=== PATIENT | female | born 1955 | race Caucasian/White ===

== ENCOUNTER 2023-04-04 15:34 | Emergency (ER) | payer MEDICARE, OTHER, SELFPAY ==
[2023-04-04 15:51] VITALS: BP 126/66; PULSE 80; RESP 18; TEMP 36.6; O2SAT 100; BMI 24.9
[2023-04-04 15:53] VITALS: BP 126/66; PULSE 68; RESP 17; O2SAT 100
--- NOTE | 2023-04-04 16:04 | XR_ITS ---
[address] [address] Patient Name: PRACHI WARD MRN: [id number] date: 1955 Sex: F Assigned Patient Location: ER Current Patient Location: ER Accession/Order Number: [id number] Exam Date: 04/04/2023 16:15 Report Date: 04/04/2023 16:43 At the request of: YASMINE FENTON Procedure: XR chest 1V EXAMINATION: XR chest 1V, , 04/04/2023 4:15 PM EDT INDICATION: Weakness HISTORY: Ordering Provider Reason for Exam: Weakness Technologist Note: Additional: COMPARISON: Chest x-ray 01/25/2023. TECHNIQUE: Chest x-ray: One view. FINDINGS: No pneumothorax, pleural effusion or focal airspace consolidation. Heart is normal in size. Bony thorax is unremarkable. IMPRESSION: No acute cardiopulmonary process. Electronically authenticated by: JIM REAVES Date: 04/04/2023 16:43
--- NOTE | 2023-04-04 16:04 | ECG_ITS ---
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
--- NOTE | 2023-04-04 16:05 | ED_ITS ---
HPI - Weakness General Chief complaint: Weakness Stated complaint: GENERAL WEAKNESS Time Seen by Provider: 04/04/23 15:54 Source: patient Mode of arrival: walk-in History of Present Illness HPI Narrative: patient is a 67-year-old female who presents to the emergency department for the evaluation of generalized weakness and feeling shaky for the last three days. She denies headache, visual changes, peripheral paresthesias. She states her muscles feel shaky. She has had no chest pain, shortness of breath, cough, congestion, fevers. She denies abdominal pain, vomiting. She was at a cookout and stated that she started to feel unwell. She had a non-STEMI three months ago and was transferred to [place], she did not have any stents or CABG performed. She was also started on oxygen by nasal cannula at that time. She wears 2 L of oxygen by nasal cannula chronically. per previous documentation from December of this year, patient was admitted to this facility for chronic obstructive pulmonary disease exacerbation, hyponatremia and sepsis and while admitted was found to have respiratory failure and non- STEMI, she was emergently intubated and sent to [facility] at that time. Related Data Home Medications Medication Instructions Recorded Confirmed aspirin 81 mg tablet,delayed 81 mg PO QDAY 04/04/23 04/04/23 release atorvastatin 20 mg tablet 20 mg PO .qhs 04/04/23 04/04/23 carvedilol 3.125 mg tablet 3.125 mg PO Q12H 04/04/23 04/04/23 dapagliflozin 5 mg tablet (Farxiga) 10 mg PO QDAY 04/04/23 04/04/23 sacubitril 24 mg-valsartan 26 mg 1 tab PO BID 04/04/23 04/04/23 tablet (Entresto) spironolactone 25 mg tablet 25 mg PO .qhs 04/04/23 04/04/23 Previous Rx's Medication Instructions Recorded ciprofloxacin HCl 500 mg tablet 500 mg PO BID 5 days #10 tabs 04/04/23 (Cipro) ondansetron 4 mg disintegrating 4 mg PO Q6H PRN nausea and 04/04/23 tablet vomiting #12 tabs Allergies Allergy/AdvReac Type Severity Reaction Status Date / Time No Known Drug Allergies Allergy Verified 04/04/23 15:50 Review of Systems ROS Constitutional Denies: fever or chills Ears, nose, mouth, and throat Denies: throat pain or neck pain Cardiovascular Denies: chest pain Respiratory Denies: shortness of breath or cough Gastrointestinal Denies: nausea or vomiting Musculoskeletal Reports: back pain Integumentary/Breast Denies: rash Neurological Denies: headache Psychiatric Reports: anxiety Allergic/Immunologic Denies: hives Exam Narrative Exam Narrative: Gen.: Awake, alert, in no distress Head: Normocephalic, atraumatic ENT: Moist mucous membranes Respiratory: No respiratory distress, lungs clear bilaterally Cardio: Regular rate and rhythm Gastrointestinal: Abdomen is soft, nondistended and nontender to palpation Extremities: Moves extremities equally Psych: Normal mood and affect Neuro: No focal neuro deficit Skin: Warm, dry, intact Constitutional Vital Signs - 24 hr 04/04/23 15:51 Temperature 97.9 F Pulse Rate [Monitor] 80 Respiratory Rate 18 Blood Pressure [Left Arm] 126/66 H Pulse Oximetry 100 Oxygen Delivery Method Nasal Cannula Course Vital Signs Vital signs: Vital Signs Temperature 97.9 F 04/04/23 15:51 Pulse Rate 80 04/04/23 15:51 Respiratory Rate 18 04/04/23 15:51 Blood Pressure 126/66 H 04/04/23 15:51 Pulse Oximetry 100 04/04/23 15:51 Oxygen Delivery Method Nasal Cannula 04/04/23 15:51 Temperature 97.9 F 04/04/23 15:51 Pulse Rate 80 04/04/23 15:51 Respiratory Rate 18 04/04/23 15:51 Blood Pressure 126/66 H 04/04/23 15:51 Pulse Oximetry 100 04/04/23 15:51 Oxygen Delivery Method Nasal Cannula 04/04/23 15:51 MDM - Weakness MDM Narrative Medical decision making narrative: patient was treated with IV fluids, Ativan with improvement. Lab studies show the patient has hyponatremia but not critical lab values, improved from previous. Her troponin, EKG are unremarkable and CT of the brain, chest x-ray show no evidence of acute process. Patient has a mild urinary tract infection which may account for her symptoms. She was visibly anxious as well and was given Ativan with improvement in the Emergency Room. She was instructed to follow-up with her PCP for further anxiety medication as needed. She will be startedd on Cipro, Zofran for urinary tract infection. Follow-up with PCP and return to the Emergency Room if symptoms change or worsen. Medical Records Attestation: I reviewed the patient's medical records. Lab Data Attestation: I reviewed the patient's lab results. Labs: Lab Results 04/04/23 04/04/23 04/04/23 Range/Units 16:00 16:19 17:40 WBC 8.8 (4.0-11.0) 10^3/uL RBC 3.75 L (4.20-5.40) 10^6/uL Hgb 9.0 L (12.0-16.0) g/dL Hct 29.0 L (36.0-48.0) % MCV 77.3 L (81.0-99.0) fL MCH 24.0 L (26.7-34.0) pg MCHC 31.0 (29.9-35.2) g/dL RDW 14.8 (11.0-15.0) % Plt Count 397 (150-450) 10^3/uL MPV 10.0 (9.5-13.5) fL Neut % (Auto) 60.2 (43.0-75.0) % Lymph % (Auto) 24.7 (20.5-60.0) % [place] % (Auto) 8.4 (1.7-12.0) % Eos % (Auto) 4.9 (0.9-7.0) % Baso % (Auto) 1.5 (0.2-2.0) % Neut # (Auto) 5.3 (1.4-6.5) 10^3/uL Lymph # (Auto) 2.2 (1.2-3.8) 10^3/uL [place] # (Auto) 0.7 (0.3-0.8) 10^3/uL Eos # (Auto) 0.4 (0.0-0.7) 10^3/uL Baso # (Auto) 0.1 (0.0-0.1) 10^3/uL Abs Immat Gran (auto) 0.03 (0.00-0.03) 10^3/uL Imm/Tot Granulo (auto) 0.3 (0.0-0.5) % Sodium 128 L (136-145) mmol/L Potassium 4.9 (3.5-5.1) mmol/L Chloride 96 L (98-107) mmol/L Carbon Dioxide 25.7 (21.0-32.0) mmol/L Anion Gap 11.2 BUN 13.0 (7.0-18.0) mg/dL Creatinine 0.99 (0.55-1.02) mg/dL Est GFR ( Amer) >60 (>=60) Est GFR (Non-Af Amer) 56 L (>=60) BUN/Creatinine Ratio 13.1 Glucose 100 (74-106) mg/dL Lactate 0.9 (0.4-2.0) mmol/L Calcium 9.3 (8.5-10.1) mg/dL Total Bilirubin 0.3 (0.2-1.0) mg/dL AST 25 (15-37) U/L ALT 63 H (14-59) U/L Alkaline Phosphatase 91 (46-116) U/L Troponin I High Sens 5.8 (4.0-51.3) pg/mL Total Protein 9.2 H (6.4-8.2) g/dL Albumin 3.1 L (3.4-5.0) g/dL Globulin 6.1 g/dL Albumin/Globulin Ratio 0.5 TSH 0.482 (0.358-3.740) uIU/mL Urine Color Lt. yellow (YELLOW) Urine Clarity Clear (CLEAR) Urine pH 6.0 (5.0-9.0) Ur Specific [place] <=1.005 A (1.005-1.025) Urine Protein Trace (NEG/TRACE) mg/dL Urine Glucose (UA) >=1000 A (NEGATIVE) mg/dL Urine Ketones Negative (NEGATIVE) mg/dL Urine Occult Blood Small A (NEGATIVE) Urine Nitrite Negative (NEGATIVE) Urine Bilirubin Negative (NEGATIVE) Urine Urobilinogen 0.2 (0.2-1.0) EU/dL Ur Leukocyte Esterase Negative (NEGATIVE) Urine RBC 2-5 A (0-2) #/HPF Urine WBC 2-5 A (NONE SEEN) #/HPF Ur Squamous Epith Cells Few A (NONE/RARE) #/LPF Urine Crystals None seen (None Seen) #/HPF Urine Bacteria Trace A (NONE SEEN) #/HPF Urine Casts None seen (NONE SEEN) #/LPF Urine Mucus None seen (NONE SEEN) Ur Culture Indicated? No Imaging Data CT scan - head: Attestation: I have reviewed the pertinent imaging results. Chest x-ray: Attestation: I have reviewed the pertinent imaging results. ECG Data Attestation: I personally reviewed and interpreted this ECG as follows: ECG interpretation date: 04/04/23 ECG interpretation time: 16:14 Discharge Plan Discharge Chief Complaint: Weakness Clinical Impression: Weakness, Acute UTI, Acute hyponatremia Patient Disposition: Home, Self-Care Time of Disposition Decision: 18:16 Condition: Good Prescriptions / Home Meds: New ciprofloxacin HCl [Cipro] 500 mg tablet 500 mg PO BID 5 Days Qty: 10 0RF ondansetron 4 mg tablet,disintegrating 4 mg PO Q6H PRN (Reason: nausea and vomiting) Qty: 12 0RF No Action aspirin 81 mg tablet,delayed release (DR/EC) 81 mg PO QDAY atorvastatin 20 mg tablet 20 mg PO .qhs carvedilol 3.125 mg tablet 3.125 mg PO Q12H Farxiga 5 mg tablet 10 mg PO QDAY spironolactone 25 mg tablet 25 mg PO .qhs Entresto 24-26 mg tablet 1 tab PO BID Instructions: Urinary Tract Infection in Women (ED), Hyponatremia (ED) Stand Alone Forms: Portal Instructions Referrals: BRIAN KIM [Primary Care Provider] - 1 week
--- NOTE | 2023-04-04 16:05 | CT_ITS ---
The [address] [address] Patient Name: PRACHI WARD MRN: [id number] date: 1955 Sex: F Assigned Patient Location: ER Current Patient Location: ER Accession/Order Number: [id number] Exam Date: 04/04/2023 16:15 Report Date: 04/04/2023 17:01 At the request of: YASMINE FENTON Procedure: CT head/brain wo con EXAMINATION: CT head/brain wo con, 04/04/2023 4:15 PM EDT HISTORY: Weakness COMPARISON: None. TECHNIQUE: CT scan of the head was performed without IV contrast. CT dose reduction technique was used, including Automated Exposure Control. FINDINGS: BRAIN PARENCHYMA/CSF SPACES: Ventricles are normal in size and configuration. Mild low density within the periventricular white matter suggestive of chronic small vessel ischemia. There is no hemorrhage, mass effect or midline shift. There are no other significant findings. PARANASAL SINUSES: There are air-fluid levels in the sphenoid sinuses bilaterally consistent with acute sinusitis. SKULL BASE AND CALVARIUM: Normal. EXTRACRANIAL SOFT TISSUES: Normal. IMPRESSION: 1. No acute intracranial abnormality. 2. Mild acute sphenoid sinusitis. Electronically authenticated by: FREDDY MORENO Date: 04/04/2023 17:01
[2023-04-04 16:18] LABS: Basophils Absolute Auto 0.1 10^3/uL (0.0-0.1); Basophils Percent Auto 1.5 % (0.2-2.0); Eosinophils Absolute Auto 0.4 10^3/uL (0.0-0.7); Eosinophils Percent Auto 4.9 % (0.9-7.0); Immature Granulocytes Abs Auto 0.03 10^3/uL (0.00-0.03); Immature Granulocytes Pct Auto 0.3 % (0.0-0.5); Lymphocytes Absolute Auto 2.2 10^3/uL (1.2-3.8); Lymphocytes Percent Auto 24.7 % (20.5-60.0); Mean Corpuscular Volume 77.3 fL (81.0-99.0); Monocytes Absolute Auto 0.7 10^3/uL (0.3-0.8); Monocytes Percent Auto 8.4 % (1.7-12.0); Neutrophils Absolute Auto 5.3 10^3/uL (1.4-6.5); Neutrophils Percent Auto 60.2 % (43.0-75.0); Platelet Count 397 10^3/uL (150-450); Red Blood Count 3.75 10^6/uL (4.20-5.40); Red Cell Distribution Width 14.8 % (11.0-15.0); White Blood Count 8.8 10^3/uL (4.0-11.0)
[2023-04-04 16:38] LABS: Alanine Aminotransferase 63 U/L (14-59); Albumin Globulin Ratio 0.5; Albumin Level 3.1 g/dL (3.4-5.0); Alkaline Phosphatase 91 U/L (46-116); Anion Gap 11.2; Aspartate Amino Transferase 25 U/L (15-37); BUN Creatinine Ratio 13.1; Bilirubin Total 0.3 mg/dL (0.2-1.0); Calcium 9.3 mg/dL (8.5-10.1); Carbon Dioxide 25.7 mmol/L (21.0-32.0); Chloride 96 mmol/L (98-107); Estimated GFR (African America >60 (>=60); Estimated GFR (Non-African Ame 56 (>=60); Globulin 6.1 g/dL; Glucose 100 mg/dL (74-106); Potassium 4.9 mmol/L (3.5-5.1); Sodium 128 mmol/L (136-145); Thyroid Stimulating Hormone 0.482 uIU/mL (0.358-3.740); Total Protein 9.2 g/dL (6.4-8.2); Troponin I High Sensitivity 5.8 pg/mL (4.0-51.3)
[2023-04-04 16:41] LABS: Lactate/Lactic Acid 0.9 mmol/L (0.4-2.0)
[2023-04-04] MEDS: LORAZEPAM 2 MG/ML 1 ML VIAL 0.5 MG IV (16:58)
[2023-04-04] MEDS: 0.9 % SODIUM CHLORIDE 1,000 ML 500 ML IV (16:58)
--- NOTE | 2023-04-04 17:42 | PC.NURSE ---
ua sent to lab
[2023-04-04 17:50] LABS: Bilirubin Urine NEGATIVE (NEGATIVE); Blood Urine SMALL (NEGATIVE); Clarity Urine CLEAR (CLEAR); Color Urine LT. YELLOW (YELLOW); Glucose Urine UA >=1000 mg/dL (NEGATIVE); Ketones Urine NEGATIVE (NEGATIVE); Leukocyte Esterase Urine NEGATIVE (NEGATIVE); Nitrite Urine NEGATIVE (NEGATIVE); Protein Urine TRACE mg/dL (NEG/TRACE); Specific Gravity Urine <=1.005 (1.005-1.025); Urobilinogen Urine 0.2 EU/dL (0.2-1.0)
[2023-04-04 17:51] LABS: Urine Microscopic Indicated YES
[2023-04-04 17:58] LABS: Bacteria Urine TRACE #/HPF (NONE SEEN); Mucus Urine NONE SEEN (NONE SEEN)
[2023-04-04 17:59] LABS: Cast Seen? NONE SEEN #/LPF (NONE SEEN); Crystals Seen? None Seen #/HPF (None Seen); Squamous Epithelial Cell Urine FEW #/LPF (NONE/RARE); Urine Culture Indicated NO
[2023-04-04] MEDS: CIPROFLOXACIN HCL 500 MG TABLET PO (18:42)
== END 2023-04-04 18:44 | disposition home or self-care (01) ==
PROVIDERS: Physician Assistant; Emergency Provider Emergency Medicine Emergency Medical Services; PCP Nurse Practitioner Family
DX: N39.0 Urinary tract infection, site not specified (principal); R53.1 Weakness; E87.1 Hypo-osmolality and hyponatremia; I25.2 Old myocardial infarction; Z99.81 Dependence on supplemental oxygen; J44.9 Chronic obstructive pulmonary disease, unspecified; Z79.82 Long term (current) use of aspirin; Z79.899 Other long term (current) drug therapy
CPT/HCPCS: 36415; 70450; 71045; 80053; 81003; 81015; 83605; 84443; 84484; 85025; 93005; 96374; 99285

== ENCOUNTER 2023-04-27 15:47 | Outpatient (OUT) | payer MEDICARE, OTHER, SELFPAY ==
[2023-04-27 16:13] LABS: Anion Gap 11.2; Calcium 9.6 mg/dL (8.5-10.1); Carbon Dioxide 27.8 mmol/L (21.0-32.0); Chloride 93 mmol/L (98-107); Estimated GFR (African America >60 (>=60); Estimated GFR (Non-African Ame >60 (>=60); Glucose 105 mg/dL (74-106); Sodium 127 mmol/L (136-145)
== END 2023-04-27 15:48 | disposition home or self-care (01) ==
LOC: LAB 15:49
PROVIDERS: PCP Nurse Practitioner Family; Visit Provider Internal Medicine Cardiovascular Disease
DX: I11.0 Hypertensive heart disease with heart failure (principal); I50.9 Heart failure, unspecified
CPT/HCPCS: 36415; 80048

== ENCOUNTER 2023-05-09 12:43 | Outpatient (OUT) | payer MEDICARE, OTHER, SELFPAY ==
--- NOTE | 2023-05-09 13:49 | CA_ITS ---
Patient: PRACHI WARD Exam Date: 05/09/2023 : 1955 Gender:F Ordering : MRS. ANTONIO DELGADO NP Admission #: [id number] Family : Order #: [id number] CLICK HERE TO VIEW EXAM ECHOCARDIOGRAM REPORT PROCEDURE: CA ECHO LIMITED INDICATIONS: Chronic systolic heart failure COMPARISON: None. DESCRIPTION: Limited ECHOCARDIOGRAM Real-time transthoracic echocardiography with 2D and M-mode performed. QUALITY: Technical quality was good. LEFT VENTRICLE: Normal chamber size. No left ventricular hypertrophy. Global left ventricular systolic function is normal. LV EF: Calculated left ventricular ejection fraction is 56% DIASTOLIC: ATRIAL SEPTUM: LEFT ATRIUM: Normal chamber size. RIGHT ATRIUM: Normal chamber size. RIGHT VENTRICLE: Normal chamber size. Normal right ventricular systolic function. TRICUSPID VALVE: Normal mobility and thickness. MITRAL VALVE: Normal mobility and thickness. AORTIC VALVE: Normal trileaflet appearance. Normal leaflet mobility. AORTIC ROOT: Normal diameter and appearance. PULMONIC VALVE: Normal thickness and mobility. PERICARDIUM: No evidence of pericardial effusion. IVC: Collapses with inspirations. Normal size. PLEURA: CONCLUSION: 1. Normal ventricular systolic function. LVEF is estimated at 55 to 60%. 2. No evidence of pericardial effusion. 3. Limited study performed with no Doppler interrogation of the valves as requested. Adult Echocardiography Procedure Report Left Ventricle LVEDD (3.7 - 5.6 cm): 4.73 cm LVESD (2.2 - 4.0 cm): 3.15 cm LVIVS thickness (0.6 - 1.2 cm): 0.96 cm LVPW thickness (0.5 - 1.0 cm): 0.77 cm LVOT Diameter 1.96 cm Left Ventricular Ejection Fraction: 56.39 % Left Atrium LA Volume Index (2D A2C): 29.03 ml/m2 Left Atrium Systolic Dimension: 4.24 cm Mitral Valve Right Ventricle RV Internal Diastolic Dimension: 3.38 cm Aorta AO Root Diam: 3.09 cm Ascending Ao Diam: 2.80 cm Aortic Valve Tricuspid Valve Pulmonic Valve Right Atrium Right Atrium Systolic Pressure: 30.92 ml, 30.92 ml Dictated by: Francisco Regalado M.D. on 05/09/2023 at 17:45 Approved by: Francisco Regalado M.D. on 05/09/2023 at 17:47
== END 2023-05-09 12:44 | disposition home or self-care (01) ==
LOC: CARD 12:43
PROVIDERS: PCP Nurse Practitioner Family; Visit Provider Nurse Practitioner Acute Care
DX: I50.22 Chronic systolic (congestive) heart failure (principal)
CPT/HCPCS: 93308; 93356

== ENCOUNTER 2023-06-27 14:32 | Outpatient (OUT) | payer MEDICARE, OTHER, SELFPAY ==
[2023-06-27 15:08] LABS: Hematocrit 24.4 % (36.0-48.0); Hemoglobin 7.3 g/dL (12.0-16.0); Mean Corpuscular HGB Conc 29.9 g/dL (29.9-35.2); Mean Corpuscular Hemoglobin 22.8 pg (26.7-34.0); Mean Corpuscular Volume 76.3 fL (81.0-99.0); Mean Platelet Volume 9.7 fL (9.5-13.5); Platelet Count 412 10^3/uL (150-450); Red Cell Distribution Width 14.6 % (11.0-15.0); White Blood Count 6.7 10^3/uL (4.0-11.0)
[2023-06-27 15:16] LABS: Anisocytosis 1+; Atypical Lymphocytes Abs Man 0.5; Basophils Abs Manual 0.06 10^3/uL (0.00-0.10); Eosinophils Absolute Manual 0.13 10^3/uL (0.00-0.70); Lymphocytes Absolute Manual 1.34 10^3/uL (1.20-3.80); Monocytes Absolute Manual 0.67 10^3/uL (0.30-0.80); Segmented Neut Absolute Manual 4.02 10^3/uL (1.4-6.5)
[2023-06-27 16:36] LABS: Alanine Aminotransferase 53 U/L (14-59); Albumin Globulin Ratio 0.5; Albumin Level 2.8 g/dL (3.4-5.0); Alkaline Phosphatase 95 U/L (46-116); Anion Gap 11.3; Aspartate Amino Transferase 9 U/L (15-37); BUN Creatinine Ratio 14.6; Bilirubin Total 0.3 mg/dL (0.2-1.0); Calcium 8.9 mg/dL (8.5-10.1); Carbon Dioxide 26.9 mmol/L (21.0-32.0); Chloride 93 mmol/L (98-107); Estimated GFR (African America >60 (>=60); Estimated GFR (Non-African Ame 58 (>=60); Glucose 110 mg/dL (74-106); Lactate Dehydrogenase 133 U/L (81-234); Potassium 4.2 mmol/L (3.5-5.1); Sodium 127 mmol/L (136-145); Total Protein 8.8 g/dL (6.4-8.2)
[2023-06-27 16:37] LABS: Percent Iron Saturation 6.4 %
[2023-11-20 13:42] LABS: Reticulocyte Count 0.94 % (0.60-3.10)
== END 2023-06-27 14:33 | disposition home or self-care (01) ==
LOC: LAB 14:34
PROVIDERS: PCP Nurse Practitioner Family; Visit Provider Internal Medicine
DX: N28.89 Other specified disorders of kidney and ureter (principal)
CPT/HCPCS: 36415; 80053; 82607; 82668; 82728; 82746; 83540; 83550; 83615; 85027; 85045

== ENCOUNTER 2023-07-18 11:41 | Outpatient (OUT) | payer MEDICARE, OTHER, SELFPAY ==
--- NOTE | 2023-07-18 11:47 | CT_ITS ---
The [address] [address] Patient Name: PRACHI WARD MRN: [id number] date: 1955 Sex: F Assigned Patient Location: CT Current Patient Location: CT Accession/Order Number: [id number] Exam Date: 07/18/2023 13:00 Report Date: 07/18/2023 13:52 At the request of: BARBARA MONTES DE OCA Procedure: CT abdomen pelvis w con CT abdomen pelvis w con, 07/18/2023 1:00 PM EDT INDICATION: Renal Mass N28.89 COMPARISON: There is no appropriate prior study for comparison. TECHNIQUE: Axial images of the abdomen were obtained after the administration of IV contrast. Multiplanar reformatted images were generated and reviewed as needed. Dose reduction techniques were achieved by using automated exposure control and/or adjustment of mA and/or kV according to patient size and/or use of iterative reconstruction technique. FINDINGS: Lungs: The base of lungs is clear. No pleural effusion is noted. Liver and gallbladder: The liver is unremarkable. No enlargement of intra or extrahepatic biliary ducts. There is distention of the gallbladder measuring approximately 13 cm craniocaudally with no evidence of adjacent fatty stranding, wall thickening or cholelithiasis. Genitourinary system: No hydronephrosis. No nephrolithiasis. There is a heterogeneous enhancing lesion within the mid to inferior portion of the right kidney measuring approximately 10.5 x 9.1 x 15 centimeter (AP, transverse, cc) highly suspicious for renal cell carcinoma. This mass extends to the right renal vein and into the IVC superiorly. No definite enhancing lesion within the inferior portion of the IVC in the delayed images is noted. No involvement of the left renal vein is noted. No definite adjacent lymphadenopathy. The uterus is unremarkable. Other solid abdominal organs: adrenal glands, pancreas, and spleen are unremarkable. The left adrenal gland is mildly thickened. Aorta: The infrarenal abdominal aorta is nonaneurysmal. Free fluid: There is no free fluid in the abdomen pelvis. Lymph node: No lymph node enlargement by size criteria is noted. Stomach and Bowel: Moderate hiatal hernia is noted. No abnormality of small or large bowel is noted. Bone: There is no suspicious osteolytic or osteoblastic lesion. Lumbar spine, and SI and femoral acetabular joints moderate degenerative changes are noted. There are subchondral cysts within the acetabulum bilaterally. CT/CT abdomen pelvis w con IMPRESSION: Large renal lesion with extension to the right renal vein and IVC highly suspicious for renal cell carcinoma. No adjacent lymphadenopathy is noted. The left renal vein is patent. Gallbladder distention without gallbladder wall thickening or adjacent inflammatory process. No cholelithiasis is noted. However, given the extensive extension of gallbladder, clinical correlation is advised for acalculus cholecystitis. Electronically authenticated by: KERI TOUSSAINT Date: 07/18/2023 13:52
== END 2023-07-18 11:42 | disposition home or self-care (01) ==
LOC: CT 11:41
PROVIDERS: PCP Nurse Practitioner Family; Visit Provider Internal Medicine
DX: N28.89 Other specified disorders of kidney and ureter (principal)
CPT/HCPCS: 74177; Q9967

== ENCOUNTER 2023-08-31 13:21 | Outpatient (OUT) | payer MEDICARE, OTHER, SELFPAY ==
--- NOTE | 2023-08-31 | ECG_ITS ---
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
[2023-08-31 14:13] LABS: Basophils Absolute Auto 0.1 10^3/uL (0.0-0.1); Basophils Percent Auto 1.4 % (0.2-2.0); Eosinophils Absolute Auto 0.2 10^3/uL (0.0-0.7); Eosinophils Percent Auto 2.3 % (0.9-7.0); Hematocrit 25.5 % (36.0-48.0); Hemoglobin 7.6 g/dL (12.0-16.0); Immature Granulocytes Abs Auto 0.03 10^3/uL (0.00-0.03); Immature Granulocytes Pct Auto 0.4 % (0.0-0.5); Lymphocytes Absolute Auto 1.4 10^3/uL (1.2-3.8); Lymphocytes Percent Auto 20.4 % (20.5-60.0); Mean Corpuscular HGB Conc 29.8 g/dL (29.9-35.2); Mean Corpuscular Hemoglobin 24.9 pg (26.7-34.0); Mean Corpuscular Volume 83.6 fL (81.0-99.0); Mean Platelet Volume 8.7 fL (9.5-13.5); Monocytes Absolute Auto 0.7 10^3/uL (0.3-0.8); Monocytes Percent Auto 10.1 % (1.7-12.0); Neutrophils Absolute Auto 4.6 10^3/uL (1.4-6.5); Neutrophils Percent Auto 65.4 % (43.0-75.0); Platelet Count 354 10^3/uL (150-450); Red Blood Count 3.05 10^6/uL (4.20-5.40); Red Cell Distribution Width 19.8 % (11.0-15.0)
[2023-08-31 14:14] LABS: Bilirubin Urine NEGATIVE (NEGATIVE); Blood Urine LARGE (NEGATIVE); Clarity Urine CLEAR (CLEAR); Color Urine LT. YELLOW (YELLOW); Glucose Urine UA NEGATIVE (NEGATIVE); Ketones Urine NEGATIVE (NEGATIVE); Leukocyte Esterase Urine SMALL (NEGATIVE); Nitrite Urine NEGATIVE (NEGATIVE); Protein Urine 100 mg/dL (NEG/TRACE); Specific Gravity Urine 1.015 (1.005-1.025); Urobilinogen Urine 0.2 EU/dL (0.2-1.0)
[2023-08-31 14:47] LABS: Alanine Aminotransferase 51 U/L (14-59); Albumin Globulin Ratio 0.5; Albumin Level 2.7 g/dL (3.4-5.0); Alkaline Phosphatase 102 U/L (46-116); Anion Gap 10.1; Aspartate Amino Transferase 28 U/L (15-37); BUN Creatinine Ratio 10.5; Bilirubin Total 0.3 mg/dL (0.2-1.0); Calcium 8.8 mg/dL (8.5-10.1); Chloride 94 mmol/L (98-107); Estimated GFR (African America >60 (>=60); Estimated GFR (Non-African Ame >60 (>=60); Globulin 5.8 g/dL; Glucose 106 mg/dL (74-106); Potassium 4.1 mmol/L (3.5-5.1); Sodium 128 mmol/L (136-145); Total Protein 8.5 g/dL (6.4-8.2)
== END 2023-08-31 13:22 | disposition home or self-care (01) ==
LOC: CARD 13:23
PROVIDERS: PCP Nurse Practitioner Family; Visit Provider Internal Medicine
DX: C64.9 Malignant neoplasm of unspecified kidney, except renal pelvis (principal)
CPT/HCPCS: 36415; 80053; 81003; 85025; 93005

== ENCOUNTER 2023-10-19 13:39 | Emergency (ER) | payer MEDICARE, OTHER, SELFPAY ==
[2023-10-19] VITALS (31 sets, daily range): BP systolic 126–175; BP diastolic 84–123; PULSE 100–140; RESP 12–27; TEMP 36.5; O2SAT 95–100; BMI 23.3
--- OUTSIDE RECORDS SUMMARY | 2023-10-19 13:53 | XMS_ITS | CCD ---
Author Name Unknown Address [address] [facility] [address] [place] [id number] Organization [facility] Care Team Providers Care Cable Tool Operator Name Role Phone Chantal Park Attending Unavailable JULIO, NEDRA Referring Unavailable Chantal Park Attending Unavailable CHRISTI, DR FREDDY Mcclendon Consulting Unavailable MISC, DR VERDIN Primary Care Unavailable CITLALI ., DOMINGA Attending Unavailable CITLALI ., DOMINGA Admitting Unavailable SAMSA ., ISMAEL Consulting Unavailable CITLALI ., DOMINGA Procedure Practitioner Unavailab le SAMSA ., ISMAEL Procedure Practitioner Unavailab le JEREMY ., JASON Consulting Unavailable RAKESH, STEPHANIE Consulting Unavailable FALVO, BASHIR Consulting Unavailable SISTER, BUCKY Consulting Unavailable JAVED, CHERRYER Consulting Unavailable CITLALI ., DOMINGA Consulting Unavailable FEIDER, ANTONY Consulting Unavailable MANASA HERNDON Consulting Unavailable MISC, DR VERDIN Admitting Unavailable MISC, DR VERDIN Attending Unavailable MISC, DR VERDIN Consulting Unavailable MISC, DR VERDIN Primary Care Unavailable MISC, DR VERDIN Admitting Unavailable MISC, DR VERDIN Attending Unavailable MISC, DR VERDIN Consulting Unavailable MISC, DR VERDIN Primary Care Unavailable DO Aries Chavez II Attending Provider Daniel, [facility] Primary Care Provider Self, Referral Referring Provider Unavailable DO Aries Chavez II Attending Provider Julio, [facility] Primary Care Provider Self, Referral Referring Provider Unavailable DO Aries Chavez II Attending Provider Julio, [facility] Primary Care Provider [phone] Self, Referral Referring Provider Unavailable Daniel, [facility] Primary Care Provider [phone] DO Aries Chavez II J Attending Provider Self, Referral Referring Provider Unavailable Self, Referral Referring Provider Unavailable Self, Referral Referring Provider Unavailable Nedra Perez Primary Care Unavailable Lennyfernando II, Aries Guzman Admitting Unavaila ble Adamowicz II, Aries Guzman Attending Unavaila ble Nedra Perez Primary Care Unavailable Lennyicz II, Aries Guzman Admitting Unavaila ble Adamowicz II, Aries Guzman Attending Unavaila ble Self, Referral Referring Unavailable MADDIE ANN Attending Unavailable ALI, GREENWOOD Referring Unavailable ALI, GREENWOOD Referring Unavailable ROBBI HENDERSON Referring Unavailable ALI, GREENWOOD Referring Unavailable ALI, GREENWOOD Referring Unavailable SAFI, ALEX Referring Unavailable ALI, GREENWOOD Referring Unavailable SELF, REFERRED Referring Unavailable SAFI, ALEX Admitting Unavailable DIANA MEYERS Attending Unavailable ALI, GREENWOOD Referring Unavailable ANTONIO DELGADO Attending Unavailable ALI, GREENWOOD Referring Unavailable PEDRO LUIS FRENCH Attending Unavailable ANTONIO DELGADO Attending Unavailable AMMY BRIDGES Attending Unavailable ANTONIO DELGADO Attending Unavailable Allergies Allergy Classification Reported Allergen(s) Allergy Type Date of Onset Reaction(s) Facility (8 sources) Erythromycin Drug Allergy 01-24-2023 Diarrhea [facility] Repository (1 source) Erythromycin Drug Allergy 09-12-2023 [facility] Repository (1 source) Erythromycin; Translations: [ERYTHROMYCIN] Drug Allergy 01-25-2023 [facility] Repository Medications Current Medications Medication Drug Class(es) Dates Sig (Normalized) Sig (Original) atorvastatin 20 mg oral tablet (7 sources) HMG-CoA Reductase Inhibitor Start: 06-21-2023 take 20 mg by mouth once daily at bedtime Atorvastatin Active 20 MG PO Daily at bedtime June 20, 2023 11:00pm axitinib 5 mg oral tablet (3 sources) Kinase Inhibitor Start: 09-07-2023 take 1 tablet by mouth twice daily Axitinib (Inlyta) 5 mg Tablet Active 5 MG PO Twice daily 60 September 07, 2023 12:00am escitalopram 5 mg oral tablet (7 sources) Serotonin Reuptake Inhibitor Start: 06-21-2023 take 5 mg by mouth once daily in the morning Escitalopram Oxalate Active 5 MG PO Every morning June 20, 2023 11:00pm famotidine 20 mg oral tablet (6 sources) Histamine-2 Receptor Antagonist Start: 07-31-2023 take 20 mg by mouth once daily Famotidine Active 20 MG PO Daily July 30, 2023 11:00pm 120 actuat formoterol fumarate 0.0048 mg/actuat / glycopyrrolate 0.009 mg/actuat metered dose inhaler (4 sources) beta2-Adrenergic Agonist Start: 08-28-2023 Glycopyrrolate-For moterol (Bevespi Aerosphere) 9-4.8 mcg Hfa Aerosol Inhaler Active 2 PUFF INHALATION Twice daily August 28, 2023 12:00am 24 hr metoprolol succinate 25 mg extended release oral tablet (7 sources) beta-Adrenergic [place] Start: 06-21-2023 Metoprolol Succinate Active 25 MG PO As Directed June 20, 2023 11:00pm Tiotropium-Olodaterol (6 sources) Anticholinergic, beta2-Adrenergic Agonist Start: 07-31-2023 Tiotropium-Olodate rol (Stiolto Respimat) 2.5-2.5 mcg/actuation Mist Active 2 PUFF INHALATION Daily July 30, 2023 11:00pm Start: 07-31-2023 Tiotropium-Olo daterol (Stiolto Respimat) 2.5-2.5 mcg/actuation Mist Active 2 PUFF INHALATION Daily July 31, 2023 12:00am pantoprazole 40 mg delayed release oral tablet (7 sources) Proton Pump Inhibitor Start: 06-21-2023 take 40 mg by mouth once daily Pantoprazole Active 40 MG PO Daily June 20, 2023 11:00pm sacubitril 24 mg / valsartan 26 mg oral tablet (7 sources) Angiotensin 2 Receptor [place] Start: 06-21-2023 take 1 tablet by mouth twice daily Sacubitril-Valsarta n (Entresto) 24-26 mg tablet Active 1 TAB PO Twice daily June 20, 2023 11:00pm spironolactone 25 mg oral tablet (7 sources) Aldosterone Antagonist Start: 06-21-2023 Spironolactone Active 12.5 MG PO As Directed June 20, 2023 11:00pm sulfamethoxazole 800 mg / trimethoprim 160 mg oral tablet (8 sources) Dihydrofolate Reductase Inhibitor Antibacterial, Sulfonamide Antimicrobial Start: 09-19-2023 take 1 tablet by mouth twice daily Sulfamethoxazole-Tr imethoprim (Bactrim Ds) 800-160 mg Tablet Active 1 TAB PO Twice daily September 19, 2023 12:00am Start: 07-31-2023 End: 09-12-2023 take 1 tablet by mouth twice daily Sulfamethoxazole-Trimethoprim (Bactrim D s) 800-160 mg Tablet Discontinued 1 TAB PO Twice daily July 30, 2023 11:00pm September 12, 2023 12:50pm Completed/Discontinued Medications Medication Drug Class(es) Dates Sig (Normalized) Sig (Original) loratadine 10 mg oral tablet (7 sources) Start: 06-21-2023 End: 06-23-2023 take 10 mg by mouth once daily Loratadine Discontinued 10 MG PO Daily June 20, 2023 11:00pm June 23, 2023 12:28pm Problems Active Problems Problem Classification Problem Date Documented Date Episodic/Chronic Acute myocardial infarction (1 source) Non-ST elevation (NSTEMI) myocardial infarction; Translations: [NON-ST ELEVATION MYOCARDIAL INFARCT] Onset: 02-02-2023 Chronic Allergic reactions (1 source) Allergy status to other antibiotic agents status; Translations: [ALLERGY STATUS OTH ANTIBIOTIC AGENT] Onset: 02-02-2023 Episodic Anxiety disorders (1 source) Anxiety disorder, unspecified; Translations: [ANXIETY DISORDER UNSPECIFIED] Onset: 02-02-2023 Chronic Cancer of kidney and renal pelvis (4 sources) Clear cell carcinoma of kidney; Translations: [Malignant neoplasm of unspecified kidney, except renal pelvis] 09-05-2023 Chronic Cardiac dysrhythmias (1 source) Tachycardia, unspecified; Translations: [TACHYCARDIA UNSPECIFIED] Onset: 02-02-2023 Episodic Chronic obstructive pulmonary disease and bronchiectasis (2 sources) Chronic obstructive pulmonary disease with (acute) exacerbation; Translations: [Chronic obstructive pulmonary disease with (acute) lower respiratory infection] Onset: 02-02-2023 Chronic Congestive heart failure; nonhypertensive (13 sources) Acute on chronic systolic (congestive) heart failure; Translations: [Acute systolic (congestive) heart failure] Onset: 01-25-2023 Chronic Coronary atherosclerosis and other heart disease (4 sources) Atherosclerotic heart disease of [place] coronary artery without angina pectoris; Translations: [Acute ischemic heart disease, unspecified] Onset: 01-25-2023 Chronic Deficiency and other anemia (1 source) Iron deficiency anemia secondary to blood loss (chronic); Translations: [Iron deficiency anemia secondary to blood loss (chronic)] Onset: 10-05-2023 Chronic Deficiency and other anemia (10 sources) Iron deficiency anemia; Translations: [Iron deficiency anemia, unspecified] 2023 Episodic Deficiency and other anemia (2 sources) Iron deficiency anemia, unspecified; Translations: [Iron deficiency anemia, unspecified] Onset: 10-05-2023 10-05-2023 Episodic Essential hypertension (2 sources) Essential (primary) hypertension; Translations: [Essential (primary) hypertension] Onset: 01-25-2023 Chronic Fluid and electrolyte disorders (3 sources) Hypo-osmolality and hyponatremia; Translations: [Hyponatremia] Onset: 02-02-2023 10-05-2023 Episodic Hypertension with complications and secondary hypertension (2 sources) Hypertensive heart disease with heart failure; Translations: [Hypertensive heart disease with heart failure] Onset: 10-12-2023 Chronic Maintenance chemotherapy; radiotherapy (2 sources) Patient encounter status; Translations: [Encounter for antineoplastic chemotherapy] 10-05-2023 Chronic Nausea and vomiting (1 source) Nausea; Translations: [NAUSEA] Onset: 02-02-2023 Episodic Other diseases of kidney and ureters (7 sources) Renal mass; Translations: [Other specified disorders of kidney and ureter] Onset: 07-26-2023 07-11-2023 Chronic Other diseases of kidney and ureters (8 sources) Other specified disorders of kidney and ureter; Translations: [Unspecified disorder of kidney and ureter] Onset: 05-18-2023 07-31-2023 Chronic Other diseases of kidney and ureters (1 source) Other specified disorders of kidney and ureter; Translations: [Other specified disorders of kidney and ureter] Onset: 08-22-2023 Episodic Other upper respiratory infections (1 source) Acute upper respiratory infection, unspecified; Translations: [ACUTE UP RESPIRATORY INFECTION UNS] Onset: 02-02-2023 Episodic Pneumonia (except that caused by tuberculosis or sexually transmitted disease) (1 source) Parainfluenza virus pneumonia; Translations: [PARAINFLUENZA VIRUS PNEUMONIA] Onset: 02-02-2023 Episodic Residual codes; unclassified (1 source) Family history of ischemic heart disease and other diseases of the circulatory system; Translations: [FAM HX ISCHEMIC HRT DZ OTH DZ CIRC] Onset: 02-02-2023 Episodic Residual codes; unclassified (1 source) Family history of diabetes mellitus; Translations: [FAMILY HISTORY OF DIABETES MELLITUS] Onset: 02-02-2023 Episodic Residual codes; unclassified (1 source) Family history of epilepsy and other diseases of the nervous system; Translations: [FAM HX EPILEPSY OTH DZ NERV SYS] Onset: 02-02-2023 Episodic Residual codes; unclassified (1 source) Family history of other infectious and parasitic diseases; Translations: [FAM HX OTH INFECTIOUS PARASITIC DZ] Onset: 02-02-2023 Episodic Septicemia (except in labor) (3 sources) Other specified sepsis; Translations: [OTHER SPECIFIED SEPSIS] Onset: 01-24-2023 Episodic Shock (1 source) Cardiogenic shock; Translations: [CARDIOGENIC SHOCK] Onset: 02-02-2023 Episodic Substance-related disorders (1 source) Nicotine dependence, cigarettes, uncomplicated; Translations: [NICOTINE DEPEND CIGARETTES UNCOMP] Onset: 02-02-2023 Chronic Tuberculosis (1 source) Personal history of tuberculosis; Translations: [PERSONAL HISTORY OF TUBERCULOSIS] Onset: 02-02-2023 Episodic Unclassified (1 source) OTHER ACIDOSIS; Translations: [OTHER ACIDOSIS] Onset: 02-02-2023 Unclassified (1 source) CONTACT W/AND (SUSP) EXPOS COVID-19; Translations: [CONTACT W/AND (SUSP) EXPOS COVID-19] Onset: 02-02-2023 Past or Other Problems Problem Classification Problem Date Documented Da te Episodic/Chronic Other lower respiratory disease (2 sources) Other forms of dyspnea; Translations: [Other forms of dyspnea] Onset: 01-25-2023 Episodic Respiratory failure; insufficiency; arrest (adult) (6 sources) Acute respiratory failure with hypoxia; Translations: [Acute respiratory failure with hypercapnia] Onset: 01-25-2023 Episodic Viral infection (3 sources) Other viral agents as the cause of diseases classified elsewhere; Translations: [Other viral infections of unspecified site] Onset: 01-25-2023 Episodic Results Test Name Value Interpretation Reference Range Facility Office Visiton 10-12-2023 Follow-up visit [id number] FredPerla A 1955 F Date Provider Department Center 10/12/2023 PEDRO LUIS RIVERA [facility] Family History Problem Relation Age of Onset Tuberculosis Mother Heart attack Brother Heart failure Maternal Grandmother Heart attack Maternal Grandfather Family Status - Relation Status Age at Mother Brother Maternal Grandmother Maternal Grandfather Level of Service:38931 MS OFFICE/OUTPATIENT ESTABLISHED LOW MDM 20 MIN Reason for Visit and Comments: Congestive Heart Failure [127] Coronary Artery Disease [187] Hypertension [728789] Normal [facility] Ferritinon 10-05-2023 Ferritin [Mass/Vol] 994.8 ng/mL High 11.0-306.8 [facility] Comment on above: Result Comment: PERF ORMED BY: [place] [address] PATHOLOGIST [employer] ARCHITECT STEFANO HOLT M.D. Performed By: #### F ER, CBC, CMP, FE and TIBC #### [facility] [address] [place] [id number] [facility] Ferritin [Mass/volume] in Se rum or PlasmaOrdered By: Vannessa Perales on 10-05-2023 Ferritin [Mass/Vol] 994.8 ng/mL 11.0-306.8 [facility] Iron [Mass/volume] in Serum or PlasmaOrdered By: Vannessa Perales on 10-05-2023 Iron [Mass/Vol] 26 ug/dL 50-212 [facility] Iron and TIBC Profileon % Iron Saturation 10.9 % Low 20-50 [facility] Comment on above: Performed By: #### F ER, CBC, CMP, FE and TIBC #### [facility] [address] [id number] [facility] Iron [Mass/Vol] 26 ug/dL Low 50-212 [facility] Comment on above: Performed By: #### F ER, CBC, CMP, FE and TIBC #### [facility] [address] [place] [address] [facility] Total Iron Binding Capacity 239 ug/dL Low 255-450 [facility] Comment on above: Performed By: #### F ER, CBC, CMP, FE and TIBC #### [address] Transferrin [Mass/Vol] 171 mg/dL Low 203-362 [facility] Comment on above: Performed By: #### F ER, CBC, CMP, FE and TIBC #### [place] [id number] [facility] Iron binding capacity [Mass/ volume] in Serum or PlasmaOrdered By: Vannessa Perales on 10-05-2023 Iron binding capacity [Mass/Vol] 239 ug/dL 255-450 [facility] Iron saturation [Mass Fracti on] in Serum or PlasmaOrdered By: Vannessa Perales on 10-05-2023 Iron saturation [Mass fraction] 10.9 % 20-50 [facility] Transferrin [Mass/volume] in Serum or PlasmaOrdered By: Vannessa Perales on 10-05-2023 Transferrin [Mass/Vol] 171 mg/dL 203-362 [facility] Adrenocorticotropic Hormone PLon 10-04-[address] 25.4 pg/mL Normal 7.2-63.3 [facility] Comment on above: Result Comment: ACTH reference interval for samples collected between 7 and 10 AM. Performed at: - [address] [id number] Credit Risk Manager: Juan Hendricks PhD, Phone: [phone] PERFORMED BY: [place] [address] PATHOLOGIST [employer] ARCHITECT STEFANO HOLT M.D. Performed By: #### F ER, CBC, CMP, FE and TIBC #### [address] Alanine aminotransferase [En zymatic activity/volume] in Serum or PlasmaOrdered By: Aries Chavez on 10-04-2023 ALT [Catalytic activity/Vol] 67 U/L 7-52 [facility] Albumin [Mass/volume] in Ser um or Plasma by Bromocresol green (BCG) dye binding methoOrdered By: Aries Chavez on 10-04-2023 Albumin BCG dye [Mass/Vol] 3.4 g/dL 3.5-5.7 [facility] Alkaline phosphatase [Enzyma tic activity/volume] in Serum or PlasmaOrdered By: Aries Chavez on 10-04-2023 ALP [Catalytic activity/Vol] 113 U/L 34-104 [facility] Aspartate aminotransferase [ Enzymatic activity/volume] in Serum or PlasmaOrdered By: Aries Chavez on 10-04-2023 AST [Catalytic activity/Vol] 22 U/L 13-39 [facility] Basophils Auto (Bld) [#/Vol] Ordered By: Aries Chavez on 10-04-2023 Basophils (Bld) [#/Vol] 0.1 10*3/uL 0.0-0.2 [facility] Basophils/100 WBC Auto (Bld) Ordered By: Aries Chavez on 10-04-2023 Basophils/100 WBC (Bld) 2.3 % . [facility] Bilirubin.total [Mass/volume ] in Serum or PlasmaOrdered By: Aries Chavez on 10-04-2023 Bilirubin [Mass/Vol] 0.3 mg/dL 0.3-1.0 [facility] Calcium [Mass/volume] in Ser um or PlasmaOrdered By: Aries Chavez on 10-04-2023 Calcium [Mass/Vol] 8.9 mg/dL 8.6-10.3 [facility] Carbon dioxide, total [Moles /volume] in Serum or PlasmaOrdered By: Aries Chavez on 10-04-2023 CO2 [Moles/Vol] 26.2 mmol/L 21.0-31.0 [facility] Chloride [Moles/volume] in S leena or PlasmaOrdered By: Aries Chavez on 10-04-2023 Chloride [Moles/Vol] 94 mmol/L 98-107 [facility] Complete Blood Count Auto Di ffon 10-04-2023 Basophils (Bld) [#/Vol] 0.1 10*3/uL Normal 0.0-0.2 [facility] Comment on above: Result Comment: PERF ORMED BY: [place] [address] PATHOLOGIST [employer] ARCHITECT STEFANO HOLT M.D. Performed By: #### F ER, CBC, CMP, FE and TIBC #### [address] Basophils/100 WBC (Bld) 2.3 % Normal . [facility] Comment on above: Performed By: #### F ER, CBC, CMP, FE and TIBC #### [address] Eosinophils (Bld) [#/Vol] 0.2 10*3/uL Normal 0.0-0.45 [facility] Comment on above: Performed By: #### F ER, CBC, CMP, FE and TIBC #### [address] Eosinophils/100 WBC (Bld) 2.8 % Normal . [facility] Comment on above: Performed By: #### F ER, CBC, CMP, FE and TIBC #### [address] Erythrocyte distribution width (RBC) [Ratio] 18.4 % High 11.9-15.3 [facility] Comment on above: Performed By: #### F ER, CBC, CMP, FE and TIBC #### [address] Hematocrit (Bld) [Volume fraction] 26.2 % Low 34.0-46.4 [facility] Comment on above: Performed By: #### F ER, CBC, CMP, FE and TIBC #### [address] Hemoglobin (Bld) [Mass/Vol] 8.4 g/dL Low 11.8-15.4 [facility] Comment on above: Performed By: #### F ER, CBC, CMP, FE and TIBC #### [place] [address] [place] Lymphocytes (Bld) [#/Vol] 1.2 10*3/uL Normal 1.00-4.8 [facility] Comment on above: Performed By: #### F ER, CBC, CMP, FE and TIBC #### [address] Lymphocytes/100 WBC (Bld) 21.7 % Normal . [facility] Comment on above: Performed By: #### F ER, CBC, CMP, FE and TIBC #### [address] MCH (RBC) [Entitic mass] 25.3 pg Normal 24.7-34.3 [facility] Comment on above: Performed By: #### F ER, CBC, CMP, FE and TIBC #### [address] MCV (RBC) [Entitic vol] 79.1 fL Low 80-100 [facility] Comment on above: Performed By: #### F ER, CBC, CMP, FE and TIBC #### [address] Mean Corpuscular HGB Conc 32.0 g/dL Normal 32.0-35.0 [facility] Comment on above: Performed By: #### F ER, CBC, CMP, FE and TIBC #### [address] Monocytes (Bld) [#/Vol] 0.7 10*3/uL Normal 0.0-0.8 [facility] Comment on above: Performed By: #### F ER, CBC, CMP, FE and TIBC #### [address] Monocytes/100 WBC (Bld) 11.5 % Normal . [facility] Comment on above: Performed By: #### F ER, CBC, CMP, FE and TIBC #### [address] Neutrophils (Bld) [#/Vol] 3.6 10*3/uL Normal 1.8-7.7 [facility] Comment on above: Performed By: #### F ER, CBC, CMP, FE and TIBC #### [address] Neutrophils/100 WBC (Bld) 61.7 % Normal . [facility] Comment on above: Performed By: #### F ER, CBC, CMP, FE and TIBC #### [address] NRBC% 0.1 /100{WBC} Normal 0-0.5 [facility] Comment on above: Performed By: #### F ER, CBC, CMP, FE and TIBC #### [address] Platelet mean volume (Bld) [Entitic vol] 6.8 fL Normal 6.3-10.7 [facility] Comment on above: Performed By: #### F ER, CBC, CMP, FE and TIBC #### [address] Platelets (Bld) [#/Vol] 404 10*3/uL Normal 150-450 [facility] Comment on above: Performed By: #### F ER, CBC, CMP, FE and TIBC #### [address] RBC (Bld) [#/Vol] 3.32 10*6/uL Low 3.60-5.00 [facility] Comment on above: Performed By: #### F ER, CBC, CMP, FE and TIBC #### [address] WBC (Bld) [#/Vol] 5.8 10*3/uL Normal 3.8-11.6 [facility] Comment on above: Performed By: #### F ER, CBC, CMP, FE and TIBC #### [address] Comprehensive Metabolic Pane onesimo 10-04-2023 Albumin [Mass/Vol] 3.4 g/dL Low 3.5-5.7 [facility] Comment on above: Performed By: #### F ER, CBC, CMP, FE and TIBC #### [facility] [address] Albumin/Globulin [Mass ratio] 0.8 {ratio} Normal [facility] Comment on above: Performed By: #### F ER, CBC, CMP, FE and TIBC #### [facility] [address] ALP [Catalytic activity/Vol] 113 U/L High 34-104 [facility] Comment on above: Performed By: #### F ER, CBC, CMP, FE and TIBC #### [facility] [address] ALT [Catalytic activity/Vol] 67 U/L High 7-52 [facility] Comment on above: Performed By: #### F ER, CBC, CMP, FE and TIBC #### [facility] [address] [place] [address] Anion gap [Moles/Vol] 9.5 mmol/L Normal 6.0-15.0 [facility] Comment on above: Performed By: #### F ER, CBC, CMP, FE and TIBC #### [facility] [address] [place] [address] AST [Catalytic activity/Vol] 22 U/L Normal 13-39 [facility] Comment on above: Performed By: #### F ER, CBC, CMP, FE and TIBC #### [facility] [address] Bilirubin [Mass/Vol] 0.3 mg/dL Normal 0.3-1.0 [facility] Comment on above: Performed By: #### F ER, CBC, CMP, FE and TIBC #### [facility] [address] Calcium [Mass/Vol] 8.9 mg/dL Normal 8.6-10.3 [facility] Comment on above: Performed By: #### F ER, CBC, CMP, FE and TIBC #### [address] Chloride [Moles/Vol] 94 mmol/L Low 98-107 [facility] Comment on above: Performed By: #### F ER, CBC, CMP, FE and TIBC #### [facility] [address] CO2 [Moles/Vol] 26.2 mmol/L Normal 21.0-31.0 [facility] Comment on above: Performed By: #### F ER, CBC, CMP, FE and TIBC #### [facility] [address] Creatinine [Mass/Vol] 0.75 mg/dL Normal 0.60-1.20 [facility] Comment on above: Performed By: #### F ER, CBC, CMP, FE and TIBC #### [facility] [address] Creatinine Clr Calc Pharmacy 59.72 [facility] Comment on above: Result Comment: PERF ORMED BY: [place] [address] PATHOLOGIST [employer] ARCHITECT STEFANO HOLT M.D. Performed By: #### F ER, CBC, CMP, FE and TIBC #### [address] GFR/1.73 sq M.predicted MDRD (S/P/Bld) [Vol rate/Area] mL/min/{1.73_m2} [facility] Comment on above: Performed By: #### F ER, CBC, CMP, FE and TIBC #### [address] Globulin (S) [Mass/Vol] 4.5 g/dL [facility] Comment on above: Performed By: #### F ER, CBC, CMP, FE and TIBC #### [facility] [address] Glucose [Mass/Vol] 101 mg/dL High 70-100 [facility] Comment on above: Result Comment: [place] Glucose Reference Range is dependent on time and content of last meal. Glucose of more than 200 mg/dL in a nonstressed, ambulatory subject supports the diagnosis of Diabetes Mellitus. ADA recommended reference range Performed By: #### F ER, CBC, CMP, FE and TIBC #### [address] Potassium [Moles/Vol] 4.7 mmol/L Normal 3.5-5.1 [facility] Comment on above: Performed By: #### F ER, CBC, CMP, FE and TIBC #### [address] Protein [Mass/Vol] 7.9 g/dL Normal 6.4-8.9 [facility] Comment on above: Performed By: #### F ER, CBC, CMP, FE and TIBC #### [address] Sodium [Moles/Vol] 125 mmol/L Low 136-145 [facility] Comment on above: Performed By: #### F ER, CBC, CMP, FE and TIBC #### [address] Urea nitrogen [Mass/Vol] 17 mg/dL Normal 7-25 [facility] Comment on above: Performed By: #### F ER, CBC, CMP, FE and TIBC #### [address] Cortisolon 10-04-2023 Cortisol 12.2 ug/dL Normal [facility] Comment on above: Result Comment: Refe rence range: AM 6 - 24 ug/dl PM <10 ug/dl [facility] Laboratory supply assistant and method: AMRITA UNICEL DXI, POLYCLONAL ANTIBODY CORTISOL ASSAY. PERFORMED BY: [place] [address] PATHOLOGIST [employer] ARCHITECT STEFANO HOLT M.D. Performed By: #### F ER, CBC, CMP, FE and TIBC #### [address] Creatinine [Mass/volume] in Serum or PlasmaOrdered By: Aries Chavez on 10-04-2023 Creatinine [Mass/Vol] 0.75 mg/dL 0.60-1.20 [facility] Eosinophils Auto (Bld) [#/Vo l]Ordered By: Aries Chavez on 10-04-2023 Eosinophils (Bld) [#/Vol] 0.2 10*3/uL 0.0-0.45 [facility] Eosinophils/100 WBC Auto (Bl d)Ordered By: Aries Chavez on 10-04-2023 Eosinophils/100 WBC (Bld) 2.8 % . [facility] Erythrocyte distribution wid th Auto (RBC) [Ratio]Ordered By: Aries Chavez on 10-04-2023 Erythrocyte distribution width (RBC) [Ratio] 18.4 % 11.9-15.3 [facility] Free T4 (Free Thyroxine)on 0 10-04-2023 Free T4 [Mass/Vol] 1.00 ng/dL Normal 0.61-1.12 [facility] Comment on above: Performed By: #### C ORT, T4F, TSH3 #### [facility] [address] #### ACTH #### [facility] , Globulin Calc (S) [Mass/Vol] Ordered By: Aries Chavez on 10-04-2023 Globulin (S) [Mass/Vol] 4.5 g/dL [facility] Glucose [Mass/volume] in Ser um or PlasmaOrdered By: Aries Chavez on 10-04-2023 Glucose [Mass/Vol] 101 mg/dL 70-100 [facility] Comment on above: ADA recommended refe rence rangeRandom Glucose Reference Range is dependent on time and content of last meal. Glucose of more than 200 mg/dL in a nonstressed, ambulatory subject supports the diagnosis of Diabetes Mellitus. Hematocrit Auto (Bld) [Volum e fraction]Ordered By: Aries Chavez on 10-04-2023 Hematocrit (Bld) [Volume fraction] 26.2 % 34.0-46.4 [facility] Hemoglobin [Mass/volume] in BloodOrdered By: Aries Chavez on 10-04-2023 Hemoglobin (Bld) [Mass/Vol] 8.4 g/dL 11.8-15.4 [facility] Leukocytes [#/volume] correc gabriel for nucleated erythrocytes in Blood by Automated counOrdered By: Aries Chavez on 10-04-2023 WBC corrected for nucl RBC Auto (Bld) [#/Vol] 5.8 10*3/uL 3.8-11.6 [facility] Lymphocytes Auto (Bld) [#/Vo l]Ordered By: Aries Chavez on 10-04-2023 Lymphocytes (Bld) [#/Vol] 1.2 10*3/uL 1.00-4.8 [facility] Lymphocytes/100 WBC Auto (Bl d)Ordered By: Aries Chavez on 10-04-2023 Lymphocytes/100 WBC (Bld) 21.7 % . [facility] MCH Auto (RBC) [Entitic mass ]Ordered By: Aries Chavez on 10-04-2023 MCH (RBC) [Entitic mass] 25.3 pg 24.7-34.3 [facility] MCHC Auto (RBC) [Mass/Vol]Or dered By: Aries Chavez on 10-04-2023 MCHC (RBC) [Mass/Vol] 32.0 g/dL 32.0-35.0 [facility] MCV Auto (RBC) [Entitic vol] Ordered By: Aries Chavez on 10-04-2023 MCV (RBC) [Entitic vol] 79.1 fL 80-100 [facility] Monocytes Auto (Bld) [#/Vol] Ordered By: Aries Chavez on 10-04-2023 Monocytes (Bld) [#/Vol] 0.7 10*3/uL 0.0-0.8 [facility] Monocytes/100 WBC Auto (Bld) Ordered By: Aries Chavez on 10-04-2023 Monocytes/100 WBC (Bld) 11.5 % . [facility] Neutrophils Auto (Bld) [#/Vo l]Ordered By: Aries Chavez on 10-04-2023 Neutrophils (Bld) [#/Vol] 3.6 10*3/uL 1.8-7.7 [facility] Neutrophils/100 WBC Auto (Bl d)Ordered By: Aries Chavez on 10-04-2023 Neutrophils/100 WBC (Bld) 61.7 % . [facility] No Panel InformationOrdered By: Aries Chavez on 10-04-2023 Adrenocorticotropic Hormone 25.4 pg/mL 7.2-63.3 [facility] Comment on above: ACTH reference inter wendy for samples collected between 7 and10 AM.Performed at: [facility] [address] [id number] Director: Juan Hendricks PhD, Phone: [phone] Estimated GFR (CKD-EPI) > 60.0 mL/Min [facility] Creatinine Clearance (Chem 59.72 [facility] Nucleated erythrocytes [Pres ence] in Blood by Automated countOrdered By: Aries Chavez on 10-04-2023 Nucleated RBC Auto Ql (Bld) 0.1 /100{WBC} 0-0.5 [facility] Platelet mean volume Auto (B ld) [Entitic vol]Ordered By: Aries Chavez on 10-04-2023 Platelet mean volume (Bld) [Entitic vol] 6.8 fL 6.3-10.7 [facility] Platelets Auto (Bld) [#/Vol] Ordered By: Aries Chavez on 10-04-2023 Platelets (Bld) [#/Vol] 404 10*3/uL 150-450 [facility] Potassium [Moles/volume] in Serum or PlasmaOrdered By: Aries Chavez on 10-04-2023 Potassium [Moles/Vol] 4.7 mmol/L 3.5-5.1 [facility] Protein [Mass/volume] in Ser um or PlasmaOrdered By: Aries Chavez on 10-04-2023 Protein [Mass/Vol] 7.9 g/dL 6.4-8.9 [facility] RBC Auto (Bld) [#/Vol]Ordere d By: Aries Chavez on 10-04-2023 RBC (Bld) [#/Vol] 3.32 10*6/uL 3.60-5.00 [facility] Random cortisol measurementO rdered By: Aries Chavez on 10-04-2023 Cortisol [Mass/Vol] 12.2 ug/dL [facility] Comment on above: [facility] Laboratory supply assistant and method:Vanu CoverageEL DXI, POLYCLONAL ANTIBODY CORTISOL ASSAY.Reference range: AM 6 - 24 ug/dl PM <10 ug/dl Serum or plasma albumin/glob ulin mass ratioOrdered By: Aries Chavez on 10-04-2023 Albumin/Globulin [Mass ratio] 0.8 {ratio} [facility] Serum or plasma anion gap de terminationOrdered By: Aries Chavez on 10-04-2023 Anion gap [Moles/Vol] 9.5 mmol/L 6.0-15.0 [facility] Sodium [Moles/volume] in Ser um or PlasmaOrdered By: Aries Chavez on 10-04-2023 Sodium [Moles/Vol] 125 mmol/L 136-145 [facility] Thyroid Stimulating Hormoneo n 10-04-2023 TSH Qn 1.03 m[IU]/L Normal 0.45-5.33 [facility] Comment on above: Performed By: #### C ORT, T4F, TSH3 #### [address] #### ACTH #### [facility] , Thyrotropin [Units/volume] i n Serum or PlasmaOrdered By: Aries Chavez on 10-04-2023 TSH Qn 1.03 m[IU]/L 0.45-5.33 [facility] Thyroxine (T4) free [Mass/vo lume] in Serum or PlasmaOrdered By: Aries Chavez on 10-04-2023 Free T4 [Mass/Vol] 1.00 ng/dL 0.61-1.12 [facility] Urea nitrogen [Mass/volume] in Serum or PlasmaOrdered By: Aries Chavez on 10-04-2023 Urea nitrogen [Mass/Vol] 17 mg/dL 7-25 [facility] WBC Auto (Bld) [#/Vol]Ordere d By: Aries Chavez on 10-04-2023 WBC (Bld) [#/Vol] 5.8 10*3/uL 3.8-11.6 [facility] Adrenocorticotropic Hormone PLon 09-12-[address] 33.9 pg/mL Normal 7.2-63.3 [facility] Comment on above: Result Comment: ACTH reference interval for samples collected between 7 and 10 AM. Performed at: - [facility] [id number] Credit Risk Manager: Juan Hendricks PhD, Phone: [phone] PERFORMED BY: [place] [address] PATHOLOGIST [employer] ARCHITECT STEFANO HOLT M.D. Performed By: #### F ER, CBC, CMP, FE and TIBC #### [facility] [address] [address] Anisocytosis LM Ql (Bld)Orde red By: Aries Chavez on 09-12-2023 Anisocytosis Ql (Bld) Moderate [facility] Automated erythrocytes count in urine sediment (number/area)Ordered By: Aries Chavez on 09-12-2023 RBC Auto (Urine sed) [#/Area] 5-9 [HPF] 0-4 [facility] Automated leukocytes count i n urine sediment (number/area)Ordered By: Aries Chavez on 09-12-2023 WBC Auto (Urine sed) [#/Area] 5-9 [HPF] 0-4 [facility] Bilirubin Test strip Ql (U)O rdered By: Aries Chavez on 09-12-2023 Bilirubin Ql (U) Negative Negative [facility] Color Auto (U)Ordered By: Gregorio Chavez on 09-12-2023 Color (U) Yellow Yellow [facility] Comprehensive Metabolic Pane onesimo 09-12-2023 Albumin [Mass/Vol] 3.4 g/dL Low 3.5-5.7 [facility] Comment on above: Performed By: #### F ER, CBC, CMP, FE and TIBC #### [facility] [address] [place] [address] Albumin/Globulin [Mass ratio] 0.8 {ratio} Normal [facility] Comment on above: Performed By: #### F ER, CBC, CMP, FE and TIBC #### [address] ALP [Catalytic activity/Vol] 89 U/L Normal 34-104 [facility] Comment on above: Performed By: #### F ER, CBC, CMP, FE and TIBC #### [address] ALT [Catalytic activity/Vol] 43 U/L Normal 7-52 [facility] Comment on above: Performed By: #### F ER, CBC, CMP, FE and TIBC #### [address] Anion gap [Moles/Vol] 8.3 mmol/L Normal 6.0-15.0 [facility] Comment on above: Performed By: #### F ER, CBC, CMP, FE and TIBC #### [address] AST [Catalytic activity/Vol] 14 U/L Normal 13-39 [facility] Comment on above: Performed By: #### F ER, CBC, CMP, FE and TIBC #### [address] Bilirubin [Mass/Vol] 0.3 mg/dL Normal 0.3-1.0 [facility] Comment on above: Performed By: #### F ER, CBC, CMP, FE and TIBC #### [address] Calcium [Mass/Vol] 9.1 mg/dL Normal 8.6-10.3 [facility] Comment on above: Performed By: #### F ER, CBC, CMP, FE and TIBC #### [address] Chloride [Moles/Vol] 95 mmol/L Low 98-107 [facility] Comment on above: Performed By: #### F ER, CBC, CMP, FE and TIBC #### [facility] [address] CO2 [Moles/Vol] 28.4 mmol/L Normal 21.0-31.0 [facility] Comment on above: Performed By: #### F ER, CBC, CMP, FE and TIBC #### [facility] [address] Creatinine [Mass/Vol] 0.68 mg/dL Normal 0.60-1.20 [facility] Comment on above: Performed By: #### F ER, CBC, CMP, FE and TIBC #### [facility] [address] Creatinine Clr Calc Pharmacy 59.72 [facility] Comment on above: Result Comment: PERF ORMED BY: [place] [address] PATHOLOGIST [employer] ARCHITECT STEFANO HOLT M.D. Performed By: #### F ER, CBC, CMP, FE and TIBC #### [facility] [address] GFR/1.73 sq M.predicted MDRD (S/P/Bld) [Vol rate/Area] mL/min/{1.73_m2} [facility] Comment on above: Performed By: #### F ER, CBC, CMP, FE and TIBC #### [address] Globulin (S) [Mass/Vol] 4.5 g/dL [facility] Comment on above: Performed By: #### F ER, CBC, CMP, FE and TIBC #### [facility] [address] Glucose [Mass/Vol] 97 mg/dL Normal 70-100 [facility] Comment on above: Result Comment: [place] Glucose Reference Range is dependent on time and content of last meal. Glucose of more than 200 mg/dL in a nonstressed, ambulatory subject supports the diagnosis of Diabetes Mellitus. ADA recommended reference range Performed By: #### F ER, CBC, CMP, FE and TIBC #### [facility] [address] Potassium [Moles/Vol] 4.7 mmol/L Normal 3.5-5.1 [facility] Comment on above: Performed By: #### F ER, CBC, CMP, FE and TIBC #### [facility] [address] Protein [Mass/Vol] 7.9 g/dL Normal 6.4-8.9 [facility] Comment on above: Performed By: #### F ER, CBC, CMP, FE and TIBC #### [facility] [address] Sodium [Moles/Vol] 127 mmol/L Low 136-145 [facility] Comment on above: Performed By: #### F ER, CBC, CMP, FE and TIBC #### [address] Urea nitrogen [Mass/Vol] 13 mg/dL Normal 7-25 [facility] Comment on above: Performed By: #### F ER, CBC, CMP, FE and TIBC #### [address] Cortisolon 09-12-2023 Cortisol 14.6 ug/dL Normal [facility] Comment on above: Result Comment: Refe rence range: AM 6 - 24 ug/dl PM <10 ug/dl PERFORMED BY: [place] [address] PATHOLOGIST [employer] ARCHITECT STEFANO HOLT M.D. Performed By: #### F ER, CBC, CMP, FE and TIBC #### [facility] [address] Dipstick and Microscopicon 1 11-13-2022 Appearance (U) Clear Normal Clear [facility] Comment on above: Order Comment: Name Collection Type:: Voided Performed By: #### F ER, CBC, CMP, FE and TIBC #### [facility] [address] Bacteria,Urine None Seen Normal None Seen [facility] Comment on above: Order Comment: Name Collection Type:: Voided Performed By: #### F ER, CBC, CMP, FE and TIBC #### [facility] [address] [place] [address] [place] Bilirubin,Urine Negative Normal Negative [facility] Comment on above: Order Comment: Name Collection Type:: Voided Performed By: #### F ER, CBC, CMP, FE and TIBC #### [facility] [address] [address] Color (U) Yellow Normal Yellow [facility] Comment on above: Order Comment: Name Collection Type:: Voided Performed By: #### F ER, CBC, CMP, FE and TIBC #### [address] Glucose Ql (U) Normal Normal Normal [facility] Comment on above: Order Comment: Name Collection Type:: Voided Performed By: #### F ER, CBC, CMP, FE and TIBC #### [address] Hyaline Casts,Urine 0-8 Normal 0-8 [facility] Comment on above: Order Comment: Name Collection Type:: Voided Performed By: #### F ER, CBC, CMP, FE and TIBC #### [address] Ketones Ql (U) Negative Normal Negative [facility] Comment on above: Order Comment: Name Collection Type:: Voided Performed By: #### F ER, CBC, CMP, FE and TIBC #### [facility] [address] [address] Leukocyte esterase Test strip Ql (U) 2+ High Negative [facility] Comment on above: Order Comment: Name Collection Type:: Voided Performed By: #### F ER, CBC, CMP, FE and TIBC #### [facility] [address] [place] [address] Nitrite,Urine Negative Normal Negative [facility] Comment on above: Order Comment: Name Collection Type:: Voided Performed By: #### F ER, CBC, CMP, FE and TIBC #### [address] Occult Blood,Urine 2+ High Negative [facility] Comment on above: Order Comment: Name Collection Type:: Voided Result Comment: PERF ORMED BY: [place] [address] PATHOLOGIST [employer] ARCHITECT STEFANO HOLT M.D. Performed By: #### F ER, CBC, CMP, FE and TIBC #### [address] pH (U) 6.0 [pH] Normal 5.0-9.0 [facility] Comment on above: Order Comment: Name Collection Type:: Voided Performed By: #### F ER, CBC, CMP, FE and TIBC #### [address] Protein (U) [Mass/Vol] 100 mg/dL High Negative [facility] Comment on above: Order Comment: Name Collection Type:: Voided Performed By: #### F ER, CBC, CMP, FE and TIBC #### [address] RBC,Urine 5-9 High 0-4 [facility] Comment on above: Order Comment: Name Collection Type:: Voided Performed By: #### F ER, CBC, CMP, FE and TIBC #### [address] Specificy [place],Urine 1.012 Normal 1.001-1.030 [facility] Comment on above: Order Comment: Name Collection Type:: Voided Performed By: #### F ER, CBC, CMP, FE and TIBC #### [address] Squamous Epithelial Cell,Urine None Seen Normal 0-2 [facility] Comment on above: Order Comment: Name Collection Type:: Voided Performed By: #### F ER, CBC, CMP, FE and TIBC #### [address] Urobilinogen,Urine Normal Normal Normal [facility] Comment on above: Order Comment: Name Collection Type:: Voided Performed By: #### F ER, CBC, CMP, FE and TIBC #### [facility] [address] WBC,Urine 5-9 High 0-4 [facility] Comment on above: Order Comment: Name Collection Type:: Voided Performed By: #### F ER, CBC, CMP, FE and TIBC #### [facility] [address] Yeast,Urine None Seen Normal None Seen [facility] Comment on above: Order Comment: Name Collection Type:: Voided Result Comment: PERF ORMED BY: [place] [address] PATHOLOGIST [employer] ARCHITECT STEFANO HOLT M.D. Performed By: #### F ER, CBC, CMP, FE and TIBC #### [facility] [address] [address] Free T4 (Free Thyroxine)on 1 11-13-2022 Free T4 [Mass/Vol] 1.12 ng/dL Normal 0.61-1.12 [facility] Comment on above: Performed By: #### F ER, CBC, CMP, FE and TIBC #### [facility] [address] [place] [address] Hypochromia LM Ql (Bld)Order ed By: Aries Chavez on 09-12-2023 Hypochromia Ql (Bld) Moderate [facility] Ketones Auto test strip (U) [Mass/Vol]Ordered By: Aries Chavez on 09-12-2023 Ketones (U) [Mass/Vol] Negative Negative [facility] Laboratory - UrinalysisOrder ed By: Aries Chavez on 09-12-2023 Hyaline casts LM Ql (Urine sed) 0-8 [LPF] 0-8 [facility] Microcytes LM Ql (Bld)Ordere d By: Aries Chavez on 09-12-2023 Microcytes Ql (Bld) Slight [facility] Nitrite Test strip Ql (U)Ord ered By: Aries Chavez on 09-12-2023 Nitrite Ql (U) Negative Negative [facility] No Panel InformationOrdered By: Aries Chavez on 09-12-2023 Adrenocorticotropic Hormone 33.9 pg/mL 7.2-63.3 [facility] Comment on above: ACTH reference inter wendy for samples collected between 7 and10 AM.Performed at: - [facility] [id number] Director: Juan Hendricks PhD, Phone: [phone] Ovalocyte detectionOrdered B y: Aries Chavez on 09-12-2023 Ovalocytes LM Ql (Bld) Slight [facility] Platelet adequacy [Presence] in Blood by Light microscopyOrdered By: Aries Chavez on 09-12-2023 Platelets LM Ql (Bld) Normal Normal [facility] Platelet morphology finding [Identifier] in BloodOrdered By: Aries Chavez on 09-12-2023 Platelet morphology finding Nom (Bld) Normal Normal [facility] Poikilocytosis [Presence] in Blood by Light microscopyOrdered By: Aries Chavez on 09-12-2023 Poikilocytosis LM Ql (Bld) Slight [facility] Polychromasia [Presence] in Blood by Light microscopyOrdered By: Aries Chavez on 09-12-2023 Polychromasia LM Ql (Bld) Slight [facility] Protein Auto test strip (U) [Mass/Vol]Ordered By: Aries Chavez on 09-12-2023 Protein (U) [Mass/Vol] 100 mg/dL Negative [facility] RBC morphologyOrdered By: Gregorio Chavez on 09-12-2023 RBC morphology finding Nom (Bld) N/A [facility] Scan and CBCon 09-12-2023 Anisocytosis Ql (Bld) Moderate Normal [facility] Comment on above: Performed By: #### F ER, CBC, CMP, FE and TIBC #### [facility] [address] Basophils (Bld) [#/Vol] 0.1 10*3/uL Normal 0.0-0.2 [facility] Comment on above: Performed By: #### F ER, CBC, CMP, FE and TIBC #### [address] Basophils/100 WBC (Bld) 2.3 % Normal . [facility] Comment on above: Performed By: #### F ER, CBC, CMP, FE and TIBC #### [address] Eosinophils (Bld) [#/Vol] 0.1 10*3/uL Normal 0.0-0.45 [facility] Comment on above: Performed By: #### F ER, CBC, CMP, FE and TIBC #### [address] Eosinophils/100 WBC (Bld) 1.8 % Normal . [facility] Comment on above: Performed By: #### F ER, CBC, CMP, FE and TIBC #### [address] Erythrocyte distribution width (RBC) [Ratio] 20.8 % High 11.9-15.3 [facility] Comment on above: Performed By: #### F ER, CBC, CMP, FE and TIBC #### [address] Hematocrit (Bld) [Volume fraction] 25.0 % Low 34.0-46.4 [facility] Comment on above: Performed By: #### F ER, CBC, CMP, FE and TIBC #### [address] Hemoglobin (Bld) [Mass/Vol] 8.1 g/dL Low 11.8-15.4 [facility] Comment on above: Performed By: #### F ER, CBC, CMP, FE and TIBC #### [address] Hypersegmented Neutrophils Slight Normal [facility] Comment on above: Performed By: #### F ER, CBC, CMP, FE and TIBC #### [address] Hypochromasia Moderate Normal [facility] Comment on above: Performed By: #### F ER, CBC, CMP, FE and TIBC #### [address] Lymphocytes (Bld) [#/Vol] 1.3 10*3/uL Normal 1.00-4.8 [facility] Comment on above: Performed By: #### F ER, CBC, CMP, FE and TIBC #### [address] Lymphocytes/100 WBC (Bld) 21.2 % Normal . [facility] Comment on above: Performed By: #### F ER, CBC, CMP, FE and TIBC #### [address] MCH (RBC) [Entitic mass] 25.6 pg Normal 24.7-34.3 [facility] Comment on above: Performed By: #### F ER, CBC, CMP, FE and TIBC #### [address] MCV (RBC) [Entitic vol] 79.0 fL Low 80-100 [facility] Comment on above: Performed By: #### F ER, CBC, CMP, FE and TIBC #### [address] Mean Corpuscular HGB Conc 32.4 g/dL Normal 32.0-35.0 [facility] Comment on above: Performed By: #### F ER, CBC, CMP, FE and TIBC #### [address] Microcytosis Slight Normal [facility] Comment on above: Performed By: #### F ER, CBC, CMP, FE and TIBC #### [address] Monocytes (Bld) [#/Vol] 0.7 10*3/uL Normal 0.0-0.8 [facility] Comment on above: Performed By: #### F ER, CBC, CMP, FE and TIBC #### [address] Monocytes/100 WBC (Bld) 11.7 % Normal . [facility] Comment on above: Performed By: #### F ER, CBC, CMP, FE and TIBC #### [address] Neutrophils (Bld) [#/Vol] 3.9 10*3/uL Normal 1.8-7.7 [facility] Comment on above: Performed By: #### F ER, CBC, CMP, FE and TIBC #### [address] Neutrophils/100 WBC (Bld) 63.0 % Normal . [facility] Comment on above: Performed By: #### F ER, CBC, CMP, FE and TIBC #### [address] NRBC% 0.1 /100{WBC} Normal 0-0.5 [facility] Comment on above: Performed By: #### F ER, CBC, CMP, FE and TIBC #### [address] Ovalocytes Slight Normal [facility] Comment on above: Performed By: #### F ER, CBC, CMP, FE and TIBC #### [address] Platelet Estimate Normal Normal Normal [facility] Comment on above: Performed By: #### F ER, CBC, CMP, FE and TIBC #### [address] Platelet mean volume (Bld) [Entitic vol] 7.5 fL Normal 6.3-10.7 [facility] Comment on above: Performed By: #### F ER, CBC, CMP, FE and TIBC #### [address] Platelet Morphology Normal Normal Normal [facility] Comment on above: Result Comment: PERF ORMED BY: [place] [address] PATHOLOGIST [employer] ARCHITECT STEFANO HOLT M.D. Performed By: #### F ER, CBC, CMP, FE and TIBC #### [address] Platelets (Bld) [#/Vol] 395 10*3/uL Normal 150-450 [facility] Comment on above: Performed By: #### F ER, CBC, CMP, FE and TIBC #### [address] Poikilocytosis Slight Normal [facility] Comment on above: Performed By: #### F ER, CBC, CMP, FE and TIBC #### [address] Polychromasia Slight Normal [facility] [facility] Comment on above: Performed By: #### F ER, CBC, CMP, FE and TIBC #### [address] RBC (Bld) [#/Vol] 3.17 10*6/uL Low 3.60-5.00 [facility] Comment on above: Performed By: #### F ER, CBC, CMP, FE and TIBC #### [address] WBC (Bld) [#/Vol] 6.2 10*3/uL Normal 3.8-11.6 [facility] Comment on above: Performed By: #### F ER, CBC, CMP, FE and TIBC #### [address] Specific gravity Auto test s trip (U) [Rel density]Ordered By: Aries Chavez on 09-12-2023 Specific gravity (U) [Rel density] 1.012 1.001-1.030 [facility] Squamous epithelial cells de tection in urine sediment by light microscopyOrdered By: Aries Chavez on 09-12-2023 Epithelial cells.squamous LM Ql (Urine sed) None seen [HPF] 0-2 [facility] Thyroid Stimulating Hormoneo n 09-12-2023 TSH Qn 0.90 m[IU]/L Normal 0.45-5.33 [facility] Comment on above: Performed By: #### F ER, CBC, CMP, FE and TIBC #### [facility] [address] [place] [address] [place] Urine Cultureon 09-12-2023 Bacteria identified Cx Nom (U) 30,000 colonies/ml mixed bacterial skin contaminants 2 Days PERFORMED BY: [place] [address] PATHOLOGIST [employer] ARCHITECT STEFANO HOLT M.D. [facility] Comment on above: Performed By: #### F ER, CBC, CMP, FE and TIBC #### [facility] [address] Urine bacteria detection by automated methodOrdered By: Aries Chavez on 09-12-2023 Bacteria Auto Ql (U) None seen None Seen [facility] Urine clarity by refractomet ry automatedOrdered By: Aries Chavez on 09-12-2023 Clarity Refractometry automated (U) Clear Clear [facility] Urine culture routineOrdered By: Aries Chavez on 09-12-2023 Bacteria identified Cx Nom (U) 2 Days [facility] Urine glucose measurement by automated test strip (mass/volume)Ordered By: Aries Chavez on 09-12-2023 Glucose Auto test strip (U) [Mass/Vol] Normal mg/dL Normal [facility] Urine hemoglobin detection b y automated test stripOrdered By: Aries Chavez on 09-12-2023 Hemoglobin Auto test strip Ql (U) 2+ Negative [facility] Urine leukocyte esterase det ection by automated test stripOrdered By: Aries Chavez on 09-12-2023 Leukocyte esterase Auto test strip Ql (U) 2+ Negative [facility] Urobilinogen Auto test strip (U) [Mass/Vol]Ordered By: Aries Chavez on 09-12-2023 Urobilinogen (U) [Mass/Vol] Normal mg/dL Normal [facility] Whole blood hypersegmented n eutrophils detection by light microscopyOrdered By: Aries Chavez on 09-12-2023 Neutrophils.hypersegme nted LM Ql (Bld) Slight [facility] Yeast detection in urine sed iment by light microscopyOrdered By: Aries Chavez on 09-12-2023 Yeast LM Ql (Urine sed) None seen [HPF] None Seen [facility] pH Auto test strip (U)Ordere d By: Aries Chavez on 09-12-2023 pH (U) 6.0 [pH] 5.0-9.0 [facility] Activated partial thrombopla stin time (aPTT) in platelet poor plasma by coagulation aOrdered By: Aries Chavez on 08-22-2023 aPTT Coag (PPP) [Time] 28.9 s 25.1-36.5 [facility] Comment on above: A hematocrit value g reater than 55% may lead to inaccurate results in coagulation testing. Patients having hematocrit values >55% require a special collection tube for coagulation studies. Please contact the laboratory at [phone] for redraw instructions. Coagulation Profileon 2022 aPTT Coag (Bld) [Time] 28.9 s Normal 25.1-36.5 [facility] Comment on above: Result Comment: A he matocrit value greater than 55% may lead to inaccurate results in coagulation testing. Patients having hematocrit values >55% require a special collection tube for coagulation studies. Please contact the laboratory at [phone] for redraw instructions. PERFORMED BY: [address] [address] PATHOLOGIST [employer] ARCHITECT STEFANO HOLT M.D. Performed By: #### F ER, CBC, CMP, FE and TIBC #### [place] [id number] [facility] INR Coag (PPP) [Relative time] 1.1 {INR} Normal [facility] Comment on above: Result Comment: INR Therapeutic Range A) Pre- and Peroperative OAT started two weeks before surgery. NOT HIP SURGERY: 1.5 - 2.5 HIP SURGERY: 2 - 3 B) Primary and secondary prevention of venous THROMBOSIS: 2 - 3 C) Active venous thrombosis, pulmonary embolism and prevention of recurrent venous thrombosis: 2 - 3 D) Prevention of arterial thromboembolism including patients with mechanical heart valves: 3 - 4.5 Performed By: #### F ER, CBC, CMP, FE and TIBC #### [facility] [address] [place] [address] [place] PT Coag (PPP) [Time] 13.1 s High 9.0-12.9 [facility] Comment on above: Result Comment: A he matocrit value greater than 55% may lead to inaccurate results in coagulation testing. Patients having hematocrit values >55% require a special collection tube for coagulation studies. Please contact the laboratory at [phone] for redraw instructions. Performed By: #### F ER, CBC, CMP, FE and TIBC #### [facility] [address] [place] [address] [facility] INR in Platelet poor plasma by Coagulation assayOrdered By: Aries Chavez on 08-22-2023 INR Coag (PPP) [Relative time] 1.1 {INR} [facility] Comment on above: INR Therapeutic Rang e A) Pre- and Peroperative OAT started two weeks before surgery. NOT HIP SURGERY: 1.5 - 2.5 HIP SURGERY: 2 - 3B) Primary and secondary prevention of venous THROMBOSIS: 2 - 3C) Active venous thrombosis, pulmonary embolismand prevention of recurrent venous thrombosis: 2 - 3D) Prevention of arterial thromboembolismincluding patients with mechanical heart valves: 3 - 4.5 Onesimo 08-22-2023 L ----- Specimen: [id number] Received: 08/22/23 Status: DIONICIO Calero Num: [id number] Spec Type: Surgical Subm Dr: Azael Alexandra DO Tissues: A Kidney - Biopsy (RT KIDNEY BX) Procedures: HE/2, Gross/Micro L4 Age/ Patient Sex Location Account Attending Physician Perla Ibarra 68/F [id number] Aries Chavez II, DO SPEC NUM: [id number] RECD: 08/22/23 STATUS: DIONICIO DEVAN NUM: [id number] PEBBLES: 08/22/23- SUBM DR: Azael Alexandra DO ENTERED: 08/22/[address] 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 - The case will also be submitted for consultation work up evaluation in reference laboratory with final interpretation in an addendum report to follow, partly due to short of immunomarker in this laboratory Specimen: [id number] Received: 08/22/23 Status: DIONICIO Calero Num: [id number] Spec Type: Surgical Subm Dr: Azael Alexandra DO Tissues: A Kidney - Biopsy (RT KIDNEY BX) Procedures: HE/Karie, Gross/Micro L4 Patient: Perla Ibarra [id number] (Continued) Specimen: [id number] Received: 08/22/23 (Continued) Pathological Diagnosis (Continued) Signed (signature on file) Kerry Smith MD 08/23/23 1120 Specimen: [id number] Received: 08/22/23 Status: DIONICIO Christinadorinda Num: [id number] Spec Type: Surgical Subm Dr: Azael Alexandra DO Tissues: A Kidney - Biopsy (RT KIDNEY BX) Procedures: HE/2, Gross/Micro L4 Patient: Perla Ibarra [id number] (Continued) Specimen: [id number] Received: 08/22/23 (Continued) Pathological Diagnosis (Continued) - Adequacy assessment was also performed during the procedure with report of lesion targeted given to the 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 CPT Codes 74393, 67051 Specimen: [id number] Received: 08/22/23 Status: DIONICIO Calero Num: [id number] Spec Type: Surgical Subm Dr: Azael Alexandra DO Tissues: A Kidney - Biopsy (RT KIDNEY BX) Procedures: HE/Karie, Gross/Micro L4 Patient: Perla Ibarra [id number] (Continued) Signed (signature on file) Kerry Smith MD 08/23/23 1120 Normal [facility] Platelet Counton 08-22-2023 Platelets (Bld) [#/Vol] 368 10*3/uL Normal 150-450 [facility] Comment on above: Result Comment: PERF ORMED BY: [place] [address] PATHOLOGIST [employer] ARCHITECT STEFANO HOLT M.D. Performed By: #### F ER, CBC, CMP, FE and TIBC #### [facility] [address] [place] [address] [place] Platelets Auto (Bld) [#/Vol] Ordered By: Aries Chavez on 08-22-2023 Platelets (Bld) [#/Vol] 368 10*3/uL 150-450 [facility] Prothrombin time (PT)Ordered By: Aries Chavez on 08-22-2023 PT Coag (PPP) [Time] 13.1 s 9.0-12.9 [facility] Comment on above: A hematocrit value g reater than 55% may lead to inaccurate results in coagulation testing. Patients having hematocrit values >55% require a special collection tube for coagulation studies. Please contact the laboratory at [phone] for redraw instructions. US needle biopsyon 3 US needle biopsy [facility] [place] [address] [place] [address] Ultrasound Report Signed Patient: Perla Ibarra MR#: [id number] : 1955 Acct:[id number] Age/Sex: 68 / F ADM Date: 08/22/23 Loc: Room: Type: [facility] Attending Dr: Aries Chavez II, DO Ordering Provider: Aries Chavez II, DO Date of Service: 08/22/23 US/US needle biopsy: kidney biopsy Copies to: Aries Chavez II, DO Ultrasound guided core biopsy of RIGHT renal mass. HISTORY: Large RIGHT renal mass identified with outside imaging 07/18/23. TECHNIQUE: Informed consent obtained. The lesion was localized with ultrasound guidance. The skin entry site was prepped and draped in sterile fashion with local lidocaine administered. Initial 20- gauge core biopsy was guided into the lesion with ultrasound. 2 core biopsy samples with 20-gauge obtained. This was changed to an 18-gauge gun biopsy apparatus. Ultrasound guidance utilized. 2 core samples obtained with ultrasound visualization. Preliminary results positive for malignant cells. Introducer needle was removed with adequate hemostasis obtained. Follow-up post biopsy imaging demonstrates no worrisome bleed. Patient discharged in satisfactory condition. Patient had no immediate complications. US/US needle biopsy IMPRESSION: Successful ultrasound-guided core biopsy of RIGHT renal lesion. Impression dictated by: Azael Alexandra M.D.08/22/2023 4:10 PM Dictation Location: [place] [address] Tech: Maricruz Khan Transcribed By: [facility] 08/22/23 1610 Dictated By: Azael Alexandra DO 08/22/23 1605 Signed By: 08/22/23 1610 Normal [facility] Alanine aminotransferase [En zymatic activity/volume] in Serum or PlasmaOrdered By: Aries Chavez on 07-31-2023 ALT [Catalytic activity/Vol] 40 U/L 7-52 [facility] Albumin [Mass/volume] in Ser um or Plasma by Bromocresol green (BCG) dye binding methoOrdered By: Aries Chavez on 07-31-2023 Albumin BCG dye [Mass/Vol] 3.7 g/dL 3.5-5.7 [facility] Alkaline phosphatase [Enzyma tic activity/volume] in Serum or PlasmaOrdered By: Aries Chavez on 07-31-2023 ALP [Catalytic activity/Vol] 91 U/L 34-104 [facility] Aspartate aminotransferase [ Enzymatic activity/volume] in Serum or PlasmaOrdered By: Aries Chavez on 07-31-2023 AST [Catalytic activity/Vol] 12 U/L 13-39 [facility] Automated erythrocytes count in urine sediment (number/area)Ordered By: Aries Chavez on 07-31-2023 RBC Auto (Urine sed) [#/Area] 5-9 [HPF] 0-4 [facility] Automated leukocytes count i n urine sediment (number/area)Ordered By: Aries Chavez on 07-31-2023 WBC Auto (Urine sed) [#/Area] None seen [HPF] 0-4 [facility] Basophils Auto (Bld) [#/Vol] Ordered By: Aries Chavez on 07-31-2023 Basophils (Bld) [#/Vol] 0.2 10*3/uL 0.0-0.2 [facility] Basophils/100 WBC Auto (Bld) Ordered By: Aries Chavez on 07-31-2023 Basophils/100 WBC (Bld) 2.0 % . [facility] Bilirubin Test strip Ql (U)O rdered By: Aries Chavez on 07-31-2023 Bilirubin Ql (U) See comment Negative [facility] Comment on above: Unable to obtain acc urate result due to color interference. Bilirubin.total [Mass/volume ] in Serum or PlasmaOrdered By: Aries Chavez on 07-31-2023 Bilirubin [Mass/Vol] 0.4 mg/dL 0.3-1.0 [facility] Calcium [Mass/volume] in Ser um or PlasmaOrdered By: Aries Chavez on 07-31-2023 Calcium [Mass/Vol] 9.6 mg/dL 8.6-10.3 [facility] Carbon dioxide, total [Moles /volume] in Serum or PlasmaOrdered By: Aries Chavez on 07-31-2023 CO2 [Moles/Vol] 24.3 mmol/L 21.0-31.0 [facility] Chloride [Moles/volume] in S leena or PlasmaOrdered By: Aries Chavez on 07-31-2023 Chloride [Moles/Vol] 94 mmol/L 98-107 [facility] Color Auto (U)Ordered By: Gregorio Chavez on 07-31-2023 Color (U) Elayne Yellow [facility] Complete Blood Count Auto Di ffon 07-31-2023 Basophils (Bld) [#/Vol] 0.2 10*3/uL Normal 0.0-0.2 [facility] Comment on above: Result Comment: PERF ORMED BY: [place] [address] PATHOLOGIST [employer] ARCHITECT STEFANO HOLT M.D. Performed By: #### F ER, CBC, CMP, FE and TIBC #### [address] Basophils/100 WBC (Bld) 2.0 % Normal . [facility] Comment on above: Performed By: #### F ER, CBC, CMP, FE and TIBC #### [address] Eosinophils (Bld) [#/Vol] 0.1 10*3/uL Normal 0.0-0.45 [facility] Comment on above: Performed By: #### F ER, CBC, CMP, FE and TIBC #### [address] Eosinophils/100 WBC (Bld) 1.8 % Normal . [facility] Comment on above: Performed By: #### F ER, CBC, CMP, FE and TIBC #### [address] Erythrocyte distribution width (RBC) [Ratio] 15.4 % High 11.9-15.3 [facility] Comment on above: Performed By: #### F ER, CBC, CMP, FE and TIBC #### [address] Hematocrit (Bld) [Volume fraction] 22.5 % Low 34.0-46.4 [facility] Comment on above: Performed By: #### F ER, CBC, CMP, FE and TIBC #### [address] Hemoglobin (Bld) [Mass/Vol] 7.3 g/dL Low 11.8-15.4 [facility] Comment on above: Performed By: #### F ER, CBC, CMP, FE and TIBC #### [address] Lymphocytes (Bld) [#/Vol] 1.8 10*3/uL Normal 1.00-4.8 [facility] Comment on above: Performed By: #### F ER, CBC, CMP, FE and TIBC #### [address] Lymphocytes/100 WBC (Bld) 22.3 % Normal . [facility] Comment on above: Performed By: #### F ER, CBC, CMP, FE and TIBC #### [address] MCH (RBC) [Entitic mass] 22.8 pg Low 24.7-34.3 [facility] Comment on above: Performed By: #### F ER, CBC, CMP, FE and TIBC #### [address] MCV (RBC) [Entitic vol] 70.8 fL Low 80-100 [facility] Comment on above: Performed By: #### F ER, CBC, CMP, FE and TIBC #### [address] Mean Corpuscular HGB Conc 32.3 g/dL Normal 32.0-35.0 [facility] Comment on above: Performed By: #### F ER, CBC, CMP, FE and TIBC #### [address] Monocytes (Bld) [#/Vol] 0.7 10*3/uL Normal 0.0-0.8 [facility] Comment on above: Performed By: #### F ER, CBC, CMP, FE and TIBC #### [address] Monocytes/100 WBC (Bld) 8.2 % Normal . [facility] Comment on above: Performed By: #### F ER, CBC, CMP, FE and TIBC #### [address] Neutrophils (Bld) [#/Vol] 5.4 10*3/uL Normal 1.8-7.7 [facility] Comment on above: Performed By: #### F ER, CBC, CMP, FE and TIBC #### [address] Neutrophils/100 WBC (Bld) 65.7 % Normal . [facility] Comment on above: Performed By: #### F ER, CBC, CMP, FE and TIBC #### [address] NRBC% 0.1 /100{WBC} Normal 0-0.5 [facility] Comment on above: Performed By: #### F ER, CBC, CMP, FE and TIBC #### [address] Platelet mean volume (Bld) [Entitic vol] 7.7 fL Normal 6.3-10.7 [facility] Comment on above: Performed By: #### F ER, CBC, CMP, FE and TIBC #### [address] Platelets (Bld) [#/Vol] 487 10*3/uL High 150-450 [facility] Comment on above: Performed By: #### F ER, CBC, CMP, FE and TIBC #### [address] RBC (Bld) [#/Vol] 3.18 10*6/uL Low 3.60-5.00 [facility] Comment on above: Performed By: #### F ER, CBC, CMP, FE and TIBC #### [address] WBC (Bld) [#/Vol] 8.2 10*3/uL Normal 3.8-11.6 [facility] Comment on above: Performed By: #### F ER, CBC, CMP, FE and TIBC #### [address] Comprehensive Metabolic Pane onesimo 07-31-2023 Albumin [Mass/Vol] 3.7 g/dL Normal 3.5-5.7 [facility] Comment on above: Performed By: #### F ER, CBC, CMP, FE and TIBC #### [facility] [address] [place] [address] Albumin/Globulin [Mass ratio] 0.8 {ratio} Normal [facility] Comment on above: Performed By: #### F ER, CBC, CMP, FE and TIBC #### [address] ALP [Catalytic activity/Vol] 91 U/L Normal 34-104 [facility] Comment on above: Performed By: #### F ER, CBC, CMP, FE and TIBC #### [address] ALT [Catalytic activity/Vol] 40 U/L Normal 7-52 [facility] Comment on above: Performed By: #### F ER, CBC, CMP, FE and TIBC #### [address] Anion gap [Moles/Vol] 14.0 mmol/L Normal 6.0-15.0 [facility] Comment on above: Performed By: #### F ER, CBC, CMP, FE and TIBC #### [facility] [address] [place] [address] AST [Catalytic activity/Vol] 12 U/L Low 13-39 [facility] Comment on above: Performed By: #### F ER, CBC, CMP, FE and TIBC #### [facility] [address] [place] [address] Bilirubin [Mass/Vol] 0.4 mg/dL Normal 0.3-1.0 [facility] Comment on above: Performed By: #### F ER, CBC, CMP, FE and TIBC #### [facility] [address] [place] [address] Calcium [Mass/Vol] 9.6 mg/dL Normal 8.6-10.3 [facility] Comment on above: Performed By: #### F ER, CBC, CMP, FE and TIBC #### [address] Chloride [Moles/Vol] 94 mmol/L Low 98-107 [facility] Comment on above: Performed By: #### F ER, CBC, CMP, FE and TIBC #### [facility] [address] CO2 [Moles/Vol] 24.3 mmol/L Normal 21.0-31.0 [facility] Comment on above: Performed By: #### F ER, CBC, CMP, FE and TIBC #### [facility] [address] Creatinine [Mass/Vol] 0.91 mg/dL Normal 0.60-1.20 [facility] Comment on above: Performed By: #### F ER, CBC, CMP, FE and TIBC #### [facility] [address] Creatinine Clr Calc Pharmacy 53.24 [facility] Comment on above: Performed By: #### F ER, CBC, CMP, FE and TIBC #### [facility] [address] [place] [address] [place] GFR/1.73 sq M.predicted MDRD (S/P/Bld) [Vol rate/Area] mL/min/{1.73_m2} [facility] Comment on above: Performed By: #### F ER, CBC, CMP, FE and TIBC #### [facility] [address] Globulin (S) [Mass/Vol] 4.6 g/dL [facility] Comment on above: Performed By: #### F ER, CBC, CMP, FE and TIBC #### [facility] [address] Glucose [Mass/Vol] 105 mg/dL High 70-100 [facility] Comment on above: Result Comment: [place] Glucose Reference Range is dependent on time and content of last meal. Glucose of more than 200 mg/dL in a nonstressed, ambulatory subject supports the diagnosis of Diabetes Mellitus. ADA recommended reference range Performed By: #### F ER, CBC, CMP, FE and TIBC #### [facility] [address] [place] [address] [place] Potassium [Moles/Vol] 5.3 mmol/L High 3.5-5.1 [facility] Comment on above: Performed By: #### F ER, CBC, CMP, FE and TIBC #### [facility] [address] Protein [Mass/Vol] 8.3 g/dL Normal 6.4-8.9 [facility] Comment on above: Performed By: #### F ER, CBC, CMP, FE and TIBC #### [facility] [address] Sodium [Moles/Vol] 127 mmol/L Low 136-145 [facility] Comment on above: Performed By: #### F ER, CBC, CMP, FE and TIBC #### [facility] [address] [place] [address] [place] Urea nitrogen [Mass/Vol] 15 mg/dL Normal 7-25 [facility] Comment on above: Performed By: #### F ER, CBC, CMP, FE and TIBC #### [address] Creatinine [Mass/volume] in Serum or PlasmaOrdered By: Aries Chavez on 07-31-2023 Creatinine [Mass/Vol] 0.91 mg/dL 0.60-1.20 [facility] Dipstick and Microscopicon 1 Appearance (U) Turbid Critically abnormal Clear [facility] Comment on above: Order Comment: Name Collection Type:: Voided Performed By: #### A DDONUAPLUS, CUU #### [place] [address] [place] Bacteria,Urine None Seen Normal None Seen [facility] Comment on above: Order Comment: Name Collection Type:: Voided Performed By: #### A DDONUAPLUS, CUU #### [facility] [address] [place] [address] [place] Bilirubin,Urine Normal Negative [facility] Comment on above: Order Comment: Name Collection Type:: Voided Result Comment: Unab le to obtain accurate result due to color interference. Performed By: #### A DDONUAPLUS, CUU #### [address] Color (U) Elayne Critically abnormal Yellow [facility] Comment on above: Order Comment: Name Collection Type:: Voided Performed By: #### A DDONUAPLUS, CUU #### [place] [address] [place] Glucose Ql (U) Normal Normal [facility] Comment on above: Order Comment: Name Collection Type:: Voided Result Comment: Unab le to obtain accurate result due to color interference. Performed By: #### A DDONUAPLUS, CUU #### [address] Hyaline Casts,Urine None Seen Normal 0-8 [facility] Comment on above: Order Comment: Name Collection Type:: Voided Result Comment: PERF ORMED BY: [place] [address] PATHOLOGIST [employer] ARCHITECT STEFANO HOLT M.D. Performed By: #### A DDONUAPLUS, CUU #### [address] Ketones Ql (U) Normal Negative [facility] Comment on above: Order Comment: Name Collection Type:: Voided Result Comment: Unab le to obtain accurate result due to color interference. Performed By: #### A DDONUAPLUS, CUU #### [address] Leukocyte esterase Test strip Ql (U) Normal Negative [facility] Comment on above: Order Comment: Name Collection Type:: Voided Result Comment: Unab le to obtain accurate result due to color interference. Performed By: #### A DDONUAPLUS, CUU #### [place] [address] [place] Nitrite,Urine Normal Negative [facility] Comment on above: Order Comment: Name Collection Type:: Voided Result Comment: Unab le to obtain accurate result due to color interference. Performed By: #### A DDONUAPLUS, CUU #### [place] [address] [place] Occult Blood,Urine Normal Negative [facility] Comment on above: Order Comment: Name Collection Type:: Voided Result Comment: Unab le to obtain accurate result due to color interference. Performed By: #### A DDONUAPLUS, CUU #### [place] [address] [place] pH,Urine Normal 5.0-9.0 [facility] Comment on above: Order Comment: Name Collection Type:: Voided Result Comment: Unab le to obtain accurate result due to color interference. Performed By: #### A DDONUAPLUS, CUU #### [address] Protein,Urine Normal Negative [facility] Comment on above: Order Comment: Name Collection Type:: Voided Result Comment: Unab le to obtain accurate result due to color interference. Performed By: #### A DDONUAPLUS, CUU #### [address] RBC,Urine 5-9 High 0-4 [facility] Comment on above: Order Comment: Name Collection Type:: Voided Performed By: #### A DDONUAPLUS, CUU #### [address] Specificy [place],Urine 1.015 Normal 1.001-1.030 [facility] Comment on above: Order Comment: Name Collection Type:: Voided Performed By: #### A DDONUAPLUS, CUU #### [place] [address] [place] Squamous Epithelial Cell,Urine 0-1 Normal 0-2 [facility] Comment on above: Order Comment: Name Collection Type:: Voided Performed By: #### A DDONUAPLUS, CUU #### [address] Urobilinogen,Urine Normal Normal [facility] Comment on above: Order Comment: Name Collection Type:: Voided Result Comment: Unab le to obtain accurate result due to color interference. Performed By: #### A TISHA CANTUU #### [facility] [address] [place] [address] WBC,Urine None Seen Normal 0-4 [facility] Comment on above: Order Comment: Name Collection Type:: Voided Performed By: #### A TISHA CANTUU #### [facility] [address] [place] [address] Eosinophils Auto (Bld) [#/Vo l]Ordered By: Aries Chavez on 07-31-2023 Eosinophils (Bld) [#/Vol] 0.1 10*3/uL 0.0-0.45 [facility] Eosinophils/100 WBC Auto (Bl d)Ordered By: Aries Chavez on 07-31-2023 Eosinophils/100 WBC (Bld) 1.8 % . [facility] Erythrocyte distribution wid th Auto (RBC) [Ratio]Ordered By: Aries Chavez on 07-31-2023 Erythrocyte distribution width (RBC) [Ratio] 15.4 % 11.9-15.3 [facility] Ferritinon 07-31-2023 Ferritin [Mass/Vol] 342.0 ng/mL High 11.0-306.8 [facility] Comment on above: Result Comment: PERF ORMED BY: [place] [address] PATHOLOGIST [employer] ARCHITECT STEFANO HOLT M.D. Performed By: #### F ER, CBC, CMP, FE and TIBC #### [facility] [address] [place] [address] Ferritin [Mass/volume] in Se rum or PlasmaOrdered By: Aries Chavez on 07-31-2023 Ferritin [Mass/Vol] 342.0 ng/mL 11.0-306.8 [facility] Globulin Calc (S) [Mass/Vol] Ordered By: Aries Chavez on 07-31-2023 Globulin (S) [Mass/Vol] 4.6 g/dL [facility] Glucose [Mass/volume] in Ser um or PlasmaOrdered By: Aries Chavez on 07-31-2023 Glucose [Mass/Vol] 105 mg/dL 70-100 [facility] Comment on above: ADA recommended refe rence rangeRandom Glucose Reference Range is dependent on time and content of last meal. Glucose of more than 200 mg/dL in a nonstressed, ambulatory subject supports the diagnosis of Diabetes Mellitus. Hematocrit Auto (Bld) [Volum e fraction]Ordered By: Aries Chavez on 07-31-2023 Hematocrit (Bld) [Volume fraction] 22.5 % 34.0-46.4 [facility] Hemoglobin [Mass/volume] in BloodOrdered By: Aries Chavez on 07-31-2023 Hemoglobin (Bld) [Mass/Vol] 7.3 g/dL 11.8-15.4 [facility] Iron [Mass/volume] in Serum or PlasmaOrdered By: Aries Chavez on 07-31-2023 Iron [Mass/Vol] 24 ug/dL 50-212 [facility] Iron and TIBC Profileon 07-04 0-202 % Iron Saturation 7.9 % Low 20-50 [facility] Comment on above: Performed By: #### F ER, CBC, CMP, FE and TIBC #### [facility] [address] Iron [Mass/Vol] 24 ug/dL Low 50-212 [facility] Comment on above: Performed By: #### F ER, CBC, CMP, FE and TIBC #### [facility] [address] [id number] [facility] Total Iron Binding Capacity 304 ug/dL Normal 255-450 [facility] Comment on above: Performed By: #### F ER, CBC, CMP, FE and TIBC #### [facility] [address] [id number] [place] Transferrin [Mass/Vol] 217 mg/dL Normal 203-362 [facility] Comment on above: Performed By: #### F ER, CBC, CMP, FE and TIBC #### [facility] [address] [id number] [place] Iron binding capacity [Mass/ volume] in Serum or PlasmaOrdered By: Aries Chavez on 07-31-2023 Iron binding capacity [Mass/Vol] 304 ug/dL 255-450 [facility] Iron saturation [Mass Fracti on] in Serum or PlasmaOrdered By: Aries Chavez on 07-31-2023 Iron saturation [Mass fraction] 7.9 % 20-50 [facility] Ketones Auto test strip (U) [Mass/Vol]Ordered By: Aries Chavez on 07-31-2023 Ketones (U) [Mass/Vol] See comment Negative [facility] Comment on above: Unable to obtain acc urate result due to color interference. Laboratory - UrinalysisOrder ed By: Aries Chavez on 07-31-2023 Hyaline casts LM Ql (Urine sed) None seen [LPF] 0-8 [facility] Leukocytes [#/volume] correc gabriel for nucleated erythrocytes in Blood by Automated counOrdered By: Aries Chavez on 07-31-2023 WBC corrected for nucl RBC Auto (Bld) [#/Vol] 8.2 10*3/uL 3.8-11.6 [facility] Lymphocytes Auto (Bld) [#/Vo l]Ordered By: Aries Chavez on 07-31-2023 Lymphocytes (Bld) [#/Vol] 1.8 10*3/uL 1.00-4.8 [facility] Lymphocytes/100 WBC Auto (Bl d)Ordered By: Aries Chavez on 07-31-2023 Lymphocytes/100 WBC (Bld) 22.3 % . [facility] MCH Auto (RBC) [Entitic mass ]Ordered By: Aries Chavez on 07-31-2023 MCH (RBC) [Entitic mass] 22.8 pg 24.7-34.3 [facility] MCHC Auto (RBC) [Mass/Vol]Or dered By: Aries Chavez on 07-31-2023 MCHC (RBC) [Mass/Vol] 32.3 g/dL 32.0-35.0 [facility] MCV Auto (RBC) [Entitic vol] Ordered By: Aries Chavez on 07-31-2023 MCV (RBC) [Entitic vol] 70.8 fL 80-100 [facility] Monocytes Auto (Bld) [#/Vol] Ordered By: Aries Chavez on 07-31-2023 Monocytes (Bld) [#/Vol] 0.7 10*3/uL 0.0-0.8 [facility] Monocytes/100 WBC Auto (Bld) Ordered By: Aries Chavez on 07-31-2023 Monocytes/100 WBC (Bld) 8.2 % . [facility] Neutrophils Auto (Bld) [#/Vo l]Ordered By: Aries Chavez on 07-31-2023 Neutrophils (Bld) [#/Vol] 5.4 10*3/uL 1.8-7.7 [facility] Neutrophils/100 WBC Auto (Bl d)Ordered By: Aries Chavez on 07-31-2023 Neutrophils/100 WBC (Bld) 65.7 % . [facility] Nitrite Test strip Ql (U)Ord ered By: Aries Chavez on 07-31-2023 Nitrite Ql (U) See comment Negative [facility] Comment on above: Unable to obtain acc urate result due to color interference. No Panel InformationOrdered By: Aries Chavez on 07-31-2023 Estimated GFR (CKD-EPI) > 60.0 mL/Min [facility] Creatinine Clearance (Chem 53.24 [facility] Nucleated erythrocytes [Pres ence] in Blood by Automated countOrdered By: Aries Chavez on 07-31-2023 Nucleated RBC Auto Ql (Bld) 0.1 /100{WBC} 0-0.5 [facility] Platelet mean volume Auto (B ld) [Entitic vol]Ordered By: Aries Chavez on 07-31-2023 Platelet mean volume (Bld) [Entitic vol] 7.7 fL 6.3-10.7 [facility] Platelets Auto (Bld) [#/Vol] Ordered By: Aries Chavez on 07-31-2023 Platelets (Bld) [#/Vol] 487 10*3/uL 150-450 [facility] Potassium [Moles/volume] in Serum or PlasmaOrdered By: Aries Chavez on 07-31-2023 Potassium [Moles/Vol] 5.3 mmol/L 3.5-5.1 [facility] Protein Auto test strip (U) [Mass/Vol]Ordered By: Aries Chavez on 07-31-2023 Protein (U) [Mass/Vol] See comment Negative F [facility] Comment on above: Unable to obtain acc urate result due to color interference. Protein [Mass/volume] in Ser um or PlasmaOrdered By: Aries Chavez on 07-31-2023 Protein [Mass/Vol] 8.3 g/dL 6.4-8.9 [facility] RBC Auto (Bld) [#/Vol]Ordere d By: Aries Chavez on 07-31-2023 RBC (Bld) [#/Vol] 3.18 10*6/uL 3.60-5.00 [facility] Serum or plasma albumin/glob ulin mass ratioOrdered By: Aries Chavez on 07-31-2023 Albumin/Globulin [Mass ratio] 0.8 {ratio} [facility] Serum or plasma anion gap de terminationOrdered By: Aries Chavez on 07-31-2023 Anion gap [Moles/Vol] 14.0 mmol/L 6.0-15.0 [facility] Sodium [Moles/volume] in Ser um or PlasmaOrdered By: Aries Chavez on 07-31-2023 Sodium [Moles/Vol] 127 mmol/L 136-145 [facility] Specific gravity Auto test s trip (U) [Rel density]Ordered By: Aries Chavez on 07-31-2023 Specific gravity (U) [Rel density] 1.015 1.001-1.030 [facility] Squamous epithelial cells de tection in urine sediment by light microscopyOrdered By: Aries Chavez on 07-31-2023 Epithelial cells.squamous LM Ql (Urine sed) 0-1 [HPF] 0-2 [facility] Transferrin [Mass/volume] in Serum or PlasmaOrdered By: Aries Chavez on 07-31-2023 Transferrin [Mass/Vol] 217 mg/dL 203-362 [facility] Urea nitrogen [Mass/volume] in Serum or PlasmaOrdered By: Aries Chavez on 07-31-2023 Urea nitrogen [Mass/Vol] 15 mg/dL 04-25 [facility] Urine Cultureon 07-31-2023 Bacteria identified Cx Nom (U) 50,000 colonies/ml mixed bacterial skin contaminants 2 Days PERFORMED BY: [place] [address] PATHOLOGIST [employer] ARCHITECT STEFANO HOLT M.D. Normal [facility] Comment on above: Performed By: #### A DDONUAPLUS, CUU #### [address] Urine bacteria detection by automated methodOrdered By: Aries Chavez on 07-31-2023 Bacteria Auto Ql (U) None seen None Seen [facility] Urine clarity by refractomet ry automatedOrdered By: Aries Chavez on 07-31-2023 Clarity Refractometry automated (U) Turbid Clear [facility] Urine culture routineOrdered By: Aries Chavez on 07-31-2023 Bacteria identified Cx Nom (U) 2 Days [facility] Urine glucose measurement by automated test strip (mass/volume)Ordered By: Aries Chavez on 07-31-2023 Glucose Auto test strip (U) [Mass/Vol] See comment Normal [facility] Comment on above: Unable to obtain acc urate result due to color interference. Urine hemoglobin detection b y automated test stripOrdered By: Aries Chavez on 07-31-2023 Hemoglobin Auto test strip Ql (U) See comment Negative [facility] Comment on above: Unable to obtain acc urate result due to color interference. Urine leukocyte esterase det ection by automated test stripOrdered By: Aries Chavez on 07-31-2023 Leukocyte esterase Auto test strip Ql (U) See comment Negative [facility] Comment on above: Unable to obtain acc urate result due to color interference. Urobilinogen Auto test strip (U) [Mass/Vol]Ordered By: Aries Chavez on 07-31-2023 Urobilinogen (U) [Mass/Vol] See comment Normal [facility] Comment on above: Unable to obtain acc urate result due to color interference. WBC Auto (Bld) [#/Vol]Ordere d By: Aries Scott on 07-31-2023 WBC (Bld) [#/Vol] 8.2 10*3/uL 3.8-11.6 [facility] pH Auto test strip (U)Ordere d By: Aries Scott on 07-31-2023 pH (U) See comment 5.0-9.0 [facility] Comment on above: Unable to obtain acc urate result due to color interference. Office Visiton 07-26-2023 Follow-up visit [id number] Perla Ibarra 1955 Provider Department Center 07/26/2023 MADDIE FLORES [facility] [place] Family History Problem Relation Age of Onset Tuberculosis Mother Heart attack Brother Heart failure Maternal Grandmother Heart attack Maternal Grandfather Family Status - Relation Status Age at Mother Brother Maternal Grandmother Maternal Grandfather Level of Service:04678 MS OFFICE/OUTPATIENT ESTABLISHED MOD MDM 30-39 MIN Reason for Visit and Comments: renal mass [Other] - Pt c/o pelvic pain and gross hematuria Normal [facility] Office Visiton 05-18-2023 Follow-up visit [id number] Perla Ibarra 1955 Provider Department Center 05/18/2023 [id number] DELGADO MIGUEL [facility] Family History Problem Relation Age of Onset Tuberculosis Mother Heart attack Brother Heart failure Maternal Grandmother Heart attack Maternal Grandfather Family Status - Relation Status Age at Mother Brother Maternal Grandmother Maternal Grandfather Level of Service:23582 MS OFFICE/OUTPATIENT ESTABLISHED MOD MDM 30-39 MIN Reason for Visit and Comments: Follow-up [980879] - 1 month follow up - go over labs, echo and BP Normal [facility] Office Visiton 04-21-2023 Follow-up visit [id number] Perla Ibarra 1955 Provider Department Center 04/21/2023 [id number] [facility] Family History Problem Relation Age of Onset Tuberculosis Mother Heart attack Brother Heart failure Maternal Grandmother Heart attack Maternal Grandfather Family Status - Relation Status Age at Mother Brother Maternal Grandmother Maternal Grandfather Level of Service:54577 MS OFFICE/OUTPATIENT ESTABLISHED LOW MDM 20-29 MIN Normal [facility] Office Visiton 03-21-2023 Follow-up visit [id number] Perla Ibarra 1955 F Date Provider Department Center 03/21/2023 [id number] MCKEON [facility] Family History Problem Relation Age of Onset Tuberculosis Mother Heart attack Brother Heart failure Maternal Grandmother Heart attack Maternal Grandfather Family Status - Relation Status Age at Mother Brother Maternal Grandmother Maternal Grandfather Level of Service:64468 MS OFFICE/OUTPATIENT ESTABLISHED MOD MDM 30-39 MIN Reason for Visit and Comments: Follow-up [318213] - 1 month follow up Normal [facility] PROF CHEM 8 (BAS METB)on Anion gap [Moles/Vol] 13.5 mmol/L Normal [facility] Comment on above: Performed By: #### N A #### [facility] [address] [place] [address] Dr. Allen Smith Calcium [Mass/Vol] 9.6 mg/dL Normal 8.5-10.1 [facility] Comment on above: Performed By: #### N A #### [facility] [address] [address] [address] Allen Smith Chloride [Moles/Vol] 95 mmol/L Critically low 98-107 [facility] Comment on above: Performed By: #### N A #### [facility] [address] [address] [address] Allen Smith CO2 [Moles/Vol] 27.1 mmol/L Normal 21.0-32.0 [facility] Comment on above: Performed By: #### N A #### [facility] [address] [address] [address] Allen Smith Creatinine [Mass/Vol] 0.93 mg/dL Normal 0.55-1.02 [facility] Comment on above: Performed By: #### N A #### [facility] [address] [place] [address] Dr. Allen Smith EGFR-AF SOMALI >60 Normal >=60 [facility] Comment on above: Performed By: #### N A #### [facility] [address] [address] [address] Allen Smith EGFR-NON AF SOMALI 60 mL/min/1.73m2 Normal >=60 [facility] Comment on above: Performed By: #### N A #### [facility] [address] [address] [address] Allen Smith Glucose [Mass/Vol] 123 mg/dL Critically high 74-106 [facility] Comment on above: Performed By: #### N A #### [facility] [address] [place] [address] Dr. Allen Smith Potassium [Moles/Vol] 4.6 mmol/L Normal 3.5-5.1 [facility] Comment on above: Performed By: #### N A #### [facility] [address] [place] [address] Dr. Allen Smith Sodium [Moles/Vol] 131 mmol/L Critically low 136-145 [facility] Comment on above: Performed By: #### N A #### [facility] [address] [place] [address] Dr. Allen Smith Urea nitrogen [Mass/Vol] 8.0 mg/dL Normal 7.0-18.0 [facility] Comment on above: Performed By: #### N A #### [facility] [address] [place] [address] Dr. Allen Smith Urea nitrogen/Creatinine [Mass ratio] 8.6 mg/mg Normal [facility] Comment on above: Performed By: #### N A #### [facility] [address] [place] [address] Dr. Allen Smith BNPon 02-07-2023 Natriuretic peptide B (Bld) [Mass/Vol] 1572.0 pg/mL Critically high <=900.0 [facility] Comment on above: Performed By: #### N A #### [facility] [address] [address] [address] Allen Smith CBC AUTO DIFFon 02-07-2023 BASO # 0.1 103/ul Normal 0.0-0.1 [facility] Comment on above: Performed By: #### C BC #### [facility] [address] [address] [address] Allen Smith Basophils/100 WBC (Bld) 0.7 % Normal 0.2-2.0 [facility] Comment on above: Performed By: #### C BC #### [facility] [address] [place] [address] Dr. Allen Smith EO # 0.2 103/ul Normal 0.0-0.7 [facility] Comment on above: Performed By: #### C BC #### [facility] [address] [place] [address] Dr. Allen Smith Eosinophils/100 WBC (Bld) 2.8 % Normal 0.9-7.0 [facility] Comment on above: Performed By: #### C BC #### [facility] [address] [place] [address] Dr. Allen Smith Erythrocyte distribution width (RBC) [Ratio] 15.2 % Critically high 11.0-15.0 [facility] Comment on above: Performed By: #### C BC #### [facility] [address] [place] [address] Dr. Allen Smith Hematocrit (Bld) [Volume fraction] 29.9 % Critically low 36.0-48.0 [facility] Comment on above: Performed By: #### C BC #### [facility] [address] [place] [address] Dr. Allen Smith Hemoglobin (Bld) [Mass/Vol] 9.4 g/dL Critically low 12.0-16.0 [facility] Comment on above: Performed By: #### C BC #### [facility] [address] [place] [address] Dr. Allen Smith IG # 0.03 10e3/ul Normal 0.00-0.03 [facility] Comment on above: Performed By: #### C BC #### [facility] [address] [place] [address] Dr. Allen Smith IG % 0.4 % Normal 0.0-0.5 [facility] Comment on above: Performed By: #### C BC #### [facility] [address] [place] [address] Dr. Allen Smith LYMPH # 1.5 103/ul Normal 1.2-3.8 [facility] Comment on above: Performed By: #### C BC #### [facility] [address] [place] [address] Dr. Allen Smith Lymphocytes/100 WBC (Bld) 18.0 % Critically low 20.5-60.0 [facility] Comment on above: Performed By: #### C BC #### [facility] [address] [place] [address] Dr. Allen Smith MANUAL DIFF REQ NO Normal [facility] Comment on above: Performed By: #### C BC #### [facility] [address] [place] [address] Dr. Allen Smith MCH (RBC) [Entitic mass] 24.7 pg Critically low 26.7-34.0 [facility] Comment on above: Performed By: #### C BC #### [facility] [address] [place] [address] Dr. Allen Smith MCHC (RBC) [Mass/Vol] 31.4 g/dL Normal 29.9-35.2 [facility] Comment on above: Performed By: #### C BC #### [facility] [address] [place] [address] Dr. Allen Smith MCV (RBC) [Entitic vol] 78.7 fL Critically low 81.0-99.0 [facility] Comment on above: Performed By: #### C BC #### [facility] [address] [place] [address] Dr. Allen Smith MONO # 0.8 103/ul Normal 0.3-0.8 [facility] Comment on above: Performed By: #### C BC #### [facility] [address] [place] [address] Dr. Allen Smith Monocytes/100 WBC (Bld) 9.5 % Normal 1.7-12.0 [facility] Comment on above: Performed By: #### C BC #### [facility] [address] [place] [address] Dr. Allen Smith NEUT # 5.7 103/ul Normal 1.4-6.5 [facility] Comment on above: Performed By: #### C BC #### [facility] [address] [place] [address] Dr. Allen Smith Neutrophils/100 WBC (Bld) 68.6 % Normal 43.0-75.0 [facility] Comment on above: Performed By: #### C BC #### [facility] [address] [place] [address] Dr. Allen Smith Platelet mean volume (Bld) [Entitic vol] 10.2 fL Normal 9.5-13.5 [facility] Comment on above: Performed By: #### C BC #### [facility] [address] [place] [address] Dr. Allen Smith PLT 324 103/ul Normal 150-450 [facility] Comment on above: Performed By: #### C BC #### [facility] [address] [place] [address] Dr. Allen Smith RBC 3.80 106/ul Critically low 4.20-5.40 [facility] Comment on above: Performed By: #### C BC #### [facility] [address] [place] [address] Dr. Allen Smith WBC 8.3 103/ul Normal 4.0-11.0 [facility] Comment on above: Performed By: #### C BC #### [facility] [address] [place] [address] Dr. Allen [place] Office Visiton 02-07-2023 Follow-up visit [id number] Perla Ibarra 1955 F Date Provider Department Center 02/07/2023 [id number] MCKEON [facility] Family History Problem Relation Age of Onset Tuberculosis Mother Heart attack Brother Heart failure Maternal Grandmother Heart attack Maternal Grandfather Family Status - Relation Status Age at Mother Brother Maternal Grandmother Maternal Grandfather Level of Service:66224 MS OFFICE/OUTPATIENT ESTABLISHED MOD MDM 30-39 MIN Reason for Visit and Comments: Congestive Heart Failure [127] Normal [facility] PROF CHEM 8 (BAS METB)on Anion gap [Moles/Vol] 7.5 mmol/L Normal [facility] Comment on above: Performed By: #### N A #### [facility] [address] [address] [address] Allen Smith Calcium [Mass/Vol] 9.1 mg/dL Normal 8.5-10.1 [facility] Comment on above: Performed By: #### N A #### [facility] [address] [address] [address] Allen Smith Chloride [Moles/Vol] 97 mmol/L Critically low 98-107 [facility] Comment on above: Performed By: #### N A #### [facility] [address] [address] [address] Allen Smith CO2 [Moles/Vol] 30.9 mmol/L Normal 21.0-32.0 [facility] Comment on above: Performed By: #### N A #### [facility] [address] [address] [address] Allen Smith Creatinine [Mass/Vol] 0.84 mg/dL Normal 0.55-1.02 [facility] Comment on above: Performed By: #### N A #### [facility] [address] [address] [address] Allen Smith EGFR-AF SOMALI >60 Normal >=60 [facility] Comment on above: Performed By: #### N A #### [facility] [address] [address] [address] Allen Smith EGFR-NON AF SOMALI >60 Normal >=60 [facility] Comment on above: Performed By: #### N A #### [facility] [address] [place] [address] Dr. Allen Smith Glucose [Mass/Vol] 111 mg/dL Critically high 74-106 T [facility] Comment on above: Performed By: #### N A #### [facility] [address] [address] [address] Allen Smith Potassium [Moles/Vol] 4.4 mmol/L Normal 3.5-5.1 [facility] Comment on above: Performed By: #### N A #### [facility] [address] [address] [address] Allen Smith Sodium [Moles/Vol] 131 mmol/L Critically low 136-145 Th [facility] Comment on above: Performed By: #### N A #### [facility] [address] [address] [address] Allen Smith Urea nitrogen [Mass/Vol] 8.0 mg/dL Normal 7.0-18.0 [facility] Comment on above: Performed By: #### N A #### [facility] [address] [address] [address] Allen Smith Urea nitrogen/Creatinine [Mass ratio] 9.5 mg/mg Normal [facility] Comment on above: Performed By: #### N A #### [facility] [address] [address] [address] Allen Smith 36on 02-06-2023 36 Paz needs to ca ncel please call her to reschedule # [phone]. [facility] Telephoneon 02-06-2023 Telephone [phone] Perla Ibarra 1955 F Date Provider Department Center 02/06/2023 [id number], [facility] Family History Problem Relation Age of Onset Tuberculosis Mother Heart attack Brother Heart failure Maternal Grandmother Heart attack Maternal Grandfather Family Status - Relation Status Age at Mother Brother Maternal Grandmother Maternal Grandfather [facility] 36on 02-01-2023 36 Er Tech reached out t o hospitalist team who called in scripts for patient's nausea. [facility] Documentationon 02-01-2023 Documentation [id number] Perla Ibarra 1955 F Date Provider Department Center 02/01/2023 [facility] No family history on file Reason for Visit and Comments: HF inpatient survey [Other] - HF inpatient satisfaction survey sent. [facility] Telephoneon 02-01-2023 Telephone [phone] Perla Ibarra 1955 F Date Provider Department Center 02/01/2023 DISHA [facility] No family history on file Reason for Visit and Comments: HF post discharge call [Other] - Discharge date: 01/31/23 Spoke with: pt Follow-up: changed from 02/06/23 to 02/07/23 at 1500. Pt requested appt closer to her home. Home meds were reviewed with pt. Per pt, she is still having some issues with nausea. Er Tech will reach out to discharge provider. [facility] 30on 01-31-2023 30 Phoned [facility] in regard to home oxygen as assembly instructions writer had not received a call back from [employer]. Rep for [facility] did not have information about oxygen set up etc. Rep stated that she would investigate and call assembly instructions writer back. Er Tech phoned bedside RN who stated that home oxygen was delivered to patients bedside, and patient is discharge ready. No further OTM needs. [facility] 30 This report has been cancelled. [facility] 30 Home oxygen script a nd required documentation faxed to [employer] for fulfillment. Patient will discharge to home today with family. Er Tech phone and spoke with patients an Harmon regarding patients care. All questions answered. [facility] BASIC METABOLIC PANELon 05-0 Anion gap [Moles/Vol] 12 mmol/L Normal 7-20 [facility] Comment on above: Performed By: #### L [id number] #### [facility] ([facility]) [address] [place] [address] Calcium [Mass/Vol] 8.6 mg/dL Normal 8.6-10.3 [facility] Comment on above: Performed By: #### L [id number] #### [facility] [address] [place] [address] Chloride [Moles/Vol] 91 mmol/L Low 98-107 [facility] Comment on above: Performed By: #### L [id number] #### [facility] ([facility]) [address] [place] [address] CO2 [Moles/Vol] 30 mmol/L Normal 21-31 [facility] Comment on above: Performed By: #### L [id number] #### [facility] ([facility]) [address] [place] [address] Creatinine [Mass/Vol] 0.68 mg/dL Normal 0.60-1.20 [facility] Comment on above: Performed By: #### L [id number] #### [facility] ([facility]) [address] [place] [address] GLOMERULAR FILTRATION RATE ML/MIN/1.73 SQ M.PREDICTED 94.8 mL/min/1.73m*2 Normal >60.0 [facility] Comment on above: Result Comment: The [facility]???s estimated glomerular filtration rate (eGFR) will no longer include consideration of race in its calculation. The National Kidney Foundation???s eGFR Task Force developed new recommendations for the estimation of the glomerular filtration rate in the [place] They recommend immediate implementation of the new equation refit without the race variable in all laboratories because the calculation does not include race. In addition to not including race in the calculation and reporting, it included diversity in its development, and has acceptable performance characteristics and potential consequences that do not disproportionately affect any one group of individuals. Performed By: #### L [id number] #### [facility] ([facility]) [address] [place] [address] Glucose [Mass/Vol] 96 mg/dL Normal 70-100 [facility] Comment on above: Performed By: #### L [id number] #### [facility] [address] [place] [address] Potassium [Moles/Vol] 4.2 mmol/L Normal 3.5-5.1 [facility] Comment on above: Performed By: #### L [id number] #### [facility] ([facility]) [address] [place] [address] Sodium [Moles/Vol] 129 mmol/L Low 136-145 [facility] Comment on above: Performed By: #### L [id number] #### [facility] ([facility]) [address] [place] [address] Urea nitrogen [Mass/Vol] 22 mg/dL Normal 7-25 [facility] Comment on above: Performed By: #### L [id number] #### [facility] ([facility]) [address] [place] [address] UREA NITROGEN/CREATININE (MASS RATIO) IN SER/PLAS 32.4 Normal [facility] Comment on above: Performed By: #### L [id number] #### [facility] ([facility]) [address] [place] [address] CBC WITH AUTO DIFFERENTIALon 01-31-2023 Basophils (Bld) [#/Vol] 0.02 10*3/uL Normal 0.00-0.20 [facility] Comment on above: Performed By: #### L [id number] #### [facility] ([facility]) [address] [place] [address] Basophils/100 WBC (Bld) 0.2 % Normal 0.0-1.0 [facility] Comment on above: Performed By: #### L [id number] #### [facility] ([facility]) [address] [place] [address] Eosinophils (Bld) [#/Vol] 0.04 10*3/uL Normal 0.00-0.50 [facility] Comment on above: Performed By: #### L [id number] #### [facility] [address] [place] [address] Eosinophils/100 WBC (Bld) 0.3 % Normal 0.0-6.0 [facility] Comment on above: Performed By: #### L [id number] #### [facility] ([facility]) [address] [place] [address] Erythrocyte distribution width (RBC) [Ratio] 14.1 % Normal 11.5-15.0 [facility] Comment on above: Performed By: #### L [id number] #### [facility] ([facility]) [address] [place] [address] ERYTHROCYTE MEAN CORPUSCULAR HEMOGLOBIN CONCENTRATION (G/DL) BY AUTOMATED 32.1 g/dL Normal 32.0-35.0 [facility] Comment on above: Performed By: #### L [id number] #### [facility] ([facility]) [address] [place] [address] Hematocrit (Bld) [Volume fraction] 32.7 % Low 36.0-48.0 [facility] Comment on above: Performed By: #### L [id number] #### [facility] ([facility]) [address] [place] [address] Hemoglobin (Bld) [Mass/Vol] 10.5 g/dL Low 12.0-15.0 [facility] Comment on above: Performed By: #### L [id number] #### [facility] ([facility]) [address] [place] [address] Immature granulocytes (Bld) [#/Vol] 0.12 10*3/uL Normal 0.00-0.20 [facility] Comment on above: Performed By: #### L [id number] #### [facility] ([facility]) [address] [place] [address] Immature granulocytes/100 WBC (Bld) 1.0 % Normal 0.0-1.0 [facility] Comment on above: Performed By: #### L [id number] #### [facility] ([facility]) [address] [place] [address] Lymphocytes (Bld) [#/Vol] 3.05 10*3/uL Normal 1.20-4.00 [facility] Comment on above: Performed By: #### L [id number] #### [facility] ([facility]) [address] [place] [address] Lymphocytes/100 WBC (Bld) 26.4 % Normal 20.0-45.0 [facility] Comment on above: Performed By: #### L [id number] #### [facility] ([facility]) [address] [place] [address] MCH (RBC) [Entitic mass] 24.2 pg Low 27.0-33.0 [facility] Comment on above: Performed By: #### L [id number] #### [facility] ([facility]) [address] [place] [address] MCV (RBC) [Entitic vol] 75.3 fL Low 82.0-98.0 [facility] Comment on above: Performed By: #### L [id number] #### [facility] ([facility]) [address] [place] [address] Monocytes (Bld) [#/Vol] 1.04 10*3/uL High 0.10-1.00 [facility] Comment on above: Performed By: #### L [id number] #### [facility] ([facility]) [address] [place] [address] Monocytes/100 WBC (Bld) 9.0 % Normal 5.0-12.0 [facility] Comment on above: Performed By: #### L [id number] #### [facility] ([facility]) [address] [place] [address] Neutrophils (Bld) [#/Vol] 7.27 10*3/uL Normal 1.60-7.60 [facility] Comment on above: Performed By: #### L [id number] #### [facility] ([facility]) [address] [place] [address] Neutrophils/100 WBC (Bld) 63.1 % Normal 40.0-72.0 [facility] Comment on above: Performed By: #### L [id number] #### [facility] ([facility]) [address] [place] [address] NRBC (PER 100 WBCS) BY AUTOMATED COUNT 0.0 % Normal 0 [facility] Comment on above: Performed By: #### L [id number] #### [facility] ([facility]) [address] [place] [address] PLATELETS (10*3/UL) IN BLOOD AUTOMATED COUNT 334 10*3/uL Normal 150-400 [facility] Comment on above: Performed By: #### L [id number] #### [facility] ([facility]) [address] [place] [address] RBC (Bld) [#/Vol] 4.34 10*6/uL Normal 3.80-5.00 [facility] Comment on above: Performed By: #### L [id number] #### [facility] ([facility]) [address] [place] [address] WBC (Bld) [#/Vol] 11.54 10*3/uL High 4.00-10.60 [facility] Comment on above: Performed By: #### L [id number] #### [facility] ([facility]) [address] [place] [address] MAGNESIUMon 01-31-2023 Magnesium [Mass/Vol] 1.9 mg/dL Normal 1.9-2.7 [facility] Comment on above: Performed By: #### L [id number] #### [facility] ([facility]) [address] [place] [address] NURSNOTEon 01-31-2023 NURSNOTE Patient ready for discharge paperwork, follow up appointments, and medications reviewed with patient and family verbalized understanding. Medications provided by imeds, O2 supplies delivered by oxygen company for patient to discharge with Normal [facility] POCT GLUCOSE METER UNSOLICIT ED RESULTSon 01-31-2023 Glucose [Mass/Vol] 136 mg/dL High 70-105 [facility] Comment on above: Result Comment: [email or web address] Performed By: #### L [id number] #### [facility] ([facility]) [address] [place] [address] Glucose [Mass/Vol] 164 mg/dL High 70-105 [facility] Comment on above: Result Comment: [email or web address] Performed By: #### L [id number] #### [facility] ([facility]) [address] [place] [address] Glucose [Mass/Vol] 129 mg/dL High 70-105 [facility] Comment on above: Result Comment: [email or web address] Performed By: #### L [id number] #### [facility] ([facility]) [address] [facility] [place] [address] 30on 01-30-2023 30 Patient initially presented to OSH w/ SOB. Ultimately required intubation, and transfer to [facility] r/t NSTEMI. Admitted to MICU. Started on IV abx. Extubated 01/27. CT A/P on 01/28 revealed large right renal mass which is likely a primary malignancy. consult: MRI today to further delineate renal mass. No current intervention. Will see pt OP to discuss surgical options for renal mass. PT/OT rec SNF vs home. From home. No current OTM needs identified. [facility] will continue to follow and assist with any discharge planning needs. Normal [facility] B-TYPE NATRIURETIC PEPTIDEon 01-30-2023 Natriuretic peptide B (Bld) [Mass/Vol] 479 pg/mL High 0-100 [facility] Comment on above: Performed By: #### L [id number] #### [facility] ([facility]) [address] [facility] [place] [address] BASIC METABOLIC PANELon 05- Anion gap [Moles/Vol] 11 mmol/L Normal 7-20 [facility] Comment on above: Performed By: #### L [id number] #### [facility] ([facility]) [address] [facility] [place] [address] Calcium [Mass/Vol] 8.6 mg/dL Normal 8.6-10.3 [facility] Comment on above: Performed By: #### L [id number] #### [facility] ([facility]) [address] [place] [address] Chloride [Moles/Vol] 93 mmol/L Low 98-107 [facility] Comment on above: Performed By: #### L [id number] #### [facility] ([facility]) [address] [place] [address] CO2 [Moles/Vol] 30 mmol/L Normal 21-31 [facility] Comment on above: Performed By: #### L [id number] #### [facility] ([facility]) [address] [place] [address] Creatinine [Mass/Vol] 0.64 mg/dL Normal 0.60-1.20 [facility] Comment on above: Performed By: #### L [id number] #### [facility] ([facility]) [address] [place] [address] GLOMERULAR FILTRATION RATE ML/MIN/1.73 SQ M.PREDICTED 96.2 mL/min/1.73m*2 Normal >60.0 [facility] Comment on above: Result Comment: The [facility]???s estimated glomerular filtration rate (eGFR) will no longer include consideration of race in its calculation. The National Kidney Foundation???s eGFR Task Force developed new recommendations for the estimation of the glomerular filtration rate in the [place] They recommend immediate implementation of the new equation refit without the race variable in all laboratories because the calculation does not include race. In addition to not including race in the calculation and reporting, it included diversity in its development, and has acceptable performance characteristics and potential consequences that do not disproportionately affect any one group of individuals. Performed By: #### L [id number] #### [facility] ([facility]) [address] [place] [address] Glucose [Mass/Vol] 93 mg/dL Normal 70-100 [facility] Comment on above: Performed By: #### L [id number] #### [facility] ([facility]) [address] [place] [address] Potassium [Moles/Vol] 3.7 mmol/L Normal 3.5-5.1 [facility] Comment on above: Performed By: #### L [id number] #### [facility] ([facility]) [address] [place] [address] Sodium [Moles/Vol] 130 mmol/L Low 136-145 [facility] Comment on above: Performed By: #### L [id number] #### [facility] [address] [place] [address] Urea nitrogen [Mass/Vol] 25 mg/dL Normal 7-25 [facility] Comment on above: Performed By: #### L [id number] #### [facility] [address] [place] [address] UREA NITROGEN/CREATININE (MASS RATIO) IN SER/PLAS 39.1 Normal [facility] Comment on above: Performed By: #### L [id number] #### [facility] [address] [place] [address] CBCon 01-30-2023 Erythrocyte distribution width (RBC) [Ratio] 14.5 % Normal 11.5-15.0 [facility] Comment on above: Performed By: #### L [id number] #### [facility] ([facility]) [address] [place] [address] ERYTHROCYTE MEAN CORPUSCULAR HEMOGLOBIN CONCENTRATION (G/DL) BY AUTOMATED 32.5 g/dL Normal 32.0-35.0 [facility] Comment on above: Performed By: #### L [id number] #### [facility] [address] [place] [address] Hematocrit (Bld) [Volume fraction] 32.6 % Low 36.0-48.0 [facility] Comment on above: Performed By: #### L [id number] #### [facility] ([facility]) [address] [place] [address] Hemoglobin (Bld) [Mass/Vol] 10.6 g/dL Low 12.0-15.0 [facility] Comment on above: Performed By: #### L [id number] #### [facility] ([facility]) [address] [place] [address] MCH (RBC) [Entitic mass] 24.7 pg Low 27.0-33.0 [facility] Comment on above: Performed By: #### L [id number] #### [facility] ([facility]) [address] [place] [address] MCV (RBC) [Entitic vol] 75.8 fL Low 82.0-98.0 [facility] Comment on above: Performed By: #### L [id number] #### [facility] ([facility]) [address] [place] [address] PLATELETS (10*3/UL) IN BLOOD AUTOMATED COUNT 330 10*3/uL Normal 150-400 [facility] Comment on above: Performed By: #### L [id number] #### [facility] ([facility]) [address] [place] [address] RBC (Bld) [#/Vol] 4.30 10*6/uL Normal 3.80-5.00 [facility] Comment on above: Performed By: #### L [id number] #### [facility] ([facility]) [address] [place] [address] WBC (Bld) [#/Vol] 15.38 10*3/uL High 4.00-10.60 [facility] Comment on above: Performed By: #### L [id number] #### [facility] ([facility]) [address] [place] [address] MAGNESIUMon 01-30-2023 Magnesium [Mass/Vol] 2.1 mg/dL Normal 1.9-2.7 [facility] Comment on above: Performed By: #### L [id number] ####[facility] ([facility])[address] [facility] [place] [address] MR ABDOMEN RENAL WO CONTRAST on 01-30-2023 MR ABDOMEN RENAL WO CONTRAST MRI abdomen without contrast COMPARISON: CT abdomen and pelvis 01/28/2023 HISTORY: Right renal mass, rule out IVC thrombus. TECHNIQUE: Multisequence, multiplanar MRI of the abdomen performed without contrast FINDINGS: Known heterogeneous right renal mass measuring 10.7 craniocaudal dimension, 8.3 cm AP diameter, and 8.2 cm transverse diameter surrounding neovascularity. There is extension of tumor thrombus into the right renal vein and inferior vena cava. There is extension to the level of the inferior aspect of the intrahepatic IVC. The mass abuts the right psoas muscle anteriorly with invasion of the muscle not excluded. There is also mild mass effect on the right hepatic lobe. No discrete liver lesion. Multiple gallstones. The gallbladder is distended. No biliary duct dilatation. No gross evidence for choledocholithiasis, not optimally evaluated on this exam. No pancreatic ductal dilatation. Right adrenal gland is grossly unremarkable. There is a 1.5 cm left adrenal nodule, difficult to assess for signal dropout on opposed phase imaging due to patient motion artifact. A benign adenoma is favored. Spleen is unremarkable. Small benign-appearing left renal cysts with no imaging follow-up required. Reticulonodular opacities at the lung bases possibly sequela of an infectious or inflammatory process not well assessed on this exam. IMPRESSION: 1. Large right renal mass consistent with primary malignancy, with tumor thrombus extension into the right renal vein and IVC. Process extends to the level of the inferior aspect of the intrahepatic IVC. The mass abuts the right psoas muscle without invasion of the muscle not excluded. 2. Extensive reticular nodular opacities at the lung bases not well assessed on this exam, possibly sequela of an infectious or inflammatory process. Superimposed small pulmonary metastasis is not excluded given findings a large right renal mass. Follow-up CT chest recommended after patient's acute condition resolves for further characterization. Electronically signed: Severino Velazquez. Normal [facility] PHOSPHORUSon 01-30-2023 Magnesium [Mass/Vol] 3.1 mg/dL Normal 2.5-5.0 [facility] Comment on above: Performed By: #### L [id number] #### [facility] ([facility]) [address] [place] [address] POCT GLUCOSE METER UNSOLICIT ED RESULTSon 01-30-2023 Glucose [Mass/Vol] 177 mg/dL High 70-105 [facility] Comment on above: Result Comment: [email or web address] Performed By: #### L [id number] #### [facility] ([facility]) [address] [place] [address] Glucose [Mass/Vol] 135 mg/dL High 70-105 [facility] Comment on above: Result Comment: [email or web address] Performed By: #### L [id number] #### [facility] ([facility]) [address] [place] [address] Glucose [Mass/Vol] 105 mg/dL Normal 70-105 [facility] Comment on above: Result Comment: [email or web address] Performed By: #### L [id number] #### [facility] ([facility]) [address] [place] [address] Glucose [Mass/Vol] 109 mg/dL High 70-105 [facility] Comment on above: Result Comment: [email or web address] Performed By: #### L [id number] #### [facility] ([facility]) [address] [place] [address] 30on 01-29-2023 30 The patient is Moder ately Stable - Low risk of patient condition declining or worsening The patient's goals for the shift include comfort, getting stronger The clinical goals for the shift include stable vitals, increased movement Problem: Fall Risk Goal: LTG-Increase mobility and strength Outcome: Progressing Goal: LTG-No falls Outcome: Progressing Goal: STG-Uses assitive devices properly Outcome: Progressing Goal: STG-Ask for assistance before standing Outcome: Progressing Goal: STG-Allows staff to assist prior to standing and ambulating Outcome: Progressing Goal: STG-Use call light prior to getting out of bed Outcome: Progressing Problem: Neurosensory - Adult Goal: Achieves stable or improved neurological status Outcome: Progressing Goal: Absence of seizures Outcome: Progressing Goal: Remains free of injury related to seizures activity Outcome: Progressing Goal: Achieves maximal functionality and self care Outcome: Progressing Problem: Respiratory - Adult Goal: Achieves optimal ventilation and oxygenation Outcome: Progressing Problem: Cardiovascular - Adult Goal: Maintains optimal cardiac output and hemodynamic stability Outcome: Progressing Goal: Absence of cardiac dysrhythmias or at baseline Outcome: Progressing Problem: Skin/Tissue Integrity - Adult Goal: Skin integrity remains intact Outcome: Progressing Goal: Incisions, wounds, or drain sites healing without S/S of infection Outcome: Progressing Goal: Oral mucous membranes remain intact Outcome: Progressing Problem: Musculoskeletal - Adult Goal: Return mobility to safest level of function Outcome: Progressing Goal: Maintain proper alignment of affected body part Outcome: Progressing Goal: Return ADL status to a safe level of function Outcome: Progressing Problem: Gastrointestinal - Adult Goal: Minimal or absence of nausea and vomiting Outcome: Progressing Goal: Maintains or returns to baseline bowel function Outcome: Progressing Goal: Maintains adequate nutritional intake Outcome: Progressing Goal: Establish and maintain optimal ostomy function Outcome: Progressing Problem: Genitourinary - Adult Goal: Absence of urinary retention Outcome: Progressing Goal: Urinary catheter remains patent Outcome: Progressing Problem: Infection - Adult Goal: Absence of infection at discharge Outcome: Progressing Goal: Absence of infection during hospitalization Outcome: Progressing Goal: Absence of fever/infection during anticipated neutropenic period Outcome: Progressing Problem: Metabolic/Fluid and Electrolytes - Adult Goal: Electrolytes maintained within normal limits Outcome: Progressing Goal: Hemodynamic stability and optimal renal function maintained Outcome: Progressing Goal: Glucose maintained within prescribed range Outcome: Progressing Problem: Hematologic - Adult Goal: Maintains hematologic stability Outcome: Progressing Normal [facility] 30 Problem: Neurosensor y - Adult Goal: Achieves stable or improved neurological status Recent Flowsheet Documentation Taken 01/28/20232099 by Chastity Velasquez RN Achieves stable or improved neurological status: Assess for and report changes in neurological status Initiate measures to prevent increased intracranial pressure Maintain blood pressure and fluid volume within ordered parameters to optimize cerebral perfusion and minimize risk of hemorrhage Monitor temperature, glucose, and sodium. Initiate appropriate interventions as ordered Goal: Absence of seizures Recent Flowsheet Documentation Taken 01/28/20232099 by Chastity Velasquez RN Absence of seizures: Monitor for seizure activity. If seizure occurs, document type and location of movements and any associated apnea If seizure occurs, turn head to side and suction secretions as needed Administer anticonvulsants as ordered Support airway/breathing, administer oxygen as needed Goal: Remains free of injury related to seizures activity Recent Flowsheet Documentation Taken 01/28/20232099 by Chastity Velasquez RN Remains free of injury related to seizure activity: Maintain airway, patient safety and administer oxygen as ordered Monitor patient for seizure activity, document and report duration and description of seizure to Licensed Independent Practitioner If seizure occurs, turn patient to side and suction secretions as needed Reorient patient post seizure Seizure pads on all 4 side rails Instruct patient/family to notify RN of any seizure activity Instruct patient/family to call for assistance with activity based on assessment Goal: Achieves maximal functionality and self care Recent Flowsheet Documentation Taken 01/28/20232099 by Chastity Velasquez RN Achieves maximal functionality and self care: Monitor swallowing and airway patency with patient fatigue and changes in neurological status Encourage and assist patient to increase activity and self care with guidance from physical therapy/occupational therapy Encourage visually impaired, hearing impaired and aphasic patients to use assistive/communication devices Problem: Respiratory - Adult Goal: Achieves optimal ventilation and oxygenation Recent Flowsheet Documentation Taken 01/28/20232099 by Chastity Velasquez RN Achieves optimal ventilation and oxygenation: Assess for changes in respiratory status Oxygen supplementation based on oxygen saturation or arterial blood gases Position to facilitate oxygenation and minimize respiratory effort Assess for changes in mentation and behavior Initiate smoking cessation protocol as indicated Encourage broncho-pulmonary hygiene including cough, deep breathe, incentive spirometry Assess the need for suctioning and aspirate as needed Assess and instruct to report shortness of breath or any respiratory difficulty Respiratory therapy support as indicated Problem: Cardiovascular - Adult Goal: Maintains optimal cardiac output and hemodynamic stability Recent Flowsheet Documentation Taken 01/28/20232099 by Chastity Velasquez RN Maintains optimal cardiac output and hemodynamic stability: Monitor blood pressure and heart rate Monitor urine output and notify Licensed Independent Practitioner for values outside of normal range Assess for signs of decreased cardiac output Administer fluid and/or volume expanders as ordered Administer vasoactive medications as ordered Goal: Absence of cardiac dysrhythmias or at baseline Recent Flowsheet Documentation Taken 01/28/20232099 by Chastity Velasquez RN Absence of cardiac dysrhythmias or at baseline: Monitor cardiac rate and rhythm Assess for signs of decreased cardiac output Administer antiarrhythmia medication and electrolyte replacement as ordered Problem: Skin/Tissue Integrity - Adult Goal: Skin integrity remains intact Recent Flowsheet Documentation Taken 01/28/20232099 by Chastity Velasquez RN Skin integrity remains intact: Monitor for areas of redness and/or skin breakdown Assess vascular access sites hourly Change oxygen saturation probe site as needed If on nasal continuous positive airway pressure, respiratory therapy assesses nares and determine need for appliance change or resting period as needed Goal: Incisions, wounds, or drain sites healing without S/S of infection Recent Flowsheet Documentation Taken 01/28/20232099 by Chastity Velasquez RN Incisions, wounds, or drain sites healing without sign and symptoms of infection: ADMISSION and DAILY: Assess and document risk factors for pressure ulcer development Implement wound care per orders Initiate isolation precautions as appropriate Initiate pressure ulcer prevention bundle as indicated Goal: Oral mucous membranes remain intact Recent Flowsheet Documentation Taken 01/28/20232099 by Chastity Velasquez RN Oral mucous membranes remain intact: Assess ora (more content not included)... Normal [facility] BASIC METABOLIC PANELon 04-3 Anion gap [Moles/Vol] 13 mmol/L Normal 7-20 [facility] Comment on above: Performed By: #### L [id number] #### [facility] ([facility]) [address] [place] [address] Calcium [Mass/Vol] 9.1 mg/dL Normal 8.6-10.3 [facility] Comment on above: Performed By: #### L [id number] #### [facility] ([facility]) [address] [place] [address] Chloride [Moles/Vol] 93 mmol/L Low 98-107 [facility] Comment on above: Performed By: #### L [id number] #### [facility] ([facility]) [address] [place] [address] CO2 [Moles/Vol] 31 mmol/L Normal 21-31 [facility] Comment on above: Performed By: #### L [id number] #### [facility] ([facility]) [address] [place] [address] Creatinine [Mass/Vol] 0.77 mg/dL Normal 0.60-1.20 [facility] Comment on above: Performed By: #### L [id number] #### [facility] ([facility]) [address] [place] [address] GLOMERULAR FILTRATION RATE ML/MIN/1.73 SQ M.PREDICTED 84.0 mL/min/1.73m*2 Normal >60.0 [facility] Comment on above: Result Comment: The [facility]???s estimated glomerular filtration rate (eGFR) will no longer include consideration of race in its calculation. The National Kidney Foundation???s eGFR Task Force developed new recommendations for the estimation of the glomerular filtration rate in the [place] They recommend immediate implementation of the new equation refit without the race variable in all laboratories because the calculation does not include race. In addition to not including race in the calculation and reporting, it included diversity in its development, and has acceptable performance characteristics and potential consequences that do not disproportionately affect any one group of individuals. Performed By: #### L [id number] #### [facility] ([facility]) [address] [place] [address] Glucose [Mass/Vol] 113 mg/dL High 70-100 [facility] Comment on above: Performed By: #### L [id number] #### [facility] ([facility]) [address] [place] [address] Potassium [Moles/Vol] 3.4 mmol/L Low 3.5-5.1 [facility] Comment on above: Performed By: #### L [id number] #### [facility] ([facility]) [address] [place] [address] Sodium [Moles/Vol] 134 mmol/L Low 136-145 [facility] Comment on above: Performed By: #### L [id number] #### [facility] ([facility]) [address] [place] [address] Urea nitrogen [Mass/Vol] 27 mg/dL High 7-25 [facility] Comment on above: Performed By: #### L [id number] #### [facility] ([facility]) [address] [place] [address] UREA NITROGEN/CREATININE (MASS RATIO) IN SER/PLAS 35.1 Normal [facility] Comment on above: Performed By: #### L [id number] #### [facility] ([facility]) [address] [place] [address] HEPARIN LEVELon 01-29-2023 HEPARIN UNFRACTIONATED (U/ML) IN PPP BY CHROMOGENIC METHOD <0.10 Invalid Interpretation Code 0.3-0.7 [facility] Comment on above: Order Comment: Check anti-Xa level every 6 hours while on heparin infusion, or per protocol. Result Comment: Vita roxaban and Apixaban will interfere with the anti Xa assay used to monitor UFH and LMWH. Performed By: #### L [id number] #### [facility] ([facility]) [address] [place] [address] MAGNESIUMon 01-29-2023 Magnesium [Mass/Vol] 2.3 mg/dL Normal 1.9-2.7 [facility] Comment on above: Performed By: #### L [id number] #### [facility] ([facility]) [address] [place] [address] Magnesium [Mass/Vol] 1.8 mg/dL Low 1.9-2.7 [facility] Comment on above: Performed By: #### L [id number] #### [facility] ([facility]) [address] [place] [address] PHOSPHORUSon 01-29-2023 Magnesium [Mass/Vol] 2.5 mg/dL Normal 2.5-5.0 [facility] Comment on above: Performed By: #### L [id number] #### [facility] ([facility]) [address] [place] [address] POCT GLUCOSE METER UNSOLICIT ED RESULTSon 01-29-2023 Glucose [Mass/Vol] 134 mg/dL High 70-105 [facility] Comment on above: Result Comment: [place]burn Performed By: #### L [id number] #### [facility] ([facility]) [address] [place] [address] Glucose [Mass/Vol] 134 mg/dL High 70-105 [facility] Comment on above: Result Comment: [place] Performed By: #### L [id number] #### [facility] ([facility]) [address] [place] [address] Glucose [Mass/Vol] 117 mg/dL High 70-105 [facility] Comment on above: Result Comment: boubacar giu Performed By: #### L [id number] #### [facility] ([facility]) [address] [place] [address] POTASSIUMon 01-29-2023 Potassium [Moles/Vol] 4.0 mmol/L Normal 3.5-5.1 [facility] Comment on above: Performed By: #### L [id number] #### [facility] ([facility]) [address] [place] [address] BASIC METABOLIC PANELon 01-01 Anion gap [Moles/Vol] 12 mmol/L Normal 7-20 [facility] Comment on above: Performed By: #### L [id number] ####[facility] ([facility])[address] [place] [address] Calcium [Mass/Vol] 8.9 mg/dL Normal 8.6-10.3 [facility] Comment on above: Performed By: #### L [id number] ####[facility] ([facility])[address] [place] [address] Chloride [Moles/Vol] 97 mmol/L Low 98-107 [facility] Comment on above: Performed By: #### L [id number] ####[facility] ([facility])[address] [place] [address] CO2 [Moles/Vol] 30 mmol/L Normal 21-31 [facility] Comment on above: Performed By: #### L [id number] ####[facility] ([facility])[address] [place] [address] Creatinine [Mass/Vol] 0.85 mg/dL Normal 0.60-1.20 [facility] Comment on above: Performed By: #### L [id number] ####[facility] ([facility])[address] [place] [address] GLOMERULAR FILTRATION RATE ML/MIN/1.73 SQ M.PREDICTED 74.6 mL/min/1.73m*2 Normal >60.0 [facility] Comment on above: Result Comment: The [facility]???s estimated glomerular filtration rate (eGFR) will no longer include consideration of race in its calculation. The National Kidney Foundation???s eGFR Task Force developed new recommendations for the estimation of the glomerular filtration rate in the [place] They recommend immediate implementation of the new equation refit without the race variable in all laboratories because the calculation does not include race. In addition to not including race in the calculation and reporting, it included diversity in its development, and has acceptable performance characteristics and potential consequences that do not disproportionately affect any one group of individuals. Performed By: #### L [id number] ####[facility] ([facility])[address] [facility] [address] Glucose [Mass/Vol] 93 mg/dL Normal 70-100 [facility] Comment on above: Performed By: #### L [id number] ####[facility] ([facility])[address] [facility] [place] [address] Potassium [Moles/Vol] 3.1 mmol/L Low 3.5-5.1 [facility] Comment on above: Performed By: #### L [id number] ####[facility] ([facility])[address] [place] [address] Sodium [Moles/Vol] 136 mmol/L Normal 136-145 [facility] Comment on above: Performed By: #### L [id number] ####[facility] ([facility])[address] [facility] [place] [address] Urea nitrogen [Mass/Vol] 27 mg/dL High 7-25 [facility] Comment on above: Performed By: #### L [id number] ####[facility] ([facility])[address] [place] [address] UREA NITROGEN/CREATININE (MASS RATIO) IN SER/PLAS 31.8 Normal [facility] Comment on above: Performed By: #### L [id number] ####[facility] ([facility])[address] [place] [address] CBCon 04-29-2023 Erythrocyte distribution width (RBC) [Ratio] 14.2 % Normal 11.5-15.0 [facility] Comment on above: Performed By: #### L [id number] #### [facility] [address] [place] [address] ERYTHROCYTE MEAN CORPUSCULAR HEMOGLOBIN CONCENTRATION (G/DL) BY AUTOMATED 32.4 g/dL Normal 32.0-35.0 [facility] Comment on above: Performed By: #### L [id number] #### [facility] ([facility]) [address] [address] Hematocrit (Bld) [Volume fraction] 27.5 % Low 36.0-48.0 [facility] Comment on above: Performed By: #### L [id number] #### [facility] [address] [address] Hemoglobin (Bld) [Mass/Vol] 8.9 g/dL Low 12.0-15.0 [facility] Comment on above: Performed By: #### L [id number] #### [facility] [address] [place] [address] MCH (RBC) [Entitic mass] 24.5 pg Low 27.0-33.0 [facility] Comment on above: Performed By: #### L [id number] #### [facility] [address] [place] [address] MCV (RBC) [Entitic vol] 75.8 fL Low 82.0-98.0 [facility] Comment on above: Performed By: #### L [id number] #### [facility] ([facility] [address] [place] [address] PLATELETS (10*3/UL) IN BLOOD AUTOMATED COUNT 308 10*3/uL Normal 150-400 [facility] Comment on above: Performed By: #### L [id number] #### [facility] ([facility]) [address] [place] [address] RBC (Bld) [#/Vol] 3.63 10*6/uL Low 3.80-5.00 [facility] Comment on above: Performed By: #### L [id number] #### [facility] ([facility]) [address] [place] [address] WBC (Bld) [#/Vol] 12.75 10*3/uL High 4.00-10.60 [facility] Comment on above: Performed By: #### L [id number] #### [facility] ([facility]) [address] [place] [address] CONSULTon 01-28-2023 CONSULT Adult Nutrition Assessment: Name: Perla Ibarra Date: 1955 Date of Visit: 01/28/23 Admission Dx: Acute coronary syndrome ([facility]) [I24.9] Reason for assessment: MD referral for HF diet education Information obtained from: patient, family, and medical record Past Medical History: Diagnosis Date CHF (congestive heart failure) (CMS/HCC) COPD (chronic obstructive pulmonary disease) (CMS/HCC) NSTEMI (non-ST elevated myocardial infarction) (CMS/HCC) PNA (pneumonia) Current Medications: cefTRIAXone, 1 g, intravenous, q24h doxycycline mnohydrate, 100 mg, oral, BID famotidine, 20 mg, intravenous, BID Or famotidine, 20 mg, oral, BID furosemide, 40 mg, intravenous, q12h heparin (porcine), 5,000 Units, subcutaneous, BID insulin aspart, 0-20 Units, subcutaneous, q6h metoprolol tartrate, 25 mg, oral, BID nicotine, 1 patch, transdermal, Daily Oxygen Therapy, , inhalation, Continuous prednisoLONE, 40 mg, oral, Daily sulfur hexafluoride microsphr, 2 mL, intravenous, Once in imaging lactated Ringer's, 75 mL/hr, Last Rate: Stopped (01/26/23 1000) Labs: 0 Lab Value Date/Time POCGLU 193 (H) 01/28/2023 1119 BUN 27 (H) 01/28/2023 0418 CREATININE 0.85 01/28/2023 0418 NA 136 01/28/2023 0418 K 3.1 (L) 01/28/20238 PHOS 3.0 01/28/20238 MG 2.1 01/28/20238 HGB 8.9 (L) 01/28/20238 WBC 12.75 (H) 01/28/20238 CHOL 113 (L) 01/25/20232244 HDL 46 01/25/2023 2245 Other Pertinent Labs: POC glucose 107-141 I/O: Intake/Output Summary (Last 24 hours) at 01/28/2023 1327 Last data filed at 01/28/2023 1300 Gross per 24 hour Intake 500 ml Output 4460 ml Net -3960 ml Allergies: NKFA Nutrition Problems: Abdominal Assessment: Last BM 01/28, loose/dark Appetite: fair Nutrition Data/Clinical Indicators of Nutrition Status: Height: 167.6 cm (5' 5.98 ) Weight: 71.4 kg (157 lb 6.5 oz) BMI (Calculated): 25.42 Wt Readings from Last 10 Encounters: 01/28/23 71.4 kg (157 lb 6.5 oz) IBW: 59kg Nutrition Assessment: Nutrition history: The patient was sitting up in bed and eating at time of visit. She reports her appetite is fair. RD obtained a diet hx for her. She follows a regular diet and does the grocery shopping. She states she gets fast food and take out when she is alone. She eats two meals daily. Typically a [employer] kids meal and for dinner she will eat meat, potato and canned vegetable. Sometimes a sandwich and salad. She sometimes will eat boxed meals like hamburger helper or snacks like chips. She does add salt to food. Dietary Orders (From admission, onward) Start Ordered 01/28/231322 Special Kitchen Request Once Comments: Roast beef sandwich w/ whipped potatoes, steam broccoli, cold tea x2 01/28/23 1323 01/28/23 0740 Special Kitchen Request Once Comments: Banana, scrambled egg with british virgin islander cheese, cinnamon raisin bagel w/ cream cheese OR butter if allowed, V8 please :) 01/28/23 0742 01/28/23 0450 Regular Diet Heart Healthy/HTN, CABG,Stroke, (2gNA, low fat, low cholesterol) Diet effective now Question Answer Comment Room Service? Yes Fat restriction: Heart Healthy/HTN, CABG,Stroke, (2gNA, low fat, low cholesterol) 01/28/23 0450 Percent Meals Eaten (%): 100 (01/28/23 1100 : Enedina Erick) Nutrition Risk: Low Nutrition Education: Diet literature: Heart Healthy Grocery List handout. RD reviewed foods in her diet that are high in sodium and suggested that she aim for 2000mg sodium daily and read food labels for sodium content. Discussed eating less fast food and preparing more meals at home with low sodium ingredients. Discussed not adding salt to food. Expected compliance/patient understanding: Good Teach back method: The patient verbalized that she will eat less take-out and fast food and try to cook more meals at home. Time spent: 20 minutes. Treatment Plan: Diet: low sodium Daily weight Goals: Nutrition Goals: intake > 75% meals and compliance w/ MNT Normal [facility] CT ABDOMEN PELVIS W AND WO I V CONTRASTon 01-28-2023 CT ABDOMEN PELVIS W AND WO IV CONTRAST CT ABDOMEN PELVIS W AND WO IV CONTRAST 01/28/2023 12:40 PM CLINICAL INDICATIONS: Renal mass PROTOCOL: CONTRAST: 100 mL Omnipaque 350 TECHNIQUE: Multidetector CT angiography axial slices of the abdomen and pelvis were obtained with IV contrast. Multiplanar reformats, MIP, and volume rendered 3-D images were generated on a separate workstation and reviewed to further define anatomy and possible pathology. All CT scans at this facility use dose modulation, iterative reconstruction, and/or weight based dosing when appropriate to reduce radiation dose to as low as reasonably achievable. COMPARISON: CTA chest 01/26/2023 FINDINGS: Lung bases demonstrate dependent atelectatic changes and multifocal nodular infiltrates with no significant airspace consolidation. No pleural fluid collection. Visible heart is grossly within normal limits. Small hiatal hernia. Liver demonstrates no discrete mass or biliary ductal dilatation. Normal appearance of the gallbladder. The spleen, pancreas and adrenal glands are grossly within normal limits. Left kidney enhances normally with no hydronephrosis. There is a heterogeneously enhancing right renal mass measures approximately 12.8 x 8.2 x 8.3 cm with extension into the right renal vein. No hydronephrosis on the right. Diverticular disease most notably involving descending and sigmoid colon. No bowel obstruction or acute inflammatory change. No significant free air or fluid. No mesenteric lymphadenopathy. Mesenteric vessels are patent. Bladder is decompressed with a Ochoa catheter. Uterus and adnexal structures are grossly within normal limits. Normal caliber aorta with moderate atherosclerotic calcification. Right-sided IVC. Significant dilation of the right ovarian vein. No definite retroperitoneal lymphadenopathy. Infiltration of the soft tissues in the right inguinal region consistent with recent cardiac catheterization. Multilevel degenerative changes involving the thoracolumbar spine with no aggressive osseous lesions. Bilateral hip osteoarthritis. IMPRESSION: *Enhancing right renal mass consistent with renal cell carcinoma. There is tumor thrombus extending into the right renal vein and IVC. *No definitive evidence of metastatic disease. Electronically signed: Gagan Berumen. Normal [facility] HEPARIN LEVELon 01-28-2023 HEPARIN UNFRACTIONATED (U/ML) IN PPP BY CHROMOGENIC METHOD <0.10 Invalid Interpretation Code 0.3-0.7 [facility] Comment on above: Order Comment: Check anti-Xa level every 6 hours while on heparin infusion, or per protocol. Result Comment: Vita roxaban and Apixaban will interfere with the anti Xa assay used to monitor UFH and LMWH. Performed By: #### L [id number] #### [facility] ([facility]) [address] [place] [address] MAGNESIUMon 01-28-2023 Magnesium [Mass/Vol] 2.1 mg/dL Normal 1.9-2.7 [facility] Comment on above: Performed By: #### L [id number] ####[facility] ([facility])[address] [place] [address] PHOSPHORUSon 01-28-2023 Magnesium [Mass/Vol] 3.0 mg/dL Normal 2.5-5.0 [facility] Comment on above: Performed By: #### L [id number] #### [facility] ([facility]) [address] [place] [address] POCT GLUCOSE METER UNSOLICIT ED RESULTSon 01-28-2023 Glucose [Mass/Vol] 142 mg/dL High 70-105 [facility] Comment on above: Result Comment: carrillo washburn Performed By: #### L [id number] ####[facility] ([facility])[address] [place] [address] Glucose [Mass/Vol] 193 mg/dL High 70-105 [facility] Comment on above: Result Comment: [email or web address] Performed By: #### L [id number] #### [facility] ([facility]) [address] [place] [address] Glucose [Mass/Vol] 107 mg/dL High 70-105 [facility] Comment on above: Result Comment: [email or web address] [email or web address] Performed By: #### L [id number] #### [facility] ([facility]) [address] [place] [address] Glucose [Mass/Vol] 131 mg/dL High 70-105 [facility] Comment on above: Result Comment: [email or web address] Performed By: #### L [id number] #### [facility] ([facility]) [address] [place] [address] 30on 01-27-2023 30 The patient is Moder ately Stable - Low risk of patient condition declining or worsening The patient's goals for the shift include comfort The clinical goals for the shift include stable vs Problem: Fall Risk Goal: LTG-Increase mobility and strength Outcome: Progressing Goal: LTG-No falls Outcome: Progressing Goal: STG-Uses assitive devices properly Outcome: Progressing Goal: STG-Ask for assistance before standing Outcome: Progressing Goal: STG-Allows staff to assist prior to standing and ambulating Outcome: Progressing Goal: STG-Use call light prior to getting out of bed Outcome: Progressing Problem: Neurosensory - Adult Goal: Achieves stable or improved neurological status Outcome: Progressing Goal: Absence of seizures Outcome: Progressing Goal: Remains free of injury related to seizures activity Outcome: Progressing Goal: Achieves maximal functionality and self care Outcome: Progressing Problem: Respiratory - Adult Goal: Achieves optimal ventilation and oxygenation Outcome: Progressing Problem: Cardiovascular - Adult Goal: Maintains optimal cardiac output and hemodynamic stability Outcome: Progressing Goal: Absence of cardiac dysrhythmias or at baseline Outcome: Progressing Problem: Skin/Tissue Integrity - Adult Goal: Skin integrity remains intact Outcome: Progressing Goal: Incisions, wounds, or drain sites healing without S/S of infection Outcome: Progressing Goal: Oral mucous membranes remain intact Outcome: Progressing Problem: Musculoskeletal - Adult Goal: Return mobility to safest level of function Outcome: Progressing Goal: Maintain proper alignment of affected body part Outcome: Progressing Goal: Return ADL status to a safe level of function Outcome: Progressing Problem: Gastrointestinal - Adult Goal: Minimal or absence of nausea and vomiting Outcome: Progressing Goal: Maintains or returns to baseline bowel function Outcome: Progressing Goal: Maintains adequate nutritional intake Outcome: Progressing Goal: Establish and maintain optimal ostomy function Outcome: Progressing Problem: Genitourinary - Adult Goal: Absence of urinary retention Outcome: Progressing Goal: Urinary catheter remains patent Outcome: Progressing Problem: Infection - Adult Goal: Absence of infection at discharge Outcome: Progressing Goal: Absence of infection during hospitalization Outcome: Progressing Goal: Absence of fever/infection during anticipated neutropenic period Outcome: Progressing Problem: Metabolic/Fluid and Electrolytes - Adult Goal: Electrolytes maintained within normal limits Outcome: Progressing Goal: Hemodynamic stability and optimal renal function maintained Outcome: Progressing Goal: Glucose maintained within prescribed range Outcome: Progressing Problem: Hematologic - Adult Goal: Maintains hematologic stability Outcome: Progressing Normal [facility] 30 The patient is Moder ately Stable - Low risk of patient condition declining or worsening The patient's goals for the shift include comfort The clinical goals for the shift include stable vs Problem: Fall Risk Goal: LTG-Increase mobility and strength Outcome: Progressing Goal: LTG-No falls Outcome: Progressing Goal: STG-Uses assitive devices properly Outcome: Progressing Goal: STG-Ask for assistance before standing Outcome: Progressing Goal: STG-Allows staff to assist prior to standing and ambulating Outcome: Progressing Goal: STG-Use call light prior to getting out of bed Outcome: Progressing Problem: Neurosensory - Adult Goal: Achieves stable or improved neurological status Outcome: Progressing Goal: Absence of seizures Outcome: Progressing Goal: Remains free of injury related to seizures activity Outcome: Progressing Goal: Achieves maximal functionality and self care Outcome: Progressing Problem: Respiratory - Adult Goal: Achieves optimal ventilation and oxygenation Outcome: Progressing Problem: Cardiovascular - Adult Goal: Maintains optimal cardiac output and hemodynamic stability Outcome: Progressing Goal: Absence of cardiac dysrhythmias or at baseline Outcome: Progressing Problem: Skin/Tissue Integrity - Adult Goal: Skin integrity remains intact Outcome: Progressing Goal: Incisions, wounds, or drain sites healing without S/S of infection Outcome: Progressing Goal: Oral mucous membranes remain intact Outcome: Progressing Problem: Musculoskeletal - Adult Goal: Return mobility to safest level of function Outcome: Progressing Goal: Maintain proper alignment of affected body part Outcome: Progressing Goal: Return ADL status to a safe level of function Outcome: Progressing Problem: Gastrointestinal - Adult Goal: Minimal or absence of nausea and vomiting Outcome: Progressing Goal: Maintains or returns to baseline bowel function Outcome: Progressing Goal: Maintains adequate nutritional intake Outcome: Progressing Goal: Establish and maintain optimal ostomy function Outcome: Progressing Problem: Genitourinary - Adult Goal: Absence of urinary retention Outcome: Progressing Goal: Urinary catheter remains patent Outcome: Progressing Problem: Infection - Adult Goal: Absence of infection at discharge Outcome: Progressing Goal: Absence of infection during hospitalization Outcome: Progressing Goal: Absence of fever/infection during anticipated neutropenic period Outcome: Progressing Problem: Metabolic/Fluid and Electrolytes - Adult Goal: Electrolytes maintained within normal limits Outcome: Progressing Goal: Hemodynamic stability and optimal renal function maintained Outcome: Progressing Goal: Glucose maintained within prescribed range Outcome: Progressing Problem: Hematologic - Adult Goal: Maintains hematologic stability Outcome: Progressing Normal [facility] BASIC METABOLIC PANELon - Anion gap [Moles/Vol] 12 mmol/L Normal 7-20 [facility] Comment on above: Performed By: #### L [id number] #### [facility]) [address] [place] [address] Calcium [Mass/Vol] 8.6 mg/dL Normal 8.6-10.3 [facility] Comment on above: Performed By: #### L [id number] #### [facility] ([facility]) [address] [place] [address] Chloride [Moles/Vol] 96 mmol/L Low 98-107 [facility] Comment on above: Performed By: #### L [id number] #### [facility] ([facility]) [address] [place] [address] CO2 [Moles/Vol] 26 mmol/L Normal 21-31 [facility] Comment on above: Performed By: #### L [id number] #### [facility] ([facility]) [address] [place] [address] Creatinine [Mass/Vol] 1.03 mg/dL Normal 0.60-1.20 [facility] Comment on above: Performed By: #### L [id number] #### [facility] ([facility]) [address] [place] [address] GLOMERULAR FILTRATION RATE ML/MIN/1.73 SQ M.PREDICTED 59.2 mL/min/1.73m*2 Low >60.0 [facility] Comment on above: Result Comment: The [facility]???s estimated glomerular filtration rate (eGFR) will no longer include consideration of race in its calculation. The National [employer]???s eGFR Task Force developed new recommendations for the estimation of the glomerular filtration rate in the [place] They recommend immediate implementation of the new equation refit without the race variable in all laboratories because the calculation does not include race. In addition to not including race in the calculation and reporting, it included diversity in its development, and has acceptable performance characteristics and potential consequences that do not disproportionately affect any one group of individuals. Performed By: #### L [id number] #### [facility] ([facility]) [address] [place] [address] Glucose [Mass/Vol] 128 mg/dL High 70-100 [facility] Comment on above: Performed By: #### L [id number] #### [facility] ([facility]) [address] [place] [address] Potassium [Moles/Vol] 4.1 mmol/L Normal 3.5-5.1 [facility] Comment on above: Performed By: #### L [id number] #### [facility] ([facility]) [address] [place] [address] Sodium [Moles/Vol] 130 mmol/L Low 136-145 [facility] Comment on above: Performed By: #### L [id number] #### [facility] ([facility]) [address] [address] Urea nitrogen [Mass/Vol] 29 mg/dL High 7-25 [facility] Comment on above: Performed By: #### L [id number] #### [facility] ([facility]) [address] [place] [address] UREA NITROGEN/CREATININE (MASS RATIO) IN SER/PLAS 28.2 Normal [facility] Comment on above: Performed By: #### L [id number] #### [facility] [address] [place] [address] CBC WITH AUTO DIFFERENTIALon 01-27-2023 Basophils (Bld) [#/Vol] 0.01 10*3/uL Normal 0.00-0.20 [facility] Comment on above: Performed By: #### L [id number] ####[facility] ([facility])[address] [place] [address] Basophils/100 WBC (Bld) 0.1 % Normal 0.0-1.0 [facility] Comment on above: Performed By: #### L [id number] ####[facility] ([facility])[address] [place] [address] Eosinophils (Bld) [#/Vol] 0.00 10*3/uL Normal 0.00-0.50 [facility] Comment on above: Performed By: #### L [id number] ####[facility] ([facility])[address] [place] [address] Eosinophils/100 WBC (Bld) 0.0 % Normal 0.0-6.0 [facility] Comment on above: Performed By: #### L [id number] ####[facility] [place] [address] Erythrocyte distribution width (RBC) [Ratio] 14.1 % Normal 11.5-15.0 [facility] Comment on above: Performed By: #### L [id number] ####[facility] ([facility] [place] [address] ERYTHROCYTE MEAN CORPUSCULAR HEMOGLOBIN CONCENTRATION (G/DL) BY AUTOMATED 32.6 g/dL Normal 32.0-35.0 [facility] Comment on above: Performed By: #### L [id number] ####[facility] ([facility])[address] [place] [address] Hematocrit (Bld) [Volume fraction] 25.8 % Low 36.0-48.0 [facility] Comment on above: Performed By: #### L [id number] ####[facility])[address] [place] [address] Hemoglobin (Bld) [Mass/Vol] 8.4 g/dL Low 12.0-15.0 [facility] Comment on above: Performed By: #### L [id number] ####[facility] ([facility])[address] [place] [address] Immature granulocytes (Bld) [#/Vol] 0.07 10*3/uL Normal 0.00-0.20 [facility] Comment on above: Performed By: #### L [id number] ####[facility] ([facility])[address] [place] [address] Immature granulocytes/100 WBC (Bld) 0.8 % Normal 0.0-1.0 [facility] Comment on above: Performed By: #### L [id number] ####[facility] ([facility])[address] [place] [address] Lymphocytes (Bld) [#/Vol] 0.46 10*3/uL Low 1.20-4.00 [facility] Comment on above: Performed By: #### L [id number] ####[facility] ([facility])[address] [place] [address] Lymphocytes/100 WBC (Bld) 5.2 % Low 20.0-45.0 [facility] Comment on above: Performed By: #### L [id number] ####[facility] ([facility])[address] [place] [address] MCH (RBC) [Entitic mass] 24.5 pg Low 27.0-33.0 [facility] Comment on above: Performed By: #### L [id number] ####[facility] ([facility])[address] [place] [address] MCV (RBC) [Entitic vol] 75.2 fL Low 82.0-98.0 [facility] Comment on above: Performed By: #### L [id number] ####[facility] ([facility] [place] [address] Monocytes (Bld) [#/Vol] 0.43 10*3/uL Normal 0.10-1.00 [facility] Comment on above: Performed By: #### L [id number] ####[facility] ([facility])[address] [place] [address] Monocytes/100 WBC (Bld) 4.8 % Low 5.0-12.0 [facility] Comment on above: Performed By: #### L [id number] ####[facility] ([facility])[address] [place] [address] Neutrophils (Bld) [#/Vol] 7.96 10*3/uL High 1.60-7.60 [facility] Comment on above: Performed By: #### L [id number] ####[facility] ([facility])[address] [place] [address] Neutrophils/100 WBC (Bld) 89.1 % High 40.0-72.0 [facility] Comment on above: Performed By: #### L [id number] ####[facility] ([facility])[address] [place] [address] NRBC (PER 100 WBCS) BY AUTOMATED COUNT 0.0 % Normal 0.0-0.0 [facility] Comment on above: Performed By: #### L [id number] ####[facility] ([facility])[address] [place] [address] PLATELETS (10*3/UL) IN BLOOD AUTOMATED COUNT 239 10*3/uL Normal 150-400 [facility] Comment on above: Performed By: #### L [id number] ####[facility] ([facility])[address] [place] [address] RBC (Bld) [#/Vol] 3.43 10*6/uL Low 3.80-5.00 [facility] Comment on above: Performed By: #### L [id number] ####[facility] [place] [address] WBC (Bld) [#/Vol] 8.93 10*3/uL Normal 4.00-10.60 [facility] Comment on above: Performed By: #### L [id number] ####[facility] ([facility])[address] [place] [address] MAGNESIUMon 01-27-2023 Magnesium [Mass/Vol] 2.7 mg/dL Normal 1.9-2.7 [facility] Comment on above: Performed By: #### L [id number] #### [facility] ([facility]) [address] [place] [address] PHOSPHORUSon 01-27-2023 Magnesium [Mass/Vol] 4.5 mg/dL Normal 2.5-5.0 [facility] Comment on above: Performed By: #### L [id number] ####[facility] ([facility])[address] [place] [address] POCT GLUCOSE METER UNSOLICIT ED RESULTSon 01-27-2023 Glucose [Mass/Vol] 141 mg/dL High 70-105 [facility] Comment on above: Result Comment: miha as Performed By: #### L [id number] ####[facility] ([facility])[address] [place] [address] Glucose [Mass/Vol] 139 mg/dL High 70-105 [facility] Comment on above: Result Comment: miha as Performed By: #### L [id number] ####[facility] ([facility])[address] [place] [address] Glucose [Mass/Vol] 142 mg/dL High 70-105 [facility] Comment on above: Result Comment: [email or web address] Performed By: #### L [id number] #### [facility] ([facility]) [address] [place] [address] Glucose [Mass/Vol] 148 mg/dL High 70-105 [facility] Comment on above: Result Comment: nfre [email or web address] Performed By: #### L [id number] ####[facility] ([facility])[address] [place] [address] 30on 01-26-2023 30 The patient is Moder ately Unstable - Medium risk of patient condition declining or worsening The patient's goals for the shift include comfort The clinical goals for the shift include stable vs Problem: Fall Risk Goal: LTG-Increase mobility and strength 01/26/2023 1534 by AVANI ALBERT Outcome: Progressing 01/26/2023 1534 by AVANI ALBERT Outcome: Not Progressing 01/26/2023 1533 by AVANI ALBERT Outcome: Not Progressing Goal: LTG-No falls 01/26/2023 1534 by AVANI ALBERT Outcome: Progressing 01/26/2023 1534 by AVANI ALBERT Outcome: Not Progressing 01/26/2023 1533 by AVANI ALBERT Outcome: Not Progressing Goal: STG-Uses assitive devices properly 01/26/2023 1534 by AVANI ALBERT Outcome: Not Progressing 01/26/2023 1534 by AVANI ALBERT Outcome: Not Progressing 01/26/2023 1533 by AVANI ALBERT Outcome: Not Progressing Goal: STG-Ask for assistance before standing 01/26/2023 1534 by AVANI ALBERT Outcome: Not Progressing 01/26/2023 1534 by AVANI ALBERT Outcome: Not Progressing 01/26/2023 1533 by AVANI ALBERT Outcome: Not Progressing Goal: STG-Allows staff to assist prior to standing and ambulating 01/26/2023 1534 by AVANI ALBERT Outcome: Not Progressing 01/26/2023 1534 by AVANI ALBERT Outcome: Not Progressing 01/26/2023 1533 by AVANI ALBERT Outcome: Not Progressing Goal: STG-Use call light prior to getting out of bed 01/26/2023 1534 by AVANI ALBERT Outcome: Not Progressing 01/26/2023 1534 by AVANI ALBERT Outcome: Not Progressing 01/26/2023 1533 by AVANI ALBERT Outcome: Not Progressing Problem: Neurosensory - Adult Goal: Achieves stable or improved neurological status 01/26/2023 1534 by AVANI ALBERT Outcome: Not Progressing 01/26/2023 1534 by AVANI ALBERT Outcome: Not Progressing 01/26/2023 1533 by AVANI ALBERT Outcome: Not Progressing Goal: Absence of seizures 01/26/2023 1534 by AVANI ALBERT Outcome: Progressing 01/26/2023 1534 by AVANI ALBERT Outcome: Not Progressing 01/26/2023 1533 by AVANI ALBERT Outcome: Not Progressing Goal: Remains free of injury related to seizures activity 01/26/2023 1534 by AVANI ALBERT Outcome: Progressing 01/26/2023 1534 by AVANI ALBERT Outcome: Not Progressing 01/26/2023 1533 by AVANI ALBERT Outcome: Not Progressing Goal: Achieves maximal functionality and self care 01/26/2023 1534 by AVANI ALBERT Outcome: Not Progressing 01/26/2023 1534 by AVANI ALBERT Outcome: Not Progressing 01/26/2023 1533 by AVANI ALBERT Outcome: Not Progressing Problem: Respiratory - Adult Goal: Achieves optimal ventilation and oxygenation 01/26/2023 1534 by AVANI ALBERT Outcome: Not Progressing 01/26/2023 1534 by AVANI ALBERT Outcome: Not Progressing 01/26/2023 1533 by AVANI ALBERT Outcome: Not Progressing Flowsheets (Taken 01/26/2023 0800) Achieves optimal ventilation and oxygenation: Assess for changes in respiratory status Problem: Cardiovascular - Adult Goal: Maintains optimal cardiac output and hemodynamic stability 01/26/2023 1534 by AVANI ALBERT Outcome: Not Progressing 01/26/2023 1534 by AVANI ALBERT Outcome: Not Progressing 01/26/2023 1533 by AVANI ALBERT Outcome: Not Progressing Flowsheets (Taken 01/26/2023 0800) Maintains optimal cardiac output and hemodynamic stability: Monitor blood pressure and heart rate Monitor urine output and notify Licensed Independent Practitioner for values outside of normal range Assess for signs of decreased cardiac output Administer fluid and/or volume expanders as ordered Administer vasoactive medications as ordered Goal: Absence of cardiac dysrhythmias or at baseline 01/26/2023 153 by AVANI ALBERT Outcome: Not Progressing 01/26/2023 1534 by AVANI ALBERT Outcome: Not Progressing 01/26/2023 153 by AVANI ALBERT Outcome: Not Progressing Flowsheets (Taken 01/26/2023 0800) Absence of cardiac dysrhythmias or at baseline: Monitor cardiac rate and rhythm Assess for signs of decreased cardiac output Administer antiarrhythmia medication and electrolyte replacement as ordered Problem: Skin/Tissue Integrity - Adult Goal: Skin integrity remains intact 01/26/2023 153 by AVANI ALBERT Outcome: Progressing 01/26/2023 153 by AVANI ALBERT Outcome: Not Progressing 01/26/2023 153 by AVANI ALBERT Outcome: Not Progressing Flowsheets (Taken 01/26/2023 0800) Skin integrity remains intact: Monitor for areas of redness and/or skin breakdown Assess vascular access sites hourly Change oxygen saturation probe site as needed Goal: Incisions, wounds, or drain sites healing without S/S of infection 01/26/2023 153 by AVANI ALBERT Outcome: Progressing 01/26/20231533 by AVANI ALBERT Outcome: Not Progressing 01/26/20231532 by AVANI ALBERT Outcome: Not Progressing Flowsheets (Taken 01/26/2023 0800) Incisions, wounds, or drain sites healing without sign and (more content not included)... Normal [facility] 30 The patient is Moder ately Unstable - Medium risk of patient condition declining or worsening The patient's goals for the shift include comfort The clinical goals for the shift include stable vs Over the shift, the patient did not make progress toward the following goals. Barriers to progression include respiratory support. Recommendations to address these barriers include comfort. Problem: Fall Risk Goal: LTG-Increase mobility and strength Outcome: Not Progressing Goal: LTG-No falls Outcome: Not Progressing Goal: STG-Uses assitive devices properly Outcome: Not Progressing Goal: STG-Ask for assistance before standing Outcome: Not Progressing Goal: STG-Allows staff to assist prior to standing and ambulating Outcome: Not Progressing Goal: STG-Use call light prior to getting out of bed Outcome: Not Progressing Problem: Neurosensory - Adult Goal: Achieves stable or improved neurological status Outcome: Not Progressing Goal: Absence of seizures Outcome: Not Progressing Goal: Remains free of injury related to seizures activity Outcome: Not Progressing Goal: Achieves maximal functionality and self care Outcome: Not Progressing Problem: Respiratory - Adult Goal: Achieves optimal ventilation and oxygenation Outcome: Not Progressing Problem: Cardiovascular - Adult Goal: Maintains optimal cardiac output and hemodynamic stability Outcome: Not Progressing Goal: Absence of cardiac dysrhythmias or at baseline Outcome: Not Progressing Problem: Skin/Tissue Integrity - Adult Goal: Skin integrity remains intact Outcome: Not Progressing Goal: Incisions, wounds, or drain sites healing without S/S of infection Outcome: Not Progressing Goal: Oral mucous membranes remain intact Outcome: Not Progressing Problem: Musculoskeletal - Adult Goal: Return mobility to safest level of function Outcome: Not Progressing Goal: Maintain proper alignment of affected body part Outcome: Not Progressing Goal: Return ADL status to a safe level of function Outcome: Not Progressing Problem: Gastrointestinal - Adult Goal: Minimal or absence of nausea and vomiting Outcome: Not Progressing Goal: Maintains or returns to baseline bowel function Outcome: Not Progressing Goal: Maintains adequate nutritional intake Outcome: Not Progressing Goal: Establish and maintain optimal ostomy function Outcome: Not Progressing Problem: Genitourinary - Adult Goal: Absence of urinary retention Outcome: Not Progressing Goal: Urinary catheter remains patent Outcome: Not Progressing Problem: Infection - Adult Goal: Absence of infection at discharge Outcome: Not Progressing Goal: Absence of infection during hospitalization Outcome: Not Progressing Goal: Absence of fever/infection during anticipated neutropenic period Outcome: Not Progressing Problem: Metabolic/Fluid and Electrolytes - Adult Goal: Electrolytes maintained within normal limits Outcome: Not Progressing Goal: Hemodynamic stability and optimal renal function maintained Outcome: Not Progressing Goal: Glucose maintained within prescribed range Outcome: Not Progressing Problem: Hematologic - Adult Goal: Maintains hematologic stability Outcome: Not Progressing Normal [facility] APTTon 01-26-2023 ACTIVATED PARTIAL THROMBOPLASTIN TIME IN PPP BY COAGULATION ASSAY 29.4 Seconds Normal 25.0-35.0 [facility] Comment on above: Order Comment: Basel ine aPTT before initiating heparin infusion. Result Comment: Clin ical significance of the APTT is questionable in the presence of heparin. Performed By: #### L [id number] #### [facility] ([facility] [address] [place] [address] B-TYPE NATRIURETIC PEPTIDEon 01-26-2023 Natriuretic peptide B (Bld) [Mass/Vol] 1491 pg/mL High 0-100 [facility] Comment on above: Performed By: #### L [id number] #### [facility] ([facility]) [address] [place] [address] BASIC METABOLIC PANELon 01-01 Anion gap [Moles/Vol] 13 mmol/L Normal 7-20 [facility] Comment on above: Performed By: #### L [id number] ####[facility] ([facility])[address] [place] [address] Calcium [Mass/Vol] 8.3 mg/dL Low 8.6-10.3 [facility] Comment on above: Performed By: #### L [id number] ####[facility] ([facility])[address] [place] [address] Chloride [Moles/Vol] 91 mmol/L Low 98-107 [facility] Comment on above: Performed By: #### L [id number] ####[facility] ([facility])[address] [place] [address] CO2 [Moles/Vol] 24 mmol/L Normal 21-31 [facility] Comment on above: Performed By: #### L [id number] ####[facility] ([facility])[address] [place] [address] Creatinine [Mass/Vol] 0.99 mg/dL Normal 0.60-1.20 [facility] Comment on above: Performed By: #### L [id number] ####[facility] ([facility])[address] [place] [address] GLOMERULAR FILTRATION RATE ML/MIN/1.73 SQ M.PREDICTED 62.1 mL/min/1.73m*2 Normal >60.0 [facility] Comment on above: Result Comment: The [facility]???s estimated glomerular filtration rate (eGFR) will no longer include consideration of race in its calculation. The National Kidney Foundation???s eGFR Task Force developed new recommendations for the estimation of the glomerular filtration rate in the [place] They recommend immediate implementation of the new equation refit without the race variable in all laboratories because the calculation does not include race. In addition to not including race in the calculation and reporting, it included diversity in its development, and has acceptable performance characteristics and potential consequences that do not disproportionately affect any one group of individuals. Performed By: #### L [id number] ####[facility] ([facility])[address] [place] [address] Glucose [Mass/Vol] 111 mg/dL High 70-100 [facility] Comment on above: Performed By: #### L [id number] ####[facility] ([facility])[address] [place] [address] Potassium [Moles/Vol] 3.7 mmol/L Normal 3.5-5.1 [facility] Comment on above: Performed By: #### L [id number] ####[facility] ([facility])[address] [place] [address] Sodium [Moles/Vol] 124 mmol/L Invalid Interpretation Code 136-145 [facility] Comment on above: Result Comment: M-MS EVIOUS CRITICAL RESULT Performed By: #### L [id number] ####[facility] ([facility])[address] [place] [address] Urea nitrogen [Mass/Vol] 25 mg/dL Normal 7-25 [facility] Comment on above: Performed By: #### L [id number] ####[facility] ([facility])[address] [place] [address] UREA NITROGEN/CREATININE (MASS RATIO) IN SER/PLAS 25.3 Normal [facility] Comment on above: Performed By: #### L [id number] ####[facility] ([facility])[address] [place] [address] BLOOD CULTUREon 01-26-2023 Bacteria identified Cx Nom (Bld) No growth at 5 days Normal [facility] Comment on above: Performed By: #### L [id number] #### [facility] ([facility]) [address] [place] [address] Order Comment: From a different site than #1. CBC WITH AUTO DIFFERENTIALon 01-26-2023 Basophils (Bld) [#/Vol] 0.02 10*3/uL Normal 0.00-0.20 [facility] Comment on above: Performed By: #### L [id number] #### [facility] ([facility]) [address] [place] [address] Basophils/100 WBC (Bld) 0.2 % Normal 0.0-1.0 [facility] Comment on above: Performed By: #### L [id number] #### [facility] ([facility]) [address] [place] [address] Eosinophils (Bld) [#/Vol] 0.00 10*3/uL Normal 0.00-0.50 [facility] Comment on above: Performed By: #### L [id number] #### [facility] ([facility]) [address] [place] [address] Eosinophils/100 WBC (Bld) 0.0 % Normal 0.0-6.0 [facility] Comment on above: Performed By: #### L [id number] #### [facility] ([facility]) [address] [place] [address] Erythrocyte distribution width (RBC) [Ratio] 13.6 % Normal 11.5-15.0 [facility] Comment on above: Performed By: #### L [id number] #### [facility] ([facility]) [address] [place] [address] ERYTHROCYTE MEAN CORPUSCULAR HEMOGLOBIN CONCENTRATION (G/DL) BY AUTOMATED 32.3 g/dL Normal 32.0-35.0 [facility] Comment on above: Performed By: #### L [id number] #### [facility] ([facility]) [address] [place] [address] Hematocrit (Bld) [Volume fraction] 26.0 % Low 36.0-48.0 [facility] Comment on above: Performed By: #### L [id number] #### [facility] ([facility]) [address] [place] [address] Hemoglobin (Bld) [Mass/Vol] 8.4 g/dL Low 12.0-15.0 [facility] Comment on above: Performed By: #### L [id number] #### [facility] ([facility]) [address] [place] [address] Immature granulocytes (Bld) [#/Vol] 0.06 10*3/uL Normal 0.00-0.20 [facility] Comment on above: Performed By: #### L [id number] #### [facility] ([facility]) [address] [place] [address] Immature granulocytes/100 WBC (Bld) 0.5 % Normal 0.0-1.0 [facility] Comment on above: Performed By: #### L [id number] #### [facility] ([facility]) [address] [place] [address] Lymphocytes (Bld) [#/Vol] 0.60 10*3/uL Low 1.20-4.00 [facility] Comment on above: Performed By: #### L [id number] #### [facility] ([facility]) [address] [place] [address] Lymphocytes/100 WBC (Bld) 4.6 % Low 20.0-45.0 [facility] Comment on above: Performed By: #### L [id number] #### [facility] ([facility]) [address] [place] [address] MCH (RBC) [Entitic mass] 24.5 pg Low 27.0-33.0 [facility] Comment on above: Performed By: #### L [id number] #### [facility] ([facility]) [address] [place] [address] MCV (RBC) [Entitic vol] 75.8 fL Low 82.0-98.0 [facility] Comment on above: Performed By: #### L [id number] #### [facility] ([facility]) [address] [place] [address] Monocytes (Bld) [#/Vol] 0.63 10*3/uL Normal 0.10-1.00 [facility] Comment on above: Performed By: #### L [id number] #### [facility] ([facility]) [address] [place] [address] Monocytes/100 WBC (Bld) 4.8 % Low 5.0-12.0 [facility] Comment on above: Performed By: #### L [id number] #### [facility] ([facility]) [address] [place] [address] Neutrophils (Bld) [#/Vol] 11.68 10*3/uL High 1.60-7.60 [facility] Comment on above: Performed By: #### L [id number] #### [facility] ([facility]) [address] [place] [address] Neutrophils/100 WBC (Bld) 89.9 % High 40.0-72.0 [facility] Comment on above: Performed By: #### L [id number] #### [facility] ([facility]) [address] [place] [address] NRBC (PER 100 WBCS) BY AUTOMATED COUNT 0.0 % Normal 0.0-0.0 [facility] Comment on above: Performed By: #### L [id number] #### [facility] ([facility]) [address] [place] [address] PLATELETS (10*3/UL) IN BLOOD AUTOMATED COUNT 243 10*3/uL Normal 150-400 [facility] Comment on above: Performed By: #### L [id number] #### [facility] ([facility]) [address] [place] [address] RBC (Bld) [#/Vol] 3.43 10*6/uL Low 3.80-5.00 [facility] Comment on above: Performed By: #### L [id number] #### [facility] ([facility]) [address] [place] [address] WBC (Bld) [#/Vol] 12.99 10*3/uL High 4.00-10.60 [facility] Comment on above: Performed By: #### L [id number] #### [facility] ([facility]) [address] [place] [address] Basophils (Bld) [#/Vol] 0.01 10*3/uL Normal 0.00-0.20 [facility] Comment on above: Performed By: #### L [id number] #### [facility] ([facility]) [address] [place] [address] Basophils/100 WBC (Bld) 0.1 % Normal 0.0-1.0 [facility] Comment on above: Performed By: #### L [id number] #### [facility] ([facility]) [address] [place] [address] Eosinophils (Bld) [#/Vol] 0.00 10*3/uL Normal 0.00-0.50 [facility] Comment on above: Performed By: #### L [id number] #### [facility] ([facility]) [address] [place] [address] Eosinophils/100 WBC (Bld) 0.0 % Normal 0.0-6.0 [facility] Comment on above: Performed By: #### L [id number] #### [facility] ([facility]) [address] [place] [address] Erythrocyte distribution width (RBC) [Ratio] 13.8 % Normal 11.5-15.0 [facility] Comment on above: Performed By: #### L [id number] #### [facility] ([facility]) [address] [place] [address] ERYTHROCYTE MEAN CORPUSCULAR HEMOGLOBIN CONCENTRATION (G/DL) BY AUTOMATED 32.8 g/dL Normal 32.0-35.0 [facility] Comment on above: Performed By: #### L [id number] #### [facility] ([facility]) [address] [place] [address] Hematocrit (Bld) [Volume fraction] 25.6 % Low 36.0-48.0 [facility] Comment on above: Performed By: #### L [id number] #### [facility] ([facility]) [address] [place] [address] Hemoglobin (Bld) [Mass/Vol] 8.4 g/dL Low 12.0-15.0 [facility] Comment on above: Performed By: #### L [id number] #### [facility] ([facility]) [address] [place] [address] Immature granulocytes (Bld) [#/Vol] 0.08 10*3/uL Normal 0.00-0.20 [facility] Comment on above: Performed By: #### L [id number] #### [facility] ([facility]) [address] [place] [address] Immature granulocytes/100 WBC (Bld) 0.8 % Normal 0.0-1.0 [facility] Comment on above: Performed By: #### L [id number] #### [facility] ([facility]) [address] [place] [address] Lymphocytes (Bld) [#/Vol] 0.44 10*3/uL Low 1.20-4.00 [facility] Comment on above: Performed By: #### L [id number] #### [facility] ([facility]) [address] [address] Lymphocytes/100 WBC (Bld) 4.3 % Low 20.0-45.0 [facility] Comment on above: Performed By: #### L [id number] #### [facility] ([facility]) [address] [place] [address] MCH (RBC) [Entitic mass] 24.9 pg Low 27.0-33.0 [facility] Comment on above: Performed By: #### L [id number] #### [facility] ([facility]) [address] [address] MCV (RBC) [Entitic vol] 75.7 fL Low 82.0-98.0 [facility] Comment on above: Performed By: #### L [id number] #### [facility] ([facility]) [address] [place] [address] Monocytes (Bld) [#/Vol] 0.52 10*3/uL Normal 0.10-1.00 [facility] Comment on above: Performed By: #### L [id number] #### [facility] ([facility]) [address] [place] [address] Monocytes/100 WBC (Bld) 5.1 % Normal 5.0-12.0 [facility] Comment on above: Performed By: #### L [id number] #### [facility] ([facility]) [address] [place] [address] Neutrophils (Bld) [#/Vol] 9.22 10*3/uL High 1.60-7.60 [facility] Comment on above: Performed By: #### L [id number] #### [facility] ([facility]) [address] [place] [address] Neutrophils/100 WBC (Bld) 89.7 % High 40.0-72.0 [facility] Comment on above: Performed By: #### L [id number] #### [facility] ([facility]) [address] [place] [address] NRBC (PER 100 WBCS) BY AUTOMATED COUNT 0.0 % Normal 0.0-0.0 [facility] Comment on above: Performed By: #### L [id number] #### [facility] ([facility]) [address] [place] [address] PLATELETS (10*3/UL) IN BLOOD AUTOMATED COUNT 231 10*3/uL Normal 150-400 [facility] Comment on above: Performed By: #### L [id number] #### [facility] ([facility]) [address] [place] [address] RBC (Bld) [#/Vol] 3.38 10*6/uL Low 3.80-5.00 [facility] Comment on above: Performed By: #### L [id number] #### [facility] ([facility]) [address] [place] [address] WBC (Bld) [#/Vol] 10.27 10*3/uL Normal 4.00-10.60 [facility] Comment on above: Performed By: #### L [id number] #### [facility] ([facility]) [address] [place] [address] COMPREHENSIVE METABOLIC PANE Onesimo 01-26-2023 Albumin [Mass/Vol] 3.1 g/dL Low 3.5-5.7 [facility] Comment on above: Performed By: #### L [id number] #### [facility] ([facility]) [address] [place] [address] ALP [Catalytic activity/Vol] 56 U/L Normal 34-104 [facility] Comment on above: Performed By: #### L [id number] #### [facility] ([facility]) [address] [place] [address] ALT [Catalytic activity/Vol] 36 U/L Normal 7-52 [facility] Comment on above: Performed By: #### L [id number] #### [facility] ([facility]) [address] [place] [address] Anion gap [Moles/Vol] 13 mmol/L Normal 7-20 [facility] Comment on above: Performed By: #### L [id number] #### [facility] ([facility]) [address] [place] [address] AST [Catalytic activity/Vol] 31 U/L Normal 13-39 [facility] Comment on above: Performed By: #### L [id number] #### [facility] ([facility]) [address] [place] [address] Bilirubin [Mass/Vol] 0.3 mg/dL Normal 0.3-1.0 [facility] Comment on above: Performed By: #### L [id number] #### [facility] ([facility]) [address] [place] [address] Calcium [Mass/Vol] 8.5 mg/dL Low 8.6-10.3 [facility] Comment on above: Performed By: #### L [id number] #### [facility] ([facility]) [address] [place] [address] Chloride [Moles/Vol] 91 mmol/L Low 98-107 [facility] Comment on above: Performed By: #### L [id number] #### [facility] ([facility]) [address] [place] [address] CO2 [Moles/Vol] 24 mmol/L Normal 21-31 [facility] Comment on above: Performed By: #### L [id number] #### [facility] ([facility]) [address] [place] [address] Creatinine [Mass/Vol] 0.93 mg/dL Normal 0.60-1.20 [facility] Comment on above: Performed By: #### L [id number] #### [facility] ([facility]) [address] [place] [address] GLOMERULAR FILTRATION RATE ML/MIN/1.73 SQ M.PREDICTED 66.9 mL/min/1.73m*2 Normal >60.0 [facility] Comment on above: Result Comment: The [facility]???s estimated glomerular filtration rate (eGFR) will no longer include consideration of race in its calculation. The National Kidney Foundation???s eGFR Task Force developed new recommendations for the estimation of the glomerular filtration rate in the [place] They recommend immediate implementation of the new equation refit without the race variable in all laboratories because the calculation does not include race. In addition to not including race in the calculation and reporting, it included diversity in its development, and has acceptable performance characteristics and potential consequences that do not disproportionately affect any one group of individuals. Performed By: #### L [id number] #### [facility] ([facility]) [address] [place] [address] Glucose [Mass/Vol] 112 mg/dL High 70-100 [facility] Comment on above: Performed By: #### L [id number] #### [facility] ([facility]) [address] [place] [address] Potassium [Moles/Vol] 3.7 mmol/L Normal 3.5-5.1 [facility] Comment on above: Performed By: #### L [id number] #### [facility] ([facility]) [address] [place] [address] Protein [Mass/Vol] 6.7 g/dL Normal 6.0-8.3 [facility] Comment on above: Performed By: #### L [id number] #### [facility] ([facility]) [address] [place] [address] Sodium [Moles/Vol] 124 mmol/L Invalid Interpretation Code 136-145 [facility] Comment on above: Performed By: #### L [id number] #### [facility] ([facility]) [address] [place] [address] Urea nitrogen [Mass/Vol] 24 mg/dL Normal 7-25 [facility] Comment on above: Performed By: #### L [id number] #### [facility] ([facility]) [address] [place] [address] UREA NITROGEN/CREATININE (MASS RATIO) IN SER/PLAS 25.8 Normal [facility] Comment on above: Performed By: #### L [id number] #### [facility] ([facility]) [address] [place] [address] CONSULTon 01-26-2023 CONSULT ----- ----- Attestation signed by Robbi Henderson MD at 01/26/2023 2:51 PM I personally saw and examined the patient on the same date of service as resident/fellow Dr Spencer. I discussed the findings and therapeutic plan with the resident/fellow Dr Spencer. I agree with the documentation, except for any edits/updates below. Teaching Physician's Revisions: Robbi Henderson MD, MPH, [facility], [facility], [facility] Interventional Cardiology Pager Email: [email or web address] ----- Reason For Consult NSTEMI History Of Present Illness Perla Ibarra is a 67 y.o. female seen sedated and intubated in the MICU, so hx taken by report and chart review. Patient without known past medical history. She has a history of significant tobacco smoking 1 pack a day. She was transferred from outside hospital [facility] for for further work-up of new onset acute decompensated heart failureInitially she presented to [place] with shortness of breath per chart review she had some nausea for the last few days. Also she complained of sore throat and nasal congestion and cough. Apparently, patient has not been following with any physicians for many years. In review she tested positive for parainfluenza and she was found to have elevated proBNP and trop. she was tachycardic and has elevated lactate. Echocardiogram showed reduced EF of 35 to 40%. EKG without significant changes however borderline quality. Patient was planned to transfer to [facility] for further work-up, and before transfer she was intubated due to acute hypoxic respiratory failure. She was initially treated with heparin infusion along with empiric antibiotics piperacillin/tazobactam and Levaquin and supplemental oxygen, methylprednisolone and DuoNeb. Noted she did have a failed attempt at a right IJ central line and had a right femoral central line placed along with having a Ochoa catheter placed at outside facility. Prior to intubation patient had following blood gas on 2 L/min nasal cannula: 7.25, 54.7, 70.6, 91.5%. Repeat EKG at [facility] showed biphasic TW abnormality in V1- V4. Trop 0.67 >0.51>0.45. BNP 1500. CXR There are no significant infiltrates or effusions. Past Medical History She has no past medical history on file. Surgical History She has no past surgical history on file. Family History No family history on file. Social History She reports that she has never smoked. She has never used smokeless tobacco. She reports that she does not drink alcohol and does not use drugs. Allergies Erythromycin Medications No medications prior to admission. Active Hospital Medications Medication Dose Route Frequency Last Admin aspirin 81 mg oral Daily 81 mg at 01/26/23 0850 cefTRIAXone 1 g intravenous q24h Stopped at 01/25/23 2322 dexmedeTOMIDine 0.2-1.5 mcg/kg/hr intravenous Continuous 0.6 mcg/kg/hr at 01/26/23 1245 glucose 24 g oral PRN Or dextrose 50 % in water (D50W) 25 g intravenous PRN doxycycline mnohydrate 100 mg oral BID 100 mg at 01/26/23 0850 famotidine 20 mg intravenous BID 20 mg at 01/26/23 0851 Or famotidine 20 mg oral BID 20 mg at 01/26/23 0107 fentaNYL 25 mcg intravenous q3h PRN 25 mcg at 01/26/23 0315 Or fentaNYL 50 mcg intravenous q3h PRN heparin 0-28 Units/kg/hr intravenous Continuous 17 Units/kg/hr at 01/26/23 1303 insulin aspart 0-20 Units subcutaneous q6h ipratropium-albuteroL 3 mL nebulization q6h PRN lactated Ringer's 75 mL/hr intravenous Continuous Stopped at 01/26/23 1000 methylPREDNISolone sod suc (PF) 40 mg intravenous q8h norepinephrine 0.01-2 mcg/kg/min intravenous Continuous Stopped at 01/26/23 0945 polyethylene glycol 17 g oral Nightly PRN propofol 0-70 mcg/kg/min intravenous Continuous 20 mcg/kg/min at 01/26/23 1225 sulfur hexafluoride microsphr 2 mL intravenous Once in imaging 24.28 mg at 01/26/23 1145 Review of Systems 12 point ROS negative except as in HPI Last Recorded Vitals Patient Vitals for the past 24 hrs: BP Temp Temp src Pulse Resp SpO2 Height Weight 01/26/23 1257 -- -- -- -- 17 97 % -- -- 01/26/23 1200 95/61 36.8 ???C (98.2 ???F) Esophageal 66 14 96 % -- -- 01/26/23 1100 129/66 36.8 ???C (98.2 ???F) -- 98 23 93 % -- -- 01/26/23 1000 126/65 36.6 ???C (97.9 ???F) -- 96 21 95 % -- -- 01/26/23 0900 115/57 36.3 ???C (97.3 ???F) -- 83 17 97 % -- -- 01/26/23 0853 -- -- -- 74 17 97 % -- -- 01/26/23 0800 101/58 36.5 ???C (97.7 ???F) Esophageal 76 16 96 % -- -- 01/26/23 0600 96/55 36.2 ???C (97.2 ???F) -- 71 16 97 % -- -- 01/26/23 0500 95/58 36.7 ???C (98.1 ???F) -- 79 16 96 % -- -- 01/26/23 0437 -- -- Esophageal -- -- -- 1.676 m (5' 5.98 ) 72.2 kg (159 lb 2.8 oz) 01/26/23 0408 -- -- -- 73 19 97 % -- -- 01/26/23 0400 101/56 36.5 ???C (97.7 ???F) -- 70 16 97 % -- -- 01/26/23 0300 94/56 36.1 ???C (97 ???F) -- (more content not included)... Normal [facility] CT CHEST ANGIOGRAM W AND/OR WO IV CONTRASTon 01-26-2023 CT CHEST ANGIOGRAM W AND/OR WO IV CONTRAST CT CHEST ANGIOGRAM W AND/OR WO IV CONTRAST 01/26/2023 4:54 PM CLINICAL INDICATIONS: Respiratory failure Hypoxia Ventilator dependent TECHNIQUE: CT angiography of the chest were obtained with intravenous contrast. Multiplanar, MIP, and volume rendered 3-D reformats were generated on a separate workstation and reviewed to further define anatomy and possible pathology. All CT scans at this facility use dose modulation, iterative reconstruction, and/or weight based dosing when appropriate to reduce radiation dose to as low as reasonably achievable. COMPARISON: Chest x-ray from earlier the same day FINDINGS: There are no pulmonary emboli seen There is no aortic dissection seen No pericardial effusion No pleural effusion Small nodule right thyroid lobe can be better evaluated with sonographic surveillance within 6 months Endotracheal tube in place NG tube in place Left central line There are small to borderline enlarged lymph nodes in the pericarinal and subcarinal region and left greater than right hilum There is some thickening of the peribronchial wall left greater than right There is patchy multifocal nodular opacity throughout both upper and lower lungs, left slightly greater than right No discrete mass or cavitary process No lobar collapse or consolidation There is incomplete evaluation of the upper abdomen It looks like there is mild right hydronephrosis There is asymmetric dense appearance of what may be the upper pole of the left kidney versus bowel positioned in that location. There is some heterogeneous fullness of the right renal hilum and renal vein and IVC Dedicated abdominal pelvic CT suggested to exclude renal mass, renal vein thrombosis, or other pathology No compression fracture No aggressive disc disease IMPRESSION: Unusual appearance of the kidneys and right renal vein and IVC. There appears to be fullness on the right side, distention of the right renal collecting system, and possible asymmetric dense nephrogram left kidney Dedicated abdominal pelvic CT suggested to check for renal mass, renal vein thrombus, or other underlying pathology No visible pulmonary embolism or aortic dissection Patchy multifocal nodular opacity in both lungs with mild prominence of the lymph nodes in the pericarinal and left greater than right hilum. Pattern could be seen with viral or atypical infection, granulomatous condition, or other inflammatory process Repeat chest CT suggested after the acute presentation clears within 3 months to check for clearing and normalization, exclude underlying pathology or neoplasm Small nodule right thyroid lobe can be better characterized with 6 month follow-up thyroid ultrasound surveillance scan Electronically signed: Leoncio Hannah. Normal [facility] FERRITINon 01-26-2023 FERRITIN (NG/ML) IN SER/PLAS 360.0 ng/mL High 11.0-307.0 [facility] Comment on above: Performed By: #### L [id number] #### [facility] ([facility]) [address] [place] [address] HEPARIN LEVELon 01-26-2023 HEPARIN UNFRACTIONATED (U/ML) IN PPP BY CHROMOGENIC METHOD 0.48 IU/mL Normal 0.3-0.7 [facility] Comment on above: Order Comment: Monit or triglycerides while patient is on propofol. Consult Nutrition if greater than 500 mg/dL. Result Comment: Vita roxaban and Apixaban will interfere with the anti Xa assay used to monitor UFH and LMWH. Performed By: #### L [id number] #### [facility] ([facility]) [address] [place] [address] HEPARIN UNFRACTIONATED (U/ML) IN PPP BY CHROMOGENIC METHOD 0.13 IU/mL Invalid Interpretation Code 0.3-0.7 [facility] Comment on above: Order Comment: Check anti-Xa level every 6 hours while on heparin infusion, or per protocol. Result Comment: Vita roxaban and Apixaban will interfere with the anti Xa assay used to monitor UFH and LMWH. Performed By: #### L [id number] #### [facility] ([facility]) [address] [place] [address] HEPATITIS C ANTIBODYon 01-26 HEPATITIS C VIRUS AB PRESENCE IN SERUM Non-Reactive Normal Nonreactive [facility] Comment on above: Result Comment: Shagufta tor triglycerides while patient is on propofol Performed By: #### L [id number] ####[facility] ([facility])[address] [place] [address] HPon 01-26-2023 HP ----- ----- Attestation signed by Ammy Bridges MD at 01/26/2023 3:02 PM H and P reviewed. No significant changes. Patient presenting with EKG changes and acute decompensated systolic heart failure. Plan to proceed with cath. Procedure was explained to patient at length and in detail. Risks, benefits, and alternatives were discussed. POA is informed that risks of this invasive procedure include, but are not limited to, bleeding, hematoma, kidney injury, CVA, arrythmia requiring defibrillation, need for emergent open heart surgery, and . POA understands these risks and consents for procedure. Ammy Bridges MD ----- PRE PROCEDURE HISTORY AND PHYSICAL History Of Present Illness Perla Ibarra is a 67 y.o. female with unknown medical history. She presented to outside hospital with acute onset respiratory distress with ECG changes concerning for anterior ischemia. She was transferred to [facility] for further evaluation and is currently intubated and sedated on propofol infusion. Echocardiogram shows severely depressed LVEF with anterolateral/apical wall motion abnormalities. Biomarkers are mildly elevated and she is noted to be hyponatremic with sodium level of 124. Past Medical History She has no past medical history on file. Surgical History She has no past surgical history on file. Social History She reports that she has never smoked. She has never used smokeless tobacco. She reports that she does not drink alcohol and does not use drugs. Allergies Erythromycin Medications No medications prior to admission. Review of Systems Unable to perform ROS: Acuity of condition Review of systems could not be obtained as the patient is currently intubated and sedated Physical Exam Constitutional: General: She is not in acute distress. Appearance: She is not ill-appearing or diaphoretic. HENT: Head: Normocephalic. Nose: No rhinorrhea. Mouth/Throat: Mouth: Mucous membranes are dry. Comments: 7.5 ET tube, OG tube Eyes: General: No scleral icterus. Right eye: No discharge. Left eye: No discharge. Pupils: Pupils are equal, round, and reactive to light. Neck: Comments: L internal jugular ecchymoses w/o purulence or swelling Cardiovascular: Rate and Rhythm: Normal rate and regular rhythm. Pulses: Normal pulses. Heart sounds: No murmur heard. No gallop. Pulmonary: Effort: No respiratory distress. Breath sounds: No stridor. No wheezing or rales. Abdominal: General: Abdomen is flat. Genitourinary: Comments: Ochoa catheter with pale yellow urine Musculoskeletal: Right lower leg: Edema present. Left lower leg: Edema present. Skin: General: Skin is warm. Capillary Refill: Capillary refill takes less than 2 seconds. Coloration: Skin is not jaundiced. Findings: No bruising or lesion. Comments: Right inguinal femoral line without erythema surrounding Neurological: Mental Status: She is alert. Psychiatric: Comments: Unable to assess Last Recorded Vitals Blood pressure 111/62, pulse 69, temperature 36.8 ???C (98.2 ???F), resp. rate 20, height 1.676 m (5' 5.98 ), weight 72.2 kg (159 lb 2.8 oz), SpO2 97 %. Assessment/Plan Principal Problem: Acute coronary syndrome (CMS/HCC) Active Problems: Acute respiratory failure with hypoxia and hypercapnia (CMS/HCC) Parainfluenza infection Acute systolic heart failure (CMS/HCC) Assessment: 1. NSTEMI, type I versus 2 VT 2. Acute hypoxemic respiratory failure on mechanical ventilator 3. New onset LV systolic dysfunction 4. Recent parainfluenza infection Plan: Given concerning EKG changes and new onset LV systolic dysfunction we will proceed with right and left heart catheterization. Risks of the procedure were discussed with her significant other, including renal insufficiency, arrhythmia, bleeding, stroke, myocardial infarction and Dallin Scott, informed consent was obtained. She is agreeable to proceed. Ga Contreras MD [place] Cardiovascular Fellow Normal [facility] IRON AND TIBCon 01-26-2023 IRON (UG/DL) IN SER/PLAS 35 ug/dL Low 50-212 [facility] Comment on above: Performed By: #### L [id number] ####[facility] ([facility])[address] [place] [address] IRON BINDING CAPACITY (UG/DL) IN SER/PLAS 220 ug/dL Low 250-450 [facility] Comment on above: Performed By: #### L [id number] ####[facility] ([facility])[address] [place] [address] IRON BINDING CAPACITY.UNSATURATED (UG/DL) IN SER/PLAS 185.0 ug/dL Normal 155.0-355.0 [facility] Comment on above: Performed By: #### L [id number] ####[facility] [place] [address] IRON SATURATION (%) IN SER/PLAS 16 % Low 20-50 [facility] Comment on above: Performed By: #### L [id number] ####[facility] ([facility])[address] [facility] [address] LACTIC ACID WITH 4 HOUR REFL EXon 01-26-2023 LACTATE (MMOL/L) IN SER/PLAS 0.8 mmol/L Normal 0.5-2.2 [facility] Comment on above: Performed By: #### L [id number] ####[facility] ([facility])[address] [facility] [address] LIPID PANELon 01-26-2023 CHOL/HDL 2.5 mg/dL Normal [facility] Comment on above: Performed By: #### L [id number] #### [facility] ([facility]) [address] [place] [address] Cholesterol [Mass/Vol] 113 mg/dL Low 120-200 [facility] Comment on above: Performed By: #### L [id number] #### [facility] [address] [place] [address] Magnesium [Mass/Vol] 107 mg/dL Normal 40-149 [facility] Comment on above: Performed By: #### L [id number] #### [facility] ([facility]) [address] [place] [address] Magnesium [Mass/Vol] 46 mg/dL Normal 23-92 [facility] Comment on above: Performed By: #### L [id number] #### [facility] [address] [place] [address] NON HDL CHOL. (LDL+VLDL) 67 Normal [facility] Comment on above: Performed By: #### L [id number] #### [facility] ([facility]) [address] [place] [address] TOTAL VLDL-C 21 mg/dL Normal 0-40 [facility] Comment on above: Performed By: #### L [id number] #### [facility] ([facility]) [address] [place] [address] MAGNESIUMon 01-26-2023 Magnesium [Mass/Vol] 2.6 mg/dL Normal 1.9-2.7 [facility] Comment on above: Performed By: #### L [id number] ####[facility] ([facility])[address] [place] [address] Magnesium [Mass/Vol] 1.7 mg/dL Low 1.9-2.7 [facility] Comment on above: Performed By: #### L [id number] #### [facility] ([facility]) [address] [place] [address] MRSA/MSSA DNA NASALon 2022 MRSA DNA Negative Normal Negative [facility] Comment on above: Performed By: #### L [id number] ####[facility] ([facility])[address] [place] [address] MSSA DNA Negative Normal Negative [facility] Comment on above: Performed By: #### L [id number] ####[facility] ([facility])[address] [place] [address] PHOSPHORUSon 01-26-2023 Magnesium [Mass/Vol] 4.5 mg/dL Normal 2.5-5.0 [facility] Comment on above: Performed By: #### L [id number] ####[facility] [place] [address] Magnesium [Mass/Vol] 4.7 mg/dL Normal 2.5-5.0 [facility] Comment on above: Performed By: #### L [id number] #### [facility] ([facility]) [address] [place] [address] POCT GLUCOSE METER UNSOLICIT ED RESULTSon 01-26-2023 Glucose [Mass/Vol] 134 mg/dL High 70-105 [facility] Comment on above: Result Comment: [email or web address] [email or web address] Performed By: #### L [id number] #### [facility] ([facility]) [address] [place] [address] Glucose [Mass/Vol] 121 mg/dL High 70-105 [facility] Comment on above: Result Comment: [email or web address] [email or web address] Performed By: #### L [id number] ####[facility] ([facility])[address] [facility] [place] [address] PROCALCITONIN TESTon 023 PROCALCITONIN IN BLOOD 4.16 ng/mL Critically high 0.00-0.1 0 [facility] Comment on above: Result Comment: Susp ected Lower Respiratory Tract Infection: 0.1-0.25 ng/mL - Low likelihood for bacterial infection;Antibiotics discouraged.* >0.25 ng/mL - Increased likelihood bacterial infection;Antibiotics encouraged. Suspected Sepsis: Strongly consider initiating antibiotics in all unstable patients. 0.1-0.5 ng/mL - Low likelihood for sepsis; Antibiotics discouraged.* >0.5 ng/mL - Increased likelihood sepsis; Antibiotics encouraged. >2.0 ng/mL - High risk of sepsis/septic shock; Antibiotics strongly encouraged. *Recommend retesting PCT within 6-12 hours if clinically indicated and initial PCT<0.5ng/mL Performed By: #### L [id number] ####[facility] ([facility])[address] [place] [address] PROCALCITONIN IN BLOOD 4.83 ng/mL Critically high 0.00-0.1 0 [facility] Comment on above: Result Comment: Shagufta tor triglycerides while patient is on propofol Performed By: #### L [id number] #### [facility] ([facility]) [address] [place] [address] PROCALCITONIN IN BLOOD 4.71 ng/mL Critically high 0.00-0.1 0 [facility] Comment on above: Result Comment: Susp ected Lower Respiratory Tract Infection: 0.1-0.25 ng/mL - Low likelihood for bacterial infection;Antibiotics discouraged.* >0.25 ng/mL - Increased likelihood bacterial infection;Antibiotics encouraged. Suspected Sepsis: Strongly consider initiating antibiotics in all unstable patients. 0.1-0.5 ng/mL - Low likelihood for sepsis; Antibiotics discouraged.* >0.5 ng/mL - Increased likelihood sepsis; Antibiotics encouraged. >2.0 ng/mL - High risk of sepsis/septic shock; Antibiotics strongly encouraged. *Recommend retesting PCT within 6-12 hours if clinically indicated and initial PCT<0.5ng/mL Performed By: #### L [id number] ####[facility] ([facility])[address] [place] [address] PROTIME-INRon 01-26-2023 INR IN PPP BY COAGULATION ASSAY 1.01 Normal 0.90-1.10 [facility] Comment on above: Result Comment: ACCC P RECOMMENDED INR FOR WARFARIN THERAPY CONDITION INR PROPHYLAXIS OF VENOUS THROMBOSIS 2-3 (HIGH-RISK SURGERY) TREATMENT OF VENOUS THROMBOSIS 2-3 TREATMENT OF PULMONARY EMBOLISM 2-3 PREVENTION OF SYSTEMIC EMBOLISM: 2-3 ACUTE MYOCARDIAL INFARCTION TISSUE HEART VALVES VALVULAR HEART DISEASE ATRIAL FIBRILLATION RECURRENT SYSTEMIC EMBOLISM MECHANICAL HEART VALVE 2.5-3.5 FROM: ORAL ANTICOAGULANTS. MECHANISM OF ACTION, CLINICAL EFFECTIVENESS, AND OPTIMAL THERAPEUTIC RANGE. CHEST 1995;108:231S-246S. Performed By: #### L [id number] #### [facility] ([facility]) [address] [place] [address] PROTHROMBIN TIME (PT) IN PPP BY COAGULATION ASSAY 13.3 Seconds Normal 12.3-14.8 [facility] Comment on above: Performed By: #### L [id number] #### [facility] ([facility]) [address] [place] [address] SPUTUM CULTUREon 01-26-2023 GRAM STAIN RESULT Normal [facility] Comment on above: Order Comment: Rare Growth Colonies Consistent with Upper Respiratory Radha Result Comment: >25 Polymorphonuclear leukocytes <10 Squamous Epithelial Cells Per Low Power Field No organisms seen Performed By: #### L [id number] #### [facility] ([facility]) [address] [place] [address] TRIGLYCERIDESon 01-26-2023 FASTING? UNKNOWN Normal [facility] Comment on above: Order Comment: Monit or triglycerides while patient is on propofol. Consult Nutrition if greater than 500 mg/dL. Performed By: #### L [id number] #### [facility] ([facility]) [address] [place] [address] Magnesium [Mass/Vol] 108 mg/dL Normal 40-149 [facility] Comment on above: Order Comment: Monit or triglycerides while patient is on propofol. Consult Nutrition if greater than 500 mg/dL. Result Comment: TRIG LYCERIDE REFERENCE RANGE: 20 YEARS AND OLDER CARDIOVASCULAR RISK LESS THAN 150 mg/dL LOW RISK 150 TO 199 mg/dL BORDERLINE RISK 200 mg/dL AND GREATER HIGH RISK Performed By: #### L [id number] #### [facility] ([facility]) [address] [place] [address] TROPONIN Ion 01-26-2023 Troponin I.cardiac [Mass/Vol] 0.45 ng/mL Critically high 0.00-0.04 [facility] Comment on above: Result Comment: M-MS EVIOUS CRITICAL RESULT Previous result verified on 01/26/2023 0524 on specimen/case [id number] called with component Troponin I for procedure Troponin I with value 0.51 ng/mL. Performed By: #### L [id number] ####[facility] ([facility])[address] [place] [address] Troponin I.cardiac [Mass/Vol] 0.51 ng/mL Critically high 0.00-0.04 [facility] Comment on above: Result Comment: M-MS EVIOUS CRITICAL RESULT Previous result verified on 01/25/2023 2349 on specimen/case [id number] called with component Troponin I for procedure Troponin I with value 0.67 ng/mL. Performed By: #### L [id number] #### [facility] ([facility]) [address] [place] [address] Troponin I.cardiac [Mass/Vol] 0.67 ng/mL Critically high 0.00-0.04 [facility] Comment on above: Result Comment: M-TR OPONIN INITIAL CRITICAL HIGH; RESPUN AND RETESTED Performed By: #### L [id number] #### [facility] ([facility]) [address] [place] [address] TSH3 REFLEX TO FT4on 023 THYROTROPIN (MIU/L) IN SER/PLAS BY DETECTION LIMIT <= 0.05 MIU/L 0.38 mIU/L Normal 0.34-5.60 [facility] Comment on above: Performed By: #### L [id number] #### [facility] ([facility]) [address] [place] [address] URINALYSISon 01-26-2023 BILIRUBIN, TOTAL PRESENCE IN URINE Negative Normal Negative [facility] Comment on above: Performed By: #### L [id number] ####[facility] ([facility])[address] [place] [address] Clarity (U) Slightly Cloudy Abnormal Clear [facility] Comment on above: Performed By: #### L [id number] ####[facility] ([facility])[address] [place] [address] Color (U) Yellow Normal Yellow [facility] Comment on above: Performed By: #### L [id number] ####[facility] ([facility])[address] [place] [address] Glucose (U) [Mass/Vol] Negative Normal [facility] Comment on above: Performed By: #### L [id number] ####[facility] ([facility])[address] [place] [address] HEMOGLOBIN PRESENCE IN URINE Large Abnormal Negative [facility] Comment on above: Performed By: #### L [id number] ####[facility] ([facility])[address] [place] [address] Ketones Ql (U) Negative Normal Negative [facility] Comment on above: Performed By: #### L [id number] ####[facility] [place] [address] LEUKOCYTE ESTERASE PRESENCE IN URINE BY TEST STRIP Negative Normal Negative [facility] Comment on above: Performed By: #### L [id number] ####[facility] [place] [address] NITRITE PRESENCE IN URINE Negative Normal Negative [facility] Comment on above: Performed By: #### L [id number] ####[facility] ([facility])[address] [place] [address] pH (U) 6.0 [pH] Normal 5.0-8.0 [facility] Comment on above: Performed By: #### L [id number] ####[facility] ([facility])[address] [place] [address] Protein (U) [Mass/Vol] 30 mg/dL Abnormal Negative [facility] Comment on above: Performed By: #### L [id number] ####[facility] [place] [address] Specific gravity (U) [Rel density] 1.048 High 1.015-1.020 [facility] Comment on above: Performed By: #### L [id number] ####[facility] ([facility])[address] [place] [address] URINALYSIS MICROSCOPICon CASTS IN URINE Normal [facility] Comment on above: Performed By: #### L [id number] #### [facility] ([facility]) [address] [place] [address] CRYSTALS IN URINE Normal [facility] Comment on above: Performed By: #### L [id number] #### [facility] ([facility] [address] [place] [address] MUCUS (#/HPF) IN URINE SEDIMENT Occasional Normal None Seen, Occasional, Few [facility] Comment on above: Performed By: #### L [id number] #### [facility] ([facility]) [address] [place] [address] RBC (#/HPF) IN URINE SEDIMENT >100 Abnormal None Seen [facility] Comment on above: Performed By: #### L [id number] #### [facility] ([facility]) [address] [place] [address] SQUAMOUS EPITHELIAL CELLS (#/HPF) IN URINE SEDIMENT Few Abnormal None Seen, Occasional [facility] Comment on above: Performed By: #### L [id number] #### [facility] ([facility]) [address] [place] [address] WBC (LEUKOCYTE) (#/HPF) IN URINE SEDIMENT 21-50 Abnormal None Seen [facility] Comment on above: Performed By: #### L [id number] #### [facility] ([facility]) [address] [place] [address] BLOOD GASES BTYon 01-25-2023 02 MODE VENTILATOR Normal [facility] Comment on above: Performed By: #### A BG #### [facility] [address] [address] [address] Allen Smith ALLENS TEST Positive Normal [facility] Comment on above: Performed By: #### A BG #### [facility] [address] [place] [address] Dr. Allen Smith Base excess Calc (Bld) [Moles/Vol] -2.5000 mmol/L Critically low -2.0-2.0 [facility] Comment on above: Performed By: #### A BG #### [facility] [address] [place] [address] Dr. Allen Smith BIPAP PRESSURE Normal [facility] Comment on above: Performed By: #### A BG #### [facility] [address] [place] [address] Dr. Allen Smith CPAP [facility] Comment on above: Performed By: #### A BG #### [facility] [address] [place] [address] Dr. Allen Smith FIO2 40.00 % Normal [facility] Comment on above: Performed By: #### A BG #### [facility] [address] [place] [address] Dr. Allen Smith HCO3 (Bld) [Moles/Vol] 24.1 mmol/L Normal 22.0-26.0 T [facility] Comment on above: Performed By: #### A BG #### [facility] [address] [place] [address] Dr. Allen Smith LPM [facility] Comment on above: Performed By: #### A BG #### [facility] [address] [address] [address] Allen Smith MINUTE VOLUME [facility] Comment on above: Performed By: #### A BG #### [facility] [address] [place] [address] Dr. Allen Smith Oxygen (Bld) [Partial pressure] 85.1 mm[Hg] Normal 80.0-100.0 [facility] Comment on above: Performed By: #### A BG #### [facility] [address] [address] [address] Allen Smith Oxygen saturation in Blood 96.2 % Normal 95.0-100.0 [facility] Comment on above: Performed By: #### A BG #### [facility] [address] [place] [address] Dr. Allen Smith PCO2 50.1 mmHg Critically high 35.0-45.0 [facility] Comment on above: Performed By: #### A BG #### [facility] [address] [place] [address] Dr. Allen Smith PEEP 5 [facility] Comment on above: Performed By: #### A BG #### [facility] [address] [place] [address] Dr. Allen Smith pH (Bld) 7.290 [pH] Critically low 7.350-7.450 [facility] Comment on above: Performed By: #### A BG #### [facility] [address] [place] [address] Dr. Allen Smith PIP [facility] Comment on above: Performed By: #### A BG #### [facility] [address] [place] [address] Dr. Allen Smith PS [facility] Comment on above: Performed By: #### A BG #### [facility] [address] [place] [address] Dr. Allen Smith PUNCTURE SITE RR [facility] Comment on above: Performed By: #### A BG #### [facility] [address] [place] [address] Dr. Allen Smith RATE 12 bpm [facility] Comment on above: Performed By: #### A BG #### [facility] [address] [address] [address] Allen Smith VENT MODE ac [facility] Comment on above: Performed By: #### A BG #### [facility] [address] [place] [address] Dr. Allen Smith [place] 450 ML [facility] Comment on above: Result Comment: Prev iously reported as: 400 On 01/25/2023 17:03 By GC1 Performed By: #### A BG #### [facility] [address] [place] [address] Dr. Allen Smith 02 MODE NASAL CANNULA [facility] Comment on above: Performed By: #### T SH #### [facility] [address] [place] [address] Dr. Allen Smith ALLENS TEST Positive [facility] Comment on above: Performed By: #### T SH #### [facility] [address] [place] [address] Dr. Allen Smith Base excess Calc (Bld) [Moles/Vol] -2.9000 mmol/L Critically low -2.0-2.0 [facility] Comment on above: Performed By: #### T SH #### [facility] [address] [place] [address] Dr. Allen Smith BIPAP PRESSURE [facility] Comment on above: Performed By: #### T SH #### [facility] [address] [place] [address] Dr. Allen Smith CPAP [facility] Comment on above: Performed By: #### T SH #### [facility] [address] [place] [address] Dr. Allen Smith FIO2 [facility] Comment on above: Performed By: #### T SH #### [facility] [address] [place] [address] Dr. Allen Smith HCO3 (Bld) [Moles/Vol] 24.2 mmol/L Normal 22.0-26.0 [facility] Comment on above: Performed By: #### T SH #### [facility] [address] [place] [address] Dr. Allen Smith LP 2 [facility] Comment on above: Performed By: #### T SH #### [facility] [address] [place] [address] Dr. Allen Smith MINUTE VOLUME Normal [facility] Comment on above: Performed By: #### T SH #### [facility] [address] [place] [address] Dr. Allen Smith Oxygen (Bld) [Partial pressure] 70.6 mm[Hg] Critically low 80.0-100.0 [facility] Comment on above: Performed By: #### T SH #### [facility] [address] [place] [address] Dr. Allen Smith Oxygen saturation in Blood 91.5 % Critically low 95.0-100.0 [facility] Comment on above: Performed By: #### T SH #### [facility] [address] [place] [address] Dr. Allen Smith PCO2 54.7 mmHg Critically high 35.0-45.0 [facility] Comment on above: Performed By: #### T SH #### [facility] [address] [place] [address] Dr. Allen Smith PEEP [facility] Comment on above: Performed By: #### T SH #### [facility] [address] [place] [address] Dr. Allen Smith pH (Bld) 7.255 [pH] Critically low 7.350-7.450 [facility] Comment on above: Performed By: #### T SH #### [facility] [address] [place] [address] Dr. Allen Smith [facility] Comment on above: Performed By: #### T SH #### [facility] [address] [place] [address] Dr. Allen Smith PS [facility] Comment on above: Performed By: #### T SH #### [facility] [address] [place] [address] Dr. Allen Smith PUNCTURE SITE RR [facility] Comment on above: Performed By: #### T SH #### [facility] [address] [place] [address] Dr. Allen Smith RATE [facility] Comment on above: Performed By: #### T SH #### [facility] [address] [place] [address] Dr. Allen Smith VENT MODE [facility] Comment on above: Performed By: #### T SH #### [facility] [address] [place] [address] Dr. Allen Smith [place] [facility] Comment on above: Performed By: #### T SH #### [facility] [address] [place] [address] Dr. Allen Smith BNPon 01-25-2023 Natriuretic peptide B (Bld) [Mass/Vol] 94694.0 pg/mL Critically high <=900.0 [facility] Comment on above: Performed By: #### B BARREL BUILDER, CMP #### [facility] [address] [place] [address] Dr. Allen Smith CARDIAC LI 3-6on 3 CK [Catalytic activity/Vol] 346 U/L Critically high -192 [facility] Comment on above: Performed By: #### T SH #### [facility] [address] [place] [address] Dr. Allen Smith CK.MB [Mass/Vol] 15.70 ng/mL Critically high <=3.60 [facility] Comment on above: Performed By: #### T SH #### [facility] [address] [place] [address] Dr. Allen Smith HSTROP 1206.7 pg/mL Critically high 4.0-51.3 [facility] Comment on above: Result Comment: CUT- OFF POINTS HAVE BEEN ESTABLISHED BASED ON THE FOURTH UNIVERSAL DEFINITIONS OF MYOCARDIAL INFARCTION. THE UPPER REFERENCE LIMIT (URL) OF TROPONIN, DEFINED THE 99TH PERCENTILE OF cTnI DISTRIBUTION IN A REFERENCE POPULATION, HAS BEEN CONFIRMED THE DECISION THRESHOLD FOR [place] DIAGNOSIS. Performed By: #### T SH #### [facility] [address] [place] [address] Dr. Allen Smith CBC AUTO DIFFon 01-25-2023 BASO # 0.0 103/ul Normal 0.0-0.1 [facility] Comment on above: Performed By: #### T SH #### [facility] [address] [place] [address] Dr. Allen Smith Basophils/100 WBC (Bld) 0.1 % Critically low 0.2-2.0 [facility] Comment on above: Performed By: #### T SH #### [facility] [address] [place] [address] Dr. Allen Smith EO # 0.0 103/ul Normal 0.0-0.7 [facility] Comment on above: Performed By: #### T SH #### [facility] [address] [place] [address] Dr. Allen Smith Eosinophils/100 WBC (Bld) 0.0 % Critically low 0.9-7.0 [facility] Comment on above: Performed By: #### T SH #### [facility] [address] [place] [address] Dr. Allen Smith Erythrocyte distribution width (RBC) [Ratio] 13.4 % Normal 11.0-15.0 [facility] Comment on above: Performed By: #### T SH #### [facility] [address] [place] [address] Dr. Allen Smith Hematocrit (Bld) [Volume fraction] 30.2 % Critically low 36.0-48.0 [facility] Comment on above: Performed By: #### T SH #### [facility] [address] [place] [address] Dr. Allen Smith Hemoglobin (Bld) [Mass/Vol] 9.9 g/dL Critically low 12.0-16.0 [facility] Comment on above: Performed By: #### T SH #### [facility] [address] [place] [address] Dr. Allen Smith IG # 0.05 10e3/ul Critically high 0.00-0.03 [facility] Comment on above: Performed By: #### T SH #### [facility] [address] [place] [address] Dr. Allen Smith IG % 0.4 % Normal 0.0-0.5 [facility] Comment on above: Performed By: #### T SH #### [facility] [address] [place] [address] Dr. Allen Smith LYMPH # 0.3 103/ul Critically low 1.2-3.8 [facility] Comment on above: Performed By: #### T SH #### [facility] [address] [place] [address] Dr. Allen Smith Lymphocytes/100 WBC (Bld) 2.5 % Critically low 20.5-60.0 [facility] Comment on above: Performed By: #### T SH #### [facility] [address] [place] [address] Dr. Allen Smith MANUAL DIFF REQ NO Normal [facility] Comment on above: Performed By: #### T SH #### [facility] [address] [place] [address] Dr. Allen Smith MCH (RBC) [Entitic mass] 24.9 pg Critically low 26.7-34.0 [facility] Comment on above: Performed By: #### T SH #### [facility] [address] [place] [address] Dr. Allen Smith MCHC (RBC) [Mass/Vol] 32.8 g/dL Normal 29.9-35.2 [facility] Comment on above: Performed By: #### T SH #### [facility] [address] [place] [address] Dr. Allen Smith MCV (RBC) [Entitic vol] 76.1 fL Critically low 81.0-99.0 [facility] Comment on above: Performed By: #### T SH #### [facility] [address] [place] [address] Dr. Allen Smith MONO # 0.5 103/ul Normal 0.3-0.8 [facility] Comment on above: Performed By: #### T SH #### [facility] [address] [place] [address] Dr. Allen Smith Monocytes/100 WBC (Bld) 3.7 % Normal 1.7-12.0 [facility] Comment on above: Performed By: #### T SH #### [facility] [address] [place] [address] Dr. Allen Smith NEUT # 12.2 103/ul Critically high 1.4-6.5 [facility] Comment on above: Performed By: #### T SH #### [facility] [address] [place] [address] Dr. Allen Smith Neutrophils/100 WBC (Bld) 93.3 % Critically high 43.0-75.0 [facility] Comment on above: Performed By: #### T SH #### [facility] [address] [place] [address] Dr. Allen Smith Platelet mean volume (Bld) [Entitic vol] 10.3 fL Normal 9.5-13.5 [facility] Comment on above: Performed By: #### T SH #### [facility] [address] [place] [address] Dr. Allen Smith PLT 263 103/ul Normal 150-450 [facility] Comment on above: Performed By: #### T SH #### [facility] [address] [place] [address] Dr. Allen Smith RBC 3.97 106/ul Critically low 4.20-5.40 [facility] Comment on above: Performed By: #### T SH #### [facility] [address] [place] [address] Dr. Allen Smith WBC 13.0 103/ul Critically high 4.0-11.0 [facility] Comment on above: Performed By: #### T SH #### [facility] [address] [place] [address] Dr. Allen Smith BASO # 0.0 103/ul Normal 0.0-0.1 [facility] Comment on above: Performed By: #### N A #### [facility] [address] [place] [address] Dr. Allen Smith Basophils/100 WBC (Bld) 0.1 % Critically low 0.2-2.0 [facility] Comment on above: Performed By: #### N A #### [facility] [address] [place] [address] Dr. Allen Smith EO # 0.0 103/ul Normal 0.0-0.7 [facility] Comment on above: Performed By: #### N A #### [facility] [address] [place] [address] Dr. Allen Smith Eosinophils/100 WBC (Bld) 0.0 % Critically low 0.9-7.0 [facility] Comment on above: Performed By: #### N A #### [facility] [address] [place] [address] Dr. Allen Smith Erythrocyte distribution width (RBC) [Ratio] 13.4 % Normal 11.0-15.0 [facility] Comment on above: Performed By: #### N A #### [facility] [address] [place] [address] Dr. Allen Smith Hematocrit (Bld) [Volume fraction] 29.5 % Critically low 36.0-48.0 [facility] Comment on above: Performed By: #### N A #### [facility] [address] [place] [address] Dr. Allen Smith Hemoglobin (Bld) [Mass/Vol] 9.6 g/dL Critically low 12.0-16.0 [facility] Comment on above: Performed By: #### N A #### [facility] [address] [place] [address] Dr. Allen Smith IG # 0.04 10e3/ul Critically high 0.00-0.03 [facility] Comment on above: Performed By: #### N A #### [facility] [address] [place] [address] Dr. Allen Smith IG % 0.4 % Normal 0.0-0.5 [facility] Comment on above: Performed By: #### N A #### [facility] [address] [place] [address] Dr. Allen Smith LYMPH # 0.4 103/ul Critically low 1.2-3.8 [facility] Comment on above: Performed By: #### N A #### [facility] [address] [place] [address] Dr. Allen Smith Lymphocytes/100 WBC (Bld) 3.5 % Critically low 20.5-60.0 [facility] Comment on above: Performed By: #### N A #### [facility] [address] [place] [address] Dr. Allen Smith MANUAL DIFF REQ NO Normal [facility] Comment on above: Performed By: #### N A #### [facility] [address] [place] [address] Dr. Allen Smith MCH (RBC) [Entitic mass] 24.4 pg Critically low 26.7-34.0 [facility] Comment on above: Performed By: #### N A #### [facility] [address] [place] [address] Dr. Allen Smith MCHC (RBC) [Mass/Vol] 32.5 g/dL Normal 29.9-35.2 [facility] Comment on above: Performed By: #### N A #### [facility] [address] [place] [address] Dr. Allen Smith MCV (RBC) [Entitic vol] 74.9 fL Critically low 81.0-99.0 [facility] Comment on above: Performed By: #### N A #### [facility] [address] [place] [address] Dr. Allen Smith MONO # 0.4 103/ul Normal 0.3-0.8 [facility] Comment on above: Performed By: #### N A #### [facility] [address] [place] [address] Dr. Allen Smith Monocytes/100 WBC (Bld) 3.5 % Normal 1.7-12.0 [facility] Comment on above: Performed By: #### N A #### [facility] [address] [place] [address] Dr. Allen Smith NEUT # 10.2 103/ul Critically high 1.4-6.5 [facility] Comment on above: Performed By: #### N A #### [facility] [address] [place] [address] Dr. Allen Smith Neutrophils/100 WBC (Bld) 92.5 % Critically high 43.0-75.0 [facility] Comment on above: Performed By: #### N A #### [facility] [address] [place] [address] Dr. Allen Smith Platelet mean volume (Bld) [Entitic vol] 10.9 fL Normal 9.5-13.5 [facility] Comment on above: Performed By: #### N A #### [facility] [address] [place] [address] Dr. Allen Smith PLT 279 103/ul Normal 150-450 [facility] Comment on above: Performed By: #### N A #### [facility] [address] [place] [address] Dr. Allen Smith RBC 3.94 106/ul Critically low 4.20-5.40 [facility] Comment on above: Performed By: #### N A #### [facility] [address] [place], [place] [id number] Dr. Allen Smith WBC 11.0 103/ul Normal 4.0-11.0 [facility] Comment on above: Performed By: #### N A #### [facility] [address] [place] [address] Dr. Allen Smith ECHOCARDIO M/2D COMPLETEon 0 01-25-2023 ECHOCARDIO M/2D COMPLETE Patient: PERLA IBARRA Exam Date: 01/25/2023 : 1955 Gender:F Ordering : DOMINGA GODWIN . Admission #: [id number] Family : DR FREDDY BARRAZA M.D. Order #: [id number] CLICK HERE TO VIEW EXAM ECHOCARDIOGRAM REPORT PROCEDURE: CARDIO PULMONARY ECHOCARDIO M/2D COMP INDICATIONS: Elevated TROP, BNP, CK and CKMB COMPARISON: None. DESCRIPTION: COMPLETE ECHOCARDIOGRAM Real-time transthoracic echocardiography with 2D, M-mode, spectral and color flow Doppler performed. QUALITY: Technical quality was good. LEFT VENTRICLE: Normal chamber size. Normal left ventricular wall thickness. LV EF: Global left ventricular systolic function is difficult to assess due to arrhythmia; it appears reduced. Visually estimated ejection fraction is 35 to 40%. Cannot comment on regional wall motion abnormalities. Consider contrast study for better delineation of endocardial borders. DIASTOLIC: Not adequately assessed due to heart rhythm. ATRIAL SEPTUM: Visually appears intact. LEFT ATRIUM: Normal chamber size. RIGHT ATRIUM: Normal chamber size. RIGHT VENTRICLE: Normal chamber size. TRICUSPID VALVE: Normal mobility and thickness. No stenosis with trivial regurgitation. Doppler studies reveal mildly (35-45) elevated right sided pressures. RVSP 39 mmHg MITRAL VALVE: Normal mobility and thickness. No evidence of mitral valve stenosis. Mild mitral annular calcification. Mild to moderate mitral regurgitation. AORTIC VALVE: Normal trileaflet appearance. Normal leaflet mobility. No evidence of aortic valve stenosis. Multifocal calcifications. No aortic regurgitation. AORTIC ROOT: Normal diameter and appearance. PULMONIC VALVE: Normal thickness and mobility. No stenosis. Trivial regurgitation. PERICARDIUM: Anterior free space; trivial effusion versus fat pad. IVC: IVC is dilated (2.8 cm) with no collapse. CONCLUSION: Global left ventricular systolic function is difficult to assess but appears reduced; visually estimated ejection fraction is 35 to 40%. Cannot comment on regional wall motion abnormalities. Right ventricle is normal in size and systolic function. Mildly elevated right-sided pressures. Mild to moderate mitral regurgitation. Anterior free space; trivial effusion versus fat pad. Adult Echocardiography Procedure Report Left Ventricle LVEDD (3.7 - 5.6 cm): 4.41 cm LVESD (2.2 - 4.0 cm): 3.55 cm LVIVS thickness (0.6 - 1.2 cm): 0.98 cm LVPW thickness (0.5 - 1.0 cm): 1.04 cm LVOT Max Gradient: 6.97 mm[Hg], 5.52 mm[Hg], 4.83 mm[Hg] Peak Velocity (LVOT): 1.32 m/s, 1.17 m/s, 1.10 m/s LVOT Diameter 2.09 cm Left Ventricular Ejection Fraction: 40.01 %, 40.01 % Left Atrium LA Volume Index (2D A2C): 61.56 ml, 61.56 ml Left Atrium Systolic Dimension: 4.41 cm Mitral Valve Right Ventricle Aorta AO Root Diam: 2.87 cm Aortic Valve AoV Area (Peak Justo): 2.99 cm2, 3.20 cm2, 3.26 cm2, 2.57 cm2 Peak Velocity(Antegrade Flow): 1.41 m/s, 1.23 m/s, 1.46 m/s Peak Gradient(Antegrade Flow): 7.96 mm[Hg], 6.08 mm[Hg], 8.58 mm[Hg] Tricuspid Valve Peak Velocity (Regurgitant Flow): 2.42 m/s Pulmonic Valve Peak Velocity: 0.76 m/s, 0.62 m/s Peak Gradient: 2.31 mm[Hg], 1.52 mm[Hg] Right Atrium Right Atrium Systolic Pressure: 42.08 ml, 42.08 ml Dictated by: Robbi Henderson M.D. on 01/25/2023 at 15:35 Approved by: Robbi Henderson M.D. on 01/25/2023 at 15:39 Normal [facility] 01-25-2023 ----- ----- Attestation signed by Alex Sellers MD at 01/27/2023 8:44 AM The patient was evaluated with the resident/fellow Critical Care services were required for the patient due to critical condition: Acute hypercapnic respiratory failure requiring intubation and mechanical ventilation COPD exacerbation Parainfluenza pneumonia NSTEMI Hypervolemic, hypotonic, hyponatremia likely secondary to heart failure in the setting of ACS Acute systolic heart failure with reduced ejection fraction with EF 35-40%With echo obtained at [facility] on January 25 I personally provided direct critical care services consisting of: Intubation and MV, adjust settings based on blood gas Antibiotics and steroids Titration of vasoactive agents for goal map of 60-65 in elderly patient Heparin infusion per protocol based on anti ten-A levels Aspirin 325 mg x 1 followed by 81 mg daily Cardiology consult, may need a left and right sided heart cath Critical Care minutes were 35, which excludes time performing separately billed procedures, updating family, and teaching. ----- History Of Present Illness Perla Ibarra is a 67 y.o. female presenting with No known previous medical history according to records and family is not available over answering phones for history review. She initially presented to the [facility] on 01/24 with shortness of breath. Ultimately was found to have elevated proBNP along with elevation of troponin, lactate and hyponatremia with being positive for parainfluenza virus. She developed worsening shortness of breath and hypoxic respiratory failure and required intubation. Due to NSTEMI along with hypoxic respiratory failure she was admitted to [facility] ICU for escalation of care. She was initially treated with heparin infusion along with empiric antibiotics piperacillin/tazobactam and Levaquin and supplemental oxygen, methylprednisolone and DuoNeb. Noted she did have a failed attempt at a right IJ central line and had a right femoral central line placed along with having a Ochoa catheter placed at outside facility. EKG did not show significant ischemic changes and currently on monitor she is sinus with PACs Prior to intubation patient had following blood gas on 2 L/min nasal cannula: 7.25, 54.7, 70.6, 91.5% . EKG showing biphasic T waveWould likely ST depression and leads V2, V3, V4 Past Medical History She has no past medical history on file. Surgical History She has no past surgical history on file. Social History She has no history on file for tobacco use, alcohol use, and drug use. Active 96-ctqd-cril smoker Family History No family history on file. Allergies ErythromycinWith unknown reaction Medications No medications prior to admission. Review of Systems Unable to perform ROS: Intubated Last Recorded Vitals Visit Vitals BP 78/52 Pulse 61 Temp 35.2 ???C (95.4 ???F) Resp 16 Ht 1.676 m (5' 6 ) Wt 72.2 kg (159 lb 2.8 oz) SpO2 98% BMI 25.69 kg/m??? BSA 1.83 m??? Physical Exam Constitutional: General: She is not in acute distress. Appearance: She is not ill-appearing or diaphoretic. HENT: Head: Normocephalic. Nose: No rhinorrhea. Mouth/Throat: Mouth: Mucous membranes are dry. Comments: 7.5 ET tube, OG tube Eyes: General: No scleral icterus. Right eye: No discharge. Left eye: No discharge. Pupils: Pupils are equal, round, and reactive to light. Neck: Comments: L internal jugular ecchymoses w/o purulence or swelling Cardiovascular: Rate and Rhythm: Normal rate and regular rhythm. Pulses: Normal pulses. Heart sounds: No murmur heard. No gallop. Pulmonary: Effort: No respiratory distress. Breath sounds: No stridor. No wheezing or rales. Abdominal: General: Abdomen is flat. Genitourinary: Comments: Ochoa catheter with pale yellow urine Musculoskeletal: Right lower leg: Edema present. Left lower leg: Edema present. Skin: General: Skin is warm. Capillary Refill: Capillary refill takes less than 2 seconds. Coloration: Skin is not jaundiced. Findings: No bruising or lesion. Comments: Right inguinal femoral line without erythema surrounding Neurological: Mental Status: She is alert. Psychiatric: Comments: Unable to assess Relevant Lab Results No results found for: NA, K, CL, CO2, BUN, CREATININE, GLUCOSE, CALCIUM, ANIONGAP, EGFR, BCR From outpatient paper chart: Most recent labs from 01/24@1607: High-sensitivity troponin of 1545 with reference range for-51.3 White blood cell count 12.6 Hemoglobin 10.6 MCV 76.2 Platelets 316 89.6% neutrophils Sodium 123 Potassium 4.3 Chloride 87 Bicarbonate 23 Glucose 182 Blood urea nitrogen 12 Creatinine 1.07 ALT 65 AST 28 Total bilirubin 0.3 Total protein of 9.2 Albumin of 3.0 N- (more content not included)... Normal [facility] NAon 01-25-2023 Sodium [Moles/Vol] 128 mmol/L Critically low 136-145 Th [facility] Comment on above: Performed By: #### N A #### [facility] [address] [place] [address] Dr. Allen Smith Sodium [Moles/Vol] 122 mmol/L Critically low 136-145 Th [facility] Comment on above: Performed By: #### T SH #### [facility] [address] [place] [address] Dr. Allen Smith Sodium [Moles/Vol] 122 mmol/L Critically low 136-145 Th [facility] Comment on above: Performed By: #### N A #### [facility] [address] [place] [address] Dr. Allen Smith PROF 14(COMP METB)on 023 Albumin [Mass/Vol] 2.8 g/dL Critically low 3.4-5.0 Th [facility] Comment on above: Performed By: #### B BARREL BUILDER, CMP #### [facility] [address] [place] [address] Dr. Allen Smith Albumin/Globulin [Mass ratio] 0.5 {ratio} Normal [facility] Comment on above: Performed By: #### B BARREL BUILDER, CMP #### [facility] [address] [place] [address] Dr. Allen Smith ALP [Catalytic activity/Vol] 69 U/L Normal 46-116 [facility] Comment on above: Performed By: #### B BARREL BUILDER, CMP #### [facility] [address] [place] [address] Dr. Allen Smith ALT [Catalytic activity/Vol] 57 U/L Normal 14-59 [facility] Comment on above: Performed By: #### B BARREL BUILDER, CMP #### [facility] [address] [place] [address] Dr. Allen Smith Anion gap [Moles/Vol] 16.1 mmol/L Normal Th [facility] Comment on above: Performed By: #### B BARREL BUILDER, CMP #### [facility] [address] [place] [address] Dr. Allen Smith AST [Catalytic activity/Vol] 41 U/L Critically high 15-37 [facility] Comment on above: Performed By: #### B BARREL BUILDER, CMP #### [facility] [address] [place] [address] Dr. Allen Smith Bilirubin [Mass/Vol] 0.2 mg/dL Normal 0.2-1.0 [facility] Comment on above: Performed By: #### B BARREL BUILDER, CMP #### [facility] [address] [place] [address] Dr. Allen Smith Calcium [Mass/Vol] 8.7 mg/dL Normal 8.5-10.1 [facility] Comment on above: Performed By: #### B BARREL BUILDER, CMP #### [facility] [address] [place] [address] Dr. Allen Smith Chloride [Moles/Vol] 88 mmol/L Critically low 98-107 [facility] Comment on above: Performed By: #### B BARREL BUILDER, CMP #### [facility] [address] [place] [address] Dr. Allen Smith CO2 [Moles/Vol] 22.6 mmol/L Normal 21.0-32.0 [facility] Comment on above: Performed By: #### B BARREL BUILDER, CMP #### [facility] [address] [place] [address] Dr. Allen Smith Creatinine [Mass/Vol] 0.83 mg/dL Normal 0.55-1.02 [facility] Comment on above: Performed By: #### B BARREL BUILDER, CMP #### [facility] [address] [place] [address] Dr. Allen Smith EGFR-AF SOMALI >60 Normal >=60 [facility] Comment on above: Performed By: #### B BARREL BUILDER, CMP #### [facility] [address] [place] [address] Dr. Allen Smith EGFR-NON AF SOMALI >60 Normal >=60 [facility] Comment on above: Performed By: #### B BARREL BUILDER, CMP #### [facility] [address] [place] [address] Dr. Allen Smith Globulin (S) [Mass/Vol] 5.2 g/dL Normal [facility] Comment on above: Performed By: #### B BARREL BUILDER, CMP #### [facility] [address] [place] [address] Dr. Allen Smith Glucose [Mass/Vol] 120 mg/dL Critically high 74-106 T [facility] Comment on above: Performed By: #### B BARREL BUILDER, CMP #### [facility] [address] [place] [address] Dr. Allen Smith Potassium [Moles/Vol] 3.7 mmol/L Normal 3.5-5.1 [facility] Comment on above: Performed By: #### B BARREL BUILDER, CMP #### [facility] [address] [place] [address] Dr. Allen Smith Protein [Mass/Vol] 8.0 g/dL Normal 6.4-8.2 [facility] Comment on above: Performed By: #### B BARREL BUILDER, CMP #### [facility] [address] [place] [address] Dr. Allen Smith Sodium [Moles/Vol] 122 mmol/L Critically low 136-145 Th [facility] Comment on above: Performed By: #### B BARREL BUILDER, CMP #### [facility] [address] [place] [address] Dr. Allen Smith Urea nitrogen [Mass/Vol] 13.0 mg/dL Normal 7.0-18.0 [facility] Comment on above: Performed By: #### B BARREL BUILDER, CMP #### [facility] [address] [place] [address] Dr. Allen Smith Urea nitrogen/Creatinine [Mass ratio] 15.7 mg/mg Normal [facility] Comment on above: Performed By: #### B BARREL BUILDER, CMP #### [facility] [address] [place] [address] Dr. Allen Smith PROF CHEM 8 (BAS METB)on Anion gap [Moles/Vol] 13.3 mmol/L Normal [facility] Comment on above: Performed By: #### B MP #### [facility] [address] [place] [address] Dr. Allen Smith Calcium [Mass/Vol] 7.1 mg/dL Critically low 8.5-10.1 [facility] Comment on above: Performed By: #### B MP #### [facility] [address] [address] [address] Allen Smith Chloride [Moles/Vol] 97 mmol/L Critically low 98-107 [facility] Comment on above: Performed By: #### B MP #### [facility] [address] [address] [address] Allen Smith CO2 [Moles/Vol] 21.8 mmol/L Normal 21.0-32.0 [facility] Comment on above: Performed By: #### B MP #### [facility] [address] [place] [address] Dr. Allen Smith Creatinine [Mass/Vol] 0.84 mg/dL Normal 0.55-1.02 [facility] Comment on above: Performed By: #### B MP #### [facility] [address] [place] [address] Dr. Allen Smith EGFR-AF SOMALI >60 Normal >=60 [facility] Comment on above: Performed By: #### B MP #### [facility] [address] [place] [address] Dr. Allen Smith EGFR-NON AF SOMALI >60 Normal >=60 [facility] Comment on above: Performed By: #### B MP #### [facility] [address] [place] [address] Dr. Allen Smith Glucose [Mass/Vol] 128 mg/dL Critically high 74-106 T [facility] Comment on above: Performed By: #### B MP #### [facility] [address] [place] [address] Dr. Allen Smith Potassium [Moles/Vol] 3.1 mmol/L Critically low 3.5-5.1 [facility] Comment on above: Performed By: #### B MP #### [facility] [address] [place] [address] Dr. Allen Smith Sodium [Moles/Vol] 129 mmol/L Critically low 136-145 Th [facility] Comment on above: Performed By: #### B MP #### [facility] [address] [place] [address] Dr. Allen Smith Urea nitrogen [Mass/Vol] 17.0 mg/dL Normal 7.0-18.0 [facility] Comment on above: Performed By: #### B MP #### [facility] [address] [place] [address] Dr. Allen Smith Urea nitrogen/Creatinine [Mass ratio] 20.2 mg/mg Normal [facility] Comment on above: Performed By: #### B MP #### [facility] [address] [place] [address] Dr. Allen Smith PROTIMEon 01-25-2023 INR Coag (PPP) [Relative time] 0.98 {INR} Normal [facility] Comment on above: Performed By: #### B BARREL BUILDER, CMP #### [facility] [address] [place] [address] Dr. Allen Smith INR GUIDELINES SEE BELOW Normal [facility] Comment on above: Result Comment: VU RED INR: 2.0 - 3.0 CONDITIONS NOT LISTED BELOW 2.5 - 3.5 FOR PROSTHETIC HEART VALVE REPLACEMENT 2.5 - 3.5 RECURRENT THROMBOSIS Performed By: #### B BARREL BUILDER, CMP #### [facility] [address] [place] [address] Dr. Allen Smith PT Coag (PPP) [Time] 10.4 s Normal 9.0-11.6 [facility] Comment on above: Performed By: #### B BARREL BUILDER, CMP #### [facility] [address] [place] [address] Dr. Allen Smith PTTon 01-25-2023 aPTT Coag (Bld) [Time] 29.8 s Normal 22.3-36.2 [facility] Comment on above: Performed By: #### B BARREL BUILDER, CMP #### [facility] [address] [place] [address] Dr. Allen Smith PTT HEPARIN MONITORon 2022 aPTT Coag (Bld) [Time] 24.5 s Critically low 39.5-54.2 [facility] Comment on above: Performed By: #### T SH #### [facility] [address] [place] [address] Dr. Allen Smith TRIGLYCERIDEon 01-25-2023 Triglyceride [Mass/Vol] 55 mg/dL Normal <=150 [facility] Comment on above: Performed By: #### T SH #### [facility] [address] [address] [address] Allen Smith VENOUS BLOOD GAS WITH IONIZE D CALCIUMon 01-25-2023 Base excess Calc (BldV) [Moles/Vol] -2.4000 mmol/L Normal [facility] Comment on above: Performed By: #### L [id number] ####[facility] [id number] [place] [address] [facility] CALCIUM IONIZED (MMOL/L) IN BLOOD 1.18 mmol/L Normal 1.15-1.33 [facility] Comment on above: Performed By: #### L [id number] ####[facility] [id number] [place] [address] [place] CO2 (BldV) [Partial pressure] 50 mm[Hg] Normal 40-50 [facility] Comment on above: Performed By: #### L [id number] ####[facility] [id number] [place] [address] [place] HCO3 (Bld) [Moles/Vol] 24.6 mmol/L Normal [facility] Comment on above: Performed By: #### L [id number] ####[facility] [id number] [place] [address] [place] Oxygen (BldV) [Partial pressure] 40 mm[Hg] Normal 35-45 [facility] Comment on above: Performed By: #### L [id number] ####[facility] [id number] [place] [address] [place] OXYGEN SATURATION (%) IN VENOUS BLOOD 67.6 % Normal 65.0-75.0 [facility] Comment on above: Performed By: #### L [id number] ####[facility] [id number] [place] [address] [place] PH OF VENOUS BLOOD 7.30 Low 7.31-7.41 [facility] Comment on above: Performed By: #### L [id number] ####[facility] [id number] [place] [address] [facility] XR CHEST 1 Von 01-25-2023 XR CHEST 1 V EXAM: XR CHEST 1 V HISTORY: SHORTNESS OF BREATH COMPARISON: Chest radiograph 01/25/2023. TECHNIQUE: AP upright portable view of chest FINDINGS: Stable endotracheal tube position. Enteric tube has been advanced with distal tip not included in the xrmhv-pt-demo but at least terminates in the mid to low gastric body. Radiolucent sideport is at the gastric antrum. Similar pulmonary vascular congestion. No sizable pleural effusion or pneumothorax. Normal cardiomediastinal sella. No acute osseous or soft tissue abnormalities. IMPRESSION: 1. Enteric tube has been advanced with distal tip not included in the qexus-jn-geff but at least terminates in the mid to low gastric body. Radiolucent sideport is at the gastric antrum. 2. Stable endotracheal tube position. 3. Pulmonary vascular congestion. Electronically authenticated by: BASHIR ZAYAS Date: 2023-01-25 18:35 Normal [facility] XR CHEST 1 V EXAM: XR CHEST 1 V HISTORY: Dyspnea COMPARISON: 01/25/2023 TECHNIQUE: Single view study FINDINGS: There are scattered fibrotic changes bilaterally. The lung francis are otherwise clear. Pleural spaces are clear. The heart is upper normal in transverse diameter. Atherosclerotic change of the aorta is shown, without visible aneurysm. An endotracheal tube is seen in place, tip at mid trachea. A nasogastric/orogastric tube is seen, tip in the distal esophagus. IMPRESSION: Nasogastric/orogastric tube position as noted above. Advancing the tube approximately [address] both the tip and the sidehole within the stomach. No superimposed acute cardiopulmonary process. Electronically authenticated by: Ava HERNDON Date: 2023-01-25 17:25 Normal [facility] BLOOD GASES BTYon 01-24-2023 02 MODE NASAL CANNULA Normal [facility] Comment on above: Performed By: #### A BG #### [facility] [address] [place] [address] Dr. Allen Smith ALLENS TEST Positive Normal [facility] Comment on above: Performed By: #### A BG #### [facility] [address] [address] [address] Allen Smith Base excess Calc (Bld) [Moles/Vol] -4.1000 mmol/L Critically low -2.0-2.0 [facility] Comment on above: Performed By: #### A BG #### [facility] [address] [place] [address] Dr. Allen Smith BIPAP PRESSURE Normal [facility] Comment on above: Performed By: #### A BG #### [facility] [address] [place] [address] Dr. Allen Smith CPAP [facility] Comment on above: Performed By: #### A BG #### [facility] [address] [place] [address] Dr. Allen Smith FIO2 [facility] Comment on above: Performed By: #### A BG #### [facility] [address] [place] [address] Dr. Allen Smith HCO3 (Bld) [Moles/Vol] 21.6 mmol/L Critically low 22.0-26. 0 [facility] Comment on above: Performed By: #### A BG #### [facility] [address] [place] [address] Dr. Allen Smith LPM 3 [facility] Comment on above: Performed By: #### A BG #### [facility] [address] [place] [address] Dr. Allen Smith MINUTE VOLUME Normal [facility] Comment on above: Performed By: #### A BG #### [facility] [address] [place] [address] Dr. Allen Smith Oxygen (Bld) [Partial pressure] 112.0 mm[Hg] Critically high 80.0-100.0 [facility] Comment on above: Performed By: #### A BG #### [facility] [address] [place] [address] Dr. Allen Smith Oxygen saturation in Blood 98.5 % Normal 95.0-100.0 [facility] Comment on above: Performed By: #### A BG #### [facility] [address] [place] [address] Dr. Allen Smith PCO2 39.6 mmHg Normal 35.0-45.0 [facility] Comment on above: Performed By: #### A BG #### [facility] [address] [place] [address] Dr. Allen Smith [facility] Comment on above: Performed By: #### A BG #### [facility] [address] [place] [address] Dr. Allen Smith pH (Bld) 7.345 [pH] Critically low 7.350-7.450 [facility] Comment on above: Performed By: #### A BG #### [facility] [address] [place] [address] Dr. Allen Smith [facility] Comment on above: Performed By: #### A BG #### [facility] [address] [place] [address] [facility] Comment on above: Performed By: #### A BG #### [facility] [address] [place] [address] Dr. Allen Smith PUNCTURE SITE LR [facility] Comment on above: Performed By: #### A BG #### [facility] [address] [place] [address] Dr. Allen Smith RATE [facility] Comment on above: Performed By: #### A BG #### [facility] [address] [place] [address] Dr. Allen Smith VENT MODE [facility] Comment on above: Performed By: #### A BG #### [facility] [address] [place] [address] Dr. Allen Smith [facility] Comment on above: Performed By: #### A BG #### [facility] [address] [place] [address] Dr. Allen Smith BNPon 01-24-2023 Natriuretic peptide B (Bld) [Mass/Vol] 95068.0 pg/mL Critically high <=900.0 [facility] Comment on above: Performed By: #### N A #### [facility] [address] [address] [address] Allen Smith CARDIAC LI 3-6on 3 CK [Catalytic activity/Vol] 319 U/L Critically high -192 [facility] Comment on above: Performed By: #### B BARREL BUILDER, CMP #### [facility] [address] [place] [address] Dr. Allen Smith CK.MB [Mass/Vol] 16.41 ng/mL Critically high <=3.60 Th [facility] Comment on above: Performed By: #### B BARREL BUILDER, CMP #### [facility] [address] [place] [address] Dr. Allen Smith HSTROP 1248.2 pg/mL Critically high 4.0-51.3 [facility] Comment on above: Result Comment: CUT- OFF POINTS HAVE BEEN ESTABLISHED BASED ON THE FOURTH UNIVERSAL DEFINITIONS OF MYOCARDIAL INFARCTION. THE UPPER REFERENCE LIMIT (URL) OF TROPONIN, DEFINED THE 99TH PERCENTILE OF cTnI DISTRIBUTION IN A REFERENCE POPULATION, HAS BEEN CONFIRMED THE DECISION THRESHOLD FOR VT DIAGNOSIS. Performed By: #### B BARREL BUILDER, CMP #### [facility] [address] [place] [address] Dr. Allen Smith CARDIAC LI ADMITon 023 CK [Catalytic activity/Vol] 238 U/L Critically high 192 [facility] Comment on above: Performed By: #### C MADM #### [facility] [address] [place] [address] Dr. Allen Smith CK.MB [Mass/Vol] 12.74 ng/mL Critically high <=3.60 Th [facility] Comment on above: Performed By: #### C MADM #### [facility] [address] [place] [address] Dr. Allen Smith HSTROP 1545.9 pg/mL Critically high 4.0-51.3 [facility] Comment on above: Result Comment: CUT- OFF POINTS HAVE BEEN ESTABLISHED BASED ON THE FOURTH UNIVERSAL DEFINITIONS OF MYOCARDIAL INFARCTION. THE UPPER REFERENCE LIMIT (URL) OF TROPONIN, DEFINED THE 99TH PERCENTILE OF cTnI DISTRIBUTION IN A REFERENCE POPULATION, HAS BEEN CONFIRMED THE DECISION THRESHOLD FOR VT DIAGNOSIS. Performed By: #### C MADM #### [facility] [address] [address] [address] Allen Smith BRYAN 244 ng/mL Critically high 9-82 [facility] Comment on above: Performed By: #### C MADM #### [facility] [address] [address] [address] Allen Smith CBC AUTO DIFFon 01-24-2023 BASO # 0.0 103/ul Normal 0.0-0.1 [facility] Comment on above: Performed By: #### C BC #### [facility] [address] [address] [address] Allen Smith Basophils/100 WBC (Bld) 0.2 % Normal 0.2-2.0 [facility] Comment on above: Performed By: #### C BC #### [facility] [address] [place] [address] Dr. Allen Smith EO # 0.0 103/ul Normal 0.0-0.7 [facility] Comment on above: Performed By: #### C BC #### [facility] [address] [place] [address] Dr. Allen Smith Eosinophils/100 WBC (Bld) 0.0 % Critically low 0.9-7.0 [facility] Comment on above: Performed By: #### C BC #### [facility] [address] [place] [address] Dr. Allen Smith Erythrocyte distribution width (RBC) [Ratio] 13.4 % Normal 11.0-15.0 [facility] Comment on above: Performed By: #### C BC #### [facility] [address] [place] [address] Dr. Allen Smith Hematocrit (Bld) [Volume fraction] 33.0 % Critically low 36.0-48.0 [facility] Comment on above: Performed By: #### C BC #### [facility] [address] [place] [address] Dr. Allen Smith Hemoglobin (Bld) [Mass/Vol] 10.6 g/dL Critically low 12.0-16.0 [facility] Comment on above: Performed By: #### C BC #### [facility] [address] [place] [address] Dr. Allen Smith IG # 0.11 10e3/ul Critically high 0.00-0.03 [facility] Comment on above: Performed By: #### C BC #### [facility] [address] [place] [address] Dr. Allen Smith IG % 0.9 % Critically high 0.0-0.5 [facility] Comment on above: Performed By: #### C BC #### [facility] [address] [place] [address] Dr. Allen Smith LYMPH # 0.5 103/ul Critically low 1.2-3.8 [facility] Comment on above: Performed By: #### C BC #### [facility] [address] [place] [address] Dr. Allen Smith Lymphocytes/100 WBC (Bld) 4.2 % Critically low 20.5-60.0 [facility] Comment on above: Performed By: #### C BC #### [facility] [address] [place] [address] Dr. Allen Smith MANUAL DIFF REQ NO Normal [facility] Comment on above: Performed By: #### C BC #### [facility] [address] [place] [address] Dr. Allen Smith MCH (RBC) [Entitic mass] 24.5 pg Critically low 26.7-34.0 [facility] Comment on above: Performed By: #### C BC #### [facility] [address] [place] [address] Dr. Allen Smith MCHC (RBC) [Mass/Vol] 32.1 g/dL Normal 29.9-35.2 [facility] Comment on above: Performed By: #### C BC #### [facility] [address] [place] [address] Dr. Allen Smith MCV (RBC) [Entitic vol] 76.2 fL Critically low 81.0-99.0 [facility] Comment on above: Performed By: #### C BC #### [facility] [address] [place] [address] Dr. Allen Smith MONO # 0.7 103/ul Normal 0.3-0.8 [facility] Comment on above: Performed By: #### C BC #### [facility] [address] [place] [address] Dr. Allen Smith Monocytes/100 WBC (Bld) 5.1 % Normal 1.7-12.0 [facility] Comment on above: Performed By: #### C BC #### [facility] [address] [place] [address] Dr. Allen Smith NEUT # 11.3 103/ul Critically high 1.4-6.5 [facility] Comment on above: Performed By: #### C BC #### [facility] [address] [place] [address] Dr. Allen Smith Neutrophils/100 WBC (Bld) 89.6 % Critically high 43.0-75.0 [facility] Comment on above: Performed By: #### C BC #### [facility] [address] [place] [address] Dr. lAlen Smith Platelet mean volume (Bld) [Entitic vol] 10.0 fL Normal 9.5-13.5 [facility] Comment on above: Performed By: #### C BC #### [facility] [address] [place] [address] Dr. Allen Smith PLT 316 103/ul Normal 150-450 [facility] Comment on above: Performed By: #### C BC #### [facility] [address] [place] [address] Dr. Allen Smith RBC 4.33 106/ul Normal 4.20-5.40 [facility] Comment on above: Performed By: #### C BC #### [facility] [address] [place] [address] Dr. Allen Smith WBC 12.6 103/ul Critically high 4.0-11.0 [facility] Comment on above: Performed By: #### C BC #### [facility] [address] [place] [address] NECK ST W CONon CT NECK ST W CON EXAMINATION: CT NECK ST W CON HISTORY: SHORTNESS OF BREATH , cough, phlegm COMPARISON: No relevant comparison available. TECHNIQUE: Axial, Coronal, and Sagittal CT images created with IV contrast. Dose reduction techniques were achieved by using automated exposure control and/or adjustment of mA and/or kV according to patient size and/or use of iterative reconstruction technique. FINDINGS: NASOPHARYNX: No asymmetry of the fossae of Rosenmuller and torus tubarius. ORAL CAVITY: No visible mass. OROPHARYNX: No asymmetry of the facial and lingual tonsils. HYPOPHARYNX: No mass or other visible lesion. LARYNX: No mass or asymmetry of the vocal cords. SINUSES: No significant fluid or mucosal thickening. NECK GLADS: No visible abnormality of the parotid, submandibular, and thyroid glands. LYMPH NODES: No pathological-appearing or enlarged lymph nodes. VASCULATURE: No suspicious abnormality. BONES: Slight reversal of normal lordotic curvature of the mid and lower cervical spine. Multilevel mild-moderate degenerative disc disease and mild degenerative facet arthropathy. OTHER: No additional imaging findings. IMPRESSION: 1. Degenerative changes of the cervical spine. 2. No suspicious findings to account for patient's symptoms. Electronically authenticated by: FREDDY BARRAZA Date: 2023-01-24 14:13 Normal [facility] CULTURE BLOODon 01-24-2023 Microscopic examination of blood, culture Culture Observations: NO GROWTH AT 5 DAYS. Normal [facility] Comment on above: Performed By: #### B BARREL BUILDER, CMP #### [facility] [address] [place] [address] Dr. Allen Smith Microscopic examination of blood, culture Culture Observations: NO GROWTH AT 5 DAYS. Normal [facility] Comment on above: Performed By: #### B BARREL BUILDER, CMP #### [facility] [address] [address] [address] Allen Smith GROUP A STREP CULTUREon 01-01 S. pyogenes Ag (Unsp spec) Culture Observations: NEGATIVE FOR GROUP A STREPTOCOCCUS. Normal [facility] Comment on above: Performed By: #### N A #### [facility] [address] [place] [address] Dr. Allen Smith LACTATE/LACTIC ACIDon 2022 Lactate [Moles/Vol] 3.1 mmol/L Critically high 0.4-2.0 [facility] Comment on above: Performed By: #### A BG #### [facility] [address] [place] [address] Dr. Allen Smith Lactate [Moles/Vol] 3.6 mmol/L Critically high 0.4-2.0 [facility] Comment on above: Performed By: #### T SH #### [facility] [address] [place] [address] Dr. Allen Smith NAon 01-24-2023 Sodium [Moles/Vol] 122 mmol/L Critically low 136-145 [facility] Comment on above: Performed By: #### N A #### [facility] [address] [place] [address] Dr. Allen Smith PROF 14(COMP METB)on 023 Albumin [Mass/Vol] 3.0 g/dL Critically low 3.4-5.0 [facility] Comment on above: Performed By: #### N A #### [facility] [address] [place] [address] Dr. Allen Smith Albumin/Globulin [Mass ratio] 0.5 {ratio} Normal [facility] Comment on above: Performed By: #### N A #### [facility] [address] [place] [address] Dr. Allen Smith ALP [Catalytic activity/Vol] 88 U/L Normal 46-116 [facility] Comment on above: Performed By: #### N A #### [facility] [address] [place] [address] Dr. Allen Smith ALT [Catalytic activity/Vol] 65 U/L Critically high 14-59 [facility] Comment on above: Performed By: #### N A #### [facility] [address] [place] [address] Dr. Allen Smith Anion gap [Moles/Vol] 17.8 mmol/L Normal [facility] Comment on above: Performed By: #### N A #### [facility] [address] [address] [address] Allen Smith AST [Catalytic activity/Vol] 28 U/L Normal 15-37 [facility] Comment on above: Performed By: #### N A #### [facility] [address] [address] [address] Allen [place] Bilirubin [Mass/Vol] 0.3 mg/dL Normal 0.2-1.0 [facility] Comment on above: Performed By: #### N A #### [facility] [address] [address] [address] Allen Smith Calcium [Mass/Vol] 9.5 mg/dL Normal 8.5-10.1 [facility] Comment on above: Performed By: #### N A #### [facility] [address] [address] [address] Allen Smith Chloride [Moles/Vol] 87 mmol/L Critically low 98-107 [facility] Comment on above: Performed By: #### N A #### [facility] [address] [address] [address] Allen Smith CO2 [Moles/Vol] 22.5 mmol/L Normal 21.0-32.0 [facility] Comment on above: Performed By: #### N A #### [facility] [address] [address] [address] Allen Smith Creatinine [Mass/Vol] 1.07 mg/dL Critically high 0.55-1.02 [facility] Comment on above: Performed By: #### N A #### [facility] [address] [address] [address] Allen Smith EGFR-AF SOMALI >60 Normal >=60 [facility] Comment on above: Performed By: #### N A #### [facility] [address] [address] [address] Allen Smith EGFR-NON AF SOMALI 51 mL/min/1.73m2 Critically low >=60 [facility] Comment on above: Performed By: #### N A #### [facility] [address] [address] [address] Allen Smith Globulin (S) [Mass/Vol] 6.2 g/dL Normal [facility] Comment on above: Performed By: #### N A #### [facility] [address] [place] [address] Dr. Allen [place] Glucose [Mass/Vol] 182 mg/dL Critically high 74-106 [facility] Comment on above: Performed By: #### N A #### [facility] [address] [place] [address] Dr. Allen Smith Potassium [Moles/Vol] 4.3 mmol/L Normal 3.5-5.1 [facility] Comment on above: Performed By: #### N A #### [facility] [address] [place] [address] Dr. Allen Smith Protein [Mass/Vol] 9.2 g/dL Critically high 6.4-8.2 [facility] Comment on above: Performed By: #### N A #### [facility] [address] [place] [address] Dr. Allen Smith Sodium [Moles/Vol] 123 mmol/L Critically low 136-145 [facility] Comment on above: Performed By: #### N A #### [facility] [address] [place] [address] Dr. Allen Smith Urea nitrogen [Mass/Vol] 12.0 mg/dL Normal 7.0-18.0 [facility] Comment on above: Performed By: #### N A #### [facility] [address] [place] [address] Dr. Allen Smith Urea nitrogen/Creatinine [Mass ratio] 11.2 mg/mg Normal [facility] Comment on above: Performed By: #### N A #### [facility] [address] [place] [address] Dr. Allen Smith PROTIMEon 01-24-2023 INR Coag (PPP) [Relative time] 0.98 {INR} Normal [facility] Comment on above: Performed By: #### T SH #### [facility] [address] [place] [address] Dr. Allen Smith INR GUIDELINES SEE BELOW Normal [facility] Comment on above: Result Comment: VU RED INR: 2.0 - 3.0 CONDITIONS NOT LISTED BELOW 2.5 - 3.5 FOR PROSTHETIC HEART VALVE REPLACEMENT 2.5 - 3.5 RECURRENT THROMBOSIS Performed By: #### T SH #### [facility] [address] [place] [address] Dr. Allne Smith PT Coag (PPP) [Time] 10.4 s Normal 9.0-11.6 [facility] Comment on above: Performed By: #### T SH #### [facility] [address] [place] [address] Dr. Allen Smith PTTon 01-24-2023 aPTT Coag (Bld) [Time] 29.5 s Normal 22.3-36.2 [facility] Comment on above: Performed By: #### T SH #### [facility] [address] [place] [address] Dr. Allen Smith RESPIRATORY PANEL PLUSon Adenovirus Not detected Normal NOT DETECTED [facility] Comment on above: Performed By: #### N A #### [facility] [address] [place] [address] Dr. Allen Thayer Parapertusis Not detected Normal NOT DETECTED [facility] Comment on above: Performed By: #### N A #### [facility] [address] [place] [address] Dr. Allen Thayer Pertussis Not detected Normal NOT DETECTED [facility] Comment on above: Performed By: #### N A #### [facility] [address] [place] [address] Dr. Allen Smith Chlamydia Pneumoniae Not detected Normal NOT DETECTED [facility] Comment on above: Performed By: #### N A #### [facility] [address] [place] [address] Dr. Allen Smith Coronavirus 229E Not detected Normal NOT DETECTED [facility] Comment on above: Performed By: #### N A #### [facility] [address] [place] [address] Dr. Allen [place] Coronavirus HKU1 Not detected Normal NOT DETECTED [facility] Comment on above: Performed By: #### N A #### [facility] [address] [place] [address] Dr. Allen Smith Coronavirus NL63 Not detected Normal NOT DETECTED [facility] Comment on above: Performed By: #### N A #### [facility] [address] [place] [address] Dr. Allen Smith Coronavirus OC43 Not detected Normal NOT DETECTED [facility] Comment on above: Performed By: #### N A #### [facility] [address] [place] [address] Dr. Allen Smith Influenza A H1 Not detected Normal NOT DETECTED [facility] Comment on above: Performed By: #### N A #### [facility] [address] [place] [address] Dr. Allen Smith Influenza A H1 2009 Not detected Normal NOT DETECTED [facility] Comment on above: Performed By: #### N A #### [facility] [address] [place] [address] Dr. Allen [place] Influenza A H3 Not detected Normal NOT DETECTED [facility] Comment on above: Performed By: #### N A #### [facility] [address] [place] [address] Dr. Allen Smith Influenza B Not detected Normal NOT DETECTED [facility] Comment on above: Performed By: #### N A #### [facility] [address] [place] [address] Dr. Allen Smith Metapneumovirus Not detected Normal NOT DETECTED [facility] Comment on above: Performed By: #### N A #### [facility] [address] [place] [address] Dr. Allen Smith Mycoplas. Pneumoniae Not detected Normal NOT DETECTED [facility] Comment on above: Performed By: #### N A #### [facility] [address] [place] [address] Dr. Allen Smith Parainfluenza 1 Not detected Normal NOT DETECTED [facility] Comment on above: Performed By: #### N A #### [facility] [address] [place] [address] Dr. Allen Smith Parainfluenza 2 Not detected Normal NOT DETECTED [facility] Comment on above: Performed By: #### N A #### [facility] [address] [place] [address] Dr. Allen Smith Parainfluenza 3 Detected Abnormal NOT DETECTED [facility] Comment on above: Performed By: #### N A #### [facility] [address] [place] [address] Dr. Allen Smith Parainfluenza 4 Not detected Normal NOT DETECTED [facility] Comment on above: Performed By: #### N A #### [facility] [address] [place] [address] Dr. Allen Smith Rhino/Enterovirus Not detected Normal NOT DETECTED [facility] Comment on above: Performed By: #### N A #### [facility] [address] [place] [address] Dr. Allen Smith RP2 Header 1 RESPIRATORY PANEL: VIRUSES Normal [facility] Comment on above: Performed By: #### N A #### [facility] [address] [place] [address] Dr. Allen Smith RP2 Header 2 RESPIRATORY PANEL: BACTERIA Normal [facility] Comment on above: Performed By: #### N A #### [facility] [address] [place] [address] Dr. Allen Smith RSV Not detected Normal NOT DETECTED [facility] Comment on above: Performed By: #### N A #### [facility] [address] [place] [address] Dr. Allen Smith SARS-CoV-2 (COVID-19) RNA BJORN+probe Ql (Unsp spec) Not detected Normal NOT DETECTED [facility] Comment on above: Performed By: #### N A #### [facility] [address] [place] [address] Dr. Allen Smith STREPT SCREENon 01-24-2023 STREP SCREEN A Negative Normal NEGATIVE [facility] Comment on above: Performed By: #### N A #### [facility] [address] [place], [place] [address] Dr. Allen Smith TSHon 01-24-2023 TSH 0.471 uIU/mL Normal 0.358-3.740 [facility] Comment on above: Performed By: #### T #### [facility] [address] [place] [address] Dr. Allen Smith XR CHEST 1 Von 01-24-2023 XR CHEST 1 V EXAM: XR CHEST 1 V HISTORY: SHORTNESS OF BREATH COMPARISON: None. TECHNIQUE: Single upright portable view FINDINGS: The costophrenic angles are blunted. Hazy density somewhat obscures the right costophrenic angle. No focal consolidation. No pneumothorax. The cardiomediastinal silhouette is within normal limits. No acute finding in the bones. IMPRESSION: Blunted costophrenic angles, with somewhat obscured right costophrenic angle may be due to small pleural effusions, and/or hyperinflation in the setting of COPD Electronically authenticated by: OLIVIA JAVED Date: 2023-01-24 12:53 Normal [facility] Vital Signs Date Time Vital Sign Value Performing Clinician Faci lity 10-05-2023 10:36-0500 Body temperature 97.9 [degF] [facility] Nedra Perez Work Phone: [facility] 10-05-2023 10:36-0500 Body weight 63.59 kg [facility] Nedra Perez Work Phone: [facility] 10-05-2023 10:36-0500 Diastolic blood pressure 53 mm[Hg] [facility] Nedra Perez Work Phone: [facility] 10-05-2023 10:36-0500 Heart rate 66 /min [facility] Nedra Perez Work Phone: [facility] 10-05-2023 10:36-0500 Inhaled oxygen flow rate 2 L/min [facility] Nedra Perez Work Phone: [facility] 10-05-2023 10:36-0500 Respiratory rate 20 /min [facility] Nedra Perez Work Phone: [facility] 10-05-2023 10:36-0500 SaO2% (BldA) [Mass fraction] 100 % [employer] Nedra Sanchezs Work Phone: [facility] 10-05-2023 10:36-0500 Systolic blood pressure 111 mm[Hg] [employer] Nedra Sanchezs Work Phone: [facility] 09-12-2023 12:52-0500 Body temperature 97.3 [degF] [employer] Nedra Sanchezs Work Phone: [facility] 09-12-2023 12:52-0500 Body weight 65.31 kg [employer] Nedra Sanchezs Work Phone: [facility] 09-12-2023 12:52-0500 Diastolic blood pressure 68 mm[Hg] [employer] Nedra Sanchezs Work Phone: [facility] 09-12-2023 12:52-0500 Heart rate 83 /min [employer] Nedra Sanchezs Work Phone: [facility] 09-12-2023 12:52-0500 Respiratory rate 16 /min [employer] Nedra Sanchezs Work Phone: [facility] 09-12-2023 12:52-0500 SaO2% (BldA) [Mass fraction] 100 % [employer] Nedra Perez Work Phone: [facility] 09-12-2023 12:52-0500 Systolic blood pressure 138 mm[Hg] [employer] Nedra Sanchezs Work Phone: [facility] 08-28-2023 13:02-0500 Body temperature 98.3 [degF] [employer] Nedra Sanchezs Work Phone: [facility] 08-28-2023 13:02-0500 Body weight 66.31 kg [employer] Nedra Sanchezs Work Phone: [facility] 08-28-2023 13:02-0500 Diastolic blood pressure 69 mm[Hg] [employer] Nedra Sanchezs Work Phone: [facility] 08-28-2023 13:02-0500 Heart rate 90 /min [employer] Nedra Perez Work Phone: [facility] 08-28-2023 13:02-0500 Inhaled oxygen flow rate 2 L/min [employer] Nedra Perez Work Phone: [facility] 08-28-2023 13:02-0500 Respiratory rate 20 /min [employer] Nedra Perez Work Phone: [facility] 08-28-2023 13:02-0500 SaO2% (BldA) [Mass fraction] 100 % [employer] Nedra Perez Work Phone: [facility] 08-28-2023 13:02-0500 Systolic blood pressure 134 mm[Hg] [employer] Nedra Perez Work Phone: [facility] 08-22-2023 14:30-0500 Diastolic blood pressure 61 mm[Hg] [employer] Nedra Perez Work Phone: [facility] 08-22-2023 14:30-0500 Heart rate 80 /min [employer] Nedra Perez Work Phone: [facility] 08-22-2023 14:30-0500 Inhaled oxygen flow rate 2 L/min [employer] Nedra Perez Work Phone: [facility] 08-22-2023 14:30-0500 Respiratory rate 20 /min [employer] Nedra Perez Work Phone: [facility] 08-22-2023 14:30-0500 SaO2% (BldA) [Mass fraction] 100 % [employer] Nedra Perez Work Phone: [facility] 08-22-2023 14:30-0500 Systolic blood pressure 103 mm[Hg] [employer] Nedra Sanchezs Work Phone: [facility] 08-22-2023 11:55-0500 Body height 165.1 cm [employer] Nedra Perez Work Phone: [facility] 08-22-2023 11:55-0500 Body temperature 97.6 [degF] [employer] Nedra Perez Work Phone: [facility] 08-22-2023 11:55-0500 Body weight 63.5 kg [employer] Nedra Perez Work Phone: [facility] 08-11-2023 15:18-0500 Diastolic blood pressure 50 mm[Hg] [employer] Nedra Perez Work Phone: [facility] 08-11-2023 15:18-0500 Heart rate 68 /min [employer] Nedra Perez Work Phone: [facility] 08-11-2023 15:18-0500 Respiratory rate 16 /min [employer] Nedra Perez Work Phone: [facility] 08-11-2023 15:18-0500 SaO2% (BldA) [Mass fraction] 100 % [employer] Nedra Perez Work Phone: [facility] 08-11-2023 15:18-0500 Systolic blood pressure 105 mm[Hg] [employer] Nedra Perez Work Phone: [facility] 08-11-2023 14:13-0500 Inhaled oxygen flow rate 2 L/min [employer] Nedra Perez Work Phone: [facility] 08-11-2023 14:00-0500 Body temperature 98 [degF] [employer] Nedra Perez Work Phone: [facility] 07-31-2023 13:44-0400 Body temperature 97.7 [degF] [employer] Nedra Perez Work Phone: [facility] 07-31-2023 13:44-0400 Body weight 64.77 kg [employer] Nedra Perez Work Phone: [facility] 07-31-2023 13:44-0400 Diastolic blood pressure 68 mm[Hg] [employer] Nedra Perez Work Phone: [facility] 07-31-2023 13:44-0400 Heart rate 83 /min [employer] Nedra Perez Work Phone: [facility] 07-31-2023 13:44-0400 Respiratory rate 20 /min [employer] Nedra Perez Work Phone: [facility] 07-31-2023 13:44-0400 SaO2% (BldA) [Mass fraction] 98 % [employer] Nedra Perez Work Phone: [facility] 07-31-2023 13:44-0400 Systolic blood pressure 110 mm[Hg] [employer] Nedra Perez Work Phone: [facility] 06-23-2023 13:38-0400 Body temperature 97.5 [degF] [employer] Nedra Perez Work Phone: [facility] 06-23-2023 13:38-0400 Body weight 64.95 kg HYDRAULIC PRESS OPERATOR Nedra Perez Work Phone: [facility] 06-23-2023 13:38-0400 Diastolic blood pressure 71 mm[Hg] HYDRAULIC PRESS OPERATOR Nedra Perez Work Phone: [facility] 06-23-2023 13:38-0400 Heart rate 87 /min HYDRAULIC PRESS OPERATOR Nedra Perez Work Phone: [facility] 06-23-2023 13:38-0400 Inhaled oxygen flow rate 2 L/min HYDRAULIC PRESS OPERATOR Nedra Perez Work Phone: [facility] 06-23-2023 13:38-0400 Respiratory rate 20 /min HYDRAULIC PRESS OPERATOR Nedra Perez Work Phone: [facility] 06-23-2023 13:38-0400 SaO2% (BldA) [Mass fraction] 100 % HYDRAULIC PRESS OPERATOR Nedra Perez Work Phone: [facility] 06-23-2023 13:38-0400 Systolic blood pressure 124 mm[Hg] HYDRAULIC PRESS OPERATOR Nedra Perez Work Phone: [facility] 06-23-2023 13:21-0400 Body height 165.1 cm HYDRAULIC PRESS OPERATOR Nedra Sanchezs Work Phone: [facility] Encounters Encounter Date Encounter Type Care Provider Facility Start: 10-12-2023 End: 10-12-2023 ambulatory [facility] Start: 10-05-2023 End: 10-05-2023 ambulatory HYDRAULIC PRESS OPERATOR Nedra Sanchezs Work Phone: [facility] Work Phone: Start: 10-05-2023 End: 10-05-2023 Registered Recurring HYDRAULIC PRESS OPERATOR Nedra Sanchezs Work Phone: [facility] Work Phone: Start: 10-05-2023 ambulatory Nedra Perez Facility:[facility] Start: 10-05-2023 End: 10-05-2023 ambulatory HYDRAULIC PRESS OPERATOR Nedra Sanchezs Work Phone: [facility] Work Phone: Start: 10-05-2023 End: 10-05-2023 Registered Recurring HYDRAULIC PRESS OPERATOR Nedra Sanchezs Work Phone: [facility] Work Phone: Start: 09-12-2023 End: 09-12-2023 ambulatory HYDRAULIC PRESS OPERATOR Nedra Sanchezs Work Phone: [facility] Work Phone: Start: 09-12-2023 End: 09-12-2023 Registered Recurring HYDRAULIC PRESS OPERATOR Nedra Sanchezs Work Phone: [facility] Work Phone: Start: 08-28-2023 End: 08-28-2023 ambulatory HYDRAULIC PRESS OPERATOR Nedra Sanchezs Work Phone: [facility] Work Phone: Start: 08-28-2023 End: 08-28-2023 Registered Recurring HYDRAULIC PRESS OPERATOR Nedra Kuns Work Phone: [facility] Work Phone: Start: 08-22-2023 End: 08-22-2023 ambulatory Nedra Perez Facility:[facility] Start: 08-22-2023 End: 08-22-2023 Admission to same day surgery center HYDRAULIC PRESS OPERATOR Nedra Perez Work Phone: [facility] [place] Work Phone: Start: 08-22-2023 End: 08-22-2023 ambulatory HYDRAULIC PRESS OPERATOR Nedra Sanchezs Work Phone: [facility] Work Phone: Start: 08-11-2023 Registered Recurring HYDRAULIC PRESS OPERATOR Nedra Perez Work Phone: [facility] Work Phone: Start: 07-31-2023 End: 07-31-2023 ambulatory HYDRAULIC PRESS OPERATOR Nedra Perez Work Phone: [facility] Work Phone: Start: 07-31-2023 End: 07-31-2023 Registered Recurring HYDRAULIC PRESS OPERATOR Nedra Perez Work Phone: [facility] Work Phone: Start: 07-26-2023 End: 07-26-2023 ambulatory MADDIE ANN [facility] Start: 06-23-2023 End: 06-23-2023 ambulatory HYDRAULIC PRESS OPERATOR Nedra Perez Work Phone: [facility] Work Phone: Start: 06-23-2023 End: 06-23-2023 Registered Recurring HYDRAULIC PRESS OPERATOR Nedra Perez Work Phone: [facility] Work Phone: Start: 05-18-2023 End: 05-18-2023 ambulatory ANTONIO DELGADO [facility] Start: 04-27-2023 ambulatory [place] Facility:[facility] [place] Start: 04-21-2023 End: 04-21-[address] [facility] Start: 03-21-2023 End: 03-21-2023 ambulatory [facility] Start: 02-28-2023 End: 03-01-[address] DOCTOR MÁRQUEZ Facility:[facility] Start: 02-09-2023 ambulatory [place] Facility:Malou Nguyen Manuel Start: 02-07-2023 End: 02-08-[address] DOCTOR MÁQRUEZ Facility:[facility] Start: 02-07-2023 End: 02-07-2023 ambulatory [facility] Start: 01-30-2023 Evaluation and management of inpatient [facility] Start: 01-30-2023 Evaluation and management of inpatient [place] ALI [facility] Start: 01-28-2023 Evaluation and management of inpatient ALEX SAFI [facility] Start: 01-28-2023 Evaluation and management of inpatient [facility] Start: 01-26-2023 Evaluation and management of inpatient [place] ALI [facility] Start: 01-26-2023 Evaluation and management of inpatient EHAB [facility] Start: 01-25-2023 Evaluation and management of inpatient [place] ALI [facility] Start: 01-25-2023 End: 01-31-2023 Evaluation and management of inpatient REFERRED SELF [facility] Start: 01-24-2023 End: 01-25-2023 Evaluation and management of inpatient DR FREDDY BARRAZA Facility:[facility] Procedures Date Procedure Procedure Detail Performing Clinician Start: 09-12-2023 Urine culture HYDRAULIC PRESS OPERATOR Nedra Perez Work Phone: Start: 08-22-2023 Ultrasonic guidance for needle biopsy HYDRAULIC PRESS OPERATOR Nedra Perez Work Phone: Start: 07-31-2023 Urine culture HYDRAULIC PRESS OPERATOR Nedra Perez Work Phone: Start: 01-25-2023 Insertion of Infusio n Device into Right Femoral Vein, Percutaneous Approach DR FREDDY BARRAZA Start: 01-25-2023 Insertion of Endotra cheal Airway into Trachea, Via Natural or Artificial Opening DR FREDDY BARRAZA Plan of Treatment Date Care Activity Detail Author Start: 10-05-2023 [facility] Start: 10-04-2023 Adrenocorticotropic hormone measurement [facility] Start: 09-14-2023 [facility] Start: 09-14-2023 [facility] Start: 08-22-2023 [facility] Start: 08-22-2023 Ultrasonic guidance for needle biopsy [facility] Start: 08-11-2023 [facility] Start: 08-04-2023 [facility] Start: 07-31-2023 [facility] Adrenocorticotropic hormone measurement [facility] Bilirubin measurement, urine [facility] Color of Urine [facility] Comprehensive metabo lic 1999 panel - Serum or Plasma [facility] Comprehensive metabo lic 1999 panel - Serum or Plasma [facility] Comprehensive metabo lic 1999 panel - Serum or Plasma [facility] Comprehensive metabo lic 1999 panel - Serum or Plasma [facility] CT Abdomen and Pelvi s W contrast IV [facility] CT guided biopsy [facility] Detection of hemoglobin [facility] EKG 12 channel panel [facility] Erythropoietin (EPO) [Units/volume] in Serum or Plasma [facility] Glucose [Mass/volume ] in Urine by Test strip [facility] Measurement of keton es in urine using dipstick [facility] Patient Education [facility] Kidn ey Biopsy [facility] Work Phone: Protein measurement, urine [facility] Urinalysis, specific gravity measurement [facility] Urine dipstick for nitrite F [facility] Urine dipstick for s pecific gravity [facility] Urine pH test [facility] Urobilinogen concent ration, test strip measurement [facility] Payers Date Payer Category Payer Self-pay 2019 Unknown [id number] 1960 Medicare [id number] 1960 Unknown [id number] 1955 Unknown [id number] 1954 Unknown [id number] [id number] [id number] 1954 Unknown [id number] [id number] [id number] 1954 Unknown [id number] [id number] 1954 Unknown [id number] 2.16.84 [id number] Unknown [id number] 2.16.8 [id number] Unknown [id number] [id number] Social History Date Type Detail Facility Start: 06-23-2023 End: 08-28-2023 Tobacco smoking status NHIS Ex-smoker (finding) [facility] Start: 1955 Sex Assigned At Female F [facility] Goals Date Patient Goal Desired Activity /State Clinical Notes 01-25-2023 to 10-12-2023 Note Date & Type Note Facility 10-12-2023 Note Patient here for 6 m o follow up CAD, chronic systolic heart failure, and hypertension. She denies chest pain, palpitations, and lightheadedness. Taking a new chemo pill now for renal cell carcinoma. Review of Systems Constitutional: Positive for malaise/fatigue. Cardiovascular: Positive for dyspnea on exertion. All other systems reviewed and are negative. [facility] 10-12-2023 Note Cardiovascular Medic [facility] SUBJECTIVE Chief Complaint Patient presents with Congestive Heart Failure Coronary Artery Disease Hypertension Perla Ibarra is a 68 y.o. female here for follow-up. She is accompanied with her partner Angela. HPI PMHx: nonischemic cardiomyopathy, heart failure improved ejection fraction with EF 45% (01/27/2023) to 55-60% (05/09/2023), mild non-obstructive coronary artery disease on angiography (01/26/2023), tobacco use, probable COPD, and renal cell carcinoma She has been doing well from a cardiac standpoint since last seen. She started chemo pill for her kidney cancer. Bp at home typically running 120s/60-70s. Her VICTORIA is stable. Denies CP, orthopnea, PND, LE edema, palpitations. Patient Active Problem List Diagnosis Acute coronary syndrome (CMS/HCC) Acute respiratory failure with hypoxia and hypercapnia (CMS/HCC) Parainfluenza infection Acute systolic heart failure (CMS/HCC) COPD (chronic obstructive pulmonary disease) (CMS/HCC) Myocardial infarction (CMS/HCC) Renal cell carcinoma of right kidney (CMS/HCC) Renal mass Past Medical History: Diagnosis Date CHF (congestive heart failure) (CMS/HCC) COPD (chronic obstructive pulmonary disease) (CMS/HCC) NSTEMI (non-ST elevated myocardial infarction) (CMS/HCC) PNA (pneumonia) Tuberculosis Family History Problem Relation Name Age of Onset Tuberculosis Mother Heart attack Brother Heart failure Maternal Grandmother Heart attack Maternal Grandfather Social History Tobacco Use Smoking status: Former Types: Cigarettes Quit date: 01/26/2023 Years since quittin.7 Smokeless tobacco: Never Substance Use Topics Alcohol use: Never Drug use: Never Allergies Allergen Reactions Erythromycin Unknown Per report from roderick DE LA O Constitutional: Positive for malaise/fatigue. Cardiovascular: Positive for dyspnea on exertion. All other systems reviewed and are negative. OBJECTIVE Visit Vitals BP 142/68 (BP Location: Right arm, Patient Position: Sitting) Pulse 72 Ht 1.651 m (5' 5 ) Wt 64.9 kg (143 lb) SpO2 99% BMI 23.80 kg/m??? Smoking Status Former BSA 1.73 m??? Medications: Current Outpatient Medications: albuterol 90 mcg/actuation inhaler, every 4 (four) hours., Disp: , Rfl: axitinib (Inlyta) 5 mg chemo tablet, Take by mouth 2 times daily, Disp: , Rfl: escitalopram (Lexapro) 5 mg tablet, Take 5 mg by mouth in the morning., Disp: , Rfl: famotidine (Pepcid) 20 mg tablet, take 1 tablet by mouth every evening for HEARTBURN, Disp: , Rfl: loratadine (Claritin) 10 mg tablet, Take 10 mg by mouth if needed each day., Disp: , Rfl: pantoprazole (ProtoNix) 40 mg EC tablet, Take 40 mg by mouth in the morning., Disp: , Rfl: pembrolizumab (Keytruda) 25 mg/mL chemo injection, Infuse into a venous catheter 1 (one) time., Disp: , Rfl: tiotropium-olodateroL (Stiolto Respimat) 2.5-2.5 mcg/actuation mist inhaler, 1 (one) time each day at the same time., Disp: , Rfl: aspirin 81 mg EC tablet, Take 1 tablet (81 mg) by mouth in the morning., Disp: 90 tablet, Rfl: 3 atorvastatin (Lipitor) 20 mg tablet, Take 1 tablet (20 mg) by mouth at bedtime., Disp: 90 tablet, Rfl: 3 metoprolol succinate XL (Toprol-XL) 25 mg 24 hr tablet, Take 0.5 tablets (12.5 mg) by mouth once daily as directed. Do not crush or chew., Disp: 45 tablet, Rfl: 3 sacubitril-valsartan (Entresto) 24-26 mg tablet, Take 1 tablet by mouth in the morning and at bedtime., Disp: 180 tablet, Rfl: 3 spironolactone (Aldactone) 25 mg tablet, Take 0.5 tablets (12.5 mg) by mouth once daily as directed., Disp: 45 tablet, Rfl: 3 Physical Exam Vitals reviewed. Constitutional: Appearance: Normal appearance. She is normal weight. HENT: Head: Normocephalic and atraumatic. Right Ear: External ear normal. Left Ear: External ear normal. Eyes: Extraocular Movements: Extraocular movements intact. Conjunctiva/sclera: Conjunctivae normal. Pupils: Pupils are equal, round, and reactive to light. Neck: Vascular: No carotid bruit. Cardiovascular: Rate and Rhythm: Normal rate and regular rhythm. Pulses: Normal pulses. Heart sounds: Normal heart sounds. Pulmonary: Effort: Pulmonary effort is normal. Breath sounds: Normal breath sounds. Comments: Wearing O2 via NC Abdominal: General: Bowel sounds are normal. Palpations: Abdomen is soft. Musculoskeletal: Cervical back: Neck supple. Right lower leg: No edema. Left lower leg: No edema. Skin: General: Skin is warm and dry. Neurological: General: No focal deficit present. Mental Status: She is alert and oriented to person, place, and time. Psychiatric: Mood and Affect: Mood normal. Behavior: Behavior normal. Thought Content: Thought content normal. Judgment: Judgment normal. Labs: No results displayed because visit has over 200 results. Lab Results Component Value Date BNP 479 (H) 01/30/2023 10/04/2023 Gl (more content not included)... 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 Right renal mass, 66w6t71 cm with extension into right renal vein and inferior vena cava.. Has seen Dr. Ann in [place] for consideration of nephrectomy. Determined not a very good surgical candidate, she has very extensive disease and overall generally poor health. No definitive retroperitoneal lymphadenopathy. Extensive reticulonodular opacities at the lung base not well assessed possibly sequela of infectious or inflammatory process. Superimposed small pulmonary metastasis is not excluded. Will start palliative treatment and consider for debulking with this agent and reconsider ablative, surgical approaches down the line. Although we were not able to discuss it at the visit as we had not yet had finalpathology, by the time Dr. Chavez wrote the note on 09/05/2023, it was clear that she had a clear-cell renal neoplasm. We will offer her palliative approach with axitinib and pembrolizumab. 09/12/23- We reviewed pathology again briefly and discussed treatment plan for first line therapy, which will include Axitinib and Pembrolizumab. We reviewed side effects, efficacy, and answered her questions appropriately. She is aware the Axitinib will come from a specialty pharmacy and she should expect a call toset up delivery. She will work with Alberto in pharmacy to get this, and will have education provided again prior to starting this. Baseline EKG done 08/31/23 Plan Axitinib 5mg po BID to start once received. Will initiate Pembrolizumab 200mg every 3 weeks on 09/14/23. Iron deficiency anemia d/t chronic blood loss. Also with malabsorption She received IV Injectafer x 2 early Aug remains anemic, will repeat iron studies and replete with additional Injectafer if needed. Follow Up Instructions: pembro soon, plan 200mg every 3wks axitinib 5mg po BID once received check iron studies with labs for c1d1 pembro follow-up ~3wks at c2d1 pembro labs per treatment plan - History of Present Illness Chief Complaint: Patient is here today for a 3 week follow up visit and discuss Inlyta for her kidney mass HPI: 67-year-old female history of nonischemic cardiomyopathy, reduced ejection fraction, coronary artery disease, tobacco use, COPD, renal cell carcinoma. Sherequires 2 L of oxygen chronically. Outpatient medications include Lexapro, aspirin, atorvastatin, Entresto, spironolactone, metoprolol, Xanax as needed. Primary patient of Nedra Trujillo nurse practitioner in [place]. Also follows with Dr. Cervantes and Dr. Quach of urology. She had a hospitalization in December 2022 and ultimately was life flighted to [facility] for a myocardial infarction and ischemic heart disease. During that hospitalization work-up found a renal mass. Her ejection fraction 45% in December 2022 improved to 55 to 60% in May 2023. A CT of the abdomen and pelvis from January 28, 2023 showed a heterogeneously enhancing right renal mass 12.8 x 8.2 x 8.3 cm with extension into the right renal vein. No evidence of hydronephrosis. She has a right-sided IVCD. No definitive retroperitoneal lymphadenopathy. Follow-up MRI of the abdomen without IV contrast from 02/09/2023 notes a large right renal mass consistent with primary malignancy with tumor thrombus extension of the right renal vein and IVC which extends to the level of the inferior aspect of the intrahepatic IVC. This abuts the right psoas muscle without invasion of the muscle. Extensive reticulonodular opacities at the lung base not well assessed possibly sequela of infectious or inflammatory process. Superimposed small pulmonary metastasis is not excluded. CT of the chest angiogram from 01/26/2023 notes small to borderline enlarged lymph nodes in pericarinal and subcarinal region and left greater than right sided hilar region. Patchy multifocal nodular opacities throughout both upper and lower lungs left greater than right. 07/31/[address] last week. He was not eager for a big resection with her. She has had hematuria with clots for a few days. She does have some concerns she may not be emptying her bladder properly. no flank pain. she does have dysuria also. 08/28/23 she had a bad experience with the biopsy, she thought they were unprofessional. 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 Rhabdoid. 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 no more hematuria following her abx course 5days. 09/12/23 she denies any recurrent bleeding/hematuria since completing her antibiotics previously, but did have some during/after iron infusions about a month ago having some mild left sided back pain that comes and goes eating and drinking ok. Is tired of eating chicken, but cannot tolerate beef. She will get heartburn if she has red meats. Denies n/v/d. Does get some constipation she is fatigued, has dyspnea on exertion. Has restless legs, some muscle cramps Her EKG notes sinus rhythm, possible right ventricular conduction delay. PVCs nolonger present labs with hgb 8.1. creatinine stable, sodium stable. We did not repeat iron studies but will plan this - Physical Exam ECOG PS:0 General : patient is alert and oriented to person place and time, no acute distress. Neck: no JVD or thyromegaly. Lymph: no cervical, supraclavicular, axillary adenopathy. Heart: regular rate and rhythm no murmurs rubs or gallops. Abdomen: soft, nontender,, nondistended, normoactive bowel sounds Lungs: clear to auscultation bilaterally. No wheezes, rales, rhonchi. On 2L O2 via nc Extremities: no clubbing cyanosis R flank mass is large and palpable. - Time with Patient Coordination of Care & Counseling Time: Greater than 50% of time spent with patient was for coordination of care (as documented) and alsm-ci-xcrf counseling of patient and/or family. 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 - Family History Family History: Family History (Last Updated 06/23/23 @ 13:46 by Elayne Taylor) Mother Tuberculosis Multiple sclerosis Other Lymphoma - Social History Smoking Status: Former smoker Substance Use Type: None Additional Data - Additional Objective Data Height/Weight: Height 5 ft 5 in Weight 65.317 kg Vital Signs: 09/12/23 12:52 Temperature 97.3 F L Pulse Rate [Right Brachial] 83 Respiratory Rate 16 Blood Pressure [Right Arm] 138/68 02 Sat by Pulse Oximetry 100 Oxygen Delivery Method Nasal Cannula - Lab Results Diagram of Most Recent CBC and CMP 07/31/23 15:25 07/31/23 15:25 - Home Medications and Allergies Allergies/Adverse Reactions: Allergies erythromycin base Allergy (Verified 09/12/23 12:50) Diarrhea Home Medications: Home Medications atorvastatin 20 mg tablet 20 mg PO QHS 06/21/23 [History Confirmed 09/12/23] escitalopram oxalate 5 mg tablet 5 mg PO QAM 06/21/23 [History Confirmed 09/12/23] metoprolol succinate 25 mg tablet,extended release 24 hr 25 mg PO DIRECTED 06/21/23 [History Confirmed 09/12/23] pantoprazole 40 mg tablet,delayed release 40 mg PO DAILY 06/21/23 [History Confirmed 09/12/23] sacubitril 24 mg-valsartan 26 mg tablet (Entresto) 1 tab PO BID 06/21/23 [History Confirmed 09/12/23] spironolactone 25 mg tablet 12.5 mg PO DIRECTED 06/21/23 [History Confirmed 09/12/23] famotidine 20 mg tablet 20 mg PO DAILY 07/31/23 [History Confirmed 09/12/23] tiotropium 2.5 mcg-olodaterol 2.5 mcg/actuation mist for inhalation (Stiolto Respimat) 2 puff inhalation DAILY 07/31/23 [History Confirmed 09/12/23] glycopyrrolate 9 mcg-formoterol 4.8 mcg HFA aerosol inhaler (Bevespi Aerosphere)2 puff inhalation BID 08/28/23 [History Confirmed 08/28/23] axitinib 5 mg tablet (Inlyta) 5 mg PO BID #60 tabs 09/07/23 [Rx Confirmed 09/12/23] Dictated By: Nedra Moon APRN DD/ 1412 Signed By: <Electronically signed by CHAD Moon> 09/12/23 1638 [facility] Work Phone: 1(226) 271-741712-05-2023 Progress note Author Aries Chavez [facility] September 05, 2023 11:33am Note Date/Time August 28, 2023 1:16pm [facility] [place] [address] Hem/Onc Follow Up Note - OP Signed Patient: Perla Ibarra MR# : [id number] : 1955 Acct:[id number] Age/Sex: 68 / F Type: REG RCR Copies to: DEIDRE Barrett SELF,REFERRAL ~ Date of Service: 08/28/2023 Time of Service: 13:15 - Assessment & Plan (1) Renal mass Plan: 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 Right renal mass, 15*9*12 cm with extension into right renal vein and inferior vena cava.. Has seen Dr. Ann in [place] for consideration of nephrectomy. Determined not a very good surgical candidate, she has very extensive disease and overall generally poor health. No definitive retroperitoneal lymphadenopathy. Extensive reticulonodular opacities at the lung base not well assessed possibly sequela of infectious or inflammatory process. Superimposed small pulmonary metastasis is not excluded. Will start palliative treatment and consider for debulking with this agent and reconsider ablative, surgical approaches down the line. She is iron deficient. will offer iv iron in jul 2023. she has blood loss. malabsorption. concern for a UA and hematuria. resolved. Although we were not able to discuss it at the visit as I had not yet had final pathology, by the time I wrote the note on 09/05/2023, it was clear that she had a clear-cell renal neoplasm. I will offer her palliative approach with axitinib and pembrolizumab. Follow Up Instructions: f/u in 2 wks. ekg, ua, cbc, cmp, cea, ldh prior. - History of Present Illness Chief Complaint: Patient is here for a 1 month follow up. Had biopsy 08/22/23. Last dose of Injectafer 08/11/23. HPI: 67-year-old female history of nonischemic cardiomyopathy, reduced ejection fraction, coronary artery disease, tobacco use, COPD, renal cell carcinoma. Sherequires 2 L of oxygen chronically. Outpatient medications include Lexapro, aspirin, atorvastatin, Entresto, spironolactone, metoprolol, Xanax as needed. Primary patient of Nedra Trujillo nurse practitioner in [place]. Also follows with Dr. Cervantes and Dr. Quach of urology. She had a hospitalization in December 2022 and ultimately was life flighted to [facility] for a myocardial infarction and ischemic heart disease. During that hospitalization work-up found a renal mass. Her ejection fraction 45% in December 2022 improved to 55 to 60% in May 2023. A CT of the abdomen and pelvis from January 28, 2023 showed a heterogeneously enhancing right renal mass 12.8 x 8.2 x 8.3 cm with extension into the right renal vein. No evidence of hydronephrosis. She has a right-sided IVCD. No definitive retroperitoneal lymphadenopathy. Follow-up MRI of the abdomen without IV contrast from 02/09/2023 notes a large right renal mass consistent with primary malignancy with tumor thrombus extension of the right renal vein and IVC which extends to the level of the inferior aspect of the intrahepatic IVC. This abuts the right psoas muscle without invasion of the muscle. Extensive reticulonodular opacities at the lung base not well assessed possibly sequela of infectious or inflammatory process. Superimposed small pulmonary metastasis is not excluded. CT of the chest angiogram from 01/26/2023 notes small to borderline enlarged lymph nodes in pericarinal and subcarinal region and left greater than right sided hilar region. Patchy multifocal nodular opacities throughout both upper and lower lungs left greater than right. 07/31/[address] ann last week. He was not eager for a big resection with her. She has had hematuria with clots for a few days. She does have some concerns she may not be emptying her bladder properly. no flank pain. she does have dysuria also. 08/28/23 she had a bad experience with the biopsy, she thought they were unprofessional. 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 Rhabdoid. 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 no more hematuria following her abx course 5days. - Physical Exam ECOG PS:0 General : patient is alert and oriented to person place and time, no acute distress. Neck: no JVD or thyromegaly. Lymph: no cervical, supraclavicular, axillary adenopathy. Heart: regular rate and rhythm no murmurs rubs or gallops. Abdomen: soft, nontender,, nondistended, no hepatosplenomegaly. Lungs: clear to auscultation bilaterally. No wheezes, rales, rhonchi. Extremities: no clubbing cyanosis R flank mass is large and palpable. - Time with Patient Coordination of Care & Counseling Time: Greater than 50% of time spent with patient was for coordination of care (as documented) and [id number] counseling of patient and/or family. 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 - Family History Family History: Family History (Last Updated 06/23/23 @ 13:46 by Elayen Taylor) Mother Tuberculosis Multiple sclerosis Other Lymphoma - Social History Smoking Status: Former smoker Substance Use Type: None Additional Data - Additional Objective Data Height/Weight: Height 5 ft 5 in Weight 66.315 kg Vital Signs: 08/28/23 13:02 Temperature 98.3 F Pulse Rate [Right Brachial] 90 Respiratory Rate 20 Blood Pressure [Right Arm] 134/69 02 Sat by Pulse Oximetry 100 Oxygen Delivery Method Nasal Cannula Oxygen Flow Rate 2 - Lab Results Diagram of Most Recent CBC and CMP 07/31/23 15:25 07/31/23 15:25 - Home Medications and Allergies Allergies/Adverse Reactions: Allergies erythromycin base Allergy (Verified 08/04/23 14:19) Diarrhea Home Medications: Home Medications atorvastatin 20 mg tablet 20 mg PO QHS 06/21/23 [History Confirmed 08/28/23] escitalopram oxalate 5 mg tablet 5 mg PO QAM 06/21/23 [History Confirmed 08/28/23] metoprolol succinate 25 mg tablet,extended release 24 hr 25 mg PO DIRECTED 06/21/23 [History Confirmed 08/28/23] pantoprazole 40 mg tablet,delayed release 40 mg PO DAILY 06/21/23 [History Confirmed 08/28/23] sacubitril 24 mg-valsartan 26 mg tablet (Entresto) 1 tab PO BID 06/21/23 [History Confirmed 08/28/23] spironolactone 25 mg tablet 12.5 mg PO DIRECTED 06/21/23 [History Confirmed 08/28/23] famotidine 20 mg tablet 20 mg PO DAILY 07/31/23 [History Confirmed 08/28/23] sulfamethoxazole 800 mg-trimethoprim 160 mg tablet (Bactrim DS) 1 tab PO BID #20tabs 07/31/23 [Rx Confirmed 08/28/23] tiotropium 2.5 mcg-olodaterol 2.5 mcg/actuation mist for inhalation (Stiolto Respimat) 2 puff inhalation DAILY 07/31/23 [History Confirmed 08/28/23] glycopyrrolate 9 mcg-formoterol 4.8 mcg HFA aerosol inhaler (Bevespi Aerosphere)2 puff inhalation BID 08/28/23 [History Confirmed 08/28/23] Dictated By: Aries Chavez II, DO DD/ 1315 Signed By: <Electronically signed by Aries Chavez II, DO> 09/05/23 1133 [facility] Work Phone: 1(580) 621-943410-30-2023 Progress note Author Aries Chavez [facility] July 31, 2023 2:29pm Note Date/Time July 31, 2023 1 :59pm [facility] [place] [address] Hem/Onc Follow Up Note - OP Signed Patient: Perla Ibarra MR# : [id number] : 1955 Acct:[id number] Age/Sex: 67 / F Type: REG RCR Copies to: DEIDRE Barrett SELF,REFERRAL ~ Date of Service: 07/31/2023 Time of Service: 13:59 - Assessment & Plan (1) Renal mass Plan: Right renal mass, 15*9*12 cm with extension into right renal vein and inferior vena cava.. Likely a neoplasm. Has seen Dr. Ann in [place] for consideration of nephrectomy. No definitive retroperitoneal lymphadenopathy. Extensive reticulonodular opacities at the lung base not well assessed possibly sequela of infectious or inflammatory process. Superimposed small pulmonary metastasis is not excluded. She is not a good surgicaL CANDIDATE. we will attempt biopsy, if RCC confirmed, will start palliative PDL1 inhibitor and consider for debulking with this agent and reconsider ablative, surgical approaches down the line. She is iron deficient. will offer iv iron in jul 2023. she has blood loss. malabsorption. concern for a UA and hematuria. i told her to go to an ER for thick clots. She is on an aspirin for cardiac history. Follow Up Instructions: renal mass biopsy. start here, if not [place] is reasonable, [place]. f/u after. check ua and culture. offer her bactrim DS one tab bid x 10 days. get images uploaded to our system from [employer]. iv iron soon. cbc, cmp, iron studies in our system soon. - History of Present Illness Chief Complaint: Patient is here for a 1 month follow up with outside labs and radiology for review. States I am bleeding. HPI: 67-year-old female history of nonischemic cardiomyopathy, reduced ejection fraction, coronary artery disease, tobacco use, COPD, renal cell carcinoma. Sherequires 2 L of oxygen chronically. Outpatient medications include Lexapro, aspirin, atorvastatin, Entresto, spironolactone, metoprolol, Xanax as needed. Primary patient of Nedra Trujillo nurse practitioner in [place]. Also follows with Dr. Cervantes and Dr. Quach of urology. She had a hospitalization in December 2022 and ultimately was life flighted to [facility] for a myocardial infarction and ischemic heart disease. During that hospitalization work-up found a renal mass. Her ejection fraction 45% in December 2022 improved to 55 to 60% in May 2023. A CT of the abdomen and pelvis from January 28, 2023 showed a heterogeneously enhancing right renal mass 12.8 x 8.2 x 8.3 cm with extension into the right renal vein. No evidence of hydronephrosis. She has a right-sided IVCD. No definitive retroperitoneal lymphadenopathy. Follow-up MRI of the abdomen without IV contrast from 02/09/2023 notes a large right renal mass consistent with primary malignancy with tumor thrombus extension of the right renal vein and IVC which extends to the level of the inferior aspect of the intrahepatic IVC. This abuts the right psoas muscle without invasion of the muscle. Extensive reticulonodular opacities at the lung base not well assessed possibly sequela of infectious or inflammatory process. Superimposed small pulmonary metastasis is not excluded. CT of the chest angiogram from 01/26/2023 notes small to borderline enlarged lymph nodes in pericarinal and subcarinal region and left greater than right sided hilar region. Patchy multifocal nodular opacities throughout both upper and lower lungs left greater than right. 07/31/[address] ann last week. He was not eager for a big resection with her. She has had hematuria with clots for a few days. She does have some concerns she may not be emptying her bladder properly. no flank pain. she does have dysuria also. - Physical Exam ECOG PS:0 General : patient is alert and oriented to person place and time, no acute distress. Neck: no JVD or thyromegaly. Lymph: no cervical, supraclavicular, axillary adenopathy. Heart: regular rate and rhythm no murmurs rubs or gallops. Abdomen: soft, nontender,, nondistended, no hepatosplenomegaly. Lungs: clear to auscultation bilaterally. No wheezes, rales, rhonchi. Extremities: no clubbing cyanosis - Time with Patient Coordination of Care & Counseling Time: Greater than 50% of time spent with patient was for coordination of care (as documented) and [id number] counseling of patient and/or family. 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 - Family History Family History: Family History (Last Updated 06/23/23 @ 13:46 by Elayne Taylor) Mother Tuberculosis Multiple sclerosis Other Lymphoma - Social History Smoking Status: Former smoker Substance Use Type: None Additional Data - Additional Objective Data Height/Weight: Height 5 ft 5 in Weight 64.773 kg Vital Signs: 07/31/23 13:44 Temperature 97.7 F Pulse Rate [Right Brachial] 83 Respiratory Rate 20 Blood Pressure [Right Arm] 110/68 02 Sat by Pulse Oximetry 98 Oxygen Delivery Method Room Air - Home Medications and Allergies Allergies/Adverse Reactions: Allergies erythromycin base Allergy (Verified 06/23/23 13:28) Diarrhea Home Medications: Home Medications atorvastatin 20 mg tablet 20 mg PO QHS 06/21/23 [History Confirmed 07/31/23] escitalopram oxalate 5 mg tablet 5 mg PO QAM 06/21/23 [History Confirmed 07/31/23] metoprolol succinate 25 mg tablet,extended release 24 hr 25 mg PO DIRECTED 06/21/23 [History Confirmed 07/31/23] pantoprazole 40 mg tablet,delayed release 40 mg PO DAILY 06/21/23 [History Confirmed 07/31/23] sacubitril 24 mg-valsartan 26 mg tablet (Entresto) 1 tab PO BID 06/21/23 [History Confirmed 07/31/23] spironolactone 25 mg tablet 12.5 mg PO DIRECTED 06/21/23 [History Confirmed 07/31/23] famotidine 20 mg tablet 20 mg PO DAILY 07/31/23 [History Confirmed 07/31/23] tiotropium 2.5 mcg-olodaterol 2.5 mcg/actuation mist for inhalation (Stiolto Respimat) 2 puff inhalation DAILY 07/31/23 [History Confirmed 07/31/23] Dictated By: Aries Chavez II, DO DD/ 1359 Signed By: <Electronically signed by Aries Chavez II, DO> 07/31/23 1429 [facility] Work Phone: 1(741) 691-620710-25-2023 NoteAddendum to follow. Maddie [facility] Progress note Author Aries Chavez [facility] July 11, 2023 1:21pm Note Date/Time June 23, 2023 1:54pm [facility] [place] [address] Hem/Onc Follow Up Note - OP Signed Patient: Perla Ibarra MR# : [id number] : 1955 Acct:[id number] Age/Sex: 67 / F Type: REG RCR Copies to: Nedra Perez, DEIDRE SELF,REFERRAL ~ Date of Service: 06/23/2023 Time of Service: 13:54 - Assessment & Plan (1) Renal mass Plan: Right renal mass, 12 x 8 x 8 cm with extension into right renal vein and inferior vena cava.. Likely a neoplasm. She will be referred for consideration of nephrectomy. I have communicated with Dr. Ann who is now with [facility]. No definitive retroperitoneal lymphadenopathy. Extensive reticulonodular opacities at the lung base not well assessed possibly sequela of infectious or inflammatory process. Superimposed small pulmonary metastasis is not excluded. About the only thing we can do for this is to repeat her imaging in a few months. If it is metastatic, she would likely potentially benefit from debulking nephrectomy anyway so I would proceed with nephrectomy consideration. Follow Up Instructions: get MRI and ct images to here from [facility]. refer to [facility] at [facility]. f/u with me in a month (after imaging). get an CT a/p with contrast in a month at [facility]. cbc, cmp, iron studies b12, foalte, epo, retic, ldh soon. - History of Present Illness Chief Complaint: Patient is a self referral for a right renal mass. Multiple outside notes for review. HPI: 67-year-old female history of nonischemic cardiomyopathy, reduced ejection fraction, coronary artery disease, tobacco use, COPD, renal cell carcinoma. Sherequires 2 L of oxygen chronically. Outpatient medications include Lexapro, aspirin, atorvastatin, Entresto, spironolactone, metoprolol, Xanax as needed. Primary patient of Nedra Trujillo nurse practitioner in [place]. Also follows with Dr. Cervantes and Dr. Quach of urology. She had a hospitalization in December 2022 and ultimately was life flighted to [facility] for a myocardial infarction and ischemic heart disease. During that hospitalization work-up found a renal mass. Her ejection fraction 45% in December 2022 improved to 55 to 60% in May 2023. A CT of the abdomen and pelvis from January 28, 2023 showed a heterogeneously enhancing right renal mass 12.8 x 8.2 x 8.3 cm with extension into the right renal vein. No evidence of hydronephrosis. She has a right-sided IVCD. No definitive retroperitoneal lymphadenopathy. Follow-up MRI of the abdomen without IV contrast from 02/09/2023 notes a large right renal mass consistent with primary malignancy with tumor thrombus extension of the right renal vein and IVC which extends to the level of the inferior aspect of the intrahepatic IVC. This abuts the right psoas muscle without invasion of the muscle. Extensive reticulonodular opacities at the lung base not well assessed possibly sequela of infectious or inflammatory process. Superimposed small pulmonary metastasis is not excluded. CT of the chest angiogram from 01/26/2023 notes small to borderline enlarged lymph nodes in pericarinal and subcarinal region and left greater than right sided hilar region. Patchy multifocal nodular opacities throughout both upper and lower lungs left greater than right. - Physical Exam ECOG PS:0 General : patient is alert and oriented to person place and time, no acute distress. Neck: no JVD or thyromegaly. Lymph: no cervical, supraclavicular, axillary adenopathy. Heart: regular rate and rhythm no murmurs rubs or gallops. Abdomen: soft, nontender,, nondistended, no hepatosplenomegaly. Lungs: clear to auscultation bilaterally. No wheezes, rales, rhonchi. Extremities: no clubbing cyanosis - Time with Patient Coordination of Care & Counseling Time: Greater than 50% of time spent with patient was for coordination of care (as documented) and [id number] counseling of patient and/or family. 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 - Family History Family History: Family History (Last Updated 06/23/23 @ 13:46 by Elayne Taylor) Mother Tuberculosis Multiple sclerosis Other Lymphoma - Social History Smoking Status: Former smoker Substance Use Type: None Additional Data - Additional Objective Data Height/Weight: Height 5 ft 5 in Weight 64.954 kg Vital Signs: 06/23/23 13:38 Temperature 97.5 F L Pulse Rate [Right Brachial] 87 Respiratory Rate 20 Blood Pressure [Right Arm] 124/71 02 Sat by Pulse Oximetry 100 Oxygen Delivery Method Nasal Cannula Oxygen Flow Rate 2 - Home Medications and Allergies Allergies/Adverse Reactions: Allergies erythromycin base Allergy (Verified 06/23/23 13:28) Diarrhea Home Medications: Home Medications atorvastatin 20 mg tablet 20 mg PO QHS 06/21/23 [History Confirmed 06/23/23] escitalopram oxalate 5 mg tablet 5 mg PO QAM 06/21/23 [History Confirmed 06/23/23] metoprolol succinate 25 mg tablet,extended release 24 hr 25 mg PO DIRECTED 06/21/23 [History Confirmed 06/23/23] pantoprazole 40 mg tablet,delayed release 40 mg PO DAILY 06/21/23 [History Confirmed 06/23/23] sacubitril 24 mg-valsartan 26 mg tablet (Entresto) 1 tab PO BID 06/21/23 [History Confirmed 06/23/23] spironolactone 25 mg tablet 12.5 mg PO DIRECTED 06/21/23 [History Confirmed 06/23/23] Dictated By: Aries Chavez II, DO DD/ 1354 Signed By: <Electronically signed by Aries Chavez II, DO> 07/11/23 1321 [facility] Work Phone: [phone]) 603-696008-17-2023 NoteCardiology Clinic Note Subjective Perla Ibarra is a 67 y.o. year old female patient with nonischemic cardiomyopathy, heart failure improved ejection fraction with EF 45% (01/27/2023) to 55-60% (05/09/2023), mild non-obstructive coronary artery disease on angiography (01/26/2023), tobacco use, probable COPD, and renal cell carcinoma seen in follow-up. Patient Active Problem List Diagnosis Acute coronary syndrome (CMS/HCC) Acute respiratory failure with hypoxia and hypercapnia (CMS/HCC) Parainfluenza infection Acute systolic heart failure (CMS/HCC) COPD (chronic obstructive pulmonary disease) (CMS/HCC) Myocardial infarction (CMS/HCC) Family History Problem Relation Name Age of Onset Tuberculosis Mother Heart attack Brother Heart failure Maternal Grandmother Heart attack Maternal Grandfather Social History Tobacco Use Smoking status: Former Types: Cigarettes Quit date: 01/26/2023 Years since quittin.3 Smokeless tobacco: Never Substance Use Topics Alcohol use: Never Drug use: Never HPI Perla Ibarra is a 67 y.o. year old female patient with nonischemic cardiomyopathy, heart failure reduced ejection fraction with EF 45%, coronary artery disease, tobacco use, probable COPD, and right renal mass concerning for renal cell carcinoma. Update: 02/07/2023 She was transferred from [facility] to [facility] for evaluation of acute respiratory failure in setting of acute decompensated heart failure requiring intubation and elevated troponin. She underwent coronary angiography on 01/26/2023 which revealed nonobstructive coronary artery disease. Right heart catheterization showed elevated pressures with a mean wedge of 33 mmHg. She was discharged on carvedilol 3.125 mg twice daily, dapagliflozin 5 mg daily, Entresto 24-26 mg twice daily, spironolactone 12.5 mg daily, and aspirin 81 mg daily. She presents today with her partner Kim. She has been feeling tired since hospital discharge, breathing has improved but remains dyspneic on exertion. She has followed up with primary care provider since hospital discharge and has been referred to urology as well as pulmonology for evaluation of renal mass and COPD respectively. She denies chest pain or lower extremity edema. Update: 03/21/2023 Has upcoming appointment with pulmonology at the end of the month She is also planned to see urology in regard to a renal mass She at times feels like drowning in her Oxygen No significant lower extremity edema Update: 04/21/2023 She presents today for follow up. She states that she is doing better overall. However, her blood pressure has been low. Her PCP recently decreased her Farxiga dose to 5 mg daily. She continues to endorse chronic shortness of breath. She denies any chest pain. No lower extremity edema. No near-syncope or syncope. Update: 05/18/2023 Seen in follow-up for hypotension Farxiga was discontinued during her last OV and she was switched from Carvedilol to Metoprolol She reports her shakes and lack of taste have resolved with the medication changes BP has improved She followed with urology has been diagnosed with terminal inoperable RCC Further testing was deferred by pulmonology but she is empirically treated for COPD Stable 2L O2 requirements Denies chest pain, worsening dyspnea, or lower extremity edema Review of Systems Constitutional: Positive for malaise/fatigue. Cardiovascular: Positive for dyspnea on exertion. Negative for chest pain, irregular heartbeat, leg swelling, near-syncope, orthopnea, palpitations, paroxysmal nocturnal dyspnea and syncope. Objective Visit Vitals BP 110/52 (BP Location: Left arm, Patient Position: Sitting, BP Cuff Size: Adult) Pulse 82 Ht 1.676 m (5' 6 ) Wt 60.8 kg (134 lb) SpO2 98% Comment: 2 liters o2 BMI 21.63 kg/m??? Smoking Status Former BSA 1.68 m??? Physical Exam General: Awake, alert, good spirits. NAD Pulm: Diminished air movement in all lung francis, bibasilar Rales Cards: Regular rate and rhythm, S1, S2. No S3 or S4 gallop. Murmur: none Abd: Soft, Nontender, physiologic bowel sounds are present Extr: Lower extremity edema: None. DP pulses:2+ Skin: warm, dry, well perfused Neuro: A&Ox3, No gross deficits Allergies Allergies Allergen Reactions Erythromycin Unknown Per report from [facility] Medications Current Outpatient Medications: atorvastatin (Lipitor) 20 mg tablet, Take 1 tablet (20 mg) by mouth at bedtime., Disp: 90 tablet, Rfl: 3 escitalopram (Lexapro) 5 mg tablet, Take 5 mg by mouth in the morning., Disp: , Rfl: loratadine (Claritin) 10 mg tablet, Take 10 mg by mouth if needed each day., Disp: , Rfl: metoprolol succinate XL (Toprol-XL) 25 mg 24 hr tablet, Take 0.5 tablets (12.5 mg) by mouth once daily as directed. Do not crush or chew., Disp: 45 tablet, Rfl: 3 pantoprazole (ProtoNix) 40 mg EC tablet, Take 40 mg by mouth in the morning., Disp: , Rfl (more content not included)...[facility] 04-21-2023 NotePatient here for hypotension per Dr. Perez, PCP. PCP decreased Farxiga down to 5mg recently. Denies chest pain and lightheadedness. She thinks as the day goes on her BP drops lower and she becomes more weak and tired. Patient states she feels better taking lower dose Farxiga. Review of Systems Constitutional: Positive for malaise/fatigue. Cardiovascular: Positive for dyspnea on exertion and paroxysmal nocturnal dyspnea. Respiratory: Positive for cough. Musculoskeletal: Positive for arthritis and joint pain. Neurological: Positive for headaches. All other systems reviewed and are negative.[facility] 04-21-2023 NoteCardiology Clinic Note Subjective Perla Ibarra is a 67 y.o. year old female patient with nonischemic cardiomyopathy, heart failure reduced ejection fraction with EF 45%, coronary artery disease, tobacco use, probable COPD, and right renal mass concerning for renal cell carcinoma. She was transferred from [facility] to [facility] for evaluation of acute respiratory failure in setting of acute decompensated heart failure requiring intubation and elevated troponin. She underwent coronary angiography on 01/26/2023 which revealed nonobstructive coronary artery disease. Right heart catheterization showed elevated pressures with a mean wedge of 33 mmHg. She was discharged on carvedilol 3.125 mg twice daily, dapagliflozin 5 mg daily, Entresto 24-26 mg twice daily, spironolactone 12.5 mg daily, and aspirin 81 mg daily. She presents today for follow up. She states that she is doing better overall. However, her blood pressure has been low. Her PCP recently decreased her Farxiga dose to 5 mg daily.She continues to endorse chronic shortness of breath. She denies any chest pain. No lower extremity edema. No near-syncope or syncope. Patient Active Problem List Diagnosis Acute coronary syndrome (CMS/HCC) Acute respiratory failure with hypoxia and hypercapnia (CMS/HCC) Parainfluenza infection Acute systolic heart failure (CMS/HCC) COPD (chronic obstructive pulmonary disease) (CMS/HCC) Myocardial infarction (CMS/HCC) Family History Problem Relation Name Age of Onset Tuberculosis Mother Heart attack Brother Heart failure Maternal Grandmother Heart attack Maternal Grandfather Social History Tobacco Use Smoking status: Former Types: Cigarettes Quit date: 01/26/2023 Years since quittin.3 Smokeless tobacco: Never Substance Use Topics Alcohol use: Never Drug use: Never ROS 10 point ROS was performed and is negative unless otherwise specified in HPI Objective Visit Vitals BP 102/71 (BP Location: Right arm, Patient Position: Sitting) Pulse 68 Ht 1.676 m (5' 6 ) Wt 65.3 kg (144 lb) SpO2 98% BMI 23.24 kg/m??? Smoking Status Former BSA 1.74 m??? Physical Exam General: Awake, alert, good spirits. NAD Pulm: diffuse end expiratory wheezing Cards: Regular rate and rhythm, S1, S2. No S3 or S4 gallop. Murmur: none Abd: Soft, Nontender, physiologic bowel sounds are present Extr: Lower extremity edema: None. DP pulses:2+ Skin: warm, dry, well perfused Neuro: A&Ox3, No gross deficits Allergies Allergies Allergen Reactions Erythromycin Unknown Per report from [facility] Medications Current Outpatient Medications: atorvastatin (Lipitor) 20 mg tablet, Take 1 tablet (20 mg) by mouth at bedtime., Disp: 90 tablet, Rfl: 3 carvedilol (Coreg) 3.125 mg tablet, Take 1 tablet (3.125 mg) by mouth with breakfast and with evening meal for 192 doses., Disp: 180 tablet, Rfl: 3 dapagliflozin (Farxiga) 10 mg, Take 1 tablet (10 mg) by mouth in the morning for 95 doses. (Patient taking differently: Take 5 mg by mouth in the morning.), Disp: 30 tablet, Rfl: 3 escitalopram (Lexapro) 5 mg tablet, Take 5 mg by mouth in the morning., Disp: , Rfl: loratadine (Claritin) 10 mg tablet, Take 10 mg by mouth if needed each day., Disp: , Rfl: pantoprazole (ProtoNix) 40 mg EC tablet, Take 40 mg by mouth in the morning., Disp: , Rfl: sacubitriL-valsartan (Entresto) 24-26 mg tablet, Take 1 tablet by mouth in the morning and at bedtime., Disp: 180 tablet, Rfl: 3 spironolactone (Aldactone) 25 mg tablet, Take 0.5 tablets (12.5 mg) by mouth once daily as directed., Disp: 45 tablet, Rfl: 3 furosemide (Lasix) 20 mg tablet, Take 1 tablet (20 mg) by mouth in the morning., Disp: 90 tablet, Rfl: 3 metoprolol succinate XL (Toprol-XL) 25 mg 24 hr tablet, Take 0.5 tablets (12.5 mg) by mouth once daily as directed. Do not crush or chew., Disp: 45 tablet, Rfl: 3 Recent Labs Lab Results Component Value Date NA 129 (L) 01/31/2023 K 4.2 01/31/2023 CL 91 (L) 01/31/2023 CO2 30 01/31/2023 BUN 22 01/31/2023 CREATININE 0.68 01/31/2023 GLUCOSE 96 01/31/2023 CALCIUM 8.6 01/31/2023 Lab Results Component Value Date WBC 11.54 (H) 01/31/2023 HGB 10.5 (L) 01/31/2023 HCT 32.7 (L) 01/31/2023 MCV 75.3 (L) 01/31/2023 PLT 334 01/31/2023 Lab Results Component Value Date CHOL 113 (L) 01/25/2023 TRIG 108 01/25/2023 TRIG 107 01/25/2023 HDL 46 01/25/2023 LDL 46 Imaging and other tests Encounter Date: 01/25/23 ECG 12 lead Result Value Ventricular Rate 113 Atrial Rate 113 MS Interval 130 QRS DURATION 94 QT Interval 342 QTC CALCULATION(BAZETT) 469 P [place] 63 R-[place] 48 T Wave [place] 77 Impression Sinus tachycardia Incomplete right bundle branch block Borderline ECG When compared with ECG of 25-JAN-2023 21:57, Premature atrial complexes are no longer Present Vent. rate has increased BY 47 BPM T wave inversion less evident in Anterior leads (more content not included)...[facility] 03-21-2023 NoteCardiology Clinic Note Subjective Perla Ibarra is a 67 y.o. year old female patient with nonischemic cardiomyopathy, heart failure reduced ejection fraction with EF 45%, coronary artery disease, tobacco use, probable COPD, and right renal mass concerning for renal cell carcinoma. Patient Active Problem List Diagnosis Acute coronary syndrome (CMS/HCC) Acute respiratory failure with hypoxia and hypercapnia (CMS/HCC) Parainfluenza infection Acute systolic heart failure (CMS/HCC) COPD (chronic obstructive pulmonary disease) (CMS/HCC) Myocardial infarction (CMS/HCC) Family History Problem Relation Name Age of Onset Tuberculosis Mother Heart attack Brother Heart failure Maternal Grandmother Heart attack Maternal Grandfather Social History Tobacco Use Smoking status: Former Types: Cigarettes Quit date: 01/26/2023 Years since quittin.1 Smokeless tobacco: Never Substance Use Topics Alcohol use: Never Drug use: Never HPI Perla Ibarra is a 67 y.o. year old female patient with nonischemic cardiomyopathy, heart failure reduced ejection fraction with EF 45%, coronary artery disease, tobacco use, probable COPD, and right renal mass concerning for renal cell carcinoma. Update: 02/07/2023 She was transferred from [facility] to [facility] for evaluation of acute respiratory failure in setting of acute decompensated heart failure requiring intubation and elevated troponin. She underwent coronary angiography on 01/26/2023 which revealed nonobstructive coronary artery disease. Right heart catheterization showed elevated pressures with a mean wedge of 33 mmHg. She was discharged on carvedilol 3.125 mg twice daily, dapagliflozin 5 mg daily, Entresto 24-26 mg twice daily, spironolactone 12.5 mg daily, and aspirin 81 mg daily. She presents today with her partner Kim. She has been feeling tired since hospital discharge, breathing has improved but remains dyspneic on exertion. She has followed up with primary care provider since hospital discharge and has been referred to urology as well as pulmonology for evaluation of renal mass and COPD respectively. She denies chest pain or lower extremity edema. Update: 03/21/2023 Has upcoming appointment with pulmonology at the end of the month She is also planned to see urology in regard to a renal mass She at times feels like drowning in her Oxygen No significant lower extremity edema Review of Systems Constitutional: Positive for malaise/fatigue. Cardiovascular: Positive for dyspnea on exertion and paroxysmal nocturnal dyspnea. Negative for chest pain, irregular heartbeat, leg swelling, near-syncope, orthopnea, palpitations and syncope. Objective Visit Vitals BP 100/62 (BP Location: Left arm, Patient Position: Sitting, BP Cuff Size: Adult) Pulse 67 Ht 1.676 m (5' 6 ) Wt 67.1 kg (148 lb) SpO2 98% BMI 23.89 kg/m??? Smoking Status Former BSA 1.77 m??? Physical Exam General: Awake, alert, good spirits. NAD Pulm: Diminished air movement in all lung francis, bibasilar Rales Cards: Regular rate and rhythm, S1, S2. No S3 or S4 gallop. Murmur: none Abd: Soft, Nontender, physiologic bowel sounds are present Extr: Lower extremity edema: None. DP pulses:2+ Skin: warm, dry, well perfused Neuro: A&Ox3, No gross deficits Allergies Allergies Allergen Reactions Erythromycin Unknown Per report from [facility] Medications Current Outpatient Medications: aspirin 81 mg EC tablet, Take 1 tablet (81 mg) by mouth in the morning., Disp: 90 tablet, Rfl: 3 atorvastatin (Lipitor) 20 mg tablet, Take 1 tablet (20 mg) by mouth at bedtime., Disp: 90 tablet, Rfl: 3 carvedilol (Coreg) 3.125 mg tablet, Take 1 tablet (3.125 mg) by mouth with breakfast and with evening meal for 192 doses., Disp: 180 tablet, Rfl: 3 dapagliflozin (Farxiga) 10 mg, Take 1 tablet (10 mg) by mouth in the morning for 95 doses., Disp: 30 tablet, Rfl: 3 loratadine (Claritin) 10 mg tablet, Take 10 mg by mouth if needed each day., Disp: , Rfl: ondansetron (Zofran) 4 mg tablet, Take 4 mg by mouth in the morning., Disp: , Rfl: pantoprazole (ProtoNix) 40 mg EC tablet, Take 40 mg by mouth in the morning., Disp: , Rfl: spironolactone (Aldactone) 25 mg tablet, Take 0.5 tablets (12.5 mg) by mouth once daily as directed., Disp: 45 tablet, Rfl: 3 furosemide (Lasix) 20 mg tablet, Take 1 tablet (20 mg) by mouth in the morning., Disp: 90 tablet, Rfl: 3 sacubitriL-valsartan (Entresto) 24-26 mg tablet, Take 1 tablet by mouth in the morning and at bedtime., Disp: 180 tablet, Rfl: 3 Recent Labs Lab Results Component Value Date NA 129 (L) 01/31/2023 K 4.2 01/31/2023 CL 91 (L) 01/31/2023 CO2 30 01/31/2023 BUN 22 01/31/2023 CREATININE 0.68 01/31/2023 GLUCOSE 96 01/31/2023 CALCIUM 8.6 01/31/2023 Lab Results Component Value Date WBC 11.54 (H) 01/31/2023 HGB 10.5 (L) 01/31/2023 HCT 32.7 (L) 01/31/2023 MCV 75.3 (L) more content not included)...[facility]05-09-2023 NoteCardiology Clinic Note Subjective Perla Ibarra is a 67 y.o. year old female patient with nonischemic cardiomyopathy, heart failure reduced ejection fraction with EF 45%, coronary artery disease, tobacco use, probable COPD, and right renal mass concerning for renal cell carcinoma seen in posthospitalization follow-up. She was transferred from [facility] to [facility] for evaluation of acute respiratory failure in setting of acute decompensated heart failure requiring intubation and elevated troponin. She underwent coronary angiography on 01/26/2023 which revealed nonobstructive coronary artery disease. Right heart catheterization showed elevated pressures with a mean wedge of 33 mmHg. She was discharged on carvedilol 3.125 mg twice daily, dapagliflozin 5 mg daily, Entresto 24-26 mg twice daily, spironolactone 12.5 mg daily, and aspirin 81 mg daily. She presents today with her partner Kim. She has been feeling tired since hospital discharge, breathing has improved but remains dyspneic on exertion. She has followed up with primary care provider since hospital discharge and has been referred to urology as well as pulmonology for evaluation of renal mass and COPD respectively. She denies chest pain or lower extremity edema. Patient Active Problem List Diagnosis Acute coronary syndrome (CMS/HCC) Acute respiratory failure with hypoxia and hypercapnia (CMS/HCC) Parainfluenza infection Acute systolic heart failure (CMS/HCC) Family History Problem Relation Name Age of Onset Tuberculosis Mother Heart attack Brother Heart failure Maternal Grandmother Heart attack Maternal Grandfather Social History Tobacco Use Smoking status: Former Types: Cigarettes Quit date: 01/26/2023 Years since quittin.0 Smokeless tobacco: Never Substance Use Topics Alcohol use: Never Drug use: Never HPI Discharge summary: 01/31/2023 Perla Ibarra is a 67 y.o. female presenting with No known previous medical history according to records and family is not available over answering phones for history review. She initially presented to the [facility] on 01/24 with shortness of breath. Ultimately was found to have elevated proBNP along with elevation of troponin, lactate and hyponatremia with being positive for parainfluenza virus. She developed worsening shortness of breath and hypoxic respiratory failure and required intubation. Due to NSTEMI along with hypoxic respiratory failure she was admitted to [facility] ICU for escalation of care. She was initially treated with heparin infusion along with empiric antibiotics piperacillin/tazobactam and Levaquin and supplemental oxygen, methylprednisolone and DuoNeb. Noted she did have a failed attempt at a right IJ central line and had a right femoral central line placed along with having a Ochoa catheter placed at outside facility. EKG did not show significant ischemic changes and currently on monitor she is sinus with PACs Prior to intubation patient had following blood gas on 2 L/min nasal cannula: 7.25, 54.7, 70.6, 91.5% after extubation patient transferred to the medical floor did well, evaluated by urology for right renal mass, further follow-up with urology as an outpatient, patient will be maintained for goal-directed therapy for acute systolic congestive heart failure, and will be arranged for home oxygen prior to discharge as patient did qualify for home oxygen. Patient will have follow-up with PCP which will be set up as well with the help of case management/social science analyst. Review of Systems Constitutional: Positive for malaise/fatigue. Cardiovascular: Positive for dyspnea on exertion and paroxysmal nocturnal dyspnea. Negative for chest pain, irregular heartbeat, leg swelling, near-syncope, orthopnea, palpitations and syncope. Objective Visit Vitals BP 108/65 (BP Location: Left arm, Patient Position: Sitting) Pulse 98 Ht 1.676 m (5' 6 ) Wt 68.5 kg (151 lb) LMP (LMP Unknown) SpO2 92% BMI 24.37 kg/m??? Smoking Status Former BSA 1.79 m??? Physical Exam General: Awake, alert, good spirits. NAD Pulm: Diminished air movement in all lung francis, bibasilar Rales Cards: Regular rate and rhythm, S1, S2. No S3 or S4 gallop. Murmur: none Abd: Soft, Nontender, physiologic bowel sounds are present Extr: Lower extremity edema: None. DP pulses:2+ Skin: warm, dry, well perfused Neuro: A&Ox3, No gross deficits Allergies Allergies Allergen Reactions Erythromycin Unknown Per report from [facility] Current Outpatient Medications: aspirin 81 mg EC tablet, Take 1 tablet (81 mg) by mouth in the morning., Disp: 90 tablet, Rfl: 3 atorvastatin (Lipitor) 20 mg tablet, Take 1 tablet (20 mg) by mouth at bedtime., Disp: 90 tablet, Rfl: 3 carvedilol (Coreg) 3.125 mg tablet, Take 1 tablet (3.125 mg) by mouth with breakfast and with evening meal for 192 doses., Disp: 180 tablet, Rfl: 3 dapagliflozin (more content not included)...[facility] 02-07-2023 NotePatient here for follow up [facility] and [facility]. She is still very tired s/p discharge but trying to regain her strength. She and her partner have both quit smoking. Review of Systems Cardiovascular: Positive for dyspnea on exertion. Respiratory: Positive for cough and shortness of breath. Musculoskeletal: Positive for arthritis, back pain, joint pain and muscle weakness. Neurological: Positive for weakness. All other systems reviewed and are negative.[facility] 01-31-2023 NoteHospital Medicine Discharge Summary Final Discharge Diagnosis: 1. Acute hypoxic respiratory failure: Multifactorial with underlying COPD, active smoking along with suspected viral pneumonia. Improved, required BiPAP in MICU now on nasal cannula for oxygen supplementation, goal oxygen saturation 90 to 92%. Clinically resolving, will have home oxygen set up prior to discharge, 2. Acute systolic CHF exacerbation: appears clinically compensated, continue with goal-directed therapy with follow-up with the PCP and cardiology as an outpatient, 3. Nonischemic cardiomyopathy with EF 35 to 40%: Continue goal-directed medical therapy for chronic systolic CHF with outpatient cardiology follow-up after discharge. 4. Nonobstructive CAD: Continue aspirin, Lipitor and Coreg. 5. Right renal mass with suspected thrombus extension into right renal vein: further follow-up with urology as an outpatient Admission Diagnosis: Acute coronary syndrome (CMS/HCC) [I24.9] Hospital course: Perla Ibarra is a 67 y.o. female presenting with No known previous medical history according to records and family is not available over answering phones for history review. She initially presented to the [facility] on 01/24 with shortness of breath. Ultimately was found to have elevated proBNP along with elevation of troponin, lactate and hyponatremia with being positive for parainfluenza virus. She developed worsening shortness of breath and hypoxic respiratory failure and required intubation. Due to NSTEMI along with hypoxic respiratory failure she was admitted to [facility] ICU for escalation of care. She was initially treated with heparin infusion along with empiric antibiotics piperacillin/tazobactam and Levaquin and supplemental oxygen, methylprednisolone and DuoNeb. Noted she did have a failed attempt at a right IJ central line and had a right femoral central line placed along with having a Ochoa catheter placed at outside facility. EKG did not show significant ischemic changes and currently on monitor she is sinus with PACs Prior to intubation patient had following blood gas on 2 L/min nasal cannula: 7.25, 54.7, 70.6, 91.5% after extubation patient transferred to the medical floor did well, evaluated by urology for right renal mass, further follow-up with urology as an outpatient, patient will be maintained for goal-directed therapy for acute systolic congestive heart failure, and will be arranged for home oxygen prior to discharge as patient did qualify for home oxygen. Patient will have follow-up with PCP which will be set up as well with the help of case management/social science analyst. Dear Dr. Balbuena primary care provider on file., Perla is advised to follow up with you within 1-2 weeks. Follow-up with: Cardiology and Urology Scheduled appointments: Future Appointments Date Time Provider Department Center 02/06/2023 8:30 AM NATALIA Del Cid [facility] Your medication list You have not been prescribed any medications. Perla is allergic to erythromycin. Disposition: home Discharge Condition: Fair Code Status: Full Code Diagnostic Results Hematology: Results from last 7 days Lab Units 01/31/2351401/30/2342801/26/23 0432 01/25/23 2245 WBC AUTO 10*3/uL 11.54* 15.38* < > 10.27 HEMOGLOBIN g/dL 10.5* 10.6* < > 8.4* HEMATOCRIT % 32.7* 32.6* < > 25.6* MCV fL 75.3* 75.8* < > 75.7* PLATELETS AUTO 10*3/uL 334 330 < > 231 INR -- -- -- 1.01 < > = values in this interval not displayed. Chemistry: Results from last 7 days Lab Units 01/31/2351401/30/2342801/29/23 1041 01/28/23 2327 SODIUM mmol/L 129* 130* -- 134* POTASSIUM mmol/L 4.2 3.7 4.0 3.4* CHLORIDE mmol/L 91* 93* -- 93* CO2 mmol/L 30 30 -- 31 BUN mg/dL 22 25 -- 27* CREATININE mg/dL 0.68 0.64 -- 0.77 GLUCOSE mg/dL 96 93 -- 113* MAGNESIUM mg/dL 1.9 2.1 2.3 1.8* CALCIUM mg/dL 8.6 8.6 -- 9.1 PHOSPHORUS mg/dL -- 3.1 -- 2.5 Results from last 7 days Lab Units 01/27/23 04101/26/23 0900 01/25/23 2245 HCO3 ART mEq/L 25.9 24.3 -- O2 SAT ART % 97.9 97.8 -- AST U/L -- -- 31 ALT U/L -- -- 36 ALK PHOS U/L -- -- 56 BILIRUBIN TOTAL mg/dL -- -- 0.3 Test Results Pending At Discharge: Diet at the time of discharge: regular diet and cardiac diet Nutrition Screen Activity: Patient currently has no discharge activity orders Objective Blood pressure 119/54, pulse 102, temperature 36.8 ???C (98.2 ???F), temperature source Oral, resp. rate 16, height 1.676 m (5' 5.98 ), weight 70 kg (154 lb 5.2 oz), SpO2 97 %. General: Alert and oriented x3. Cardiology: Normal rate, regular rhythm. Lungs: Clear to auscultation, no wheezes, rales or rhonchi, symmetric air entry. Abdomen: Soft, non tender, non distended. Total time for discharge - review of data, exam, discussion with providers and care-team, med-rec and orders, arranging follow up, counseling of patient and/or family and doc (more content not included)...[facility] 01-31-2023 Note01/31/23 1033 Home Oxygen Therapy Evaluation Pulse Oximetry on room air at Rest 86 Pulse Ox on O2 with nasal cannula while at rest 94 (3L) [facility] NoteMet with patient at bedside for follow up re: SNF. Patient declined need for SNF and stated she would like to go home with OP PT/OT. Respiratory therapist was in there for a home 02 eval and stated patient will most likely need it. Updated MD and [facility]. Patient stated her niece will provide transport. Patient also stated she is in need of a PCP and has been recommended Dr. Davila in the [facility]. Informed [facility] who stated that PCPs can not be set up that far away. Looked up Dr. Davila in [facility] but could not find anybody. Will follow up with patient to discuss home 02 and PCP. Following. Addendum 15:14: [facility] created list of PCPs in the [facility] for patient to reach out to. [facility] also setting patient up with home oxygen through [employer]. Patient's niece will be able to transport patient around 1800. No other known SW needs.[facility]05-01-2023 NotePhysical Therapy Physical Therapy Treatment Patient Name: Perla Ibarra : 1955 Today's Date: 01/30/2023 Time in: 2:53 Time out: 3:06 Total time: 13mins Therapeutic activity x1 Patient Active Problem List Diagnosis Acute coronary syndrome (CMS/HCC) Acute respiratory failure with hypoxia and hypercapnia (CMS/HCC) Parainfluenza infection Acute systolic heart failure ([facility]) Objective General Visit Information: PT Last Visit PT Received On: 01/30/23 General Subjective: Pt laying supine in bed upon PT arrival stating, Do you realize what I have been through today? However pt was agreeable to paricipate with therapy after encouragement, RN okayed pt for therapy this date. Precautions Precautions Medical Precautions: telemetry, fall risk, oxygen, and bed alarm Pain Pain Assessment Pain Assessment: 0-10 Pain Score: 3 Pain Location: Arm (from recent MRI) Cogition Cognition Overall Cognitive Status: Within Functional Limits Orientation Level: Oriented X4 Following Commands: Follows all commands and directions without difficulty Static Sitting Balance Static Sitting Balance Static Sitting-Balance Support: No upper extremity supported, Feet supported Static Sitting-Level of Assistance: Distant supervision Dynamic Sitting Balance Dynamic Sitting Balance Dynamic Sitting-Balance Support: No upper extremity supported, Feet supported Dynamic Sitting-Balance: Lateral lean, Forward lean Dynamic Sitting Balance-Level of Assistance: Close supervision Static Standing Balance Static Standing Balance Static Standing-Balance Support: Right upper extremity supported, Left upper extremity supported, With device Static Standing-Level of Assistance: Contact guard Dynamic Standing Balance Dynamic Standing Balance Dynamic Standing-Balance Support: Right upper extremity supported, Left upper extremity supported, With device Dynamic Standing Balance-Level of Assistance: Contact guard Dynamic Standing-Comments: for standing marches General Assessments: Cognition Overall Cognitive Status: Within Functional Limits Orientation Level: Oriented X4 Following Commands: Follows all commands and directions without difficulty Treatment: Therapeutic Exercise Therapeutic Exercise Activity 1: Guided pt through seated marches, LAQ, heel toe raises, and hip adduction into pillow 15x ea sitting EOB. Therapeutic Exercise Activity 2: Standing marches w/RW 7x, limited reps d/t complaints of nausea and requesting to return to sitting. Attempted further activity after seated rest however pt stating, That's all I can do today, I'm done. Pt asking to return to bed. Stairs Stairs: No Bed Mobility Bed Mobility: Yes Bed Mobility 1 Bed Mobility From 1: Supine Bed Mobility Type 1: To Bed Mobility to 1: Short sit Level of Assistance 1: Contact guard Bed Mobility Comments 1: HOB raised, when returning to bed pt demoing ability to scoot to HOB by pushing through LE's after assembly instructions writer flattened HOB. Transfers Transfer: Yes Transfer 1 Transfer From 1: Sit Transfer Type 1: To Transfer to 1: Stand Technique 1: Sit to stand, Stand to sit Transfer Device 1: rolling walker Transfer Level of Assistance 1: Contact guard Outcome Assessments 6 Clicks (Mobility) Help from another person turning from your back to your side while in a flat bed without using bedrails: A little Help from another person moving from lying on your back to sitting on the side of a flat bed without using bedrails: A little Help from another person moving to and from a bed to a chair (including a wheelchair): A little Help from another person standing up from a chair using your arms (e.g. wheelchair or bedside chair): A little Help from another person to walk in hospital room: A little Help from another person climbing 3-5 steps with a railing: A lot Mobility 6 Clicks T-Score: 17 Assessment/Plan PT Assessment PT Assessment/[employer] Summary: Pt limited this date again by nausea. Continue per POC as pt tolerates to improve ease with mobility tasks Prognosis: Good Plan Level of assist: 1 assist Treatment/Interventions: Functional transfer training, LE strengthening/ROM, Bed mobility, Balance training, Gait training, Endurance training PT Plan: Skilled PT PT Frequency: 5 times per week until discharge & PRN PT Discharge Recommendations: USP facility placement Goals: Multi-Disciplinary Problems (from Physical Therapy) Active Problems Problem: PT Misc Start Date: 01/29/23 Goal Start Date Expected End Date End Date Patient to demonstrate the ability to complete all bed mobility independently with HOB flat 01/29/23 02/12/23 -- Goal Start Date Expected End Date End Date Patient to demonstrate the ability to complete all transfers independently with use of RW only as needed 01/29/23 02/12/23 -- Goal Start Date Expected End Prateek (more content not included)...[facility]05-01-2023 NoteOccupational Therapy Occupational Therapy Evaluation Patient Name: Perla Ibarra : 1955 Today's Date: 01/30/2023 Discharge Recommendation: SNF with potential for home if activity tolerance improves She presented to outside hospital with acute onset respiratory distress with ECG changes concerning for anterior ischemia. She was transferred to [facility] for further evaluation and is currently intubated and sedated on propofol infusion. Echocardiogram shows severely depressed LVEF with anterolateral/apical wall motion abnormalities. Biomarkers are mildly elevated and she is noted to be hyponatremic with sodium level of 124. Initiated session with pt supine in bed. Pt tolerated ROM and MMT, supine to sit to stand, static standing for brief change and kiley hygiene, stand to sit EOB, adjusted socks using figure 4 technique, and sit to supine. Concluded session with pt supine in bed with call light in reach. RN approved pt for OOB activity this date and pt agreeable. Time In: 1215 Time Out: 1232 General Subjective: Pt cooperative with mod-max encouragement. Session attempted X 5 and limited d/t nausea/dry heaving and transport present to take pt to MRI. Family/Caregiver Present: No Patient Active Problem List Diagnosis Acute coronary syndrome ([facility]/HCC) Acute respiratory failure with hypoxia and hypercapnia ([facility]/HCC) Parainfluenza infection Acute systolic heart failure ([facility]/HCC) Past Medical History: Diagnosis Date CHF (congestive heart failure) ([facility]) COPD (chronic obstructive pulmonary disease) ([facility]) NSTEMI (non-ST elevated myocardial infarction) ([facility]) PNA (pneumonia) History reviewed. No pertinent surgical history. Precautions Precautions Medical Precautions: telemetry, oxygen, IV, Purewick, fall risk Pain Pain Assessment Pain Assessment: 0-10 Pain Score: 7 Pain Type: Acute pain Pain Location: Abdomen Cognition Cognition Overall Cognitive Status: Within Functional Limits Orientation Level: Oriented X4 General Assessment General Assessment Hearing: WFL Home Living Home Living Type of Home: House Lives With: Significant other Home Adaptive Equipment: None Home Layout: One level, Laundry in basement Home Access: Stairs to enter with rails Entrance Stairs-Rails: Both Entrance Stairs-Number of Steps: 4 Bathroom Shower/Tub: Tub/shower unit Bathroom Toilet: Handicapped height Bathroom Equipment: None Prior Level of Function Prior Function Level of [place]: Independent with ADLs and functional transfers, Independent with homemaking with ambulation (drives) Prior Functional Mobility: Independent without device Prior IADLs Static Sitting Balance Static Sitting Balance Static Sitting-Balance Support: No upper extremity supported, Feet supported Static Sitting-Level of Assistance: Distant supervision Dynamic Sitting Balance Dynamic Sitting Balance Dynamic Sitting-Balance Support: Unilateral upper extremity supported, Feet supported Dynamic Sitting-Balance: Forward lean Dynamic Sitting Balance-Level of Assistance: Close supervision Static Standing Balance Static Standing Balance Static Standing-Balance Support: Left upper extremity supported (bed rail) Static Standing-Level of Assistance: Close supervision Dynamic Standing Balance Dynamic Standing Balance Dynamic Standing-Comments: pt declined d/t nausea ADL ADL Eating Assistance: Independent Grooming Assistance: Stand by Bathing Assistance: Minimal UE Dressing Assistance: Stand by UE Dressing Deficit: (managing gown during brief change) LE Dressing Assistance: Minimal LE Dressing Deficit: (adjusted socks using figure 4 with SBA, A for brief chnage) Toileting Assistance with Device: Moderate Toileting Deficit: (Purewick, soiled brief, A from OT and RN to complete brief change) Bed Mobility Bed Mobility Bed Mobility: Yes Bed Mobility 1 Bed Mobility From 1: Supine Bed Mobility Type 1: To and from Bed Mobility to 1: Short sit Level of Assistance 1: Minimum assistance Bed Mobility Comments 1: HOB raised, A to raise trunk Transfers Transfers Transfer: Yes Transfer 1 Transfer From 1: Bed, Sit Transfer Type 1: To and from Transfer to 1: Stand Technique 1: Sit to stand, Stand to sit Transfer Device 1: (bed rail) Transfer Level of Assistance 1: Contact guard Objective General Visit Information: General Subjective: Pt cooperative with mod-max encouragement. Session attempted X 5 and limited d/t nausea/dry heaving and transport present to take pt to MRI. Family/Caregiver Present: No General Assessments ADL Eating Assistance: Independent Grooming Assistance: Stand by Bathing Assistance: Minimal UE Dressing Assistance: Stand by UE Dressing Deficit: (managing gown during brief change) LE Dressing Assistance: Minimal LE Dressing Deficit: (adjusted socks using figure 4 with SBA, A for erinn (more content not included)...[facility]05-01-2023 Note Subjective lying in bed without acute respiratory distress, consent for anxiety symptoms related to MRI ordered for right renal mass evaluation. Afebrile overnight. Objective Patient Vitals for the past 24 hrs: BP Temp Temp src Pulse Resp SpO2 01/30/23 1052 109/57 -- -- 89 -- -- 01/30/23 1000 -- -- -- -- -- 99 % 01/30/23 0807 120/57 -- -- 85 -- 94 % 01/30/23 0700 113/56 36.7 ???C (98 ???F) Oral 100 18 92 % 01/30/23 0432 109/63 36.7 ???C (98.1 ???F) -- 98 20 93 % 01/29/23 2335 103/82 -- -- 91 19 98 % 01/29/23 2300 -- -- -- 93 21 94 % 01/29/23 2200 119/59 -- -- 81 20 97 % 01/29/23 2100 105/58 -- -- 78 (!) 28 96 % 01/29/23 2000 98/62 36.3 ???C (97.3 ???F) -- 90 15 97 % 01/29/23 1900 86/54 -- -- 97 21 92 % 01/29/23 1800 112/68 -- -- 94 17 97 % 01/29/23 1750 119/79 -- -- 93 18 96 % 01/29/23 1700 106/73 -- -- 103 17 95 % 01/29/23 1600 109/88 36 ???C (96.8 ???F) Temporal 89 19 96 % 01/29/23 1500 123/66 -- -- 99 24 92 % 01/29/23 1400 119/83 -- -- 96 24 94 % 01/29/23 1300 117/75 -- -- 101 22 93 % 01/29/23 1200 99/72 36 ???C (96.8 ???F) Temporal 88 22 94 % 01/29/23 1130 114/58 -- -- 86 18 96 % Physical Exam General: No acute resting respiratory distress, anxious about MRI Respiratory: Bilateral vesicular breathing, no significant crepitation or rhonchi Cardiovascular: S1 plus S2 Lab Results Component Value Date NA 130 (L) 01/30/2023 K 3.7 01/30/2023 CL 93 (L) 01/30/2023 ANIONGAP 11 01/30/2023 BUN 25 01/30/2023 CREATININE 0.64 01/30/2023 CALCIUM 8.6 01/30/2023 MG 2.1 01/30/2023 PHOS 3.1 01/30/2023 Lab Results Component Value Date BILITOT 0.3 01/25/2023 ALKPHOS 56 01/25/2023 AST 31 01/25/2023 ALT 36 01/25/2023 PROT 6.7 01/25/2023 ALBUMIN 3.1 (L) 01/25/2023 Lab Results Component Value Date WBC 15.38 (H) 01/30/2023 RBC 4.30 01/30/2023 HGB 10.6 (L) 01/30/2023 HCT 32.6 (L) 01/30/2023 MCV 75.8 (L) 01/30/2023 MCH 24.7 (L) 01/30/2023 MCHC 32.5 01/30/2023 RDW 14.5 01/30/2023 NEUTOPHILPCT 89.1 (H) 01/27/2023 LYMPHOPCT 5.2 (L) 01/27/2023 MONOPCT 4.8 (L) 01/27/2023 EOSPCT 0.0 01/27/2023 BASOPCT 0.1 01/27/2023 NEUTROABS 7.96 (H) 01/27/2023 LYMPHSABS 0.46 (L) 01/27/2023 MONOSABS 0.43 01/27/2023 EOSABS 0.00 01/27/2023 BASOSABS 0.01 01/27/2023 PLT 330 01/30/2023 NRBC 0.0 01/27/2023 === Imaging Orders, Last 24 Hours === XR CHEST 1 VIEW - Impression - *Removal of endotracheal tube and nasogastric tube. No pulmonary edema or significant consolidation. There may be minimal right basilar atelectasis and small right effusion. Stable cardiomediastinal silhouette. Dextroconvex scoliosis. Electronically signed: Tripp Munoz. Nutrition Screen Assessment/plan: 1. Acute hypoxic respiratory failure: Multifactorial with underlying COPD, active smoking along with suspected viral pneumonia. Improved, required BiPAP in MICU now on nasal cannula for oxygen supplementation, goal oxygen saturation 90 to 92%. 2. Acute systolic CHF exacerbation: Still on IV Lasix 40 mg daily with goal-directed medical therapy with Coreg, Farxiga, spironolactone and ARNI, continue daily electrolytes renal function monitoring as well as she is on IV Lasix therapy. Cardiology team following along and managing decompensated heart failure. Ejection fraction 40% on 2D echocardiogram. 3. Nonischemic cardiomyopathy with EF 35 to 40%: Continue goal-directed medical therapy for chronic systolic CHF with outpatient cardiology follow-up after discharge. 4. Nonobstructive CAD: Continue aspirin, Lipitor and Coreg. 5. Right renal mass with suspected thrombus extension into right renal vein: Urology recommended MRI for further delineation today. No subcu heparin or Lovenox at this time due to hematuria associated right renal mass. PT and OT on board for rehabilitation evaluation.[facility]04-30-[address] Ivan Womack, Dr. Liam Brambila, Dr. Uri Conner, Dr. Caio Asher , Dr. Ariana Thompson, Maddie Ann MD Patient: Perla Ibarra Date of : 1955 ATTENDING: Dr. Ann CHIEF COMPLAINT: Right renal mass HISTORY OF PRESENT ILLNESS: The patient is a 67 y.o. female who presented as a transfer from an outside hospital due to shortness of breath. She was found to have elevated proBNP with elevated troponin, lactate, hyponatremia, parainfluenza virus. She developed worsening shortness of breath and hypoxic respiratory failure requiring intubation. She was admitted to [facility] ICU for escalation of care, found to have NSTEMI. She was initially treated with heparin infusion with Zosyn and Levaquin as well as oxygen. She underwent cardiac catheterization with cardiology and was found to have nonobstructive CAD, placed on baby aspirin as well as high intensity statin. She was also reporting left-sided abdominal pain which prompted a CT abdomen and pelvis with and without IV contrast. It did show a large right renal mass which was enhancing, approximately 13 cm in largest dimension, with extension into right renal vein. There was no hydronephrosis. Left kidney appeared normal. She did have a CTA chest which showed patchy multifocal nodular opacity in both lungs with mild prominence of the lymph nodes, possibly from viral infection. Patient reports no right flank pain, no gross hematuria, no flank mass. She denies any urologic history, in fact, she denies any medical history except TB as a child, has not seen a doctor before this episode since she was a child. She does not take any medications except for multivitamin, and started on baby aspirin during this hospital admission. She denies any surgical history, no scars on her abdomen. At baseline, she reports she is able to do activities of daily living, able to ambulate, lives with a roommate. She does have a significant smoking history but quit approximately 20 years ago. On labs, creatinine 0.77 at baseline, urinalysis with microscopy did show over 100 RBC, 21-50 WBC, no urine culture obtained. Patient's old records, notes and chart reviewed and summarized above. Past Medical History: Past Medical History: Diagnosis Date CHF (congestive heart failure) ([facility]) COPD (chronic obstructive pulmonary disease) ([facility]) NSTEMI (non-ST elevated myocardial infarction) ([facility]) PNA (pneumonia) Past Surgical History: History reviewed. No pertinent surgical history. Previous surgery: none Medications: atorvastatin, 20 mg, oral, Nightly carvedilol, 3.125 mg, oral, BID with meals cefTRIAXone, 1 g, intravenous, q24h dapagliflozin, 5 mg, oral, Daily doxycycline mnohydrate, 100 mg, oral, BID famotidine, 20 mg, intravenous, BID Or famotidine, 20 mg, oral, BID [START ON 01/30/2023] furosemide, 40 mg, intravenous, Daily heparin (porcine), 5,000 Units, subcutaneous, BID insulin aspart, 0-20 Units, subcutaneous, q6h lidocaine, 1 patch, topical (top), Daily nicotine, 1 patch, transdermal, Daily Oxygen Therapy, , inhalation, Continuous prednisoLONE, 40 mg, oral, Daily sacubitriL-valsartan, 1 tablet, oral, BID spironolactone, 12.5 mg, oral, q PM sulfur hexafluoride microsphr, 2 mL, intravenous, Once in imaging PRN medications: glucose OR dextrose 50 % in water (D50W), ipratropium-albuteroL, polyethylene glycol Allergies: Erythromycin Social History: Social History Socioeconomic History Marital status: Significant Other Spouse name: Not on file Number of children: Not on file Years of education: Not on file Highest education level: Not on file Occupational History Not on file Tobacco Use Smoking status: Every Day Types: Cigarettes Smokeless tobacco: Never Substance and Sexual Activity Alcohol use: Never Drug use: Never Sexual activity: Never Other Topics Concern Not on file Social History Narrative Not on file Social Determinants of Health Financial Resource Strain: Unknown Difficulty of Paying Living Expenses: Patient refused Food Insecurity: Unknown Worried About Running Out of Food in the Last Year: Patient refused Ran Out of Food in the Last Year: Not on file Transportation Needs: Unknown Lack of Transportation (Medical): Patient refused Lack of Transportation (Non-Medical): Not on file Physical Activity: Not on file Stress: Not on file Social Connections: Not on file Intimate Partner Violence: Unknown Fear of Current or Ex-Partner: Patient refused Emotionally Abused: Not on file Physically Abused: Not on file Sexually Abused: Not on file Housing Stability: Unknown Unable to Pay for Housing in the Last Year: Not on file Number of Places Lived in the Last Year: Not on file Unstable Housing in the Last Year: Patient refused Family History: No family history on file. Previous Urologic Family history: none REVIE (more content not included)...[facility] 01-29-2023 NoteProblem: Fall Risk Goal: LTG-Increase mobility and strength Outcome: Progressing Note: Patient working with PT and OT, doing strengthening exercises in bed. Problem: Respiratory - Adult Goal: Achieves optimal ventilation and oxygenation Flowsheets (Taken 01/28/20232099 by Chastity Velasquez RN) Achieves optimal ventilation and oxygenation: Assess for changes in respiratory status Oxygen supplementation based on oxygen saturation or arterial blood gases Position to facilitate oxygenation and minimize respiratory effort Assess for changes in mentation and behavior Initiate smoking cessation protocol as indicated Encourage broncho-pulmonary hygiene including cough, deep breathe, incentive spirometry Assess the need for suctioning and aspirate as needed Assess and instruct to report shortness of breath or any respiratory difficulty Respiratory therapy support as indicated Problem: Skin/Tissue Integrity - Adult Goal: Skin integrity remains intact Flowsheets (Taken 01/28/20232099 by Chastity Velasquez RN) Skin integrity remains intact: Monitor for areas of redness and/or skin breakdown Assess vascular access sites hourly Change oxygen saturation probe site as needed If on nasal continuous positive airway pressure, respiratory therapy assesses nares and determine need for appliance change or resting period as needed Problem: Musculoskeletal - Adult Goal: Return mobility to safest level of function Flowsheets (Taken 01/28/20232099 by Chastity Velasquez RN) Return mobility to safest level of function: Assess patient stability and activity tolerance for standing, transferring and ambulating with or without assistive devices Assist with transfers and ambulation using safe patient handling equipment as needed Ensure adequate protection for wounds/incisions during mobilization Obtain physical therapy/occupational therapy consults as needed Apply continuous passive motion per provider or physical therapy orders to increase flexion toward goal Instruct patient/family in ordered activity level Problem: Gastrointestinal - Adult Goal: Minimal or absence of nausea and vomiting Flowsheets (Taken 01/28/20232099 by Chastity Velasquez RN) Minimal or absence of nausea and vomiting: Administer IV fluids as ordered to ensure adequate hydration Maintain NPO status until nausea and vomiting are resolved Nasogastric tube to low intermittent suction as ordered Administer ordered antiemetic medications as needed Provide nonpharmacologic comfort measures as appropriate Advance diet as tolerated, if ordered Nutrition consult to assist patient with adequate nutrition and appropriate food choices Problem: Genitourinary - Adult Goal: Absence of urinary retention Flowsheets (Taken 01/29/2023 1825) Absence of urinary retention: Assess patient???s ability to void and empty bladder Monitor intake/output and perform bladder scan as needed Problem: Metabolic/Fluid and Electrolytes - Adult Goal: Electrolytes maintained within normal limits Flowsheets (Taken 01/28/20232099 by Chastity Velasquez RN) Electrolytes maintained within normal limits: Monitor labs and assess patient for signs and symptoms of electrolyte imbalances Administer electrolyte replacement as ordered Monitor response to electrolyte replacements, including repeat lab results as appropriate Fluid restriction as ordered Instruct patient on fluid and nutrition restrictions as appropriate Goal: Glucose maintained within prescribed range Flowsheets (Taken 01/28/20232099 by Chastity Velasquez RN) Glucose maintained within prescribed range: Monitor blood glucose as ordered Assess for signs and symptoms of hyperglycemia and hypoglycemia Assess barriers to adequate nutritional intake and initiate nutrition consult as needed Administer ordered medications to maintain glucose within target range Instruct patient on self management of diabetes and initiate consult as needed Problem: Hematologic - Adult Goal: Maintains hematologic stability Flowsheets (Taken 01/28/20232099 by Chastity Velasquez RN) Maintains hematologic stability: Assess for signs and symptoms of bleeding or hemorrhage Monitor labs for bleeding or clotting disorders Administer blood products/factors as ordered The patient is Moderately Stable - Low risk of patient condition declining or worsening The patient's goals for the shift include comfort, getting stronger The clinical goals for the shift include stable vitals, increased movement Over the shift, the patient did not make progress toward the following goals. Barriers to progression include hemodynamic instability with getting from bed to chair. Recommendations to address these barriers include slowly increasing amount of activity.[facility]04-30-2023 NotePhysical Therapy Physical Therapy Evaluation Patient Name: Perla Ibarra : 1955 Today's Date: 01/29/2023 Patient initially presented to [facility] 01/24/2023 with SOB. Elevated tropnin and (+) for parainfluenza. Ultimately with worsening respiratory status, ended up intubated at OSH and transferred to [facility] 01/25/2023, extubated 01/27/2023. Tachycardic throughout evaluation with HR 100's at rest and up to 130's with transfer to the chair. General Subjective: RN approved PT evaluation and OOB activity this date. Patient in bed upon arrival, agreeable to evaluation. Upon completion, patient left up in the chair with RN present, call light within reach. Patient Active Problem List Diagnosis Acute coronary syndrome ([facility]/HCC) Acute respiratory failure with hypoxia and hypercapnia ([facility]/HCC) Parainfluenza infection Acute systolic heart failure ([facility]/HCC) Past Medical History: Diagnosis Date CHF (congestive heart failure) ([facility]/HCC) COPD (chronic obstructive pulmonary disease) ([facility]/HCC) NSTEMI (non-ST elevated myocardial infarction) ([facility]/HCC) PNA (pneumonia) History reviewed. No pertinent surgical history. Precautions Precautions Medical Precautions: telemetry, oxygen, IV, Purewick, fall risk Pain Pain Assessment Pain Assessment: 0-10 Pain Score: 2 Pain Type: Acute pain Pain Location: Abdomen Pain Orientation: Lower Cognition Cognition Overall Cognitive Status: Within Functional Limits Arousal/Alertness: Appropriate responses to stimuli Orientation Level: Oriented X4 Following Commands: Follows all commands and directions without difficulty General Assessment General Assessment Hearing: WNL Home Living Home Living Type of Home: House Lives With: Significant other Home Adaptive Equipment: None Home Layout: One level, Laundry in basement Home Access: Stairs to enter with rails Entrance Stairs-Rails: Both Entrance Stairs-Number of Steps: 4 Bathroom Shower/Tub: Tub/shower unit Bathroom Equipment: Raised toilet seat without rails Prior Level of Function Prior Function Level of [place]: Independent with ADLs and functional transfers, Independent with homemaking with ambulation Prior Functional Mobility: Independent without device ADL Assistance: Independent Homemaking Assistance: Independent Vision Basic Assessment Activity Tolerance Activity Tolerance Endurance: Stage II General Assessments Activity Tolerance Endurance: Stage II Sensation Light Touch: No apparent deficits Sharp/Dull: No apparent deficits Coordination Movements are Fluid and Coordinated: Yes Postural Control Postural Control: Within Functional Limits Static Sitting Balance Static Sitting-Balance Support: Feet supported, Right upper extremity supported, Left upper extremity supported Static Sitting-Level of Assistance: Close supervision Dynamic Sitting Balance Dynamic Sitting-Balance Support: Feet supported, Right upper extremity supported, Left upper extremity supported Dynamic Sitting Balance-Level of Assistance: Close supervision Static Standing Balance Static Standing-Balance Support: Right upper extremity supported (WATCH CRYSTAL GRINDER x1) Static Standing-Level of Assistance: Minimum assistance Dynamic Standing Balance Dynamic Standing-Balance Support: Right upper extremity supported (WATCH CRYSTAL GRINDER x1) Dynamic Standing Balance-Level of Assistance: Minimum assistance Functional Assessments Bed Mobility Bed Mobility: Yes Bed Mobility 1 Bed Mobility From 1: Supine Bed Mobility Type 1: To Bed Mobility to 1: Short sit Level of Assistance 1: Contact guard Bed Mobility Comments 1: Able to complete with CGA - HOB ~40 degrees Transfers Transfer: Yes Transfer 1 Transfer From 1: Bed Transfer Type 1: To Transfer to 1: Chair with arms Technique 1: Stand pivot Transfer Device 1: none (WATCH CRYSTAL GRINDER x1) Transfer Level of Assistance 1: Minimum assistance Trials/Comments 1: Min (A) x1 via [employer] GRINDER to complete stand pivot transfer to patient's left. Patient with adequate strength to complete though Min (A) for mild balance support due to dizziness and elevated HR Ambulation Ambulation: No (Would be capable, though deferred at this time due to reports of worsening lightheadedness/nausea/tachycardiac in 130's) Stairs Stairs: No Extremity Assessments RUE Assessment RUE Assessment: Within Functional Limits (Grossly 4/5) LUE Assessment LUE Assessment: Within Functional Limits (Grossly 4/5) RLE Assessment RLE Assessment: Within Functional Limits (Grossly 4+/5 except for hip flexion 4/5) LLE Assessment LLE Assessment: Within Functional Limits (Grossly 4+/5 except for hip flexion 4/5) Outcome Assessments 6 Clicks (Mobility) Help from another person turning from your back to your side while in a flat bed without using bedrails: A little Help from another person moving from lying on your back to sitting on the side of a flat bed with (more content not included)...[facility]04-30-2023 NoteUTP CARDIOLOGY PROGRESS NOTE Reason for follow up: HFrEF, Nonischemic cardiomyopathy, Subjective Brother at bedside. Awake and alert, c/o nausea after taking meds without much food, was OOB to chair caused fatigue and some dyspnea, congested cough, wearing O2 NC. Denies CPOE, lightheadedness, palpitations. She confirms she has not received medical care for some time. Says as a child she had tuberculosis, was required to take meds with home isolation closely followed by local healthcare which was quite traumatic for her, also that her mother was institutionalized because of tuberculosis. Taking no prescription medications, only Tylenol and multivitamin. Smoking and episodic trouble breathing she thought was from past lung scarring. Discussed cardiac findings to date, NICM, HFrEF, usual medical and non medical treatments, need for low sodium diet, limit fluids as OP, take meds reliably, FU with labs and cardiology. She is willing to do all of these. Prefers OPFU in home area of [place]. Discussed smoking cessation--she is willing. Tele: Sinus rhythm/tachycardia with PVCs at times--no afib/flutter ALLERGIES Allergies Allergen Reactions Erythromycin Unknown Per report from roderick CURRENT MEDS ALPRAZolam, 0.5 mg, oral, Once atorvastatin, 20 mg, oral, Nightly carvedilol, 3.125 mg, oral, BID with meals cefTRIAXone, 1 g, intravenous, q24h dapagliflozin, 5 mg, oral, Daily doxycycline mnohydrate, 100 mg, oral, BID famotidine, 20 mg, intravenous, BID Or famotidine, 20 mg, oral, BID furosemide, 40 mg, intravenous, q12h heparin (porcine), 5,000 Units, subcutaneous, BID insulin aspart, 0-20 Units, subcutaneous, q6h lidocaine, 1 patch, topical (top), Daily nicotine, 1 patch, transdermal, Daily Oxygen Therapy, , inhalation, Continuous prednisoLONE, 40 mg, oral, Daily sacubitriL-valsartan, 1 tablet, oral, BID spironolactone, 12.5 mg, oral, q PM sulfur hexafluoride microsphr, 2 mL, intravenous, Once in imaging PRN medications: glucose OR dextrose 50 % in water (D50W), ipratropium-albuteroL, polyethylene glycol Objective Patient Vitals for the past 24 hrs: BP Temp Temp src Pulse Resp SpO2 Weight 01/29/23 1300 117/75 -- -- 101 22 93 % -- 01/29/23 1200 99/72 36 ???C (96.8 ???F) Temporal 88 22 94 % -- 01/29/23 1130 114/58 -- -- 86 18 96 % -- 01/29/23 1100 102/63 -- -- 84 19 95 % -- 01/29/23 1045 104/60 -- -- 75 16 97 % -- 01/29/23 1030 105/63 -- -- 91 17 95 % -- 01/29/23 1015 81/51 -- -- 101 24 95 % -- 01/29/23 1000 89/60 -- -- (!) 112 (!) 28 95 % -- 01/29/23 0927 100/56 -- -- (!) 122 (!) 28 93 % -- 01/29/23 0910 125/71 -- -- (!) 121 26 -- -- 01/29/23 0900 113/85 -- -- (!) 114 21 98 % -- 01/29/23 0800 104/54 36 ???C (96.8 ???F) Temporal 104 23 96 % -- 01/29/23 0700 106/72 -- -- 103 22 95 % -- 01/29/23 0600 108/59 -- -- 97 20 93 % 70 kg (154 lb 5.2 oz) 01/29/23 0500 (!) 98/49 -- -- 87 13 94 % -- 01/29/23 0400 145/80 36 ???C (96.8 ???F) Temporal 97 22 94 % -- 01/29/23 0300 122/69 -- -- 93 20 94 % -- 01/29/23 0200 120/66 -- -- 101 21 94 % -- 01/29/23 0100 133/78 -- -- (!) 111 20 96 % -- 01/29/23 0000 136/71 36.4 ???C (97.5 ???F) Temporal 94 21 93 % -- 01/28/23 2300 130/74 -- -- 88 23 94 % -- 01/28/23 2200 135/70 -- -- 88 (!) 27 93 % -- 01/28/23 2100 133/67 -- -- 91 20 93 % -- 01/28/23 2000 131/70 36 ???C (96.8 ???F) Temporal 82 22 96 % -- 01/28/23 1900 129/68 -- -- 82 26 95 % -- 01/28/23 1800 141/71 -- -- 102 (!) 29 93 % -- 01/28/23 1700 132/71 -- -- 83 17 95 % -- 01/28/23 1626 130/72 -- -- 94 22 96 % -- 01/28/23 1600 129/72 36.1 ???C (97 ???F) Temporal 88 25 (!) 89 % -- 01/28/23 1500 147/69 -- -- 100 22 96 % -- BP 117/75 Pulse 101 Temp 36 ???C (96.8 ???F) (Temporal) Resp 22 Ht 1.676 m (5' 5.98 ) Wt 70 kg (154 lb 5.2 oz) SpO2 93% BMI 24.92 kg/m??? General: Awake, alert, good spirits. NAD Eyes: anicteric sclera. Non-injected conjunctiva. No xanthelasmas Neck: No elevated JVP. No carotid bruit Pulm: Breath sounds generally diminished bilaterally with coarse rhonchi, no wheezing or crackles Cards: HRRR , NL S1, S2. No S3 or S4 gallop. Murmur: none Abd: Soft, Nontender, physiologic bowel sounds are present Extr: Lower extremity edema: none. DP pulses present bilaterally Skin: warm, dry, well perfused Neuro: A&Ox3, No gross deficits Lab Results Component Value Date NA 134 (L) 01/28/2023 K 4.0 01/29/2023 CL 93 (L) 01/28/2023 ANIONGAP 13 01/28/2023 BUN 27 (H) 01/28/2023 CREATININE 0.77 01/28/2023 CALCIUM 9.1 01/28/2023 MG 2.3 01/29/2023 PHOS 2.5 01/28/2023 Lab Results Component Value Date BILITOT 0.3 01/25/2023 ALKPHOS 56 01/25/2023 AST 31 01/25/2023 ALT 36 01/25/2023 PROT 6.7 01/25/2023 ALBUMIN 3.1 (L) 01/25/2023 Lab Results Component Value Date CHOLESTEROL 113 (L) 01/25/2023 TRIGLYCERIDES 108 01/25/2023 TRIGLYCERIDES 107 01/25/2023 HDL 46 01/25/2023 LDL CALC 46 01/25/2023 Lab Results C (more content not included)...[facility]04-30-2023 Note Attestation signed by Isabel Nava MD at 01/29/2023 3:42 PM Patient seen with resident Ramo Wilson MD. I agree with the findings as described with the following additions or corrections: Acute hypoxic respiratory failure multifactorial ETT /MV needing NIPPV, improved transitioned to CT tolerating well not in distress or shortness of breath while sitting in bed, but becomes SOB with minimum exertion. Significant smoking history, Chest radiology remarkable for smoking related justin disease, airt-rapping, emphysema, with viral panel +ve for Para-influenza, no significant infiltrates or consolidation in chest imaging, emphysema can be appreciated, most probably patient had hypercapnic respiratory failure resulting in ETT / MV in OSH, imprvoved extubated her at [facility] tolerating well. Patient can be transferred to step down care today. Critical Care services were required for the patient due to critical condition: Acute hypoxic respiratory failure needing NIPPV, COPD exacerbation treatment, viral pneumonia bronchiolitis, NSTEMI with acute decompensated heart failure, appreciate cardiology input. I personally provided direct critical care services consisting of: Hypoxia and COPD management. Critical Care minutes were 50, which excludes time performing separately billed procedures, updating family, and teaching. Medical ICU Progress Note Patient - Perla Ibarra Age - 67 y.o. - 1955 [facility] # - [id number] Date of Admission - 01/25/2023 7:51 PM HPI/Hospital Course She initially presented to the [facility] on 01/24 with shortness of breath. Ultimately was found to have elevated proBNP along with elevation of troponin, lactate and hyponatremia with being positive for parainfluenza virus. She developed worsening shortness of breath and hypoxic respiratory failure and required intubation. Due to NSTEMI along with hypoxic respiratory failure she was admitted to [facility] ICU for escalation of care. She was initially treated with heparin infusion along with empiric antibiotics piperacillin/tazobactam and Levaquin and supplemental oxygen, methylprednisolone and DuoNeb. EKG did not show significant ischemic changes and currently on monitor she is sinus with PACs. Prior to intubation patient had following blood gas on 2 L/min nasal cannula: 7.25, 54.7, 70.6, 91.5% Extubated 01/27/23 SUBJECTIVE Patient was seen and examined at bedside this morning Patient is on 2 L nasal cannula, NAD, offers no complaint. Net I's/O's since admission is -6.6 L No overnight events OBJECTIVE Vitals height is 1.676 m (5' 5.98 ) and weight is 70 kg (154 lb 5.2 oz). Her temporal temperature is 36 ???C (96.8 ???F). Her blood pressure is 106/72 and her pulse is 103. Her respiration is 22 and oxygen saturation is 95%. Temp: [36 ???C (96.8 ???F)-36.4 ???C (97.5 ???F)] 36 ???C (96.8 ???F) Heart Rate: [81-131] 103 Resp: [12-35] 22 BP: (98-178)/(49-91) 106/72 Physical Exam: Constitutional: General: She is not in acute distress.On 2L O2 nasal cannula Appearance: She is not ill-appearing or diaphoretic. Eyes: General: No scleral icterus. Right eye: No discharge. Left eye: No discharge. Pupils: Pupils are equal, round, and reactive to light. Cardiovascular: Rate and Rhythm: Normal rate and regular rhythm. Pulses: Normal pulses. Heart sounds: No murmur heard. No gallop. Pulmonary: Effort: No respiratory distress. Breath sounds: No stridor. No wheezing or rales. Abdominal: General: Abdomen is flat. Musculoskeletal: Right lower leg: Edema present. Left lower leg: Edema present. Skin: General: Skin is warm. Capillary Refill: Capillary refill takes less than 2 seconds. Coloration: Skin is not jaundiced. Findings: No bruising or lesion. Neurological: Mental Status: She is alert, following commands, with no neurological deficit Weight: Admission weight: 72.2 kg (159 lb 2.8 oz) Wt Readings from Last 1 Encounters: 01/29/23 70 kg (154 lb 5.2 oz) Input/Output: Intake/Output Summary (Last 24 hours) at 01/29/2023 0820 Last data filed at 01/29/2023 0605 Gross per 24 hour Intake 800 ml Output 2000 ml Net -1200 ml Lab Results ABG: Results from last 7 days Lab Units 01/27/23 0413 01/26/23 0900 01/25/23 2221 PH ART pH 7.42 7.36 7.34* CBC: Results from last 7 days Lab Units 01/28/23 0418 01/27/23 0609 01/26/23 0432 WBC AUTO 10*3/uL 12.75* 8.93 12.99* HEMOGLOBIN g/dL 8.9* 8.4* 8.4* HEMATOCRIT % 27.5* 25.8* 26.0* PLATELETS AUTO 10*3/uL 308 239 243 Coagulation: Results from last 7 days Lab Units 01/25/23 2245 APTT Seconds 29.4 INR 1.01 Metabolic Panel: Results from last 7 days Lab Units 01/28/23 2327 01/28/23 0418 01/27/23 0609 POTASSIUM mmol/L 3 (more content not included)...[facility]04-29-2023 NotePOA paperwork completed, Spoke about patient's discharge plan. Spoke about SNF, home healthcare and Outpatient therapies. Patient hopeful to do therapies as an outpatient at discharge.[facility]04-29-2023 Note Attestation signed by Isabel Nava MD at 01/29/2023 3:42 PM Patient seen with resident Ramo Wilson MD. I agree with the findings as described with the following additions or corrections: Acute hypoxic respiratory failure multifactorial ETT /MV needing NIPPV, improved transitioned to CT tolerating well not in distress or shortness of breath while sitting in bed, but becomes SOB with minimum exertion. Significant smoking history, Chest radiology remarkable for smoking related justin disease, airt-rapping, emphysema, with viral panel +ve for Para-influenza, no significant infiltrates or consolidation in chest imaging, emphysema can be appreciated, most probably patient had hypercapnic respiratory failure resulting in ETT / MV in OSH, imprvoved extubated her at [facility] tolerating well. Critical Care services were required for the patient due to critical condition: Acute hypoxic respiratory failure needing NIPPV, COPD exacerbation treatment, viral pneumonia bronchiolitis, NSTEMI with acute decompensated heart failure, appreciate cardiology input. I personally provided direct critical care services consisting of: Hypoxia and COPD management. Critical Care minutes were 50, which excludes time performing separately billed procedures, updating family, and teaching. Medical ICU Progress Note Patient - [facility]barra [facility] 67 [facility] 1955 [id number] Date of Admission - 01/25/2023 7:51 PM HPI/Hospital Course She initially presented to the [facility] on 01/24 with shortness of breath. Ultimately was found to have elevated proBNP along with elevation of troponin, lactate and hyponatremia with being positive for parainfluenza virus. She developed worsening shortness of breath and hypoxic respiratory failure and required intubation. Due to NSTEMI along with hypoxic respiratory failure she was admitted to [facility] ICU for escalation of care. She was initially treated with heparin infusion along with empiric antibiotics piperacillin/tazobactam and Levaquin and supplemental oxygen, methylprednisolone and DuoNeb. Noted she did have a failed attempt at a right IJ central line and had a right femoral central line placed along with having a Ochoa catheter placed at outside facility. EKG did not show significant ischemic changes and currently on monitor she is sinus with PACs. Prior to intubation patient had following blood gas on 2 L/min nasal cannula: 7.25, 54.7, 70.6, 91.5% EKG showing biphasic T waveWould likely ST depression and leads V2, V3, V4. SUBJECTIVE Patient was seen and examined at bedside this morning Patient was extubated yesterday, on 2 L nasal cannula, NAD, offers no complaint. Still on Lasix 40 twice daily, net I's/O's since admission is -4.5 L No overnight events OBJECTIVE Vitals height is 1.676 m (5' 5.98 ) and weight is 72.2 kg (159 lb 2.8 oz). Her temperature is 36.8 ???C (98.2 ???F). Her blood pressure is 149/78 and her pulse is 104. Her respiration is 28 (abnormal) and oxygen saturation is 95%. Temp: [36.8 ???C (98.2 ???F)-37.1 ???C (98.8 ???F)] 36.8 ???C (98.2 ???F) Heart Rate: [55-104] 104 Resp: [13-37] 28 BP: (106-155)/(66-105) 149/78 FiO2 (%): [30 %] 30 % Physical Exam: Constitutional: General: She is not in acute distress. Appearance: She is not ill-appearing or diaphoretic. Eyes: General: No scleral icterus. Right eye: No discharge. Left eye: No discharge. Pupils: Pupils are equal, round, and reactive to light. Neck: Comments: L internal jugular ecchymoses w/o purulence or swelling Cardiovascular: Rate and Rhythm: Normal rate and regular rhythm. Pulses: Normal pulses. Heart sounds: No murmur heard. No gallop. Pulmonary: Effort: No respiratory distress. Breath sounds: No stridor. No wheezing or rales. Abdominal: General: Abdomen is flat. Musculoskeletal: Right lower leg: Edema present. Left lower leg: Edema present. Skin: General: Skin is warm. Capillary Refill: Capillary refill takes less than 2 seconds. Coloration: Skin is not jaundiced. Findings: No bruising or lesion. Neurological: Mental Status: She is alert, following commands, with no neurological deficit Weight: Admission weight: 72.2 kg (159 lb 2.8 oz) Wt Readings from Last 1 Encounters: 01/26/23 72.2 kg (159 lb 2.8 oz) Input/Output: Intake/Output Summary (Last 24 hours) at 01/28/2023 0836 Last data filed at 01/28/2023 0725 Gross per 24 hour Intake 69.32 ml Output 4425 ml Net -4355.68 ml Ventilator: Settings Resp Rate (Set): 16 Vt (Set, mL): 450 mL Pressure Support (cm H2O): 8 cm H20 PEEP/CPAP (cm H2O): 8 cm H20 FiO2 (%): 30 % Waveform: Decelerating ramp Insp Flow (L/min): 50 L/min Trigger Sensitivity Flow (L/min): 2 L/min Humidifi (more content not included)...[facility] 01-28-2023 NoteUTP CARDIOLOGY PROGRESS NOTE Reason for follow up: HFrEF, Nonischemic cardiomyopathy, Subjective Awake and alert, eating lunch, tolerating solids and liquids. Says breathing is improved, denies palpitations, chest discomfort, lightheadedness, lower extremity edema. Very grateful for the care she has received. She confirms she has not received medical care for some time. Says as a child she had tuberculosis, was required to take meds with home isolation closely followed by local healthcare which was quite traumatic for her, also that her mother was institutionalized because of tuberculosis. Taking no prescription medications, only Tylenol and multivitamin. Smoking and episodic trouble breathing she thought was from past lung scarring. Tele: Sinus rhythm.tachycardia ALLERGIES Allergies Allergen Reactions Erythromycin Unknown Per report from lando CURRENT MEDS cefTRIAXone, 1 g, intravenous, q24h doxycycline mnohydrate, 100 mg, oral, BID famotidine, 20 mg, intravenous, BID Or famotidine, 20 mg, oral, BID furosemide, 40 mg, intravenous, q12h heparin (porcine), 5,000 Units, subcutaneous, BID insulin aspart, 0-20 Units, subcutaneous, q6h nicotine, 1 patch, transdermal, Daily Oxygen Therapy, , inhalation, Continuous potassium chloride, 30 mL, oral, Once prednisoLONE, 40 mg, oral, Daily sulfur hexafluoride microsphr, 2 mL, intravenous, Once in imaging lactated Ringer's, 75 mL/hr, Last Rate: Stopped (01/26/23 1000) PRN medications: glucose OR dextrose 50 % in water (D50W), ipratropium-albuteroL, polyethylene glycol Objective Patient Vitals for the past 24 hrs: BP Temp Pulse Resp SpO2 01/28/23 0700 149/78 -- 104 (!) 28 95 % 01/28/23 0600 -- 36.8 ???C (98.2 ???F) -- -- -- 01/28/23 0500 146/80 -- 102 23 96 % 01/28/23 0400 142/78 -- 99 20 98 % 01/28/23 0300 146/76 -- 99 24 97 % 01/28/23 0200 152/78 -- 99 24 98 % 01/28/23 0100 148/79 -- 102 26 98 % 01/28/23 0000 145/67 37 ???C (98.6 ???F) 97 (!) 28 96 % 01/27/23 2319 -- -- -- -- 98 % 01/27/23 2300 145/80 -- 94 25 99 % 01/27/23 2200 148/73 -- 94 23 99 % 04/28/23 2100 141/74 -- 97 (!) 28 96 % 01/27/23 2000 155/79 36.9 ???C (98.4 ???F) 96 23 98 % 01/27/23 1957 -- -- -- -- 98 % 01/27/23 1900 140/71 -- 89 22 97 % 01/27/23 1800 (!) 139/105 -- 96 (!) 37 99 % 01/27/23 1700 150/75 -- 95 18 99 % 01/27/23 1600 -- -- 90 (!) 28 98 % 01/27/23 1500 135/78 -- 76 (!) 30 96 % 01/27/23 1400 -- -- 89 24 94 % 01/27/23 1300 131/76 -- 79 (!) 29 98 % 01/27/23 1245 -- -- -- -- 100 % 01/27/23 1240 -- -- 74 25 100 % 01/27/23 1125 -- -- 62 19 100 % 01/27/23 1106 -- -- 74 20 100 % 01/27/23 0900 106/66 37.1 ???C (98.8 ???F) 55 13 96 % BP 149/78 Pulse 104 Temp 36.8 ???C (98.2 ???F) Resp (!) 28 Ht 1.676 m (5' 5.98 ) Wt 72.2 kg (159 lb 2.8 oz) SpO2 95% BMI 25.70 kg/m??? General: Awake, alert, good spirits. NAD Eyes: anicteric sclera. Non-injected conjunctiva. No xanthelasmas Neck: No elevated JVP. No carotid bruit Pulm: Breath sounds generally diminished bilaterally with coarse rhonchi, no wheezing or crackles Cards: HRRR , NL S1, S2. No S3 or S4 gallop. Murmur: none Abd: Soft, Nontender, physiologic bowel sounds are present Extr: Lower extremity edema: none. DP pulses present bilaterally Skin: warm, dry, well perfused Neuro: A&Ox3, No gross deficits Lab Results Component Value Date NA 136 01/28/2023 K 3.1 (L) 01/28/2023 CL 97 (L) 01/28/2023 ANIONGAP 12 01/28/2023 BUN 27 (H) 01/28/2023 CREATININE 0.85 01/28/2023 CALCIUM 8.9 01/28/2023 MG 2.1 01/28/2023 PHOS 3.0 01/28/2023 Lab Results Component Value Date BILITOT 0.3 01/25/2023 ALKPHOS 56 01/25/2023 AST 31 01/25/2023 ALT 36 01/25/2023 PROT 6.7 01/25/2023 ALBUMIN 3.1 (L) 01/25/2023 Lab Results Component Value Date CHOLESTEROL 113 (L) 01/25/2023 TRIGLYCERIDES 108 01/25/2023 TRIGLYCERIDES 107 01/25/2023 HDL 46 01/25/2023 LDL CALC 46 01/25/2023 Lab Results Component Value Date BNP 1,491 (H) 01/25/2023 Lab Results Component Value Date TSH 0.38 01/25/2023 No results found for: DIGOXIN LVL No results found for: HGBA1C Lab Results Component Value Date WBC 12.75 (H) 01/28/2023 RBC 3.63 (L) 01/28/2023 HGB 8.9 (L) 01/28/2023 HCT 27.5 (L) 01/28/2023 MCV 75.8 (L) 01/28/2023 MCH 24.5 (L) 01/28/2023 MCHC 32.4 01/28/2023 RDW 14.2 01/28/2023 NEUTOPHILPCT 89.1 (H) 01/27/2023 LYMPHOPCT 5.2 (L) 01/27/2023 MONOPCT 4.8 (L) 01/27/2023 EOSPCT 0.0 01/27/2023 BASOPCT 0.1 01/27/2023 NEUTROABS 7.96 (H) 01/27/2023 LYMPHSABS 0.46 (L) 01/27/2023 MONOSABS 0.43 01/27/2023 EOSABS 0.00 01/27/2023 BASOSABS 0.01 01/27/2023 PLT 308 01/28/2023 NRBC 0.0 01/27/2023 No X-ray results found for the past 24 hours CV Testing: Encounter Date: 01/25/23 Electrocardiogram, 12-lead Result Value Ventricular Rate 66 Atrial Rate 66 MS Interval 144 QRS DURATION 88 QT Interval 524 QTC CALCULATION(BAZETT) 549 (more content not included)...[facility]04-28-2023 Note01/27/23 1700 Referral Data Referral Source Physician Referral Reason Other (Comment) (heart failure) Patient Information Primary Caregiver Self Activities of Daily Living Assistive Device Not applicable Living Arrangement (Current/Prior to Hospitalization) Private residence Ambulation Independent Dressing Independent Feeding Independent Behavior Oriented Discharge Planning Support Systems Spouse/significant other (Kim Scott S.O of 47 yrs.) Type of Residence/Post Acute Needs Private residence Will patient need Precert for Post Acute needs? No Patient's goal for discharge home SW met with patient to discuss discharge needs. Patient was life flighted to [facility] after CHF. Patient worried about costs of care. Questions answered regarding Medicare coverage and supplement coverage. Patient lives in a 1 level home with 4 entry step. She is not but has a S.O of 47 yrs. They have no children. Her parents are . She has 1 brother living and she would not want him to be her decision maker if ever needed. Patient would like her S.O and her niece to be her POA. Packet given for her to review and complete when she is ready. Patient does not have a PCP. She has not seen a doctor in 20 yrs per report. PCP will be needed at discharge. Patient is currently in MICU and was just taken off of vent support today. She is on o2 and has not yet been out of bed. SW provided HHC and SNF list depending on needs. Patient state she will not go to placement and states her goal is to go home at discharge. She anticipates no needs. SW to follow after she is able to get out of bed to determine anydischarge needs. SW to follow. [facility]04-28-2023 Note Attestation signed by Robbi Hnederson MD at 01/27/2023 6:41 PM I personally saw and examined the patient on the same date of service as resident/fellow Dr Spencer. I discussed the findings and therapeutic plan with the resident/fellow Dr Spencer. I agree with the documentation, except for any edits/updates below. Teaching Physician's Revisions: Robbi Henderson MD, MPH, [facility], [facility], [facility] Interventional Cardiology Pager Email: [email or web address] Subjective No acute event overnight. Seen and examined at bedside in the a.m. Was on mechanical ventilation,awake and alert, and planned to extubation today. Status post cardiac cath yesterday that showed patent coronary arteries, and elevated right-sided pressures, likely secondary to left heart disease. Objective Patient Vitals for the past 24 hrs: BP Temp Temp src Pulse Resp SpO2 01/27/23 1245 -- -- -- -- -- 100 % 01/27/23 1240 -- -- -- 74 25 100 % 01/27/23 1125 -- -- -- 62 19 100 % 01/27/23 1106 -- -- -- 74 20 100 % 01/27/23 0900 106/66 37.1 ???C (98.8 ???F) -- 55 13 96 % 01/27/23 0819 -- -- -- 63 21 97 % 01/27/23 0800 118/59 37 ???C (98.6 ???F) -- 58 16 98 % 01/27/23 0700 113/61 36.9 ???C (98.4 ???F) -- 54 14 97 % 01/27/23 0408 -- 36.6 ???C (97.9 ???F) -- 58 16 98 % 01/27/23 0325 -- -- -- 57 13 97 % 01/26/23 2305 -- -- -- 58 16 97 % 01/26/23 2100 138/81 36.4 ???C (97.5 ???F) -- 73 23 97 % 01/26/23 2000 102/71 36.1 ???C (97 ???F) -- 55 13 97 % 01/26/23 1921 -- -- -- 72 21 100 % 01/26/23 1900 93/62 35.9 ???C (96.6 ???F) -- 60 15 97 % 01/26/23 1800 99/63 36 ???C (96.8 ???F) -- 57 16 97 % 01/26/23 1745 -- -- -- 59 16 97 % 01/26/23 1730 102/60 -- -- 62 13 96 % 01/26/23 1715 107/77 -- -- 67 17 97 % 01/26/23 1700 85/58 -- -- 53 15 98 % 01/26/23 1645 89/57 -- -- 59 15 98 % 01/26/23 1630 90/63 36.8 ???C (98.2 ???F) Esophageal 58 14 100 % Physical Exam Constitutional: General: She is not in acute distress. Appearance: She is not ill-appearing or diaphoretic. HENT: Head: Normocephalic. Nose: No rhinorrhea. Mouth/Throat: Mouth: Mucous membranes are dry. Eyes: General: No scleral icterus. Right eye: No discharge. Left eye: No discharge. Pupils: Pupils are equal, round, and reactive to light. Neck: Comments: L internal jugular ecchymoses w/o purulence or swelling Cardiovascular: Rate and Rhythm: Normal rate and regular rhythm. Pulses: Normal pulses. Heart sounds: No murmur heard. No gallop. Pulmonary: Effort: No respiratory distress. Breath sounds: No stridor. No wheezing or rales. Abdominal: General: Abdomen is flat. Genitourinary: Comments: Ochoa catheter with pale yellow urine Musculoskeletal: Right lower leg: Edema present. Left lower leg: Edema present. Skin: General: Skin is warm. Capillary Refill: Capillary refill takes less than 2 seconds. Coloration: Skin is not jaundiced. Findings: No bruising or lesion. Neurological: Mental Status: She is alert. Lab Results Component Value Date NA 130 (L) 01/27/2023 K 4.1 01/27/2023 CL 96 (L) 01/27/2023 ANIONGAP 12 01/27/2023 BUN 29 (H) 01/27/2023 CREATININE 1.03 01/27/2023 CALCIUM 8.6 01/27/2023 MG 2.7 01/27/2023 PHOS 4.5 01/27/2023 Lab Results Component Value Date BILITOT 0.3 01/25/2023 ALKPHOS 56 01/25/2023 AST 31 01/25/2023 ALT 36 01/25/2023 PROT 6.7 01/25/2023 ALBUMIN 3.1 (L) 01/25/2023 Lab Results Component Value Date WBC 8.93 01/27/2023 RBC 3.43 (L) 01/27/2023 HGB 8.4 (L) 01/27/2023 HCT 25.8 (L) 01/27/2023 MCV 75.2 (L) 01/27/2023 MCH 24.5 (L) 01/27/2023 MCHC 32.6 01/27/2023 RDW 14.1 01/27/2023 NEUTOPHILPCT 89.1 (H) 01/27/2023 LYMPHOPCT 5.2 (L) 01/27/2023 MONOPCT 4.8 (L) 01/27/2023 EOSPCT 0.0 01/27/2023 BASOPCT 0.1 01/27/2023 NEUTROABS 7.96 (H) 01/27/2023 LYMPHSABS 0.46 (L) 01/27/2023 MONOSABS 0.43 01/27/2023 EOSABS 0.00 01/27/2023 BASOSABS 0.01 01/27/2023 PLT 239 01/27/2023 NRBC 0.0 01/27/2023 === Imaging Orders, Last 24 Hours === CT CHEST ANGIOGRAM W AND/OR WO IV CONTRAST - Impression - Unusual appearance of the kidneys and right renal vein and IVC. There appears to be fullness on the right side, distention of the right renal collecting system, and possible asymmetric dense nephrogram left kidney Dedicated abdominal pelvic CT suggested to check for renal mass, renal vein thrombus, or other underlying pathology No visible pulmonary embolism or aortic dissection Patchy multifocal nodular opacity in both lungs with mild prominence of the lymph nodes in the pericarinal and left greater than right hilum. Pattern could be seen with viral or atypical infection, granulomatous condition, or other inflammatory process Repeat chest CT suggested after the acute presentation clears within 3 months (more content not included)...[facility]04-28-2023 Note Attestation signed by Alex Sellers MD at 01/31/2023 5:43 PM Patient was seen and examined with the resident on the same date of service, I discussed the findings and therapeutic plan with the resident/fellow, I agree with the documentation, assessment and plan as above except for any edits/updates below. Alex Sellers MD Pulmonary and critical care Medical ICU Progress Note Patient - Perla Ibarra Age - 67 y.o. - 1955 Date of Admission - 01/25/2023 7:51 PM HPI/Hospital Course She initially presented to the [facility] on 01/24 with shortness of breath. Ultimately was found to have elevated proBNP along with elevation of troponin, lactate and hyponatremia with being positive for parainfluenza virus. She developed worsening shortness of breath and hypoxic respiratory failure and required intubation. Due to NSTEMI along with hypoxic respiratory failure she was admitted to [facility] ICU for escalation of care. She was initially treated with heparin infusion along with empiric antibiotics piperacillin/tazobactam and Levaquin and supplemental oxygen, methylprednisolone and DuoNeb. Noted she did have a failed attempt at a right IJ central line and had a right femoral central line placed along with having a Ochoa catheter placed at outside facility. EKG did not show significant ischemic changes and currently on monitor she is sinus with PACs Prior to intubation patient had following blood gas on 2 L/min nasal cannula: 7.25, 54.7, 70.6, 91.5% EKG showing biphasic T waveWould likely ST depression and leads V2, V3, V4 SUBJECTIVE Patient was examined on bedside this morning. She was on mechanical ventilation. No acute concerns at that time. OBJECTIVE Vitals height is 1.676 m (5' 5.98 ) and weight is 72.2 kg (159 lb 2.8 oz). Her temperature is 37.1 ???C (98.8 ???F). Her blood pressure is 106/66 and her pulse is 62. Her respiration is 19 and oxygen saturation is 100%. Temp: [35.9 ???C (96.6 ???F)-37.1 ???C (98.8 ???F)] 37.1 ???C (98.8 ???F) Heart Rate: [52-74] 62 Resp: [13-23] 19 BP: (85-138)/(52-81) 106/66 FiO2 (%): [30 %] 30 % Physical Exam: Constitutional: General: She is not in acute distress. Appearance: She is not ill-appearing or diaphoretic. HENT: Head: Normocephalic. Nose: No rhinorrhea. Mouth/Throat: Mouth: Mucous membranes are dry. Eyes: General: No scleral icterus. Right eye: No discharge. Left eye: No discharge. Pupils: Pupils are equal, round, and reactive to light. Neck: Comments: L internal jugular ecchymoses w/o purulence or swelling Cardiovascular: Rate and Rhythm: Normal rate and regular rhythm. Pulses: Normal pulses. Heart sounds: No murmur heard. No gallop. Pulmonary: Effort: No respiratory distress. Breath sounds: No stridor. No wheezing or rales. Abdominal: General: Abdomen is flat. Genitourinary: Comments: Ochoa catheter with pale yellow urine Musculoskeletal: Right lower leg: Edema present. Left lower leg: Edema present. Skin: General: Skin is warm. Capillary Refill: Capillary refill takes less than 2 seconds. Coloration: Skin is not jaundiced. Findings: No bruising or lesion. Neurological: Mental Status: She is alert. Psychiatric: Comments: Unable to assess Weight: Admission weight: 72.2 kg (159 lb 2.8 oz) Wt Readings from Last 1 Encounters: 01/26/23 72.2 kg (159 lb 2.8 oz) Input/Output: Intake/Output Summary (Last 24 hours) at 01/27/2023 1213 Last data filed at 01/27/2023 1000 Gross per 24 hour Intake 1213.54 ml Output 3125 ml Net -1911.46 ml Ventilator: Settings Resp Rate (Set): 16 Vt (Set, mL): 450 mL Pressure Support (cm H2O): 8 cm H20 PEEP/CPAP (cm H2O): 8 cm H20 FiO2 (%): 30 % Waveform: Decelerating ramp Insp Flow (L/min): 50 L/min Trigger Sensitivity Flow (L/min): 2 L/min Humidification: Heat and moisture exchanger Vent Mode: Continuous positive airway pressure FiO2 (%): [30 %] 30 % S RR: [16-21] 16 S VT: [450 mL] 450 mL PEEP/CPAP (cm H2O): [8 cm H20] 8 cm H20 MS SUP: [8 cm H20] 8 cm H20 Pmean (cm H2O): [11-445] 11 Lab Results ABG: pH, Arterial Date Value Ref Range Status 01/27/2023 7.42 7.35 - 7.45 pH Final pCO2, Arterial Date Value Ref Range Status 01/27/2023 40 35 - 48 mmHg Final pO2, Arterial Date Value Ref Range Status 01/27/2023 78 (L) 83 - 100 mmHg Final HCO3, Arterial Date Value Ref Range Status 01/27/2023 25.9 21.0 - 28.0 mEq/L Final pH, Ulices Date Value Ref Range Status 01/25/2023 7.30 (L) 7.31 - 7.41 Final pCO2, Ulices Date Value Ref Range Status 01/25/2023 50 40 - 50 mmHg Final pO2, Ulices Date Value Ref Range Status 01/25/2023 40 35 - 45 mmHg Final HCO3, Venous Date Value Ref Range Status 01/25/2023 24.6 mmol/L Final (more content not included)...[facility]04-27-2023 NoteAdult Nutrition Assessment: Name: Perla Ibarra Date: 1955 Date of Visit: 01/26/23 Admission Dx: NSTEMI, acute hypoxic respiratory failure, recnet parainfluenza infection, new onset acute systolic decompensated HF Reason for assessment: high risk Information obtained from: medical record, nursing, physician, and transfer record History reviewed. No pertinent past medical history. Current Medications: aspirin, 81 mg, oral, Daily cefTRIAXone, 1 g, intravenous, q24h doxycycline mnohydrate, 100 mg, oral, BID famotidine, 20 mg, intravenous, BID Or famotidine, 20 mg, oral, BID insulin aspart, 0-20 Units, subcutaneous, q6h methylPREDNISolone sod suc (PF), 40 mg, intravenous, q8h sulfur hexafluoride microsphr, 2 mL, intravenous, Once in imaging dexmedeTOMIDine, 0.2-1.5 mcg/kg/hr, Last Rate: 0.5 mcg/kg/hr (01/26/23 1410) heparin, 0-28 Units/kg/hr, Last Rate: Stopped (01/26/23 1510) lactated Ringer's, 75 mL/hr, Last Rate: Stopped (01/26/23 1000) norepinephrine, 0.01-2 mcg/kg/min, Last Rate: Stopped (01/26/23 0945) propofol, 0-70 mcg/kg/min, Last Rate: 20 mcg/kg/min (01/26/23 1433) Labs: 0 Lab Value Date/Time POCGLU 121 (H) 01/26/2023 1203 BUN 25 01/26/2023 0432 CREATININE 0.99 01/26/2023 0432 NA 124 (LL) 01/26/2023 0432 K 3.7 01/26/2023 0432 PHOS 4.5 01/26/2023 0432 MG 2.6 01/26/2023 043 HGB 8.4 (L) 01/26/2023 043 WBC 12.99 (H) 01/26/2023 043 CHOL 113 (L) 01/25/20232244 HDL 46 01/25/20235 Other: MAP 70 I/O: Intake/Output Summary (Last 24 hours) at 01/26/2023 1516 Last data filed at 01/26/2023 1400 Gross per 24 hour Intake 1114.49 ml Output 605 ml Net 509.49 ml Allergies: Allergies Allergen Reactions Erythromycin Unknown Per report from [facility] Nutrition Problems: Abdominal Assessment: Last BM watery, brown 01/26/23 Skin Integrity: skin intact Other factors: mechanically ventilated Anthropometrics: Height: 167.6 cm (5' 5.98 ) Weight: 72.2 kg (159 lb 2.8 oz) BMI (Calculated): 25.7 Wt change: 74.5 kg [facility] IBW: 59 kg Nutrition Assessment: Nutrition history: physically unable to obtain history Dietary Orders (From admission, onward) Start Ordered 01/25/232139 Diet NPO Diet effective now Comments: No exceptions 01/25/232146 Nutrition Risk: High Nutrition Needs: Needs based on: ideal body weight Calorie needs: 5065-9562 kcals/day based on Equation: 25-30 kcal/kg , [facility] Yrijxjom=[id number] sonny Protein needs: 70-88 g/day based on 1.2-1.5 g/kg Fluid needs: 1500 ml/day (HF, hyponatremic, UOP 5-50 ml/hr today) Nutrition Diagnosis: inadequate oral food/beverage intake related to respiratory failure as evidenced by NPO, mechanical vent support Propofol Rate: 13.5 ml/hr Kcals from Propofol: 356 sonny Tube Feed Recommendations: Tube feed type: continuous Tube Feed Formula: Peptamen AF TF Start Rate/Bolus amount: 10 ml/hr Increase by: 10 ml q 4 hr TF Goal Rate/Bolus amount: 40 ml/hr TF Ztceq=3476 sonny Total Kcals/day (TF+propofol)=1508 sonny Total Protein g/day=73 g TF free simce=111 ml Treatment Plan: Plan cardiac cath. If remains intubated or unable to take PO diet next 24-48 hr. Admitted 01/24/23 [place] & intubated prior to transfer. NPO x 2 d. Post extubation, 2g Na & follow up prior to discharge for nutrition counseling r/t new HF dx. Goals: Nutrition Goals: wt maintenance and maintain visceral proteinOhioHealth Grant Medical Center04-27-2023 NotePatient: Perla Ibarra Procedure Information Date/Time: 01/26/23 1438 Procedures: Coronary angiography Right heart cath (Bilateral) Location: [facility] OFFICE EXECUTIVE 3 / [facility] (Cath) Providers: Ammy Bridges MD Clinical information reviewed: Tobacco Allergies Meds Med Hx Surg Hx Fam Hx Soc Hx Physical Exam Airway Comments: Intubated and sedated, on mechanical ventilator Cardiovascular Dental Pulmonary Abdominal Anesthesia Plan ASA 4 other (Intubated and sedated on propofol infusionb) Anesthetic plan and risks discussed with healthcare power of mice raiser. Use of blood products discussed with healthcare power of mice raiser who consented to blood products. Plan discussed with attending. [facility]Mar[facility]04-27-[facility]23 Note Pt admitted to hospital for acute coronary syndrome; NSTEMI; respiratory failure requiring intubation. No echo on file; no echo scheduled as of today. Pt is eligible for therapy with NSTEMI dx. I will watch for updates and follow up with pt, if appropriate. DAYANA Medrano metal tank erector Outpatient Coordinator [facility]UnMar[facility]04-27-2023 Note Attestation signed by Alex Sellers MD at 01/27/2023 9:15 AM The patient was evaluated with the resident/fellow Critical Care services were required for the patient due to critical condition: Acute hypercapnic respiratory failure requiring intubation and mechanical ventilation COPD exacerbation Parainfluenza pneumonia NSTEMI Hypervolemic, hypotonic, hyponatremia likely secondary to heart failure in the setting of ACS Acute systolic heart failure with reduced ejection fraction with EF 35-40%With echo obtained at [facility] on January 25 I personally provided direct critical care services consisting of: Intubation and MV, adjust settings based on blood gas Antibiotics and steroids Titration of vasoactive agents for goal map of 60-65 Heparin infusion Left heart cath completed no blockage Will attempt SBT in am Critical Care minutes were 35, which excludes time performing separately billed procedures, updating family, and teaching. Medical ICU Progress Note Patient - Perla [facility]barra [facility] - 67 [facility] 1955 [id number] Date of Admission - 01/25/2023 7:51 PM HPI/Hospital Course She initially presented to the [facility] on 01/24 with shortness of breath. Ultimately was found to have elevated proBNP along with elevation of troponin, lactate and hyponatremia with being positive for parainfluenza virus. She developed worsening shortness of breath and hypoxic respiratory failure and required intubation. Due to NSTEMI along with hypoxic respiratory failure she was admitted to [facility] ICU for escalation of care. She was initially treated with heparin infusion along with empiric antibiotics piperacillin/tazobactam and Levaquin and supplemental oxygen, methylprednisolone and DuoNeb. Noted she did have a failed attempt at a right IJ central line and had a right femoral central line placed along with having a Ochoa catheter placed at outside facility. EKG did not show significant ischemic changes and currently on monitor she is sinus with PACs Prior to intubation patient had following blood gas on 2 L/min nasal cannula: 7.25, 54.7, 70.6, 91.5% EKG showing biphasic T waveWould likely ST depression and leads V2, V3, V4 SUBJECTIVE Patient was examined on bedside this morning. She was on mechanical ventilation. No acute concerns at that time. OBJECTIVE Vitals height is 1.676 m (5' 5.98 ) and weight is 72.2 kg (159 lb 2.8 oz). Her temperature is 36.2 ???C (97.2 ???F). Her blood pressure is 96/55 and her pulse is 71. Her respiration is 16 and oxygen saturation is 97%. Temp: [35 ???C (95 ???F)-36.7 ???C (98.1 ???F)] 36.2 ???C (97.2 ???F) Heart Rate: [61-84] 71 Resp: [14-19] 16 BP: (77-101)/(50-58) 96/55 FiO2 (%): [30 %] 30 % Physical Exam: Constitutional: General: She is not in acute distress. Appearance: She is not ill-appearing or diaphoretic. HENT: Head: Normocephalic. Nose: No rhinorrhea. Mouth/Throat: Mouth: Mucous membranes are dry. Comments: 7.5 ET tube, OG tube Eyes: General: No scleral icterus. Right eye: No discharge. Left eye: No discharge. Pupils: Pupils are equal, round, and reactive to light. Neck: Comments: L internal jugular ecchymoses w/o purulence or swelling Cardiovascular: Rate and Rhythm: Normal rate and regular rhythm. Pulses: Normal pulses. Heart sounds: No murmur heard. No gallop. Pulmonary: Effort: No respiratory distress. Breath sounds: No stridor. No wheezing or rales. Abdominal: General: Abdomen is flat. Genitourinary: Comments: Ochoa catheter with pale yellow urine Musculoskeletal: Right lower leg: Edema present. Left lower leg: Edema present. Skin: General: Skin is warm. Capillary Refill: Capillary refill takes less than 2 seconds. Coloration: Skin is not jaundiced. Findings: No bruising or lesion. Comments: Right inguinal femoral line without erythema surrounding Neurological: Mental Status: She is alert. Psychiatric: Comments: Unable to assess Weight: Admission weight: 72.2 kg (159 lb 2.8 oz) Wt Readings from Last 1 Encounters: 01/26/23 72.2 kg (159 lb 2.8 oz) Input/Output: Intake/Output Summary (Last 24 hours) at 01/26/2023 0803 Last data filed at 01/26/2023 0700 Gross per 24 hour Intake 994.49 ml Output 325 ml Net 669.49 ml Ventilator: Settings Resp Rate (Set): 16 Vt (Set, mL): 450 mL PEEP/CPAP (cm H2O): 8 cm H20 FiO2 (%): 30 % Waveform: Decelerating ramp Insp Flow (L/min): 50 L/min Trigger Sensitivity Flow (L/min): 2 L/min Humidification: Heat and moisture exchanger Vent Mode: Volume control/assist control FiO2 (%): [30 %] 30 % S RR: [16] 16 S VT: [450 mL] 450 mL PEEP/CPAP (cm H2O): [8 cm H20] 8 cm H20 Pmean (cm H2O): [13-16] 15 Lab Results ABG: pH, Natacha (more content not included)...[facility] 01-26-2023 Note Attestation signed by Alex Sellers MD at 01/27/2023 9:13 AM I was not present but assume all responsibility for the procedure. NOT BILLABLE. Central line insertion note, left internal jugular Procedure note for : Perla Ibarra Procedure indication: Central access for Delivery of vasoactive agent Preprocedure diagnosis: Shock Postprocedure diagnosis: Same Consent: This is viewed as an urgent/emergent procedure. 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 Using ultrasound the Left internal jugular vein was seen non pulsating. After the patient was draped and cleaned in usual fashion a sterile drape was placed over the patient. Sterile ultrasound gel was placed at site and using ultrasound covered with sterile probe introduced large bore needle into the vein after appropriate local numbing. Nonpulsatile dark venous blood was aspirated easily through the syringe. Syringe was removed and guidewire was inserted through the needle. Needle was then removed and ultrasound was used to confirm placement of the guidewire in the vein. Scalpel incision was then created along the tract of the guidewire followed by dilation. A previously flushed 7.5 Greek triple lumen catheter was then placed over the guidewire after dilator was removed. All ports aspirated dark venous blood easily and flushed. Line was sutured in place and sterile dressing was placed over. Estimated blood loss other than what was aspirated: Less than 5 cc Total aspirated blood approximately 8 cc - Anna Moreno DO 01/26/23 1:47 AM -PGY-6 Pulmonary/Critical Care FellowOhioHealth Grant Medical Center 01-25-2023 NotePROCEDURE: XR CHEST 1 V DATE: 01/25/2023 1:51 PM CDT COMPARISONS: 01/24/2023 CLINICAL INDICATION: 67 years Female SHORTNESS OF BREATH FINDINGS: The cardiomediastinal silhouette and pulmonary vasculature are within normal limits. Again evidence of slight scattered increased interstitial markings which may represent chronic lung changes. There is no consolidating infiltrate to suggest pneumonia. There is no evidence of pleural effusion or pneumothorax. In the interval, an endotracheal tube has been placed. It appears to be in good position, with the tip lying approximately 3.5 cm cephalad to the [place]. An enteric tube is been placed. It is difficult to identify the caudal end of the enteric tube. The tip may be overlying the lower esophagus. Further evaluation of the position of this enteric tube is necessary IMPRESSION: Findings as discussed above. There appears to be chronic lung changes, stable. An endotracheal tube appears to be in good position Position of the enteric tube requires further imaging as discussed above History reports central line placement as and indication for this exam. I do not identify a central line on this exam. Procedural history and correlation is necessary. Electronically authenticated by: ANTONY VELASQUEZ Date: 2023-01-25 15:11[facility] HospitalEvaluation noteNo assessment information availableKettering Health [facility] Work Phone: Evaluation note* Diagnosis Onset Date Resolution Status Renal mass acute [facility] Work Phone: Evaluation note* Diagnosis Onset Date Resolution Status Clear cell renal cell carcinoma acute Encounter for antineoplastic chemotherapy acute Hyponatremia acute Iron deficiency anemia acute [facility] Work Phone: Progress note Author Aries Chavez [facility] July 31, 2023 2:29pm Note Date/Time July 31, 2023 1 :59pm [facility] [place] [id number] Hem/Onc Follow Up Note - OP Signed Patient: Perla Ibarra MR# : [id number] : 1955 Acct:[id number] Age/Sex: 67 / F Type: REG RCR Copies to: Nedra Perez, DEIDRE SELF,REFERRAL ~ Date of Service: 07/31/2023 Time of Service: 13:59 - Assessment & Plan (1) Renal mass Plan: Right renal mass, 15*9*12 cm with extension into right renal vein and inferior vena cava.. Likely a neoplasm. Has seen Dr. Ann in [place] for consideration of nephrectomy. No definitive retroperitoneal lymphadenopathy. Extensive reticulonodular opacities at the lung base not well assessed possibly sequela of infectious or inflammatory process. Superimposed small pulmonary metastasis is not excluded. She is not a good surgicaL CANDIDATE. we will attempt biopsy, if RCC confirmed, will start palliative PDL1 inhibitor and consider for debulking with this agent and reconsider ablative, surgical approaches down the line. She is iron deficient. will offer iv iron in jul 2023. she has blood loss. malabsorption. concern for a UA and hematuria. i told her to go to an ER for thick clots. She is on an aspirin for cardiac history. Follow Up Instructions: renal mass biopsy. start here, if not salazar is reasonable, [place]. f/u after. check ua and culture. offer her bactrim DS one tab bid x 10 days. get images uploaded to our system from [employer]. iv iron soon. cbc, cmp, iron studies in our system soon. - History of Present Illness Chief Complaint: Patient is here for a 1 month follow up with outside labs and radiology for review. States I am bleeding. HPI: 67-year-old female history of nonischemic cardiomyopathy, reduced ejection fraction, coronary artery disease, tobacco use, COPD, renal cell carcinoma. Sherequires 2 L of oxygen chronically. Outpatient medications include Lexapro, aspirin, atorvastatin, Entresto, spironolactone, metoprolol, Xanax as needed. Primary patient of Nedra Trujillo nurse practitioner in [place]. Also follows with Dr. Cervantes and Dr. Quach of urology. She had a hospitalization in December 2022 and ultimately was life flighted to [facility] for a myocardial infarction and ischemic heart disease. During that hospitalization work-up found a renal mass. Her ejection fraction 45% in December 2022 improved to 55 to 60% in May 2023. A CT of the abdomen and pelvis from January 28, 2023 showed a heterogeneously enhancing right renal mass 12.8 x 8.2 x 8.3 cm with extension into the right renal vein. No evidence of hydronephrosis. She has a right-sided IVCD. No definitive retroperitoneal lymphadenopathy. Follow-up MRI of the abdomen without IV contrast from 02/09/2023 notes a large right renal mass consistent with primary malignancy with tumor thrombus extension of the right renal vein and IVC which extends to the level of the inferior aspect of the intrahepatic IVC. This abuts the right psoas muscle without invasion of the muscle. Extensive reticulonodular opacities at the lung base not well assessed possibly sequela of infectious or inflammatory process. Superimposed small pulmonary metastasis is not excluded. CT of the chest angiogram from 01/26/2023 notes small to borderline enlarged lymph nodes in pericarinal and subcarinal region and left greater than right sided hilar region. Patchy multifocal nodular opacities throughout both upper and lower lungs left greater than right. 07/31/[address] last week. He was not eager for a big resection with her. She has had hematuria with clots for a few days. She does have some concerns she may not be emptying her bladder properly. no flank pain. she does have dysuria also. - Physical Exam ECOG PS:0 General : patient is alert and oriented to person place and time, no acute distress. Neck: no JVD or thyromegaly. Lymph: no cervical, supraclavicular, axillary adenopathy. Heart: regular rate and rhythm no murmurs rubs or gallops. Abdomen: soft, nontender,, nondistended, no hepatosplenomegaly. Lungs: clear to auscultation bilaterally. No wheezes, rales, rhonchi. Extremities: no clubbing cyanosis - Time with Patient Coordination of Care & Counseling Time: Greater than 50% of time spent with patient was for coordination of care (as documented) and [id number] counseling of patient and/or family. 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 - Family History Family History: Family History (Last Updated 06/23/23 @ 13:46 by Elayne Taylor) Mother Tuberculosis Multiple sclerosis Other Lymphoma - Social History Smoking Status: Former smoker Substance Use Type: None Additional Data - Additional Objective Data Height/Weight: Height 5 ft 5 in Weight 64.773 kg Vital Signs: 07/31/23 13:44 Temperature 97.7 F Pulse Rate [Right Brachial] 83 Respiratory Rate 20 Blood Pressure [Right Arm] 110/68 02 Sat by Pulse Oximetry 98 Oxygen Delivery Method Room Air - Home Medications and Allergies Allergies/Adverse Reactions: Allergies erythromycin base Allergy (Verified 06/23/23 13:28) Diarrhea Home Medications: Home Medications atorvastatin 20 mg tablet 20 mg PO QHS 06/21/23 [History Confirmed 07/31/23] escitalopram oxalate 5 mg tablet 5 mg PO QAM 06/21/23 [History Confirmed 07/31/23] metoprolol succinate 25 mg tablet,extended release 24 hr 25 mg PO DIRECTED 06/21/23 [History Confirmed 07/31/23] pantoprazole 40 mg tablet,delayed release 40 mg PO DAILY 06/21/23 [History Confirmed 07/31/23] sacubitril 24 mg-valsartan 26 mg tablet (Entresto) 1 tab PO BID 06/21/23 [History Confirmed 07/31/23] spironolactone 25 mg tablet 12.5 mg PO DIRECTED 06/21/23 [History Confirmed 07/31/23] famotidine 20 mg tablet 20 mg PO DAILY 07/31/23 [History Confirmed 07/31/23] tiotropium 2.5 mcg-olodaterol 2.5 mcg/actuation mist for inhalation (Stiolto Respimat) 2 puff inhalation DAILY 07/31/23 [History Confirmed 07/31/23] Dictated By: Aries Chavez II, DO DD/ 1359 Signed By: <Electronically signed by Aries Chavez II DO> 07/31/23 1429 [facility] Work Phone: Progress note Author Vannessa Perales [facility] October 05, 2023 2:09pm Note Date/Time October 05, 2023 1: 55pm [facility] [place] [address] Hem/Onc Follow Up Note - OP Signed Patient: Perla Ibarra MR# : [id number] : 1955 Acct:[id number] Age/Sex: 68 / F Type: REG RCR Copies to: DEIDRE Barrett SELF,REFERRAL ~ Subjective Date/Time of Service: Date of Service: 10/05/2023 Time of Service: 13:54 Chief Complaint: Patient is here for a 3 week follow up with labs for review, prior to Cycle 2 of Keytruda. Patient reports stomach pains and constipation after last treatment. HPI: 67-year-old female history of nonischemic cardiomyopathy, reduced ejection fraction, coronary artery disease, tobacco use, COPD, renal cell carcinoma. Sherequires 2 L of oxygen chronically. Outpatient medications include Lexapro, aspirin, atorvastatin, Entresto, spironolactone, metoprolol, Xanax as needed. 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 Also follows with Dr. Cervantes and Dr. Quach of urology. She had a hospitalization in December 2022 and ultimately was life flighted to [facility] for a myocardial infarction and ischemic heart disease. During that hospitalization work-up found a renal mass. Her ejection fraction 45% in December 2022 improved to 55 to 60% in May 2023. A CT of the abdomen and pelvis from January 28, 2023 showed a heterogeneously enhancing right renal mass 12.8 x 8.2 x 8.3 cm with extension into the right renal vein. No evidence of hydronephrosis. She has a right-sided IVCD. No definitive retroperitoneal lymphadenopathy. Follow-up MRI of the abdomen without IV contrast from 02/09/2023 notes a large right renal mass consistent with primary malignancy with tumor thrombus extension of the right renal vein and IVC which extends to the level of the inferior aspect of the intrahepatic IVC. This abuts the right psoas muscle without invasion of the muscle. Extensive reticulonodular opacities at the lung base not well assessed possibly sequela of infectious or inflammatory process. Superimposed small pulmonary metastasis is not excluded. CT of the chest angiogram from 01/26/2023 notes small to borderline enlarged lymph nodes in pericarinal and subcarinal region and left greater than right sided hilar region. Patchy multifocal nodular opacities throughout both upper and lower lungs left greater than right. 07/31/[address] Ann last week. He was not eager for a big resection with her. She has had hematuria with clots for a few days. She does have some concerns she may not be emptying her bladder properly. no flank pain. she does have dysuria also. 08/28/23 she had a bad experience with the biopsy, she thought they were unprofessional. 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 Rhabdoid. 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 no more hematuria following her abx course 5days. 09/12/23 she denies any recurrent bleeding/hematuria since completing her antibiotics previously, but did have some during/after iron infusions about a month ago having some mild left sided back pain that comes and goes eating and drinking ok. Is tired of eating chicken, but cannot tolerate beef. She will get heartburn if she has red meats. Denies n/v/d. Does get some constipation she is fatigued, has dyspnea on exertion. Has restless legs, some muscle cramps Her EKG notes sinus rhythm, possible right ventricular conduction delay. PVCs nolonger present labs with hgb 8.1. creatinine stable, sodium stable. We did not repeat iron studies but will plan this 10/05/2023: Perla is here for on treatment visit prior to Cycle 2 Pembrolizumab Tolerated cycle 1 well; no untoward side effects or obvious immunotherapy related toxicities She completed round of Injectafer in August 2023 and has persistent anemia; most recent hemoglobin was 8.5 Denies any current complaints of hematuria or obvious blood loss She was due to have iron labs rechecked and these were not done; so I will add those on today She is also waiting to hear on the delivery her Inlyta (Axitinib) - as she has not yet started this Otherwise, no new concerns - will proceed with Cycle 2 Pembrolizumab and touch base with pharmacy regarding Axitinib - Summary of Therapies Summary of Therapies: Pembrolizumab 200 mg IV Q3 weeks Cycle 1: 09/14/2023 Cycle 2: 10/05/2023 Subjective/ROS - Narrative: As per the HPI, otherwise 10 point review of systems is negative. 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 - Family History Family History: Family History (Last Updated 06/23/23 @ 13:46 by Elayne Taylor) Mother Tuberculosis Multiple sclerosis Other Lymphoma - Social History Smoking Status: Former smoker Substance Use Type: None Home Medications & Allergies Allergies erythromycin base Allergy (Verified 09/12/23 12:50) Diarrhea Home Medications atorvastatin 20 mg tablet 20 mg PO QHS 06/21/23 [History Confirmed 09/12/23] escitalopram oxalate 5 mg tablet 5 mg PO QAM 06/21/23 [History Confirmed 09/12/23] metoprolol succinate 25 mg tablet,extended release 24 hr 25 mg PO DIRECTED 06/21/23 [History Confirmed 09/12/23] pantoprazole 40 mg tablet,delayed release 40 mg PO DAILY 06/21/23 [History Confirmed 09/12/23] sacubitril 24 mg-valsartan 26 mg tablet (Entresto) 1 tab PO BID 06/21/23 [History Confirmed 09/12/23] spironolactone 25 mg tablet 12.5 mg PO DIRECTED 06/21/23 [History Confirmed 09/12/23] famotidine 20 mg tablet 20 mg PO DAILY 07/31/23 [History Confirmed 09/12/23] tiotropium 2.5 mcg-olodaterol 2.5 mcg/actuation mist for inhalation (Stiolto Respimat) 2 puff inhalation DAILY 07/31/23 [History Confirmed 09/12/23] glycopyrrolate 9 mcg-formoterol 4.8 mcg HFA aerosol inhaler (Bevespi Aerosphere)2 puff inhalation BID 08/28/23 [History Confirmed 08/28/23] axitinib 5 mg tablet (Inlyta) 5 mg PO BID #60 tabs 09/07/23 [Rx Confirmed 09/12/23] sulfamethoxazole 800 mg-trimethoprim 160 mg tablet (Bactrim DS) 1 tab PO BID #20tabs 09/19/23 [Rx] Objective - Resuscitation Status Resuscitation Status: Full Code - Height/Weight Height/Weight: Height 5 ft 5 in Weight 63.594 kg BSA for Today's Weight 1.73 - Vital Signs Vital Signs: 10/05/23 10:36 Temperature 97.9 F Pulse Rate [Right Brachial] 66 Respiratory Rate 20 Blood Pressure [Right Arm] 111/53 L 02 Sat by Pulse Oximetry 100 Oxygen Delivery Method Nasal Cannula Oxygen Flow Rate 2 - Distress Screening Distress Screen Results: RN Distress Screening Start: 06/23/23 13:11 Freq: Status: Active Protocol: Document 09/14/23 10:00 MR (Rec: 09/14/23 12:33 MR [id number]) Distress Screening Distress Score: 5 Day to Day Concerns Insurance Physical Concerns Pain,Feeling tired or a lack of energy Nutritional Concerns Weight gain,Healthy eating Emotional Concerns Worry,Nervousness,Feeling uncertain about the future Distress Screening Total 5 Distress score of 4 or more discussed Yes with patient? Distress screening follow up: patient navigator notified Physical Exam Narrative: ECOG PS:1 (utilizes walker - chronic oxygen) Pain: occasional flank pain - 3/10 General : patient is alert and oriented to person place and time, no acute distress. Neck: no JVD or thyromegaly. Lymph: no cervical, supraclavicular, axillary adenopathy. Heart: regular rate and rhythm no murmurs rubs or gallops. Abdomen: soft, nontender,, nondistended, normoactive bowel sounds Lungs: clear to auscultation bilaterally. No wheezes, rales, rhonchi. On 2L O2 via nc Extremities: no clubbing cyanosis R flank mass is large and palpable. - ECOG Performance Status ECOG Score: 1 Results - Labs Labs: Diagram of Most Recent CBC and CMP 10/04/23 14:53 10/04/23 14:53 Labs - Last 7 Days 10/05/23 11:37: Iron 26 L, TIBC 239 L, Iron Saturation 10.9 L, Transferrin 171 L, Ferritin 994.8 H 10/04/23 14:53: PHA Creatinine Clear 59.72, Sodium 125 L, Potassium 4.7, Chloride 94 L, Carbon Dioxide 26.2, Anion Gap 9.5, BUN 17, Creatinine 0.75, Est GFR (CKD- EPI) > 60.0, Glucose 101 H, Calcium 8.9, Total Bilirubin 0.3, AST 22, ALT 67 H, Alkaline Phosphatase 113 H, Total Protein 7.9, Albumin 3.4 L, Globulin4.5, Albumin/Globulin Ratio 0.8 10/04/23 14:53: Corrected WBC 5.8, Uncorrected WBC Count 5.8, RBC 3.32 L, Hgb 8.4 L, Hct 26.2 L, MCV 79.1 L, MCH 25.3, MCHC 32.0, RDW 18.4 H, Plt Count 404, MPV 6.8, Neut % (Auto) 61.7, Lymph % (Auto) 21.7, [place] % (Auto) 11.5, Eos % (Auto) 2.8, Baso % (Auto) 2.3, Nucleat RBC Rel Count 0.1, Neut # (Auto) 3.6, Lymph # (Auto) 1.2, [place] # (Auto) 0.7, Eos # (Auto) 0.2, Baso # (Auto) 0.1 10/04/23 14:53: ACTH 25.4 10/04/23 14:53: Free T4 1.00, TSH 3rd Generation 1.03, Total Cortisol 12.2 Assessment and Plan (1) 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 Right renal mass, [id number] cm with extension into right renal vein and inferior vena cava.. Has seen Dr. Ann in [place] for consideration of nephrectomy. Determined not a very good surgical candidate, she has very extensive disease and overall generally poor health. No definitive retroperitoneal lymphadenopathy. Extensive reticulonodular opacities at the lung base not well assessed possibly sequela of infectious or inflammatory process. Superimposed small pulmonary metastasis is not excluded. Will start palliative treatment and consider for debulking with this agent and reconsider ablative, surgical approaches down the line. -- Although we were not able to discuss it at the visit as we had not yet had finalpathology, by the time Dr. Chavez wrote the note on 09/05/2023, it was clear that she had a clear-cell renal neoplasm. We will offer her palliative approach with axitinib and pembrolizumab. 09/12/23- We reviewed pathology again briefly and discussed treatment plan for first line therapy, which will include Axitinib and Pembrolizumab. We reviewed side effects, efficacy, and answered her questions appropriately. She is aware the Axitinib will come from a specialty pharmacy and she should expect a call toset up delivery. She will work with Alberto in pharmacy to get this, and will have education provided again prior to starting this. Baseline EKG done 08/31/23 Plan Axitinib 5mg po BID to start once received. Will initiate Pembrolizumab 200mg every 3 weeks on 09/14/23. 10/05/2023: Perla is here for on treatment visit prior to Cycle 2 Pembrolizumab Tolerated cycle 1 well; no untoward side effects or obvious immunotherapy related toxicities She completed round of Injectafer in August 2023 and has persistent anemia; most recent hemoglobin was 8.5 Denies any current complaints of hematuria or obvious blood loss She was due to have iron labs rechecked and these were not done; so I will add those on today She is also waiting to hear on the delivery her Inlyta (Axitinib) - as she has not yet started this Otherwise, no new concerns - will proceed with Cycle 2 Pembrolizumab and touch base with pharmacy regarding Axitinib - follow up prior to Cycle 4 Pembrolizumab in 6 weeks - hopefully by then she will have initiated Axitinib and we may discuss side effects at that visit and review labs, etc. 2.) Iron deficiency anemia d/t chronic blood loss. Also with malabsorption She received IV Injectafer x 2 early Aug remains anemic, will repeat iron studies and replete with additional Injectafer if needed. 10/05/2023: Still with persistent anemia - most recent hemoglobin - 8.5 - adding iron studies on to today's labs 3.) Hyponatremia - likely secondary to malignancy - mild- asymptomatic; will monitor for now 4.) Encounter for monitoring chemotherapy/immunotherapy - Cycle 1 Pembrolizumab: 09/14/2023 Cycle 2: 10/05/2023 - as of today; patient has not yet started Axitinib 5 mg PO BID - will discuss with pharmacy and hopefully patient is able to start that soon (2) Iron deficiency anemia (3) Hyponatremia (4) Encounter for antineoplastic chemotherapy - Time with Patient Time Spent with Patient (Follow Up Visit): 35 minutes Coordination of Care & Counseling Time: Greater than 50% of time spent with patient was for coordination of care (as documented) and [id number] counseling of patient and/or family. Dictated By: Vannessa Perales APRN DD/ 1354 Signed By: <Electronically signed by CHAD Perales> 10/05/23 1402 [facility] Work Phone: Summary Purpose Family History No Family History Records Found Relationship Condition Age at Onset Recorded Date/T jeffrey Not Specified Lymphoma Unknown Not Specified Tuberculosis Unknown Multiple sclerosis Unknown Advance Directives No Advanced Directives Records Found Advance Directive Response Recorded Date/ Time Advance Directives No June 12:43pm Advance Directive Response Recorded Date/ Time Advance Directives No June 11:43am Chief Complaint and Reason for Visit Chief Complaint Renal Mass Chief Complaint Renal Mass N28.89 Reason for Visit Renal mass Chief Complaint Renal Mass N28.89 N25.89 Reason for Visit Renal mass Chief Complaint N25.89 Renal Mass N28.89 Reason for Visit Renal mass Chief Complaint N25.89 Renal Mass N28.89 Reason for Visit Clear cell renal cayden l carcinoma Encounter for antineoplastic chemotherapy Hyponatremia Iron deficiency anemia Additional Source Comments INFORMATION SOURCE (unrecogn ized section and content) DATE CREATED AUTHOR 02/10/2023 [facility] DATE CREATED AUTHOR AUTHOR'S ORGANIZ ATION 03/13/2023 [facility] DATE CREATED AUTHOR AUTHOR'S ORGANIZ ATION 10/06/2023 [facility] [place] DATE CREATED AUTHOR AUTHOR'S ORGANIZ ATION 10/13/2023 [facility] Care Teams (unrecognized sec tion and content) Team Status: Active Member Role Status Dates DEIDRE Barrett Primary Care Provider Active Team Status: Active Member Role Status Dates Aries Chavez II, DO Attending Provider Active DEIDRE Barrett Primary Care Provider Active Referral Self Referring Provider Active Team Status: Inactive Member Role Status Dates DEIDRE Barrett Primary Care Provider Active Aries Chavez II, DO Attending Provider Active Goals (unrecognized section and content) Goals may be documented in a n alternate sectionGoals may be documented in an alternate section FOR RECORDS PERTAINING TO PATIENTS WHO ARE OR HAVE BEEN ENROLLED IN A CHEMICAL DEPENDENCY/SUBSTANCEABUSE PROGRAM, SOME INFORMATION MAY BE OMITTED. This clinical summary was aggregated from multiple sources. Caution should be exercised in using it in the provision of clinical care. This summary normalizes information from multiple sources, and as a consequence, information in this document may materially change the coding, format and clinical context of patient data. In addition, data may be omitted in some cases. CLINICAL DECISIONS SHOULD BE BASED ON THE PRIMARY CLINICAL RECORDS. [facility] [employer] provides no warranty or guarantee of the accuracy or completeness of information in this document.
--- NOTE | 2023-10-19 14:35 | ECG_ITS ---
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
--- NOTE | 2023-10-19 14:41 | CT_ITS ---
The [address] [address] Patient Name: RPACHI WARD MRN: [id number] date: 1955 Sex: F Assigned Patient Location: ER Current Patient Location: ER Accession/Order Number: [id number] Exam Date: 10/19/2023 15:08 Report Date: 10/19/2023 15:33 At the request of: YASMINE FENTON Procedure: CT head/brain wo con EXAM: CT head/brain wo con HISTORY: Seizure COMPARISON: CT head 04/04/2023. TECHNIQUE: Axial noncontrast CT imaging of the head was performed with coronal and sagittal reformats. This CT exam was performed using one or more of the following dose reduction techniques: Automated exposure control, adjustment of the MA and/or kV according to patient size, or use of iterative reconstruction technique. FINDINGS: Calvarium/skull base: No evidence of acute fracture or destructive lesion. Mastoids and middle ears demonstrate no substantial mucosal disease. Paranasal sinuses: No air fluid levels. Brain: No acute intracranial hemorrhage. No acute large vascular territory infarct. No mass lesion or mass effect. No hydrocephalus. CT/CT head/brain wo con IMPRESSION: No acute intracranial process. Electronically authenticated by: ADILIA PUENTE Date: 10/19/2023 15:33
--- NOTE | 2023-10-19 14:41 | XR_ITS ---
The [address] [address] Patient Name: PRACHI WARD MRN: [id number] date: 1955 Sex: F Assigned Patient Location: ER Current Patient Location: ER Accession/Order Number: [id number] Exam Date: 10/19/2023 15:12 Report Date: 10/19/2023 15:31 At the request of: YASMINE FENTON Procedure: XR chest 1V EXAMINATION: XR chest 1V HISTORY: Shortness of breath COMPARISON: 04/04/2023 TECHNIQUE: AP portable erect FINDINGS: LUNGS: Bibasilar infiltrates right greater than left. Peripheral intralobular septal thickening VASCULATURE: Mildly increased pulmonary vasculature PLEURA: Suspected small bilateral pleural effusions with blunting of the lateral costophrenic angles CARDIAC: Prominent heart size MEDIASTINUM: No visible mass or adenopathy. BONES: No fracture or visible bone lesion. OTHER: Negative. XR/XR chest 1V IMPRESSION: Findings suggesting pulmonary vascular congestion/pulmonary edema with small pleural effusions Electronically authenticated by: PEDRO PABLO DOWNS Date: 10/19/2023 15:31
--- NOTE | 2023-10-19 14:42 | ED.GENADUL1 ---
HPI - General Adult General Chief complaint: Nausea/Vomiting/Diarrhea Stated complaint: CANCER DRUG SIDE EFFECT Time Seen by Provider: 10/19/23 14:30 Source: patient Mode of arrival: Wheelchair Limitations: no limitations History of Present Illness HPI narrative: Patient is a 68-year-old female who presents to the emergency department for suspected side effects from her oral chemotherapy medication. She states she has kidney cancer. She has been on an oral chemotherapy agent from [facility] for the last 7 to 8 days. She states in the last 2 days she has had significant vomiting. She states multiple times that she feels she is dehydrated. She has Multiple complaints. Her family member at bedside also has multiple complaints to be addressed for the patient. She has had no fevers. She denies chest pain. She states she feels short of breath, she has had vomiting, abdominal discomfort, left ear pain, left tonsillar pain. She has not been seen by her regular primary care doctor or her oncologist for any of the symptoms. She states she has an appointment in 1 week but did not feel she could wait. Her family member at the bedside states that last night the patient was sitting on the toilet vomiting when she had a seizure where her arms were shaking after vomiting. Patient did not lose consciousness or fall to the ground. She had no head injury and has no complaints of head, neck, back pain. She is ambulatory. Related Data Home Medications Medication Instructions Recorded Confirmed aspirin 81 mg tablet,delayed 81 mg PO QDAY 04/04/23 04/04/23 release atorvastatin 20 mg tablet 20 mg PO .qhs 04/04/23 04/04/23 carvedilol 3.125 mg tablet 3.125 mg PO Q12H 04/04/23 04/04/23 dapagliflozin propanediol 5 mg 10 mg PO QDAY 04/04/23 04/04/23 tablet (Farxiga) sacubitril 24 mg-valsartan 26 mg 1 tab PO BID 04/04/23 04/04/23 tablet (Entresto) spironolactone 25 mg tablet 25 mg PO .qhs 04/04/23 04/04/23 Previous Rx's Medication Instructions Recorded ciprofloxacin HCl 500 mg tablet 500 mg PO BID 5 days #10 tabs 04/04/23 (Cipro) ondansetron 4 mg disintegrating 4 mg PO Q6H PRN nausea and 04/04/23 tablet vomiting #12 tabs Allergies Allergy/AdvReac Type Severity Reaction Status Date / Time No Known Drug Allergies Allergy Verified 04/04/23 15:50 Review of Systems ROS Constitutional Denies: fever or chills Ears, nose, mouth, and throat Reports: throat pain and ear pain; Denies: nasal congestion Cardiovascular Denies: chest pain Respiratory Reports: shortness of breath; Denies: cough or wheezing Gastrointestinal Reports: abdominal pain, nausea and vomiting; Denies: diarrhea Genitourinary Denies: painful urination Musculoskeletal Denies: back pain or neck pain Integumentary/Breast Denies: rash Neurological Reports: headache Psychiatric Reports: anxiety [facility] Social History Smoking status: Former smoker Exam Narrative Exam Narrative: Gen.: Awake, alert, in no distress Head: Normocephalic, atraumatic ENT: Moist mucous membranes, Bilateral TMs are clear with no erythema or injection. Airway is widely open and patent with uvula midline. There is no tonsillar edema, no pharyngeal erythema. No exudate. Respiratory: No respiratory distress, lungs clear bilaterally Cardio: Regular rate and rhythm Gastrointestinal: Abdomen is soft, nondistended and nontender to palpation Extremities: Moves extremities equally, no injuries noted Psych: Normal mood and affect Neuro: No focal neuro deficit Skin: Warm, dry, intact Constitutional Vital Signs, click to edit/add: Last Vital Signs Temp 97.7 F 10/19/23 14:17 Pulse 105 H 10/19/23 17:10 Resp 13 10/19/23 17:10 BP 126/84 10/19/23 17:00 Pulse Ox 97 10/19/23 17:10 O2 Del Method Nasal Cannula 10/19/23 14:17 O2 Flow Rate 2 10/19/23 14:17 Course Vital Signs Vital signs: Vital Signs Temperature 97.7 F 10/19/23 14:17 Pulse Rate 116 H 10/19/23 14:17 Respiratory Rate 24 10/19/23 14:17 Blood Pressure 147/98 H 10/19/23 14:17 Pulse Oximetry 99 10/19/23 14:17 Oxygen Delivery Method Nasal Cannula 10/19/23 14:17 Oxygen Delivery Flow Rate 2 10/19/23 14:17 Temperature 97.7 F 10/19/23 14:17 Pulse Rate 105 H 10/19/23 17:10 Respiratory Rate 13 10/19/23 17:10 Blood Pressure 126/84 10/19/23 17:00 Pulse Oximetry 97 10/19/23 17:10 Oxygen Delivery Method Nasal Cannula 10/19/23 14:17 Oxygen Delivery Flow Rate 2 10/19/23 14:17 Medical Decision Making MDM Narrative Medical decision making narrative: Patient was initially treated with IV fluids, Zofran, she continued to vomit and was given Reglan which made her feel very anxious. She was given Dilaudid, Valium, Zofran. CT of the brain was performed due to the family members insistence that the patient had a seizure last night, although based on her anxiety and shaking in the emergency department, I suspect that the shaking of her arms was due to anxiety last night. CT of the brain is unremarkable and chest x-ray shows pulmonary vascular congestion. Troponin is elevated, patient with acute kidney injury, hyponatremia. She was given additional IV fluids by attending physician after reevaluation. She was made aware that she cannot stay at this facility and would be better served where her oncologist can evaluate her. She is agreeable to transfer to [facility] and was accepted by Dr. Jacobs for transfer. She is mildly tachycardic but with no active chest pain at time of transfer. Critical care time 35 minutes. Medical Records Medical records reviewed: Yes I reviewed the patient's medical records Lab Data Lab results reviewed: Yes I reviewed the patient's lab results Labs: Lab Results 10/19/23 10/19/23 Range/Units 14:44 14:58 WBC 11.2 H (4.0-11.0) 10^3/uL RBC 3.95 L (4.20-5.40) 10^6/uL Hgb 10.1 L (12.0-16.0) g/dL Hct 31.3 L (36.0-48.0) % MCV 79.2 L (81.0-99.0) fL MCH 25.6 L (26.7-34.0) pg MCHC 32.3 (29.9-35.2) g/dL RDW 15.5 H (11.0-15.0) % Plt Count 392 (150-450) 10^3/uL MPV 9.7 (9.5-13.5) fL Neut % (Auto) 77.3 H (43.0-75.0) % Lymph % (Auto) 12.9 L (20.5-60.0) % Lares % (Auto) 7.7 (1.7-12.0) % Eos % (Auto) 0.1 L (0.9-7.0) % Baso % (Auto) 0.7 (0.2-2.0) % Neut # (Auto) 8.7 H (1.4-6.5) 10^3/uL Lymph # (Auto) 1.4 (1.2-3.8) 10^3/uL Lares # (Auto) 0.9 H (0.3-0.8) 10^3/uL Eos # (Auto) 0.0 (0.0-0.7) 10^3/uL Baso # (Auto) 0.1 (0.0-0.1) 10^3/uL Abs Immat Gran (auto) 0.14 H (0.00-0.03) 10^3/uL Imm/Tot Granulo (auto) 1.3 H (0.0-0.5) % Sodium 120 L* (136-145) mmol/L Potassium 5.2 H (3.5-5.1) mmol/L Chloride 85 L (98-107) mmol/L Carbon Dioxide 21.7 (21.0-32.0) mmol/L Anion Gap 18.5 BUN 30.0 H (7.0-18.0) mg/dL Creatinine 1.71 H (0.55-1.02) mg/dL Est GFR ( Amer) 36 L (>=60) Est GFR (Non-Af Amer) 30 L (>=60) BUN/Creatinine Ratio 17.5 Glucose 137 H (74-106) mg/dL Lactate 4.7 H* (0.4-2.0) mmol/L Calcium 9.6 (8.5-10.1) mg/dL Magnesium 2.1 (1.8-2.4) mg/dL Total Bilirubin 0.5 (0.2-1.0) mg/dL AST 72 H (15-37) U/L ALT 106 H (14-59) U/L Alkaline Phosphatase 146 H (46-116) U/L Troponin I High Sens 182.9 H* (4.0-51.3) pg/mL NT-Pro-B Natriuret Pep >96233.0 H* (<=900.0) pg/mL Total Protein 9.5 H (6.4-8.2) g/dL Albumin 2.7 L (3.4-5.0) g/dL Globulin 6.8 g/dL Albumin/Globulin Ratio 0.4 Lipase 17.0 (16.0-77.0) U/L Influenza Type A Ag Negative Influenza Type B Ag Negative SARS-CoV-2 Ag (CV2AG) Negative (NEGATIVE) Imaging Data Chest x-ray: Attestation: I have reviewed the pertinent imaging results. Radiologist's impression: ITS Impressions Chest X-Ray 10/19/23 14:41 IMPRESSION: Findings suggesting pulmonary vascular congestion/pulmonary edema with small pleural effusions Electronically authenticated by: PEDRO PABLO DOWNS Date: 10/19/2023 15:[address] 10/19/23 14:41 IMPRESSION: No acute intracranial process. Electronically authenticated by: ADILIA PUENTE Date: 10/19/2023 15:33 ECG Data Attestation: I personally reviewed and interpreted this ECG as follows: (Sinus tachycardia at a rate of 102, T wave inversion in leads V2 and V3 new from previous EKG 08/31/2023 with no other acute ST elevation or ectopy. EKG reviewed by attending physician) Discharge Plan Discharge Chief Complaint: Nausea/Vomiting/Diarrhea Clinical Impression: Acute kidney injury, Elevated troponin, Intractable nausea and vomiting, Weakness, Acute hyponatremia Patient Disposition: [facility] Time of Disposition Decision: 16:50 Discharge Location: [facility] Mode of Transportation: EMS
[2023-10-19 14:59] LABS: Basophils Absolute Auto 0.1 10^3/uL (0.0-0.1); Basophils Percent Auto 0.7 % (0.2-2.0); Eosinophils Percent Auto 0.1 % (0.9-7.0); Hematocrit 31.3 % (36.0-48.0); Hemoglobin 10.1 g/dL (12.0-16.0); Immature Granulocytes Abs Auto 0.14 10^3/uL (0.00-0.03); Immature Granulocytes Pct Auto 1.3 % (0.0-0.5); Lymphocytes Absolute Auto 1.4 10^3/uL (1.2-3.8); Lymphocytes Percent Auto 12.9 % (20.5-60.0); Mean Corpuscular HGB Conc 32.3 g/dL (29.9-35.2); Mean Corpuscular Hemoglobin 25.6 pg (26.7-34.0); Mean Corpuscular Volume 79.2 fL (81.0-99.0); Mean Platelet Volume 9.7 fL (9.5-13.5); Monocytes Absolute Auto 0.9 10^3/uL (0.3-0.8); Monocytes Percent Auto 7.7 % (1.7-12.0); Neutrophils Absolute Auto 8.7 10^3/uL (1.4-6.5); Neutrophils Percent Auto 77.3 % (43.0-75.0); Platelet Count 392 10^3/uL (150-450); Red Blood Count 3.95 10^6/uL (4.20-5.40); Red Cell Distribution Width 15.5 % (11.0-15.0); White Blood Count 11.2 10^3/uL (4.0-11.0)
[2023-10-19] MEDS: 0.9 % SODIUM CHLORIDE 1,000 ML 999 ML IV (15:02)
[2023-10-19] MEDS: ONDANSETRON 4 MG RAPDIS TABLET SL (15:06)
[2023-10-19 15:32] LABS: Alanine Aminotransferase 106 U/L (14-59); Albumin Globulin Ratio 0.4; Albumin Level 2.7 g/dL (3.4-5.0); Alkaline Phosphatase 146 U/L (46-116); Anion Gap 18.5; Aspartate Amino Transferase 72 U/L (15-37); BUN Creatinine Ratio 17.5; Bilirubin Total 0.5 mg/dL (0.2-1.0); Calcium 9.6 mg/dL (8.5-10.1); Carbon Dioxide 21.7 mmol/L (21.0-32.0); Chloride 85 mmol/L (98-107); Estimated GFR (African America 36 (>=60); Estimated GFR (Non-African Ame 30 (>=60); Globulin 6.8 g/dL; Glucose 137 mg/dL (74-106); Magnesium 2.1 mg/dL (1.8-2.4); Potassium 5.2 mmol/L (3.5-5.1); Total Protein 9.5 g/dL (6.4-8.2)
[2023-10-19 15:34] LABS: Sodium 120 mmol/L (136-145)
[2023-10-19 15:35] LABS: Lactate/Lactic Acid 4.7 mmol/L (0.4-2.0); Troponin I High Sensitivity 182.9 pg/mL (4.0-51.3)
[2023-10-19 15:38] LABS: Influenza Virus A Antigen Negative; Influenza Virus B Antigen Negative; Internal Control Within Normal Limits; SARS-CoV-2 Ag NEGATIVE (NEGATIVE)
[2023-10-19] MEDS: METOCLOPRAMIDE HCL 10 MG/2 ML VIAL IVP (15:42)
[2023-10-19] MEDS: DIAZEPAM 10 MG/2 ML SYRINGE 2 MG IV (16:23)
[2023-10-19] MEDS: 0.9 % SODIUM CHLORIDE 1,000 ML 1000 ML IV (16:24)
[2023-10-19] MEDS: ONDANSETRON PF 4 MG/2 ML VIAL IV (16:24)
[2023-10-19] MEDS: HYDROMORPHONE HCL 1 MG/ML CARTRIDGE IV (16:24)
[2023-10-19 16:47] LABS: NT Pro B Type Natriuretic Pept >35000.0 pg/mL (<=900.0)
[2023-10-19] MEDS: ALBUTEROL SULFATE 2.5 MG/3 ML VIAL NEB IH (17:58)
[2023-10-19 18:06] LABS: Lactate/Lactic Acid 5.8 mmol/L (0.4-2.0)
== END 2023-10-19 18:49 | disposition short-term general hospital (02) ==
PROVIDERS: Physician Assistant; Emergency Provider Emergency Medicine; PCP Nurse Practitioner Family
DX: N17.9 Acute kidney failure, unspecified (principal); R79.89 Other specified abnormal findings of blood chemistry; R11.2 Nausea with vomiting, unspecified; R53.1 Weakness; E87.1 Hypo-osmolality and hyponatremia; C64.9 Malignant neoplasm of unspecified kidney, except renal pelvis; R06.02 Shortness of breath; Z79.899 Other long term (current) drug therapy; Z79.82 Long term (current) use of aspirin; Z87.891 Personal history of nicotine dependence; Z20.822 Contact with and (suspected) exposure to COVID-19
CPT/HCPCS: 36415; 70450; 71045; 80053; 82550; 82553; 83605; 83690; 83735; 83880; 84484; 85025; 87040; 87804; 87811; 93005; 94640; 96361; 96374; 96375; 99285; J1170; J2405; J2765; J3360; Q0162

== ENCOUNTER 2023-12-19 13:04 | Outpatient (OUT) | payer MEDICARE, OTHER, SELFPAY ==
--- NOTE | 2023-12-19 13:12 | CT_ITS ---
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 TECHNIQUE: Following the intravenous administration of 99 cc of Omnipaque 300, axial soft tissue windows of the abdomen and pelvis were performed with coronal and sagittal reformats. CT dose reduction technique was used including Automated Exposure Control. FINDINGS: Abdomen: The liver, spleen, pancreas, and adrenal glands are unremarkable. There are stones within the gallbladder. There is mild gallbladder wall thickening. Left renal low-attenuation lesions, too small to characterize. No renal stones or collecting system dilatation. There has been interval decrease in size in the previously identified right renal mass. This currently measures approximately 6.5 x 5.8 x 7.8 cm. There is persistent extension into the right renal vein and a portion of the inferior vena cava. Small to moderate hiatal hernia. Colonic diverticula. Otherwise, the bowel is unremarkable without evidence of wall thickening or obstruction. The appendix is nondilated. The aorta is normal caliber. Mild atherosclerotic disease. No enlarged abdominal lymph nodes or free abdominal fluid. Pelvis: Unremarkable bladder. The uterus is present and unremarkable within the limits of CT. No enlarged pelvic lymph nodes or free pelvic fluid. No aggressive sclerotic or lytic osseous lesions. Minimal retrolisthesis of L2 and L3. Mild to moderate multilevel degenerative spondylosis. CT/CT abdomen pelvis w con IMPRESSION: 1. Interval decrease in size in the previously identified right renal mass. There is persistent yet improved extension into the right renal vein and inferior vena cava. 2. Stones within the gallbladder. Mild gallbladder wall thickening. 3. Other nonemergent findings, as described above. Electronically authenticated by: FOX BALLARD Date: 12/19/2023 14:53
--- NOTE | 2023-12-19 13:12 | CT_ITS ---
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 TECHNIQUE: Multi-planar CT images were created with IV contrast. Axial, Coronal, and Sagittal images. Dose reduction techniques were achieved by using automated exposure control and/or adjustment of mA and/or kV according to patient size and/or use of iterative reconstruction technique. FINDINGS: LUNGS: Some mild endobronchial filling identified in both lower lobes, nonspecific mild diffuse centrilobular and paraseptal emphysema with an upper lobe predominance. A few scattered punctate pulmonary nodules the largest 4 mm right lower lobe axial image #79, nonspecific. PLEURA: No mass, effusion, or pneumothorax. VASCULATURE: Normal postcontrast opacification of the central pulmonary arterial tree with no filling defect to suggest a pulmonary embolus CATALINA: No mass or adenopathy. MEDIASTINUM: No mass or adenopathy. CARDIAC: No enlargement, pericardial thickening, or significant calcification. AORTA: No aneurysm or dissection. CHEST WALL: No mass or axillary adenopathy. BONES: No bone lesion or fracture. LIMITED ABDOMEN: Right renal mass extending into the renal vein, better evaluated on contemporaneous CT of the abdomen and pelvis. Diffuse hypoattenuation the liver, hepatic steatosis. Small sliding-type hiatal hernia. OTHER: Negative. CT/CT chest w con IMPRESSION: Right renal mass invading the renal vein that are seen on contemporaneous CT of the abdomen and pelvis Scattered punctate pulmonary nodules, nonspecific. No definite evidence of metastatic disease to the chest Electronically authenticated by: PEDRO PABLO DOWNS Date: 12/20/2023 08:17
== END 2023-12-19 13:05 | disposition home or self-care (01) ==
LOC: CT 13:04
PROVIDERS: PCP Nurse Practitioner Family; Visit Provider Internal Medicine
DX: C64.9 Malignant neoplasm of unspecified kidney, except renal pelvis (principal)
CPT/HCPCS: 71260; 74177; Q9967

== ENCOUNTER 2024-01-30 14:56 | Outpatient (OUT) | payer MEDICARE, OTHER, SELFPAY ==
--- NOTE | 2024-01-30 15:10 | XR_ITS ---
The [address] [address] Patient Name: PRACHI WARD MRN: [id number] date: 1955 Sex: F Assigned Patient Location: [facility] Current Patient Location: RAD Accession/Order Number: [id number] Exam Date: 01/30/2024 15:05 Report Date: 01/30/2024 19:38 At the request of: BRIAN KIM Procedure: XR chest 2V EXAM: XR chest 2V HISTORY: chronic obstructive pulmonary disease J44.1 COMPARISON: 10/19/2023 TECHNIQUE: Upright PA and lateral chest x-ray FINDINGS: The heart is not enlarged and the vasculature is not distended. No acute infiltrate, effusion or pneumothorax is identified. There is slight prominence of interstitial markings throughout the lungs with mild flattening of the hemidiaphragms suggesting COPD. Degenerative changes are seen in the spine. XR/XR chest 2V IMPRESSION: No apparent acute infiltrate or evidence of cardiac decompensation. Mild chronic changes are present. The overall appearance of the chest is unchanged. Electronically authenticated by: RONNIE COLE Date: 01/30/2024 19:38
== END 2024-01-30 14:57 | disposition home or self-care (01) ==
LOC: RAD 14:58
PROVIDERS: PCP Nurse Practitioner Family; Visit Provider Nurse Practitioner Family
DX: J44.1 Chronic obstructive pulmonary disease with (acute) exacerbation (principal)
CPT/HCPCS: 71046

== ENCOUNTER 2024-05-09 14:27 | Outpatient (OUT) | payer MEDICARE, OTHER, SELFPAY ==
--- OUTSIDE RECORDS SUMMARY | 2024-05-09 14:46 | XMS_ITS | CCD ---
Author Organization [facility] Care Team Providers Care It Infrastructure Engineer Name Role Phone Chantal Park Attending Unavailable KUNTony, NEDRA Referring Unavailable Chantal Park Attending Unavailable [...] BASHIR Consulting Unavailable SISTER, BUCKY Consulting Unavailable TELLO, OLIVIA Consulting Unavailable CITLALI ., DOMINGA Consulting Unavailable FEIDER, ANTONY Consulting Unavailable KATRINA, MANASA Consulting Unavailable MISC, DR VERDIN Admitting Unavailable MISC, DR VERDIN Attending Unavailable MISC, DR VERDIN Consulting Unavailable MISC, DR VERDIN Primary Care Unavailable MISC, DR VERDIN Admitting Unavailable MISC, DR VERDIN Attending Unavailable MISC, DR VERDIN Consulting Unavailable MISC, DR VERDIN Primary Care Unavailable DO Aries Chavez II [facility] [phone] Self, Referral Referring Provider Unavailable DO Aries Chavez II [facility] [phone] Self, Referral Referring Provider Unavailable DO Aries Chavez II [facility] [phone] Self, Referral Referring Provider [facility] DO Aries Chavez II Attending Provider Self, Referral Referring Provider Unavailable Self, Referral Referring Provider Unavailable Self, Referral Referring Provider Unavailable Self, Referral Referring Provider Unavailable Self, Referral Referring Provider Unavailable Unavailable Primary Care Provider Unavailabl e Self, Referral Referring Provider Unavailable Kuns SENIOR SERVICE TECHNICIAN-CHARGE ACCOUNT AUTHORIZER, Nedra Woodruff Primary Care Provider Adamowicz II, DO Aries Guzman Attending Provider Daniel, [facility] Primary Care Provider Self, Referral Referring Provider Unavailable JULIO MONAE Attending Unavailable KUNS, NEDRA WOODRUFF Referring Unavailable KUNS, NEDRA WOODRUFF Primary Care Unavailable JULIO NEDRA WOODRUFF Attending Unavailable KUNS, NEDRA WOODRUFF Referring Unavailable KUNS, NEDRA WOODRUFF Primary Care Unavailable Adamowicz II, DO Aries Guzman Attending Provider Kun, [facility] Primary Care Provider Self, Referral Referring Provider Unavailable PEDRO LUIS FRENCH Attending Unavailable PEDRO LUIS FRENCH Attending Unavailable ANTONIO DELGADO Attending Unavailable MADDIE ANN Attending Unavailable Adamowicz II, Aries Guzman Admitting Unavaila ble Adamowicz II, Aries Guzman Attending Unavaila ble Daniel, Nedra Danelle Primary Care Unavailable Adamowicz II, Aries Guzman Admitting Unavaila ble Kuns, [facility] Danelle Primary Care Unavailable Adamowicz II, rAies Guzman Attending Unavaila ble Self, Referral Referring Unavailable Marisel Abdalla Consulting Unavailable M[place] Attending Unavailable Daniel, Nedra Danelle Primary Care Unavailable Noe Jacobs Admitting Unavailabl e Adamowicz II, Aries Guzman Consulting Unavaila ble Vannessa Perales Consulting Unavailab Tosin Crespo Consulting Unavailable Ileana Joshi Consulting Unavailable Zoie Jansen Consulting Unavailable Ariana Bell Consulting Unavailable Liam Senior Consulting Unavailable Nedra Moon Consulting Unavail able [address] [place] Consulting Unavailable Lorrie Butler Consulting Unavailable Deann Marx Consulting Unavailable Phi Adamson Consulting UnavailFreddy Up Consulting Unavailable Ave Jacobs Consulting Unavailable Aracelis Baldwin Consulting Unavailable Allergies Allergy Classification Reported Allergen(s) Allergy Type Date of Onset Reaction(s) Facility (8 sources) Erythromycin Drug Allergy 3 Diarrhea [facility] Repository (3 sources) Erythromycin; Translations: [ERYTHROMYCIN] Drug Allergy 3 Other (See Comments) [employer] (1 source) erythromycin base Drug allergy (disorder) 4 [facility] Repository Medications Current Medications Medication Drug Class(es) Dates Sig (Normalized) Sig (Original) [id number] 200 actuat albuterol 0.09 mg/actuat metered dose inhaler (1 source) beta2-Adrenergic Agonist Start: 04-28-2023 take 2 puff(s) by mouth every four hours VENTOLIN HFA 90 mcg/actuation inhaler inhale 2 puffs by mouth and INTO THE LUNGS every 4 hours if needed for shortness of breath 0 04/28/2023 Active ALPRAZolam 0.25 mg oral tablet (1 source) Benzodiazepine Start: 04-07-2023 ALPRAZolam (XANAX) 0.25 mg tablet Indications: Anxiety Use twice daily as needed for anxiety - short term use only 10 tablet 0 04/07/2023 Active amoxicillin 875 mg / clavulanate 125 mg oral tablet (1 source) Penicillin-class Antibacterial Start: 12-26-2023 End: 01-02-2024 take 1 tablet by mouth once in the morning amoxicillin-pot clavulanate (AUGMENTIN) 875-125 mg per tablet Indications: Acute recurrent frontal sinusitis Take 1 tablet by mouth in the morning and 1 tablet before bedtime. Do all this for 7 days. 14 tablet 0 12/26/2023 01/02/2024 Active aspirin 81 mg delayed release oral tablet (6 sources) Platelet Aggregation Inhibitor, Nonsteroidal Anti-inflammatory Drug Start: 10-20-2023 take 81 mg by mouth once daily Aspirin Active 81 MG PO Daily October 20, 2023 1:00am atorvastatin 20 mg oral tablet (13 sources) HMG-CoA Reductase Inhibitor Start: 06-21-2023 take 20 mg by mouth once daily at bedtime Atorvastatin Active 20 MG PO Daily at bedtime June 21, 2023 12:00am docusate sodium 100 mg oral capsule (1 source) Start: 03-29-2024 take 1 capsule by mouth once daily Docusate Sodium (Colace) 100 mg capsule Active 100 MG PO Daily March 29, 2024 12:00am escitalopram 10 mg oral tablet (14 sources) Serotonin Reuptake Inhibitor Start: 03-29-2024 take 10 mg by mouth once daily in the morning Escitalopram Oxalate Active 10 MG PO Every morning March 29, 2024 10:15am Start: 06-21-2023 End: 03-29-2024 take 5 mg by mouth once daily in the morning Escitalopram Oxalate Discontinued 5 MG PO Every morning June 21, 2023 12:00am March 29, 2024 10:16am famotidine 20 mg oral tablet (12 sources) Histamine-2 Receptor Antagonist Start: 07-11-2023 take 20 mg by mouth once daily Famotidine Active 20 MG PO Daily July 31, 2023 12:00am levothyroxine sodium 0.05 mg oral capsule (5 sources) l-Thyroxine Start: 03-29-2024 take 50 ug by mouth once daily Levothyroxine Active 50 MCG PO Daily March 29, 2024 12:00am Start: 02-19-2024 End: 03-29-2024 take 1 tablet by mouth once daily Levothyroxine Discontinued 0 .ROUTE .COMPLEX 90 February 19, 2024 9:16am March 29, 2024 10:04am take 1 tablet by mouth daily Start: 01-18-2024 End: 02-19-2024 take 1 tablet by mouth once daily Levothyroxine (Synthroid) 75 mcg tablet Discontinued 75 MCG PO Daily January 18, 2024 12:00am February 19, 2024 9:16am Start: 12-29-2023 End: 01-18-2024 take 1 tablet by mouth once daily Levothyroxine (Synthroid) 50 mcg tablet Discontinued 50 MCG PO Daily December 29, 2023 12:00am January 18, 2024 2:53pm 24 hr metoprolol succinate 25 mg extended release oral tablet (13 sources) beta-Adrenergic [place]on Start: 06-21-2023 Metopr olol Succinate Active 25 MG PO As Directed June 21, 2023 12:00am Start: 04-21-2023 End: 04-20-2024 take 0.5 tablet by mouth every twenty-four hours metoprolol succinate XL (TOPROL XL) 25 mg 24 hr tablet Take 0.5 tablets (12.5 mg total) by mouth. 0 04/21/2023 04/20/2024 Active ondansetron 4 mg disintegrating oral tablet (13 sources) Serotonin-3 Receptor Antagonist Start: 12-26-2023 ondansetron ODT (ZOFRAN ODT) 4 mg disintegrating tablet Indications: Nausea and vomiting, unspecified vomiting type Dissolve 1 tablet (4 mg total) on tongue every 8 (eight) hours as needed for nausea or vomiting. 20 tablet 0 12/26/2023 Active Start: 10-24-2023 End: 03-29-2024 take 4 mg by mouth every six hours Ondansetron Active 4 MG PO Q6H March 29, 2024 10:15am Start: 10-17-2023 End: 10-24-2023 take 4 mg by mouth every eight hours Ondansetron Discontinued 4 MG PO Q8H October 17, 2023 8:47pm October 24, 2023 12:58pm oxyCODONE hydrochloride 5 mg oral tablet (5 sources) Opioid Agonist Start: 10-24-2023 take 2.5 mg by mouth every three hours Oxycodone Active 2.5 MG PO Every three hours 21 03October 24, 2023 pantoprazole 40 mg delayed release oral tablet (12 sources) Proton Pump Inhibitor Start: 06-21-2023 take 40 mg by mouth once daily Pantoprazole Active 40 MG PO Daily June 21, 2023 12:00am 4 ml pembrolizumab 25 mg/ml injection (1 source) Programmed Receptor-1 Blocking Antibody pembrolizumab (KEYTRUDA) 25 mg/mL chemo injection as directed Intravenous 0 Active polyethylene glycol 3350 63752 mg powder for oral solution (5 sources) Osmotic Laxative Start: 10-24-2023 Polyethylene Glycol 3350 (Healthylax) 17 gram Powder In Packet Active 17 GM PO Daily October 24, 2023 1:00am predniSONE 20 mg oral tablet (1 source) Start: 12-26-2023 End: 01-02-2024 take 1 tablet by mouth in the morning predniSONE (DELTASONE) 20 mg tablet Indications: Acute recurrent frontal sinusitis Take 1 tablet (20 mg total) by mouth in the morning for 7 days. 7 tablet 0 12/26/2023 01/02/2024 Active RSVPreF3 antigen-AS01E, PF, (AREXVY, PF,) 120 mcg/0.5 mL suspension for reconstitution injection (1 source) Start: 07-25-2023 RSVPreF3 antigen-AS01E, PF, (AREXVY, PF,) 120 mcg/0.5 mL suspension for reconstitution injection Inject 0.5 mL into the appropriate muscle once. 0 07/25/2023 Active sacubitril 24 mg / valsartan 26 mg oral tablet (13 sources) Angiotensin 2 Receptor [place]on Start: 06-21-2023 take 1 tablet by mouth twice daily Sacubitril-Valsarta n (Entresto) 24-26 mg tablet Active 1 TAB PO Twice daily June 21, 2023 12:00am Start: 03-23-2023 take 1 tablet by chace th once daily at bedtime ENTRESTO 24-26 mg tablet take 1 tablet by mouth every morning and at bedtime 0 03/23/2023 Active Sennosides (Senna Laxative) 8.6 mg Tablet (5 sources) Start: 10-24-2023 take 1 tablet by mouth twice daily Sennosides (Senna Laxative) 8.6 mg Tablet Active 8.6 MG PO Twice daily October 24, 2023 1:00am Start: 10-24-2023 take 1 tablet by chace th twice daily Sennosides (Senna Laxative) 8.6 mg Tablet Active 8.6 MG PO Twice daily October 24, 2023 12:00am spironolactone 25 mg oral tablet (13 sources) Aldosterone Antagonist Start: 06-21-2023 Spironolactone Activ e 12.5 MG PO As Directed June 21, 2023 12:00am spironolactone ( ALDACTONE) 25 mg tablet Take 1 tablet (25 mg total) by mouth in the morning. Cut in half. 0 Active Completed/Discontinued Medications Medication Drug Class(es) Dates Sig (Normalized) Sig (Original) axitinib 5 mg oral tablet (8 sources) Kinase Inhibitor Start: 09-07-2023 End: 10-26-2023 take 1 tablet by mouth twice daily Axitinib (Inlyta) 5 mg Tablet Discontinued 5 MG PO Twice daily 60 September 07, 2023 1:00am October 26, 2023 2:22pm 120 actuat formoterol fumarate 0.0048 mg/actuat / glycopyrrolate 0.009 mg/actuat metered dose inhaler (9 sources) beta2-Adrenergic Agonist Start: 08-28-2023 End: 10-20-2023 Glycopyrrolate-For moterol (Bevespi Aerosphere) 9-4.8 mcg Hfa Aerosol Inhaler Discontinued 2 PUFF INHALATION Twice daily August 28, 2023 1:00am October 20, 2023 3:29am loratadine 10 mg oral tablet (12 sources) Start: 06-21-2023 End: 06-23-2023 take 10 mg by mouth once daily Loratadine Discontinued 10 MG PO Daily June 21, 2023 12:00am June 23, 2023 1:28pm Tiotropium-Olodaterol (11 sources) Anticholinergic, beta2-Adrenergic Agonist Start: 07-31-2023 End: 10-20-2023 Tiotropium-Olodate rol (Stiolto Respimat) 2.5-2.5 mcg/actuation Mist Discontinued 2 PUFF INHALATION Daily July 31, 2023 12:00am October 20, 2023 3:30am Start: 07-31-2023 End: 10-20-2023 Tiotropium-Olodaterol (Stiol to Respimat) 2.5-2.5 mcg/actuation Mist Discontinued 2 PUFF INHALATION Daily July 30, 2023 11:00pm October 20, 2023 2:30am Start: 07-31-2023 Tiotropium-Olo daterol (Stiolto Respimat) 2.5-2.5 mcg/actuation Mist Active 2 PUFF INHALATION Daily July 30, 2023 11:00pm Start: 07-31-2023 Tiotropium-Olo daterol (Stiolto Respimat) 2.5-2.5 mcg/actuation Mist Active 2 PUFF INHALATION Daily July 31, 2023 12:00am sulfamethoxazole 800 mg / trimethoprim 160 mg oral tablet (18 sources) Dihydrofolate Reductase Inhibitor Antibacterial, Sulfonamide Antimicrobial Start: 09-19-2023 End: 10-20-2023 take 1 tablet by mouth twice daily Sulfamethoxazole-Trimethoprim (Bactrim Ds) 800-160 mg Tablet Discontinued 1 TAB PO Twice daily September 19, 2023 1:00am October 20, 2023 3:30am Start: 07-31-2023 End: 09-12-2023 take 1 tablet by mouth twice daily Sulfamethoxazole-Trimethoprim (Bactrim D s) 800-160 mg Tablet Discontinued 1 TAB PO Twice daily July 31, 2023 12:00am September 12, 2023 1:50pm Problems Active Problems Problem Classification Problem Date Documented Da te Episodic/Chronic Acute myocardial infarction (2 sources) Non-ST elevation (NSTEMI) myocardial infarction; Translations: [Myocardial infarction] Onset: 02-02-2023 02-09-2023 Chronic Allergic reactions (1 source) Allergy status to other antibiotic agents status; Translations: [ALLERGY STATUS OTH ANTIBIOTIC AGENT] Onset: 02-02-2023 Episodic Anxiety disorders (1 source) Anxiety disorder, unspecified; Translations: [ANXIETY DISORDER UNSPECIFIED] Onset: 02-02-2023 Chronic Cancer of kidney and renal pelvis (20 sources) Clear cell carcinoma of kidney; Translations: [Malignant neoplasm of unspecified kidney, except renal pelvis] Onset: 07-11-2023 09-05-2023 Chronic Cardiac dysrhythmias (1 source) Tachycardia, unspecified; Translations: [TACHYCARDIA UNSPECIFIED] Onset: 02-02-2023 Episodic Chronic obstructive pulmonary disease and bronchiectasis (16 sources) Chronic obstructive pulmonary disease with (acute) exacerbation; Translations: [Chronic obstructive pulmonary disease with (acute) lower respiratory infection] Onset: 02-02-2023 10-19-2023 Chronic Congestive heart failure; nonhypertensive (15 sources) Acute on chronic systolic (congestive) heart failure; Translations: [Acute systolic (congestive) heart failure] Onset: 01-25-2023 Resolved: 02-07-2023 Chronic Coronary atherosclerosis and other heart disease (5 sources) Acute coronary syndrome; Translations: [Acute ischemic heart disease, unspecified] Onset: 01-25-2023 02-06-2023 Chronic Deficiency and other anemia (15 sources) Iron deficiency anemia; Translations: [Iron deficiency anemia, unspecified] 2023 Episodic Deficiency and other anemia (11 sources) Iron deficiency anemia, unspecified; Translations: [Iron deficiency anemia, unspecified] Onset: 05-07-2024 10-05-2023 Episodic Essential hypertension (2 sources) Essential (primary) hypertension; Translations: [Essential (primary) hypertension] Onset: 05-18-2023 Chronic Hypertension with complications and secondary hypertension (2 sources) Hypertensive heart disease with heart failure; Translations: [Hypertensive heart disease with heart failure] Onset: 04-23-2024 Chronic Maintenance chemotherapy; radiotherapy (12 sources) Patient encounter status; Translations: [Encounter for antineoplastic chemotherapy] 10-05-2023 Chronic Nephritis; nephrosis; renal sclerosis (1 source) Toxic nephropathy, not elsewhere classified; Translations: [Toxic nephropathy, not elsewhere classified] Onset: 10-19-2023 Chronic Other aftercare (5 sources) Drug therapy finding; Translations: [Other mcc (current) drug therapy] 10-20-2023 Episodic Other diseases of kidney and ureters (8 sources) Renal mass; Translations: [Other specified disorders of kidney and ureter] Onset: 04-24-2023 07-11-2023 Chronic Other diseases of kidney and ureters (8 sources) Other specified disorders of kidney and ureter; Translations: [Unspecified disorder of kidney and ureter] Onset: 05-18-2023 07-31-2023 Chronic Other gastrointestinal disorders (5 sources) Constipation; Translations: [Constipation, unspecified] 10-19-2023 Episodic Other liver diseases (9 sources) Enzyme level - finding; Translations: [Elevated transaminase measurement] 10-20-2023 Episodic Other lower respiratory disease (1 source) Cough Onset: 01-30-2024 Episodic Other lower respiratory disease (2 sources) Other forms of dyspnea; Translations: [Other forms of dyspnea] Onset: 04-23-2024 Episodic Other nervous system disorders (5 sources) Pain due to neoplastic disease; Translations: [Neoplasm related pain (acute) (chronic)] 10-20-2023 Chronic Other nervous system disorders (5 sources) Neoplasm related pain (acute) (chronic); Translations: [Neoplasm related pain (acute) (chronic)] Onset: 10-19-2023 10-19-2023 Chronic Other upper respiratory disease (1 source) Nasal congestion Onset: 12-26-2023 Episodic Other upper respiratory infections (3 sources) Acute upper respiratory infection, unspecified; Translations: [Acute recurrent frontal sinusitis] Onset: 02-02-2023 12-26-2023 Episodic Katey-; endo-; and myocarditis; cardiomyopathy (except that caused by tuberculosis or sexually transmitted disease) (12 sources) Cardiomyopathy; Translations: [Other cardiomyopathies] Onset: 10-19-2023 10-20-2023 Chronic Pneumonia (except that caused by tuberculosis or [...] OTH INFECTIOUS PARASITIC DZ] Onset: 02-02-2023 Episodic Respiratory failure; insufficiency; arrest (adult) (11 sources) Chronic hypoxemic respiratory failure; Translations: [Chronic respiratory failure with hypoxia] Onset: 10-19-2023 10-19-2023 Chronic Septicemia (except in labor) (3 sources) Other [...] [CONTACT W/AND (SUSP) EXPOS COVID-19] Onset: 02-02-2023 Unclassified (1 source) Elevation of levels of liver transaminase levels; Translations: [Elevation of levels of liver transaminase levels] Onset: 10-19-2023 Past or Other Problems Problem Classification Problem Date Documented Da te Episodic/Chronic Acute and unspecified renal failure (10 sources) Nephrotoxic acute renal failure; Translations: [Other acute kidney failure] Onset: 10-19-2023 10-20-2023 Episodic Administrative/social admission (10 sources) Advance directive discussed with patient; Translations: [Other specified counseling] Onset: 10-19-2023 10-23-2023 Episodic Fluid and electrolyte disorders (18 sources) Hypo-osmolality and hyponatremia; Translations: [Hyponatremia] Onset: 02-02-2023 10-05-2023 Episodic Mood disorders (1 source) Mood disorders Onset: 12-26-2023 12-26-2023 Nausea and vomiting (13 sources) Nausea; Translations: [Intractable nausea and vomiting] Onset: 02-02-2023 10-19-2023 Episodic Other aftercare (5 sources) Other termite control representative (current) drug therapy; Translations: [Long-term (current) use of other medications] Onset: 10-19-2023 10-19-2023 Episodic Other diseases of kidney and ureters (1 source) Other specified disorders of kidney and ureter; Translations: [Other specified disorders of kidney and ureter] Onset: 08-22-2023 Episodic Other gastrointestinal disorders (5 sources) Constipation, unspecified; Translations: [Constipation, unspecified] Onset: 10-19-2023 10-19-2023 Episodic Other screening for suspected conditions (not mental disorders or infectious disease) (19 sources) Raised cardiac enzyme or marker; Translations: [Other specified abnormal findings of blood chemistry] Onset: 10-19-2023 10-19-2023 Episodic Respiratory failure; insufficiency; arrest (adult) (3 sources) Acute respiratory failure with hypoxia; Translations: [Acute respiratory failure with hypercapnia] Onset: 01-25-2023 Resolved: 02-07-2023 02-07-2023 Episodic Viral infection (2 sources) Other viral agents as the cause of diseases classified elsewhere; Translations: [Parainfluenza] Onset: 01-25-2023 02-06-2023 Episodic Results Test Name Value Interpretation Reference Range Facility Adrenocorticotropic Hormone PLon 05-07-[address] 38.4 pg/mL Normal 7.2-63.3 [facility] Comment on above: Result Comment: ACTH reference interval for samples collected between 7 and 10 AM. Performed at: - [facility] [address], [place], [place] [id number] Power Generation Engineer: Juan Hendricks PhD, Phone: [phone] BY:[address] [place], [place] [phone] MEDICAL DIRECTORSTEFANO HOLT M.D. Performed By: #### H EPATIC, T4F, JER, CMP, TSH3 ####[address]#### ACTH ####[facility] , Complete Blood Count Auto Di ffon 05-07-2024 Basophils (Bld) [#/Vol] 0.2 10*3/uL Normal 0.0-0.2 [facility] Comment on above: Result Comment: PERF ORMED BY:[address] [place], [place] [id number] MEDICAL DIRECTORSTEFANO HOLT M.D. Performed By: #### C BC ####[address] Basophils/100 WBC (Bld) 2.9 % Normal . [facility] Comment on above: Performed By: #### C BC ####[address] Eosinophils (Bld) [#/Vol] 0.6 10*3/uL High 0.0-0.45 [facility] Comment on above: Performed By: #### C BC ####[address] Eosinophils/100 WBC (Bld) 8.7 % Normal . [facility] Comment on above: Performed By: #### C BC ####[address] Erythrocyte distribution width (RBC) [Ratio] 13.3 % Normal 11.9-15.3 [facility] Comment on above: Performed By: #### C BC ####[address] Hematocrit (Bld) [Volume fraction] 35.8 % Normal 34.0-46.4 [facility] Comment on above: Performed By: #### C BC ####[address] Hemoglobin (Bld) [Mass/Vol] 11.8 g/dL Normal 11.8-15.4 [facility] Comment on above: Performed By: #### C BC ####[address] Lymphocytes (Bld) [#/Vol] 1.2 10*3/uL Normal 1.00-4.8 [facility] Comment on above: Performed By: #### C BC ####[address] Lymphocytes/100 WBC (Bld) 17.8 % Normal . [facility] Comment on above: Performed By: #### C BC ####[address] MCH (RBC) [Entitic mass] 29.9 pg Normal 24.7-34.3 [facility] Comment on above: Performed By: #### C BC ####[address] MCV (RBC) [Entitic vol] 90.9 fL Normal 80-100 [facility] Comment on above: Performed By: #### C BC ####[address] Mean Corpuscular HGB Conc 32.9 g/dL Normal 32.0-35.0 [facility] Comment on above: Performed By: #### C BC ####[address] Monocytes (Bld) [#/Vol] 0.8 10*3/uL Normal 0.0-0.8 [facility] Comment on above: Performed By: #### C BC ####[address] [place] [address] [place] Monocytes/100 WBC (Bld) 11.6 % Normal . [facility] Comment on above: Performed By: #### C BC ####[address] Neutrophils (Bld) [#/Vol] 4.0 10*3/uL Normal 1.8-7.7 [facility] Comment on above: Performed By: #### C BC ####[address] Neutrophils/100 WBC (Bld) 59.0 % Normal . [facility] Comment on above: Performed By: #### C BC ####[address] NRBC% 0.0 /100{WBC} Normal 0-0.5 [facility] Comment on above: Performed By: #### C BC ####[address] Platelet mean volume (Bld) [Entitic vol] 8.2 fL Normal 6.3-10.7 [facility] Comment on above: Performed By: #### C BC ####[address] Platelets (Bld) [#/Vol] 225 10*3/uL Normal 150-450 [facility] Comment on above: Performed By: #### C BC ####[address] RBC (Bld) [#/Vol] 3.94 10*6/uL Normal 3.60-5.00 [facility] Comment on above: Performed By: #### C BC ####[address] WBC (Bld) [#/Vol] 6.8 10*3/uL Normal 3.8-11.6 [facility] Comment on above: Performed By: #### C BC ####[address] Comprehensive Metabolic Pane onesimo 08--2024 Albumin [Mass/Vol] 3.8 g/dL Normal 3.5-5.7 [facility] Comment on above: Performed By: #### H EPATIC, T4F, JER, CMP, TSH3 ####[address]#### ACTH ####[facility] , Albumin/Globulin [Mass ratio] 1.3 {ratio} Normal [facility] Comment on above: Performed By: #### H EPATIC, T4F, JER, CMP, TSH3 ####[address]#### ACTH ####[facility] , ALP [Catalytic activity/Vol] 74 U/L Normal 34-104 [facility] Comment on above: Performed By: #### H EPATIC, T4F, JER, CMP, TSH3 ####[address]#### ACTH ####[facility] , ALT [Catalytic activity/Vol] 13 U/L Normal 7-52 [facility] Comment on above: Performed By: #### H EPATIC, T4F, JER, CMP, TSH3 ####[address]#### ACTH ####[facility] , Anion gap [Moles/Vol] 10.1 mmol/L Normal 6.0-15.0 [facility] Comment on above: Performed By: #### H EPATIC, T4F, JER, CMP, TSH3 ####[place] [address] [place]#### ACTH ####[facility] , AST [Catalytic activity/Vol] 20 U/L Normal 13-39 [facility] Comment on above: Performed By: #### H EPATIC, T4F, JER, CMP, TSH3 ####[place] [address]#### ACTH ####[facility] , Bilirubin [Mass/Vol] 0.6 mg/dL Normal 0.3-1.0 [facility] Comment on above: Performed By: #### H EPATIC, T4F, JER, CMP, TSH3 ####[address]#### ACTH ####[facility] , Calcium [Mass/Vol] 8.9 mg/dL Normal 8.6-10.3 [facility] Comment on above: Performed By: #### H EPATIC, T4F, JER, CMP, TSH3 ####[address]#### ACTH ####[facility] , Chloride [Moles/Vol] 96 mmol/L Low 98-107 [facility] Comment on above: Performed By: #### H EPATIC, T4F, JER, CMP, TSH3 ####[address]#### ACTH ####[facility] , CO2 [Moles/Vol] 29.3 mmol/L Normal 21.0-31.0 [facility] Comment on above: Performed By: #### H EPATIC, T4F, JER, CMP, TSH3 ####[address]#### ACTH ####[facility] , Creatinine [Mass/Vol] 0.93 mg/dL Normal 0.60-1.20 [facility] Comment on above: Performed By: #### H EPATIC, T4F, JER, CMP, TSH3 ####[address]#### ACTH ####[facility] , Creatinine Clr Calc Pharmacy 58.46 Normal [facility] Comment on above: Performed By: #### H EPATIC, T4F, JER, CMP, TSH3 ####[address]#### ACTH ####[facility] , GFR/1.73 sq M.predicted MDRD (S/P/Bld) [Vol rate/Area] mL/min/{1.73_m2} Normal [facility] Comment on above: Performed By: #### H EPATIC, T4F, JER, CMP, TSH3 ####[address]#### ACTH ####[facility] , Globulin (S) [Mass/Vol] 3.0 g/dL Normal [facility] Comment on above: Performed By: #### H EPATIC, T4F, JER, CMP, TSH3 ####[address]#### ACTH ####[facility] , Glucose [Mass/Vol] 92 mg/dL Normal 70-100 [facility] Comment on above: Result Comment: [facility] Glucose Reference Range is dependent on time and content of last meal. Glucose of more than 200 mg/dL in a nonstressed, ambulatory subject supports the diagnosis of Diabetes Mellitus. ADA recommended reference range Performed By: #### H EPATIC, T4F, JER, CMP, TSH3 ####[place] [address] [place]#### ACTH ####[facility] , Potassium [Moles/Vol] 4.4 mmol/L Normal 3.5-5.1 [facility] Comment on above: Performed By: #### H EPATIC, T4F, JER, CMP, TSH3 ####[place] [address] [place]#### ACTH ####[facility] , Protein [Mass/Vol] 6.8 g/dL Normal 6.4-8.9 [facility] Comment on above: Performed By: #### H EPATIC, T4F, JER, CMP, TSH3 ####[address]#### ACTH ####[facility] , Sodium [Moles/Vol] 131 mmol/L Low 136-145 [facility] Comment on above: Performed By: #### H EPATIC, T4F, JER, CMP, TSH3 ####[address]#### ACTH ####[facility] , Urea nitrogen [Mass/Vol] 13 mg/dL Normal 7-25 [facility] Comment on above: Performed By: #### H EPATIC, T4F, JER, CMP, TSH3 ####[address]#### ACTH ####[facility] , Cortisolon 05-07-2024 Cortisol 14.4 ug/dL Normal [facility] Comment on above: Result Comment: Refe rence range: AM 6 - 24 ug/dl PM <10 ug/dl [facility] vp communications and method: AMRITA UNICEL DXI, POLYCLONAL ANTIBODY CORTISOL ASSAY.PERFORMED BY:[address] [place], [place] [id number] MEDICAL DIRECTORSTEFANO HOLT M.D. Performed By: #### H EPATIC, T4F, JER, CMP, TSH3 ####[address]#### ACTH ####[facility] , Free T4 (Free Thyroxine)on 0 05-07-2024 Free T4 [Mass/Vol] 0.60 ng/dL Low 0.61-1.12 [facility] Comment on above: Performed By: #### H EPATIC, T4F, JER, CMP, TSH3 ####[address]#### ACTH ####[facility] , Hepatic Panelon 08-06-2024 Bilirubin,Indirect 0.5 mg/dL Normal [facility] Comment on above: Performed By: #### H EPATIC, T4F, JER, CMP, TSH3 ####[facility]#### ACTH ####[facility] , Bilirubin.indirect [Mass/Vol] 0.10 mg/dL Normal 0.03-0.18 [facility] Comment on above: Performed By: #### H EPATIC, T4F, JER, CMP, TSH3 ####[place] [address]#### ACTH ####[facility] , Thyroid Stimulating Hormoneo n 05-07-2024 TSH Qn 36.65 m[IU]/L High 0.45-5.33 [facility] Comment on above: Performed By: #### H EPATIC, T4F, JER, CMP, TSH3 ####[address]#### ACTH ####[facility] , Follow-Upon 04-23-2024 Follow-Up [id number] Perla Ibarra 1955 F Date Provider Department Center 04/23/2024 [facility] Family History Problem Relation Age of Onset Tuberculosis Mother Heart attack Brother Heart failure Maternal Grandmother Heart attack Maternal Grandfather Family Status - Relation Status Age at Mother Brother Maternal Grandmother Maternal Grandfather Level of Service:21140 AL OFFICE/OUTPATIENT ESTABLISHED MOD MDM 30 MIN Reason for Visit and Comments: Congestive Heart Failure [127] Coronary Artery Disease [187] Normal [facility] Cortisolon 03-29-2024 Cortisol 11.8 ug/dL Normal [facility] Comment on above: Result Comment: Refe rennayan range: AM 6 - 24 ug/dl PM <10 ug/dl [facility] vp communications and method: AMRITA UNICEL DXI, POLYCLONAL ANTIBODY CORTISOL ASSAY.PERFORMED BY:[place] [address] [address] [place], [place] [phone] MEDICAL DIRECTORSTEFANO HOLT M.D. Performed By: #### C ORT, T4F, TSH3 ####[place] [id number] [facility] Free T4 (Free Thyroxine)on 0 03-29-2024 Free T4 [Mass/Vol] 0.84 ng/dL Normal 0.61-1.12 [facility] Comment on above: Performed By: #### C ORT, T4F, TSH3 ####[place] [id number] [facility] Thyroid Stimulating Hormoneo n 03-29-2024 TSH Qn 20.08 m[IU]/L High 0.45-5.33 [facility] Comment on above: Performed By: #### C ORT, T4F, TSH3 ####[address] Alanine aminotransferase [En zymatic activity/volume] in Serum or PlasmaOrdered By: Aries Chavez on 03-26-2024 ALT [Catalytic activity/Vol] 17 U/L Normal 7-52 [facility] Comment on above: Performed By: #### C BC, CMP ####[address] Albumin [Mass/volume] in Ser um or Plasma by Bromocresol green (BCG) dye binding methoOrdered By: Aries Chavez on 03-26-2024 Albumin BCG dye [Mass/Vol] 3.9 g/dL 3.5-5.7 [facility] Alkaline phosphatase [Enzyma tic activity/volume] in Serum or PlasmaOrdered By: Aries Chavez on 03-26-2024 ALP [Catalytic activity/Vol] 123 U/L High 34-104 [facility] Comment on above: Performed By: #### C BC, CMP ####[place] [id number] [facility] Aspartate aminotransferase [ Enzymatic activity/volume] in Serum or PlasmaOrdered By: Aries Chavez on 03-26-2024 AST [Catalytic activity/Vol] 22 U/L Normal 13-39 [facility] Comment on above: Performed By: #### C BC, CMP ####[address] Automated basophil %Ordered By: Aries Chavez on 03-26-2024 Basophils/100 WBC (Bld) 3.0 % Normal . [facility] Comment on above: Performed By: #### C BC, CMP ####[address] Automated basophil countOrde red By: Aries Chavez on 03-26-2024 Basophils (Bld) [#/Vol] 0.2 10*3/uL Normal 0.0-0.2 [facility] Comment on above: Result Comment: PERF ORMED BY:[address] [place], [place] [phone] MEDICAL DIRECTORSTEFANO HOLT M.D. Performed By: #### C BC, CMP ####[address] Automated blood monocyte cou ntOrdered By: Aries Chavez on 03-26-2024 Monocytes (Bld) [#/Vol] 0.7 10*3/uL Normal 0.0-0.8 [facility] Comment on above: Performed By: #### C BC, CMP ####[address] Automated eosinophil %Ordere d By: Aries Chavez on 03-26-2024 Eosinophils/100 WBC (Bld) 11.6 % Normal . [facility] Comment on above: Performed By: #### C BC, CMP ####[address] Automated eosinophil countOr dered By: Aries Chavez on 03-26-2024 Eosinophils (Bld) [#/Vol] 0.7 10*3/uL High 0.0-0.45 [facility] Comment on above: Performed By: #### C BC, CMP ####[place] [address] [place] [id number] [facility] Automated monocyte %Ordered By: Aries Chavez on 03-26-2024 Monocytes/100 WBC (Bld) 11.9 % Normal . [facility] Comment on above: Performed By: #### C BC, CMP ####[place] [id number] [facility] Automated neutrophil %Ordere d By: Aries Chavez on 03-26-2024 Neutrophils/100 WBC (Bld) 50.5 % Normal . [facility] Comment on above: Performed By: #### C BC, CMP ####[place] [phone] [facility] Bilirubin.total [Mass/volume ] in Serum or PlasmaOrdered By: Aries Chavez on 03-26-2024 Bilirubin [Mass/Vol] 0.6 mg/dL Normal 0.3-1.0 [facility] Comment on above: Performed By: #### C BC, CMP ####[place] [phone] [facility] Calcium [Mass/volume] in Ser um or PlasmaOrdered By: Aries Chavez on 03-26-2024 Calcium [Mass/Vol] 9.3 mg/dL Normal 8.6-10.3 [facility] Comment on above: Performed By: #### C BC, CMP ####[place] [phone] [place] Carbon dioxide, total [Moles /volume] in Serum or PlasmaOrdered By: Aries Chavez on 03-26-2024 CO2 [Moles/Vol] 30.3 mmol/L Normal 21.0-31.0 [facility] Comment on above: Performed By: #### C BC, CMP ####[place] [phone] [place] Chloride [Moles/volume] in S leena or PlasmaOrdered By: Aries Chavez on 03-26-2024 Chloride [Moles/Vol] 96 mmol/L Low 98-107 [facility] Comment on above: Performed By: #### C BC, CMP ####[place] [address] [place] [address] [facility] Complete Blood Count Auto Di ffon 03-26-2024 Mean Corpuscular HGB Conc 33.3 g/dL Normal 32.0-35.0 [facility] Comment on above: Performed By: #### C BC, CMP ####[address] [address] [facility] NRBC% 0.1 /100{WBC} Normal 0-0.5 [facility] Comment on above: Performed By: #### C BC, CMP ####[address] [address] [facility] Comprehensive Metabolic Pane onesimo 03-26-2024 Albumin [Mass/Vol] 3.9 g/dL Normal 3.5-5.7 [facility] Comment on above: Performed By: #### C BC, CMP ####[place] [phone] [facility] Creatinine Clr Calc Pharmacy 62.20 Normal [facility] Comment on above: Result Comment: PERF ORMED BY:[address] [place], [place] [phone] MEDICAL NAHID HOLT M.D. Performed By: #### C BC, CMP ####[address] [address] [facility] GFR/1.73 sq M.predicted MDRD (S/P/Bld) [Vol rate/Area] mL/min/{1.73_m2} Normal [facility] Comment on above: Performed By: #### C BC, CMP ####[address] [address] [facility] Creatinine [Mass/volume] in Serum or PlasmaOrdered By: Aries Chavez on 03-26-2024 Creatinine [Mass/Vol] 0.83 mg/dL Normal 0.60-1.20 [facility] Comment on above: Performed By: #### C BC, CMP ####[place] [phone] [facility] Erythrocyte distribution wid th [Ratio] by Automated countOrdered By: Aries Chavez on 03-26-2024 Erythrocyte distribution width (RBC) [Ratio] 13.4 % Normal 11.9-15.3 [facility] Comment on above: Performed By: #### C BC, CMP ####[address] Erythrocytes [#/volume] in B lood by Automated countOrdered By: Aries Chavez on 03-26-2024 RBC (Bld) [#/Vol] 4.08 10*6/uL Normal 3.60-5.00 [facility] Comment on above: Performed By: #### C ALEXANDREA, CMP ####[address] Glucose [Mass/volume] in Ser um or PlasmaOrdered By: Aries Chavez on 03-26-2024 Glucose [Mass/Vol] 95 mg/dL Normal 70-100 [facility] Comment on above: ADA recommended refe rence rangeRandom Glucose Reference Range is dependent on time and content of last meal. Glucose of more than 200 mg/dL in a nonstressed, ambulatory subject supports the diagnosis of Diabetes Mellitus. Result Comment: [facility] Glucose Reference Range is dependent on time and content of last meal. Glucose of more than 200 mg/dL in a nonstressed, ambulatory subject supports the diagnosis of Diabetes Mellitus. ADA recommended reference range Performed By: #### C BC, CMP ####[place] [phone] [facility] Hematocrit [Volume Fraction] of Blood by Automated countOrdered By: Aries Chavez on 03-26-2024 Hematocrit (Bld) [Volume fraction] 36.6 % Normal 34.0-46.4 [facility] Comment on above: Performed By: #### C BC, CMP ####[place] [phone] [facility] Hemoglobin [Mass/volume] in BloodOrdered By: Aries Chavez on 03-26-2024 Hemoglobin (Bld) [Mass/Vol] 12.2 g/dL Normal 11.8-15.4 [facility] Comment on above: Performed By: #### C ALEXANDREA, CMP ####[address] Leukocytes [#/volume] correc gabriel for nucleated erythrocytes in Blood by Automated counOrdered By: Aries Chavez on 03-26-2024 WBC corrected for nucl RBC Auto (Bld) [#/Vol] 5.8 10*3/uL 3.8-11.6 [facility] Leukocytes [#/volume] in Blo od by Automated countOrdered By: Aries Chavez on 03-26-2024 WBC (Bld) [#/Vol] 5.8 10*3/uL Normal 3.8-11.6 [facility] Comment on above: Performed By: #### C ALEXANDREA, CMP ####[address] Lymphocytes [#/volume] in Bl ood by Automated countOrdered By: Aries Chavez on 03-26-2024 Lymphocytes (Bld) [#/Vol] 1.3 10*3/uL Normal 1.00-4.8 [facility] Comment on above: Performed By: #### C ALEXANDREA, CMP ####[address] Lymphocytes/100 leukocytes i n Blood by Automated countOrdered By: Aries Chavez on 03-26-2024 Lymphocytes/100 WBC (Bld) 23.0 % Normal . [facility] Comment on above: Performed By: #### C ALEXANDREA, CMP ####[address] MCH [Entitic mass] by Automa gabriel countOrdered By: Aries Chavez on 03-26-2024 MCH (RBC) [Entitic mass] 29.9 pg Normal 24.7-34.3 [facility] Comment on above: Performed By: #### C ALEXANDREA, CMP ####[address] MCHC Auto (RBC) [Mass/Vol]Or dered By: Aries Chavez on 03-26-2024 MCHC (RBC) [Mass/Vol] 33.3 g/dL 32.0-35.0 [facility] MCV [Entitic volume] by Auto mated countOrdered By: Aries Chavez on 03-26-2024 MCV (RBC) [Entitic vol] 89.7 fL Normal 80-100 [facility] Comment on above: Performed By: #### C BC, CMP ####[address] Neutrophils [#/volume] in Bl ood by Automated countOrdered By: Aries Chavez on 03-26-2024 Neutrophils (Bld) [#/Vol] 2.9 10*3/uL Normal 1.8-7.7 [facility] Comment on above: Performed By: #### C BC, CMP ####[address] No Panel InformationOrdered By: Aries Chavez on 03-26-2024 Estimated GFR (CKD-EPI) > 60.0 mL/Min [facility] Creatinine Clearance (Chem 62.20 [facility] Nucleated erythrocytes [Pres ence] in Blood by Automated countOrdered By: Aries Chavez on 03-26-2024 Nucleated RBC Auto Ql (Bld) 0.1 /100{WBC} 0-0.5 [facility] Platelet mean volume [Entiti c volume] in Blood by Automated countOrdered By: Aries Chavez on 03-26-2024 Platelet mean volume (Bld) [Entitic vol] 8.8 fL Normal 6.3-10.7 [facility] Comment on above: Performed By: #### C BC, CMP ####[address] Platelets [#/volume] in Bloo d by Automated countOrdered By: Aries Chavez on 03-26-2024 Platelets (Bld) [#/Vol] 235 10*3/uL Normal 150-450 [facility] Comment on above: Performed By: #### C BC, CMP ####[address] Potassium [Moles/volume] in Serum or PlasmaOrdered By: Aries Chavez on 03-26-2024 Potassium [Moles/Vol] 4.9 mmol/L Normal 3.5-5.1 [facility] Comment on above: Performed By: #### C BC, CMP ####[address] Protein [Mass/volume] in Ser um or PlasmaOrdered By: Aries Chavez on 03-26-2024 Protein [Mass/Vol] 7.0 g/dL Normal 6.4-8.9 [facility] Comment on above: Performed By: #### C BC, CMP ####[address] Serum globulin measurement b y calculation (mass/volume)Ordered By: Aries Chavez on 03-26-2024 Globulin (S) [Mass/Vol] 3.1 g/dL [facility] Comment on above: Performed By: #### C BC, CMP ####[place] [phone] [facility] Serum or plasma albumin/glob ulin mass ratioOrdered By: Aries Chavez on 03-26-2024 Albumin/Globulin [Mass ratio] 1.3 {ratio} [facility] Comment on above: Performed By: #### C BC, CMP ####[address] Serum or plasma anion gap de terminationOrdered By: Aries Chavez on 03-26-2024 Anion gap [Moles/Vol] 9.6 mmol/L Normal 6.0-15.0 [facility] Comment on above: Performed By: #### C BC, CMP ####[place] [phone] [facility] Sodium [Moles/volume] in Ser um or PlasmaOrdered By: Aries Chavez on 03-26-2024 Sodium [Moles/Vol] 131 mmol/L Low 136-145 [facility] Comment on above: Performed By: #### C BC, CMP ####[place] [phone] [facility] Urea nitrogen [Mass/volume] in Serum or PlasmaOrdered By: Aries Chavez on 03-26-2024 Urea nitrogen [Mass/Vol] 20 mg/dL Normal 04-25 [facility] Comment on above: Performed By: #### C BC, CMP ####[place] [phone] [facility] CT abdomen pelvis w conon CT abdomen pelvis w con Normal [facility] Complete Blood Count Auto Di ffon 03-14-2024 Basophils (Bld) [#/Vol] 0.2 10*3/uL Normal 0.0-0.2 [facility] Comment on above: Result Comment: PERF ORMED BY:[address] [place], [place] [id number] MEDICAL DIRECTORSTEFANO HOLT M.D. Performed By: #### C BC ####[address] Basophils/100 WBC (Bld) 2.9 % Normal . [facility] Comment on above: Performed By: #### C BC ####[address] Eosinophils (Bld) [#/Vol] 0.7 10*3/uL High 0.0-0.45 [facility] Comment on above: Performed By: #### C BC ####[place] [phone] [facility] Eosinophils/100 WBC (Bld) 10.7 % Normal . [facility] Comment on above: Performed By: #### C BC ####[address] Erythrocyte distribution width (RBC) [Ratio] 13.8 % Normal 11.9-15.3 [facility] Comment on above: Performed By: #### C BC ####[place] [phone] [facility] Hematocrit (Bld) [Volume fraction] 36.2 % Normal 34.0-46.4 [facility] Comment on above: Performed By: #### C BC ####[address] Hemoglobin (Bld) [Mass/Vol] 12.3 g/dL Normal 11.8-15.4 [facility] Comment on above: Performed By: #### C BC ####[address] Lymphocytes (Bld) [#/Vol] 1.4 10*3/uL Normal 1.00-4.8 [facility] Comment on above: Performed By: #### C BC ####[address] Lymphocytes/100 WBC (Bld) 22.2 % Normal . [facility] Comment on above: Performed By: #### C BC ####[address] MCH (RBC) [Entitic mass] 30.2 pg Normal 24.7-34.3 [facility] Comment on above: Performed By: #### C BC ####[address] MCV (RBC) [Entitic vol] 89.0 fL Normal 80-100 [facility] Comment on above: Performed By: #### C BC ####[address] Mean Corpuscular HGB Conc 34.0 g/dL Normal 32.0-35.0 [facility] Comment on above: Performed By: #### C BC ####[address] Monocytes (Bld) [#/Vol] 0.7 10*3/uL Normal 0.0-0.8 [facility] Comment on above: Performed By: #### C BC ####[address] Monocytes/100 WBC (Bld) 10.7 % Normal . [facility] Comment on above: Performed By: #### C BC ####[place] [phone] [facility] Neutrophils (Bld) [#/Vol] 3.5 10*3/uL Normal 1.8-7.7 [facility] Comment on above: Performed By: #### C BC ####[place] [phone] [facility] Neutrophils/100 WBC (Bld) 53.5 % Normal . [facility] Comment on above: Performed By: #### C BC ####[place] [phone] [facility] NRBC% 0.0 /100{WBC} Normal 0-0.5 [facility] Comment on above: Performed By: #### C BC ####[place] [id number] [facility] Platelet mean volume (Bld) [Entitic vol] 7.9 fL Normal 6.3-10.7 [facility] Comment on above: Performed By: #### C BC ####[place] [phone] [facility] Platelets (Bld) [#/Vol] 258 10*3/uL Normal 150-450 [facility] Comment on above: Performed By: #### C BC ####[place] [phone] [facility] RBC (Bld) [#/Vol] 4.07 10*6/uL Normal 3.60-5.00 [facility] Comment on above: Performed By: #### C BC ####[place] [phone] [facility] WBC (Bld) [#/Vol] 6.5 10*3/uL Normal 3.8-11.6 [facility] Comment on above: Performed By: #### C BC ####[place] [phone] [facility] Comprehensive Metabolic Pane onesimo 03-14-2024 Albumin [Mass/Vol] 4.0 g/dL Normal 3.5-5.7 [facility] Comment on above: Order Comment: STAT BUN/CREAT FOR CT Performed By: #### C MP ####[place] [phone] [facility] Albumin/Globulin [Mass ratio] 1.1 {ratio} Normal [facility] Comment on above: Order Comment: STAT BUN/CREAT FOR CT Performed By: #### C MP ####[place] [phone] [facility] ALP [Catalytic activity/Vol] 181 U/L High 34-104 [facility] Comment on above: Order Comment: STAT BUN/CREAT FOR CT Performed By: #### C MP ####[address] ALT [Catalytic activity/Vol] 28 U/L Normal 7-52 [facility] Comment on above: Order Comment: STAT BUN/CREAT FOR CT Performed By: #### C MP ####[place] [phone] [facility] Anion gap [Moles/Vol] 11.0 mmol/L Normal 6.0-15.0 [facility] Comment on above: Order Comment: STAT BUN/CREAT FOR CT Performed By: #### C MP ####[address] AST [Catalytic activity/Vol] 27 U/L Normal 13-39 [facility] Comment on above: Order Comment: STAT BUN/CREAT FOR CT Performed By: #### C MP ####[address] Bilirubin [Mass/Vol] 0.5 mg/dL Normal 0.3-1.0 [facility] Comment on above: Order Comment: STAT BUN/CREAT FOR CT Performed By: #### C MP ####[address] Calcium [Mass/Vol] 9.6 mg/dL Normal 8.6-10.3 [facility] Comment on above: Order Comment: STAT BUN/CREAT FOR CT Performed By: #### C MP ####[address] [address] [facility] Chloride [Moles/Vol] 98 mmol/L Normal 98-107 [facility] Comment on above: Order Comment: STAT BUN/CREAT FOR CT Performed By: #### C MP ####[place] [id number] [facility] CO2 [Moles/Vol] 27.8 mmol/L Normal 21.0-31.0 [facility] Comment on above: Order Comment: STAT BUN/CREAT FOR CT Performed By: #### C MP ####[place] [id number] [facility] Creatinine [Mass/Vol] 0.87 mg/dL Normal 0.60-1.20 [facility] Comment on above: Order Comment: STAT BUN/CREAT FOR CT Performed By: #### C MP ####[address] Creatinine Clr Calc Pharmacy 59.34 Normal [facility] Comment on above: Order Comment: STAT BUN/CREAT FOR CT Result Comment: PERF ORMED BY:[address] [place]ESISMalouGabeCASPER, [place] [phone] MEDICAL NAHID HOLT M.D. Performed By: #### C MP ####[place] [id number] [facility] GFR/1.73 sq M.predicted MDRD (S/P/Bld) [Vol rate/Area] mL/min/{1.73_m2} Normal [facility] Comment on above: Order Comment: STAT BUN/CREAT FOR CT Performed By: #### C MP ####[place] [id number] [facility] Globulin (S) [Mass/Vol] 3.6 g/dL Normal [facility] Comment on above: Order Comment: STAT BUN/CREAT FOR CT Performed By: #### C MP ####[place] [id number] [facility] Glucose [Mass/Vol] 96 mg/dL Normal 70-100 [facility] Comment on above: Order Comment: STAT BUN/CREAT FOR CT Result Comment: [facility] Glucose Reference Range is dependent on time and content of last meal. Glucose of more than 200 mg/dL in a nonstressed, ambulatory subject supports the diagnosis of Diabetes Mellitus. ADA recommended reference range Performed By: #### C MP ####[place] [id number] [facility] Potassium [Moles/Vol] 4.8 mmol/L Normal 3.5-5.1 [facility] Comment on above: Order Comment: STAT BUN/CREAT FOR CT Performed By: #### C MP ####[place] [id number] [facility] Protein [Mass/Vol] 7.6 g/dL Normal 6.4-8.9 [facility] Comment on above: Order Comment: STAT BUN/CREAT FOR CT Performed By: #### C MP ####[place] [id number] [facility] Sodium [Moles/Vol] 132 mmol/L Low 136-145 [facility] Comment on above: Order Comment: STAT BUN/CREAT FOR CT Performed By: #### C MP ####[place] [id number] [facility] Urea nitrogen [Mass/Vol] 23 mg/dL Normal 7-25 [facility] Comment on above: Order Comment: STAT BUN/CREAT FOR CT Performed By: #### C MP ####[place] [id number] [facility] Adrenocorticotropic Hormone PLon 02-27-[address] 39.6 pg/mL Normal 7.2-63.3 [facility] Comment on above: Result Comment: ACTH reference interval for samples collected between 7 and 10 AM. Performed at: - [facility] [id number] Power Generation Engineer: Juan Hendricks PhD, Phone: [phone] BY:[address] [place], [place] [phone] MEDICAL DIRECTORSTEFANO HOLT M.D. Performed By: #### T 4F, CMP, TSH3, JER ####[address]#### ACTH ####[facility] , Complete Blood Count Auto Di ffon 02-27-2024 Basophils (Bld) [#/Vol] 0.2 10*3/uL Normal 0.0-0.2 [facility] Comment on above: Result Comment: PERF ORMED BY:[address] [place], [place] [phone] MEDICAL DIRECTORSTEFANO HOLT M.D. Performed By: #### C BC ####[address] Basophils/100 WBC (Bld) 3.5 % Normal . [facility] Comment on above: Performed By: #### C BC ####[address] Eosinophils (Bld) [#/Vol] 0.9 10*3/uL High 0.0-0.45 [facility] Comment on above: Performed By: #### C BC ####[address] Eosinophils/100 WBC (Bld) 13.9 % Normal . [facility] Comment on above: Performed By: #### C BC ####[address] Erythrocyte distribution width (RBC) [Ratio] 14.0 % Normal 11.9-15.3 [facility] Comment on above: Performed By: #### C BC ####[address] Hematocrit (Bld) [Volume fraction] 35.5 % Normal 34.0-46.4 [facility] Comment on above: Performed By: #### C BC ####[address] Hemoglobin (Bld) [Mass/Vol] 11.7 g/dL Low 11.8-15.4 [facility] Comment on above: Performed By: #### C BC ####[address] Lymphocytes (Bld) [#/Vol] 1.2 10*3/uL Normal 1.00-4.8 [facility] Comment on above: Performed By: #### C BC ####[address] Lymphocytes/100 WBC (Bld) 17.7 % Normal . [facility] Comment on above: Performed By: #### C BC ####[address] MCH (RBC) [Entitic mass] 29.6 pg Normal 24.7-34.3 [facility] Comment on above: Performed By: #### C BC ####[address] MCV (RBC) [Entitic vol] 89.5 fL Normal 80-100 [facility] Comment on above: Performed By: #### C BC ####[address] Mean Corpuscular HGB Conc 33.0 g/dL Normal 32.0-35.0 [facility] Comment on above: Performed By: #### C BC ####[address] Monocytes (Bld) [#/Vol] 0.7 10*3/uL Normal 0.0-0.8 [facility] Comment on above: Performed By: #### C BC ####[address] Monocytes/100 WBC (Bld) 11.0 % Normal . [facility] Comment on above: Performed By: #### C BC ####[address] Neutrophils (Bld) [#/Vol] 3.6 10*3/uL Normal 1.8-7.7 [facility] Comment on above: Performed By: #### C BC ####[place] [id number] [facility] Neutrophils/100 WBC (Bld) 53.9 % Normal . [facility] Comment on above: Performed By: #### C BC ####[place] [id number] [facility] NRBC% 0.2 /100{WBC} Normal 0-0.5 [facility] Comment on above: Performed By: #### C BC ####[place] [id number] [facility] Platelet mean volume (Bld) [Entitic vol] 8.3 fL Normal 6.3-10.7 [facility] Comment on above: Performed By: #### C BC ####[place] [id number] [facility] Platelets (Bld) [#/Vol] 262 10*3/uL Normal 150-450 [facility] Comment on above: Performed By: #### C BC ####[place] [id number] [facility] RBC (Bld) [#/Vol] 3.97 10*6/uL Normal 3.60-5.00 [facility] Comment on above: Performed By: #### C BC ####[place] [id number] [facility] WBC (Bld) [#/Vol] 6.7 10*3/uL Normal 3.8-11.6 [facility] Comment on above: Performed By: #### C BC ####[place] [id number] [facility] Comprehensive Metabolic Pane onesimo 02-27-2024 Albumin [Mass/Vol] 3.8 g/dL Normal 3.5-5.7 [facility] Comment on above: Performed By: #### T 4F, CMP, TSH3, JER ####[place] [id number] [facility]#### ACTH ####[facility] , Albumin/Globulin [Mass ratio] 1.1 {ratio} Normal [facility] Comment on above: Performed By: #### T 4F, CMP, TSH3, JER ####[address]#### ACTH ####[facility] , ALP [Catalytic activity/Vol] 370 U/L High 34-104 [facility] Comment on above: Performed By: #### T 4F, CMP, TSH3, JER ####[address]#### ACTH ####[facility] , ALT [Catalytic activity/Vol] 143 U/L High 7-52 [facility] Comment on above: Performed By: #### T 4F, CMP, TSH3, JER ####[place] [address] [place]#### ACTH ####[facility] , Anion gap [Moles/Vol] 8.9 mmol/L Normal 6.0-15.0 [facility] Comment on above: Performed By: #### T 4F, CMP, TSH3, JER ####[address]#### ACTH ####[facility] , AST [Catalytic activity/Vol] 98 U/L High 13-39 [facility] Comment on above: Performed By: #### T 4F, CMP, TSH3, JER ####[place] [address] [place]#### ACTH ####[facility] , Bilirubin [Mass/Vol] 0.6 mg/dL Normal 0.3-1.0 [facility] Comment on above: Performed By: #### T 4F, CMP, TSH3, JER ####[place] [address] [place]#### ACTH ####[facility] , Calcium [Mass/Vol] 9.6 mg/dL Normal 8.6-10.3 [facility] Comment on above: Performed By: #### T 4F, CMP, TSH3, JER ####[address]#### ACTH ####[facility] , Chloride [Moles/Vol] 97 mmol/L Low 98-107 [facility] Comment on above: Performed By: #### T 4F, CMP, TSH3, JER ####[address]#### ACTH ####[facility] , CO2 [Moles/Vol] 29.6 mmol/L Normal 21.0-31.0 [facility] Comment on above: Performed By: #### T 4F, CMP, TSH3, JER ####[place] [address] [place]#### ACTH ####[facility] , Creatinine [Mass/Vol] 0.80 mg/dL Normal 0.60-1.20 [facility] Comment on above: Performed By: #### T 4F, CMP, TSH3, JER ####[address]#### ACTH ####[facility] , Creatinine Clr Calc Pharmacy 64.54 Normal [facility] Comment on above: Performed By: #### T 4F, CMP, TSH3, JER ####[place] [address] [place]#### ACTH ####[facility] , GFR/1.73 sq M.predicted MDRD (S/P/Bld) [Vol rate/Area] mL/min/{1.73_m2} Normal [facility] Comment on above: Performed By: #### T 4F, CMP, TSH3, JER ####[place] [address] [place]#### ACTH ####[facility] , Globulin (S) [Mass/Vol] 3.6 g/dL Normal [facility] Comment on above: Performed By: #### T 4F, CMP, TSH3, JER ####[place] [address] [place]#### ACTH ####[facility] , Glucose [Mass/Vol] 95 mg/dL Normal 70-100 [facility] Comment on above: Result Comment: [facility] Glucose Reference Range is dependent on time and content of last meal. Glucose of more than 200 mg/dL in a nonstressed, ambulatory subject supports the diagnosis of Diabetes Mellitus. ADA recommended reference range Performed By: #### T 4F, CMP, TSH3, JER ####[address]#### ACTH ####[facility] , Potassium [Moles/Vol] 4.5 mmol/L Normal 3.5-5.1 [facility] Comment on above: Performed By: #### T 4F, CMP, TSH3, JER ####[place] [address] [place]#### ACTH ####[facility] , Protein [Mass/Vol] 7.4 g/dL Normal 6.4-8.9 [facility] Comment on above: Performed By: #### T 4F, CMP, TSH3, JER ####[place] [address] [place]#### ACTH ####[facility] , Sodium [Moles/Vol] 131 mmol/L Low 136-145 [facility] Comment on above: Performed By: #### T 4F, CMP, TSH3, JER ####[place] [address] [place]#### ACTH ####[facility] , Urea nitrogen [Mass/Vol] 12 mg/dL Normal 7-25 [facility] Comment on above: Performed By: #### T 4F, CMP, TSH3, JER ####[facility] [place] [id number] [facility]#### ACTH ####[facility] , Cortisolon 02-27-2024 Cortisol 17.4 ug/dL Normal [facility] Comment on above: Result Comment: Refe rence range: AM 6 - 24 ug/dl PM <10 ug/dl [facility] vp communications and method: Brndstr UNICEL DXI, POLYCLONAL ANTIBODY CORTISOL ASSAY.PERFORMED BY:[address] [id number] MEDICAL DIRECTORSTEFANO HOLT M.D. Performed By: #### T 4F, CMP, TSH3, JER ####[address]#### ACTH ####[facility] , No Panel InformationOrdered By: Aries Chavez on 02-27-2024 Adrenocorticotropic Hormone 39.6 pg/mL 7.2-63.3 [facility] Comment on above: ACTH reference inter wendy for samples collected between 7 and10 AM.Performed at: [address] [id number] Director: Juan Hendricks PhD, Phone: [phone] Random cortisol measurementO rdered By: Aries Chavez on 02-27-2024 Cortisol [Mass/Vol] 17.4 ug/dL [facility] Comment on above: [facility] vp communications and method:Brndstr UNICEL DXI, POLYCLONAL ANTIBODY CORTISOL ASSAY.Reference range: AM 6 - 24 ug/dl PM <10 ug/dl Thyrotropin [Units/volume] i n Serum or PlasmaOrdered By: Aries Chavez on 02-27-2024 TSH Qn 23.15 m[IU]/L High 0.45-5.33 [facility] Comment on above: Performed By: #### T 4F, CMP, TSH3, JER ####[address]#### ACTH ####[facility] , Thyroxine (T4) free [Mass/vo lume] in Serum or PlasmaOrdered By: Aries Chavez on 02-27-2024 Free T4 [Mass/Vol] 0.91 ng/dL Normal 0.61-1.12 [facility] Comment on above: Performed By: #### T 4F, CMP, TSH3, JER ####[address]#### ACTH ####[facility] , Adrenocorticotropic Hormone PLon 01-16-[address] 34.0 pg/mL Normal 7.2-63.3 [facility] Comment on above: Result Comment: ACTH reference interval for samples collected between 7 and 10 AM. Performed at: [facility] [id number] Power Generation Engineer: Juan Hendricks PhD, Phone: [phone] BY:[address] ESP[place]ITOCASPER, [place] [phone] MEDICAL DIRECTORSTEFANO HOLT M.D. Performed By: #### T SH3, CMP, T4F, JER ####[address]#### ACTH ####[facility] , Complete Blood Count Auto Di ffon 01-16-2024 Basophils (Bld) [#/Vol] 0.2 10*3/uL Normal 0.0-0.2 [facility] Comment on above: Result Comment: PERF ORMED BY:[place] [address] [address] [place], [place] [phone] MEDICAL DIRECTORSTEFANO HOLT M.D. Performed By: #### C BC ####[address] Basophils/100 WBC (Bld) 2.5 % Normal . [facility] Comment on above: Performed By: #### C BC ####[address] Eosinophils (Bld) [#/Vol] 0.5 10*3/uL High 0.0-0.45 [facility] Comment on above: Performed By: #### C BC ####[address] Eosinophils/100 WBC (Bld) 8.2 % Normal . [facility] Comment on above: Performed By: #### C BC ####[address] Erythrocyte distribution width (RBC) [Ratio] 18.1 % High 11.9-15.3 [facility] Comment on above: Performed By: #### C BC ####[address] Hematocrit (Bld) [Volume fraction] 35.0 % Normal 34.0-46.4 [facility] Comment on above: Performed By: #### C BC ####[address] Hemoglobin (Bld) [Mass/Vol] 11.5 g/dL Low 11.8-15.4 [facility] Comment on above: Performed By: #### C BC ####[address] Lymphocytes (Bld) [#/Vol] 1.0 10*3/uL Normal 1.00-4.8 [facility] Comment on above: Performed By: #### C BC ####[address] Lymphocytes/100 WBC (Bld) 15.2 % Normal . [facility] Comment on above: Performed By: #### C BC ####[address] MCH (RBC) [Entitic mass] 28.2 pg Normal 24.7-34.3 [facility] Comment on above: Performed By: #### C BC ####[place] [address] [place] MCV (RBC) [Entitic vol] 85.5 fL Normal 80-100 [facility] Comment on above: Performed By: #### C BC ####[address] Mean Corpuscular HGB Conc 32.9 g/dL Normal 32.0-35.0 [facility] Comment on above: Performed By: #### C BC ####[address] Monocytes (Bld) [#/Vol] 0.6 10*3/uL Normal 0.0-0.8 [facility] Comment on above: Performed By: #### C BC ####[address] Monocytes/100 WBC (Bld) 9.5 % Normal . [facility] Comment on above: Performed By: #### C BC ####[address] Neutrophils (Bld) [#/Vol] 4.2 10*3/uL Normal 1.8-7.7 [facility] Comment on above: Performed By: #### C BC ####[address] Neutrophils/100 WBC (Bld) 64.6 % Normal . [facility] Comment on above: Performed By: #### C BC ####[address] NRBC% 0.1 /100{WBC} Normal 0-0.5 [facility] Comment on above: Performed By: #### C BC ####[address] Platelet mean volume (Bld) [Entitic vol] 7.9 fL Normal 6.3-10.7 [facility] Comment on above: Performed By: #### C BC ####[address] Platelets (Bld) [#/Vol] 272 10*3/uL Normal 150-450 [facility] Comment on above: Performed By: #### C BC ####[address] RBC (Bld) [#/Vol] 4.09 10*6/uL Normal 3.60-5.00 [facility] Comment on above: Performed By: #### C BC ####[address] WBC (Bld) [#/Vol] 6.5 10*3/uL Normal 3.8-11.6 [facility] Comment on above: Performed By: #### C BC ####[address] Comprehensive Metabolic Pane onesimo 01-16-2024 Albumin [Mass/Vol] 3.9 g/dL Normal 3.5-5.7 [facility] Comment on above: Performed By: #### T SH3, CMP, T4F, JER ####[address]#### ACTH ####[facility] , Albumin/Globulin [Mass ratio] 1.1 {ratio} Normal [facility] Comment on above: Performed By: #### T SH3, CMP, T4F, JER ####[address]#### ACTH ####[facility] , ALP [Catalytic activity/Vol] 115 U/L High 34-104 [facility] Comment on above: Performed By: #### T SH3, CMP, T4F, JER ####[address]#### ACTH ####[facility] , ALT [Catalytic activity/Vol] 49 U/L Normal 7-52 [facility] Comment on above: Performed By: #### T SH3, CMP, T4F, JER ####[address]#### ACTH ####[facility] , Anion gap [Moles/Vol] 7.1 mmol/L Normal 6.0-15.0 [facility] Comment on above: Performed By: #### T SH3, CMP, T4F, JER ####[address]#### ACTH ####[facility] , AST [Catalytic activity/Vol] 43 U/L High 13-39 [facility] Comment on above: Performed By: #### T SH3, CMP, T4F, JER ####[address]#### ACTH ####[facility] , Bilirubin [Mass/Vol] 0.6 mg/dL Normal 0.3-1.0 [facility] Comment on above: Performed By: #### T SH3, CMP, T4F, JER ####[address]#### ACTH ####[facility] , Calcium [Mass/Vol] 9.5 mg/dL Normal 8.6-10.3 [facility] Comment on above: Performed By: #### T SH3, CMP, T4F, JER ####[address]#### ACTH ####[facility] , Chloride [Moles/Vol] 99 mmol/L Normal 98-107 [facility] Comment on above: Performed By: #### T SH3, CMP, T4F, JER ####[place] [address] [place]#### ACTH ####[facility] , CO2 [Moles/Vol] 29.3 mmol/L Normal 21.0-31.0 [facility] Comment on above: Performed By: #### T SH3, CMP, T4F, JER ####[place] [id number] [place]#### ACTH ####[facility] , Creatinine [Mass/Vol] 0.68 mg/dL Normal 0.60-1.20 [facility] Comment on above: Performed By: #### T SH3, CMP, T4F, JER ####[place] [address] [place]#### ACTH ####[facility] , Creatinine Clr Calc Pharmacy 64.54 Normal [facility] Comment on above: Performed By: #### T SH3, CMP, T4F, JER ####[place] [address] [place]#### ACTH ####[facility] , GFR/1.73 sq M.predicted MDRD (S/P/Bld) [Vol rate/Area] mL/min/{1.73_m2} Normal [facility] Comment on above: Performed By: #### T SH3, CMP, T4F, JER ####[address]#### ACTH ####[facility] , Globulin (S) [Mass/Vol] 3.7 g/dL Normal [facility] Comment on above: Performed By: #### T SH3, CMP, T4F, JER ####[place] [address] [place]#### ACTH ####[facility] , Glucose [Mass/Vol] 92 mg/dL Normal 70-100 [facility] Comment on above: Result Comment: [facility] Glucose Reference Range is dependent on time and content of last meal. Glucose of more than 200 mg/dL in a nonstressed, ambulatory subject supports the diagnosis of Diabetes Mellitus. ADA recommended reference range Performed By: #### T SH3, CMP, T4F, JER ####[place] [address] [place]#### ACTH ####[facility] , Potassium [Moles/Vol] 4.4 mmol/L Normal 3.5-5.1 [facility] Comment on above: Performed By: #### T SH3, CMP, T4F, JER ####[address]#### ACTH ####[facility] , Protein [Mass/Vol] 7.6 g/dL Normal 6.4-8.9 [facility] Comment on above: Performed By: #### T SH3, CMP, T4F, JER ####[address]#### ACTH ####[facility] , Sodium [Moles/Vol] 131 mmol/L Low 136-145 [facility] Comment on above: Performed By: #### T SH3, CMP, T4F, JER ####[address]#### ACTH ####[facility] , Urea nitrogen [Mass/Vol] 16 mg/dL Normal 7-25 [facility] Comment on above: Performed By: #### T SH3, CMP, T4F, JER ####[address]#### ACTH ####[facility] , Cortisolon 01-16-2024 Cortisol 14.4 ug/dL Normal [facility] Comment on above: Result Comment: Refe rence range: AM 6 - 24 ug/dl PM <10 ug/dl [facility] vp communications and method: AMRITA UNICEL DXI, POLYCLONAL ANTIBODY CORTISOL ASSAY.PERFORMED BY:[address] GENESISMalouGabeTORSTEN, [place] [phone] MEDICAL NAHID HOLT M.D. Performed By: #### T SH3, CMP, T4F, JER ####[place] [address] [place]#### ACTH ####[facility] , Free T4 (Free Thyroxine)on 0 4-16-2024 Free T4 [Mass/Vol] 0.56 ng/dL Low 0.61-1.12 [facility] Comment on above: Performed By: #### T SH3, CMP, T4F, JER ####[address]#### ACTH ####[facility] , Thyroid Stimulating Hormoneo n 01-16-2024 TSH Qn 35.64 m[IU]/L High 0.45-5.33 [facility] Comment on above: Performed By: #### T SH3, CMP, T4F, JER ####[address]#### ACTH ####[facility] , Absolute reticulocyte countO rdered By: Aries Chavez on 12-28-2023 Reticulocytes (Bld) [#/Vol] 0.068 10*6/uL 0.024-0.08 4 [facility] Adrenocorticotropic Hormone PLon 12-28-[address] 11.2 pg/mL Normal 7.2-63.3 [facility] Comment on above: Result Comment: ACTH reference interval for samples collected between 7 and 10 AM. Performed at: [address] [id number] Power Generation Engineer: Juan Hendricks PhD, Phone: [phone] BY:[address] [place], [place] [phone] MEDICAL DIRECTORSTEFANO HOLT M.D. Performed By: #### T 4F, RETIC, FE and TIBC, CMP, LDH, [id number], JER, CBC, TSH3, KRISTI ####[address]#### EPO, ACTH ####[facility] , Alanine aminotransferase [En zymatic activity/volume] in Serum or PlasmaOrdered By: Aries Chavez on 12-28-2023 ALT [Catalytic activity/Vol] 23 U/L Normal 7-52 [facility] Comment on above: Performed By: #### T 4F, RETIC, FE and TIBC, CMP, LDH, [id number], JER, CBC, TSH3, KRISTI ####[place] [id number] [address]#### EPO, ACTH ####[facility] , Albumin [Mass/volume] in Ser um or Plasma by Bromocresol green (BCG) dye binding methoOrdered By: Aries Chavez on 12-28-2023 Albumin BCG dye [Mass/Vol] 3.8 g/dL 3.5-5.7 [facility] Alkaline phosphatase [Enzyma tic activity/volume] in Serum or PlasmaOrdered By: Aries Chavez on 12-28-2023 ALP [Catalytic activity/Vol] 93 U/L Normal 34-104 [facility] Comment on above: Performed By: #### T 4F, RETIC, FE and TIBC, CMP, LDH, [id number], JER, CBC, TSH3, KRISTI ####[address]#### EPO, ACTH ####[facility] , Aspartate aminotransferase [ Enzymatic activity/volume] in Serum or PlasmaOrdered By: Aries Chavez on 12-28-2023 AST [Catalytic activity/Vol] 25 U/L Normal 13-39 [facility] Comment on above: Performed By: #### T 4F, RETIC, FE and TIBC, CMP, LDH, [id number], JER, CBC, TSH3, KRISTI ####[place], [place] [address] [place]#### EPO, ACTH ####[facility] , Automated basophil %Ordered By: Aries Chavez on 12-28-2023 Basophils/100 WBC (Bld) 2.8 % Normal . [facility] Comment on above: Performed By: #### T 4F, RETIC, FE and TIBC, CMP, LDH, [id number], JER, CBC, TSH3, KRISTI ####[facility] [place] [address] [place]#### EPO, ACTH ####[facility] , Automated basophil countOrde red By: Aries Chavez on 12-28-2023 Basophils (Bld) [#/Vol] 0.2 10*3/uL Normal 0.0-0.2 [facility] Comment on above: Performed By: #### T 4F, RETIC, FE and TIBC, CMP, LDH, [id number], JER, CBC, TSH3, KRISTI ####[address]#### EPO, ACTH ####[facility] , Automated blood monocyte cou ntOrdered By: Aries Chavez on 12-28-2023 Monocytes (Bld) [#/Vol] 0.6 10*3/uL Normal 0.0-0.8 [facility] Comment on above: Performed By: #### T 4F, RETIC, FE and TIBC, CMP, LDH, [id number], JER, CBC, TSH3, KRISTI ####[place] [address] [place]#### EPO, ACTH ####[facility] , Automated eosinophil %Ordere d By: Aries Chavez on 12-28-2023 Eosinophils/100 WBC (Bld) 6.4 % Normal . [facility] Comment on above: Performed By: #### T 4F, RETIC, FE and TIBC, CMP, LDH, [id number], JER, CBC, TSH3, KRISTI ####[place] [address] [place]#### EPO, ACTH ####[facility] , Automated eosinophil countOr dered By: Aries Chavez on 12-28-2023 Eosinophils (Bld) [#/Vol] 0.5 10*3/uL High 0.0-0.45 [facility] Comment on above: Performed By: #### T 4F, RETIC, FE and TIBC, CMP, LDH, [id number], JER, CBC, TSH3, KRISTI ####[facility] [place] [address] [place]#### EPO, ACTH ####[facility] , Automated monocyte %Ordered By: Aries Chavez on 12-28-2023 Monocytes/100 WBC (Bld) 8.1 % Normal . [facility] Comment on above: Performed By: #### T 4F, RETIC, FE and TIBC, CMP, LDH, [id number], JER, CBC, TSH3, KRISTI ####[place] [address] [place] [address] [place]#### EPO, ACTH ####[facility] , Automated neutrophil %Ordere d By: Aries Chavez on 12-28-2023 Neutrophils/100 WBC (Bld) 65.6 % Normal . [facility] Comment on above: Performed By: #### T 4F, RETIC, FE and TIBC, CMP, LDH, [id number], JER, CBC, TSH3, KRISTI ####[place] [address] [place] [address] [place]#### EPO, ACTH ####[facility] , Bilirubin.total [Mass/volume ] in Serum or PlasmaOrdered By: Aries Chavez on 12-28-2023 Bilirubin [Mass/Vol] 0.4 mg/dL Normal 0.3-1.0 [facility] Comment on above: Performed By: #### T 4F, RETIC, FE and TIBC, CMP, LDH, [id number], JER, CBC, TSH3, KRISTI ####[place] [address] [place] [address] [place]#### EPO, ACTH ####[facility] , Calcium [Mass/volume] in Ser um or PlasmaOrdered By: Aries Chavez on 12-28-2023 Calcium [Mass/Vol] 9.5 mg/dL Normal 8.6-10.3 [facility] Comment on above: Performed By: #### T 4F, RETIC, FE and TIBC, CMP, LDH, [id number], JER, CBC, TSH3, KRISTI ####[address]#### EPO, ACTH ####[facility] , Carbon dioxide, total [Moles /volume] in Serum or PlasmaOrdered By: Aries Chavez on 12-28-2023 CO2 [Moles/Vol] 29.5 mmol/L Normal 21.0-31.0 [facility] Comment on above: Performed By: #### T 4F, RETIC, FE and TIBC, CMP, LDH, [id number], JER, CBC, TSH3, KRISTI ####[address]#### EPO, ACTH ####[facility] , Chloride [Moles/volume] in S leena or PlasmaOrdered By: Aries Chavez on 12-28-2023 Chloride [Moles/Vol] 94 mmol/L Low 98-107 [facility] Comment on above: Performed By: #### T 4F, RETIC, FE and TIBC, CMP, LDH, [id number], JER, CBC, TSH3, KRISTI ####[place] [address] [place]#### EPO, ACTH ####[facility] , Complete Blood Count Auto Di ffon 12-28-2023 Mean Corpuscular HGB Conc 32.6 g/dL Normal 32.0-35.0 [facility] Comment on above: Performed By: #### T 4F, RETIC, FE and TIBC, CMP, LDH, [id number], JER, CBC, TSH3, KRISTI ####[place] [address] [place]#### EPO, ACTH ####[facility] , NRBC% 0.1 /100{WBC} Normal 0-0.5 [facility] Comment on above: Performed By: #### T 4F, RETIC, FE and TIBC, CMP, LDH, [id number], JER, CBC, TSH3, KRISTI ####[place] [address] [place]#### EPO, ACTH ####[facility] , Comprehensive Metabolic Pane onesimo 12-28-2023 Albumin [Mass/Vol] 3.8 g/dL Normal 3.5-5.7 [facility] Comment on above: Performed By: #### T 4F, RETIC, FE and TIBC, CMP, LDH, [id number], JER, CBC, TSH3, KRISTI ####[place] [address] [place]#### EPO, ACTH ####[facility] , Creatinine Clr Calc Pharmacy 59.72 Normal [facility] Comment on above: Performed By: #### T 4F, RETIC, FE and TIBC, CMP, LDH, [id number], JER, CBC, TSH3, KRISTI ####[place] [address] [place]#### EPO, ACTH ####[facility] , GFR/1.73 sq M.predicted MDRD (S/P/Bld) [Vol rate/Area] mL/min/{1.73_m2} Normal [facility] Comment on above: Performed By: #### T 4F, RETIC, FE and TIBC, CMP, LDH, [id number], JER, CBC, TSH3, KRISTI ####[place] [address] [place]#### EPO, ACTH ####[facility] , Cortisolon 12-28-2023 Cortisol 13.7 ug/dL Normal [facility] Comment on above: Result Comment: Refe rence range: AM 6 - 24 ug/dl PM <10 ug/dl [facility] vp communications and method: AMRITA UNICEL DXI, POLYCLONAL ANTIBODY CORTISOL ASSAY.PERFORMED BY:[address]CASPER, [place] [phone] MEDICAL DIRECTORSTEFANO HOLT M.D. Performed By: #### T 4F, RETIC, FE and TIBC, CMP, LDH, [id number], JER, CBC, TSH3, KRISTI ####[address]#### EPO, ACTH ####[facility] , Creatinine [Mass/volume] in Serum or PlasmaOrdered By: Aries Chavez on 12-28-2023 Creatinine [Mass/Vol] 0.77 mg/dL Normal 0.60-1.20 [facility] Comment on above: Performed By: #### T 4F, RETIC, FE and TIBC, CMP, LDH, [id number], JER, CBC, TSH3, KRISTI ####[address]#### EPO, ACTH ####[facility] , Erythrocyte distribution wid th [Ratio] by Automated countOrdered By: Aries Chavez on 12-28-2023 Erythrocyte distribution width (RBC) [Ratio] 18.2 % High 11.9-15.3 [facility] Comment on above: Performed By: #### T 4F, RETIC, FE and TIBC, CMP, LDH, [id number], JER, CBC, TSH3, KRISTI ####[address]#### EPO, ACTH ####[facility] , Erythrocytes [#/volume] in B lood by Automated countOrdered By: Aries Chavez on 12-28-2023 RBC (Bld) [#/Vol] 4.15 10*6/uL Normal 3.60-5.00 [facility] Comment on above: Performed By: #### T 4F, RETIC, FE and TIBC, CMP, LDH, [id number], JER, CBC, TSH3, KRISTI ####[place] [address] [place]#### EPO, ACTH ####[facility] , Erythropoetin (EPO), Serumon 12-28-2023 Erythropoetin (EPO), Serum 3.5 m[iU]/mL Normal 2.6-18.5 [facility] Comment on above: Result Comment: M. STEVES [place] UniCel DxI 800 Immunoassay System Values obtained with different assay methods or kits cannot be used interchangeably. Results cannot be interpreted as absolute evidence of the presence or absence of malignant disease. Performed at: [address] [id number] Power Generation Engineer: Juan Hendricks PhD, Phone: [phone] BY:[address] [place]ESISMalouGabeCAS[place], [place] [phone] MEDICAL DIRECTORSTEFANO HOLT M.D. Performed By: #### T 4F, RETIC, FE and TIBC, CMP, LDH, [id number], JER, CBC, TSH3, KRISTI ####[place] [address]#### EPO, ACTH ####[facility] , Ferritin [Mass/volume] in Se rum or PlasmaOrdered By: Nedra Moon on 12-28-2023 Ferritin [Mass/Vol] 397.8 ng/mL High 11.0-306.8 [facility] Comment on above: Performed By: #### T 4F, RETIC, FE and TIBC, CMP, LDH, [id number], JER, CBC, TSH3, KRISTI ####[facility] [place] [address]#### EPO, ACTH ####[facility] , Folate [Mass/volume] in Seru m or PlasmaOrdered By: Aries Chavez on 12-28-2023 Folate [Mass/Vol] 13.7 ng/mL >5.[address] [facility] Comment on above: Folate reference ran ge: >5.9 ng/mlThe WHO technical consultation on folate and vitamin [id number] has determined that folate concentrations lessthan 4 ng/ml are considered deficient. Glucose [Mass/volume] in Ser um or PlasmaOrdered By: Aries Chavez on 12-28-2023 Glucose [Mass/Vol] 95 mg/dL Normal 70-100 [facility] Comment on above: ADA recommended refe rence rangeRandom Glucose Reference Range is dependent on time and content of last meal. Glucose of more than 200 mg/dL in a nonstressed, ambulatory subject supports the diagnosis of Diabetes Mellitus. Result Comment: Jay om Glucose Reference Range is dependent on time and content of last meal. Glucose of more than 200 mg/dL in a nonstressed, ambulatory subject supports the diagnosis of Diabetes Mellitus. ADA recommended reference range Performed By: #### T 4F, RETIC, FE and TIBC, CMP, LDH, [id number], JER, CBC, TSH3, KRISTI ####[place] [address]#### EPO, ACTH ####[facility] , Hematocrit [Volume Fraction] of Blood by Automated countOrdered By: Aries Chavez on 12-28-2023 Hematocrit (Bld) [Volume fraction] 34.9 % Normal 34.0-46.4 [facility] Comment on above: Performed By: #### T 4F, RETIC, FE and TIBC, CMP, LDH, [id number], JER, CBC, TSH3, KRISTI ####[address]#### EPO, ACTH ####[facility] , Hemoglobin [Mass/volume] in BloodOrdered By: Aries Chavez on 12-28-2023 Hemoglobin (Bld) [Mass/Vol] 11.4 g/dL Low 11.8-15.4 [facility] Comment on above: Performed By: #### T 4F, RETIC, FE and TIBC, CMP, LDH, [id number], JER, CBC, TSH3, KRISTI ####[address]#### EPO, ACTH ####[facility] , Iron [Mass/volume] in Serum or PlasmaOrdered By: Aries Chavez on 12-28-2023 Iron [Mass/Vol] 144 ug/dL Normal 50-212 [facility] Comment on above: Performed By: #### T 4F, RETIC, FE and TIBC, CMP, LDH, [id number], JER, CBC, TSH3, KRISTI ####[address]#### EPO, ACTH ####[facility] , Iron and TIBC Profileon 12-01 % Iron Saturation 46.3 % Normal 20-50 [facility] Comment on above: Performed By: #### T 4F, RETIC, FE and TIBC, CMP, LDH, [id number], JER, CBC, TSH3, KRISTI ####[address]#### EPO, ACTH ####[facility] , Total Iron Binding Capacity 311 ug/dL Normal 255-450 [facility] Comment on above: Performed By: #### T 4F, RETIC, FE and TIBC, CMP, LDH, [id number], JER, CBC, TSH3, KRISTI ####[place] [address] [place]#### EPO, ACTH ####[facility] , Iron binding capacity [Mass/ volume] in Serum or PlasmaOrdered By: Aries hCavez on 12-28-2023 Iron binding capacity [Mass/Vol] 311 ug/dL 255-450 [facility] Iron saturation [Mass Fracti on] in Serum or PlasmaOrdered By: Aries Chavez on 12-28-2023 Iron saturation [Mass fraction] 46.3 % 20-50 [facility] LDH Lactate Dehydrogenaseon 12-28-2023 LDH Lactate Dehydrogenase 135 U/L Low 140-271 [facility] Comment on above: Performed By: #### T 4F, RETIC, FE and TIBC, CMP, LDH, [id number], JER, CBC, TSH3, KRISTI ####[place] [address] [place]#### EPO, ACTH ####[facility] , Lactate dehydrogenase [Enzym atic activity/volume] in Serum or Plasma by Lactate to pyOrdered By: Aries Chavez on 12-28-2023 LDH Lactate to pyruvate reaction [Catalytic activity/Vol] 135 U/L Low 140-271 [facility] Leukocytes [#/volume] correc gabriel for nucleated erythrocytes in Blood by Automated counOrdered By: Aries Chavez on 12-28-2023 WBC corrected for nucl RBC Auto (Bld) [#/Vol] 7.6 10*3/uL 3.8-11.6 [facility] Leukocytes [#/volume] in Blo od by Automated countOrdered By: Aries Chavez on 12-28-2023 WBC (Bld) [#/Vol] 7.6 10*3/uL Normal 3.8-11.6 [facility] Comment on above: Performed By: #### T 4F, RETIC, FE and TIBC, CMP, LDH, [id number], JER, CBC, TSH3, KRISTI ####[facility] [id number] [place] [address] [place]#### EPO, ACTH ####[facility] , Lymphocytes [#/volume] in Bl ood by Automated countOrdered By: Aries Chavez on 12-28-2023 Lymphocytes (Bld) [#/Vol] 1.3 10*3/uL Normal 1.00-4.8 [facility] Comment on above: Performed By: #### T 4F, RETIC, FE and TIBC, CMP, LDH, [id number], JER, CBC, TSH3, KRISTI ####[facility] [place] [address] [place]#### EPO, ACTH ####[facility] , Lymphocytes/100 leukocytes i n Blood by Automated countOrdered By: Aries Chavez on 12-28-2023 Lymphocytes/100 WBC (Bld) 17.1 % Normal . [facility] Comment on above: Performed By: #### T 4F, RETIC, FE and TIBC, CMP, LDH, [id number], JER, CBC, TSH3, KRISTI ####[address]#### EPO, ACTH ####[facility] , MCH [Entitic mass] by Automa gabriel countOrdered By: Aries Chavez on 12-28-2023 MCH (RBC) [Entitic mass] 27.4 pg Normal 24.7-34.3 [facility] Comment on above: Performed By: #### T 4F, RETIC, FE and TIBC, CMP, LDH, [id number], JER, CBC, TSH3, KRISTI ####[place] [address] [place]#### EPO, ACTH ####[facility] , MCHC Auto (RBC) [Mass/Vol]Or dered By: Aries Chavez on 12-28-2023 MCHC (RBC) [Mass/Vol] 32.6 g/dL 32.0-35.0 [facility] MCV [Entitic volume] by Auto mated countOrdered By: Aries Chavez on 12-28-2023 MCV (RBC) [Entitic vol] 84.1 fL Normal 80-100 [facility] Comment on above: Performed By: #### T 4F, RETIC, FE and TIBC, CMP, LDH, [id number], JER, CBC, TSH3, KRISTI ####[place] [address] [place]#### EPO, ACTH ####[facility] , Neutrophils [#/volume] in Bl ood by Automated countOrdered By: Aries Chavez on 12-28-2023 Neutrophils (Bld) [#/Vol] 5.0 10*3/uL Normal 1.8-7.7 [facility] Comment on above: Performed By: #### T 4F, RETIC, FE and TIBC, CMP, LDH, [id number], JER, CBC, TSH3, KRISTI ####[place] [address] [place]#### EPO, ACTH ####[facility] , No Panel InformationOrdered By: Aries Chavez on 12-28-2023 Adrenocorticotropic Hormone 11.2 pg/mL 7.2-63.3 [facility] Comment on above: ACTH reference inter wendy for samples collected between 7 and10 AM.Performed at: [address] [id number] Director: Juan Hendricks PhD, Phone: [phone] Estimated GFR (CKD-EPI) > 60.0 mL/Min [facility] Creatinine Clearance (Chem 59.72 [facility] Nucleated erythrocytes [Pres ence] in Blood by Automated countOrdered By: Aries Chavez on 12-28-2023 Nucleated RBC Auto Ql (Bld) 0.1 /100{WBC} 0-0.5 [facility] Platelet mean volume [Entiti c volume] in Blood by Automated countOrdered By: Aries Chavez on 12-28-2023 Platelet mean volume (Bld) [Entitic vol] 8.1 fL Normal 6.3-10.7 [facility] Comment on above: Performed By: #### T 4F, RETIC, FE and TIBC, CMP, LDH, [id number], JER, CBC, TSH3, KRISTI ####[facility] [id number]#### EPO, ACTH ####[facility] , Platelets [#/volume] in Bloo d by Automated countOrdered By: Aries Chavez on 12-28-2023 Platelets (Bld) [#/Vol] 344 10*3/uL Normal 150-450 [facility] Comment on above: Performed By: #### T 4F, RETIC, FE and TIBC, CMP, LDH, [id number], JER, CBC, TSH3, KRISTI ####[facility] [id number]#### EPO, ACTH ####[facility] , Potassium [Moles/volume] in Serum or PlasmaOrdered By: Aries Chavez on 12-28-2023 Potassium [Moles/Vol] 4.8 mmol/L Normal 3.5-5.1 [facility] Comment on above: Performed By: #### T 4F, RETIC, FE and TIBC, CMP, LDH, [id number], JER, CBC, TSH3, KRISTI ####[place] [address]#### EPO, ACTH ####[facility] , Protein [Mass/volume] in Ser um or PlasmaOrdered By: Aries Chavez on 12-28-2023 Protein [Mass/Vol] 7.8 g/dL Normal 6.4-8.9 [facility] Comment on above: Performed By: #### T 4F, RETIC, FE and TIBC, CMP, LDH, [id number], JER, CBC, TSH3, KRISTI ####[place] [address]#### EPO, ACTH ####[facility] , Random cortisol measurementO rdered By: Aries Chavez on 12-28-2023 Cortisol [Mass/Vol] 13.7 ug/dL [facility] Comment on above: [facility] vp communications and method:Brndstr UNICEL DXI, POLYCLONAL ANTIBODY CORTISOL ASSAY.Reference range: AM 6 - 24 ug/dl PM <10 ug/dl Reticulocyte Counton 024 Reticulocyte Number 0.068 10*6/uL Normal 0.024-0 .08 4 [facility] Comment on above: Result Comment: PERF ORMED BY:[address] [place], [place] [phone] MEDICAL DIRECTORSTEFANO HOLT M.D. Performed By: #### T 4F, RETIC, FE and TIBC, CMP, LDH, [id number], JER, CBC, TSH3, KRISTI ####[place] [id number] [facility]#### EPO, ACTH ####[facility] , Reticulocyte Percent 1.6 % High 0.5-1.5 [facility] Comment on above: Performed By: #### T 4F, RETIC, FE and TIBC, CMP, LDH, [id number], JER, CBC, TSH3, KRISTI ####[facility] [id number] [place] [id number] [facility]#### EPO, ACTH ####[facility] , Reticulocytes/100 RBC Auto ( Bld)Ordered By: Aries Chavez on 12-28-2023 Reticulocytes/100 RBC (Bld) 1.6 % High 0.5-1.5 [facility] Serum globulin measurement b y calculation (mass/volume)Ordered By: Aries Chavez on 12-28-2023 Globulin (S) [Mass/Vol] 4.0 g/dL [facility] Comment on above: Performed By: #### T 4F, RETIC, FE and TIBC, CMP, LDH, [id number], JER, CBC, TSH3, KRISTI ####[facility] [place] [id number] [facility]#### EPO, ACTH ####[facility] , Serum or plasma albumin/glob ulin mass ratioOrdered By: Aries Chavez on 12-28-2023 Albumin/Globulin [Mass ratio] 1.0 {ratio} [facility] Comment on above: Performed By: #### T 4F, RETIC, FE and TIBC, CMP, LDH, [id number], JER, CBC, TSH3, KRISTI ####[facility] [id number] [place] [id number] [place]#### EPO, ACTH ####[facility] , Serum or plasma anion gap de terminationOrdered By: Aries Chavez on 12-28-2023 Anion gap [Moles/Vol] 9.3 mmol/L Normal 6.0-15.0 [facility] Comment on above: Performed By: #### T 4F, RETIC, FE and TIBC, CMP, LDH, [id number], JER, CBC, TSH3, KRISTI ####[facility]#### EPO, ACTH ####[facility] , Serum or plasma erythropoiet in (EPO) measurement (units/volume)Ordered By: Aries Chavez on 12-28-2023 Erythropoietin (EPO) Qn 3.5 mIU/mL 2.6-18.5 [facility] Comment on above: Amrita [employer] UniC el DxI 800 Immunoassay SystemValues obtained with different assay methods or kits cannotbe used interchangeably. Results cannot be interpreted asabsolute evidence of the presence or absence of malignantdisease.Performed at: [place] [id number] Director: Juan Hendricks PhD, Phone: [phone] Sodium [Moles/volume] in Ser um or PlasmaOrdered By: Aries Chavez on 12-28-2023 Sodium [Moles/Vol] 128 mmol/L Low 136-145 [facility] Comment on above: Performed By: #### T 4F, RETIC, FE and TIBC, CMP, LDH, [id number], JER, CBC, TSH3, KRISTI ####[facility] [place] [address] [place]#### EPO, ACTH ####[facility] , Thyrotropin [Units/volume] i n Serum or PlasmaOrdered By: Aries Chavez on 12-28-2023 TSH Qn 18.92 m[IU]/L High 0.45-5.33 [facility] Comment on above: Performed By: #### T 4F, RETIC, FE and TIBC, CMP, LDH, [id number], JER, CBC, TSH3, KRISTI ####[facility] [place] [address] [place]#### EPO, ACTH ####[facility] , Thyroxine (T4) free [Mass/vo lume] in Serum or PlasmaOrdered By: Aries Chavez on 12-28-2023 Free T4 [Mass/Vol] 0.37 ng/dL Low 0.61-1.12 [facility] Comment on above: Performed By: #### T 4F, RETIC, FE and TIBC, CMP, LDH, [id number], JER, CBC, TSH3, KRISTI ####[address]#### EPO, ACTH ####[facility] , Transferrin [Mass/volume] in Serum or PlasmaOrdered By: Aries Chavez on 12-28-2023 Transferrin [Mass/Vol] 222 mg/dL Normal 203-362 [facility] Comment on above: Performed By: #### T 4F, RETIC, FE and TIBC, CMP, LDH, [id number], JER, CBC, TSH3, KRISTI ####[address]#### EPO, ACTH ####[facility] , Urea nitrogen [Mass/volume] in Serum or PlasmaOrdered By: Aries Chavez on 12-28-2023 Urea nitrogen [Mass/Vol] 14 mg/dL Normal 7-25 [facility] Comment on above: Performed By: #### T 4F, RETIC, FE and TIBC, CMP, LDH, [id number], JER, CBC, TSH3, KRISTI ####[address]#### EPO, ACTH ####[facility] , Vit. B12/Folate Profileon Folate 13.7 ng/mL Normal >5.9 [facility] Comment on above: Result Comment: Chelsie te reference range: >5.9 ng/ml The WHO technical consultation on folate and vitamin b12 deficiencies has determined that folate concentrations less than 4 ng/ml are considered deficient. Performed By: #### T 4F, RETIC, FE and TIBC, CMP, LDH, [id number], JER, CBC, TSH3, KRISTI ####[place] [address] [place]#### EPO, ACTH ####[facility] , Vitamin B12 ser/plasOrdered By: Aries Scott on 12-28-2023 Cobalamin (Vitamin B12) [Mass/Vol] 333 pg/mL Normal 180-914 [facility] Comment on above: Performed By: #### T 4F, RETIC, FE and TIBC, CMP, LDH, [id number], JER, CBC, TSH3, KRISTI ####[place] [address]#### EPO, ACTH ####[facility] , Adrenocorticotropic Hormone PLon 12-05-[address] 31.7 pg/mL Normal 7.2-63.3 [facility] Comment on above: Result Comment: ACTH reference interval for samples collected between 7 and 10 AM. Performed at: [place] [facility] [id number] Power Generation Engineer: Juan Hendricks PhD, Phone: [phone] BY:[address] ESPOSITOTORSTEN, [place] [phone] MEDICAL DIRECTORSTEFANO HOLT M.D. Performed By: #### A CTH ####[facility] ,#### CMP, JER, T4F, TSH3 ####[address] Complete Blood Count Auto Di ffon 12-05-2023 Basophils (Bld) [#/Vol] 0.1 10*3/uL Normal 0.0-0.2 [facility] Comment on above: Result Comment: PERF ORMED BY:[place] [address] [address] [place], [place] [phone] MEDICAL DIRECTORSTEFANO HOLT M.D. Performed By: #### C BC ####[address] Basophils/100 WBC (Bld) 1.5 % Normal . [facility] Comment on above: Performed By: #### C BC ####[address] [place] [address] [place] Eosinophils (Bld) [#/Vol] 0.4 10*3/uL Normal 0.0-0.45 [facility] Comment on above: Performed By: #### C BC ####[address] Eosinophils/100 WBC (Bld) 5.6 % Normal . [facility] Comment on above: Performed By: #### C BC ####[address] Erythrocyte distribution width (RBC) [Ratio] 18.1 % High 11.9-15.3 [facility] Comment on above: Performed By: #### C BC ####[address] Hematocrit (Bld) [Volume fraction] 33.2 % Low 34.0-46.4 [facility] Comment on above: Performed By: #### C BC ####[address] Hemoglobin (Bld) [Mass/Vol] 10.7 g/dL Low 11.8-15.4 [facility] Comment on above: Performed By: #### C BC ####[address] Lymphocytes (Bld) [#/Vol] 1.7 10*3/uL Normal 1.00-4.8 [facility] Comment on above: Performed By: #### C BC ####[address] Lymphocytes/100 WBC (Bld) 22.5 % Normal . [facility] Comment on above: Performed By: #### C BC ####[address] MCH (RBC) [Entitic mass] 26.8 pg Normal 24.7-34.3 [facility] Comment on above: Performed By: #### C BC ####[address] MCV (RBC) [Entitic vol] 83.1 fL Normal 80-100 [facility] Comment on above: Performed By: #### C BC ####[address] Mean Corpuscular HGB Conc 32.2 g/dL Normal 32.0-35.0 [facility] Comment on above: Performed By: #### C BC ####[address] Monocytes (Bld) [#/Vol] 0.8 10*3/uL Normal 0.0-0.8 [facility] Comment on above: Performed By: #### C BC ####[address] Monocytes/100 WBC (Bld) 10.2 % Normal . [facility] Comment on above: Performed By: #### C BC ####[address] Neutrophils (Bld) [#/Vol] 4.5 10*3/uL Normal 1.8-7.7 [facility] Comment on above: Performed By: #### C BC ####[address] Neutrophils/100 WBC (Bld) 60.2 % Normal . [facility] Comment on above: Performed By: #### C BC ####[address] NRBC% 0.1 /100{WBC} Normal 0-0.5 [facility] Comment on above: Performed By: #### C BC ####[address] Platelet mean volume (Bld) [Entitic vol] 8.9 fL Normal 6.3-10.7 [facility] Comment on above: Performed By: #### C BC ####[address] Platelets (Bld) [#/Vol] 270 10*3/uL Normal 150-450 [facility] Comment on above: Performed By: #### C BC ####[address] RBC (Bld) [#/Vol] 4.00 10*6/uL Normal 3.60-5.00 [facility] Comment on above: Performed By: #### C BC ####[place] [id number] [facility] WBC (Bld) [#/Vol] 7.4 10*3/uL Normal 3.8-11.6 [facility] Comment on above: Performed By: #### C BC ####[address] Comprehensive Metabolic Pane onesimo 12-05-2023 Albumin [Mass/Vol] 3.5 g/dL Normal 3.5-5.7 [facility] Comment on above: Performed By: #### A CT ####[facility] ,#### CMP, JER, T4F, TSH3 ####[address] Albumin/Globulin [Mass ratio] 1.0 {ratio} Normal [facility] Comment on above: Performed By: #### A CT ####[facility] ,#### CMP, JER, T4F, TSH3 ####[place] [id number] [facility] ALP [Catalytic activity/Vol] 90 U/L Normal 34-104 [facility] Comment on above: Performed By: #### A CTH ####[facility] ,#### CMP, JER, T4F, TSH3 ####[address] ALT [Catalytic activity/Vol] 21 U/L Normal 7-52 [facility] Comment on above: Performed By: #### A CTH ####[facility] ,#### CMP, JER, T4F, TSH3 ####[address] Anion gap [Moles/Vol] 10.1 mmol/L Normal 6.0-15.0 [facility] Comment on above: Performed By: #### A CTH ####[facility] ,#### CMP, JER, T4F, TSH3 ####[address] AST [Catalytic activity/Vol] 22 U/L Normal 13-39 [facility] Comment on above: Performed By: #### A CTH ####[facility] ,#### CMP, JER, T4F, TSH3 ####[address] Bilirubin [Mass/Vol] 0.6 mg/dL Normal 0.3-1.0 [facility] Comment on above: Performed By: #### A CTH ####[facility] ,#### CMP, JER, T4F, TSH3 ####[address] Calcium [Mass/Vol] 9.6 mg/dL Normal 8.6-10.3 [facility] Comment on above: Performed By: #### A CTH ####[facility] ,#### CMP, JER, T4F, TSH3 ####[address] Chloride [Moles/Vol] 97 mmol/L Low 98-107 [facility] Comment on above: Performed By: #### A CTH ####[facility] ,#### CMP, JER, T4F, TSH3 ####[address] CO2 [Moles/Vol] 31.1 mmol/L High 21.0-31.0 [facility] Comment on above: Performed By: #### A CTH ####[facility] ,#### CMP, JER, T4F, TSH3 ####[address] Creatinine [Mass/Vol] 0.75 mg/dL Normal 0.60-1.20 [facility] Comment on above: Performed By: #### A CT ####[facility] ,#### CMP, JER, T4F, TSH3 ####[address] Creatinine Clr Calc Pharmacy 59.72 Normal [facility] Comment on above: Performed By: #### A CT ####[facility] ,#### CMP, JER, T4F, TSH3 ####[address] GFR/1.73 sq M.predicted MDRD (S/P/Bld) [Vol rate/Area] mL/min/{1.73_m2} Normal [facility] Comment on above: Performed By: #### A CT ####[facility] ,#### CMP, JER, T4F, TSH3 ####[address] Globulin (S) [Mass/Vol] 3.6 g/dL Normal [facility] Comment on above: Performed By: #### A CT ####[facility] ,#### CMP, JER, T4F, TSH3 ####[address] Glucose [Mass/Vol] 91 mg/dL Normal 70-100 [facility] Comment on above: Result Comment: Jay Glucose Reference Range is dependent on time and content of last meal. Glucose of more than 200 mg/dL in a nonstressed, ambulatory subject supports the diagnosis of Diabetes Mellitus. ADA recommended reference range Performed By: #### A CT ####[facility] ,#### CMP, JER, T4F, TSH3 ####[address] Potassium [Moles/Vol] 5.2 mmol/L High 3.5-5.1 [facility] Comment on above: Performed By: #### A CTH ####[facility] ,#### CMP, JER, T4F, TSH3 ####[address] Protein [Mass/Vol] 7.1 g/dL Normal 6.4-8.9 [facility] Comment on above: Performed By: #### A CTH ####[facility] ,#### CMP, JER, T4F, TSH3 ####[address] Sodium [Moles/Vol] 133 mmol/L Low 136-145 [facility] Comment on above: Performed By: #### A CTH ####[facility] ,#### CMP, JER, T4F, TSH3 ####[address] Urea nitrogen [Mass/Vol] 15 mg/dL Normal 7-25 [facility] Comment on above: Performed By: #### A CTH ####[facility] ,#### CMP, JER, T4F, TSH3 ####[address] Cortisolon 12-05-2023 Cortisol 8.1 ug/dL Normal [facility] Comment on above: Result Comment: Refe rence range: AM 6 - 24 ug/dl PM <10 ug/dl [facility] vp communications and method: AMRITA UNICEL DXI, POLYCLONAL ANTIBODY CORTISOL ASSAY.PERFORMED BY:[place] [address] [address] [place]ISP[place]ERT[place], [place] [phone] MEDICAL DIRECTORSTEFANO HOLT M.D. Performed By: #### A CTH ####[facility] ,#### CMP, JER, T4F, TSH3 ####[place] [address] Free T4 (Free Thyroxine)on 0 12-05-2023 Free T4 [Mass/Vol] 1.23 ng/dL High 0.61-1.12 [facility] Comment on above: Performed By: #### A CTH ####[facility] ,#### CMP, JER, T4F, TSH3 ####[address] Thyroid Stimulating Hormoneo n 12-05-2023 TSH Qn 0.01 m[IU]/L Low 0.45-5.33 [facility] Comment on above: Performed By: #### A CTH ####[facility] ,#### CMP, JER, T4F, TSH3 ####[address] Adrenocorticotropic Hormone PLon 11-15-[address] 27.5 pg/mL Normal 7.2-63.3 [facility] Comment on above: Result Comment: ACTH reference interval for samples collected between 7 and 10 AM. Performed at: [facility] [id number] Power Generation Engineer: Juan Hendricks PhD, Phone: [phone] BY:[address] [place]ISMalouGabeCAS[place], [place] [phone] MEDICAL DIRECTORSTEFANO HOLT M.D. Performed By: #### C ORT, T4F, TSH3, CMP ####[address]#### ACTH ####[facility] , Alanine aminotransferase [En zymatic activity/volume] in Serum or PlasmaOrdered By: Aries Chavez on 11-15-2023 ALT [Catalytic activity/Vol] 25 U/L Normal 7-52 [facility] Comment on above: Order Comment: NON F ASTING Performed By: #### C ORT, T4F, TSH3, CMP ####[place] [address]#### ACTH ####[facility] , Albumin [Mass/volume] in Ser um or Plasma by Bromocresol green (BCG) dye binding methoOrdered By: Aries Chavez on 11-15-2023 Albumin BCG dye [Mass/Vol] 3.3 g/dL 3.5-5.7 [facility] Alkaline phosphatase [Enzyma tic activity/volume] in Serum or PlasmaOrdered By: Aries Chavez on 11-15-2023 ALP [Catalytic activity/Vol] 109 U/L High 34-104 [facility] Comment on above: Order Comment: NON F ASTING Performed By: #### C ORT, T4F, TSH3, CMP ####[address]#### ACTH ####[facility] , Aspartate aminotransferase [ Enzymatic activity/volume] in Serum or PlasmaOrdered By: Aries Chavez on 11-15-2023 AST [Catalytic activity/Vol] 24 U/L Normal 13-39 [facility] Comment on above: Order Comment: NON F ASTING Performed By: #### C ORT, T4F, TSH3, CMP ####[address]#### ACTH ####[facility] , Automated basophil %Ordered By: Aries Chavez on 11-15-2023 Basophils/100 WBC (Bld) 2.9 % Normal . [facility] Comment on above: Performed By: #### C BC ####[address] Automated basophil countOrde red By: Aries Chavez on 11-15-2023 Basophils (Bld) [#/Vol] 0.2 10*3/uL Normal 0.0-0.2 [facility] Comment on above: Result Comment: PERF ORMED BY:[address] [place], [place] [phone] MEDICAL DIRECTORSTEFANO HOLT M.D. Performed By: #### C BC ####[address] Automated blood monocyte cou ntOrdered By: Aries Chavez on 11-15-2023 Monocytes (Bld) [#/Vol] 0.8 10*3/uL Normal 0.0-0.8 [facility] Comment on above: Performed By: #### C BC ####[address] Automated eosinophil %Ordere d By: Aries Chavez on 11-15-2023 Eosinophils/100 WBC (Bld) 5.2 % Normal . [facility] Comment on above: Performed By: #### C BC ####[address] Automated eosinophil countOr dered By: Aries Chavez on 11-15-2023 Eosinophils (Bld) [#/Vol] 0.4 10*3/uL Normal 0.0-0.45 [facility] Comment on above: Performed By: #### C BC ####[address] Automated monocyte %Ordered By: Aries Chavez on 11-15-2023 Monocytes/100 WBC (Bld) 11.6 % Normal . [facility] Comment on above: Performed By: #### C BC ####[address] Automated neutrophil %Ordere d By: Aries Chavez on 11-15-2023 Neutrophils/100 WBC (Bld) 54.9 % Normal . [facility] Comment on above: Performed By: #### C BC ####[address] Bilirubin.total [Mass/volume ] in Serum or PlasmaOrdered By: Aries Chavez on 11-15-2023 Bilirubin [Mass/Vol] 0.4 mg/dL Normal 0.3-1.0 [facility] Comment on above: Order Comment: NON F ASTING Performed By: #### C ORT, T4F, TSH3, CMP ####[facility] [id number] [place] [address] [facility]#### ACTH ####[facility] , CBC W Auto Differential pane l (Bld)on 11-15-2023 Basophils (Bld) [#/Vol] 0.2 10*3/uL 0.0 - 0.2 10*3/uL [facility] Basophils/100 WBC Manual cnt (Syn fld) 2.9 % . [facility] Eosinophils (Bld) [#/Vol] 0.4 10*3/uL 0.0 - 0.45 10*3/uL [facility] Eosinophils/100 WBC Manual cnt (Syn fld) 5.2 % . [facility] Erythrocyte distribution width (RBC) [Ratio] 16.8 % High 11.9 - 15.3 % [facility] Hematocrit (Bld) [Volume fraction] 30.3 % Low 34.0 - 46.4 % [facility] Hemoglobin (Bld) [Mass/Vol] 9.7 g/dL Low 11.8 - 15.4 g/dL [facility] Interpretation and review of laboratory results Abnormal [facility] Lymphocytes (Bld) [#/Vol] 1.7 10*3/uL 1.00 - 4.8 10*3/uL [facility] Lymphocytes/100 WBC Manual cnt (Syn fld) 25.4 % . [facility] MCH (RBC) [Entitic mass] 26.4 pg 24.7 - 34.3 pg [facility] MCHC (RBC) [Mass/Vol] 32.0 g/dL 32.0 - 35.0 g/dL [facility] MCV (RBC) [Entitic vol] 82.7 fL 80 - 100 fL [facility] Monocytes (Bld) [#/Vol] 0.8 10*3/uL 0.0 - 0.8 10*3/uL [facility] Monocytes+Macrophages/ 100 WBC Manual cnt (Syn fld) 11.6 % . [facility] Neutrophils (Bld) [#/Vol] 3.8 10*3/uL 1.8 - 7.7 10*3/uL [facility] Neutrophils/100 WBC Manual cnt (Syn fld) 54.9 % . [facility] NRBC 0.0 /100{WBC} 0 - 0.5 /100{WBC} [facility] Platelet mean volume (Bld) [Entitic vol] 7.5 fL 6.3 - 10.7 fL [facility] Platelets (Bld) [#/Vol] 509 10*3/uL High 150 - 450 10*3/uL [facility] RBC LM.HPF (Urine sed) [#/Area] 3.67 /[HPF] 3.60 - 5.00 [facility] WBC (Bld) [#/Vol] 6.9 10*3/uL 3.8 - 11.6 10*3/uL [facility] WBC LM.HPF (Urine sed) [#/Area] 6.9 10*3/uL 3.8 - 11.6 10*3/uL [facility] Calcium [Mass/volume] in Ser um or PlasmaOrdered By: Aries Chavez on 11-15-2023 Calcium [Mass/Vol] 9.8 mg/dL Normal 8.6-10.3 [facility] Comment on above: Order Comment: NON F ASTING Performed By: #### C ORT, T4F, TSH3, CMP ####[facility]#### ACTH ####[facility] , Carbon dioxide, total [Moles /volume] in Serum or PlasmaOrdered By: Aries Chavez on 11-15-2023 CO2 [Moles/Vol] 28.7 mmol/L Normal 21.0-31.0 [facility] Comment on above: Order Comment: NON F ASTING Performed By: #### C ORT, T4F, TSH3, CMP ####[facility] [place] [address] [place]#### ACTH ####[facility] , Chloride [Moles/volume] in S leena or PlasmaOrdered By: Aries Chavez on 11-15-2023 Chloride [Moles/Vol] 101 mmol/L Normal 98-107 [facility] Comment on above: Order Comment: NON F ASTING Performed By: #### C ORT, T4F, TSH3, CMP ####[address]#### ACTH ####[facility] , Complete Blood Count Auto Di ffon 11-15-2023 Mean Corpuscular HGB Conc 32.0 g/dL Normal 32.0-35.0 [facility] Comment on above: Performed By: #### C BC ####[address] NRBC% 0.0 /100{WBC} Normal 0-0.5 [facility] Comment on above: Performed By: #### C BC ####[address] Comprehensive Metabolic Pane onesimo 11-15-2023 Albumin [Mass/Vol] 3.3 g/dL Low 3.5-5.7 [facility] Comment on above: Order Comment: NON F ASTING Performed By: #### C ORT, T4F, TSH3, CMP ####[address]#### ACTH ####[facility] , Creatinine Clr Calc Pharmacy 65.11 Normal [facility] Comment on above: Order Comment: NON F ASTING Performed By: #### C ORT, T4F, TSH3, CMP ####[address]#### ACTH ####[facility] , GFR/1.73 sq M.predicted MDRD (S/P/Bld) [Vol rate/Area] mL/min/{1.73_m2} Normal [facility] Comment on above: Order Comment: NON F ASTING Performed By: #### C ORT, T4F, TSH3, CMP ####[address]#### ACTH ####[facility] , Cortisolon 11-15-2023 Cortisol 14.2 ug/dL Normal [facility] Comment on above: Order Comment: NON F ASTING Result Comment: Refe rence range: AM 6 - 24 ug/dl PM <10 ug/dl [facility] vp communications and method: AMRITA UNICEL DXI, POLYCLONAL ANTIBODY CORTISOL ASSAY.PERFORMED BY:[address] [place], [place] [phone] MEDICAL DIRECTORSTEFANO HOLT M.D. Performed By: #### C ORT, T4F, TSH3, CMP ####[place] [id number] [facility]#### ACTH ####[facility] , Creatinine [Mass/volume] in Serum or PlasmaOrdered By: Aries Chavez on 11-15-2023 Creatinine [Mass/Vol] 0.71 mg/dL Normal 0.60-1.20 [facility] Comment on above: Order Comment: NON F ASTING Performed By: #### C ORT, T4F, TSH3, CMP ####[place] [id number] [facility]#### ACTH ####[facility] , Erythrocyte distribution wid th [Ratio] by Automated countOrdered By: Aries Chavez on 11-15-2023 Erythrocyte distribution width (RBC) [Ratio] 16.8 % High 11.9-15.3 [facility] Comment on above: Performed By: #### C BC ####[place] [id number] [facility] Erythrocytes [#/volume] in B lood by Automated countOrdered By: Aries Chavez on 11-15-2023 RBC (Bld) [#/Vol] 3.67 10*6/uL Normal 3.60-5.00 [facility] Comment on above: Performed By: #### C BC ####[place] [id number] [facility] Glucose [Mass/volume] in Ser um or PlasmaOrdered By: Aries Chavez on 11-15-2023 Glucose [Mass/Vol] 100 mg/dL Normal 70-100 [facility] Comment on above: ADA recommended refe rence rangeRandom Glucose Reference Range is dependent on time and content of last meal. Glucose of more than 200 mg/dL in a nonstressed, ambulatory subject supports the diagnosis of Diabetes Mellitus. Order Comment: NON F ASTING Result Comment: Jay om Glucose Reference Range is dependent on time and content of last meal. Glucose of more than 200 mg/dL in a nonstressed, ambulatory subject supports the diagnosis of Diabetes Mellitus. ADA recommended reference range Performed By: #### C ORT, T4F, TSH3, CMP ####[address]#### ACTH ####[facility] , Hematocrit [Volume Fraction] of Blood by Automated countOrdered By: Aries Chavez on 11-15-2023 Hematocrit (Bld) [Volume fraction] 30.3 % Low 34.0-46.4 [facility] Comment on above: Performed By: #### C BC ####[address] Hemoglobin [Mass/volume] in BloodOrdered By: Aries Chavez on 11-15-2023 Hemoglobin (Bld) [Mass/Vol] 9.7 g/dL Low 11.8-15.4 [facility] Comment on above: Performed By: #### C BC ####[address] Leukocytes [#/volume] correc gabriel for nucleated erythrocytes in Blood by Automated counOrdered By: Aries Chavez on 11-15-2023 WBC corrected for nucl RBC Auto (Bld) [#/Vol] 6.9 10*3/uL 3.8-11.6 [facility] Leukocytes [#/volume] in Blo od by Automated countOrdered By: Aries Chavez on 11-15-2023 WBC (Bld) [#/Vol] 6.9 10*3/uL Normal 3.8-11.6 [facility] Comment on above: Performed By: #### C BC ####[address] Lymphocytes [#/volume] in Bl ood by Automated countOrdered By: Aries Chavez on 11-15-2023 Lymphocytes (Bld) [#/Vol] 1.7 10*3/uL Normal 1.00-4.8 [facility] Comment on above: Performed By: #### C BC ####[address] Lymphocytes/100 leukocytes i n Blood by Automated countOrdered By: Aries Chavez on 11-15-2023 Lymphocytes/100 WBC (Bld) 25.4 % Normal . [facility] Comment on above: Performed By: #### C BC ####[address] MCH [Entitic mass] by Automa gabriel countOrdered By: Aries Chavez on 11-15-2023 MCH (RBC) [Entitic mass] 26.4 pg Normal 24.7-34.3 [facility] Comment on above: Performed By: #### C BC ####[address] MCHC Auto (RBC) [Mass/Vol]Or dered By: Aries Chavez on 11-15-2023 MCHC (RBC) [Mass/Vol] 32.0 g/dL 32.0-35.0 [facility] MCV [Entitic volume] by Auto mated countOrdered By: Aries Chavez on 11-15-2023 MCV (RBC) [Entitic vol] 82.7 fL Normal 80-100 [facility] Comment on above: Performed By: #### C BC ####[address] Neutrophils [#/volume] in Bl ood by Automated countOrdered By: Aries Chavez on 11-15-2023 Neutrophils (Bld) [#/Vol] 3.8 10*3/uL Normal 1.8-7.7 [facility] Comment on above: Performed By: #### C BC ####[place] [address] No Panel InformationOrdered By: Aries Chavez on 11-15-2023 Adrenocorticotropic Hormone 27.5 pg/mL 7.2-63.3 [facility] Comment on above: ACTH reference inter wendy for samples collected between 7 and10 AM.Performed at: - [facility] [id number] Director: Juan Hendricks PhD, Phone: [phone] Estimated GFR (CKD-EPI) > 60.0 mL/Min [facility] Creatinine Clearance (Chem 65.11 [facility] Nucleated erythrocytes [Pres ence] in Blood by Automated countOrdered By: Aries Chavez on 11-15-2023 Nucleated RBC Auto Ql (Bld) 0.0 /100{WBC} 0-0.5 [facility] Platelet mean volume [Entiti c volume] in Blood by Automated countOrdered By: Aries Chavez on 11-15-2023 Platelet mean volume (Bld) [Entitic vol] 7.5 fL Normal 6.3-10.7 [facility] Comment on above: Performed By: #### C BC ####[address] Platelets [#/volume] in Bloo d by Automated countOrdered By: Aries Chavez on 11-15-2023 Platelets (Bld) [#/Vol] 509 10*3/uL High 150-450 [facility] Comment on above: Performed By: #### C BC ####[address] Potassium [Moles/volume] in Serum or PlasmaOrdered By: Aries Chavez on 11-15-2023 Potassium [Moles/Vol] 4.8 mmol/L Normal 3.5-5.1 [facility] Comment on above: Order Comment: NON F ASTING Performed By: #### C ORT, T4F, TSH3, CMP ####[address]#### ACTH ####[facility] , Protein [Mass/volume] in Ser um or PlasmaOrdered By: Aries Chavez on 11-15-2023 Protein [Mass/Vol] 7.9 g/dL Normal 6.4-8.9 [facility] Comment on above: Order Comment: NON F ASTING Performed By: #### C ORT, T4F, TSH3, CMP ####[address]#### ACTH ####[facility] , Random cortisol measurementO rdered By: Aries Chavez on 11-15-2023 Cortisol [Mass/Vol] 14.2 ug/dL [facility] Comment on above: [facility] vp communications and method:KuraturEL DXI, POLYCLONAL ANTIBODY CORTISOL ASSAY.Reference range: AM 6 - 24 ug/dl PM <10 ug/dl Serum globulin measurement b y calculation (mass/volume)Ordered By: Aries Chavez on 11-15-2023 Globulin (S) [Mass/Vol] 4.6 g/dL [facility] Comment on above: Order Comment: NON F ASTING Performed By: #### C ORT, T4F, TSH3, CMP ####[address]#### ACTH ####[facility] , Serum or plasma albumin/glob ulin mass ratioOrdered By: Aries Chavez on 11-15-2023 Albumin/Globulin [Mass ratio] 0.7 {ratio} [facility] Comment on above: Order Comment: NON F ASTING Performed By: #### C ORT, T4F, TSH3, CMP ####[place] [address] [place]#### ACTH ####[facility] , Serum or plasma anion gap de terminationOrdered By: Aries Chavez on 11-15-2023 Anion gap [Moles/Vol] 10.1 mmol/L Normal 6.0-15.0 [facility] Comment on above: Order Comment: NON F ASTING Performed By: #### C ORT, T4F, TSH3, CMP ####[facility] [place] [address] [place]#### ACTH ####[facility] , Sodium [Moles/volume] in Ser um or PlasmaOrdered By: Aries Chavez on 11-15-2023 Sodium [Moles/Vol] 135 mmol/L Low 136-145 [facility] Comment on above: Order Comment: NON F ASTING Performed By: #### C ORT, T4F, TSH3, CMP ####[place] [address] [address]#### ACTH ####[facility] , Thyrotropin [Units/volume] i n Serum or PlasmaOrdered By: Aries Chavez on 11-15-2023 TSH Qn 0.01 m[IU]/L Low 0.45-5.33 [facility] Comment on above: Order Comment: NON F ASTING Performed By: #### C ORT, T4F, TSH3, CMP ####[place] [address] [place] [address] [place]#### ACTH ####[facility] , Thyroxine (T4) free [Mass/vo lume] in Serum or PlasmaOrdered By: Aries Chavez on 11-15-2023 Free T4 [Mass/Vol] 2.10 ng/dL High 0.61-1.12 [facility] Comment on above: Order Comment: NON F ASTING Performed By: #### C ORT, T4F, TSH3, CMP ####[place] [address] [place] [address] [place]#### ACTH ####[facility] , Urea nitrogen [Mass/volume] in Serum or PlasmaOrdered By: Aries Chavez on 11-15-2023 Urea nitrogen [Mass/Vol] 16 mg/dL Normal 7-25 [facility] Comment on above: Order Comment: NON F ASTING Performed By: #### C ORT, T4F, TSH3, CMP ####[address]#### ACTH ####[facility] , US venous duplex LE BIon US venous duplex LE BI Normal Th e [facility] Cortisolon 10-26-2023 Cortisol 15.2 ug/dL Normal [facility] Comment on above: Result Comment: Refe rence range: AM 6 - 24 ug/dl PM <10 ug/dl [facility] vp communications and method: KuraturEL DXI, POLYCLONAL ANTIBODY CORTISOL ASSAY.PERFORMED BY:[address] [place], [place] [phone] MEDICAL DIRECTORSTEFANO HOLT M.D. Performed By: #### T 4F, TSH3, JER ####[address] Free T4 (Free Thyroxine)on 0 10-26-2023 Free T4 [Mass/Vol] 2.23 ng/dL High 0.61-1.12 [facility] Comment on above: Performed By: #### T 4F, TSH3, JER ####[address] Thyroid Stimulating Hormoneo n 10-26-2023 TSH Qn 0.20 m[IU]/L Low 0.45-5.33 [facility] Comment on above: Performed By: #### T 4F, TSH3, JER ####[address] Basic Metabolic Panelon 10-03 Anion gap [Moles/Vol] 9.5 mmol/L Normal 6.0-15.0 [facility] Comment on above: Performed By: #### B MP, HEPATIC, CBC ####[address] Calcium [Mass/Vol] 8.7 mg/dL Normal 8.6-10.3 [facility] Comment on above: Performed By: #### B MP, HEPATIC, CBC ####[facility] [place] [address] [facility] Chloride [Moles/Vol] 103 mmol/L Normal 98-107 [facility] [facility] Comment on above: Performed By: #### B MP, HEPATIC, CBC ####[address] [address] [facility] CO2 [Moles/Vol] 23.7 mmol/L Normal 21.0-31.0 [facility] Comment on above: Performed By: #### B MP, HEPATIC, CBC ####[address] [place] [address] [facility] Creatinine [Mass/Vol] 0.78 mg/dL Normal 0.60-1.20 [facility] Comment on above: Performed By: #### B MP, HEPATIC, CBC ####[address] [address] [facility] Creatinine Clr Calc Pharmacy 65.55 Normal [facility] Comment on above: Result Comment: PERF ORMED BY:[address] [place], [place] [phone] MEDICAL DIRECTORSTEFANO HOLT M.D. Performed By: #### B MP, HEPATIC, CBC ####[address] [address] [facility] GFR/1.73 sq M.predicted MDRD (S/P/Bld) [Vol rate/Area] mL/min/{1.73_m2} Normal [facility] Comment on above: Performed By: #### B MP, HEPATIC, CBC ####[address] [address] [facility] Glucose [Mass/Vol] 113 mg/dL High 70-100 [facility] Comment on above: Result Comment: Jay Glucose Reference Range is dependent on time and content of last meal. Glucose of more than 200 mg/dL in a nonstressed, ambulatory subject supports the diagnosis of Diabetes Mellitus. ADA recommended reference range Performed By: #### B MP, HEPATIC, CBC ####[address] [address] [place] Potassium [Moles/Vol] 4.2 mmol/L Normal 3.5-5.1 [facility] Comment on above: Performed By: #### B MP, HEPATIC, CBC ####[address] Sodium [Moles/Vol] 132 mmol/L Low 136-145 [facility] Comment on above: Performed By: #### B MP, HEPATIC, CBC ####[address] Urea nitrogen [Mass/Vol] 22 mg/dL Normal 7-25 [facility] Comment on above: Performed By: #### B MP, HEPATIC, CBC ####[address] Clostridium Difficileon 10-03 Clostridium Difficile Negative Normal Negative [facility] Comment on above: Order Comment: > or = to 3 loose/watery stools in the last 24 HRS? N Is patient on promotility agents or tube feeding? Y Result Comment: Test ing performed by RT-PCRPERFORMED BY:[address] [address] [place], [place] [phone] MEDICAL DIRECTORSTEFANO HOLT M.D. Performed By: #### G I PROFILE, STL ####[facility] ,#### CUSTOOL, CDT ####[id number] [facility] Complete Blood Count Auto Di ffon 10-24-2023 Basophils (Bld) [#/Vol] 0.1 10*3/uL Normal 0.0-0.2 [facility] Comment on above: Result Comment: PERF ORMED BY:[address] [place], [place] [phone] MEDICAL DIRECTORSTEFANO HOLT M.D. Performed By: #### B MP, HEPATIC, CBC ####[id number] [facility] Basophils/100 WBC (Bld) 1.0 % Normal . [facility] Comment on above: Performed By: #### B MP, HEPATIC, CBC ####[address] Eosinophils (Bld) [#/Vol] 0.2 10*3/uL Normal 0.0-0.45 [facility] Comment on above: Performed By: #### B MP, HEPATIC, CBC ####[address] Eosinophils/100 WBC (Bld) 1.7 % Normal . [facility] Comment on above: Performed By: #### B MP, HEPATIC, CBC ####[address] Erythrocyte distribution width (RBC) [Ratio] 18.1 % High 11.9-15.3 [facility] Comment on above: Performed By: #### B MP, HEPATIC, CBC ####[address] Hematocrit (Bld) [Volume fraction] 27.5 % Low 34.0-46.4 [facility] Comment on above: Performed By: #### B MP, HEPATIC, CBC ####[address] Hemoglobin (Bld) [Mass/Vol] 9.0 g/dL Low 11.8-15.4 [facility] Comment on above: Performed By: #### B MP, HEPATIC, CBC ####[address] Lymphocytes (Bld) [#/Vol] 1.1 10*3/uL Normal 1.00-4.8 [facility] Comment on above: Performed By: #### B MP, HEPATIC, CBC ####[address] Lymphocytes/100 WBC (Bld) 12.3 % Normal . [facility] Comment on above: Performed By: #### B MP, HEPATIC, CBC ####[address] MCH (RBC) [Entitic mass] 26.6 pg Normal 24.7-34.3 [facility] Comment on above: Performed By: #### B MP, HEPATIC, CBC ####[address] MCV (RBC) [Entitic vol] 81.4 fL Normal 80-100 [facility] Comment on above: Performed By: #### B MP, HEPATIC, CBC ####[address] Mean Corpuscular HGB Conc 32.7 g/dL Normal 32.0-35.0 [facility] Comment on above: Performed By: #### B MP, HEPATIC, CBC ####[address] Monocytes (Bld) [#/Vol] 1.3 10*3/uL High 0.0-0.8 [facility] Comment on above: Performed By: #### B MP, HEPATIC, CBC ####[address] Monocytes/100 WBC (Bld) 14.6 % Normal . [facility] Comment on above: Performed By: #### B MP, HEPATIC, CBC ####[address] Neutrophils (Bld) [#/Vol] 6.4 10*3/uL Normal 1.8-7.7 [facility] Comment on above: Performed By: #### B MP, HEPATIC, CBC ####[address] Neutrophils/100 WBC (Bld) 70.4 % Normal . [facility] Comment on above: Performed By: #### B MP, HEPATIC, CBC ####[address] NRBC% 0.2 /100{WBC} Normal 0-0.5 [facility] Comment on above: Performed By: #### B MP, HEPATIC, CBC ####[address] Platelet mean volume (Bld) [Entitic vol] 7.4 fL Normal 6.3-10.7 [facility] Comment on above: Performed By: #### B MP, HEPATIC, CBC ####[address] Platelets (Bld) [#/Vol] 273 10*3/uL Normal 150-450 [facility] Comment on above: Performed By: #### B MP, HEPATIC, CBC ####[address] RBC (Bld) [#/Vol] 3.38 10*6/uL Low 3.60-5.00 [facility] Comment on above: Performed By: #### B MP, HEPATIC, CBC ####[address] WBC (Bld) [#/Vol] 9.2 10*3/uL Normal 3.8-11.6 [facility] Comment on above: Performed By: #### B MP, HEPATIC, CBC ####[address] Gastrointestinal Profile, PC Pancho 10-24-2023 Adenovirus F 40/41 Not detected Normal Not Detected [facility] Comment on above: Order Comment: SOURC E OF SPECIMEN: stool Performed By: #### G I PROFILE, STL ####[facility] ,#### CUSTOOL, CDT ####[address] Astrovirus Not detected Normal Not Detected [facility] Comment on above: Order Comment: SOURC E OF SPECIMEN: stool Performed By: #### G I PROFILE, STL ####[facility] ,#### CUSTOOL, CDT ####[address] C Difficile Toxin A/B Not detected Normal Not Detected [facility] Comment on above: Order Comment: SOURC E OF SPECIMEN: stool Performed By: #### G I PROFILE, STL ####[facility] ,#### CUSTOOL, CDT ####[place] [id number] [facility] Campylobacter Not detected Normal Not Detected [facility] Comment on above: Order Comment: SOURC E OF SPECIMEN: stool Performed By: #### G I PROFILE, STL ####[facility] ,#### CUSTOOL, CDT ####[id number] [facility] Cryptosporidium Not detected Normal Not Detected [facility] Comment on above: Order Comment: SOURC E OF SPECIMEN: stool Performed By: #### G I PROFILE, STL ####[facility] ,#### CUSTOOL, CDT ####[id number] [facility] Cyclospora cayetanensis Not detected Normal Not Detected [facility] Comment on above: Order Comment: SOURC E OF SPECIMEN: stool Performed By: #### G I PROFILE, STL ####[facility] ,#### CUSTOOL, CDT ####[address] E coli O157 Not applicable Normal Not Detected [facility] Comment on above: Order Comment: SOURC E OF SPECIMEN: stool Performed By: #### G I PROFILE, STL ####[facility] ,#### CUSTOOL, CDT ####[id number] [facility] Entamoeba histolytica Not detected Normal Not Detected [facility] Comment on above: Order Comment: SOURC E OF SPECIMEN: stool Performed By: #### G I PROFILE, STL ####[facility] ,#### CUSTOOL, CDT ####[address] [address] [facility] Enteroaggregative E coli Not detected Normal Not Detected [facility] Comment on above: Order Comment: SOURC E OF SPECIMEN: stool Performed By: #### G I PROFILE, STL ####[facility] ,#### CUSTOOL, CDT ####[address] [address] [facility] Enteropathogenic E coli Not detected Normal Not Detected [facility] Comment on above: Order Comment: SOURC E OF SPECIMEN: stool Performed By: #### G I PROFILE, STL ####[facility] ,#### CUSTOOL, CDT ####[address] [address] [facility] Enterotoxigenic E coli Not detected Normal Not Detected [facility] Comment on above: Order Comment: SOURC E OF SPECIMEN: stool Performed By: #### G I PROFILE, STL ####[facility] ,#### CUSTOOL, CDT ####[address] [address] [facility] Giardia lamblia Not detected Normal Not Detected [facility] Comment on above: Order Comment: SOURC E OF SPECIMEN: stool Performed By: #### G I PROFILE, STL ####[facility] ,#### CUSTOOL, CDT ####[address] [address] [facility] Norovirus GI/GII Detected Critically abnormal Not Detected [facility] Comment on above: Order Comment: SOURC E OF SPECIMEN: stool Performed By: #### G I PROFILE, STL ####[facility] ,#### CUSTOOL, CDT ####[address] [address] [facility] Plesiomonas shigelloides Not detected Normal Not Detected [facility] Comment on above: Order Comment: SOURC E OF SPECIMEN: stool Performed By: #### G I PROFILE, STL ####[facility] ,#### CUSTOOL, CDT ####[address] [address] [place] Rotavirus A Not detected Normal Not Detected [facility] Comment on above: Order Comment: SOURC E OF SPECIMEN: stool Performed By: #### G I PROFILE, STL ####[facility] ,#### CUSTOOL, CDT ####[address] [address] [facility] Salmonella Not detected Normal Not Detected [facility] Comment on above: Order Comment: SOURC E OF SPECIMEN: stool Performed By: #### G I PROFILE, STL ####[facility] ,#### CUSTOOL, CDT ####[address] [address] [facility] Sapovirus Not detected Normal Not Detected [facility] Comment on above: Order Comment: SOURC E OF SPECIMEN: stool Result Comment: Perf ormed at: [facility] [address] [id number] [employer] Engineer: Fatoumata Daley MD, Phone: [phone] BY:[address] [place], [place] [phone] MEDICAL DIRECTORSTEFANO HOLT M.D. Performed By: #### G I PROFILE, STL ####[facility] ,#### CUSTOOL, CDT ####[address] [address] [facility] [id number]-[id number] E coli Not detected Normal Not Detected [facility] Comment on above: Order Comment: SOURC E OF SPECIMEN: stool Performed By: #### G I PROFILE, STL ####[facility] ,#### CUSTOOL, CDT ####[address] [address] [facility] Shigella/Enteroinvasiv e E coli Not detected Normal Not Detected [facility] Comment on above: Order Comment: SOURC E OF SPECIMEN: stool Performed By: #### G I PROFILE, STL ####[facility] ,#### CUSTOOL, CDT ####[id number] [facility] Vibrio Not detected Normal Not Detected [facility] Comment on above: Order Comment: SOURC E OF SPECIMEN: stool Performed By: #### G I PROFILE, STL ####[facility] ,#### CUSTOOL, CDT ####[address] [address] [facility] Vibrio cholerae Not detected Normal Not Detected [facility] Comment on above: Order Comment: SOURC E OF SPECIMEN: stool Performed By: #### G I PROFILE, STL ####[facility] ,#### CUSTOOL, CDT ####[place] [id number] [facility] Yersinia enterocolitica Not detected Normal Not Detected [facility] Comment on above: Order Comment: SOURC E OF SPECIMEN: stool Performed By: #### G I PROFILE, STL ####[facility] ,#### CUSTOOL, CDT ####[id number] [facility] Hepatic Panelon 10-24-2023 Albumin [Mass/Vol] 2.8 g/dL Low 3.5-5.7 [facility] Comment on above: Performed By: #### B MP, HEPATIC, CBC ####[id number] [facility] Albumin/Globulin [Mass ratio] 0.8 {ratio} Normal [facility] Comment on above: Performed By: #### B MP, HEPATIC, CBC ####[id number] [facility] ALP [Catalytic activity/Vol] 85 U/L Normal 34-104 [facility] Comment on above: Performed By: #### B MP, HEPATIC, CBC ####[id number] [facility] ALT [Catalytic activity/Vol] 139 U/L High 7-52 [facility] Comment on above: Performed By: #### B MP, HEPATIC, CBC ####[id number] [facility] AST [Catalytic activity/Vol] 37 U/L Normal 13-39 [facility] Comment on above: Performed By: #### B MP, HEPATIC, CBC ####[id number] [facility] Bilirubin [Mass/Vol] 0.6 mg/dL Normal 0.3-1.0 [facility] Comment on above: Performed By: #### B MP, HEPATIC, CBC ####[id number] [facility] Bilirubin,Indirect 0.4 mg/dL Normal [facility] Comment on above: Performed By: #### B MP, HEPATIC, CBC ####[id number] [facility] Bilirubin.indirect [Mass/Vol] 0.20 mg/dL High 0.03-0.18 [facility] Comment on above: Performed By: #### B MP, HEPATIC, CBC ####[id number] [facility] Globulin (S) [Mass/Vol] 3.7 g/dL Normal [facility] Comment on above: Performed By: #### B MP, HEPATIC, CBC ####[id number] [facility] Protein [Mass/Vol] 6.5 g/dL Normal 6.4-8.9 [facility] Comment on above: Performed By: #### B MP, HEPATIC, CBC ####[address] [id number] [facility] Basic Metabolic Panelon 10-03 Anion gap [Moles/Vol] 10.6 mmol/L Normal 6.0-15.0 [facility] Comment on above: Performed By: #### H EPATIC, BMP, CBC ####[id number] [facility] Calcium [Mass/Vol] 8.8 mg/dL Normal 8.6-10.3 [facility] Comment on above: Performed By: #### H EPATIC, BMP, CBC ####[address] [address] [facility] Chloride [Moles/Vol] 102 mmol/L Normal 98-107 [facility] Comment on above: Performed By: #### H DURAN DAO, CBC ####[address] [address] [facility] CO2 [Moles/Vol] 22.2 mmol/L Normal 21.0-31.0 [facility] Comment on above: Performed By: #### H DURAN DAO, CBC ####[address] [address] [facility] Creatinine [Mass/Vol] 0.92 mg/dL Normal 0.60-1.20 [facility] Comment on above: Performed By: #### H DURAN DAO, CBC ####[address] [address] [facility] Creatinine Clr Calc Pharmacy 57.00 Normal [facility] Comment on above: Result Comment: PERF ORMED BY:[address] [place], [place] [phone] MEDICAL NAHID HOLT M.D. Performed By: #### H DURAN DAO, CBC ####[address] [address] [facility] GFR/1.73 sq M.predicted MDRD (S/P/Bld) [Vol rate/Area] mL/min/{1.73_m2} Normal [facility] Comment on above: Performed By: #### H DURAN DAO, CBC ####[address] [address] [facility] Glucose [Mass/Vol] 96 mg/dL Normal 70-100 [facility] Comment on above: Result Comment: Jay Glucose Reference Range is dependent on time and content of last meal. Glucose of more than 200 mg/dL in a nonstressed, ambulatory subject supports the diagnosis of Diabetes Mellitus. ADA recommended reference range Performed By: #### H DURAN DAO, CBC ####[address] [address] [place] Potassium [Moles/Vol] 4.8 mmol/L Normal 3.5-5.1 [facility] Comment on above: Performed By: #### H DURAN DAO, CBC ####[address] Sodium [Moles/Vol] 130 mmol/L Low 136-145 [facility] Comment on above: Performed By: #### H DURAN DAO, CBC ####[address] Urea nitrogen [Mass/Vol] 28 mg/dL High 7-25 [facility] Comment on above: Performed By: #### H DURAN DAO, CBC ####[address] Complete Blood Count Auto Di ffon 10-23-2023 Basophils (Bld) [#/Vol] 0.1 10*3/uL Normal 0.0-0.2 [facility] Comment on above: Result Comment: PERF ORMED BY:[address] [place], [place] [phone] MEDICAL DIRECTORSTEFANO HOLT M.D. Performed By: #### H DURAN DAO, CBC ####[address] Basophils/100 WBC (Bld) 1.2 % Normal . [facility] Comment on above: Performed By: #### H DURAN DAO, CBC ####[address] Eosinophils (Bld) [#/Vol] 0.1 10*3/uL Normal 0.0-0.45 [facility] Comment on above: Performed By: #### H DURAN DAO, CBC ####[address] Eosinophils/100 WBC (Bld) 0.6 % Normal . [facility] Comment on above: Performed By: #### H DURAN DAO, CBC ####[address] Erythrocyte distribution width (RBC) [Ratio] 17.7 % High 11.9-15.3 [facility] Comment on above: Performed By: #### H EPAGIGI BMP, CBC ####[address] Hematocrit (Bld) [Volume fraction] 29.2 % Low 34.0-46.4 [facility] Comment on above: Performed By: #### H FELIBERTO BMP, CBC ####[address] Hemoglobin (Bld) [Mass/Vol] 9.4 g/dL Low 11.8-15.4 [facility] Comment on above: Performed By: #### H EPAGIGI BMP, CBC ####[address] Lymphocytes (Bld) [#/Vol] 1.2 10*3/uL Normal 1.00-4.8 [facility] Comment on above: Performed By: #### H FELIBERTO BMP, CBC ####[address] Lymphocytes/100 WBC (Bld) 11.1 % Normal . [facility] Comment on above: Performed By: #### H EPAGIGI BMP, CBC ####[address] MCH (RBC) [Entitic mass] 26.4 pg Normal 24.7-34.3 [facility] Comment on above: Performed By: #### H EPAGIGI BMP, CBC ####[address] MCV (RBC) [Entitic vol] 81.6 fL Normal 80-100 [facility] Comment on above: Performed By: #### H EPATIC BMP, CBC ####[address] Mean Corpuscular HGB Conc 32.4 g/dL Normal 32.0-35.0 [facility] Comment on above: Performed By: #### H EPATIC, BMP, CBC ####[address] Monocytes (Bld) [#/Vol] 1.3 10*3/uL High 0.0-0.8 [facility] Comment on above: Performed By: #### H EPATIC, BMP, CBC ####[address] Monocytes/100 WBC (Bld) 12.4 % Normal . [facility] Comment on above: Performed By: #### H EPATIC, BMP, CBC ####[address] Neutrophils (Bld) [#/Vol] 7.8 10*3/uL High 1.8-7.7 [facility] Comment on above: Performed By: #### H EPATIC, BMP, CBC ####[address] Neutrophils/100 WBC (Bld) 74.7 % Normal . [facility] Comment on above: Performed By: #### H EPATIC, BMP, CBC ####[address] NRBC% 0.4 /100{WBC} Normal 0-0.5 [facility] Comment on above: Performed By: #### H EPATIC, BMP, CBC ####[address] Platelet mean volume (Bld) [Entitic vol] 7.5 fL Normal 6.3-10.7 [facility] Comment on above: Performed By: #### H EPATIC, BMP, CBC ####[address] Platelets (Bld) [#/Vol] 293 10*3/uL Normal 150-450 [facility] Comment on above: Performed By: #### H EPATIC, BMP, CBC ####[address] RBC (Bld) [#/Vol] 3.57 10*6/uL Low 3.60-5.00 [facility] Comment on above: Performed By: #### H DURAN DAO, CBC ####[address] WBC (Bld) [#/Vol] 10.5 10*3/uL Normal 3.8-11.6 [facility] Comment on above: Performed By: #### H DURAN DAO, CBC ####[address] Hepatic Panelon 10-23-2023 Albumin [Mass/Vol] 2.9 g/dL Low 3.5-5.7 [facility] Comment on above: Performed By: #### H DURAN DAO, CBC ####[address] Albumin/Globulin [Mass ratio] 0.7 {ratio} Normal [facility] Comment on above: Performed By: #### H DURAN DAO, CBC ####[address] ALP [Catalytic activity/Vol] 102 U/L Normal 34-104 [facility] Comment on above: Performed By: #### H DURAN DAO, CBC ####[address] ALT [Catalytic activity/Vol] 206 U/L High 7-52 [facility] Comment on above: Performed By: #### H DURAN DAO, CBC ####[address] AST [Catalytic activity/Vol] 95 U/L High 13-39 [facility] Comment on above: Performed By: #### H DURAN DAO, CBC ####[address] Bilirubin [Mass/Vol] 0.5 mg/dL Normal 0.3-1.0 [facility] Comment on above: Performed By: #### H DURAN DAO, CBC ####[address] Bilirubin,Indirect 0.3 mg/dL Normal [facility] Comment on above: Performed By: #### H DURAN DAO, CBC ####[address] Bilirubin.indirect [Mass/Vol] 0.20 mg/dL High 0.03-0.18 [facility] Comment on above: Performed By: #### H FELIBERTO BMP, CBC ####[address] Globulin (S) [Mass/Vol] 4.0 g/dL Normal [facility] Comment on above: Performed By: #### H DURAN DAO, CBC ####[address] Protein [Mass/Vol] 6.9 g/dL Normal 6.4-8.9 [facility] Comment on above: Performed By: #### H DURAN DAO, CBC ####[address] Basic Metabolic Panelon 10-03 Anion gap [Moles/Vol] 11.6 mmol/L Normal 6.0-15.0 [facility] Comment on above: Performed By: #### B MP, HEPATIC, CBC ####[address] Calcium [Mass/Vol] 8.8 mg/dL Normal 8.6-10.3 [facility] Comment on above: Performed By: #### B MP, HEPATIC, CBC ####[address] Chloride [Moles/Vol] 101 mmol/L Normal 98-107 [facility] Comment on above: Performed By: #### B MP, HEPATIC, CBC ####[address] CO2 [Moles/Vol] 19.3 mmol/L Low 21.0-31.0 [facility] Comment on above: Performed By: #### B MP, HEPATIC, CBC ####[id number] [place] [address] [facility] Creatinine [Mass/Vol] 1.03 mg/dL Normal 0.60-1.20 [facility] Comment on above: Performed By: #### B MP, HEPATIC, CBC ####[address] [address] [facility] Creatinine Clr Calc Pharmacy 50.52 Normal [facility] Comment on above: Result Comment: PERF ORMED BY:[address] [place], [place] [phone] MEDICAL DIRECTORSTEFANO HOLT M.D. Performed By: #### B MP, HEPATIC, CBC ####[place] [id number] [facility] GFR/1.73 sq M.predicted MDRD (S/P/Bld) [Vol rate/Area] 58.859 mL/min/{1.73_m2} Normal [facility] Comment on above: Performed By: #### B MP, HEPATIC, CBC ####[address] [address] [facility] Glucose [Mass/Vol] 111 mg/dL High 70-100 [facility] Comment on above: Result Comment: Jay Glucose Reference Range is dependent on time and content of last meal. Glucose of more than 200 mg/dL in a nonstressed, ambulatory subject supports the diagnosis of Diabetes Mellitus. ADA recommended reference range Performed By: #### B MP, HEPATIC, CBC ####[address] [address] [facility] Potassium [Moles/Vol] 4.9 mmol/L Normal 3.5-5.1 [facility] Comment on above: Performed By: #### B MP, HEPATIC, CBC ####[place] [id number] [facility] Sodium [Moles/Vol] 127 mmol/L Low 136-145 [facility] Comment on above: Performed By: #### B MP, HEPATIC, CBC ####[place] [id number] [facility] Urea nitrogen [Mass/Vol] 30 mg/dL High 7-25 [facility] Comment on above: Performed By: #### B MP, HEPATIC, CBC ####[address] Complete Blood Count Auto Di ffon 10-22-2023 Basophils (Bld) [#/Vol] 0.1 10*3/uL Normal 0.0-0.2 [facility] Comment on above: Result Comment: PERF ORMED BY:[address] [place], [place] [phone] MEDICAL DIRECTORSTEFANO HOLT M.D. Performed By: #### B MP, HEPATIC, CBC ####[address] Basophils/100 WBC (Bld) 1.4 % Normal . [facility] Comment on above: Performed By: #### B MP, HEPATIC, CBC ####[address] Eosinophils (Bld) [#/Vol] 0.1 10*3/uL Normal 0.0-0.45 [facility] Comment on above: Performed By: #### B MP, HEPATIC, CBC ####[address] Eosinophils/100 WBC (Bld) 0.6 % Normal . [facility] Comment on above: Performed By: #### B MP, HEPATIC, CBC ####[address] Erythrocyte distribution width (RBC) [Ratio] 18.1 % High 11.9-15.3 [facility] Comment on above: Performed By: #### B MP, HEPATIC, CBC ####[address] Hematocrit (Bld) [Volume fraction] 28.0 % Low 34.0-46.4 [facility] Comment on above: Performed By: #### B MP, HEPATIC, CBC ####[address] [place] [address] [place] Hemoglobin (Bld) [Mass/Vol] 9.2 g/dL Low 11.8-15.4 [facility] Comment on above: Performed By: #### B MP, HEPATIC, CBC ####[address] Lymphocytes (Bld) [#/Vol] 1.1 10*3/uL Normal 1.00-4.8 [facility] Comment on above: Performed By: #### B MP, HEPATIC, CBC ####[address] Lymphocytes/100 WBC (Bld) 11.6 % Normal . [facility] Comment on above: Performed By: #### B MP, HEPATIC, CBC ####[address] MCH (RBC) [Entitic mass] 26.5 pg Normal 24.7-34.3 [facility] Comment on above: Performed By: #### B MP, HEPATIC, CBC ####[address] MCV (RBC) [Entitic vol] 80.4 fL Normal 80-100 [facility] Comment on above: Performed By: #### B MP, HEPATIC, CBC ####[address] Mean Corpuscular HGB Conc 32.9 g/dL Normal 32.0-35.0 [facility] Comment on above: Performed By: #### B MP, HEPATIC, CBC ####[address] Monocytes (Bld) [#/Vol] 1.0 10*3/uL High 0.0-0.8 [facility] Comment on above: Performed By: #### B MP, HEPATIC, CBC ####[address] Monocytes/100 WBC (Bld) 10.8 % Normal . [facility] Comment on above: Performed By: #### B MP, HEPATIC, CBC ####[address] Neutrophils (Bld) [#/Vol] 7.3 10*3/uL Normal 1.8-7.7 [facility] Comment on above: Performed By: #### B MP, HEPATIC, CBC ####[place] [id number] [facility] Neutrophils/100 WBC (Bld) 75.6 % Normal . [facility] Comment on above: Performed By: #### B MP, HEPATIC, CBC ####[address] NRBC% 0.9 /100{WBC} High 0-0.5 [facility] Comment on above: Performed By: #### B MP, HEPATIC, CBC ####[address] Platelet mean volume (Bld) [Entitic vol] 7.6 fL Normal 6.3-10.7 [facility] Comment on above: Performed By: #### B MP, HEPATIC, CBC ####[place] [id number] [facility] Platelets (Bld) [#/Vol] 290 10*3/uL Normal 150-450 [facility] Comment on above: Performed By: #### B MP, HEPATIC, CBC ####[address] RBC (Bld) [#/Vol] 3.48 10*6/uL Low 3.60-5.00 [facility] Comment on above: Performed By: #### B MP, HEPATIC, CBC ####[place] [id number] [facility] WBC (Bld) [#/Vol] 9.6 10*3/uL Normal 3.8-11.6 [facility] Comment on above: Performed By: #### B MP, HEPATIC, CBC ####[place] [id number] [facility] Hepatic Panelon 10-22-2023 Albumin [Mass/Vol] 2.9 g/dL Low 3.5-5.7 [facility] Comment on above: Performed By: #### B MP, HEPATIC, CBC ####[address] Albumin/Globulin [Mass ratio] 0.7 {ratio} Normal [facility] Comment on above: Performed By: #### B MP, HEPATIC, CBC ####[address] ALP [Catalytic activity/Vol] 108 U/L High 34-104 [facility] Comment on above: Performed By: #### B MP, HEPATIC, CBC ####[address] ALT [Catalytic activity/Vol] 244 U/L High 7-52 [facility] Comment on above: Performed By: #### B MP, HEPATIC, CBC ####[address] AST [Catalytic activity/Vol] 167 U/L High 13-39 [facility] Comment on above: Performed By: #### B MP, HEPATIC, CBC ####[address] Bilirubin [Mass/Vol] 0.5 mg/dL Normal 0.3-1.0 [facility] Comment on above: Performed By: #### B MP, HEPATIC, CBC ####[address] Bilirubin,Indirect 0.2 mg/dL Normal [facility] Comment on above: Performed By: #### B MP, HEPATIC, CBC ####[address] Bilirubin.indirect [Mass/Vol] 0.30 mg/dL High 0.03-0.18 [facility] Comment on above: Performed By: #### B MP, HEPATIC, CBC ####[address] Globulin (S) [Mass/Vol] 4.1 g/dL Normal [facility] Comment on above: Performed By: #### B MP, HEPATIC, CBC ####[place] [id number] [facility] Protein [Mass/Vol] 7.0 g/dL Normal 6.4-8.9 [facility] Comment on above: Performed By: #### B MP, HEPATIC, CBC ####[place] [id number] [facility] Lactic Acidon 10-22-2023 Lactate [Moles/Vol] 1.9 mmol/L Normal 0.5-2.2 [facility] Comment on above: Result Comment: PERF ORMED BY:[address] [place], [place] [phone] MEDICAL DIRECTORSTEFANO HOLT M.D. Performed By: #### L ACTIC ####[place] [id number] [facility] Basic Metabolic Panelon 10-03 Anion gap [Moles/Vol] 12.8 mmol/L Normal 6.0-15.0 [facility] Comment on above: Performed By: #### H EPATIC, MG, BMP ####[place] [id number] [facility] Calcium [Mass/Vol] 8.4 mg/dL Low 8.6-10.3 [facility] Comment on above: Performed By: #### H EPATIC, MG, BMP ####[place] [id number] [facility] Chloride [Moles/Vol] 101 mmol/L Normal 98-107 [facility] Comment on above: Performed By: #### H EPATIC, MG, BMP ####[place] [id number] [facility] CO2 [Moles/Vol] 18.0 mmol/L Low 21.0-31.0 [facility] Comment on above: Performed By: #### H EPATIC, MG, BMP ####[place] [id number] [facility] Creatinine [Mass/Vol] 1.18 mg/dL Normal 0.60-1.20 [facility] Comment on above: Performed By: #### H EPATIC, MG, BMP ####[address] Creatinine Clr Calc Pharmacy 40.49 Normal [facility] Comment on above: Performed By: #### H EPATIC, MG, BMP ####[address] GFR/1.73 sq M.predicted MDRD (S/P/Bld) [Vol rate/Area] 49.998 mL/min/{1.73_m2} Normal [facility] Comment on above: Performed By: #### H EPATIC, MG, BMP ####[address] Glucose [Mass/Vol] 104 mg/dL High 70-100 [facility] Comment on above: Result Comment: Jay Glucose Reference Range is dependent on time and content of last meal. Glucose of more than 200 mg/dL in a nonstressed, ambulatory subject supports the diagnosis of Diabetes Mellitus. ADA recommended reference range Performed By: #### H EPATIC, MG, BMP ####[address] Potassium [Moles/Vol] 4.8 mmol/L Normal 3.5-5.1 [facility] Comment on above: Performed By: #### H EPATIC, MG, BMP ####[address] Sodium [Moles/Vol] 127 mmol/L Low 136-145 [facility] Comment on above: Performed By: #### H EPATIC, MG, BMP ####[address] Urea nitrogen [Mass/Vol] 34 mg/dL High 7-25 [facility] Comment on above: Performed By: #### H EPATIC, MG, BMP ####[address] Hepatic Panelon 10-21-2023 Albumin [Mass/Vol] 2.9 g/dL Low 3.5-5.7 [facility] Comment on above: Performed By: #### H EPATIC, MG, BMP ####[address] Albumin/Globulin [Mass ratio] 0.7 {ratio} Normal [facility] Comment on above: Performed By: #### H EPATIC, MG, BMP ####[address] ALP [Catalytic activity/Vol] 105 U/L High 34-104 [facility] Comment on above: Performed By: #### H EPATIC, MG, BMP ####[address] ALT [Catalytic activity/Vol] 196 U/L High 7-52 [facility] Comment on above: Performed By: #### H EPATIC, MG, BMP ####[address] AST [Catalytic activity/Vol] 147 U/L High 13-39 [facility] Comment on above: Performed By: #### H EPATIC, MG, BMP ####[address] Bilirubin [Mass/Vol] 0.4 mg/dL Normal 0.3-1.0 [facility] Comment on above: Performed By: #### H EPATIC, MG, BMP ####[address] Bilirubin,Indirect 0.3 mg/dL Normal [facility] Comment on above: Performed By: #### H EPATIC, MG, BMP ####[address] Bilirubin.indirect [Mass/Vol] 0.10 mg/dL Normal 0.03-0.18 [facility] Comment on above: Performed By: #### H EPATIC, MG, BMP ####[address] Globulin (S) [Mass/Vol] 3.9 g/dL Normal [facility] Comment on above: Performed By: #### H EPATIC, MG, BMP ####[address] Protein [Mass/Vol] 6.8 g/dL Normal 6.4-8.9 [facility] Comment on above: Performed By: #### H EPATIC, MG, BMP ####[address] Magnesiumon 10-21-2023 Magnesium [Mass/Vol] 1.7 mg/dL Low 1.9-2.7 [facility] Comment on above: Result Comment: PERF ORMED BY:[address] [place], [place] [phone] MEDICAL DIRECTORSTEFANO HOLT M.D. Performed By: #### H EPATIC, MG, BMP ####[address] Scan and CBCon 10-21-2023 Anisocytosis Ql (Bld) Slight Normal [facility] Comment on above: Performed By: #### S CAN CBC ####[address] Basophils (Bld) [#/Vol] 0.1 10*3/uL Normal 0.0-0.2 [facility] Comment on above: Performed By: #### S CAN CBC ####[address] Basophils/100 WBC (Bld) 0.5 % Normal . [facility] Comment on above: Performed By: #### S CAN CBC ####[address] Eosinophils (Bld) [#/Vol] 0.1 10*3/uL Normal 0.0-0.45 [facility] Comment on above: Performed By: #### S CAN CBC ####[address] Eosinophils/100 WBC (Bld) 0.9 % Normal . [facility] Comment on above: Performed By: #### S CAN CBC ####[address] Erythrocyte distribution width (RBC) [Ratio] 16.9 % High 11.9-15.3 [facility] Comment on above: Performed By: #### S CAN CBC ####[address] Hematocrit (Bld) [Volume fraction] 25.9 % Low 34.0-46.4 [facility] Comment on above: Performed By: #### S CAN CBC ####[address] Hemoglobin (Bld) [Mass/Vol] 8.5 g/dL Low 11.8-15.4 [facility] Comment on above: Performed By: #### S CAN CBC ####[address] Large Platelets Slight Normal [facility] Comment on above: Result Comment: PERF ORMED BY:[address] [place], [place] [phone] MEDICAL DIRECTORSTEFANO HOLT M.D. Performed By: #### S CAN CBC ####[address] Lymphocytes (Bld) [#/Vol] 1.7 10*3/uL Normal 1.00-4.8 [facility] Comment on above: Performed By: #### S CAN CBC ####[address] Lymphocytes/100 WBC (Bld) 17.1 % Normal . [facility] Comment on above: Performed By: #### S CAN CBC ####[address] MCH (RBC) [Entitic mass] 26.1 pg Normal 24.7-34.3 [facility] Comment on above: Performed By: #### S CAN CBC ####[address] MCV (RBC) [Entitic vol] 79.6 fL Low 80-100 [facility] Comment on above: Performed By: #### S CAN CBC ####[address] Mean Corpuscular HGB Conc 32.8 g/dL Normal 32.0-35.0 [facility] Comment on above: Performed By: #### S CAN CBC ####[address] Monocytes (Bld) [#/Vol] 1.0 10*3/uL High 0.0-0.8 [facility] Comment on above: Performed By: #### S CAN CBC ####[address] Monocytes/100 WBC (Bld) 10.0 % Normal . [facility] Comment on above: Performed By: #### S CAN CBC ####[address] Neutrophils (Bld) [#/Vol] 7.3 10*3/uL Normal 1.8-7.7 [facility] Comment on above: Performed By: #### S CAN CBC ####[address] Neutrophils/100 WBC (Bld) 71.5 % Normal . [facility] Comment on above: Performed By: #### S CAN CBC ####[address] NRBC% 0.6 /100{WBC} High 0-0.5 [facility] Comment on above: Performed By: #### S CAN CBC ####[address] Platelet Estimate Normal Normal Normal [facility] Comment on above: Performed By: #### S CAN CBC ####[address] Platelet mean volume (Bld) [Entitic vol] 7.7 fL Normal 6.3-10.7 [facility] Comment on above: Performed By: #### S CAN CBC ####[address] Platelets (Bld) [#/Vol] 268 10*3/uL Normal 150-450 [facility] Comment on above: Performed By: #### S CAN CBC ####[address] RBC (Bld) [#/Vol] 3.26 10*6/uL Low 3.60-5.00 [facility] Comment on above: Performed By: #### S CAN CBC ####[address] WBC (Bld) [#/Vol] 10.2 10*3/uL Normal 3.8-11.6 [facility] Comment on above: Performed By: #### S CAN CBC ####[address] Basic Metabolic Panelon 10-02 Anion gap [Moles/Vol] 14.1 mmol/L Normal 6.0-15.0 [facility] Comment on above: Performed By: #### S CAN CBC, CK, HS TROP, CKMB, BMP, HEPATIC ####[address] Calcium [Mass/Vol] 8.6 mg/dL Normal 8.6-10.3 [facility] Comment on above: Performed By: #### S CAN CBC, CK, HS TROP, CKMB, BMP, HEPATIC ####[address] Chloride [Moles/Vol] 99 mmol/L Normal 98-107 [facility] Comment on above: Performed By: #### S CAN CBC, CK, HS TROP, CKMB, BMP, HEPATIC ####[address] CO2 [Moles/Vol] 18.1 mmol/L Low 21.0-31.0 [facility] Comment on above: Performed By: #### S CAN CBC, CK, HS TROP, CKMB, BMP, HEPATIC ####[facility] [place] [id number] [facility] Creatinine [Mass/Vol] 1.33 mg/dL High 0.60-1.20 [facility] Comment on above: Performed By: #### S CAN CBC, CK, HS TROP, CKMB, BMP, HEPATIC ####[place] [id number] [place] [id number] [facility] Creatinine Clr Calc Pharmacy 35.92 Normal [facility] Comment on above: Result Comment: PERF ORMED BY:[address] [place], [place] [phone] MEDICAL DIRECTORSTEFANO HOLT M.D. Performed By: #### S CAN CBC, CK, HS TROP, CKMB, BMP, HEPATIC ####[address] GFR/1.73 sq M.predicted MDRD (S/P/Bld) [Vol rate/Area] 43.310 mL/min/{1.73_m2} Normal [facility] Comment on above: Performed By: #### S CAN CBC, CK, HS TROP, CKMB, BMP, HEPATIC ####[address] Glucose [Mass/Vol] 111 mg/dL High 70-100 [facility] Comment on above: Result Comment: Jay Glucose Reference Range is dependent on time and content of last meal. Glucose of more than 200 mg/dL in a nonstressed, ambulatory subject supports the diagnosis of Diabetes Mellitus. ADA recommended reference range Performed By: #### S CAN CBC, CK, HS TROP, CKMB, BMP, HEPATIC ####[place] [id number] [facility] Potassium [Moles/Vol] 5.2 mmol/L High 3.5-5.1 [facility] Comment on above: Performed By: #### S CAN CBC, CK, HS TROP, CKMB, BMP, HEPATIC ####[address] Sodium [Moles/Vol] 126 mmol/L Low 136-145 [facility] Comment on above: Performed By: #### S CAN CBC, CK, HS TROP, CKMB, BMP, HEPATIC ####[address] Urea nitrogen [Mass/Vol] 31 mg/dL High 7-25 [facility] Comment on above: Performed By: #### S CAN CBC, CK, HS TROP, CKMB, BMP, HEPATIC ####[address] Creatine Kinaseon 10-20-2023 CK [Catalytic activity/Vol] 28 U/L Low 30-223 [facility] Comment on above: Performed By: #### S CAN CBC, CK, HS TROP, CKMB, BMP, HEPATIC ####[address] Creatinine Kinase MBon 10-20 CK.MB [Mass/Vol] 5.4 ng/mL Normal 0.6-6.3 [facility] Comment on above: Performed By: #### S CAN CBC, CK, HS TROP, CKMB, BMP, HEPATIC ####[address] CKMB Relative Index 19.2 % High 0.00-2.50 [facility] Comment on above: Performed By: #### S CAN CBC, CK, HS TROP, CKMB, BMP, HEPATIC ####[address] Creatinine, Urine (Random)on 10-20-2023 Creatinine, Urine (Random) 150.0 mg/dL High 11.0-20.0 [facility] Comment on above: Performed By: #### U CREA, URTP, UK, UEOS, ELISEO ####[address] ECG 12 lead ECGon 10-20-2023 ECG 12 lead ECG Normal [facility] ECH echo transthoracicon ECH echo transthoracic Normal [facility] Eosinophil,Urineon 4 Eosinophil,Urine 0 % Normal 0-1 [facility] Comment on above: Result Comment: PERF ORMED BY:[address] [place], [place] [phone] MEDICAL DIRECTORSTEFANO HOLT M.D. Performed By: #### U CREA, URTP, UK, UEOS, ELISEO ####[address] Hepatic Panelon 10-20-2023 Albumin [Mass/Vol] 3.0 g/dL Low 3.5-5.7 [facility] Comment on above: Performed By: #### S CAN CBC, CK, HS TROP, CKMB, BMP, HEPATIC ####[address] Albumin/Globulin [Mass ratio] 0.7 {ratio} Normal [facility] Comment on above: Performed By: #### S CAN CBC, CK, HS TROP, CKMB, BMP, HEPATIC ####[address] ALP [Catalytic activity/Vol] 107 U/L High 34-104 [facility] Comment on above: Performed By: #### S CAN CBC, CK, HS TROP, CKMB, BMP, HEPATIC ####[address] ALT [Catalytic activity/Vol] 163 U/L High 7-52 [facility] Comment on above: Performed By: #### S CAN CBC, CK, HS TROP, CKMB, BMP, HEPATIC ####[address] AST [Catalytic activity/Vol] 176 U/L High 13-39 [facility] Comment on above: Performed By: #### S CAN CBC, CK, HS TROP, CKMB, BMP, HEPATIC ####[address] Bilirubin [Mass/Vol] 0.4 mg/dL Normal 0.3-1.0 [facility] Comment on above: Performed By: #### S CAN CBC, CK, HS TROP, CKMB, BMP, HEPATIC ####[address] Bilirubin,Indirect 0.3 mg/dL Normal [facility] Comment on above: Performed By: #### S CAN CBC, CK, HS TROP, CKMB, BMP, HEPATIC ####[address] Bilirubin.indirect [Mass/Vol] 0.10 mg/dL Normal 0.03-0.18 [facility] Comment on above: Performed By: #### S CAN CBC, CK, HS TROP, CKMB, BMP, HEPATIC ####[address] Globulin (S) [Mass/Vol] 4.4 g/dL Normal [facility] Comment on above: Performed By: #### S CAN CBC, CK, HS TROP, CKMB, BMP, HEPATIC ####[address] Protein [Mass/Vol] 7.4 g/dL Normal 6.4-8.9 [facility] Comment on above: Performed By: #### S CAN CBC, CK, HS TROP, CKMB, BMP, HEPATIC ####[address] Potassium, Urine (Random)on 10-20-2023 Potassium, Urine (Random) 52.6 mmol/L Normal [facility] Comment on above: Result Comment: No r eference range establishedPERFORMED BY:[address] [place], [place] [phone] MEDICAL DIRECTORSTEFANO HOLT M.D. Performed By: #### U CREA, URTP, UK, UEOS, ELISEO ####[address] Scan and CBCon 10-20-2023 Anisocytosis Ql (Bld) Slight Normal [facility] Comment on above: Performed By: #### S CAN CBC, CK, HS TROP, CKMB, BMP, HEPATIC ####[address] Basophils (Bld) [#/Vol] 0.1 10*3/uL Normal 0.0-0.2 [facility] Comment on above: Performed By: #### S CAN CBC, CK, HS TROP, CKMB, BMP, HEPATIC ####[address] Basophils/100 WBC (Bld) 0.6 % Normal . [facility] Comment on above: Performed By: #### S CAN CBC, CK, HS TROP, CKMB, BMP, HEPATIC ####[address] Crenated RBC Slight Normal [facility] Comment on above: Performed By: #### S CAN CBC, CK, HS TROP, CKMB, BMP, HEPATIC ####[address] Eosinophils (Bld) [#/Vol] 0.0 10*3/uL Normal 0.0-0.45 [facility] Comment on above: Performed By: #### S CAN CBC, CK, HS TROP, CKMB, BMP, HEPATIC ####[address] Eosinophils/100 WBC (Bld) 0.1 % Normal . [facility] Comment on above: Performed By: #### S CAN CBC, CK, HS TROP, CKMB, BMP, HEPATIC ####[address] Erythrocyte distribution width (RBC) [Ratio] 17.1 % High 11.9-15.3 [facility] Comment on above: Performed By: #### S CAN CBC, CK, HS TROP, CKMB, BMP, HEPATIC ####[address] Hematocrit (Bld) [Volume fraction] 27.4 % Low 34.0-46.4 [facility] Comment on above: Performed By: #### S CAN CBC, CK, HS TROP, CKMB, BMP, HEPATIC ####[address] Hemoglobin (Bld) [Mass/Vol] 9.0 g/dL Low 11.8-15.4 [facility] Comment on above: Performed By: #### S CAN CBC, CK, HS TROP, CKMB, BMP, HEPATIC ####[address] Lymphocytes (Bld) [#/Vol] 1.3 10*3/uL Normal 1.00-4.8 [facility] Comment on above: Performed By: #### S CAN CBC, CK, HS TROP, CKMB, BMP, HEPATIC ####[address] Lymphocytes/100 WBC (Bld) 11.7 % Normal . [facility] Comment on above: Performed By: #### S CAN CBC, CK, HS TROP, CKMB, BMP, HEPATIC ####[address] MCH (RBC) [Entitic mass] 26.1 pg Normal 24.7-34.3 [facility] Comment on above: Performed By: #### S CAN CBC, CK, HS TROP, CKMB, BMP, HEPATIC ####[address] MCV (RBC) [Entitic vol] 79.8 fL Low 80-100 [facility] Comment on above: Performed By: #### S CAN CBC, CK, HS TROP, CKMB, BMP, HEPATIC ####[address] Mean Corpuscular HGB Conc 32.7 g/dL Normal 32.0-35.0 [facility] Comment on above: Performed By: #### S CAN CBC, CK, HS TROP, CKMB, BMP, HEPATIC ####[address] Microcytosis Slight Normal [facility] Comment on above: Performed By: #### S CAN CBC, CK, HS TROP, CKMB, BMP, HEPATIC ####[address] Monocytes (Bld) [#/Vol] 1.1 10*3/uL High 0.0-0.8 [facility] Comment on above: Performed By: #### S CAN CBC, CK, HS TROP, CKMB, BMP, HEPATIC ####[address] Monocytes/100 WBC (Bld) 9.8 % Normal . [facility] Comment on above: Performed By: #### S CAN CBC, CK, HS TROP, CKMB, BMP, HEPATIC ####[address] Neutrophils (Bld) [#/Vol] 8.7 10*3/uL High 1.8-7.7 [facility] Comment on above: Performed By: #### S CAN CBC, CK, HS TROP, CKMB, BMP, HEPATIC ####[address] Neutrophils/100 WBC (Bld) 77.8 % Normal . [facility] Comment on above: Performed By: #### S CAN CBC, CK, HS TROP, CKMB, BMP, HEPATIC ####[address] NRBC% 0.1 /100{WBC} Normal 0-0.5 [facility] Comment on above: Performed By: #### S CAN CBC, CK, HS TROP, CKMB, BMP, HEPATIC ####[address] Platelet Estimate Normal Normal Normal [facility] Comment on above: Performed By: #### S CAN CBC, CK, HS TROP, CKMB, BMP, HEPATIC ####[address] Platelet mean volume (Bld) [Entitic vol] 7.9 fL Normal 6.3-10.7 [facility] Comment on above: Performed By: #### S CAN CBC, CK, HS TROP, CKMB, BMP, HEPATIC ####[address] [place] [address] [place] Platelet Morphology Normal Normal Normal [facility] Comment on above: Result Comment: PERF ORMED BY:[address] [place], [place] [phone] MEDICAL DIRECTORSTEFANO HOLT M.D. Performed By: #### S CAN CBC, CK, HS TROP, CKMB, BMP, HEPATIC ####[address] Platelets (Bld) [#/Vol] 303 10*3/uL Normal 150-450 [facility] Comment on above: Performed By: #### S CAN CBC, CK, HS TROP, CKMB, BMP, HEPATIC ####[address] Poikilocytosis Slight Normal [facility] Comment on above: Performed By: #### S CAN CBC, CK, HS TROP, CKMB, BMP, HEPATIC ####[address] Polychromasia Slight Normal [facility] Comment on above: Performed By: #### S CAN CBC, CK, HS TROP, CKMB, BMP, HEPATIC ####[address] RBC (Bld) [#/Vol] 3.44 10*6/uL Low 3.60-5.00 [facility] Comment on above: Performed By: #### S CAN CBC, CK, HS TROP, CKMB, BMP, HEPATIC ####[address] WBC (Bld) [#/Vol] 11.1 10*3/uL Normal 3.8-11.6 [facility] Comment on above: Performed By: #### S CAN CBC, CK, HS TROP, CKMB, BMP, HEPATIC ####[address] Sodium, Urine (Random)on Sodium (U) [Moles/Vol] 15 mmol/L Normal [facility] Comment on above: Result Comment: No r eference range established Performed By: #### U CREA, URTP, UK, UEOS, ELISEO ####[address] [address] [facility] Total Protein, Urineon 10-20 Protein (U) [Mass/Vol] 112 mg/dL High 0-9 Th [facility] Comment on above: Performed By: #### U CREA, URTP, UK, UEOS, ELISEO ####[place] [id number] [facility] Troponin I High Sensitivityo n 10-20-2023 Troponin I High Sensitivity 161.2 pg/mL Off scale high 0.0-15.0 [facility] Comment on above: Result Comment: Crit ical Result : Called to and read back by: BASHIR PINO at: 10/20/2023 05:11:09 by:[id number] BY:[address] [address] [address] [place], [place] [phone] MEDICAL DIRECTORSTEFANO HOLT M.D. Performed By: #### S CAN CBC, CK, HS TROP, CKMB, BMP, HEPATIC ####[place] [id number] [facility] 36on 10-19-2023 36 Can we please have h er increase her metoprolol to a full tablet of 25mg daily and see if this helps? Thanks Normal [facility] A1C with Estimated Average G radhan 10-19-2023 Glucose [Mass/Vol] 114 mg/dL Normal [facility] Comment on above: Result Comment: PERF ORMED BY:[address] [place], [place] [phone] MEDICAL DIRECTORSTEFANO HOLT M.D. Performed By: #### C UBLD, A1C WTH eA ####[address] [address] [facility] HbA1c (Bld) [Mass fraction] 5.6 % Normal 4.3-5.6 [facility] Comment on above: Result Comment: Incr eased risk for diabetes: 5.7 - 6.4 diabetes: >6.4 glycemic control for adults with diabetes: <7.0 Performed By: #### C UBLD, A1C WTH eA ####[place] [id number] [facility] ABO/Rh Retypeon 10-19-2023 ABO/RH Recheck Result Positive Normal [facility] Comment on above: Result Comment: PERF ORMED BY:[address] [place], [place] [phone] MEDICAL DIRECTORSTEFANO HOLT M.D. Amylaseon 10-19-2023 Amylase [Catalytic activity/Vol] 20 U/L Low 29-103 [facility] Comment on above: Performed By: #### U TESS, LIPASE, SCAN CBC, PTT, LDH, CRP, HEPATIC, MARISEL, PT, BMP, PHOS, ESR, MG ####[place] [id number] [facility] Basic Metabolic Panelon 10-02 Anion gap [Moles/Vol] 16.3 mmol/L High 6.0-15.0 [facility] Comment on above: Performed By: #### U TESS, LIPASE, SCAN CBC, PTT, LDH, CRP, HEPATIC, MARISEL, PT, BMP, PHOS, ESR, MG ####[address] Calcium [Mass/Vol] 9.0 mg/dL Normal 8.6-10.3 [facility] Comment on above: Performed By: #### U TESS, LIPASE, SCAN CBC, PTT, LDH, CRP, HEPATIC, MARISEL, PT, BMP, PHOS, ESR, MG ####[address] Chloride [Moles/Vol] 96 mmol/L Low 98-107 [facility] Comment on above: Performed By: #### U TESS, LIPASE, SCAN CBC, PTT, LDH, CRP, HEPATIC, MARISEL, PT, BMP, PHOS, ESR, MG ####[address] CO2 [Moles/Vol] 19.2 mmol/L Low 21.0-31.0 [facility] Comment on above: Performed By: #### U TESS, LIPASE, SCAN CBC, PTT, LDH, CRP, HEPATIC, MARISEL, PT, BMP, PHOS, ESR, MG ####[address] Creatinine [Mass/Vol] 1.31 mg/dL High 0.60-1.20 [facility] Comment on above: Performed By: #### U TESS, LIPASE, SCAN CBC, PTT, LDH, CRP, HEPATIC, MARISEL, PT, BMP, PHOS, ESR, MG ####[address] Creatinine Clr Calc Pharmacy 36.47 Normal [facility] Comment on above: Performed By: #### U TESS, LIPASE, SCAN CBC, PTT, LDH, CRP, HEPATIC, MARISEL, PT, BMP, PHOS, ESR, MG ####[address] GFR/1.73 sq M.predicted MDRD (S/P/Bld) [Vol rate/Area] 44.105 mL/min/{1.73_m2} Normal [facility] Comment on above: Performed By: #### U TESS, LIPASE, SCAN CBC, PTT, LDH, CRP, HEPATIC, MARISEL, PT, BMP, PHOS, ESR, MG ####[address] Glucose [Mass/Vol] 128 mg/dL High 70-100 [facility] Comment on above: Result Comment: Jay Glucose Reference Range is dependent on time and content of last meal. Glucose of more than 200 mg/dL in a nonstressed, ambulatory subject supports the diagnosis of Diabetes Mellitus. ADA recommended reference range Performed By: #### U TESS, LIPASE, SCAN CBC, PTT, LDH, CRP, HEPATIC, MARISEL, PT, BMP, PHOS, ESR, MG ####[address] Potassium [Moles/Vol] 5.5 mmol/L High 3.5-5.1 [facility] Comment on above: Performed By: #### U TESS, LIPASE, SCAN CBC, PTT, LDH, CRP, HEPATIC, AMRISEL, PT, BMP, PHOS, ESR, MG ####[address] Sodium [Moles/Vol] 126 mmol/L Low 136-145 [facility] Comment on above: Performed By: #### U TESS, LIPASE, SCAN CBC, PTT, LDH, CRP, HEPATIC, MARISEL, PT, BMP, PHOS, ESR, MG ####[address] Urea nitrogen [Mass/Vol] 31 mg/dL High 7-25 [facility] Comment on above: Performed By: #### U TESS, LIPASE, SCAN CBC, PTT, LDH, CRP, HEPATIC, MARISEL, PT, BMP, PHOS, ESR, MG ####[address] Blood Cultureon 10-19-2023 Bacteria identified Cx Nom (Bld) NO GROWTH 5 DAYS PERFORMED BY: [address] [place] [address] PATHOLOGIST CONSULTANT NURSE STEFANO HOLT M.D. Normal [facility] Comment on above: Performed By: #### C UBLD, A1C WTH eA ####[place] [id number] [facility] Bacteria identified Cx Nom (Bld) NO GROWTH 5 DAYS PERFORMED BY: [address] [place] [address] PATHOLOGIST CONSULTANT NURSE STEFANO HOLT M.D. Normal [facility] Comment on above: Performed By: #### C UBLD ####[place] [id number] [facility] C-Reactive Proteinon 024 C-Reactive Protein 10.9 mg/dL High 0.0-0.5 [facility] Comment on above: Result Comment: PERF ORMED BY:[address] [place], [place] [phone] MEDICAL DIRECTORSTEFANO HOLT M.D. Performed By: #### U TESS, LIPASE, SCAN CBC, PTT, LDH, CRP, HEPATIC, MARISEL, PT, BMP, PHOS, ESR, MG ####[place] [id number] [facility] Creatine Kinaseon 10-19-2023 CK [Catalytic activity/Vol] 28 U/L Low 30-223 [facility] Comment on above: Performed By: #### C JOSE DB, CK ####[place] [id number] [facility] Creatinine Kinase MBon 10-19 CK.MB [Mass/Vol] 5.0 ng/mL Normal 0.6-6.3 [facility] Comment on above: Performed By: #### C AVERY, CK ####[address] CKMB Relative Index 17.8 % High 0.00-2.50 [facility] Comment on above: Result Comment: PERF ORMED BY:[address] [place], [place] [phone] MEDICAL DIRECTORSTEFANO HOLT M.D. Performed By: #### C AVERY, CK ####[place] [id number] [facility] Dipstick and Microscopicon 0 10-19-2023 Appearance (U) Cloudy Critically abnormal Clear [facility] Comment on above: Order Comment: Name Collection Type:: Straight Catheter Performed By: #### A PEPE, CUU ####[address] [address] [facility] Bacteria,Urine 2+ High None Seen [facility] Comment on above: Order Comment: Name Collection Type:: Straight Catheter Performed By: #### A PEPE, CUU ####[place] [id number] [facility] Bilirubin,Urine Negative Normal Negative [facility] Comment on above: Order Comment: Name Collection Type:: Straight Catheter Performed By: #### A PEPE, CUU ####[place] [address] [place] [address] [facility] Color (U) Yellow Normal Yellow [facility] Comment on above: Order Comment: Name Collection Type:: Straight Catheter Performed By: #### A DDONUAPLUS, CUU ####[place] [address] [place] [address] [facility] Glucose Ql (U) Normal Normal Normal [facility] Comment on above: Order Comment: Name Collection Type:: Straight Catheter Performed By: #### A DDONUAPLUS, CUU ####[address] [address] [place] Hyaline Casts,Urine 0-8 Normal 0-8 [facility] Comment on above: Order Comment: Name Collection Type:: Straight Catheter Performed By: #### A DDONUAPLUS, CUU ####[address] [address] [facility] Ketones Ql (U) Trace High Negative [facility] Comment on above: Order Comment: Name Collection Type:: Straight Catheter Performed By: #### A DDONUAPLUS, CUU ####[address] [address] [facility] Leukocyte esterase Test strip Ql (U) 3+ High Negative [facility] Comment on above: Order Comment: Name Collection Type:: Straight Catheter Performed By: #### A DDONUAPLUS, CUU ####[address] [address] [place] Nitrite,Urine Negative Normal Negative [facility] Comment on above: Order Comment: Name Collection Type:: Straight Catheter Performed By: #### A DDONUAPLUS, CUU ####[address] [address] [place] Occult Blood,Urine 3+ High Negative [facility] Comment on above: Order Comment: Name Collection Type:: Straight Catheter Result Comment: PERF ORMED BY:[address] ADHIKARIUSKKLAM[place], [place] [phone] MEDICAL NAHID HOLT M.D. Performed By: #### A DDONUAPLUS, CUU ####[place] [id number] [facility] pH (U) 5.0 [pH] Normal 5.0-9.0 [facility] Comment on above: Order Comment: Name Collection Type:: Straight Catheter Performed By: #### A DDONUAPLUS, CUU ####[place] [id number] [facility] Protein (U) [Mass/Vol] 100 mg/dL High Negative Th e [facility] Comment on above: Order Comment: Name Collection Type:: Straight Catheter Performed By: #### A DDONUAPLUS, CUU ####[address] RBC,Urine 20-49 High 0-4 [facility] Comment on above: Order Comment: Name Collection Type:: Straight Catheter Performed By: #### A DDONUAPLUS, CUU ####[address] Specificy [place],Urine 1.020 Normal 1.001-1.03 0 [facility] Comment on above: Order Comment: Name Collection Type:: Straight Catheter Performed By: #### A DDONUAPLUS, CUU ####[address] Squamous Epithelial Cell,Urine 0-1 Normal 0-2 [facility] Comment on above: Order Comment: Name Collection Type:: Straight Catheter Performed By: #### A DDONUAPLUS, CUU ####[place] [id number] [facility] Urobilinogen,Urine Normal Normal Normal [facility] Comment on above: Order Comment: Name Collection Type:: Straight Catheter Performed By: #### A DDONUAPLUS, CUU ####[place] [id number] [facility] WBC,Urine 10-19 High 0-4 [facility] Comment on above: Order Comment: Name Collection Type:: Straight Catheter Performed By: #### A DDONUAPLUS, CUU ####[place] [id number] [facility] Yeast,Urine None Seen Normal None Seen [facility] Comment on above: Order Comment: Name Collection Type:: Straight Catheter Result Comment: PERF ORMED BY:[address] [address] [place], [place] [phone] MEDICAL DIRECTORSTEFANO HOLT M.D. Performed By: #### A DDONUAZIGGY, CUU ####[place] [id number] [facility] Erythrocyte Sedimentation Ra breezy 10-19-2023 ESR (Bld) [Velocity] 79 mm/h High 0-29 [facility] Comment on above: Result Comment: PERF ORMED BY:[address] [place]ISPENC[place], [place] [phone] MEDICAL DIRECTORSTEFANO HOLT M.D. Performed By: #### U TESS, LIPASE, SCAN CBC, PTT, LDH, CRP, HEPATIC, MARISEL, PT, BMP, PHOS, ESR, MG ####[place] [id number] [facility] Hepatic Panelon 10-19-2023 Albumin [Mass/Vol] 3.2 g/dL Low 3.5-5.7 [facility] Comment on above: Performed By: #### U TESS, LIPASE, SCAN CBC, PTT, LDH, CRP, HEPATIC, MARISEL, PT, BMP, PHOS, ESR, MG ####[address] Albumin/Globulin [Mass ratio] 0.7 {ratio} Normal [facility] Comment on above: Performed By: #### U TESS, LIPASE, SCAN CBC, PTT, LDH, CRP, HEPATIC, MARISEL, PT, BMP, PHOS, ESR, MG ####[address] ALP [Catalytic activity/Vol] 117 U/L High 34-104 [facility] Comment on above: Performed By: #### U TESS, LIPASE, SCAN CBC, PTT, LDH, CRP, HEPATIC, MARISEL, PT, BMP, PHOS, ESR, MG ####[address] ALT [Catalytic activity/Vol] 113 U/L High 7-52 [facility] Comment on above: Performed By: #### U TESS, LIPASE, SCAN CBC, PTT, LDH, CRP, HEPATIC, MARISEL, PT, BMP, PHOS, ESR, MG ####[address] AST [Catalytic activity/Vol] 112 U/L High 13-39 [facility] Comment on above: Performed By: #### U TESS, LIPASE, SCAN CBC, PTT, LDH, CRP, HEPATIC, MARISEL, PT, BMP, PHOS, ESR, MG ####[address] Bilirubin [Mass/Vol] 0.5 mg/dL Normal 0.3-1.0 [facility] Comment on above: Performed By: #### U TESS, LIPASE, SCAN CBC, PTT, LDH, CRP, HEPATIC, MARISEL, PT, BMP, PHOS, ESR, MG ####[address] Bilirubin,Indirect 0.3 mg/dL Normal [facility] Comment on above: Performed By: #### U TESS, LIPASE, SCAN CBC, PTT, LDH, CRP, HEPATIC, MARISEL, PT, BMP, PHOS, ESR, MG ####[address] Bilirubin.indirect [Mass/Vol] 0.20 mg/dL High 0.03-0.18 [facility] Comment on above: Performed By: #### U TESS, LIPASE, SCAN CBC, PTT, LDH, CRP, HEPATIC, MARISEL, PT, BMP, PHOS, ESR, MG ####[address] Globulin (S) [Mass/Vol] 4.8 g/dL Normal [facility] Comment on above: Performed By: #### U TESS, LIPASE, SCAN CBC, PTT, LDH, CRP, HEPATIC, MARISEL, PT, BMP, PHOS, ESR, MG ####[place] [address] [facility] Protein [Mass/Vol] 8.0 g/dL Normal 6.4-8.9 [facility] Comment on above: Performed By: #### U TESS, LIPASE, SCAN CBC, PTT, LDH, CRP, HEPATIC, MARISEL, PT, BMP, PHOS, ESR, MG ####[address] [address] [facility] LDH Lactate Dehydrogenaseon 10-19-2023 LDH Lactate Dehydrogenase 362 U/L High 140-271 [facility] Comment on above: Performed By: #### U TESS, LIPASE, SCAN CBC, PTT, LDH, CRP, HEPATIC, MARISEL, PT, BMP, PHOS, ESR, MG ####[place] [id number] [facility] Lactic Acidon 10-19-2023 Lactate [Moles/Vol] 4.1 mmol/L Off scale high 0.5-2.2 T [facility] Comment on above: Result Comment: Crit ical Result : Called to and read back by: MEHDI PINO at: 10/19/2023 21:20:56 by:RNPERFORMED BY:[address] [place], [place] [phone] MEDICAL DIRECTORSTEFANO HOLT M.D. Performed By: #### H S TROP, LACTIC ####[address] [address] [facility] Lactic Acid Reflexon 024 Lactic Acid Reflex 3.6 mmol/L Off scale high 0.5-2.2 [facility] Comment on above: Result Comment: Crit ical Result : Called to and read back by: BASHIR PINO at: 10/19/2023 23:23:24 by:EVPERFORMED BY:[address] [address] [place], [place] [phone] MEDICAL DIRECTORSTEFANO HOLT M.D. Performed By: #### L ACTIC RFX ####[place] [id number] [facility] Lipaseon 01-18-2024 Lipase [Catalytic activity/Vol] 11.0 U/L Normal 11.0-82.0 [facility] Comment on above: Performed By: #### U TESS, LIPASE, SCAN CBC, PTT, LDH, CRP, HEPATIC, MARISEL, PT, BMP, PHOS, ESR, MG ####[address] [address] [facility] Magnesiumon 10-19-2023 Magnesium [Mass/Vol] 2.0 mg/dL Normal 1.9-2.7 [facility] Comment on above: Performed By: #### U TESS, LIPASE, SCAN CBC, PTT, LDH, CRP, HEPATIC, MARISEL, PT, BMP, PHOS, ESR, MG ####[place] [id number] [facility] Partial Thromboplastin Timeo n 10-19-2023 aPTT Coag (Bld) [Time] 26.2 s Normal 25.1-36.5 [facility] Comment on above: Result Comment: A he matocrit value greater than 55% may lead to inaccurate results in coagulation testing. Patients having hematocrit values >55% require a special collection tube for coagulation studies. Please contact the laboratory at [phone] for redraw instructions.PERFORMED BY:[address] [place], [place] [phone] MEDICAL DIRECTORSTEFANO HOLT M.D. Performed By: #### U TESS, LIPASE, SCAN CBC, PTT, LDH, CRP, HEPATIC, MARISEL, PT, BMP, PHOS, ESR, MG ####[place] [id number] [facility] Phosphoruson 10-19-2023 Phosphate [Mass/Vol] 5.2 mg/dL High 2.5-4.5 [facility] Comment on above: Performed By: #### U TESS, LIPASE, SCAN CBC, PTT, LDH, CRP, HEPATIC, MARISEL, PT, BMP, PHOS, ESR, MG ####[place] [id number] [facility] Prothrombin Time INRon 10-19 INR Coag (PPP) [Relative time] 1.4 {INR} Normal [facility] Comment on above: Result Comment: INR Therapeutic [...] valves: 3 - 4.5 Performed By: #### U TESS, LIPASE, SCAN CBC, PTT, LDH, CRP, HEPATIC, MARISEL, PT, BMP, PHOS, ESR, MG ####[place] [id number] PT Coag (PPP) [Time] 15.6 s High 9.0-12.9 [facility] Comment on above: Result Comment: A he matocrit value greater than 55% may lead to inaccurate results in coagulation testing. Patients having hematocrit values >55% require a special collection tube for coagulation studies. Please contact the laboratory at [phone] for redraw instructions. Performed By: #### U TESS, LIPASE, SCAN CBC, PTT, LDH, CRP, HEPATIC, MARISEL, PT, BMP, PHOS, ESR, MG ####[address] Scan and CBCon 10-19-2023 Anisocytosis Ql (Bld) Slight Normal [facility] Comment on above: Performed By: #### U TESS, LIPASE, SCAN CBC, PTT, LDH, CRP, HEPATIC, MARISEL, PT, BMP, PHOS, ESR, MG ####[address] Basophils (Bld) [#/Vol] 0.0 10*3/uL Normal 0.0-0.2 [facility] Comment on above: Performed By: #### U TESS, LIPASE, SCAN CBC, PTT, LDH, CRP, HEPATIC, MARISEL, PT, BMP, PHOS, ESR, MG ####[address] Basophils/100 WBC (Bld) 0.4 % Normal . [facility] Comment on above: Performed By: #### U TESS, LIPASE, SCAN CBC, PTT, LDH, CRP, HEPATIC, MARISEL, PT, BMP, PHOS, ESR, MG ####[address] Crenated RBC Slight Normal [facility] Comment on above: Performed By: #### U TESS, LIPASE, SCAN CBC, PTT, LDH, CRP, HEPATIC, MARISEL, PT, BMP, PHOS, ESR, MG ####[address] Eosinophils (Bld) [#/Vol] 0.0 10*3/uL Normal 0.0-0.45 [facility] Comment on above: Performed By: #### U TESS, LIPASE, SCAN CBC, PTT, LDH, CRP, HEPATIC, MARISEL, PT, BMP, PHOS, ESR, MG ####[address] Eosinophils/100 WBC (Bld) 0.0 % Normal . [facility] Comment on above: Performed By: #### U TESS, LIPASE, SCAN CBC, PTT, LDH, CRP, HEPATIC, MARISEL, PT, BMP, PHOS, ESR, MG ####[address] Erythrocyte distribution width (RBC) [Ratio] 17.0 % High 11.9-15.3 [facility] Comment on above: Performed By: #### U TESS, LIPASE, SCAN CBC, PTT, LDH, CRP, HEPATIC, MARISEL, PT, BMP, PHOS, ESR, MG ####[address] [address] Hematocrit (Bld) [Volume fraction] 31.1 % Low 34.0-46.4 [facility] Comment on above: Performed By: #### U TESS, LIPASE, SCAN CBC, PTT, LDH, CRP, HEPATIC, MARISEL, PT, BMP, PHOS, ESR, MG ####[address] Hemoglobin (Bld) [Mass/Vol] 10.1 g/dL Low 11.8-15.4 [facility] Comment on above: Performed By: #### U TESS, LIPASE, SCAN CBC, PTT, LDH, CRP, HEPATIC, MARISEL, PT, BMP, PHOS, ESR, MG ####[address] Lymphocytes (Bld) [#/Vol] 1.5 10*3/uL Normal 1.00-4.8 [facility] Comment on above: Performed By: #### U TESS, LIPASE, SCAN CBC, PTT, LDH, CRP, HEPATIC, MARISEL, PT, BMP, PHOS, ESR, MG ####[address] Lymphocytes/100 WBC (Bld) 14.8 % Normal . [facility] Comment on above: Performed By: #### U TESS, LIPASE, SCAN CBC, PTT, LDH, CRP, HEPATIC, MARISEL, PT, BMP, PHOS, ESR, MG ####[address] MCH (RBC) [Entitic mass] 25.9 pg Normal 24.7-34.3 [facility] Comment on above: Performed By: #### U TESS, LIPASE, SCAN CBC, PTT, LDH, CRP, HEPATIC, MARISEL, PT, BMP, PHOS, ESR, MG ####[address] MCV (RBC) [Entitic vol] 79.7 fL Low 80-100 [facility] Comment on above: Performed By: #### U TESS, LIPASE, SCAN CBC, PTT, LDH, CRP, HEPATIC, MARISEL, PT, BMP, PHOS, ESR, MG ####[address] Mean Corpuscular HGB Conc 32.5 g/dL Normal 32.0-35.0 [facility] Comment on above: Performed By: #### U TESS, LIPASE, SCAN CBC, PTT, LDH, CRP, HEPATIC, MARISEL, PT, BMP, PHOS, ESR, MG ####[address] Microcytosis Slight Normal [facility] Comment on above: Performed By: #### U TESS, LIPASE, SCAN CBC, PTT, LDH, CRP, HEPATIC, MARISEL, PT, BMP, PHOS, ESR, MG ####[address] Monocytes (Bld) [#/Vol] 0.7 10*3/uL Normal 0.0-0.8 [facility] Comment on above: Performed By: #### U TESS, LIPASE, SCAN CBC, PTT, LDH, CRP, HEPATIC, MARISEL, PT, BMP, PHOS, ESR, MG ####[address] Monocytes/100 WBC (Bld) 7.6 % Normal . [facility] Comment on above: Performed By: #### U TESS, LIPASE, SCAN CBC, PTT, LDH, CRP, HEPATIC, MARISEL, PT, BMP, PHOS, ESR, MG ####[address] Neutrophils (Bld) [#/Vol] 7.5 10*3/uL Normal 1.8-7.7 [facility] Comment on above: Performed By: #### U TESS, LIPASE, SCAN CBC, PTT, LDH, CRP, HEPATIC, MARISEL, PT, BMP, PHOS, ESR, MG ####[address] Neutrophils/100 WBC (Bld) 77.2 % Normal . [facility] Comment on above: Performed By: #### U TESS, LIPASE, SCAN CBC, PTT, LDH, CRP, HEPATIC, MARISEL, PT, BMP, PHOS, ESR, MG ####[address] NRBC% 0.1 /100{WBC} Normal 0-0.5 [facility] Comment on above: Performed By: #### U TESS, LIPASE, SCAN CBC, PTT, LDH, CRP, HEPATIC, MARISEL, PT, BMP, PHOS, ESR, MG ####[address] Ovalocytes Slight Normal [facility] Comment on above: Performed By: #### U TESS, LIPASE, SCAN CBC, PTT, LDH, CRP, HEPATIC, MARISEL, PT, BMP, PHOS, ESR, MG ####[address] Platelet Estimate Normal Normal Normal [facility] Comment on above: Performed By: #### U TESS, LIPASE, SCAN CBC, PTT, LDH, CRP, HEPATIC, MARISEL, PT, BMP, PHOS, ESR, MG ####[address] Platelet mean volume (Bld) [Entitic vol] 8.0 fL Normal 6.3-10.7 [facility] Comment on above: Performed By: #### U TESS, LIPASE, SCAN CBC, PTT, LDH, CRP, HEPATIC, MARISEL, PT, BMP, PHOS, ESR, MG ####[address] Platelet Morphology Normal Normal Normal [facility] Comment on above: Performed By: #### U TESS, LIPASE, SCAN CBC, PTT, LDH, CRP, HEPATIC, MARISEL, PT, BMP, PHOS, ESR, MG ####[address] Platelets (Bld) [#/Vol] 361 10*3/uL Normal 150-450 [facility] Comment on above: Performed By: #### U TESS, LIPASE, SCAN CBC, PTT, LDH, CRP, HEPATIC, MARISEL, PT, BMP, PHOS, ESR, MG ####[address] Polychromasia Slight Normal [facility] Comment on above: Performed By: #### U TESS, LIPASE, SCAN CBC, PTT, LDH, CRP, HEPATIC, MARISEL, PT, BMP, PHOS, ESR, MG ####[address] RBC (Bld) [#/Vol] 3.90 10*6/uL Normal 3.60-5.00 [facility] Comment on above: Performed By: #### U TESS, LIPASE, SCAN CBC, PTT, LDH, CRP, HEPATIC, MARISEL, PT, BMP, PHOS, ESR, MG ####[place] [id number] [facility] WBC (Bld) [#/Vol] 9.8 10*3/uL Normal 3.8-11.6 [facility] Comment on above: Performed By: #### U TESS, LIPASE, SCAN CBC, PTT, LDH, CRP, HEPATIC, MARISEL, PT, BMP, PHOS, ESR, MG ####[place] [id number] [facility] Troponin I High Sensitivityo n 10-19-2023 Troponin I High Sensitivity 136.6 pg/mL Off scale high 0.0-15.0 [facility] Comment on above: Result Comment: Crit ical Result : Called to and read back by: MEHDI PINO at: 10/19/2023 22:13:49 by:DCPERFORMED BY:[address] ADHIKARISPENCERTOWN, [place] [phone] MEDICAL DIRECTORSTEFANO HOLT M.D. Performed By: #### H S TROP, LACTIC ####[place] [id number] [facility] Type and Screenon 10-19-2023 ABO and Rh group Nom (Bld) Blood group A Rh(D) positive Normal [facility] Comment on above: Result Comment: PERF ORMED BY:[address] ADHIKARIUSKYFERND[place], [place] [phone] MEDICAL DIRECTORSTEFANO HOLT M.D. Uric Acidon 10-19-2023 Urate [Mass/Vol] 7.9 mg/dL High 2.3-6.6 [facility] Comment on above: Performed By: #### U TESS, LIPASE, SCAN CBC, PTT, LDH, CRP, HEPATIC, MARISEL, PT, BMP, PHOS, ESR, MG ####[address] [address] [facility] Urine Cultureon 10-19-2023 Bacteria identified Cx Nom (U) No Growth 2 Days PERFORMED BY: [facility] [address] [place] [address] PATHOLOGIST CONSULTANT NURSE STEFANO HOLT M.D. Normal [facility] Comment on above: Performed By: #### A ORQUIDEA CANTU ####[facility] [place] [address] [facility] Office Visiton 10-12-2023 Follow-up visit [id number] FredPerla A 1955 F Date Provider Department Center 10/12/2023 [facility] Family History Problem Relation Age of Onset Tuberculosis Mother Heart attack Brother Heart failure Maternal Grandmother Heart attack Maternal Grandfather Family Status - Relation Status Age at Mother Brother Maternal Grandmother Maternal Grandfather Level of Service:09295 AL OFFICE/OUTPATIENT ESTABLISHED LOW MDM 20 MIN Reason for Visit and Comments: Congestive Heart Failure [127] Coronary Artery Disease [187] Hypertension [123907] Normal [facility] Ferritin [Mass/volume] in Se rum or PlasmaOrdered By: Vannessa Perales on 10-05-2023 Ferritin [Mass/Vol] 994.8 ng/mL High 11.0-306.8 [facility] Comment on above: Result Comment: PERF ORMED BY:[place] [address] [place], [place] [phone] MEDICAL DIRECTORSTEFANO HOLT M.D. Performed By: #### F E and TIBC, KRISTI ####[place] [address] [place] [address] [facility] Iron [Mass/volume] in Serum or PlasmaOrdered By: Vannessa Perales on 10-05-2023 Iron [Mass/Vol] 26 ug/dL Low 50-212 [facility] Comment on above: Performed By: #### F E and TIBC, KRISTI ####[place] [address] [place] [address] [facility] Iron and TIBC Profileon % Iron Saturation 10.9 % Low 20-50 [facility] Comment on above: Performed By: #### F E and TIBC, KRISTI ####[address] [place] [address] [facility] Total Iron Binding Capacity 239 ug/dL Low 255-450 [facility] Comment on above: Performed By: #### F E and TIBC, KRISTI ####[place] [address] [place] [id number] [facility] Iron binding capacity [Mass/ volume] in Serum or PlasmaOrdered By: Vannessa Perales on 10-05-2023 Iron binding capacity [Mass/Vol] 239 ug/dL 255-450 [facility] Iron saturation [Mass Fracti on] in Serum or PlasmaOrdered By: Vannessa Perales on 10-05-2023 Iron saturation [Mass fraction] 10.9 % 20-50 [facility] Transferrin [Mass/volume] in Serum or PlasmaOrdered By: Vannessa Perales on 10-05-2023 Transferrin [Mass/Vol] 171 mg/dL Low 203-362 [facility] Comment on above: Performed By: #### F E and TIBC, KRISTI ####[address] Adrenocorticotropic Hormone PLon 10-04-[address] 25.4 pg/mL Normal 7.2-63.3 [facility] Comment on above: Result Comment: ACTH reference interval for samples collected between 7 and 10 AM. Performed at: [facility] [id number] Power Generation Engineer: Juan Hendricks PhD, Phone: [phone] BY:[address] [place], [place] [phone] MEDICAL DIRECTORSTEFANO HOLT M.D. Performed By: #### C ORT, T4F, TSH3 ####[address]#### ACTH ####[facility] , Alanine aminotransferase [En zymatic activity/volume] in Serum or PlasmaOrdered By: Aries Chavez on 10-04-2023 ALT [Catalytic activity/Vol] 67 U/L High 7-52 [facility] Comment on above: Performed By: #### C MP, CBC ####[place] [id number] [facility] Albumin [Mass/volume] in Ser um or Plasma by Bromocresol green (BCG) dye binding methoOrdered By: Aries Chavez on 10-04-2023 Albumin BCG dye [Mass/Vol] 3.4 g/dL 3.5-5.7 [facility] Alkaline phosphatase [Enzyma tic activity/volume] in Serum or PlasmaOrdered By: Aries Chavez on 10-04-2023 ALP [Catalytic activity/Vol] 113 U/L High 34-104 [facility] Comment on above: Performed By: #### C MP, CBC ####[address] Aspartate aminotransferase [ Enzymatic activity/volume] in Serum or PlasmaOrdered By: Aries Chavez on 10-04-2023 AST [Catalytic activity/Vol] 22 U/L Normal 13-39 [facility] Comment on above: Performed By: #### C MP, CBC ####[place] [id number] [facility] Automated basophil %Ordered By: Aries Chavez on 10-04-2023 Basophils/100 WBC (Bld) 2.3 % Normal . [facility] Comment on above: Performed By: #### C MP, CBC ####[place] [id number] [facility] Automated basophil countOrde red By: Aries Chavez on 10-04-2023 Basophils (Bld) [#/Vol] 0.1 10*3/uL Normal 0.0-0.2 [facility] Comment on above: Result Comment: PERF ORMED BY:[address] [place], [place] [phone] MEDICAL DIRECTORSTEFANO HOLT M.D. Performed By: #### C MP, CBC ####[place] [id number] [facility] Automated blood monocyte cou ntOrdered By: Aries Chavez on 10-04-2023 Monocytes (Bld) [#/Vol] 0.7 10*3/uL Normal 0.0-0.8 [facility] Comment on above: Performed By: #### C MP, CBC ####[address] Automated eosinophil %Ordere d By: Aries Chavez on 10-04-2023 Eosinophils/100 WBC (Bld) 2.8 % Normal . [facility] Comment on above: Performed By: #### C MP, CBC ####[address] Automated eosinophil countOr dered By: Aries Chavez on 10-04-2023 Eosinophils (Bld) [#/Vol] 0.2 10*3/uL Normal 0.0-0.45 [facility] Comment on above: Performed By: #### C MP, CBC ####[address] Automated monocyte %Ordered By: Aries Chavez on 10-04-2023 Monocytes/100 WBC (Bld) 11.5 % Normal . [facility] Comment on above: Performed By: #### C MP, CBC ####[address] Automated neutrophil %Ordere d By: Aries Chavez on 10-04-2023 Neutrophils/100 WBC (Bld) 61.7 % Normal . [facility] Comment on above: Performed By: #### C MP, CBC ####[address] Bilirubin.total [Mass/volume ] in Serum or PlasmaOrdered By: Aries Chavez on 10-04-2023 Bilirubin [Mass/Vol] 0.3 mg/dL Normal 0.3-1.0 [facility] Comment on above: Performed By: #### C MP, CBC ####[address] Calcium [Mass/volume] in Ser um or PlasmaOrdered By: Aries Chavez on 10-04-2023 Calcium [Mass/Vol] 8.9 mg/dL Normal 8.6-10.3 [facility] Comment on above: Performed By: #### C MP, CBC ####[place] [id number] [facility] Carbon dioxide, total [Moles /volume] in Serum or PlasmaOrdered By: Aries Chavez on 10-04-2023 CO2 [Moles/Vol] 26.2 mmol/L Normal 21.0-31.0 [facility] Comment on above: Performed By: #### C MP, CBC ####[address] Chloride [Moles/volume] in S leena or PlasmaOrdered By: Aries Chavez on 10-04-2023 Chloride [Moles/Vol] 94 mmol/L Low 98-107 [facility] Comment on above: Performed By: #### C MP, CBC ####[place] [id number] [facility] Complete Blood Count Auto Di ffon 10-04-2023 Mean Corpuscular HGB Conc 32.0 g/dL Normal 32.0-35.0 [facility] Comment on above: Performed By: #### C MP, CBC ####[address] NRBC% 0.1 /100{WBC} Normal 0-0.5 [facility] Comment on above: Performed By: #### C MP, CBC ####[place] [id number] [facility] Comprehensive Metabolic Pane onesimo 10-04-2023 Albumin [Mass/Vol] 3.4 g/dL Low 3.5-5.7 [facility] Comment on above: Performed By: #### C MP, CBC ####[place] [id number] [facility] Creatinine Clr Calc Pharmacy 59.72 Normal [facility] Comment on above: Result Comment: PERF ORMED BY:[place] [address] [place] [phone] MEDICAL DIRECTORSTEFANO HOLT M.D. Performed By: #### C MP, CBC ####[place] [id number] [facility] GFR/1.73 sq M.predicted MDRD (S/P/Bld) [Vol rate/Area] mL/min/{1.73_m2} Normal [facility] Comment on above: Performed By: #### C MP, CBC ####[place] [id number] [facility] Cortisolon 10-04-2023 Cortisol 12.2 ug/dL Normal [facility] Comment on above: Result Comment: Refe rence range: AM 6 - 24 ug/dl PM <10 ug/dl [facility] vp communications and method: [employer] DXI, POLYCLONAL ANTIBODY CORTISOL ASSAY.PERFORMED BY:[place] [address] [place], [place] [phone] MEDICAL DIRECTORSTEFANO HOLT M.D. Performed By: #### C ORT, T4F, TSH3 ####[address]#### ACTH ####[facility] , Creatinine [Mass/volume] in Serum or PlasmaOrdered By: Aries Chavez on 10-04-2023 Creatinine [Mass/Vol] 0.75 mg/dL Normal 0.60-1.20 [facility] Comment on above: Performed By: #### C MP, CBC ####[place] [id number] [facility] Erythrocyte distribution wid th [Ratio] by Automated countOrdered By: Aries Chavez on 10-04-2023 Erythrocyte distribution width (RBC) [Ratio] 18.4 % High 11.9-15.3 [facility] Comment on above: Performed By: #### C MP, CBC ####[address] Erythrocytes [#/volume] in B lood by Automated countOrdered By: Aries Chavez on 10-04-2023 RBC (Bld) [#/Vol] 3.32 10*6/uL Low 3.60-5.00 [facility] Comment on above: Performed By: #### C ZAYNAB, CBC ####[address] Glucose [Mass/volume] in Ser um or PlasmaOrdered By: Aries Chavez on 10-04-2023 Glucose [Mass/Vol] 101 mg/dL High 70-100 [facility] Comment on above: ADA recommended refe rence rangeRandom Glucose Reference Range is dependent on time and content of last meal. Glucose of more than 200 mg/dL in a nonstressed, ambulatory subject supports the diagnosis of Diabetes Mellitus. Result Comment: Jay om Glucose Reference Range is dependent on time and content of last meal. Glucose of more than 200 mg/dL in a nonstressed, ambulatory subject supports the diagnosis of Diabetes Mellitus. ADA recommended reference range Performed By: #### C ZAYNAB, CBC ####[place] [id number] [facility] Hematocrit [Volume Fraction] of Blood by Automated countOrdered By: Aries Chavez on 10-04-2023 Hematocrit (Bld) [Volume fraction] 26.2 % Low 34.0-46.4 [facility] Comment on above: Performed By: #### C ZAYNAB, CBC ####[place] [id number] [facility] Hemoglobin [Mass/volume] in BloodOrdered By: Aries Chavez on 10-04-2023 Hemoglobin (Bld) [Mass/Vol] 8.4 g/dL Low 11.8-15.4 [facility] Comment on above: Performed By: #### C MP, CBC ####[place] [id number] [facility] Leukocytes [#/volume] correc gabriel for nucleated erythrocytes in Blood by Automated counOrdered By: Aries Chavez on 10-04-2023 WBC corrected for nucl RBC Auto (Bld) [#/Vol] 5.8 10*3/uL 3.8-11.6 [facility] Leukocytes [#/volume] in Blo od by Automated countOrdered By: Aries Chavez on 10-04-2023 WBC (Bld) [#/Vol] 5.8 10*3/uL Normal 3.8-11.6 [facility] Comment on above: Performed By: #### C MP, CBC ####[address] Lymphocytes [#/volume] in Bl ood by Automated countOrdered By: Aries Chavez on 10-04-2023 Lymphocytes (Bld) [#/Vol] 1.2 10*3/uL Normal 1.00-4.8 [facility] Comment on above: Performed By: #### C MP, CBC ####[address] Lymphocytes/100 leukocytes i n Blood by Automated countOrdered By: Aries Chavez on 10-04-2023 Lymphocytes/100 WBC (Bld) 21.7 % Normal . [facility] Comment on above: Performed By: #### C MP, CBC ####[address] MCH [Entitic mass] by Automa gabriel countOrdered By: Aries Chavez on 10-04-2023 MCH (RBC) [Entitic mass] 25.3 pg Normal 24.7-34.3 [facility] Comment on above: Performed By: #### C MP, CBC ####[address] MCHC Auto (RBC) [Mass/Vol]Or dered By: Aries Chavez on 10-04-2023 MCHC (RBC) [Mass/Vol] 32.0 g/dL 32.0-35.0 [facility] MCV [Entitic volume] by Auto mated countOrdered By: Aries Chavez on 10-04-2023 MCV (RBC) [Entitic vol] 79.1 fL Low 80-100 [facility] Comment on above: Performed By: #### C MP, CBC ####[address] [place] [address] [place] Neutrophils [#/volume] in Bl ood by Automated countOrdered By: Aries Chavez on 10-04-2023 Neutrophils (Bld) [#/Vol] 3.6 10*3/uL Normal 1.8-7.7 [facility] Comment on above: Performed By: #### C MP, CBC ####[address] No Panel InformationOrdered By: Aries Chavez on 10-04-2023 Adrenocorticotropic Hormone 25.4 pg/mL 7.2-63.3 [facility] Comment on above: ACTH reference inter wendy for samples collected between 7 and10 AM.Performed at: [facility] [place] [id number] Director: Juan Hendricks PhD, Phone: [phone] Estimated GFR (CKD-EPI) > 60.0 mL/Min [facility] Creatinine Clearance (Chem 59.72 [facility] Nucleated erythrocytes [Pres ence] in Blood by Automated countOrdered By: Aries Chavez on 10-04-2023 Nucleated RBC Auto Ql (Bld) 0.1 /100{WBC} 0-0.5 [facility] Platelet mean volume [Entiti c volume] in Blood by Automated countOrdered By: Aries Chavez on 10-04-2023 Platelet mean volume (Bld) [Entitic vol] 6.8 fL Normal 6.3-10.7 [facility] Comment on above: Performed By: #### C MP, CBC ####[address] Platelets [#/volume] in Bloo d by Automated countOrdered By: Aries Chavez on 10-04-2023 Platelets (Bld) [#/Vol] 404 10*3/uL Normal 150-450 [facility] Comment on above: Performed By: #### C MP, CBC ####[address] Potassium [Moles/volume] in Serum or PlasmaOrdered By: Aries Chavez on 10-04-2023 Potassium [Moles/Vol] 4.7 mmol/L Normal 3.5-5.1 [facility] Comment on above: Performed By: #### C MP, CBC ####[place] [address] Protein [Mass/volume] in Ser um or PlasmaOrdered By: Aries Chavez on 10-04-2023 Protein [Mass/Vol] 7.9 g/dL Normal 6.4-8.9 [facility] Comment on above: Performed By: #### C MP, CBC ####[place] [address] [place] [id number] [facility] Random cortisol measurementO rdered By: Aries Chavez on 10-04-2023 Cortisol [Mass/Vol] 12.2 ug/dL [facility] Comment on above: [facility] vp communications and method:AMRITA UNICEL DXI, POLYCLONAL ANTIBODY CORTISOL ASSAY.Reference range: AM 6 - 24 ug/dl PM <10 ug/dl Serum globulin measurement b y calculation (mass/volume)Ordered By: Aries Chavez on 10-04-2023 Globulin (S) [Mass/Vol] 4.5 g/dL [facility] Comment on above: Performed By: #### C MP, CBC ####[place] [id number] [facility] Serum or plasma albumin/glob ulin mass ratioOrdered By: Aries Chavez on 10-04-2023 Albumin/Globulin [Mass ratio] 0.8 {ratio} [facility] Comment on above: Performed By: #### C MP, CBC ####[place] [address] [place] [id number] [facility] Serum or plasma anion gap de terminationOrdered By: Aries Chavez on 10-04-2023 Anion gap [Moles/Vol] 9.5 mmol/L Normal 6.0-15.0 [facility] Comment on above: Performed By: #### C MP, CBC ####[place] [id number] [facility] Sodium [Moles/volume] in Ser um or PlasmaOrdered By: Aries Chavez on 10-04-2023 Sodium [Moles/Vol] 125 mmol/L Low 136-145 [facility] Comment on above: Performed By: #### C MP, CBC ####[address] Thyrotropin [Units/volume] i n Serum or PlasmaOrdered By: Aries Chavez on 10-04-2023 TSH Qn 1.03 m[IU]/L Normal 0.45-5.33 [facility] Comment on above: Performed By: #### C ORT, T4F, TSH3 ####[address]#### ACTH ####[facility] , Thyroxine (T4) free [Mass/vo lume] in Serum or PlasmaOrdered By: Aries Chavez on 10-04-2023 Free T4 [Mass/Vol] 1.00 ng/dL Normal 0.61-1.12 [facility] Comment on above: Performed By: #### C ORT, T4F, TSH3 ####[address]#### ACTH ####[facility] , Urea nitrogen [Mass/volume] in Serum or PlasmaOrdered By: Aries Chavez on 10-04-2023 Urea nitrogen [Mass/Vol] 17 mg/dL Normal 7-25 [facility] Comment on above: Performed By: #### C MP, CBC ####[address] Adrenocorticotropic Hormone PLon 09-12-[address] 33.9 pg/mL Normal 7.2-63.3 [facility] Comment on above: Result Comment: ACTH reference interval for samples collected between 7 and 10 AM. Performed at: - [facility] [id number] Power Generation Engineer: Juan Hendricks PhD, Phone: [phone] BY:[address] [place], [place] [phone] MEDICAL DIRECTORSTEFANO HOLT M.D. Performed By: #### C UU, T4F, TSH3, ADDONUAPLUS, JER ####[address]#### ACTH ####[facility] , Anisocytosis [Presence] in B lood by Light microscopyOrdered By: Aries Chavez on 09-12-2023 Anisocytosis Ql (Bld) Moderate Normal [facility] Comment on above: Performed By: #### C MP, SCAN CBC ####[address] Automated erythrocytes count in urine sediment (number/area)Ordered By: Aries Chavez on 09-12-2023 RBC Auto (Urine sed) [#/Area] 5-9 [HPF] High 0-4 [facility] Automated leukocytes count i n urine sediment (number/area)Ordered By: Aries Chavez on 09-12-2023 WBC Auto (Urine sed) [#/Area] 5-9 [HPF] High 0-4 [facility] Automated urine color determ inationOrdered By: Aries Chavez on 09-12-2023 Color (U) Yellow Normal Yellow [facility] Comment on above: Order Comment: Name Collection Type:: Voided Performed By: #### C UU, T4F, TSH3, ADDONUAPLUS, JER ####[address]#### ACTH ####[facility] , Bilirubin Test strip Ql (U)O rdered By: Aries Chavez on 09-12-2023 Bilirubin Ql (U) Negative Negative [facility] Comprehensive Metabolic Pane onesimo 09-12-2023 Albumin [Mass/Vol] 3.4 g/dL Low 3.5-5.7 [facility] Comment on above: Performed By: #### C MP, SCAN CBC ####[address] Albumin/Globulin [Mass ratio] 0.8 {ratio} Normal [facility] Comment on above: Performed By: #### C MP, SCAN CBC ####[address] ALP [Catalytic activity/Vol] 89 U/L Normal 34-104 [facility] Comment on above: Performed By: #### C MP, SCAN CBC ####[address] ALT [Catalytic activity/Vol] 43 U/L Normal 7-52 [facility] Comment on above: Performed By: #### C MP, SCAN CBC ####[address] Anion gap [Moles/Vol] 8.3 mmol/L Normal 6.0-15.0 [facility] Comment on above: Performed By: #### C MP, SCAN CBC ####[address] AST [Catalytic activity/Vol] 14 U/L Normal 13-39 [facility] Comment on above: Performed By: #### C MP, SCAN CBC ####[address] Bilirubin [Mass/Vol] 0.3 mg/dL Normal 0.3-1.0 [facility] Comment on above: Performed By: #### C MP, SCAN CBC ####[address] Calcium [Mass/Vol] 9.1 mg/dL Normal 8.6-10.3 [facility] Comment on above: Performed By: #### C MP, SCAN CBC ####[address] Chloride [Moles/Vol] 95 mmol/L Low 98-107 [facility] Comment on above: Performed By: #### C MP, SCAN CBC ####[address] CO2 [Moles/Vol] 28.4 mmol/L Normal 21.0-31.0 [facility] Comment on above: Performed By: #### C MP, SCAN CBC ####[place] [id number] [facility] Creatinine [Mass/Vol] 0.68 mg/dL Normal 0.60-1.20 [facility] Comment on above: Performed By: #### C MP, SCAN CBC ####[place] [id number] [facility] Creatinine Clr Calc Pharmacy 59.72 Normal [facility] Comment on above: Result Comment: PERF ORMED BY:[address] [place], [place] [phone] MEDICAL NAHID HOLT M.D. Performed By: #### C MP, SCAN CBC ####[place] [id number] [facility] GFR/1.73 sq M.predicted MDRD (S/P/Bld) [Vol rate/Area] mL/min/{1.73_m2} Normal [facility] Comment on above: Performed By: #### C MP, SCAN CBC ####[place] [id number] [facility] Globulin (S) [Mass/Vol] 4.5 g/dL Normal [facility] Comment on above: Performed By: #### C MP, SCAN CBC ####[address] Glucose [Mass/Vol] 97 mg/dL Normal 70-100 [facility] Comment on above: Result Comment: Jay Glucose Reference Range is dependent on time and content of last meal. Glucose of more than 200 mg/dL in a nonstressed, ambulatory subject supports the diagnosis of Diabetes Mellitus. ADA recommended reference range Performed By: #### C MP, SCAN CBC ####[address] Potassium [Moles/Vol] 4.7 mmol/L Normal 3.5-5.1 [facility] Comment on above: Performed By: #### C MP, SCAN CBC ####[place] [id number] [facility] Protein [Mass/Vol] 7.9 g/dL Normal 6.4-8.9 [facility] Comment on above: Performed By: #### C MP, SCAN CBC ####[address] Sodium [Moles/Vol] 127 mmol/L Low 136-145 [facility] Comment on above: Performed By: #### C MP, SCAN CBC ####[address] Urea nitrogen [Mass/Vol] 13 mg/dL Normal 7-25 [facility] Comment on above: Performed By: #### C MP, SCAN CBC ####[place] [id number] [facility] Cortisolon 09-12-2023 Cortisol 14.6 ug/dL Normal [facility] Comment on above: Result Comment: Refe rence range: AM 6 - 24 ug/dl PM <10 ug/dlPERFORMED BY:[address] [place], [place] [phone] MEDICAL DIRECTORSTEFANO OHLT M.D. Performed By: #### C UU, T4F, TSH3, ADDONUAPLUS, JER ####[address]#### ACTH ####[facility] , Dipstick and Microscopicon 1 11-13-2022 Appearance (U) Clear Normal Clear [facility] Comment on above: Order Comment: Name Collection Type:: Voided Performed By: #### C UU, T4F, TSH3, ADDONUAPLUS, JER ####[address]#### ACTH ####[facility] , Bacteria,Urine None Seen Normal None Seen [facility] Comment on above: Order Comment: Name Collection Type:: Voided Performed By: #### C UU, T4F, TSH3, ADDONUAPLUS, JER ####[address]#### ACTH ####[facility] , Bilirubin,Urine Negative Normal Negative [facility] Comment on above: Order Comment: Name Collection Type:: Voided Performed By: #### C UU, T4F, TSH3, ADDONUAPLUS, JER ####[address]#### ACTH ####[facility] , Glucose Ql (U) Normal Normal Normal [facility] Comment on above: Order Comment: Name Collection Type:: Voided Performed By: #### C UU, T4F, TSH3, ADDONUAPLUS, JER ####[address]#### ACTH ####[facility] , Hyaline Casts,Urine 0-8 Normal 0-8 [facility] Comment on above: Order Comment: Name Collection Type:: Voided Performed By: #### C UU, T4F, TSH3, ADDONUAPLUS, JER ####[address]#### ACTH ####[facility] , Ketones Ql (U) Negative Normal Negative [facility] Comment on above: Order Comment: Name Collection Type:: Voided Performed By: #### C UU, T4F, TSH3, ADDONUAPLUS, JER ####[address]#### ACTH ####[facility] , Leukocyte esterase Test strip Ql (U) 2+ High Negative [facility] Comment on above: Order Comment: Name Collection Type:: Voided Performed By: #### C UU, T4F, TSH3, ADDONUAPLUS, JER ####[place] [address] [place]#### ACTH ####[facility] , Nitrite,Urine Negative Normal Negative [facility] Comment on above: Order Comment: Name Collection Type:: Voided Performed By: #### C UU, T4F, TSH3, ADDONUAPLUS, JER ####[place] [id number] [facility]#### ACTH ####[facility] , Occult Blood,Urine 2+ High Negative [facility] Comment on above: Order Comment: Name Collection Type:: Voided Result Comment: PERF ORMED BY:[address] [place], [place] [phone] MEDICAL DIRECTORSTEFANO HOLT M.D. Performed By: #### C UU, T4F, TSH3, ADDONUAPLUS, JER ####[address]#### ACTH ####[facility] , RBC,Urine 5-9 High 0-4 [facility] Comment on above: Order Comment: Name Collection Type:: Voided Performed By: #### C UU, T4F, TSH3, ADDONUAPLUS, JER ####[address]#### ACTH ####[facility] , Specificy [place],Urine 1.012 Normal 1.001-1.03 0 [facility] Comment on above: Order Comment: Name Collection Type:: Voided Performed By: #### C UU, T4F, TSH3, ADDONUAPLUS, JER ####[address]#### ACTH ####[facility] , Squamous Epithelial Cell,Urine None Seen Normal 0-2 [facility] Comment on above: Order Comment: Name Collection Type:: Voided Performed By: #### C UU, T4F, TSH3, ADDONUAPLUS, JER ####[place] [id number] [place]#### ACTH ####[facility] , Urobilinogen,Urine Normal Normal Normal [facility] Comment on above: Order Comment: Name Collection Type:: Voided Performed By: #### C UU, T4F, TSH3, ADDONUAPLUS, JER ####[address]#### ACTH ####[facility] , WBC,Urine 5-9 High 0-4 [facility] Comment on above: Order Comment: Name Collection Type:: Voided Performed By: #### C UU, T4F, TSH3, ADDONUAPLUS, JER ####[address]#### ACTH ####[facility] , Yeast,Urine None Seen Normal None Seen [facility] Comment on above: Order Comment: Name Collection Type:: Voided Result Comment: PERF ORMED BY:[address] [place], [place] [phone] MEDICAL DIRECTORSTEFANO HOLT M.D. Performed By: #### C UU, T4F, TSH3, ADDONUAPLUS, JER ####[address]#### ACTH ####[facility] , Free T4 (Free Thyroxine)on 11-13-2022 Free T4 [Mass/Vol] 1.12 ng/dL Normal 0.61-1.12 [facility] Comment on above: Performed By: #### C UU, T4F, TSH3, ADDONUAPLUS, JER ####[address]#### ACTH ####[facility] , Hypochromia LM Ql (Bld)Order ed By: Aries Chavez on 09-12-2023 Hypochromia Ql (Bld) [facility] Ketones Auto test strip (U) [Mass/Vol]Ordered By: Aries Chavez on 09-12-2023 Ketones (U) [Mass/Vol] Negative Negative [facility] - UrinalysisOrder ed By: Aries Chavez on 09-12-2023 Hyaline casts LM Ql (Urine sed) 0-8 [LPF] 0-8 [facility] Microcytes LM Ql (Bld)Ordere d By: Aries Chavez on 09-12-2023 Microcytes Ql (Bld) Slight [facility] Nitrite Test strip Ql (U)Ord ered By: Aries Chavez on 09-12-2023 Nitrite Ql (U) Negative Negative [facility] No Panel InformationOrdered By: Aries Chavez on 09-12-2023 Adrenocorticotropic Hormone 33.9 pg/mL 7.2-63.3 [facility] Comment on above: ACTH reference inter wendy for samples collected between 7 and10 AM.Performed at: [facility] [address] [id number] Director: Juan Hendricks PhD, Phone: [phone] Ovalocyte detectionOrdered B y: Aries Chavez on 09-12-2023 Ovalocytes LM Ql (Bld) Slight [facility] Platelet adequacy [Presence] in Blood by Light microscopyOrdered By: Aries Chavez on 09-12-2023 Platelets LM Ql (Bld) Normal Normal [facility] Platelet morphology finding [Identifier] in BloodOrdered By: Aries Chavez on 09-12-2023 Platelet morphology finding Nom (Bld) Normal Normal [facility] Poikilocytosis [Presence] in Blood by Light microscopyOrdered By: Aries Chavez on 09-12-2023 Poikilocytosis LM Ql (Bld) Slight [facility] Polychromasia [Presence] in Blood by Light microscopyOrdered By: Aries Chavez on 09-12-2023 Polychromasia LM Ql (Bld) Slight [facility] RBC morphologyOrdered By: Gregorio Chavez on 09-12-2023 RBC morphology finding Nom (Bld) N/A [facility] Scan and CBCon 09-12-2023 Basophils (Bld) [#/Vol] 0.1 10*3/uL Normal 0.0-0.2 [facility] Comment on above: Performed By: #### C MP, SCAN CBC ####[address] [address] [facility] Basophils/100 WBC (Bld) 2.3 % Normal . [facility] Comment on above: Performed By: #### C MP, SCAN CBC ####[address] [address] [facility] Eosinophils (Bld) [#/Vol] 0.1 10*3/uL Normal 0.0-0.45 [facility] Comment on above: Performed By: #### C MP, SCAN CBC ####[place] [id number] [facility] Eosinophils/100 WBC (Bld) 1.8 % Normal . [facility] Comment on above: Performed By: #### C MP, SCAN CBC ####[place] [id number] [facility] Erythrocyte distribution width (RBC) [Ratio] 20.8 % High 11.9-15.3 [facility] Comment on above: Performed By: #### C MP, SCAN CBC ####[place] [id number] [facility] Hematocrit (Bld) [Volume fraction] 25.0 % Low 34.0-46.4 [facility] Comment on above: Performed By: #### C MP, SCAN CBC ####[place] [id number] [facility] Hemoglobin (Bld) [Mass/Vol] 8.1 g/dL Low 11.8-15.4 [facility] Comment on above: Performed By: #### C MP, SCAN CBC ####[address] [address] [facility] Hypersegmented Neutrophils Slight Normal [facility] Comment on above: Performed By: #### C MP, SCAN CBC ####[address] [place] [address] [place] Hypochromasia Moderate Normal [facility] Comment on above: Performed By: #### C MP, SCAN CBC ####[address] Lymphocytes (Bld) [#/Vol] 1.3 10*3/uL Normal 1.00-4.8 [facility] Comment on above: Performed By: #### C MP, SCAN CBC ####[address] Lymphocytes/100 WBC (Bld) 21.2 % Normal . [facility] Comment on above: Performed By: #### C MP, SCAN CBC ####[address] MCH (RBC) [Entitic mass] 25.6 pg Normal 24.7-34.3 [facility] Comment on above: Performed By: #### C MP, SCAN CBC ####[address] MCV (RBC) [Entitic vol] 79.0 fL Low 80-100 [facility] Comment on above: Performed By: #### C MP, SCAN CBC ####[address] Mean Corpuscular HGB Conc 32.4 g/dL Normal 32.0-35.0 [facility] Comment on above: Performed By: #### C MP, SCAN CBC ####[address] Microcytosis Slight Normal [facility] Comment on above: Performed By: #### C MP, SCAN CBC ####[address] Monocytes (Bld) [#/Vol] 0.7 10*3/uL Normal 0.0-0.8 [facility] Comment on above: Performed By: #### C MP, SCAN CBC ####[address] Monocytes/100 WBC (Bld) 11.7 % Normal . [facility] Comment on above: Performed By: #### C MP, SCAN CBC ####[place] [id number] [facility] Neutrophils (Bld) [#/Vol] 3.9 10*3/uL Normal 1.8-7.7 [facility] Comment on above: Performed By: #### C MP, SCAN CBC ####[place] [id number] [facility] Neutrophils/100 WBC (Bld) 63.0 % Normal . [facility] Comment on above: Performed By: #### C MP, SCAN CBC ####[place] [id number] [facility] NRBC% 0.1 /100{WBC} Normal 0-0.5 [facility] Comment on above: Performed By: #### C MP, SCAN CBC ####[place] [id number] [facility] Ovalocytes Slight Normal [facility] Comment on above: Performed By: #### C MP, SCAN CBC ####[address] [address] [facility] Platelet Estimate Normal Normal Normal [facility] Comment on above: Performed By: #### C MP, SCAN CBC ####[place] [id number] [facility] Platelet mean volume (Bld) [Entitic vol] 7.5 fL Normal 6.3-10.7 [facility] Comment on above: Performed By: #### C MP, SCAN CBC ####[place] [id number] [facility] Platelet Morphology Normal Normal Normal [facility] Comment on above: Result Comment: PERF ORMED BY:[address] [place], [place] [phone] MEDICAL DIRECTORSTEFANO HOLT M.D. Performed By: #### C MP, SCAN CBC ####[place] [phone] [facility] Platelets (Bld) [#/Vol] 395 10*3/uL Normal 150-450 [facility] Comment on above: Performed By: #### C MP, SCAN CBC ####[address] Poikilocytosis Slight Normal [facility] Comment on above: Performed By: #### C MP, SCAN CBC ####[address] Polychromasia Slight Normal [facility] Comment on above: Performed By: #### C MP, SCAN CBC ####[address] RBC (Bld) [#/Vol] 3.17 10*6/uL Low 3.60-5.00 [facility] Comment on above: Performed By: #### C MP, SCAN CBC ####[address] WBC (Bld) [#/Vol] 6.2 10*3/uL Normal 3.8-11.6 [facility] Comment on above: Performed By: #### C MP, SCAN CBC ####[address] Specific gravity Auto test s trip (U) [Rel density]Ordered By: Aries Chavez on 09-12-2023 Specific gravity (U) [Rel density] 1.012 1.001-1.03 0 [facility] Squamous epithelial cells de tection in urine sediment by light microscopyOrdered By: Aries Chavez on 09-12-2023 Epithelial cells.squamous LM Ql (Urine sed) None seen [HPF] 0-2 [facility] Thyroid Stimulating Hormoneo n 09-12-2023 TSH Qn 0.90 m[IU]/L Normal 0.45-5.33 [facility] Comment on above: Performed By: #### C UU, T4F, TSH3, ADDONUAPLUS, JER ####[address]#### ACTH ####[facility] , Urine Cultureon 09-12-2023 Bacteria identified Cx Nom (U) Normal [facility] Comment on above: Performed By: #### C UU, T4F, TSH3, ADDONUAPLUS, JER ####[facility] [id number]#### ACTH ####[facility] , Urine bacteria detection by automated methodOrdered By: Aries Chavez on 09-12-2023 Bacteria Auto Ql (U) None seen None Seen [facility] Urine clarity by refractomet ry automatedOrdered By: Aries Chavez on 09-12-2023 Clarity Refractometry automated (U) Clear Clear [facility] Urine culture routineOrdered By: Aries Chavez on 09-12-2023 Bacteria identified Cx Nom (U) 2 Days [facility] Bacteria identified Cx Nom (U) 2 Days [facility] Urine glucose measurement by automated test strip (mass/volume)Ordered By: Aries Chavez on 09-12-2023 Glucose Auto test strip (U) [Mass/Vol] Normal mg/dL Normal [facility] Urine hemoglobin detection b y automated test stripOrdered By: Aries Chavez on 09-12-2023 Hemoglobin Auto test strip Ql (U) 2+ High Negative [facility] Urine leukocyte esterase det ection by automated test stripOrdered By: Aries Chavez on 09-12-2023 Leukocyte esterase Auto test strip Ql (U) 2+ High Negative [facility] Urine pH measurement by auto mated test stripOrdered By: Aries Chavez on 09-12-2023 pH (U) 6.0 [pH] Normal 5.0-9.0 [facility] Comment on above: Order Comment: Name Collection Type:: Voided Performed By: #### C UU, T4F, TSH3, ADDONUAPLUS, JER ####[facility] [id number]#### ACTH ####[facility] , Urine protein measurement by automated test strip (mass/volume)Ordered By: Aries Chavez on 09-12-2023 Protein (U) [Mass/Vol] 100 mg/dL High Negative [facility] Comment on above: Order Comment: Name Collection Type:: Voided Performed By: #### C UU, T4F, TSH3, ADDONUAPLUS, JER ####[facility] [id number] [place] [address] [facility]#### ACTH ####[facility] , Urobilinogen Auto test strip (U) [Mass/Vol]Ordered By: Aries Chavez on 09-12-2023 Urobilinogen (U) [Mass/Vol] Normal mg/dL Normal [facility] Whole blood hypersegmented n eutrophils detection by light microscopyOrdered By: Aries Chavez on 09-12-2023 Neutrophils.hypersegme nted LM Ql (Bld) Slight [facility] Yeast detection in urine sed iment by light microscopyOrdered By: Aries Chavez on 09-12-2023 Yeast LM Ql (Urine sed) None seen [HPF] None Seen [facility] Activated partial thrombopla stin time (aPTT) in platelet poor plasma by coagulation aOrdered By: Aries Chavez on 08-22-2023 aPTT Coag (PPP) [Time] 28.9 s 25.1-36.5 [facility] Comment on above: A hematocrit value g reater than 55% may lead to inaccurate results in coagulation testing. Patients having hematocrit values >55% require a special collection tube for coagulation studies. Please contact the laboratory at [phone] for redraw instructions. Coagulation Profileon 2022 aPTT Coag (Bld) [Time] 28.9 s Normal 25.1-36.5 [facility] Comment on above: Result Comment: A he matocrit value greater than 55% may lead to inaccurate results in coagulation testing. Patients having hematocrit values >55% require a special collection tube for coagulation studies. Please contact the laboratory at [phone] for redraw instructions.PERFORMED BY:[facility] [place], [place] [phone] MEDICAL DIRECTORSTEFANO HOLT M.D. Performed By: #### P P, PLT ####[place] [address] [place] [address] [facility] INR in Platelet poor plasma by Coagulation assayOrdered By: Aries Chavze on 08-22-2023 INR Coag (PPP) [Relative time] 1.1 {INR} Normal [facility] Comment on above: INR Therapeutic Rang e A) Pre- and Peroperative OAT started two weeks before surgery. NOT HIP SURGERY: 1.5 - 2.5 HIP SURGERY: 2 - 3B) Primary and secondary prevention of venous THROMBOSIS: 2 - 3C) Active venous thrombosis, pulmonary embolismand prevention of recurrent venous thrombosis: 2 - 3D) Prevention of arterial thromboembolismincluding patients with mechanical heart valves: 3 - 4.5 Result Comment: INR Therapeutic Range A) Pre- [...] valves: 3 - 4.5 Performed By: #### P P, PLT ####[place] [address] [place] [address] [facility] Onesimo 08-22-2023 L Normal [facility] Platelets [#/volume] in Bloo d by Automated countOrdered By: Aries Chavez on 08-22-2023 Platelets (Bld) [#/Vol] 368 10*3/uL Normal 150-450 [facility] Comment on above: Result Comment: PERF ORMED BY:[address] [place], [place] [phone] MEDICAL NAHID HOLT M.D. Performed By: #### P P, PLT ####[address] [address] [facility] Prothrombin time (PT)Ordered By: Aries Chavez on 08-22-2023 PT Coag (PPP) [Time] 13.1 s High 9.0-12.9 [facility] Comment on above: A hematocrit value g reater than 55% may lead to inaccurate results in coagulation testing. Patients having hematocrit values >55% require a special collection tube for coagulation studies. Please contact the laboratory at [phone] for redraw instructions. Result Comment: A he matocrit value greater than 55% may lead to inaccurate results in coagulation testing. Patients having hematocrit values >55% require a special collection tube for coagulation studies. Please contact the laboratory at [phone] for redraw instructions. Performed By: #### P P, PLT ####[address] US needle biopsyon 3 US needle biopsy Normal [facility] Alanine aminotransferase [En zymatic activity/volume] in Serum or PlasmaOrdered By: Aries Chvaez on 07-31-2023 ALT [Catalytic activity/Vol] 40 U/L Normal 7-52 [facility] Comment on above: Performed By: #### C MP, KRISTI, CBC, FE and TIBC ####[address] Albumin [Mass/volume] in Ser um or Plasma by Bromocresol green (BCG) dye binding methoOrdered By: Aries Chavez on 07-31-2023 Albumin BCG dye [Mass/Vol] 3.7 g/dL 3.5-5.7 [facility] Alkaline phosphatase [Enzyma tic activity/volume] in Serum or PlasmaOrdered By: Aries Chavez on 07-31-2023 ALP [Catalytic activity/Vol] 91 U/L Normal 34-104 [facility] Comment on above: Performed By: #### C MP, KRISTI, CBC, FE and TIBC ####[place] [id number] [facility] Aspartate aminotransferase [ Enzymatic activity/volume] in Serum or PlasmaOrdered By: Aries Chavez on 07-31-2023 AST [Catalytic activity/Vol] 12 U/L Low 13-39 [facility] Comment on above: Performed By: #### C MP, KRISTI, CBC, FE and TIBC ####[address] Automated basophil %Ordered By: Aries Chavez on 07-31-2023 Basophils/100 WBC (Bld) 2.0 % Normal . [facility] Comment on above: Performed By: #### C MP, KRISTI, CBC, FE and TIBC ####[address] Automated basophil countOrde red By: Aries Chavez on 07-31-2023 Basophils (Bld) [#/Vol] 0.2 10*3/uL Normal 0.0-0.2 [facility] Comment on above: Result Comment: PERF ORMED BY:[address] [place], [place] [id number] MEDICAL DIRECTORSTEFANO HOLT M.D. Performed By: #### C MP, KRISTI, CBC, FE and TIBC ####[address] Automated blood monocyte cou ntOrdered By: Aries Chavez on 07-31-2023 Monocytes (Bld) [#/Vol] 0.7 10*3/uL Normal 0.0-0.8 [facility] Comment on above: Performed By: #### C MP, KRISTI, CBC, FE and TIBC ####[address] Automated eosinophil %Ordere d By: Aries Chavez on 07-31-2023 Eosinophils/100 WBC (Bld) 1.8 % Normal . [facility] Comment on above: Performed By: #### C MP, KRISTI, CBC, FE and TIBC ####[address] Automated eosinophil countOr dered By: Aries Chavez on 07-31-2023 Eosinophils (Bld) [#/Vol] 0.1 10*3/uL Normal 0.0-0.45 [facility] Comment on above: Performed By: #### C MP, KRISTI, CBC, FE and TIBC ####[address] Automated erythrocytes count in urine sediment (number/area)Ordered By: Aries Chavez on 07-31-2023 RBC Auto (Urine sed) [#/Area] 5-9 [HPF] 0-4 [facility] Automated leukocytes count i n urine sediment (number/area)Ordered By: Aries Chavez on 07-31-2023 WBC Auto (Urine sed) [#/Area] None seen [HPF] 0-4 [facility] Automated monocyte %Ordered By: Aries Chavez on 07-31-2023 Monocytes/100 WBC (Bld) 8.2 % Normal . [facility] Comment on above: Performed By: #### C MP, KRISTI, CBC, FE and TIBC ####[address] Automated neutrophil %Ordere d By: Aries Chavez on 07-31-2023 Neutrophils/100 WBC (Bld) 65.7 % Normal . [facility] Comment on above: Performed By: #### C MP, KRISTI, CBC, FE and TIBC ####[address] Automated urine color determ inationOrdered By: Aries Chavez on 07-31-2023 Color (U) Elayne Critically abnormal Yellow [facility] Comment on above: Order Comment: Name Collection Type:: Voided Performed By: #### A DDONUAPLUS, CUU ####[address] Bilirubin Test strip Ql (U)O rdered By: Aries Chavez on 07-31-2023 Bilirubin Ql (U) See comment Negative [facility] Comment on above: Unable to obtain acc urate result due to color interference. Bilirubin.total [Mass/volume ] in Serum or PlasmaOrdered By: Aries Chavez on 07-31-2023 Bilirubin [Mass/Vol] 0.4 mg/dL Normal 0.3-1.0 [facility] Comment on above: Performed By: #### C MP, KRISTI, CBC, FE and TIBC ####[address] Calcium [Mass/volume] in Ser um or PlasmaOrdered By: Aries Chavez on 07-31-2023 Calcium [Mass/Vol] 9.6 mg/dL Normal 8.6-10.3 [facility] Comment on above: Performed By: #### C MP, KRISTI, CBC, FE and TIBC ####[address] Carbon dioxide, total [Moles /volume] in Serum or PlasmaOrdered By: Aries Chavez on 07-31-2023 CO2 [Moles/Vol] 24.3 mmol/L Normal 21.0-31.0 [facility] Comment on above: Performed By: #### C MP, KRISTI, CBC, FE and TIBC ####[address] Chloride [Moles/volume] in S leena or PlasmaOrdered By: Aries Chavez on 07-31-2023 Chloride [Moles/Vol] 94 mmol/L Low 98-107 [facility] Comment on above: Performed By: #### C MP, KRISTI, CBC, FE and TIBC ####[address] Complete Blood Count Auto Di ffon 07-31-2023 Mean Corpuscular HGB Conc 32.3 g/dL Normal 32.0-35.0 [facility] Comment on above: Performed By: #### C MP, KRISTI, CBC, FE and TIBC ####[address] NRBC% 0.1 /100{WBC} Normal 0-0.5 [facility] Comment on above: Performed By: #### C MP, KRISTI, CBC, FE and TIBC ####[address] Comprehensive Metabolic Pane onesimo 07-31-2023 Albumin [Mass/Vol] 3.7 g/dL Normal 3.5-5.7 [facility] Comment on above: Performed By: #### C MP, KRISTI, CBC, FE and TIBC ####[address] Creatinine Clr Calc Pharmacy 53.24 Normal [facility] Comment on above: Performed By: #### C MP, KRISTI, CBC, FE and TIBC ####[place] [id number] [facility] GFR/1.73 sq M.predicted MDRD (S/P/Bld) [Vol rate/Area] mL/min/{1.73_m2} Normal [facility] Comment on above: Performed By: #### C MP, KRISTI, CBC, FE and TIBC ####[address] Creatinine [Mass/volume] in Serum or PlasmaOrdered By: Aries Chavez on 07-31-2023 Creatinine [Mass/Vol] 0.91 mg/dL Normal 0.60-1.20 [facility] Comment on above: Performed By: #### C MP, KRISTI, CBC, FE and TIBC ####[address] Dipstick and Microscopicon 1 Appearance (U) Turbid Critically abnormal Clear [facility] Comment on above: Order Comment: Name Collection Type:: Voided Performed By: #### A DDONUAPLUS, CUU ####[place] [id number] [facility] Bacteria,Urine None Seen Normal None Seen [facility] Comment on above: Order Comment: Name Collection Type:: Voided Performed By: #### A DDONUAPLUS, CUU ####[place] [id number] [facility] Bilirubin,Urine Normal Negative [facility] Comment on above: Order Comment: Name Collection Type:: Voided Result Comment: Unab le to obtain accurate result due to color interference. Performed By: #### A DDONUAPLUS, CUU ####[place] [id number] [facility] Glucose Ql (U) Normal Normal [facility] Comment on above: Order Comment: Name Collection Type:: Voided Result Comment: Unab le to obtain accurate result due to color interference. Performed By: #### A DDONUAPLUS, CUU ####[address] [address] [facility] Hyaline Casts,Urine None Seen Normal 0-8 [facility] Comment on above: Order Comment: Name Collection Type:: Voided Result Comment: PERF ORMED BY:[address] [place], [place] [phone] MEDICAL DIRECTORSTEFANO HOLT M.D. Performed By: #### A DDONUAPLUS, CUU ####[address] [address] [facility] Ketones Ql (U) Normal Negative [facility] Comment on above: Order Comment: Name Collection Type:: Voided Result Comment: Unab le to obtain accurate result due to color interference. Performed By: #### A DDONUAPLUS, CUU ####[address] [address] [facility] Leukocyte esterase Test strip Ql (U) Normal Negative [facility] Comment on above: Order Comment: Name Collection Type:: Voided Result Comment: Unab le to obtain accurate result due to color interference. Performed By: #### A DDONUAPLUS, CUU ####[address] [address] [facility] Nitrite,Urine Normal Negative [facility] Comment on above: Order Comment: Name Collection Type:: Voided Result Comment: Unab le to obtain accurate result due to color interference. Performed By: #### A DDONUAPLUS, CUU ####[address] [address] [facility] Occult Blood,Urine Normal Negative [facility] Comment on above: Order Comment: Name Collection Type:: Voided Result Comment: Unab le to obtain accurate result due to color interference. Performed By: #### A DDONUAPLUS, CUU ####[address] [address] [facility] pH,Urine Normal 5.0-9.0 [facility] Comment on above: Order Comment: Name Collection Type:: Voided Result Comment: Unab le to obtain accurate result due to color interference. Performed By: #### A DDONUAPLUS, CUU ####[place] [id number] [facility] Protein,Urine Normal Negative [facility] Comment on above: Order Comment: Name Collection Type:: Voided Result Comment: Unab le to obtain accurate result due to color interference. Performed By: #### A DDONUAPLUS, CUU ####[place] [id number] [facility] RBC,Urine 5-9 High 0-4 [facility] Comment on above: Order Comment: Name Collection Type:: Voided Performed By: #### A DDONUAPLUS, CUU ####[address] Specificy [place],Urine 1.015 Normal 1.001-1.03 0 [facility] Comment on above: Order Comment: Name Collection Type:: Voided Performed By: #### A DDONUAPLUS, CUU ####[place] [id number] [facility] Squamous Epithelial Cell,Urine 0-1 Normal 0-2 [facility] Comment on above: Order Comment: Name Collection Type:: Voided Performed By: #### A DDONUAPLUS, CUU ####[place] [id number] [facility] Urobilinogen,Urine Normal Normal [facility] Comment on above: Order Comment: Name Collection Type:: Voided Result Comment: Unab le to obtain accurate result due to color interference. Performed By: #### A DDONUAPLUS, CUU ####[place] [id number] [facility] WBC,Urine None Seen Normal 0-4 [facility] Comment on above: Order Comment: Name Collection Type:: Voided Performed By: #### A DDONUAPLUS, CUU ####[place] [id number] [facility] Erythrocyte distribution wid th [Ratio] by Automated countOrdered By: Aries Chavez on 07-31-2023 Erythrocyte distribution width (RBC) [Ratio] 15.4 % High 11.9-15.3 [facility] Comment on above: Performed By: #### C MP, KRISTI, CBC, FE and TIBC ####[facility] [place] [address] [facility] Erythrocytes [#/volume] in B lood by Automated countOrdered By: Aries Chavez on 07-31-2023 RBC (Bld) [#/Vol] 3.18 10*6/uL Low 3.60-5.00 [facility] Comment on above: Performed By: #### C MP, KRISTI, CBC, FE and TIBC ####[address] [address] [facility] Ferritin [Mass/volume] in Se rum or PlasmaOrdered By: Aries Chavez on 07-31-2023 Ferritin [Mass/Vol] 342.0 ng/mL High 11.0-306.8 [facility] Comment on above: Result Comment: PERF ORMED BY:[address] [place]ou[place]abe[place], [place] [phone] MEDICAL DIRECTORSTEFANO HOLT M.D. Performed By: #### C MP, KRISTI, CBC, FE and TIBC ####[place] [id number] [facility] Glucose [Mass/volume] in Ser um or PlasmaOrdered By: Aries Chavez on 07-31-2023 Glucose [Mass/Vol] 105 mg/dL High 70-100 [facility] Comment on above: ADA recommended refe rence rangeRandom Glucose Reference Range is dependent on time and content of last meal. Glucose of more than 200 mg/dL in a nonstressed, ambulatory subject supports the diagnosis of Diabetes Mellitus. Result Comment: Jay om Glucose Reference Range is dependent on time and content of last meal. Glucose of more than 200 mg/dL in a nonstressed, ambulatory subject supports the diagnosis of Diabetes Mellitus. ADA recommended reference range Performed By: #### C MP, KRISTI, CBC, FE and TIBC ####[address] Hematocrit [Volume Fraction] of Blood by Automated countOrdered By: Aries Chavez on 07-31-2023 Hematocrit (Bld) [Volume fraction] 22.5 % Low 34.0-46.4 [facility] Comment on above: Performed By: #### C MP, KRISTI, CBC, FE and TIBC ####[address] Hemoglobin [Mass/volume] in BloodOrdered By: Aries Chavez on 07-31-2023 Hemoglobin (Bld) [Mass/Vol] 7.3 g/dL Low 11.8-15.4 [facility] Comment on above: Performed By: #### C MP, KRISTI, CBC, FE and TIBC ####[address] Iron [Mass/volume] in Serum or PlasmaOrdered By: Aries Chavez on 07-31-2023 Iron [Mass/Vol] 24 ug/dL Low 50-212 [facility] Comment on above: Performed By: #### C MP, KRISTI, CBC, FE and TIBC ####[address] Iron and TIBC Profileon 10-3 0-2022 % Iron Saturation 7.9 % Low 20-50 [facility] Comment on above: Performed By: #### C MP, KRISTI, CBC, FE and TIBC ####[address] Total Iron Binding Capacity 304 ug/dL Normal 255-450 [facility] Comment on above: Performed By: #### C MP, KRISTI, CBC, FE and TIBC ####[address] Iron binding capacity [Mass/ volume] in Serum or PlasmaOrdered By: Aries Chavez on 07-31-2023 Iron binding capacity [Mass/Vol] 304 ug/dL 255-450 [facility] Iron saturation [Mass Fracti on] in Serum or PlasmaOrdered By: Aries Chavez on 07-31-2023 Iron saturation [Mass fraction] 7.9 % 20-50 [facility] Ketones Auto test strip (U) [Mass/Vol]Ordered By: Aries Chavez on 07-31-2023 Ketones (U) [Mass/Vol] See comment Negative [facility] Comment on above: Unable to obtain acc urate result due to color interference. Laboratory - UrinalysisOrder ed By: Aries Chavez on 07-31-2023 Hyaline casts LM Ql (Urine sed) None seen [LPF] 0-8 [facility] Leukocytes [#/volume] correc gabriel for nucleated erythrocytes in Blood by Automated counOrdered By: Aries Chavez on 07-31-2023 WBC corrected for nucl RBC Auto (Bld) [#/Vol] 8.2 10*3/uL 3.8-11.6 [facility] Leukocytes [#/volume] in Blo od by Automated countOrdered By: Aries Chavez on 07-31-2023 WBC (Bld) [#/Vol] 8.2 10*3/uL Normal 3.8-11.6 [facility] Comment on above: Performed By: #### C MP, KRISTI, CBC, FE and TIBC ####[address] Lymphocytes [#/volume] in Bl ood by Automated countOrdered By: Aries Chavez on 07-31-2023 Lymphocytes (Bld) [#/Vol] 1.8 10*3/uL Normal 1.00-4.8 [facility] Comment on above: Performed By: #### C MP, KRISTI, CBC, FE and TIBC ####[place] [id number] [facility] Lymphocytes/100 leukocytes i n Blood by Automated countOrdered By: Aries Chavez on 07-31-2023 Lymphocytes/100 WBC (Bld) 22.3 % Normal . [facility] Comment on above: Performed By: #### C MP, KRISTI, CBC, FE and TIBC ####[place] [id number] [place] MCH [Entitic mass] by Automa gabriel countOrdered By: Aries Chavez on 07-31-2023 MCH (RBC) [Entitic mass] 22.8 pg Low 24.7-34.3 [facility] Comment on above: Performed By: #### C MP, KRISTI, CBC, FE and TIBC ####[address] MCHC Auto (RBC) [Mass/Vol]Or dered By: Aries Chavez on 07-31-2023 MCHC (RBC) [Mass/Vol] 32.3 g/dL 32.0-35.0 [facility] MCV [Entitic volume] by Auto mated countOrdered By: Aries Chavez on 07-31-2023 MCV (RBC) [Entitic vol] 70.8 fL Low 80-100 [facility] Comment on above: Performed By: #### C MP, KRISTI, CBC, FE and TIBC ####[address] Neutrophils [#/volume] in Bl ood by Automated countOrdered By: Aries Chavez on 07-31-2023 Neutrophils (Bld) [#/Vol] 5.4 10*3/uL Normal 1.8-7.7 [facility] Comment on above: Performed By: #### C MP, KRISTI, CBC, FE and TIBC ####[address] Nitrite Test strip Ql (U)Ord ered By: Aries Chavez on 07-31-2023 Nitrite Ql (U) See comment Negative [facility] Comment on above: Unable to obtain acc urate result due to color interference. No Panel InformationOrdered By: Aries Chavez on 07-31-2023 Estimated GFR (CKD-EPI) > 60.0 mL/Min [facility] Creatinine Clearance (Chem 53.24 [facility] Nucleated erythrocytes [Pres ence] in Blood by Automated countOrdered By: Aries Chavez on 07-31-2023 Nucleated RBC Auto Ql (Bld) 0.1 /100{WBC} 0-0.5 [facility] Platelet mean volume [Entiti c volume] in Blood by Automated countOrdered By: Aries Chavez on 07-31-2023 Platelet mean volume (Bld) [Entitic vol] 7.7 fL Normal 6.3-10.7 [facility] Comment on above: Performed By: #### C MP, KRISTI, CBC, FE and TIBC ####[address] Platelets [#/volume] in Bloo d by Automated countOrdered By: Aries Chavez on 07-31-2023 Platelets (Bld) [#/Vol] 487 10*3/uL High 150-450 [facility] Comment on above: Performed By: #### C MP, KRISTI, CBC, FE and TIBC ####[address] Potassium [Moles/volume] in Serum or PlasmaOrdered By: Aries Chavez on 07-31-2023 Potassium [Moles/Vol] 5.3 mmol/L High 3.5-5.1 [facility] Comment on above: Performed By: #### C MP, KRISTI, CBC, FE and TIBC ####[address] Protein Auto test strip (U) [Mass/Vol]Ordered By: Aries Chavez on 07-31-2023 Protein (U) [Mass/Vol] See comment Negative [facility] Comment on above: Unable to obtain acc urate result due to color interference. Protein [Mass/volume] in Ser um or PlasmaOrdered By: Aries Chavez on 07-31-2023 Protein [Mass/Vol] 8.3 g/dL Normal 6.4-8.9 [facility] Comment on above: Performed By: #### C MP, KRISTI, CBC, FE and TIBC ####[address] Serum globulin measurement b y calculation (mass/volume)Ordered By: Aries Chavez on 07-31-2023 Globulin (S) [Mass/Vol] 4.6 g/dL [facility] Comment on above: Performed By: #### C MP, KRISTI, CBC, FE and TIBC ####[address] Serum or plasma albumin/glob ulin mass ratioOrdered By: Aries Chavez on 07-31-2023 Albumin/Globulin [Mass ratio] 0.8 {ratio} [facility] Comment on above: Performed By: #### C MP, KRISTI, CBC, FE and TIBC ####[address] Serum or plasma anion gap de terminationOrdered By: Aries Chavez on 07-31-2023 Anion gap [Moles/Vol] 14.0 mmol/L Normal 6.0-15.0 [facility] Comment on above: Performed By: #### C MP, KRISTI, CBC, FE and TIBC ####[address] Sodium [Moles/volume] in Ser um or PlasmaOrdered By: Aries Chavez on 07-31-2023 Sodium [Moles/Vol] 127 mmol/L Low 136-145 [facility] Comment on above: Performed By: #### C MP, KRISTI, CBC, FE and TIBC ####[address] Specific gravity Auto test s trip (U) [Rel density]Ordered By: Aries Chavez on 07-31-2023 Specific gravity (U) [Rel density] 1.015 1.001-1.03 0 [facility] Squamous epithelial cells de tection in urine sediment by light microscopyOrdered By: Aries Chavez on 07-31-2023 Epithelial cells.squamous LM Ql (Urine sed) 0-1 [HPF] 0-2 [facility] Transferrin [Mass/volume] in Serum or PlasmaOrdered By: Aries Chavez on 07-31-2023 Transferrin [Mass/Vol] 217 mg/dL Normal 203-362 [facility] Comment on above: Performed By: #### C MP, KRISTI, CBC, FE and TIBC ####[facility] [id number] Urea nitrogen [Mass/volume] in Serum or PlasmaOrdered By: Aries Chavez on 07-31-2023 Urea nitrogen [Mass/Vol] 15 mg/dL Normal 7-25 [facility] Comment on above: Performed By: #### C MP, KRISTI, CBC, FE and TIBC ####[place] [id number] [place] [id number] [facility] Urine Cultureon 07-31-2023 Bacteria identified Cx Nom (U) Normal [facility] Comment on above: Performed By: #### A DDONUAPLUS, CUU ####[address] Urine bacteria detection by automated methodOrdered By: Aries Chavez on 07-31-2023 Bacteria Auto Ql (U) None seen None Seen [facility] Urine clarity by refractomet ry automatedOrdered By: Aries Chavez on 07-31-2023 Clarity Refractometry automated (U) Turbid Clear [facility] Urine culture routineOrdered By: Aries Chavez on 07-31-2023 Bacteria identified Cx Nom (U) 2 Days [facility] Bacteria identified Cx Nom (U) 2 Days [facility] Urine glucose measurement by automated test strip (mass/volume)Ordered By: Aries Chavez on 07-31-2023 Glucose Auto test strip (U) [Mass/Vol] See comment Normal [facility] Comment on above: Unable to obtain acc urate result due to color interference. Urine hemoglobin detection b y automated test stripOrdered By: Aries Chavez on 07-31-2023 Hemoglobin Auto test strip Ql (U) See comment Negative [facility] Comment on above: Unable to obtain acc urate result due to color interference. Urine leukocyte esterase det ection by automated test stripOrdered By: Aries Chavez on 07-31-2023 Leukocyte esterase Auto test strip Ql (U) See comment Negative [facility] Comment on above: Unable to obtain acc urate result due to color interference. Urobilinogen Auto test strip (U) [Mass/Vol]Ordered By: Aries Chavez on 07-31-2023 Urobilinogen (U) [Mass/Vol] See comment Normal [facility] Comment on above: Unable to obtain acc urate result due to color interference. pH Auto test strip (U)Ordere d By: Aries Chavez on 07-31-2023 pH (U) See comment 5.0-9.0 [facility] Comment on above: Unable to obtain acc urate result due to color interference. Office Visiton 07-26-2023 Follow-up visit [id number] Perla Ibarra 1955 Date Provider Department Center 07/26/2023 Luis Eduardo4-MADDIE ANN [facility] [place] Family History Problem Relation Age of Onset Tuberculosis Mother Heart attack Brother Heart failure Maternal Grandmother Heart attack Maternal Grandfather Family Status - Relation Status Age at Mother Brother Maternal Grandmother Maternal Grandfather Level of Service:74081 [place] OFFICE/OUTPATIENT ESTABLISHED MOD MDM 30-39 MIN Reason for Visit and Comments: renal mass [Other] - Pt c/o pelvic pain and gross hematuria Normal [facility] Office Visiton 05-18-2023 Follow-up visit [id number] Perla Ibarra 1955 Date Provider Department Center 05/18/2023 [id number] DELGADO [facility] Family History Problem Relation Age of Onset Tuberculosis Mother Heart attack Brother Heart failure Maternal Grandmother Heart attack Maternal Grandfather Family Status - Relation Status Age at Mother Brother Maternal Grandmother Maternal Grandfather Level of Service:84945 [place] OFFICE/OUTPATIENT ESTABLISHED MOD MDM 30-39 MIN Reason for Visit and Comments: Follow-up [895907] - 1 month follow up - go over labs, echo and BP Normal [facility] PROF CHEM 8 (BAS METB)on Anion gap [Moles/Vol] 13.5 mmol/L Normal [facility] Comment on above: Performed By: #### N A #### [facility] [address] [place] [address] [address] Allen Smith Calcium [Mass/Vol] 9.6 mg/dL Normal 8.5-10.1 [facility] Comment on above: Performed By: #### N A #### [facility] [address] [place] [address] [address] Allen Smith Chloride [Moles/Vol] 95 mmol/L Critically low 98-107 [facility] Comment on above: Performed By: #### N A #### [facility] [address] [place] [address] [address] Allen Smith CO2 [Moles/Vol] 27.1 mmol/L Normal 21.0-32.0 [facility] Comment on above: Performed By: #### N A #### [facility] [address] [place] [address] [address] Allen Smith Creatinine [Mass/Vol] 0.93 mg/dL Normal 0.55-1.02 [facility] Comment on above: Performed By: #### N A #### [facility] [address] [place] [address] [address] Allen Smith EGFR-AF DJIBOUTIAN >60 Normal >=60 [facility] Comment on above: Performed By: #### N A #### [facility] [address] [place] [address] [address] Allen Smith EGFR-NON AF DJIBOUTIAN 60 mL/min/1.73m2 Normal >=60 [facility] Comment on above: Performed By: #### N A #### [facility] [address] [place] [address] [address] Allen Smith Glucose [Mass/Vol] 123 mg/dL Critically high 74-106 [facility] Comment on above: Performed By: #### N A #### [facility] [address] [place] [address] [address] Allen Smith Potassium [Moles/Vol] 4.6 mmol/L Normal 3.5-5.1 [facility] Comment on above: Performed By: #### N A #### [facility] [address] [place] [address] [address] Allen Smith Sodium [Moles/Vol] 131 mmol/L Critically low 136-145 [facility] Comment on above: Performed By: #### N A #### [facility] [address] [place] [address] Dr. Allen Smith Urea nitrogen [Mass/Vol] 8.0 mg/dL Normal 7.0-18.0 [facility] Comment on above: Performed By: #### N A #### [facility] [address] [place] [address] Dr. Allen Smith Urea nitrogen/Creatinine [Mass ratio] 8.6 mg/mg Normal [facility] Comment on above: Performed By: #### N A #### [facility] [address] [place] [address] Dr. Allen Smith BNPon 02-07-2023 Natriuretic peptide B (Bld) [Mass/Vol] 1572.0 pg/mL Critically high <=900.0 [facility] Comment on above: Performed By: #### N A #### [facility] [address] [place] [address] Dr. Allen Smith CBC AUTO DIFFon 02-07-2023 BASO # 0.1 103/ul Normal 0.0-0.1 [facility] Comment on above: Performed By: #### C BC #### [facility] [address] [place] [address] Dr. Allen Smith Basophils/100 WBC (Bld) 0.7 % Normal 0.2-2.0 [facility] Comment on above: Performed By: #### C BC #### [facility] [address] [place] [address] Dr. Allen Smith EO # 0.2 103/ul Normal 0.0-0.7 [facility] Comment on above: Performed By: #### C BC #### [facility] [address] [place] [address] Dr. Allen Smith Eosinophils/100 WBC (Bld) 2.8 % Normal 0.9-7.0 [facility] Comment on above: Performed By: #### C BC #### [facility] [address] [place] [address] Dr. Allen Smith Erythrocyte distribution width (RBC) [Ratio] 15.2 % Critically high 11.0-15.0 [facility] Comment on above: Performed By: #### C BC #### [facility] [address] [place] [address] Dr. Allen Smith Hematocrit (Bld) [Volume fraction] 29.9 % Critically low 36.0-48.0 [facility] Comment on above: Performed By: #### C BC #### [facility] [address] [place] [address] Dr. Allen Smith Hemoglobin (Bld) [Mass/Vol] 9.4 g/dL Critically low 12.0-16.0 [facility] Comment on above: Performed By: #### C BC #### [facility] [address] [place] [address] Dr. Allen Smith IG # 0.03 10e3/ul Normal 0.00-0.03 [facility] Comment on above: Performed By: #### C BC #### [facility] [address] [place] [address] Dr. Allen Smith IG % 0.4 % Normal 0.0-0.5 [facility] Comment on above: Performed By: #### C BC #### [facility] [address] [place] [address] Dr. Allen Smith LYMPH # 1.5 103/ul Normal 1.2-3.8 [facility] Comment on above: Performed By: #### C BC #### [facility] [address] [place] [address] Dr. Allen Smith Lymphocytes/100 WBC (Bld) 18.0 % Critically low 20.5-60.0 [facility] Comment on above: Performed By: #### C BC #### [facility] [address] [place] [address] Dr. Allen Smith MANUAL DIFF REQ NO Normal [facility] Comment on above: Performed By: #### C BC #### [facility] [address] [place] [address] Dr. Allen Smith MCH (RBC) [Entitic mass] 24.7 pg Critically low 26.7-34.0 [facility] Comment on above: Performed By: #### C BC #### [facility] [address] [address] [address] Allen Smith MCHC (RBC) [Mass/Vol] 31.4 g/dL Normal 29.9-35.2 [facility] Comment on above: Performed By: #### C BC #### [facility] [address] [place] [address] Dr. Allen Smith MCV (RBC) [Entitic vol] 78.7 fL Critically low 81.0-99.0 [facility] Comment on above: Performed By: #### C BC #### [facility] [address] [place] [address] Dr. Allen Smith MONO # 0.8 103/ul Normal 0.3-0.8 [facility] Comment on above: Performed By: #### C BC #### [facility] [address] [place] [address] Dr. Allen Smith Monocytes/100 WBC (Bld) 9.5 % Normal 1.7-12.0 [facility] Comment on above: Performed By: #### C BC #### [facility] [address] [place] [address] Dr. Allen Smith NEUT # 5.7 103/ul Normal 1.4-6.5 [facility] Comment on above: Performed By: #### C BC #### [facility] [address] [place] [address] Dr. Allen Smith Neutrophils/100 WBC (Bld) 68.6 % Normal 43.0-75.0 [facility] Comment on above: Performed By: #### C BC #### [facility] [address] [place] [address] Dr. Allen Smith Platelet mean volume (Bld) [Entitic vol] 10.2 fL Normal 9.5-13.5 [facility] Comment on above: Performed By: #### C BC #### [facility] [address] [place] [address] Dr. Allen Smith PLT 324 103/ul Normal 150-450 [facility] Comment on above: Performed By: #### C BC #### [facility] [address] [place] [address] Dr. Allen Smith RBC 3.80 106/ul Critically low 4.20-5.40 [facility] Comment on above: Performed By: #### C BC #### [facility] [address] [place] [address] Dr. Allen Smith WBC 8.3 103/ul Normal 4.0-11.0 [facility] Comment on above: Performed By: #### C BC #### [facility] [address] [place] [address] Dr. Allen Smith PROF CHEM 8 (BAS METB)on Anion gap [Moles/Vol] 7.5 mmol/L Normal [facility] Comment on above: Performed By: #### N A #### [facility] [address] [place] [address] Dr. Allen Smith Calcium [Mass/Vol] 9.1 mg/dL Normal 8.5-10.1 [facility] Comment on above: Performed By: #### N A #### [facility] [address] [place] [address] Dr. Allen Smith Chloride [Moles/Vol] 97 mmol/L Critically low 98-107 [facility] Comment on above: Performed By: #### N A #### [facility] [address] [place] [address] Dr. Allen Smith CO2 [Moles/Vol] 30.9 mmol/L Normal 21.0-32.0 [facility] Comment on above: Performed By: #### N A #### [facility] [address] [place] [address] Dr. Allen Smith Creatinine [Mass/Vol] 0.84 mg/dL Normal 0.55-1.02 [facility] Comment on above: Performed By: #### N A #### [facility] [address] [place] [address] Dr. Allen Smith EGFR-AF DJIBOUTIAN >60 Normal >=60 [facility] Comment on above: Performed By: #### N A #### [facility] [address] [address] [address] Allen Smith EGFR-NON AF DJIBOUTIAN >60 Normal >=60 [facility] Comment on above: Performed By: #### N A #### [facility] [address] [address] [address] Allen Smtih Glucose [Mass/Vol] 111 mg/dL Critically high 74-106 T [facility] Comment on above: Performed By: #### N A #### [facility] [address] [address] [address] Allen Smith Potassium [Moles/Vol] 4.4 mmol/L Normal 3.5-5.1 [facility] Comment on above: Performed By: #### N A #### [facility] [address] [place] [address] Dr. Allen Smith Sodium [Moles/Vol] 131 mmol/L Critically low 136-145 Th e [facility] Comment on above: Performed By: #### N A #### [facility] [address] [place] [address] Dr. Allen Smith Urea nitrogen [Mass/Vol] 8.0 mg/dL Normal 7.0-18.0 [facility] Comment on above: Performed By: #### N A #### [facility] [address] [place] [address] Dr. Allen Smith Urea nitrogen/Creatinine [Mass ratio] 9.5 mg/mg Normal [facility] Comment on above: Performed By: #### N A #### [facility] [address] [address] [address] Allen Smith BLOOD GASES BTYon 01-25-2023 02 MODE VENTILATOR Normal [facility] Comment on above: Performed By: #### A BG #### [facility] [address] [place] [address] Dr. Allen Smith ALLENS TEST Positive Normal [facility] Comment on above: Performed By: #### A BG #### [facility] [address] [place] [address] Dr. Allen Smith Base excess Calc (Bld) [Moles/Vol] -2.5000 mmol/L Critically low -2.0-2.0 [facility] Comment on above: Performed By: #### A BG #### [facility] [address] [place] [address] Dr. Allen Smith BIPAP PRESSURE [facility] Comment on above: Performed By: #### A BG #### [facility] [address] [place] [address] Dr. Allen Smith CPAP [facility] Comment on above: Performed By: #### A BG #### [facility] [address] [place] [address] Dr. Allen Smith FIO2 40.00 % [facility] Comment on above: Performed By: #### A BG #### [facility] [address] [place] [address] Dr. Allen Smith HCO3 (Bld) [Moles/Vol] 24.1 mmol/L Normal 22.0-26.0 [facility] Comment on above: Performed By: #### A BG #### [facility] [address] [place] [address] Dr. Allen Smith LPM [facility] Comment on above: Performed By: #### A BG #### [facility] [address] [place] [address] Dr. Allen Smith MINUTE VOLUME Normal [facility] Comment on above: Performed By: #### A BG #### [facility] [address] [place] [address] Dr. Allen Smith Oxygen (Bld) [Partial pressure] 85.1 mm[Hg] Normal 80.0-100.0 [facility] Comment on above: Performed By: #### A BG #### [facility] [address] [place] [address] Dr. Allen Smith Oxygen saturation in Blood 96.2 % Normal 95.0-100.0 [facility] Comment on above: Performed By: #### A BG #### [facility] [address] [place] [address] Dr. Allen Smith PCO2 50.1 mmHg Critically high 35.0-45.0 [facility] Comment on above: Performed By: #### A BG #### [facility] [address] [address] [address] Allen Smith PEEP 5 [facility] Comment on above: Performed By: #### A BG #### [facility] [address] [place] [address] Dr. Allen Smith pH (Bld) 7.290 [pH] Critically low 7.350-7.45 0 [facility] Comment on above: Performed By: #### A BG #### [facility] [address] [place] [address] Dr. Allen Smith PIP [facility] Comment on above: Performed By: #### A BG #### [facility] [address] [place] [address] Dr. Allen Smith PS [facility] Comment on above: Performed By: #### A BG #### [facility] [address] [place] [address] Dr. Allen Smith PUNCTURE SITE RR [facility] Comment on above: Performed By: #### A BG #### [facility] [address] [place] [address] Dr. Allen Smith RATE 12 bpm [facility] Comment on above: Performed By: #### A BG #### [facility] [address] [place] [address] Dr. Allen Smith VENT MODE ac [facility] Comment on above: Performed By: #### A BG #### [facility] [address] [place] [address] Dr. Allen Smith VT 450 ML [facility] Comment on above: Result Comment: Prev iously reported as: 400 On 01/25/2023 17:03 By GC1 Performed By: #### A BG #### [facility] [address] [place] [address] Dr. Allen Smith 02 MODE NASAL CANNULA [facility] Comment on above: Performed By: #### T SH #### [facility] [address] [place] [address] Dr. Allen Smith ALLENS TEST Positive [facility] Comment on above: Performed By: #### T SH #### [facility] [address] [address] [address] Allen Smith Base excess Calc (Bld) [Moles/Vol] -2.9000 mmol/L Critically low -2.0-2.0 [facility] Comment on above: Performed By: #### T SH #### [facility] [address] [place] [address] Dr. Allen Smith BIPAP PRESSURE [facility] Comment on above: Performed By: #### T SH #### [facility] [address] [place] [address] Dr. Allen Smith CPAP [facility] Comment on above: Performed By: #### T SH #### [facility] [address] [place] [address] Dr. Allen Smith FIO2 [facility] Comment on above: Performed By: #### T SH #### [facility] [address] [place] [address] Dr. Allen Smith HCO3 (Bld) [Moles/Vol] 24.2 mmol/L Normal 22.0-26.0 [facility] Comment on above: Performed By: #### T SH #### [facility] [address] [place] [address] Dr. Allen Smith LPM 2 [facility] Comment on above: Performed By: #### T SH #### [facility] [address] [place] [address] Dr. Allen Smith MINUTE VOLUME [facility] Comment on above: Performed By: #### T SH #### [facility] [address] [place] [address] Dr. Allen Smith Oxygen (Bld) [Partial pressure] 70.6 mm[Hg] Critically low 80.0-100.0 [facility] Comment on above: Performed By: #### T SH #### [facility] [address] [place] [address] Dr. Allen Smith Oxygen saturation in Blood 91.5 % Critically low 95.0-100.0 [facility] Comment on above: Performed By: #### T SH #### [facility] [address] [address] [address] Allen Smith PCO2 54.7 mmHg Critically high 35.0-45.0 [facility] Comment on above: Performed By: #### T SH #### [facility] [address] [place] [address] Dr. Allen Smith PEEP [facility] Comment on above: Performed By: #### T SH #### [facility] [address] [place] [address] Dr. Allen Smith pH (Bld) 7.255 [pH] Critically low 7.350-7.45 0 [facility] Comment on above: Performed By: #### T SH #### [facility] [address] [place] [address] Dr. Allen Smith [facility] Comment on above: Performed By: #### T SH #### [facility] [address] [place] [address] Dr. Allen Smith [facility] Comment on above: Performed By: #### T SH #### [facility] [address] [place] [address] Dr. Allen Smith PUNCTURE SITE RR [facility] Comment on above: Performed By: #### T SH #### [facility] [address] [place] [address] Dr. Allen Smith RATE [facility] Comment on above: Performed By: #### T SH #### [facility] [address] [place] [address] Dr. Allen Smith VENT MODE [facility] Comment on above: Performed By: #### T SH #### [facility] [address] [place] [address] Dr. Allen Smith [facility] Comment on above: Performed By: #### T SH #### [facility] [address] [place] [address] Dr. Allen Smith BNPon 01-25-2023 Natriuretic peptide B (Bld) [Mass/Vol] 47428.0 pg/mL Critically high <=900.0 [facility] Comment on above: Performed By: #### B LIFE SKILLS COORDINATOR, CMP #### [facility] [address] [place] [address] Dr. Allen Smith CARDIAC LI 3-6on 3 CK [Catalytic activity/Vol] 346 U/L Critically high 26-192 [facility] Comment on above: Performed By: #### T SH #### [facility] [address] [place] [address] Dr. Allen Smith CK.MB [Mass/Vol] 15.70 ng/mL Critically high <=3.60 Th [facility] Comment on above: Performed By: #### T SH #### [facility] [address] [place] [address] Dr. Allen Smith HSTROP 1206.7 pg/mL Critically high 4.0-51.3 [facility] Comment on above: Result Comment: CUT- OFF POINTS HAVE BEEN ESTABLISHED BASED ON THE FOURTH UNIVERSAL DEFINITIONS OF MYOCARDIAL INFARCTION. THE UPPER REFERENCE LIMIT (URL) OF TROPONIN, DEFINED THE 99TH PERCENTILE OF cTnI DISTRIBUTION IN A REFERENCE POPULATION, HAS BEEN CONFIRMED THE DECISION THRESHOLD FOR CO DIAGNOSIS. Performed By: #### T SH #### [facility] [address] [place] [address] Dr. Allen Smith CBC AUTO DIFFon 01-25-2023 BASO # 0.0 103/ul Normal 0.0-0.1 [facility] Comment on above: Performed By: #### T SH #### [facility] [address] [place] [address] Dr. Allen Smith Basophils/100 WBC (Bld) 0.1 % Critically low 0.2-2.0 [facility] Comment on above: Performed By: #### T SH #### [facility] [address] [place] [address] Dr. Allen Smith EO # 0.0 103/ul Normal 0.0-0.7 [facility] Comment on above: Performed By: #### T SH #### [facility] [address] [place] [address] Dr. Allen Smith Eosinophils/100 WBC (Bld) 0.0 % Critically low 0.9-7.0 [facility] Comment on above: Performed By: #### T SH #### [facility] [address] [place] [address] Dr. Allen Smith Erythrocyte distribution width (RBC) [Ratio] 13.4 % Normal 11.0-15.0 [facility] Comment on above: Performed By: #### T SH #### [facility] [address] [place] [address] Dr. Allen Smith Hematocrit (Bld) [Volume fraction] 30.2 % Critically low 36.0-48.0 [facility] Comment on above: Performed By: #### T SH #### [facility] [address] [place] [address] Dr. Allen Smith Hemoglobin (Bld) [Mass/Vol] 9.9 g/dL Critically low 12.0-16.0 [facility] Comment on above: Performed By: #### T SH #### [facility] [address] [place] [address] Dr. Allen Smith IG # 0.05 10e3/ul Critically high 0.00-0.03 [facility] Comment on above: Performed By: #### T SH #### [facility] [address] [place] [address] Dr. Allen Smith IG % 0.4 % Normal 0.0-0.5 [facility] Comment on above: Performed By: #### T SH #### [facility] [address] [place] [address] Dr. Allen Smith LYMPH # 0.3 103/ul Critically low 1.2-3.8 [facility] Comment on above: Performed By: #### T SH #### [facility] [address] [place] [address] Dr. Allen Smith Lymphocytes/100 WBC (Bld) 2.5 % Critically low 20.5-60.0 [facility] Comment on above: Performed By: #### T SH #### [facility] [address] [place] [address] Dr. Allen Smith MANUAL DIFF REQ NO Normal [facility] Comment on above: Performed By: #### T SH #### [facility] [address] [place] [address] Dr. Allen Smith MCH (RBC) [Entitic mass] 24.9 pg Critically low 26.7-34.0 [facility] Comment on above: Performed By: #### T SH #### [facility] [address] [place] [address] Dr. Allen Smith MCHC (RBC) [Mass/Vol] 32.8 g/dL Normal 29.9-35.2 [facility] Comment on above: Performed By: #### T SH #### [facility] [address] [place] [address] Dr. Allen Smith MCV (RBC) [Entitic vol] 76.1 fL Critically low 81.0-99.0 [facility] Comment on above: Performed By: #### T SH #### [facility] [address] [place] [address] Dr. Allen Smith MONO # 0.5 103/ul Normal 0.3-0.8 [facility] Comment on above: Performed By: #### T SH #### [facility] [address] [place] [address] Dr. Allen Smith Monocytes/100 WBC (Bld) 3.7 % Normal 1.7-12.0 [facility] Comment on above: Performed By: #### T SH #### [facility] [address] [place] [address] Dr. Allen Smith NEUT # 12.2 103/ul Critically high 1.4-6.5 [facility] Comment on above: Performed By: #### T SH #### [facility] [address] [place] [address] Dr. Allen Smith Neutrophils/100 WBC (Bld) 93.3 % Critically high 43.0-75.0 [facility] Comment on above: Performed By: #### T SH #### [facility] [address] [place] [address] Dr. Allen Smith Platelet mean volume (Bld) [Entitic vol] 10.3 fL Normal 9.5-13.5 [facility] Comment on above: Performed By: #### T SH #### [facility] [address] [place] [address] Dr. Allen Smith PLT 263 103/ul Normal 150-450 [facility] Comment on above: Performed By: #### T SH #### [facility] [address] [place] [address] Dr. Allen Smith RBC 3.97 106/ul Critically low 4.20-5.40 [facility] Comment on above: Performed By: #### T SH #### [facility] [address] [place] [address] Dr. Allen Smith WBC 13.0 103/ul Critically high 4.0-11.0 [facility] Comment on above: Performed By: #### T SH #### [facility] [address] [place] [address] Dr. Allen Smith BASO # 0.0 103/ul Normal 0.0-0.1 [facility] Comment on above: Performed By: #### N A #### [facility] [address] [place] [address] Dr. Allen Smith Basophils/100 WBC (Bld) 0.1 % Critically low 0.2-2.0 [facility] Comment on above: Performed By: #### N A #### [facility] [address] [place] [address] Dr. Allen Smith EO # 0.0 103/ul Normal 0.0-0.7 [facility] Comment on above: Performed By: #### N A #### [facility] [address] [place] [address] Dr. Allen Smith Eosinophils/100 WBC (Bld) 0.0 % Critically low 0.9-7.0 [facility] Comment on above: Performed By: #### N A #### [facility] [address] [place] [address] Dr. Allen Smith Erythrocyte distribution width (RBC) [Ratio] 13.4 % Normal 11.0-15.0 [facility] Comment on above: Performed By: #### N A #### [facility] [address] [place] [address] Dr. Allen Smith Hematocrit (Bld) [Volume fraction] 29.5 % Critically low 36.0-48.0 [facility] Comment on above: Performed By: #### N A #### [facility] [address] [place] [address] Dr. Allen Smith Hemoglobin (Bld) [Mass/Vol] 9.6 g/dL Critically low 12.0-16.0 [facility] Comment on above: Performed By: #### N A #### [facility] [address] [place] [address] Dr. Allen Smith IG # 0.04 10e3/ul Critically high 0.00-0.03 [facility] Comment on above: Performed By: #### N A #### [facility] [address] [place] [address] Dr. Allen Smith IG % 0.4 % Normal 0.0-0.5 [facility] Comment on above: Performed By: #### N A #### [facility] [address] [place] [address] Dr. Allen Smith LYMPH # 0.4 103/ul Critically low 1.2-3.8 [facility] Comment on above: Performed By: #### N A #### [facility] [address] [place] [address] Dr. Allen Smith Lymphocytes/100 WBC (Bld) 3.5 % Critically low 20.5-60.0 [facility] Comment on above: Performed By: #### N A #### [facility] [address] [place] [address] Dr. Allen Smith MANUAL DIFF REQ NO Normal [facility] Comment on above: Performed By: #### N A #### [facility] [address] [place] [address] Dr. Allen Smith MCH (RBC) [Entitic mass] 24.4 pg Critically low 26.7-34.0 [facility] Comment on above: Performed By: #### N A #### [facility] [address] [address] [address] Allen Smith MCHC (RBC) [Mass/Vol] 32.5 g/dL Normal 29.9-35.2 [facility] Comment on above: Performed By: #### N A #### [facility] [address] [address] [address] Allen Smith MCV (RBC) [Entitic vol] 74.9 fL Critically low 81.0-99.0 [facility] Comment on above: Performed By: #### N A #### [facility] [address] [place] [address] Dr. Allen Smith MONO # 0.4 103/ul Normal 0.3-0.8 [facility] Comment on above: Performed By: #### N A #### [facility] [address] [place] [address] Dr. Allen Smith Monocytes/100 WBC (Bld) 3.5 % Normal 1.7-12.0 [facility] Comment on above: Performed By: #### N A #### [facility] [address] [place] [address] Dr. Allen Smith NEUT # 10.2 103/ul Critically high 1.4-6.5 [facility] Comment on above: Performed By: #### N A #### [facility] [address] [place] [address] Dr. Allen Smith Neutrophils/100 WBC (Bld) 92.5 % Critically high 43.0-75.0 [facility] Comment on above: Performed By: #### N A #### [facility] [address] [place] [address] Dr. Allen Smith Platelet mean volume (Bld) [Entitic vol] 10.9 fL Normal 9.5-13.5 [facility] Comment on above: Performed By: #### N A #### [facility] [address] [place] [address] Dr. Allen Smith PLT 279 103/ul Normal 150-450 [facility] Comment on above: Performed By: #### N A #### [facility] [address] [place], [place] [address] Dr. Allen Smith RBC 3.94 106/ul Critically low 4.20-5.40 [facility] Comment on above: Performed By: #### N A #### [facility] [address] [place], [place] [address] Dr. Allen Smith WBC 11.0 103/ul Normal 4.0-11.0 [facility] Comment on above: Performed By: #### N A #### [facility] [address] [place], [place] [address] Dr. Allen Smith ECHOCARDIO M/2D COMPLETEon 0 01-25-2023 ECHOCARDIO M/2D COMPLETE Patient: PERLA IBARRA Exam Date: 01/25/2023 : 1955 Gender:F Ordering : DOMINGA GODWIN . Admission #: [id number] Family : DR FREDDY BARRAZA M.D. Order #: [id number] CLICK HERE TO VIEW EXAM ECHOCARDIOGRAM REPORT [...] Henderson M.D. on 01/25/2023 at 15:39 Normal [facility] NAon 01-25-2023 Sodium [Moles/Vol] 128 mmol/L Critically low 136-145 [facility] Comment on above: Performed By: #### N A #### [facility] [address] [place] [address] Dr. Allen Smith Sodium [Moles/Vol] 122 mmol/L Critically low 136-145 [facility] Comment on above: Performed By: #### T SH #### [facility] [address] [place] [address] Dr. Allen Smith Sodium [Moles/Vol] 122 mmol/L Critically low 136-145 [facility] Comment on above: Performed By: #### N A #### [facility] [address] [place] [address] Dr. Allen Smith PROF 14(COMP METB)on 023 Albumin [Mass/Vol] 2.8 g/dL Critically low 3.4-5.0 [facility] Comment on above: Performed By: #### B LIFE SKILLS COORDINATOR, CMP #### [facility] [address] [place] [address] Dr. Allen Smith Albumin/Globulin [Mass ratio] 0.5 {ratio} Normal [facility] Comment on above: Performed By: #### B LIFE SKILLS COORDINATOR, CMP #### [facility] [address] [place] [address] Dr. Allen Smith ALP [Catalytic activity/Vol] 69 U/L Normal 46-116 [facility] Comment on above: Performed By: #### B LIFE SKILLS COORDINATOR, CMP #### [facility] [address] [place] [address] Dr. Allen Smith ALT [Catalytic activity/Vol] 57 U/L Normal 14-59 [facility] Comment on above: Performed By: #### B LIFE SKILLS COORDINATOR, CMP #### [facility] [address] [place] [address] Dr. Allen Smith Anion gap [Moles/Vol] 16.1 mmol/L Normal [facility] Comment on above: Performed By: #### B LIFE SKILLS COORDINATOR, CMP #### [facility] [address] [address] [address] Allen Smith AST [Catalytic activity/Vol] 41 U/L Critically high 15-37 [facility] Comment on above: Performed By: #### B LIFE SKILLS COORDINATOR, CMP #### [facility] [address] [address] [address] Allen Smith Bilirubin [Mass/Vol] 0.2 mg/dL Normal 0.2-1.0 [facility] Comment on above: Performed By: #### B LIFE SKILLS COORDINATOR, CMP #### [facility] [address] [address] [address] Allen Smith Calcium [Mass/Vol] 8.7 mg/dL Normal 8.5-10.1 [facility] Comment on above: Performed By: #### B LIFE SKILLS COORDINATOR, CMP #### [facility] [address] [place] [address] Dr. Allen Smith Chloride [Moles/Vol] 88 mmol/L Critically low 98-107 [facility] Comment on above: Performed By: #### B LIFE SKILLS COORDINATOR, CMP #### [facility] [address] [address] [address] Allen Smith CO2 [Moles/Vol] 22.6 mmol/L Normal 21.0-32.0 [facility] Comment on above: Performed By: #### B LIFE SKILLS COORDINATOR, CMP #### [facility] [address] [address] [address] Allen Smith Creatinine [Mass/Vol] 0.83 mg/dL Normal 0.55-1.02 [facility] Comment on above: Performed By: #### B LIFE SKILLS COORDINATOR, CMP #### [facility] [address] [address] [address] Allen Smith EGFR-AF DJIBOUTIAN >60 Normal >=60 [facility] Comment on above: Performed By: #### B LIFE SKILLS COORDINATOR, CMP #### [facility] [address] [address] [address] Allen Smith EGFR-NON AF DJIBOUTIAN >60 Normal >=60 [facility] Comment on above: Performed By: #### B LIFE SKILLS COORDINATOR, CMP #### [facility] [address] [place] [address] Dr. Allen Smith Globulin (S) [Mass/Vol] 5.2 g/dL Normal [facility] Comment on above: Performed By: #### B LIFE SKILLS COORDINATOR, CMP #### [facility] [address] [place] [address] Dr. Allen Smith Glucose [Mass/Vol] 120 mg/dL Critically high 74-106 [facility] Comment on above: Performed By: #### B LIFE SKILLS COORDINATOR, CMP #### [facility] [address] [place] [address] Dr. Allen mSith Potassium [Moles/Vol] 3.7 mmol/L Normal 3.5-5.1 [facility] Comment on above: Performed By: #### B LIFE SKILLS COORDINATOR, CMP #### [facility] [address] [place] [address] Dr. Allen Smith Protein [Mass/Vol] 8.0 g/dL Normal 6.4-8.2 [facility] Comment on above: Performed By: #### B LIFE SKILLS COORDINATOR, CMP #### [facility] [address] [place] [address] Dr. Allen Smith Sodium [Moles/Vol] 122 mmol/L Critically low 136-145 [facility] Comment on above: Performed By: #### B LIFE SKILLS COORDINATOR, CMP #### [facility] [address] [place] [address] Dr. Allen Smith Urea nitrogen [Mass/Vol] 13.0 mg/dL Normal 7.0-18.0 [facility] Comment on above: Performed By: #### B LIFE SKILLS COORDINATOR, CMP #### [facility] [address] [place] [address] Dr. Allen Smith Urea nitrogen/Creatinine [Mass ratio] 15.7 mg/mg Normal [facility] Comment on above: Performed By: #### B LIFE SKILLS COORDINATOR, CMP #### [facility] [address] [place] [address] Dr. Allen Smith PROF CHEM 8 (BAS METB)on Anion gap [Moles/Vol] 13.3 mmol/L Normal [facility] Comment on above: Performed By: #### B MP #### [facility] [address] [address] [address] Allen Smith Calcium [Mass/Vol] 7.1 mg/dL Critically low 8.5-10.1 [facility] Comment on above: Performed By: #### B MP #### [facility] [address] [address] [address] Allen Smith Chloride [Moles/Vol] 97 mmol/L Critically low 98-107 [facility] Comment on above: Performed By: #### B MP #### [facility] [address] [address] [address] Allen Smith CO2 [Moles/Vol] 21.8 mmol/L Normal 21.0-32.0 [facility] Comment on above: Performed By: #### B MP #### [facility] [address] [place] [address] Dr. Allen Smith Creatinine [Mass/Vol] 0.84 mg/dL Normal 0.55-1.02 [facility] Comment on above: Performed By: #### B MP #### [facility] [address] [place] [address] Dr. Allen Smith EGFR-AF DJIBOUTIAN >60 Normal >=60 [facility] Comment on above: Performed By: #### B MP #### [facility] [address] [place] [address] Dr. Allen Smith EGFR-NON AF DJIBOUTIAN >60 Normal >=60 [facility] Comment on above: Performed By: #### B MP #### [facility] [address] [place] [address] Dr. Allen Smith Glucose [Mass/Vol] 128 mg/dL Critically high 74-106 [facility] Comment on above: Performed By: #### B MP #### [facility] [address] [place] [address] Dr. Allen Smith Potassium [Moles/Vol] 3.1 mmol/L Critically low 3.5-5.1 [facility] Comment on above: Performed By: #### B MP #### [facility] [address] [place] [address] Dr. Allen Smith Sodium [Moles/Vol] 129 mmol/L Critically low 136-145 [facility] Comment on above: Performed By: #### B MP #### [facility] [address] [place] [address] Dr. Allen Smith Urea nitrogen [Mass/Vol] 17.0 mg/dL Normal 7.0-18.0 [facility] Comment on above: Performed By: #### B MP #### [facility] [address] [place] [address] Dr. Allen Smith Urea nitrogen/Creatinine [Mass ratio] 20.2 mg/mg Normal [facility] Comment on above: Performed By: #### B MP #### [facility] [address] [place] [address] Dr. Allen Smith PROTIMEon 01-25-2023 INR Coag (PPP) [Relative time] 0.98 {INR} Normal [facility] Comment on above: Performed By: #### B LIFE SKILLS COORDINATOR, CMP #### [facility] [address] [place] [address] Dr. Allen Smith INR GUIDELINES SEE BELOW Normal [facility] Comment on above: Result Comment: VU RED INR: 2.0 - 3.0 CONDITIONS NOT LISTED BELOW 2.5 - 3.5 FOR PROSTHETIC HEART VALVE REPLACEMENT 2.5 - 3.5 RECURRENT THROMBOSIS Performed By: #### B LIFE SKILLS COORDINATOR, CMP #### [facility] [address] [place] [address] Dr. Allen Smith PT Coag (PPP) [Time] 10.4 s Normal 9.0-11.6 [facility] Comment on above: Performed By: #### B LIFE SKILLS COORDINATOR, CMP #### [facility] [address] [place] [address] Dr. Allen Smith PTTon 01-25-2023 aPTT Coag (Bld) [Time] 29.8 s Normal 22.3-36.2 [facility] Comment on above: Performed By: #### B LIFE SKILLS COORDINATOR, CMP #### [facility] [address] [address] [address] Allen Smith PTT HEPARIN MONITORon 2022 aPTT Coag (Bld) [Time] 24.5 s Critically low 39.5-54.2 [facility] Comment on above: Performed By: #### T #### [facility] [address] [address] [address] Allen Smith TRIGLYCERIDEon 01-25-2023 Triglyceride [Mass/Vol] 55 mg/dL Normal <=150 [facility] Comment on above: Performed By: #### T #### [facility] [address] [address] [address] Allen Smith XR CHEST 1 Von 01-25-2023 XR CHEST 1 V EXAM: XR CHEST 1 V HISTORY: SHORTNESS OF BREATH COMPARISON: Chest radiograph 01/25/2023. TECHNIQUE: AP upright portable view of chest FINDINGS: Stable endotracheal tube position. Enteric tube has been advanced with distal tip not included in the [id number] but at least terminates in the mid to low gastric body. Radiolucent sideport is at the gastric antrum. Similar pulmonary vascular congestion. No sizable pleural effusion or pneumothorax. Normal cardiomediastinal sella. No acute osseous or soft tissue abnormalities. IMPRESSION: 1. Enteric tube has been advanced with distal tip not included in the [id number] but at least terminates in the mid to low gastric body. Radiolucent sideport is at the gastric antrum. 2. Stable endotracheal tube position. 3. Pulmonary vascular congestion. Electronically authenticated by: BASHIR ZAYAS Date: 2023-01-25 18:35 Normal [facility] XR CHEST 1 V EXAM: XR CHEST [...] by: Ava HERNDON Date: 2023-01-25 17:25 Normal [facility] BLOOD GASES BTYon 01-24-2023 02 MODE NASAL CANNULA Normal [facility] Comment on above: Performed By: #### A BG #### [facility] [address] [place] [address] Dr. Allen Smith ALLENS TEST Positive [facility] Comment on above: Performed By: #### A BG #### [facility] [address] [place] [address] Dr. Allen Smith Base excess Calc (Bld) [Moles/Vol] -4.1000 mmol/L Critically low -2.0-2.0 [facility] Comment on above: Performed By: #### A BG #### [facility] [address] [place] [address] Dr. Allen Smith BIPAP PRESSURE [facility] Comment on above: Performed By: #### A BG #### [facility] [address] [place] [address] Dr. Allen Smith CPAP [facility] Comment on above: Performed By: #### A BG #### [facility] [address] [place] [address] Dr. Allen Smith FIO2 [facility] Comment on above: Performed By: #### A BG #### [facility] [address] [place] [address] Dr. Allen Smith HCO3 (Bld) [Moles/Vol] 21.6 mmol/L Critically low 22.0-26. 0 [facility] Comment on above: Performed By: #### A BG #### [facility] [address] [place] [address] Dr. Allen Smith LPM 3 [facility] Comment on above: Performed By: #### A BG #### [facility] [address] [place] [address] Dr. Allen Smith MINUTE VOLUME Normal [facility] Comment on above: Performed By: #### A BG #### [facility] [address] [place] [address] Dr. Allen Smith Oxygen (Bld) [Partial pressure] 112.0 mm[Hg] Critically high 80.0-100.0 [facility] Comment on above: Performed By: #### A BG #### [facility] [address] [place] [address] Dr. Allen Smith Oxygen saturation in Blood 98.5 % Normal 95.0-100.0 [facility] Comment on above: Performed By: #### A BG #### [facility] [address] [place] [address] Dr. Allen Smith PCO2 39.6 mmHg Normal 35.0-45.0 [facility] Comment on above: Performed By: #### A BG #### [facility] [address] [place] [address] Dr. Allen Smith PEEP [facility] Comment on above: Performed By: #### A BG #### [facility] [address] [place] [address] Dr. Allen Smith pH (Bld) 7.345 [pH] Critically low 7.350-7.45 0 [facility] Comment on above: Performed By: #### A BG #### [facility] [address] [place] [address] Dr. Allen Smith [facility] Comment on above: Performed By: #### A BG #### [facility] [address] [place] [address] Dr. Allen Smith PS [facility] Comment on above: Performed By: #### A BG #### [facility] [address] [place] [address] Dr. Allen Smith PUNCTURE SITE LR [facility] Comment on above: Performed By: #### A BG #### [facility] [address] [place] [address] Dr. Allen Smith RATE [facility] Comment on above: Performed By: #### A BG #### [facility] [address] [place] [address] Dr. Allen Smith VENT MODE [facility] Comment on above: Performed By: #### A BG #### [facility] [address] [place] [address] Dr. Allen Smith VT Normal [facility] Comment on above: Performed By: #### A BG #### [facility] [address] [place] [address] Dr. Allen Smith BNPon 01-24-2023 Natriuretic peptide B (Bld) [Mass/Vol] 18862.0 pg/mL Critically high <=900.0 [facility] Comment on above: Performed By: #### N A #### [facility] [address] [place] [address] Dr. Allen Smith CARDIAC LI 3-6on 3 CK [Catalytic activity/Vol] 319 U/L Critically high - [facility] Comment on above: Performed By: #### B LIFE SKILLS COORDINATOR, CMP #### [facility] [address] [place] [address] Dr. Allen Smith CK.MB [Mass/Vol] 16.41 ng/mL Critically high <=3.60 [facility] Comment on above: Performed By: #### B LIFE SKILLS COORDINATOR, CMP #### [facility] [address] [place] [address] Dr. Allen Smith HSTROP 1248.2 pg/mL Critically high 4.0-51.3 [facility] Comment on above: Result Comment: CUT- OFF POINTS HAVE BEEN ESTABLISHED BASED ON THE FOURTH UNIVERSAL DEFINITIONS OF MYOCARDIAL INFARCTION. THE UPPER REFERENCE LIMIT (URL) OF TROPONIN, DEFINED THE 99TH PERCENTILE OF cTnI DISTRIBUTION IN A REFERENCE POPULATION, HAS BEEN CONFIRMED THE DECISION THRESHOLD FOR CO DIAGNOSIS. Performed By: #### B LIFE SKILLS COORDINATOR, CMP #### [facility] [address] [place] [address] Dr. Allen Smith CARDIAC LI ADMITon 023 CK [Catalytic activity/Vol] 238 U/L Critically high -192 [facility] Comment on above: Performed By: #### C MADM #### [facility] [address] [place] [address] Dr. Allen Smith CK.MB [Mass/Vol] 12.74 ng/mL Critically high <=3.60 e [facility] Comment on above: Performed By: #### C MADM #### [facility] [address] [place] [address] Dr. Allen Smith HSTROP 1545.9 pg/mL Critically high 4.0-51.3 [facility] Comment on above: Result Comment: CUT- OFF POINTS HAVE BEEN ESTABLISHED BASED ON THE FOURTH UNIVERSAL DEFINITIONS OF MYOCARDIAL INFARCTION. THE UPPER REFERENCE LIMIT (URL) OF TROPONIN, DEFINED THE 99TH PERCENTILE OF cTnI DISTRIBUTION IN A REFERENCE POPULATION, HAS BEEN CONFIRMED THE DECISION THRESHOLD FOR CO DIAGNOSIS. Performed By: #### C MADM #### [facility] [address] [place] [address] Dr. Allen Smith BRYAN 244 ng/mL Critically high 9-82 [facility] Comment on above: Performed By: #### C MADM #### [facility] [address] [place] [address] Dr. Allen Smith CBC AUTO DIFFon 01-24-2023 BASO # 0.0 103/ul Normal 0.0-0.1 [facility] Comment on above: Performed By: #### C BC #### [facility] [address] [place] [address] Dr. Allen Smith Basophils/100 WBC (Bld) 0.2 % Normal 0.2-2.0 [facility] Comment on above: Performed By: #### C BC #### [facility] [address] [place] [address] Dr. Allen Smith EO # 0.0 103/ul Normal 0.0-0.7 [facility] Comment on above: Performed By: #### C BC #### [facility] [address] [place] [address] Dr. Allen Smith Eosinophils/100 WBC (Bld) 0.0 % Critically low 0.9-7.0 [facility] Comment on above: Performed By: #### C BC #### [facility] [address] [place] [address] Dr. Allen Smith Erythrocyte distribution width (RBC) [Ratio] 13.4 % Normal 11.0-15.0 [facility] Comment on above: Performed By: #### C BC #### [facility] [address] [address] [address] Allen Smith Hematocrit (Bld) [Volume fraction] 33.0 % Critically low 36.0-48.0 [facility] Comment on above: Performed By: #### C BC #### [facility] [address] [address] [address] Allen Smith Hemoglobin (Bld) [Mass/Vol] 10.6 g/dL Critically low 12.0-16.0 [facility] Comment on above: Performed By: #### C BC #### [facility] [address] [place] [address] Dr. Allen Smith IG # 0.11 10e3/ul Critically high 0.00-0.03 [facility] Comment on above: Performed By: #### C BC #### [facility] [address] [place] [address] Dr. Allen Smith IG % 0.9 % Critically high 0.0-0.5 [facility] Comment on above: Performed By: #### C BC #### [facility] [address] [place] [address] Dr. Allen Smith LYMPH # 0.5 103/ul Critically low 1.2-3.8 [facility] Comment on above: Performed By: #### C BC #### [facility] [address] [place] [address] Dr. Allen Smith Lymphocytes/100 WBC (Bld) 4.2 % Critically low 20.5-60.0 [facility] Comment on above: Performed By: #### C BC #### [facility] [address] [address] [address] Allen Smith MANUAL DIFF REQ NO Normal [facility] Comment on above: Performed By: #### C BC #### [facility] [address] [place] [address] Dr. Allen Smith MCH (RBC) [Entitic mass] 24.5 pg Critically low 26.7-34.0 [facility] Comment on above: Performed By: #### C BC #### [facility] [address] [address] [address] Allen Smith MCHC (RBC) [Mass/Vol] 32.1 g/dL Normal 29.9-35.2 [facility] Comment on above: Performed By: #### C BC #### [facility] [address] [address] [address] Allen Smith MCV (RBC) [Entitic vol] 76.2 fL Critically low 81.0-99.0 [facility] Comment on above: Performed By: #### C BC #### [facility] [address] [address] [address] Allen Smith MONO # 0.7 103/ul Normal 0.3-0.8 [facility] Comment on above: Performed By: #### C BC #### [facility] [address] [place] [address] Dr. Allen Smith Monocytes/100 WBC (Bld) 5.1 % Normal 1.7-12.0 [facility] Comment on above: Performed By: #### C BC #### [facility] [facility] [address] [place] [address] Dr. Allen Smith NEUT # 11.3 103/ul Critically high 1.4-6.5 [facility] Comment on above: Performed By: #### C BC #### [facility] [address] [place] [address] Dr. Allen Smith Neutrophils/100 WBC (Bld) 89.6 % Critically high 43.0-75.0 [facility] Comment on above: Performed By: #### C BC #### [facility] [address] [place] [address] Dr. Allen Smith Platelet mean volume (Bld) [Entitic vol] 10.0 fL Normal 9.5-13.5 [facility] Comment on above: Performed By: #### C BC #### [facility] [address] [place] [address] Dr. Allen Smith PLT 316 103/ul Normal 150-450 [facility] Comment on above: Performed By: #### C BC #### [facility] [address] [address] [address] Allen Smith RBC 4.33 106/ul Normal 4.20-5.40 [facility] Comment on above: Performed By: #### C BC #### [facility] [address] [address] [address] Allen Smith WBC 12.6 103/ul Critically high 4.0-11.0 [facility] Comment on above: Performed By: #### C BC #### [facility] [address] [address] NECK ST W CONon [address] W CON EXAMINATION: CT [...] FREDDY BARRAZA Date: 2023-01-24 14:13 Normal [facility] CULTURE BLOODon 01-24-2023 Microscopic examination of blood, culture Culture Observations: NO GROWTH AT 5 DAYS. Normal [facility] Comment on above: Performed By: #### B LIFE SKILLS COORDINATOR, CMP #### [facility] [address] [address] [address] Allen Smith Microscopic examination of blood, culture Culture Observations: NO GROWTH AT 5 DAYS. Normal [facility] Comment on above: Performed By: #### B LIFE SKILLS COORDINATOR, CMP #### [facility] [address] [place] [address] Dr. Allen Smith GROUP A STREP CULTUREon 01-01 S. pyogenes Ag Ql (Unsp spec) Culture Observations: NEGATIVE FOR GROUP A STREPTOCOCCUS. Normal [facility] Comment on above: Performed By: #### N A #### [facility] [address] [place] [address] Dr. Allen Smith LACTATE/LACTIC ACIDon 2022 Lactate [Moles/Vol] 3.1 mmol/L Critically high 0.4-2.0 [facility] Comment on above: Performed By: #### A BG #### [facility] [address] [place] [address] Dr. Allen Smith Lactate [Moles/Vol] 3.6 mmol/L Critically high 0.4-2.0 [facility] Comment on above: Performed By: #### T SH #### [facility] [address] [place] [address] Dr. Allen Smith NAon 01-24-2023 Sodium [Moles/Vol] 122 mmol/L Critically low 136-145 [facility] Comment on above: Performed By: #### N A #### [facility] [address] [place] [address] Dr. Allen Smith PROF 14(COMP METB)on 023 Albumin [Mass/Vol] 3.0 g/dL Critically low 3.4-5.0 [facility] Comment on above: Performed By: #### N A #### [facility] [address] [place] [address] Dr. Allen Smith Albumin/Globulin [Mass ratio] 0.5 {ratio} Normal [facility] Comment on above: Performed By: #### N A #### [facility] [address] [place] [address] Dr. Allen Smith ALP [Catalytic activity/Vol] 88 U/L Normal 46-116 [facility] Comment on above: Performed By: #### N A #### [facility] [address] [address] [address] Allen Smith ALT [Catalytic activity/Vol] 65 U/L Critically high 14-59 [facility] Comment on above: Performed By: #### N A #### [facility] [address] [address] [address] Allen Smith Anion gap [Moles/Vol] 17.8 mmol/L Normal [facility] Comment on above: Performed By: #### N A #### [facility] [address] [address] [address] Allen Smith AST [Catalytic activity/Vol] 28 U/L Normal 15-37 [facility] Comment on above: Performed By: #### N A #### [facility] [address] [place] [address] Dr. Allen Smith Bilirubin [Mass/Vol] 0.3 mg/dL Normal 0.2-1.0 [facility] Comment on above: Performed By: #### N A #### [facility] [address] [address] [address] Allen Smith Calcium [Mass/Vol] 9.5 mg/dL Normal 8.5-10.1 [facility] Comment on above: Performed By: #### N A #### [facility] [address] [address] [address] Allen Smith Chloride [Moles/Vol] 87 mmol/L Critically low 98-107 [facility] Comment on above: Performed By: #### N A #### [facility] [address] [address] [address] Allen Smith CO2 [Moles/Vol] 22.5 mmol/L Normal 21.0-32.0 [facility] Comment on above: Performed By: #### N A #### [facility] [address] [address] [address] Allen Smith Creatinine [Mass/Vol] 1.07 mg/dL Critically high 0.55-1.02 [facility] Comment on above: Performed By: #### N A #### [facility] [address] [address] [address] Allen Smith EGFR-AF DJIBOUTIAN >60 Normal >=60 [facility] Comment on above: Performed By: #### N A #### [facility] [address] [address] [address] Allen Smith EGFR-NON AF DJIBOUTIAN 51 mL/min/1.73m2 Critically low >=60 [facility] Comment on above: Performed By: #### N A #### [facility] [address] [address] [address] Allen Smith Globulin (S) [Mass/Vol] 6.2 g/dL Normal [facility] Comment on above: Performed By: #### N A #### [facility] [address] [address] [address] Allen Smith Glucose [Mass/Vol] 182 mg/dL Critically high 74-106 [facility] Comment on above: Performed By: #### N A #### [facility] [address] [address] [address] Allen Smith Potassium [Moles/Vol] 4.3 mmol/L Normal 3.5-5.1 [facility] Comment on above: Performed By: #### N A #### [facility] [address] [address] [address] Allen Smith Protein [Mass/Vol] 9.2 g/dL Critically high 6.4-8.2 [facility] Comment on above: Performed By: #### N A #### [facility] [address] [address] [address] Allen Smith Sodium [Moles/Vol] 123 mmol/L Critically low 136-145 [facility] Comment on above: Performed By: #### N A #### [facility] [address] [address] [address] Allen Smith Urea nitrogen [Mass/Vol] 12.0 mg/dL Normal 7.0-18.0 [facility] Comment on above: Performed By: #### N A #### [facility] [address] [place] [address] Dr. Allen Smith Urea nitrogen/Creatinine [Mass ratio] 11.2 mg/mg Normal [facility] Comment on above: Performed By: #### N A #### [facility] [address] [place] [address] Dr. Allen Smith PROTIMEon 01-24-2023 INR Coag (PPP) [Relative time] 0.98 {INR} Normal [facility] Comment on above: Performed By: #### T SH #### [facility] [address] [place] [address] Dr. Allen Smith INR GUIDELINES SEE BELOW Normal [facility] Comment on above: Result Comment: VU RED INR: 2.0 - 3.0 CONDITIONS NOT LISTED BELOW 2.5 - 3.5 FOR PROSTHETIC HEART VALVE REPLACEMENT 2.5 - 3.5 RECURRENT THROMBOSIS Performed By: #### T SH #### [facility] [address] [place] [address] Dr. Allen Smith PT Coag (PPP) [Time] 10.4 s Normal 9.0-11.6 [facility] Comment on above: Performed By: #### T SH #### [facility] [address] [place] [address] Dr. Allen Smith PTTon 01-24-2023 aPTT Coag (Bld) [Time] 29.5 s Normal 22.3-36.2 Th [facility] Comment on above: Performed By: #### T SH #### [facility] [address] [place] [address] Dr. Allen Smith RESPIRATORY PANEL PLUSon Adenovirus Not detected Normal NOT DETECTED [facility] Comment on above: Performed By: #### N A #### [facility] [address] [place] [address] Dr. Allen Thayer Parapertusis Not detected Normal NOT DETECTED [facility] Comment on above: Performed By: #### N A #### [facility] [address] [place] [address] Dr. Allen Thayer Pertussis Not detected Normal NOT DETECTED [facility] Comment on above: Performed By: #### N A #### [facility] [address] [place] [address] Dr. Allen Smith Chlamydia Pneumoniae Not detected Normal NOT DETECTED [facility] Comment on above: Performed By: #### N A #### [facility] [address] [place] [address] Dr. Allen Smith Coronavirus 229E Not detected Normal NOT DETECTED [facility] Comment on above: Performed By: #### N A #### [facility] [address] [place] [address] Dr. Allen Smith Coronavirus HKU1 Not detected Normal NOT DETECTED [facility] Comment on above: Performed By: #### N A #### [facility] [address] [place] [address] Dr. Allen Smith Coronavirus NL63 Not detected Normal NOT DETECTED [facility] Comment on above: Performed By: #### N A #### [facility] [address] [place] [address] Dr. Allen Smith Coronavirus OC43 Not detected Normal NOT DETECTED [facility] Comment on above: Performed By: #### N A #### [facility] [address] [place] [address] Dr. Allen Smith Influenza A H1 Not detected Normal NOT DETECTED [facility] Comment on above: Performed By: #### N A #### [facility] [address] [place] [address] Dr. Allen Smith Influenza A H1 2009 Not detected Normal NOT DETECTED [facility] Comment on above: Performed By: #### N A #### [facility] [address] [place] [address] Dr. Allen Smith Influenza A H3 Not detected Normal NOT DETECTED [facility] Comment on above: Performed By: #### N A #### [facility] [address] [place] [address] Dr. Allen Smith Influenza B Not detected Normal NOT DETECTED [facility] Comment on above: Performed By: #### N A #### [facility] [address] [place] [address] Dr. Allen Smith Metapneumovirus Not detected Normal NOT DETECTED [facility] Comment on above: Performed By: #### N A #### [facility] [address] [place] [address] Dr. Allen Smith Mycoplas. Pneumoniae Not detected Normal NOT DETECTED [facility] Comment on above: Performed By: #### N A #### [facility] [address] [place] [address] Dr. Allen Smith Parainfluenza 1 Not detected Normal NOT DETECTED [facility] Comment on above: Performed By: #### N A #### [facility] [address] [place] [address] Dr. Allen Smith Parainfluenza 2 Not detected Normal NOT DETECTED [facility] Comment on above: Performed By: #### N A #### [facility] [address] [place] [address] Dr. Allen Smith Parainfluenza 3 Detected Abnormal NOT DETECTED [facility] Comment on above: Performed By: #### N A #### [facility] [address] [place] [address] Dr. Allen Smith Parainfluenza 4 Not detected Normal NOT DETECTED [facility] Comment on above: Performed By: #### N A #### [facility] [address] [place] [address] Dr. Allen Smith Rhino/Enterovirus Not detected Normal NOT DETECTED [facility] Comment on above: Performed By: #### N A #### [facility] [address] [place] [address] Dr. Allen Smith RP2 Header 1 RESPIRATORY PANEL: VIRUSES Normal [facility] Comment on above: Performed By: #### N A #### [facility] [address] [place] [address] Dr. Allen Smith RP2 Header 2 RESPIRATORY PANEL: BACTERIA Normal [facility] Comment on above: Performed By: #### N A #### [facility] [address] [place] [address] Dr. Allen Smith RSV Not detected Normal NOT DETECTED [facility] Comment on above: Performed By: #### N A #### [facility] [address] [address] [address] Allen Smith SARS-CoV-2 (COVID-19) RNA BJORN+probe Ql (Unsp spec) Not detected Normal NOT DETECTED [facility] Comment on above: Performed By: #### N A #### [facility] [address] [place] [address] Dr. Allen Smith STREPT SCREENon 01-24-2023 STREP SCREEN A Negative Normal NEGATIVE [facility] Comment on above: Performed By: #### N A #### [facility] [address] [place] [address] Dr. Allen Smith TSHon 01-24-2023 TSH 0.471 uIU/mL Normal 0.358-3.74 0 [facility] Comment on above: Performed By: #### T SH #### [facility] [address] [place] [address] Dr. Allen Smith XR CHEST 1 Von [...] by: OLIVIA JAVED Date: 2023-01-24 12:53 Normal [facility] Vital Signs Date Time Vital Sign Value Performing Clinician Facility 03-29-2024 10:55-0400 Inhaled oxygen flow rate 2 L/min [facility] Nedra Julio Work Phone: [facility] 03-29-2024 09:50-0400 Body temperature 98.1 [degF] [facility] Nedra Perez Work Phone: [facility] 03-29-2024 09:50-0400 Body weight 76.65 kg [facility] Nedra Perez Work Phone: [facility] 03-29-2024 09:50-0400 Diastolic blood pressure 75 mm[Hg] CHARGE ACCOUNT AUTHORIZER Nedra Perez Work Phone: [facility] 03-29-2024 09:50-0400 Heart rate 65 /min CHARGE ACCOUNT AUTHORIZER Nedra Perez Work Phone: [facility] 03-29-2024 09:50-0400 Inhaled oxygen flow rate 2 L/min CHARGE ACCOUNT AUTHORIZER Nedra Perez Work Phone: [facility] 03-29-2024 09:50-0400 Respiratory rate 20 /min CHARGE ACCOUNT AUTHORIZER Nedra Perez Work Phone: [facility] 03-29-2024 09:50-0400 SaO2% (BldA) [Mass fraction] 100 % CHARGE ACCOUNT AUTHORIZER Nedra Perez Work Phone: [facility] 03-29-2024 09:50-0400 Systolic blood pressure 137 mm[Hg] CHARGE ACCOUNT AUTHORIZER Nedra Perez Work Phone: [facility] 01-18-2024 13:00-0400 Body temperature 97.6 [degF] CHARGE ACCOUNT AUTHORIZER Nedra Perez Work Phone: [facility] 01-18-2024 13:00-0400 Diastolic blood pressure 65 mm[Hg] CHARGE ACCOUNT AUTHORIZER Nedra Perez Work Phone: [facility] 01-18-2024 13:00-0400 Heart rate 62 /min CHARGE ACCOUNT AUTHORIZER Nedra Perez Work Phone: [facility] 01-18-2024 13:00-0400 Respiratory rate 18 /min CHARGE ACCOUNT AUTHORIZER Nedra Perez Work Phone: [facility] 01-18-2024 13:00-0400 SaO2% (BldA) [Mass fraction] 100 % CHARGE ACCOUNT AUTHORIZER Nedra Perez Work Phone: [facility] 01-18-2024 13:00-0400 Systolic blood pressure 122 mm[Hg] CHARGE ACCOUNT AUTHORIZER Nedra Kuns Work Phone: [facility] 12-29-2023 09:56-0400 Inhaled oxygen flow rate 2 L/min CHARGE ACCOUNT AUTHORIZER Nedra Perez Work Phone: [facility] 12-29-2023 08:52-0400 Body temperature 98.2 [degF] CHARGE ACCOUNT AUTHORIZER Nedra Perez Work Phone: [facility] 12-29-2023 08:52-0400 Body weight 68.49 kg CHARGE ACCOUNT AUTHORIZER Nedra Perez Work Phone: [facility] 12-29-2023 08:52-0400 Diastolic blood pressure 68 mm[Hg] CHARGE ACCOUNT AUTHORIZER Nedra Perez Work Phone: [facility] 12-29-2023 08:52-0400 Heart rate 87 /min CHARGE ACCOUNT AUTHORIZER Nedra Perez Work Phone: [facility] 12-29-2023 08:52-0400 Inhaled oxygen flow rate 2 L/min [facility] Nedra Perez Work Phone: [facility] 12-29-2023 08:52-0400 Respiratory rate 18 /min [facility] Nedra Perez Work Phone: [facility] 12-29-2023 08:52-0400 SaO2% (BldA) [Mass fraction] 99 % CHARGE ACCOUNT AUTHORIZER Nedra Perez Work Phone: [facility] 12-29-2023 08:52-0400 Systolic blood pressure 124 mm[Hg] CHARGE ACCOUNT AUTHORIZER Nedra Perez Work Phone: [facility] 12-26-2023 14:57-0400 Body height 157.5 cm Nedra Perez APRN-CHARGE ACCOUNT AUTHORIZER Work Phone: [facility] 12-26-2023 14:57-0400 Body mass index (BMI) [Ratio] 27.44 kg/m2 Nedra Perez APRN-CHARGE ACCOUNT AUTHORIZER Work Phone: [facility] 12-26-2023 14:57-0400 Body temperature 97.39 [degF] Nedra Perez APRN-CHARGE ACCOUNT AUTHORIZER Work Phone: [facility] 12-26-2023 14:57-0400 Body weight 68.04 kg Nedra Perez APRN-CHARGE ACCOUNT AUTHORIZER Work Phone: [facility] 12-26-2023 14:57-0400 Diastolic blood pressure 56 mm[Hg] Ndera Perez APRN-CHARGE ACCOUNT AUTHORIZER Work Phone: [facility] 12-26-2023 14:57-0400 Heart rate 73 /min Nedra Perez APRN-CHARGE ACCOUNT AUTHORIZER Work Phone: [facility] 12-26-2023 14:57-0400 Respiratory rate 20 /min Nedra Perez APRN-CHARGE ACCOUNT AUTHORIZER Work Phone: [facility] 12-26-2023 14:57-0400 SaO2% (BldA) [Mass fraction] 99 % Nedra Perez APRN-CHARGE ACCOUNT AUTHORIZER Work Phone: [facility] 12-26-2023 14:57-0400 Systolic blood pressure 100 mm[Hg] Nedra Perez APRN-CHARGE ACCOUNT AUTHORIZER Work Phone: [facility] 12-07-2023 13:18-0500 Body temperature 98 [degF] CHARGE ACCOUNT AUTHORIZER Nedra Perez Work Phone: [facility] 12-07-2023 13:18-0500 Diastolic blood pressure 56 mm[Hg] CHARGE ACCOUNT AUTHORIZER Nedra Perez Work Phone: [facility] 12-07-2023 13:18-0500 Heart rate 59 /min CHARGE ACCOUNT AUTHORIZER Nedra Perez Work Phone: [facility] 12-07-2023 13:18-0500 Respiratory rate 20 /min CHARGE ACCOUNT AUTHORIZER Nedra Perez Work Phone: [facility] 12-07-2023 13:18-0500 SaO2% (BldA) [Mass fraction] 99 % CHARGE ACCOUNT AUTHORIZER Nedra Perez Work Phone: [facility] 12-07-2023 13:18-0500 Systolic blood pressure 115 mm[Hg] CHARGE ACCOUNT AUTHORIZER Nedra Perez Work Phone: [facility] 11-17-2023 10:30-0500 Body weight 62.59 kg CHARGE ACCOUNT AUTHORIZER Nedra Perez Work Phone: [facility] 11-17-2023 09:44-0500 Body temperature 98 [degF] CHARGE ACCOUNT AUTHORIZER Nedra Perez Work Phone: [facility] 11-17-2023 09:44-0500 Diastolic blood pressure 66 mm[Hg] CHARGE ACCOUNT AUTHORIZER Nedra Perez Work Phone: [facility] 11-17-2023 09:44-0500 Heart rate 72 /min CHARGE ACCOUNT AUTHORIZER Nedra Perez Work Phone: [facility] 11-17-2023 09:44-0500 Inhaled oxygen flow rate 2 L/min CHARGE ACCOUNT AUTHORIZER Nedra Perez Work Phone: [facility] 11-17-2023 09:44-0500 Respiratory rate 20 /min CHARGE ACCOUNT AUTHORIZER Nedra Perez Work Phone: [facility] 11-17-2023 09:44-0500 SaO2% (BldA) [Mass fraction] 100 % CHARGE ACCOUNT AUTHORIZER Nedra Perez Work Phone: [facility] 11-17-2023 09:44-0500 Systolic blood pressure 142 mm[Hg] CHARGE ACCOUNT AUTHORIZER Nedra Perez Work Phone: [facility] 10-26-2023 14:23-0500 Inhaled oxygen flow rate 2 L/min CHARGE ACCOUNT AUTHORIZER Nedra Perez Work Phone: [facility] 10-26-2023 13:13-0500 Body temperature 98.1 [degF] CHARGE ACCOUNT AUTHORIZER Nedra Perez Work Phone: [facility] 10-26-2023 13:13-0500 Body weight 69.85 kg CHARGE ACCOUNT AUTHORIZER Nedra Perez Work Phone: [facility] 10-26-2023 13:13-0500 Diastolic blood pressure 66 mm[Hg] CHARGE ACCOUNT AUTHORIZER Nedra Perez Work Phone: [facility] 10-26-2023 13:13-0500 Heart rate 77 /min CHARGE ACCOUNT AUTHORIZER Nedra Perez Work Phone: [facility] 10-26-2023 13:13-0500 Inhaled oxygen flow rate 2 L/min CHARGE ACCOUNT AUTHORIZER Nedra Sanchezs Work Phone: [facility] 10-26-2023 13:13-0500 Respiratory rate 20 /min CHARGE ACCOUNT AUTHORIZER Nedra Sanchezs Work Phone: [facility] 10-26-2023 13:13-0500 SaO2% (BldA) [Mass fraction] 97 % CHARGE ACCOUNT AUTHORIZER Nedra Perez Work Phone: [facility] 10-26-2023 13:13-0500 Systolic blood pressure 119 mm[Hg] CHARGE ACCOUNT AUTHORIZER Nedra Perez Work Phone: [facility] 10-24-2023 09:40-0500 Body temperature 97.9 [degF] CHARGE ACCOUNT AUTHORIZER Nedra Perez Work Phone: [facility] 10-24-2023 09:40-0500 Diastolic blood pressure 84 mm[Hg] CHARGE ACCOUNT AUTHORIZER Nedra Perez Work Phone: [facility] 10-24-2023 09:40-0500 Heart rate 103 /min CHARGE ACCOUNT AUTHORIZER Nedra Perez Work Phone: [facility] 10-24-2023 09:40-0500 Inhaled oxygen flow rate 2 L/min CHARGE ACCOUNT AUTHORIZER Nedra Sanchezs Work Phone: [facility] 10-24-2023 09:40-0500 Respiratory rate 20 /min CHARGE ACCOUNT AUTHORIZER Nedra Sanchezs Work Phone: [facility] 10-24-2023 09:40-0500 SaO2% (BldA) [Mass fraction] 100 % CHARGE ACCOUNT AUTHORIZER Nedra Sanchezs Work Phone: [facility] 10-24-2023 09:40-0500 Systolic blood pressure 134 mm[Hg] CHARGE ACCOUNT AUTHORIZER Nedra Perez Work Phone: [facility] 10-24-2023 06:00-0500 Body weight 70.9 kg CHARGE ACCOUNT AUTHORIZER Nedra Perez Work Phone: [facility] 10-20-2023 16:43-0500 Body height 165.1 cm CHARGE ACCOUNT AUTHORIZER Nedra Perez Work Phone: [facility] 10-05-2023 10:36-0500 Body temperature 97.9 [degF] CHARGE ACCOUNT AUTHORIZER Nedra Perez Work Phone: [facility] 10-05-2023 10:36-0500 Body weight 63.59 kg CHARGE ACCOUNT AUTHORIZER Nedra Perez Work Phone: [facility] 10-05-2023 10:36-0500 Diastolic blood pressure 53 mm[Hg] CHARGE ACCOUNT AUTHORIZER Nedra Perez Work Phone: [facility] 10-05-2023 10:36-0500 Heart rate 66 /min CHARGE ACCOUNT AUTHORIZER Nedra Perez Work Phone: [facility] 10-05-2023 10:36-0500 Inhaled oxygen flow rate 2 L/min CHARGE ACCOUNT AUTHORIZER Nedra Perez Work Phone: [facility] 10-05-2023 10:36-0500 Respiratory rate 20 /min CHARGE ACCOUNT AUTHORIZER Nedra Perez Work Phone: [facility] 10-05-2023 10:36-0500 SaO2% (BldA) [Mass fraction] 100 % CHARGE ACCOUNT AUTHORIZER Nedra Perez Work Phone: [facility] 10-05-2023 10:36-0500 Systolic blood pressure 111 mm[Hg] CHARGE ACCOUNT AUTHORIZER Nedra Perez Work Phone: [facility] 09-12-2023 12:52-0500 Body temperature 97.3 [degF] CHARGE ACCOUNT AUTHORIZER Nedra Perez Work Phone: [facility] 09-12-2023 12:52-0500 Body weight 65.31 kg CHARGE ACCOUNT AUTHORIZER Nedra Perez Work Phone: [facility] 09-12-2023 12:52-0500 Diastolic blood pressure 68 mm[Hg] CHARGE ACCOUNT AUTHORIZER Nedra Perez Work Phone: [facility] 09-12-2023 12:52-0500 Heart rate 83 /min CHARGE ACCOUNT AUTHORIZER Nedra Perez Work Phone: [facility] 09-12-2023 12:52-0500 Respiratory rate 16 /min CHARGE ACCOUNT AUTHORIZER Nedra Perez Work Phone: [facility] 09-12-2023 12:52-0500 SaO2% (BldA) [Mass fraction] 100 % CHARGE ACCOUNT AUTHORIZER Nedra Perez Work Phone: [facility] 09-12-2023 12:52-0500 Systolic blood pressure 138 mm[Hg] CHARGE ACCOUNT AUTHORIZER Nedra Perez Work Phone: [facility] 08-28-2023 13:02-0500 Body temperature 98.3 [degF] CHARGE ACCOUNT AUTHORIZER Nedra Perez Work Phone: [facility] 08-28-2023 13:02-0500 Body weight 66.31 kg CHARGE ACCOUNT AUTHORIZER Nedra Perez Work Phone: [facility] 08-28-2023 13:02-0500 Diastolic blood pressure 69 mm[Hg] CHARGE ACCOUNT AUTHORIZER Nedra Perez Work Phone: [facility] 08-28-2023 13:02-0500 Heart rate 90 /min CHARGE ACCOUNT AUTHORIZER Nedra Perez Work Phone: [facility] 08-28-2023 13:02-0500 Inhaled oxygen flow rate 2 L/min CHARGE ACCOUNT AUTHORIZER Nedra Perez Work Phone: [facility] 08-28-2023 13:02-0500 Respiratory rate 20 /min CHARGE ACCOUNT AUTHORIZER Nedra Perez Work Phone: [facility] 08-28-2023 13:02-0500 SaO2% (BldA) [Mass fraction] 100 % CHARGE ACCOUNT AUTHORIZER Nedra Perez Work Phone: [facility] 08-28-2023 13:02-0500 Systolic blood pressure 134 mm[Hg] CHARGE ACCOUNT AUTHORIZER Nedra Perez Work Phone: [facility] 08-22-2023 14:30-0500 Diastolic blood pressure 61 mm[Hg] CHARGE ACCOUNT AUTHORIZER Nedra Perez Work Phone: [facility] 08-22-2023 14:30-0500 Heart rate 80 /min CHARGE ACCOUNT AUTHORIZER Nedra Perez Work Phone: [facility] 08-22-2023 14:30-0500 Inhaled oxygen flow rate 2 L/min CHARGE ACCOUNT AUTHORIZER Nedra Perez Work Phone: [facility] 08-22-2023 14:30-0500 Respiratory rate 20 /min CHARGE ACCOUNT AUTHORIZER Nedra Perez Work Phone: [facility] 08-22-2023 14:30-0500 SaO2% (BldA) [Mass fraction] 100 % CHARGE ACCOUNT AUTHORIZER Nedra Perez Work Phone: [facility] 08-22-2023 14:30-0500 Systolic blood pressure 103 mm[Hg] CHARGE ACCOUNT AUTHORIZER Nedra Perez Work Phone: [facility] 08-22-2023 11:55-0500 Body height 165.1 cm CHARGE ACCOUNT AUTHORIZER Nedra Perez Work Phone: [facility] 08-22-2023 11:55-0500 Body temperature 97.6 [degF] CHARGE ACCOUNT AUTHORIZER Nedra Perez Work Phone: [facility] 08-22-2023 11:55-0500 Body weight 63.5 kg CHARGE ACCOUNT AUTHORIZER Nedra Perez Work Phone: [facility] 08-11-2023 15:18-0500 Diastolic blood pressure 50 mm[Hg] CHARGE ACCOUNT AUTHORIZER Nedra Perez Work Phone: [facility] 08-11-2023 15:18-0500 Heart rate 68 /min CHARGE ACCOUNT AUTHORIZER Nedra Perez Work Phone: [facility] 08-11-2023 15:18-0500 Respiratory rate 16 /min CHARGE ACCOUNT AUTHORIZER Nedra Perez Work Phone: [facility] 08-11-2023 15:18-0500 SaO2% (BldA) [Mass fraction] 100 % CHARGE ACCOUNT AUTHORIZER Nedra Perez Work Phone: [facility] 08-11-2023 15:18-0500 Systolic blood pressure 105 mm[Hg] CHARGE ACCOUNT AUTHORIZER Nedra Perez Work Phone: [facility] 08-11-2023 14:13-0500 Inhaled oxygen flow rate 2 L/min CHARGE ACCOUNT AUTHORIZER Nedra Perez Work Phone: [facility] 08-11-2023 14:00-0500 Body temperature 98 [degF] CHARGE ACCOUNT AUTHORIZER Nedra Perez Work Phone: [facility] 07-31-2023 13:44-0400 Body temperature 97.7 [degF] CHARGE ACCOUNT AUTHORIZER Nedra Perez Work Phone: [facility] 07-31-2023 13:44-0400 Body weight 64.77 kg CHARGE ACCOUNT AUTHORIZER Nedra Perez Work Phone: [facility] 07-31-2023 13:44-0400 Diastolic blood pressure 68 mm[Hg] CHARGE ACCOUNT AUTHORIZER Nedra Perez Work Phone: [facility] 07-31-2023 13:44-0400 Heart rate 83 /min CHARGE ACCOUNT AUTHORIZER Nedra Peerz Work Phone: [facility] 07-31-2023 13:44-0400 Respiratory rate 20 /min CHARGE ACCOUNT AUTHORIZER Nedra Perez Work Phone: [facility] 07-31-2023 13:44-0400 SaO2% (BldA) [Mass fraction] 98 % CHARGE ACCOUNT AUTHORIZER Nedra Perez Work Phone: [facility] 07-31-2023 13:44-0400 Systolic blood pressure 110 mm[Hg] CHARGE ACCOUNT AUTHORIZER Nedra Perez Work Phone: [facility] 06-23-2023 13:38-0400 Body temperature 97.5 [degF] CHARGE ACCOUNT AUTHORIZER Nedra Perez Work Phone: [facility] 06-23-2023 13:38-0400 Body weight 64.95 kg CHARGE ACCOUNT AUTHORIZER Nedra Perez Work Phone: [facility] 06-23-2023 13:38-0400 Diastolic blood pressure 71 mm[Hg] CHARGE ACCOUNT AUTHORIZER Nedra Perez Work Phone: [facility] 06-23-2023 13:38-0400 Heart rate 87 /min CHARGE ACCOUNT AUTHORIZER Nedra Perez Work Phone: [facility] 06-23-2023 13:38-0400 Inhaled oxygen flow rate 2 L/min CHARGE ACCOUNT AUTHORIZER Nedra Perez Work Phone: [facility] 06-23-2023 13:38-0400 Respiratory rate 20 /min CHARGE ACCOUNT AUTHORIZER Nedra Perez Work Phone: [facility] 06-23-2023 13:38-0400 SaO2% (BldA) [Mass fraction] 100 % CHARGE ACCOUNT AUTHORIZER Nedra Perez Work Phone: [facility] 06-23-2023 13:38-0400 Systolic blood pressure 124 mm[Hg] CHARGE ACCOUNT AUTHORIZER Nedra Perez Work Phone: [facility] 06-23-2023 13:21-0400 Body height 165.1 cm CHARGE ACCOUNT AUTHORIZER Nedra Perez Work Phone: [facility] Encounters Encounter Date Encounter Type Care Provider Facility Start: 05-07-2024 ambulatory Aries pedraza II Facility:[facility] Start: 04-23-2024 End: 04-23-2024 ambulatory [facility] Start: 03-29-2024 Registered Recurring CHARGE ACCOUNT AUTHORIZER Nedra Perez Work Phone: [facility] Work Phone: Start: 03-29-2024 End: 03-29-2024 ambulatory CHARGE ACCOUNT AUTHORIZER Nedra Perez Work Phone: [facility] Work Phone: Start: 03-29-2024 End: 03-29-2024 Patient encounter procedure CHARGE ACCOUNT AUTHORIZER Nedra Perez Work Phone: [facility] Work Phone: Start: 01-30-2024 End: 01-30-2024 ambulatory [facility] Start: 12-29-2023 Registered Recurring CHARGE ACCOUNT AUTHORIZER Nedra Perez Work Phone: [facility] Work Phone: Start: 12-29-2023 End: 12-29-2023 ambulatory CHARGE ACCOUNT AUTHORIZER Nedra Perez Work Phone: [facility] Work Phone: Start: 12-29-2023 End: 12-29-2023 Patient encounter procedure CHARGE ACCOUNT AUTHORIZER Nedra Perez Work Phone: [facility] Work Phone: Start: 12-26-2023 End: 12-26-2023 ambulatory [facility] Start: 12-26-2023 End: 12-26-2023 Office outpatient visit 15 minutes Nedra Perez SENIOR SERVICE TECHNICIAN-CHARGE ACCOUNT AUTHORIZER Work Phone: [facility] Internal Medicine - Family Medicine Comment on above: Acute recurrent fron elena sinusitis (Primary Dx); Nausea and vomiting, unspecified vomiting type Start: 11-17-2023 Registered Recurring CHARGE ACCOUNT AUTHORIZER Nedra Perez Work Phone: [facility] Work Phone: Start: 11-17-2023 End: 11-17-2023 ambulatory CHARGE ACCOUNT AUTHORIZER Nedra Perez Work Phone: [facility] Work Phone: Start: 11-17-2023 End: 11-17-2023 Patient encounter procedure CHARGE ACCOUNT AUTHORIZER Nedra Perez Work Phone: [facility] Work Phone: Start: 11-15-2023 External Result Encounter Aries Chavez DO Work Phone: [facility] External Department Unsolicited Start: 11-15-2023 External Result Encounter Aries Chavez DO Work Phone: [facility] External Department Unsolicited Start: 10-26-2023 Registered Recurring CHARGE ACCOUNT AUTHORIZER Nedra Perez Work Phone: [facility] Work Phone: Start: 10-26-2023 End: 10-26-2023 ambulatory CHARGE ACCOUNT AUTHORIZER Nedra Perez Work Phone: [facility] Work Phone: Start: 10-26-2023 End: 10-26-2023 Patient encounter procedure CHARGE ACCOUNT AUTHORIZER Nedra Perez Work Phone: [facility] Work Phone: Start: 10-20-2023 Non-patient / Non-visit CHARGE ACCOUNT AUTHORIZER Fidelina Perez Work Phone: [facility] Work Phone: Start: 10-19-2023 Non-patient / Non-visit CHARGE ACCOUNT AUTHORIZER Fidelina Perez [facility] Start: 10-19-2023 End: 10-24-2023 Evaluation and management of inpatient Marisel Rm Facility:[facility] Start: 10-12-2023 End: 10-12-2023 ambulatory [facility] Start: 10-05-2023 End: 10-05-2023 ambulatory CHARGE ACCOUNT AUTHORIZER Nedra Perez Work Phone: [facility] Work Phone: Start: 10-05-2023 End: 10-05-2023 Registered Recurring CHARGE ACCOUNT AUTHORIZER Nedra Sanchezs Work Phone: [facility] Work Phone: Start: 10-05-2023 End: 10-05-2023 ambulatory CHARGE ACCOUNT AUTHORIZER Nedra Perez Work Phone: [facility] Work Phone: Start: 10-05-2023 End: 10-05-2023 Registered Recurring CHARGE ACCOUNT AUTHORIZER Nedra Perez Work Phone: [facility] Work Phone: Start: 09-12-2023 End: 09-12-2023 ambulatory CHARGE ACCOUNT AUTHORIZER Nedra Perez Work Phone: [facility] Work Phone: Start: 09-12-2023 End: 09-12-2023 Registered Recurring CHARGE ACCOUNT AUTHORIZER Nedra Perez Work Phone: [facility] Work Phone: Start: 08-28-2023 End: 08-28-2023 ambulatory CHARGE ACCOUNT AUTHORIZER Nedra Perez Work Phone: [facility] Work Phone: Start: 08-28-2023 End: 08-28-2023 Registered Recurring CHARGE ACCOUNT AUTHORIZER Nedra Perez Work Phone: [facility] Work Phone: Start: 08-22-2023 End: 08-22-2023 Admission to same day surgery center CHARGE ACCOUNT AUTHORIZER Nedra Perez Work Phone: [facility] Work Phone: Start: 08-22-2023 End: 08-22-2023 ambulatory CHARGE ACCOUNT AUTHORIZER Nedra Sanchezs Work Phone: [facility] Work Phone: Start: 08-11-2023 Registered Recurring CHARGE ACCOUNT AUTHORIZER Nedra Perez Work Phone: [facility] Work Phone: Start: 07-31-2023 End: 07-31-2023 ambulatory CHARGE ACCOUNT AUTHORIZER Nedra Perez Work Phone: [facility] Work Phone: Start: 07-31-2023 End: 07-31-2023 Registered Recurring CHARGE ACCOUNT AUTHORIZER Nedra Perez Work Phone: [facility] Work Phone: Start: 07-26-2023 End: 07-26-2023 ambulatory [facility] Start: 06-23-2023 End: 06-23-2023 ambulatory CHARGE ACCOUNT AUTHORIZER Nedra Perez Work Phone: [facility] Work Phone: Start: 06-23-2023 End: 06-23-2023 Registered Recurring CHARGE ACCOUNT AUTHORIZER Nedra Perez [facility] Phone: [facility] Work Phone: Start: 05-18-2023 End: 05-18-2023 ambulatory [facility] Start: 04-27-2023 ambulatory [place] Facility:Malou Jackson Start: 02-28-2023 End: 03-01-[address] DOCTOR MÁRQUEZ Facility:[facility] Start: 02-09-2023 ambulatory [place] Facility:Mal[facility] Start: 02-07-2023 End: 02-08-[address] DOCTOR MÁRQUEZ Facility:[facility] Start: 01-24-2023 End: 01-25-2023 Evaluation and management of inpatient DR FREDDY BARRAZA Facility:[facility] Procedures Date Procedure Procedure Detail Performing Clinician Start: 03-14-2024 Computed tomography of abdomen and pelvis with contrast CHARGE ACCOUNT AUTHORIZER Nedra Perez Work Phone: Start: 03-14-2024 CT of thorax with contrast CHARGE ACCOUNT AUTHORIZER Nedra Perez Work Phone: Start: 12-26-2023 Adult depression scr eening assessment Nedra Perez SENIOR SERVICE TECHNICIAN-CHARGE ACCOUNT AUTHORIZER Work Phone: Start: 11-15-2023 Complete blood count with white cell differential, automated Aries Chavez DO Work Phone: Start: 10-31-2023 Duplex scan of lower limb veins CHARGE ACCOUNT AUTHORIZER Nedra Perez Work Phone: Start: 10-24-2023 Stool culture Aries castro II Comment on above: Performed By: #### G I PROFILE, STL ####[facility] ,#### CUSTOOL, CDT ####[facility] [place] [address] [place] Start: 10-19-2023 Antibody screen Aries Chavez II Comment on above: Result Comment: PERF ORMED BY:[address] [place], [place] [id number] MEDICAL DIRECTORSTEFANO HOLT M.D. Start: 09-12-2023 Urine culture CHARGE ACCOUNT AUTHORIZER Ndera Perez Work Phone: Start: 08-22-2023 Ultrasonic guidance for needle biopsy CHARGE ACCOUNT AUTHORIZER Nedra Perez Work Phone: Start: 07-31-2023 Urine culture CHARGE ACCOUNT AUTHORIZER Nedra Perez Work Phone: Start: 01-25-2023 Insertion of Infusio n Device into Right Femoral Vein, Percutaneous Approach DR FREDDY BARRAZA Start: 01-25-2023 Insertion of Endotra cheal Airway into Trachea, Via Natural or Artificial Opening DR FREDDY BARRAZA Plan of Treatment Date Care Activity Detail Author Start: 12-25-2024 Adult BMI Screening Adult BMI Screening [facility] Start: 12-25-2024 Depression Screening Depression Screening [facility] Start: 12-25-2024 Fall Risk Screening Fall Risk Screening [facility] Start: 12-25-2024 Tobacco Screening Tobacco Screening [facility] Start: 06-22-2024 Medicare Annual Wellness Visit Medicare Annual Wellness Visit [facility] Start: 03-29-2024 [facility] Start: 03-29-2024 [facility] Start: 03-06-2024 [facility] Start: 01-18-2024 [facility] Start: 12-29-2023 [facility] Start: 12-28-2023 Erythropoietin (EPO) [Units/volume] in Serum or Plasma [facility] Start: 12-19-2023 [facility] Start: 12-07-2023 [facility] Start: 11-28-2023 [facility] Start: 11-17-2023 [facility] Start: 11-13-2023 [facility] Start: 10-26-2023 [facility] Start: 10-24-2023 [facility] Start: 10-24-2023 [facility] Start: 10-22-2023 Referral to palliative care physician [facility] Start: 10-20-2023 Administration of prophylactic treatment [facility] Start: 10-19-2023 Hospital admission [facility] Start: 10-19-2023 Referral to oncologist [facility] Start: 10-05-2023 [facility] Start: 10-04-2023 Adrenocorticotropic hormone measurement [facility] Start: 09-14-2023 [facility] Start: 09-14-2023 [facility] Start: 08-22-2023 [facility] Start: 08-22-2023 Ultrasonic guidance for needle biopsy [facility] Start: 08-11-2023 [facility] Start: 08-04-2023 [facility] Start: 07-31-2023 [facility] Start: 06-02-2023 Influenza vaccination Influenza Vaccine [facility] Start: 1973 Administration of varicella zoster vaccine Zoster (Shingles) Vaccine (1 of 2) [facility] Start: 1973 DTaP,Tdap and Td Vaccines (1 - Tdap) DTaP,Tdap and Td Vaccines (1 - Tdap) [facility] Start: 1972 Adult BMI Follow Up Plan Adult BMI Follow Up Plan [facility] Adrenocorticotropic hormone measurement [facility] Adrenocorticotropic hormone measurement [facility] Adrenocorticotropic hormone measurement [facility] Adrenocorticotropic hormone measurement [facility] Bacteria identified in Stool by Culture [facility] Bacterial cytolethal distending toxin cdt gene [Presence] in Unspecified specimen by BJORN with probe detection [facility] Bilirubin measurement, urine [facility] Campylobacter coli+jejuni+upsaliensis DNA [Presence] in Stool by BJORN with non-probe detection [facility] Color of Urine [facility] Comprehensive metabo lic 1999 panel - Serum or Plasma [facility] Comprehensive metabo lic 1999 panel - Serum or Plasma [facility] Comprehensive metabo lic 1999 panel - Serum or Plasma [facility] Comprehensive metabo lic 1999 panel - Serum or Plasma [facility] Comprehensive metabo lic 1999 panel - Serum or Plasma Comprehensive metabolic panel Lab STAT 11/15/2023 9:16 AM [facility] Work Phone: Comprehensive metabo lic 1999 panel - Serum or Plasma [facility] Comprehensive metabo lic 1999 panel - Serum or Plasma [facility] Comprehensive metabo lic 1999 panel - Serum or Plasma [facility] Cortisol Cortisol Lab STA T 11/15/2023 9:[address] Abdomen and Pelvi s W contrast IV [facility] CT Abdomen and Pelvi s W contrast IV [facility] CT Chest W contrast IV [facility] CT guided biopsy [facility] Detection of hemoglobin [facility] EKG 12 channel panel [facility] Erythropoietin (EPO) [Units/volume] in Serum or Plasma [facility] Escherichia coli enteropathogenic eae gene [Presence] in Stool by BJORN with non-probe [facility] Escherichia coli enterotoxigenic ltA+st1a+st1b genes [Presence] in Stool by BJORN with [facility] Escherichia coli O15 7 DNA [Presence] in Stool by BJORN with non-probe detection [facility] Escherichia coli Stx 1 and Stx2 toxin stx1+stx2 genes [Presence] in Stool by BJORN with non-probe detection [facility] Glucose [Mass/volume ] in Urine by Test strip [facility] Hepatic function panel [facility] Infectious agent gen otype identification [facility] Measurement of keton es in urine using dipstick [facility] Patient Education [facility] Kidney Biopsy [facility] Work Phone: Patient referral [facility] Work Phone: Plesiomonas shigello ides DNA [Presence] in Stool by BJORN with non-probe detection [facility] Protein measurement, urine [facility] Salmonella enterica+ bongori DNA [Presence] in Stool by BJORN with non-probe detection [facility] Shigella species+EIE C invasion plasmid antigen H ipaH gene [Presence] in Stool by BJORN [facility] Urinalysis, specific gravity measurement [facility] Urine dipstick for nitrite F [facility] Urine dipstick for s pecific gravity [facility] Urine pH test [facility] Urobilinogen concent ration, test strip measurement [facility] US Lower extremity v ein - bilateral [facility] Vibrio cholerae DNA [Presence] in Stool by BJORN with non-probe detection [facility] Vibrio cholerae+parahaemolyticus+vul nificus DNA [Presence] in Stool by BJORN with non-probe detection [facility] Immunizations Immunization Date Immunization Notes Care Provider Lawrence garner 07-27-2021 Influenza Vaccine, Quadrivalent, Adjuvanted Nedra Perez SENIOR SERVICE TECHNICIAN-CHARGE ACCOUNT AUTHORIZER Work Phone: [facility] 07-27-2021 influenza virus vaccine, unspecified formulation Nedra Julio SENIOR SERVICE TECHNICIAN-CHARGE ACCOUNT AUTHORIZER Work Phone: [facility] 09-21-2020 COVID-19, mRNA, LNP- S, PF, 100mcg/0.5mL Dose Nedra Perez SENIOR SERVICE TECHNICIAN-CHARGE ACCOUNT AUTHORIZER Work Phone: [facility] Payers Date Payer Category Payer Self-pay 2019 Medicare [id number] 2019 Unknown [id number] 2019 Unknown [id number] 1960 Medicare [id number] 1959 Unknown [id number] 1954 Unknown [id number] 2.16.8 [id number] 1954 Unknown [id number] 2.16.8 [id number] 1954 Unknown [id number] 2.16.84 [id number] 1954 Unknown [id number] 2.16.84 [id number] 1954 Unknown [id number] 2.16.84 [id number] 1954 Unknown [id number] 2.16.8 [id number] 1954 Unknown [id number] 2.16.8 [id number] Unknown [id number] 2.16.8 [id number] Unknown [id number] 2.16.8 [id number] Unknown [id number] 2.16.8 [id number] Social History Date Type Detail Facility Start: 06-23-2023 End: 10-24-2023 Tobacco smoking status NHIS Ex-smoker (finding) [facility] Start: 1955 Sex Assigned At Female [facility] Tobacco smoking stat us NHIS Tobacco smoking consumption unknown [facility] Start: 1955 Sex Assigned At Not on file [facility] Start: 06-22-2023 End: 12-26-2023 Gender identity Not on file [facility] History of tobacco use Current smoker [facility] History of tobacco use Cigarette Smoker P [facility] Start: 02-07-2023 Tobacco use and exposure Smokeless tobacco non-user [facility] Start: 12-26-2023 Alcohol intake Lifetime non-drinker (finding) [facility] Start: 06-22-2023 End: 12-26-2023 History of Social function [facility] Do you belong to any clubs or organizations such as yarsanism groups, unions, fraternal or athletic groups, or school groups? No [facility] Are you now , , , , never or living with a partner? [facility] How often to you hav e a drink containing alcohol? Never [facility] How many standard dr inks containing alcohol do you have on a typical day? Patient does not drink [facility] How hard is it for y ou to pay for the very basics like food, housing, medical care, and heating Not very hard [facility] Do you feel stress - tense, restless, nervous, or anxious, or unable to sleep at night because your mind is troubled all the time - these days [OSQ] Only a little [facility] Goals Date Patient Goal Desired Activity /State Clinical Notes 01-25-2023 to 04-23-2024 Note Date & Type Note Facility 04-23-2024 Note Patient here for 6 m o follow up chronic systolic heart failure, CAD, and hypertension. She is unable to tell if she has chest pain or not. She says she thinks it may be muscular. States her SOB remains unchanged since last visit in Oct 2023. Since then she's started a thyroid medication and has gained about 30#. Review of Systems Constitutional: Positive for malaise/fatigue and weight gain (28# since Oct 2023). Cardiovascular: Positive for dyspnea on exertion. Respiratory: Positive for shortness of breath. All other systems reviewed and are negative. [facility] 04-23-2024 Note Cardiovascular Medic [facility] SUBJECTIVE Chief Complaint Patient presents with Congestive Heart Failure Coronary Artery Disease Perla Ibarra is a 68 y.o. female here for follow-up. She is accompanied with her partner Angela. HPI PMHx: nonischemic cardiomyopathy, heart failure improved ejection fraction with EF 45% (01/27/2023) to 55-60% (05/09/2023), mild non-obstructive coronary artery disease on angiography (01/26/2023), tobacco use, probable COPD, and renal cell carcinoma She started Inlyta for her kidney cancer - she became severely ill and has since stopped it. She has gained 30# since starting synthroid. She denies worsening dyspnea, LE edema, orthopnea. Denies CP, palpitations. Patient Active Problem List Diagnosis Acute coronary syndrome (CMS/HCC) Acute respiratory failure with hypoxia and hypercapnia (CMS/HCC) Parainfluenza infection Acute systolic heart failure (CMS/HCC) COPD (chronic obstructive pulmonary disease) (CMS/HCC) Myocardial infarction ([facility]/HCC) Renal cell carcinoma of right kidney (CMS/HCC) Renal mass Acute kidney injury due to nephrotoxicity (CMS/HCC) Cancer related pain Chronic hypoxic respiratory failure (CMS/HCC) Constipation Counseling regarding advanced care planning and goals of care Elevated lactic acid level Encounter for antineoplastic chemotherapy High risk medications (not anticoagulants) long-term use Hyponatremia Intractable nausea and vomiting Iron deficiency anemia Nonischemic cardiomyopathy (CMS/HCC) Past Medical History: Diagnosis Date Cancer (CMS/HCC) CHF (congestive heart failure) (CMS/HCC) COPD (chronic obstructive pulmonary disease) (CMS/HCC) NSTEMI (non-ST elevated myocardial infarction) ([facility]/HCC) PNA (pneumonia) Tuberculosis Family History Problem Relation Name Age of Onset Tuberculosis Mother Heart attack Brother Heart failure Maternal Grandmother Heart attack Maternal Grandfather Social History Tobacco Use Smoking status: Former Types: Cigarettes Quit date: 01/26/2023 Years since quittin.2 Smokeless tobacco: Never Substance Use Topics Alcohol use: Never Drug use: Never Allergies Allergen Reactions Erythromycin Unknown Per report from roderick DE LA O Constitutional: Positive for malaise/fatigue and weight gain (28# since Oct 2023). Cardiovascular: Positive for dyspnea on exertion. Respiratory: Positive for shortness of breath. All other systems reviewed and are negative. OBJECTIVE Visit Vitals BP 112/70 (BP Location: Right arm, Patient Position: Sitting) Pulse 57 Ht 1.651 m (5' 5 ) Wt 77.6 kg (171 lb) SpO2 98% BMI 28.46 kg/m??? Smoking Status Former BSA 1.89 m??? Medications: Current Outpatient Medications: albuterol 90 mcg/actuation inhaler, every 4 (four) hours., Disp: , Rfl: aspirin 81 mg EC [...] every evening for HEARTBURN, Disp: , Rfl: levothyroxine (Synthroid, Levoxyl) 50 mcg tablet, Take 50 mcg by mouth in the morning., Disp: , Rfl: metoprolol succinate XL (Toprol-XL) 25 mg 24 hr tablet, Take 0.5 tablets (12.5 mg) by mouth once daily as directed. Do not crush or chew., Disp: 45 tablet, Rfl: 3 pembrolizumab (Keytruda) 25 mg/mL chemo injection, Infuse into a venous catheter 1 (one) time., Disp: , Rfl: sacubitril-valsartan (Entresto) 24-26 mg tablet, Take 1 tablet by mouth in the morning and at bedtime., Disp: 180 tablet, Rfl: 3 spironolactone (Aldactone) 25 mg tablet, Take 0.5 tablets (12.5 mg) by mouth once daily as directed., Disp: 45 tablet, Rfl: 3 loratadine (Claritin) 10 mg tablet, Take 10 mg by mouth if needed each day., Disp: , Rfl: pantoprazole (ProtoNix) 40 mg EC tablet, Take 40 mg by mouth in the morning., Disp: , Rfl: tiotropium-olodateroL (Stiolto Respimat) 2.5-2.5 mcg/actuation mist inhaler, 1 (one) time each day at the same time., Disp: , Rfl: Physical Exam Vitals reviewed. Constitutional: Appearance: Normal [...] sounds are normal. Palpations: Abdomen is soft. Musculos (more content not included)... [facility] 12-29-2023 Progress note Note Date/Time December 29, 2023 8:50am [place] [address] Cancer Center Note Signed Patient: Perla Ibarra MR# : [id number] : 1955 Acct:[id number] Age/Sex: 68 / F Type: REG AMB Date of Service: 12/29/23 Copies to: DEIDRE Barrett~ Assessment & Plan A/P (1) Clear cell renal cell carcinoma: Plan Right renal Cancer, [id number] cm with extension into right renal vein and inferiorvena cava.. 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 Has seen Dr. Ann in [place] for consideration of nephrectomy. Determined not a [...] reconsider ablative, surgical approaches down the line. Began pembrolizumab 200mg every 3 weeks on 09/14/23., Began axitinib with cycle2. After only a few days of axitinib she ended up in the hospital with abdominal complaints and severe fatigue and some confusion. Repeat imaging in december 2023 notes proably 40% reduction in tumor size. Plan continue single agent pembro and dscan again in 4 months. around april 2024. reserve resection for nonresponse or intolerance to pembrolizumab. Iron deficiency anemia d/t chronic blood loss. Also with malabsorption She received IV Injectafer x 2 early Aug 2023 Hyponatremia - likely secondary to malignancy - mild- asymptomatic; will monitor for now Hyper and now hypothyroid. will start Synthroid 50mcg po daily at visit 12/29/23. Patient Instructions: f/u in [address] c/a/p prior to f/u. treat in 3 wks, then q6wks. cbc, cmp, tsh, t4 on treatment days. acth prior to next treatment. am cortisol also. CHEMO PLAN Treatment Plan Pembrolizumab 200mg Every 3 Weeks Clinical Indication Locoregional Recurrence Cycle Number Last Admin 6 of 6 Cycle Day Next Admin No Active Chemotherapy History of Present Illness HPI 68-year-old female on treatment for unresectable clear-cell renal cell carcinoma, eosinophilic variant. Right renal mass was 15 x 9 x 12 cm with extension into the right renal vein and inferior vena cava. Comorbidities include nonischemic cardiomyopathy, reduced ejection fraction, coronary artery disease, tobacco use, COPD, renal cell carcinoma. She requires 2 L of oxygen chronically. Outpatient medications include Lexapro, aspirin, atorvastatin, Entresto, spironolactone, metoprolol, escitalopram, and Xanax as needed. Primary patient of Nedra Perez nurse practitioner in [place]. Also follows with Dr. Cervantes and Dr. Quach of urology. She had a hospitalization in December 2022 and ultimately was life flighted to [facility] for a myocardial infarction and ischemic heart [...] a right-sided IVCD. No definitive retroperitoneal lymphadenopathy. --Follow-up MRI of the abdomen without IV contrast [...] and lower lungs left greater than right. -- Started pembrolizumab 200 mg every 3 weeks with first cycle 09/14/2023: Cycle2- 10/05/2023. Her axitinib did not arrive until October 11, 2023. She was taking axitinib 5 mg twice daily but on about day 3 or 4 of therapy she started developing severe headaches, left lower quadrant pain, intractable nausea and vomiting and decided to stop medication 2 days ago. She presented to [facility] where she was hydrated and subsequently transferred to [facility]. --She specifically denies any anginal chest pain, but does note some dyspnea that started a few days after starting the axitinib. She notes that she was shaking all over but did not fall to the ground or lose consciousness therefore it was not felt to be a seizure. 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 -- At [facility] she was noted to have white blood cell count of 11,200, serum creatinine had worsened to 1.7 (baseline 0.8) she had severe hyponatremia with sodium of 120 (baseline 130). Lactic acid low at 4.7. Troponin high at 182. EKG with T wave abnormalities in V2 and V3. Heart rate would increase to 130 bpm with episodes of vomiting in the ER. She was medicated with Valium. 10/26/2023: Perla is here for interval follow up/follow up to inpatient stay.She was hospitalized at [facility] from 10/19/2023-10/25/2023 for headache, abdominal pain, hyponatremia, renal failure - felt to be related to initiation of Axitinib therapy in combination with her Pembrolizumab. She was discharged home yesterday and is due for Cycle 3 Pembrolizumab today; she was seen and evaluatedlast by Dr. Chavez 2 days ago on 10/24/2023. There are no plans to re-initiateher oral Axitinib therapy due to untoward side effects. Currently, she is doing okay but notes new onset bilateral lower extremity edema (right >left). She apparently did not have any of this going on while in the hospital and she did not have any imaging of her leg in regards to ultrasound. She also notes some pain in the right lower extremity and inability to bear weight. Of note, her tumor is involving the same side of her body - with her renal cell carcinoma. Denies fever/chills, headache has resolved; she is eating better since she was discharged home from the hospital. Plan: - proceed with Cycle 3 Pembrolizumab today. - order bilateral lower extremity ultrasound to rule out DVT. - no plans to restart Axitinib therapy. - see back in 3 weeks with next treatment vs 6 weeks given her recent decline inperformance status and hospitalization. 11/17/23 She is doing much better today. She is getting stronger. when she got out of the hospital she could not get into the van or into her house without significant assistance. She is concerned about dry eyes blurred vision. Her strength is much better and is able to manageadls most of the time. She continues pembrolizumab. She has had a headache for a few days. 12/29/[address] chest abdomen and pelvis from December 19, 2023 notes interval decrease in the size of the previously identified right renal mass measuring 6.5x 5.8 x 7.8 cm. She does have persistent extension of the right renal vein and a portion of the inferior vena cava. No other signs or symptoms of metastatic disease. No bony disease noted. tolerating pembrolizumab well overall. She is complaining she lost her mechanism to say she is full, she continues to eat and is gaining weight. Intake Vitals/Pain Assessment 12/29/23 08:52 Weight 68.492 kg BP 124/68 Blood Pressure Location Lt brachial Position Sitting Temp 98.2 F Temp Source Temporal Pulse 87 Pulse Source NIBP Respiration 18 Pulse Oximetry (%) 99 Oxygen Delivery Method nasal canula Oxygen Flow Rate 2 Are you having pain? No Intake Visit Reasons: 6 wk f/u with scans at [place], Clear cell renal cell carcinoma Accompanied by: Friend Allergies erythromycin base Adverse Reaction (Verified 11/17/23 10:42) Diarrhea - Last Reconciled 12/29/23 by Elayne Taylor aspirin 81 mg PO DAILY atorvastatin 20 mg PO QHS escitalopram oxalate 5 mg PO QAM famotidine 20 mg PO DAILY metoprolol succinate ER 25 mg PO DIRECTED ondansetron 4 mg PO Q6H PRN oxycodone 2.5 mg (1/2 x 5 mg) PO Q3HR PRN 6 days pantoprazole 40 mg PO DAILY polyethylene glycol 3350 (HealthyLax) 17 grams PO DAILY sacubitril-valsartan 24-26 mg (Entresto) 1 tab PO BID sennosides (Senna Laxative) 8.6 mg PO BID PRN spironolactone 12.5 mg PO DIRECTED PHQ-2/9 In last 2 wks how often bothered by any of these problems? Little interest or pleasure in doing things: not at all Feeling down, depressed, or hopeless: not at all PHQ-2 Total Score: 0 Gastrointestinal Is the patient taking opioids for pain control?: No Bowel Protocol for Opioids Given: No Bowel Pattern: Regular Bowel Movement Aid(s): Stool Softener Falls Fall Precaution Measures Taken: Patient in chair Nurse's Note: Patient is here for a 6 week follow up with [facility] labs and outside imaging for review. Has treatment today. [facility] Medical History Medical History Hyponatremia Chronic hypoxic respiratory failure 2 L Oxygen via NC at all times. 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 Maternal Grandfather Brain tumor Social History Social History Smoking status: Former smoker Problems where you live?: No known problems Physical Exam EXAM ECOG PS:2 General : patient is alert and oriented to person place and time, no acute distress. Neck: no JVD or thyromegaly. Lymph: no cervical, supraclavicular, axillary adenopathy. Heart: regular rate and rhythm no murmurs rubs or gallops. Abdomen: soft, nontender,, nondistended, no hepatosplenomegaly. Lungs: clear to auscultation bilaterally. No wheezes, rales, rhonchi. Extremities: no clubbing cyanosis Results - [facility] (Med Onc) LAB RESULTS Corrected WBC 7.6 X10E3/uL (3.8-11.6) 12/28/23 12:44 Hgb 11.4 g/dL (11.8-15.4) L 12/28/23 12:44 Hct 34.9 % (34.0-46.4) 12/28/23 12:44 MCV 84.1 fl (80-100) 12/28/23 12:44 RDW 18.2 % (11.9-15.3) H 12/28/23 12:44 Plt Count 344 x10E3/uL (150-450) 12/28/23 12:44 Sodium 128 mmol/L (136-145) L 12/28/23 12:44 Potassium 4.8 mmol/L (3.5-5.1) 12/28/23 12:44 BUN 14 mg/dL (7-25) 12/28/23 12:44 Creatinine 0.77 mg/dL (0.60-1.20) 12/28/23 12:44 Glucose 95 mg/dL (70-100) 12/28/23 12:44 Est GFR (CKD-EPI) > 60.0 mL/Min 12/28/23 12:44 Calcium 9.5 mg/dL (8.6-10.3) 12/28/23 12:44 Total Bilirubin 0.4 mg/dl (0.3-1.0) 12/28/23 12:44 AST 25 U/L (13-39) 12/28/23 12:44 ALT 23 U/L (7-52) 12/28/23 12:44 Alkaline Phosphatase 93 U/L (34-104) 12/28/23 12:44 Iron 144 ug/dL (50-212) 12/28/23 12:44 Iron Saturation 46.3 % (20-50) 12/28/23 12:44 Ferritin 397.8 ng/mL (11.0-306.8) H 12/28/23 12:44 Total Protein 7.8 gm/dL (6.4-8.9) 12/28/23 12:44 Albumin 3.8 gm/dL (3.5-5.7) 12/28/23 12:44 Lactate Dehydrogenase 135 U/L (140-271) L 12/28/23 12:44 Dictated By: Aries Chavez II, DO DD/ 0849 Signed By: <Electronically signed by Aries Chavez II, DO> 12/29/23 0945 [facility] Work Phone: 1(437) 741-311103-26-2024 History of Present illness Narrative* Nedra Perez, SENIOR SERVICE TECHNICIAN-CHARGE ACCOUNT AUTHORIZER - 12/26/2023 3:00 PM EDT Subjective Patient ID: Perla Ibarra is a 68 y.o. female. She has been ill with her sinus infection for about a week Her sinus drainage has been green Low grade fever Sweats and chills Sinus pressure Pressure in the left ear Persistent cough Negative covid test Hard to breath thru her nasal passages with her oxygen She also does need a refill of her zofran which she takes with her chemo for nausea and vomiting The following portions of the patient's history were reviewed and updated as appropriate: allergies, current medications, past family history, past medical history, past social history, past surgicalhistory, problem list, and medication reconciliation was completed including current medication andpost discharge medication. Review of Systems Constitutional: Positive for chills, fatigue and fever. HENT: Positive for congestion, rhinorrhea, sinus pressure and sinus pain. Eyes: Negative. Respiratory: Positive for cough. Gastrointestinal: Positive for nausea and vomiting. Endocrine: Negative. Genitourinary: Negative. Musculoskeletal: Positive for arthralgias and myalgias. Allergic/Immunologic: Negative. Neurological: Negative. Hematological: Negative. Psychiatric/Behavioral: Negative. Objective Physical Exam Vitals and nursing note reviewed. Constitutional: Appearance: She is ill-appearing. HENT: Head: Normocephalic. Right Ear: Tympanic membrane, ear canal and external ear normal. Left Ear: Tympanic membrane, ear canal and external ear normal. Nose: Congestion and rhinorrhea present. Comments: Swollen erythematous with purulent rhinorhea, oxygen in place Eyes: Conjunctiva/sclera: Conjunctivae normal. Neck: Vascular: No carotid bruit. Cardiovascular: Rate and Rhythm: Normal rate and regular rhythm. Heart sounds: Normal heart sounds. No murmur heard. Pulmonary: Effort: Pulmonary effort is normal. No respiratory distress. Comments: Breath sounds clear but somewhat diminished Musculoskeletal: Cervical back: Neck supple. No tenderness. Comments: No edema Lymphadenopathy: Cervical: No cervical adenopathy. Skin: General: Skin is warm and dry. Neurological: Mental Status: She is alert and oriented to person, place, and time. Gait: Gait abnormal. Comments: Using a walker Psychiatric: Speech: Speech normal. Behavior: Behavior normal. Cognition and Memory: Cognition normal. Judgment: Judgment normal. Assessment/Plan Perla was seen today for nasal congestion. Diagnoses and all orders for this visit: Acute recurrent frontal sinusitis - amoxicillin-pot clavulanate (AUGMENTIN) 875-125 mg per tablet; Take 1 tablet by mouth in the morning and 1 tablet before bedtime. Do all this for 7 days. - predniSONE (DELTASONE) 20 mg tablet; Take 1 tablet (20 mg total) by mouth in the morning for 7 days. Nausea and vomiting, unspecified vomiting type - ondansetron ODT (ZOFRAN ODT) 4 mg disintegrating tablet; Dissolve 1 tablet (4 mg total) on tongueevery 8 (eight) hours as needed for nausea or vomiting. Will treat her sinus infection with augmentin and prednisone Will provide her zofran for her chemo treatments She has f/u with oncology later this week KAVITA Watson 12/26/23 1726 documented in this encounterBrightlook HospitalFragegg01-11-2024 NotePatient here for 6 mo follow up CAD, chronic systolic heart failure, and hypertension. She denies chest pain, palpitations, and lightheadedness. Taking a new chemo pill now for renal cell carcinoma. Review of Systems Constitutional: Positive for malaise/fatigue. Cardiovascular: Positive for dyspnea on exertion. All other systems reviewed and are negative.[facility] 10-12-2023 NoteCardiovascular Medicine [facility] SUBJECTIVE Chief Complaint Patient presents with [...] Allergen Reactions Erythromycin Unknown Per report from rmgisel JAYLYN Constitutional: Positive for malaise/fatigue. Cardiovascular: Positive for [...] (H) 01/30/2023 10/04/2023 Gl (more content not included)...[facility]12-12-2023 Progress note Author Nedra Fiorerosalia [facility] September 12, 2023 4:38pm Note Date/Time September 12, 2023 2:13pm [facility] [place] [address] Hem/Onc Follow Up Note - OP Signed Patient: Perla Ibarra MR# : [id number] : 1955 Acct:[id number] Age/Sex: 68 / F Type: REG RCR Copies to: Nedra Perez, DEIDRE SELF,REFERRAL Aries Chavez II, DO~ Date of Service: 09/12/2023 Time of Service: 14:12 - Assessment & Plan (1) Renal mass Plan: 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 Right renal mass, [id number] cm with extension into right renal vein and inferior vena cava.. Has seen Dr. Ann in [place] for consideration of nephrectomy. 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 Also follows with Dr. Cervantes and Dr. Quach of urology. She had a hospitalization in December 2022 and ultimately was life flighted to [facility] for a myocardial infarction and ischemic heart [...] for coordination of care (as documented) and [id number] counseling of patient and/or family. 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 - Family History Family History: Family History [...] By: <Electronically signed by CHAD Moon> 09/12/23 1634 [facility] Work Phone: 1(741) 978-971312-05-2023 Progress note Author Aries Chavez [facility] September 05, 2023 11:33am Note Date/Time August 28, 2023 1:16pm [facility] [place] [address] Hem/Onc Follow Up Note - OP Signed Patient: Perla Ibarra MR# : [id number] : 1955 Acct:[id number] Age/Sex: 68 / F Type: REG RCR Copies to: DEIDRE Barrett SELF,REFERRAL ~ Date of Service: 08/28/2023 Time of Service: 13:15 - Assessment & Plan (1) Renal mass Plan: 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 Right renal mass, 15*9*12 cm with extension into right renal vein and inferior vena cava.. Has seen Dr. Ann in [place] for consideration of nephrectomy. 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 Also follows with Dr. Cervantes and Dr. Quach of urology. She had a hospitalization in December 2022 and ultimately was life flighted to [facility] for a myocardial infarction and ischemic heart [...] for coordination of care (as documented) and [id number] counseling of patient and/or family. 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 - Family History Family History: Family History [...] by Aries Chavez II, DO> 09/05/23 1133 [facility] Work Phone: 1(241) 585-599410-30-2023 Progress note Author Aries Chavez [facility] July 31, 2023 2:29pm Note Date/Time July 31, 2023 1 :59pm [facility] [place] [id number] Hem/Onc Follow Up Note - OP Signed Patient: Perla Ibarra MR# : [id number] : 1955 Acct:[id number] Age/Sex: 67 / F Type: REG RCR Copies to: Nedra Perez, DEIDRE SELF,REFERRAL ~ Date of Service: 07/31/2023 Time of Service: 13:59 - Assessment & Plan (1) Renal mass Plan: Right renal mass, 15*9*12 cm with extension into right renal vein and inferior vena cava.. Likely a neoplasm. Has seen Dr. Ann in [place] for consideration of nephrectomy. No definitive retroperitoneal [...] get images uploaded to our system from [employer]. iv iron soon. cbc, cmp, iron studies [...] patient of Nedra Trujillo nurse practitioner in [place]. Also follows with Dr. Cervantes and Dr. Quach of urology. She had a hospitalization in December 2022 and ultimately was life flighted to [facility] for a myocardial infarction and ischemic heart [...] for coordination of care (as documented) and [id number] counseling of patient and/or family. 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 Maddie Ann MD[facility]10-10-2023 Progress note Author Aries Chavez [facility] July 11, 2023 1:21pm Note Date/Time June 23, 2023 1:54pm [facility] [place] [id number] Hem/Onc Follow Up Note - OP Signed Patient: Perla Ibarra MR# : [id number] : 1955 Acct:[id number] Age/Sex: 67 / F Type: REG RCR Copies to: DEIDRE Barrett SELF,REFERRAL ~ Date of Service: 06/23/2023 Time of Service: 13:54 - Assessment & Plan (1) Renal mass Plan: Right renal mass, 12 x 8 x 8 cm with extension into right renal vein and inferior vena cava.. Likely a neoplasm. She will be referred for consideration of nephrectomy. I have communicated with Dr. Ann who is now with [facility]. No definitive retroperitoneal lymphadenopathy. Extensive reticulonodular opacities [...] MRI and ct images to here from [facility]. refer to [place] [facility]. f/u with me in a month (after imaging). get an CT a/p with contrast in a month at [facility]. cbc, cmp, iron studies b12, foalte, [...] patient of Nedra Trujillo nurse practitioner in [place]. Also follows with Dr. Cervantes and Dr. Quach of urology. She had a hospitalization in December 2022 and ultimately was life flighted to [facility] for a myocardial infarction and ischemic heart [...] for coordination of care (as documented) and [id number] counseling of patient and/or family. 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 Update: 02/07/2023 She was transferred from [facility] to [facility] for evaluation of acute respiratory failure in [...] Allergen Reactions Erythromycin Unknown Per report from [place] Medications Current Outpatient Medications: atorvastatin (Lipitor) 20 [...] morning., Disp: , Rfl (more content not included)...[facility] 01-25-2023 NotePROCEDURE: XR CHEST 1 [...] Electronically authenticated by: ANTONY VELASQUEZ Date: 2023-01-25 15:11[facility] information available[facility] Work Phone: Evaluation note* Diagnosis Onset Date Resolution Status Renal mass acute [facility] Work Phone: Evaluation note* Diagnosis Onset Date Resolution Status Clear cell renal cell carcinoma acute Encounter for antineoplastic chemotherapy acute Hyponatremia acute Iron deficiency anemia acute [facility] Work Phone: Evaluation note* Diagnosis Onset Date Resolution Status Clear cell renal cell carcinoma acute Encounter for antineoplastic chemotherapy acute Hyponatremia acute Iron deficiency anemia acute Acute kidney injury due to nephrotoxicity acute Cancer related pain acute Chronic hypoxic respiratory failure acute Clear cell renal cell carcinoma acute Constipation acute COPD (chronic obstructive pulmonary disease) acute Counseling regarding advance d care planning and goals of care acute Elevated lactic acid level a cute Elevated transaminase measurement acute Elevated troponin acute High risk medications (not anticoagulants) long-term u se acute Hyponatremia acute Intractable nausea and vomiting acute Iron deficiency anemia acute Nonischemic cardiomyopathy a cute [facility] Work Phone: Evaluation note* Diagnosis Onset Date Resolution Status Acute kidney injury due to nephrotoxicity acute Cancer related pain acute Chronic hypoxic respiratory failure acute Clear cell renal cell carcinoma acute Constipation acute COPD (chronic obstructive pulmonary disease) acute Counseling regarding advance d care planning and goals of care acute Elevated lactic acid level a cute Elevated transaminase measurement acute Elevated troponin acute High risk medications (not anticoagulants) long-term u se acute Hyponatremia acute Intractable nausea and vomiting acute Iron deficiency anemia acute Nonischemic cardiomyopathy a cute Clear cell renal cell carcinoma acute Clear cell renal cell carcinoma acute Encounter for antineoplastic chemotherapy acute Hyponatremia acute Iron deficiency anemia acute [facility] Work Phone: Evaluation note* Diagnosis Onset Date Resolution Status Cancer related pain acute Chronic hypoxic respiratory failure acute Clear cell renal cell carcinoma acute COPD (chronic obstructive pulmonary disease) acute Elevated transaminase measurement acute Elevated troponin acute High risk medications (not a nticoagulants) long-term use acute Iron deficiency anemia acute Nonischemic cardiomyopathy a cute Acute kidney injury due to nephrotoxicity resolved Constipation resolved Counseling regarding advance d care planning and goals of care resolved Elevated lactic acid level r esolved Hyponatremia resolved Intractable nausea and vomiting resolved Clear cell renal cell carcinoma acute Clear cell renal cell carcinoma acute Clear cell renal cell carcinoma acute Encounter for antineoplastic chemotherapy acute Iron deficiency anemia acute Hyponatremia resolved [facility] Work Phone: Evaluation note* Diagnosis Acute recurrent frontal sinusitis- Primary Nausea and vomiting, unspecified vomiting type documented [facility] this [facility] Diagnosis Onset Date Resolution Status Cancer related pain acute Chronic hypoxic respiratory failure acute Clear cell renal cell carcinoma acute COPD (chronic obstructive pulmonary disease) acute Elevated transaminase measurement acute Elevated troponin acute High risk medications (not a nticoagulants) long-term use acute Iron deficiency anemia acute Nonischemic cardiomyopathy a cute Acute kidney injury due to nephrotoxicity resolved Constipation resolved Counseling regarding advance d care planning and goals of care resolved Elevated lactic acid level r esolved Hyponatremia resolved Intractable nausea and vomiting resolved Clear cell renal cell carcinoma acute Clear cell renal cell carcinoma acute Clear cell renal cell carcinoma acute Clear cell renal cell carcinoma acute Encounter for antineoplastic chemotherapy acute Iron deficiency anemia acute Hyponatremia resolved [facility] Work Phone: Evaluation note* Diagnosis Onset Date Resolution Status Clear cell renal cell carcinoma acute Encounter for antineoplastic chemotherapy acute Iron deficiency anemia acute Hyponatremia resolved [facility] Work Phone: Hospital Discharge instructions Additional Instructions Continue home oxygen as directed.[facility] Work Phone: InstructionsNot on filedocumented in this encounter [facility] SlidePay SystemProgress note Author Aries Chavez [facility] July 31, 2023 2:29pm Note Date/Time July 31, 2023 1 :59pm [facility] [place] [address] Hem/Onc Follow Up Note - OP Signed Patient: Perla Ibarra MR# : [id number] : 1955 Acct:[id number] Age/Sex: 67 / F Type: REG RCR Copies to: DEIDRE Barrett SELF,REFERRAL ~ Date of Service: 07/31/2023 Time of Service: 13:59 - Assessment & Plan (1) Renal mass Plan: Right renal mass, 15*9*12 cm with extension into right renal vein and inferior vena cava.. Likely a neoplasm. Has seen Dr. Ann in [place] for consideration of nephrectomy. No definitive retroperitoneal [...] get images uploaded to our system from [employer]. iv iron soon. cbc, cmp, iron studies [...] patient of Nedra Trujillo nurse practitioner in [place]. Also follows with Dr. Cervantes and Dr. Quach of urology. She had a hospitalization in December 2022 and ultimately was life flighted to [facility] for a myocardial infarction and ischemic heart [...] for coordination of care (as documented) and [id number] counseling of patient and/or family. 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 Also follows with Dr. Cervantes and Dr. Quach of urology. She had a hospitalization in December 2022 and ultimately was life flighted to [facility] for a myocardial infarction and ischemic heart [...] 10 point review of systems is negative. 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 - Family History Family History: Family History [...] 2.5 mcg-olodaterol 2.5 mcg/actuation mist for inhalation (MashworkolJumpLinc Respimat) 2 puff inhalation DAILY 07/31/23 [History [...] chronic oxygen) Pain: occasional flank pain - 12/09 General : patient is alert and oriented [...] % (Auto) 61.7, Lymph % (Auto) 21.7, [place] % (Auto) 11.5, Eos % (Auto) 2.8, Baso % (Auto) 2.3, Nucleat RBC Rel Count 0.1, Neut # (Auto) 3.6, Lymph # (Auto) 1.2, [place] # (Auto) 0.7, Eos # (Auto) 0.2, Baso # (Auto) 0.1 10/04/23 14:53: ACTH 25.4 10/04/23 14:53: Free T4 1.00, TSH 3rd Generation 1.03, Total Cortisol 12.2 Assessment and Plan (1) 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 Right renal mass, [id number] cm with extension into right renal vein and inferior vena cava.. Has seen Dr. Ann in [place] for consideration of nephrectomy. Determined not a [...] for coordination of care (as documented) and [id number] counseling of patient and/or family. Dictated By: Vannessa Perales APRN DD/ [id number] Signed By: <Electronically signed by CHAD Perales> 10/05/23 1407 [facility] Work Phone: Progress note Author Aries Chavez [facility] March 29, 2024 10:13am Note Date/Time March 29, 2024 9:43 [place] [address] Cancer Center Note Signed Patient: Perla Ibarra MR# : [id number] : 1955 Acct:[id number] Age/Sex: 68 / F Type: REG AMB Date of Service: 03/29/24 Copies to: DEIDRE Barrett~ Assessment & Plan A/P Medications: New levothyroxine 50 mcg PO DAILY 30 caps 2RF Discontinued levothyroxine Discontinued Reason: Dose Change take 1 tablet by mouth daily 90 tabs 3RF Patient Instructions: f/u in 6 wks. restart keytruda. check LFTs in 3 wks and prior to f/u in 6 wks. drop sythroid to 50 riase lexapro to 10. cbc, cmp, tsh, t4 prior to f/u. CHEMO PLAN Treatment Plan Pembrolizumab 400mg Every 6 Weeks [Holding February 27] Clinical Indication Locoregional Recurrence Cycle Number Last Admin 2 of 6 Cycle Day Next Admin -2 of 42 No Active Chemotherapy History of Present Illness HPI Assessment/Plan. Right renal Cancer, [id number] cm with extension into right renal vein and inferiorvena cava.. 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 Has seen Dr. Ann in [place] for consideration of nephrectomy. Determined not a [...] reconsider ablative, surgical approaches down the line. Began pembrolizumab 200mg every 3 weeks on 09/14/23., Began axitinib with cycle2. After only a few days of axitinib she ended up in the hospital with abdominal complaints and severe fatigue and some confusion. Repeat imaging in december 2023 notes proably 40% reduction in tumor size. continued keytruda. reserve resection for nonresponse or intolerance to pembrolizumab. She had spike in LFTs in january 2024, we held keytruda following this. last KEYTRUDA 01/18/24 at visit 03/29/24 her LFTs resolved, her tumor a bit smaller, she would like to rechallenge KEYTRUDA, she turned down reconsultation for surgical intervention. Iron deficiency anemia d/t chronic blood loss. Also with malabsorption She received IV Injectafer x 2 early Aug 2023 Hyponatremia - likely secondary to malignancy - mild- asymptomatic; will monitor for now Hyper and now hypothyroid. will start Synthroid 50mcg po daily at visit 12/29/23. raised to 75mcg and she did not feel well, will drop back to 50 at vist in late march 2024 depression raise lexapro to 10mg daily Initial: 5 to 10 mg once daily; may gradually increase dose based on response and tolerability in 5 to 10 mg increments at intervals >= week to a maximum of 20 mg once daily PHYSICAL EXAMINATION ECOG PS:0 General : patient is alert and oriented to person place and time, no acute distress. Neck: no JVD or thyromegaly. Lymph: no cervical, supraclavicular, axillary adenopathy. Heart: regular rate and rhythm no murmurs rubs or gallops. Abdomen: soft, nontender,, nondistended, no hepatosplenomegaly. Lungs: clear to auscultation bilaterally. No wheezes, rales, rhonchi. Extremities: no clubbing cyanosis History of Present Illness HPI 68-year-old female on treatment for unresectable clear-cell renal cell carcinoma, eosinophilic variant. Right renal mass was 15 x 9 x 12 cm with extension into the right renal vein and inferior vena cava. Comorbidities include nonischemic cardiomyopathy, reduced ejection fraction, coronary artery disease, tobacco use, COPD, renal cell carcinoma. She requires 2 L of oxygen chronically. Outpatient medications include Lexapro, aspirin, atorvastatin, Entresto, spironolactone, metoprolol, escitalopram, and Xanax as needed. Primary patient of Nedra Kuns nurse practitioner in [place]. Also follows with Dr. Cervantes and Dr. Quach of urology. She had a hospitalization in December 2022 and ultimately was life flighted to [facility] for a myocardial infarction and ischemic heart [...] a right-sided IVCD. No definitive retroperitoneal lymphadenopathy. --Follow-up MRI of the abdomen without IV contrast [...] and lower lungs left greater than right. -- Started pembrolizumab 200 mg every 3 weeks with first cycle 09/14/2023: Cycle2- 10/05/2023. Her axitinib did not arrive until October 11, 2023. She was taking axitinib 5 mg twice daily but on about day 3 or 4 of therapy she started developing severe headaches, left lower quadrant pain, intractable nausea and vomiting and decided to stop medication 2 days ago. She presented to [facility] where she was hydrated and subsequently transferred to [facility]. --She specifically denies any anginal chest pain, but does note some dyspnea that started a few days after starting the axitinib. She notes that she was shaking all over but did not fall to the ground or lose consciousness therefore it was not felt to be a seizure. 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 -- At [facility] she was noted to have white blood cell count of 11,200, serum creatinine had worsened to 1.7 (baseline 0.8) she had severe hyponatremia with sodium of 120 (baseline 130). Lactic acid low at 4.7. Troponin high at 182. EKG with T wave abnormalities in V2 and V3. Heart rate would increase to 130 bpm with episodes of vomiting in the ER. She was medicated with Valium. 10/26/2023: Perla is here for interval follow up/follow up to inpatient stay.She was hospitalized at [facility] from 10/19/2023-10/25/2023 for headache, abdominal pain, hyponatremia, renal failure - felt to be related to initiation of Axitinib therapy in combination with her Pembrolizumab. She was discharged home yesterday and is due for Cycle 3 Pembrolizumab today; she was seen and evaluated last by Dr. Chavez 2 days ago on 10/24/2023. There are no plans to re-initiate her oral Axitinib therapy due to untoward side effects. Currently, she is doing okay but notes new onset bilateral lower extremity edema (right >left). She apparently did not have any of this going on while in the hospital and she did not have any imaging of her leg in regards to ultrasound. She also notes some pain in the right lower extremity and inability to bear weight. Of note, her tumor is involving the same side of her body - with her renal cell carcinoma. Denies fever/chills, headache has resolved; she is eating better since she was discharged home from the hospital. Plan: - proceed with Cycle 3 Pembrolizumab today. - order bilateral lower extremity ultrasound to rule out DVT. - no plans to restart Axitinib therapy. - see back in 3 weeks with next treatment vs 6 weeks given her recent decline inperformance status and hospitalization. 11/17/23 She is doing much better today. She is getting stronger. when she got out of the hospital she could not get into the van or into her house without significant assistance. She is concerned about dry eyes blurred vision. Her strength is much better and is able to manageadls most of the time. She continues pembrolizumab. She has had a headache for a few days. 12/29/[address] chest abdomen and pelvis from December 19, 2023 notes interval decrease in the size of the previously identified right renal mass measuring 6.5x 5.8 x 7.8 cm. She does have persistent extension of the right renal vein and a portion of the inferior vena cava. No other signs or symptoms of metastatic disease. No bony disease noted. tolerating pembrolizumab well overall. She is complaining she lost her mechanism to say she is full, she continues to eat and is gaining weight. 03/29/24 she is doing well overall. she had some issues on the higher dose sythroid at 75mcg, she felt weak and shaky. She continues 75mcg. will change to 50mcg. tolerating pembrolizumab well overall. had to hold last dose for LFTs elevated. she has been very anxious, she w ould like to raise lexapro to 10. ct imaging with further shrinkage of tumor. Intake Vitals/Pain Assessment 03/29/24 09:50 Weight 76.657 kg BP 137/75 Blood Pressure Location Lt brachial Position Sitting Temp 98.1 F Temp Source Temporal Pulse 65 Pulse Source NIBP Respiration 20 Pulse Oximetry (%) 100 Oxygen Delivery Method nasal canula Oxygen Flow Rate 2 Are you having pain? No Intake Visit Reasons: Review scans 03.14.24 Allergies erythromycin base Adverse Reaction (Verified 11/17/23 10:42) Diarrhea - Last Reconciled 03/29/24 by Elayne Tyalor aspirin 81 mg PO DAILY atorvastatin 20 mg PO QHS docusate sodium (Colace) 100 mg PO DAILY escitalopram oxalate 5 mg PO QAM famotidine 20 mg PO DAILY levothyroxine take 1 tablet by mouth daily metoprolol succinate ER 25 mg PO DIRECTED ondansetron 4 mg PO Q6H PRN oxycodone 2.5 mg (1/2 x 5 mg) PO Q3HR PRN 6 days pantoprazole 40 mg PO DAILY polyethylene glycol 3350 (HealthyLax) 17 grams PO DAILY sacubitril-valsartan 24-26 mg (Entresto) 1 tab PO BID sennosides (Senna Laxative) 8.6 mg PO BID PRN spironolactone 12.5 mg PO DIRECTED Gastrointestinal Is the patient taking opioids for pain control?: No Bowel Protocol for Opioids Given: No Bowel Pattern: Constipated Bowel Movement Aid(s): Stool Softener Falls Fall Precaution Measures Taken: Patient in chair Nurse's Note: Patient is here for a 3 month follow up with labs and imaging for review. [facility] Medical History Medical History Hyponatremia Chronic hypoxic respiratory failure 2 L Oxygen via NC at all times. 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 Maternal Grandfather Brain tumor Social History Social History Smoking status: Former smoker Problems where you live?: No known problems Results - Cancer [facility]tr (Med Onc) LAB RESULTS Corrected WBC 5.8 X10E3/uL (3.8-11.6) 03/26/24 10:13 Hgb 12.2 g/dL (11.8-15.4) 03/26/24 10:13 Hct 36.6 % (34.0-46.4) 03/26/24 10:13 MCV 89.7 fl (80-100) 03/26/24 10:13 RDW 13.4 % (11.9-15.3) 03/26/24 10:13 Plt Count 235 x10E3/uL (150-450) 03/26/24 10:13 Sodium 131 mmol/L (136-145) L 03/26/24 10:13 Potassium 4.9 mmol/L (3.5-5.1) 03/26/24 10:13 BUN 20 mg/dL (7-25) 03/26/24 10:13 Creatinine 0.83 mg/dL (0.60-1.20) 03/26/24 10:13 Glucose 95 mg/dL (70-100) 03/26/24 10:13 Est GFR (CKD-EPI) > 60.0 mL/Min 03/26/24 10:13 Calcium 9.3 mg/dL (8.6-10.3) 03/26/24 10:13 Total Bilirubin 0.6 mg/dl (0.3-1.0) 03/26/24 10:13 AST 22 U/L (13-39) 03/26/24 10:13 ALT 17 U/L (7-52) 03/26/24 10:13 Alkaline Phosphatase 123 U/L (34-104) H 03/26/24 10:13 Total Protein 7.0 gm/dL (6.4-8.9) 03/26/24 10:13 Albumin 3.9 gm/dL (3.5-5.7) 03/26/24 10:13 Dictated By: Aries Chavez II, DO DD/ [id number] Signed By: <Electronically signed by Aries Chavez II, DO> 03/29/24 1013 [facility] Work Phone: Summary Purpose Family History No Family History Records Found Relationship Condition Age at Onset Recorded Date/T jeffrey Not Specified Lymphoma Unknown Not Specified Tuberculosis Unknown Multiple sclerosis Unknown Relationship Condition Age at Onset Recorded Date/T jeffrey Not Specified Tuberculosis Unknown Multiple sclerosis Unknown brother Lymphoma Unknown Not Specified Neoplasm of brain Unknown Relationship Condition Age at Onset Recorded Date/T jeffrey mother Tuberculosis Unknown Multiple sclerosis Unknown brother Lymphoma Unknown maternal grandfather Neoplasm of brain Unknown Advance Directives No Advanced Directives Records [...] for antineoplastic chemotherapy Hyponatremia Iron deficiency anemia Chief Complaint N25.89 Renal Mass N28.89 Hyponatremia Amb Documentation Reason for Visit Clear cell renal cayden l carcinoma Encounter for antineoplastic chemotherapy Hyponatremia Iron deficiency anemia Acute kidney injury due to nephrotoxicity Cancer related pain Chronic hypoxic respiratory failure Clear cell renal cell carcinoma Constipation COPD (chronic obstructive pulmonary disease) Counseling regarding advanced care planning and goals of care Elevated lactic acid level Elevated transaminase measurement Elevated troponin High risk medications (not anticoagulants) long-term use Hyponatremia Intractable nausea and vomiting Iron deficiency anemia Nonischemic cardiomyopathy Chief Complaint N25.89 Hyponatremia Amb Documentation Renal Mass N28.89 Reason for Visit Acute kidney injury due to nephrotoxicity Cancer related pain Chronic hypoxic respiratory failure Clear cell renal cell carcinoma Constipation COPD (chronic obstructive pulmonary disease) Counseling regarding advanced care planning and goals of care Elevated lactic acid level Elevated transaminase measurement Elevated troponin High risk medications (not anticoagulants) long-term use Hyponatremia Intractable nausea and vomiting Iron deficiency anemia Nonischemic cardiomyopathy 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 Encounter for antineoplastic chemotherapy Hyponatremia Iron deficiency anemia Chief Complaint N25.89 Hyponatremia Amb Documentation Renal Mass N28.89 Reason for Visit Cancer related pain Chronic hypoxic respiratory failure Clear cell renal cell carcinoma COPD (chronic obstructive pulmonary disease) Elevated transaminase measurement Elevated troponin High risk medications (not anticoagulants) long-term use Iron deficiency anemia Nonischemic cardiomyopathy Acute kidney injury due to nephrotoxicity Constipation Counseling regarding advanced care planning and goals of care Elevated lactic acid level Hyponatremia Intractable nausea and vomiting 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 Encounter for antineoplastic chemotherapy Iron deficiency anemia Hyponatremia Chief Complaint Hyponatremia Amb Documentation 6 wk f/u with scans at [facility] Renal Mass N28.89 Reason for Visit Cancer related pain Chronic hypoxic respiratory failure Clear cell renal cell carcinoma COPD (chronic obstructive pulmonary disease) Elevated transaminase measurement Elevated troponin High risk medications (not anticoagulants) long-term use Iron deficiency anemia Nonischemic cardiomyopathy Acute kidney injury due to nephrotoxicity Constipation Counseling regarding advanced care planning and goals of care Elevated lactic acid level Hyponatremia Intractable nausea and vomiting 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 Encounter for antineoplastic chemotherapy Iron deficiency anemia Hyponatremia Chief Complaint Review scans 06.13.2 4 Renal Mass N28.89 Reason for Visit Clear cell renal cayden l carcinoma Encounter for antineoplastic chemotherapy Iron deficiency anemia Hyponatremia Additional Source Comments INFORMATION SOURCE (unrecogn ized section and content) DATE CREATED AUTHOR [facility] DATE CREATED AUTHOR AUTHOR'S ORGANIZ ATION 03/13/2023 [facility] DATE CREATED AUTHOR AUTHOR'S ORGANIZ ATION 01/31/2024 [facility] DATE CREATED AUTHOR AUTHOR'S ORGANIZ ATION 04/26/2024 [facility] DATE CREATED AUTHOR AUTHOR'S ORGANIZ ATION 05/09/2024 [facility] Care Teams (unrecognized sec tion and content) Team Status: Active Member Role Status Dates Nedra R Kuns , CHARGE ACCOUNT AUTHORIZER Primary Care Provider Active Team Status: Inactive Member Role Status Dates Nedra Perez , CHARGE ACCOUNT AUTHORIZER Primary Care Provider Active S tart: March 29, 2024 End: March 29, 2024 Aries Chavez II, DO Attending Provider Active Start: March 29, 2024 End: March 29, 2024 Team Status: Active Member Role Status Dates Aries Chavez II, Attending Provider Active Start: March 29, 2024 Nedra Sancheztony , [facility] Primary Care Provider Active S tart: March 29, 2024 Referral Self Referring Provider Active Start: Thomas alexandra 2023 Team Status: Active Member Role Status Dates Nedra Perez , [facility] Primary Care Provider Active S tart: October 19, 2023 Noe Jacobs DO Admit Provider , Attending Provider, Other Provider Active Start: October 19, 2023 Marisel Abdalla MD Other Provider Active Start: Aryankelly bermudez 2023 Aries Chavez II, DO Other Provider Active Start: October 19, 2023 Vannessa Perales APRN Other Provider Active Start: October 19, 2023 Tosin Lima MD Other Provider Active Start: J anuary 2023 Ileana Joshi MD Other Provider Active Start: J anuary 2023 Zoie Jansen Other Provider Active Start: Octuar y 2023 Ariana Bell MD Other Provider Active Start: October 19, 2023 Liam Senior MD Other Provider Active Sta rt: October 19, 2023 Nedra Moon APRN Other Provider Active Start: October 19, 2023 [address] Other Provider Active Start: October 19, 2023 Lorrie Butler Other Provider Active Start: Efraín woods 2023 Deann Marx MD Other Provider Active Sta rt: October 19, 2023 Phi Adamson MD Other Provider Active Start: October 19, 2023 Freddy Wright DO Attending Provider, Other Provider Active Start: October 19, 2023 Ave Jacobs APRN Other Provider Active Start: October 19, 2023 Aracelis Baldwin DO Other Provider Active Sta rt: October 19, 2023 Mj Hills MD Other Provider Active Start: October 19, 2023 Team Status: Active Member Role Status Dates Nedra Mcclendon Julio , CHARGE ACCOUNT AUTHORIZER Primary Care Provider Active S tart: October 20, 2023 Marisel Abdalla MD Attending Provider Active Start: October 20, 2023 Team Status: Inactive Member Role Status Dates Nedra Perez , CHARGE ACCOUNT AUTHORIZER Primary Care Provider Active S tart: October 26, 2023 End: October 26, 2023 Vannessa Perales APRN Attending Provider Active Start: October 26, 2023 End: October 26, 2023 Team Status: Inactive Member Role Status Dates Nedra Mcclendon Julio , CHARGE ACCOUNT AUTHORIZER Primary Care Provider Active S tart: November 17, 2023 End: November 17, 2023 Aries Chavez II, DO Attending Provider Active Start: November 17, 2023 End: November 17, 2023 Team Status: Inactive Member Role Status Dates Nedra Mcclendon Danieltony , CHARGE ACCOUNT AUTHORIZER Primary Care Provider Active S tart: December 29, 2023 End: December 29, 2023 Aries Chavez II, DO Attending Provider Active Start: December 29, 2023 End: December 29, 2023 Team Status: Active Member Role Status Dates Aries Chavez II, DO Attending Provider Active Start: December 29, 2023 Nedra Mcclendon Julio , CHARGE ACCOUNT AUTHORIZER Primary Care Provider Active S tart: December 29, 2023 Referral Self Referring Provider Active Start: M 2023 Team Status: Inactive Member Role Status Dates Nedra Sancheztony , CHARGE ACCOUNT AUTHORIZER Primary Care Provider Active S tart: August 22, 2023 End: August 22, 2023 Aries Chavez II, DO Attending Provider Active Start: August 22, 2023 End: August 22, 2023 Team Status: Active Member Role Status Dates Aries Chavez II, DO Attending Provider Active Start: October 05, 2023 Nedra Perez , CHARGE ACCOUNT AUTHORIZER Primary Care Provider Active S tart: October 05, 2023 Referral Self Referring Provider Active Start: J pilo2023 Team Status: Active Member Role Status Dates Aries Chavez II, DO Attending Provider Active Nedra Perez , CHARGE ACCOUNT AUTHORIZER Primary Care Provider Active Referral Self Referring Provider Active Team Status: Inactive Member Role Status Dates Nedra Danelle Julio , CHARGE ACCOUNT AUTHORIZER Primary Care Provider Active Aries Chavez II, DO Attending Provider Active Team Status: Active Member Role Status Dates Aries Chavez II, DO Attending Provider Active Start: October 26, 2023 DEIDRE Barrett Primary Care Provider Active S tart: October 26, 2023 Referral Self Referring Provider Active Start: J anuary 2023 Team Status: Active Member Role Status Dates Aries Thomas Chavez II, DO Attending Provider Active Start: November 17, 2023 DEIDRE Barrett Primary Care Provider Active S tart: November 17, 2023 Referral Self Referring Provider Active Start: F ebruary 2023 It Infrastructure Engineer Relationship Specialty Start Date End Date DanieltonyNedra APRN-DEIDRE [address] [place] [address] PCP - General Internal Medicine 02/09/23 Goals (unrecognized section and content) Goals may be documented in a n alternate sectionGoals may be documented in an alternate sectionNot on filedocumented as of this encounter Reason for Visit (unrecogniz ed section and content) Reason Comments Nasal Congestion No covid FOR RECORDS PERTAINING TO PATIENTS WHO ARE [...] BE BASED ON THE PRIMARY CLINICAL RECORDS. [employer] provides no warranty or guarantee of the accuracy or completeness of information in this document.
--- NOTE | 2024-05-09 15:00 | CA_ITS ---
Patient Name: PRACHI WARD MR#: [id number] : 1955 Exam Date: 05/09/2024 Ordering Doctor: PEDRO LUIS FRENCH CNP ECHOCARDIOGRAM REPORT PROCEDURE: CA ECHO DOPPLER COMPLETE INDICATIONS: Heart failure with reduced ejection fraction, COPD, DE COMPARISON: None. DESCRIPTION: COMPLETE ECHOCARDIOGRAM Real-time transthoracic echocardiography with 2D, M-mode, spectral and color flow Doppler performed. QUALITY: Technical quality was good. LEFT VENTRICLE: Normal chamber size. Normal left ventricular wall thickness. Normal systolic function. LV EF: Normal left ventricular ejection fraction, (55%). DIASTOLIC: Diastolic function is indeterminate. ATRIAL SEPTUM: Visually appears intact. LEFT ATRIUM: Severe dilatation. RIGHT ATRIUM: Moderate dilatation. RIGHT VENTRICLE: Normal chamber size. Normal systolic function. TRICUSPID VALVE: Normal mobility and thickness. No stenosis with no regurgitation. Unable to assess right-sided pressures due to lack of measurable tricuspid regurgitation. MITRAL VALVE: Normal mobility and thickness. No evidence of mitral valve stenosis. Mild mitral annular calcification. Trivial mitral regurgitation. AORTIC VALVE: Normal trileaflet appearance. Thickened aortic valve. Normal leaflet mobility. No evidence of aortic valve stenosis. No aortic regurgitation. AORTIC ROOT: Normal diameter and appearance. Ascending aorta is normal in size. PULMONIC VALVE: Normal thickness and mobility. No stenosis. No regurgitation. PERICARDIUM: No evidence of pericardial effusion. IVC: Collapses with inspirations. IVC is normal in size. PLEURA: CONCLUSION: 1. Normal left ventricular size and systolic function. LVEF is 55%. 2. Normal right ventricular size and systolic function. 3. Severe left atrial dilatation. 4. No significant valvular dysfunction. 5. Unable to assess right-sided pressures due to lack of measurable tricuspid regurgitation. 6. No pericardial effusion. Adult Echocardiography Procedure Report Left Ventricle LVEDD (3.7 - 5.6 cm): 4.32 cm LVESD (2.2 - 4.0 cm): 2.84 cm LVIVS thickness (0.6 - 1.2 cm): 1.03 cm LVPW thickness (0.5 - 1.0 cm): 1.00 cm e': 0.12 m/s E - e': 9.75 LVOT Max Gradient: 4.11 mm[Hg] LVOT Area (cm2): 1.01 m/s Peak Velocity (LVOT): 1.01 m/s Mean Velocity (LVOT): 0.66 m/s LVOT Diameter 2.25 cm Left Atrium LA Volume Index (2D A2C): 49.68 ml/m2 Left Atrium Systolic Dimension: 2.93 cm Mitral Valve MV E to A Ratio: 1.34 Mitral Valve A-Wave Peak Velocity: 0.86 m/s Mitral Valve E-Wave Peak Velocity: 1.15 m/s Right Ventricle Aorta AO Root Diam: 3.17 cm Ascending Ao Diam: 2.85 cm Aortic Valve AoV Area (Peak Justo): 4.13 cm2, 4.13 cm2 AoV Area (VTI): 3.48 cm2, 3.48 cm2 Peak Velocity(Antegrade Flow): 0.97 m/s Peak Gradient(Antegrade Flow): 3.79 mm[Hg] Mean Velocity(Antegrade Flow): 0.65 m/s Mean Gradient(Antegrade Flow): 1.93 mm[Hg] Velocity Time Integral: 26.23 cm Tricuspid Valve Pulmonic Valve Mean Gradient: 1.62 mm[Hg] Mean Velocity: 0.60 m/s Peak Velocity: 0.85 m/s, 0.75 m/s Peak Gradient: 2.87 mm[Hg], 2.27 mm[Hg] Right Atrium Right Atrium Systolic Pressure: 33.64 ml, 33.64 ml Dictated by: Francisco Regalado M.D. on 05/09/2024 at 20:09 Approved by: Francisco Regalado M.D. on 05/09/2024 at 20:14
== END 2024-05-09 14:28 | disposition home or self-care (01) ==
LOC: CARD 14:28
PROVIDERS: PCP Nurse Practitioner Family; Visit Provider Nurse Practitioner Family
DX: I50.23 Acute on chronic systolic (congestive) heart failure (principal)
CPT/HCPCS: 93306

== ENCOUNTER 2024-06-18 13:02 | Outpatient (OUT) | payer MEDICARE, OTHER, SELFPAY ==
--- NOTE | 2024-06-18 | CT_ITS ---
The [address] [address] Patient Name: PRACHI WARD MRN: [id number] date: 1955 Sex: F Assigned Patient Location: CT Current Patient Location: Accession/Order Number: [id number] Exam Date: 06/18/2024 14:25 Report Date: 06/19/2024 07:40 At the request of: BRIAN CLEMENT Procedure: CT abdomen pelvis w con EXAM: CT abdomen pelvis w con HISTORY: Clear cell carcinoma of neoplasm C64.9 COMPARISON: CT abdomen and pelvis 12/19/2023.. TECHNIQUE: Following intravenous administration of 100 cc of Omnipaque 350, axial soft tissue windows of the abdomen and pelvis were performed with coronal and sagittal reformats. CT dose reduction technique was used including Automated Exposure Control. Findings: Mild bibasilar atelectasis. Moderate sized hiatal hernia. ABDOMEN: The liver, spleen, pancreas, and adrenal glands are unremarkable. Redemonstrated is no evidence within the gallbladder. There is mild gallbladder wall thickening likely relates to lack of distention. No significant adjacent stranding of the fat. No renal stones or collecting system dilatation. There are bilateral renal low-attenuation lesions, small to characterize. Off the lower pole of the left kidney is a complex renal mass measuring approximately 4.6 x 3.9 x 0.1 cm. This is markedly smaller when compared to the prior study. The bilateral ureters are nondilated. There are colonic diverticula. Otherwise, the bowel is unremarkable without evidence of wall thickening or obstruction. The appendix is nondilated. The aorta is normal caliber. Mild atherosclerotic disease. No enlarged abdominal lymph nodes or free abdominal fluid. Pelvis: Unremarkable bladder. The uterus is present and unremarkable within the limits of CT. No enlarged pelvic lymph nodes or free pelvic fluid. No aggressive sclerotic or lytic osseous lesions. Multilevel degenerative spondylosis. CT/CT abdomen pelvis w con IMPRESSION: 1. Significant interval decrease in size in the previously identified right renal mass. 2. No metastases. 3. Other nonemergent findings, as described above. Electronically authenticated by: FOX BALLARD Date: 06/19/2024 07:40
--- NOTE | 2024-06-18 | CT_ITS ---
The [address] [address] Patient Name: PRACHI WARD MRN: [id number] date: 1955 Sex: F Assigned Patient Location: CT Current Patient Location: CT Accession/Order Number: [id number] Exam Date: 06/18/2024 14:25 Report Date: 06/20/2024 07:27 At the request of: BRIAN CLEMENT Procedure: CT chest w con EXAMINATION: CT chest w con HISTORY: Encounter for imaging study to restage neoplasm COMPARISON: No relevant comparison available. TECHNIQUE: Multi-planar CT images were created with IV contrast. Axial, Coronal, and Sagittal images. Dose reduction techniques were achieved by using automated exposure control and/or adjustment of mA and/or kV according to patient size and/or use of iterative reconstruction technique. FINDINGS: LUNGS: Moderate diffuse centrilobular emphysema with an upper lobe predominance. Subpleural interlobular septal thickening. Scattered patchy parenchymal opacities and subcentimeter pulmonary nodules the largest nodule is identified in the right lower lobe axial image #60 measuring 6.8 mm in diameter, stable from the prior exam PLEURA: No mass, effusion, or pneumothorax. VASCULATURE: Normal postcontrast opacification of the central pulmonary artery with no filling defects to suggest a pulmonary embolus CATALINA: No mass or adenopathy. MEDIASTINUM: No mass or adenopathy. CARDIAC: No enlargement or pericardial effusion Coronary arteries: Absent calcifications AORTA: No aortic aneurysm or dissection. Calcific atherosclerosis CHEST WALL: No mass or axillary adenopathy. BONES: No bone lesion or fracture. LIMITED ABDOMEN: Moderate sized hiatal hernia OTHER: Negative. CT/CT chest w con IMPRESSION: Significant progression of interstitial changes Stable subcentimeter pulmonary nodules Electronically authenticated by: PEDRO PABLO DOWNS Date: 06/20/2024 07:27
== END 2024-06-18 13:03 | disposition home or self-care (01) ==
LOC: CT 13:02
PROVIDERS: PCP Nurse Practitioner Family; Visit Provider Nurse Practitioner Gerontology
DX: R91.8 Other nonspecific abnormal finding of lung field (principal); C64.9 Malignant neoplasm of unspecified kidney, except renal pelvis; Z01.89 Encounter for other specified special examinations; K44.9 Diaphragmatic hernia without obstruction or gangrene
CPT/HCPCS: 71260; 74177; Q9967

== ENCOUNTER 2024-08-02 08:54 | Outpatient (OUT) | payer MEDICARE, OTHER, SELFPAY ==
[2024-08-02 09:09] LABS: Basophils Absolute Auto 0.1 10^3/uL (0.0-0.1); Basophils Percent Auto 1.7 % (0.2-2.0); Eosinophils Absolute Auto 0.8 10^3/uL (0.0-0.7); Eosinophils Percent Auto 11.9 % (0.9-7.0); Hematocrit 33.9 % (36.0-48.0); Hemoglobin 10.9 g/dL (12.0-16.0); Immature Granulocytes Abs Auto 0.01 10^3/uL (0.00-0.03); Immature Granulocytes Pct Auto 0.2 % (0.0-0.5); Lymphocytes Absolute Auto 1.4 10^3/uL (1.2-3.8); Lymphocytes Percent Auto 21.9 % (20.5-60.0); Mean Corpuscular HGB Conc 32.2 g/dL (29.9-35.2); Mean Corpuscular Hemoglobin 29.5 pg (26.7-34.0); Mean Corpuscular Volume 91.6 fL (81.0-99.0); Mean Platelet Volume 9.9 fL (9.5-13.5); Monocytes Absolute Auto 0.7 10^3/uL (0.3-0.8); Monocytes Percent Auto 11.4 % (1.7-12.0); Neutrophils Absolute Auto 3.4 10^3/uL (1.4-6.5); Neutrophils Percent Auto 52.9 % (43.0-75.0); Platelet Count 252 10^3/uL (150-450); Red Cell Distribution Width 12.8 % (11.0-15.0); White Blood Count 6.5 10^3/uL (4.0-11.0)
--- OUTSIDE RECORDS SUMMARY | 2024-08-02 09:13 | XMS_ITS | CCD ---
Author Organization [facility] Care Team Providers Care Babbitt Spinner Name Role Phone Chantal Park Attending Unavailable NEDRA KIM Referring Unavailable Chantal Park Attending Unavailable CHRISTI, [...] Unavailable DO Aries Chavez II Attending Provider Daniel [facility] Primary Care Provider [phone] Self, Referral Referring Provider Unavailable DO Aries Chavez II [facility] [phone] Self, Referral Referring Provider Unavailable DO Aries Chavez II [facility] [phone] Self, Referral Referring Provider [facility] DO Aries Chavez II Attending Provider Self, Referral Referring Provider Unavailable Self, Referral Referring Provider Unavailable Self, Referral Referring Provider Unavailable Self, Referral Referring Provider Unavailable Self, Referral Referring Provider Unavailable Unavailable Primary Care Provider Unavailabl e Self, Referral Referring Provider Unavailable Kuns ACCOUNTS PAYABLE OR RECEIVABLE CLERK-[facility], Nedra Woodruff Primary Care Provider Adamowicz II, DO Aries Guzman Attending Provider [facility], [facility] Primary Care Provider Self, Referral Referring Provider Unavailable KUNNawaf, NEDRA WOODRUFF Attending Unavailable KUNS, NEDRA WOODRUFF Referring Unavailable KUNNawaf, NEDRA WOODRUFF Primary Care Unavailable KUNNawaf, NEDRA WOODRUFF Attending Unavailable KUNS, NEDRA WOODRUFF Referring Unavailable KUNS, NEDRA WOODRUFF Primary Care Unavailable Adamowicz II, DO Aries Guzman Attending Provider [phone] [facility], [facility] Primary Care Provider Self, Referral Referring Provider Unavailable Adamowicz II, DO Aries Guzman Attending Provider [phone] [facility], [facility] Primary Care Provider Self, Referral Referring Provider Unavailable PEDRO LUIS FRENCH Attending Unavailable PEDRO LUIS FRENCH Attending Unavailable MADDIE ANN Attending Unavailable Adamowicz II, DO Aries Guzman Attending Provider [facility], [facility] Primary Care Provider Self, Referral Referring Provider Unavailable Adamowicz II, DO Aries Guzman Attending Provider [facility], [facility] Primary Care Provider Self, Referral Referring Provider Unavailable Adamowicz II, Aries Guzman Admitting Unavaila ble Adamowicz II, Aries Guzman Attending Unavaila ble Chris Nedra Danelle Primary Care Unavailable Adamowicz II, Aries Guzman Admitting Unavaila ble Chris, Nedra Danelle Primary Care Unavailable Adamowicz II, Aries Guzman Attending Unavaila ble Self, Referral Referring Unavailable Marisel Abdalla Consulting Unavailable Mj Hills Attending Unavailable Daniel, Nedra Mcclendon Primary Care Unavailable Noe Jacobs Admitting Unavailabl e Adamowicz II, Aries Guzman Consulting Unavaila ble Vannessa Perales Consulting Unavailab Tosin Crespo Consulting Unavailable Joshi, Ileana Consulting Unavailable Zoie Jansen Consulting Unavailable Ariana Bell Consulting Unavailable Liam Senior Consulting Unavailable Nedra Moon Consulting Unavail Ave Ceja Consulting Unavailable Lorrie Butler Consulting Unavailable Deann Marx Consulting Unavailable Phi Adamson Consulting UnavailFreddy Up Unavailable Ave Jacobs Consulting Unavailable Aracelis Baldwin Consulting Unavailable Kelli Geller Primary Care Provid er Allergies Allergy Classification Reported Allergen(s) Allergy Type Date of Onset Reaction(s) Facility (8 sources) Erythromycin Drug Allergy 3 Diarrhea [facility] Repository (4 sources) Erythromycin; Translations: [ERYTHROMYCIN] Drug Allergy 3 Other (See Comments) [facility] (1 source) erythromycin base Drug allergy (disorder) 4 [facility] Repository Medications Current Medications Medication Drug Class(es) Dates Sig (Normalized) Sig (Original) albuterol 0.83 mg/ml inhalation solution (3 sources) beta2-Adrenergic Agonist Start: 01-30-2024 take 3 mL by inhalation every six hours as needed for wheezing albuterol (PROVENTIL,VENTOLIN ) 2.5 mg /3 mL (0.083 %) nebulizer solution Indications: Chronic obstructive pulmonary disease with acute exacerbation ([facility]) Inhale 3 mL (2.5 mg total) by nebulization every 6 (six) hours as needed for wheezing. 75 mL 12 01/30/2024 Active Start: 04-28-2023 take 2 puff(s) by mo uth every four hours VENTOLIN HFA 90 mcg/actuation inhaler inhale 2 puffs by mouth and INTO THE LUNGS every 4 hours if needed for shortness of breath 04/28/2023 Active ALPRAZolam 0.25 mg oral tablet (2 sources) Benzodiazepine Start: 04-07-2023 ALPRAZolam (XANAX) 0.25 mg tablet Indications: Anxiety Use twice daily as needed for anxiety - short term use only 10 tablet 04/07/2023 Active amoxicillin 875 mg / clavulanate [...] aspirin 81 mg delayed release oral tablet (10 sources) Platelet Aggregation Inhibitor, Nonsteroidal Anti-inflammatory Drug Start: 10-20-2023 take 81 mg by mouth once daily Aspirin Active 81 MG PO Daily October 20, 2023 1:00am atorvastatin 20 mg oral tablet (17 sources) HMG-CoA Reductase Inhibitor Start: 06-21-2023 take 20 mg by mouth once daily at bedtime Atorvastatin Active 20 MG PO Daily at bedtime June 21, 2023 12:00am docusate sodium 100 mg oral capsule (4 sources) Start: 03-29-2024 take 1 capsule by mouth once daily Docusate Sodium (Colace) 100 mg capsule Active 100 MG PO Daily March 29, 2024 12:00am famotidine 20 mg oral tablet (17 sources) Histamine-2 Receptor Antagonist Start: 07-22-2024 take 1 tablet by mouth once daily as needed for gastroesophageal reflux disease famotidine (PEPCID) 20 mg tablet Take 1 tablet (20 mg total) by mouth nightly as needed for heartburn. 30 tablet 2 07/22/2024 Active Start: 07-11-2023 End: 07-19-2024 take 1 tablet by mouth once daily as needed for gastroesophageal reflux disease famotidine (PEPCID) 20 mg tablet Take 1 tablet (20 mg total) by mouth nightly as needed for heartburn. 30 tablet 2 07/11/2023 07/19/2024 Discontinued (Reorder) Dfqlrcunsdr-Fxqpqahpk-Vnvbni er (3 sources) Anticholinergic, Corticosteroid, beta2-Adrenergic Agonist Start: 05-10-2024 Pkeknymfsgk-Ajnegignn-Nelfzi er (Trelegy Ellipta) 100-62.5-25 mcg blister with device Active 1 INH INHALATION Daily May 10, 2024 12:00am levothyroxine sodium 0.1 mg oral tablet (20 sources) l-Thyroxine Start: 06-24-2024 t a k e 1 0 0 u g b y m o u t h o n c e d a i l y Levothyroxine Active 100 MCG PO Daily June 24, 2024 12:00am Start: 05-10-2024 End: 06-24-2024 take 75 ug by mouth once daily Levothyroxine Discontin ued 75 MCG PO Daily May 10, 2024 10:38am June 24, 2024 1:29pm Start: 03-29-2024 End: 05-10-2024 take 50 ug by mouth once daily Levothyroxine Discontin ued 50 MCG PO Daily March 29, 2024 12:00am May 10, 2024 10:43am Start: 02-19-2024 End: 03-29-2024 take 1 tablet by mouth once daily Levothyroxine Discontinued 0 .ROUTE .COMPLEX February 19, 2024 9:16am March 29, 2024 10:04am take 1 tablet by mouth daily Start: 01-18-2024 End: 02-19-2024 take 1 tablet by mouth once daily levothyroxine (SYNTHROID, LEVOTHROID) 75 MCG tablet take 1 tablet by mouth daily 01/18/2024 Active Start: 12-29-2023 End: 01-18-2024 take 1 tablet by mouth once daily Levothyroxine (Synthroid) 50 mcg tablet Discontinued 50 MCG PO Daily December 29, 2023 12:00am January 18, 2024 2:53pm 24 hr metoprolol succinate 25 mg extended release oral tablet (16 sources) beta-Adrenergic [place] Start: 06-21-2023 Metopr olol Succinate Active 25 MG PO As Directed June 21, 2023 12:00am Start: 04-21-2023 End: 04-20-2024 take 0.5 tablet by mouth every twenty-four hours metoprolol succinate XL (TOPROL XL) 25 mg 24 hr tablet Take 0.5 tablets (12.5 mg total) by mouth. 0 04/21/2023 04/20/2024 Active ondansetron 4 mg disintegrating oral tablet (20 sources) Serotonin-3 Receptor Antagonist Start: 10-24-2023 End: 03-29-2024 take 4 mg by mouth every six hours Ondansetron Active 4 MG PO Q6H March 29, 2024 10:15am Start: 10-17-2023 End: 10-24-2023 ondansetron ODT (ZOFRAN ODT) 4 mg disintegrating tablet Indications: Nausea and vomiting, unspecified vomiting type Dissolve 1 tablet (4 mg total) on tongue every 8 (eight) hours as needed for nausea or vomiting. 20 tablet 0 12/26/2023 Active pantoprazole 40 mg delayed release oral tablet (16 sources) Proton Pump Inhibitor Start: 06-21-2023 End: 05-10-2024 pantoprazole (PROTONIX) 40 mg EC tablet Daily 06/21/2023 Active 4 ml pembrolizumab 25 mg/ml injection (2 sources) Programmed Receptor-1 Blocking Antibody pembrolizumab (KEYTRUDA) 25 mg/mL chemo injection as directed Intravenous Active polyethylene glycol 3350 18853 mg powder for oral solution (9 sources) Osmotic Laxative Start: 10-24-2023 polyethylene glycol (MIRALAX) 17 gram packet Take 17 g by mouth in the morning. 10/24/2023 Active predniSONE 20 mg oral tablet (1 source) [...] mg / valsartan 26 mg oral tablet (17 sources) Angiotensin 2 Receptor [place] Start: 06-21-2023 take 1 tablet by mouth twice daily Sacubitril-Valsarta n (Entresto) 24-26 mg tablet Active 1 TAB PO Twice daily June 21, 2023 12:00am Start: 03-23-2023 take 1 tablet by chace once daily at bedtime ENTRESTO 24-26 mg tablet take 1 tablet by mouth every morning and at bedtime 03/23/2023 Active Sennosides (Senna Laxative) 8.6 mg Tablet (8 sources) Start: 10-24-2023 take 1 tablet by mouth twice daily Sennosides (Senna Laxative) 8.6 mg Tablet Active 8.6 MG PO Twice daily October 24, 2023 1:00am Start: 10-24-2023 take 1 tablet by chace th twice daily Sennosides (Senna Laxative) 8.6 mg Tablet Active 8.6 MG PO Twice daily October 24, 2023 12:00am sennosides, prison 8.6 mg oral tablet (1 source) Start: 10-24-2023 senna (SENOKOT ) 8.6 mg tablet Twice daily 10/24/2023 Active spironolactone 25 mg oral tablet (17 sources) Aldosterone Antagonist Start: 06-21-2023 Spironolactone Activ e 12.5 MG PO As Directed June 21, 2023 12:00am spironolactone ( ALDACTONE) 25 mg tablet Take 1 tablet (25 mg total) by mouth in the morning. Cut in half. Active Completed/Discontinued Medications Medication Drug Class(es) Dates Sig (Normalized) Sig (Original) axitinib 5 mg oral tablet (11 sources) Kinase Inhibitor Start: 09-07-2023 End: 10-26-2023 take 1 tablet by mouth twice daily Axitinib (Inlyta) 5 mg Tablet Discontinued 5 MG PO Twice daily 60 September 07, 2023 1:00am October 26, 2023 2:22pm benzonatate 100 mg oral capsule (2 sources) Non-narcotic Antitussive Start: 06-04-2024 End: 06-24-2024 take 100 mg by mouth three times daily Benzonatate Discontinued 100 MG PO Three times daily 21 04June 04, 2024 12:00am June 24, 2024 1:00pm escitalopram 10 mg oral tablet (20 sources) Serotonin Reuptake Inhibitor Start: 04-19-2024 End: 04-23-2024 take 1 tablet by mouth once daily in the morning Escitalopram Oxalate Discontinued 0 .ROUTE .COMPLEX April 19, 2024 2:30pm April 23, 2024 3:34pm take 1 tablet by mouth every morning Start: 03-29-2024 End: 04-19-2024 take 10 mg by mouth once daily in the morning Escitalopram Oxalate Discontinued 10 MG PO Every morning March 29, 2024 10:15am April 19, 2024 2:28pm Start: 06-21-2023 End: 03-29-2024 take 1 tablet by mouth once daily in the morning escitalopram (LEXAPRO) 5 mg tablet Indications: Anxiety take 1 tablet by mouth every morning 90 tablet 03/21/2024 Active 120 actuat formoterol fumarate 0.0048 mg/actuat / glycopyrrolate 0.009 mg/actuat metered dose inhaler (12 sources) beta2-Adrenergic Agonist Start: 08-28-2023 End: 10-20-2023 Glycopyrrolate-Formoterol (Bevespi Aerosphere) 9-4.8 mcg Hfa Aerosol Inhaler Discontinued 2 PUFF INHALATION Twice daily August 28, 2023 1:00am October 20, 2023 3:29am loratadine 10 mg oral tablet (15 sources) Start: 06-21-2023 End: 06-23-2023 take 10 mg by mouth once daily Loratadine Discontinued 10 MG PO Daily June 21, 2023 12:00am June 23, 2023 1:28pm Tiotropium-Olodat angie (14 sources) Anticholinergic, beta2-Adrenergic Agonist Start: 07-31-2023 End: 10-20-2023 Tiotropium-Olodaterol (Stiolto Respimat) 2.5-2.5 mcg/actuation Mist Discontinued 2 [...] PUFF INHALATION Daily July 31, 2023 12:00am oxyCODONE hydrochloride 5 mg oral tablet (8 sources) Opioid Agonist Start: 10-24-2023 End: 05-10-2024 take 2.5 mg by mouth every three hours Oxycodone Discontinued 2.5 MG PO Every three hours 21 03October 24, 2023 May 10, 2024 9:56am sulfamethoxazole 800 mg / trimethoprim 160 mg oral tablet (20 sources) Dihydrofolate Reductase Inhibitor Antibacterial, Sulfonamide Antimicrobial Start: 09-19-2023 End: 10-20-2023 take 1 tablet by mouth twice daily Sulfamethoxazole- Trimethoprim (Bactrim Ds) 800-160 mg Tablet Discontinued 1 [...] Documented Da te Episodic/Chronic Acute myocardial infarction (3 sources) Non-ST elevation (NSTEMI) myocardial infarction; Translations: [...] Episodic Chronic obstructive pulmonary disease and bronchiectasis (20 sources) Chronic obstructive pulmonary disease with (acute) exacerbation; Translations: [Chronic obstructive pulmonary disease with (acute) lower respiratory infection] Onset: 02-02-2023 10-19-2023 Chronic Congestive heart failure; nonhypertensive (15 sources) Acute on chronic systolic (congestive) heart failure; Translations: [Acute systolic (congestive) heart failure] Onset: 01-25-2023 Resolved: 02-07-2023 Chronic Coronary atherosclerosis and other heart disease (6 sources) Acute coronary syndrome; Translations: [Acute ischemic heart disease, unspecified] Onset: 01-25-2023 02-06-2023 Chronic Hypertension with complications and secondary hypertension (2 sources) Hypertensive heart disease with heart failure; Translations: [Hypertensive heart disease with heart failure] Onset: 04-23-2024 Chronic Immunizations and screening for infectious disease (2 sources) Contact with or exposure to other viral diseases; Translations: [Exposure to 2019 novel coronavirus] 06-04-2024 Episodic Maintenance chemotherapy; radiotherapy (18 sources) Patient encounter status; Translations: [Encounter for antineoplastic chemotherapy] 10-05-2023 Chronic Nephritis; nephrosis; renal sclerosis (1 source) Toxic nephropathy, not elsewhere classified; Translations: [Toxic nephropathy, not elsewhere classified] Onset: 10-19-2023 Chronic Other aftercare (8 sources) Drug therapy finding; Translations: [Other twisthand (current) drug therapy] 10-20-2023 Episodic Other diseases of kidney and ureters (9 sources) Renal mass; Translations: [Other specified disorders of kidney and ureter] Onset: 04-24-2023 07-11-2023 Chronic Other diseases of kidney and ureters (5 sources) Other specified disorders of kidney and ureter; Translations: [Unspecified disorder of kidney and ureter] 07-31-2023 Chronic Other liver diseases (12 sources) Enzyme level - finding; Translations: [Elevated transaminase measurement] 10-20-2023 Episodic Other lower respiratory disease (1 source) Cough Onset: 01-30-2024 Episodic Other lower respiratory disease (2 sources) Other forms of dyspnea; Translations: [Other forms of dyspnea] Onset: 04-23-2024 Episodic Other nervous system disorders (9 sources) Pain due to neoplastic disease; Translations: [Neoplasm related pain (acute) (chronic)] Onset: 01-30-2024 10-20-2023 Chronic Other nervous system disorders (5 [...] caused by tuberculosis or sexually transmitted disease) (16 sources) Cardiomyopathy; Translations: [Other cardiomyopathies] Onset: 10-19-2023 [...] 02-02-2023 Episodic Respiratory failure; insufficiency; arrest (adult) (15 sources) Chronic hypoxemic respiratory failure; Translations: [Chronic [...] te Episodic/Chronic Acute and unspecified renal failure (14 sources) Nephrotoxic acute renal failure; Translations: [Other acute kidney failure] Onset: 10-19-2023 10-20-2023 Episodic Administrative/social admission (14 sources) Advance directive discussed with patient; Translations: [Other specified counseling] Onset: 10-19-2023 10-23-2023 Episodic Deficiency and other anemia (19 sources) Iron deficiency anemia; Translations: [Iron deficiency anemia, unspecified] Onset: 01-30-2024 2023 Episodic Deficiency and other anemia (14 sources) Iron deficiency anemia, unspecified; Translations: [Iron deficiency anemia, unspecified] Onset: 10-19-2023 10-05-2023 Episodic Fluid and electrolyte disorders (20 sources) Hypo-osmolality and hyponatremia; Translations: [Hyponatremia] Onset: 02-02-2023 10-05-2023 Episodic Mood disorders (2 sources) Mood disorders Onset: 12-26-2023 Resolved: 01-30-2024 12-26-2023 Nausea and vomiting (17 sources) Nausea; Translations: [Intractable nausea and vomiting] Onset: 02-02-2023 10-19-2023 Episodic Other aftercare (5 sources) Other senior living (current) drug therapy; Translations: [Long-term (current) use of other medications] Onset: 10-19-2023 10-19-2023 Episodic Other diseases of kidney and ureters (1 source) Other specified disorders of kidney and ureter; Translations: [Other specified disorders of kidney and ureter] Onset: 08-22-2023 Episodic Other gastrointestinal disorders (9 sources) Constipation; Translations: [Constipation, unspecified] Onset: 01-30-2024 10-19-2023 Episodic Other gastrointestinal disorders (5 sources) Constipation, unspecified; Translations: [Constipation, unspecified] Onset: 10-19-2023 10-19-2023 Episodic Other screening for suspected conditions (not mental disorders or infectious disease) (20 sources) Raised cardiac enzyme or marker; Translations: [Other specified abnormal findings of blood chemistry] Onset: 10-19-2023 10-19-2023 Episodic Respiratory failure; insufficiency; arrest (adult) (4 sources) Acute respiratory failure with hypoxia; Translations: [Acute respiratory failure with hypercapnia] Onset: 01-25-2023 Resolved: 02-07-2023 02-07-2023 Episodic Viral infection (4 sources) Other viral agents as the cause of diseases classified elsewhere; Translations: [Parainfluenza] Onset: 01-25-2023 02-06-2023 Episodic Results Test Name Value Interpretation Reference Range Facility Adrenocorticotropic Hormone PLon 06-18-[address] 51.6 pg/mL Normal 7.2-63.3 [facility] Comment on above: Result Comment: ACTH reference interval for samples collected between 7 and 10 AM. Performed at: - [facility] [id number] Field Service Specialist: Juan Hendricks PhD, Phone: [phone] BY:[address] [place], [place] [id number] MEDICAL DIRECTORSTEFANO HOLT M.D. Performed By: #### A CT ####[facility] ,#### T4F, JER, TSH3, CMP ####[address] [place] [address] [facility] Alanine aminotransferase [En zymatic activity/volume] in Serum or PlasmaOrdered By: Aries Chavez on 06-18-2024 ALT [Catalytic activity/Vol] 11 U/L Normal 7-52 [facility] Comment on above: Performed By: #### A CT ####[facility] ,#### T4F, JER, TSH3, CMP ####[address] [place] [address] [place] Albumin [Mass/volume] in Ser um or Plasma by Bromocresol green (BCG) dye binding methoOrdered By: Aries Chavez on 06-18-2024 Albumin BCG dye [Mass/Vol] 3.7 g/dL 3.5-5.7 [facility] Alkaline phosphatase [Enzyma tic activity/volume] in Serum or PlasmaOrdered By: Aries Chavez on 06-18-2024 ALP [Catalytic activity/Vol] 76 U/L Normal 34-104 [facility] Comment on above: Performed By: #### A CT ####[facility] ,#### T4F, JER, TSH3, CMP ####[address] Aspartate aminotransferase [ Enzymatic activity/volume] in Serum or PlasmaOrdered By: Aries Chavez on 06-18-2024 AST [Catalytic activity/Vol] 19 U/L Normal 13-39 [facility] Comment on above: Performed By: #### A CT ####[facility] ,#### T4F, JER, TSH3, CMP ####[address] Automated basophil %Ordered By: Aries Chavez on 06-18-2024 Basophils/100 WBC (Bld) 1.4 % Normal . [facility] Comment on above: Performed By: #### C BC ####[address] Automated basophil countOrde red By: Aries Chavez on 06-18-2024 Basophils (Bld) [#/Vol] 0.1 10*3/uL Normal 0.0-0.2 [facility] Comment on above: Result Comment: PERF ORMED BY:[address] [place], [place] [id number] MEDICAL DIRECTORSTEFANO HOLT M.D. Performed By: #### C BC ####[address] Automated blood monocyte cou ntOrdered By: Aries Chavez on 06-18-2024 Monocytes (Bld) [#/Vol] 0.8 10*3/uL Normal 0.0-0.8 [facility] Comment on above: Performed By: #### C BC ####[address] Automated eosinophil %Ordere d By: Aries Chavez on 06-18-2024 Eosinophils/100 WBC (Bld) 6.1 % Normal . [facility] Comment on above: Performed By: #### C BC ####[address] Automated eosinophil countOr dered By: Aries Chavez on 06-18-2024 Eosinophils (Bld) [#/Vol] 0.5 10*3/uL High 0.0-0.45 [facility] Comment on above: Performed By: #### C BC ####[address] Automated monocyte %Ordered By: Aries Chavez on 06-18-2024 Monocytes/100 WBC (Bld) 9.1 % Normal . [facility] Comment on above: Performed By: #### C BC ####[address] Automated neutrophil %Ordere d By: Aries Chavez on 06-18-2024 Neutrophils/100 WBC (Bld) 70.9 % Normal . [facility] Comment on above: Performed By: #### C BC ####[address] Bilirubin.total [Mass/volume ] in Serum or PlasmaOrdered By: Aries Chavez on 06-18-2024 Bilirubin [Mass/Vol] 0.6 mg/dL Normal 0.3-1.0 [facility] Comment on above: Performed By: #### A CTH ####[facility] ,#### T4F, JER, TSH3, CMP ####[address] Calcium [Mass/volume] in Ser um or PlasmaOrdered By: Aries Chavez on 06-18-2024 Calcium [Mass/Vol] 9.1 mg/dL Normal 8.6-10.3 [facility] Comment on above: Performed By: #### A CT ####[facility] ,#### T4F, JER, TSH3, CMP ####[address] Carbon dioxide, total [Moles /volume] in Serum or PlasmaOrdered By: Aries Chavez on 06-18-2024 CO2 [Moles/Vol] 29.4 mmol/L Normal 21.0-31.0 [facility] Comment on above: Performed By: #### A CTH ####[facility] ,#### T4F, JER, TSH3, CMP ####[address] Chloride [Moles/volume] in S leena or PlasmaOrdered By: Aries Chavez on 06-18-2024 Chloride [Moles/Vol] 94 mmol/L Low 98-107 [facility] Comment on above: Performed By: #### A CTH ####[facility] ,#### T4F, JER, TSH3, CMP ####[address] Complete Blood Count Auto Di ffon 06-18-2024 Mean Corpuscular HGB Conc 33.4 g/dL Normal 32.0-35.0 [facility] Comment on above: Performed By: #### C BC ####[address] NRBC% 0.0 /100{WBC} Normal 0-0.5 [facility] Comment on above: Performed By: #### C BC ####[address] Comprehensive Metabolic Pane onesimo 06-18-2024 Albumin [Mass/Vol] 3.7 g/dL Normal 3.5-5.7 [facility] Comment on above: Performed By: #### A CT ####[facility] ,#### T4F, JER, TSH3, CMP ####[address] [place] [address] [facility] Creatinine Clr Calc Pharmacy 67.15 Normal [facility] Comment on above: Performed By: #### A CT ####[facility] ,#### T4F, JER, TSH3, CMP ####[address] [address] [facility] GFR/1.73 sq M.predicted MDRD (S/P/Bld) [Vol rate/Area] mL/min/{1.73_m2} Normal [facility] Comment on above: Performed By: #### A CT ####[facility] ,#### T4F, JER, TSH3, CMP ####[address] [address] [facility] Cortisolon 06-18-2024 Cortisol 18.8 ug/dL Normal [facility] Comment on above: Result Comment: Refe rence range: AM 6 - 24 ug/dl PM <10 ug/dl [facility] sign hanger supervisor and method: AMRITA UNICEL DXI, POLYCLONAL ANTIBODY CORTISOL ASSAY.PERFORMED BY:[address] [place], [place] [id number] MEDICAL DIRECTORSTEFANO HOLT M.D. Performed By: #### A CT ####[facility] ,#### T4F, JER, TSH3, CMP ####[address] [address] [facility] Creatinine [Mass/volume] in Serum or PlasmaOrdered By: Aries Chavez on 06-18-2024 Creatinine [Mass/Vol] 0.83 mg/dL Normal 0.60-1.20 [facility] Comment on above: Performed By: #### A CTH ####[facility] ,#### T4F, JER, TSH3, CMP ####[place] [address] [place] [id number] [facility] Erythrocyte distribution wid th [Ratio] by Automated countOrdered By: Aries Chavez on 06-18-2024 Erythrocyte distribution width (RBC) [Ratio] 13.3 % Normal 11.9-15.3 [facility] Comment on above: Performed By: #### C BC ####[address] Erythrocytes [#/volume] in B lood by Automated countOrdered By: Aries Chavez on 06-18-2024 RBC (Bld) [#/Vol] 4.11 10*6/uL Normal 3.60-5.00 [facility] Comment on above: Performed By: #### C BC ####[address] Glucose [Mass/volume] in Ser um or PlasmaOrdered By: Aries Chavez on 06-18-2024 Glucose [Mass/Vol] 93 mg/dL Normal 70-100 [facility] Comment on above: ADA recommended refe rence rangeRandom Glucose Reference Range is dependent on time and content of last meal. Glucose of more than 200 mg/dL in a nonstressed, ambulatory subject supports the diagnosis of Diabetes Mellitus. Result Comment: [place] om Glucose Reference Range is dependent on time and content of last meal. Glucose of more than 200 mg/dL in a nonstressed, ambulatory subject supports the diagnosis of Diabetes Mellitus. ADA recommended reference range Performed By: #### A [facility] ####[facility] ,#### T4F, JER, TSH3, CMP ####[place] [id number] [facility] Hematocrit [Volume Fraction] of Blood by Automated countOrdered By: Aries Chavez on 06-18-2024 Hematocrit (Bld) [Volume fraction] 36.5 % Normal 34.0-46.4 [facility] Comment on above: Performed By: #### C BC ####[address] Hemoglobin [Mass/volume] in BloodOrdered By: Aries Chavez on 06-18-2024 Hemoglobin (Bld) [Mass/Vol] 12.2 g/dL Normal 11.8-15.4 [facility] Comment on above: Performed By: #### C BC ####[address] Leukocytes [#/volume] correc gabriel for nucleated erythrocytes in Blood by Automated counOrdered By: Aries Chavez on 06-18-2024 WBC corrected for nucl RBC Auto (Bld) [#/Vol] 8.4 10*3/uL 3.8-11.6 [facility] Leukocytes [#/volume] in Blo od by Automated countOrdered By: Aries Chavez on 06-18-2024 WBC (Bld) [#/Vol] 8.4 10*3/uL Normal 3.8-11.6 [facility] Comment on above: Performed By: #### C BC ####[address] Lymphocytes [#/volume] in Bl ood by Automated countOrdered By: Aries Chavez on 06-18-2024 Lymphocytes (Bld) [#/Vol] 1.1 10*3/uL Normal 1.00-4.8 [facility] Comment on above: Performed By: #### C BC ####[address] Lymphocytes/100 leukocytes i n Blood by Automated countOrdered By: Aries Chavez on 06-18-2024 Lymphocytes/100 WBC (Bld) 12.5 % Normal . [facility] Comment on above: Performed By: #### C BC ####[address] MCH [Entitic mass] by Automa gabriel countOrdered By: Aries Chavez on 06-18-2024 MCH (RBC) [Entitic mass] 29.6 pg Normal 24.7-34.3 [facility] Comment on above: Performed By: #### C BC ####[place] [address] MCHC Auto (RBC) [Mass/Vol]Or dered By: Aries Chavez on 06-18-2024 MCHC (RBC) [Mass/Vol] 33.4 g/dL 32.0-35.0 [facility] MCV [Entitic volume] by Auto mated countOrdered By: Aries Chavez on 06-18-2024 MCV (RBC) [Entitic vol] 88.8 fL Normal 80-100 [facility] Comment on above: Performed By: #### C BC ####[address] Neutrophils [#/volume] in Bl ood by Automated countOrdered By: Aries Chavez on 06-18-2024 Neutrophils (Bld) [#/Vol] 6.0 10*3/uL Normal 1.8-7.7 [facility] Comment on above: Performed By: #### C BC ####[address] No Panel InformationOrdered By: Aries Chavez on 06-18-2024 Adrenocorticotropic Hormone 51.6 pg/mL 7.2-63.3 [facility] Comment on above: ACTH reference inter wendy for samples collected between 7 and10 AM.Performed at: - [place] [id number] Director: Juan Hendricks PhD, Phone: [phone] Estimated GFR (CKD-EPI) > 60.0 mL/Min [facility] Creatinine Clearance (Chem 67.15 [facility] Nucleated erythrocytes [Pres ence] in Blood by Automated countOrdered By: Aries Chavez on 06-18-2024 Nucleated RBC Auto Ql (Bld) 0.0 /100{WBC} 0-0.5 [facility] Platelet mean volume [Entiti c volume] in Blood by Automated countOrdered By: Aries Chavez on 06-18-2024 Platelet mean volume (Bld) [Entitic vol] 7.1 fL Normal 6.3-10.7 [facility] Comment on above: Performed By: #### C BC ####[address] Platelets [#/volume] in Bloo d by Automated countOrdered By: Aries Chavez on 06-18-2024 Platelets (Bld) [#/Vol] 342 10*3/uL Normal 150-450 [facility] Comment on above: Performed By: #### C BC ####[address] Potassium [Moles/volume] in Serum or PlasmaOrdered By: Aries Chavez on 06-18-2024 Potassium [Moles/Vol] 5.0 mmol/L Normal 3.5-5.1 [facility] Comment on above: Performed By: #### A [facility] ####[facility] ,#### T4F, JER, TSH3, CMP ####[place] [id number] [facility] Protein [Mass/volume] in Ser um or PlasmaOrdered By: Aries Chavez on 06-18-2024 Protein [Mass/Vol] 6.9 g/dL Normal 6.4-8.9 [facility] Comment on above: Performed By: #### A [facility] ####[facility] ,#### T4F, JER, TSH3, CMP ####[place] [id number] [facility] Random cortisol measurementO rdered By: Aries Chavez on 06-18-2024 Cortisol [Mass/Vol] 18.8 ug/dL [facility] Comment on above: [facility] sign hanger supervisor and method:[employer] DXI, POLYCLONAL ANTIBODY CORTISOL ASSAY.Reference range: AM 6 - 24 ug/dl PM <10 ug/dl Serum globulin measurement b y calculation (mass/volume)Ordered By: Aries Chavez on 06-18-2024 Globulin (S) [Mass/Vol] 3.2 g/dL [facility] Comment on above: Performed By: #### A CT ####[facility] ,#### T4F, JER, TSH3, CMP ####[address] Serum or plasma albumin/glob ulin mass ratioOrdered By: Aries Chavez on 06-18-2024 Albumin/Globulin [Mass ratio] 1.2 {ratio} [facility] Comment on above: Performed By: #### A CT ####[facility] ,#### T4F, JER, TSH3, CMP ####[address] Serum or plasma anion gap de terminationOrdered By: Aries Chavez on 06-18-2024 Anion gap [Moles/Vol] 7.6 mmol/L Normal 6.0-15.0 [facility] Comment on above: Performed By: #### A CT ####[facility] ,#### T4F, JER, TSH3, CMP ####[address] Sodium [Moles/volume] in Ser um or PlasmaOrdered By: Aries Chavez on 06-18-2024 Sodium [Moles/Vol] 126 mmol/L Low 136-145 [facility] Comment on above: Performed By: #### A CT ####[facility] ,#### T4F, JER, TSH3, CMP ####[address] Thyrotropin [Units/volume] i n Serum or PlasmaOrdered By: Aries Chavez on 06-18-2024 TSH Qn 24.20 m[IU]/L High 0.45-5.33 [facility] Comment on above: Performed By: #### A CT ####[facility] ,#### T4F, JER, TSH3, CMP ####[facility] [id number] [place] [id number] [facility] Thyroxine (T4) free [Mass/vo lume] in Serum or PlasmaOrdered By: Aries Scott on 06-18-2024 Free T4 [Mass/Vol] 1.05 ng/dL Normal 0.61-1.12 [facility] Comment on above: Performed By: #### A CT ####[facility] ,#### T4F, JER, TSH3, CMP ####[facility] Urea nitrogen [Mass/volume] in Serum or PlasmaOrdered By: Aries Chavez on 06-18-2024 Urea nitrogen [Mass/Vol] 9 mg/dL Normal 7-25 [facility] Comment on above: Performed By: #### A CT ####[facility] ,#### T4F, JER, TSH3, CMP ####[facility] No Panel InformationOrdered By: Elayne James on 06-04-2024 COVID Antigen (POC) [facility] COVID Antigen (POC) [facility] 36on 05-24-2024 36 Patient informed. Sh e verbalized understanding. Normal [facility] 36on 05-22-2024 36 Nothing further to d o at this time. Left atrial enlargement can be caused by her lung disease, HTN, age. We just need to be mindful of this as it can increase her risk of an abnormal heart rhythm (a.fib). If she notices any palpitations or change in heart rate, she needs to let us know. Her heart function is normal and no signs of fluid overload. I would attribute her weight gain to her synthroid medication and her SOB to her COPD. Follow-up with cardiology in 6 months. Thanks! Normal [facility] 36 Regarding echo resul t from 05/09/2024: AMA Alvarez, CJ Guevara LV function is normal , no significant valvular abnormalities Overall pretty good. Enlarged lt atrium- but normal if she has A fib Thanks Stephanie, I don't see afib as one of her diagnoses. Did you want something else done for her? Normal [facility] Adrenocorticotropic Hormone PLon 05-07-[address] 38.4 pg/mL Normal 7.2-63.3 [facility] Comment on above: Result Comment: ACTH reference interval for samples collected between 7 and 10 AM. Performed at: - [facility] [id number] Field Service Specialist: Juan Hendricks PhD, Phone: [phone] BY:[address] [id number] MEDICAL DIRECTORSTEFANO HOLT M.D. Performed By: #### H EPATIC, T4F, JER, TSH3, CMP ####[address]#### ACTH ####[facility] , Alanine aminotransferase [En zymatic activity/volume] in Serum or PlasmaOrdered By: Aries Chavez on 05-07-2024 ALT [Catalytic activity/Vol] 13 U/L Normal 7-52 [facility] Comment on above: Performed By: #### H EPATIC, T4F, JER, TSH3, CMP ####[address]#### ACTH ####[facility] , Albumin [Mass/volume] in Ser um or Plasma by Bromocresol green (BCG) dye binding methoOrdered By: Aries Chavez on 05-07-2024 Albumin BCG dye [Mass/Vol] 3.8 g/dL 3.5-5.7 [facility] Alkaline phosphatase [Enzyma tic activity/volume] in Serum or PlasmaOrdered By: Aries Chavez on 05-07-2024 ALP [Catalytic activity/Vol] 74 U/L Normal 34-104 [facility] Comment on above: Performed By: #### H EPATIC, T4F, JER, TSH3, CMP ####[address]#### ACTH ####[facility] , Aspartate aminotransferase [ Enzymatic activity/volume] in Serum or PlasmaOrdered By: Aries Chavez on 05-07-2024 AST [Catalytic activity/Vol] 20 U/L Normal 13-39 [facility] Comment on above: Performed By: #### H EPATIC, T4F, JER, TSH3, CMP ####[address]#### ACTH ####[facility] , Automated basophil %Ordered By: Aries Chavez on 05-07-2024 Basophils/100 WBC (Bld) 2.9 % Normal . [facility] Comment on above: Performed By: #### C BC ####[address] Automated basophil countOrde red By: Aries Chavez on 05-07-2024 Basophils (Bld) [#/Vol] 0.2 10*3/uL Normal 0.0-0.2 [facility] Comment on above: Result Comment: PERF ORMED BY:[address] [place]Mal[place]GabeGRE[place], [place] [id number] MEDICAL DIRECTORSTEFANO HOLT M.D. Performed By: #### C BC ####[address] Automated blood monocyte cou ntOrdered By: Aries Chavez on 05-07-2024 Monocytes (Bld) [#/Vol] 0.8 10*3/uL Normal 0.0-0.8 [facility] Comment on above: Performed By: #### C BC ####[address] Automated eosinophil %Ordere d By: Aries Chavez on 05-07-2024 Eosinophils/100 WBC (Bld) 8.7 % Normal . [facility] Comment on above: Performed By: #### C BC ####[facility] [address] Automated eosinophil countOr dered By: Aries Chavez on 05-07-2024 Eosinophils (Bld) [#/Vol] 0.6 10*3/uL High 0.0-0.45 [facility] Comment on above: Performed By: #### C BC ####[address] Automated monocyte %Ordered By: Aries Chavez on 05-07-2024 Monocytes/100 WBC (Bld) 11.6 % Normal . [facility] Comment on above: Performed By: #### C BC ####[address] Automated neutrophil %Ordere d By: Aries Chavez on 05-07-2024 Neutrophils/100 WBC (Bld) 59.0 % Normal . [facility] Comment on above: Performed By: #### C BC ####[address] Bilirubin.direct [Mass/volum e] in Serum or PlasmaOrdered By: Aries Chavez on 05-07-2024 Bilirubin.direct [Mass/Vol] 0.10 mg/dL 0.03-0.18 [facility] Bilirubin.total [Mass/volume ] in Serum or PlasmaOrdered By: Aries Chavez on 05-07-2024 Bilirubin [Mass/Vol] 0.6 mg/dL Normal 0.3-1.0 [facility] Comment on above: Performed By: #### H EPATIC, T4F, JER, TSH3, CMP ####[address]#### ACTH ####[facility] , Calcium [Mass/volume] in Ser um or PlasmaOrdered By: Aries Chavez on 05-07-2024 Calcium [Mass/Vol] 8.9 mg/dL Normal 8.6-10.3 [facility] Comment on above: Performed By: #### H EPATIC, T4F, JER, TSH3, CMP ####[address]#### ACTH ####[facility] , Carbon dioxide, total [Moles /volume] in Serum or PlasmaOrdered By: Aries Chavez on 05-07-2024 CO2 [Moles/Vol] 29.3 mmol/L Normal 21.0-31.0 [facility] Comment on above: Performed By: #### H EPATIC, T4F, JER, TSH3, CMP ####[address]#### ACTH ####[facility] , Chloride [Moles/volume] in S leena or PlasmaOrdered By: Aries Chavez on 05-07-2024 Chloride [Moles/Vol] 96 mmol/L Low 98-107 [facility] Comment on above: Performed By: #### H EPATIC, T4F, JER, TSH3, CMP ####[address]#### ACTH ####[facility] , Complete Blood Count Auto Di ffon 05-07-2024 Mean Corpuscular HGB Conc 32.9 g/dL Normal 32.0-35.0 [facility] Comment on above: Performed By: #### C BC ####[address] NRBC% 0.0 /100{WBC} Normal 0-0.5 [facility] Comment on above: Performed By: #### C BC ####[address] Comprehensive Metabolic Pane onesimo 05-07-2024 Albumin [Mass/Vol] 3.8 g/dL Normal 3.5-5.7 [facility] Comment on above: Performed By: #### H EPATIC, T4F, JER, TSH3, CMP ####[place] [address] [place]#### ACTH ####[facility] , Creatinine Clr Calc Pharmacy 58.46 Normal [facility] Comment on above: Performed By: #### H EPATIC, T4F, JER, TSH3, CMP ####[address]#### ACTH ####[facility] , GFR/1.73 sq M.predicted MDRD (S/P/Bld) [Vol rate/Area] mL/min/{1.73_m2} Normal [facility] Comment on above: Performed By: #### H EPATIC, T4F, JER, TSH3, CMP ####[address]#### ACTH ####[facility] , Cortisolon 05-07-2024 Cortisol 14.4 ug/dL Normal [facility] Comment on above: Result Comment: Refe rence range: AM 6 - 24 ug/dl PM <10 ug/dl [facility] sign hanger supervisor and method: [employer] DXI, POLYCLONAL ANTIBODY CORTISOL ASSAY.PERFORMED BY:[address] [id number] MEDICAL DIRECTORSTEFANO HOLT M.D. Performed By: #### H EPATIC, T4F, JER, TSH3, CMP ####[address]#### ACTH ####[facility] , Creatinine [Mass/volume] in Serum or PlasmaOrdered By: Aries Chavez on 05-07-2024 Creatinine [Mass/Vol] 0.93 mg/dL Normal 0.60-1.20 [facility] Comment on above: Performed By: #### H EPATIC, T4F, JER, TSH3, CMP ####[address]#### ACTH ####[facility] , Erythrocyte distribution wid th [Ratio] by Automated countOrdered By: Aries Chavez on 05-07-2024 Erythrocyte distribution width (RBC) [Ratio] 13.3 % Normal 11.9-15.3 [facility] Comment on above: Performed By: #### C BC ####[address] Erythrocytes [#/volume] in B lood by Automated countOrdered By: Aries Chavez on 05-07-2024 RBC (Bld) [#/Vol] 3.94 10*6/uL Normal 3.60-5.00 [facility] Comment on above: Performed By: #### C BC ####[address] Glucose [Mass/volume] in Ser um or PlasmaOrdered By: Aries Chavez on 05-07-2024 Glucose [Mass/Vol] 92 mg/dL Normal 70-100 [facility] Comment on above: ADA recommended refe rence rangeRandom Glucose Reference Range is dependent on time and content of last meal. Glucose of more than 200 mg/dL in a nonstressed, ambulatory subject supports the diagnosis of Diabetes Mellitus. Result Comment: [place] om Glucose Reference Range is dependent on time and content of last meal. Glucose of more than 200 mg/dL in a nonstressed, ambulatory subject supports the diagnosis of Diabetes Mellitus. ADA recommended reference range Performed By: #### H EPATIC, T4F, JER, TSH3, CMP ####[address]#### ACTH ####[facility] , Hematocrit [Volume Fraction] of Blood by Automated countOrdered By: Aries Chavez on 05-07-2024 Hematocrit (Bld) [Volume fraction] 35.8 % Normal 34.0-46.4 [facility] Comment on above: Performed By: #### C BC ####[address] Hemoglobin [Mass/volume] in BloodOrdered By: Aries Chavez on 05-07-2024 Hemoglobin (Bld) [Mass/Vol] 11.8 g/dL Normal 11.8-15.4 [facility] Comment on above: Performed By: #### C BC ####[address] Hepatic Panelon 05-07-2024 Bilirubin,Indirect 0.5 mg/dL Normal [facility] Comment on above: Performed By: #### H EPATIC, T4F, JER, TSH3, CMP ####[address]#### ACTH ####[facility] , Bilirubin.indirect [Mass/Vol] 0.10 mg/dL Normal 0.03-0.18 [facility] Comment on above: Performed By: #### H EPATIC, T4F, JER, TSH3, CMP ####[place] [address] [address]#### ACTH ####[facility] , Leukocytes [#/volume] correc gabriel for nucleated erythrocytes in Blood by Automated counOrdered By: Aries Chavez on 05-07-2024 WBC corrected for nucl RBC Auto (Bld) [#/Vol] 6.8 10*3/uL 3.8-11.6 [facility] Leukocytes [#/volume] in Blo od by Automated countOrdered By: Aries Chavez on 05-07-2024 WBC (Bld) [#/Vol] 6.8 10*3/uL Normal 3.8-11.6 [facility] Comment on above: Performed By: #### C BC ####[address] Lymphocytes [#/volume] in Bl ood by Automated countOrdered By: Aries Chavez on 05-07-2024 Lymphocytes (Bld) [#/Vol] 1.2 10*3/uL Normal 1.00-4.8 [facility] Comment on above: Performed By: #### C BC ####[place] [id number] [facility] Lymphocytes/100 leukocytes i n Blood by Automated countOrdered By: Aries Chavez on 05-07-2024 Lymphocytes/100 WBC (Bld) 17.8 % Normal . [facility] Comment on above: Performed By: #### C BC ####[address] MCH [Entitic mass] by Automa gabriel countOrdered By: Aries Chavez on 05-07-2024 MCH (RBC) [Entitic mass] 29.9 pg Normal 24.7-34.3 [facility] Comment on above: Performed By: #### C BC ####[address] MCHC Auto (RBC) [Mass/Vol]Or dered By: Aries Chavez on 05-07-2024 MCHC (RBC) [Mass/Vol] 32.9 g/dL 32.0-35.0 [facility] MCV [Entitic volume] by Auto mated countOrdered By: Aries Chavez on 05-07-2024 MCV (RBC) [Entitic vol] 90.9 fL Normal 80-100 [facility] Comment on above: Performed By: #### C BC ####[address] Neutrophils [#/volume] in Bl ood by Automated countOrdered By: Aries Chavez on 05-07-2024 Neutrophils (Bld) [#/Vol] 4.0 10*3/uL Normal 1.8-7.7 [facility] Comment on above: Performed By: #### C BC ####[address] No Panel InformationOrdered By: Aries Chavez on 05-07-2024 Adrenocorticotropic Hormone 38.4 pg/mL 7.2-63.3 [facility] Comment on above: ACTH reference inter wendy for samples collected between 7 and10 AM.Performed at: - [facility] [id number] Director: Juan Hendricks PhD, Phone: [phone] Estimated GFR (CKD-EPI) > 60.0 mL/Min [facility] Creatinine Clearance (Chem 58.46 [facility] Nucleated erythrocytes [Pres ence] in Blood by Automated countOrdered By: Aries Chavez on 05-07-2024 Nucleated RBC Auto Ql (Bld) 0.0 /100{WBC} 0-0.5 [facility] Platelet mean volume [Entiti c volume] in Blood by Automated countOrdered By: Aries Chavez on 05-07-2024 Platelet mean volume (Bld) [Entitic vol] 8.2 fL Normal 6.3-10.7 [facility] Comment on above: Performed By: #### C BC ####[address] Platelets [#/volume] in Bloo d by Automated countOrdered By: Aries Chavez on 05-07-2024 Platelets (Bld) [#/Vol] 225 10*3/uL Normal 150-450 [facility] Comment on above: Performed By: #### C BC ####[address] Potassium [Moles/volume] in Serum or PlasmaOrdered By: Aries Chavez on 05-07-2024 Potassium [Moles/Vol] 4.4 mmol/L Normal 3.5-5.1 [facility] Comment on above: Performed By: #### H EPATIC, T4F, JER, TSH3, CMP ####[address]#### ACTH ####[facility] , Protein [Mass/volume] in Ser um or PlasmaOrdered By: Aries Chavez on 05-07-2024 Protein [Mass/Vol] 6.8 g/dL Normal 6.4-8.9 [facility] Comment on above: Performed By: #### H EPATIC, T4F, JER, TSH3, CMP ####[address]#### ACTH ####[facility] , Random cortisol measurementO rdered By: Aries Chavez on 05-07-2024 Cortisol [Mass/Vol] 14.4 ug/dL [facility] Comment on above: [facility] sign hanger supervisor and method:AMRITA [employer] DXI, POLYCLONAL ANTIBODY CORTISOL ASSAY.Reference range: AM 6 - 24 ug/dl PM <10 ug/dl Serum globulin measurement b y calculation (mass/volume)Ordered By: Aries Chavez on 05-07-2024 Globulin (S) [Mass/Vol] 3.0 g/dL Normal [facility] Comment on above: Performed By: #### H EPATIC, T4F, JER, TSH3, CMP ####[facility] [place] [address] [place]#### ACTH ####[facility] , Serum or plasma albumin/glob ulin mass ratioOrdered By: Aries Chavez on 05-07-2024 Albumin/Globulin [Mass ratio] 1.3 {ratio} [facility] Comment on above: Performed By: #### H EPATIC, T4F, JER, TSH3, CMP ####[facility] [place] [address] [place]#### ACTH ####[facility] , Serum or plasma anion gap de terminationOrdered By: Aries Chavez on 05-07-2024 Anion gap [Moles/Vol] 10.1 mmol/L Normal 6.0-15.0 [facility] Comment on above: Performed By: #### H EPATIC, T4F, JER, TSH3, CMP ####[facility] [place] [address] [place]#### ACTH ####[facility] , Serum or plasma non-glucuron idated bilirubin measurement (mass/volume)Ordered By: Aries Chavez on 05-07-2024 Bilirubin.indirect [Mass/Vol] 0.5 mg/dL [facility] Sodium [Moles/volume] in Ser um or PlasmaOrdered By: Aries Chavez on 05-07-2024 Sodium [Moles/Vol] 131 mmol/L Low 136-145 [facility] Comment on above: Performed By: #### H EPATIC, T4F, JER, TSH3, CMP ####[facility] [place] [address] [place]#### ACTH ####[facility] , Thyrotropin [Units/volume] i n Serum or PlasmaOrdered By: Aries Chavez on 05-07-2024 TSH Qn 36.65 m[IU]/L High 0.45-5.33 [facility] Comment on above: Performed By: #### H EPATIC, T4F, JER, TSH3, CMP ####[place] [address] [place] [address] [place]#### ACTH ####[facility] , Thyroxine (T4) free [Mass/vo lume] in Serum or PlasmaOrdered By: Aries Chavez on 05-07-2024 Free T4 [Mass/Vol] 0.60 ng/dL Low 0.61-1.12 [facility] Comment on above: Performed By: #### H EPATIC, T4F, JER, TSH3, CMP ####[facility] [place] [address] [place]#### ACTH ####[facility] , Urea nitrogen [Mass/volume] in Serum or PlasmaOrdered By: Aries Chavez on 05-07-2024 Urea nitrogen [Mass/Vol] 13 mg/dL Normal 7-25 [facility] Comment on above: Performed By: #### H EPATIC, T4F, JER, TSH3, CMP ####[facility] [place] [address] [place]#### ACTH ####[facility] , Follow-Upon 04-23-2024 Follow-Up [id number] Perla Ibarra 1955 F Date Provider Department Center 04/23/2024 [facility] MIGUEL [place] Family History Problem Relation Age of Onset Tuberculosis Mother Heart attack Brother Heart failure Maternal Grandmother Heart attack Maternal Grandfather Family Status - Relation Status Age at Mother Brother Maternal Grandmother Maternal Grandfather Level of Service:10628 [place] OFFICE/OUTPATIENT ESTABLISHED MOD MDM 30 MIN Reason for Visit and Comments: Congestive Heart Failure [127] Coronary Artery Disease [187] Normal [facility] Cortisolon 03-29-2024 Cortisol 11.8 ug/dL Normal [facility] Comment on above: Result Comment: Refe rence range: AM 6 - 24 ug/dl PM <10 ug/dl [facility] sign hanger supervisor and method: [employer] DXI, POLYCLONAL ANTIBODY CORTISOL ASSAY.PERFORMED BY:[address] [place], [place] [id number] MEDICAL DIRECTORSTEFANO HOLT M.D. Performed By: #### C ORT, T4F, TSH3 ####[address] Free T4 (Free Thyroxine)on 0 03-29-2024 Free T4 [Mass/Vol] 0.84 ng/dL Normal 0.61-1.12 [facility] Comment on above: Performed By: #### C ORT, T4F, TSH3 ####[address] Thyroid Stimulating Hormoneo n 03-29-2024 TSH Qn 20.08 m[IU]/L High 0.45-5.33 [facility] Comment on above: Performed By: #### C ORT, T4F, TSH3 ####[address] Alanine aminotransferase [En zymatic activity/volume] in Serum or PlasmaOrdered By: Aries Chavez on 03-26-2024 ALT [Catalytic activity/Vol] 17 U/L Normal 7-52 [facility] Comment on above: Performed By: #### C BC, CMP ####[place] [address] [place] Albumin [Mass/volume] in Ser um or Plasma by Bromocresol green (BCG) dye binding methoOrdered By: Aries Chavez on 06-25-2024 Albumin BCG dye [Mass/Vol] 3.9 g/dL 3.5-5.7 [facility] Alkaline phosphatase [Enzyma tic activity/volume] in Serum or PlasmaOrdered By: Aries Chavez on 03-26-2024 ALP [Catalytic activity/Vol] 123 U/L High 34-104 [facility] Comment on above: Performed By: #### C BC, CMP ####[address] Aspartate aminotransferase [ Enzymatic activity/volume] in Serum or PlasmaOrdered By: Aries Chavez on 03-26-2024 AST [Catalytic activity/Vol] 22 U/L Normal 13-39 [facility] Comment on above: Performed By: #### C BC, CMP ####[address] Automated basophil %Ordered By: Aries Chavez on 03-26-2024 Basophils/100 WBC (Bld) 3.0 % Normal . [facility] Comment on above: Performed By: #### C BC, CMP ####[address] Automated basophil countOrde red By: Aries Chavez on 03-26-2024 Basophils (Bld) [#/Vol] 0.2 10*3/uL Normal 0.0-0.2 [facility] Comment on above: Result Comment: PERF ORMED BY:[address] [place] [id number] MEDICAL NAHID HOLT M.D. Performed By: #### C BC, CMP ####[place] [phone] [facility] Automated blood monocyte cou ntOrdered By: Aries Chavez on 03-26-2024 Monocytes (Bld) [#/Vol] 0.7 10*3/uL Normal 0.0-0.8 [facility] Comment on above: Performed By: #### C BC, CMP ####[address] Automated eosinophil %Ordere d By: Aries Chavez on 03-26-2024 Eosinophils/100 WBC (Bld) 11.6 % Normal . [facility] Comment on above: Performed By: #### C BC, CMP ####[address] Automated eosinophil countOr dered By: Aries Chavez on 03-26-2024 Eosinophils (Bld) [#/Vol] 0.7 10*3/uL High 0.0-0.45 [facility] Comment on above: Performed By: #### C BC, CMP ####[address] Automated monocyte %Ordered By: Aries Chavez on 03-26-2024 Monocytes/100 WBC (Bld) 11.9 % Normal . [facility] Comment on above: Performed By: #### C BC, CMP ####[address] Automated neutrophil %Ordere d By: Aries Chavez on 03-26-2024 Neutrophils/100 WBC (Bld) 50.5 % Normal . [facility] Comment on above: Performed By: #### C BC, CMP ####[address] Bilirubin.total [Mass/volume ] in Serum or PlasmaOrdered By: Aries Chavez on 03-26-2024 Bilirubin [Mass/Vol] 0.6 mg/dL Normal 0.3-1.0 [facility] Comment on above: Performed By: #### C BC, CMP ####[place] [phone] [facility] Calcium [Mass/volume] in Ser um or PlasmaOrdered By: Aries Chavez on 03-26-2024 Calcium [Mass/Vol] 9.3 mg/dL Normal 8.6-10.3 [facility] Comment on above: Performed By: #### C BC, CMP ####[place] [phone] [facility] Carbon dioxide, total [Moles /volume] in Serum or PlasmaOrdered By: Aries Chavez on 03-26-2024 CO2 [Moles/Vol] 30.3 mmol/L Normal 21.0-31.0 [facility] Comment on above: Performed By: #### C BC, CMP ####[address] Chloride [Moles/volume] in S leena or PlasmaOrdered By: Aries Chavez on 03-26-2024 Chloride [Moles/Vol] 96 mmol/L Low 98-107 [facility] Comment on above: Performed By: #### C BC, CMP ####[address] Complete Blood Count Auto Di ffon 03-26-2024 Mean Corpuscular HGB Conc 33.3 g/dL Normal 32.0-35.0 [facility] Comment on above: Performed By: #### C BC, CMP ####[address] NRBC% 0.1 /100{WBC} Normal 0-0.5 [facility] Comment on above: Performed By: #### C BC, CMP ####[address] Comprehensive Metabolic Pane onesimo 03-26-2024 Albumin [Mass/Vol] 3.9 g/dL Normal 3.5-5.7 [facility] Comment on above: Performed By: #### C BC, CMP ####[address] Creatinine Clr Calc Pharmacy 62.20 Normal [facility] Comment on above: Result Comment: PERF ORMED BY:[address] [place], [place] [phone] MEDICAL NAHID HOLT M.D. Performed By: #### C BC, CMP ####[address] GFR/1.73 sq M.predicted MDRD (S/P/Bld) [Vol rate/Area] mL/min/{1.73_m2} Normal [facility] Comment on above: Performed By: #### C BC, CMP ####[address] Creatinine [Mass/volume] in Serum or PlasmaOrdered By: Aries Chavez on 03-26-2024 Creatinine [Mass/Vol] 0.83 mg/dL Normal 0.60-1.20 [facility] Comment on above: Performed By: #### C BC, CMP ####[place] [phone] [facility] Erythrocyte distribution wid th [Ratio] by Automated countOrdered By: Aries Chavez on 03-26-2024 Erythrocyte distribution width (RBC) [Ratio] 13.4 % Normal 11.9-15.3 [facility] Comment on above: Performed By: #### C ALEXANDREA, CMP ####[address] Erythrocytes [#/volume] in B lood by Automated countOrdered By: Aries Chavez on 03-26-2024 RBC (Bld) [#/Vol] 4.08 10*6/uL Normal 3.60-5.00 [facility] Comment on above: Performed By: #### C BC, CMP ####[place] [phone] [facility] Glucose [Mass/volume] in Ser um or PlasmaOrdered By: Aries Chavez on 03-26-2024 Glucose [Mass/Vol] 95 mg/dL Normal 70-100 [facility] Comment on above: ADA recommended refe rence rangeRandom Glucose Reference Range is dependent on time and content of last meal. Glucose of more than 200 mg/dL in a nonstressed, ambulatory subject supports the diagnosis of Diabetes Mellitus. Result Comment: [place] om Glucose Reference Range is dependent on time and content of last meal. Glucose of more than 200 mg/dL in a nonstressed, ambulatory subject supports the diagnosis of Diabetes Mellitus. ADA recommended reference range Performed By: #### C BC, CMP ####[place] [phone] [place] Hematocrit [Volume Fraction] of Blood by Automated countOrdered By: Aries Chavez on 03-26-2024 Hematocrit (Bld) [Volume fraction] 36.6 % Normal 34.0-46.4 [facility] Comment on above: Performed By: #### C ALEXANDREA, CMP ####[address] Hemoglobin [Mass/volume] in BloodOrdered By: Aries Chavez on 03-26-2024 Hemoglobin (Bld) [Mass/Vol] 12.2 g/dL Normal 11.8-15.4 [facility] Comment on above: Performed By: #### C ALEXANDREA, CMP ####[address] Leukocytes [#/volume] correc gabriel for nucleated erythrocytes in Blood by Automated counOrdered By: Aries Chavez on 03-26-2024 WBC corrected for nucl RBC Auto (Bld) [#/Vol] 5.8 10*3/uL 3.8-11.6 [facility] Leukocytes [#/volume] in Blo od by Automated countOrdered By: Aries Chavez on 03-26-2024 WBC (Bld) [#/Vol] 5.8 10*3/uL Normal 3.8-11.6 [facility] Comment on above: Performed By: #### C ALEXANDREA, CMP ####[address] Lymphocytes [#/volume] in Bl ood by Automated countOrdered By: Aries Chavez on 03-26-2024 Lymphocytes (Bld) [#/Vol] 1.3 10*3/uL Normal 1.00-4.8 [facility] Comment on above: Performed By: #### C ALEXANDREA, CMP ####[address] Lymphocytes/100 leukocytes i n Blood by Automated countOrdered By: Aries Chavez on 03-26-2024 Lymphocytes/100 WBC (Bld) 23.0 % Normal . [facility] Comment on above: Performed By: #### C BC, CMP ####[address] MCH [Entitic mass] by Automa gabriel countOrdered By: Aries Chavez on 03-26-2024 MCH (RBC) [Entitic mass] 29.9 pg Normal 24.7-34.3 [facility] Comment on above: Performed By: #### C BC, CMP ####[address] MCHC Auto (RBC) [Mass/Vol]Or dered By: Aries Chavez on 03-26-2024 MCHC (RBC) [Mass/Vol] 33.3 g/dL 32.0-35.0 [facility] MCV [Entitic volume] by Auto mated countOrdered By: Aries Chavez on 03-26-2024 MCV (RBC) [Entitic vol] 89.7 fL Normal 80-100 [facility] Comment on above: Performed By: #### C BC, CMP ####[address] Neutrophils [#/volume] in Bl ood by Automated countOrdered By: Aries Chavez on 03-26-2024 Neutrophils (Bld) [#/Vol] 2.9 10*3/uL Normal 1.8-7.7 [facility] Comment on above: Performed By: #### C BC, CMP ####[address] No Panel InformationOrdered By: Aries Chavez on 03-26-2024 Estimated GFR (CKD-EPI) > 60.0 mL/Min [facility] Creatinine Clearance (Chem 62.20 [facility] Nucleated erythrocytes [Pres ence] in Blood by Automated countOrdered By: Aries Chavez on 03-26-2024 Nucleated RBC Auto Ql (Bld) 0.1 /100{WBC} 0-0.5 [facility] Platelet mean volume [Entiti c volume] in Blood by Automated countOrdered By: Aries Chavez on 03-26-2024 Platelet mean volume (Bld) [Entitic vol] 8.8 fL Normal 6.3-10.7 [facility] Comment on above: Performed By: #### C BC, CMP ####[address] Platelets [#/volume] in Bloo d by Automated countOrdered By: Aries Chavez on 03-26-2024 Platelets (Bld) [#/Vol] 235 10*3/uL Normal 150-450 [facility] Comment on above: Performed By: #### C BC, CMP ####[address] Potassium [Moles/volume] in Serum or PlasmaOrdered By: Aries Chavez on 03-26-2024 Potassium [Moles/Vol] 4.9 mmol/L Normal 3.5-5.1 [facility] Comment on above: Performed By: #### C ALEXANDREA, CMP ####[address] Protein [Mass/volume] in Ser um or PlasmaOrdered By: Aries Chavez on 03-26-2024 Protein [Mass/Vol] 7.0 g/dL Normal 6.4-8.9 [facility] Comment on above: Performed By: #### C BC, CMP ####[address] Serum globulin measurement b y calculation (mass/volume)Ordered By: Aries Chavez on 03-26-2024 Globulin (S) [Mass/Vol] 3.1 g/dL [facility] Comment on above: Performed By: #### C BC, CMP ####[place] [phone] [facility] Serum or plasma albumin/glob ulin mass ratioOrdered By: Aries Chavez on 03-26-2024 Albumin/Globulin [Mass ratio] 1.3 {ratio} [facility] Comment on above: Performed By: #### C BC, CMP ####[place] [phone] [facility] Serum or plasma anion gap de terminationOrdered By: Aries Chavez on 03-26-2024 Anion gap [Moles/Vol] 9.6 mmol/L Normal 6.0-15.0 [facility] Comment on above: Performed By: #### C BC, CMP ####[place] [phone] [facility] Sodium [Moles/volume] in Ser um or PlasmaOrdered By: Aries Chavez on 03-26-2024 Sodium [Moles/Vol] 131 mmol/L Low 136-145 [facility] Comment on above: Performed By: #### C BC, CMP ####[place] [phone] [facility] Urea nitrogen [Mass/volume] in Serum or PlasmaOrdered By: Aries Chavez on 03-26-2024 Urea nitrogen [Mass/Vol] 20 mg/dL Normal 7-25 [facility] Comment on above: Performed By: #### C BC, CMP ####[place] [phone] [facility] CT abdomen pelvis w conon CT abdomen pelvis w con Normal [facility] Complete Blood Count Auto Di ffon 03-14-2024 Basophils (Bld) [#/Vol] 0.2 10*3/uL Normal 0.0-0.2 [facility] Comment on above: Result Comment: PERF ORMED BY:[address] [place], [place] [id number] MEDICAL NAHID HOLT M.D. Performed By: #### C BC ####[place] [phone] [facility] Basophils/100 WBC (Bld) 2.9 % Normal . [facility] Comment on above: Performed By: #### C BC ####[place] [phone] [facility] Eosinophils (Bld) [#/Vol] 0.7 10*3/uL High 0.0-0.45 [facility] Comment on above: Performed By: #### C BC ####[address] Eosinophils/100 WBC (Bld) 10.7 % Normal . [facility] Comment on above: Performed By: #### C BC ####[address] Erythrocyte distribution width (RBC) [Ratio] 13.8 % Normal 11.9-15.3 [facility] Comment on above: Performed By: #### C BC ####[address] Hematocrit (Bld) [Volume fraction] 36.2 % Normal 34.0-46.4 [facility] Comment on above: Performed By: #### C BC ####[address] Hemoglobin (Bld) [Mass/Vol] 12.3 g/dL Normal 11.8-15.4 [facility] Comment on above: Performed By: #### C BC ####[address] Lymphocytes (Bld) [#/Vol] 1.4 10*3/uL Normal 1.00-4.8 [facility] Comment on above: Performed By: #### C BC ####[address] Lymphocytes/100 WBC (Bld) 22.2 % Normal . [facility] Comment on above: Performed By: #### C BC ####[address] MCH (RBC) [Entitic mass] 30.2 pg Normal 24.7-34.3 [facility] Comment on above: Performed By: #### C BC ####[place] [phone] [facility] MCV (RBC) [Entitic vol] 89.0 fL Normal 80-100 [facility] Comment on above: Performed By: #### C BC ####[place] [address] [place] Mean Corpuscular HGB Conc 34.0 g/dL Normal 32.0-35.0 [facility] Comment on above: Performed By: #### C BC ####[address] Monocytes (Bld) [#/Vol] 0.7 10*3/uL Normal 0.0-0.8 [facility] Comment on above: Performed By: #### C BC ####[address] Monocytes/100 WBC (Bld) 10.7 % Normal . [facility] Comment on above: Performed By: #### C BC ####[address] Neutrophils (Bld) [#/Vol] 3.5 10*3/uL Normal 1.8-7.7 [facility] Comment on above: Performed By: #### C BC ####[address] Neutrophils/100 WBC (Bld) 53.5 % Normal . [facility] Comment on above: Performed By: #### C BC ####[address] NRBC% 0.0 /100{WBC} Normal 0-0.5 [facility] Comment on above: Performed By: #### C BC ####[address] Platelet mean volume (Bld) [Entitic vol] 7.9 fL Normal 6.3-10.7 [facility] Comment on above: Performed By: #### C BC ####[address] Platelets (Bld) [#/Vol] 258 10*3/uL Normal 150-450 [facility] Comment on above: Performed By: #### C BC ####[address] RBC (Bld) [#/Vol] 4.07 10*6/uL Normal 3.60-5.00 [facility] Comment on above: Performed By: #### C BC ####[place] [phone] [facility] WBC (Bld) [#/Vol] 6.5 10*3/uL Normal 3.8-11.6 [facility] Comment on above: Performed By: #### C BC ####[place] [phone] [facility] Comprehensive Metabolic Pane onesimo 03-14-2024 Albumin [Mass/Vol] 4.0 g/dL Normal 3.5-5.7 [facility] Comment on above: Order Comment: STAT BUN/CREAT FOR CT Performed By: #### C MP ####[address] Albumin/Globulin [Mass ratio] 1.1 {ratio} Normal [facility] Comment on above: Order Comment: STAT BUN/CREAT FOR CT Performed By: #### C MP ####[address] ALP [Catalytic activity/Vol] 181 U/L High 34-104 [facility] Comment on above: Order Comment: STAT BUN/CREAT FOR CT Performed By: #### C MP ####[address] ALT [Catalytic activity/Vol] 28 U/L Normal 7-52 [facility] Comment on above: Order Comment: STAT BUN/CREAT FOR CT Performed By: #### C MP ####[place] [phone] [facility] Anion gap [Moles/Vol] 11.0 mmol/L Normal 6.0-15.0 [facility] Comment on above: Order Comment: STAT BUN/CREAT FOR CT Performed By: #### C MP ####[place] [phone] [facility] AST [Catalytic activity/Vol] 27 U/L Normal 13-39 [facility] Comment on above: Order Comment: STAT BUN/CREAT FOR CT Performed By: #### C MP ####[place] [phone] [facility] Bilirubin [Mass/Vol] 0.5 mg/dL Normal 0.3-1.0 [facility] Comment on above: Order Comment: STAT BUN/CREAT FOR CT Performed By: #### C MP ####[place] [phone] [facility] Calcium [Mass/Vol] 9.6 mg/dL Normal 8.6-10.3 [facility] Comment on above: Order Comment: STAT BUN/CREAT FOR CT Performed By: #### C MP ####[place] [phone] [facility] Chloride [Moles/Vol] 98 mmol/L Normal 98-107 [facility] Comment on above: Order Comment: STAT BUN/CREAT FOR CT Performed By: #### C MP ####[address] CO2 [Moles/Vol] 27.8 mmol/L Normal 21.0-31.0 [facility] Comment on above: Order Comment: STAT BUN/CREAT FOR CT Performed By: #### C MP ####[address] Creatinine [Mass/Vol] 0.87 mg/dL Normal 0.60-1.20 [facility] Comment on above: Order Comment: STAT BUN/CREAT FOR CT Performed By: #### C MP ####[address] Creatinine Clr Calc Pharmacy 59.34 Normal [facility] Comment on above: Order Comment: STAT BUN/CREAT FOR CT Result Comment: PERF ORMED BY:[address] [place], [place] [id number] MEDICAL DIRECTORSTEFANO HOLT M.D. Performed By: #### C MP ####[place] [phone] [facility] GFR/1.73 sq M.predicted MDRD (S/P/Bld) [Vol rate/Area] mL/min/{1.73_m2} Normal [facility] Comment on above: Order Comment: STAT BUN/CREAT FOR CT Performed By: #### C MP ####[address] Globulin (S) [Mass/Vol] 3.6 g/dL Normal [facility] Comment on above: Order Comment: STAT BUN/CREAT FOR CT Performed By: #### C MP ####[address] Glucose [Mass/Vol] 96 mg/dL Normal 70-100 [facility] Comment on above: Order Comment: STAT BUN/CREAT FOR CT Result Comment: [place] Glucose Reference Range is dependent on time and content of last meal. Glucose of more than 200 mg/dL in a nonstressed, ambulatory subject supports the diagnosis of Diabetes Mellitus. ADA recommended reference range Performed By: #### C MP ####[address] Potassium [Moles/Vol] 4.8 mmol/L Normal 3.5-5.1 [facility] Comment on above: Order Comment: STAT BUN/CREAT FOR CT Performed By: #### C MP ####[address] Protein [Mass/Vol] 7.6 g/dL Normal 6.4-8.9 [facility] Comment on above: Order Comment: STAT BUN/CREAT FOR CT Performed By: #### C MP ####[address] Sodium [Moles/Vol] 132 mmol/L Low 136-145 [facility] Comment on above: Order Comment: STAT BUN/CREAT FOR CT Performed By: #### C MP ####[address] Urea nitrogen [Mass/Vol] 23 mg/dL Normal 7-25 [facility] Comment on above: Order Comment: STAT BUN/CREAT FOR CT Performed By: #### C MP ####[address] Adrenocorticotropic Hormone PLon 02-27-[address] 39.6 pg/mL Normal 7.2-63.3 [facility] Comment on above: Result Comment: ACTH reference interval for samples collected between 7 and 10 AM. Performed at: - [facility] [id number] Field Service Specialist: Juan Hendricks PhD, Phone: [phone] BY:[address] [place], [place] [id number] MEDICAL DIRECTORSTEFANO HOLT M.D. Performed By: #### T 4F, CMP, TSH3, JER ####[address]#### ACTH ####[facility] , Complete Blood Count Auto Di ffon 02-27-2024 Basophils (Bld) [#/Vol] 0.2 10*3/uL Normal 0.0-0.2 [facility] Comment on above: Result Comment: PERF ORMED BY:[address] [place], [place] [id number] MEDICAL DIRECTORSTEFANO HOLT M.D. Performed By: #### C BC ####[address] Basophils/100 WBC (Bld) 3.5 % Normal . [facility] Comment on above: Performed By: #### C BC ####[address] Eosinophils (Bld) [#/Vol] 0.9 10*3/uL High 0.0-0.45 [facility] Comment on above: Performed By: #### C BC ####[address] Eosinophils/100 WBC (Bld) 13.9 % Normal . [facility] Comment on above: Performed By: #### C BC ####[address] Erythrocyte distribution width (RBC) [Ratio] 14.0 % Normal 11.9-15.3 [facility] Comment on above: Performed By: #### C BC ####[address] Hematocrit (Bld) [Volume fraction] 35.5 % Normal 34.0-46.4 [facility] Comment on above: Performed By: #### C BC ####[address] Hemoglobin (Bld) [Mass/Vol] 11.7 g/dL Low 11.8-15.4 [facility] Comment on above: Performed By: #### C BC ####[address] Lymphocytes (Bld) [#/Vol] 1.2 10*3/uL Normal 1.00-4.8 [facility] Comment on above: Performed By: #### C BC ####[address] Lymphocytes/100 WBC (Bld) 17.7 % Normal . [facility] Comment on above: Performed By: #### C BC ####[address] MCH (RBC) [Entitic mass] 29.6 pg Normal 24.7-34.3 [facility] Comment on above: Performed By: #### C BC ####[address] MCV (RBC) [Entitic vol] 89.5 fL Normal 80-100 [facility] Comment on above: Performed By: #### C BC ####[address] Mean Corpuscular HGB Conc 33.0 g/dL Normal 32.0-35.0 [facility] Comment on above: Performed By: #### C BC ####[address] Monocytes (Bld) [#/Vol] 0.7 10*3/uL Normal 0.0-0.8 [facility] Comment on above: Performed By: #### C BC ####[address] Monocytes/100 WBC (Bld) 11.0 % Normal . [facility] Comment on above: Performed By: #### C BC ####[address] Neutrophils (Bld) [#/Vol] 3.6 10*3/uL Normal 1.8-7.7 [facility] Comment on above: Performed By: #### C BC ####[address] Neutrophils/100 WBC (Bld) 53.9 % Normal . [facility] Comment on above: Performed By: #### C BC ####[address] NRBC% 0.2 /100{WBC} Normal 0-0.5 [facility] Comment on above: Performed By: #### C BC ####[address] Platelet mean volume (Bld) [Entitic vol] 8.3 fL Normal 6.3-10.7 [facility] Comment on above: Performed By: #### C BC ####[address] Platelets (Bld) [#/Vol] 262 10*3/uL Normal 150-450 [facility] Comment on above: Performed By: #### C BC ####[address] RBC (Bld) [#/Vol] 3.97 10*6/uL Normal 3.60-5.00 [facility] Comment on above: Performed By: #### C BC ####[address] WBC (Bld) [#/Vol] 6.7 10*3/uL Normal 3.8-11.6 [facility] Comment on above: Performed By: #### C BC ####[address] Comprehensive Metabolic Pane onesimo 02-27-2024 Albumin [Mass/Vol] 3.8 g/dL Normal 3.5-5.7 [facility] Comment on above: Performed By: #### T 4F, CMP, TSH3, JER ####[address]#### ACTH ####[facility] , Albumin/Globulin [Mass ratio] 1.1 {ratio} Normal [facility] Comment on above: Performed By: #### T 4F, CMP, TSH3, JER ####[address]#### ACTH ####[facility] , ALP [Catalytic activity/Vol] 370 U/L High 34-104 [facility] Comment on above: Performed By: #### T 4F, CMP, TSH3, JER ####[address]#### ACTH ####[facility] , ALT [Catalytic activity/Vol] 143 U/L High 7-52 [facility] Comment on above: Performed By: #### T 4F, CMP, TSH3, JER ####[address]#### ACTH ####[facility] , Anion gap [Moles/Vol] 8.9 mmol/L Normal 6.0-15.0 [facility] Comment on above: Performed By: #### T 4F, CMP, TSH3, JER ####[address]#### ACTH ####[facility] , AST [Catalytic activity/Vol] 98 U/L High 13-39 [facility] Comment on above: Performed By: #### T 4F, CMP, TSH3, JER ####[address]#### ACTH ####[facility] , Bilirubin [Mass/Vol] 0.6 mg/dL Normal 0.3-1.0 [facility] Comment on above: Performed By: #### T 4F, CMP, TSH3, JER ####[address]#### ACTH ####[facility] , Calcium [Mass/Vol] 9.6 mg/dL Normal 8.6-10.3 [facility] Comment on above: Performed By: #### T 4F, CMP, TSH3, JER ####[address]#### ACTH ####[facility] , Chloride [Moles/Vol] 97 mmol/L Low 98-107 [facility] Comment on above: Performed By: #### T 4F, CMP, TSH3, JER ####[address]#### ACTH ####[facility] , CO2 [Moles/Vol] 29.6 mmol/L Normal 21.0-31.0 [facility] Comment on above: Performed By: #### T 4F, CMP, TSH3, JER ####[address]#### ACTH ####[facility] , Creatinine [Mass/Vol] 0.80 mg/dL Normal 0.60-1.20 [facility] Comment on above: Performed By: #### T 4F, CMP, TSH3, JER ####[address]#### ACTH ####[facility] , Creatinine Clr Calc Pharmacy 64.54 Normal [facility] Comment on above: Performed By: #### T 4F, CMP, TSH3, JER ####[place] [address] [place]#### ACTH ####[facility] , GFR/1.73 sq M.predicted MDRD (S/P/Bld) [Vol rate/Area] mL/min/{1.73_m2} Normal [facility] Comment on above: Performed By: #### T 4F, CMP, TSH3, JER ####[place] [address] [place]#### ACTH ####[facility] , Globulin (S) [Mass/Vol] 3.6 g/dL Normal [facility] Comment on above: Performed By: #### T 4F, CMP, TSH3, JER ####[place] [address] [place]#### ACTH ####[facility] , Glucose [Mass/Vol] 95 mg/dL Normal 70-100 [facility] Comment on above: Result Comment: [place] Glucose Reference Range is dependent on time and content of last meal. Glucose of more than 200 mg/dL in a nonstressed, ambulatory subject supports the diagnosis of Diabetes Mellitus. ADA recommended reference range Performed By: #### T 4F, CMP, TSH3, JER ####[place] [address] [place]#### ACTH ####[facility] , Potassium [Moles/Vol] 4.5 mmol/L Normal 3.5-5.1 [facility] Comment on above: Performed By: #### T 4F, CMP, TSH3, JER ####[place] [address] [place]#### ACTH ####[facility] , Protein [Mass/Vol] 7.4 g/dL Normal 6.4-8.9 [facility] Comment on above: Performed By: #### T 4F, CMP, TSH3, JER ####[place] [address] [place] [id number] [facility]#### ACTH ####[facility] , Sodium [Moles/Vol] 131 mmol/L Low 136-145 [facility] Comment on above: Performed By: #### T 4F, CMP, TSH3, JER ####[address]#### ACTH ####[facility] , Urea nitrogen [Mass/Vol] 12 mg/dL Normal 7-25 [facility] Comment on above: Performed By: #### T 4F, CMP, TSH3, JER ####[address]#### ACTH ####[facility] , Cortisolon 02-27-2024 Cortisol 17.4 ug/dL Normal [facility] Comment on above: Result Comment: Refe rence range: AM 6 - 24 ug/dl PM <10 ug/dl [facility] sign hanger supervisor and method: AMRITA UNICEL DXI, POLYCLONAL ANTIBODY CORTISOL ASSAY.PERFORMED BY:[address] [place], [place] [phone] MEDICAL DIRECTORSTEFANO HOLT M.D. Performed By: #### T 4F, CMP, TSH3, JER ####[address]#### ACTH ####[facility] , No Panel InformationOrdered By: Aries Chavez on 02-27-2024 Adrenocorticotropic Hormone 39.6 pg/mL 7.2-63.3 [facility] Comment on above: ACTH reference inter wendy for samples collected between 7 and10 AM.Performed at: [address] [id number] Director: Juan Hendricks PhD, Phone: [phone] Random cortisol measurementO rdered By: Aries Chavez on 02-27-2024 Cortisol [Mass/Vol] 17.4 ug/dL [facility] Comment on above: [facility] sign hanger supervisor and method:AMRITA UNICEL DXI, POLYCLONAL ANTIBODY CORTISOL ASSAY.Reference range: AM 6 - 24 ug/dl PM <10 ug/dl Thyrotropin [Units/volume] i n Serum or PlasmaOrdered By: Aries Chavez on 02-27-2024 TSH Qn 23.15 m[IU]/L High 0.45-5.33 [facility] Comment on above: Performed By: #### T 4F, CMP, TSH3, JER ####[facility]#### ACTH ####[facility] , Thyroxine (T4) free [Mass/vo lume] in Serum or PlasmaOrdered By: Aries Chavez on 02-27-2024 Free T4 [Mass/Vol] 0.91 ng/dL Normal 0.61-1.12 [facility] Comment on above: Performed By: #### T 4F, CMP, TSH3, JER ####[facility]#### ACTH ####[facility] , Adrenocorticotropic Hormone PLon 01-16-[address] 34.0 pg/mL Normal 7.2-63.3 [facility] Comment on above: Result Comment: ACTH reference interval for samples collected between 7 and 10 AM. Performed at: [facility] Lab[address] [id number] Field Service Specialist: Juan Hendricks PhD, Phone: [phone] BY:[address] [place]ISMalouGabeGREENLEAF, [place] [phone] MEDICAL DIRECTORSTEFANO HOLT M.D. Performed By: #### T SH3, CMP, T4F, JER ####[facility]#### ACTH ####[facility] , Complete Blood Count Auto Di ffon 01-16-2024 Basophils (Bld) [#/Vol] 0.2 10*3/uL Normal 0.0-0.2 [facility] Comment on above: Result Comment: PERF ORMED BY:[place] [address] [address] [place], [place] [phone] MEDICAL DIRECTORSTEFANO HOLT M.D. Performed By: #### C BC ####[place] [id number] [facility] Basophils/100 WBC (Bld) 2.5 % Normal . [facility] Comment on above: Performed By: #### C BC ####[place] [id number] [facility] Eosinophils (Bld) [#/Vol] 0.5 10*3/uL High 0.0-0.45 [facility] Comment on above: Performed By: #### C BC ####[place] [id number] [facility] Eosinophils/100 WBC (Bld) 8.2 % Normal . [facility] Comment on above: Performed By: #### C BC ####[place] [id number] [facility] Erythrocyte distribution width (RBC) [Ratio] 18.1 % High 11.9-15.3 [facility] Comment on above: Performed By: #### C BC ####[place] [id number] [facility] Hematocrit (Bld) [Volume fraction] 35.0 % Normal 34.0-46.4 [facility] Comment on above: Performed By: #### C BC ####[place] [id number] [facility] Hemoglobin (Bld) [Mass/Vol] 11.5 g/dL Low 11.8-15.4 [facility] Comment on above: Performed By: #### C BC ####[place] [id number] [facility] Lymphocytes (Bld) [#/Vol] 1.0 10*3/uL Normal 1.00-4.8 [facility] Comment on above: Performed By: #### C BC ####[address] Lymphocytes/100 WBC (Bld) 15.2 % Normal . [facility] Comment on above: Performed By: #### C BC ####[place] [id number] [facility] MCH (RBC) [Entitic mass] 28.2 pg Normal 24.7-34.3 [facility] Comment on above: Performed By: #### C BC ####[address] MCV (RBC) [Entitic vol] 85.5 fL Normal 80-100 [facility] Comment on above: Performed By: #### C BC ####[address] Mean Corpuscular HGB Conc 32.9 g/dL Normal 32.0-35.0 [facility] Comment on above: Performed By: #### C BC ####[address] Monocytes (Bld) [#/Vol] 0.6 10*3/uL Normal 0.0-0.8 [facility] Comment on above: Performed By: #### C BC ####[address] Monocytes/100 WBC (Bld) 9.5 % Normal . [facility] Comment on above: Performed By: #### C BC ####[address] Neutrophils (Bld) [#/Vol] 4.2 10*3/uL Normal 1.8-7.7 [facility] Comment on above: Performed By: #### C BC ####[address] Neutrophils/100 WBC (Bld) 64.6 % Normal . [facility] Comment on above: Performed By: #### C BC ####[address] NRBC% 0.1 /100{WBC} Normal 0-0.5 [facility] Comment on above: Performed By: #### C BC ####[address] Platelet mean volume (Bld) [Entitic vol] 7.9 fL Normal 6.3-10.7 [facility] Comment on above: Performed By: #### C BC ####[address] Platelets (Bld) [#/Vol] 272 10*3/uL Normal 150-450 [facility] Comment on above: Performed By: #### C BC ####[address] RBC (Bld) [#/Vol] 4.09 10*6/uL Normal 3.60-5.00 [facility] Comment on above: Performed By: #### C BC ####[address] WBC (Bld) [#/Vol] 6.5 10*3/uL Normal 3.8-11.6 [facility] Comment on above: Performed By: #### C BC ####[address] Comprehensive Metabolic Pane onesimo 01-16-2024 Albumin [Mass/Vol] 3.9 g/dL Normal 3.5-5.7 [facility] Comment on above: Performed By: #### T SH3, CMP, T4F, JER ####[address]#### ACTH ####[facility] , Albumin/Globulin [Mass ratio] 1.1 {ratio} Normal [facility] Comment on above: Performed By: #### T SH3, CMP, T4F, JER ####[address]#### ACTH ####[facility] , ALP [Catalytic activity/Vol] 115 U/L High 34-104 [facility] Comment on above: Performed By: #### T SH3, CMP, T4F, JER ####[address]#### ACTH ####[facility] , ALT [Catalytic activity/Vol] 49 U/L Normal 7-52 [facility] Comment on above: Performed By: #### T SH3, CMP, T4F, JER ####[address]#### ACTH ####[facility] , Anion gap [Moles/Vol] 7.1 mmol/L Normal 6.0-15.0 [facility] Comment on above: Performed By: #### T SH3, CMP, T4F, JER ####[place] [address] [place]#### ACTH ####[facility] , AST [Catalytic activity/Vol] 43 U/L High 13-39 [facility] Comment on above: Performed By: #### T SH3, CMP, T4F, JER ####[address]#### ACTH ####[facility] , Bilirubin [Mass/Vol] 0.6 mg/dL Normal 0.3-1.0 [facility] Comment on above: Performed By: #### T SH3, CMP, T4F, JER ####[place] [address] [place]#### ACTH ####[facility] , Calcium [Mass/Vol] 9.5 mg/dL Normal 8.6-10.3 [facility] Comment on above: Performed By: #### T SH3, CMP, T4F, JER ####[place] [address] [place]#### ACTH ####[facility] , Chloride [Moles/Vol] 99 mmol/L Normal 98-107 [facility] Comment on above: Performed By: #### T SH3, CMP, T4F, JER ####[place] [address] [place]#### ACTH ####[facility] , CO2 [Moles/Vol] 29.3 mmol/L Normal 21.0-31.0 [facility] Comment on above: Performed By: #### T SH3, CMP, T4F, JER ####[address]#### ACTH ####[facility] , Creatinine [Mass/Vol] 0.68 mg/dL Normal 0.60-1.20 [facility] Comment on above: Performed By: #### T SH3, CMP, T4F, JER ####[place] [address] [place]#### ACTH ####[facility] , Creatinine Clr Calc Pharmacy 64.54 Normal [facility] Comment on above: Performed By: #### T SH3, CMP, T4F, JER ####[address]#### ACTH ####[facility] , GFR/1.73 sq M.predicted MDRD (S/P/Bld) [Vol rate/Area] mL/min/{1.73_m2} Normal [facility] Comment on above: Performed By: #### T SH3, CMP, T4F, JER ####[place] [address] [place]#### ACTH ####[facility] , Globulin (S) [Mass/Vol] 3.7 g/dL Normal [facility] Comment on above: Performed By: #### T SH3, CMP, T4F, JER ####[place] [address] [place]#### ACTH ####[facility] , Glucose [Mass/Vol] 92 mg/dL Normal 70-100 [facility] Comment on above: Result Comment: [place] Glucose Reference Range is dependent on time and content of last meal. Glucose of more than 200 mg/dL in a nonstressed, ambulatory subject supports the diagnosis of Diabetes Mellitus. ADA recommended reference range Performed By: #### T SH3, CMP, T4F, JER ####[place] [address] [place] [address] [place]#### ACTH ####[facility] , Potassium [Moles/Vol] 4.4 mmol/L Normal 3.5-5.1 [facility] Comment on above: Performed By: #### T SH3, CMP, T4F, JER ####[address]#### ACTH ####[facility] , Protein [Mass/Vol] 7.6 g/dL Normal 6.4-8.9 [facility] Comment on above: Performed By: #### T SH3, CMP, T4F, JER ####[place] [address] [place]#### ACTH ####[facility] , Sodium [Moles/Vol] 131 mmol/L Low 136-145 [facility] Comment on above: Performed By: #### T SH3, CMP, T4F, JER ####[place] [address] [place]#### ACTH ####[facility] , Urea nitrogen [Mass/Vol] 16 mg/dL Normal 7-25 [facility] Comment on above: Performed By: #### T SH3, CMP, T4F, JER ####[address]#### ACTH ####[facility] , Cortisolon 01-16-2024 Cortisol 14.4 ug/dL Normal [facility] Comment on above: Result Comment: Refe rence range: AM 6 - 24 ug/dl PM <10 ug/dl [facility] sign hanger supervisor and method: AMRITA UNICEL DXI, POLYCLONAL ANTIBODY CORTISOL ASSAY.PERFORMED BY:[address] ESPOS[place]OGREENLEAF, [place] [phone] MEDICAL DIRECTORSTEFANO HOLT M.D. Performed By: #### T SH3, CMP, T4F, JER ####[address]#### ACTH ####[facility] , Free T4 (Free Thyroxine)on 0 01-16-2024 Free T4 [Mass/Vol] 0.56 ng/dL Low 0.61-1.12 [facility] Comment on above: Performed By: #### T SH3, CMP, T4F, JER ####[address]#### ACTH ####[facility] , Thyroid Stimulating Hormoneo n 01-16-2024 TSH Qn 35.64 m[IU]/L High 0.45-5.33 [facility] Comment on above: Performed By: #### T SH3, CMP, T4F, JER ####[address]#### ACTH ####[facility] , Absolute reticulocyte countO rdered By: Aries Chavez on 12-28-2023 Reticulocytes (Bld) [#/Vol] 0.068 10*6/uL 0.024-0.08 4 [facility] Adrenocorticotropic Hormone PLon 12-28-[address] 11.2 pg/mL Normal 7.2-63.3 [facility] Comment on above: Result Comment: ACTH reference interval for samples collected between 7 and 10 AM. Performed at: [facility] Lab[address] [id number] Field Service Specialist: Juan Hendricks PhD, Phone: [phone] BY:[address] ESPOSITOGREENLEAF, [place] [phone] MEDICAL DIRECTORSTEFANO HOLT M.D. Performed By: #### T 4F, RETIC, FE and TIBC, CMP, LDH, [id number], JER, CBC, TSH3, KRISTI ####[place] [id number] [facility]#### EPO, ACTH ####[facility] , Alanine aminotransferase [En zymatic activity/volume] in Serum or PlasmaOrdered By: Aries Chavez on 12-28-2023 ALT [Catalytic activity/Vol] 23 U/L Normal 7-52 [facility] Comment on above: Performed By: #### T 4F, RETIC, FE and TIBC, CMP, LDH, [id number], JER, CBC, TSH3, KRISTI ####[place] [id number] [facility]#### EPO, ACTH ####[facility] , Albumin [Mass/volume] in Ser um or Plasma by Bromocresol green (BCG) dye binding methoOrdered By: Aries Chavez on 12-28-2023 Albumin BCG dye [Mass/Vol] 3.8 g/dL 3.5-5.7 [facility] Alkaline phosphatase [Enzyma tic activity/volume] in Serum or PlasmaOrdered By: Aries Chavez on 12-28-2023 ALP [Catalytic activity/Vol] 93 U/L Normal 34-104 [facility] Comment on above: Performed By: #### T 4F, RETIC, FE and TIBC, CMP, LDH, [id number], JER, CBC, TSH3, KRISTI ####[place] [id number] [place]#### EPO, ACTH ####[facility] , Aspartate aminotransferase [ Enzymatic activity/volume] in Serum or PlasmaOrdered By: Aries Chavez on 12-28-2023 AST [Catalytic activity/Vol] 25 U/L Normal 13-39 [facility] Comment on above: Performed By: #### T 4F, RETIC, FE and TIBC, CMP, LDH, [id number], JER, CBC, TSH3, KRISTI ####[address] [place] [address] [place]#### EPO, ACTH ####[facility] , Automated basophil %Ordered By: Aries Chavez on 12-28-2023 Basophils/100 WBC (Bld) 2.8 % Normal . [facility] Comment on above: Performed By: #### T 4F, RETIC, FE and TIBC, CMP, LDH, [id number], JER, CBC, TSH3, KRISTI ####[place] [address] [place]#### EPO, ACTH ####[facility] , Automated basophil countOrde red By: Aries Chavez on 12-28-2023 Basophils (Bld) [#/Vol] 0.2 10*3/uL Normal 0.0-0.2 [facility] Comment on above: Performed By: #### T 4F, RETIC, FE and TIBC, CMP, LDH, [id number], JER, CBC, TSH3, KRISTI ####[place] [address] [place]#### EPO, ACTH ####[facility] , Automated blood monocyte cou ntOrdered By: Aries Chavez on 12-28-2023 Monocytes (Bld) [#/Vol] 0.6 10*3/uL Normal 0.0-0.8 [facility] Comment on above: Performed By: #### T 4F, RETIC, FE and TIBC, CMP, LDH, [id number], JER, CBC, TSH3, KRISTI ####[place] [address] [place]#### EPO, ACTH ####[facility] , Automated eosinophil %Ordere d By: Aries Chavez on 12-28-2023 Eosinophils/100 WBC (Bld) 6.4 % Normal . [facility] Comment on above: Performed By: #### T 4F, RETIC, FE and TIBC, CMP, LDH, [id number], JER, CBC, TSH3, KRISTI ####[address] [place] [place] [address] [place]#### EPO, ACTH ####[facility] , Automated eosinophil countOr dered By: Aries Chavez on 12-28-2023 Eosinophils (Bld) [#/Vol] 0.5 10*3/uL High 0.0-0.45 [facility] Comment on above: Performed By: #### T 4F, RETIC, FE and TIBC, CMP, LDH, [id number], JER, CBC, TSH3, KRISTI ####[place] [address] [place]#### EPO, ACTH ####[facility] , Automated monocyte %Ordered By: Aries Chavez on 12-28-2023 Monocytes/100 WBC (Bld) 8.1 % Normal . [facility] Comment on above: Performed By: #### T 4F, RETIC, FE and TIBC, CMP, LDH, [id number], JER, CBC, TSH3, KRISTI ####[place] [address] [place]#### EPO, ACTH ####[facility] , Automated neutrophil %Ordere d By: Aries Chavez on 12-28-2023 Neutrophils/100 WBC (Bld) 65.6 % Normal . [facility] Comment on above: Performed By: #### T 4F, RETIC, FE and TIBC, CMP, LDH, [id number], JER, CBC, TSH3, KRISTI ####[place] [address] [place]#### EPO, ACTH ####[facility] , Bilirubin.total [Mass/volume ] in Serum or PlasmaOrdered By: Aries Chavez on 12-28-2023 Bilirubin [Mass/Vol] 0.4 mg/dL Normal 0.3-1.0 [facility] Comment on above: Performed By: #### T 4F, RETIC, FE and TIBC, CMP, LDH, [id number], JER, CBC, TSH3, KRISTI ####[address]#### EPO, ACTH ####[facility] , Calcium [Mass/volume] in Ser um or PlasmaOrdered By: Aries Chavez on 12-28-2023 Calcium [Mass/Vol] 9.5 mg/dL Normal 8.6-10.3 [facility] Comment on above: Performed By: #### T 4F, RETIC, FE and TIBC, CMP, LDH, [id number], JER, CBC, TSH3, KRISTI ####[address]#### EPO, ACTH ####[facility] , Carbon dioxide, total [Moles /volume] in Serum or PlasmaOrdered By: Aries Chavez on 12-28-2023 CO2 [Moles/Vol] 29.5 mmol/L Normal 21.0-31.0 [facility] Comment on above: Performed By: #### T 4F, RETIC, FE and TIBC, CMP, LDH, [id number], JER, CBC, TSH3, KRISTI ####[address]#### EPO, ACTH ####[facility] , Chloride [Moles/volume] in S leena or PlasmaOrdered By: Aries Chavez on 12-28-2023 Chloride [Moles/Vol] 94 mmol/L Low 98-107 [facility] Comment on above: Performed By: #### T 4F, RETIC, FE and TIBC, CMP, LDH, [id number], JER, CBC, TSH3, KRISTI ####[address]#### EPO, ACTH ####[facility] , Complete Blood Count Auto Di ffon 12-28-2023 Mean Corpuscular HGB Conc 32.6 g/dL Normal 32.0-35.0 [facility] Comment on above: Performed By: #### T 4F, RETIC, FE and TIBC, CMP, LDH, [id number], JER, CBC, TSH3, KRISTI ####[address]#### EPO, ACTH ####[facility] , NRBC% 0.1 /100{WBC} Normal 0-0.5 [facility] Comment on above: Performed By: #### T 4F, RETIC, FE and TIBC, CMP, LDH, [id number], JER, CBC, TSH3, KRISTI ####[address]#### EPO, ACTH ####[facility] , Comprehensive Metabolic Pane onesimo 12-28-2023 Albumin [Mass/Vol] 3.8 g/dL Normal 3.5-5.7 [facility] Comment on above: Performed By: #### T 4F, RETIC, FE and TIBC, CMP, LDH, [id number], JER, CBC, TSH3, KRISTI ####[address]#### EPO, ACTH ####[facility] , Creatinine Clr Calc Pharmacy 59.72 Normal [facility] Comment on above: Performed By: #### T 4F, RETIC, FE and TIBC, CMP, LDH, [id number], JER, CBC, TSH3, KRISTI ####[place] [address] [place]#### EPO, ACTH ####[facility] , GFR/1.73 sq M.predicted MDRD (S/P/Bld) [Vol rate/Area] mL/min/{1.73_m2} Normal [facility] Comment on above: Performed By: #### T 4F, RETIC, FE and TIBC, CMP, LDH, [id number], JER, CBC, TSH3, KRISTI ####[place] [id number] [facility]#### EPO, ACTH ####[facility] , Cortisolon 12-28-2023 Cortisol 13.7 ug/dL Normal [facility] Comment on above: Result Comment: Refe rence range: AM 6 - 24 ug/dl PM <10 ug/dl [facility] sign hanger supervisor and method: AMRITA UNICEL DXI, POLYCLONAL ANTIBODY CORTISOL ASSAY.PERFORMED BY:[address]MalouEUL[address], [place] [phone] MEDICAL DIRECTORSTEFANO HOLT M.D. Performed By: #### T 4F, RETIC, FE and TIBC, CMP, LDH, [id number], JER, CBC, TSH3, KRISTI ####[address]#### EPO, ACTH ####[facility] , Creatinine [Mass/volume] in Serum or PlasmaOrdered By: Aries Chavez on 12-28-2023 Creatinine [Mass/Vol] 0.77 mg/dL Normal 0.60-1.20 [facility] Comment on above: Performed By: #### T 4F, RETIC, FE and TIBC, CMP, LDH, [id number], JER, CBC, TSH3, KRISTI ####[place] [id number] [facility]#### EPO, ACTH ####[facility] , Erythrocyte distribution wid th [Ratio] by Automated countOrdered By: Aries Chavez on 12-28-2023 Erythrocyte distribution width (RBC) [Ratio] 18.2 % High 11.9-15.3 [facility] Comment on above: Performed By: #### T 4F, RETIC, FE and TIBC, CMP, LDH, [id number], JER, CBC, TSH3, KRISTI ####[address]#### EPO, ACTH ####[facility] , Erythrocytes [#/volume] in B lood by Automated countOrdered By: Aries Woodrufftheresafernando on 12-28-2023 RBC (Bld) [#/Vol] 4.15 10*6/uL Normal 3.60-5.00 [facility] Comment on above: Performed By: #### T 4F, RETIC, FE and TIBC, CMP, LDH, [id number], JER, CBC, TSH3, KRISTI ####[place] [id number] [address]#### EPO, ACTH ####[facility] , Erythropoetin (EPO), Serumon 12-28-2023 Erythropoetin (EPO), Serum 3.5 m[iU]/mL Normal 2.6-18.5 [facility] Comment on above: Result Comment: [employer] DxI 800 Immunoassay System Values obtained with different assay methods or kits cannot be used interchangeably. Results cannot be interpreted as absolute evidence of the presence or absence of malignant disease. Performed at: [facility] [address] [id number] Field Service Specialist: Juan Hendricks PhD, Phone: [phone] BY:[address] [place], [place] [phone] MEDICAL DIRECTORSTEFANO HOLT M.D. Performed By: #### T 4F, RETIC, FE and TIBC, CMP, LDH, [id number], JER, CBC, TSH3, KRISTI ####[place] [address] [address]#### EPO, ACTH ####[facility] , Ferritin [Mass/volume] in Se rum or PlasmaOrdered By: Nedra Moon on 12-28-2023 Ferritin [Mass/Vol] 397.8 ng/mL High 11.0-306.8 [facility] Comment on above: Performed By: #### T 4F, RETIC, FE and TIBC, CMP, LDH, [id number], JER, CBC, TSH3, KRISTI ####[address] [place] [address] [place]#### EPO, ACTH ####[facility] , Folate [Mass/volume] in Seru m or PlasmaOrdered By: Aries Chavez on 12-28-2023 Folate [Mass/Vol] 13.7 ng/mL >5.9 [facility] Comment on above: Folate reference ran ge: >5.9 ng/mlThe WHO technical consultation on folate and vitamin [id number] has determined that folate concentrations lessthan 4 ng/ml are considered deficient. Glucose [Mass/volume] in Ser um or PlasmaOrdered By: Aries Chavez on 12-28-2023 Glucose [Mass/Vol] 95 mg/dL Normal 70-100 [facility] Comment on above: ADA recommended refe rence rangeRandom Glucose Reference Range is dependent on time and content of last meal. Glucose of more than 200 mg/dL in a nonstressed, ambulatory subject supports the diagnosis of Diabetes Mellitus. Result Comment: [place] om Glucose Reference Range is dependent on time and content of last meal. Glucose of more than 200 mg/dL in a nonstressed, ambulatory subject supports the diagnosis of Diabetes Mellitus. ADA recommended reference range Performed By: #### T 4F, RETIC, FE and TIBC, CMP, LDH, [id number], JER, CBC, TSH3, KRISTI ####[place] [address] [address]#### EPO, ACTH ####[facility] , Hematocrit [Volume Fraction] of Blood by Automated countOrdered By: Aries Chavez on 12-28-2023 Hematocrit (Bld) [Volume fraction] 34.9 % Normal 34.0-46.4 [facility] Comment on above: Performed By: #### T 4F, RETIC, FE and TIBC, CMP, LDH, [id number], JER, CBC, TSH3, KRISTI ####[address]#### EPO, ACTH ####[facility] , Hemoglobin [Mass/volume] in BloodOrdered By: Aries Chavez on 12-28-2023 Hemoglobin (Bld) [Mass/Vol] 11.4 g/dL Low 11.8-15.4 [facility] Comment on above: Performed By: #### T 4F, RETIC, FE and TIBC, CMP, LDH, [id number], JER, CBC, TSH3, KRISTI ####[address]#### EPO, ACTH ####[facility] , Iron [Mass/volume] in Serum or PlasmaOrdered By: Aries Chavez on 12-28-2023 Iron [Mass/Vol] 144 ug/dL Normal 50-212 [facility] Comment on above: Performed By: #### T 4F, RETIC, FE and TIBC, CMP, LDH, [id number], JER, CBC, TSH3, KRISTI ####[place] [address] [place]#### EPO, ACTH ####[facility] , Iron and TIBC Profileon 12-01 % Iron Saturation 46.3 % Normal 20-50 [facility] Comment on above: Performed By: #### T 4F, RETIC, FE and TIBC, CMP, LDH, [id number], JER, CBC, TSH3, KRISTI ####[address]#### EPO, ACTH ####[facility] , Total Iron Binding Capacity 311 ug/dL Normal 255-450 [facility] Comment on above: Performed By: #### T 4F, RETIC, FE and TIBC, CMP, LDH, [id number], JER, CBC, TSH3, KRISTI ####[place] [address] [place]#### EPO, ACTH ####[facility] , Iron binding capacity [Mass/ volume] in Serum or PlasmaOrdered By: Aries Chavez on 12-28-2023 Iron binding capacity [Mass/Vol] 311 ug/dL 255-450 [facility] Iron saturation [Mass Fracti on] in Serum or PlasmaOrdered By: Aries Chavez on 12-28-2023 Iron saturation [Mass fraction] 46.3 % 20-50 [facility] LDH Lactate Dehydrogenaseon 12-28-2023 LDH Lactate Dehydrogenase 135 U/L Low 140-271 [facility] Comment on above: Performed By: #### T 4F, RETIC, FE and TIBC, CMP, LDH, [id number], JER, CBC, TSH3, KRISTI ####[facility] [id number] [place] [id number] [facility]#### EPO, ACTH ####[facility] , Lactate dehydrogenase [Enzym atic activity/volume] in Serum or Plasma by Lactate to pyOrdered By: Aries Chavez on 12-28-2023 LDH Lactate to pyruvate reaction [Catalytic activity/Vol] 135 U/L Low 140-271 [facility] Leukocytes [#/volume] correc gabriel for nucleated erythrocytes in Blood by Automated counOrdered By: Aries Chavez on 12-28-2023 WBC corrected for nucl RBC Auto (Bld) [#/Vol] 7.6 10*3/uL 3.8-11.6 [facility] Leukocytes [#/volume] in Blo od by Automated countOrdered By: Aries Chavez on 12-28-2023 WBC (Bld) [#/Vol] 7.6 10*3/uL Normal 3.8-11.6 [facility] Comment on above: Performed By: #### T 4F, RETIC, FE and TIBC, CMP, LDH, [id number], JER, CBC, TSH3, KRISTI ####[facility] [place] [id number] [place]#### EPO, ACTH ####[facility] , Lymphocytes [#/volume] in Bl ood by Automated countOrdered By: Aries Chavez on 12-28-2023 Lymphocytes (Bld) [#/Vol] 1.3 10*3/uL Normal 1.00-4.8 [facility] Comment on above: Performed By: #### T 4F, RETIC, FE and TIBC, CMP, LDH, [id number], JER, CBC, TSH3, KRISTI ####[place] [address] [place]#### EPO, ACTH ####[facility] , Lymphocytes/100 leukocytes i n Blood by Automated countOrdered By: Aries Chavez on 12-28-2023 Lymphocytes/100 WBC (Bld) 17.1 % Normal . [facility] Comment on above: Performed By: #### T 4F, RETIC, FE and TIBC, CMP, LDH, [id number], JER, CBC, TSH3, KRISTI ####[address]#### EPO, ACTH ####[facility] , MCH [Entitic mass] by Automa gabriel countOrdered By: Aries Chavez on 12-28-2023 MCH (RBC) [Entitic mass] 27.4 pg Normal 24.7-34.3 [facility] Comment on above: Performed By: #### T 4F, RETIC, FE and TIBC, CMP, LDH, [id number], JER, CBC, TSH3, KRISTI ####[place] [address] [place]#### EPO, ACTH ####[facility] , MCHC Auto (RBC) [Mass/Vol]Or dered By: Aries Chavez on 12-28-2023 MCHC (RBC) [Mass/Vol] 32.6 g/dL 32.0-35.0 [facility] MCV [Entitic volume] by Auto mated countOrdered By: Aries Chavez on 12-28-2023 MCV (RBC) [Entitic vol] 84.1 fL Normal 80-100 [facility] Comment on above: Performed By: #### T 4F, RETIC, FE and TIBC, CMP, LDH, [id number], JER, CBC, TSH3, KRISTI ####[place] [address] [place]#### EPO, ACTH ####[facility] , Neutrophils [#/volume] in Bl ood by Automated countOrdered By: Aries Chavez on 12-28-2023 Neutrophils (Bld) [#/Vol] 5.0 10*3/uL Normal 1.8-7.7 [facility] Comment on above: Performed By: #### T 4F, RETIC, FE and TIBC, CMP, LDH, [id number], JER, CBC, TSH3, KRISTI ####[facility]#### EPO, ACTH ####[facility] , No Panel InformationOrdered By: Aries Chavez on 12-28-2023 Adrenocorticotropic Hormone 11.2 pg/mL 7.2-63.3 [facility] Comment on above: ACTH reference inter wendy for samples collected between 7 and10 AM.Performed at: [facility] Director: Juan Hendricks PhD, Phone: [phone] Estimated GFR (CKD-EPI) > 60.0 mL/Min [facility] Creatinine Clearance (Chem 59.72 [facility] Nucleated erythrocytes [Pres ence] in Blood by Automated countOrdered By: Aries Chavez on 12-28-2023 Nucleated RBC Auto Ql (Bld) 0.1 /100{WBC} 0-0.5 [facility] Platelet mean volume [Entiti c volume] in Blood by Automated countOrdered By: Aries Chavez on 12-28-2023 Platelet mean volume (Bld) [Entitic vol] 8.1 fL Normal 6.3-10.7 [facility] Comment on above: Performed By: #### T 4F, RETIC, FE and TIBC, CMP, LDH, [id number], JER, CBC, TSH3, KRISTI ####[facility]#### EPO, ACTH ####[facility] , Platelets [#/volume] in Bloo d by Automated countOrdered By: Aries Chavez on 12-28-2023 Platelets (Bld) [#/Vol] 344 10*3/uL Normal 150-450 [facility] Comment on above: Performed By: #### T 4F, RETIC, FE and TIBC, CMP, LDH, [id number], JER, CBC, TSH3, KRISTI ####[place] [address] [address]#### EPO, ACTH ####[facility] , Potassium [Moles/volume] in Serum or PlasmaOrdered By: Aries Chavez on 12-28-2023 Potassium [Moles/Vol] 4.8 mmol/L Normal 3.5-5.1 [facility] Comment on above: Performed By: #### T 4F, RETIC, FE and TIBC, CMP, LDH, [id number], JER, CBC, TSH3, KRISTI ####[address]#### EPO, ACTH ####[facility] , Protein [Mass/volume] in Ser um or PlasmaOrdered By: Aries Chavez on 12-28-2023 Protein [Mass/Vol] 7.8 g/dL Normal 6.4-8.9 [facility] Comment on above: Performed By: #### T 4F, RETIC, FE and TIBC, CMP, LDH, [id number], JER, CBC, TSH3, KRISTI ####[place] [address] [place]#### EPO, ACTH ####[facility] , Random cortisol measurementO rdered By: Aries Chavez on 12-28-2023 Cortisol [Mass/Vol] 13.7 ug/dL [facility] Comment on above: [facility] sign hanger supervisor and method:Beanstalk TaxEL DXI, POLYCLONAL ANTIBODY CORTISOL ASSAY.Reference range: AM 6 - 24 ug/dl PM <10 ug/dl Reticulocyte Counton 024 Reticulocyte Number 0.068 10*6/uL Normal 0.024-0 .08 4 [facility] Comment on above: Result Comment: PERF ORMED BY:[address] [place], [place] [id number] MEDICAL DIRECTORSTEFANO HOLT M.D. Performed By: #### T 4F, RETIC, FE and TIBC, CMP, LDH, [id number], JER, CBC, TSH3, KRISTI ####[address]#### EPO, ACTH ####[facility] , Reticulocyte Percent 1.6 % High 0.5-1.5 [facility] Comment on above: Performed By: #### T 4F, RETIC, FE and TIBC, CMP, LDH, [id number], JER, CBC, TSH3, KRISTI ####[address]#### EPO, ACTH ####[facility] , Reticulocytes/100 RBC Auto ( Bld)Ordered By: Aries Chavez on 12-28-2023 Reticulocytes/100 RBC (Bld) 1.6 % High 0.5-1.5 [facility] Serum globulin measurement b y calculation (mass/volume)Ordered By: Aries Chavez on 12-28-2023 Globulin (S) [Mass/Vol] 4.0 g/dL [facility] Comment on above: Performed By: #### T 4F, RETIC, FE and TIBC, CMP, LDH, [id number], JER, CBC, TSH3, KRISTI ####[address]#### EPO, ACTH ####[facility] , Serum or plasma albumin/glob ulin mass ratioOrdered By: Aries Chavez on 12-28-2023 Albumin/Globulin [Mass ratio] 1.0 {ratio} [facility] Comment on above: Performed By: #### T 4F, RETIC, FE and TIBC, CMP, LDH, [id number], JER, CBC, TSH3, KRISTI ####[facility] [address] [place] [address] [place]#### EPO, ACTH ####[facility] , Serum or plasma anion gap de terminationOrdered By: Aries Chavez on 12-28-2023 Anion gap [Moles/Vol] 9.3 mmol/L Normal 6.0-15.0 [facility] Comment on above: Performed By: #### T 4F, RETIC, FE and TIBC, CMP, LDH, [id number], JER, CBC, TSH3, KRISTI ####[facility]#### EPO, ACTH ####[facility] , Serum or plasma erythropoiet in (EPO) measurement (units/volume)Ordered By: Aries Chavez on 12-28-2023 Erythropoietin (EPO) Qn 3.5 mIU/mL 2.6-18.5 [facility] Comment on above: [employer] DxI 800 Immunoassay SystemValues obtained with different assay methods or kits cannotbe used interchangeably. Results cannot be interpreted asabsolute evidence of the presence or absence of malignantdisease.Performed at: [facility] [employer] [id number] Director: Juan Hendricks PhD, Phone: [phone] Sodium [Moles/volume] in Ser um or PlasmaOrdered By: Aries Chavez on 12-28-2023 Sodium [Moles/Vol] 128 mmol/L Low 136-145 [facility] Comment on above: Performed By: #### T 4F, RETIC, FE and TIBC, CMP, LDH, [id number], JER, CBC, TSH3, KRISTI ####[facility] [place] [address] [place]#### EPO, ACTH ####[facility] , Thyrotropin [Units/volume] i n Serum or PlasmaOrdered By: Aries Chavez on 12-28-2023 TSH Qn 18.92 m[IU]/L High 0.45-5.33 [facility] Comment on above: Performed By: #### T 4F, RETIC, FE and TIBC, CMP, LDH, [id number], JER, CBC, TSH3, KRISTI ####[address]#### EPO, ACTH ####[facility] , Thyroxine (T4) free [Mass/vo lume] in Serum or PlasmaOrdered By: Aries Chavez on 12-28-2023 Free T4 [Mass/Vol] 0.37 ng/dL Low 0.61-1.12 [facility] Comment on above: Performed By: #### T 4F, RETIC, FE and TIBC, CMP, LDH, [id number], JER, CBC, TSH3, KRISTI ####[address]#### EPO, ACTH ####[facility] , Transferrin [Mass/volume] in Serum or PlasmaOrdered By: Aries Chavez on 12-28-2023 Transferrin [Mass/Vol] 222 mg/dL Normal 203-362 [facility] Comment on above: Performed By: #### T 4F, RETIC, FE and TIBC, CMP, LDH, [id number], JER, CBC, TSH3, KRISTI ####[address]#### EPO, ACTH ####[facility] , Urea nitrogen [Mass/volume] in Serum or PlasmaOrdered By: Aries Chavez on 12-28-2023 Urea nitrogen [Mass/Vol] 14 mg/dL Normal 7-25 [facility] Comment on above: Performed By: #### T 4F, RETIC, FE and TIBC, CMP, LDH, [id number], JER, CBC, TSH3, KRISTI ####[address]#### EPO, ACTH ####[facility] , Vit. B12/Folate Profileon Folate 13.7 ng/mL Normal >5.9 [facility] Comment on above: Result Comment: Chelsie te reference range: >5.9 ng/ml The WHO technical consultation on folate and vitamin b12 deficiencies has determined that folate concentrations less than 4 ng/ml are considered deficient. Performed By: #### T 4F, RETIC, FE and TIBC, CMP, LDH, [id number], JER, CBC, TSH3, KRISTI ####[address]#### EPO, ACTH ####[facility] , Vitamin B12 ser/plasOrdered By: Aries Chavez on 12-28-2023 Cobalamin (Vitamin B12) [Mass/Vol] 333 pg/mL Normal 180-914 [facility] Comment on above: Performed By: #### T 4F, RETIC, FE and TIBC, CMP, LDH, [id number], JER, CBC, TSH3, KRISTI ####[address]#### EPO, ACTH ####[facility] , Adrenocorticotropic Hormone PLon 12-05-[address] 31.7 pg/mL Normal 7.2-63.3 [facility] Comment on above: Result Comment: ACTH reference interval for samples collected between 7 and 10 AM. Performed at: [facility] [address] [id number] Field Service Specialist: Juan Hendricks PhD, Phone: [phone] BY:[address] [place], [place] [phone] MEDICAL DIRECTORSTEFANO HOLT M.D. Performed By: #### A CTH ####[facility] ,#### CMP, JER, T4F, TSH3 ####[address] Complete Blood Count Auto Di ffon 12-05-2023 Basophils (Bld) [#/Vol] 0.1 10*3/uL Normal 0.0-0.2 [facility] Comment on above: Result Comment: PERF ORMED BY:[place] [address] [address] [place], [place] [phone] MEDICAL DIRECTORSTEFANO HOLT M.D. Performed By: #### C BC ####[place] [id number] [facility] Basophils/100 WBC (Bld) 1.5 % Normal . [facility] Comment on above: Performed By: #### C BC ####[address] Eosinophils (Bld) [#/Vol] 0.4 10*3/uL Normal 0.0-0.45 [facility] Comment on above: Performed By: #### C BC ####[address] Eosinophils/100 WBC (Bld) 5.6 % Normal . [facility] Comment on above: Performed By: #### C BC ####[address] Erythrocyte distribution width (RBC) [Ratio] 18.1 % High 11.9-15.3 [facility] Comment on above: Performed By: #### C BC ####[address] Hematocrit (Bld) [Volume fraction] 33.2 % Low 34.0-46.4 [facility] Comment on above: Performed By: #### C BC ####[place] [id number] [facility] Hemoglobin (Bld) [Mass/Vol] 10.7 g/dL Low 11.8-15.4 [facility] Comment on above: Performed By: #### C BC ####[place] [id number] [facility] Lymphocytes (Bld) [#/Vol] 1.7 10*3/uL Normal 1.00-4.8 [facility] Comment on above: Performed By: #### C BC ####[address] Lymphocytes/100 WBC (Bld) 22.5 % Normal . [facility] Comment on above: Performed By: #### C BC ####[address] MCH (RBC) [Entitic mass] 26.8 pg Normal 24.7-34.3 [facility] Comment on above: Performed By: #### C BC ####[address] MCV (RBC) [Entitic vol] 83.1 fL Normal 80-100 [facility] Comment on above: Performed By: #### C BC ####[address] Mean Corpuscular HGB Conc 32.2 g/dL Normal 32.0-35.0 [facility] Comment on above: Performed By: #### C BC ####[address] Monocytes (Bld) [#/Vol] 0.8 10*3/uL Normal 0.0-0.8 [facility] Comment on above: Performed By: #### C BC ####[address] Monocytes/100 WBC (Bld) 10.2 % Normal . [facility] Comment on above: Performed By: #### C BC ####[address] Neutrophils (Bld) [#/Vol] 4.5 10*3/uL Normal 1.8-7.7 [facility] Comment on above: Performed By: #### C BC ####[address] Neutrophils/100 WBC (Bld) 60.2 % Normal . [facility] Comment on above: Performed By: #### C BC ####[address] NRBC% 0.1 /100{WBC} Normal 0-0.5 [facility] Comment on above: Performed By: #### C BC ####[address] Platelet mean volume (Bld) [Entitic vol] 8.9 fL Normal 6.3-10.7 [facility] Comment on above: Performed By: #### C BC ####[address] Platelets (Bld) [#/Vol] 270 10*3/uL Normal 150-450 [facility] Comment on above: Performed By: #### C BC ####[address] RBC (Bld) [#/Vol] 4.00 10*6/uL Normal 3.60-5.00 [facility] Comment on above: Performed By: #### C BC ####[address] WBC (Bld) [#/Vol] 7.4 10*3/uL Normal 3.8-11.6 [facility] Comment on above: Performed By: #### C BC ####[address] Comprehensive Metabolic Pane onesimo 12-05-2023 Albumin [Mass/Vol] 3.5 g/dL Normal 3.5-5.7 [facility] Comment on above: Performed By: #### A CT ####[facility] ,#### CMP, JER, T4F, TSH3 ####[address] Albumin/Globulin [Mass ratio] 1.0 {ratio} Normal [facility] Comment on above: Performed By: #### A CT ####[facility] ,#### CMP, JER, T4F, TSH3 ####[address] ALP [Catalytic activity/Vol] 90 U/L Normal 34-104 [facility] Comment on above: Performed By: #### A CT ####[facility] ,#### CMP, JER, T4F, TSH3 ####[address] ALT [Catalytic activity/Vol] 21 U/L Normal 7-52 [facility] Comment on above: Performed By: #### A CTH ####[facility] ,#### CMP, JER, T4F, TSH3 ####[address] Anion gap [Moles/Vol] 10.1 mmol/L Normal 6.0-15.0 [facility] Comment on above: Performed By: #### A CT ####[facility] ,#### CMP, JER, T4F, TSH3 ####[address] AST [Catalytic activity/Vol] 22 U/L Normal 13-39 [facility] Comment on above: Performed By: #### A CT ####[facility] ,#### CMP, JER, T4F, TSH3 ####[address] Bilirubin [Mass/Vol] 0.6 mg/dL Normal 0.3-1.0 [facility] Comment on above: Performed By: #### A CT ####[facility] ,#### CMP, JER, T4F, TSH3 ####[address] Calcium [Mass/Vol] 9.6 mg/dL Normal 8.6-10.3 [facility] Comment on above: Performed By: #### A CT ####[facility] ,#### CMP, JER, T4F, TSH3 ####[address] Chloride [Moles/Vol] 97 mmol/L Low 98-107 [facility] Comment on above: Performed By: #### A CT ####[facility] ,#### CMP, JER, T4F, TSH3 ####[address] CO2 [Moles/Vol] 31.1 mmol/L High 21.0-31.0 [facility] Comment on above: Performed By: #### A CTH ####[facility] ,#### CMP, JER, T4F, TSH3 ####[address] Creatinine [Mass/Vol] 0.75 mg/dL Normal 0.60-1.20 [facility] Comment on above: Performed By: #### A CT ####[facility] ,#### CMP, JER, T4F, TSH3 ####[address] Creatinine Clr Calc Pharmacy 59.72 Normal [facility] Comment on above: Performed By: #### A CTH ####[facility] ,#### CMP, JER, T4F, TSH3 ####[address] GFR/1.73 sq M.predicted MDRD (S/P/Bld) [Vol rate/Area] mL/min/{1.73_m2} Normal [facility] Comment on above: Performed By: #### A CTH ####[facility] ,#### CMP, JER, T4F, TSH3 ####[address] Globulin (S) [Mass/Vol] 3.6 g/dL Normal [facility] Comment on above: Performed By: #### A CTH ####[facility] ,#### CMP, JER, T4F, TSH3 ####[place] [id number] [facility] Glucose [Mass/Vol] 91 mg/dL Normal 70-100 [facility] Comment on above: Result Comment: [place] Glucose Reference Range is dependent on time and content of last meal. Glucose of more than 200 mg/dL in a nonstressed, ambulatory subject supports the diagnosis of Diabetes Mellitus. ADA recommended reference range Performed By: #### A CT ####[facility] ,#### CMP, JER, T4F, TSH3 ####[place] [id number] [facility] Potassium [Moles/Vol] 5.2 mmol/L High 3.5-5.1 [facility] Comment on above: Performed By: #### A CT ####[facility] ,#### CMP, JER, T4F, TSH3 ####[address] Protein [Mass/Vol] 7.1 g/dL Normal 6.4-8.9 [facility] Comment on above: Performed By: #### A [facility] ####[facility] ,#### CMP, JER, T4F, TSH3 ####[place] [id number] [facility] Sodium [Moles/Vol] 133 mmol/L Low 136-145 [facility] Comment on above: Performed By: #### A CT ####[facility] ,#### CMP, JER, T4F, TSH3 ####[place] [id number] [facility] Urea nitrogen [Mass/Vol] 15 mg/dL Normal 7-25 [facility] Comment on above: Performed By: #### A CT ####[facility] ,#### CMP, JER, T4F, TSH3 ####[place] [id number] [facility] Cortisolon 03-05-2024 Cortisol 8.1 ug/dL Normal [facility] Comment on above: Result Comment: Refe rence range: AM 6 - 24 ug/dl PM <10 ug/dl [facility] sign hanger supervisor and method: Offerpop UNICEL DXI, POLYCLONAL ANTIBODY CORTISOL ASSAY.PERFORMED BY:[place] [address] [place], [place] [phone] MEDICAL DIRECTORSTEFANO HOLT M.D. Performed By: #### A CTH ####[facility] ,#### CMP, JER, T4F, TSH3 ####[place] [address] [place] [id number] [facility] Free T4 (Free Thyroxine)on 0 12-05-2023 Free T4 [Mass/Vol] 1.23 ng/dL High 0.61-1.12 [facility] Comment on above: Performed By: #### A CTH ####[facility] ,#### CMP, JER, T4F, TSH3 ####[place] [id number] [facility] Thyroid Stimulating Hormoneo n 12-05-2023 TSH Qn 0.01 m[IU]/L Low 0.45-5.33 [facility] Comment on above: Performed By: #### A CTH ####[facility] ,#### CMP, JER, T4F, TSH3 ####[place] [id number] [facility] Adrenocorticotropic Hormone PLon 11-15-[address] 27.5 pg/mL Normal 7.2-63.3 [facility] Comment on above: Result Comment: ACTH reference interval for samples collected between 7 and 10 AM. Performed at: [address] [id number] Field Service Specialist: Juan Hendricks PhD, Phone: [phone] BY:[place] [address] [place] [place], [place] [phone] MEDICAL DIRECTORSTEFANO HOLT M.D. Performed By: #### C ORT, T4F, TSH3, CMP ####[facility] [place] [address] [place]#### ACTH ####[facility] , Alanine aminotransferase [En zymatic activity/volume] in Serum or PlasmaOrdered By: Aries Chavez on 11-15-2023 ALT [Catalytic activity/Vol] 25 U/L Normal 7-52 [facility] Comment on above: Order Comment: NON F ASTING Performed By: #### C ORT, T4F, TSH3, CMP ####[place] [address] [place] [address] [place]#### ACTH ####[facility] , Albumin [Mass/volume] in Ser um or Plasma by Bromocresol green (BCG) dye binding methoOrdered By: Aries Chavez on 11-15-2023 Albumin BCG dye [Mass/Vol] 3.3 g/dL 3.5-5.7 [facility] Alkaline phosphatase [Enzyma tic activity/volume] in Serum or PlasmaOrdered By: Aries Chavez on 11-15-2023 ALP [Catalytic activity/Vol] 109 U/L High 34-104 [facility] Comment on above: Order Comment: NON F ASTING Performed By: #### C ORT, T4F, TSH3, CMP ####[place] [address] [place]#### ACTH ####[facility] , Aspartate aminotransferase [ Enzymatic activity/volume] in Serum or PlasmaOrdered By: Aries Chavez on 11-15-2023 AST [Catalytic activity/Vol] 24 U/L Normal 13-39 [facility] Comment on above: Order Comment: NON F ASTING Performed By: #### C ORT, T4F, TSH3, CMP ####[place] [address] [place] [address] [place]#### ACTH ####[facility] , Automated basophil %Ordered By: Aries Chavez on 11-15-2023 Basophils/100 WBC (Bld) 2.9 % Normal . [facility] Comment on above: Performed By: #### C BC ####[address] Automated basophil countOrde red By: Aries Chavez on 11-15-2023 Basophils (Bld) [#/Vol] 0.2 10*3/uL Normal 0.0-0.2 [facility] Comment on above: Result Comment: PERF ORMED BY:[address] [place]abe[place], [place] [phone] MEDICAL DIRECTORSTEFANO HOLT M.D. Performed By: #### C BC ####[address] Automated blood monocyte cou ntOrdered By: Aries Chavez on 11-15-2023 Monocytes (Bld) [#/Vol] 0.8 10*3/uL Normal 0.0-0.8 [facility] Comment on above: Performed By: #### C BC ####[address] Automated eosinophil %Ordere d By: Aries Chavez on 11-15-2023 Eosinophils/100 WBC (Bld) 5.2 % Normal . [facility] Comment on above: Performed By: #### C BC ####[address] Automated eosinophil countOr dered By: Aries Chavez on 11-15-2023 Eosinophils (Bld) [#/Vol] 0.4 10*3/uL Normal 0.0-0.45 [facility] Comment on above: Performed By: #### C BC ####[address] Automated monocyte %Ordered By: Aries Chavez on 11-15-2023 Monocytes/100 WBC (Bld) 11.6 % Normal . [facility] Comment on above: Performed By: #### C BC ####[address] [place] [address] [place] Automated neutrophil %Ordere d By: Aries Chavez on 11-15-2023 Neutrophils/100 WBC (Bld) 54.9 % Normal . [facility] Comment on above: Performed By: #### C BC ####[facility] Bilirubin.total [Mass/volume ] in Serum or PlasmaOrdered By: Aries Chavez on 11-15-2023 Bilirubin [Mass/Vol] 0.4 mg/dL Normal 0.3-1.0 [facility] Comment on above: Order Comment: NON F ASTING Performed By: #### C ORT, T4F, TSH3, CMP ####[place] [address]#### ACTH ####[facility] , CBC W Auto Differential pane l (Bld)on 11-15-2023 Basophils (Bld) [#/Vol] 0.2 10*3/uL 0.0 - 0.2 10*3/uL [facility] Basophils/100 WBC Manual cnt (Syn fld) 2.9 % . [facility] Eosinophils (Bld) [#/Vol] 0.4 10*3/uL 0.0 - 0.45 10*3/uL [facility] Eosinophils/100 WBC Manual cnt (Syn fld) 5.2 % . [facility] Erythrocyte distribution width (RBC) [Ratio] 16.8 % High 11.9 - 15.3 % [facility] Hematocrit (Bld) [Volume fraction] 30.3 % Low 34.0 - 46.4 % [facility] Hemoglobin (Bld) [Mass/Vol] 9.7 g/dL Low 11.8 - 15.4 g/dL [facility] Interpretation and review of laboratory results Abnormal [facility] Lymphocytes (Bld) [#/Vol] 1.7 10*3/uL 1.00 - 4.8 10*3/uL [facility] Lymphocytes/100 WBC Manual cnt (Syn fld) 25.4 % . [facility] MCH (RBC) [Entitic mass] 26.4 pg 24.7 - 34.3 pg [facility] MCHC (RBC) [Mass/Vol] 32.0 g/dL 32.0 - 35.0 g/dL [facility] MCV (RBC) [Entitic vol] 82.7 fL 80 - 100 fL [facility] Monocytes (Bld) [#/Vol] 0.8 10*3/uL 0.0 - 0.8 10*3/uL [facility] Monocytes+Macrophages/ 100 WBC Manual cnt (Syn fld) 11.6 % . [facility] Neutrophils (Bld) [#/Vol] 3.8 10*3/uL 1.8 - 7.7 10*3/uL [facility] Neutrophils/100 WBC Manual cnt (Syn fld) 54.9 % . [facility] NRBC 0.0 /100{WBC} 0 - 0.5 /100{WBC} [facility] Platelet mean volume (Bld) [Entitic vol] 7.5 fL 6.3 - 10.7 fL [facility] Platelets (Bld) [#/Vol] 509 10*3/uL High 150 - 450 10*3/uL [facility] RBC LM.HPF (Urine sed) [#/Area] 3.67 /[HPF] 3.60 - 5.00 [facility] WBC (Bld) [#/Vol] 6.9 10*3/uL 3.8 - 11.6 10*3/uL [facility] WBC LM.HPF (Urine sed) [#/Area] 6.9 10*3/uL 3.8 - 11.6 10*3/uL [facility] Calcium [Mass/volume] in Ser um or PlasmaOrdered By: Aries Chavez on 11-15-2023 Calcium [Mass/Vol] 9.8 mg/dL Normal 8.6-10.3 [facility] Comment on above: Order Comment: NON F ASTING Performed By: #### C ORT, T4F, TSH3, CMP ####[facility] [id number] [place] [address] [facility]#### ACTH ####[facility] , Carbon dioxide, total [Moles /volume] in Serum or PlasmaOrdered By: Aries Chavez on 11-15-2023 CO2 [Moles/Vol] 28.7 mmol/L Normal 21.0-31.0 [facility] Comment on above: Order Comment: NON F ASTING Performed By: #### C ORT, T4F, TSH3, CMP ####[address]#### ACTH ####[facility] , Chloride [Moles/volume] in S leena or PlasmaOrdered By: Aries Chavez on 11-15-2023 Chloride [Moles/Vol] 101 mmol/L Normal 98-107 [facility] Comment on above: Order Comment: NON F ASTING Performed By: #### C ORT, T4F, TSH3, CMP ####[address]#### ACTH ####[facility] , Complete Blood Count Auto Di ffon 11-15-2023 Mean Corpuscular HGB Conc 32.0 g/dL Normal 32.0-35.0 [facility] Comment on above: Performed By: #### C BC ####[address] NRBC% 0.0 /100{WBC} Normal 0-0.5 [facility] Comment on above: Performed By: #### C BC ####[address] Comprehensive Metabolic Pane onesimo 11-15-2023 Albumin [Mass/Vol] 3.3 g/dL Low 3.5-5.7 [facility] Comment on above: Order Comment: NON F ASTING Performed By: #### C ORT, T4F, TSH3, CMP ####[address]#### ACTH ####[facility] , Creatinine Clr Calc Pharmacy 65.11 Normal [facility] Comment on above: Order Comment: NON F ASTING Performed By: #### C ORT, T4F, TSH3, CMP ####[place] [id number] [place]#### ACTH ####[facility] , GFR/1.73 sq M.predicted MDRD (S/P/Bld) [Vol rate/Area] mL/min/{1.73_m2} Normal [facility] Comment on above: Order Comment: NON F ASTING Performed By: #### C ORT, T4F, TSH3, CMP ####[address]#### ACTH ####[facility] , Cortisolon 11-15-2023 Cortisol 14.2 ug/dL Normal [facility] Comment on above: Order Comment: NON F ASTING Result Comment: Refe rence range: AM 6 - 24 ug/dl PM <10 ug/dl [facility] sign hanger supervisor and method: Beanstalk TaxEL DXI, POLYCLONAL ANTIBODY CORTISOL ASSAY.PERFORMED BY:[address] [place], [place] [phone] MEDICAL NAHID HOLT M.D. Performed By: #### C ORT, T4F, TSH3, CMP ####[address]#### ACTH ####[facility] , Creatinine [Mass/volume] in Serum or PlasmaOrdered By: Aries Chavez on 11-15-2023 Creatinine [Mass/Vol] 0.71 mg/dL Normal 0.60-1.20 [facility] Comment on above: Order Comment: NON F ASTING Performed By: #### C ORT, T4F, TSH3, CMP ####[address]#### ACTH ####[facility] , Erythrocyte distribution wid th [Ratio] by Automated countOrdered By: Aries Chavez on 11-15-2023 Erythrocyte distribution width (RBC) [Ratio] 16.8 % High 11.9-15.3 [facility] Comment on above: Performed By: #### C BC ####[address] Erythrocytes [#/volume] in B lood by Automated countOrdered By: Aries Chavez on 11-15-2023 RBC (Bld) [#/Vol] 3.67 10*6/uL Normal 3.60-5.00 [facility] Comment on above: Performed By: #### C BC ####[address] Glucose [Mass/volume] in Ser um or PlasmaOrdered By: Aries Chavez on 11-15-2023 Glucose [Mass/Vol] 100 mg/dL Normal 70-100 [facility] Comment on above: ADA recommended refe rence rangeRandom Glucose Reference Range is dependent on time and content of last meal. Glucose of more than 200 mg/dL in a nonstressed, ambulatory subject supports the diagnosis of Diabetes Mellitus. Order Comment: NON F ASTING Result Comment: [place] om Glucose Reference Range is dependent on time and content of last meal. Glucose of more than 200 mg/dL in a nonstressed, ambulatory subject supports the diagnosis of Diabetes Mellitus. ADA recommended reference range Performed By: #### C ORT, T4F, TSH3, CMP ####[address]#### ACTH ####[facility] , Hematocrit [Volume Fraction] of Blood by Automated countOrdered By: Aries Chavez on 11-15-2023 Hematocrit (Bld) [Volume fraction] 30.3 % Low 34.0-46.4 [facility] Comment on above: Performed By: #### C BC ####[place] [id number] [facility] Hemoglobin [Mass/volume] in BloodOrdered By: Aries Chavez on 11-15-2023 Hemoglobin (Bld) [Mass/Vol] 9.7 g/dL Low 11.8-15.4 [facility] Comment on above: Performed By: #### C BC ####[address] Leukocytes [#/volume] correc gabriel for nucleated erythrocytes in Blood by Automated counOrdered By: Aries Chavez on 11-15-2023 WBC corrected for nucl RBC Auto (Bld) [#/Vol] 6.9 10*3/uL 3.8-11.6 [facility] Leukocytes [#/volume] in Blo od by Automated countOrdered By: Aries Chavez on 11-15-2023 WBC (Bld) [#/Vol] 6.9 10*3/uL Normal 3.8-11.6 [facility] Comment on above: Performed By: #### C BC ####[address] Lymphocytes [#/volume] in Bl ood by Automated countOrdered By: Aries Chavez on 11-15-2023 Lymphocytes (Bld) [#/Vol] 1.7 10*3/uL Normal 1.00-4.8 [facility] Comment on above: Performed By: #### C BC ####[address] Lymphocytes/100 leukocytes i n Blood by Automated countOrdered By: Aries Chavez on 11-15-2023 Lymphocytes/100 WBC (Bld) 25.4 % Normal . [facility] Comment on above: Performed By: #### C BC ####[address] MCH [Entitic mass] by Automa gabriel countOrdered By: Aries Chavez on 11-15-2023 MCH (RBC) [Entitic mass] 26.4 pg Normal 24.7-34.3 [facility] Comment on above: Performed By: #### C BC ####[address] MCHC Auto (RBC) [Mass/Vol]Or dered By: Aries Chavez on 11-15-2023 MCHC (RBC) [Mass/Vol] 32.0 g/dL 32.0-35.0 [facility] MCV [Entitic volume] by Auto mated countOrdered By: Aries Chavez on 11-15-2023 MCV (RBC) [Entitic vol] 82.7 fL Normal 80-100 [facility] Comment on above: Performed By: #### C BC ####[facility] [id number] Neutrophils [#/volume] in Bl ood by Automated countOrdered By: Aries Chavez on 11-15-2023 Neutrophils (Bld) [#/Vol] 3.8 10*3/uL Normal 1.8-7.7 [facility] Comment on above: Performed By: #### C BC ####[place] [address] No Panel InformationOrdered By: Aries Chavez on 11-15-2023 Adrenocorticotropic Hormone 27.5 pg/mL 7.2-63.3 [facility] Comment on above: ACTH reference inter wendy for samples collected between 7 and10 AM.Performed at: [facility] [address] Director: Juan Hendricks PhD, Phone: [phone] Estimated GFR (CKD-EPI) > 60.0 mL/Min [facility] Creatinine Clearance (Chem 65.11 [facility] Nucleated erythrocytes [Pres ence] in Blood by Automated countOrdered By: Aries Chavez on 11-15-2023 Nucleated RBC Auto Ql (Bld) 0.0 /100{WBC} 0-0.5 [facility] Platelet mean volume [Entiti c volume] in Blood by Automated countOrdered By: Aries Chavez on 11-15-2023 Platelet mean volume (Bld) [Entitic vol] 7.5 fL Normal 6.3-10.7 [facility] Comment on above: Performed By: #### C BC ####[facility] [id number] Platelets [#/volume] in Bloo d by Automated countOrdered By: Aries Chavez on 11-15-2023 Platelets (Bld) [#/Vol] 509 10*3/uL High 150-450 [facility] Comment on above: Performed By: #### C BC ####[place] [address] Potassium [Moles/volume] in Serum or PlasmaOrdered By: Aries Chavez on 11-15-2023 Potassium [Moles/Vol] 4.8 mmol/L Normal 3.5-5.1 [facility] Comment on above: Order Comment: NON F ASTING Performed By: #### C ORT, T4F, TSH3, CMP ####[place] [address]#### ACTH ####[facility] , Protein [Mass/volume] in Ser um or PlasmaOrdered By: Aries Chavez on 11-15-2023 Protein [Mass/Vol] 7.9 g/dL Normal 6.4-8.9 [facility] Comment on above: Order Comment: NON F ASTING Performed By: #### C ORT, T4F, TSH3, CMP ####[place] [address]#### ACTH ####[facility] , Random cortisol measurementO rdered By: Aries Chavez on 11-15-2023 Cortisol [Mass/Vol] 14.2 ug/dL [facility] Comment on above: [facility] sign hanger supervisor and method:AMRITA UNICEL DXI, POLYCLONAL ANTIBODY CORTISOL ASSAY.Reference range: AM 6 - 24 ug/dl PM <10 ug/dl Serum globulin measurement b y calculation (mass/volume)Ordered By: Aries Chavez on 11-15-2023 Globulin (S) [Mass/Vol] 4.6 g/dL Normal [facility] Comment on above: Order Comment: NON F ASTING Performed By: #### C ORT, T4F, TSH3, CMP ####[facility] [place] [id number] [place]#### ACTH ####[facility] , Serum or plasma albumin/glob ulin mass ratioOrdered By: Aries Chavez on 11-15-2023 Albumin/Globulin [Mass ratio] 0.7 {ratio} Normal [facility] Comment on above: Order Comment: NON F ASTING Performed By: #### C ORT, T4F, TSH3, CMP ####[place] [address]#### ACTH ####[facility] , Serum or plasma anion gap de terminationOrdered By: Aries Chavez on 11-15-2023 Anion gap [Moles/Vol] 10.1 mmol/L Normal 6.0-15.0 [facility] Comment on above: Order Comment: NON F ASTING Performed By: #### C ORT, T4F, TSH3, CMP ####[address]#### ACTH ####[facility] , Sodium [Moles/volume] in Ser um or PlasmaOrdered By: Aries Chavez on 11-15-2023 Sodium [Moles/Vol] 135 mmol/L Low 136-145 [facility] Comment on above: Order Comment: NON F ASTING Performed By: #### C ORT, T4F, TSH3, CMP ####[address]#### ACTH ####[facility] , Thyrotropin [Units/volume] i n Serum or PlasmaOrdered By: Aries Chavez on 11-15-2023 TSH Qn 0.01 m[IU]/L Low 0.45-5.33 [facility] Comment on above: Order Comment: NON F ASTING Performed By: #### C ORT, T4F, TSH3, CMP ####[place] [address] [place]#### ACTH ####[facility] , Thyroxine (T4) free [Mass/vo lume] in Serum or PlasmaOrdered By: Aries Chavez on 11-15-2023 Free T4 [Mass/Vol] 2.10 ng/dL High 0.61-1.12 [facility] Comment on above: Order Comment: NON F ASTING Performed By: #### C ORT, T4F, TSH3, CMP ####[place] [address]#### ACTH ####[facility] , Urea nitrogen [Mass/volume] in Serum or PlasmaOrdered By: Aries Chavez on 11-15-2023 Urea nitrogen [Mass/Vol] 16 mg/dL Normal 04-25 [facility] Comment on above: Order Comment: NON F ASTING Performed By: #### C ORT, T4F, TSH3, CMP ####[place] [address]#### ACTH ####[facility] , US venous duplex LE BIon US venous duplex LE BI Normal [facility] Cortisolon 10-26-2023 Cortisol 15.2 ug/dL Normal [facility] Comment on above: Result Comment: Refe rence range: AM 6 - 24 ug/dl PM <10 ug/dl [facility] sign 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 Performed By: #### T 4F, TSH3, JER ####[place] [address] [facility] Free T4 (Free Thyroxine)on 0 10-26-2023 Free T4 [Mass/Vol] 2.23 ng/dL High 0.61-1.12 [facility] Comment on above: Performed By: #### T 4F, TSH3, JER ####[address] Thyroid Stimulating Hormoneo n 10-26-2023 TSH Qn 0.20 m[IU]/L Low 0.45-5.33 [facility] Comment on above: Performed By: #### T 4F, TSH3, JER ####[address] [address] [facility] Basic Metabolic Panelon 10-03 Anion gap [Moles/Vol] 9.5 mmol/L Normal 6.0-15.0 [facility] Comment on above: Performed By: #### B MP, HEPATIC, CBC ####[place] [id number] [facility] Calcium [Mass/Vol] 8.7 mg/dL Normal 8.6-10.3 [facility] Comment on above: Performed By: #### B MP, HEPATIC, CBC ####[address] Chloride [Moles/Vol] 103 mmol/L Normal 98-107 [facility] Comment on above: Performed By: #### B MP, HEPATIC, CBC ####[address] CO2 [Moles/Vol] 23.7 mmol/L Normal 21.0-31.0 [facility] Comment on above: Performed By: #### B MP, HEPATIC, CBC ####[place] [id number] [facility] Creatinine [Mass/Vol] 0.78 mg/dL Normal 0.60-1.20 [facility] Comment on above: Performed By: #### B MP, HEPATIC, CBC ####[address] Creatinine Clr Calc Pharmacy 65.55 Normal [facility] Comment on above: Result Comment: PERF ORMED BY:[address] [place], [place] [phone] MEDICAL DIRECTORSTEFANO HOLT M.D. Performed By: #### B MP, HEPATIC, CBC ####[place] [id number] [facility] GFR/1.73 sq M.predicted MDRD (S/P/Bld) [Vol rate/Area] mL/min/{1.73_m2} Normal [facility] Comment on above: Performed By: #### B MP, HEPATIC, CBC ####[address] [address] [facility] Glucose [Mass/Vol] 113 mg/dL High 70-100 [facility] Comment on above: Result Comment: [place] Glucose Reference Range is dependent on time and content of last meal. Glucose of more than 200 mg/dL in a nonstressed, ambulatory subject supports the diagnosis of Diabetes Mellitus. ADA recommended reference range Performed By: #### B MP, HEPATIC, CBC ####[place] [id number] [facility] Potassium [Moles/Vol] 4.2 mmol/L Normal 3.5-5.1 [facility] Comment on above: Performed By: #### B MP, HEPATIC, CBC ####[address] Sodium [Moles/Vol] 132 mmol/L Low 136-145 [facility] Comment on above: Performed By: #### B MP, HEPATIC, CBC ####[place] [id number] [facility] Urea nitrogen [Mass/Vol] 22 mg/dL Normal 7-25 [facility] Comment on above: Performed By: #### B MP, HEPATIC, CBC ####[place] [id number] [facility] Clostridium Difficileon 10-03 Clostridium Difficile Negative Normal Negative [facility] Comment on above: Order Comment: > or = to 3 loose/watery stools in the last 24 HRS? N Is patient on promotility agents or tube feeding? Y Result Comment: Test ing performed by RT-PCRPERFORMED BY:[address] [place], [place] [phone] MEDICAL DIRECTORSTEFANO HOLT M.D. Performed By: #### G I PROFILE, STL ####[facility] ,#### CUSTOOL, CDT ####[place] [id number] [facility] Complete Blood Count Auto Di ffon 10-24-2023 Basophils (Bld) [#/Vol] 0.1 10*3/uL Normal 0.0-0.2 [facility] Comment on above: Result Comment: PERF ORMED BY:[address] [place], [place] [phone] MEDICAL DIRECTORSTEFANO HOLT M.D. Performed By: #### B MP, HEPATIC, CBC ####[address] Basophils/100 WBC (Bld) 1.0 % Normal . [facility] Comment on above: Performed By: #### B MP, HEPATIC, CBC ####[address] Eosinophils (Bld) [#/Vol] 0.2 10*3/uL Normal 0.0-0.45 [facility] Comment on above: Performed By: #### B MP, HEPATIC, CBC ####[address] Eosinophils/100 WBC (Bld) 1.7 % Normal . [facility] Comment on above: Performed By: #### B MP, HEPATIC, CBC ####[address] Erythrocyte distribution width (RBC) [Ratio] 18.1 % High 11.9-15.3 [facility] Comment on above: Performed By: #### B MP, HEPATIC, CBC ####[address] Hematocrit (Bld) [Volume fraction] 27.5 % Low 34.0-46.4 [facility] Comment on above: Performed By: #### B MP, HEPATIC, CBC ####[address] Hemoglobin (Bld) [Mass/Vol] 9.0 g/dL Low 11.8-15.4 [facility] Comment on above: Performed By: #### B MP, HEPATIC, CBC ####[address] Lymphocytes (Bld) [#/Vol] 1.1 10*3/uL Normal 1.00-4.8 [facility] Comment on above: Performed By: #### B MP, HEPATIC, CBC ####[address] Lymphocytes/100 WBC (Bld) 12.3 % Normal . [facility] Comment on above: Performed By: #### B MP, HEPATIC, CBC ####[address] MCH (RBC) [Entitic mass] 26.6 pg Normal 24.7-34.3 [facility] Comment on above: Performed By: #### B MP, HEPATIC, CBC ####[address] MCV (RBC) [Entitic vol] 81.4 fL Normal 80-100 [facility] Comment on above: Performed By: #### B MP, HEPATIC, CBC ####[address] Mean Corpuscular HGB Conc 32.7 g/dL Normal 32.0-35.0 [facility] Comment on above: Performed By: #### B MP, HEPATIC, CBC ####[address] Monocytes (Bld) [#/Vol] 1.3 10*3/uL High 0.0-0.8 [facility] Comment on above: Performed By: #### B MP, HEPATIC, CBC ####[address] Monocytes/100 WBC (Bld) 14.6 % Normal . [facility] Comment on above: Performed By: #### B MP, HEPATIC, CBC ####[address] Neutrophils (Bld) [#/Vol] 6.4 10*3/uL Normal 1.8-7.7 [facility] Comment on above: Performed By: #### B MP, HEPATIC, CBC ####[address] Neutrophils/100 WBC (Bld) 70.4 % Normal . [facility] Comment on above: Performed By: #### B MP, HEPATIC, CBC ####[address] NRBC% 0.2 /100{WBC} Normal 0-0.5 [facility] Comment on above: Performed By: #### B MP, HEPATIC, CBC ####[address] Platelet mean volume (Bld) [Entitic vol] 7.4 fL Normal 6.3-10.7 [facility] Comment on above: Performed By: #### B MP, HEPATIC, CBC ####[address] Platelets (Bld) [#/Vol] 273 10*3/uL Normal 150-450 [facility] Comment on above: Performed By: #### B MP, HEPATIC, CBC ####[address] RBC (Bld) [#/Vol] 3.38 10*6/uL Low 3.60-5.00 [facility] Comment on above: Performed By: #### B MP, HEPATIC, CBC ####[place] [id number] [facility] WBC (Bld) [#/Vol] 9.2 10*3/uL Normal 3.8-11.6 [facility] Comment on above: Performed By: #### B MP, HEPATIC, CBC ####[place] [phone] [facility] Gastrointestinal Profile, PC Pancho 10-24-2023 Adenovirus F 40/41 Not detected Normal Not Detected [facility] Comment on above: Order Comment: SOURC E OF SPECIMEN: stool Performed By: #### G I PROFILE, STL ####[facility] ,#### CUSTOOL, CDT ####[address] [place] [address] [place] Astrovirus Not detected Normal Not Detected [facility] Comment on above: Order Comment: SOURC E OF SPECIMEN: stool Performed By: #### G I PROFILE, STL ####[facility] ,#### CUSTOOL, CDT ####[address] C Difficile Toxin A/B Not detected Normal Not Detected [facility] Comment on above: Order Comment: SOURC E OF SPECIMEN: stool Performed By: #### G I PROFILE, STL ####[facility] ,#### CUSTOOL, CDT ####[address] Campylobacter Not detected Normal Not Detected [facility] Comment on above: Order Comment: SOURC E OF SPECIMEN: stool Performed By: #### G I PROFILE, STL ####[facility] ,#### CUSTOOL, CDT ####[address] Cryptosporidium Not detected Normal Not Detected [facility] Comment on above: Order Comment: SOURC E OF SPECIMEN: stool Performed By: #### G I PROFILE, STL ####[facility] ,#### CUSTOOL, CDT ####[address] Cyclospora cayetanensis Not detected Normal Not Detected [facility] Comment on above: Order Comment: SOURC E OF SPECIMEN: stool Performed By: #### G I PROFILE, STL ####[facility] ,#### CUSTOOL, CDT ####[address] E coli O157 Not applicable Normal Not Detected [facility] Comment on above: Order Comment: SOURC E OF SPECIMEN: stool Performed By: #### G I PROFILE, STL ####[facility] ,#### CUSTOOL, CDT ####[address] [address] [facility] Entamoeba histolytica Not detected Normal Not Detected [facility] Comment on above: Order Comment: SOURC E OF SPECIMEN: stool Performed By: #### G I PROFILE, STL ####[facility] ,#### CUSTOOL, CDT ####[address] [address] [facility] Enteroaggregative E coli Not detected Normal Not Detected [facility] Comment on above: Order Comment: SOURC E OF SPECIMEN: stool Performed By: #### G I PROFILE, STL ####[facility] ,#### CUSTOOL, CDT ####[place] [phone] [facility] Enteropathogenic E coli Not detected Normal Not Detected [facility] Comment on above: Order Comment: SOURC E OF SPECIMEN: stool Performed By: #### G I PROFILE, STL ####[facility] ,#### CUSTOOL, CDT ####[place] [phone] [facility] Enterotoxigenic E coli Not detected Normal Not Detected [facility] Comment on above: Order Comment: SOURC E OF SPECIMEN: stool Performed By: #### G I PROFILE, STL ####[facility] ,#### CUSTOOL, CDT ####[place] [phone] [facility] Giardia lamblia Not detected Normal Not Detected [facility] Comment on above: Order Comment: SOURC E OF SPECIMEN: stool Performed By: #### G I PROFILE, STL ####[facility] ,#### CUSTOOL, CDT ####[address] [address] [facility] Norovirus GI/GII Detected Critically abnormal Not Detected [facility] Comment on above: Order Comment: SOURC E OF SPECIMEN: stool Performed By: #### G I PROFILE, STL ####[facility] ,#### CUSTOOL, CDT ####[address] [address] [facility] Plesiomonas shigelloides Not detected Normal Not Detected [facility] Comment on above: Order Comment: SOURC E OF SPECIMEN: stool Performed By: #### G I PROFILE, STL ####[facility] ,#### CUSTOOL, CDT ####[address] [address] [facility] Rotavirus A Not detected Normal Not Detected [facility] Comment on above: Order Comment: SOURC E OF SPECIMEN: stool Performed By: #### G I PROFILE, STL ####[facility] ,#### CUSTOOL, CDT ####[address] [address] [facility] Salmonella Not detected Normal Not Detected [facility] Comment on above: Order Comment: SOURC E OF SPECIMEN: stool Performed By: #### G I PROFILE, STL ####[facility] ,#### CUSTOOL, CDT ####[place] [phone] [facility] Sapovirus Not detected Normal Not Detected [facility] Comment on above: Order Comment: SOURC E OF SPECIMEN: stool Result Comment: Perf ormed at: [address] [id number] Field Service Specialist: Fatoumata Daley MD, Phone: [phone] BY:[place] [address] [address], [place] [id number] MEDICAL DIRECTORSTEFANO HOLT M.D. Performed By: #### G I PROFILE, STL ####[facility] ,#### CUSTOOL, CDT ####[address] [address] [facility] Mktmc-vwxcm-sokljaxps E coli Not detected Normal Not Detected [facility] Comment on above: Order Comment: SOURC E OF SPECIMEN: stool Performed By: #### G I PROFILE, STL ####[facility] ,#### CUSTOOL, CDT ####[place] [phone] [facility] Shigella/Enteroinvasiv e E coli Not detected Normal Not Detected [facility] Comment on above: Order Comment: SOURC E OF SPECIMEN: stool Performed By: #### G I PROFILE, STL ####[facility] ,#### CUSTOOL, CDT ####[address] [address] [facility] Vibrio Not detected Normal Not Detected [facility] Comment on above: Order Comment: SOURC E OF SPECIMEN: stool Performed By: #### G I PROFILE, STL ####[facility] ,#### CUSTOOL, CDT ####[address] Vibrio cholerae Not detected Normal Not Detected [facility] Comment on above: Order Comment: SOURC E OF SPECIMEN: stool Performed By: #### G I PROFILE, STL ####[facility] ,#### CUSTOOL, CDT ####[place] [phone] [facility] Yersinia enterocolitica Not detected Normal Not Detected [facility] Comment on above: Order Comment: SOURC E OF SPECIMEN: stool Performed By: #### G I PROFILE, STL ####[facility] ,#### CUSTOOL, CDT ####[place] [phone] [facility] Hepatic Panelon 10-24-2023 Albumin [Mass/Vol] 2.8 g/dL Low 3.5-5.7 [facility] Comment on above: Performed By: #### B MP, HEPATIC, CBC ####[place] [phone] [facility] Albumin/Globulin [Mass ratio] 0.8 {ratio} Normal [facility] Comment on above: Performed By: #### B MP, HEPATIC, CBC ####[address] [address] [facility] ALP [Catalytic activity/Vol] 85 U/L Normal 34-104 [facility] Comment on above: Performed By: #### B MP, HEPATIC, CBC ####[address] [address] [facility] ALT [Catalytic activity/Vol] 139 U/L High 7-52 [facility] Comment on above: Performed By: #### B MP, HEPATIC, CBC ####[address] [address] [facility] AST [Catalytic activity/Vol] 37 U/L Normal 13-39 [facility] Comment on above: Performed By: #### B MP, HEPATIC, CBC ####[place] [phone] [facility] Bilirubin [Mass/Vol] 0.6 mg/dL Normal 0.3-1.0 [facility] Comment on above: Performed By: #### B MP, HEPATIC, CBC ####[address] [address] [facility] Bilirubin,Indirect 0.4 mg/dL Normal [facility] Comment on above: Performed By: #### B MP, HEPATIC, CBC ####[place] [phone] [facility] Bilirubin.indirect [Mass/Vol] 0.20 mg/dL High 0.03-0.18 [facility] Comment on above: Performed By: #### B MP, HEPATIC, CBC ####[address] [address] [facility] Globulin (S) [Mass/Vol] 3.7 g/dL Normal [facility] Comment on above: Performed By: #### B MP, HEPATIC, CBC ####[place] [phone] [facility] Protein [Mass/Vol] 6.5 g/dL Normal 6.4-8.9 [facility] Comment on above: Performed By: #### B MP, HEPATIC, CBC ####[place] [phone] [facility] Basic Metabolic Panelon 10-03 Anion gap [Moles/Vol] 10.6 mmol/L Normal 6.0-15.0 [facility] Comment on above: Performed By: #### H EPATIC BMP, CBC ####[place] [phone] [facility] Calcium [Mass/Vol] 8.8 mg/dL Normal 8.6-10.3 [facility] Comment on above: Performed By: #### H EPAGIGI BMP, CBC ####[address] Chloride [Moles/Vol] 102 mmol/L Normal 98-107 [facility] Comment on above: Performed By: #### H EPAGIGI BMP, CBC ####[address] CO2 [Moles/Vol] 22.2 mmol/L Normal 21.0-31.0 [facility] Comment on above: Performed By: #### H EPAGIGI BMP, CBC ####[place] [phone] [facility] Creatinine [Mass/Vol] 0.92 mg/dL Normal 0.60-1.20 [facility] Comment on above: Performed By: #### H EPAGIGI BMP, CBC ####[address] Creatinine Clr Calc Pharmacy 57.00 Normal [facility] Comment on above: Result Comment: PERF ORMED BY:[address] [place], [place] [phone] MEDICAL NAHID HOLT M.D. Performed By: #### H EPAGIGI BMP, CBC ####[place] [phone] [facility] GFR/1.73 sq M.predicted MDRD (S/P/Bld) [Vol rate/Area] mL/min/{1.73_m2} Normal [facility] Comment on above: Performed By: #### H DURAN DAO, CBC ####[address] Glucose [Mass/Vol] 96 mg/dL Normal 70-100 [facility] Comment on above: Result Comment: [facility] Glucose Reference Range is dependent on time and content of last meal. Glucose of more than 200 mg/dL in a nonstressed, ambulatory subject supports the diagnosis of Diabetes Mellitus. ADA recommended reference range Performed By: #### H DURAN DAO, CBC ####[address] Potassium [Moles/Vol] 4.8 mmol/L Normal 3.5-5.1 [facility] Comment on above: Performed By: #### H DURAN DAO, CBC ####[address] Sodium [Moles/Vol] 130 mmol/L Low 136-145 [facility] Comment on above: Performed By: #### H DURAN DAO, CBC ####[place] [phone] [facility] Urea nitrogen [Mass/Vol] 28 mg/dL High 7-25 [facility] Comment on above: Performed By: #### H DURAN DAO, CBC ####[place] [phone] [facility] Complete Blood Count Auto Di ffon 10-23-2023 Basophils (Bld) [#/Vol] 0.1 10*3/uL Normal 0.0-0.2 [facility] Comment on above: Result Comment: PERF ORMED BY:[address] [place], [place] [id number] MEDICAL DIRECTORSTEFANO HOLT M.D. Performed By: #### H DURAN DAO, CBC ####[place] [phone] [place] Basophils/100 WBC (Bld) 1.2 % Normal . [facility] Comment on above: Performed By: #### H EPATIC, BMP, CBC ####[address] Eosinophils (Bld) [#/Vol] 0.1 10*3/uL Normal 0.0-0.45 [facility] Comment on above: Performed By: #### H EPATIC, BMP, CBC ####[address] Eosinophils/100 WBC (Bld) 0.6 % Normal . [facility] Comment on above: Performed By: #### H EPATIC, BMP, CBC ####[address] Erythrocyte distribution width (RBC) [Ratio] 17.7 % High 11.9-15.3 [facility] Comment on above: Performed By: #### H EPATIC, BMP, CBC ####[address] Hematocrit (Bld) [Volume fraction] 29.2 % Low 34.0-46.4 [facility] Comment on above: Performed By: #### H EPATIC, BMP, CBC ####[address] Hemoglobin (Bld) [Mass/Vol] 9.4 g/dL Low 11.8-15.4 [facility] Comment on above: Performed By: #### H EPATIC, BMP, CBC ####[address] Lymphocytes (Bld) [#/Vol] 1.2 10*3/uL Normal 1.00-4.8 [facility] Comment on above: Performed By: #### H EPATIC, BMP, CBC ####[address] Lymphocytes/100 WBC (Bld) 11.1 % Normal . [facility] Comment on above: Performed By: #### H EPATIC, BMP, CBC ####[address] MCH (RBC) [Entitic mass] 26.4 pg Normal 24.7-34.3 [facility] Comment on above: Performed By: #### H FELIBERTO BMP, CBC ####[address] MCV (RBC) [Entitic vol] 81.6 fL Normal 80-100 [facility] Comment on above: Performed By: #### H FELIBERTO BMP, CBC ####[address] Mean Corpuscular HGB Conc 32.4 g/dL Normal 32.0-35.0 [facility] Comment on above: Performed By: #### H FELIBERTO BMP, CBC ####[address] Monocytes (Bld) [#/Vol] 1.3 10*3/uL High 0.0-0.8 [facility] Comment on above: Performed By: #### H FELIBERTO BMP, CBC ####[address] Monocytes/100 WBC (Bld) 12.4 % Normal . [facility] Comment on above: Performed By: #### H DURAN DAO, CBC ####[address] Neutrophils (Bld) [#/Vol] 7.8 10*3/uL High 1.8-7.7 [facility] Comment on above: Performed By: #### H EPAGIGI BMP, CBC ####[address] Neutrophils/100 WBC (Bld) 74.7 % Normal . [facility] Comment on above: Performed By: #### H FELIBERTO BMP, CBC ####[address] NRBC% 0.4 /100{WBC} Normal 0-0.5 [facility] Comment on above: Performed By: #### H FELIBERTO BMP, CBC ####[address] Platelet mean volume (Bld) [Entitic vol] 7.5 fL Normal 6.3-10.7 [facility] Comment on above: Performed By: #### H DURAN DAO, CBC ####[address] Platelets (Bld) [#/Vol] 293 10*3/uL Normal 150-450 [facility] Comment on above: Performed By: #### H DURAN DAO, CBC ####[address] RBC (Bld) [#/Vol] 3.57 10*6/uL Low 3.60-5.00 [facility] Comment on above: Performed By: #### H DURAN DAO, CBC ####[address] WBC (Bld) [#/Vol] 10.5 10*3/uL Normal 3.8-11.6 [facility] Comment on above: Performed By: #### H DURAN DAO, CBC ####[address] Hepatic Panelon 10-23-2023 Albumin [Mass/Vol] 2.9 g/dL Low 3.5-5.7 [facility] Comment on above: Performed By: #### H DURAN DAO, CBC ####[address] Albumin/Globulin [Mass ratio] 0.7 {ratio} Normal [facility] Comment on above: Performed By: #### H FELIBERTO BMP, CBC ####[address] ALP [Catalytic activity/Vol] 102 U/L Normal 34-104 [facility] Comment on above: Performed By: #### H FELIBERTO BMP, CBC ####[address] ALT [Catalytic activity/Vol] 206 U/L High 7-52 [facility] Comment on above: Performed By: #### H DURAN DAO, CBC ####[address] AST [Catalytic activity/Vol] 95 U/L High 13-39 [facility] Comment on above: Performed By: #### H EPATIC, BMP, CBC ####[place] [phone] [facility] Bilirubin [Mass/Vol] 0.5 mg/dL Normal 0.3-1.0 [facility] Comment on above: Performed By: #### H EPAGIGI, BMP, CBC ####[address] Bilirubin,Indirect 0.3 mg/dL Normal [facility] Comment on above: Performed By: #### H EPAGIGI, BMP, CBC ####[address] Bilirubin.indirect [Mass/Vol] 0.20 mg/dL High 0.03-0.18 [facility] Comment on above: Performed By: #### H EPAGIGI BMP, CBC ####[address] Globulin (S) [Mass/Vol] 4.0 g/dL Normal [facility] Comment on above: Performed By: #### H EPATIC, BMP, CBC ####[address] Protein [Mass/Vol] 6.9 g/dL Normal 6.4-8.9 [facility] Comment on above: Performed By: #### H EPAGIGI, BMP, CBC ####[place] [phone] [facility] Basic Metabolic Panelon 10-03 Anion gap [Moles/Vol] 11.6 mmol/L Normal 6.0-15.0 [facility] Comment on above: Performed By: #### B MP, HEPATIC, CBC ####[address] Calcium [Mass/Vol] 8.8 mg/dL Normal 8.6-10.3 [facility] Comment on above: Performed By: #### B MP, HEPATIC, CBC ####[address] [address] [facility] Chloride [Moles/Vol] 101 mmol/L Normal 98-107 [facility] Comment on above: Performed By: #### B MP, HEPATIC, CBC ####[address] [place] [place] [address] [facility] CO2 [Moles/Vol] 19.3 mmol/L Low 21.0-31.0 [facility] Comment on above: Performed By: #### B MP, HEPATIC, CBC ####[place] [address] [place] [phone] [facility] Creatinine [Mass/Vol] 1.03 mg/dL Normal 0.60-1.20 [facility] Comment on above: Performed By: #### B MP, HEPATIC, CBC ####[place] [phone] [place] Creatinine Clr Calc Pharmacy 50.52 Normal [facility] Comment on above: Result Comment: PERF ORMED BY:[address] [place], [place] [id number] MEDICAL DIRECTORSTEFANO HOLT M.D. Performed By: #### B MP, HEPATIC, CBC ####[address] [address] [facility] GFR/1.73 sq M.predicted MDRD (S/P/Bld) [Vol rate/Area] 58.859 mL/min/{1.73_m2} Normal [facility] Comment on above: Performed By: #### B MP, HEPATIC, CBC ####[address] [address] [facility] Glucose [Mass/Vol] 111 mg/dL High 70-100 [facility] Comment on above: Result Comment: [place] [facility] Glucose Reference Range is dependent on time and content of last meal. Glucose of more than 200 mg/dL in a nonstressed, ambulatory subject supports the diagnosis of Diabetes Mellitus. ADA recommended reference range Performed By: #### B MP, HEPATIC, CBC ####[place] [address] [place] [phone] [facility] Potassium [Moles/Vol] 4.9 mmol/L Normal 3.5-5.1 [facility] Comment on above: Performed By: #### B MP, HEPATIC, CBC ####[place] [phone] [facility] Sodium [Moles/Vol] 127 mmol/L Low 136-145 [facility] Comment on above: Performed By: #### B MP, HEPATIC, CBC ####[place] [address] [place] [phone] [facility] Urea nitrogen [Mass/Vol] 30 mg/dL High 7-25 [facility] Comment on above: Performed By: #### B MP, HEPATIC, CBC ####[place] [phone] [facility] [place] Complete Blood Count Auto Di ffon 10-22-2023 Basophils (Bld) [#/Vol] 0.1 10*3/uL Normal 0.0-0.2 [facility] Comment on above: Result Comment: PERF ORMED BY:[address] [place], [place] [phone] MEDICAL DIRECTORSTEFANO HOLT M.D. Performed By: #### B MP, HEPATIC, CBC ####[place] [id number] [facility] Basophils/100 WBC (Bld) 1.4 % Normal . [facility] Comment on above: Performed By: #### B MP, HEPATIC, CBC ####[place] [id number] [facility] Eosinophils (Bld) [#/Vol] 0.1 10*3/uL Normal 0.0-0.45 [facility] Comment on above: Performed By: #### B MP, HEPATIC, CBC ####[place] [id number] [facility] Eosinophils/100 WBC (Bld) 0.6 % Normal . [facility] Comment on above: Performed By: #### B MP, HEPATIC, CBC ####[address] Erythrocyte distribution width (RBC) [Ratio] 18.1 % High 11.9-15.3 [facility] Comment on above: Performed By: #### B MP, HEPATIC, CBC ####[address] Hematocrit (Bld) [Volume fraction] 28.0 % Low 34.0-46.4 [facility] Comment on above: Performed By: #### B MP, HEPATIC, CBC ####[address] Hemoglobin (Bld) [Mass/Vol] 9.2 g/dL Low 11.8-15.4 [facility] Comment on above: Performed By: #### B MP, HEPATIC, CBC ####[address] Lymphocytes (Bld) [#/Vol] 1.1 10*3/uL Normal 1.00-4.8 [facility] Comment on above: Performed By: #### B MP, HEPATIC, CBC ####[address] Lymphocytes/100 WBC (Bld) 11.6 % Normal . [facility] Comment on above: Performed By: #### B MP, HEPATIC, CBC ####[address] MCH (RBC) [Entitic mass] 26.5 pg Normal 24.7-34.3 [facility] Comment on above: Performed By: #### B MP, HEPATIC, CBC ####[address] MCV (RBC) [Entitic vol] 80.4 fL Normal 80-100 [facility] Comment on above: Performed By: #### B MP, HEPATIC, CBC ####[address] Mean Corpuscular HGB Conc 32.9 g/dL Normal 32.0-35.0 [facility] Comment on above: Performed By: #### B MP, HEPATIC, CBC ####[address] Monocytes (Bld) [#/Vol] 1.0 10*3/uL High 0.0-0.8 [facility] Comment on above: Performed By: #### B MP, HEPATIC, CBC ####[address] Monocytes/100 WBC (Bld) 10.8 % Normal . [facility] Comment on above: Performed By: #### B MP, HEPATIC, CBC ####[address] Neutrophils (Bld) [#/Vol] 7.3 10*3/uL Normal 1.8-7.7 [facility] Comment on above: Performed By: #### B MP, HEPATIC, CBC ####[address] Neutrophils/100 WBC (Bld) 75.6 % Normal . [facility] Comment on above: Performed By: #### B MP, HEPATIC, CBC ####[address] NRBC% 0.9 /100{WBC} High 0-0.5 [facility] Comment on above: Performed By: #### B MP, HEPATIC, CBC ####[address] Platelet mean volume (Bld) [Entitic vol] 7.6 fL Normal 6.3-10.7 [facility] Comment on above: Performed By: #### B MP, HEPATIC, CBC ####[address] Platelets (Bld) [#/Vol] 290 10*3/uL Normal 150-450 [facility] Comment on above: Performed By: #### B MP, HEPATIC, CBC ####[address] RBC (Bld) [#/Vol] 3.48 10*6/uL Low 3.60-5.00 [facility] Comment on above: Performed By: #### B MP, HEPATIC, CBC ####[address] WBC (Bld) [#/Vol] 9.6 10*3/uL Normal 3.8-11.6 [facility] Comment on above: Performed By: #### B MP, HEPATIC, CBC ####[address] Hepatic Panelon 10-22-2023 Albumin [Mass/Vol] 2.9 g/dL Low 3.5-5.7 [facility] Comment on above: Performed By: #### B MP, HEPATIC, CBC ####[address] Albumin/Globulin [Mass ratio] 0.7 {ratio} Normal [facility] Comment on above: Performed By: #### B MP, HEPATIC, CBC ####[address] ALP [Catalytic activity/Vol] 108 U/L High 34-104 [facility] Comment on above: Performed By: #### B MP, HEPATIC, CBC ####[address] ALT [Catalytic activity/Vol] 244 U/L High 7-52 [facility] Comment on above: Performed By: #### B MP, HEPATIC, CBC ####[address] AST [Catalytic activity/Vol] 167 U/L High 13-39 [facility] Comment on above: Performed By: #### B MP, HEPATIC, CBC ####[address] Bilirubin [Mass/Vol] 0.5 mg/dL Normal 0.3-1.0 [facility] Comment on above: Performed By: #### B MP, HEPATIC, CBC ####[address] Bilirubin,Indirect 0.2 mg/dL Normal [facility] Comment on above: Performed By: #### B MP, HEPATIC, CBC ####[address] Bilirubin.indirect [Mass/Vol] 0.30 mg/dL High 0.03-0.18 [facility] Comment on above: Performed By: #### B MP, HEPATIC, CBC ####[address] Globulin (S) [Mass/Vol] 4.1 g/dL Normal [facility] Comment on above: Performed By: #### B MP, HEPATIC, CBC ####[address] Protein [Mass/Vol] 7.0 g/dL Normal 6.4-8.9 [facility] Comment on above: Performed By: #### B MP, HEPATIC, CBC ####[address] Lactic Acidon 10-22-2023 Lactate [Moles/Vol] 1.9 mmol/L Normal 0.5-2.2 [facility] Comment on above: Result Comment: PERF ORMED BY:[address] [place], [place] [phone] MEDICAL NAHID HOLT M.D. Performed By: #### L ACTIC ####[address] Basic Metabolic Panelon 10-03 Anion gap [Moles/Vol] 12.8 mmol/L Normal 6.0-15.0 [facility] Comment on above: Performed By: #### H EPATIC, MG, BMP ####[address] Calcium [Mass/Vol] 8.4 mg/dL Low 8.6-10.3 [facility] Comment on above: Performed By: #### H EPATIC, MG, BMP ####[address] Chloride [Moles/Vol] 101 mmol/L Normal 98-107 [facility] Comment on above: Performed By: #### H MG FELIBERTO, BMP ####[address] CO2 [Moles/Vol] 18.0 mmol/L Low 21.0-31.0 [facility] Comment on above: Performed By: #### H FELIBERTO MG, BMP ####[address] Creatinine [Mass/Vol] 1.18 mg/dL Normal 0.60-1.20 [facility] Comment on above: Performed By: #### H MG FELIBERTO, BMP ####[address] Creatinine Clr Calc Pharmacy 40.49 Normal [facility] Comment on above: Performed By: #### H MG FELIBERTO, BMP ####[address] GFR/1.73 sq M.predicted MDRD (S/P/Bld) [Vol rate/Area] 49.998 mL/min/{1.73_m2} Normal [facility] Comment on above: Performed By: #### H MG FELIBERTO, BMP ####[address] Glucose [Mass/Vol] 104 mg/dL High 70-100 [facility] Comment on above: Result Comment: [place] Glucose Reference Range is dependent on time and content of last meal. Glucose of more than 200 mg/dL in a nonstressed, ambulatory subject supports the diagnosis of Diabetes Mellitus. ADA recommended reference range Performed By: #### H FELIBERTO MG, BMP ####[address] Potassium [Moles/Vol] 4.8 mmol/L Normal 3.5-5.1 [facility] Comment on above: Performed By: #### H FELIBERTO MG, BMP ####[address] Sodium [Moles/Vol] 127 mmol/L Low 136-145 [facility] Comment on above: Performed By: #### H EPAGIGI MG, BMP ####[address] Urea nitrogen [Mass/Vol] 34 mg/dL High 7-25 [facility] Comment on above: Performed By: #### H EPAGIGI MG, BMP ####[address] Hepatic Panelon 10-21-2023 Albumin [Mass/Vol] 2.9 g/dL Low 3.5-5.7 [facility] Comment on above: Performed By: #### H FELIBERTO MG, BMP ####[address] Albumin/Globulin [Mass ratio] 0.7 {ratio} Normal [facility] Comment on above: Performed By: #### H EPAGIGI MG, BMP ####[address] ALP [Catalytic activity/Vol] 105 U/L High 34-104 [facility] Comment on above: Performed By: #### H EPAGIGI MG, BMP ####[address] ALT [Catalytic activity/Vol] 196 U/L High 7-52 [facility] Comment on above: Performed By: #### H EPATIC MG, BMP ####[address] AST [Catalytic activity/Vol] 147 U/L High 13-39 [facility] Comment on above: Performed By: #### H EPATIC MG, BMP ####[address] Bilirubin [Mass/Vol] 0.4 mg/dL Normal 0.3-1.0 [facility] Comment on above: Performed By: #### H EPAGIGI MG, BMP ####[address] Bilirubin,Indirect 0.3 mg/dL Normal [facility] Comment on above: Performed By: #### H EPATIC, MG, BMP ####[address] Bilirubin.indirect [Mass/Vol] 0.10 mg/dL Normal 0.03-0.18 [facility] Comment on above: Performed By: #### H EPATIC, MG, BMP ####[address] Globulin (S) [Mass/Vol] 3.9 g/dL Normal [facility] Comment on above: Performed By: #### H EPATIC, MG, BMP ####[address] Protein [Mass/Vol] 6.8 g/dL Normal 6.4-8.9 [facility] Comment on above: Performed By: #### H EPATIC, MG, BMP ####[address] Magnesiumon 10-21-2023 Magnesium [Mass/Vol] 1.7 mg/dL Low 1.9-2.7 [facility] Comment on above: Result Comment: PERF ORMED BY:[address] [place], [place] [phone] MEDICAL DIRECTORSTEFANO HOLT M.D. Performed By: #### H EPATIC, MG, BMP ####[address] Scan and CBCon 10-21-2023 Anisocytosis Ql (Bld) Slight Normal [facility] Comment on above: Performed By: #### S CAN CBC ####[address] Basophils (Bld) [#/Vol] 0.1 10*3/uL Normal 0.0-0.2 [facility] Comment on above: Performed By: #### S CAN CBC ####[address] Basophils/100 WBC (Bld) 0.5 % Normal . [facility] Comment on above: Performed By: #### S CAN CBC ####[address] Eosinophils (Bld) [#/Vol] 0.1 10*3/uL Normal 0.0-0.45 [facility] Comment on above: Performed By: #### S CAN CBC ####[address] Eosinophils/100 WBC (Bld) 0.9 % Normal . [facility] Comment on above: Performed By: #### S CAN CBC ####[address] Erythrocyte distribution width (RBC) [Ratio] 16.9 % High 11.9-15.3 [facility] Comment on above: Performed By: #### S CAN CBC ####[address] Hematocrit (Bld) [Volume fraction] 25.9 % Low 34.0-46.4 [facility] Comment on above: Performed By: #### S CAN CBC ####[address] Hemoglobin (Bld) [Mass/Vol] 8.5 g/dL Low 11.8-15.4 [facility] Comment on above: Performed By: #### S CAN CBC ####[address] Large Platelets Slight Normal [facility] Comment on above: Result Comment: PERF ORMED BY:[address] [place], [place] [phone] MEDICAL DIRECTORSTEFANO HOLT M.D. Performed By: #### S CAN CBC ####[address] Lymphocytes (Bld) [#/Vol] 1.7 10*3/uL Normal 1.00-4.8 [facility] Comment on above: Performed By: #### S CAN CBC ####[address] Lymphocytes/100 WBC (Bld) 17.1 % Normal . [facility] Comment on above: Performed By: #### S CAN CBC ####[address] MCH (RBC) [Entitic mass] 26.1 pg Normal 24.7-34.3 [facility] Comment on above: Performed By: #### S CAN CBC ####[address] MCV (RBC) [Entitic vol] 79.6 fL Low 80-100 [facility] Comment on above: Performed By: #### S CAN CBC ####[address] Mean Corpuscular HGB Conc 32.8 g/dL Normal 32.0-35.0 [facility] Comment on above: Performed By: #### S CAN CBC ####[address] Monocytes (Bld) [#/Vol] 1.0 10*3/uL High 0.0-0.8 [facility] Comment on above: Performed By: #### S CAN CBC ####[address] Monocytes/100 WBC (Bld) 10.0 % Normal . [facility] Comment on above: Performed By: #### S CAN CBC ####[address] Neutrophils (Bld) [#/Vol] 7.3 10*3/uL Normal 1.8-7.7 [facility] Comment on above: Performed By: #### S CAN CBC ####[address] Neutrophils/100 WBC (Bld) 71.5 % Normal . [facility] Comment on above: Performed By: #### S CAN CBC ####[address] NRBC% 0.6 /100{WBC} High 0-0.5 [facility] Comment on above: Performed By: #### S CAN CBC ####[address] Platelet Estimate Normal Normal Normal [facility] Comment on above: Performed By: #### S CAN CBC ####[address] Platelet mean volume (Bld) [Entitic vol] 7.7 fL Normal 6.3-10.7 [facility] Comment on above: Performed By: #### S CAN CBC ####[address] Platelets (Bld) [#/Vol] 268 10*3/uL Normal 150-450 [facility] Comment on above: Performed By: #### S CAN CBC ####[address] RBC (Bld) [#/Vol] 3.26 10*6/uL Low 3.60-5.00 [facility] Comment on above: Performed By: #### S CAN CBC ####[address] WBC (Bld) [#/Vol] 10.2 10*3/uL Normal 3.8-11.6 [facility] Comment on above: Performed By: #### S CAN CBC ####[address] Basic Metabolic Panelon 10-02 Anion gap [Moles/Vol] 14.1 mmol/L Normal 6.0-15.0 [facility] Comment on above: Performed By: #### S CAN CBC, CK, HS TROP, CKMB, BMP, HEPATIC ####[address] Calcium [Mass/Vol] 8.6 mg/dL Normal 8.6-10.3 [facility] Comment on above: Performed By: #### S CAN CBC, CK, HS TROP, CKMB, BMP, HEPATIC ####[place] [id number] Chloride [Moles/Vol] 99 mmol/L Normal 98-107 [facility] Comment on above: Performed By: #### S CAN CBC, CK, HS TROP, CKMB, BMP, HEPATIC ####[address] CO2 [Moles/Vol] 18.1 mmol/L Low 21.0-31.0 [facility] Comment on above: Performed By: #### S CAN CBC, CK, HS TROP, CKMB, BMP, HEPATIC ####[address] Creatinine [Mass/Vol] 1.33 mg/dL High 0.60-1.20 [facility] Comment on above: Performed By: #### S CAN CBC, CK, HS TROP, CKMB, BMP, HEPATIC ####[address] Creatinine Clr Calc Pharmacy 35.92 Normal [facility] Comment on above: Result Comment: PERF ORMED BY:[address] [place], [place] [phone] MEDICAL NAHID HOLT M.D. Performed By: #### S CAN CBC, CK, HS TROP, CKMB, BMP, HEPATIC ####[address] GFR/1.73 sq M.predicted MDRD (S/P/Bld) [Vol rate/Area] 43.310 mL/min/{1.73_m2} Normal [facility] Comment on above: Performed By: #### S CAN CBC, CK, HS TROP, CKMB, BMP, HEPATIC ####[address] Glucose [Mass/Vol] 111 mg/dL High 70-100 [facility] Comment on above: Result Comment: [place] Glucose Reference Range is dependent on time and content of last meal. Glucose of more than 200 mg/dL in a nonstressed, ambulatory subject supports the diagnosis of Diabetes Mellitus. ADA recommended reference range Performed By: #### S CAN CBC, CK, HS TROP, CKMB, BMP, HEPATIC ####[address] Potassium [Moles/Vol] 5.2 mmol/L High 3.5-5.1 [facility] Comment on above: Performed By: #### S CAN CBC, CK, HS TROP, CKMB, BMP, HEPATIC ####[address] Sodium [Moles/Vol] 126 mmol/L Low 136-145 [facility] Comment on above: Performed By: #### S CAN CBC, CK, HS TROP, CKMB, BMP, HEPATIC ####[address] Urea nitrogen [Mass/Vol] 31 mg/dL High 7-25 [facility] Comment on above: Performed By: #### S CAN CBC, CK, HS TROP, CKMB, BMP, HEPATIC ####[address] Creatine Kinaseon 10-20-2023 CK [Catalytic activity/Vol] 28 U/L Low 30-223 [facility] Comment on above: Performed By: #### S CAN CBC, CK, HS TROP, CKMB, BMP, HEPATIC ####[address] Creatinine Kinase MBon 10-20 CK.MB [Mass/Vol] 5.4 ng/mL Normal 0.6-6.3 [facility] Comment on above: Performed By: #### S CAN CBC, CK, HS TROP, CKMB, BMP, HEPATIC ####[address] CKMB Relative Index 19.2 % High 0.00-2.50 [facility] Comment on above: Performed By: #### S CAN CBC, CK, HS TROP, CKMB, BMP, HEPATIC ####[address] Creatinine, Urine (Random)on 10-20-2023 Creatinine, Urine (Random) 150.0 mg/dL High 11.0-20.0 [facility] Comment on above: Performed By: #### U EOS, UCREA, URTP, , ELISEO ####[place] [id number] [place] [id number] [facility] ECG 12 lead ECGon 10-20-2023 ECG 12 lead ECG Normal [facility] ECH echo transthoracicon ECH echo transthoracic Normal [facility] Eosinophil,Urineon 4 Eosinophil,Urine 0 % Normal 0-1 [facility] Comment on above: Result Comment: PERF ORMED BY:[address] [place], [place] [phone] MEDICAL DIRECTORSTEFANO HOLT M.D. Performed By: #### U EOS, UCREA, URTP, , ELISEO ####[address] Hepatic Panelon 10-20-2023 Albumin [Mass/Vol] 3.0 g/dL Low 3.5-5.7 [facility] Comment on above: Performed By: #### S CAN CBC, CK, HS TROP, CKMB, BMP, HEPATIC ####[address] Albumin/Globulin [Mass ratio] 0.7 {ratio} Normal [facility] Comment on above: Performed By: #### S CAN CBC, CK, HS TROP, CKMB, BMP, HEPATIC ####[address] ALP [Catalytic activity/Vol] 107 U/L High 34-104 [facility] Comment on above: Performed By: #### S CAN CBC, CK, HS TROP, CKMB, BMP, HEPATIC ####[address] ALT [Catalytic activity/Vol] 163 U/L High 7-52 [facility] Comment on above: Performed By: #### S CAN CBC, CK, HS TROP, CKMB, BMP, HEPATIC ####[address] AST [Catalytic activity/Vol] 176 U/L High 13-39 [facility] Comment on above: Performed By: #### S CAN CBC, CK, HS TROP, CKMB, BMP, HEPATIC ####[address] Bilirubin [Mass/Vol] 0.4 mg/dL Normal 0.3-1.0 [facility] Comment on above: Performed By: #### S CAN CBC, CK, HS TROP, CKMB, BMP, HEPATIC ####[address] Bilirubin,Indirect 0.3 mg/dL Normal [facility] Comment on above: Performed By: #### S CAN CBC, CK, HS TROP, CKMB, BMP, HEPATIC ####[address] Bilirubin.indirect [Mass/Vol] 0.10 mg/dL Normal 0.03-0.18 [facility] Comment on above: Performed By: #### S CAN CBC, CK, HS TROP, CKMB, BMP, HEPATIC ####[address] Globulin (S) [Mass/Vol] 4.4 g/dL Normal [facility] Comment on above: Performed By: #### S CAN CBC, CK, HS TROP, CKMB, BMP, HEPATIC ####[address] Protein [Mass/Vol] 7.4 g/dL Normal 6.4-8.9 [facility] Comment on above: Performed By: #### S CAN CBC, CK, HS TROP, CKMB, BMP, HEPATIC ####[address] Potassium, Urine (Random)on 10-20-2023 Potassium, Urine (Random) 52.6 mmol/L Normal [facility] Comment on above: Result Comment: No r eference range establishedPERFORMED BY:[address] [place], [place] [phone] MEDICAL DIRECTORSTEFANO HOLT M.D. Performed By: #### U EOS, UCREA, URTP, [place], ELISEO ####[address] Scan and CBCon 10-20-2023 Anisocytosis Ql (Bld) Slight Normal [facility] Comment on above: Performed By: #### S CAN CBC, CK, HS TROP, CKMB, BMP, HEPATIC ####[address] Basophils (Bld) [#/Vol] 0.1 10*3/uL Normal 0.0-0.2 [facility] Comment on above: Performed By: #### S CAN CBC, CK, HS TROP, CKMB, BMP, HEPATIC ####[address] Basophils/100 WBC (Bld) 0.6 % Normal . [facility] Comment on above: Performed By: #### S CAN CBC, CK, HS TROP, CKMB, BMP, HEPATIC ####[address] Crenated RBC Slight Normal [facility] Comment on above: Performed By: #### S CAN CBC, CK, HS TROP, CKMB, BMP, HEPATIC ####[address] Eosinophils (Bld) [#/Vol] 0.0 10*3/uL Normal 0.0-0.45 [facility] Comment on above: Performed By: #### S CAN CBC, CK, HS TROP, CKMB, BMP, HEPATIC ####[address] Eosinophils/100 WBC (Bld) 0.1 % Normal . [facility] Comment on above: Performed By: #### S CAN CBC, CK, HS TROP, CKMB, BMP, HEPATIC ####[address] Erythrocyte distribution width (RBC) [Ratio] 17.1 % High 11.9-15.3 [facility] Comment on above: Performed By: #### S CAN CBC, CK, HS TROP, CKMB, BMP, HEPATIC ####[address] Hematocrit (Bld) [Volume fraction] 27.4 % Low 34.0-46.4 [facility] Comment on above: Performed By: #### S CAN CBC, CK, HS TROP, CKMB, BMP, HEPATIC ####[address] Hemoglobin (Bld) [Mass/Vol] 9.0 g/dL Low 11.8-15.4 [facility] Comment on above: Performed By: #### S CAN CBC, CK, HS TROP, CKMB, BMP, HEPATIC ####[address] Lymphocytes (Bld) [#/Vol] 1.3 10*3/uL Normal 1.00-4.8 [facility] Comment on above: Performed By: #### S CAN CBC, CK, HS TROP, CKMB, BMP, HEPATIC ####[address] Lymphocytes/100 WBC (Bld) 11.7 % Normal . [facility] Comment on above: Performed By: #### S CAN CBC, CK, HS TROP, CKMB, BMP, HEPATIC ####[address] MCH (RBC) [Entitic mass] 26.1 pg Normal 24.7-34.3 [facility] Comment on above: Performed By: #### S CAN CBC, CK, HS TROP, CKMB, BMP, HEPATIC ####[address] MCV (RBC) [Entitic vol] 79.8 fL Low 80-100 [facility] Comment on above: Performed By: #### S CAN CBC, CK, HS TROP, CKMB, BMP, HEPATIC ####[address] Mean Corpuscular HGB Conc 32.7 g/dL Normal 32.0-35.0 [facility] Comment on above: Performed By: #### S CAN CBC, CK, HS TROP, CKMB, BMP, HEPATIC ####[address] Microcytosis Slight Normal [facility] Comment on above: Performed By: #### S CAN CBC, CK, HS TROP, CKMB, BMP, HEPATIC ####[address] Monocytes (Bld) [#/Vol] 1.1 10*3/uL High 0.0-0.8 [facility] Comment on above: Performed By: #### S CAN CBC, CK, HS TROP, CKMB, BMP, HEPATIC ####[address] Monocytes/100 WBC (Bld) 9.8 % Normal . [facility] Comment on above: Performed By: #### S CAN CBC, CK, HS TROP, CKMB, BMP, HEPATIC ####[address] Neutrophils (Bld) [#/Vol] 8.7 10*3/uL High 1.8-7.7 [facility] Comment on above: Performed By: #### S CAN CBC, CK, HS TROP, CKMB, BMP, HEPATIC ####[address] Neutrophils/100 WBC (Bld) 77.8 % Normal . [facility] Comment on above: Performed By: #### S CAN CBC, CK, HS TROP, CKMB, BMP, HEPATIC ####[address] NRBC% 0.1 /100{WBC} Normal 0-0.5 [facility] Comment on above: Performed By: #### S CAN CBC, CK, HS TROP, CKMB, BMP, HEPATIC ####[place] [address] Platelet Estimate Normal Normal Normal [facility] Comment on above: Performed By: #### S CAN CBC, CK, HS TROP, CKMB, BMP, HEPATIC ####[address] Platelet mean volume (Bld) [Entitic vol] 7.9 fL Normal 6.3-10.7 [facility] Comment on above: Performed By: #### S CAN CBC, CK, HS TROP, CKMB, BMP, HEPATIC ####[address] Platelet Morphology Normal Normal Normal [facility] Comment on above: Result Comment: PERF ORMED BY:[address] [place], [place] [phone] MEDICAL DIRECTORSTEFANO HOLT M.D. Performed By: #### S CAN CBC, CK, HS TROP, CKMB, BMP, HEPATIC ####[address] Platelets (Bld) [#/Vol] 303 10*3/uL Normal 150-450 [facility] Comment on above: Performed By: #### S CAN CBC, CK, HS TROP, CKMB, BMP, HEPATIC ####[address] Poikilocytosis Slight Normal [facility] Comment on above: Performed By: #### S CAN CBC, CK, HS TROP, CKMB, BMP, HEPATIC ####[address] Polychromasia Slight Normal [facility] Comment on above: Performed By: #### S CAN CBC, CK, HS TROP, CKMB, BMP, HEPATIC ####[address] RBC (Bld) [#/Vol] 3.44 10*6/uL Low 3.60-5.00 [facility] Comment on above: Performed By: #### S CAN CBC, CK, HS TROP, CKMB, BMP, HEPATIC ####[address] [place] [address] [facility] WBC (Bld) [#/Vol] 11.1 10*3/uL Normal 3.8-11.6 [facility] Comment on above: Performed By: #### S CAN CBC, CK, HS TROP, CKMB, BMP, HEPATIC ####[address] [address] [facility] Sodium, Urine (Random)on Sodium (U) [Moles/Vol] 15 mmol/L Normal [facility] Comment on above: Result Comment: No r eference range established Performed By: #### U EOS, UCREA, URTP, UK, ELISEO ####[id number] [facility] Total Protein, Urineon 10-20 Protein (U) [Mass/Vol] 112 mg/dL High 0-9 [facility] Comment on above: Performed By: #### U EOS, UCREA, URTP, UK, ELISEO ####[id number] [facility] Troponin I High Sensitivityo n 10-20-2023 Troponin I High Sensitivity 161.2 pg/mL Off scale high 0.0-15.0 [facility] Comment on above: Result Comment: Crit ical Result : Called to and read back by: BASHIR PINO at: 10/20/2023 05:11:09 by:[id number] BY:[address] [place], [place] [phone] MEDICAL DIRECTORSTEFANO HOLT M.D. Performed By: #### S CAN CBC, CK, HS TROP, CKMB, BMP, HEPATIC ####[address] [address] [facility] 36on 10-19-2023 36 Can we please have h er increase her metoprolol to a full tablet of 25mg daily and see if this helps? Thanks Normal [facility] A1C with Estimated Average G radhan 10-19-2023 Glucose [Mass/Vol] 114 mg/dL Normal [facility] Comment on above: Result Comment: PERF ORMED BY:[address] [address] [address] [place], [place] [phone] MEDICAL DIRECTORSTEFANO HOLT M.D. Performed By: #### C UBLD, A1C WTH eA ####[address] [address] [facility] HbA1c (Bld) [Mass fraction] 5.6 % Normal 4.3-5.6 [facility] Comment on above: Result Comment: Incr eased risk for diabetes: 5.7 - 6.4 diabetes: >6.4 glycemic control for adults with diabetes: <7.0 Performed By: #### C UBLD, A1C WT eA ####[address] [address] [facility] ABO/Rh Retypeon 10-19-2023 ABO/RH Recheck Result Positive Normal [facility] Comment on above: Result Comment: PERF ORMED BY:[address] [place], [place] [phone] MEDICAL DIRECTORSTEFANO HOLT M.D. Amylaseon 10-19-2023 Amylase [Catalytic activity/Vol] 20 U/L Low 29-103 [facility] Comment on above: Performed By: #### A MY, PT, URIC, LIPASE, SCAN CBC, PHOS, ESR, LDH, PTT, CRP, HEPATIC, BMP, MG ####[id number] [facility] Basic Metabolic Panelon 10-02 Anion gap [Moles/Vol] 16.3 mmol/L High 6.0-15.0 [facility] Comment on above: Performed By: #### A MY, PT, URIC, LIPASE, SCAN CBC, PHOS, ESR, LDH, PTT, CRP, HEPATIC, BMP, MG ####[id number] [facility] Calcium [Mass/Vol] 9.0 mg/dL Normal 8.6-10.3 [facility] Comment on above: Performed By: #### A MY, PT, URIC, LIPASE, SCAN CBC, PHOS, ESR, LDH, PTT, CRP, HEPATIC, BMP, MG ####[address] Chloride [Moles/Vol] 96 mmol/L Low 98-107 [facility] Comment on above: Performed By: #### A MY, PT, URIC, LIPASE, SCAN CBC, PHOS, ESR, LDH, PTT, CRP, HEPATIC, BMP, MG ####[address] CO2 [Moles/Vol] 19.2 mmol/L Low 21.0-31.0 [facility] Comment on above: Performed By: #### A MY, PT, URIC, LIPASE, SCAN CBC, PHOS, ESR, LDH, PTT, CRP, HEPATIC, BMP, MG ####[address] Creatinine [Mass/Vol] 1.31 mg/dL High 0.60-1.20 [facility] Comment on above: Performed By: #### A MY, PT, URIC, LIPASE, SCAN CBC, PHOS, ESR, LDH, PTT, CRP, HEPATIC, BMP, MG ####[address] Creatinine Clr Calc Pharmacy 36.47 Normal [facility] Comment on above: Performed By: #### A MY, PT, URIC, LIPASE, SCAN CBC, PHOS, ESR, LDH, PTT, CRP, HEPATIC, BMP, MG ####[address] GFR/1.73 sq M.predicted MDRD (S/P/Bld) [Vol rate/Area] 44.105 mL/min/{1.73_m2} Normal [facility] Comment on above: Performed By: #### A MY, PT, URIC, LIPASE, SCAN CBC, PHOS, ESR, LDH, PTT, CRP, HEPATIC, BMP, MG ####[address] Glucose [Mass/Vol] 128 mg/dL High 70-100 [facility] Comment on above: Result Comment: [place] Glucose Reference Range is dependent on time and content of last meal. Glucose of more than 200 mg/dL in a nonstressed, ambulatory subject supports the diagnosis of Diabetes Mellitus. ADA recommended reference range Performed By: #### A MY, PT, URIC, LIPASE, SCAN CBC, PHOS, ESR, LDH, PTT, CRP, HEPATIC, BMP, MG ####[address] Potassium [Moles/Vol] 5.5 mmol/L High 3.5-5.1 [facility] Comment on above: Performed By: #### A MY, PT, URIC, LIPASE, SCAN CBC, PHOS, ESR, LDH, PTT, CRP, HEPATIC, BMP, MG ####[address] Sodium [Moles/Vol] 126 mmol/L Low 136-145 [facility] Comment on above: Performed By: #### A MY, PT, URIC, LIPASE, SCAN CBC, PHOS, ESR, LDH, PTT, CRP, HEPATIC, BMP, MG ####[address] Urea nitrogen [Mass/Vol] 31 mg/dL High 7-25 [facility] Comment on above: Performed By: #### A MY, PT, URIC, LIPASE, SCAN CBC, PHOS, ESR, LDH, PTT, CRP, HEPATIC, BMP, MG ####[id number] [facility] Blood Cultureon 10-19-2023 Bacteria identified Cx Nom (Bld) NO GROWTH 5 DAYS PERFORMED BY: [place] [id number] PATHOLOGIST CUTTER [employer]ET STEFANO HOLT M.D. Normal [facility] Comment on above: Performed By: #### C UBLD, A1C WTH eA ####[id number] [facility] Bacteria identified Cx Nom (Bld) NO GROWTH 5 DAYS PERFORMED BY: [place] [id number] PATHOLOGIST CUT[employer]UM[employer] SHEET STEFANO HOLT M.D. Normal [facility] Comment on above: Performed By: #### C UBLD ####[address] [address] [facility] C-Reactive Proteinon 024 C-Reactive Protein 10.9 mg/dL High 0.0-0.5 [facility] Comment on above: Result Comment: PERF ORMED BY:[address] [address] [address] [place], [place] [phone] MEDICAL DIRECTORSTEFANO HOLT M.D. Performed By: #### A MY, PT, URIC, LIPASE, SCAN CBC, PHOS, ESR, LDH, PTT, CRP, HEPATIC, BMP, MG ####[id number] [facility] Creatine Kinaseon 10-19-2023 CK [Catalytic activity/Vol] 28 U/L Low 30-223 [facility] Comment on above: Performed By: #### C KMB, CK ####[id number] [facility] Creatinine Kinase MBon 10-19 CK.MB [Mass/Vol] 5.0 ng/mL Normal 0.6-6.3 [facility] Comment on above: Performed By: #### C KMB, CK ####[address] [address] [facility] CKMB Relative Index 17.8 % High 0.00-2.50 [facility] Comment on above: Result Comment: PERF ORMED BY:[address] [address] [place], [place] [phone] MEDICAL DIRECTORSTEFANO HOLT M.D. Performed By: #### C KMB, CK ####[id number] [facility] Dipstick and Microscopicon 0 10-19-2023 Appearance (U) Cloudy Critically abnormal Clear [facility] Comment on above: Order Comment: Name Collection Type:: Straight Catheter Performed By: #### A PEPE CUU ####[address] [place] [address] [place] Bacteria,Urine 2+ High None Seen [facility] Comment on above: Order Comment: Name Collection Type:: Straight Catheter Performed By: #### A DDONUAPLUS, CUU ####[address] [address] [place] Bilirubin,Urine Negative Normal Negative [facility] Comment on above: Order Comment: Name Collection Type:: Straight Catheter Performed By: #### A DDONUAPLUS, CUU ####[address] [address] [facility] Color (U) Yellow Normal Yellow [facility] Comment on above: Order Comment: Name Collection Type:: Straight Catheter Performed By: #### A DDONUAPLUS, CUU ####[address] [address] [facility] Glucose Ql (U) Normal Normal Normal [facility] Comment on above: Order Comment: Name Collection Type:: Straight Catheter Performed By: #### A DDONUAPLUS, CUU ####[address] [address] [place] Hyaline Casts,Urine 0-8 Normal 0-8 [facility] Comment on above: Order Comment: Name Collection Type:: Straight Catheter Performed By: #### A DDONUAPLUS, CUU ####[address] [address] [place] Ketones Ql (U) Trace High Negative [facility] Comment on above: Order Comment: Name Collection Type:: Straight Catheter Performed By: #### A DDONUAPLUS, CUU ####[address] [address] [place] Leukocyte esterase Test strip Ql (U) 3+ High Negative [facility] Comment on above: Order Comment: Name Collection Type:: Straight Catheter Performed By: #### A DDONUAPLUS, CUU ####[address] [address] [place] Nitrite,Urine Negative Normal Negative [facility] Comment on above: Order Comment: Name Collection Type:: Straight Catheter Performed By: #### A DDONUAPLUS, CUU ####[address] [address] [facility] Occult Blood,Urine 3+ High Negative [facility] Comment on above: Order Comment: Name Collection Type:: Straight Catheter Result Comment: PERF ORMED BY:[address] [place], [place] [phone] MEDICAL NAHID HOLT M.D. Performed By: #### A DDONUAPLUS, CUU ####[address] [address] [facility] pH (U) 5.0 [pH] Normal 5.0-9.0 [facility] Comment on above: Order Comment: Name Collection Type:: Straight Catheter Performed By: #### A DDONUAPLUS, CUU ####[address] [address] [facility] Protein (U) [Mass/Vol] 100 mg/dL High Negative Th [facility] Comment on above: Order Comment: Name Collection Type:: Straight Catheter Performed By: #### A DDONUAPLUS, CUU ####[address] [address] [facility] RBC,Urine 20-49 High 0-4 [facility] Comment on above: Order Comment: Name Collection Type:: Straight Catheter Performed By: #### A DDONUAPLUS, CUU ####[address] [address] [facility] Specificy [place],Urine 1.020 Normal 1.001-1.03 0 [facility] Comment on above: Order Comment: Name Collection Type:: Straight Catheter Performed By: #### A DDONUAPLUS, CUU ####[address] [address] [facility] Squamous Epithelial Cell,Urine 0-1 Normal 0-2 [facility] Comment on above: Order Comment: Name Collection Type:: Straight Catheter Performed By: #### A DDONUAPLUS, CUU ####[address] [place] [address] [facility] Urobilinogen,Urine Normal Normal Normal [facility] Comment on above: Order Comment: Name Collection Type:: Straight Catheter Performed By: #### A PEPE, CUU ####[id number] [facility] WBC,Urine 10-19 High 0-4 [facility] Comment on above: Order Comment: Name Collection Type:: Straight Catheter Performed By: #### A PEPE, CUU ####[id number] [facility] Yeast,Urine None Seen Normal None Seen [facility] Comment on above: Order Comment: Name Collection Type:: Straight Catheter Result Comment: PERF ORMED BY:[address] [place], [place] [phone] MEDICAL DIRECTORSTEFANO HOLT M.D. Performed By: #### A TISHA CANTUU ####[id number] [facility] Erythrocyte Sedimentation Ra breezy 10-19-2023 ESR (Bld) [Velocity] 79 mm/h High 0-29 [facility] Comment on above: Result Comment: PERF ORMED BY:[address] [place], [place] [phone] MEDICAL DIRECTORSTEFANO HOLT M.D. Performed By: #### A MY, PT, URIC, LIPASE, SCAN CBC, PHOS, ESR, LDH, PTT, CRP, HEPATIC, BMP, MG ####[id number] [facility] Hepatic Panelon 10-19-2023 Albumin [Mass/Vol] 3.2 g/dL Low 3.5-5.7 [facility] Comment on above: Performed By: #### A MY, PT, URIC, LIPASE, SCAN CBC, PHOS, ESR, LDH, PTT, CRP, HEPATIC, BMP, MG ####[id number] [facility] Albumin/Globulin [Mass ratio] 0.7 {ratio} Normal [facility] Comment on above: Performed By: #### A MY, PT, URIC, LIPASE, SCAN CBC, PHOS, ESR, LDH, PTT, CRP, HEPATIC, BMP, MG ####[address] ALP [Catalytic activity/Vol] 117 U/L High 34-104 [facility] Comment on above: Performed By: #### A MY, PT, URIC, LIPASE, SCAN CBC, PHOS, ESR, LDH, PTT, CRP, HEPATIC, BMP, MG ####[address] ALT [Catalytic activity/Vol] 113 U/L High 7-52 [facility] Comment on above: Performed By: #### A MY, PT, URIC, LIPASE, SCAN CBC, PHOS, ESR, LDH, PTT, CRP, HEPATIC, BMP, MG ####[address] AST [Catalytic activity/Vol] 112 U/L High 13-39 [facility] Comment on above: Performed By: #### A MY, PT, URIC, LIPASE, SCAN CBC, PHOS, ESR, LDH, PTT, CRP, HEPATIC, BMP, MG ####[address] Bilirubin [Mass/Vol] 0.5 mg/dL Normal 0.3-1.0 [facility] Comment on above: Performed By: #### A MY, PT, URIC, LIPASE, SCAN CBC, PHOS, ESR, LDH, PTT, CRP, HEPATIC, BMP, MG ####[address] Bilirubin,Indirect 0.3 mg/dL Normal [facility] Comment on above: Performed By: #### A MY, PT, URIC, LIPASE, SCAN CBC, PHOS, ESR, LDH, PTT, CRP, HEPATIC, BMP, MG ####[address] Bilirubin.indirect [Mass/Vol] 0.20 mg/dL High 0.03-0.18 [facility] Comment on above: Performed By: #### A MY, PT, URIC, LIPASE, SCAN CBC, PHOS, ESR, LDH, PTT, CRP, HEPATIC, BMP, MG ####[address] Globulin (S) [Mass/Vol] 4.8 g/dL Normal [facility] Comment on above: Performed By: #### A MY, PT, URIC, LIPASE, SCAN CBC, PHOS, ESR, LDH, PTT, CRP, HEPATIC, BMP, MG ####[address] Protein [Mass/Vol] 8.0 g/dL Normal 6.4-8.9 [facility] Comment on above: Performed By: #### A MY, PT, URIC, LIPASE, SCAN CBC, PHOS, ESR, LDH, PTT, CRP, HEPATIC, BMP, MG ####[address] LDH Lactate Dehydrogenaseon 10-19-2023 LDH Lactate Dehydrogenase 362 U/L High 140-271 [facility] Comment on above: Performed By: #### A MY, PT, URIC, LIPASE, SCAN CBC, PHOS, ESR, LDH, PTT, CRP, HEPATIC, BMP, MG ####[address] Lactic Acidon 10-19-2023 Lactate [Moles/Vol] 4.1 mmol/L Off scale high 0.5-2.2 [facility] Comment on above: Result Comment: Crit ical Result : Called to and read back by: MEHDI PINO at: 10/19/2023 21:20:56 by:RNPERFORMED BY:[address] [place], [place] [phone] MEDICAL DIRECTORSTEFANO HOLT M.D. Performed By: #### H S TROP, LACTIC ####[address] Lactic Acid Reflexon 024 Lactic Acid Reflex 3.6 mmol/L Off scale high 0.5-2.2 [facility] Comment on above: Result Comment: Crit ical Result : Called to and read back by: BASHIR PINO at: 10/19/2023 23:23:24 by:EVPERFORMED BY:[address] [address] [address] [place], [place] [phone] MEDICAL DIRECTORSTEFANO HOLT M.D. Performed By: #### L ACTIC RFX ####[id number] [facility] Lipaseon 10-19-2023 Lipase [Catalytic activity/Vol] 11.0 U/L Normal 11.0-82.0 [facility] Comment on above: Performed By: #### A MY, PT, URIC, LIPASE, SCAN CBC, PHOS, ESR, LDH, PTT, CRP, HEPATIC, BMP, MG ####[address] [address] [facility] Magnesiumon 10-19-2023 Magnesium [Mass/Vol] 2.0 mg/dL Normal 1.9-2.7 [facility] Comment on above: Performed By: #### A MY, PT, URIC, LIPASE, SCAN CBC, PHOS, ESR, LDH, PTT, CRP, HEPATIC, BMP, MG ####[id number] [facility] Partial Thromboplastin Timeo n 10-19-2023 aPTT Coag (Bld) [Time] 26.2 s Normal 25.1-36.5 [facility] Comment on above: Result Comment: A he matocrit value greater than 55% may lead to inaccurate results in coagulation testing. Patients having hematocrit values >55% require a special collection tube for coagulation studies. Please contact the laboratory at [phone] for redraw instructions.PERFORMED BY:[address] [address] [address] [place], [place] [phone] MEDICAL DIRECTORSTEFANO HOLT M.D. Performed By: #### A MY, PT, URIC, LIPASE, SCAN CBC, PHOS, ESR, LDH, PTT, CRP, HEPATIC, BMP, MG ####[address] [place] [address] [facility] Phosphoruson 10-19-2023 Phosphate [Mass/Vol] 5.2 mg/dL High 2.5-4.5 [facility] Comment on above: Performed By: #### A MY, PT, URIC, LIPASE, SCAN CBC, PHOS, ESR, LDH, PTT, CRP, HEPATIC, BMP, MG ####[address] Prothrombin Time INRon 10-19 INR Coag (PPP) [Relative time] 1.4 {INR} Normal [facility] Comment on above: Result Comment: [...] valves: 3 - 4.5 Performed By: #### A MY, PT, URIC, LIPASE, SCAN CBC, PHOS, ESR, LDH, PTT, CRP, HEPATIC, BMP, MG ####[address] PT Coag (PPP) [Time] 15.6 s High 9.0-12.9 [facility] Comment on above: Result Comment: A he matocrit value greater than 55% may lead to inaccurate results in coagulation testing. Patients having hematocrit values >55% require a special collection tube for coagulation studies. Please contact the laboratory at [phone] for redraw instructions. Performed By: #### A MY, PT, URIC, LIPASE, SCAN CBC, PHOS, ESR, LDH, PTT, CRP, HEPATIC, BMP, MG ####[address] Scan and CBCon 10-19-2023 Anisocytosis Ql (Bld) Slight Normal [facility] Comment on above: Performed By: #### A MY, PT, URIC, LIPASE, SCAN CBC, PHOS, ESR, LDH, PTT, CRP, HEPATIC, BMP, MG ####[address] Basophils (Bld) [#/Vol] 0.0 10*3/uL Normal 0.0-0.2 [facility] Comment on above: Performed By: #### A MY, PT, URIC, LIPASE, SCAN CBC, PHOS, ESR, LDH, PTT, CRP, HEPATIC, BMP, MG ####[address] Basophils/100 WBC (Bld) 0.4 % Normal . [facility] Comment on above: Performed By: #### A MY, PT, URIC, LIPASE, SCAN CBC, PHOS, ESR, LDH, PTT, CRP, HEPATIC, BMP, MG ####[address] Crenated RBC Slight Normal [facility] Comment on above: Performed By: #### A MY, PT, URIC, LIPASE, SCAN CBC, PHOS, ESR, LDH, PTT, CRP, HEPATIC, BMP, MG ####[address] Eosinophils (Bld) [#/Vol] 0.0 10*3/uL Normal 0.0-0.45 [facility] Comment on above: Performed By: #### A MY, PT, URIC, LIPASE, SCAN CBC, PHOS, ESR, LDH, PTT, CRP, HEPATIC, BMP, MG ####[address] Eosinophils/100 WBC (Bld) 0.0 % Normal . [facility] Comment on above: Performed By: #### A MY, PT, URIC, LIPASE, SCAN CBC, PHOS, ESR, LDH, PTT, CRP, HEPATIC, BMP, MG ####[address] Erythrocyte distribution width (RBC) [Ratio] 17.0 % High 11.9-15.3 [facility] Comment on above: Performed By: #### A MY, PT, URIC, LIPASE, SCAN CBC, PHOS, ESR, LDH, PTT, CRP, HEPATIC, BMP, MG ####[address] Hematocrit (Bld) [Volume fraction] 31.1 % Low 34.0-46.4 [facility] Comment on above: Performed By: #### A MY, PT, URIC, LIPASE, SCAN CBC, PHOS, ESR, LDH, PTT, CRP, HEPATIC, BMP, MG ####[address] Hemoglobin (Bld) [Mass/Vol] 10.1 g/dL Low 11.8-15.4 [facility] Comment on above: Performed By: #### A MY, PT, URIC, LIPASE, SCAN CBC, PHOS, ESR, LDH, PTT, CRP, HEPATIC, BMP, MG ####[address] Lymphocytes (Bld) [#/Vol] 1.5 10*3/uL Normal 1.00-4.8 [facility] Comment on above: Performed By: #### A MY, PT, URIC, LIPASE, SCAN CBC, PHOS, ESR, LDH, PTT, CRP, HEPATIC, BMP, MG ####[address] Lymphocytes/100 WBC (Bld) 14.8 % Normal . [facility] Comment on above: Performed By: #### A MY, PT, URIC, LIPASE, SCAN CBC, PHOS, ESR, LDH, PTT, CRP, HEPATIC, BMP, MG ####[address] MCH (RBC) [Entitic mass] 25.9 pg Normal 24.7-34.3 [facility] Comment on above: Performed By: #### A MY, PT, URIC, LIPASE, SCAN CBC, PHOS, ESR, LDH, PTT, CRP, HEPATIC, BMP, MG ####[address] MCV (RBC) [Entitic vol] 79.7 fL Low 80-100 [facility] Comment on above: Performed By: #### A MY, PT, URIC, LIPASE, SCAN CBC, PHOS, ESR, LDH, PTT, CRP, HEPATIC, BMP, MG ####[address] Mean Corpuscular HGB Conc 32.5 g/dL Normal 32.0-35.0 [facility] Comment on above: Performed By: #### A MY, PT, URIC, LIPASE, SCAN CBC, PHOS, ESR, LDH, PTT, CRP, HEPATIC, BMP, MG ####[address] Microcytosis Slight Normal [facility] Comment on above: Performed By: #### A MY, PT, URIC, LIPASE, SCAN CBC, PHOS, ESR, LDH, PTT, CRP, HEPATIC, BMP, MG ####[address] Monocytes (Bld) [#/Vol] 0.7 10*3/uL Normal 0.0-0.8 [facility] Comment on above: Performed By: #### A MY, PT, URIC, LIPASE, SCAN CBC, PHOS, ESR, LDH, PTT, CRP, HEPATIC, BMP, MG ####[address] Monocytes/100 WBC (Bld) 7.6 % Normal . [facility] Comment on above: Performed By: #### A MY, PT, URIC, LIPASE, SCAN CBC, PHOS, ESR, LDH, PTT, CRP, HEPATIC, BMP, MG ####[address] Neutrophils (Bld) [#/Vol] 7.5 10*3/uL Normal 1.8-7.7 [facility] Comment on above: Performed By: #### A MY, PT, URIC, LIPASE, SCAN CBC, PHOS, ESR, LDH, PTT, CRP, HEPATIC, BMP, MG ####[address] Neutrophils/100 WBC (Bld) 77.2 % Normal . [facility] Comment on above: Performed By: #### A MY, PT, URIC, LIPASE, SCAN CBC, PHOS, ESR, LDH, PTT, CRP, HEPATIC, BMP, MG ####[address] NRBC% 0.1 /100{WBC} Normal 0-0.5 [facility] Comment on above: Performed By: #### A MY, PT, URIC, LIPASE, SCAN CBC, PHOS, ESR, LDH, PTT, CRP, HEPATIC, BMP, MG ####[address] Ovalocytes Slight Normal [facility] Comment on above: Performed By: #### A MY, PT, URIC, LIPASE, SCAN CBC, PHOS, ESR, LDH, PTT, CRP, HEPATIC, BMP, MG ####[address] Platelet Estimate Normal Normal Normal [facility] Comment on above: Performed By: #### A MY, PT, URIC, LIPASE, SCAN CBC, PHOS, ESR, LDH, PTT, CRP, HEPATIC, BMP, MG ####[address] Platelet mean volume (Bld) [Entitic vol] 8.0 fL Normal 6.3-10.7 [facility] Comment on above: Performed By: #### A MY, PT, URIC, LIPASE, SCAN CBC, PHOS, ESR, LDH, PTT, CRP, HEPATIC, BMP, MG ####[address] Platelet Morphology Normal Normal Normal [facility] Comment on above: Performed By: #### A MY, PT, URIC, LIPASE, SCAN CBC, PHOS, ESR, LDH, PTT, CRP, HEPATIC, BMP, MG ####[address] Platelets (Bld) [#/Vol] 361 10*3/uL Normal 150-450 [facility] Comment on above: Performed By: #### A MY, PT, URIC, LIPASE, SCAN CBC, PHOS, ESR, LDH, PTT, CRP, HEPATIC, BMP, MG ####[address] [address] [place] Polychromasia Slight Normal [facility] Comment on above: Performed By: #### A MY, PT, URIC, LIPASE, SCAN CBC, PHOS, ESR, LDH, PTT, CRP, HEPATIC, BMP, MG ####[address] RBC (Bld) [#/Vol] 3.90 10*6/uL Normal 3.60-5.00 [facility] Comment on above: Performed By: #### A MY, PT, URIC, LIPASE, SCAN CBC, PHOS, ESR, LDH, PTT, CRP, HEPATIC, BMP, MG ####[address] WBC (Bld) [#/Vol] 9.8 10*3/uL Normal 3.8-11.6 [facility] Comment on above: Performed By: #### A MY, PT, URIC, LIPASE, SCAN CBC, PHOS, ESR, LDH, PTT, CRP, HEPATIC, BMP, MG ####[address] Troponin I High Sensitivityo n 10-19-2023 Troponin I High Sensitivity 136.6 pg/mL Off scale high 0.0-15.0 [facility] Comment on above: Result Comment: Crit ical Result : Called to and read back by: MEHDI PINO at: 10/19/2023 22:13:49 by:DCPERFORMED BY:[address] [address] [address] [place], [place] [phone] MEDICAL DIRECTORSTEFANO HOLT M.D. Performed By: #### H S TROP, LACTIC ####[address] Type and Screenon 10-19-2023 ABO and Rh group Nom (Bld) Blood group A Rh(D) positive Normal [facility] Comment on above: Result Comment: PERF ORMED BY:[address] [address] [address] [place], [place] [phone] MEDICAL DIRECTORSTEFANO HOLT M.D. Uric Acidon 10-19-2023 Urate [Mass/Vol] 7.9 mg/dL High 2.3-6.6 [facility] Comment on above: Performed By: #### A MY, PT, URIC, LIPASE, SCAN CBC, PHOS, ESR, LDH, PTT, CRP, HEPATIC, BMP, MG ####[address] [place] [address] [facility] Urine Cultureon 10-19-2023 Bacteria identified Cx Nom (U) No Growth 2 Days PERFORMED BY: [facility] [address] [place] [address] PATHOLOGIST CUTTER ALUMINUM SHEET STEFANO HOLT M.D. Normal [facility] Comment on above: Performed By: #### A DDONUAPLUS, CUU ####[address] [address] [facility] Office Visiton 10-12-2023 Follow-up visit [id number] Perla Ibarra 1955 F Date Provider Department Center 10/12/2023 [facility] Family History Problem Relation Age of Onset Tuberculosis Mother Heart attack Brother Heart failure Maternal Grandmother Heart attack Maternal Grandfather Family Status - Relation Status Age at Mother Brother Maternal Grandmother Maternal Grandfather Level of Service:77440 DE OFFICE/OUTPATIENT ESTABLISHED LOW MDM 20 MIN Reason for Visit and Comments: Congestive Heart Failure [127] Coronary Artery Disease [187] Hypertension [530847] Normal [facility] Ferritin [Mass/volume] in Se rum or PlasmaOrdered By: Vannessa Perales on 10-05-2023 Ferritin [Mass/Vol] 994.8 ng/mL High 11.0-306.8 [facility] Comment on above: Result Comment: PERF ORMED BY:[address] [place], [place] [phone] MEDICAL DIRECTORSTEFANO HOLT M.D. Performed By: #### F E and TIBC, KRISTI ####[address] [place] [address] [facility] Iron [Mass/volume] in Serum or PlasmaOrdered By: Vannessa Perales on 10-05-2023 Iron [Mass/Vol] 26 ug/dL Low 50-212 [facility] Comment on above: Performed By: #### F E and TIBC, KRISTI ####[id number] [facility] Iron and TIBC Profileon 4-202 % Iron Saturation 10.9 % Low 20-50 [facility] Comment on above: Performed By: #### F E and TIBC, KRISTI ####[facility] [place] [address] [facility] Total Iron Binding Capacity 239 ug/dL Low 255-450 [facility] Comment on above: Performed By: #### F E and TIBC, KRISTI ####[id number] [facility] Iron binding capacity [Mass/ volume] in Serum or PlasmaOrdered By: Vannessa Perales on 10-05-2023 Iron binding capacity [Mass/Vol] 239 ug/dL 255-450 [facility] Iron saturation [Mass Fracti on] in Serum or PlasmaOrdered By: Vannessa Perales on 10-05-2023 Iron saturation [Mass fraction] 10.9 % 20-50 [facility] Transferrin [Mass/volume] in Serum or PlasmaOrdered By: Vannessa Perales on 10-05-2023 Transferrin [Mass/Vol] 171 mg/dL Low 203-362 [facility] Comment on above: Performed By: #### F E and TIBC, KRISTI ####[id number] [facility] Adrenocorticotropic Hormone PLon 10-04-[address] 25.4 pg/mL Normal 7.2-63.3 [facility] Comment on above: Result Comment: ACTH reference interval for samples collected between 7 and 10 AM. Performed at: - [facility] [id number] Field Service Specialist: Juan Hendricks PhD, Phone: [phone] BY:[address] [address] [place], [place] [phone] MEDICAL DIRECTORSTEFANO HOLT M.D. Performed By: #### C ORT, T4F, TSH3 ####[address]#### ACTH ####[facility] , Alanine aminotransferase [En zymatic activity/volume] in Serum or PlasmaOrdered By: Aries Chavez on 10-04-2023 ALT [Catalytic activity/Vol] 67 U/L High 7-52 [facility] Comment on above: Performed By: #### C MP, CBC ####[address] Albumin [Mass/volume] in Ser um or Plasma by Bromocresol green (BCG) dye binding methoOrdered By: Aries Chavez on 10-04-2023 Albumin BCG dye [Mass/Vol] 3.4 g/dL 3.5-5.7 [facility] Alkaline phosphatase [Enzyma tic activity/volume] in Serum or PlasmaOrdered By: Aries Chavez on 10-04-2023 ALP [Catalytic activity/Vol] 113 U/L High 34-104 [facility] Comment on above: Performed By: #### C MP, CBC ####[address] Aspartate aminotransferase [ Enzymatic activity/volume] in Serum or PlasmaOrdered By: Aries Chavez on 10-04-2023 AST [Catalytic activity/Vol] 22 U/L Normal 13-39 [facility] Comment on above: Performed By: #### C MP, CBC ####[address] Automated basophil %Ordered By: Aries Chavez on 10-04-2023 Basophils/100 WBC (Bld) 2.3 % Normal . [facility] Comment on above: Performed By: #### C MP, CBC ####[address] Automated basophil countOrde red By: Aries Chavez on 10-04-2023 Basophils (Bld) [#/Vol] 0.1 10*3/uL Normal 0.0-0.2 [facility] Comment on above: Result Comment: PERF ORMED BY:[address] [place], [place] [phone] MEDICAL DIRECTORSTEFANO HOLT M.D. Performed By: #### C MP, CBC ####[address] Automated blood monocyte cou ntOrdered By: Aries Chavez on 10-04-2023 Monocytes (Bld) [#/Vol] 0.7 10*3/uL Normal 0.0-0.8 [facility] Comment on above: Performed By: #### C MP, CBC ####[address] Automated eosinophil %Ordere d By: Aries Chavez on 10-04-2023 Eosinophils/100 WBC (Bld) 2.8 % Normal . [facility] Comment on above: Performed By: #### C MP, CBC ####[address] Automated eosinophil countOr dered By: Aries Chavez on 10-04-2023 Eosinophils (Bld) [#/Vol] 0.2 10*3/uL Normal 0.0-0.45 [facility] Comment on above: Performed By: #### C MP, CBC ####[address] Automated monocyte %Ordered By: Aries Chavez on 10-04-2023 Monocytes/100 WBC (Bld) 11.5 % Normal . [facility] Comment on above: Performed By: #### C MP, CBC ####[address] Automated neutrophil %Ordere d By: Aries Chavez on 10-04-2023 Neutrophils/100 WBC (Bld) 61.7 % Normal . [facility] Comment on above: Performed By: #### C MP, CBC ####[address] [id number] [facility] Bilirubin.total [Mass/volume ] in Serum or PlasmaOrdered By: Aries Chavez on 10-04-2023 Bilirubin [Mass/Vol] 0.3 mg/dL Normal 0.3-1.0 [facility] Comment on above: Performed By: #### C MP, CBC ####[address] [id number] [facility] Calcium [Mass/volume] in Ser um or PlasmaOrdered By: Aries Chavez on 10-04-2023 Calcium [Mass/Vol] 8.9 mg/dL Normal 8.6-10.3 [facility] Comment on above: Performed By: #### C MP, CBC ####[address] Carbon dioxide, total [Moles /volume] in Serum or PlasmaOrdered By: Aries Chavez on 10-04-2023 CO2 [Moles/Vol] 26.2 mmol/L Normal 21.0-31.0 [facility] Comment on above: Performed By: #### C MP, CBC ####[id number] [facility] Chloride [Moles/volume] in S leena or PlasmaOrdered By: Aries Chavez on 10-04-2023 Chloride [Moles/Vol] 94 mmol/L Low 98-107 [facility] Comment on above: Performed By: #### C MP, CBC ####[place] [id number] [facility] Complete Blood Count Auto Di ffon 10-04-2023 Mean Corpuscular HGB Conc 32.0 g/dL Normal 32.0-35.0 [facility] Comment on above: Performed By: #### C MP, CBC ####[id number] [facility] NRBC% 0.1 /100{WBC} Normal 0-0.5 [facility] Comment on above: Performed By: #### C MP, CBC ####[address] [address] [facility] Comprehensive Metabolic Pane onesimo 10-04-2023 Albumin [Mass/Vol] 3.4 g/dL Low 3.5-5.7 [facility] Comment on above: Performed By: #### C MP, CBC ####[address] Creatinine Clr Calc Pharmacy 59.72 Normal [facility] Comment on above: Result Comment: PERF ORMED BY:[address] [place], [place] [phone] MEDICAL DIRECTORSTEFANO HOLT M.D. Performed By: #### C MP, CBC ####[place] [id number] [facility] GFR/1.73 sq M.predicted MDRD (S/P/Bld) [Vol rate/Area] mL/min/{1.73_m2} Normal [facility] Comment on above: Performed By: #### C MP, CBC ####[address] [id number] [facility] Cortisolon 10-04-2023 Cortisol 12.2 ug/dL Normal [facility] Comment on above: Result Comment: Refe rence range: AM 6 - 24 ug/dl PM <10 ug/dl [facility] sign hanger supervisor and method: AMRITA UNICEL DXI, POLYCLONAL ANTIBODY CORTISOL ASSAY.PERFORMED BY:[address] VELASQUEZGabeTORSTENNEW[place], [place] [phone] MEDICAL DIRECTORSTEFANO HOLT M.D. Performed By: #### C ORT, T4F, TSH3 ####[address] [facility]#### ACTH ####[facility] , Creatinine [Mass/volume] in Serum or PlasmaOrdered By: Aries Chavez on 10-04-2023 Creatinine [Mass/Vol] 0.75 mg/dL Normal 0.60-1.20 [facility] Comment on above: Performed By: #### C MP, CBC ####[facility] [place] [address] [facility] Erythrocyte distribution wid th [Ratio] by Automated countOrdered By: Aries Chavez on 10-04-2023 Erythrocyte distribution width (RBC) [Ratio] 18.4 % High 11.9-15.3 [facility] Comment on above: Performed By: #### C MP, CBC ####[place] [id number] [facility] Erythrocytes [#/volume] in B lood by Automated countOrdered By: Aries Chavez on 10-04-2023 RBC (Bld) [#/Vol] 3.32 10*6/uL Low 3.60-5.00 [facility] Comment on above: Performed By: #### C MP, CBC ####[place] [id number] [facility] Glucose [Mass/volume] in Ser um or PlasmaOrdered By: Aries Chavez on 10-04-2023 Glucose [Mass/Vol] 101 mg/dL High 70-100 [facility] Comment on above: ADA recommended refe rence rangeRandom Glucose Reference Range is dependent on time and content of last meal. Glucose of more than 200 mg/dL in a nonstressed, ambulatory subject supports the diagnosis of Diabetes Mellitus. Result Comment: [place] om Glucose Reference Range is dependent on time and content of last meal. Glucose of more than 200 mg/dL in a nonstressed, ambulatory subject supports the diagnosis of Diabetes Mellitus. ADA recommended reference range Performed By: #### C MP, CBC ####[place] [id number] [facility] Hematocrit [Volume Fraction] of Blood by Automated countOrdered By: Aries Chavez on 10-04-2023 Hematocrit (Bld) [Volume fraction] 26.2 % Low 34.0-46.4 [facility] Comment on above: Performed By: #### C MP, CBC ####[address] [address] [facility] Hemoglobin [Mass/volume] in BloodOrdered By: Aries Chavez on 10-04-2023 Hemoglobin (Bld) [Mass/Vol] 8.4 g/dL Low 11.8-15.4 [facility] Comment on above: Performed By: #### C MP, CBC ####[address] Leukocytes [#/volume] correc gabriel for nucleated erythrocytes in Blood by Automated counOrdered By: Aries Chavez on 10-04-2023 WBC corrected for nucl RBC Auto (Bld) [#/Vol] 5.8 10*3/uL 3.8-11.6 [facility] Leukocytes [#/volume] in Blo od by Automated countOrdered By: Aries Chavez on 10-04-2023 WBC (Bld) [#/Vol] 5.8 10*3/uL Normal 3.8-11.6 [facility] Comment on above: Performed By: #### C MP, CBC ####[address] Lymphocytes [#/volume] in Bl ood by Automated countOrdered By: Aries Chavez on 10-04-2023 Lymphocytes (Bld) [#/Vol] 1.2 10*3/uL Normal 1.00-4.8 [facility] Comment on above: Performed By: #### C MP, CBC ####[address] Lymphocytes/100 leukocytes i n Blood by Automated countOrdered By: Aries Chavez on 10-04-2023 Lymphocytes/100 WBC (Bld) 21.7 % Normal . [facility] Comment on above: Performed By: #### C MP, CBC ####[place] [id number] [facility] MCH [Entitic mass] by Automa gabriel countOrdered By: Aries Chavez on 10-04-2023 MCH (RBC) [Entitic mass] 25.3 pg Normal 24.7-34.3 [facility] Comment on above: Performed By: #### C MP, CBC ####[address] MCHC Auto (RBC) [Mass/Vol]Or dered By: Aries Chavez on 10-04-2023 MCHC (RBC) [Mass/Vol] 32.0 g/dL 32.0-35.0 [facility] MCV [Entitic volume] by Auto mated countOrdered By: Aries Chavez on 10-04-2023 MCV (RBC) [Entitic vol] 79.1 fL Low 80-100 [facility] Comment on above: Performed By: #### C MP, CBC ####[facility] [id number] Neutrophils [#/volume] in Bl ood by Automated countOrdered By: Aries Chavez on 10-04-2023 Neutrophils (Bld) [#/Vol] 3.6 10*3/uL Normal 1.8-7.7 [facility] Comment on above: Performed By: #### C MP, CBC ####[facility] [id number] [place] [address] No Panel InformationOrdered By: Aries Chavez on 10-04-2023 Adrenocorticotropic Hormone 25.4 pg/mL 7.2-63.3 [facility] Comment on above: ACTH reference inter wendy for samples collected between 7 and10 AM.Performed at: [facility] [id number] Director: Juan Hendricks PhD, Phone: [phone] Estimated GFR (CKD-EPI) > 60.0 mL/Min [facility] Creatinine Clearance (Chem 59.72 [facility] Nucleated erythrocytes [Pres ence] in Blood by Automated countOrdered By: Aries Chavez on 10-04-2023 Nucleated RBC Auto Ql (Bld) 0.1 /100{WBC} 0-0.5 [facility] Platelet mean volume [Entiti c volume] in Blood by Automated countOrdered By: Aries Chavez on 10-04-2023 Platelet mean volume (Bld) [Entitic vol] 6.8 fL Normal 6.3-10.7 [facility] Comment on above: Performed By: #### C MP, CBC ####[place] [id number] [facility] Platelets [#/volume] in Bloo d by Automated countOrdered By: Aries Chavez on 10-04-2023 Platelets (Bld) [#/Vol] 404 10*3/uL Normal 150-450 [facility] Comment on above: Performed By: #### C MP, CBC ####[address] Potassium [Moles/volume] in Serum or PlasmaOrdered By: Aries Chavez on 10-04-2023 Potassium [Moles/Vol] 4.7 mmol/L Normal 3.5-5.1 [facility] Comment on above: Performed By: #### C MP, CBC ####[address] Protein [Mass/volume] in Ser um or PlasmaOrdered By: Aries Chavez on 10-04-2023 Protein [Mass/Vol] 7.9 g/dL Normal 6.4-8.9 [facility] Comment on above: Performed By: #### C MP, CBC ####[address] Random cortisol measurementO rdered By: Aries Chavez on 10-04-2023 Cortisol [Mass/Vol] 12.2 ug/dL [facility] Comment on above: [facility] sign hanger supervisor and method:AMRITA UNICEL DXI, POLYCLONAL ANTIBODY CORTISOL ASSAY.Reference range: AM 6 - 24 ug/dl PM <10 ug/dl Serum globulin measurement b y calculation (mass/volume)Ordered By: Aries Chavez on 10-04-2023 Globulin (S) [Mass/Vol] 4.5 g/dL [facility] Comment on above: Performed By: #### C MP, CBC ####[place] [id number] [facility] Serum or plasma albumin/glob ulin mass ratioOrdered By: Aries Chavez on 10-04-2023 Albumin/Globulin [Mass ratio] 0.8 {ratio} [facility] Comment on above: Performed By: #### C MP, CBC ####[address] Serum or plasma anion gap de terminationOrdered By: Aries Chavez on 10-04-2023 Anion gap [Moles/Vol] 9.5 mmol/L Normal 6.0-15.0 [facility] Comment on above: Performed By: #### C MP, CBC ####[address] Sodium [Moles/volume] in Ser um or PlasmaOrdered By: Aries Chavez on 10-04-2023 Sodium [Moles/Vol] 125 mmol/L Low 136-145 [facility] Comment on above: Performed By: #### C MP, CBC ####[address] Thyrotropin [Units/volume] i n Serum or PlasmaOrdered By: Aries Chavez on 10-04-2023 TSH Qn 1.03 m[IU]/L Normal 0.45-5.33 [facility] Comment on above: Performed By: #### C ORT, T4F, TSH3 ####[address]#### ACTH ####[facility] , Thyroxine (T4) free [Mass/vo lume] in Serum or PlasmaOrdered By: Aries Chavez on 10-04-2023 Free T4 [Mass/Vol] 1.00 ng/dL Normal 0.61-1.12 [facility] Comment on above: Performed By: #### C ORT, T4F, TSH3 ####[place] [address] [place]#### ACTH ####[facility] , Urea nitrogen [Mass/volume] in Serum or PlasmaOrdered By: Aries Chavez on 10-04-2023 Urea nitrogen [Mass/Vol] 17 mg/dL Normal 7-25 [facility] Comment on above: Performed By: #### C MP, CBC ####[address] Adrenocorticotropic Hormone PLon 09-12-[address] 33.9 pg/mL Normal 7.2-63.3 [facility] Comment on above: Result Comment: ACTH reference interval for samples collected between 7 and 10 AM. Performed at: - [facility] [id number] Field Service Specialist: Juan Hendricks PhD, Phone: [phone] BY:[address] [place]ESISMalouGabeGRE[place], [place] [phone] MEDICAL DIRECTORSTEFANO HOLT M.D. Performed By: #### C UU, T4F, TSH3, ADDONUAPLUS, JER ####[address]#### ACTH ####[facility] , Anisocytosis [Presence] in B lood by Light microscopyOrdered By: Aries Chavez on 09-12-2023 Anisocytosis Ql (Bld) Moderate Normal [facility] Comment on above: Performed By: #### C MP, SCAN CBC ####[place] [address] Automated erythrocytes count in urine sediment (number/area)Ordered By: Aries Chavez on 09-12-2023 RBC Auto (Urine sed) [#/Area] 5-9 [HPF] High 0-4 [facility] Automated leukocytes count i n urine sediment (number/area)Ordered By: Aries Chavez on 09-12-2023 WBC Auto (Urine sed) [#/Area] 5-9 [HPF] High 0-4 [facility] Automated urine color determ inationOrdered By: Aries Chavez on 09-12-2023 Color (U) Yellow Normal Yellow [facility] Comment on above: Order Comment: Name Collection Type:: Voided Performed By: #### C UU, T4F, TSH3, ADDONUAPLUS, JER ####[address] [address] [place] [id number] [facility]#### ACTH ####[facility] , Bilirubin Test strip Ql (U)O rdered By: Aries Chavez on 09-12-2023 Bilirubin Ql (U) Negative Negative [facility] Comprehensive Metabolic Pane onesimo 09-12-2023 Albumin [Mass/Vol] 3.4 g/dL Low 3.5-5.7 [facility] Comment on above: Performed By: #### C MP, SCAN CBC ####[place] [id number] [facility] Albumin/Globulin [Mass ratio] 0.8 {ratio} Normal [facility] Comment on above: Performed By: #### C MP, SCAN CBC ####[address] [address] [facility] ALP [Catalytic activity/Vol] 89 U/L Normal 34-104 [facility] Comment on above: Performed By: #### C MP, SCAN CBC ####[place] [id number] [facility] ALT [Catalytic activity/Vol] 43 U/L Normal 7-52 [facility] Comment on above: Performed By: #### C MP, SCAN CBC ####[place] [id number] [facility] Anion gap [Moles/Vol] 8.3 mmol/L Normal 6.0-15.0 [facility] Comment on above: Performed By: #### C MP, SCAN CBC ####[address] [address] [facility] AST [Catalytic activity/Vol] 14 U/L Normal 13-39 [facility] Comment on above: Performed By: #### C MP, SCAN CBC ####[place] [id number] [facility] Bilirubin [Mass/Vol] 0.3 mg/dL Normal 0.3-1.0 [facility] Comment on above: Performed By: #### C MP, SCAN CBC ####[address] [address] [place] Calcium [Mass/Vol] 9.1 mg/dL Normal 8.6-10.3 [facility] Comment on above: Performed By: #### C MP, SCAN CBC ####[address] Chloride [Moles/Vol] 95 mmol/L Low 98-107 [facility] Comment on above: Performed By: #### C MP, SCAN CBC ####[address] CO2 [Moles/Vol] 28.4 mmol/L Normal 21.0-31.0 [facility] Comment on above: Performed By: #### C MP, SCAN CBC ####[address] Creatinine [Mass/Vol] 0.68 mg/dL Normal 0.60-1.20 [facility] Comment on above: Performed By: #### C MP, SCAN CBC ####[address] Creatinine Clr Calc Pharmacy 59.72 Normal [facility] Comment on above: Result Comment: PERF ORMED BY:[address] [place], [place] [id number] MEDICAL NAHID HOLT M.D. Performed By: #### C MP, SCAN CBC ####[address] GFR/1.73 sq M.predicted MDRD (S/P/Bld) [Vol rate/Area] mL/min/{1.73_m2} Normal [facility] Comment on above: Performed By: #### C MP, SCAN CBC ####[address] Globulin (S) [Mass/Vol] 4.5 g/dL Normal [facility] Comment on above: Performed By: #### C MP, SCAN CBC ####[address] Glucose [Mass/Vol] 97 mg/dL Normal 70-100 [facility] Comment on above: Result Comment: [place] Glucose Reference Range is dependent on time and content of last meal. Glucose of more than 200 mg/dL in a nonstressed, ambulatory subject supports the diagnosis of Diabetes Mellitus. ADA recommended reference range Performed By: #### C MP, SCAN CBC ####[facility] [place] [address] [facility] Potassium [Moles/Vol] 4.7 mmol/L Normal 3.5-5.1 [facility] Comment on above: Performed By: #### C MP, SCAN CBC ####[address] [place] [address] [facility] Protein [Mass/Vol] 7.9 g/dL Normal 6.4-8.9 [facility] Comment on above: Performed By: #### C MP, SCAN CBC ####[place] [id number] [facility] Sodium [Moles/Vol] 127 mmol/L Low 136-145 [facility] Comment on above: Performed By: #### C MP, SCAN CBC ####[address] [place] [address] [facility] Urea nitrogen [Mass/Vol] 13 mg/dL Normal 7-25 [facility] Comment on above: Performed By: #### C MP, SCAN CBC ####[facility] [place] [address] [facility] Cortisolon 09-12-2023 Cortisol 14.6 ug/dL Normal [facility] Comment on above: Result Comment: Refe rence range: AM 6 - 24 ug/dl PM <10 ug/dlPERFORMED BY:[address] [place], [place] [phone] MEDICAL DIRECTORSTEFANO HOLT M.D. Performed By: #### C UU, T4F, TSH3, ADDONUAPLUS, JER ####[address] [place] [address] [facility]#### ACTH ####[facility] , Dipstick and Microscopicon 1 11-13-2022 Appearance (U) Clear Normal Clear [facility] Comment on above: Order Comment: Name Collection Type:: Voided Performed By: #### C UU, T4F, TSH3, ADDONUAPLUS, JER ####[address]#### ACTH ####[facility] , Bacteria,Urine None Seen Normal None Seen [facility] Comment on above: Order Comment: Name Collection Type:: Voided Performed By: #### C UU, T4F, TSH3, ADDONUAPLUS, JER ####[address]#### ACTH ####[facility] , Bilirubin,Urine Negative Normal Negative [facility] Comment on above: Order Comment: Name Collection Type:: Voided Performed By: #### C UU, T4F, TSH3, ADDONUAPLUS, JER ####[address]#### ACTH ####[facility] , Glucose Ql (U) Normal Normal Normal [facility] Comment on above: Order Comment: Name Collection Type:: Voided Performed By: #### C UU, T4F, TSH3, ADDONUAPLUS, JER ####[address]#### ACTH ####[facility] , Hyaline Casts,Urine 0-8 Normal 0-8 [facility] Comment on above: Order Comment: Name Collection Type:: Voided Performed By: #### C UU, T4F, TSH3, ADDONUAPLUS, JER ####[place] [address] [place]#### ACTH ####[facility] , Ketones Ql (U) Negative Normal Negative [facility] Comment on above: Order Comment: Name Collection Type:: Voided Performed By: #### C UU, T4F, TSH3, ADDONUAPLUS, JER ####[address]#### ACTH ####[facility] , Leukocyte esterase Test strip Ql (U) 2+ High Negative [facility] Comment on above: Order Comment: Name Collection Type:: Voided Performed By: #### C UU, T4F, TSH3, ADDONUAPLUS, JER ####[address]#### ACTH ####[facility] , Nitrite,Urine Negative Normal Negative [facility] Comment on above: Order Comment: Name Collection Type:: Voided Performed By: #### C UU, T4F, TSH3, ADDONUAPLUS, JER ####[address]#### ACTH ####[facility] , Occult Blood,Urine 2+ High Negative [facility] Comment on above: Order Comment: Name Collection Type:: Voided Result Comment: PERF ORMED BY:[address] [place]ouGabeGRE[place], [place] [phone] MEDICAL NAHID HOLT M.D. Performed By: #### C UU, T4F, TSH3, ADDONUAPLUS, JER ####[address]#### ACTH ####[facility] , RBC,Urine 5-9 High 0-4 [facility] Comment on above: Order Comment: Name Collection Type:: Voided Performed By: #### C UU, T4F, TSH3, ADDONUAPLUS, JER ####[address]#### ACTH ####[facility] , Specificy [place],Urine 1.012 Normal 1.001-1.03 0 [facility] Comment on above: Order Comment: Name Collection Type:: Voided Performed By: #### C UU, T4F, TSH3, ADDONUAPLUS, JER ####[address] [address] [facility]#### ACTH ####[facility] , Squamous Epithelial Cell,Urine None Seen Normal 0-2 [facility] Comment on above: Order Comment: Name Collection Type:: Voided Performed By: #### C UU, T4F, TSH3, ADDONUAPLUS, JER ####[address] [address] [facility]#### ACTH ####[facility] , Urobilinogen,Urine Normal Normal Normal [facility] Comment on above: Order Comment: Name Collection Type:: Voided Performed By: #### C UU, T4F, TSH3, ADDONUAPLUS, JER ####[address] [address]#### ACTH ####[facility] , WBC,Urine 5-9 High 0-4 [facility] Comment on above: Order Comment: Name Collection Type:: Voided Performed By: #### C UU, T4F, TSH3, ADDONUAPLUS, JER ####[address] [address] [facility]#### ACTH ####[facility] , Yeast,Urine None Seen Normal None Seen [facility] Comment on above: Order Comment: Name Collection Type:: Voided Result Comment: PERF ORMED BY:[address] [place]MalouGabeTORSTEN, [place] [phone] MEDICAL NAHID HOLT M.D. Performed By: #### C UU, T4F, TSH3, ADDONUAPLUS, JER ####[place] [id number] [facility]#### ACTH ####[facility] , Free T4 (Free Thyroxine)on 11-13-2022 Free T4 [Mass/Vol] 1.12 ng/dL Normal 0.61-1.12 [facility] Comment on above: Performed By: #### C UU, T4F, TSH3, ADDONUAPLUS, JER ####[facility] [address] [place] [id number] [facility]#### ACTH ####[facility] , Hypochromia LM Ql (Bld)Order ed By: Aries Chavez on 09-12-2023 Hypochromia Ql (Bld) Moderate [facility] Ketones Auto test strip (U) [Mass/Vol]Ordered By: Aries Chavez on 09-12-2023 Ketones (U) [Mass/Vol] Negative Negative [facility] - UrinalysisOrder ed By: Aries Chavez on 09-12-2023 Hyaline casts LM Ql (Urine sed) 0-8 [LPF] 0-8 [facility] Microcytes LM Ql (Bld)Ordere d By: Aries Chavez on 09-12-2023 Microcytes Ql (Bld) Slight [facility] Nitrite Test strip Ql (U)Ord ered By: Aries Chavez on 09-12-2023 Nitrite Ql (U) Negative Negative [facility] No Panel InformationOrdered By: Aries Chavez on 09-12-2023 Adrenocorticotropic Hormone 33.9 pg/mL 7.2-63.3 [facility] Comment on above: ACTH reference inter wendy for samples collected between 7 and10 AM.Performed at: [facility] Lab[address] [id number] Director: uJan Hendricks PhD, Phone: [phone] Ovalocyte detectionOrdered B y: Aries Chavez on 09-12-2023 Ovalocytes LM Ql (Bld) Slight [facility] Platelet adequacy [Presence] in Blood by Light microscopyOrdered By: Aries Chavez on 09-12-2023 Platelets LM Ql (Bld) Normal Normal [facility] Platelet morphology finding [Identifier] in BloodOrdered By: Aries Chavez on 09-12-2023 Platelet morphology finding Nom (Bld) Normal Normal [facility] Poikilocytosis [Presence] in Blood by Light microscopyOrdered By: Aries Chavez on 09-12-2023 Poikilocytosis LM Ql (Bld) Slight [facility] Polychromasia [Presence] in Blood by Light microscopyOrdered By: Aries Chavez on 09-12-2023 Polychromasia LM Ql (Bld) Slight [facility] RBC morphologyOrdered By: Gregorio Chavez on 09-12-2023 RBC morphology finding Nom (Bld) N/A [facility] Scan and CBCon 09-12-2023 Basophils (Bld) [#/Vol] 0.1 10*3/uL Normal 0.0-0.2 [facility] Comment on above: Performed By: #### C MP, SCAN CBC ####[address] Basophils/100 WBC (Bld) 2.3 % Normal . [facility] Comment on above: Performed By: #### C MP, SCAN CBC ####[address] Eosinophils (Bld) [#/Vol] 0.1 10*3/uL Normal 0.0-0.45 [facility] Comment on above: Performed By: #### C MP, SCAN CBC ####[place] [id number] [facility] Eosinophils/100 WBC (Bld) 1.8 % Normal . [facility] Comment on above: Performed By: #### C MP, SCAN CBC ####[place] [id number] [facility] Erythrocyte distribution width (RBC) [Ratio] 20.8 % High 11.9-15.3 [facility] Comment on above: Performed By: #### C MP, SCAN CBC ####[place] [id number] [facility] Hematocrit (Bld) [Volume fraction] 25.0 % Low 34.0-46.4 [facility] Comment on above: Performed By: #### C MP, SCAN CBC ####[address] Hemoglobin (Bld) [Mass/Vol] 8.1 g/dL Low 11.8-15.4 [facility] Comment on above: Performed By: #### C MP, SCAN CBC ####[address] Hypersegmented Neutrophils Slight Normal [facility] Comment on above: Performed By: #### C MP, SCAN CBC ####[address] Hypochromasia Moderate Normal [facility] Comment on above: Performed By: #### C MP, SCAN CBC ####[address] Lymphocytes (Bld) [#/Vol] 1.3 10*3/uL Normal 1.00-4.8 [facility] Comment on above: Performed By: #### C MP, SCAN CBC ####[address] Lymphocytes/100 WBC (Bld) 21.2 % Normal . [facility] Comment on above: Performed By: #### C MP, SCAN CBC ####[address] MCH (RBC) [Entitic mass] 25.6 pg Normal 24.7-34.3 [facility] Comment on above: Performed By: #### C MP, SCAN CBC ####[address] MCV (RBC) [Entitic vol] 79.0 fL Low 80-100 [facility] Comment on above: Performed By: #### C MP, SCAN CBC ####[address] Mean Corpuscular HGB Conc 32.4 g/dL Normal 32.0-35.0 [facility] Comment on above: Performed By: #### C MP, SCAN CBC ####[address] [place] [address] [place] Microcytosis Slight Normal [facility] Comment on above: Performed By: #### C MP, SCAN CBC ####[address] Monocytes (Bld) [#/Vol] 0.7 10*3/uL Normal 0.0-0.8 [facility] Comment on above: Performed By: #### C MP, SCAN CBC ####[address] Monocytes/100 WBC (Bld) 11.7 % Normal . [facility] Comment on above: Performed By: #### C MP, SCAN CBC ####[address] Neutrophils (Bld) [#/Vol] 3.9 10*3/uL Normal 1.8-7.7 [facility] Comment on above: Performed By: #### C MP, SCAN CBC ####[address] Neutrophils/100 WBC (Bld) 63.0 % Normal . [facility] Comment on above: Performed By: #### C MP, SCAN CBC ####[address] NRBC% 0.1 /100{WBC} Normal 0-0.5 [facility] Comment on above: Performed By: #### C MP, SCAN CBC ####[address] Ovalocytes Slight Normal [facility] Comment on above: Performed By: #### C MP, SCAN CBC ####[address] Platelet Estimate Normal Normal Normal [facility] Comment on above: Performed By: #### C MP, SCAN CBC ####[address] Platelet mean volume (Bld) [Entitic vol] 7.5 fL Normal 6.3-10.7 [facility] Comment on above: Performed By: #### C MP, SCAN CBC ####[address] Platelet Morphology Normal Normal Normal [facility] Comment on above: Result Comment: PERF ORMED BY:[place] [address] [address] [place], [place] [id number] MEDICAL DIRECTORSTEFANO HOLT M.D. Performed By: #### C MP, SCAN CBC ####[address] Platelets (Bld) [#/Vol] 395 10*3/uL Normal 150-450 [facility] Comment on above: Performed By: #### C MP, SCAN CBC ####[address] Poikilocytosis Slight Normal [facility] Comment on above: Performed By: #### C MP, SCAN CBC ####[address] Polychromasia Slight Normal [facility] Comment on above: Performed By: #### C MP, SCAN CBC ####[address] RBC (Bld) [#/Vol] 3.17 10*6/uL Low 3.60-5.00 [facility] Comment on above: Performed By: #### C MP, SCAN CBC ####[address] WBC (Bld) [#/Vol] 6.2 10*3/uL Normal 3.8-11.6 [facility] Comment on above: Performed By: #### C MP, SCAN CBC ####[address] Specific gravity Auto test s trip (U) [Rel density]Ordered By: Aries Chavez on 09-12-2023 Specific gravity (U) [Rel density] 1.012 1.001-1.03 0 [facility] Squamous epithelial cells de tection in urine sediment by light microscopyOrdered By: Aries Chavez on 09-12-2023 Epithelial cells.squamous LM Ql (Urine sed) None seen [HPF] 0-2 [facility] Thyroid Stimulating Hormoneo n 09-12-2023 TSH Qn 0.90 m[IU]/L Normal 0.45-5.33 [facility] Comment on above: Performed By: #### C UU, T4F, TSH3, ADDONUAPLUS, JER ####[facility] [id number]#### ACTH ####[facility] , Urine Cultureon 09-12-2023 Bacteria identified Cx Nom (U) Normal [facility] Comment on above: Performed By: #### C UU, T4F, TSH3, ADDONUAPLUS, JER ####[facility] [id number]#### ACTH ####[facility] , Urine bacteria detection by automated methodOrdered By: Aries Chavez on 09-12-2023 Bacteria Auto Ql (U) None seen None Seen [facility] Urine clarity by refractomet ry automatedOrdered By: Aries Chavez on 09-12-2023 Clarity Refractometry automated (U) Clear Clear [facility] Urine culture routineOrdered By: Aries Chavez on 09-12-2023 Bacteria identified Cx Nom (U) 2 Days [facility] Bacteria identified Cx Nom (U) 2 Days [facility] Urine glucose measurement by automated test strip (mass/volume)Ordered By: Aries Chavez on 09-12-2023 Glucose Auto test strip (U) [Mass/Vol] Normal mg/dL Normal [facility] Urine hemoglobin detection b y automated test stripOrdered By: Aries Chavez on 09-12-2023 Hemoglobin Auto test strip Ql (U) 2+ High Negative [facility] Urine leukocyte esterase det ection by automated test stripOrdered By: Aries Chavez on 09-12-2023 Leukocyte esterase Auto test strip Ql (U) 2+ High Negative [facility] Urine pH measurement by auto mated test stripOrdered By: Aries Chavez on 09-12-2023 pH (U) 6.0 [pH] Normal 5.0-9.0 [facility] Comment on above: Order Comment: Name Collection Type:: Voided Performed By: #### C UU, T4F, TSH3, ADDONUAPLUS, JER ####[facility]#### ACTH ####[facility] , Urine protein measurement by automated test strip (mass/volume)Ordered By: Aries Chavez on 09-12-2023 Protein (U) [Mass/Vol] 100 mg/dL High Negative [facility] Comment on above: Order Comment: Name Collection Type:: Voided Performed By: #### C UU, T4F, TSH3, ADDONUAPLUS, JER ####[facility]#### ACTH ####[facility] , Urobilinogen Auto test strip (U) [Mass/Vol]Ordered By: Aries Chavez on 09-12-2023 Urobilinogen (U) [Mass/Vol] Normal mg/dL Normal [facility] Whole blood hypersegmented n eutrophils detection by light microscopyOrdered By: Aries Chavez on 09-12-2023 Neutrophils.hypersegme nted LM Ql (Bld) Slight [facility] Yeast detection in urine sed iment by light microscopyOrdered By: Aries Chavez on 09-12-2023 Yeast LM Ql (Urine sed) None seen [HPF] None Seen [facility] Activated partial thrombopla stin time (aPTT) in platelet poor plasma by coagulation aOrdered By: Aries Chavez on 08-22-2023 aPTT Coag (PPP) [Time] 28.9 s 25.1-36.5 [facility] Comment on above: A hematocrit value g reater than 55% may lead to inaccurate results in coagulation testing. Patients having hematocrit values >55% require a special collection tube for coagulation studies. Please contact the laboratory at [phone] for redraw instructions. Coagulation Profileon 2022 aPTT Coag (Bld) [Time] 28.9 s Normal 25.1-36.5 [facility] Comment on above: Result Comment: A he matocrit value greater than 55% may lead to inaccurate results in coagulation testing. Patients having hematocrit values >55% require a special collection tube for coagulation studies. Please contact the laboratory at [phone] for redraw instructions.PERFORMED BY:[facility] [place], [place] [phone] MEDICAL DIRECTORSTEFANO HOLT M.D. Performed By: #### P P, PLT ####[facility] [id number] [place] [address] [facility] INR in Platelet poor plasma by Coagulation assayOrdered By: Aries Chavez on 08-22-2023 INR Coag (PPP) [Relative time] 1.1 {INR} Normal [facility] Comment on above: INR Therapeutic Rang [...] 4.5 Performed By: #### P P, PLT ####[facility] [address] [place] [address] [facility] Onesimo 08-22-2023 L Normal [facility] Platelets [#/volume] in Bloo d by Automated countOrdered By: Aries Chavez on 08-22-2023 Platelets (Bld) [#/Vol] 368 10*3/uL Normal 150-450 [facility] Comment on above: Result Comment: PERF ORMED BY:[address] [place], [place] [phone] MEDICAL DIRECTORSTEFANO HOLT M.D. Performed By: #### P P, PLT ####[address] [place] [address] [facility] Prothrombin time (PT)Ordered By: Aries Chavez on 08-22-2023 PT Coag (PPP) [Time] 13.1 s High 9.0-12.9 [facility] Comment on above: A hematocrit value g reater than 55% may lead to inaccurate results in coagulation testing. Patients having hematocrit values >55% require a special collection tube for coagulation studies. Please contact the laboratory at [phone] for redraw instructions. Result Comment: A he matocrit value greater than 55% may lead to inaccurate results in coagulation testing. Patients having hematocrit values >55% require a special collection tube for coagulation studies. Please contact the laboratory at [phone] for redraw instructions. Performed By: #### P P, PLT ####[address] [place] [address] [facility] US needle biopsyon 3 US needle biopsy Normal [facility] Alanine aminotransferase [En zymatic activity/volume] in Serum or PlasmaOrdered By: Aries Chavez on 07-31-2023 ALT [Catalytic activity/Vol] 40 U/L Normal 7-52 [facility] Comment on above: Performed By: #### C BC, CMP, KRISTI, FE and TIBC ####[address] [address] [facility] Albumin [Mass/volume] in Ser um or Plasma by Bromocresol green (BCG) dye binding methoOrdered By: Aries Chavez on 07-31-2023 Albumin BCG dye [Mass/Vol] 3.7 g/dL 3.5-5.7 [facility] Alkaline phosphatase [Enzyma tic activity/volume] in Serum or PlasmaOrdered By: Aries Chavez on 07-31-2023 ALP [Catalytic activity/Vol] 91 U/L Normal 34-104 [facility] Comment on above: Performed By: #### C BC, CMP, KRISTI, FE and TIBC ####[address] Aspartate aminotransferase [ Enzymatic activity/volume] in Serum or PlasmaOrdered By: Aries Chavez on 07-31-2023 AST [Catalytic activity/Vol] 12 U/L Low 13-39 [facility] Comment on above: Performed By: #### C BC, CMP, KRISTI, FE and TIBC ####[address] Automated basophil %Ordered By: Aries Chavez on 07-31-2023 Basophils/100 WBC (Bld) 2.0 % Normal . [facility] Comment on above: Performed By: #### C BC, CMP, KRISTI, FE and TIBC ####[address] Automated basophil countOrde red By: Aries Chavez on 07-31-2023 Basophils (Bld) [#/Vol] 0.2 10*3/uL Normal 0.0-0.2 [facility] Comment on above: Result Comment: PERF ORMED BY:[address] [place], [place] [id number] MEDICAL DIRECTORSTEFANO HOLT M.D. Performed By: #### C BC, CMP, KRISTI, FE and TIBC ####[address] Automated blood monocyte cou ntOrdered By: Aries Chavez on 07-31-2023 Monocytes (Bld) [#/Vol] 0.7 10*3/uL Normal 0.0-0.8 [facility] Comment on above: Performed By: #### C BC, CMP, KRISTI, FE and TIBC ####[address] Automated eosinophil %Ordere d By: Aries Chavez on 07-31-2023 Eosinophils/100 WBC (Bld) 1.8 % Normal . [facility] Comment on above: Performed By: #### C BC, CMP, KRISTI, FE and TIBC ####[place] [id number] [address] Automated eosinophil countOr dered By: Aries Chavez on 07-31-2023 Eosinophils (Bld) [#/Vol] 0.1 10*3/uL Normal 0.0-0.45 [facility] Comment on above: Performed By: #### C BC, CMP, KRISTI, FE and TIBC ####[address] Automated erythrocytes count in urine sediment (number/area)Ordered By: Aries Chavez on 07-31-2023 RBC Auto (Urine sed) [#/Area] 5-9 [HPF] 0-4 [facility] Automated leukocytes count i n urine sediment (number/area)Ordered By: Aries Chavez on 07-31-2023 WBC Auto (Urine sed) [#/Area] None seen [HPF] 0-4 [facility] Automated monocyte %Ordered By: Aries Chavez on 07-31-2023 Monocytes/100 WBC (Bld) 8.2 % Normal . [facility] Comment on above: Performed By: #### C BC, CMP, KRISTI, FE and TIBC ####[address] Automated neutrophil %Ordere d By: Aries Chavez on 07-31-2023 Neutrophils/100 WBC (Bld) 65.7 % Normal . [facility] Comment on above: Performed By: #### C BC, CMP, KRISTI, FE and TIBC ####[address] Automated urine color determ inationOrdered By: Aries Chavez on 07-31-2023 Color (U) Elayne Critically abnormal Yellow [facility] Comment on above: Order Comment: Name Collection Type:: Voided Performed By: #### A DDONUAPLUS, CUU ####[address] Bilirubin Test strip Ql (U)O rdered By: Aries Chavez on 07-31-2023 Bilirubin Ql (U) See comment Negative [facility] Comment on above: Unable to obtain acc urate result due to color interference. Bilirubin.total [Mass/volume ] in Serum or PlasmaOrdered By: Aries Chavez on 07-31-2023 Bilirubin [Mass/Vol] 0.4 mg/dL Normal 0.3-1.0 [facility] Comment on above: Performed By: #### C BC, CMP, KRISTI, FE and TIBC ####[address] Calcium [Mass/volume] in Ser um or PlasmaOrdered By: Aries Chavez on 07-31-2023 Calcium [Mass/Vol] 9.6 mg/dL Normal 8.6-10.3 [facility] Comment on above: Performed By: #### C BC, CMP, KRISTI, FE and TIBC ####[address] Carbon dioxide, total [Moles /volume] in Serum or PlasmaOrdered By: Aires Chavez on 07-31-2023 CO2 [Moles/Vol] 24.3 mmol/L Normal 21.0-31.0 [facility] Comment on above: Performed By: #### C BC, CMP, KRISTI, FE and TIBC ####[address] Chloride [Moles/volume] in S leena or PlasmaOrdered By: Aries Chavez on 07-31-2023 Chloride [Moles/Vol] 94 mmol/L Low 98-107 [facility] Comment on above: Performed By: #### C BC, CMP, KRISTI, FE and TIBC ####[address] Complete Blood Count Auto Di ffon 07-31-2023 Mean Corpuscular HGB Conc 32.3 g/dL Normal 32.0-35.0 [facility] Comment on above: Performed By: #### C BC, CMP, KRISTI, FE and TIBC ####[address] NRBC% 0.1 /100{WBC} Normal 0-0.5 [facility] Comment on above: Performed By: #### C BC, CMP, KRISTI, FE and TIBC ####[address] Comprehensive Metabolic Pane onesimo 07-31-2023 Albumin [Mass/Vol] 3.7 g/dL Normal 3.5-5.7 [facility] Comment on above: Performed By: #### C BC, CMP, KRISTI, FE and TIBC ####[address] Creatinine Clr Calc Pharmacy 53.24 Normal [facility] Comment on above: Performed By: #### C BC, CMP, KRISTI, FE and TIBC ####[address] GFR/1.73 sq M.predicted MDRD (S/P/Bld) [Vol rate/Area] mL/min/{1.73_m2} Normal [facility] Comment on above: Performed By: #### C BC, CMP, KRISTI, FE and TIBC ####[address] Creatinine [Mass/volume] in Serum or PlasmaOrdered By: Aries Chavez on 07-31-2023 Creatinine [Mass/Vol] 0.91 mg/dL Normal 0.60-1.20 [facility] Comment on above: Performed By: #### C BC, CMP, KRISTI, FE and TIBC ####[address] Dipstick and Microscopicon 1 Appearance (U) Turbid Critically abnormal Clear [facility] Comment on above: Order Comment: Name Collection Type:: Voided Performed By: #### A ORQUIDEA CANTU ####[place] [id number] [facility] Bacteria,Urine None Seen Normal None Seen [facility] Comment on above: Order Comment: Name Collection Type:: Voided Performed By: #### A TISHA CANTUU ####[address] [address] [facility] Bilirubin,Urine Normal Negative [facility] Comment on above: Order Comment: Name Collection Type:: Voided Result Comment: Unab le to obtain accurate result due to color interference. Performed By: #### A DDONUAPLUS, CUU ####[address] [address] [facility] Glucose Ql (U) Normal Normal [facility] Comment on above: Order Comment: Name Collection Type:: Voided Result Comment: Unab le to obtain accurate result due to color interference. Performed By: #### A DDONUAPLUS, CUU ####[place] [id number] [facility] Hyaline Casts,Urine None Seen Normal 0-8 [facility] Comment on above: Order Comment: Name Collection Type:: Voided Result Comment: PERF ORMED BY:[address] [place], [place] [id number] MEDICAL DIRECTORSTEFANO HOLT M.D. Performed By: #### A DDONUAPLUS, CUU ####[place] [id number] [facility] Ketones Ql (U) Normal Negative [facility] Comment on above: Order Comment: Name Collection Type:: Voided Result Comment: Unab le to obtain accurate result due to color interference. Performed By: #### A DDONUAPLUS, CUU ####[place] [id number] [facility] Leukocyte esterase Test strip Ql (U) Normal Negative [facility] Comment on above: Order Comment: Name Collection Type:: Voided Result Comment: Unab le to obtain accurate result due to color interference. Performed By: #### A DDONUAPLUS, CUU ####[place] [id number] [facility] Nitrite,Urine Normal Negative [facility] Comment on above: Order Comment: Name Collection Type:: Voided Result Comment: Unab le to obtain accurate result due to color interference. Performed By: #### A DDONUAPLUS, CUU ####[address] [address] [facility] Occult Blood,Urine Normal Negative [facility] Comment on above: Order Comment: Name Collection Type:: Voided Result Comment: Unab le to obtain accurate result due to color interference. Performed By: #### A DDONUAPLUS, CUU ####[address] [address] [facility] pH,Urine Normal 5.0-9.0 [facility] Comment on above: Order Comment: Name Collection Type:: Voided Result Comment: Unab le to obtain accurate result due to color interference. Performed By: #### A DDONUAPLUS, CUU ####[place] [id number] [facility] Protein,Urine Normal Negative [facility] Comment on above: Order Comment: Name Collection Type:: Voided Result Comment: Unab le to obtain accurate result due to color interference. Performed By: #### A DDONUAPLUS, CUU ####[place] [id number] [facility] RBC,Urine 5-9 High 0-4 [facility] Comment on above: Order Comment: Name Collection Type:: Voided Performed By: #### A DDONUAPLUS, CUU ####[address] [address] [facility] Specificy [place],Urine 1.015 Normal 1.001-1.03 0 [facility] Comment on above: Order Comment: Name Collection Type:: Voided Performed By: #### A DDONUAPLUS, CUU ####[address] [address] [facility] Squamous Epithelial Cell,Urine 0-1 Normal 0-2 [facility] Comment on above: Order Comment: Name Collection Type:: Voided Performed By: #### A DDONUAPLUS, CUU ####[address] [address] [facility] Urobilinogen,Urine Normal Normal [facility] Comment on above: Order Comment: Name Collection Type:: Voided Result Comment: Unab le to obtain accurate result due to color interference. Performed By: #### A DDONUAZIGGY, CUU ####[place] [id number] [facility] WBC,Urine None Seen Normal 0-4 [facility] Comment on above: Order Comment: Name Collection Type:: Voided Performed By: #### A DDONUAPLUS, CUU ####[place] [id number] [facility] Erythrocyte distribution wid th [Ratio] by Automated countOrdered By: Aries Chavez on 07-31-2023 Erythrocyte distribution width (RBC) [Ratio] 15.4 % High 11.9-15.3 [facility] Comment on above: Performed By: #### C BC, CMP, KRISTI, FE and TIBC ####[place] [id number] [facility] Erythrocytes [#/volume] in B lood by Automated countOrdered By: Aries Chavez on 07-31-2023 RBC (Bld) [#/Vol] 3.18 10*6/uL Low 3.60-5.00 [facility] Comment on above: Performed By: #### C BC, CMP, KRISTI, FE and TIBC ####[place] [id number] [facility] Ferritin [Mass/volume] in Se rum or PlasmaOrdered By: Aries Chavez on 07-31-2023 Ferritin [Mass/Vol] 342.0 ng/mL High 11.0-306.8 [facility] Comment on above: Result Comment: PERF ORMED BY:[address] [place], [place] [phone] MEDICAL NAHID HOLT M.D. Performed By: #### C BC, CMP, KRISTI, FE and TIBC ####[place] [id number] [facility] Glucose [Mass/volume] in Ser um or PlasmaOrdered By: Aries Chavez on 07-31-2023 Glucose [Mass/Vol] 105 mg/dL High 70-100 [facility] Comment on above: ADA recommended refe rence rangeRandom Glucose Reference Range is dependent on time and content of last meal. Glucose of more than 200 mg/dL in a nonstressed, ambulatory subject supports the diagnosis of Diabetes Mellitus. Result Comment: [place] om Glucose Reference Range is dependent on time and content of last meal. Glucose of more than 200 mg/dL in a nonstressed, ambulatory subject supports the diagnosis of Diabetes Mellitus. ADA recommended reference range Performed By: #### C BC, CMP, KRISTI, FE and TIBC ####[address] Hematocrit [Volume Fraction] of Blood by Automated countOrdered By: Aries Chavez on 07-31-2023 Hematocrit (Bld) [Volume fraction] 22.5 % Low 34.0-46.4 [facility] Comment on above: Performed By: #### C BC, CMP, KRISTI, FE and TIBC ####[address] Hemoglobin [Mass/volume] in BloodOrdered By: Aries Chavez on 07-31-2023 Hemoglobin (Bld) [Mass/Vol] 7.3 g/dL Low 11.8-15.4 [facility] Comment on above: Performed By: #### C BC, CMP, KRISTI, FE and TIBC ####[address] Iron [Mass/volume] in Serum or PlasmaOrdered By: Aries Chavez on 07-31-2023 Iron [Mass/Vol] 24 ug/dL Low 50-212 [facility] Comment on above: Performed By: #### C BC, CMP, KRISTI, FE and TIBC ####[place] [id number] [facility] Iron and TIBC Profileon 07-04 % Iron Saturation 7.9 % Low 20-50 [facility] Comment on above: Performed By: #### C BC, CMP, KRISTI, FE and TIBC ####[place] [phone] [facility] Total Iron Binding Capacity 304 ug/dL Normal 255-450 [facility] Comment on above: Performed By: #### C BC, CMP, KRISTI, FE and TIBC ####[facility] [id number] Iron binding capacity [Mass/ volume] in Serum or PlasmaOrdered By: Aries Chavez on 07-31-2023 Iron binding capacity [Mass/Vol] 304 ug/dL 255-450 [facility] Iron saturation [Mass Fracti on] in Serum or PlasmaOrdered By: Aries Chavez on 07-31-2023 Iron saturation [Mass fraction] 7.9 % 20-50 [facility] Ketones Auto test strip (U) [Mass/Vol]Ordered By: Aries Chavez on 07-31-2023 Ketones (U) [Mass/Vol] See comment Negative [facility] Comment on above: Unable to obtain acc urate result due to color interference. Laboratory - UrinalysisOrder ed By: Aries Chavez on 07-31-2023 Hyaline casts LM Ql (Urine sed) None seen [LPF] 0-8 [facility] Leukocytes [#/volume] correc gabriel for nucleated erythrocytes in Blood by Automated counOrdered By: Aries Chavez on 07-31-2023 WBC corrected for nucl RBC Auto (Bld) [#/Vol] 8.2 10*3/uL 3.8-11.6 [facility] Leukocytes [#/volume] in Blo od by Automated countOrdered By: Aries Chavez on 07-31-2023 WBC (Bld) [#/Vol] 8.2 10*3/uL Normal 3.8-11.6 [facility] Comment on above: Performed By: #### C BC, CMP, KRISTI, FE and TIBC ####[facility] [id number] Lymphocytes [#/volume] in Bl ood by Automated countOrdered By: Aries Chavez on 07-31-2023 Lymphocytes (Bld) [#/Vol] 1.8 10*3/uL Normal 1.00-4.8 [facility] Comment on above: Performed By: #### C BC, CMP, KRISTI, FE and TIBC ####[address] Lymphocytes/100 leukocytes i n Blood by Automated countOrdered By: Aries Chavez on 07-31-2023 Lymphocytes/100 WBC (Bld) 22.3 % Normal . [facility] Comment on above: Performed By: #### C BC, CMP, KRISTI, FE and TIBC ####[address] MCH [Entitic mass] by Automa gabriel countOrdered By: Aries Chavez on 07-31-2023 MCH (RBC) [Entitic mass] 22.8 pg Low 24.7-34.3 [facility] Comment on above: Performed By: #### C BC, CMP, KRISTI, FE and TIBC ####[address] MCHC Auto (RBC) [Mass/Vol]Or dered By: Aries Chavez on 07-31-2023 MCHC (RBC) [Mass/Vol] 32.3 g/dL 32.0-35.0 [facility] MCV [Entitic volume] by Auto mated countOrdered By: Aries Chavez on 07-31-2023 MCV (RBC) [Entitic vol] 70.8 fL Low 80-100 [facility] Comment on above: Performed By: #### C BC, CMP, KRISTI, FE and TIBC ####[address] Neutrophils [#/volume] in Bl ood by Automated countOrdered By: Aries Chavez on 07-31-2023 Neutrophils (Bld) [#/Vol] 5.4 10*3/uL Normal 1.8-7.7 [facility] Comment on above: Performed By: #### C BC, CMP, KRISTI, FE and TIBC ####[address] Nitrite Test strip Ql (U)Ord ered By: Aries Chavez on 07-31-2023 Nitrite Ql (U) See comment Negative [facility] Comment on above: Unable to obtain acc urate result due to color interference. No Panel InformationOrdered By: Aries Chavez on 07-31-2023 Estimated GFR (CKD-EPI) > 60.0 mL/Min [facility] Creatinine Clearance (Chem 53.24 [facility] Nucleated erythrocytes [Pres ence] in Blood by Automated countOrdered By: Aries Chavez on 07-31-2023 Nucleated RBC Auto Ql (Bld) 0.1 /100{WBC} 0-0.5 [facility] Platelet mean volume [Entiti c volume] in Blood by Automated countOrdered By: Aries Chavez on 07-31-2023 Platelet mean volume (Bld) [Entitic vol] 7.7 fL Normal 6.3-10.7 [facility] Comment on above: Performed By: #### C BC, CMP, KRISTI, FE and TIBC ####[address] Platelets [#/volume] in Bloo d by Automated countOrdered By: Aries Chavez on 07-31-2023 Platelets (Bld) [#/Vol] 487 10*3/uL High 150-450 [facility] Comment on above: Performed By: #### C BC, CMP, KRISTI, FE and TIBC ####[address] [address] [facility] Potassium [Moles/volume] in Serum or PlasmaOrdered By: Aries Chavez on 07-31-2023 Potassium [Moles/Vol] 5.3 mmol/L High 3.5-5.1 [facility] Comment on above: Performed By: #### C BC, CMP, KRISTI, FE and TIBC ####[place] [id number] [facility] Protein Auto test strip (U) [Mass/Vol]Ordered By: Aries Chavez on 07-31-2023 Protein (U) [Mass/Vol] See comment Negative [facility] Comment on above: Unable to obtain acc urate result due to color interference. Protein [Mass/volume] in Ser um or PlasmaOrdered By: Aries Chavez on 07-31-2023 Protein [Mass/Vol] 8.3 g/dL Normal 6.4-8.9 [facility] Comment on above: Performed By: #### C BC, CMP, KRISTI, FE and TIBC ####[address] Serum globulin measurement b y calculation (mass/volume)Ordered By: Aries Chavez on 07-31-2023 Globulin (S) [Mass/Vol] 4.6 g/dL [facility] Comment on above: Performed By: #### C BC, CMP, KRISTI, FE and TIBC ####[address] Serum or plasma albumin/glob ulin mass ratioOrdered By: Aries Chavez on 07-31-2023 Albumin/Globulin [Mass ratio] 0.8 {ratio} [facility] Comment on above: Performed By: #### C BC, CMP, KRISTI, FE and TIBC ####[address] Serum or plasma anion gap de terminationOrdered By: Aries Chavez on 07-31-2023 Anion gap [Moles/Vol] 14.0 mmol/L Normal 6.0-15.0 [facility] Comment on above: Performed By: #### C BC, CMP, KRISTI, FE and TIBC ####[address] Sodium [Moles/volume] in Ser um or PlasmaOrdered By: Aries Chavez on 07-31-2023 Sodium [Moles/Vol] 127 mmol/L Low 136-145 [facility] Comment on above: Performed By: #### C BC, CMP, KRISTI, FE and TIBC ####[address] Specific gravity Auto test s trip (U) [Rel density]Ordered By: Aries Chavez on 10-30-2023 Specific gravity (U) [Rel density] 1.015 1.001-1.03 0 [facility] Squamous epithelial cells de tection in urine sediment by light microscopyOrdered By: Aries Chavez on 07-31-2023 Epithelial cells.squamous LM Ql (Urine sed) 0-1 [HPF] 0-2 [facility] Transferrin [Mass/volume] in Serum or PlasmaOrdered By: Aries Chavez on 07-31-2023 Transferrin [Mass/Vol] 217 mg/dL Normal 203-362 [facility] Comment on above: Performed By: #### C BC, CMP, KRISTI, FE and TIBC ####[place] [id number] [address] Urea nitrogen [Mass/volume] in Serum or PlasmaOrdered By: Aries Chavez on 07-31-2023 Urea nitrogen [Mass/Vol] 15 mg/dL Normal 7-25 [facility] Comment on above: Performed By: #### C BC, CMP, KRISTI, FE and TIBC ####[address] Urine Cultureon 07-31-2023 Bacteria identified Cx Nom (U) Normal [facility] Comment on above: Performed By: #### A DDONUAZIGGY, CUU ####[address] Urine bacteria detection by automated methodOrdered By: Aries Chavez on 07-31-2023 Bacteria Auto Ql (U) None seen None Seen [facility] Urine clarity by refractomet ry automatedOrdered By: Aries Chavez on 07-31-2023 Clarity Refractometry automated (U) Turbid Clear [facility] Urine culture routineOrdered By: Aries Chavez on 07-31-2023 Bacteria identified Cx Nom (U) 2 Days [facility] Bacteria identified Cx Nom (U) 2 Days [facility] Urine glucose measurement by automated test strip (mass/volume)Ordered By: Aries Chavez on 07-31-2023 Glucose Auto test strip (U) [Mass/Vol] See comment Normal [facility] Comment on above: Unable to obtain acc urate result due to color interference. Urine hemoglobin detection b y automated test stripOrdered By: Aries Chavez on 07-31-2023 Hemoglobin Auto test strip Ql (U) See comment Negative [facility] Comment on above: Unable to obtain acc urate result due to color interference. Urine leukocyte esterase det ection by automated test stripOrdered By: Aries Chavez on 07-31-2023 Leukocyte esterase Auto test strip Ql (U) See comment Negative [facility] Comment on above: Unable to obtain acc urate result due to color interference. Urobilinogen Auto test strip (U) [Mass/Vol]Ordered By: Aries Chavez on 07-31-2023 Urobilinogen (U) [Mass/Vol] See comment Normal [facility] Comment on above: Unable to obtain acc urate result due to color interference. pH Auto test strip (U)Ordere d By: Aries Chavez on 07-31-2023 pH (U) See comment 5.0-9.0 [facility] Comment on above: Unable to obtain acc urate result due to color interference. Office Visiton 07-26-2023 Follow-up visit [id number] Perla Ibarra 1955 F Date Provider Department Center 07/26/2023 [facility] FLORES [facility] [place] Family History Problem Relation Age of Onset Tuberculosis Mother Heart attack Brother Heart failure Maternal Grandmother Heart attack Maternal Grandfather Family Status - Relation Status Age at Mother Brother Maternal Grandmother Maternal Grandfather Level of Service:69024 DE OFFICE/OUTPATIENT ESTABLISHED MOD MDM 30-39 MIN Reason for Visit and Comments: renal mass [Other] - Pt c/o pelvic pain and gross hematuria Normal [facility] PROF CHEM 8 (BAS METB)on Anion gap [Moles/Vol] 13.5 mmol/L Normal e [facility] Comment on above: Performed By: #### N A #### [facility] [address] [place] [address] [address] Allen Smith Calcium [Mass/Vol] 9.6 mg/dL Normal 8.5-10.1 [facility] Comment on above: Performed By: #### N A #### [facility] [address] [place] [address] [address] Allen Smith Chloride [Moles/Vol] 95 mmol/L Critically low 98-107 [facility] Comment on above: Performed By: #### N A #### [facility] [address] [place] [address] [address] Allen Smith CO2 [Moles/Vol] 27.1 mmol/L Normal 21.0-32.0 [facility] Comment on above: Performed By: #### N A #### [facility] [address] [place] [address] Dr. Allen Smith Creatinine [Mass/Vol] 0.93 mg/dL Normal 0.55-1.02 [facility] Comment on above: Performed By: #### N A #### [facility] [address] [place] [address] Dr. Allen Smith EGFR-AF GUAMANIAN >60 Normal >=60 [facility] Comment on above: Performed By: #### N A #### [facility] [address] [place] [address] Dr. Allen Smith EGFR-NON AF GUAMANIAN 60 mL/min/1.73m2 Normal >=60 [facility] Comment on above: Performed By: #### N A #### [facility] [address] [place] [address] Dr. Allen Smith Glucose [Mass/Vol] 123 mg/dL Critically high 74-106 T [facility] Comment on above: Performed By: #### N A #### [facility] [address] [place] [address] Dr. Allen Smith Potassium [Moles/Vol] 4.6 mmol/L Normal 3.5-5.1 [facility] Comment on above: Performed By: #### N A #### [facility] [address] [place] [address] Dr. Allen Smith Sodium [Moles/Vol] 131 mmol/L Critically low 136-145 Th [facility] Comment on above: Performed By: #### N A #### [facility] [address] [place] [address] Dr. Allen Smith Urea nitrogen [Mass/Vol] 8.0 mg/dL Normal 7.0-18.0 [facility] Comment on above: Performed By: #### N A #### [facility] [address] [place] [address] Dr. Allen Smith Urea nitrogen/Creatinine [Mass ratio] 8.6 mg/mg Normal [facility] Comment on above: Performed By: #### N A #### [facility] [address] [place] [address] Dr. Allen Smith BNPon 02-07-2023 Natriuretic peptide B (Bld) [Mass/Vol] 1572.0 pg/mL Critically high <=900.0 [facility] Comment on above: Performed By: #### N A #### [facility] [address] [place] [address] Dr. Allen Smith CBC AUTO DIFFon 02-07-2023 BASO # 0.1 103/ul Normal 0.0-0.1 [facility] Comment on above: Performed By: #### C BC #### [facility] [address] [place] [address] Dr. Allen Smith Basophils/100 WBC (Bld) 0.7 % Normal 0.2-2.0 [facility] Comment on above: Performed By: #### C BC #### [facility] [address] [place] [address] Dr. Allen Smith EO # 0.2 103/ul Normal 0.0-0.7 [facility] Comment on above: Performed By: #### C BC #### [facility] [address] [place] [address] Dr. Allen Smith Eosinophils/100 WBC (Bld) 2.8 % Normal 0.9-7.0 [facility] Comment on above: Performed By: #### C BC #### [facility] [address] [place] [address] Dr. Allen Smith Erythrocyte distribution width (RBC) [Ratio] 15.2 % Critically high 11.0-15.0 [facility] Comment on above: Performed By: #### C BC #### [facility] [address] [place] [address] Dr. Allne Smith Hematocrit (Bld) [Volume fraction] 29.9 % Critically low 36.0-48.0 [facility] Comment on above: Performed By: #### C BC #### [facility] [address] [place] [address] Dr. Allen Smith Hemoglobin (Bld) [Mass/Vol] 9.4 g/dL Critically low 12.0-16.0 [facility] Comment on above: Performed By: #### C BC #### [facility] [address] [place] [address] Dr. Allen Smith IG # 0.03 10e3/ul Normal 0.00-0.03 [facility] Comment on above: Performed By: #### C BC #### [facility] [address] [place] [address] Dr. Allen Smith IG % 0.4 % Normal 0.0-0.5 [facility] Comment on above: Performed By: #### C BC #### [facility] [address] [place] [address] Dr. Allen Smith LYMPH # 1.5 103/ul Normal 1.2-3.8 [facility] Comment on above: Performed By: #### C BC #### [facility] [address] [place] [address] Dr. Allen Smith Lymphocytes/100 WBC (Bld) 18.0 % Critically low 20.5-60.0 [facility] Comment on above: Performed By: #### C BC #### [facility] [address] [place] [address] Dr. Allen Smith MANUAL DIFF REQ NO Normal [facility] Comment on above: Performed By: #### C BC #### [facility] [address] [place] [address] Dr. Allen Smith MCH (RBC) [Entitic mass] 24.7 pg Critically low 26.7-34.0 [facility] Comment on above: Performed By: #### C BC #### [facility] [address] [place] [address] Dr. Allen Smith MCHC (RBC) [Mass/Vol] 31.4 g/dL Normal 29.9-35.2 [facility] Comment on above: Performed By: #### C BC #### [facility] [address] [place] [address] Dr. Allen Smith MCV (RBC) [Entitic vol] 78.7 fL Critically low 81.0-99.0 [facility] Comment on above: Performed By: #### C BC #### [facility] [address] [place] [address] Dr. Allen Smith MONO # 0.8 103/ul Normal 0.3-0.8 [facility] Comment on above: Performed By: #### C BC #### [facility] [address] [place] [address] Dr. Allen Smith Monocytes/100 WBC (Bld) 9.5 % Normal 1.7-12.0 [facility] Comment on above: Performed By: #### C BC #### [facility] [address] [place] [address] Dr. Allen Smith NEUT # 5.7 103/ul Normal 1.4-6.5 [facility] Comment on above: Performed By: #### C BC #### [facility] [address] [place] [address] Dr. Allen Smith Neutrophils/100 WBC (Bld) 68.6 % Normal 43.0-75.0 [facility] Comment on above: Performed By: #### C BC #### [facility] [address] [place] [address] Dr. Allen Smith Platelet mean volume (Bld) [Entitic vol] 10.2 fL Normal 9.5-13.5 [facility] Comment on above: Performed By: #### C BC #### [facility] [address] [place] [address] Dr. Allen Smith PLT 324 103/ul Normal 150-450 [facility] Comment on above: Performed By: #### C BC #### [facility] [address] [place] [address] Dr. Allen Smith RBC 3.80 106/ul Critically low 4.20-5.40 [facility] Comment on above: Performed By: #### C BC #### [facility] [address] [place] [address] Dr. Allen Smith WBC 8.3 103/ul Normal 4.0-11.0 [facility] Comment on above: Performed By: #### C BC #### [facility] [address] [place] [address] Dr. Allen Smith PROF CHEM 8 (BAS METB)on Anion gap [Moles/Vol] 7.5 mmol/L Normal [facility] Comment on above: Performed By: #### N A #### [facility] [address] [place] [address] Dr. Allen Smith Calcium [Mass/Vol] 9.1 mg/dL Normal 8.5-10.1 [facility] Comment on above: Performed By: #### N A #### [facility] [address] [place] [address] Dr. Allen Smith Chloride [Moles/Vol] 97 mmol/L Critically low 98-107 [facility] Comment on above: Performed By: #### N A #### [facility] [address] [place] [address] Dr. Allen Smith CO2 [Moles/Vol] 30.9 mmol/L Normal 21.0-32.0 [facility] Comment on above: Performed By: #### N A #### [facility] [address] [place] [address] Dr. Allen Smith Creatinine [Mass/Vol] 0.84 mg/dL Normal 0.55-1.02 [facility] Comment on above: Performed By: #### N A #### [facility] [address] [place] [address] Dr. Allen Smith EGFR-AF GUAMANIAN >60 Normal >=60 [facility] Comment on above: Performed By: #### N A #### [facility] [address] [place] [address] Dr. Allen Smith EGFR-NON AF GUAMANIAN >60 Normal >=60 [facility] Comment on above: Performed By: #### N A #### [facility] [address] [place] [address] Dr. Allen Smith Glucose [Mass/Vol] 111 mg/dL Critically high 74-106 T [facility] Comment on above: Performed By: #### N A #### [facility] [address] [address] [address] Allen Smith Potassium [Moles/Vol] 4.4 mmol/L Normal 3.5-5.1 [facility] Comment on above: Performed By: #### N A #### [facility] [address] [place] [address] Dr. Allen Smith Sodium [Moles/Vol] 131 mmol/L Critically low 136-145 Th e [facility] Comment on above: Performed By: #### N A #### [facility] [address] [place] [address] Dr. Allen Smith Urea nitrogen [Mass/Vol] 8.0 mg/dL Normal 7.0-18.0 [facility] Comment on above: Performed By: #### N A #### [facility] [address] [place] [address] Dr. Allen Smith Urea nitrogen/Creatinine [Mass ratio] 9.5 mg/mg Normal [facility] Comment on above: Performed By: #### N A #### [facility] [address] [place] [address] Dr. Allen Smith BLOOD GASES BTYon 01-25-2023 02 MODE VENTILATOR Normal [facility] Comment on above: Performed By: #### A BG #### [facility] [address] [place] [address] Dr. Allen Smith ALLENS TEST Positive Normal [facility] Comment on above: Performed By: #### A BG #### [facility] [address] [place] [address] Dr. Allen Smith Base excess Calc (Bld) [Moles/Vol] -2.5000 mmol/L Critically low -2.0-2.0 [facility] Comment on above: Performed By: #### A BG #### [facility] [address] [address] [address] Allen Smith BIPAP PRESSURE [facility] Comment on above: Performed By: #### A BG #### [facility] [address] [address] [address] CP[address] [facility] Comment on above: Performed By: #### A BG #### [facility] [address] [address] [address] Allen Smith FIO2 40.00 % [facility] Comment on above: Performed By: #### A BG #### [facility] [address] [place] [address] Dr. Allen Smith HCO3 (Bld) [Moles/Vol] 24.1 mmol/L Normal 22.0-26.0 [facility] Comment on above: Performed By: #### A BG #### [facility] [address] [place] [address] Dr. Allen Smith LPM [facility] Comment on above: Performed By: #### A BG #### [facility] [address] [place] [address] Dr. Allen Smith MINUTE VOLUME Normal [facility] Comment on above: Performed By: #### A BG #### [facility] [address] [place] [address] Dr. Allen Smith Oxygen (Bld) [Partial pressure] 85.1 mm[Hg] Normal 80.0-100.0 [facility] Comment on above: Performed By: #### A BG #### [facility] [address] [place] [address] Dr. Allen Smith Oxygen saturation in Blood 96.2 % Normal 95.0-100.0 [facility] Comment on above: Performed By: #### A BG #### [facility] [address] [place] [address] Dr. Allen Smith PCO2 50.1 mmHg Critically high 35.0-45.0 [facility] Comment on above: Performed By: #### A BG #### [facility] [address] [place] [address] Dr. Allen Smith PEEP [address] [facility] Comment on above: Performed By: #### A BG #### [facility] [address] [place] [address] Dr. Allen Smith pH (Bld) 7.290 [pH] Critically low 7.350-7.45 0 [facility] Comment on above: Performed By: #### A BG #### [facility] [address] [place] [address] Dr. Allen Smith PIP [facility] Comment on above: Performed By: #### A BG #### [facility] [address] [place] [address] Dr. Allen Smith PS [facility] Comment on above: Performed By: #### A BG #### [facility] [address] [place] [address] Dr. Allen Smith PUNCTURE SITE RR [facility] Comment on above: Performed By: #### A BG #### [facility] [address] [place] [address] Dr. Allen Smith RATE [address] [facility] Comment on above: Performed By: #### A BG #### [facility] [address] [place] [address] Dr. Allen Smith VENT MODE ac [facility] Comment on above: Performed By: #### A BG #### [facility] [address] [place] [address] Dr. Allen Smith [place] [address] [facility] Comment on above: Result Comment: Prev iously reported as: 400 On 01/25/2023 17:03 By GC1 Performed By: #### A BG #### [facility] [address] [place] [address] Dr. Allen Smith [address] [facility] Comment on above: Performed By: #### T SH #### [facility] [address] [place] [address] Dr. Allen Smith ALLENS TEST Positive [facility] Comment on above: Performed By: #### T SH #### [facility] [address] [place] [address] Dr. Allen Smith Base excess Calc (Bld) [Moles/Vol] -2.9000 mmol/L Critically low -2.0-2.0 [facility] Comment on above: Performed By: #### T SH #### [facility] [address] [place] [address] Dr. Allen Smith BIPAP PRESSURE [facility] Comment on above: Performed By: #### T SH #### [facility] [address] [place] [address] Dr. Allen Smith CPAP [facility] Comment on above: Performed By: #### T SH #### [facility] [address] [place] [address] Dr. Allen Smith FIO2 [facility] Comment on above: Performed By: #### T SH #### [facility] [address] [place] [address] Dr. Allen Smith HCO3 (Bld) [Moles/Vol] 24.2 mmol/L Normal 22.0-26.0 [facility] Comment on above: Performed By: #### T SH #### [facility] [address] [place] [address] Dr. Allen Smith LPM 2 [facility] Comment on above: Performed By: #### T SH #### [facility] [address] [place] [address] Dr. Allen Smith MINUTE VOLUME [facility] Comment on above: Performed By: #### T SH #### [facility] [address] [place] [address] Dr. Allen Smith Oxygen (Bld) [Partial pressure] 70.6 mm[Hg] Critically low 80.0-100.0 [facility] Comment on above: Performed By: #### T SH #### [facility] [address] [place] [address] Dr. Allen Smith Oxygen saturation in Blood 91.5 % Critically low 95.0-100.0 [facility] Comment on above: Performed By: #### T SH #### [facility] [address] [place] [address] Dr. Allen Smith PCO2 54.7 mmHg Critically high 35.0-45.0 [facility] Comment on above: Performed By: #### T SH #### [facility] [address] [address] [address] [facility] Comment on above: Performed By: #### T SH #### [facility] [address] [address] [address] Allen Smith pH (Bld) 7.255 [pH] Critically low 7.350-7.45 0 [facility] Comment on above: Performed By: #### T SH #### [facility] [address] [place] [address] Dr. Allen Smith [facility] Comment on above: Performed By: #### T SH #### [facility] [address] [place] [address] Dr. Allen Smith [facility] Comment on above: Performed By: #### T SH #### [facility] [address] [place] [address] Dr. Allen Smith PUNCTURE SITE RR [facility] Comment on above: Performed By: #### T SH #### [facility] [address] [place] [address] Dr. Allen Smith RATE [facility] Comment on above: Performed By: #### T SH #### [facility] [address] [place] [address] Dr. Allen Smith VENT MODE [facility] Comment on above: Performed By: #### T SH #### [facility] [address] [place] [address] Dr. Allen Smith [facility] Comment on above: Performed By: #### T SH #### [facility] [address] [place] [address] Dr. Allen Smith BNPon 01-25-2023 Natriuretic peptide B (Bld) [Mass/Vol] 66515.0 pg/mL Critically high <=900.0 [facility] Comment on above: Performed By: #### B LEAD ESTHETICIAN, CMP #### [facility] [address] [place] [address] Dr. Allen Smith CARDIAC LI 3-6on 3 CK [Catalytic activity/Vol] 346 U/L Critically high 26-192 [facility] Comment on above: Performed By: #### T SH #### [facility] [address] [place] [address] Dr. Allen Smith CK.MB [Mass/Vol] 15.70 ng/mL Critically high <=3.60 Th e [facility] Comment on above: Performed By: #### T SH #### [facility] [address] [place] [address] Dr. Allen Smith HSTROP 1206.7 pg/mL Critically high 4.0-51.3 [facility] Comment on above: Result Comment: CUT- OFF POINTS HAVE BEEN ESTABLISHED BASED ON THE FOURTH UNIVERSAL DEFINITIONS OF MYOCARDIAL INFARCTION. THE UPPER REFERENCE LIMIT (URL) OF TROPONIN, DEFINED THE 99TH PERCENTILE OF cTnI DISTRIBUTION IN A REFERENCE POPULATION, HAS BEEN CONFIRMED THE DECISION THRESHOLD FOR IN DIAGNOSIS. Performed By: #### T SH #### [facility] [address] [place] [address] Dr. Allen Smith CBC AUTO DIFFon 01-25-2023 BASO # 0.0 103/ul Normal 0.0-0.1 [facility] Comment on above: Performed By: #### T SH #### [facility] [address] [place] [address] Dr. Allen Smith Basophils/100 WBC (Bld) 0.1 % Critically low 0.2-2.0 [facility] Comment on above: Performed By: #### T SH #### [facility] [address] [place] [address] Dr. Allen Smith EO # 0.0 103/ul Normal 0.0-0.7 [facility] Comment on above: Performed By: #### T SH #### [facility] [address] [place] [address] Dr. Allen Smith Eosinophils/100 WBC (Bld) 0.0 % Critically low 0.9-7.0 [facility] Comment on above: Performed By: #### T SH #### [facility] [address] [place] [address] Dr. Allen Smith Erythrocyte distribution width (RBC) [Ratio] 13.4 % Normal 11.0-15.0 [facility] Comment on above: Performed By: #### T SH #### [facility] [address] [place] [address] Dr. Allen Smith Hematocrit (Bld) [Volume fraction] 30.2 % Critically low 36.0-48.0 [facility] Comment on above: Performed By: #### T SH #### [facility] [address] [place] [address] Dr. Allen Smith Hemoglobin (Bld) [Mass/Vol] 9.9 g/dL Critically low 12.0-16.0 [facility] Comment on above: Performed By: #### T SH #### [facility] [address] [place] [address] Dr. Allen Smith IG # 0.05 10e3/ul Critically high 0.00-0.03 [facility] Comment on above: Performed By: #### T SH #### [facility] [address] [place] [address] Dr. Allen Smith IG % 0.4 % Normal 0.0-0.5 [facility] Comment on above: Performed By: #### T SH #### [facility] [address] [place] [address] Dr. Allen Smith LYMPH # 0.3 103/ul Critically low 1.2-3.8 [facility] Comment on above: Performed By: #### T SH #### [facility] [address] [place] [address] Dr. Allen Smith Lymphocytes/100 WBC (Bld) 2.5 % Critically low 20.5-60.0 [facility] Comment on above: Performed By: #### T SH #### [facility] [address] [place] [address] Dr. Allen Smith MANUAL DIFF REQ NO Normal [facility] Comment on above: Performed By: #### T SH #### [facility] [address] [place] [address] Dr. Allen Smith MCH (RBC) [Entitic mass] 24.9 pg Critically low 26.7-34.0 [facility] Comment on above: Performed By: #### T SH #### [facility] [address] [place] [address] Dr. Allen Smith MCHC (RBC) [Mass/Vol] 32.8 g/dL Normal 29.9-35.2 [facility] Comment on above: Performed By: #### T SH #### [facility] [address] [place] [address] Dr. Allen Smith MCV (RBC) [Entitic vol] 76.1 fL Critically low 81.0-99.0 [facility] Comment on above: Performed By: #### T SH #### [facility] [address] [place] [address] Dr. Allen Smith MONO # 0.5 103/ul Normal 0.3-0.8 [facility] Comment on above: Performed By: #### T SH #### [facility] [address] [place] [address] Dr. Allen Smith Monocytes/100 WBC (Bld) 3.7 % Normal 1.7-12.0 [facility] Comment on above: Performed By: #### T SH #### [facility] [address] [place] [address] Dr. Allen Smith NEUT # 12.2 103/ul Critically high 1.4-6.5 [facility] Comment on above: Performed By: #### T SH #### [facility] [address] [place] [address] Dr. Allen Smith Neutrophils/100 WBC (Bld) 93.3 % Critically high 43.0-75.0 [facility] Comment on above: Performed By: #### T SH #### [facility] [address] [place] [address] Dr. Allen Smith Platelet mean volume (Bld) [Entitic vol] 10.3 fL Normal 9.5-13.5 [facility] Comment on above: Performed By: #### T SH #### [facility] [address] [place] [address] Dr. Allen Smith PLT 263 103/ul Normal 150-450 [facility] Comment on above: Performed By: #### T SH #### [facility] [address] [place] [address] Dr. Allen Smith RBC 3.97 106/ul Critically low 4.20-5.40 [facility] Comment on above: Performed By: #### T SH #### [facility] [address] [place] [address] Dr. Allen Smith WBC 13.0 103/ul Critically high 4.0-11.0 [facility] Comment on above: Performed By: #### T SH #### [facility] [address] [place] [address] Dr. Allen Smith BASO # 0.0 103/ul Normal 0.0-0.1 [facility] Comment on above: Performed By: #### N A #### [facility] [address] [place] [address] Dr. Allen Smith Basophils/100 WBC (Bld) 0.1 % Critically low 0.2-2.0 [facility] Comment on above: Performed By: #### N A #### [facility] [address] [place] [address] Dr. Allen Smith EO # 0.0 103/ul Normal 0.0-0.7 [facility] Comment on above: Performed By: #### N A #### [facility] [address] [place] [address] Dr. Allen Smith Eosinophils/100 WBC (Bld) 0.0 % Critically low 0.9-7.0 [facility] Comment on above: Performed By: #### N A #### [facility] [address] [place] [address] Dr. Allen Smith Erythrocyte distribution width (RBC) [Ratio] 13.4 % Normal 11.0-15.0 [facility] Comment on above: Performed By: #### N A #### [facility] [address] [place] [address] Dr. Allen Smith Hematocrit (Bld) [Volume fraction] 29.5 % Critically low 36.0-48.0 [facility] Comment on above: Performed By: #### N A #### [facility] [address] [place] [address] Dr. Allen Smith Hemoglobin (Bld) [Mass/Vol] 9.6 g/dL Critically low 12.0-16.0 [facility] Comment on above: Performed By: #### N A #### [facility] [address] [place] [address] Dr. Allen Smith IG # 0.04 10e3/ul Critically high 0.00-0.03 [facility] Comment on above: Performed By: #### N A #### [facility] [address] [place] [address] Dr. Allen Smith IG % 0.4 % Normal 0.0-0.5 [facility] Comment on above: Performed By: #### N A #### [facility] [address] [place] [address] Dr. Allen Smith LYMPH # 0.4 103/ul Critically low 1.2-3.8 [facility] Comment on above: Performed By: #### N A #### [facility] [address] [place] [address] Dr. Allen Smith Lymphocytes/100 WBC (Bld) 3.5 % Critically low 20.5-60.0 [facility] Comment on above: Performed By: #### N A #### [facility] [address] [place] [address] Dr. Allen Smith MANUAL DIFF REQ NO Normal [facility] Comment on above: Performed By: #### N A #### [facility] [address] [place] [address] Dr. Allen Smith MCH (RBC) [Entitic mass] 24.4 pg Critically low 26.7-34.0 [facility] Comment on above: Performed By: #### N A #### [facility] [address] [address] [address] Allen Smith MCHC (RBC) [Mass/Vol] 32.5 g/dL Normal 29.9-35.2 [facility] Comment on above: Performed By: #### N A #### [facility] [address] [address] [address] Allen Smith MCV (RBC) [Entitic vol] 74.9 fL Critically low 81.0-99.0 [facility] Comment on above: Performed By: #### N A #### [facility] [address] [place] [address] Dr. Allen Smith MONO # 0.4 103/ul Normal 0.3-0.8 [facility] Comment on above: Performed By: #### N A #### [facility] [address] [place] [address] Dr. Allen Smith Monocytes/100 WBC (Bld) 3.5 % Normal 1.7-12.0 [facility] Comment on above: Performed By: #### N A #### [facility] [address] [place] [address] Dr. Allen Smith NEUT # 10.2 103/ul Critically high 1.4-6.5 [facility] Comment on above: Performed By: #### N A #### [facility] [address] [place] [address] Dr. Allen Smith Neutrophils/100 WBC (Bld) 92.5 % Critically high 43.0-75.0 [facility] Comment on above: Performed By: #### N A #### [facility] [address] [place] [address] Dr. Allen Smith Platelet mean volume (Bld) [Entitic vol] 10.9 fL Normal 9.5-13.5 [facility] Comment on above: Performed By: #### N A #### [facility] [address] [place] [address] Dr. Allen Smith PLT 279 103/ul Normal 150-450 [facility] Comment on above: Performed By: #### N A #### [facility] [address] [address] [address] Allen Smith RBC 3.94 106/ul Critically low 4.20-5.40 [facility] Comment on above: Performed By: #### N A #### [facility] [id number] Allen Smith WBC 11.0 103/ul Normal 4.0-11.0 [facility] Comment on above: Performed By: #### N A #### [facility] [id number] Allen Smith ECHOCARDIO M/2D COMPLETEon 0 01-25-2023 ECHOCARDIO M/2D COMPLETE Patient: PERLA IBARRA Exam Date: 01/25/2023 : 1955 Gender:F Ordering : DOMINGA GODWIN . Admission #: [id number] Family : DR FREDDY BARRAZA M.D. Order #: [id number] CLICK HERE TO VIEW EXAM ECHOCARDIOGRAM REPORT [...] Henderson M.D. on 01/25/2023 at 15:39 Normal [facility] NAon 01-25-2023 Sodium [Moles/Vol] 128 mmol/L Critically low 136-145 [facility] Comment on above: Performed By: #### N A #### [facility] [address] [place] [address] Dr. Allen Smith Sodium [Moles/Vol] 122 mmol/L Critically low 136-145 [facility] Comment on above: Performed By: #### T SH #### [facility] [address] [place] [address] Dr. Allen Smith Sodium [Moles/Vol] 122 mmol/L Critically low 136-145 [facility] Comment on above: Performed By: #### N A #### [facility] [address] [place] [address] Dr. Allen Smith PROF 14(COMP METB)on 023 Albumin [Mass/Vol] 2.8 g/dL Critically low 3.4-5.0 [facility] Comment on above: Performed By: #### B LEAD ESTHETICIAN, CMP #### [facility] [address] [place] [address] Dr. Allen Smith Albumin/Globulin [Mass ratio] 0.5 {ratio} Normal [facility] Comment on above: Performed By: #### B LEAD ESTHETICIAN, CMP #### [facility] [address] [place] [address] Dr. Allen Smith ALP [Catalytic activity/Vol] 69 U/L Normal 46-116 [facility] Comment on above: Performed By: #### B LEAD ESTHETICIAN, CMP #### [facility] [address] [place] [address] Dr. Allen Smith ALT [Catalytic activity/Vol] 57 U/L Normal 14-59 [facility] Comment on above: Performed By: #### B LEAD ESTHETICIAN, CMP #### [facility] [address] [place] [address] Dr. Allen Smith Anion gap [Moles/Vol] 16.1 mmol/L Normal [facility] Comment on above: Performed By: #### B LEAD ESTHETICIAN, CMP #### [facility] [address] [address] [address] Allen Smith AST [Catalytic activity/Vol] 41 U/L Critically high 15-37 [facility] Comment on above: Performed By: #### B LEAD ESTHETICIAN, CMP #### [facility] [address] [place] [address] Dr. Allen Smith Bilirubin [Mass/Vol] 0.2 mg/dL Normal 0.2-1.0 [facility] Comment on above: Performed By: #### B LEAD ESTHETICIAN, CMP #### [facility] [address] [place] [address] Dr. Allen Smith Calcium [Mass/Vol] 8.7 mg/dL Normal 8.5-10.1 [facility] Comment on above: Performed By: #### B LEAD ESTHETICIAN, CMP #### [facility] [address] [place] [address] Dr. Allen Smith Chloride [Moles/Vol] 88 mmol/L Critically low 98-107 [facility] Comment on above: Performed By: #### B LEAD ESTHETICIAN, CMP #### [facility] [address] [place] [address] Dr. Allen Smith CO2 [Moles/Vol] 22.6 mmol/L Normal 21.0-32.0 [facility] Comment on above: Performed By: #### B LEAD ESTHETICIAN, CMP #### [facility] [address] [place] [address] Dr. Allen Smith Creatinine [Mass/Vol] 0.83 mg/dL Normal 0.55-1.02 [facility] Comment on above: Performed By: #### B LEAD ESTHETICIAN, CMP #### [facility] [address] [place] [address] Dr. Allen Smith EGFR-AF GUAMANIAN >60 Normal >=60 [facility] Comment on above: Performed By: #### B LEAD ESTHETICIAN, CMP #### [facility] [address] [place] [address] Dr. Allen Smith EGFR-NON AF GUAMANIAN >60 Normal >=60 [facility] Comment on above: Performed By: #### B LEAD ESTHETICIAN, CMP #### [facility] [address] [place] [address] Dr. Allen Smith Globulin (S) [Mass/Vol] 5.2 g/dL Normal [facility] Comment on above: Performed By: #### B LEAD ESTHETICIAN, CMP #### [facility] [address] [place] [address] Dr. Allen Smith Glucose [Mass/Vol] 120 mg/dL Critically high 74-106 [facility] Comment on above: Performed By: #### B LEAD ESTHETICIAN, CMP #### [facility] [address] [place] [address] Dr. Allen Smith Potassium [Moles/Vol] 3.7 mmol/L Normal 3.5-5.1 [facility] Comment on above: Performed By: #### B LEAD ESTHETICIAN, CMP #### [facility] [address] [place] [address] Dr. Allen Smith Protein [Mass/Vol] 8.0 g/dL Normal 6.4-8.2 [facility] Comment on above: Performed By: #### B LEAD ESTHETICIAN, CMP #### [facility] [address] [place] [address] Dr. Allen Smith Sodium [Moles/Vol] 122 mmol/L Critically low 136-145 [facility] Comment on above: Performed By: #### B LEAD ESTHETICIAN, CMP #### [facility] [address] [place] [address] Dr. Allen Smith Urea nitrogen [Mass/Vol] 13.0 mg/dL Normal 7.0-18.0 [facility] Comment on above: Performed By: #### B LEAD ESTHETICIAN, CMP #### [facility] [address] [place] [address] Dr. Allen Smith Urea nitrogen/Creatinine [Mass ratio] 15.7 mg/mg Normal [facility] Comment on above: Performed By: #### B LEAD ESTHETICIAN, CMP #### [facility] [address] [place] [address] Dr. Allen Smith PROF CHEM 8 (BAS METB)on Anion gap [Moles/Vol] 13.3 mmol/L Normal [facility] Comment on above: Performed By: #### B MP #### [facility] [address] [address] [address] Allen Smith Calcium [Mass/Vol] 7.1 mg/dL Critically low 8.5-10.1 [facility] Comment on above: Performed By: #### B MP #### [facility] [address] [address] [address] Allen Smith Chloride [Moles/Vol] 97 mmol/L Critically low 98-107 [facility] Comment on above: Performed By: #### B MP #### [facility] [address] [address] [address] Allen Smith CO2 [Moles/Vol] 21.8 mmol/L Normal 21.0-32.0 [facility] Comment on above: Performed By: #### B MP #### [facility] [address] [place] [address] Dr. Allen Smith Creatinine [Mass/Vol] 0.84 mg/dL Normal 0.55-1.02 [facility] Comment on above: Performed By: #### B MP #### [facility] [address] [address] [address] Allen Smith EGFR-AF GUAMANIAN >60 Normal >=60 [facility] Comment on above: Performed By: #### B MP #### [facility] [address] [place] [address] Dr. Allen Smith EGFR-NON AF GUAMANIAN >60 Normal >=60 [facility] Comment on above: Performed By: #### B MP #### [facility] [address] [address] [address] Allen Smith Glucose [Mass/Vol] 128 mg/dL Critically high 74-106 [facility] Comment on above: Performed By: #### B MP #### [facility] [address] [address] [address] Allen Smith Potassium [Moles/Vol] 3.1 mmol/L Critically low 3.5-5.1 [facility] Comment on above: Performed By: #### B MP #### [facility] [address] [place] [address] Dr. Allen Smith Sodium [Moles/Vol] 129 mmol/L Critically low 136-145 [facility] Comment on above: Performed By: #### B MP #### [facility] [address] [place] [address] Dr. Allen Smith Urea nitrogen [Mass/Vol] 17.0 mg/dL Normal 7.0-18.0 [facility] Comment on above: Performed By: #### B MP #### [facility] [address] [place] [address] Dr. Allen Smith Urea nitrogen/Creatinine [Mass ratio] 20.2 mg/mg Normal [facility] Comment on above: Performed By: #### B MP #### [facility] [address] [place] [address] Dr. Allen Smith PROTIMEon 01-25-2023 INR Coag (PPP) [Relative time] 0.98 {INR} Normal [facility] Comment on above: Performed By: #### B LEAD ESTHETICIAN, CMP #### [facility] [address] [place] [address] Dr. Allen Smith INR GUIDELINES SEE BELOW Normal [facility] Comment on above: Result Comment: VU RED INR: 2.0 - 3.0 CONDITIONS NOT LISTED BELOW 2.5 - 3.5 FOR PROSTHETIC HEART VALVE REPLACEMENT 2.5 - 3.5 RECURRENT THROMBOSIS Performed By: #### B LEAD ESTHETICIAN, CMP #### [facility] [address] [place] [address] Dr. Allen Smith PT Coag (PPP) [Time] 10.4 s Normal 9.0-11.6 [facility] Comment on above: Performed By: #### B LEAD ESTHETICIAN, CMP #### [facility] [address] [place] [address] Dr. Allen Smith PTTon 01-25-2023 aPTT Coag (Bld) [Time] 29.8 s Normal 22.3-36.2 [facility] Comment on above: Performed By: #### B LEAD ESTHETICIAN, CMP #### [facility] [address] [place] [address] Dr. Allen Smith PTT HEPARIN MONITORon 2022 aPTT Coag (Bld) [Time] 24.5 s Critically low 39.5-54.2 [facility] Comment on above: Performed By: #### T #### [facility] [address] [address] [address] Allen Smith TRIGLYCERIDEon 01-25-2023 Triglyceride [Mass/Vol] 55 mg/dL Normal <=150 [facility] Comment on above: Performed By: #### T #### [facility] [address] [address] [address] Allen Smith XR CHEST 1 Von 01-25-2023 XR CHEST 1 V EXAM: XR CHEST 1 V HISTORY: SHORTNESS OF BREATH COMPARISON: Chest radiograph 01/25/2023. TECHNIQUE: AP upright portable view of chest FINDINGS: Stable endotracheal tube position. Enteric tube has been advanced with distal tip not included in the [id number] but at least terminates in the mid to low gastric body. Radiolucent sideport is at the gastric antrum. Similar pulmonary vascular congestion. No sizable pleural effusion or pneumothorax. Normal cardiomediastinal sella. No acute osseous or soft tissue abnormalities. IMPRESSION: 1. Enteric tube has been advanced with distal tip not included in the [id number] but at least terminates in the mid to low gastric body. Radiolucent sideport is at the gastric antrum. 2. Stable endotracheal tube position. 3. Pulmonary vascular congestion. Electronically authenticated by: BASHIR ZAYAS Date: 2023-01-25 18:35 Normal [facility] XR CHEST 1 V EXAM: [...] by: Ava HERNDON Date: 2023-01-25 17:25 Normal [facility] BLOOD GASES BTYon 01-24-2023 02 MODE NASAL CANNULA Normal [facility] Comment on above: Performed By: #### A BG #### [facility] [address] [place] [address] Dr. Allen Smith ALLENS TEST Positive [facility] Comment on above: Performed By: #### A BG #### [facility] [address] [place] [address] Dr. Allen Smith Base excess Calc (Bld) [Moles/Vol] -4.1000 mmol/L Critically low -2.0-2.0 [facility] Comment on above: Performed By: #### A BG #### [facility] [address] [place] [address] Dr. Allen Smith BIPAP PRESSURE [facility] Comment on above: Performed By: #### A BG #### [facility] [address] [place] [address] Dr. Allen [address] CP[address] [facility] Comment on above: Performed By: #### A BG #### [facility] [address] [place] [address] Dr. Allen Smith FIO2 [facility] Comment on above: Performed By: #### A BG #### [facility] [address] [place] [address] Dr. Allen Smith HCO3 (Bld) [Moles/Vol] 21.6 mmol/L Critically low 22.0-26. 0 [facility] Comment on above: Performed By: #### A BG #### [facility] [address] [place] [address] Dr. Allen Smith LPM [address] [facility] Comment on above: Performed By: #### A BG #### [facility] [address] [place] [address] Dr. Allen Smith MINUTE VOLUME Normal [facility] Comment on above: Performed By: #### A BG #### [facility] [address] [place] [address] Dr. Allen Smith Oxygen (Bld) [Partial pressure] 112.0 mm[Hg] Critically high 80.0-100.0 [facility] Comment on above: Performed By: #### A BG #### [facility] [address] [place] [address] Dr. Allen Smith Oxygen saturation in Blood 98.5 % Normal 95.0-100.0 [facility] Comment on above: Performed By: #### A BG #### [facility] [address] [place] [address] Dr. Allen Smith PCO2 39.6 mmHg Normal 35.0-45.0 [facility] Comment on above: Performed By: #### A BG #### [facility] [address] [place] [address] Dr. Allen Smith [facility] Comment on above: Performed By: #### A BG #### [facility] [address] [place] [address] Dr. Allen Smith pH (Bld) 7.345 [pH] Critically low 7.350-7.45 0 [facility] Comment on above: Performed By: #### A BG #### [facility] [address] [place] [address] Dr. Allen Smith [facility] Comment on above: Performed By: #### A BG #### [facility] [address] [place] [address] Dr. Allen Smith PS [facility] Comment on above: Performed By: #### A BG #### [facility] [address] [place] [address] Dr. Allen Smith PUNCTURE SITE LR [facility] Comment on above: Performed By: #### A BG #### [facility] [address] [place] [address] Dr. [address]ATE [facility] Comment on above: Performed By: #### A BG #### [facility] [address] [place] [address] Dr. Allen Smith VENT MODE [facility] Comment on above: Performed By: #### A BG #### [facility] [address] [place] [address] Dr. Allen Smith VT Normal [facility] Comment on above: Performed By: #### A BG #### [facility] [address] [place] [address] Dr. Allen Smith BNPon 01-24-2023 Natriuretic peptide B (Bld) [Mass/Vol] 10316.0 pg/mL Critically high <=900.0 [facility] Comment on above: Performed By: #### N A #### [facility] [address] [place] [address] Dr. Allen Smith CARDIAC LI 3-6on 3 CK [Catalytic activity/Vol] 319 U/L Critically high -192 [facility] Comment on above: Performed By: #### B LEAD ESTHETICIAN, CMP #### [facility] [address] [place] [address] Dr. Allen Smith CK.MB [Mass/Vol] 16.41 ng/mL Critically high <=3.60 [facility] Comment on above: Performed By: #### B LEAD ESTHETICIAN, CMP #### [facility] [address] [place] [address] Dr. Allen Smith HSTROP 1248.2 pg/mL Critically high 4.0-51.3 [facility] Comment on above: Result Comment: CUT- OFF POINTS HAVE BEEN ESTABLISHED BASED ON THE FOURTH UNIVERSAL DEFINITIONS OF MYOCARDIAL INFARCTION. THE UPPER REFERENCE LIMIT (URL) OF TROPONIN, DEFINED THE 99TH PERCENTILE OF cTnI DISTRIBUTION IN A REFERENCE POPULATION, HAS BEEN CONFIRMED THE DECISION THRESHOLD FOR IN DIAGNOSIS. Performed By: #### B LEAD ESTHETICIAN, CMP #### [facility] [address] [place] [address] Dr. Allen Smith CARDIAC LI ADMITon 023 CK [Catalytic activity/Vol] 238 U/L Critically high -192 [facility] Comment on above: Performed By: #### C MADM #### [facility] [address] [place] [address] Dr. Allen Smith CK.MB [Mass/Vol] 12.74 ng/mL Critically high <=3.60 [facility] Comment on above: Performed By: #### C MADM #### [facility] [address] [place] [address] Dr. Allen Smith HSTROP 1545.9 pg/mL Critically high 4.0-51.3 [facility] Comment on above: Result Comment: CUT- OFF POINTS HAVE BEEN ESTABLISHED BASED ON THE FOURTH UNIVERSAL DEFINITIONS OF MYOCARDIAL INFARCTION. THE UPPER REFERENCE LIMIT (URL) OF TROPONIN, DEFINED THE 99TH PERCENTILE OF cTnI DISTRIBUTION IN A REFERENCE POPULATION, HAS BEEN CONFIRMED THE DECISION THRESHOLD FOR IN DIAGNOSIS. Performed By: #### C MADM #### [facility] [address] [place] [address] Dr. Allen Smith BRYAN 244 ng/mL Critically high 9-82 [facility] Comment on above: Performed By: #### C MADM #### [facility] [address] [place] [address] Dr. Allen Smith CBC AUTO DIFFon 01-24-2023 BASO # 0.0 103/ul Normal 0.0-0.1 [facility] Comment on above: Performed By: #### C BC #### [facility] [address] [place] [address] Dr. Allen Smith Basophils/100 WBC (Bld) 0.2 % Normal 0.2-2.0 [facility] [facility] Comment on above: Performed By: #### C BC #### [facility] [address] [place] [address] Dr. Allen Smith EO # 0.0 103/ul Normal 0.0-0.7 [facility] Comment on above: Performed By: #### C BC #### [facility] [address] [place] [address] Dr. Allen Smith Eosinophils/100 WBC (Bld) 0.0 % Critically low 0.9-7.0 [facility] Comment on above: Performed By: #### C BC #### [facility] [address] [place] [address] Dr. Allen Smith Erythrocyte distribution width (RBC) [Ratio] 13.4 % Normal 11.0-15.0 [facility] Comment on above: Performed By: #### C BC #### [facility] [address] [place] [address] Dr. Allen Smith Hematocrit (Bld) [Volume fraction] 33.0 % Critically low 36.0-48.0 [facility] Comment on above: Performed By: #### C BC #### [facility] [address] [place] [address] Dr. Allen Smith Hemoglobin (Bld) [Mass/Vol] 10.6 g/dL Critically low 12.0-16.0 [facility] Comment on above: Performed By: #### C BC #### [facility] [address] [place] [address] Dr. Allen Smith IG # 0.11 10e3/ul Critically high 0.00-0.03 [facility] Comment on above: Performed By: #### C BC #### [facility] [address] [place] [address] Dr. Allen Smith IG % 0.9 % Critically high 0.0-0.5 [facility] Comment on above: Performed By: #### C BC #### [facility] [address] [place] [address] Dr. Allen Smith LYMPH # 0.5 103/ul Critically low 1.2-3.8 [facility] Comment on above: Performed By: #### C BC #### [facility] [address] [place] [address] Dr. Allen Smith Lymphocytes/100 WBC (Bld) 4.2 % Critically low 20.5-60.0 [facility] Comment on above: Performed By: #### C BC #### [facility] [address] [place] [address] Dr. Allen Smith MANUAL DIFF REQ NO Normal [facility] Comment on above: Performed By: #### C BC #### [facility] [address] [place] [address] Dr. Allen Smith MCH (RBC) [Entitic mass] 24.5 pg Critically low 26.7-34.0 [facility] Comment on above: Performed By: #### C BC #### [facility] [address] [address] [address] Allen Smith MCHC (RBC) [Mass/Vol] 32.1 g/dL Normal 29.9-35.2 [facility] Comment on above: Performed By: #### C BC #### [facility] [address] [place] [address] Dr. Allen Smith MCV (RBC) [Entitic vol] 76.2 fL Critically low 81.0-99.0 [facility] Comment on above: Performed By: #### C BC #### [facility] [address] [place] [address] Dr. Allen Smith MONO # 0.7 103/ul Normal 0.3-0.8 [facility] Comment on above: Performed By: #### C BC #### [facility] [address] [place] [address] Dr. Allen Smith Monocytes/100 WBC (Bld) 5.1 % Normal 1.7-12.0 [facility] Comment on above: Performed By: #### C BC #### [facility] [address] [place] [address] Dr. Allen Smith NEUT # 11.3 103/ul Critically high 1.4-6.5 [facility] Comment on above: Performed By: #### C BC #### [facility] [address] [place] [address] Dr. Allen Smith Neutrophils/100 WBC (Bld) 89.6 % Critically high 43.0-75.0 [facility] Comment on above: Performed By: #### C BC #### [facility] [address] [place] [address] Dr. Allen Smith Platelet mean volume (Bld) [Entitic vol] 10.0 fL Normal 9.5-13.5 [facility] Comment on above: Performed By: #### C BC #### [facility] [address] [place] [address] Dr. Allen Smith PLT 316 103/ul Normal 150-450 [facility] Comment on above: Performed By: #### C BC #### [facility] [address] [place] [address] Dr. Allen Smith RBC 4.33 106/ul Normal 4.20-5.40 [facility] Comment on above: Performed By: #### C BC #### [facility] [address] [address] [address] Allen Smith WBC 12.6 103/ul Critically high 4.0-11.0 [facility] Comment on above: Performed By: #### C BC #### [facility] [address] [address] NECK ST W [...] FREDDY BARRAZA Date: 2023-01-24 14:13 Normal [facility] CULTURE BLOODon 01-24-2023 Microscopic examination of blood, culture Culture Observations: NO GROWTH AT 5 DAYS. Normal [facility] Comment on above: Performed By: #### B LEAD ESTHETICIAN, CMP #### [facility] [address] [address] [address] Allen Smith Microscopic examination of blood, culture Culture Observations: NO GROWTH AT 5 DAYS. Normal [facility] Comment on above: Performed By: #### B LEAD ESTHETICIAN, CMP #### [facility] [address] [place] [address] Dr. Allen Smith GROUP A STREP CULTUREon 01-01 S. pyogenes Ag Ql (Unsp spec) Culture Observations: NEGATIVE FOR GROUP A STREPTOCOCCUS. Normal [facility] Comment on above: Performed By: #### N A #### [facility] [address] [place] [address] Dr. Allen Smith LACTATE/LACTIC ACIDon 2022 Lactate [Moles/Vol] 3.1 mmol/L Critically high 0.4-2.0 [facility] Comment on above: Performed By: #### A BG #### [facility] [address] [place] [address] Dr. Allen Smith Lactate [Moles/Vol] 3.6 mmol/L Critically high 0.4-2.0 [facility] Comment on above: Performed By: #### T SH #### [facility] [address] [place] [address] Dr. Allen Smith NAon 01-24-2023 Sodium [Moles/Vol] 122 mmol/L Critically low 136-145 [facility] Comment on above: Performed By: #### N A #### [facility] [address] [place] [address] Dr. Allen Smith PROF 14(COMP METB)on 023 Albumin [Mass/Vol] 3.0 g/dL Critically low 3.4-5.0 [facility] Comment on above: Performed By: #### N A #### [facility] [address] [place] [address] Dr. Allen Smith Albumin/Globulin [Mass ratio] 0.5 {ratio} Normal [facility] Comment on above: Performed By: #### N A #### [facility] [address] [place] [address] Dr. Allen Smith ALP [Catalytic activity/Vol] 88 U/L Normal 46-116 [facility] Comment on above: Performed By: #### N A #### [facility] [address] [address] [address] Allen Smith ALT [Catalytic activity/Vol] 65 U/L Critically high 14-59 [facility] Comment on above: Performed By: #### N A #### [facility] [address] [address] [address] Allen Smith Anion gap [Moles/Vol] 17.8 mmol/L Normal Th e [facility] Comment on above: Performed By: #### N A #### [facility] [address] [address] [address] Allen Smith AST [Catalytic activity/Vol] 28 U/L Normal 15-37 [facility] Comment on above: Performed By: #### N A #### [facility] [address] [place] [address] Dr. Allen Smith Bilirubin [Mass/Vol] 0.3 mg/dL Normal 0.2-1.0 [facility] Comment on above: Performed By: #### N A #### [facility] [address] [place] [address] Dr. Allen Smith Calcium [Mass/Vol] 9.5 mg/dL Normal 8.5-10.1 [facility] Comment on above: Performed By: #### N A #### [facility] [address] [place] [address] Dr. Allen Smith Chloride [Moles/Vol] 87 mmol/L Critically low 98-107 [facility] Comment on above: Performed By: #### N A #### [facility] [address] [place] [address] Dr. Allen Smith CO2 [Moles/Vol] 22.5 mmol/L Normal 21.0-32.0 [facility] Comment on above: Performed By: #### N A #### [facility] [address] [place] [address] Dr. Allen Smith Creatinine [Mass/Vol] 1.07 mg/dL Critically high 0.55-1.02 [facility] Comment on above: Performed By: #### N A #### [facility] [address] [place] [address] Dr. Allen Smith EGFR-AF GUAMANIAN >60 Normal >=60 [facility] Comment on above: Performed By: #### N A #### [facility] [address] [address] [address] Allen Smith EGFR-NON AF GUAMANIAN 51 mL/min/1.73m2 Critically low >=60 [facility] Comment on above: Performed By: #### N A #### [facility] [address] [address] [address] Allen Smith Globulin (S) [Mass/Vol] 6.2 g/dL Normal [facility] Comment on above: Performed By: #### N A #### [facility] [address] [place] [address] Dr. Allen Smith Glucose [Mass/Vol] 182 mg/dL Critically high 74-106 [facility] Comment on above: Performed By: #### N A #### [facility] [address] [address] [address] Allen Smith Potassium [Moles/Vol] 4.3 mmol/L Normal 3.5-5.1 [facility] Comment on above: Performed By: #### N A #### [facility] [address] [place] [address] Dr. Allen Smith Protein [Mass/Vol] 9.2 g/dL Critically high 6.4-8.2 [facility] Comment on above: Performed By: #### N A #### [facility] [address] [address] [address] Allen Smith Sodium [Moles/Vol] 123 mmol/L Critically low 136-145 [facility] Comment on above: Performed By: #### N A #### [facility] [address] [place] [address] Dr. Allen Smith Urea nitrogen [Mass/Vol] 12.0 mg/dL Normal 7.0-18.0 [facility] Comment on above: Performed By: #### N A #### [facility] [address] [place] [address] Dr. Allen Smith Urea nitrogen/Creatinine [Mass ratio] 11.2 mg/mg Normal [facility] Comment on above: Performed By: #### N A #### [facility] [address] [place] [address] Dr. Allen Smith PROTIMEon 01-24-2023 INR Coag (PPP) [Relative time] 0.98 {INR} Normal [facility] Comment on above: Performed By: #### T SH #### [facility] [address] [place] [address] Dr. Allen Smith INR GUIDELINES SEE BELOW Normal [facility] Comment on above: Result Comment: VU RED INR: 2.0 - 3.0 CONDITIONS NOT LISTED BELOW 2.5 - 3.5 FOR PROSTHETIC HEART VALVE REPLACEMENT 2.5 - 3.5 RECURRENT THROMBOSIS Performed By: #### T SH #### [facility] [address] [place] [address] Dr. Allen Smith PT Coag (PPP) [Time] 10.4 s Normal 9.0-11.6 [facility] Comment on above: Performed By: #### T SH #### [facility] [address] [place] [address] Dr. Allen Smith PTTon 01-24-2023 aPTT Coag (Bld) [Time] 29.5 s Normal 22.3-36.2 Th [facility] Comment on above: Performed By: #### T SH #### [facility] [address] [place] [address] Dr. Allen Smith RESPIRATORY PANEL PLUSon Adenovirus Not detected Normal NOT DETECTED [facility] Comment on above: Performed By: #### N A #### [facility] [address] [place] [address] Dr. Allen Mallory. Parapertusis Not detected Normal NOT DETECTED [facility] Comment on above: Performed By: #### N A #### [facility] [address] [place] [address] Dr. Allen Mallory. Pertussis Not detected Normal NOT DETECTED [facility] Comment on above: Performed By: #### N A #### [facility] [address] [place] [address] Dr. Allen Smith Chlamydia Pneumoniae Not detected Normal NOT DETECTED [facility] Comment on above: Performed By: #### N A #### [facility] [address] [place] [address] Dr. Allen Smith Coronavirus 229E Not detected Normal NOT DETECTED [facility] Comment on above: Performed By: #### N A #### [facility] [address] [place] [address] Dr. Allen Smith Coronavirus HKU1 Not detected Normal NOT DETECTED [facility] Comment on above: Performed By: #### N A #### [facility] [address] [place] [address] Dr. Allen Smith Coronavirus NL63 Not detected Normal NOT DETECTED [facility] Comment on above: Performed By: #### N A #### [facility] [address] [place] [address] Dr. Allen Smtih Coronavirus OC43 Not detected Normal NOT DETECTED [facility] Comment on above: Performed By: #### N A #### [facility] [address] [place] [address] Dr. Allen Smith Influenza A H1 Not detected Normal NOT DETECTED [facility] Comment on above: Performed By: #### N A #### [facility] [address] [place] [address] Dr. Allen Smith Influenza A H1 2009 Not detected Normal NOT DETECTED [facility] Comment on above: Performed By: #### N A #### [facility] [address] [place] [address] Dr. Allen Smith Influenza A H3 Not detected Normal NOT DETECTED [facility] Comment on above: Performed By: #### N A #### [facility] [address] [place] [address] Dr. Allen Smith Influenza B Not detected Normal NOT DETECTED [facility] Comment on above: Performed By: #### N A #### [facility] [address] [place] [address] Dr. Allen Smith Metapneumovirus Not detected Normal NOT DETECTED [facility] Comment on above: Performed By: #### N A #### [facility] [address] [place] [address] Dr. Allen Smith Mycoplas. Pneumoniae Not detected Normal NOT DETECTED [facility] Comment on above: Performed By: #### N A #### [facility] [address] [place] [address] Dr. Allen Smith Parainfluenza 1 Not detected Normal NOT DETECTED [facility] Comment on above: Performed By: #### N A #### [facility] [address] [place] [address] Dr. Allen Smith Parainfluenza 2 Not detected Normal NOT DETECTED [facility] Comment on above: Performed By: #### N A #### [facility] [address] [place] [address] Dr. Allen Smith Parainfluenza 3 Detected Abnormal NOT DETECTED [facility] Comment on above: Performed By: #### N A #### [facility] [address] [place] [address] Dr. Allen Smith Parainfluenza 4 Not detected Normal NOT DETECTED [facility] Comment on above: Performed By: #### N A #### [facility] [address] [place] [address] Dr. Allen Smith Rhino/Enterovirus Not detected Normal NOT DETECTED [facility] Comment on above: Performed By: #### N A #### [facility] [address] [place] [address] Dr. Allen LOUISE Header 1 RESPIRATORY PANEL: VIRUSES Normal [facility] Comment on above: Performed By: #### N A #### [facility] [address] [place] [address] Dr. Allen LOUISE Header 2 RESPIRATORY PANEL: BACTERIA Normal [facility] Comment on above: Performed By: #### N A #### [facility] [address] [place] [address] Dr. Allen Smith RSV Not detected Normal NOT DETECTED [facility] Comment on above: Performed By: #### N A #### [facility] [address] [place], [place] [id number] Dr. Allen Smith SARS-CoV-2 (COVID-19) RNA BJORN+probe Ql (Unsp spec) Not detected Normal NOT DETECTED [facility] Comment on above: Performed By: #### N A #### [facility] [address] [place] [address] Dr. Allen Smith STREPT SCREENon 01-24-2023 STREP SCREEN A Negative Normal NEGATIVE [facility] Comment on above: Performed By: #### N A #### [facility] [address] [address] [address] Allen Smith TSHon 01-24-2023 TSH 0.471 uIU/mL Normal 0.358-3.74 0 [facility] Comment on above: Performed By: #### T SH #### [facility] [address] [place] [address] Dr. Allen Smith XR CHEST 1 Von [...] by: OLIVIA JAVED Date: 2023-01-24 12:53 Normal [facility] Vital Signs Date Time Vital Sign Value Performing Clinician Facility 06-24-2024 12:56-0400 Body height 165.[address] [facility] Nedra Kim Work Phone: [facility] 06-24-2024 12:56-0400 Body mass index (BMI) [Ratio] 31.1 kg/m2 [facility] Nedra Kim Work Phone: [facility] 06-24-2024 12:56-0400 Body temperature 97.9 [degF] [facility] Nedra Kim Work Phone: [facility] 06-24-2024 12:56-0400 Body weight 84.82 kg [employer] Nedra Kim Work Phone: [facility] 06-24-2024 12:56-0400 Diastolic blood pressure 80 mm[Hg] [employer]UC[employer] Nedra Kim Work Phone: [facility] 06-24-2024 12:56-0400 Heart rate 61 /min [employer]ULT [employer]UC[employer] PROF[employer] Nedra Kim Work Phone: [facility] 06-24-2024 12:56-0400 Inhaled oxygen flow rate 2 L/min [employer]ULT [employer]UCATION PROFESSION[employer] Nedra Kim Work Phone: [facility] 06-24-2024 12:56-0400 Respiratory rate 18 /min [employer]ULT [employer]UC[employer] PROF[employer] Nedra Kim Work Phone: [facility] 06-24-2024 12:56-0400 SaO2% (BldA) [Mass fraction] 97 % [employer]ULT [employer]UC[employer] PROFESSION[employer] Nedra Kim Work Phone: [facility] 06-24-2024 12:56-0400 Systolic blood pressure 164 mm[Hg] ADULT [employer]UCATION PROFESSION[employer] Nedra Kim Work Phone: [facility] 06-04-2024 15:51-0400 Body height 165.1 cm ADULT [employer]UCATION PROFESSIONAL Nedra Kim Work Phone: [facility] 06-04-2024 15:51-0400 Body mass index (BMI) [Ratio] 30.2 kg/m2 [employer]ULT [employer] PROFESSION[employer] Nedra Kim Work Phone: [facility] 06-04-2024 15:51-0400 Body temperature 97.6 [degF] ADULT EDUCATION PROFESSIONAL Nedra Kim Work Phone: [facility] 06-04-2024 15:51-0400 Body weight 82.58 kg ADULT EDUCATION PROFESSIONAL Nedra Kim Work Phone: [facility] 06-04-2024 15:51-0400 Diastolic blood pressure 61 mm[Hg] ADULT EDUCATION PROFESSIONAL Nedra Kim Work Phone: [facility] 06-04-2024 15:51-0400 Heart rate 62 /min ADULT EDUCATION PROFESSIONAL Nedra iKm Work Phone: [facility] 06-04-2024 15:51-0400 Respiratory rate 18 /min ADULT EDUCATION PROFESSIONAL Nedra Kim Work Phone: [facility] 06-04-2024 15:51-0400 SaO2% (BldA) [Mass fraction] 92 % ADULT [employer]UCATION PROFESSIONAL Nedra Kim Work Phone: [facility] 06-04-2024 15:51-0400 Systolic blood pressure 108 mm[Hg] ADULT EDUCATION PROFESSIONAL Nedra Kim Work Phone: [facility] 05-10-2024 11:45-0400 Inhaled oxygen flow rate 2 L/min ADULT EDUCATION PROFESSIONAL Nedra Kim Work Phone: [facility] 05-10-2024 09:49-0400 Body temperature 98 [degF] ADULT EDUCATION PROFESSIONAL Nedra Kim Work Phone: [facility] 05-10-2024 09:49-0400 Body weight 80.73 kg ADULT EDUCATION PROFESSIONAL Nedra Kim Work Phone: [facility] 05-10-2024 09:49-0400 Diastolic blood pressure 71 mm[Hg] ADULT [employer]UCATION PROFESSIONAL Nedra Kim Work Phone: [facility] 05-10-2024 09:49-0400 Heart rate 65 /min ADULT EDUCATION PROFESSIONAL Nedra Kim Work Phone: [facility] 05-10-2024 09:49-0400 Respiratory rate 18 /min ADULT EDUCATION PROFESSIONAL Nedra Kim Work Phone: [facility] 05-10-2024 09:49-0400 SaO2% (BldA) [Mass fraction] 99 % [employer]ULT EDUCATION PROFESSIONAL Nedra Kim Work Phone: [facility] 05-10-2024 09:49-0400 Systolic blood pressure 127 mm[Hg] ADULT EDUCATION PROFESSIONAL Nedra Sanchezs Work Phone: [facility] 03-29-2024 10:55-0400 Inhaled oxygen flow rate 2 L/min ADULT EDUCATION PROFESSIONAL Nedra Kim Work Phone: [facility] 03-29-2024 09:50-0400 Body temperature 98.1 [degF] ADULT EDUCATION PROFESSIONAL Nedra Kim Work Phone: [facility] 03-29-2024 09:50-0400 Body weight 76.65 kg ADULT EDUCATION PROFESSIONAL Nedra Kim Work Phone: [facility] 03-29-2024 09:50-0400 Diastolic blood pressure 75 mm[Hg] ADULT EDUCATION PROFESSIONAL Nedra Kim Work Phone: [facility] 03-29-2024 09:50-0400 Heart rate 65 /min ADULT EDUCATION PROFESSIONAL Nedra Kim Work Phone: [facility] 03-29-2024 09:50-0400 Inhaled oxygen flow rate 2 L/min ADULT EDUCATION PROFESSIONAL Nedra Kim Work Phone: [facility] 03-29-2024 09:50-0400 Respiratory rate 20 /min ADULT EDUCATION PROFESSIONAL Nedra Kim Work Phone: [facility] 03-29-2024 09:50-0400 SaO2% (BldA) [Mass fraction] 100 % ADULT EDUCATION PROFESSIONAL Nedra Kim Work Phone: [facility] 03-29-2024 09:50-0400 Systolic blood pressure 137 mm[Hg] ADULT EDUCATION PROFESSIONAL Nedra Kim Work Phone: [facility] 01-18-2024 13:00-0400 Body temperature 97.6 [degF] ADULT EDUCATION PROFESSIONAL Nedra Kim Work Phone: [facility] 01-18-2024 13:00-0400 Diastolic blood pressure 65 mm[Hg] ADULT EDUCATION PROFESSIONAL Nedra Kim Work Phone: [facility] 01-18-2024 13:00-0400 Heart rate 62 /min ADULT EDUCATION PROFESSIONAL Nedra Kim Work Phone: [facility] 01-18-2024 13:00-0400 Respiratory rate 18 /min ADULT EDUCATION PROFESSIONAL Nedra Kim Work Phone: [facility] 01-18-2024 13:00-0400 SaO2% (BldA) [Mass fraction] 100 % ADULT EDUCATION PROFESSIONAL Nedra Kim Work Phone: [facility] 01-18-2024 13:00-0400 Systolic blood pressure 122 mm[Hg] ADULT EDUCATION PROFESSIONAL Nedra Kim Work Phone: [facility] 12-29-2023 09:56-0400 Inhaled oxygen flow rate 2 L/min ADULT EDUCATION PROFESSIONAL Nedra Kim Work Phone: [facility] 12-29-2023 08:52-0400 Body temperature 98.2 [degF] ADULT EDUCATION PROFESSIONAL Nedra Kim Work Phone: [facility] 12-29-2023 08:52-0400 Body weight 68.49 kg ADULT EDUCATION PROFESSIONAL Nedra Kim Work Phone: [facility] 12-29-2023 08:52-0400 Diastolic blood pressure 68 mm[Hg] ADULT EDUCATION PROFESSIONAL Nedra Kim Work Phone: [facility] 12-29-2023 08:52-0400 Heart rate 87 /min ADULT EDUCATION PROFESSIONAL Nedra Kim Work Phone: [facility] 12-29-2023 08:52-0400 Inhaled oxygen flow rate 2 L/min ADULT EDUCATION PROFESSIONAL Nedra Kim Work Phone: [facility] 12-29-2023 08:52-0400 Respiratory rate 18 /min ADULT EDUCATION PROFESSIONAL Nedra Kim Work Phone: [facility] 12-29-2023 08:52-0400 SaO2% (BldA) [Mass fraction] 99 % ADULT EDUCATION PROFESSIONAL Nedra Kim Work Phone: [facility] 12-29-2023 08:52-0400 Systolic blood pressure 124 mm[Hg] ADULT EDUCATION PROFESSIONAL Nedra Kim Work Phone: [facility] 12-26-2023 14:57-0400 Body height 157.5 cm Nedra Kim APRN-ADULT EDUCATION PROFESSIONAL Work Phone: [facility] 12-26-2023 14:57-0400 Body mass index (BMI) [Ratio] 27.44 kg/m2 Nedra Kim APRN-ADULT EDUCATION PROFESSIONAL Work Phone: [facility] 12-26-2023 14:57-0400 Body temperature 97.39 [degF] Nedra Kim APRN-ADULT EDUCATION PROFESSIONAL Work Phone: [facility] 12-26-2023 14:57-0400 Body weight 68.04 kg Nedra Kim APRN-ADULT EDUCATION PROFESSIONAL Work Phone: [facility] 12-26-2023 14:57-0400 Diastolic blood pressure 56 mm[Hg] Nedra Kim APRN-ADULT EDUCATION PROFESSIONAL Work Phone: [facility] 12-26-2023 14:57-0400 Heart rate 73 /min Nedra Kim APRNLuADULT EDUCATION PROFESSIONAL Work Phone: [facility] 12-26-2023 14:57-0400 Respiratory rate 20 /min Nedra Kim APRN-ADULT EDUCATION PROFESSIONAL Work Phone: [facility] 12-26-2023 14:57-0400 SaO2% (BldA) [Mass fraction] 99 % Nedra Kim APRN-ADULT EDUCATION PROFESSIONAL Work Phone: [facility] 12-26-2023 14:57-0400 Systolic blood pressure 100 mm[Hg] Nedra Kim APRN-ADULT EDUCATION PROFESSIONAL Work Phone: [facility] 12-07-2023 13:18-0500 Body temperature 98 [degF] ADULT EDUCATION PROFESSIONAL Nedra Kim Work Phone: [facility] 12-07-2023 13:18-0500 Diastolic blood pressure 56 mm[Hg] ADULT EDUCATION PROFESSIONAL Nedra Kim Work Phone: [facility] 12-07-2023 13:18-0500 Heart rate 59 /min ADULT EDUCATION PROFESSIONAL Nedra Kim Work Phone: [facility] 12-07-2023 13:18-0500 Respiratory rate 20 /min ADULT EDUCATION PROFESSIONAL Nedra Kim Work Phone: [facility] 12-07-2023 13:18-0500 SaO2% (BldA) [Mass fraction] 99 % ADULT EDUCATION PROFESSIONAL Nedra Kim Work Phone: [facility] 12-07-2023 13:18-0500 Systolic blood pressure 115 mm[Hg] ADULT EDUCATION PROFESSIONAL Nedra Kim Work Phone: [facility] 11-17-2023 10:30-0500 Body weight 62.59 kg ADULT EDUCATION PROFESSIONAL Nedra Kim Work Phone: [facility] 11-17-2023 09:44-0500 Body temperature 98 [degF] ADULT EDUCATION PROFESSIONAL Nedra Kim Work Phone: [facility] 11-17-2023 09:44-0500 Diastolic blood pressure 66 mm[Hg] ADULT EDUCATION PROFESSIONAL Nedra Kim Work Phone: [facility] 11-17-2023 09:44-0500 Heart rate 72 /min ADULT EDUCATION PROFESSIONAL Nedra Kim Work Phone: [facility] 11-17-2023 09:44-0500 Inhaled oxygen flow rate 2 L/min ADULT EDUCATION PROFESSIONAL Nedra Kim Work Phone: [facility] 11-17-2023 09:44-0500 Respiratory rate 20 /min ADULT EDUCATION PROFESSIONAL Nedra Kim Work Phone: [facility] 11-17-2023 09:44-0500 SaO2% (BldA) [Mass fraction] 100 % ADULT EDUCATION PROFESSIONAL Nedra Kim Work Phone: [facility] 11-17-2023 09:44-0500 Systolic blood pressure 142 mm[Hg] ADULT EDUCATION PROFESSIONAL Nedra Sanchezs Work Phone: [facility] 10-26-2023 14:23-0500 Inhaled oxygen flow rate 2 L/min ADULT EDUCATION PROFESSIONAL Nedra Sanchezs Work Phone: [facility] 10-26-2023 13:13-0500 Body temperature 98.1 [degF] ADULT EDUCATION PROFESSIONAL Nedra Sanchezs Work Phone: [facility] 10-26-2023 13:13-0500 Body weight 69.85 kg ADULT EDUCATION PROFESSIONAL Nedra Kim Work Phone: [facility] 10-26-2023 13:13-0500 Diastolic blood pressure 66 mm[Hg] ADULT EDUCATION PROFESSIONAL Nedra Sanchezs Work Phone: [facility] 10-26-2023 13:13-0500 Heart rate 77 /min ADULT EDUCATION PROFESSIONAL Nedra Sanchezs Work Phone: [facility] 10-26-2023 13:13-0500 Inhaled oxygen flow rate 2 L/min ADULT EDUCATION PROFESSIONAL Nedra Kim Work Phone: [facility] 10-26-2023 13:13-0500 Respiratory rate 20 /min ADULT EDUCATION PROFESSIONAL Nedra Kim Work Phone: [facility] 10-26-2023 13:13-0500 SaO2% (BldA) [Mass fraction] 97 % ADULT EDUCATION PROFESSIONAL Nedra Kim Work Phone: [facility] 10-26-2023 13:13-0500 Systolic blood pressure 119 mm[Hg] ADULT EDUCATION PROFESSIONAL Nedra Sanchezs Work Phone: [facility] 10-24-2023 09:40-0500 Body temperature 97.9 [degF] ADULT EDUCATION PROFESSIONAL Nedra Sanchezs Work Phone: [facility] 10-24-2023 09:40-0500 Diastolic blood pressure 84 mm[Hg] ADULT EDUCATION PROFESSIONAL Nedra Sanchezs Work Phone: [facility] 10-24-2023 09:40-0500 Heart rate 103 /min ADULT EDUCATION PROFESSIONAL Nedra Sanchezs Work Phone: [facility] 10-24-2023 09:40-0500 Inhaled oxygen flow rate 2 L/min ADULT EDUCATION PROFESSIONAL Nedra Kim Work Phone: [facility] 10-24-2023 09:40-0500 Respiratory rate 20 /min ADULT EDUCATION PROFESSIONAL Nedra Kim Work Phone: [facility] 10-24-2023 09:40-0500 SaO2% (BldA) [Mass fraction] 100 % ADULT EDUCATION PROFESSIONAL Nedra Kim Work Phone: [facility] 10-24-2023 09:40-0500 Systolic blood pressure 134 mm[Hg] ADULT EDUCATION PROFESSIONAL Nedra Kim Work Phone: [facility] 10-24-2023 06:00-0500 Body weight 70.9 kg ADULT EDUCATION PROFESSIONAL Nedra Kim Work Phone: [facility] 10-20-2023 16:43-0500 Body height 165.1 cm ADULT EDUCATION PROFESSIONAL Nedra Kim Work Phone: [facility] 10-05-2023 10:36-0500 Body temperature 97.9 [degF] ADULT EDUCATION PROFESSIONAL Nedra Kim Work Phone: [facility] 10-05-2023 10:36-0500 Body weight 63.59 kg ADULT EDUCATION PROFESSIONAL Nedra Kim Work Phone: [facility] 10-05-2023 10:36-0500 Diastolic blood pressure 53 mm[Hg] ADULT EDUCATION PROFESSIONAL Nedra Kim Work Phone: [facility] 10-05-2023 10:36-0500 Heart rate 66 /min ADULT EDUCATION PROFESSIONAL Nedra Kim Work Phone: [facility] 10-05-2023 10:36-0500 Inhaled oxygen flow rate 2 L/min ADULT EDUCATION PROFESSIONAL Nedra Sanchezs Work Phone: [facility] 10-05-2023 10:36-0500 Respiratory rate 20 /min ADULT EDUCATION PROFESSIONAL Nedra Sanchezs Work Phone: [facility] 10-05-2023 10:36-0500 SaO2% (BldA) [Mass fraction] 100 % ADULT EDUCATION PROFESSIONAL Nedra Sanchezs Work Phone: [facility] 10-05-2023 10:36-0500 Systolic blood pressure 111 mm[Hg] ADULT EDUCATION PROFESSIONAL Nedra Daniels Work Phone: [facility] 09-12-2023 12:52-0500 Body temperature 97.3 [degF] ADULT EDUCATION PROFESSIONAL Nedra Sanchezs Work Phone: [facility] 09-12-2023 12:52-0500 Body weight 65.31 kg ADULT EDUCATION PROFESSIONAL Nedra Sanchezs Work Phone: [facility] 09-12-2023 12:52-0500 Diastolic blood pressure 68 mm[Hg] ADULT EDUCATION PROFESSIONAL Nedra Sanchezs Work Phone: [facility] 09-12-2023 12:52-0500 Heart rate 83 /min ADULT EDUCATION PROFESSIONAL Nedra Sanchezs Work Phone: [facility] 09-12-2023 12:52-0500 Respiratory rate 16 /min ADULT EDUCATION PROFESSIONAL Nedra Kim Work Phone: [facility] 09-12-2023 12:52-0500 SaO2% (BldA) [Mass fraction] 100 % ADULT EDUCATION PROFESSIONAL Nedra Kim Work Phone: [facility] 09-12-2023 12:52-0500 Systolic blood pressure 138 mm[Hg] ADULT EDUCATION PROFESSIONAL Nedra Sanchezs Work Phone: [facility] 08-28-2023 13:02-0500 Body temperature 98.3 [degF] ADULT EDUCATION PROFESSIONAL Nedra Sanchezs Work Phone: [facility] 08-28-2023 13:02-0500 Body weight 66.31 kg ADULT EDUCATION PROFESSIONAL Nedra Sanchezs Work Phone: [facility] 08-28-2023 13:02-0500 Diastolic blood pressure 69 mm[Hg] ADULT EDUCATION PROFESSIONAL Nedra Sanchezs Work Phone: [facility] 08-28-2023 13:02-0500 Heart rate 90 /min ADULT EDUCATION PROFESSIONAL Nedra Daniels Work Phone: [facility] 08-28-2023 13:02-0500 Inhaled oxygen flow rate 2 L/min ADULT EDUCATION PROFESSIONAL Nedra Sanchezs Work Phone: [facility] 08-28-2023 13:02-0500 Respiratory rate 20 /min ADULT EDUCATION PROFESSIONAL Nedra Sanchezs Work Phone: [facility] 08-28-2023 13:02-0500 SaO2% (BldA) [Mass fraction] 100 % ADULT EDUCATION PROFESSIONAL Nedra Kim Work Phone: [facility] 08-28-2023 13:02-0500 Systolic blood pressure 134 mm[Hg] ADULT EDUCATION PROFESSIONAL Nedra Daniels Work Phone: [facility] 08-22-2023 14:30-0500 Diastolic blood pressure 61 mm[Hg] ADULT EDUCATION PROFESSIONAL Nedra Chris Work Phone: [facility] 08-22-2023 14:30-0500 Heart rate 80 /min ADULT EDUCATION PROFESSIONAL Nedra Sanchezs Work Phone: [facility] 08-22-2023 14:30-0500 Inhaled oxygen flow rate 2 L/min ADULT EDUCATION PROFESSIONAL Nedra Kim Work Phone: [facility] 08-22-2023 14:30-0500 Respiratory rate 20 /min ADULT EDUCATION PROFESSIONAL Nedra Kim Work Phone: [facility] 08-22-2023 14:30-0500 SaO2% (BldA) [Mass fraction] 100 % ADULT EDUCATION PROFESSIONAL Nedra Kim Work Phone: [facility] 08-22-2023 14:30-0500 Systolic blood pressure 103 mm[Hg] ADULT EDUCATION PROFESSIONAL Nedra Daniels Work Phone: [facility] 08-22-2023 11:55-0500 Body height 165.1 cm ADULT EDUCATION PROFESSIONAL Nedra Sanchezs Work Phone: [facility] 08-22-2023 11:55-0500 Body temperature 97.6 [degF] ADULT EDUCATION PROFESSIONAL Nedra Kim Work Phone: [facility] 08-22-2023 11:55-0500 Body weight 63.5 kg ADULT EDUCATION PROFESSIONAL Nedra Kim Work Phone: [facility] 08-11-2023 15:18-0500 Diastolic blood pressure 50 mm[Hg] ADULT EDUCATION PROFESSIONAL Nedra Kim Work Phone: [facility] 08-11-2023 15:18-0500 Heart rate 68 /min ADULT EDUCATION PROFESSIONAL Nedra Kim Work Phone: [facility] 08-11-2023 15:18-0500 Respiratory rate 16 /min ADULT EDUCATION PROFESSIONAL Nedra Kim Work Phone: [facility] 08-11-2023 15:18-0500 SaO2% (BldA) [Mass fraction] 100 % ADULT EDUCATION PROFESSIONAL Nedra Kim Work Phone: [facility] 08-11-2023 15:18-0500 Systolic blood pressure 105 mm[Hg] ADULT EDUCATION PROFESSIONAL Nedra Kim Work Phone: [facility] 08-11-2023 14:13-0500 Inhaled oxygen flow rate 2 L/min ADULT EDUCATION PROFESSIONAL Nedra Kim Work Phone: [facility] 08-11-2023 14:00-0500 Body temperature 98 [degF] ADULT EDUCATION PROFESSIONAL Nedra Kim Work Phone: [facility] 07-31-2023 13:44-0400 Body temperature 97.7 [degF] ADULT EDUCATION PROFESSIONAL Nedra Kim Work Phone: [facility] 07-31-2023 13:44-0400 Body weight 64.77 kg ADULT EDUCATION PROFESSIONAL Nedra Kim Work Phone: [facility] 07-31-2023 13:44-0400 Diastolic blood pressure 68 mm[Hg] ADULT EDUCATION PROFESSIONAL Nedra Kim Work Phone: [facility] 07-31-2023 13:44-0400 Heart rate 83 /min ADULT EDUCATION PROFESSIONAL Nedra Kim Work Phone: [facility] 07-31-2023 13:44-0400 Respiratory rate 20 /min ADULT EDUCATION PROFESSIONAL Nedra Kim Work Phone: [facility] 07-31-2023 13:44-0400 SaO2% (BldA) [Mass fraction] 98 % ADULT EDUCATION PROFESSIONAL Nedra Kim Work Phone: [facility] 07-31-2023 13:44-0400 Systolic blood pressure 110 mm[Hg] ADULT EDUCATION PROFESSIONAL Nedra Kim Work Phone: [facility] 06-23-2023 13:38-0400 Body temperature 97.5 [degF] ADULT EDUCATION PROFESSIONAL Nedra Kim Work Phone: [facility] 06-23-2023 13:38-0400 Body weight 64.95 kg ADULT EDUCATION PROFESSIONAL Nedra Kim Work Phone: [facility] 06-23-2023 13:38-0400 Diastolic blood pressure 71 mm[Hg] ADULT EDUCATION PROFESSIONAL Nedra Kim Work Phone: [facility] 06-23-2023 13:38-0400 Heart rate 87 /min ADULT EDUCATION PROFESSIONAL Nedra Kim Work Phone: [facility] 06-23-2023 13:38-0400 Inhaled oxygen flow rate 2 L/min ADULT EDUCATION PROFESSIONAL Nedra Kim Work Phone: [facility] 06-23-2023 13:38-0400 Respiratory rate 20 /min ADULT EDUCATION PROFESSIONAL Nedra Kim Work Phone: [facility] 06-23-2023 13:38-0400 SaO2% (BldA) [Mass fraction] 100 % ADULT EDUCATION PROFESSIONAL Nedra Kim Work Phone: [facility] 06-23-2023 13:38-0400 Systolic blood pressure 124 mm[Hg] ADULT EDUCATION PROFESSIONAL Nedra Sanchezs Work Phone: [facility] 06-23-2023 13:21-0400 Body height 165.1 cm ADULT EDUCATION PROFESSIONAL Nedra Kim Work Phone: [facility] Encounters Encounter Date Encounter Type Care Provider Facility Start: 07-19-2024 End: 07-22-2024 Refill Sonia Rosa WOOD CABINET FINISHER [facility] Start: 06-24-2024 Registered Recurring ADULT EDUCATION PROFESSIONAL Nedra Kim Work Phone: [facility] Work Phone: Start: 06-24-2024 End: 06-24-2024 ambulatory ADULT EDUCATION PROFESSIONAL Nedra Kim Work Phone: [facility] Work Phone: Start: 06-24-2024 End: 06-24-2024 Patient encounter procedure ADULT EDUCATION PROFESSIONAL Nedra Kim Work Phone: [facility] Work Phone: Start: 06-04-2024 End: 06-04-2024 ambulatory ADULT EDUCATION PROFESSIONAL Nedra Kim Work Phone: [facility] Work Phone: Start: 06-04-2024 End: 06-04-2024 Patient encounter procedure ADULT EDUCATION PROFESSIONAL Nedra Kim Work Phone: [facility] Work Phone: Start: 05-10-2024 Registered Recurring ADULT EDUCATION PROFESSIONAL Nedra Kim Work Phone: [facility] Work Phone: Start: 05-10-2024 End: 05-10-2024 ambulatory ADULT EDUCATION PROFESSIONAL Nedra Kim Work Phone: [facility] Work Phone: Start: 05-10-2024 End: 05-10-2024 Patient encounter procedure ADULT EDUCATION PROFESSIONAL Nedra Kim Work Phone: [facility] Work Phone: Start: 04-23-2024 End: 04-23-2024 ambulatory [facility] Start: 03-29-2024 Registered Recurring ADULT EDUCATION PROFESSIONAL Nedra [facility] Start: 03-29-2024 End: 03-29-2024 ambulatory ADULT EDUCATION PROFESSIONAL Nedra Kim Work Phone: [facility] Work Phone: Start: 03-29-2024 End: 03-29-2024 Patient encounter procedure ADULT EDUCATION PROFESSIONAL Nedra Kim Work Phone: [facility] Work Phone: Start: 01-30-2024 End: 01-30-2024 ambulatory [facility] Start: 12-29-2023 Registered Recurring ADULT EDUCATION PROFESSIONAL Nedra Kim Work Phone: [facility] Work Phone: Start: 12-29-2023 End: 12-29-2023 ambulatory ADULT EDUCATION PROFESSIONAL Nedra Kim Work Phone: [facility] Work Phone: Start: 12-29-2023 End: 12-29-2023 Patient encounter procedure ADULT EDUCATION PROFESSIONAL Nedra Kim Work Phone: [facility] Work Phone: Start: 12-26-2023 End: 12-26-2023 ambulatory [facility] Start: 12-26-2023 End: 12-26-2023 Office outpatient visit 15 minutes Nedra Kim ACCOUNTS PAYABLE OR RECEIVABLE CLERK-ADULT EDUCATION PROFESSIONAL Work Phone: [facility] Comment on above: Acute recurrent fron elena sinusitis (Primary Dx); Nausea and vomiting, unspecified vomiting type Start: 11-17-2023 Registered Recurring ADULT EDUCATION PROFESSIONAL Nedra Kim Work Phone: [facility] Work Phone: Start: 11-17-2023 End: 11-17-2023 ambulatory ADULT EDUCATION PROFESSIONAL Nedra Kim Work Phone: [facility] Work Phone: Start: 11-17-2023 End: 11-17-2023 Patient encounter procedure ADULT EDUCATION PROFESSIONAL Nedra Kim Work Phone: [facility] Work Phone: Start: 11-15-2023 External Result Encounter Aries Guzman Scott DO Work Phone: [facility] External Department Unsolicited Start: 11-15-2023 External Result Encounter Aries Woodruffmilo DO Work Phone: [facility] External Department Unsolicited Start: 10-26-2023 Registered Recurring ADULT EDUCATION PROFESSIONAL Nedra Kim Work Phone: [facility] Work Phone: Start: 10-26-2023 End: 10-26-2023 ambulatory ADULT EDUCATION PROFESSIONAL Nedra Kim Work Phone: [facility] Work Phone: Start: 10-26-2023 End: 10-26-2023 Patient encounter procedure ADULT EDUCATION PROFESSIONAL Nedra Kim Work Phone: [facility] Work Phone: Start: 10-20-2023 Non-patient / Non-visit ADULT EDUCATION PROFESSIONAL Cj Kim Work Phone: [facility] Work Phone: Start: 10-19-2023 Non-patient / Non-visit ADULT EDUCATION PROFESSIONAL Cj Kim [facility] Start: 10-19-2023 End: 10-24-2023 Evaluation and management of inpatient Marisel Rm Facility:[facility] Start: 10-12-2023 End: 10-12-2023 ambulatory [facility] Start: 10-05-2023 End: 10-05-2023 ambulatory ADULT EDUCATION PROFESSIONAL Nedra Sanchezs Work Phone: [facility] Work Phone: Start: 10-05-2023 End: 10-05-2023 Registered Recurring ADULT EDUCATION PROFESSIONAL Nedra Sanchezs Work Phone: [facility] Work Phone: Start: 10-05-2023 End: 10-05-2023 ambulatory ADULT EDUCATION PROFESSIONAL Nedra Sanchezs Work Phone: [facility] Work Phone: Start: 10-05-2023 End: 10-05-2023 Registered Recurring ADULT EDUCATION PROFESSIONAL Nedra Sanchezs Work Phone: [facility] Work Phone: Start: 09-12-2023 End: 09-12-2023 ambulatory ADULT EDUCATION PROFESSIONAL Nedra Sanchezs Work Phone: [facility] Work Phone: Start: 09-12-2023 End: 09-12-2023 Registered Recurring ADULT EDUCATION PROFESSIONAL Nedra Sanchezs Work Phone: [facility] Work Phone: Start: 08-28-2023 End: 08-28-2023 ambulatory ADULT EDUCATION PROFESSIONAL Nedra Sanchezs Work Phone: [facility] Work Phone: Start: 08-28-2023 End: 08-28-2023 Registered Recurring ADULT EDUCATION PROFESSIONAL Nedra Sanchezs Work Phone: [facility] Work Phone: Start: 08-22-2023 End: 08-22-2023 Admission to same day surgery center ADULT EDUCATION PROFESSIONAL Nedra Sanchezs Work Phone: [facility] [place] Work Phone: Start: 08-22-2023 End: 08-22-2023 ambulatory ADULT EDUCATION PROFESSIONAL Nedra Sanchezs Work Phone: [facility] Work Phone: Start: 08-11-2023 Registered Recurring ADULT EDUCATION PROFESSIONAL Nedra Sanchezs Work Phone: [facility] Work Phone: Start: 07-31-2023 End: 07-31-2023 ambulatory ADULT EDUCATION PROFESSIONAL Nedra Sanchezs Work Phone: [facility] Work Phone: Start: 07-31-2023 End: 07-31-2023 Registered Recurring ADULT EDUCATION PROFESSIONAL Nedra Kim Work Phone: [facility] Work Phone: Start: 07-26-2023 End: 07-26-2023 ambulatory [facility] Start: 06-23-2023 End: 06-23-2023 ambulatory ADULT EDUCATION PROFESSIONAL Nedra Sanchezs Work Phone: [facility] Work Phone: Start: 06-23-2023 End: 06-23-2023 Registered Recurring ADULT EDUCATION PROFESSIONAL Nedra Kim Work Phone: [facility] Work Phone: Start: 04-27-2023 ambulatory [place] Facility:[facility] Start: 02-28-2023 End: 03-01-[address] DOCTOR MÁRQUEZ Facility:[facility] Start: 02-09-2023 ambulatory [place] Facility:[facility] Start: 02-07-2023 End: 02-08-[address] DOCTOR MÁRQUEZ Facility:[facility] Start: 01-24-2023 End: 01-25-2023 Evaluation and management of inpatient DR FREDDY BARRAZA Facility:[facility] Procedures Date Procedure Procedure Detail Performing Clinician Start: 06-04-2024 COVID Antigen (POC) ADULT EDUCATION PROFESSIONAL Nedra Kim Work Phone: Start: 03-14-2024 Computed tomography of abdomen and pelvis with contrast ADULT EDUCATION PROFESSIONAL Nedra Kim Work Phone: Start: 03-14-2024 CT of thorax with contrast ADULT EDUCATION PROFESSIONAL Nedra Kim Work Phone: Start: 01-30-2024 Adult depression scr eening assessment Sonia Rosa WOOD CABINET FINISHER Start: 12-26-2023 Adult depression scr eening assessment Nedra Kim ACCOUNTS PAYABLE OR RECEIVABLE CLERK-ADULT EDUCATION PROFESSIONAL Work Phone: Start: 11-15-2023 Complete blood count with white cell differential, automated Aries Chavez DO Work Phone: Start: 10-31-2023 Duplex scan of lower limb veins ADULT EDUCATION PROFESSIONAL Nedra Kim Work Phone: Start: 10-24-2023 Stool culture Aries castro II Comment on above: Performed By: #### G I PROFILE, STL ####[facility] ,#### CUSTOOL, CDT ####[facility] [place] [address] [facility] Start: 10-19-2023 Antibody screen Aries Chavez II Comment on above: Result Comment: PERF ORMED BY:[facility] [place] [address] [place], [place] [id number] MEDICAL DIRECTORSTEFANO HOLT M.D. Start: 09-12-2023 Urine culture ADULT EDUCATION PROFESSIONAL Nedra Kim Work Phone: Start: 08-22-2023 Ultrasonic guidance for needle biopsy ADULT EDUCATION PROFESSIONAL Nedra Kim Work Phone: Start: 07-31-2023 Urine culture ADULT EDUCATION PROFESSIONAL Nedra Kim Work Phone: Start: 01-25-2023 Insertion of Infusio n Device into Right Femoral Vein, Percutaneous Approach DR FREDDY BARRAZA Start: 01-25-2023 Insertion of Endotra cheal Airway into Trachea, Via Natural or Artificial Opening DR FREDDY BARRAZA Plan of Treatment Date Care Activity Detail Author Start: 01-29-2025 Adult BMI Screening Adult BMI Screening [facility] Start: 01-29-2025 Depression Screening Depression Screening [facility] Start: 01-29-2025 Fall Risk Screening Fall Risk Screening [facility] Start: 01-29-2025 Tobacco Screening Tobacco Screening [facility] Start: 12-25-2024 Adult BMI Screening Adult BMI Screening [facility] Start: 12-25-2024 Depression Screening Depression Screening [facility] Start: 12-25-2024 Fall Risk Screening Fall Risk Screening [facility] Start: 12-25-2024 Tobacco Screening Tobacco Screening [facility] Start: 06-24-2024 [facility] Start: 06-22-2024 Medicare Annual Wellness Visit Medicare Annual Wellness Visit [facility] Start: 06-21-2024 [facility] Start: 06-02-2024 Influenza vaccination Influenza Vaccine [facility] Start: 05-10-2024 [facility] Start: 03-29-2024 [facility] Start: 03-29-2024 [facility] Start: 03-06-2024 [facility] Start: 01-18-2024 [facility] Start: 12-29-2023 [facility] Start: 12-28-2023 Erythropoietin (EPO) [Units/volume] in Serum or Plasma [facility] Start: 12-19-2023 [facility] Start: 12-07-2023 [facility] Start: 11-28-2023 [facility] Start: 11-17-2023 [facility] Start: 11-13-2023 [facility] Start: 10-26-2023 [facility] Start: 10-24-2023 [facility] Start: 10-24-2023 [facility] Start: 10-22-2023 Referral to palliative care physician [facility] Start: 10-20-2023 Administration of prophylactic treatment [facility] Start: 10-19-2023 Hospital admission [facility] Start: 10-19-[address] [facility] Start: 10-05-2023 [facility] Start: 10-04-2023 Adrenocorticotropic hormone measurement [facility] Start: 09-14-2023 [facility] Start: 09-14-2023 [facility] Start: 08-22-2023 [facility] Start: 08-22-2023 Ultrasonic guidance for needle biopsy [facility] Start: 08-11-2023 [facility] Start: 08-04-2023 [facility] Start: 07-31-2023 [facility] Start: 06-02-2023 Influenza vaccination Influenza Vaccine [facility] Start: 1973 Administration of varicella zoster vaccine Zoster (Shingles) Vaccine (1 of 2) [facility] Start: 1973 DTaP,Tdap and Td Vaccines (1 - Tdap) DTaP,Tdap and Td Vaccines (1 - Tdap) [facility] Start: 1972 Adult BMI Follow Up Plan Adult BMI Follow Up Plan [facility] Adrenocorticotropic hormone measurement [facility] Adrenocorticotropic hormone measurement [facility] Adrenocorticotropic hormone measurement [facility] Adrenocorticotropic hormone measurement [facility] Adrenocorticotropic hormone measurement [facility] Bacteria identified in Stool by Culture [facility] Bacterial cytolethal distending toxin cdt gene [Presence] in Unspecified specimen by BJORN with probe detection [facility] Bilirubin measurement, urine [facility] Campylobacter coli+jejuni+upsaliensis DNA [Presence] in Stool by BJORN with non-probe detection [facility] Color of Urine [facility] Comprehensive metabo lic 1999 panel - Serum or Plasma [facility] Comprehensive metabo lic 1999 panel - Serum or Plasma [facility] Comprehensive metabo lic 1999 panel - Serum or Plasma [facility] Comprehensive metabo lic 1999 panel - Serum or Plasma [facility] Comprehensive metabo lic 1999 panel - Serum or Plasma Comprehensive metabolic panel Lab STAT 11/15/2023 9:16 AM EST [facility] [employer] Work Phone: Comprehensive metabo lic 1999 panel - Serum or Plasma [facility] Comprehensive metabo lic 1999 panel - Serum or Plasma [facility] Comprehensive metabo lic 1999 panel - Serum or Plasma [facility] Comprehensive metabo lic 2000 panel - Serum or Plasma [facility] Cortisol Cortisol Lab STA T 11/15/2023 9:16 AM EST [facility] CT Abdomen and Pelvi s W contrast IV [facility] CT Abdomen and Pelvi s W contrast IV [facility] CT Abdomen and Pelvi s W contrast IV [facility] CT Abdomen and Pelvi s W contrast IV [facility] CT Chest W contrast IV [facility] CT Chest W contrast IV [facility] CT Chest W contrast IV [facility] CT guided biopsy [facility] Detection of hemoglobin [facility] EKG 12 channel panel [facility] Erythropoietin (EPO) [Units/volume] in Serum or Plasma [facility] Escherichia coli enteropathogenic eae gene [Presence] in Stool by BJORN with non-probe [facility] Escherichia coli enterotoxigenic ltA+st1a+st1b genes [Presence] in Stool by BJORN with [facility] Escherichia coli O15 7 DNA [Presence] in Stool by BJORN with non-probe detection [facility] Escherichia coli Stx 1 and Stx2 toxin stx1+stx2 genes [Presence] in Stool by BJORN with non-probe detection [facility] Glucose [Mass/volume ] in Urine by Test strip [facility] Hepatic function panel [facility] Infectious agent gen otype identification [facility] Measurement of keton es in urine using dipstick [facility] Patient Education [facility] Kidney Biopsy [facility] Work Phone: Patient referral [facility] Work Phone: Plesiomonas shigello ides DNA [Presence] in Stool by BJORN with non-probe detection [facility] Protein measurement, urine [facility] Salmonella enterica+ bongori DNA [Presence] in Stool by BJORN with non-probe detection [facility] Shigella species+EIE C invasion plasmid antigen H ipaH gene [Presence] in Stool by BJORN [facility] Urinalysis, specific gravity measurement [facility] Urine dipstick for nitrite [facility] Urine dipstick for s pecific gravity [facility] Urine pH test [facility] Urobilinogen concent ration, test strip measurement [facility] US Lower extremity v ein - bilateral [facility] Vibrio cholerae DNA [Presence] in Stool by BJORN with non-probe detection [facility] Vibrio cholerae+parahaemolyticus+vul nificus DNA [Presence] in Stool by BJORN with non-probe detection [facility] Immunizations Immunization Date Immunization Notes Care Provider Fa cili 07-27-2021 Influenza Vaccine, Quadrivalent, Adjuvanted Nedra Kim ACCOUNTS PAYABLE OR RECEIVABLE CLERK-ADULT EDUCATION PROFESSIONAL [facility] 07-27-2021 influenza virus vaccine, unspecified formulation Nedra Kim ACCOUNTS PAYABLE OR RECEIVABLE CLERK-ADULT EDUCATION PROFESSIONAL Work Phone: [employer] 09-21-2020 COVID-19, mRNA, LNP- S, PF, 100mcg/0.5mL Dose Nedra Kim ACCOUNTS PAYABLE OR RECEIVABLE CLERK-ADULT EDUCATION PROFESSIONAL Work Phone: [facility] Payers Date Payer Category Payer Self-pay 2019 Managed Care Other (unspecified) [facility] [id number] 2019 Medicare [id number] 2019 Unknown [id number] 2019 Unknown [id number] 1959 Medicare [id number] 1959 Unknown [id number] 1954 Unknown [id number] [id number] 1954 Unknown [id number] [id number]. 2.727 1954 Unknown [id number]. [id number] 1954 Unknown [id number] [id number]. [id number] 1954 Unknown [id number] [id number]. [id number] 1954 Unknown [id number] [id number]. 2.1286 1954 Unknown [id number] [id number]. 2.1286 Unknown [id number] [id number]. 2.531 Unknown [id number] [id number]. 2.531 Unknown [id number] 2.531 Social History Date Type Detail Facility Start: 06-23-2023 End: 01-30-2024 Tobacco smoking status NYIS Ex-smoker (finding) [facility] Start: 1955 Sex Assigned At Female [facility] Tobacco smoking stat us [facility] Tobacco smoking consumption unknown [facility] Start: 1955 Sex Assigned At Not on file [facility] Start: 06-22-2023 End: 01-30-2024 Gender identity Not on file [facility] History of tobacco use Current smoker [facility] History of tobacco use Cigarette Smoker P [facility] Start: 02-07-2023 End: 01-30-2024 Tobacco use and exposure Smokeless tobacco non-user [facility] Start: 12-26-2023 End: 01-30-2024 Alcohol intake Lifetime non-drinker (finding) [facility] Start: 06-22-2023 End: 01-30-2024 History of Social function [facility] Do you belong to any clubs or organizations such as advent groups, unions, fraternal or athletic groups, or school groups? No [facility] Are you now , , , , never or living with a partner? [facility] How often to you hav e a drink containing alcohol? Never [facility] How many standard dr inks containing alcohol do you have on a typical day? Patient does not drink [facility] How hard is it for y ou to pay for the very basics like food, housing, medical care, and heating Not very hard [facility] Do you feel stress - tense, restless, nervous, or anxious, or unable to sleep at night because your mind is troubled all the time - these days [OSQ] Only a little [facility] Start: 11-18-2020 Sex Female (finding) [facility] Goals Date Patient Goal Desired Activity /State Clinical Notes 01-25-2023 to 04-23-2024 Note Date & Type Note Facility 04-23-2024 Note Cardiovascular Medic [facility] SUBJECTIVE Chief Complaint Patient presents [...] (CMS/HCC) Past Medical History: Diagnosis Date Cancer ([facility]/HCC) CHF (congestive heart failure) (CMS/HCC) COPD (chronic obstructive pulmonary disease) ([facility]/HCC) NSTEMI (non-ST elevated myocardial infarction) ([facility]/HCC) PNA (pneumonia) Tuberculosis Family History Problem Relation [...] is soft. Musculos (more content not included)... [facility] 04-23-2024 Note Patient here for 6 m [...] All other systems reviewed and are negative. [facility] 12-29-2023 Progress note Note Date/Time December 29, 2023 8:50am [facility] [place] [address] Cancer Center Note Signed Patient: Perla Ibarra MR# : [id number] : 1955 Acct:[id number] Age/Sex: 68 / F Type: REG AMB Date of Service: 12/29/23 Copies to: DEIDRE Barrett~ Assessment & Plan A/P (1) Clear cell renal cell carcinoma: Plan Right renal Cancer, 66i5g02 cm with extension into right renal vein and inferiorvena cava.. 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 Has seen Dr. Ann in [place] for consideration of nephrectomy. Determined not a [...] Xanax as needed. 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 Also follows with Dr. Cervantes and Dr. Quach of urology. She had a hospitalization in December 2022 and ultimately was life flighted to [facility] for a myocardial infarction and ischemic heart [...] medication 2 days ago. She presented to [facility] where she was hydrated and subsequently transferred to [facility]. --She specifically denies any anginal chest pain, but does note some dyspnea that started a few days after starting the axitinib. She notes that she was shaking all over but did not fall to the ground or lose consciousness therefore it was not felt to be a seizure. 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 -- At [place] [facility] she was noted to have white [...] up to inpatient stay.She was hospitalized at [facility] from 10/19/2023-10/25/2023 for headache, abdominal pain, hyponatremia, [...] Reasons: 6 wk f/u with scans at [place], Clear cell renal cell carcinoma Accompanied by: [...] for a 6 week follow up with [facility] labs and outside imaging for review. Has treatment today. [facility] Medical History Medical History Hyponatremia Chronic hypoxic respiratory failure 2 L Oxygen via NC at all times. Tuberculosis sealer dry cell Myocardial infarct COPD (chronic obstructive pulmonary disease) [...] signed by Aries Chavez II, DO> 12/29/23 0926 [facility] Work Phone: 1(309) 763-427903-26-2024 History of Present illness Narrative* Nedra Kim, ACCOUNTS PAYABLE OR RECEIVABLE CLERK-ADULT EDUCATION PROFESSIONAL - 12/26/2023 3:00 PM EDT Subjective Patient [...] KAVITA Watson 12/26/23 1726 [facility]Cardiovascular Medicine [facility] SUBJECTIVE Chief Complaint Patient presents with Congestive [...] (H) 01/30/2023 10/04/2023 Gl (more content not included)...[facility]01-11-2024 NotePatient here for 6 mo follow up CAD, chronic systolic heart failure, and hypertension. She denies chest pain, palpitations, and lightheadedness. Taking a new chemo pill now for renal cell carcinoma. Review of Systems Constitutional: Positive for malaise/fatigue. Cardiovascular: Positive for dyspnea on exertion. All other systems reviewed and are negative.[facility] 09-12-2023 Progress note Author Nedra Sarai [facility] September 12, 2023 4:38pm Note Date/Time September 12, 2023 2:13pm 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 Right renal mass, 64s8q32 cm with extension into right renal vein and inferior vena cava.. Has seen Dr. Ann in [place] for consideration of nephrectomy. 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 Also follows with Dr. Cervantes and Dr. Quach of urology. She had a hospitalization in December 2022 and ultimately was life flighted to [facility] for a myocardial infarction and ischemic heart [...] for coordination of care (as documented) and [id number] counseling of patient and/or family. [facility] - Medical History Medical History: Medical History (Last Reviewed 08/22/23 @ 11:55 by Cecilia Harris RN) Acute coronary syndrome Acute respiratory failure with hypoxia and hypercapnia Acute systolic heart failure COPD (chronic obstructive pulmonary disease) Myocardial infarct Parainfluenza infection Tuberculosis sealer dry cell - Family History Family History: Family History [...] <Electronically signed by CHAD Moon> 09/12/23 1638 [facility] Work Phone: 1(980) 567-321112-05-2023 Progress note Author Aries Chavez [facility] September 05, 2023 11:33am Note Date/Time August 28, 2023 1:16pm [facility] [place] [address] Hem/Onc Follow Up Note - OP Signed Patient: Perla Ibarra MR# : [id number] : 1955 Acct:[id number] Age/Sex: 68 / F Type: REG RCR Copies to: DEIDRE Barrett SELF,REFERRAL ~ Date of Service: 08/28/2023 Time of Service: 13:15 - Assessment & Plan (1) Renal mass Plan: 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 Right renal mass, 15*9*12 cm with extension into right renal vein and inferior vena cava.. Has seen Dr. Ann in [place] for consideration of nephrectomy. 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 Also follows with Dr. Cervantes and Dr. Quach of urology. She had a hospitalization in December 2022 and ultimately was life flighted to [facility] for a myocardial infarction and ischemic heart [...] for coordination of care (as documented) and [id number]-ehmt counseling of patient and/or family. [facility] - Medical History Medical History: Medical History (Last Reviewed 08/22/23 @ 11:55 by Cecilia Harris RN) Acute coronary syndrome Acute respiratory failure with hypoxia and hypercapnia Acute systolic heart failure COPD (chronic obstructive pulmonary disease) Myocardial infarct Parainfluenza infection Tuberculosis sealer dry cell - Family History Family History: Family History [...] 1315 Signed By: <Electronically signed by Aries Chavez, II, DO> 09/05/23 1133 [facility] Work Phone: 1(548) 754-673510-30-2023 Progress note Author Aries Chavez [facility] July 31, 2023 2:29pm Note Date/Time July 31, 2023 1 :59pm [facility] [place] [address] Hem/Onc Follow Up Note - OP Signed Patient: Perla Ibarra MR# : [id number] : 1955 Acct:[id number] Age/Sex: 67 / F Type: REG RCR Copies to: DEIDRE Barrett SELF,REFERRAL ~ Date of Service: 07/31/2023 Time of Service: 13:59 - Assessment & Plan (1) Renal mass Plan: Right renal mass, 15*9*12 cm with extension into right renal vein and inferior vena cava.. Likely a neoplasm. Has seen Dr. Ann in [place] for consideration of nephrectomy. No definitive retroperitoneal [...] start here, if not salazar is reasonable, [place]. f/u after. check ua and culture. offer her bactrim DS one tab bid x 10 days. get images uploaded to our system from [employer]. iv iron soon. 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 Also follows with Dr. Cervantes and Dr. Quach of urology. She had a hospitalization in December 2022 and ultimately was life flighted to [facility] for a myocardial infarction and ischemic heart [...] for coordination of care (as documented) and lixr-ae-wegc counseling of patient and/or family. [facility] - Medical History Medical History: Medical History (Last Reviewed 06/23/23 @ 13:30 by Elayne Taylor) Acute coronary syndrome Acute respiratory failure with hypoxia and hypercapnia Acute systolic heart failure COPD (chronic obstructive pulmonary disease) Myocardial infarct Parainfluenza infection Tuberculosis sealer dry cell - Family History Family History: Family History [...] by Aries Chavez II DO> 07/31/23 1429 [facility] Work Phone: 1([phone]) 435-594210-25-2023 NoteAddendum to follow. Maddie [facility] Progress note Author Aries Chavez [facility] July 11, 2023 1:21pm Note Date/Time June 23, 2023 1:54pm [facility] [place] [address] Hem/Onc Follow Up Note - OP Signed Patient: Perla Ibarra MR# : [id number] : 1955 Acct:[id number] Age/Sex: 67 / F Type: REG RCR [...] with Dr. Ann who is now with [facility]. No definitive retroperitoneal lymphadenopathy. Extensive [...] MRI and ct images to here from [facility]. refer to [facility] at [facility]. f/u with me in a month (after imaging). get an CT a/p with contrast in a month at [facility]. 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 Also follows with Dr. Cervantes and Dr. Quach of urology. She had a hospitalization in December 2022 and ultimately was life flighted to [facility] for a myocardial infarction and ischemic heart [...] for coordination of care (as documented) and [id number]-ku-[id number] counseling of patient and/or family. [facility] - Medical History Medical History: Medical History (Last Reviewed 06/23/23 @ 13:30 by Elayne Taylor) Acute coronary syndrome Acute respiratory failure with hypoxia and hypercapnia Acute systolic heart failure COPD (chronic obstructive pulmonary disease) Myocardial infarct Parainfluenza infection Tuberculosis sealer dry cell - Family History Family History: Family History [...] by Aries Chavez II, DO> 07/11/23 1321 [facility] Work Phone: 1(168) 306-904804-26-2023 NotePROCEDURE: XR CHEST 1 V DATE: 01/25/2023 [...] Electronically authenticated by: ANTONY VELASQUEZ Date: 2023-01-25 15:11[facility] noteNo assessment information available[facility] Work Phone: Evaluation note* Diagnosis Onset Date Resolution Status Renal mass acute [facility] Work Phone: Evaluation note* Diagnosis Onset Date Resolution Status Clear cell renal cell carcinoma acute Encounter for antineoplastic chemotherapy acute Hyponatremia acute Iron deficiency anemia acute [facility] Work Phone: Evaluation note* Diagnosis Onset [...] deficiency anemia acute Nonischemic cardiomyopathy a cute [facility] Work Phone: Evaluation note* Diagnosis Onset [...] acute Hyponatremia acute Iron deficiency anemia acute [facility] Work Phone: Evaluation note* Diagnosis Onset [...] acute Iron deficiency anemia acute Hyponatremia resolved [facility] Work Phone: Evaluation note* Diagnosis Acute recurrent frontal sinusitis- Primary Nausea and vomiting, unspecified vomiting type [facility] Diagnosis Onset Date Resolution [...] acute Iron deficiency anemia acute Hyponatremia resolved [facility] Work Phone: Evaluation note* Diagnosis Onset Date Resolution Status Clear cell renal cell carcinoma acute Encounter for antineoplastic chemotherapy acute Iron deficiency anemia acute Hyponatremia resolved [facility] Work Phone: Evaluation note* Diagnosis Onset Date Resolution Status Clear cell renal cell carcinoma acute Encounter for antineoplastic chemotherapy acute Iron deficiency anemia acute Hyponatremia resolved Contact with and (suspected) exposure to covid-19 noneactive [facility] Work Phone: Evaluation note* Diagnosis Onset Date Resolution Status COVID-19 noneactive Contact with and (suspected) exposure to covid-19 noneactive Clear cell renal cell carcinoma acute Encounter for antineoplastic chemotherapy acute Iron deficiency anemia acute Hyponatremia resolved [facility] Work Phone: Hospital Discharge instructions Additional Instructions Continue home oxygen as directed.[facility] Work Phone: InstructionsNot on filedocumented in this encounter [facility]ructionsNot on filedocumented in this encounter [facility] note Author Aries Chavez [facility] July 31, 2023 2:29pm Note Date/Time July 31, 2023 1 :59pm [facility] [place] [address] Hem/Onc Follow Up Note - OP Signed Patient: Perla Ibarra MR# : [id number] : 1955 Acct:[id number] Age/Sex: 67 / F Type: REG RCR Copies to: DEIDRE Barrett SELF,REFERRAL ~ Date of Service: 07/31/2023 Time of Service: 13:59 - Assessment & Plan (1) Renal mass Plan: Right renal mass, 15*9*12 cm with extension into right renal vein and inferior vena cava.. Likely a neoplasm. Has seen Dr. Ann in [place] for consideration of nephrectomy. No definitive retroperitoneal [...] get images uploaded to our system from [employer] iv iron soon. 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 Also follows with Dr. Cervantes and Dr. Quach of urology. She had a hospitalization in December 2022 and ultimately was life flighted to [facility] for a myocardial infarction and ischemic heart [...] for coordination of care (as documented) and [id number] counseling of patient and/or family. [facility] - Medical History Medical History: Medical History (Last Reviewed 06/23/23 @ 13:30 by Elayne Taylor) Acute coronary syndrome Acute respiratory failure with hypoxia and hypercapnia Acute systolic heart failure COPD (chronic obstructive pulmonary disease) Myocardial infarct Parainfluenza infection Tuberculosis sealer dry cell - Family History Family History: Family History [...] by Aries Chavez II, DO> 07/31/23 1429 [facility] Work Phone: Progress note Author Vannessa Perales [facility] October 05, 2023 2:09pm Note Date/Time October 05, 2023 1: 55pm [facility] [place] [address] Hem/Onc Follow Up Note - OP Signed Patient: Perla Ibarra MR# : [id number] : 1955 Acct:[id number] Age/Sex: 68 / F Type: REG RCR [...] Xanax as needed. 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 Also follows with Dr. Cervantes and Dr. Quach of urology. She had a hospitalization in December 2022 and ultimately was life flighted to [facility] for a myocardial infarction and ischemic heart [...] point review of systems is negative. [facility] - Medical History Medical History: Medical History (Last Reviewed 08/22/23 @ 11:55 by Cecilia Harris RN) Acute coronary syndrome Acute respiratory failure with hypoxia and hypercapnia Acute systolic heart failure COPD (chronic obstructive pulmonary disease) Myocardial infarct Parainfluenza infection Tuberculosis sealer dry cell - Family History Family History: Family History [...] % (Auto) 61.7, Lymph % (Auto) 21.7, Grimes % (Auto) 11.5, Eos % (Auto) 2.8, Baso % (Auto) 2.3, Nucleat RBC Rel Count 0.1, Neut # (Auto) 3.6, Lymph # (Auto) 1.2, Grimes # (Auto) 0.7, Eos # (Auto) 0.2, Baso # (Auto) 0.1 10/04/23 14:53: ACTH 25.4 10/04/23 14:53: Free T4 1.00, TSH 3rd Generation 1.03, Total Cortisol 12.2 Assessment and Plan (1) 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 Right renal mass, [id number] cm with extension into right renal vein and inferior vena cava.. Has seen Dr. Ann in [place] for consideration of nephrectomy. Determined not a [...] for coordination of care (as documented) and [id number] counseling of patient and/or family. Dictated By: Vannessa Perales APRN DD/ [id number] Signed By: <Electronically signed by CHAD Perales> 10/05/23 3287 [facility] Work Phone: Progress note Author Aries Chavez [facility] March 29, 2024 10:13am Note Date/Time March 29, 2024 9:[address] [facility] [address] Cancer Center Note Signed Patient: Perla Ibarra MR# : [id number] : 1955 Acct:[id number] Age/Sex: 68 / F Type: REG AMB [...] Present Illness HPI Assessment/Plan. Right renal Cancer, [id number] cm with extension into right renal vein and inferiorvena cava.. 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 Has seen Dr. Ann in [place] for consideration of nephrectomy. Determined not a [...] Xanax as needed. 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 Also follows with Dr. Cervantes and Dr. Quach of urology. She had a hospitalization in December 2022 and ultimately was life flighted to [facility] for a myocardial infarction and ischemic heart [...] medication 2 days ago. She presented to [facility] where she was hydrated and subsequently transferred to [facility]. --She specifically denies any anginal chest pain, but does note some dyspnea that started a few days after starting the axitinib. She notes that she was shaking all over but did not fall to the ground or lose consciousness therefore it was not felt to be a seizure. 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 -- At [facility] she was noted to have white [...] up to inpatient stay.She was hospitalized at [facility] from 10/19/2023-10/25/2023 for headache, abdominal pain, hyponatremia, [...] Diarrhea - Last Reconciled 03/29/24 by Elayne Taylor aspirin 81 mg PO [...] with labs and imaging for review. [facility] Medical History Medical History Hyponatremia Chronic hypoxic respiratory failure 2 L Oxygen via NC at all times. Tuberculosis sealer dry cell Myocardial infarct COPD (chronic obstructive pulmonary disease) [...] signed by Aries Chavez II, DO> 03/29/24 [facility] Work Phone: Summary Purpose Family History Relationship Condition Age at Onset Recorded Date/T [...] grandfather Neoplasm of brain Unknown Advance Directives Advance Directive Response Recorded Date/ Time Advance [...] Documentation 6 wk f/u with scans at [facility] Renal Mass N28.89 Reason for Visit Cancer [...] deficiency anemia Hyponatremia Chief Complaint Review scans .13.2 4 15 wk f/u with scans Renal Mass N28.89 Reason for Visit Clear cell renal cayden l carcinoma Encounter for antineoplastic chemotherapy Iron deficiency anemia Hyponatremia Chief Complaint Review scans .13.2 4 15 wk f/u with scans Renal Mass N28.89 Positive covid test Reason for Visit Clear cell renal cayden l carcinoma Encounter for antineoplastic chemotherapy Iron deficiency anemia Hyponatremia Contact with and (suspected) exposure to covid-19 Chief Complaint Review scans 06.13.2 4 15 wk f/u with scans Positive covid test 6 Wk follow up Renal Mass N28.89 Reason for Visit COVID-19 Contact with and (suspected) exposure to covid-19 Clear cell renal cell carcinoma Encounter for antineoplastic chemotherapy Iron deficiency anemia Hyponatremia Additional Source Comments INFORMATION SOURCE (unrecogn ized section and content) DATE CREATED AUTHOR 02/10/20[address] Arturo London [facility] DATE CREATED AUTHOR AUTHOR'S ORGANIZ ATION 03/13/2023 [facility] DATE CREATED AUTHOR AUTHOR'S ORGANIZ ATION 01/31/2024 [facility] DATE CREATED AUTHOR AUTHOR'S ORGANIZ ATION 05/24/2024 [facility] DATE CREATED AUTHOR AUTHOR'S ORGANIZ ATION 07/04/2024 [facility] Care Teams (unrecognized sec tion and content) Team Status: Active Member Role Status Dates DEIDRE Barrett Primary Care Provider Active Team Status: Inactive Member Role Status Dates DEIDRE Barrett Primary Care Provider Active S tart: March 29, 2024 End: March 29, 2024 Aries Chavez II, DO Attending Provider Active Start: March 29, 2024 End: March 29, 2024 Team Status: Active Member Role Status Dates Aries Chavez II, DO Attending Provider Active Start: March 29, 2024 DEIDRE Barrett Primary Care Provider Active S tart: March 29, 2024 Referral Self Referring Provider Active Start: Thomas alexandra 2023 Team Status: Active Member Role Status Dates DEIDRE Barrett Primary Care Provider Active S tart: October 19, 2023 Noe Jacobs DO Admit Provider , Attending Provider, Other Provider Active Start: October 19, 2023 Marisel Abdalla MD Other Provider Active Start: Aryan bermudez 2023 Aries Chavez II, DO Other Provider Active Start: October 19, 2023 Vannessa Perales APRN Other Provider Active Start: October 19, 2023 Tosin Lima MD Other Provider Active Start: Thomas alexander 2023 Ileana Joshi MD Other Provider Active Start: Thomas alexander 2023 Zoie Jansen Other Provider Active Start: Marlo umanzor 2023 Ariana Bell MD Other Provider Active [...] Status: Active Member Role Status Dates Nedra Kim , ADULT EDUCATION PROFESSIONAL Primary Care Provider Active S tart: October 20, 2023 Marisel Abdalla MD Attending Provider Active Start: October 20, 2023 Team Status: Inactive Member Role Status Dates Nedra Kim , ADULT EDUCATION PROFESSIONAL Primary Care Provider Active S tart: October 26, 2023 End: October 26, 2023 Vannessa Perales APRN Attending Provider Active Start: October 26, 2023 End: October 26, 2023 Team Status: Inactive Member Role Status Dates Nedra Kim ADULT EDUCATION PROFESSIONAL Primary Care Provider Active S tart: November 17, 2023 End: November 17, 2023 Aries Chavez II, DO Attending Provider Active Start: November 17, 2023 End: November 17, 2023 Team Status: Inactive Member Role Status Dates Nedra Kim , ADULT EDUCATION PROFESSIONAL Primary Care Provider Active S tart: December 29, 2023 End: December 29, 2023 Aries Chavez II, DO Attending Provider Active Start: December 29, 2023 End: December 29, 2023 Team Status: Active Member Role Status Dates Aries Chavez II, DO Attending Provider Active Start: December 29, 2023 Nedra Kim ADULT EDUCATION PROFESSIONAL Primary Care Provider Active S tart: December 29, 2023 Referral Self Referring Provider Active Start: Nicole zamora 2023 Team Status: Inactive Member Role Status Dates Nedra Kim , ADULT EDUCATION PROFESSIONAL Primary Care Provider Active S tart: August 22, 2023 End: August 22, 2023 Aries J Adamowicz II, DO Attending Provider Active Start: August 22, 2023 End: August 22, 2023 Team Status: Active Member Role Status Dates Aries Chavez II, DO Attending Provider Active Start: October 05, 2023 DEIDRE Barrett Primary Care Provider Active S tart: October 05, 2023 Referral Self Referring Provider Active Start: J anuary 2023 Team Status: Active Member Role Status Dates Aries Chavez II, DO Attending Provider Active TIMOTHY BarrettP Primary Care Provider Active Referral Self Referring Provider Active Team Status: Inactive Member Role Status Dates TIMOTHY BarrettP Primary Care Provider Active Aries Chavez II, [...] Referral Self Referring Provider Active Start: F danielruary 2023 Babbitt Spinner Relationship Specialty Start Date End Date Nedra Kim APRN-ADULT EDUCATION PROFESSIONAL [address] [place] [address] PCP - General Internal Medicine 02/09/23 Team Status: Inactive Member Role Status Dates DEIDRE Barrett Primary Care Provider Active S tart: May 10, 2024 End: May 10, 2024 Aries Chavez II DO Active S tart: May 10, 2024 End: May 10, 2024 Nedra Mono APRN Attending Provider Acti ve Start: May 10, 2024 End: May 10, 2024 Team Status: Active Member Role Status Dates Aries Chavez II, DO Attending Provider Active Start: May 10, 2024 DEIDRE Barrett Primary Care Provider Active S tart: May 10, 2024 Referral Self Referring Provider Active Start: A ugust 2023 Team Status: Inactive Member Role Status Dates Nedra Kim , ADULT EDUCATION PROFESSIONAL Primary Care Provider Active S tart: June 04, 2024 End: June 04, 2024 Elayne James APRN Attending Provider Active Start: June 04, 2024 End: June 04, 2024 Team Status: Inactive Member Role Status Dates Nedra Kim , ADULT EDUCATION PROFESSIONAL Primary Care Provider Active S tart: June 24, 2024 End: June 24, 2024 Aries Chavez II, DO Attending Provider Active Start: June 24, 2024 End: June 24, 2024 Team Status: Active Member Role Status Dates Aries Chavez II, DO Attending Provider Active Start: June 24, 2024 Nedra Kim , ADULT EDUCATION PROFESSIONAL Primary Care Provider Active S tart: June 24, 2024 Referral Self Referring Provider Active Start: S yung 2023 Babbitt Spinner Relationship Specialty Start Date End Date Kelli Baron APRN-HEALTH AND SAFETY INSTRUCTOR [address] [place] [address] PCP - General Family Medicine 03/29/24 Goals (unrecognized section and content) Goals may be documented in a n alternate sectionGoals may be documented in an alternate sectionNot on filedocumented as of this encounterNot on filedocumented as of this encounter Reason for Visit (unrecogniz ed section and content) Reason Comments Nasal Congestion No covid Reason Onset Date Comments Med Refill 07/19/2024 FOR RECORDS PERTAINING TO PATIENTS WHO ARE [...] BE BASED ON THE PRIMARY CLINICAL RECORDS. [employer] [facility]. provides no warranty or guarantee of the accuracy or completeness of information in this document.
[2024-08-02 09:39] LABS: Alanine Aminotransferase 14 U/L (14-59); Albumin Globulin Ratio 0.6; Albumin Level 2.9 g/dL (3.4-5.0); Alkaline Phosphatase 91 U/L (46-116); Anion Gap 13.6; Aspartate Amino Transferase 19 U/L (15-37); BUN Creatinine Ratio 13.3; Bilirubin Total 0.4 mg/dL (0.2-1.0); Calcium 8.7 mg/dL (8.5-10.1); Carbon Dioxide 25.6 mmol/L (21.0-32.0); Chloride 99 mmol/L (98-107); Estimated GFR (African America >60 (>=60 mL/min/1.73m^2); Estimated GFR (Non-African Ame 52 (>=60 mL/min/1.73m^2); Globulin 4.6 g/dL; Glucose 94 mg/dL (74-106); Potassium 4.2 mmol/L (3.5-5.1); Sodium 134 mmol/L (136-145); Thyroid Stimulating Hormone 12.361 uIU/mL (0.358-3.740); Total Protein 7.5 g/dL (6.4-8.2)
[2024-08-02 10:10] LABS: Free T4 1.19 ng/dL (0.76-1.46)
[2024-08-03 12:09] LABS: ACTH, Plasma 64.5 pg/mL (7.2-63.3)
== END 2024-08-02 08:55 | disposition home or self-care (01) ==
LOC: LAB 08:54
PROVIDERS: PCP Nurse Practitioner Family; Visit Provider Internal Medicine
DX: C64.9 Malignant neoplasm of unspecified kidney, except renal pelvis (principal)
CPT/HCPCS: 36415; 80053; 82024; 82533; 84439; 84443; 85025

== ENCOUNTER 2024-09-12 08:50 | Outpatient (OUT) | payer MEDICARE, OTHER, SELFPAY ==
[2024-09-12 09:14] LABS: Basophils Absolute Auto 0.1 10^3/uL (0.0-0.1); Basophils Percent Auto 1.6 % (0.2-2.0); Eosinophils Absolute Auto 0.8 10^3/uL (0.0-0.7); Eosinophils Percent Auto 11.1 % (0.9-7.0); Hematocrit 35.4 % (36.0-48.0); Hemoglobin 11.4 g/dL (12.0-16.0); Immature Granulocytes Abs Auto 0.01 10^3/uL (0.00-0.03); Immature Granulocytes Pct Auto 0.1 % (0.0-0.5); Lymphocytes Absolute Auto 1.2 10^3/uL (1.2-3.8); Lymphocytes Percent Auto 16.7 % (20.5-60.0); Mean Corpuscular HGB Conc 32.2 g/dL (29.9-35.2); Mean Corpuscular Hemoglobin 29.4 pg (26.7-34.0); Mean Corpuscular Volume 91.2 fL (81.0-99.0); Mean Platelet Volume 10.2 fL (9.5-13.5); Monocytes Absolute Auto 0.9 10^3/uL (0.3-0.8); Monocytes Percent Auto 12.8 % (1.7-12.0); Neutrophils Percent Auto 57.7 % (43.0-75.0); Platelet Count 244 10^3/uL (150-450); Red Blood Count 3.88 10^6/uL (4.20-5.40); Red Cell Distribution Width 12.4 % (11.0-15.0)
[2024-09-12 10:22] LABS: Free T4 1.42 ng/dL (0.76-1.46)
[2024-09-12 11:36] LABS: Alanine Aminotransferase 15 U/L (14-59); Albumin Globulin Ratio 0.7; Alkaline Phosphatase 93 U/L (46-116); Anion Gap 11.3; Aspartate Amino Transferase 13 U/L (15-37); Bilirubin Total 0.4 mg/dL (0.2-1.0); Calcium 8.8 mg/dL (8.5-10.1); Carbon Dioxide 28.1 mmol/L (21.0-32.0); Chloride 101 mmol/L (98-107); Estimated GFR (African America >60 (>=60 mL/min/1.73m^2); Estimated GFR (Non-African Ame 51 (>=60 mL/min/1.73m^2); Globulin 4.5 g/dL; Glucose 92 mg/dL (74-106); Potassium 4.4 mmol/L (3.5-5.1); Sodium 136 mmol/L (136-145); Thyroid Stimulating Hormone 6.048 uIU/mL (0.358-3.740); Total Protein 7.5 g/dL (6.4-8.2)
[2024-09-13 14:08] LABS: ACTH, Plasma 28.1 pg/mL (7.2-63.3)
== END 2024-09-12 08:51 | disposition home or self-care (01) ==
PROVIDERS: PCP Nurse Practitioner Family; Visit Provider Internal Medicine
DX: C64.9 Malignant neoplasm of unspecified kidney, except renal pelvis (principal); Z79.899 Other long term (current) drug therapy
CPT/HCPCS: 36415; 80053; 82024; 82533; 84439; 84443; 85025

== ENCOUNTER 2024-10-23 08:38 | Outpatient (OUT) | payer MEDICARE, OTHER, SELFPAY ==
--- OUTSIDE RECORDS SUMMARY | 2024-10-23 08:49 | XMS_ITS | CCD ---
Author Organization [facility] Care Team Providers Care Terrazzo 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 Name Role Phone Chantal Park Attending Unavailable KUNTony, NEDRA Referring Unavailable Chantal Park Attending Unavailable NALLELYEBER, DR FREDDY Mcclendon Consulting Unavailable MISC, DR [...] DO Aries Chavez II Attending Provider Daniel [facility] R Primary Care Provider Self, Referral Referring Provider Unavailable DO Aries Chavez II Attending Provider Chris, [facility] R Primary Care Provider Self, Referral Referring Provider Unavailable DO Aries Chavez II Attending Provider Daniel, [facility] R Primary Care Provider Self, Referral Referring Provider Unavailable Daniel, [facility] R Primary Care Provider DO Aries Chavez II Attending Provider Self, Referral Referring Provider Unavailable Self, Referral Referring Provider Unavailable Self, Referral Referring Provider Unavailable Self, Referral Referring Provider Unavailable Self, Referral Referring Provider Unavailable Unavailable Primary Care Provider Unavailabl e Self, Referral Referring Provider Unavailable Chris BONILLA-FINANCIAL ACCOUNTANT, Nedra Woodruff Primary Care Provider Scott II, DO Aries Guzman Attending Provider [facility] Primary Care Provider Self, Referral Referring Provider Unavailable KUNTony, NEDRA WOODRUFF Attending Unavailable KUNS, NEDRA WOODRUFF Referring Unavailable KUNTony, NEDRA WOODRUFF Primary Care Unavailable KUNTony, NEDRA WOODRUFF Attending Unavailable KUNS, NEDRA WOODRUFF Referring Unavailable KUNS, NEDRA WOODRUFF Primary Care Unavailable Scott II, DO Aries Guzman Attending Provider [facility], [facility] Primary Care Provider [phone] Self, Referral Referring Provider Unavailable Scott II, DO Aries Guzman Attending Provider [facility] Primary Care Provider [phone] Self, Referral Referring Provider Unavailable PEDRO LUIS FRENCH Attending Unavailable PEDRO LUIS FRENCH Attending Unavailable MADDIE ANN Attending Unavailable Scott II, DO Aries Guzman Attending Provider [facility] Primary Care Provider Self, Referral Referring Provider Unavailable Scott II, DO Aries Guzman Attending Provider [facility] Primary Care Provider Self, Referral Referring Provider Unavailable Kelli Geller Primary Care Provid er Nedra Perez Primary Care Unavailable Self, Referral Referring Unavailable Scott VELASQUEZ, Aries Guzman Attending Unavaila ble Scott VELSAQUEZ, Aries Guzman Admitting Unavaila ble Allergies Allergy Classification Reported Allergen(s) Allergy Type Date of Onset Reaction(s) Facility (8 sources) Erythromycin Drug Allergy 3 Diarrhea [facility] Repository (5 sources) Erythromycin; Translations: [ERYTHROMYCIN] Drug Allergy 3 [facility] (See Comments[facility] (1 source) Erythromycin Drug Allergy 4 [facility] Repository Medications Current Medications Medication Drug Class(es) Dates Sig (Normalized) Sig (Original) albuterol 0.83 mg/ml inhalation solution (6 sources) beta2-Adrenergic Agonist Start: 01-30-2024 End: 08-05-2024 take 3 mL by inhalation every six hours as needed for wheezing albuterol (PROVENTIL,VENTOLIN ) 2.5 mg /3 mL (0.083 %) nebulizer solution Indications: Chronic obstructive pulmonary disease with acute exacerbation ([facility]) Inhale 3 mL (2.5 mg total) by nebulization every 6 (six) hours as needed for wheezing. 75 mL 6 08/05/2024 Active Start: 04-28-2023 take 2 puff(s) by mo uth every four hours VENTOLIN HFA 90 mcg/actuation inhaler inhale 2 puffs by mouth and INTO THE LUNGS every 4 hours if needed for shortness of breath 04/28/2023 Active ALPRAZolam 0.25 mg oral tablet (3 sources) Benzodiazepine Start: 04-07-2023 ALPRAZolam (XANAX) 0.25 [...] aspirin 81 mg delayed release oral tablet (11 sources) Platelet Aggregation Inhibitor, Nonsteroidal Anti-inflammatory Drug Start: 10-20-2023 take 81 mg by mouth once daily Aspirin Active 81 MG PO Daily October 20, 2023 1:00am atorvastatin 20 mg oral tablet (18 sources) HMG-CoA Reductase Inhibitor Start: 06-21-2023 take [...] 2024 12:00am famotidine 20 mg oral tablet (18 sources) Histamine-2 Receptor Antagonist Start: 07-22-2024 take [...] 30 tablet 2 07/11/2023 07/19/2024 Discontinued (Reorder) Otltytzsivk-Wxhvjovrk-Ujvkul er (3 sources) Anticholinergic, Corticosteroid, beta2-Adrenergic Agonist Start: 05-10-2024 Rvwsavdvkeb-Xknmwhobv-Urcttr er (Trelegy Ellipta) 100-62.5-25 mcg blister with [...] ODT (ZOFRAN ODT) 4 mg disintegrating tablet dissolve 1 tablet ON TONGUE every 8 hours if needed for nausea 10/18/2023 Active pantoprazole 40 mg delayed release oral tablet (17 sources) Proton Pump Inhibitor Start: 06-21-2023 End: 05-10-2024 pantoprazole (PROTONIX) 40 mg EC tablet Daily 06/21/2023 Active 4 ml pembrolizumab 25 mg/ml injection (3 sources) Programmed Receptor-1 Blocking Antibody pembrolizumab (KEYTRUDA) 25 mg/mL chemo injection as directed Intravenous Active polyethylene glycol 3350 81758 mg powder for oral solution (10 sources) Osmotic Laxative Start: 10-24-2023 polyethylene glycol [...] mg / valsartan 26 mg oral tablet (18 sources) Angiotensin 2 Receptor [place] Start: 06-21-2023 [...] Twice daily October 24, 2023 12:00am sennosides, intermediate 8.6 mg oral tablet (2 sources) Start: 10-24-2023 senna (SENOKOT ) 8.6 mg tablet Twice daily 10/24/2023 Active spironolactone 25 mg oral tablet (18 sources) Aldosterone Antagonist Start: 06-21-2023 Spironolactone Activ [...] Tablet Discontinued 5 MG PO Twice daily September 07, 2023 1:00am October 26, 2023 [...] Documented Da te Episodic/Chronic Acute myocardial infarction (4 sources) Non-ST elevation (NSTEMI) myocardial infarction; Translations: [...] 02-02-2023 10-19-2023 Chronic Congestive heart failure; nonhypertensive (17 sources) Acute on chronic systolic (congestive) heart failure; Translations: [Acute systolic (congestive) heart failure] Onset: 01-25-2023 Resolved: 02-07-2023 Chronic Coronary atherosclerosis and other heart disease (7 sources) Acute coronary syndrome; Translations: [Acute ischemic heart disease, unspecified] Onset: 01-25-2023 02-06-2023 Chronic Deficiency and other anemia (13 sources) Iron deficiency anemia, unspecified; Translations: [Iron deficiency anemia, unspecified] 10-05-2023 Episodic Hypertension with complications and secondary [...] Translations: [Encounter for antineoplastic chemotherapy] 10-05-2023 Chronic Other aftercare (8 sources) Drug therapy finding; Translations: [Other director long term care (current) drug therapy] 10-20-2023 Episodic Other aftercare (4 sources) Other skilled nursing (current) drug therapy; Translations: [Long-term (current) use of other medications] 10-19-2023 Episodic Other diseases of kidney and ureters (10 sources) Renal mass; Translations: [Other specified disorders of kidney and ureter] Onset: 04-24-2023 07-11-2023 Chronic Other diseases of kidney and ureters (5 sources) Other specified disorders of kidney and ureter; Translations: [Unspecified disorder of kidney and ureter] 07-31-2023 Chronic Other gastrointestinal disorders (4 sources) Constipation, unspecified; Translations: [Constipation, unspecified] 10-19-2023 Episodic Other liver diseases (12 sources) Enzyme level - finding; Translations: [Elevated transaminase measurement] 10-20-2023 Episodic Other lower respiratory disease (1 source) Cough Onset: 01-30-2024 Episodic Other lower respiratory disease (2 sources) Other forms of dyspnea; Translations: [Other forms of dyspnea] Onset: 04-23-2024 Episodic Other nervous system disorders (10 sources) Pain due to neoplastic disease; Translations: [Neoplasm related pain (acute) (chronic)] Onset: 01-30-2024 10-20-2023 Chronic Other nervous system disorders (4 sources) Neoplasm related pain (acute) (chronic); Translations: [Neoplasm related pain (acute) (chronic)] 10-19-2023 Chronic Other screening for suspected conditions (not mental disorders or infectious disease) (20 sources) Raised cardiac enzyme or marker; Translations: [Other specified abnormal findings of blood chemistry] 10-19-2023 Episodic Other upper respiratory disease (1 source) Nasal congestion Onset: 12-26-2023 Episodic Other upper respiratory infections (3 sources) Acute upper respiratory infection, unspecified; Translations: [Acute recurrent frontal sinusitis] Onset: 02-02-2023 12-26-2023 Episodic Katey-; endo-; and myocarditis; cardiomyopathy (except that caused by tuberculosis or sexually transmitted disease) (16 sources) Cardiomyopathy; Translations: [Other cardiomyopathies] Onset: 01-30-2024 10-20-2023 Chronic Pneumonia (except that caused by [...] Translations: [Chronic respiratory failure with hypoxia] Onset: 01-30-2024 10-19-2023 Chronic Septicemia (except in labor) (3 [...] failure; Translations: [Other acute kidney failure] Onset: 01-30-2024 10-20-2023 Episodic Administrative/social admission (14 sources) Advance directive discussed with patient; Translations: [Other specified counseling] Onset: 01-30-2024 10-23-2023 Episodic Deficiency and other anemia (20 sources) Iron deficiency anemia; Translations: [Iron deficiency anemia, unspecified] Onset: 01-30-2024 2023 Episodic Fluid and electrolyte disorders (20 sources) Hypo-osmolality and hyponatremia; Translations: [Hyponatremia] Onset: 02-02-2023 10-05-2023 Episodic Mood disorders (3 sources) Mood disorders Onset: 12-26-2023 Resolved: 01-30-2024 12-26-2023 Nausea and vomiting (17 sources) Nausea; Translations: [Intractable nausea and vomiting] Onset: 02-02-2023 10-19-2023 Episodic Other gastrointestinal disorders (10 sources) Constipation; Translations: [Constipation, unspecified] Onset: 01-30-2024 10-19-2023 Episodic Respiratory failure; insufficiency; arrest (adult) (5 sources) Acute respiratory failure with hypoxia; Translations: [Acute respiratory failure with hypercapnia] Onset: 01-25-2023 Resolved: 02-07-2023 02-07-2023 Episodic Viral infection (5 sources) Other viral agents as the cause of diseases classified elsewhere; Translations: [Parainfluenza] Onset: 01-25-2023 02-06-2023 Episodic Results Test Name Value Interpretation Reference Range Facility Adrenocorticotropic Hormone PLon 10-01-[address] 28.6 pg/mL Normal 7.2-63.3 [facility] Comment on above: Result Comment: ACTH reference interval for samples collected between 7 and 10 AM. Performed at: - [facility] [id number] Core Inserter: Juan Hendricks PhD, Phone: [phone] PERFORMED BY: [place] [address] PATHOLOGIST MARKET DEVELOPER SHIRA GALLO M.D. Performed By: #### C BC #### [address] CBC W Auto Differential pane l (Bld)on 10-01-2024 Basophils (Bld) [#/Vol] 0.1 10*3/uL 0.0 - 0.2 10*3/uL [facility] Basophils/100 WBC Manual cnt (Syn fld) 2 % . [facility] Eosinophils (Bld) [#/Vol] 0.9 10*3/uL High 0.0 - 0.45 10*3/uL [facility] Eosinophils/100 WBC Manual cnt (Syn fld) 12.6 % . [facility] Erythrocyte distribution width (RBC) [Ratio] 13.2 % 11.9 - 15.3 % [facility] Hematocrit (Bld) [Volume fraction] 35.5 % 34.0 - 46.4 % [facility] Hemoglobin (Bld) [Mass/Vol] 11.7 g/dL Low 11.8 - 15.4 g/dL [facility] Interpretation and review of laboratory results Abnormal [facility] Lymphocytes (Bld) [#/Vol] 1.1 10*3/uL 1.00 - 4.8 10*3/uL [facility] Lymphocytes/100 WBC Manual cnt (Syn fld) 15.3 % . [facility] MCH (RBC) [Entitic mass] 28.9 pg 24.7 - 34.3 pg [facility] MCHC (RBC) [Mass/Vol] 32.8 g/dL 32.0 - 35.0 g/dL [facility] MCV (RBC) [Entitic vol] 88 fL 80 - 100 fL [facility] Monocytes (Bld) [#/Vol] 0.7 10*3/uL 0.0 - 0.8 10*3/uL [facility] Monocytes+Macrophages/ 100 WBC Manual cnt (Syn fld) 10.2 % . [facility] Neutrophils (Bld) [#/Vol] 4.4 10*3/uL 1.8 - 7.7 10*3/uL [facility] Neutrophils/100 WBC Manual cnt (Syn fld) 59.9 % . [facility] NRBC 0.1 /100{WBC} 0 - 0.5 /100{WBC} [facility] Platelet mean volume (Bld) [Entitic vol] 8.8 fL 6.3 - 10.7 fL [facility] Platelets (Bld) [#/Vol] 261 10*3/uL 150 - 450 10*3/uL [facility] RBC LM.HPF (Urine sed) [#/Area] 4.04 10*6/uL 3.60 - 5.00 10*6/uL [facility] WBC (Bld) [#/Vol] 7.3 10*3/uL 3.8 - 11.6 10*3/uL [facility] WBC LM.HPF (Urine sed) [#/Area] 7.3 10*3/uL 3.8 - 11.6 10*3/uL [facility] Complete Blood Count Auto Di ffon 10-01-2024 Basophils (Bld) [#/Vol] 0.1 10*3/uL Normal 0.0-0.2 [facility] Comment on above: Result Comment: PERF ORMED BY: [place] [address] PATHOLOGIST MARKET DEVELOPER SHIRA GALLO M.D. Performed By: #### C BC #### [address] Basophils/100 WBC (Bld) 2.0 % Normal . [facility] Comment on above: Performed By: #### C BC #### [place] [address] [place] Eosinophils (Bld) [#/Vol] 0.9 10*3/uL High 0.0-0.45 [facility] Comment on above: Performed By: #### C BC #### [address] Eosinophils/100 WBC (Bld) 12.6 % Normal . [facility] Comment on above: Performed By: #### C BC #### [address] Erythrocyte distribution width (RBC) [Ratio] 13.2 % Normal 11.9-15.3 [facility] Comment on above: Performed By: #### C BC #### [address] Hematocrit (Bld) [Volume fraction] 35.5 % Normal 34.0-46.4 [facility] Comment on above: Performed By: #### C BC #### [address] Hemoglobin (Bld) [Mass/Vol] 11.7 g/dL Low 11.8-15.4 [facility] Comment on above: Performed By: #### C BC #### [address] Lymphocytes (Bld) [#/Vol] 1.1 10*3/uL Normal 1.00-4.8 [facility] Comment on above: Performed By: #### C BC #### [address] Lymphocytes/100 WBC (Bld) 15.3 % Normal . [facility] Comment on above: Performed By: #### C BC #### [address] MCH (RBC) [Entitic mass] 28.9 pg Normal 24.7-34.3 [facility] Comment on above: Performed By: #### C BC #### [address] MCV (RBC) [Entitic vol] 88.0 fL Normal 80-100 [facility] Comment on above: Performed By: #### C BC #### [address] Mean Corpuscular HGB Conc 32.8 g/dL Normal 32.0-35.0 [facility] Comment on above: Performed By: #### C BC #### [address] Monocytes (Bld) [#/Vol] 0.7 10*3/uL Normal 0.0-0.8 [facility] Comment on above: Performed By: #### C BC #### [address] Monocytes/100 WBC (Bld) 10.2 % Normal . [facility] Comment on above: Performed By: #### C BC #### [place] [address] Neutrophils (Bld) [#/Vol] 4.4 10*3/uL Normal 1.8-7.7 [facility] Comment on above: Performed By: #### C BC #### [address] Neutrophils/100 WBC (Bld) 59.9 % Normal . [facility] Comment on above: Performed By: #### C BC #### [address] NRBC% 0.1 /100{WBC} Normal 0-0.5 [facility] Comment on above: Performed By: #### C BC #### [address] Platelet mean volume (Bld) [Entitic vol] 8.8 fL Normal 6.3-10.7 [facility] Comment on above: Performed By: #### C BC #### [address] Platelets (Bld) [#/Vol] 261 10*3/uL Normal 150-450 [facility] Comment on above: Performed By: #### C BC #### [address] RBC (Bld) [#/Vol] 4.04 10*6/uL Normal 3.60-5.00 [facility] Comment on above: Performed By: #### C BC #### [address] WBC (Bld) [#/Vol] 7.3 10*3/uL Normal 3.8-11.6 [facility] Comment on above: Performed By: #### C BC #### [address] Comprehensive Metabolic Pane [facility] 10-01-2024 Albumin [Mass/Vol] 3.6 g/dL Normal 3.5-5.7 [facility] Comment on above: Performed By: #### T SH3, JER, T4F, CMP #### [address] [place] [address] [place] #### ACTH #### [facility] , Albumin/Globulin [Mass ratio] 1.0 {ratio} Normal [facility] Comment on above: Performed By: #### T SH3, JER, T4F, CMP #### [address] #### ACTH #### [facility] , ALP [Catalytic activity/Vol] 78 U/L Normal 34-104 [facility] Comment on above: Performed By: #### T SH3, JER, T4F, CMP #### [place] [address] [place] #### ACTH #### [facility] , ALT [Catalytic activity/Vol] 10 U/L Normal 7-52 [facility] Comment on above: Performed By: #### T SH3, JER, T4F, CMP #### [address] #### ACTH #### [facility] , Anion gap [Moles/Vol] 8.7 mmol/L Normal 6.0-15.0 [facility] Comment on above: Performed By: #### T SH3, JER, T4F, CMP #### [address] #### ACTH #### [facility] , AST [Catalytic activity/Vol] 17 U/L Normal 13-39 [facility] Comment on above: Performed By: #### T SH3, JER, T4F, CMP #### [place] [address] [place] #### ACTH #### [facility] , Bilirubin [Mass/Vol] 0.5 mg/dL Normal 0.3-1.0 [facility] Comment on above: Performed By: #### T SH3, JER, T4F, CMP #### [place] [address] [place] #### ACTH #### [facility] , Calcium [Mass/Vol] 9.0 mg/dL Normal 8.6-10.3 [facility] Comment on above: Performed By: #### T SH3, JER, T4F, CMP #### [place] [address] [place] #### ACTH #### [facility] , Chloride [Moles/Vol] 98 mmol/L Normal 98-107 [facility] Comment on above: Performed By: #### T SH3, JER, T4F, CMP #### [place] [address] [place] #### ACTH #### [facility] , CO2 [Moles/Vol] 28.4 mmol/L Normal 21.0-31.0 [facility] Comment on above: Performed By: #### T SH3, JER, T4F, CMP #### [address] #### ACTH #### [facility] , Creatinine [Mass/Vol] 0.95 mg/dL Normal 0.60-1.20 [facility] Comment on above: Performed By: #### T SH3, JER, T4F, CMP #### [address] #### ACTH #### [facility] , Creatinine Clr Calc Pharmacy 61.44 Normal [facility] Comment on above: Performed By: #### T SH3, JER, T4F, CMP #### [facility] [address] [place] [address] [place] #### ACTH #### [facility] , GFR/1.73 sq M.predicted MDRD (S/P/Bld) [Vol rate/Area] mL/min/{1.73_m2} Normal [facility] Comment on above: Performed By: #### T SH3, JER, T4F, CMP #### [place] [address] [place] #### ACTH #### [facility] , Globulin (S) [Mass/Vol] 3.5 g/dL Normal [facility] Comment on above: Performed By: #### T SH3, JER, T4F, CMP #### [place] [address] [place] #### ACTH #### [facility] , Glucose [Mass/Vol] 92 mg/dL Normal 70-100 [facility] Comment on above: Result Comment: [place] Glucose Reference Range is dependent on time and content of last meal. Glucose of more than 200 mg/dL in a nonstressed, ambulatory subject supports the diagnosis of Diabetes Mellitus. ADA recommended reference range Performed By: #### T SH3, JER, T4F, CMP #### [place] [address] [place] #### ACTH #### [facility] , Potassium [Moles/Vol] 4.1 mmol/L Normal 3.5-5.1 [facility] Comment on above: Performed By: #### T SH3, JER, T4F, CMP #### [place] [address] [place] #### ACTH #### [facility] , Protein [Mass/Vol] 7.1 g/dL Normal 6.4-8.9 [facility] Comment on above: Performed By: #### T SH3, JER, T4F, CMP #### [place] [address] [place] #### ACTH #### [facility] , Sodium [Moles/Vol] 131 mmol/L Low 136-145 [facility] Comment on above: Performed By: #### T SH3, JER, T4F, CMP #### [place] [address] [place] #### ACTH #### [facility] , Urea nitrogen [Mass/Vol] 18 mg/dL Normal 7-25 [facility] Comment on above: Performed By: #### T SH3, JER, T4F, CMP #### [address] #### ACTH #### [facility] , Cortisolon 10-01-2024 Cortisol 12.0 ug/dL Normal [facility] Comment on above: Result Comment: Refe rence range: AM 6 - 24 ug/dl PM <10 ug/dl [facility] awning hanger helper and method: WIDIP DXI, POLYCLONAL ANTIBODY CORTISOL ASSAY. PERFORMED BY: [place] [address] PATHOLOGIST MARKET DEVELOPER SHIRA GALLO M.D. Performed By: #### C BC #### [address] Free T4 (Free Thyroxine)on 1 Free T4 [Mass/Vol] 0.45 ng/dL Low 0.61-1.12 [facility] Comment on above: Performed By: #### T SH3, JER, T4F, CMP #### [address] #### ACTH #### [facility] , Thyroid Stimulating Hormoneo n 10-01-2024 TSH Qn 45.50 m[IU]/L High 0.45-5.33 [facility] Comment on above: Performed By: #### T SH3, JER, T4F, CMP #### [address] #### ACTH #### [facility] , ADRENOCORTICOTROPIC HORMONE PLon 06-19-[address] 51.6 pg/mL 7.2 - 63.3 pg/mL [facility] Comment on above: ACTH reference inter wendy for samples collected between 7 and 10 AM. Performed at: [address] [id number] Core Inserter: Juan Hendricks PhD, Phone: [phone] [facility] Adrenocorticotropic Hormone PLon 06-18-[address] 51.6 pg/mL Normal 7.2-63.3 [facility] Comment on above: Result Comment: ACTH reference interval for samples collected between 7 and 10 AM. Performed at: [facility] [id number] Core Inserter: Juan Hendricks PhD, Phone: [phone] PERFORMED BY: [place] [address] PATHOLOGIST MARKET DEVELOPER STEFANO HOLT M.D. Performed By: #### A CTH #### [facility] , #### TSH3, T4F, JER, CMP #### [address] Alanine aminotransferase [En zymatic activity/volume] in Serum or PlasmaOrdered By: Aries Chavez on 06-18-2024 ALT [Catalytic activity/Vol] 11 U/L Normal 7-52 [facility] Comment on above: Performed By: #### A CTH #### [facility] , #### TSH3, T4F, JER, CMP #### [facility] [address] [place] [address] [place] Albumin [Mass/volume] in Ser um or Plasma by Bromocresol green (BCG) dye binding methoOrdered By: Aries Chavez on 06-18-2024 Albumin BCG dye [Mass/Vol] 3.7 g/dL 3.5-5.7 [facility] Alkaline phosphatase [Enzyma tic activity/volume] in Serum or PlasmaOrdered By: Aries Chavez on 06-18-2024 ALP [Catalytic activity/Vol] 76 U/L Normal 34-104 [facility] Comment on above: Performed By: #### A CTH #### [facility] , #### TSH3, T4F, JER, CMP #### [facility] [address] [place] [address] [place] Aspartate aminotransferase [ Enzymatic activity/volume] in Serum or PlasmaOrdered By: Aries Chavez on 06-18-2024 AST [Catalytic activity/Vol] 19 U/L Normal 13-39 [facility] Comment on above: Performed By: #### A CTH #### [facility] , #### TSH3, T4F, JER, CMP #### [facility] [address] [place] [address] Automated basophil %Ordered By: Aries Chavez on 06-18-2024 Basophils/100 WBC (Bld) 1.4 % Normal . [facility] Comment on above: Performed By: #### A CTH #### [facility] , #### TSH3, T4F, JER, CMP #### [facility] [address] [place] [address] Automated basophil countOrde red By: Aries Chavez on 06-18-2024 Basophils (Bld) [#/Vol] 0.1 10*3/uL Normal 0.0-0.2 [facility] Comment on above: Result Comment: PERF ORMED BY: [address] [place] [address] PATHOLOGIST MARKET DEVELOPER STEFANO HOLT M.D. Performed By: #### A CTH #### [facility] , #### TSH3, T4F, JER, CMP #### [facility] [address] [place] [address] Automated blood monocyte cou ntOrdered By: Aries Chavez on 06-18-2024 Monocytes (Bld) [#/Vol] 0.8 10*3/uL Normal 0.0-0.8 [facility] Comment on above: Performed By: #### A CTH #### [facility] , #### TSH3, T4F, JER, CMP #### [facility] [address] [place] [place] [address] Automated eosinophil %Ordere d By: Aries Chavez on 06-18-2024 Eosinophils/100 WBC (Bld) 6.1 % Normal . [facility] Comment on above: Performed By: #### A CT #### [facility] , #### TSH3, T4F, JER, CMP #### [address] Automated eosinophil countOr dered By: Aries Chavez on 06-18-2024 Eosinophils (Bld) [#/Vol] 0.5 10*3/uL High 0.0-0.45 [facility] Comment on above: Performed By: #### A CT #### [facility] , #### TSH3, T4F, JER, CMP #### [address] Automated monocyte %Ordered By: Aries Chavez on 06-18-2024 Monocytes/100 WBC (Bld) 9.1 % Normal . [facility] Comment on above: Performed By: #### A CT #### [facility] , #### TSH3, T4F, JER, CMP #### [address] Automated neutrophil %Ordere d By: Aries Chavez on 06-18-2024 Neutrophils/100 WBC (Bld) 70.9 % Normal . [facility] Comment on above: Performed By: #### A CT #### [facility] , #### TSH3, T4F, JER, CMP #### [address] Bilirubin.total [Mass/volume ] in Serum or PlasmaOrdered By: Aries Chavez on 06-18-2024 Bilirubin [Mass/Vol] 0.6 mg/dL Normal 0.3-1.0 [facility] Comment on above: Performed By: #### A CT #### [facility] , #### TSH3, T4F, JER, CMP #### [address] CBC W Auto Differential pane l (Bld)on 06-18-2024 Basophils (Bld) [#/Vol] 0.1 10*3/uL 0.0 - 0.2 10*3/uL [facility] Basophils/100 WBC Manual cnt (Syn fld) 1.4 % . [facility] Eosinophils (Bld) [#/Vol] 0.5 10*3/uL High 0.0 - 0.45 10*3/uL [facility] Eosinophils/100 WBC Manual cnt (Syn fld) 6.1 % . [facility] Erythrocyte distribution width (RBC) [Ratio] 13.3 % 11.9 - 15.3 % [facility] Hematocrit (Bld) [Volume fraction] 36.5 % 34.0 - 46.4 % [facility] Hemoglobin (Bld) [Mass/Vol] 12.2 g/dL 11.8 - 15.4 g/dL [facility] Interpretation and review of laboratory results Abnormal [facility] Lymphocytes (Bld) [#/Vol] 1.1 10*3/uL 1.00 - 4.8 10*3/uL [facility] Lymphocytes/100 WBC Manual cnt (Syn fld) 12.5 % . [facility] MCH (RBC) [Entitic mass] 29.6 pg 24.7 - 34.3 pg [facility] MCHC (RBC) [Mass/Vol] 33.4 g/dL 32.0 - 35.0 g/dL [facility] MCV (RBC) [Entitic vol] 88.8 fL 80 - 100 fL [facility] Monocytes (Bld) [#/Vol] 0.8 10*3/uL 0.0 - 0.8 10*3/uL [facility] Monocytes+Macrophages/ 100 WBC Manual cnt (Syn fld) 9.1 % . [facility] Neutrophils (Bld) [#/Vol] 6.0 10*3/uL 1.8 - 7.7 10*3/uL [facility] Neutrophils/100 WBC Manual cnt (Syn fld) 70.9 % . [facility] NRBC 0.0 /100{WBC} 0 - 0.5 /100{WBC} [facility] Platelet mean volume (Bld) [Entitic vol] 7.1 fL 6.3 - 10.7 fL [facility] Platelets (Bld) [#/Vol] 342 10*3/uL 150 - 450 10*3/uL [facility] RBC LM.HPF (Urine sed) [#/Area] 4.11 /[HPF] 3.60 - 5.00 [facility] WBC (Bld) [#/Vol] 8.4 10*3/uL 3.8 - 11.6 10*3/uL [facility] WBC LM.HPF (Urine sed) [#/Area] 8.4 10*3/uL 3.8 - 11.6 10*3/uL [facility] Calcium [Mass/volume] in Ser um or PlasmaOrdered By: Aries Chaevz on 06-18-2024 Calcium [Mass/Vol] 9.1 mg/dL Normal 8.6-10.3 [facility] Comment on above: Performed By: #### A CT #### [facility] , #### TSH3, T4F, JER, CMP #### [facility] [address] [place] [address] Carbon dioxide, total [Moles /volume] in Serum or PlasmaOrdered By: Aries Chavez on 06-18-2024 CO2 [Moles/Vol] 29.4 mmol/L Normal 21.0-31.0 [facility] Comment on above: Performed By: #### A CT #### [facility] , #### TSH3, T4F, JER, CMP #### [facility] [address] [place] [address] [place] Chloride [Moles/volume] in S leena or PlasmaOrdered By: Aries Chavez on 06-18-2024 Chloride [Moles/Vol] 94 mmol/L Low 98-107 [facility] Comment on above: Performed By: #### A CTH #### [facility] , #### TSH3, T4F, JER, CMP #### [facility] [address] [place] [address] Complete Blood Count Auto Di ffon 06-18-2024 Mean Corpuscular HGB Conc 33.4 g/dL Normal 32.0-35.0 [facility] Comment on above: Performed By: #### A CTH #### [facility] , #### TSH3, T4F, JER, CMP #### [address] NRBC% 0.0 /100{WBC} Normal 0-0.5 [facility] Comment on above: Performed By: #### A CTH #### [facility] , #### TSH3, T4F, JER, CMP #### [address] Comprehensive Metabolic Pane malcom 06-18-2024 Albumin [Mass/Vol] 3.7 g/dL Normal 3.5-5.7 [facility] Comment on above: Performed By: #### A CTH #### [facility] , #### TSH3, T4F, JER, CMP #### [address] Creatinine Clr Calc Pharmacy 67.15 Normal [facility] Comment on above: Performed By: #### A CTH #### [facility] , #### TSH3, T4F, JER, CMP #### [address] GFR/1.73 sq M.predicted MDRD (S/P/Bld) [Vol rate/Area] mL/min/{1.73_m2} Normal [facility] Comment on above: Performed By: #### A CTH #### [facility] , #### TSH3, T4F, JER, CMP #### [address] Cortisolon 06-18-2024 Cortisol 18.8 ug/dL Normal [facility] Comment on above: Result Comment: Refe rence range: AM 6 - 24 ug/dl PM <10 ug/dl [facility] awning hanger helper and method: AMRITA UNICEL DXI, POLYCLONAL ANTIBODY CORTISOL ASSAY. PERFORMED BY: [address] [place] [address] PATHOLOGIST MARKET DEVELOPER STEFANO HOLT M.D. Performed By: #### A CTH #### [facility] , #### TSH3, T4F, JER, CMP #### [address] Creatinine [Mass/volume] in Serum or PlasmaOrdered By: Aries Chavez on 06-18-2024 Creatinine [Mass/Vol] 0.83 mg/dL Normal 0.60-1.20 [facility] Comment on above: Performed By: #### A CTH #### [facility] , #### TSH3, T4F, JER, CMP #### [address] Erythrocyte distribution wid th [Ratio] by Automated countOrdered By: Aries Chavez on 06-18-2024 Erythrocyte distribution width (RBC) [Ratio] 13.3 % Normal 11.9-15.3 [facility] Comment on above: Performed By: #### A CTH #### [facility] , #### TSH3, T4F, JER, CMP #### [address] Erythrocytes [#/volume] in B lood by Automated countOrdered By: Aries Chavez on 06-18-2024 RBC (Bld) [#/Vol] 4.11 10*6/uL Normal 3.60-5.00 [facility] Comment on above: Performed By: #### A CTH #### [facility] , #### TSH3, T4F, JER, CMP #### [facility] [address] [place] [address] [place] Glucose [Mass/volume] in Ser um or PlasmaOrdered By: Aries Chavez on 06-18-2024 Glucose [Mass/Vol] 93 mg/dL Normal 70-100 [facility] Comment on above: ADA recommended refe rence rangeRandom Glucose Reference Range is dependent on time and content of last meal. Glucose of more than 200 mg/dL in a nonstressed, ambulatory subject supports the diagnosis of Diabetes Mellitus. Result Comment: [place] Glucose Reference Range is dependent on time and content of last meal. Glucose of more than 200 mg/dL in a nonstressed, ambulatory subject supports the diagnosis of Diabetes Mellitus. ADA recommended reference range Performed By: #### A CT #### [facility] , #### TSH3, T4F, JER, CMP #### [address] Hematocrit [Volume Fraction] of Blood by Automated countOrdered By: Aries Chavez on 06-18-2024 Hematocrit (Bld) [Volume fraction] 36.5 % Normal 34.0-46.4 [facility] Comment on above: Performed By: #### A [facility] #### [facility] , #### TSH3, T4F, JER, CMP #### [address] Hemoglobin [Mass/volume] in BloodOrdered By: Aries Chavez on 06-18-2024 Hemoglobin (Bld) [Mass/Vol] 12.2 g/dL Normal 11.8-15.4 [facility] Comment on above: Performed By: #### A [facility] #### [facility] , #### TSH3, T4F, JER, CMP #### [address] Leukocytes [#/volume] correc gabriel for nucleated erythrocytes in Blood by Automated counOrdered By: Aries Chavez on 06-18-2024 WBC corrected for nucl RBC Auto (Bld) [#/Vol] 8.4 10*3/uL 3.8-11.6 [facility] Leukocytes [#/volume] in Blo od by Automated countOrdered By: Aries Chavez on 06-18-2024 WBC (Bld) [#/Vol] 8.4 10*3/uL Normal 3.8-11.6 [facility] Comment on above: Performed By: #### A CT #### [facility] , #### TSH3, T4F, JER, CMP #### [facility] [address] [place] [address] Lymphocytes [#/volume] in Bl ood by Automated countOrdered By: Aries Chavez on 06-18-2024 Lymphocytes (Bld) [#/Vol] 1.1 10*3/uL Normal 1.00-4.8 [facility] Comment on above: Performed By: #### A CT #### [facility] , #### TSH3, T4F, JER, CMP #### [facility] [address] [place] [address] Lymphocytes/100 leukocytes i n Blood by Automated countOrdered By: Aries Chavez on 06-18-2024 Lymphocytes/100 WBC (Bld) 12.5 % Normal . [facility] Comment on above: Performed By: #### A CT #### [facility] , #### TSH3, T4F, JER, CMP #### [facility] [address] [place] [address] MCH [Entitic mass] by Automa gabriel countOrdered By: Aries Chavez on 06-18-2024 MCH (RBC) [Entitic mass] 29.6 pg Normal 24.7-34.3 [facility] Comment on above: Performed By: #### A CT #### [facility] , #### TSH3, T4F, JER, CMP #### [facility] [address] [place] [address] MCHC Auto (RBC) [Mass/Vol]Or dered By: Aries Chavez on 06-18-2024 MCHC (RBC) [Mass/Vol] 33.4 g/dL 32.0-35.0 [facility] MCV [Entitic volume] by Auto mated countOrdered By: Aries Chavez on 06-18-2024 MCV (RBC) [Entitic vol] 88.8 fL Normal 80-100 [facility] Comment on above: Performed By: #### A CT #### [facility] , #### TSH3, T4F, JER, CMP #### [facility] [address] [place] [address] Neutrophils [#/volume] in Bl ood by Automated countOrdered By: Aries Chavez on 06-18-2024 Neutrophils (Bld) [#/Vol] 6.0 10*3/uL Normal 1.8-7.7 [facility] Comment on above: Performed By: #### A CTH #### [facility] , #### TSH3, T4F, JER, CMP #### [facility] [address] [place] [address] No Panel InformationOrdered By: Aries Chavez on 06-18-2024 Adrenocorticotropic Hormone 51.6 pg/mL 7.2-63.3 [facility] Comment on above: ACTH reference inter wendy for samples collected between 7 and10 AM.Performed at: [facility] Director: Juan Hendricks PhD, Phone: [phone] Estimated GFR (CKD-EPI) > 60.0 mL/Min [facility] Creatinine Clearance (Chem 67.15 [facility] Nucleated erythrocytes [Pres ence] in Blood by Automated countOrdered By: Aries Chavez on 06-18-2024 Nucleated RBC Auto Ql (Bld) 0.0 /100{WBC} 0-0.5 [facility] Platelet mean volume [Entiti c volume] in Blood by Automated countOrdered By: Aries Chavez on 06-18-2024 Platelet mean volume (Bld) [Entitic vol] 7.1 fL Normal 6.3-10.7 [facility] Comment on above: Performed By: #### A CTH #### [facility] , #### TSH3, T4F, JER, CMP #### [facility] [address] [place] [address] Platelets [#/volume] in Bloo d by Automated countOrdered By: Aries Chavez on 06-18-2024 Platelets (Bld) [#/Vol] 342 10*3/uL Normal 150-450 [facility] Comment on above: Performed By: #### A CT #### [facility] , #### TSH3, T4F, JER, CMP #### [facility] [address] Potassium [Moles/volume] in Serum or PlasmaOrdered By: Aries Chavez on 06-18-2024 Potassium [Moles/Vol] 5.0 mmol/L Normal 3.5-5.1 [facility] Comment on above: Performed By: #### A CT #### [facility] , #### TSH3, T4F, JER, CMP #### [facility] [address] [place] [address] Protein [Mass/volume] in Ser um or PlasmaOrdered By: Aries Chavez on 06-18-2024 Protein [Mass/Vol] 6.9 g/dL Normal 6.4-8.9 [facility] Comment on above: Performed By: #### A CT #### [facility] , #### TSH3, T4F, JER, CMP #### [facility] [address] [place] [address] Random cortisol measurementO rdered By: Aries Chavez on 06-18-2024 Cortisol [Mass/Vol] 18.8 ug/dL [facility] Comment on above: [facility] awning hanger helper and method:AMRITA UNICEL DXI, POLYCLONAL ANTIBODY CORTISOL ASSAY.Reference range: AM 6 - 24 ug/dl PM <10 ug/dl Serum globulin measurement b y calculation (mass/volume)Ordered By: Aries Chavez on 06-18-2024 Globulin (S) [Mass/Vol] 3.2 g/dL Normal [facility] Comment on above: Performed By: #### A CT #### [facility] , #### TSH3, T4F, JER, CMP #### [facility] [address] [place] [address] Serum or plasma albumin/glob ulin mass ratioOrdered By: Aries Chavez on 06-18-2024 Albumin/Globulin [Mass ratio] 1.2 {ratio} Normal [facility] Comment on above: Performed By: #### A CTH #### [facility] , #### TSH3, T4F, JER, CMP #### [address] Serum or plasma anion gap de terminationOrdered By: Aries Chavez on 06-18-2024 Anion gap [Moles/Vol] 7.6 mmol/L Normal 6.0-15.0 [facility] Comment on above: Performed By: #### A CTH #### [facility] , #### TSH3, T4F, JER, CMP #### [address] Sodium [Moles/volume] in Ser um or PlasmaOrdered By: Aries Chavez on 06-18-2024 Sodium [Moles/Vol] 126 mmol/L Low 136-145 [facility] Comment on above: Performed By: #### A CTH #### [facility] , #### TSH3, T4F, JER, CMP #### [facility] [address] [place] [address] Thyrotropin [Units/volume] i n Serum or PlasmaOrdered By: Aries Chavez on 06-18-2024 TSH Qn 24.20 m[IU]/L High 0.45-5.33 [facility] Comment on above: Performed By: #### A CTH #### [facility] , #### TSH3, T4F, JER, CMP #### [facility] [address] [place] [address] Thyroxine (T4) free [Mass/vo lume] in Serum or PlasmaOrdered By: Aries Chavez on 06-18-2024 Free T4 [Mass/Vol] 1.05 ng/dL Normal 0.61-1.12 [facility] Comment on above: Performed By: #### A CTH #### [facility] , #### TSH3, T4F, JER, CMP #### [facility] [address] [place] [id number] [place] Urea nitrogen [Mass/volume] in Serum or PlasmaOrdered By: Aries Woorduffmilo on 06-18-2024 Urea nitrogen [Mass/Vol] 9 mg/dL Normal 7-25 [facility] Comment on above: Performed By: #### A CTH #### [facility] , #### TSH3, T4F, JER, CMP #### [facility] [address] [place] [address] [facility] No Panel InformationOrdered By: Elayne Jamse on 06-04-2024 COVID Antigen (POC) [facility] COVID Antigen (POC) [facility] 36on 05-24-2024 36 Patient informed. Sh e verbalized understanding. Normal [facility] 36on 05-22-2024 36 Nothing further to [...] with cardiology in 6 months. Thanks! Normal [facility] 36 Regarding echo resul t from 05/09/2024: AMA Alvarez MA Sarah LV function is normal , no significant valvular abnormalities Overall pretty good. Enlarged lt atrium- but normal if she has A fib Thanks Stephanie, I don't see afib as one of her diagnoses. Did you want something else done for her? Normal [facility] Adrenocorticotropic Hormone PLon 05-07-[address] 38.4 pg/mL Normal 7.2-63.3 [facility] Comment on above: Result Comment: ACTH reference interval for samples collected between 7 and 10 AM. Performed at: [facility] [id number] Core Inserter: Juan Hendricks PhD, Phone: [phone] PERFORMED BY: [place] [address] PATHOLOGIST MARKET DEVELOPER STEFANO HOLT M.D. Performed By: #### A CTH #### [facility] , #### TSH3, T4F, JER, CMP #### [facility] [address] [place] [address] Alanine aminotransferase [En zymatic activity/volume] in Serum or PlasmaOrdered By: Aries Chavez on 05-07-2024 ALT [Catalytic activity/Vol] 13 U/L Normal 7-52 [facility] Comment on above: Performed By: #### A CTH #### [facility] , #### TSH3, T4F, JER, CMP #### [facility] [address] [place] [address] [place] Albumin [Mass/volume] in Ser um or Plasma by Bromocresol green (BCG) dye binding methoOrdered By: Aries Chavez on 05-07-2024 Albumin BCG dye [Mass/Vol] 3.8 g/dL 3.5-5.7 [facility] Alkaline phosphatase [Enzyma tic activity/volume] in Serum or PlasmaOrdered By: Aries Chavez on 05-07-2024 ALP [Catalytic activity/Vol] 74 U/L Normal 34-104 [facility] Comment on above: Performed By: #### A CTH #### [facility] , #### TSH3, T4F, JER, CMP #### [facility] [address] [place] [address] [place] Aspartate aminotransferase [ Enzymatic activity/volume] in Serum or PlasmaOrdered By: Aries Chavez on 05-07-2024 AST [Catalytic activity/Vol] 20 U/L Normal 13-39 [facility] Comment on above: Performed By: #### A CTH #### [facility] , #### TSH3, T4F, JER, CMP #### [facility] [address] [place] [address] Automated basophil %Ordered By: Aries Chavez on 05-07-2024 Basophils/100 WBC (Bld) 2.9 % Normal . [facility] Comment on above: Performed By: #### A CTH #### [facility] , #### TSH3, T4F, JER, CMP #### [facility] [address] [place] [address] Automated basophil countOrde red By: Aries Chavez on 05-07-2024 Basophils (Bld) [#/Vol] 0.2 10*3/uL Normal 0.0-0.2 [facility] Comment on above: Result Comment: PERF ORMED BY: [place] [address] PATHOLOGIST MARKET DEVELOPER STEFANO HOLT M.D. Performed By: #### A CTH #### [facility] , #### TSH3, T4F, JER, CMP #### [facility] [address] [place] [address] Automated blood monocyte cou ntOrdered By: Aries Chavez on 05-07-2024 Monocytes (Bld) [#/Vol] 0.8 10*3/uL Normal 0.0-0.8 [facility] Comment on above: Performed By: #### A CTH #### [facility] , #### TSH3, T4F, JER, CMP #### [facility] [address] [place] [address] Automated eosinophil %Ordere d By: Aries Chavez on 05-07-2024 Eosinophils/100 WBC (Bld) 8.7 % Normal . [facility] Comment on above: Performed By: #### A CT #### [facility] , #### TSH3, T4F, JER, CMP #### [facility] [address] Automated eosinophil countOr dered By: Aries Chavez on 05-07-2024 Eosinophils (Bld) [#/Vol] 0.6 10*3/uL High 0.0-0.45 [facility] Comment on above: Performed By: #### A CT #### [facility] , #### TSH3, T4F, JER, CMP #### [facility] [address] [place] [address] Automated monocyte %Ordered By: Areis Chavez on 05-07-2024 Monocytes/100 WBC (Bld) 11.6 % Normal . [facility] Comment on above: Performed By: #### A CT #### [facility] , #### TSH3, T4F, JER, CMP #### [facility] [address] [place] [address] Automated neutrophil %Ordere d By: Aries Chavez on 05-07-2024 Neutrophils/100 WBC (Bld) 59.0 % Normal . [facility] Comment on above: Performed By: #### A CT #### [facility] , #### TSH3, T4F, JER, CMP #### [facility] [address] [place] [address] Bilirubin.direct [Mass/volum e] in Serum or PlasmaOrdered By: Aries Chavez on 05-07-2024 Bilirubin.direct [Mass/Vol] 0.10 mg/dL 0.03-0.18 [facility] Bilirubin.total [Mass/volume ] in Serum or PlasmaOrdered By: Aries Chavez on 05-07-2024 Bilirubin [Mass/Vol] 0.6 mg/dL Normal 0.3-1.0 [facility] Comment on above: Performed By: #### A CT #### [facility] , #### TSH3, T4F, JER, CMP #### [facility] [address] [place] [address] Calcium [Mass/volume] in Ser um or PlasmaOrdered By: Aries Chavez on 05-07-2024 Calcium [Mass/Vol] 8.9 mg/dL Normal 8.6-10.3 [facility] Comment on above: Performed By: #### A CT #### [facility] , #### TSH3, T4F, JER, CMP #### [address] Carbon dioxide, total [Moles /volume] in Serum or PlasmaOrdered By: Aries Chavez on 05-07-2024 CO2 [Moles/Vol] 29.3 mmol/L Normal 21.0-31.0 [facility] Comment on above: Performed By: #### A CTH #### [facility] , #### TSH3, T4F, JER, CMP #### [address] Chloride [Moles/volume] in S leena or PlasmaOrdered By: Aries Chavez on 05-07-2024 Chloride [Moles/Vol] 96 mmol/L Low 98-107 [facility] Comment on above: Performed By: #### A CTH #### [facility] , #### TSH3, T4F, JER, CMP #### [facility] [address] [place] [address] Complete Blood Count Auto Di ffon 05-07-2024 Mean Corpuscular HGB Conc 32.9 g/dL Normal 32.0-35.0 [facility] Comment on above: Performed By: #### A CTH #### [facility] , #### TSH3, T4F, JER, CMP #### [facility] [address] [place] [address] NRBC% 0.0 /100{WBC} Normal 0-0.5 [facility] Comment on above: Performed By: #### A CTH #### [facility] , #### TSH3, T4F, JER, CMP #### [address] Comprehensive Metabolic Pane malcom 05-07-2024 Albumin [Mass/Vol] 3.8 g/dL Normal 3.5-5.7 [facility] Comment on above: Performed By: #### A CTH #### [facility] , #### TSH3, T4F, JER, CMP #### [address] Creatinine Clr Calc Pharmacy 58.46 Normal [facility] Comment on above: Performed By: #### A CTH #### [facility] , #### TSH3, T4F, JER, CMP #### [address] GFR/1.73 sq M.predicted MDRD (S/P/Bld) [Vol rate/Area] mL/min/{1.73_m2} Normal [facility] Comment on above: Performed By: #### A CTH #### [facility] , #### TSH3, T4F, JER, CMP #### [address] Cortisolon 05-07-2024 Cortisol 14.4 ug/dL Normal [facility] Comment on above: Result Comment: Refe rence range: AM 6 - 24 ug/dl PM <10 ug/dl [facility] awning hanger helper and method: AMRITA UNICEL DXI, POLYCLONAL ANTIBODY CORTISOL ASSAY. PERFORMED BY: [place] [address] PATHOLOGIST MARKET DEVELOPER STEFANO HOLT M.D. Performed By: #### A CTH #### [facility] , #### TSH3, T4F, JER, CMP #### [address] Creatinine [Mass/volume] in Serum or PlasmaOrdered By: Aries Chavez on 05-07-2024 Creatinine [Mass/Vol] 0.93 mg/dL Normal 0.60-1.20 [facility] Comment on above: Performed By: #### A CT #### [facility] , #### TSH3, T4F, JER, CMP #### [address] Erythrocyte distribution wid th [Ratio] by Automated countOrdered By: Aries Chavez on 05-07-2024 Erythrocyte distribution width (RBC) [Ratio] 13.3 % Normal 11.9-15.3 [facility] Comment on above: Performed By: #### A CT #### [facility] , #### TSH3, T4F, JER, CMP #### [address] Erythrocytes [#/volume] in B lood by Automated countOrdered By: Aries Chavez on 05-07-2024 RBC (Bld) [#/Vol] 3.94 10*6/uL Normal 3.60-5.00 [facility] Comment on above: Performed By: #### A CT #### [facility] , #### TSH3, T4F, JER, CMP #### [address] Glucose [Mass/volume] in Ser um or PlasmaOrdered By: Aries Chavez on 05-07-2024 Glucose [Mass/Vol] 92 mg/dL Normal 70-100 [facility] Comment on above: ADA recommended refe rence rangeRandom Glucose Reference Range is dependent on time and content of last meal. Glucose of more than 200 mg/dL in a nonstressed, ambulatory subject supports the diagnosis of Diabetes Mellitus. Result Comment: [place] om Glucose Reference Range is dependent on time and content of last meal. Glucose of more than 200 mg/dL in a nonstressed, ambulatory subject supports the diagnosis of Diabetes Mellitus. ADA recommended reference range Performed By: #### A CT #### [facility] , #### TSH3, T4F, JER, CMP #### [address] Hematocrit [Volume Fraction] of Blood by Automated countOrdered By: Aries Chavez on 05-07-2024 Hematocrit (Bld) [Volume fraction] 35.8 % Normal 34.0-46.4 [facility] Comment on above: Performed By: #### A CT #### [facility] , #### TSH3, T4F, JER, CMP #### [address] Hemoglobin [Mass/volume] in BloodOrdered By: Aries Chavez on 05-07-2024 Hemoglobin (Bld) [Mass/Vol] 11.8 g/dL Normal 11.8-15.4 [facility] Comment on above: Performed By: #### A CT #### [facility] , #### TSH3, T4F, JER, CMP #### [address] Hepatic Panelon 05-07-2024 Bilirubin,Indirect 0.5 mg/dL Normal [facility] Comment on above: Performed By: #### A CT #### [facility] , #### TSH3, T4F, JER, CMP #### [address] Bilirubin.indirect [Mass/Vol] 0.10 mg/dL Normal 0.03-0.18 [facility] Comment on above: Performed By: #### A CTH #### [facility] , #### TSH3, T4F, JER, CMP #### [address] Leukocytes [#/volume] correc gabriel for nucleated erythrocytes in Blood by Automated counOrdered By: Aries Chavez on 05-07-2024 WBC corrected for nucl RBC Auto (Bld) [#/Vol] 6.8 10*3/uL 3.8-11.6 [facility] Leukocytes [#/volume] in Blo od by Automated countOrdered By: Aries Chavez on 05-07-2024 WBC (Bld) [#/Vol] 6.8 10*3/uL Normal 3.8-11.6 [facility] Comment on above: Performed By: #### A CT #### [facility] , #### TSH3, T4F, JER, CMP #### [facility] [address] [place] [address] [place] Lymphocytes [#/volume] in Bl ood by Automated countOrdered By: Aries Chavez on 05-07-2024 Lymphocytes (Bld) [#/Vol] 1.2 10*3/uL Normal 1.00-4.8 [facility] Comment on above: Performed By: #### A CT #### [facility] , #### TSH3, T4F, JER, CMP #### [facility] [address] [place] [address] [place] Lymphocytes/100 leukocytes i n Blood by Automated countOrdered By: Aries Chavez on 05-07-2024 Lymphocytes/100 WBC (Bld) 17.8 % Normal . [facility] Comment on above: Performed By: #### A CT #### [facility] , #### TSH3, T4F, JER, CMP #### [facility] [address] [place] [address] [place] MCH [Entitic mass] by Automa gabriel countOrdered By: Aries Chavez on 05-07-2024 MCH (RBC) [Entitic mass] 29.9 pg Normal 24.7-34.3 [facility] Comment on above: Performed By: #### A CT #### [facility] , #### TSH3, T4F, JER, CMP #### [facility] [address] MCHC Auto (RBC) [Mass/Vol]Or dered By: Aries Chavez on 05-07-2024 MCHC (RBC) [Mass/Vol] 32.9 g/dL 32.0-35.0 [facility] MCV [Entitic volume] by Auto mated countOrdered By: Aries Chavez on 05-07-2024 MCV (RBC) [Entitic vol] 90.9 fL Normal 80-100 [facility] Comment on above: Performed By: #### A CTH #### [facility] , #### TSH3, T4F, JER, CMP #### [facility] [address] Neutrophils [#/volume] in Bl ood by Automated countOrdered By: Aries Chavez on 05-07-2024 Neutrophils (Bld) [#/Vol] 4.0 10*3/uL Normal 1.8-7.7 [facility] Comment on above: Performed By: #### A CTH #### [facility] , #### TSH3, T4F, JER, CMP #### [facility] [address] No Panel InformationOrdered By: Aries Chavez on 05-07-2024 Adrenocorticotropic Hormone 38.4 pg/mL 7.2-63.3 [facility] Comment on above: ACTH reference inter wendy for samples collected between 7 and10 AM.Performed at: [facility] [address] [id number] Director: Juan Hendricks PhD, Phone: [phone] Estimated GFR (CKD-EPI) > 60.0 mL/Min [facility] Creatinine Clearance (Chem 58.46 [facility] Nucleated erythrocytes [Pres ence] in Blood by Automated countOrdered By: Aries Chavez on 05-07-2024 Nucleated RBC Auto Ql (Bld) 0.0 /100{WBC} 0-0.5 [facility] Platelet mean volume [Entiti c volume] in Blood by Automated countOrdered By: Aries Chavez on 05-07-2024 Platelet mean volume (Bld) [Entitic vol] 8.2 fL Normal 6.3-10.7 [facility] Comment on above: Performed By: #### A CT #### [facility] , #### TSH3, T4F, JER, CMP #### [address] Platelets [#/volume] in Bloo d by Automated countOrdered By: Aries Chavez on 05-07-2024 Platelets (Bld) [#/Vol] 225 10*3/uL Normal 150-450 [facility] Comment on above: Performed By: #### A CT #### [facility] , #### TSH3, T4F, JER, CMP #### [address] Potassium [Moles/volume] in Serum or PlasmaOrdered By: Aries Chavez on 05-07-2024 Potassium [Moles/Vol] 4.4 mmol/L Normal 3.5-5.1 [facility] Comment on above: Performed By: #### A CT #### [facility] , #### TSH3, T4F, JER, CMP #### [address] Protein [Mass/volume] in Ser um or PlasmaOrdered By: Aries Chavez on 05-07-2024 Protein [Mass/Vol] 6.8 g/dL Normal 6.4-8.9 [facility] Comment on above: Performed By: #### A CT #### [facility] , #### TSH3, T4F, JER, CMP #### [address] Random cortisol measurementO rdered By: Aries Chavez on 05-07-2024 Cortisol [Mass/Vol] 14.4 ug/dL [facility] Comment on above: [facility] awning hanger helper and method:WIDIP DXI, POLYCLONAL ANTIBODY CORTISOL ASSAY.Reference range: AM 6 - 24 ug/dl PM <10 ug/dl Serum globulin measurement b y calculation (mass/volume)Ordered By: Aries Chavez on 05-07-2024 Globulin (S) [Mass/Vol] 3.0 g/dL [facility] Comment on above: Performed By: #### A CT #### [facility] , #### TSH3, T4F, JER, CMP #### [address] Serum or plasma albumin/glob ulin mass ratioOrdered By: Aries Chavez on 05-07-2024 Albumin/Globulin [Mass ratio] 1.3 {ratio} [facility] Comment on above: Performed By: #### A CT #### [facility] , #### TSH3, T4F, JER, CMP #### [address] Serum or plasma anion gap de terminationOrdered By: Aries Chavez on 05-07-2024 Anion gap [Moles/Vol] 10.1 mmol/L Normal 6.0-15.0 [facility] Comment on above: Performed By: #### A CT #### [facility] , #### TSH3, T4F, JER, CMP #### [facility] [address] [place] [address] Serum or plasma non-glucuron idated bilirubin measurement (mass/volume)Ordered By: Aries Chavez on 05-07-2024 Bilirubin.indirect [Mass/Vol] 0.5 mg/dL [facility] Sodium [Moles/volume] in Ser um or PlasmaOrdered By: Aries Chavez on 05-07-2024 Sodium [Moles/Vol] 131 mmol/L Low 136-145 [facility] Comment on above: Performed By: #### A CT #### [facility] , #### TSH3, T4F, JER, CMP #### [address] Thyrotropin [Units/volume] i n Serum or PlasmaOrdered By: Aries Chavez on 05-07-2024 TSH Qn 36.65 m[IU]/L High 0.45-5.33 [facility] Comment on above: Performed By: #### A CT #### [facility] , #### TSH3, T4F, JER, CMP #### [facility] [address] [place] [address] Thyroxine (T4) free [Mass/vo lume] in Serum or PlasmaOrdered By: Aries Chavez on 05-07-2024 Free T4 [Mass/Vol] 0.60 ng/dL Low 0.61-1.12 [facility] Comment on above: Performed By: #### A CT #### [facility] , #### TSH3, T4F, JER, CMP #### [address] Urea nitrogen [Mass/volume] in Serum or PlasmaOrdered By: Aries Chavez on 05-07-2024 Urea nitrogen [Mass/Vol] 13 mg/dL Normal 7-25 [facility] Comment on above: Performed By: #### A CT #### [facility] , #### TSH3, T4F, JER, CMP #### [facility] [address] [place] [address] Follow-Upon 04-23-2024 Follow-Up [id number] Perla Ibarra 1955 F Date Provider Department Center 04/23/2024 [facility] Family History Problem Relation Age of Onset Tuberculosis Mother Heart attack Brother Heart failure Maternal Grandmother Heart attack Maternal Grandfather Family Status - Relation Status Age at Mother Brother Maternal Grandmother Maternal Grandfather Level of Service:[address] [place] OFFICE/OUTPATIENT ESTABLISHED MOD MDM 30 MIN Reason for Visit and Comments: Congestive Heart Failure [127] Coronary Artery Disease [187] Normal [facility] Cortisolon 03-29-2024 Cortisol 11.8 ug/dL Normal [facility] Comment on above: Result Comment: Refe rence range: AM 6 - 24 ug/dl PM <10 ug/dl [facility] awning hanger helper and method: AMRITA UNICEL DXI, POLYCLONAL ANTIBODY CORTISOL ASSAY. PERFORMED BY: [place] [address] PATHOLOGIST MARKET DEVELOPER STEFANO HOLT M.D. Performed By: #### A CTH #### [facility] , #### TSH3, T4F, JER, CMP #### [facility] [address] [place] [address] Free T4 (Free Thyroxine)on 0 03-29-2024 Free T4 [Mass/Vol] 0.84 ng/dL Normal 0.61-1.12 [facility] Comment on above: Performed By: #### A CTH #### [facility] , #### TSH3, T4F, JER, CMP #### [facility] [address] [place] [address] [place] Thyroid Stimulating Hormoneo n 03-29-2024 TSH Qn 20.08 m[IU]/L High 0.45-5.33 [facility] Comment on above: Performed By: #### A CTH #### [facility] , #### TSH3, T4F, JER, CMP #### [facility] [address] [place] [address] [place] Alanine aminotransferase [En zymatic activity/volume] in Serum or PlasmaOrdered By: Aries Chavez on 03-26-2024 ALT [Catalytic activity/Vol] 17 U/L Normal 7-52 [facility] Comment on above: Performed By: #### A CTH #### [facility] , #### TSH3, T4F, JER, CMP #### [facility] [address] [place] [address] [place] Albumin [Mass/volume] in Ser um or Plasma by Bromocresol green (BCG) dye binding methoOrdered By: Aries Chavez on 03-26-2024 Albumin BCG dye [Mass/Vol] 3.9 g/dL 3.5-5.7 [facility] Alkaline phosphatase [Enzyma tic activity/volume] in Serum or PlasmaOrdered By: Aries Chavez on 03-26-2024 ALP [Catalytic activity/Vol] 123 U/L High 34-104 [facility] Comment on above: Performed By: #### A CTH #### [facility] , #### TSH3, T4F, JER, CMP #### [facility] [address] [place] [address] Aspartate aminotransferase [ Enzymatic activity/volume] in Serum or PlasmaOrdered By: Aries Chavez on 03-26-2024 AST [Catalytic activity/Vol] 22 U/L Normal 13-39 [facility] Comment on above: Performed By: #### A CTH #### [facility] , #### TSH3, T4F, JER, CMP #### [facility] [address] [place] [address] Automated basophil %Ordered By: Aries Chavez on 03-26-2024 Basophils/100 WBC (Bld) 3.0 % Normal . [facility] Comment on above: Performed By: #### A CTH #### [facility] , #### TSH3, T4F, JER, CMP #### [facility] [address] [place] [address] Automated basophil countOrde red By: Aries Chavez on 03-26-2024 Basophils (Bld) [#/Vol] 0.2 10*3/uL Normal 0.0-0.2 [facility] Comment on above: Result Comment: PERF ORMED BY: [place] [address] PATHOLOGIST MARKET DEVELOPER STEFANO HOLT M.D. Performed By: #### A CTH #### [facility] , #### TSH3, T4F, JER, CMP #### [address] Automated blood monocyte cou ntOrdered By: Aries Chavez on 03-26-2024 Monocytes (Bld) [#/Vol] 0.7 10*3/uL Normal 0.0-0.8 [facility] Comment on above: Performed By: #### A [facility] #### [facility] , #### TSH3, T4F, JER, CMP #### [address] Automated eosinophil %Ordere d By: Aries Chavez on 03-26-2024 Eosinophils/100 WBC (Bld) 11.6 % Normal . [facility] Comment on above: Performed By: #### A CT #### [facility] , #### TSH3, T4F, JER, CMP #### [address] Automated eosinophil countOr dered By: Aries Chavez on 03-26-2024 Eosinophils (Bld) [#/Vol] 0.7 10*3/uL High 0.0-0.45 [facility] Comment on above: Performed By: #### [facility] #### [facility] , #### TSH3, T4F, JRE, CMP #### [address] Automated monocyte %Ordered By: Aries Chavez on 03-26-2024 Monocytes/100 WBC (Bld) 11.9 % Normal . [facility] Comment on above: Performed By: #### A CT #### [facility] , #### TSH3, T4F, JER, CMP #### [address] Automated neutrophil %Ordere d By: Aries Chavez on 03-26-2024 Neutrophils/100 WBC (Bld) 50.5 % Normal . [facility] Comment on above: Performed By: #### A CT #### [facility] , #### TSH3, T4F, JER, CMP #### [facility] [address] Bilirubin.total [Mass/volume ] in Serum or PlasmaOrdered By: Aries Chavez on 03-26-2024 Bilirubin [Mass/Vol] 0.6 mg/dL Normal 0.3-1.0 [facility] Comment on above: Performed By: #### A CTH #### [facility] , #### TSH3, T4F, JER, CMP #### [facility] [address] [place] [address] Calcium [Mass/volume] in Ser um or PlasmaOrdered By: Aries Chavez on 03-26-2024 Calcium [Mass/Vol] 9.3 mg/dL Normal 8.6-10.3 [facility] Comment on above: Performed By: #### A CT #### [facility] , #### TSH3, T4F, JER, CMP #### [facility] [address] [place] [address] Carbon dioxide, total [Moles /volume] in Serum or PlasmaOrdered By: Aries Chavez on 03-26-2024 CO2 [Moles/Vol] 30.3 mmol/L Normal 21.0-31.0 [facility] Comment on above: Performed By: #### A CT #### [facility] , #### TSH3, T4F, JER, CMP #### [facility] [address] [place] [address] Chloride [Moles/volume] in S leena or PlasmaOrdered By: Aries Chavez on 03-26-2024 Chloride [Moles/Vol] 96 mmol/L Low 98-107 [facility] Comment on above: Performed By: #### A CTH #### [facility] , #### TSH3, T4F, JER, CMP #### [address] Complete Blood Count Auto Di ffon 03-26-2024 Mean Corpuscular HGB Conc 33.3 g/dL Normal 32.0-35.0 [facility] Comment on above: Performed By: #### A CTH #### [facility] , #### TSH3, T4F, JER, CMP #### [address] NRBC% 0.1 /100{WBC} Normal 0-0.5 [facility] Comment on above: Performed By: #### A CTH #### [facility] , #### TSH3, T4F, JER, CMP #### [address] Comprehensive Metabolic Pane malcom 03-26-2024 Albumin [Mass/Vol] 3.9 g/dL Normal 3.5-5.7 [facility] Comment on above: Performed By: #### A CTH #### [facility] , #### TSH3, T4F, JER, CMP #### [address] Creatinine Clr Calc Pharmacy 62.20 Normal [facility] Comment on above: Result Comment: PERF ORMED BY: [place] [address] PATHOLOGIST MARKET DEVELOPER STEFANO HOLT M.D. Performed By: #### A CTH #### [facility] , #### TSH3, T4F, JER, CMP #### [address] GFR/1.73 sq M.predicted MDRD (S/P/Bld) [Vol rate/Area] mL/min/{1.73_m2} Normal [facility] Comment on above: Performed By: #### A CTH #### [facility] , #### TSH3, T4F, JER, CMP #### [facility] [address] Creatinine [Mass/volume] in Serum or PlasmaOrdered By: Aries Chavez on 03-26-2024 Creatinine [Mass/Vol] 0.83 mg/dL Normal 0.60-1.20 [facility] Comment on above: Performed By: #### A CT #### [facility] , #### TSH3, T4F, JER, CMP #### [facility] [address] Erythrocyte distribution wid th [Ratio] by Automated countOrdered By: Aries Chavez on 03-26-2024 Erythrocyte distribution width (RBC) [Ratio] 13.4 % Normal 11.9-15.3 [facility] Comment on above: Performed By: #### A CT #### [facility] , #### TSH3, T4F, JER, CMP #### [facility] [address] [place] [address] Erythrocytes [#/volume] in B lood by Automated countOrdered By: Aries Chavez on 03-26-2024 RBC (Bld) [#/Vol] 4.08 10*6/uL Normal 3.60-5.00 [facility] Comment on above: Performed By: #### A CT #### [facility] , #### TSH3, T4F, JER, CMP #### [facility] [address] [place] [address] Glucose [Mass/volume] in Ser um or PlasmaOrdered By: Aries Chavez on 03-26-2024 Glucose [Mass/Vol] 95 mg/dL Normal 70-100 [facility] Comment on above: ADA recommended refe rence rangeRandom Glucose Reference Range is dependent on time and content of last meal. Glucose of more than 200 mg/dL in a nonstressed, ambulatory subject supports the diagnosis of Diabetes Mellitus. Result Comment: [place] om Glucose Reference Range is dependent on time and content of last meal. Glucose of more than 200 mg/dL in a nonstressed, ambulatory subject supports the diagnosis of Diabetes Mellitus. ADA recommended reference range Performed By: #### A CT #### [facility] , #### TSH3, T4F, JER, CMP #### [facility] [address] [place] [address] Hematocrit [Volume Fraction] of Blood by Automated countOrdered By: Aries Chavez on 03-26-2024 Hematocrit (Bld) [Volume fraction] 36.6 % Normal 34.0-46.4 [facility] Comment on above: Performed By: #### A CTH #### [facility] , #### TSH3, T4F, JER, CMP #### [address] Hemoglobin [Mass/volume] in BloodOrdered By: Aries Chavez on 03-26-2024 Hemoglobin (Bld) [Mass/Vol] 12.2 g/dL Normal 11.8-15.4 [facility] Comment on above: Performed By: #### A CT #### [facility] , #### TSH3, T4F, JER, CMP #### [address] Leukocytes [#/volume] correc gabriel for nucleated erythrocytes in Blood by Automated counOrdered By: Aries Chavez on 03-26-2024 WBC corrected for nucl RBC Auto (Bld) [#/Vol] 5.8 10*3/uL 3.8-11.6 [facility] Leukocytes [#/volume] in Blo od by Automated countOrdered By: Aries Chavez on 03-26-2024 WBC (Bld) [#/Vol] 5.8 10*3/uL Normal 3.8-11.6 [facility] Comment on above: Performed By: #### A CTH #### [facility] , #### TSH3, T4F, JER, CMP #### [facility] [address] [place] [address] [place] Lymphocytes [#/volume] in Bl ood by Automated countOrdered By: Aries Chavez on 03-26-2024 Lymphocytes (Bld) [#/Vol] 1.3 10*3/uL Normal 1.00-4.8 [facility] Comment on above: Performed By: #### A CT #### [facility] , #### TSH3, T4F, JER, CMP #### [address] Lymphocytes/100 leukocytes i n Blood by Automated countOrdered By: Aries Chavez on 03-26-2024 Lymphocytes/100 WBC (Bld) 23.0 % Normal . [facility] Comment on above: Performed By: #### A CT #### [facility] , #### TSH3, T4F, JER, CMP #### [address] MCH [Entitic mass] by Automa gabriel countOrdered By: Aries Chavez on 03-26-2024 MCH (RBC) [Entitic mass] 29.9 pg Normal 24.7-34.3 [facility] Comment on above: Performed By: #### [facility] #### [facility] , #### TSH3, T4F, JER, CMP #### [address] MCHC Auto (RBC) [Mass/Vol]Or dered By: Aries Chavez on 03-26-2024 MCHC (RBC) [Mass/Vol] 33.3 g/dL 32.0-35.0 [facility] MCV [Entitic volume] by Auto mated countOrdered By: Aries Chavez on 03-26-2024 MCV (RBC) [Entitic vol] 89.7 fL Normal 80-100 [facility] Comment on above: Performed By: #### A CT #### [facility] , #### TSH3, T4F, JER, CMP #### [address] Neutrophils [#/volume] in Bl ood by Automated countOrdered By: Aries Chavez on 03-26-2024 Neutrophils (Bld) [#/Vol] 2.9 10*3/uL Normal 1.8-7.7 [facility] Comment on above: Performed By: #### [facility] #### [facility] , #### TSH3, T4F, JER, CMP #### [facility] [address] [place] [address] No Panel InformationOrdered By: Aries Chavez on 03-26-2024 Estimated GFR (CKD-EPI) > 60.0 mL/Min [facility] Creatinine Clearance (Chem 62.20 [facility] Nucleated erythrocytes [Pres ence] in Blood by Automated countOrdered By: Aries Chavez on 03-26-2024 Nucleated RBC Auto Ql (Bld) 0.1 /100{WBC} 0-0.5 [facility] Platelet mean volume [Entiti c volume] in Blood by Automated countOrdered By: Aries Chavez on 03-26-2024 Platelet mean volume (Bld) [Entitic vol] 8.8 fL Normal 6.3-10.7 [facility] Comment on above: Performed By: #### [facility] #### [facility] , #### TSH3, T4F, JER, CMP #### [facility] [address] [place] [address] Platelets [#/volume] in Bloo d by Automated countOrdered By: Aries Chavez on 03-26-2024 Platelets (Bld) [#/Vol] 235 10*3/uL Normal 150-450 [facility] Comment on above: Performed By: #### A CT #### [facility] , #### TSH3, T4F, EJR, CMP #### [facility] [address] [place] [address] Potassium [Moles/volume] in Serum or PlasmaOrdered By: Aries Chavez on 03-26-2024 Potassium [Moles/Vol] 4.9 mmol/L Normal 3.5-5.1 [facility] Comment on above: Performed By: #### A CT #### [facility] , #### TSH3, T4F, JER, CMP #### [facility] [address] [place] [address] Protein [Mass/volume] in Ser um or PlasmaOrdered By: Aries Chavez on 03-26-2024 Protein [Mass/Vol] 7.0 g/dL Normal 6.4-8.9 [facility] Comment on above: Performed By: #### A CT #### [facility] , #### TSH3, T4F, JER, CMP #### [address] Serum globulin measurement b y calculation (mass/volume)Ordered By: Aries Chavez on 03-26-2024 Globulin (S) [Mass/Vol] 3.1 g/dL [facility] Comment on above: Performed By: #### A CT #### [facility] , #### TSH3, T4F, JER, CMP #### [facility] [address] [place] [address] Serum or plasma albumin/glob ulin mass ratioOrdered By: Aries Chavez on 03-26-2024 Albumin/Globulin [Mass ratio] 1.3 {ratio} [facility] Comment on above: Performed By: #### A CT #### [facility] , #### TSH3, T4F, JER, CMP #### [facility] [address] [place] [address] Serum or plasma anion gap de terminationOrdered By: Aries Chavez on 03-26-2024 Anion gap [Moles/Vol] 9.6 mmol/L Normal 6.0-15.0 [facility] Comment on above: Performed By: #### A CT #### [facility] , #### TSH3, T4F, JER, CMP #### [facility] [address] [place] [address] [place] Sodium [Moles/volume] in Ser um or PlasmaOrdered By: Aries Chavez on 03-26-2024 Sodium [Moles/Vol] 131 mmol/L Low 136-145 [facility] Comment on above: Performed By: #### A CTH #### [facility] , #### TSH3, T4F, JER, CMP #### [facility] [address] [place] [address] Urea nitrogen [Mass/volume] in Serum or PlasmaOrdered By: Aries Chavez on 03-26-2024 Urea nitrogen [Mass/Vol] 20 mg/dL Normal 04-25 [facility] Comment on above: Performed By: #### A CTH #### [facility] , #### TSH3, T4F, JER, CMP #### [facility] [address] [place] [address] CT abdomen pelvis w conon CT abdomen pelvis w [facility] [place] [address] [place] [address] CT Scan Report Signed Patient: Perla Ibarra MR#: [id number] : 1955 Acct:[id number] Age/Sex: 68 / F ADM Date: 03/14/24 Loc: Room: Type: [facility] Attending Dr: Aries Chavez II DO Copies to: Aries Chavez II, DO Ordering Provider: Aries Chavez II, DO Date of Service: 03/14/24 CT/CT abdomen pelvis w con: C64.1 - Malignant neoplasm of right kidney, except renal ... ([id number]) CT/CT chest w con: C64.1 - Malignant neoplasm of right kidney, except renal ... CT CHEST, ABDOMEN AND PELVIS WITH INTRAVENOUS CONTRAST: CLINICAL HISTORY: Follow-up kidney cancer COMPARISON: Outside CT chest, abdomen and pelvis 12/19/2023. No report available for review. TECHNIQUE: TECHNIQUE: Spiral images were obtained through the chest, abdomen and pelvis following the administration of IV contrast. This CT exam was performed using one or more following dose reduction techniques: Automated exposure control, adjustment of the mA and/or kV according to patient size, or use of iterative reconstruction technique. FINDINGS: CT chest: Mediastinum:Thoracic and appears normal in caliber. Pulmonary trunk appears nondilated. No pericardial effusion. No lymphadenopathy. The esophagus is grossly unremarkable. Moderate-sized hiatal hernia. Lungs:Atheromatous changes. There are associated reticular changes. No consolidation pneumothorax or pleural effusion. Stable 4 mm noncalcified pulmonary nodule right lower lobe series 5 image 75. New 3 mm noncalcified pulmonary nodule right lower lobe series 5 image 77. Soft tissues/Bones: Soft tissues demonstrate no acute findings. Osseous structures demonstrate degenerative change. CT abdomen and pelvis: Organs:Cholelithiasis. No CBD dilatation. Portal vein is patent. No enhancing liver lesion. Spleen pancreas and right adrenal gland appears unremarkable. Stable thickening involving the left adrenal gland. Subcentimeter low attenuating lesion involving the left kidney, too small for accurate characterization. A partially calcified cystic lesion is seen involving the inferior pole of the right kidney with subtle enhancing solid components measuring approximately 4.2 x 4.0 x 5.9 cm. This has decreased in size since the prior study once measuring 5.7 x 4.8 x 7.6 cm given similar in measuring technique. There appears to be invasion into the collecting system. Additional subcentimeter low-attenuation lesions are seen within the right kidney, too small for accurate characterization. Right renal vein involvement extending into the IVC is suspected. Abdominal aorta appears normal in caliber.[ GI: Distal stomach is grossly unremarkable. Small bowel appears nondilated. No acute colonic abnormality. Colonic diverticulosis.[ Pelvis:[Urinary bladder is grossly unremarkable. Uterus is grossly unremarkable. No adnexal mass.] Peritoneum/Retroperitoneum :No free air, free fluid or lymphadenopathy.[ Abd wall/Bones:Abdominal wall demonstrates no acute findings. Osseous structures demonstrate degenerative change.[ CT/CT chest w con IMPRESSION: 1. New 3 mm nodule right lower lobe. Progression of disease cannot BE excluded. 2. Interval decrease in size of the primary lesion involving the inferior pole of the right kidney compared to the outside CT study now measuring 4.2 x 4.0 x 5.9 cm. No progression of disease is seen within the abdomen or pelvis. Impression dictated by: Junior Shelley Jr., D.O.03/14/2024 3:47 PM Dictation Location: [place] [address] Transcribed By: [facility] 03/14/24 1547 Dictated By: Junior Shelley Jr, DO 03/14/24 1528 Signed By: 03/14/24 1547 Normal [facility] Complete Blood Count Auto Di ffon 03-14-2024 Basophils (Bld) [#/Vol] 0.2 10*3/uL Normal 0.0-0.2 [facility] Comment on above: Result Comment: PERF ORMED BY: [place] [address] PATHOLOGIST MARKET DEVELOPER STEFANO HOLT M.D. Performed By: #### T SH3, JER, T4F, CMP #### [address] #### ACTH #### [facility] , Basophils/100 WBC (Bld) 2.9 % Normal . [facility] Comment on above: Performed By: #### T SH3, JER, T4F, CMP #### [address] #### ACTH #### [facility] , Eosinophils (Bld) [#/Vol] 0.7 10*3/uL High 0.0-0.45 [facility] Comment on above: Performed By: #### T SH3, JER, T4F, CMP #### [place] [address] [place] #### ACTH #### [facility] , Eosinophils/100 WBC (Bld) 10.7 % Normal . [facility] Comment on above: Performed By: #### T SH3, JER, T4F, CMP #### [place] [address] [place] #### ACTH #### [facility] , Erythrocyte distribution width (RBC) [Ratio] 13.8 % Normal 11.9-15.3 [facility] Comment on above: Performed By: #### T SH3, JER, T4F, CMP #### [place] [address] [place] #### ACTH #### [facility] , Hematocrit (Bld) [Volume fraction] 36.2 % Normal 34.0-46.4 [facility] Comment on above: Performed By: #### T SH3, JER, T4F, CMP #### [place] [address] [place] #### ACTH #### [facility] , Hemoglobin (Bld) [Mass/Vol] 12.3 g/dL Normal 11.8-15.4 [facility] Comment on above: Performed By: #### T SH3, JER, T4F, CMP #### [place] [address] [place] #### ACTH #### [facility] , Lymphocytes (Bld) [#/Vol] 1.4 10*3/uL Normal 1.00-4.8 [facility] Comment on above: Performed By: #### T SH3, JER, T4F, CMP #### [place] [address] [place] #### ACTH #### [facility] , Lymphocytes/100 WBC (Bld) 22.2 % Normal . [facility] Comment on above: Performed By: #### T SH3, JER, T4F, CMP #### [place] [address] [place] #### ACTH #### [facility] , MCH (RBC) [Entitic mass] 30.2 pg Normal 24.7-34.3 [facility] Comment on above: Performed By: #### T SH3, JER, T4F, CMP #### [place] [address] [place] #### ACTH #### [facility] , MCV (RBC) [Entitic vol] 89.0 fL Normal 80-100 [facility] Comment on above: Performed By: #### T SH3, JER, T4F, CMP #### [place] [address] [place] #### ACTH #### [facility] , Mean Corpuscular HGB Conc 34.0 g/dL Normal 32.0-35.0 [facility] Comment on above: Performed By: #### T SH3, JER, T4F, CMP #### [place] [address] [place] #### ACTH #### [facility] , Monocytes (Bld) [#/Vol] 0.7 10*3/uL Normal 0.0-0.8 [facility] Comment on above: Performed By: #### T SH3, JER, T4F, CMP #### [place] [address] [place] #### ACTH #### [facility] , Monocytes/100 WBC (Bld) 10.7 % Normal . [facility] Comment on above: Performed By: #### T SH3, JER, T4F, CMP #### [address] #### ACTH #### [facility] , Neutrophils (Bld) [#/Vol] 3.5 10*3/uL Normal 1.8-7.7 [facility] Comment on above: Performed By: #### T SH3, JER, T4F, CMP #### [place] [address] [place] #### ACTH #### [facility] , Neutrophils/100 WBC (Bld) 53.5 % Normal . [facility] Comment on above: Performed By: #### T SH3, JER, T4F, CMP #### [place] [address] [place] #### ACTH #### [facility] , NRBC% 0.0 /100{WBC} Normal 0-0.5 [facility] Comment on above: Performed By: #### T SH3, JER, T4F, CMP #### [address] #### ACTH #### [facility] , Platelet mean volume (Bld) [Entitic vol] 7.9 fL Normal 6.3-10.7 [facility] Comment on above: Performed By: #### T SH3, JER, T4F, CMP #### [place] [address] [place] #### ACTH #### [facility] , Platelets (Bld) [#/Vol] 258 10*3/uL Normal 150-450 [facility] Comment on above: Performed By: #### T SH3, JER, T4F, CMP #### [place] [address] [place] #### ACTH #### [facility] , RBC (Bld) [#/Vol] 4.07 10*6/uL Normal 3.60-5.00 [facility] Comment on above: Performed By: #### T SH3, JER, T4F, CMP #### [address] #### ACTH #### [facility] , WBC (Bld) [#/Vol] 6.5 10*3/uL Normal 3.8-11.6 [facility] Comment on above: Performed By: #### T SH3, JER, T4F, CMP #### [place] [address] [place] #### ACTH #### [facility] , Comprehensive Metabolic Pane malcom 03-14-2024 Albumin [Mass/Vol] 4.0 g/dL Normal 3.5-5.7 [facility] Comment on above: Order Comment: STAT BUN/CREAT FOR CT Performed By: #### A CTH #### [facility] , #### TSH3, T4F, JER, CMP #### [facility] [address] [place] [address] Albumin/Globulin [Mass ratio] 1.1 {ratio} Normal [facility] Comment on above: Order Comment: STAT BUN/CREAT FOR CT Performed By: #### A CTH #### [facility] , #### TSH3, T4F, JER, CMP #### [facility] [address] [place] [address] ALP [Catalytic activity/Vol] 181 U/L High 34-104 [facility] Comment on above: Order Comment: STAT BUN/CREAT FOR CT Performed By: #### A CTH #### [facility] , #### TSH3, T4F, JER, CMP #### [facility] [address] [place] [address] ALT [Catalytic activity/Vol] 28 U/L Normal 7-52 [facility] Comment on above: Order Comment: STAT BUN/CREAT FOR CT Performed By: #### A CTH #### [facility] , #### TSH3, T4F, JER, CMP #### [facility] [address] [place] [address] Anion gap [Moles/Vol] 11.0 mmol/L Normal 6.0-15.0 [facility] Comment on above: Order Comment: STAT BUN/CREAT FOR CT Performed By: #### A CTH #### [facility] , #### TSH3, T4F, JER, CMP #### [facility] [address] [place] [address] AST [Catalytic activity/Vol] 27 U/L Normal 13-39 [facility] Comment on above: Order Comment: STAT BUN/CREAT FOR CT Performed By: #### A CTH #### [facility] , #### TSH3, T4F, JER, CMP #### [facility] [address] [place] [address] Bilirubin [Mass/Vol] 0.5 mg/dL Normal 0.3-1.0 [facility] Comment on above: Order Comment: STAT BUN/CREAT FOR CT Performed By: #### A CTH #### [facility] , #### TSH3, T4F, JER, CMP #### [facility] [address] [place] [address] Calcium [Mass/Vol] 9.6 mg/dL Normal 8.6-10.3 [facility] Comment on above: Order Comment: STAT BUN/CREAT FOR CT Performed By: #### A CTH #### [facility] , #### TSH3, T4F, JER, CMP #### [address] Chloride [Moles/Vol] 98 mmol/L Normal 98-107 [facility] Comment on above: Order Comment: STAT BUN/CREAT FOR CT Performed By: #### A CTH #### [facility] , #### TSH3, T4F, JER, CMP #### [facility] [address] [place] [address] CO2 [Moles/Vol] 27.8 mmol/L Normal 21.0-31.0 [facility] Comment on above: Order Comment: STAT BUN/CREAT FOR CT Performed By: #### A CTH #### [facility] , #### TSH3, T4F, JER, CMP #### [facility] [address] [place] [address] [place] Creatinine [Mass/Vol] 0.87 mg/dL Normal 0.60-1.20 [facility] Comment on above: Order Comment: STAT BUN/CREAT FOR CT Performed By: #### A CTH #### [facility] , #### TSH3, T4F, JER, CMP #### [facility] [address] [place] [address] [place] Creatinine Clr Calc Pharmacy 59.34 Normal [facility] Comment on above: Order Comment: STAT BUN/CREAT FOR CT Result Comment: PERF ORMED BY: [place] [address] PATHOLOGIST MARKET DEVELOPER STEFANO HOLT M.D. Performed By: #### A CTH #### [facility] , #### TSH3, T4F, JER, CMP #### [place] [address] [place] GFR/1.73 sq M.predicted MDRD (S/P/Bld) [Vol rate/Area] mL/min/{1.73_m2} Normal [facility] Comment on above: Order Comment: STAT BUN/CREAT FOR CT Performed By: #### A CTH #### [facility] , #### TSH3, T4F, JER, CMP #### [address] Globulin (S) [Mass/Vol] 3.6 g/dL Normal [facility] Comment on above: Order Comment: STAT BUN/CREAT FOR CT Performed By: #### A CTH #### [facility] , #### TSH3, T4F, JER, CMP #### [address] Glucose [Mass/Vol] 96 mg/dL Normal 70-100 [facility] Comment on above: Order Comment: STAT BUN/CREAT FOR CT Result Comment: [place] Glucose Reference Range is dependent on time and content of last meal. Glucose of more than 200 mg/dL in a nonstressed, ambulatory subject supports the diagnosis of Diabetes Mellitus. ADA recommended reference range Performed By: #### A CTH #### [facility] , #### TSH3, T4F, JER, CMP #### [address] Potassium [Moles/Vol] 4.8 mmol/L Normal 3.5-5.1 [facility] Comment on above: Order Comment: STAT BUN/CREAT FOR CT Performed By: #### A CTH #### [facility] , #### TSH3, T4F, JER, CMP #### [facility] [address] [place] [address] Protein [Mass/Vol] 7.6 g/dL Normal 6.4-8.9 [facility] Comment on above: Order Comment: STAT BUN/CREAT FOR CT Performed By: #### A CTH #### [facility] , #### TSH3, T4F, JER, CMP #### [facility] [address] [place] [address] Sodium [Moles/Vol] 132 mmol/L Low 136-145 [facility] Comment on above: Order Comment: STAT BUN/CREAT FOR CT Performed By: #### A CTH #### [facility] , #### TSH3, T4F, JER, CMP #### [facility] [address] [place] [address] Urea nitrogen [Mass/Vol] 23 mg/dL Normal 7-25 [facility] Comment on above: Order Comment: STAT BUN/CREAT FOR CT Performed By: #### A CTH #### [facility] , #### TSH3, T4F, JER, CMP #### [facility] [address] [place] [address] [place] Adrenocorticotropic Hormone PLon 02-27-[address] 39.6 pg/mL Normal 7.2-63.3 [facility] Comment on above: Result Comment: ACTH reference interval for samples collected between 7 and 10 AM. Performed at: [facility] [address] [id number] Core Inserter: Juan Hendricks PhD, Phone: [phone] PERFORMED BY: [place] [address] PATHOLOGIST MARKET DEVELOPER STEFANO HOLT M.D. Performed By: #### T SH3, JER, T4F, CMP #### [address] #### ACTH #### [facility] , Complete Blood Count Auto Di ffon 02-27-2024 Basophils (Bld) [#/Vol] 0.2 10*3/uL Normal 0.0-0.2 [facility] Comment on above: Result Comment: PERF ORMED BY: [place] [address] PATHOLOGIST MARKET DEVELOPER STEFANO HOLT M.D. Performed By: #### A CTH #### [facility] , #### TSH3, T4F, JER, CMP #### [address] Basophils/100 WBC (Bld) 3.5 % Normal . [facility] Comment on above: Performed By: #### A CTH #### [facility] , #### TSH3, T4F, JER, CMP #### [address] Eosinophils (Bld) [#/Vol] 0.9 10*3/uL High 0.0-0.45 [facility] Comment on above: Performed By: #### A CTH #### [facility] , #### TSH3, T4F, JER, CMP #### [address] Eosinophils/100 WBC (Bld) 13.9 % Normal . [facility] Comment on above: Performed By: #### A CTH #### [facility] , #### TSH3, T4F, JER, CMP #### [address] Erythrocyte distribution width (RBC) [Ratio] 14.0 % Normal 11.9-15.3 [facility] Comment on above: Performed By: #### A CTH #### [facility] , #### TSH3, T4F, JER, CMP #### [address] Hematocrit (Bld) [Volume fraction] 35.5 % Normal 34.0-46.4 [facility] Comment on above: Performed By: #### A CT #### [facility] , #### TSH3, T4F, JER, CMP #### [address] Hemoglobin (Bld) [Mass/Vol] 11.7 g/dL Low 11.8-15.4 [facility] Comment on above: Performed By: #### A CTH #### [facility] , #### TSH3, T4F, JER, CMP #### [address] Lymphocytes (Bld) [#/Vol] 1.2 10*3/uL Normal 1.00-4.8 [facility] Comment on above: Performed By: #### A CT #### [facility] , #### TSH3, T4F, JER, CMP #### [address] Lymphocytes/100 WBC (Bld) 17.7 % Normal . [facility] Comment on above: Performed By: #### A CTH #### [facility] , #### TSH3, T4F, JER, CMP #### [address] MCH (RBC) [Entitic mass] 29.6 pg Normal 24.7-34.3 [facility] Comment on above: Performed By: #### A CTH #### [facility] , #### TSH3, T4F, JER, CMP #### [address] MCV (RBC) [Entitic vol] 89.5 fL Normal 80-100 [facility] Comment on above: Performed By: #### A CTH #### [facility] , #### TSH3, T4F, JER, CMP #### [address] Mean Corpuscular HGB Conc 33.0 g/dL Normal 32.0-35.0 [facility] Comment on above: Performed By: #### A CTH #### [facility] , #### TSH3, T4F, JER, CMP #### [address] Monocytes (Bld) [#/Vol] 0.7 10*3/uL Normal 0.0-0.8 [facility] Comment on above: Performed By: #### A CTH #### [facility] , #### TSH3, T4F, JER, CMP #### [address] Monocytes/100 WBC (Bld) 11.0 % Normal . [facility] Comment on above: Performed By: #### A CTH #### [facility] , #### TSH3, T4F, JER, CMP #### [address] Neutrophils (Bld) [#/Vol] 3.6 10*3/uL Normal 1.8-7.7 [facility] Comment on above: Performed By: #### A CTH #### [facility] , #### TSH3, T4F, JER, CMP #### [address] Neutrophils/100 WBC (Bld) 53.9 % Normal . [facility] Comment on above: Performed By: #### A CTH #### [facility] , #### TSH3, T4F, JER, CMP #### [address] NRBC% 0.2 /100{WBC} Normal 0-0.5 [facility] Comment on above: Performed By: #### A CTH #### [facility] , #### TSH3, T4F, JER, CMP #### [address] Platelet mean volume (Bld) [Entitic vol] 8.3 fL Normal 6.3-10.7 [facility] Comment on above: Performed By: #### A CTH #### [facility] , #### TSH3, T4F, JER, CMP #### [address] Platelets (Bld) [#/Vol] 262 10*3/uL Normal 150-450 [facility] Comment on above: Performed By: #### A CTH #### [facility] , #### TSH3, T4F, JER, CMP #### [address] RBC (Bld) [#/Vol] 3.97 10*6/uL Normal 3.60-5.00 [facility] Comment on above: Performed By: #### A CTH #### [facility] , #### TSH3, T4F, JER, CMP #### [address] WBC (Bld) [#/Vol] 6.7 10*3/uL Normal 3.8-11.6 [facility] Comment on above: Performed By: #### A CTH #### [facility] , #### TSH3, T4F, JER, CMP #### [address] Comprehensive Metabolic Pane malcom 02-27-2024 Albumin [Mass/Vol] 3.8 g/dL Normal 3.5-5.7 [facility] Comment on above: Performed By: #### A CTH #### [facility] , #### TSH3, T4F, JER, CMP #### [address] Albumin/Globulin [Mass ratio] 1.1 {ratio} Normal [facility] Comment on above: Performed By: #### A CTH #### [facility] , #### TSH3, T4F, JER, CMP #### [address] ALP [Catalytic activity/Vol] 370 U/L High 34-104 [facility] Comment on above: Performed By: #### A CTH #### [facility] , #### TSH3, T4F, JER, CMP #### [address] ALT [Catalytic activity/Vol] 143 U/L High 7-52 [facility] Comment on above: Performed By: #### A CTH #### [facility] , #### TSH3, T4F, JER, CMP #### [address] Anion gap [Moles/Vol] 8.9 mmol/L Normal 6.0-15.0 [facility] Comment on above: Performed By: #### A CTH #### [facility] , #### TSH3, T4F, JER, CMP #### [address] AST [Catalytic activity/Vol] 98 U/L High 13-39 [facility] Comment on above: Performed By: #### A CTH #### [facility] , #### TSH3, T4F, JER, CMP #### [address] Bilirubin [Mass/Vol] 0.6 mg/dL Normal 0.3-1.0 [facility] Comment on above: Performed By: #### A CTH #### [facility] , #### TSH3, T4F, JER, CMP #### [address] Calcium [Mass/Vol] 9.6 mg/dL Normal 8.6-10.3 [facility] Comment on above: Performed By: #### A CTH #### [facility] , #### TSH3, T4F, JER, CMP #### [address] Chloride [Moles/Vol] 97 mmol/L Low 98-107 [facility] Comment on above: Performed By: #### A CTH #### [facility] , #### TSH3, T4F, JER, CMP #### [address] CO2 [Moles/Vol] 29.6 mmol/L Normal 21.0-31.0 [facility] Comment on above: Performed By: #### A CTH #### [facility] , #### TSH3, T4F, JER, CMP #### [address] Creatinine [Mass/Vol] 0.80 mg/dL Normal 0.60-1.20 [facility] Comment on above: Performed By: #### A CTH #### [facility] , #### TSH3, T4F, EJR, CMP #### [address] Creatinine Clr Calc Pharmacy 64.54 Normal [facility] Comment on above: Performed By: #### A CTH #### [facility] , #### TSH3, T4F, JER, CMP #### [address] GFR/1.73 sq M.predicted MDRD (S/P/Bld) [Vol rate/Area] mL/min/{1.73_m2} Normal [facility] Comment on above: Performed By: #### A CT #### [facility] , #### TSH3, T4F, JER, CMP #### [facility] [address] Globulin (S) [Mass/Vol] 3.6 g/dL Normal [facility] Comment on above: Performed By: #### A CTH #### [facility] , #### TSH3, T4F, JER, CMP #### [address] Glucose [Mass/Vol] 95 mg/dL Normal 70-100 [facility] Comment on above: Result Comment: [place] Glucose Reference Range is dependent on time and content of last meal. Glucose of more than 200 mg/dL in a nonstressed, ambulatory subject supports the diagnosis of Diabetes Mellitus. ADA recommended reference range Performed By: #### A CTH #### [facility] , #### TSH3, T4F, JER, CMP #### [address] Potassium [Moles/Vol] 4.5 mmol/L Normal 3.5-5.1 [facility] Comment on above: Performed By: #### A CT #### [facility] , #### TSH3, T4F, JER, CMP #### [facility] [address] [place] [address] Protein [Mass/Vol] 7.4 g/dL Normal 6.4-8.9 [facility] Comment on above: Performed By: #### A CTH #### [facility] , #### TSH3, T4F, JER, CMP #### [facility] [address] [place] [address] [place] Sodium [Moles/Vol] 131 mmol/L Low 136-145 [facility] Comment on above: Performed By: #### A CTH #### [facility] , #### TSH3, T4F, JER, CMP #### [facility] [address] [place] [address] Urea nitrogen [Mass/Vol] 12 mg/dL Normal 7-25 [facility] Comment on above: Performed By: #### A CTH #### [facility] , #### TSH3, T4F, JER, CMP #### [facility] [address] [place] [address] Cortisolon 02-27-2024 Cortisol 17.4 ug/dL Normal [facility] Comment on above: Result Comment: Refe rence range: AM 6 - 24 ug/dl PM <10 ug/dl [facility] awning hanger helper and method: C2C REI SoftwareEL DXI, POLYCLONAL ANTIBODY CORTISOL ASSAY. PERFORMED BY: [place] [address] PATHOLOGIST MARKET DEVELOPER STEFANO HOLT M.D. Performed By: #### T SH3, JER, T4F, CMP #### [address] #### ACTH #### [facility] , No Panel InformationOrdered By: Aries Chavez on 02-27-2024 Adrenocorticotropic Hormone 39.6 pg/mL 7.2-63.3 [facility] Comment on above: ACTH reference inter wendy for samples collected between 7 and10 AM.Performed at: [address] [id number] Director: Juan Hendricks PhD, Phone: [phone] Random cortisol measurementO rdered By: Aries Chavez on 02-27-2024 Cortisol [Mass/Vol] 17.4 ug/dL [facility] Comment on above: [facility] awning hanger helper and method:[employer] UNICEL DXI, POLYCLONAL ANTIBODY CORTISOL ASSAY.Reference range: AM 6 - 24 ug/dl PM <10 ug/dl Thyrotropin [Units/volume] i n Serum or PlasmaOrdered By: Aries Chavez on 02-27-2024 TSH Qn 23.15 m[IU]/L High 0.45-5.33 [facility] Comment on above: Performed By: #### T SH3, JER, T4F, CMP #### [facility] [address] [place] [address] #### ACTH #### [facility] , Thyroxine (T4) free [Mass/vo lume] in Serum or PlasmaOrdered By: Aries Chavez on 02-27-2024 Free T4 [Mass/Vol] 0.91 ng/dL Normal 0.61-1.12 [facility] Comment on above: Performed By: #### T SH3, JER, T4F, CMP #### [facility] [address] [place] [address] #### ACTH #### [facility] , Adrenocorticotropic Hormone PLon 01-16-[address] 34.0 pg/mL Normal 7.2-63.3 [facility] Comment on above: Result Comment: ACTH reference interval for samples collected between 7 and 10 AM. Performed at: [place] [id number] Core Inserter: Juan Hendricks PhD, Phone: [phone] PERFORMED BY: [place] [address] PATHOLOGIST MARKET DEVELOPER STEFANO HOLT M.D. Performed By: #### A CTH #### [facility] , #### TSH3, T4F, JER, CMP #### [address] Complete Blood Count Auto Di ffon 01-16-2024 Basophils (Bld) [#/Vol] 0.2 10*3/uL Normal 0.0-0.2 [facility] Comment on above: Result Comment: PERF ORMED BY: [place] [address] PATHOLOGIST MARKET DEVELOPER STEFANO HOLT M.D. Performed By: #### A CTH #### [facility] , #### TSH3, T4F, JER, CMP #### [address] Basophils/100 WBC (Bld) 2.5 % Normal . [facility] Comment on above: Performed By: #### A CTH #### [facility] , #### TSH3, T4F, JER, CMP #### [address] Eosinophils (Bld) [#/Vol] 0.5 10*3/uL High 0.0-0.45 [facility] Comment on above: Performed By: #### A CTH #### [facility] , #### TSH3, T4F, JER, CMP #### [address] Eosinophils/100 WBC (Bld) 8.2 % Normal . [facility] Comment on above: Performed By: #### A CTH #### [facility] , #### TSH3, T4F, JER, CMP #### [address] Erythrocyte distribution width (RBC) [Ratio] 18.1 % High 11.9-15.3 [facility] Comment on above: Performed By: #### A CTH #### [facility] , #### TSH3, T4F, JER, CMP #### [address] Hematocrit (Bld) [Volume fraction] 35.0 % Normal 34.0-46.4 [facility] Comment on above: Performed By: #### A CTH #### [facility] , #### TSH3, T4F, JER, CMP #### [address] Hemoglobin (Bld) [Mass/Vol] 11.5 g/dL Low 11.8-15.4 [facility] Comment on above: Performed By: #### A CTH #### [facility] , #### TSH3, T4F, JER, CMP #### [address] Lymphocytes (Bld) [#/Vol] 1.0 10*3/uL Normal 1.00-4.8 [facility] Comment on above: Performed By: #### A CTH #### [facility] , #### TSH3, T4F, JER, CMP #### [address] Lymphocytes/100 WBC (Bld) 15.2 % Normal . [facility] Comment on above: Performed By: #### A CTH #### [facility] , #### TSH3, T4F, JER, CMP #### [address] MCH (RBC) [Entitic mass] 28.2 pg Normal 24.7-34.3 [facility] Comment on above: Performed By: #### A CTH #### [facility] , #### TSH3, T4F, JER, CMP #### [address] MCV (RBC) [Entitic vol] 85.5 fL Normal 80-100 [facility] Comment on above: Performed By: #### A CTH #### [facility] , #### TSH3, T4F, JER, CMP #### [address] Mean Corpuscular HGB Conc 32.9 g/dL Normal 32.0-35.0 [facility] Comment on above: Performed By: #### A CTH #### [facility] , #### TSH3, T4F, JER, CMP #### [address] Monocytes (Bld) [#/Vol] 0.6 10*3/uL Normal 0.0-0.8 [facility] Comment on above: Performed By: #### A CT #### [facility] , #### TSH3, T4F, JER, CMP #### [address] Monocytes/100 WBC (Bld) 9.5 % Normal . [facility] Comment on above: Performed By: #### A CTH #### [facility] , #### TSH3, T4F, JER, CMP #### [address] Neutrophils (Bld) [#/Vol] 4.2 10*3/uL Normal 1.8-7.7 [facility] Comment on above: Performed By: #### A CT #### [facility] , #### TSH3, T4F, JER, CMP #### [address] Neutrophils/100 WBC (Bld) 64.6 % Normal . [facility] Comment on above: Performed By: #### A CT #### [facility] , #### TSH3, T4F, JER, CMP #### [address] NRBC% 0.1 /100{WBC} Normal 0-0.5 [facility] Comment on above: Performed By: #### A CT #### [facility] , #### TSH3, T4F, JER, CMP #### [address] Platelet mean volume (Bld) [Entitic vol] 7.9 fL Normal 6.3-10.7 [facility] Comment on above: Performed By: #### A CT #### [facility] , #### TSH3, T4F, JER, CMP #### [address] Platelets (Bld) [#/Vol] 272 10*3/uL Normal 150-450 [facility] Comment on above: Performed By: #### A CTH #### [facility] , #### TSH3, T4F, JER, CMP #### [address] RBC (Bld) [#/Vol] 4.09 10*6/uL Normal 3.60-5.00 [facility] Comment on above: Performed By: #### A CTH #### [facility] , #### TSH3, T4F, JER, CMP #### [address] WBC (Bld) [#/Vol] 6.5 10*3/uL Normal 3.8-11.6 [facility] Comment on above: Performed By: #### A CT #### [facility] , #### TSH3, T4F, JER, CMP #### [address] Comprehensive Metabolic Pane malcom 01-16-2024 Albumin [Mass/Vol] 3.9 g/dL Normal 3.5-5.7 [facility] Comment on above: Performed By: #### A CT #### [facility] , #### TSH3, T4F, JER, CMP #### [address] Albumin/Globulin [Mass ratio] 1.1 {ratio} Normal [facility] Comment on above: Performed By: #### A CTH #### [facility] , #### TSH3, T4F, JER, CMP #### [address] ALP [Catalytic activity/Vol] 115 U/L High 34-104 [facility] Comment on above: Performed By: #### A CTH #### [facility] , #### TSH3, T4F, JER, CMP #### [address] ALT [Catalytic activity/Vol] 49 U/L Normal 7-52 [facility] Comment on above: Performed By: #### A CTH #### [facility] , #### TSH3, T4F, JER, CMP #### [address] Anion gap [Moles/Vol] 7.1 mmol/L Normal 6.0-15.0 [facility] Comment on above: Performed By: #### A CTH #### [facility] , #### TSH3, T4F, JER, CMP #### [address] AST [Catalytic activity/Vol] 43 U/L High 13-39 [facility] Comment on above: Performed By: #### A CTH #### [facility] , #### TSH3, T4F, JER, CMP #### [address] Bilirubin [Mass/Vol] 0.6 mg/dL Normal 0.3-1.0 [facility] Comment on above: Performed By: #### A CTH #### [facility] , #### TSH3, T4F, JER, CMP #### [address] Calcium [Mass/Vol] 9.5 mg/dL Normal 8.6-10.3 [facility] Comment on above: Performed By: #### A CTH #### [facility] , #### TSH3, T4F, JER, CMP #### [address] Chloride [Moles/Vol] 99 mmol/L Normal 98-107 [facility] Comment on above: Performed By: #### A CTH #### [facility] , #### TSH3, T4F, JER, CMP #### [address] CO2 [Moles/Vol] 29.3 mmol/L Normal 21.0-31.0 [facility] Comment on above: Performed By: #### A CTH #### [facility] , #### TSH3, T4F, JER, CMP #### [address] Creatinine [Mass/Vol] 0.68 mg/dL Normal 0.60-1.20 [facility] Comment on above: Performed By: #### A CTH #### [facility] , #### TSH3, T4F, JER, CMP #### [address] Creatinine Clr Calc Pharmacy 64.54 Normal [facility] Comment on above: Performed By: #### A CTH #### [facility] , #### TSH3, T4F, JER, CMP #### [address] GFR/1.73 sq M.predicted MDRD (S/P/Bld) [Vol rate/Area] mL/min/{1.73_m2} Normal [facility] Comment on above: Performed By: #### A CTH #### [facility] , #### TSH3, T4F, JER, CMP #### [address] Globulin (S) [Mass/Vol] 3.7 g/dL Normal [facility] Comment on above: Performed By: #### A CTH #### [facility] , #### TSH3, T4F, JER, CMP #### [address] Glucose [Mass/Vol] 92 mg/dL Normal 70-100 [facility] Comment on above: Result Comment: [place] Glucose Reference Range is dependent on time and content of last meal. Glucose of more than 200 mg/dL in a nonstressed, ambulatory subject supports the diagnosis of Diabetes Mellitus. ADA recommended reference range Performed By: #### A CT #### [facility] , #### TSH3, T4F, JER, CMP #### [place] [address] [place] Potassium [Moles/Vol] 4.4 mmol/L Normal 3.5-5.1 [facility] Comment on above: Performed By: #### A CT #### [facility] , #### TSH3, T4F, JER, CMP #### [address] Protein [Mass/Vol] 7.6 g/dL Normal 6.4-8.9 [facility] Comment on above: Performed By: #### A CT #### [facility] , #### TSH3, T4F, JER, CMP #### [place] [address] [place] Sodium [Moles/Vol] 131 mmol/L Low 136-145 [facility] Comment on above: Performed By: #### A CT #### [facility] , #### TSH3, T4F, JER, CMP #### [place] [address] [place] Urea nitrogen [Mass/Vol] 16 mg/dL Normal 7-25 [facility] Comment on above: Performed By: #### A CTH #### [facility] , #### TSH3, T4F, JER, CMP #### [place] [address] [place] Cortisolon 01-16-2024 Cortisol 14.4 ug/dL Normal [facility] Comment on above: Result Comment: Refe rence range: AM 6 - 24 ug/dl PM <10 ug/dl [facility] awning hanger helper and method: AMRITA UNICEL DXI, POLYCLONAL ANTIBODY CORTISOL ASSAY. PERFORMED BY: [place] [address] PATHOLOGIST MARKET DEVELOPER STEFANO HOLT M.D. Performed By: #### A CTH #### [facility] , #### TSH3, T4F, JER, CMP #### [facility] [address] [place] [address] Free T4 (Free Thyroxine)on 0 01-16-2024 Free T4 [Mass/Vol] 0.56 ng/dL Low 0.61-1.12 [facility] Comment on above: Performed By: #### A CTH #### [facility] , #### TSH3, T4F, JER, CMP #### [address] Thyroid Stimulating Hormoneo n 01-16-2024 TSH Qn 35.64 m[IU]/L High 0.45-5.33 [facility] Comment on above: Performed By: #### A CTH #### [facility] , #### TSH3, T4F, JER, CMP #### [facility] [address] [place] [address] Absolute reticulocyte countO rdered By: Aries Chavez on 12-28-2023 Reticulocytes (Bld) [#/Vol] 0.068 10*6/uL 0.024-0.08 4 [facility] Adrenocorticotropic Hormone PLon 12-28-[address] 11.2 pg/mL Normal 7.2-63.3 [facility] Comment on above: Result Comment: ACTH reference interval for samples collected between 7 and 10 AM. Performed at: [facility] [address] [id number] Core Inserter: Juan Hendricks PhD, Phone: [phone] PERFORMED BY: [place] [address] PATHOLOGIST MARKET DEVELOPER STEFANO HOLT M.D. Performed By: #### [facility] #### [facility] , #### TSH3, T4F, JER, CMP #### [address] Alanine aminotransferase [En zymatic activity/volume] in Serum or PlasmaOrdered By: Aries Chavez on 12-28-2023 ALT [Catalytic activity/Vol] 23 U/L Normal 7-52 [facility] Comment on above: Performed By: #### A CT #### [facility] , #### TSH3, T4F, JER, CMP #### [address] Albumin [Mass/volume] in Ser um or Plasma by Bromocresol green (BCG) dye binding methoOrdered By: Aries Chavez on 12-28-2023 Albumin BCG dye [Mass/Vol] 3.8 g/dL 3.5-5.7 [facility] Alkaline phosphatase [Enzyma tic activity/volume] in Serum or PlasmaOrdered By: Aries Chavez on 12-28-2023 ALP [Catalytic activity/Vol] 93 U/L Normal 34-104 [facility] Comment on above: Performed By: #### A CT #### [facility] , #### TSH3, T4F, JER, CMP #### [place] [address] [place] Aspartate aminotransferase [ Enzymatic activity/volume] in Serum or PlasmaOrdered By: Aries Chavez on 12-28-2023 AST [Catalytic activity/Vol] 25 U/L Normal 13-39 [facility] Comment on above: Performed By: #### A CT #### [facility] , #### TSH3, T4F, JER, CMP #### [facility] [address] [place] [address] Automated basophil %Ordered By: Aries Chavez on 12-28-2023 Basophils/100 WBC (Bld) 2.8 % Normal . [facility] Comment on above: Performed By: #### A CT #### [facility] , #### TSH3, T4F, JER, CMP #### [address] Automated basophil countOrde red By: Aries Chavez on 12-28-2023 Basophils (Bld) [#/Vol] 0.2 10*3/uL Normal 0.0-0.2 [facility] Comment on above: Performed By: #### A CT #### [facility] , #### TSH3, T4F, JER, CMP #### [address] Automated blood monocyte cou ntOrdered By: Aries Chavez on 12-28-2023 Monocytes (Bld) [#/Vol] 0.6 10*3/uL Normal 0.0-0.8 [facility] Comment on above: Performed By: #### A CT #### [facility] , #### TSH3, T4F, JER, CMP #### [address] Automated eosinophil %Ordere d By: Aries Chavez on 12-28-2023 Eosinophils/100 WBC (Bld) 6.4 % Normal . [facility] Comment on above: Performed By: #### A CT #### [facility] , #### TSH3, T4F, JER, CMP #### [address] Automated eosinophil countOr dered By: Aries Chavez on 12-28-2023 Eosinophils (Bld) [#/Vol] 0.5 10*3/uL High 0.0-0.45 [facility] Comment on above: Performed By: #### A CTH #### [facility] , #### TSH3, T4F, JER, CMP #### [address] [place] [address] [place] Automated monocyte %Ordered By: Aries Chavez on 12-28-2023 Monocytes/100 WBC (Bld) 8.1 % Normal . [facility] Comment on above: Performed By: #### A CT #### [facility] , #### TSH3, T4F, JER, CMP #### [address] Automated neutrophil %Ordere d By: Aries Chavez on 12-28-2023 Neutrophils/100 WBC (Bld) 65.6 % Normal . [facility] Comment on above: Performed By: #### A CT #### [facility] , #### TSH3, T4F, JER, CMP #### [address] Bilirubin.total [Mass/volume ] in Serum or PlasmaOrdered By: Aries Chavez on 12-28-2023 Bilirubin [Mass/Vol] 0.4 mg/dL Normal 0.3-1.0 [facility] Comment on above: Performed By: #### A CT #### [facility] , #### TSH3, T4F, JER, CMP #### [address] Calcium [Mass/volume] in Ser um or PlasmaOrdered By: Aries Chavez on 12-28-2023 Calcium [Mass/Vol] 9.5 mg/dL Normal 8.6-10.3 [facility] Comment on above: Performed By: #### A CT #### [facility] , #### TSH3, T4F, JER, CMP #### [address] Carbon dioxide, total [Moles /volume] in Serum or PlasmaOrdered By: Aries Chavez on 12-28-2023 CO2 [Moles/Vol] 29.5 mmol/L Normal 21.0-31.0 [facility] Comment on above: Performed By: #### A CTH #### [facility] , #### TSH3, T4F, JER, CMP #### [facility] [address] [place] [address] Chloride [Moles/volume] in S leena or PlasmaOrdered By: Aries Chavez on 12-28-2023 Chloride [Moles/Vol] 94 mmol/L Low 98-107 [facility] Comment on above: Performed By: #### A CTH #### [facility] , #### TSH3, T4F, JER, CMP #### [facility] [address] [place] [address] Complete Blood Count Auto Di ffon 12-28-2023 Mean Corpuscular HGB Conc 32.6 g/dL Normal 32.0-35.0 [facility] Comment on above: Performed By: #### A CTH #### [facility] , #### TSH3, T4F, JER, CMP #### [facility] [address] [place] [address] NRBC% 0.1 /100{WBC} Normal 0-0.5 [facility] Comment on above: Performed By: #### A CTH #### [facility] , #### TSH3, T4F, JER, CMP #### [facility] [address] [place] [address] Comprehensive Metabolic Pane malcom 12-28-2023 Albumin [Mass/Vol] 3.8 g/dL Normal 3.5-5.7 [facility] Comment on above: Performed By: #### A CTH #### [facility] , #### TSH3, T4F, JER, CMP #### [facility] [address] [place] [address] Creatinine Clr Calc Pharmacy 59.72 Normal [facility] Comment on above: Performed By: #### A CTH #### [facility] , #### TSH3, T4F, JER, CMP #### [address] GFR/1.73 sq M.predicted MDRD (S/P/Bld) [Vol rate/Area] mL/min/{1.73_m2} Normal [facility] Comment on above: Performed By: #### A CT #### [facility] , #### TSH3, T4F, JRE, CMP #### [address] Cortisolon 12-28-2023 Cortisol 13.7 ug/dL Normal [facility] Comment on above: Result Comment: Refe rence range: AM 6 - 24 ug/dl PM <10 ug/dl [facility] awning hanger helper and method: WIDIP DXI, POLYCLONAL ANTIBODY CORTISOL ASSAY. PERFORMED BY: [place] [address] PATHOLOGIST MARKET DEVELOPER STEFANO HOLT M.D. Performed By: #### A CTH #### [facility] , #### TSH3, T4F, JER, CMP #### [address] Creatinine [Mass/volume] in Serum or PlasmaOrdered By: Aries Chavez on 12-28-2023 Creatinine [Mass/Vol] 0.77 mg/dL Normal 0.60-1.20 [facility] Comment on above: Performed By: #### A CTH #### [facility] , #### TSH3, T4F, JER, CMP #### [address] Erythrocyte distribution wid th [Ratio] by Automated countOrdered By: Aries Chavez on 12-28-2023 Erythrocyte distribution width (RBC) [Ratio] 18.2 % High 11.9-15.3 [facility] Comment on above: Performed By: #### A CTH #### [facility] , #### TSH3, T4F, JER, CMP #### [address] Erythrocytes [#/volume] in B lood by Automated countOrdered By: Aries Chavez on 12-28-2023 RBC (Bld) [#/Vol] 4.15 10*6/uL Normal 3.60-5.00 [facility] Comment on above: Performed By: #### A CTH #### [facility] , #### TSH3, T4F, JER, CMP #### [address] Erythropoetin (EPO), Serumon 12-28-2023 Erythropoetin (EPO), Serum 3.5 m[iU]/mL Normal 2.6-18.5 [facility] Comment on above: Result Comment: [place]gression DxI 800 Immunoassay System Values obtained with different assay methods or kits cannot be used interchangeably. Results cannot be interpreted as absolute evidence of the presence or absence of malignant disease. Performed at: [facility] [address] [id number] Core Inserter: Juan Hendricks PhD, Phone: [phone] PERFORMED BY: [place] [address] PATHOLOGIST MARKET DEVELOPER STEFANO HOLT M.D. Performed By: #### A CT #### [facility] , #### TSH3, T4F, JER, CMP #### [address] Ferritin [Mass/volume] in Se rum or PlasmaOrdered By: Nedra Moon on 12-28-2023 Ferritin [Mass/Vol] 397.8 ng/mL High 11.0-306.8 [facility] Comment on above: Performed By: #### A CTH #### [facility] , #### TSH3, T4F, JER, CMP #### [address] Folate [Mass/volume] in Seru m or PlasmaOrdered By: Aries Chavez on 12-28-2023 Folate [Mass/Vol] 13.7 ng/mL >5.9 [facility] Comment on above: Folate reference ran ge: >5.9 ng/mlThe WHO technical consultation on folate and vitamin [id number] has determined that folate concentrations lessthan 4 ng/ml are considered deficient. Glucose [Mass/volume] in Ser um or PlasmaOrdered By: Aries Chavez on 12-28-2023 Glucose [Mass/Vol] 95 mg/dL Normal 70-100 [facility] Comment on above: ADA recommended refe rence rangeRandom Glucose Reference Range is dependent on time and content of last meal. Glucose of more than 200 mg/dL in a nonstressed, ambulatory subject supports the diagnosis of Diabetes Mellitus. Result Comment: [place] om Glucose Reference Range is dependent on time and content of last meal. Glucose of more than 200 mg/dL in a nonstressed, ambulatory subject supports the diagnosis of Diabetes Mellitus. ADA recommended reference range Performed By: #### [facility] #### [facility] , #### TSH3, T4F, JER, CMP #### [facility] [address] Hematocrit [Volume Fraction] of Blood by Automated countOrdered By: Aries Chavez on 12-28-2023 Hematocrit (Bld) [Volume fraction] 34.9 % Normal 34.0-46.4 [facility] Comment on above: Performed By: #### [facility] #### [facility] , #### TSH3, T4F, JER, CMP #### [facility] [address] Hemoglobin [Mass/volume] in BloodOrdered By: Aries Chavez on 12-28-2023 Hemoglobin (Bld) [Mass/Vol] 11.4 g/dL Low 11.8-15.4 [facility] Comment on above: Performed By: #### [facility] #### [facility] , #### TSH3, T4F, JER, CMP #### [facility] [address] [place] [address] Iron [Mass/volume] in Serum or PlasmaOrdered By: Aries Chavez on 12-28-2023 Iron [Mass/Vol] 144 ug/dL Normal 50-212 [facility] Comment on above: Performed By: #### A CTH #### [facility] , #### TSH3, T4F, JER, CMP #### [facility] [address] [place] [address] Iron and TIBC Profileon 12-01 % Iron Saturation 46.3 % Normal 20-50 [facility] Comment on above: Performed By: #### A CTH #### [facility] , #### TSH3, T4F, JER, CMP #### [address] Total Iron Binding Capacity 311 ug/dL Normal 255-450 [facility] Comment on above: Performed By: #### A CTH #### [facility] , #### TSH3, T4F, JER, CMP #### [facility] [address] [place] [address] [place] Iron binding capacity [Mass/ volume] in Serum or PlasmaOrdered By: Aries Chavez on 12-28-2023 Iron binding capacity [Mass/Vol] 311 ug/dL 255-450 [facility] Iron saturation [Mass Fracti on] in Serum or PlasmaOrdered By: Aries Chavez on 12-28-2023 Iron saturation [Mass fraction] 46.3 % 20-50 [facility] LDH Lactate Dehydrogenaseon 12-28-2023 LDH Lactate Dehydrogenase 135 U/L Low 140-271 [facility] Comment on above: Performed By: #### A CTH #### [facility] , #### TSH3, T4F, JER, CMP #### [facility] [address] [place] [address] [place] Lactate dehydrogenase [Enzym atic activity/volume] in Serum or Plasma by Lactate to pyOrdered By: Aries Chavez on 12-28-2023 LDH Lactate to pyruvate reaction [Catalytic activity/Vol] 135 U/L Low 140-271 [facility] Leukocytes [#/volume] correc gabriel for nucleated erythrocytes in Blood by Automated counOrdered By: Aries Chavez on 12-28-2023 WBC corrected for nucl RBC Auto (Bld) [#/Vol] 7.6 10*3/uL 3.8-11.6 [facility] Leukocytes [#/volume] in Blo od by Automated countOrdered By: Aries Chavez on 12-28-2023 WBC (Bld) [#/Vol] 7.6 10*3/uL Normal 3.8-11.6 [facility] Comment on above: Performed By: #### A CT #### [facility] , #### TSH3, T4F, JER, CMP #### [facility] [address] [place] [address] [place] Lymphocytes [#/volume] in Bl ood by Automated countOrdered By: Aries Chavez on 12-28-2023 Lymphocytes (Bld) [#/Vol] 1.3 10*3/uL Normal 1.00-4.8 [facility] Comment on above: Performed By: #### A CT #### [facility] , #### TSH3, T4F, JER, CMP #### [facility] [address] [place] [address] [place] Lymphocytes/100 leukocytes i n Blood by Automated countOrdered By: Aries Chavez on 12-28-2023 Lymphocytes/100 WBC (Bld) 17.1 % Normal . [facility] Comment on above: Performed By: #### A CT #### [facility] , #### TSH3, T4F, JER, CMP #### [facility] [address] [place] [address] [place] MCH [Entitic mass] by Automa gabriel countOrdered By: Aries Chavez on 12-28-2023 MCH (RBC) [Entitic mass] 27.4 pg Normal 24.7-34.3 [facility] Comment on above: Performed By: #### [facility] #### [facility] , #### TSH3, T4F, JER, CMP #### [address] MCHC Auto (RBC) [Mass/Vol]Or dered By: Aries Chavez on 12-28-2023 MCHC (RBC) [Mass/Vol] 32.6 g/dL 32.0-35.0 [facility] MCV [Entitic volume] by Auto mated countOrdered By: Aries Chavez on 12-28-2023 MCV (RBC) [Entitic vol] 84.1 fL Normal 80-100 [facility] Comment on above: Performed By: #### [facility] #### [facility] , #### TSH3, T4F, JER, CMP #### [address] Neutrophils [#/volume] in Bl ood by Automated countOrdered By: Aries Chavez on 12-28-2023 Neutrophils (Bld) [#/Vol] 5.0 10*3/uL Normal 1.8-7.7 [facility] Comment on above: Performed By: #### [facility] #### [facility] , #### TSH3, T4F, JER, CMP #### [facility] [address] [place] [address] No Panel InformationOrdered By: Aries Chavez on 12-28-2023 Adrenocorticotropic Hormone 11.2 pg/mL 7.2-63.3 [facility] Comment on above: ACTH reference inter wendy for samples collected between 7 and10 AM.Performed at: [facility] [id number] Director: Juan Hendricks PhD, Phone: [phone] Estimated GFR (CKD-EPI) > 60.0 mL/Min [facility] Creatinine Clearance (Chem 59.72 [facility] Nucleated erythrocytes [Pres ence] in Blood by Automated countOrdered By: Aries Chavez on 12-28-2023 Nucleated RBC Auto Ql (Bld) 0.1 /100{WBC} 0-0.5 [facility] Platelet mean volume [Entiti c volume] in Blood by Automated countOrdered By: Aries Chavez on 12-28-2023 Platelet mean volume (Bld) [Entitic vol] 8.1 fL Normal 6.3-10.7 [facility] Comment on above: Performed By: #### A CT #### [facility] , #### TSH3, T4F, JER, CMP #### [facility] [address] [place] [address] [place] Platelets [#/volume] in Bloo d by Automated countOrdered By: Aries Chavez on 12-28-2023 Platelets (Bld) [#/Vol] 344 10*3/uL Normal 150-450 [facility] Comment on above: Performed By: #### A CT #### [facility] , #### TSH3, T4F, JER, CMP #### [facility] [address] [place] [address] [place] Potassium [Moles/volume] in Serum or PlasmaOrdered By: Aries Chavez on 12-28-2023 Potassium [Moles/Vol] 4.8 mmol/L Normal 3.5-5.1 [facility] Comment on above: Performed By: #### A CT #### [facility] , #### TSH3, T4F, JER, CMP #### [facility] [address] [place] [address] [place] Protein [Mass/volume] in Ser um or PlasmaOrdered By: Aries Chavez on 12-28-2023 Protein [Mass/Vol] 7.8 g/dL Normal 6.4-8.9 [facility] Comment on above: Performed By: #### A CT #### [facility] , #### TSH3, T4F, JRE, CMP #### [address] Random cortisol measurementO rdered By: Aries Chavez on 12-28-2023 Cortisol [Mass/Vol] 13.7 ug/dL [facility] Comment on above: [facility] awning hanger helper and method:AMRITA UNICEL DXI, POLYCLONAL ANTIBODY CORTISOL ASSAY.Reference range: AM 6 - 24 ug/dl PM <10 ug/dl Reticulocyte Counton 024 Reticulocyte Number 0.068 10*6/uL Normal 0.024-0 .08 4 [facility] Comment on above: Result Comment: PERF ORMED BY: [place] [address] PATHOLOGIST MARKET DEVELOPER STEFANO HOLT M.D. Performed By: #### A CTH #### [facility] , #### TSH3, T4F, JER, CMP #### [address] Reticulocyte Percent 1.6 % High 0.5-1.5 [facility] Comment on above: Performed By: #### A CTH #### [facility] , #### TSH3, T4F, JER, CMP #### [place] [address] [place] Reticulocytes/100 RBC Auto ( Bld)Ordered By: Aries Chavez on 12-28-2023 Reticulocytes/100 RBC (Bld) 1.6 % High 0.5-1.5 [facility] Serum globulin measurement b y calculation (mass/volume)Ordered By: Aries Chavez on 12-28-2023 Globulin (S) [Mass/Vol] 4.0 g/dL Normal [facility] Comment on above: Performed By: #### A CTH #### [facility] , #### TSH3, T4F, JER, CMP #### [address] Serum or plasma albumin/glob ulin mass ratioOrdered By: Aries Chavez on 12-28-2023 Albumin/Globulin [Mass ratio] 1.0 {ratio} Normal [facility] Comment on above: Performed By: #### A CT #### [facility] , #### TSH3, T4F, JER, CMP #### [address] Serum or plasma anion gap de terminationOrdered By: Aries Chavez on 12-28-2023 Anion gap [Moles/Vol] 9.3 mmol/L Normal 6.0-15.0 [facility] Comment on above: Performed By: #### A CT #### [facility] , #### TSH3, T4F, JER, CMP #### [address] Serum or plasma erythropoiet in (EPO) measurement (units/volume)Ordered By: Aries Chavez on 12-28-2023 Erythropoietin (EPO) Qn 3.5 mIU/mL 2.6-18.5 [facility] Comment on above: [employer] DxI 800 Immunoassay SystemValues obtained with different assay methods or kits cannotbe used interchangeably. Results cannot be interpreted asabsolute evidence of the presence or absence of malignantdisease.Performed at: [place] [id number] Director: Juan Hendricks PhD, Phone: [phone] Sodium [Moles/volume] in Ser um or PlasmaOrdered By: Aries Chavez on 12-28-2023 Sodium [Moles/Vol] 128 mmol/L Low 136-145 [facility] Comment on above: Performed By: #### A CT #### [facility] , #### TSH3, T4F, JER, CMP #### [address] Thyrotropin [Units/volume] i n Serum or PlasmaOrdered By: Aries Chavez on 12-28-2023 TSH Qn 18.92 m[IU]/L High 0.45-5.33 [facility] Comment on above: Performed By: #### A CT #### [facility] , #### TSH3, T4F, JER, CMP #### [facility] [address] Thyroxine (T4) free [Mass/vo lume] in Serum or PlasmaOrdered By: Aries Chavez on 12-28-2023 Free T4 [Mass/Vol] 0.37 ng/dL Low 0.61-1.12 [facility] Comment on above: Performed By: #### A CT #### [facility] , #### TSH3, T4F, JER, CMP #### [facility] [address] [place] [address] Transferrin [Mass/volume] in Serum or PlasmaOrdered By: Aries Chavez on 12-28-2023 Transferrin [Mass/Vol] 222 mg/dL Normal 203-362 [facility] Comment on above: Performed By: #### A CT #### [facility] , #### TSH3, T4F, JER, CMP #### [facility] [address] [place] [address] Urea nitrogen [Mass/volume] in Serum or PlasmaOrdered By: Aries Chavez on 12-28-2023 Urea nitrogen [Mass/Vol] 14 mg/dL Normal 7-25 [facility] Comment on above: Performed By: #### A CT #### [facility] , #### TSH3, T4F, JER, CMP #### [facility] [address] [place] [address] Vit. B12/Folate Profileon Folate 13.7 ng/mL Normal >5.9 [facility] Comment on above: Result Comment: Chelsie te reference range: >5.9 ng/ml The WHO technical consultation on folate and vitamin b12 deficiencies has determined that folate concentrations less than 4 ng/ml are considered deficient. Performed By: #### A CTH #### [facility] , #### TSH3, T4F, JER, CMP #### [address] Vitamin B12 ser/plasOrdered By: Aries Chavez on 12-28-2023 Cobalamin (Vitamin B12) [Mass/Vol] 333 pg/mL Normal 180-914 [facility] Comment on above: Performed By: #### A CTH #### [facility] , #### TSH3, T4F, JER, CMP #### [place] [address] [place] Adrenocorticotropic Hormone PLon 12-05-[address] 31.7 pg/mL Normal 7.2-63.3 [facility] Comment on above: Result Comment: ACTH reference interval for samples collected between 7 and 10 AM. Performed at: [address] [id number] Core Inserter: Juan Hendricks PhD, Phone: [phone] PERFORMED BY: [place] [address] PATHOLOGIST MARKET DEVELOPER STEFANO HOLT M.D. Performed By: #### A CTH #### [facility] , #### TSH3, T4F, JER, CMP #### [address] Complete Blood Count Auto Di ffon 12-05-2023 Basophils (Bld) [#/Vol] 0.1 10*3/uL Normal 0.0-0.2 [facility] Comment on above: Result Comment: PERF ORMED BY: [place] [address] PATHOLOGIST MARKET DEVELOPER STEFANO HOLT M.D. Performed By: #### A CTH #### [facility] , #### TSH3, T4F, JER, CMP #### [address] Basophils/100 WBC (Bld) 1.5 % Normal . [facility] Comment on above: Performed By: #### A CT #### [facility] , #### TSH3, T4F, JER, CMP #### [address] Eosinophils (Bld) [#/Vol] 0.4 10*3/uL Normal 0.0-0.45 [facility] Comment on above: Performed By: #### A CTH #### [facility] , #### TSH3, T4F, JER, CMP #### [address] Eosinophils/100 WBC (Bld) 5.6 % Normal . [facility] Comment on above: Performed By: #### A CTH #### [facility] , #### TSH3, T4F, JER, CMP #### [address] Erythrocyte distribution width (RBC) [Ratio] 18.1 % High 11.9-15.3 [facility] Comment on above: Performed By: #### A CTH #### [facility] , #### TSH3, T4F, JER, CMP #### [address] Hematocrit (Bld) [Volume fraction] 33.2 % Low 34.0-46.4 [facility] Comment on above: Performed By: #### A CTH #### [facility] , #### TSH3, T4F, JER, CMP #### [address] Hemoglobin (Bld) [Mass/Vol] 10.7 g/dL Low 11.8-15.4 [facility] Comment on above: Performed By: #### A CTH #### [facility] , #### TSH3, T4F, JER, CMP #### [address] Lymphocytes (Bld) [#/Vol] 1.7 10*3/uL Normal 1.00-4.8 [facility] Comment on above: Performed By: #### A CTH #### [facility] , #### TSH3, T4F, JER, CMP #### [address] Lymphocytes/100 WBC (Bld) 22.5 % Normal . [facility] Comment on above: Performed By: #### A CTH #### [facility] , #### TSH3, T4F, JER, CMP #### [address] MCH (RBC) [Entitic mass] 26.8 pg Normal 24.7-34.3 [facility] Comment on above: Performed By: #### A CTH #### [facility] , #### TSH3, T4F, JER, CMP #### [address] MCV (RBC) [Entitic vol] 83.1 fL Normal 80-100 [facility] Comment on above: Performed By: #### A CTH #### [facility] , #### TSH3, T4F, JER, CMP #### [address] Mean Corpuscular HGB Conc 32.2 g/dL Normal 32.0-35.0 [facility] Comment on above: Performed By: #### A CTH #### [facility] , #### TSH3, T4F, JER, CMP #### [address] Monocytes (Bld) [#/Vol] 0.8 10*3/uL Normal 0.0-0.8 [facility] Comment on above: Performed By: #### A CTH #### [facility] , #### TSH3, T4F, JER, CMP #### [address] Monocytes/100 WBC (Bld) 10.2 % Normal . [facility] Comment on above: Performed By: #### A CTH #### [facility] , #### TSH3, T4F, JER, CMP #### [address] Neutrophils (Bld) [#/Vol] 4.5 10*3/uL Normal 1.8-7.7 [facility] Comment on above: Performed By: #### A CTH #### [facility] , #### TSH3, T4F, JER, CMP #### [address] Neutrophils/100 WBC (Bld) 60.2 % Normal . [facility] Comment on above: Performed By: #### A CTH #### [facility] , #### TSH3, T4F, JER, CMP #### [address] NRBC% 0.1 /100{WBC} Normal 0-0.5 [facility] Comment on above: Performed By: #### A CTH #### [facility] , #### TSH3, T4F, JER, CMP #### [address] Platelet mean volume (Bld) [Entitic vol] 8.9 fL Normal 6.3-10.7 [facility] Comment on above: Performed By: #### A CTH #### [facility] , #### TSH3, T4F, JER, CMP #### [address] Platelets (Bld) [#/Vol] 270 10*3/uL Normal 150-450 [facility] Comment on above: Performed By: #### A CTH #### [facility] , #### TSH3, T4F, JER, CMP #### [address] RBC (Bld) [#/Vol] 4.00 10*6/uL Normal 3.60-5.00 [facility] Comment on above: Performed By: #### A CTH #### [facility] , #### TSH3, T4F, JER, CMP #### [address] WBC (Bld) [#/Vol] 7.4 10*3/uL Normal 3.8-11.6 [facility] Comment on above: Performed By: #### A CTH #### [facility] , #### TSH3, T4F, JER, CMP #### [address] Comprehensive Metabolic Pane malcom 12-05-2023 Albumin [Mass/Vol] 3.5 g/dL Normal 3.5-5.7 [facility] Comment on above: Performed By: #### A CTH #### [facility] , #### TSH3, T4F, JER, CMP #### [address] Albumin/Globulin [Mass ratio] 1.0 {ratio} Normal [facility] Comment on above: Performed By: #### A CTH #### [facility] , #### TSH3, T4F, JER, CMP #### [address] ALP [Catalytic activity/Vol] 90 U/L Normal 34-104 [facility] Comment on above: Performed By: #### A CTH #### [facility] , #### TSH3, T4F, JER, CMP #### [place] [address] [place] ALT [Catalytic activity/Vol] 21 U/L Normal 7-52 [facility] Comment on above: Performed By: #### A CTH #### [facility] , #### TSH3, T4F, JER, CMP #### [facility] [address] [place] [address] Anion gap [Moles/Vol] 10.1 mmol/L Normal 6.0-15.0 [facility] Comment on above: Performed By: #### A CTH #### [facility] , #### TSH3, T4F, JER, CMP #### [address] AST [Catalytic activity/Vol] 22 U/L Normal 13-39 [facility] Comment on above: Performed By: #### A CTH #### [facility] , #### TSH3, T4F, JER, CMP #### [address] Bilirubin [Mass/Vol] 0.6 mg/dL Normal 0.3-1.0 [facility] Comment on above: Performed By: #### A CTH #### [facility] , #### TSH3, T4F, JER, CMP #### [facility] [address] [place] [address] Calcium [Mass/Vol] 9.6 mg/dL Normal 8.6-10.3 [facility] Comment on above: Performed By: #### A CTH #### [facility] , #### TSH3, T4F, JER, CMP #### [facility] [address] [place] [address] Chloride [Moles/Vol] 97 mmol/L Low 98-107 [facility] Comment on above: Performed By: #### A CTH #### [facility] , #### TSH3, T4F, JER, CMP #### [address] CO2 [Moles/Vol] 31.1 mmol/L High 21.0-31.0 [facility] Comment on above: Performed By: #### A CT #### [facility] , #### TSH3, T4F, JER, CMP #### [address] Creatinine [Mass/Vol] 0.75 mg/dL Normal 0.60-1.20 [facility] Comment on above: Performed By: #### A CTH #### [facility] , #### TSH3, T4F, JER, CMP #### [address] Creatinine Clr Calc Pharmacy 59.72 Normal [facility] Comment on above: Performed By: #### A CTH #### [facility] , #### TSH3, T4F, JER, CMP #### [address] GFR/1.73 sq M.predicted MDRD (S/P/Bld) [Vol rate/Area] mL/min/{1.73_m2} Normal [facility] Comment on above: Performed By: #### A CTH #### [facility] , #### TSH3, T4F, JER, CMP #### [address] Globulin (S) [Mass/Vol] 3.6 g/dL Normal [facility] Comment on above: Performed By: #### A CTH #### [facility] , #### TSH3, T4F, JER, CMP #### [address] Glucose [Mass/Vol] 91 mg/dL Normal 70-100 [facility] Comment on above: Result Comment: [place] Glucose Reference Range is dependent on time and content of last meal. Glucose of more than 200 mg/dL in a nonstressed, ambulatory subject supports the diagnosis of Diabetes Mellitus. ADA recommended reference range Performed By: #### A CT #### [facility] , #### TSH3, T4F, JER, CMP #### [address] Potassium [Moles/Vol] 5.2 mmol/L High 3.5-5.1 [facility] Comment on above: Performed By: #### A CTH #### [facility] , #### TSH3, T4F, JER, CMP #### [address] Protein [Mass/Vol] 7.1 g/dL Normal 6.4-8.9 [facility] Comment on above: Performed By: #### A CT #### [facility] , #### TSH3, T4F, JER, CMP #### [address] Sodium [Moles/Vol] 133 mmol/L Low 136-145 [facility] Comment on above: Performed By: #### A CTH #### [facility] , #### TSH3, T4F, JER, CMP #### [address] Urea nitrogen [Mass/Vol] 15 mg/dL Normal 7-25 [facility] Comment on above: Performed By: #### A CTH #### [facility] , #### TSH3, T4F, JER, CMP #### [address] Cortisolon 12-05-2023 Cortisol 8.1 ug/dL Normal [facility] Comment on above: Result Comment: Refe rence range: AM 6 - 24 ug/dl PM <10 ug/dl [facility] awning hanger helper and method: AMRITA UNICEL DXI, POLYCLONAL ANTIBODY CORTISOL ASSAY. PERFORMED BY: [place] [address] PATHOLOGIST MARKET DEVELOPER STEFANO HOLT M.D. Performed By: #### A CTH #### [facility] , #### TSH3, T4F, JER, CMP #### [address] Free T4 (Free Thyroxine)on 0 12-05-2023 Free T4 [Mass/Vol] 1.23 ng/dL High 0.61-1.12 [facility] Comment on above: Performed By: #### A CTH #### [facility] , #### TSH3, T4F, JER, CMP #### [address] Thyroid Stimulating Hormoneo n 12-05-2023 TSH Qn 0.01 m[IU]/L Low 0.45-5.33 [facility] Comment on above: Performed By: #### A CTH #### [facility] , #### TSH3, T4F, JER, CMP #### [place] [address] [place] Adrenocorticotropic Hormone PLon 11-15-[address] 27.5 pg/mL Normal 7.2-63.3 [facility] Comment on above: Result Comment: ACTH reference interval for samples collected between 7 and 10 AM. Performed at: [facility] [address] [id number] Core Inserter: Juan Hendricks PhD, Phone: [phone] PERFORMED BY: [place] [address] PATHOLOGIST MARKET DEVELOPER STEFANO HOLT M.D. Performed By: #### C BC #### [address] Alanine aminotransferase [En zymatic activity/volume] in Serum or PlasmaOrdered By: Aries Chavez on 11-15-2023 ALT [Catalytic activity/Vol] 25 U/L Normal 7-52 [facility] Comment on above: Order Comment: NON F ASTING Performed By: #### C BC #### [facility] [address] [place] [address] Albumin [Mass/volume] in Ser um or Plasma by Bromocresol green (BCG) dye binding methoOrdered By: Aries Chavez on 11-15-2023 Albumin BCG dye [Mass/Vol] 3.3 g/dL 3.5-5.7 [facility] Alkaline phosphatase [Enzyma tic activity/volume] in Serum or PlasmaOrdered By: Aries Chavez on 11-15-2023 ALP [Catalytic activity/Vol] 109 U/L High 34-104 [facility] Comment on above: Order Comment: NON F ASTING Performed By: #### C BC #### [address] Aspartate aminotransferase [ Enzymatic activity/volume] in Serum or PlasmaOrdered By: Aries Chavez on 11-15-2023 AST [Catalytic activity/Vol] 24 U/L Normal 13-39 [facility] Comment on above: Order Comment: NON F ASTING Performed By: #### C BC #### [address] Automated basophil %Ordered By: Aries Chavez on 11-15-2023 Basophils/100 WBC (Bld) 2.9 % Normal . [facility] Comment on above: Performed By: #### A CT #### [facility] , #### TSH3, T4F, JER, CMP #### [facility] [address] [place] [address] Automated basophil countOrde red By: Aries Chavez on 11-15-2023 Basophils (Bld) [#/Vol] 0.2 10*3/uL Normal 0.0-0.2 [facility] Comment on above: Result Comment: PERF ORMED BY: [place] [address] PATHOLOGIST MARKET DEVELOPER STEFANO HOLT M.D. Performed By: #### A CTH #### [facility] , #### TSH3, T4F, JER, CMP #### [facility] [address] [place] [address] Automated blood monocyte cou ntOrdered By: Aries Chavez on 11-15-2023 Monocytes (Bld) [#/Vol] 0.8 10*3/uL Normal 0.0-0.8 [facility] Comment on above: Performed By: #### A [facility] #### [facility] , #### TSH3, T4F, JER, CMP #### [address] Automated eosinophil %Ordere d By: Aries Chavez on 11-15-2023 Eosinophils/100 WBC (Bld) 5.2 % Normal . [facility] Comment on above: Performed By: #### A [facility] #### [facility] , #### TSH3, T4F, JER, CMP #### [address] Automated eosinophil countOr dered By: Aries Chavez on 11-15-2023 Eosinophils (Bld) [#/Vol] 0.4 10*3/uL Normal 0.0-0.45 [facility] Comment on above: Performed By: #### A [facility] #### [facility] , #### TSH3, T4F, JER, CMP #### [facility] [address] [place] [address] Automated monocyte %Ordered By: Aries Chavez on 11-15-2023 Monocytes/100 WBC (Bld) 11.6 % Normal . [facility] Comment on above: Performed By: #### A [facility] #### [facility] , #### TSH3, T4F, JER, CMP #### [facility] [address] [place] [address] Automated neutrophil %Ordere d By: Aries Chavez on 11-15-2023 Neutrophils/100 WBC (Bld) 54.9 % Normal . [facility] Comment on above: Performed By: #### A CTH #### [facility] , #### TSH3, T4F, JER, CMP #### [facility] [address] Bilirubin.total [Mass/volume ] in Serum or PlasmaOrdered By: Aries Chavez on 11-15-2023 Bilirubin [Mass/Vol] 0.4 mg/dL Normal 0.3-1.0 [facility] Comment on above: Order Comment: NON F ASTING Performed By: #### C BC #### [facility] [address] CBC W Auto Differential pane l (Bld)on 11-15-2023 Basophils (Bld) [#/Vol] 0.2 10*3/uL 0.0 - 0.2 10*3/uL [facility] Basophils/100 WBC Manual cnt (Syn fld) 2.9 % . [facility] Eosinophils (Bld) [#/Vol] 0.4 10*3/uL 0.0 - 0.45 10*3/uL [facility] Eosinophils/100 WBC Manual cnt (Syn fld) 5.2 % . [facility] Erythrocyte distribution width (RBC) [Ratio] 16.8 % High 11.9 - 15.3 % [facility] Hematocrit (Bld) [Volume fraction] 30.3 % Low 34.0 - 46.4 % [facility] Hemoglobin (Bld) [Mass/Vol] 9.7 g/dL Low 11.8 - 15.4 g/dL [facility] Interpretation and review of laboratory results Abnormal [facility] Lymphocytes (Bld) [#/Vol] 1.7 10*3/uL 1.00 - 4.8 10*3/uL [facility] Lymphocytes/100 WBC Manual cnt (Syn fld) 25.4 % . [facility] MCH (RBC) [Entitic mass] 26.4 pg 24.7 - 34.3 pg [facility] MCHC (RBC) [Mass/Vol] 32.0 g/dL 32.0 - 35.0 g/dL [facility] MCV (RBC) [Entitic vol] 82.7 fL 80 - 100 fL [facility] Monocytes (Bld) [#/Vol] 0.8 10*3/uL 0.0 - 0.8 10*3/uL [facility] Monocytes+Macrophages/ 100 WBC Manual cnt (Syn fld) 11.6 % . [facility] Neutrophils (Bld) [#/Vol] 3.8 10*3/uL 1.8 - 7.7 10*3/uL [facility] Neutrophils/100 WBC Manual cnt (Syn fld) 54.9 % . [facility] NRBC 0.0 /100{WBC} 0 - 0.5 /100{WBC} [facility] Platelet mean volume (Bld) [Entitic vol] 7.5 fL 6.3 - 10.7 fL [facility] Platelets (Bld) [#/Vol] 509 10*3/uL High 150 - 450 10*3/uL [facility] RBC LM.HPF (Urine sed) [#/Area] 3.67 /[HPF] 3.60 - 5.00 [facility] WBC (Bld) [#/Vol] 6.9 10*3/uL 3.8 - 11.6 10*3/uL [facility] WBC LM.HPF (Urine sed) [#/Area] 6.9 10*3/uL 3.8 - 11.6 10*3/uL [facility] Calcium [Mass/volume] in Ser um or PlasmaOrdered By: Aries Chavez on 11-15-2023 Calcium [Mass/Vol] 9.8 mg/dL Normal 8.6-10.3 [facility] Comment on above: Order Comment: NON F ASTING Performed By: #### C BC #### [facility] [address] [place] [address] Carbon dioxide, total [Moles /volume] in Serum or PlasmaOrdered By: Aries Chavez on 11-15-2023 CO2 [Moles/Vol] 28.7 mmol/L Normal 21.0-31.0 [facility] Comment on above: Order Comment: NON F ASTING Performed By: #### C BC #### [facility] [address] [place] [address] [place] Chloride [Moles/volume] in S leena or PlasmaOrdered By: Aries Chavez on 11-15-2023 Chloride [Moles/Vol] 101 mmol/L Normal 98-107 [facility] Comment on above: Order Comment: NON F ASTING Performed By: #### C BC #### [address] Complete Blood Count Auto Di ffon 11-15-2023 Mean Corpuscular HGB Conc 32.0 g/dL Normal 32.0-35.0 [facility] Comment on above: Performed By: #### A CTH #### [facility] , #### TSH3, T4F, JER, CMP #### [address] NRBC% 0.0 /100{WBC} Normal 0-0.5 [facility] Comment on above: Performed By: #### A CTH #### [facility] , #### TSH3, T4F, JER, CMP #### [address] Comprehensive Metabolic Pane malcom 11-15-2023 Albumin [Mass/Vol] 3.3 g/dL Low 3.5-5.7 [facility] Comment on above: Order Comment: NON F ASTING Performed By: #### C BC #### [address] Creatinine Clr Calc Pharmacy 65.11 Normal [facility] Comment on above: Order Comment: NON F ASTING Performed By: #### C BC #### [address] GFR/1.73 sq M.predicted MDRD (S/P/Bld) [Vol rate/Area] mL/min/{1.73_m2} Normal [facility] Comment on above: Order Comment: NON F ASTING Performed By: #### C BC #### [address] Cortisolon 11-15-2023 Cortisol 14.2 ug/dL Normal [facility] Comment on above: Order Comment: NON F ASTING Result Comment: Refe rence range: AM 6 - 24 ug/dl PM <10 ug/dl [facility] awning hanger helper and method: AMRITA UNICEL DXI, POLYCLONAL ANTIBODY CORTISOL ASSAY. PERFORMED BY: [place] [address] PATHOLOGIST MARKET DEVELOPER STEFANO HOLT M.D. Performed By: #### C BC #### [address] Creatinine [Mass/volume] in Serum or PlasmaOrdered By: Aries Chavez on 11-15-2023 Creatinine [Mass/Vol] 0.71 mg/dL Normal 0.60-1.20 [facility] Comment on above: Order Comment: NON F ASTING Performed By: #### C BC #### [address] Erythrocyte distribution wid th [Ratio] by Automated countOrdered By: Aries Chavez on 11-15-2023 Erythrocyte distribution width (RBC) [Ratio] 16.8 % High 11.9-15.3 [facility] Comment on above: Performed By: #### A CTH #### [facility] , #### TSH3, T4F, JER, CMP #### [address] Erythrocytes [#/volume] in B lood by Automated countOrdered By: Aries Chavez on 11-15-2023 RBC (Bld) [#/Vol] 3.67 10*6/uL Normal 3.60-5.00 [facility] Comment on above: Performed By: #### A CTH #### [facility] , #### TSH3, T4F, JER, CMP #### [place] [address] [place] Glucose [Mass/volume] in Ser um or PlasmaOrdered By: Aries Chavez on 11-15-2023 Glucose [Mass/Vol] 100 mg/dL Normal 70-100 [facility] Comment on above: ADA recommended refe rence rangeRandom Glucose Reference Range is dependent on time and content of last meal. Glucose of more than 200 mg/dL in a nonstressed, ambulatory subject supports the diagnosis of Diabetes Mellitus. Order Comment: NON F ASTING Result Comment: [place] om Glucose Reference Range is dependent on time and content of last meal. Glucose of more than 200 mg/dL in a nonstressed, ambulatory subject supports the diagnosis of Diabetes Mellitus. ADA recommended reference range Performed By: #### C BC #### [address] Hematocrit [Volume Fraction] of Blood by Automated countOrdered By: Aries Chavez on 11-15-2023 Hematocrit (Bld) [Volume fraction] 30.3 % Low 34.0-46.4 [facility] Comment on above: Performed By: #### A CT #### [facility] , #### TSH3, T4F, JER, CMP #### [place] [address] [place] Hemoglobin [Mass/volume] in BloodOrdered By: Aries Chavez on 11-15-2023 Hemoglobin (Bld) [Mass/Vol] 9.7 g/dL Low 11.8-15.4 [facility] Comment on above: Performed By: #### A CT #### [facility] , #### TSH3, T4F, JER, CMP #### [address] Leukocytes [#/volume] correc gabriel for nucleated erythrocytes in Blood by Automated counOrdered By: Aries Chavez on 11-15-2023 WBC corrected for nucl RBC Auto (Bld) [#/Vol] 6.9 10*3/uL 3.8-11.6 [facility] Leukocytes [#/volume] in Blo od by Automated countOrdered By: Aries Chavez on 11-15-2023 WBC (Bld) [#/Vol] 6.9 10*3/uL Normal 3.8-11.6 [facility] Comment on above: Performed By: #### A CT #### [facility] , #### TSH3, T4F, JER, CMP #### [facility] [address] [place] [address] Lymphocytes [#/volume] in Bl ood by Automated countOrdered By: Aries Chavez on 11-15-2023 Lymphocytes (Bld) [#/Vol] 1.7 10*3/uL Normal 1.00-4.8 [facility] Comment on above: Performed By: #### A CT #### [facility] , #### TSH3, T4F, JER, CMP #### [facility] [address] [place] [address] Lymphocytes/100 leukocytes i n Blood by Automated countOrdered By: Aries Chavez on 11-15-2023 Lymphocytes/100 WBC (Bld) 25.4 % Normal . [facility] Comment on above: Performed By: #### A CT #### [facility] , #### TSH3, T4F, JER, CMP #### [address] MCH [Entitic mass] by Automa gabriel countOrdered By: Aries Chavez on 11-15-2023 MCH (RBC) [Entitic mass] 26.4 pg Normal 24.7-34.3 [facility] Comment on above: Performed By: #### A CT #### [facility] , #### TSH3, T4F, JER, CMP #### [facility] [address] [place] [address] MCHC Auto (RBC) [Mass/Vol]Or dered By: Aries Chavez on 11-15-2023 MCHC (RBC) [Mass/Vol] 32.0 g/dL 32.0-35.0 [facility] MCV [Entitic volume] by Auto mated countOrdered By: Aries Chavez on 11-15-2023 MCV (RBC) [Entitic vol] 82.7 fL Normal 80-100 [facility] Comment on above: Performed By: #### A CT #### [facility] , #### TSH3, T4F, JER, CMP #### [facility] [address] [place] [address] [place] Neutrophils [#/volume] in Bl ood by Automated countOrdered By: Aries Chavez on 11-15-2023 Neutrophils (Bld) [#/Vol] 3.8 10*3/uL Normal 1.8-7.7 [facility] Comment on above: Performed By: #### A CT #### [facility] , #### TSH3, T4F, JER, CMP #### [facility] [address] [place] [address] No Panel InformationOrdered By: Aries Chavez on 11-15-2023 Adrenocorticotropic Hormone 27.5 pg/mL 7.2-63.3 [facility] Comment on above: ACTH reference inter wendy for samples collected between 7 and10 AM.Performed at: [facility] Director: Juan Hendricks PhD, Phone: [phone] Estimated GFR (CKD-EPI) > 60.0 mL/Min [facility] Creatinine Clearance (Chem 65.11 [facility] Nucleated erythrocytes [Pres ence] in Blood by Automated countOrdered By: Aries Chavez on 11-15-2023 Nucleated RBC Auto Ql (Bld) 0.0 /100{WBC} 0-0.5 [facility] Platelet mean volume [Entiti c volume] in Blood by Automated countOrdered By: Aries Chavez on 11-15-2023 Platelet mean volume (Bld) [Entitic vol] 7.5 fL Normal 6.3-10.7 [facility] Comment on above: Performed By: #### A CT #### [facility] , #### TSH3, T4F, JER, CMP #### [facility] [address] [place] [address] Platelets [#/volume] in Bloo d by Automated countOrdered By: Aries Chavez on 11-15-2023 Platelets (Bld) [#/Vol] 509 10*3/uL High 150-450 [facility] Comment on above: Performed By: #### A CTH #### [facility] , #### TSH3, T4F, JER, CMP #### [facility] [address] Potassium [Moles/volume] in Serum or PlasmaOrdered By: Aries Chavez on 11-15-2023 Potassium [Moles/Vol] 4.8 mmol/L Normal 3.5-5.1 [facility] Comment on above: Order Comment: NON F ASTING Performed By: #### C BC #### [address] Protein [Mass/volume] in Ser um or PlasmaOrdered By: Aries Chavez on 11-15-2023 Protein [Mass/Vol] 7.9 g/dL Normal 6.4-8.9 [facility] Comment on above: Order Comment: NON F ASTING Performed By: #### C BC #### [address] Random cortisol measurementO rdered By: Aries Chavez on 11-15-2023 Cortisol [Mass/Vol] 14.2 ug/dL [facility] Comment on above: [facility] awning hanger helper and method:AMRITA UNICEL DXI, POLYCLONAL ANTIBODY CORTISOL ASSAY.Reference range: AM 6 - 24 ug/dl PM <10 ug/dl Serum globulin measurement b y calculation (mass/volume)Ordered By: Aries Chavez on 11-15-2023 Globulin (S) [Mass/Vol] 4.6 g/dL [facility] Comment on above: Order Comment: NON F ASTING Performed By: #### C BC #### [address] Serum or plasma albumin/glob ulin mass ratioOrdered By: Aries Chavez on 11-15-2023 Albumin/Globulin [Mass ratio] 0.7 {ratio} [facility] Comment on above: Order Comment: NON F ASTING Performed By: #### C BC #### [facility] [address] [place] [address] Serum or plasma anion gap de terminationOrdered By: Aries Chavez on 11-15-2023 Anion gap [Moles/Vol] 10.1 mmol/L Normal 6.0-15.0 [facility] Comment on above: Order Comment: NON F ASTING Performed By: #### C BC #### [address] Sodium [Moles/volume] in Ser um or PlasmaOrdered By: Aries Chavez on 11-15-2023 Sodium [Moles/Vol] 135 mmol/L Low 136-145 [facility] Comment on above: Order Comment: NON F ASTING Performed By: #### C BC #### [address] Thyrotropin [Units/volume] i n Serum or PlasmaOrdered By: Aries Chavez on 11-15-2023 TSH Qn 0.01 m[IU]/L Low 0.45-5.33 [facility] Comment on above: Order Comment: NON F ASTING Performed By: #### C BC #### [address] Thyroxine (T4) free [Mass/vo lume] in Serum or PlasmaOrdered By: Aries Chavez on 11-15-2023 Free T4 [Mass/Vol] 2.10 ng/dL High 0.61-1.12 [facility] Comment on above: Order Comment: NON F ASTING Performed By: #### C BC #### [facility] [address] [place] [address] [place] Urea nitrogen [Mass/volume] in Serum or PlasmaOrdered By: Aries Chavez on 11-15-2023 Urea nitrogen [Mass/Vol] 16 mg/dL Normal 7-25 [facility] Comment on above: Order Comment: NON F ASTING Performed By: #### C BC #### [facility] [address] [place] [address] US venous duplex LE BIon US venous duplex LE BI [facility] [place] [address] [place] [address] Ultrasound Report Signed Patient: Perla Ibarra MR#: [id number] : 1955 Acct:[id number] Age/Sex: 68 / F ADM Date: 10/31/23 Loc: Room: Type: [facility] Attending Dr: Aries Chavez II, DO Ordering Provider: Aries Chavez II, DO Date of Service: 10/31/23 US/US venous duplex LE BI: C64.1 Copies to: Aries Chavez II, DO BILATERAL LOWER EXTREMITY VENOUS DUPLEX INDICATION: Bilateral lower extremity edema. PROCEDURE: Color-flow duplex scanning is used to interrogate the deep venous system of the right and left lower extremities. The common femoral vein, femoral vein and popliteal vein show good compressibility with normal proximal and distal augmentation. The calf veins are compressible. US/US venous duplex LE BI IMPRESSION: NO EVIDENCE FOR DEEP VEIN THROMBOSIS OR PROXIMAL SUPERFICIAL THROMBOPHLEBITIS IN THE RIGHT OR LEFT LOWER EXTREMITY. Impression dictated by: Tripp Andrews MD11/01/2023 2:50 PM Dictation Location: [place] [address] Tech: Soha Gomez Transcribed By: FAUSTO 11/01/23 1450 Dictated By: Tripp Andrews MD 11/01/23 1450 Signed By: 11/01/23 1450 Normal [facility] Cortisolon 10-26-2023 Cortisol 15.2 ug/dL Normal [facility] Comment on above: Result Comment: Refe rence range: AM 6 - 24 ug/dl PM <10 ug/dl [facility] awning hanger helper and method: AMRITA UNICEL DXI, POLYCLONAL ANTIBODY CORTISOL ASSAY. PERFORMED BY: [place] [address] PATHOLOGIST MARKET DEVELOPER STEFANO HOLT M.D. Performed By: #### A CTH #### [facility] , #### TSH3, T4F, JER, CMP #### [address] Free T4 (Free Thyroxine)on 0 10-26-2023 Free T4 [Mass/Vol] 2.23 ng/dL High 0.61-1.12 [facility] Comment on above: Performed By: #### A CTH #### [facility] , #### TSH3, T4F, JER, CMP #### [address] Thyroid Stimulating Hormoneo n 10-26-2023 TSH Qn 0.20 m[IU]/L Low 0.45-5.33 [facility] Comment on above: Performed By: #### A CTH #### [facility] , #### TSH3, T4F, JER, CMP #### [address] Basic Metabolic Panelon 10-03 Anion gap [Moles/Vol] 9.5 mmol/L Normal 6.0-15.0 [facility] Comment on above: Performed By: #### A CTH #### [facility] , #### TSH3, T4F, JER, CMP #### [address] Calcium [Mass/Vol] 8.7 mg/dL Normal 8.6-10.3 [facility] Comment on above: Performed By: #### A CTH #### [facility] , #### TSH3, T4F, JER, CMP #### [address] Chloride [Moles/Vol] 103 mmol/L Normal 98-107 [facility] Comment on above: Performed By: #### A CTH #### [facility] , #### TSH3, T4F, JER, CMP #### [place] [address] [place] CO2 [Moles/Vol] 23.7 mmol/L Normal 21.0-31.0 [facility] Comment on above: Performed By: #### A CT #### [facility] , #### TSH3, T4F, JER, CMP #### [facility] [address] Creatinine [Mass/Vol] 0.78 mg/dL Normal 0.60-1.20 [facility] Comment on above: Performed By: #### A CT #### [facility] , #### TSH3, T4F, JER, CMP #### [place] [address] [place] Creatinine Clr Calc Pharmacy 65.55 Normal [facility] Comment on above: Result Comment: PERF ORMED BY: [place] [address] PATHOLOGIST MARKET DEVELOPER STEFANO HOLT M.D. Performed By: #### A CT #### [facility] , #### TSH3, T4F, JER, CMP #### [place] [address] [place] GFR/1.73 sq M.predicted MDRD (S/P/Bld) [Vol rate/Area] mL/min/{1.73_m2} Normal [facility] Comment on above: Performed By: #### A CT #### [facility] , #### TSH3, T4F, JER, CMP #### [facility] [address] Glucose [Mass/Vol] 113 mg/dL High 70-100 [facility] Comment on above: Result Comment: [place] om Glucose Reference Range is dependent on time and content of last meal. Glucose of more than 200 mg/dL in a nonstressed, ambulatory subject supports the diagnosis of Diabetes Mellitus. ADA recommended reference range Performed By: #### A CT #### [facility] , #### TSH3, T4F, JER, CMP #### [address] Potassium [Moles/Vol] 4.2 mmol/L Normal 3.5-5.1 [facility] Comment on above: Performed By: #### A CTH #### [facility] , #### TSH3, T4F, JER, CMP #### [address] Sodium [Moles/Vol] 132 mmol/L Low 136-145 [facility] Comment on above: Performed By: #### A CTH #### [facility] , #### TSH3, T4F, JER, CMP #### [address] Urea nitrogen [Mass/Vol] 22 mg/dL Normal 7-25 [facility] Comment on above: Performed By: #### A CTH #### [facility] , #### TSH3, T4F, JER, CMP #### [address] Clostridium Difficileon 10-03 Clostridium Difficile Negative Normal Negative [facility] Comment on above: Order Comment: > or = to 3 loose/watery stools in the last 24 HRS? N Is patient on promotility agents or tube feeding? Y Result Comment: Test ing performed by RT-PCR PERFORMED BY: [place] [address] PATHOLOGIST MARKET DEVELOPER STEFANO HOLT M.D. Performed By: #### C BC #### [address] Complete Blood Count Auto Di ffon 10-24-2023 Basophils (Bld) [#/Vol] 0.1 10*3/uL Normal 0.0-0.2 [facility] Comment on above: Result Comment: PERF ORMED BY: [place] [address] PATHOLOGIST MARKET DEVELOPER STEFANO HOLT M.D. Performed By: #### A CTH #### [facility] , #### TSH3, T4F, JER, CMP #### [address] Basophils/100 WBC (Bld) 1.0 % Normal . [facility] Comment on above: Performed By: #### A CTH #### [facility] , #### TSH3, T4F, JER, CMP #### [address] Eosinophils (Bld) [#/Vol] 0.2 10*3/uL Normal 0.0-0.45 [facility] Comment on above: Performed By: #### A CTH #### [facility] , #### TSH3, T4F, JER, CMP #### [address] Eosinophils/100 WBC (Bld) 1.7 % Normal . [facility] Comment on above: Performed By: #### A CT #### [facility] , #### TSH3, T4F, JER, CMP #### [address] Erythrocyte distribution width (RBC) [Ratio] 18.1 % High 11.9-15.3 [facility] Comment on above: Performed By: #### A CTH #### [facility] , #### TSH3, T4F, JER, CMP #### [address] Hematocrit (Bld) [Volume fraction] 27.5 % Low 34.0-46.4 [facility] Comment on above: Performed By: #### A CTH #### [facility] , #### TSH3, T4F, JER, CMP #### [address] Hemoglobin (Bld) [Mass/Vol] 9.0 g/dL Low 11.8-15.4 [facility] Comment on above: Performed By: #### A CTH #### [facility] , #### TSH3, T4F, JER, CMP #### [address] Lymphocytes (Bld) [#/Vol] 1.1 10*3/uL Normal 1.00-4.8 [facility] Comment on above: Performed By: #### A CTH #### [facility] , #### TSH3, T4F, JER, CMP #### [address] Lymphocytes/100 WBC (Bld) 12.3 % Normal . [facility] Comment on above: Performed By: #### A CTH #### [facility] , #### TSH3, T4F, JER, CMP #### [address] MCH (RBC) [Entitic mass] 26.6 pg Normal 24.7-34.3 [facility] Comment on above: Performed By: #### A CTH #### [facility] , #### TSH3, T4F, JER, CMP #### [address] MCV (RBC) [Entitic vol] 81.4 fL Normal 80-100 [facility] Comment on above: Performed By: #### A CTH #### [facility] , #### TSH3, T4F, JER, CMP #### [address] Mean Corpuscular HGB Conc 32.7 g/dL Normal 32.0-35.0 [facility] Comment on above: Performed By: #### A CTH #### [facility] , #### TSH3, T4F, JER, CMP #### [address] [place] [address] [place] Monocytes (Bld) [#/Vol] 1.3 10*3/uL High 0.0-0.8 [facility] Comment on above: Performed By: #### A CTH #### [facility] , #### TSH3, T4F, JER, CMP #### [place] [address] [place] Monocytes/100 WBC (Bld) 14.6 % Normal . [facility] Comment on above: Performed By: #### A CTH #### [facility] , #### TSH3, T4F, JER, CMP #### [address] Neutrophils (Bld) [#/Vol] 6.4 10*3/uL Normal 1.8-7.7 [facility] Comment on above: Performed By: #### A CTH #### [facility] , #### TSH3, T4F, JER, CMP #### [address] Neutrophils/100 WBC (Bld) 70.4 % Normal . [facility] Comment on above: Performed By: #### A CTH #### [facility] , #### TSH3, T4F, JER, CMP #### [address] NRBC% 0.2 /100{WBC} Normal 0-0.5 [facility] Comment on above: Performed By: #### A CTH #### [facility] , #### TSH3, T4F, JER, CMP #### [address] Platelet mean volume (Bld) [Entitic vol] 7.4 fL Normal 6.3-10.7 [facility] Comment on above: Performed By: #### A CTH #### [facility] , #### TSH3, T4F, JER, CMP #### [address] Platelets (Bld) [#/Vol] 273 10*3/uL Normal 150-450 [facility] Comment on above: Performed By: #### A CTH #### [facility] , #### TSH3, T4F, JER, CMP #### [address] RBC (Bld) [#/Vol] 3.38 10*6/uL Low 3.60-5.00 [facility] Comment on above: Performed By: #### A CTH #### [facility] , #### TSH3, T4F, JER, CMP #### [address] WBC (Bld) [#/Vol] 9.2 10*3/uL Normal 3.8-11.6 [facility] Comment on above: Performed By: #### A CTH #### [facility] , #### TSH3, T4F, JER, CMP #### [address] Gastrointestinal Profile, PC Pancho 10-24-2023 Adenovirus F 40/41 Not detected Normal Not Detected [facility] Comment on above: Order Comment: SOURC E OF SPECIMEN: stool Performed By: #### C BC #### [address] Astrovirus Not detected Normal Not Detected [facility] Comment on above: Order Comment: SOURC E OF SPECIMEN: stool Performed By: #### C BC #### [address] C Difficile Toxin A/B Not detected Normal Not Detected [facility] Comment on above: Order Comment: SOURC E OF SPECIMEN: stool Performed By: #### C BC #### [address] Campylobacter Not detected Normal Not Detected [facility] Comment on above: Order Comment: SOURC E OF SPECIMEN: stool Performed By: #### C BC #### [facility] [address] [place] [address] [place] Cryptosporidium Not detected Normal Not Detected [facility] Comment on above: Order Comment: SOURC E OF SPECIMEN: stool Performed By: #### C BC #### [facility] [address] [place] [address] [place] Cyclospora cayetanensis Not detected Normal Not Detected [facility] Comment on above: Order Comment: SOURC E OF SPECIMEN: stool Performed By: #### C BC #### [facility] [address] [place] [address] [place] E coli O157 Not applicable Normal Not Detected [facility] Comment on above: Order Comment: SOURC E OF SPECIMEN: stool Performed By: #### C BC #### [facility] [address] [place] [address] [place] Entamoeba histolytica Not detected Normal Not Detected [facility] Comment on above: Order Comment: SOURC E OF SPECIMEN: stool Performed By: #### C BC #### [facility] [address] [place] [address] [place] Enteroaggregative E coli Not detected Normal Not Detected [facility] Comment on above: Order Comment: SOURC E OF SPECIMEN: stool Performed By: #### C BC #### [facility] [address] [place] [address] [place] Enteropathogenic E coli Not detected Normal Not Detected [facility] Comment on above: Order Comment: SOURC E OF SPECIMEN: stool Performed By: #### C BC #### [facility] [address] [place] [address] [place] Enterotoxigenic E coli Not detected Normal Not Detected [facility] Comment on above: Order Comment: SOURC E OF SPECIMEN: stool Performed By: #### C BC #### [facility] [address] [place] [address] [place] Giardia lamblia Not detected Normal Not Detected [facility] Comment on above: Order Comment: SOURC E OF SPECIMEN: stool Performed By: #### C BC #### [place] [address] [place] Norovirus GI/GII Detected Critically abnormal Not Detected [facility] Comment on above: Order Comment: SOURC E OF SPECIMEN: stool Performed By: #### C BC #### [address] Plesiomonas shigelloides Not detected Normal Not Detected [facility] Comment on above: Order Comment: SOURC E OF SPECIMEN: stool Performed By: #### C BC #### [address] Rotavirus A Not detected Normal Not Detected [facility] Comment on above: Order Comment: SOURC E OF SPECIMEN: stool Performed By: #### C BC #### [address] Salmonella Not detected Normal Not Detected [facility] Comment on above: Order Comment: SOURC E OF SPECIMEN: stool Performed By: #### C BC #### [address] Sapovirus Not detected Normal Not Detected [facility] Comment on above: Order Comment: SOURC E OF SPECIMEN: stool Result Comment: Perf ormed at: [facility] [address] [id number] Core Inserter: Fatoumata Daley MD, Phone: [phone] PERFORMED BY: [place] [address] PATHOLOGIST MARKET DEVELOPER STEFANO HOLT M.D. Performed By: #### C BC #### [place] [address] [place] Cmivs-nucuw-cwaygnicg E coli Not detected Normal Not Detected [facility] Comment on above: Order Comment: SOURC E OF SPECIMEN: stool Performed By: #### C BC #### [place] [address] [place] Shigella/Enteroinvasiv e E coli Not detected Normal Not Detected [facility] Comment on above: Order Comment: SOURC E OF SPECIMEN: stool Performed By: #### C BC #### [address] Vibrio Not detected Normal Not Detected [facility] Comment on above: Order Comment: SOURC E OF SPECIMEN: stool Performed By: #### C BC #### [address] Vibrio cholerae Not detected Normal Not Detected [facility] Comment on above: Order Comment: SOURC E OF SPECIMEN: stool Performed By: #### C BC #### [address] Yersinia enterocolitica Not detected Normal Not Detected [facility] Comment on above: Order Comment: SOURC E OF SPECIMEN: stool Performed By: #### C BC #### [address] Hepatic Panelon 10-24-2023 Albumin [Mass/Vol] 2.8 g/dL Low 3.5-5.7 [facility] Comment on above: Performed By: #### A CTH #### [facility] , #### TSH3, T4F, EJR, CMP #### [address] Albumin/Globulin [Mass ratio] 0.8 {ratio} Normal [facility] Comment on above: Performed By: #### A CTH #### [facility] , #### TSH3, T4F, JER, CMP #### [address] ALP [Catalytic activity/Vol] 85 U/L Normal 34-104 [facility] Comment on above: Performed By: #### A CTH #### [facility] , #### TSH3, T4F, JER, CMP #### [address] ALT [Catalytic activity/Vol] 139 U/L High 7-52 [facility] Comment on above: Performed By: #### A CTH #### [facility] , #### TSH3, T4F, JER, CMP #### [address] AST [Catalytic activity/Vol] 37 U/L Normal 13-39 [facility] Comment on above: Performed By: #### A CTH #### [facility] , #### TSH3, T4F, JER, CMP #### [facility] [address] [place] [address] Bilirubin [Mass/Vol] 0.6 mg/dL Normal 0.3-1.0 [facility] Comment on above: Performed By: #### A CTH #### [facility] , #### TSH3, T4F, JER, CMP #### [address] Bilirubin,Indirect 0.4 mg/dL Normal [facility] Comment on above: Performed By: #### A CTH #### [facility] , #### TSH3, T4F, JER, CMP #### [address] Bilirubin.indirect [Mass/Vol] 0.20 mg/dL High 0.03-0.18 [facility] Comment on above: Performed By: #### A CTH #### [facility] , #### TSH3, T4F, JER, CMP #### [facility] [address] [place] [address] Globulin (S) [Mass/Vol] 3.7 g/dL Normal [facility] Comment on above: Performed By: #### A CTH #### [facility] , #### TSH3, T4F, JER, CMP #### [facility] [address] [place] [address] Protein [Mass/Vol] 6.5 g/dL Normal 6.4-8.9 [facility] Comment on above: Performed By: #### A CTH #### [facility] , #### TSH3, T4F, JER, CMP #### [address] Stool Cultureon 10-24-2023 Stool culture Negative for Shiga T oxin 1 Negative for Shiga Toxin 2 -- A negative Shiga Toxin result may occur if the antigen level in the specimen is below the detection limit of the assay. Stool culture results No Salmonella, Shigella, Campy or E. coli [id number] Isolated PERFORMED BY: [place] [address] PATHOLOGIST MARKET DEVELOPER STEFANO HOLT M.D. Normal [facility] Comment on above: Performed By: #### C BC #### [address] Basic Metabolic Panelon 10-03 Anion gap [Moles/Vol] 10.6 mmol/L Normal 6.0-15.0 [facility] Comment on above: Performed By: #### A CTH #### [facility] , #### TSH3, T4F, JER, CMP #### [address] Calcium [Mass/Vol] 8.8 mg/dL Normal 8.6-10.3 [facility] Comment on above: Performed By: #### A CTH #### [facility] , #### TSH3, T4F, JER, CMP #### [address] Chloride [Moles/Vol] 102 mmol/L Normal 98-107 [facility] Comment on above: Performed By: #### A CTH #### [facility] , #### TSH3, T4F, JER, CMP #### [place] [address] [place] CO2 [Moles/Vol] 22.2 mmol/L Normal 21.0-31.0 [facility] Comment on above: Performed By: #### A CT #### [facility] , #### TSH3, T4F, JER, CMP #### [facility] [address] Creatinine [Mass/Vol] 0.92 mg/dL Normal 0.60-1.20 [facility] Comment on above: Performed By: #### A CT #### [facility] , #### TSH3, T4F, JER, CMP #### [place] [address] [place] Creatinine Clr Calc Pharmacy 57.00 Normal [facility] Comment on above: Result Comment: PERF ORMED BY: [place] [address] PATHOLOGIST MARKET DEVELOPER STEFANO HOLT M.D. Performed By: #### A CT #### [facility] , #### TSH3, T4F, JER, CMP #### [place] [address] [place] GFR/1.73 sq M.predicted MDRD (S/P/Bld) [Vol rate/Area] mL/min/{1.73_m2} Normal [facility] Comment on above: Performed By: #### A CT #### [facility] , #### TSH3, T4F, JER, CMP #### [facility] [address] Glucose [Mass/Vol] 96 mg/dL Normal 70-100 [facility] Comment on above: Result Comment: [place] Glucose Reference Range is dependent on time and content of last meal. Glucose of more than 200 mg/dL in a nonstressed, ambulatory subject supports the diagnosis of Diabetes Mellitus. ADA recommended reference range Performed By: #### A CT #### [facility] , #### TSH3, T4F, JER, CMP #### [address] Potassium [Moles/Vol] 4.8 mmol/L Normal 3.5-5.1 [facility] Comment on above: Performed By: #### A CTH #### [facility] , #### TSH3, T4F, JER, CMP #### [address] Sodium [Moles/Vol] 130 mmol/L Low 136-145 [facility] Comment on above: Performed By: #### A CTH #### [facility] , #### TSH3, T4F, JER, CMP #### [address] Urea nitrogen [Mass/Vol] 28 mg/dL High 7-25 [facility] Comment on above: Performed By: #### A CTH #### [facility] , #### TSH3, T4F, JER, CMP #### [address] Complete Blood Count Auto Di ffon 10-23-2023 Basophils (Bld) [#/Vol] 0.1 10*3/uL Normal 0.0-0.2 [facility] Comment on above: Result Comment: PERF ORMED BY: [place] [address] PATHOLOGIST MARKET DEVELOPER STEFANO HOLT M.D. Performed By: #### A CTH #### [facility] , #### TSH3, T4F, JER, CMP #### [address] Basophils/100 WBC (Bld) 1.2 % Normal . [facility] Comment on above: Performed By: #### A CTH #### [facility] , #### TSH3, T4F, JER, CMP #### [place] [id number] [place] Eosinophils (Bld) [#/Vol] 0.1 10*3/uL Normal 0.0-0.45 [facility] Comment on above: Performed By: #### A CTH #### [facility] , #### TSH3, T4F, JER, CMP #### [address] Eosinophils/100 WBC (Bld) 0.6 % Normal . [facility] Comment on above: Performed By: #### A CTH #### [facility] , #### TSH3, T4F, JER, CMP #### [address] Erythrocyte distribution width (RBC) [Ratio] 17.7 % High 11.9-15.3 [facility] Comment on above: Performed By: #### A CT #### [facility] , #### TSH3, T4F, JER, CMP #### [address] Hematocrit (Bld) [Volume fraction] 29.2 % Low 34.0-46.4 [facility] Comment on above: Performed By: #### A CTH #### [facility] , #### TSH3, T4F, JER, CMP #### [address] Hemoglobin (Bld) [Mass/Vol] 9.4 g/dL Low 11.8-15.4 [facility] Comment on above: Performed By: #### A CTH #### [facility] , #### TSH3, T4F, JER, CMP #### [address] Lymphocytes (Bld) [#/Vol] 1.2 10*3/uL Normal 1.00-4.8 [facility] Comment on above: Performed By: #### A CTH #### [facility] , #### TSH3, T4F, JER, CMP #### [address] Lymphocytes/100 WBC (Bld) 11.1 % Normal . [facility] Comment on above: Performed By: #### A CTH #### [facility] , #### TSH3, T4F, JER, CMP #### [address] MCH (RBC) [Entitic mass] 26.4 pg Normal 24.7-34.3 [facility] Comment on above: Performed By: #### A CTH #### [facility] , #### TSH3, T4F, JER, CMP #### [address] MCV (RBC) [Entitic vol] 81.6 fL Normal 80-100 [facility] Comment on above: Performed By: #### A CTH #### [facility] , #### TSH3, T4F, JER, CMP #### [address] Mean Corpuscular HGB Conc 32.4 g/dL Normal 32.0-35.0 [facility] Comment on above: Performed By: #### A CTH #### [facility] , #### TSH3, T4F, JER, CMP #### [address] Monocytes (Bld) [#/Vol] 1.3 10*3/uL High 0.0-0.8 [facility] Comment on above: Performed By: #### A CTH #### [facility] , #### TSH3, T4F, JER, CMP #### [address] Monocytes/100 WBC (Bld) 12.4 % Normal . [facility] Comment on above: Performed By: #### A CT #### [facility] , #### TSH3, T4F, JER, CMP #### [address] Neutrophils (Bld) [#/Vol] 7.8 10*3/uL High 1.8-7.7 [facility] Comment on above: Performed By: #### A CTH #### [facility] , #### TSH3, T4F, JER, CMP #### [address] Neutrophils/100 WBC (Bld) 74.7 % Normal . [facility] Comment on above: Performed By: #### A CTH #### [facility] , #### TSH3, T4F, JER, CMP #### [address] NRBC% 0.4 /100{WBC} Normal 0-0.5 [facility] Comment on above: Performed By: #### A CT #### [facility] , #### TSH3, T4F, JER, CMP #### [address] Platelet mean volume (Bld) [Entitic vol] 7.5 fL Normal 6.3-10.7 [facility] Comment on above: Performed By: #### A CT #### [facility] , #### TSH3, T4F, JER, CMP #### [address] Platelets (Bld) [#/Vol] 293 10*3/uL Normal 150-450 [facility] Comment on above: Performed By: #### A CTH #### [facility] , #### TSH3, T4F, JER, CMP #### [place] [address] [place] RBC (Bld) [#/Vol] 3.57 10*6/uL Low 3.60-5.00 [facility] Comment on above: Performed By: #### A CTH #### [facility] , #### TSH3, T4F, JER, CMP #### [address] WBC (Bld) [#/Vol] 10.5 10*3/uL Normal 3.8-11.6 [facility] Comment on above: Performed By: #### A CTH #### [facility] , #### TSH3, T4F, JER, CMP #### [address] Hepatic Panelon 10-23-2023 Albumin [Mass/Vol] 2.9 g/dL Low 3.5-5.7 [facility] Comment on above: Performed By: #### A CTH #### [facility] , #### TSH3, T4F, JER, CMP #### [address] Albumin/Globulin [Mass ratio] 0.7 {ratio} Normal [facility] Comment on above: Performed By: #### A CTH #### [facility] , #### TSH3, T4F, JER, CMP #### [address] ALP [Catalytic activity/Vol] 102 U/L Normal 34-104 [facility] Comment on above: Performed By: #### A CTH #### [facility] , #### TSH3, T4F, JER, CMP #### [facility] [address] [place] [address] ALT [Catalytic activity/Vol] 206 U/L High 7-52 [facility] Comment on above: Performed By: #### A CTH #### [facility] , #### TSH3, T4F, JER, CMP #### [address] AST [Catalytic activity/Vol] 95 U/L High 13-39 [facility] Comment on above: Performed By: #### A CTH #### [facility] , #### TSH3, T4F, JER, CMP #### [facility] [address] [place] [address] Bilirubin [Mass/Vol] 0.5 mg/dL Normal 0.3-1.0 [facility] Comment on above: Performed By: #### A CTH #### [facility] , #### TSH3, T4F, JER, CMP #### [address] Bilirubin,Indirect 0.3 mg/dL Normal [facility] Comment on above: Performed By: #### A CTH #### [facility] , #### TSH3, T4F, JER, CMP #### [address] Bilirubin.indirect [Mass/Vol] 0.20 mg/dL High 0.03-0.18 [facility] Comment on above: Performed By: #### A CTH #### [facility] , #### TSH3, T4F, JER, CMP #### [address] Globulin (S) [Mass/Vol] 4.0 g/dL Normal [facility] Comment on above: Performed By: #### A CTH #### [facility] , #### TSH3, T4F, JER, CMP #### [facility] [address] [place] [address] Protein [Mass/Vol] 6.9 g/dL Normal 6.4-8.9 [facility] Comment on above: Performed By: #### A CTH #### [facility] , #### TSH3, T4F, JER, CMP #### [facility] [address] [id number] [facility] 36on 10-19-2023 36 Can we please have h er increase her metoprolol to a full tablet of 25mg daily and see if this helps? Thanks Normal [facility] Office Visiton 10-12-2023 Follow-up visit [id number] Perla Ibarra 1955 F Date Provider Department Center 10/12/2023 [facility] Family History Problem Relation Age of Onset Tuberculosis Mother Heart attack Brother Heart failure Maternal Grandmother Heart attack Maternal Grandfather Family Status - Relation Status Age at Mother Brother Maternal Grandmother Maternal Grandfather Level of Service:20294 [place] OFFICE/OUTPATIENT ESTABLISHED LOW MDM 20 MIN Reason for Visit and Comments: Congestive Heart Failure [127] Coronary Artery Disease [187] Hypertension [508471] Normal [facility] Ferritin [Mass/volume] in Se rum or PlasmaOrdered By: Vannessa Perales on 10-05-2023 Ferritin [Mass/Vol] 994.8 ng/mL 11.0-306.8 [facility] Iron [Mass/volume] in Serum or PlasmaOrdered By: Vannessa Perales on 10-05-2023 Iron [Mass/Vol] 26 ug/dL 50-212 [facility] Iron binding capacity [Mass/ volume] in Serum or PlasmaOrdered By: Vannessa Perales on 10-05-2023 Iron binding capacity [Mass/Vol] 239 ug/dL 255-450 [facility] Iron saturation [Mass Fracti on] in Serum or PlasmaOrdered By: Vannessa Perales on 10-05-2023 Iron saturation [Mass fraction] 10.9 % 20-50 [facility] Transferrin [Mass/volume] in Serum or PlasmaOrdered By: Vannessa Perales on 10-05-2023 Transferrin [Mass/Vol] 171 mg/dL 203-362 [facility] Alanine aminotransferase [En zymatic activity/volume] in Serum or PlasmaOrdered By: Aries Chavez on 10-04-2023 ALT [Catalytic activity/Vol] 67 U/L 7-52 [facility] Albumin [Mass/volume] in Ser um or Plasma by Bromocresol green (BCG) dye binding methoOrdered By: Aries Chavez on 10-04-2023 Albumin BCG dye [Mass/Vol] 3.4 g/dL 3.5-5.7 [facility] Alkaline phosphatase [Enzyma tic activity/volume] in Serum or PlasmaOrdered By: Aries Chavez on 10-04-2023 ALP [Catalytic activity/Vol] 113 U/L 34-104 [facility] Aspartate aminotransferase [ Enzymatic activity/volume] in Serum or PlasmaOrdered By: Aries Chavez on 10-04-2023 AST [Catalytic activity/Vol] 22 U/L 13-39 [facility] Basophils Auto (Bld) [#/Vol] Ordered By: Aries Chavez on 10-04-2023 Basophils (Bld) [#/Vol] 0.1 10*3/uL 0.0-0.2 [facility] Basophils/100 WBC Auto (Bld) Ordered By: Aries Chavez on 10-04-2023 Basophils/100 WBC (Bld) 2.3 % . [facility] Bilirubin.total [Mass/volume ] in Serum or PlasmaOrdered By: Aries Chavez on 10-04-2023 Bilirubin [Mass/Vol] 0.3 mg/dL 0.3-1.0 [facility] Calcium [Mass/volume] in Ser um or PlasmaOrdered By: Aries Chavez on 10-04-2023 Calcium [Mass/Vol] 8.9 mg/dL 8.6-10.3 [facility] Carbon dioxide, total [Moles /volume] in Serum or PlasmaOrdered By: Aries Chavez on 10-04-2023 CO2 [Moles/Vol] 26.2 mmol/L 21.0-31.0 [facility] Chloride [Moles/volume] in S leena or PlasmaOrdered By: Aries Chavez on 10-04-2023 Chloride [Moles/Vol] 94 mmol/L 98-107 [facility] Creatinine [Mass/volume] in Serum or PlasmaOrdered By: Aries Chavez on 10-04-2023 Creatinine [Mass/Vol] 0.75 mg/dL 0.60-1.20 [facility] Eosinophils Auto (Bld) [#/Vo l]Ordered By: Aries Chavez on 10-04-2023 Eosinophils (Bld) [#/Vol] 0.2 10*3/uL 0.0-0.45 [facility] Eosinophils/100 WBC Auto (Bl d)Ordered By: Aries Chavez on 10-04-2023 Eosinophils/100 WBC (Bld) 2.8 % . [facility] Erythrocyte distribution wid th Auto (RBC) [Ratio]Ordered By: Aries Chavez on 10-04-2023 Erythrocyte distribution width (RBC) [Ratio] 18.4 % 11.9-15.3 [facility] Globulin Calc (S) [Mass/Vol] Ordered By: Aries Chavez on 10-04-2023 Globulin (S) [Mass/Vol] 4.5 g/dL [facility] Glucose [Mass/volume] in Ser um or PlasmaOrdered By: Aries Chavez on 10-04-2023 Glucose [Mass/Vol] 101 mg/dL 70-100 [facility] Comment on above: ADA recommended refe rence rangeRandom Glucose Reference Range is dependent on time and content of last meal. Glucose of more than 200 mg/dL in a nonstressed, ambulatory subject supports the diagnosis of Diabetes Mellitus. Hematocrit Auto (Bld) [Volum e fraction]Ordered By: Aries Chavez on 10-04-2023 Hematocrit (Bld) [Volume fraction] 26.2 % 34.0-46.4 [facility] Hemoglobin [Mass/volume] in BloodOrdered By: Aries Chavez on 10-04-2023 Hemoglobin (Bld) [Mass/Vol] 8.4 g/dL 11.8-15.4 [facility] Leukocytes [#/volume] correc gabriel for nucleated erythrocytes in Blood by Automated counOrdered By: Aries Chavez on 10-04-2023 WBC corrected for nucl RBC Auto (Bld) [#/Vol] 5.8 10*3/uL 3.8-11.6 [facility] Lymphocytes Auto (Bld) [#/Vo l]Ordered By: Aries Chavez on 10-04-2023 Lymphocytes (Bld) [#/Vol] 1.2 10*3/uL 1.00-4.8 [facility] Lymphocytes/100 WBC Auto (Bl d)Ordered By: Aries Chavez on 10-04-2023 Lymphocytes/100 WBC (Bld) 21.7 % . [facility] MCH Auto (RBC) [Entitic mass ]Ordered By: Aries Chavez on 10-04-2023 MCH (RBC) [Entitic mass] 25.3 pg 24.7-34.3 [facility] MCHC Auto (RBC) [Mass/Vol]Or dered By: Aries Chavez on 10-04-2023 MCHC (RBC) [Mass/Vol] 32.0 g/dL 32.0-35.0 [facility] MCV Auto (RBC) [Entitic vol] Ordered By: Aries Chavez on 10-04-2023 MCV (RBC) [Entitic vol] 79.1 fL 80-100 [facility] Monocytes Auto (Bld) [#/Vol] Ordered By: Aries Chavez on 10-04-2023 Monocytes (Bld) [#/Vol] 0.7 10*3/uL 0.0-0.8 [facility] Monocytes/100 WBC Auto (Bld) Ordered By: Aries Chavez on 10-04-2023 Monocytes/100 WBC (Bld) 11.5 % . [facility] Neutrophils Auto (Bld) [#/Vo l]Ordered By: Aries Chavez on 10-04-2023 Neutrophils (Bld) [#/Vol] 3.6 10*3/uL 1.8-7.7 [facility] Neutrophils/100 WBC Auto (Bl d)Ordered By: Aries Chavez on 10-04-2023 Neutrophils/100 WBC (Bld) 61.7 % . [facility] No Panel InformationOrdered By: Aries Chavez on 10-04-2023 Adrenocorticotropic Hormone 25.4 pg/mL 7.2-63.3 [facility] Comment on above: ACTH reference inter wendy for samples collected between 7 and10 AM.Performed at: - [place] [id number] [place], [place] [id number] Director: Juan Hendricks PhD, Phone: [phone] Estimated GFR (CKD-EPI) > 60.0 mL/Min [facility] Creatinine Clearance (Chem 59.72 [facility] Nucleated erythrocytes [Pres ence] in Blood by Automated countOrdered By: Aries Chavez on 10-04-2023 Nucleated RBC Auto Ql (Bld) 0.1 /100{WBC} 0-0.5 [facility] Platelet mean volume Auto (B ld) [Entitic vol]Ordered By: Aries Chavez on 10-04-2023 Platelet mean volume (Bld) [Entitic vol] 6.8 fL 6.3-10.7 [facility] Platelets Auto (Bld) [#/Vol] Ordered By: Aries Chavez on 10-04-2023 Platelets (Bld) [#/Vol] 404 10*3/uL 150-450 [facility] Potassium [Moles/volume] in Serum or PlasmaOrdered By: Aries Chavez on 10-04-2023 Potassium [Moles/Vol] 4.7 mmol/L 3.5-5.1 [facility] Protein [Mass/volume] in Ser um or PlasmaOrdered By: Aries Chavez on 10-04-2023 Protein [Mass/Vol] 7.9 g/dL 6.4-8.9 [facility] RBC Auto (Bld) [#/Vol]Ordere d By: Aries Chavez on 10-04-2023 RBC (Bld) [#/Vol] 3.32 10*6/uL 3.60-5.00 [facility] Random cortisol measurementO rdered By: Aries Chavez on 10-04-2023 Cortisol [Mass/Vol] 12.2 ug/dL [facility] Comment on above: [facility] awning hanger helper and method:[employer] UNICEL DXI, POLYCLONAL ANTIBODY CORTISOL ASSAY.Reference range: AM 6 - 24 ug/dl PM <10 ug/dl Serum or plasma albumin/glob ulin mass ratioOrdered By: Aries Chavez on 10-04-2023 Albumin/Globulin [Mass ratio] 0.8 {ratio} [facility] Serum or plasma anion gap de terminationOrdered By: Aries Chavez on 10-04-2023 Anion gap [Moles/Vol] 9.5 mmol/L 6.0-15.0 [facility] Sodium [Moles/volume] in Ser um or PlasmaOrdered By: Aries Chavez on 10-04-2023 Sodium [Moles/Vol] 125 mmol/L 136-145 [facility] Thyrotropin [Units/volume] i n Serum or PlasmaOrdered By: Aries Chavez on 10-04-2023 TSH Qn 1.03 m[IU]/L 0.45-5.33 [facility] Thyroxine (T4) free [Mass/vo lume] in Serum or PlasmaOrdered By: Aries Chavez on 10-04-2023 Free T4 [Mass/Vol] 1.00 ng/dL 0.61-1.12 [facility] Urea nitrogen [Mass/volume] in Serum or PlasmaOrdered By: Aries Chavez on 10-04-2023 Urea nitrogen [Mass/Vol] 17 mg/dL 7-25 [facility] WBC Auto (Bld) [#/Vol]Ordere d By: Aries Chavez on 10-04-2023 WBC (Bld) [#/Vol] 5.8 10*3/uL 3.8-11.6 [facility] Anisocytosis LM Ql (Bld)Orde red By: Aries Chavez on 09-12-2023 Anisocytosis Ql (Bld) Moderate [facility] Automated erythrocytes count in urine sediment (number/area)Ordered By: Aries Chavez on 09-12-2023 RBC Auto (Urine sed) [#/Area] 5-9 [HPF] High 0-4 [facility] Automated leukocytes count i n urine sediment (number/area)Ordered By: Aries Chavez on 09-12-2023 WBC Auto (Urine sed) [#/Area] 5-9 [HPF] High 0-4 [facility] Bilirubin Test strip Ql (U)O rdered By: Aries Chavez on 09-12-2023 Bilirubin Ql (U) Negative Negative [facility] Color Auto (U)Ordered By: Gregorio Chavez on 09-12-2023 Color (U) Yellow Yellow [facility] Hypochromia LM Ql (Bld)Order ed By: Aries Chavez on 09-12-2023 Hypochromia Ql (Bld) Moderate [facility] Ketones Auto test strip (U) [Mass/Vol]Ordered By: Aries Chavez on 09-12-2023 Ketones (U) [Mass/Vol] Negative Negative [facility] Laboratory - UrinalysisOrder ed By: Aries Chavez on 09-12-2023 Hyaline casts LM Ql (Urine sed) 0-8 [LPF] 0-8 [facility] Microcytes LM Ql (Bld)Ordere d By: Aries Chavez on 09-12-2023 Microcytes Ql (Bld) Slight [facility] Nitrite Test strip Ql (U)Ord ered By: Aries Chavez on 09-12-2023 Nitrite Ql (U) Negative Negative [facility] No Panel InformationOrdered By: Aries Chavez on 09-12-2023 Adrenocorticotropic Hormone 33.9 pg/mL 7.2-63.3 [facility] Comment on above: ACTH reference inter wendy for samples collected between 7 and10 AM.Performed at: - [address] [id number] Director: Juan Hendricks PhD, Phone: [phone] Ovalocyte detectionOrdered B y: Aries Chavez on 09-12-2023 Ovalocytes LM Ql (Bld) Slight [facility] Platelet adequacy [Presence] in Blood by Light microscopyOrdered By: Aries Chavez on 09-12-2023 Platelets LM Ql (Bld) Normal Normal [facility] Platelet morphology finding [Identifier] in BloodOrdered By: Aries Chavez on 09-12-2023 Platelet morphology finding Nom (Bld) Normal Normal [facility] Poikilocytosis [Presence] in Blood by Light microscopyOrdered By: Aries Chavez on 09-12-2023 Poikilocytosis LM Ql (Bld) Slight [facility] Polychromasia [Presence] in Blood by Light microscopyOrdered By: Aries Chavez on 09-12-2023 Polychromasia LM Ql (Bld) Slight [facility] Protein Auto test strip (U) [Mass/Vol]Ordered By: Aries Chavez on 09-12-2023 Protein (U) [Mass/Vol] 100 mg/dL High Negative Fi [facility] RBC morphologyOrdered By: Gregorio Chavez on 09-12-2023 RBC morphology finding Nom (Bld) N/A [facility] Specific gravity Auto test s trip (U) [Rel density]Ordered By: Aries Chavez on 09-12-2023 Specific gravity (U) [Rel density] 1.012 1.001-1.03 0 [facility] Squamous epithelial cells de tection in urine sediment by light microscopyOrdered By: Aries Chavez on 09-12-2023 Epithelial cells.squamous LM Ql (Urine sed) None seen [HPF] 0-2 [facility] Urine bacteria detection by automated methodOrdered By: Aries Chavez on 09-12-2023 Bacteria Auto Ql (U) None seen None Seen [facility] Urine clarity by refractomet ry automatedOrdered By: Aries Chavez on 09-12-2023 Clarity Refractometry automated (U) Clear Clear [facility] Urine culture routineOrdered By: Aries Chavez on 09-12-2023 Bacteria identified Cx Nom (U) 2 Days [facility] Bacteria identified Cx Nom (U) 2 Days [facility] Urine glucose measurement by automated test strip (mass/volume)Ordered By: Aries Chavez on 09-12-2023 Glucose Auto test strip (U) [Mass/Vol] Normal mg/dL Normal [facility] Urine hemoglobin detection b y automated test stripOrdered By: Aries Chavez on 09-12-2023 Hemoglobin Auto test strip Ql (U) 2+ High Negative [facility] Urine leukocyte esterase det ection by automated test stripOrdered By: Aries Chavez on 09-12-2023 Leukocyte esterase Auto test strip Ql (U) 2+ High Negative [facility] Urobilinogen Auto test strip (U) [Mass/Vol]Ordered By: Aries Chavez on 09-12-2023 Urobilinogen (U) [Mass/Vol] Normal mg/dL Normal [facility] Whole blood hypersegmented n eutrophils detection by light microscopyOrdered By: Aries Chavez on 09-12-2023 Neutrophils.hypersegme nted LM Ql (Bld) Slight [facility] Yeast detection in urine sed iment by light microscopyOrdered By: Aries Chavez on 09-12-2023 Yeast LM Ql (Urine sed) None seen [HPF] None Seen [facility] pH Auto test strip (U)Ordere d By: Aries Chavez on 09-12-2023 pH (U) 6.0 [pH] 5.0-9.0 [facility] Activated partial thrombopla stin time (aPTT) in platelet poor plasma by coagulation aOrdered By: Aries Chaevz on 08-22-2023 aPTT Coag (PPP) [Time] 28.9 s 25.1-36.5 [facility] Comment on above: A hematocrit value g reater than 55% may lead to inaccurate results in coagulation testing. Patients having hematocrit values >55% require a special collection tube for coagulation studies. Please contact the laboratory at [phone] for redraw instructions. INR in Platelet poor plasma by Coagulation assayOrdered By: Aries Chavez on 08-22-2023 INR Coag (PPP) [Relative time] 1.1 {INR} [facility] Comment on above: INR Therapeutic Rang e A) Pre- and Peroperative OAT started two weeks before surgery. NOT HIP SURGERY: 1.5 - 2.5 HIP SURGERY: 2 - 3B) Primary and secondary prevention of venous THROMBOSIS: 2 - 3C) Active venous thrombosis, pulmonary embolismand prevention of recurrent venous thrombosis: 2 - 3D) Prevention of arterial thromboembolismincluding patients with mechanical heart valves: 3 - 4.5 Platelets Auto (Bld) [#/Vol] Ordered By: Aries Chavez on 08-22-2023 Platelets (Bld) [#/Vol] 368 10*3/uL 150-450 [facility] Prothrombin time (PT)Ordered By: Aries Chaevz on 08-22-2023 PT Coag (PPP) [Time] 13.1 s 9.0-12.9 [facility] Comment on above: A hematocrit value g reater than 55% may lead to inaccurate results in coagulation testing. Patients having hematocrit values >55% require a special collection tube for coagulation studies. Please contact the laboratory at [phone] for redraw instructions. Alanine aminotransferase [En zymatic activity/volume] in Serum or PlasmaOrdered By: Aries Chavez on 07-31-2023 ALT [Catalytic activity/Vol] 40 U/L 7-52 [facility] Albumin [Mass/volume] in Ser um or Plasma by Bromocresol green (BCG) dye binding methoOrdered By: Aries Chavez on 07-31-2023 Albumin BCG dye [Mass/Vol] 3.7 g/dL 3.5-5.7 [facility] Alkaline phosphatase [Enzyma tic activity/volume] in Serum or PlasmaOrdered By: Aries Chavez on 07-31-2023 ALP [Catalytic activity/Vol] 91 U/L 34-104 [facility] Aspartate aminotransferase [ Enzymatic activity/volume] in Serum or PlasmaOrdered By: Aries Chavez on 07-31-2023 AST [Catalytic activity/Vol] 12 U/L 13-39 [facility] Automated erythrocytes count in urine sediment (number/area)Ordered By: Aries Chavez on 07-31-2023 RBC Auto (Urine sed) [#/Area] 5-9 [HPF] 0-4 [facility] Automated leukocytes count i n urine sediment (number/area)Ordered By: Aries Chavez on 07-31-2023 WBC Auto (Urine sed) [#/Area] None seen [HPF] 0-4 [facility] Basophils Auto (Bld) [#/Vol] Ordered By: Aries Chavez on 07-31-2023 Basophils (Bld) [#/Vol] 0.2 10*3/uL 0.0-0.2 [facility] Basophils/100 WBC Auto (Bld) Ordered By: Aries Chavez on 07-31-2023 Basophils/100 WBC (Bld) 2.0 % . [facility] Bilirubin Test strip Ql (U)O rdered By: Aries Chavez on 07-31-2023 Bilirubin Ql (U) See comment Negative [facility] Comment on above: Unable to obtain acc urate result due to color interference. Bilirubin.total [Mass/volume ] in Serum or PlasmaOrdered By: Aries Chavez on 07-31-2023 Bilirubin [Mass/Vol] 0.4 mg/dL 0.3-1.0 [facility] Calcium [Mass/volume] in Ser um or PlasmaOrdered By: Aries Chavez on 07-31-2023 Calcium [Mass/Vol] 9.6 mg/dL 8.6-10.3 [facility] Carbon dioxide, total [Moles /volume] in Serum or PlasmaOrdered By: Aries Chavez on 07-31-2023 CO2 [Moles/Vol] 24.3 mmol/L 21.0-31.0 [facility] Chloride [Moles/volume] in S leena or PlasmaOrdered By: Aries Chavez on 07-31-2023 Chloride [Moles/Vol] 94 mmol/L 98-107 [facility] Color Auto (U)Ordered By: Gregorio Chavez on 07-31-2023 Color (U) Elayne Yellow [facility] Creatinine [Mass/volume] in Serum or PlasmaOrdered By: Aries Chavez on 07-31-2023 Creatinine [Mass/Vol] 0.91 mg/dL 0.60-1.20 [facility] Eosinophils Auto (Bld) [#/Vo l]Ordered By: Aries Chavez on 07-31-2023 Eosinophils (Bld) [#/Vol] 0.1 10*3/uL 0.0-0.45 [facility] Eosinophils/100 WBC Auto (Bl d)Ordered By: Aries Chavez on 07-31-2023 Eosinophils/100 WBC (Bld) 1.8 % . [facility] Erythrocyte distribution wid th Auto (RBC) [Ratio]Ordered By: Aries Chavez on 07-31-2023 Erythrocyte distribution width (RBC) [Ratio] 15.4 % 11.9-15.3 [facility] Ferritin [Mass/volume] in Se rum or PlasmaOrdered By: Aries Chavez on 07-31-2023 Ferritin [Mass/Vol] 342.0 ng/mL 11.0-306.8 [facility] Globulin Calc (S) [Mass/Vol] Ordered By: Aries Chavez on 07-31-2023 Globulin (S) [Mass/Vol] 4.6 g/dL [facility] Glucose [Mass/volume] in Ser um or PlasmaOrdered By: Aries Chavez on 07-31-2023 Glucose [Mass/Vol] 105 mg/dL 70-100 [facility] Comment on above: ADA recommended refe rence rangeRandom Glucose Reference Range is dependent on time and content of last meal. Glucose of more than 200 mg/dL in a nonstressed, ambulatory subject supports the diagnosis of Diabetes Mellitus. Hematocrit Auto (Bld) [Volum e fraction]Ordered By: Aries Chavez on 07-31-2023 Hematocrit (Bld) [Volume fraction] 22.5 % 34.0-46.4 [facility] Hemoglobin [Mass/volume] in BloodOrdered By: Aries Chavez on 07-31-2023 Hemoglobin (Bld) [Mass/Vol] 7.3 g/dL 11.8-15.4 [facility] Iron [Mass/volume] in Serum or PlasmaOrdered By: Aries Chavez on 07-31-2023 Iron [Mass/Vol] 24 ug/dL 50-212 [facility] Iron binding capacity [Mass/ volume] in Serum or PlasmaOrdered By: Aries Chavez on 07-31-2023 Iron binding capacity [Mass/Vol] 304 ug/dL 255-450 [facility] Iron saturation [Mass Fracti on] in Serum or PlasmaOrdered By: Aries Chavez on 07-31-2023 Iron saturation [Mass fraction] 7.9 % 20-50 [facility] Ketones Auto test strip (U) [Mass/Vol]Ordered By: Aries Chavez on 07-31-2023 Ketones (U) [Mass/Vol] See comment Negative [facility] Comment on above: Unable to obtain acc urate result due to color interference. Laboratory - UrinalysisOrder ed By: Aries Chavez on 07-31-2023 Hyaline casts LM Ql (Urine sed) None seen [LPF] 0-8 [facility] Leukocytes [#/volume] correc gabriel for nucleated erythrocytes in Blood by Automated counOrdered By: Aries Chavez on 07-31-2023 WBC corrected for nucl RBC Auto (Bld) [#/Vol] 8.2 10*3/uL 3.8-11.6 [facility] Lymphocytes Auto (Bld) [#/Vo l]Ordered By: Aries Chavez on 07-31-2023 Lymphocytes (Bld) [#/Vol] 1.8 10*3/uL 1.00-4.8 [facility] Lymphocytes/100 WBC Auto (Bl d)Ordered By: Aries Chavez on 07-31-2023 Lymphocytes/100 WBC (Bld) 22.3 % . [facility] MCH Auto (RBC) [Entitic mass ]Ordered By: Aries Chavez on 07-31-2023 MCH (RBC) [Entitic mass] 22.8 pg 24.7-34.3 [facility] MCHC Auto (RBC) [Mass/Vol]Or dered By: Aries Chavez on 07-31-2023 MCHC (RBC) [Mass/Vol] 32.3 g/dL 32.0-35.0 [facility] MCV Auto (RBC) [Entitic vol] Ordered By: Aries Chavez on 07-31-2023 MCV (RBC) [Entitic vol] 70.8 fL 80-100 [facility] Monocytes Auto (Bld) [#/Vol] Ordered By: Aries Chavez on 07-31-2023 Monocytes (Bld) [#/Vol] 0.7 10*3/uL 0.0-0.8 [facility] Monocytes/100 WBC Auto (Bld) Ordered By: Aries Chavez on 07-31-2023 Monocytes/100 WBC (Bld) 8.2 % . [facility] Neutrophils Auto (Bld) [#/Vo l]Ordered By: Aries Chavez on 07-31-2023 Neutrophils (Bld) [#/Vol] 5.4 10*3/uL 1.8-7.7 [facility] Neutrophils/100 WBC Auto (Bl d)Ordered By: Aries Chavez on 07-31-2023 Neutrophils/100 WBC (Bld) 65.7 % . [facility] Nitrite Test strip Ql (U)Ord ered By: Aries Chavez on 07-31-2023 Nitrite Ql (U) See comment Negative [facility] Comment on above: Unable to obtain acc urate result due to color interference. No Panel InformationOrdered By: Aries Chavez on 07-31-2023 Estimated GFR (CKD-EPI) > 60.0 mL/Min [facility] Creatinine Clearance (Chem 53.24 [facility] Nucleated erythrocytes [Pres ence] in Blood by Automated countOrdered By: Aries Chavez on 07-31-2023 Nucleated RBC Auto Ql (Bld) 0.1 /100{WBC} 0-0.5 [facility] Platelet mean volume Auto (B ld) [Entitic vol]Ordered By: Aries Chavez on 07-31-2023 Platelet mean volume (Bld) [Entitic vol] 7.7 fL 6.3-10.7 [facility] Platelets Auto (Bld) [#/Vol] Ordered By: Aries Chavez on 07-31-2023 Platelets (Bld) [#/Vol] 487 10*3/uL 150-450 [facility] Potassium [Moles/volume] in Serum or PlasmaOrdered By: Aries Chavez on 07-31-2023 Potassium [Moles/Vol] 5.3 mmol/L 3.5-5.1 [facility] Protein Auto test strip (U) [Mass/Vol]Ordered By: Aries Chavez on 07-31-2023 Protein (U) [Mass/Vol] See comment Negative [facility] Comment on above: Unable to obtain acc urate result due to color interference. Protein [Mass/volume] in Ser um or PlasmaOrdered By: Aries Chavez on 07-31-2023 Protein [Mass/Vol] 8.3 g/dL 6.4-8.9 [facility] RBC Auto (Bld) [#/Vol]Ordere d By: Aries Chavez on 07-31-2023 RBC (Bld) [#/Vol] 3.18 10*6/uL 3.60-5.00 [facility] Serum or plasma albumin/glob ulin mass ratioOrdered By: Aries Chavez on 07-31-2023 Albumin/Globulin [Mass ratio] 0.8 {ratio} [facility] Serum or plasma anion gap de terminationOrdered By: Aries Chavez on 07-31-2023 Anion gap [Moles/Vol] 14.0 mmol/L 6.0-15.0 [facility] Sodium [Moles/volume] in Ser um or PlasmaOrdered By: Aries Chavez on 07-31-2023 Sodium [Moles/Vol] 127 mmol/L 136-145 [facility] Specific gravity Auto test s trip (U) [Rel density]Ordered By: Aries Chavez on 07-31-2023 Specific gravity (U) [Rel density] 1.015 1.001-1.03 0 [facility] Squamous epithelial cells de tection in urine sediment by light microscopyOrdered By: Aries Chavez on 07-31-2023 Epithelial cells.squamous LM Ql (Urine sed) 0-1 [HPF] 0-2 [facility] Transferrin [Mass/volume] in Serum or PlasmaOrdered By: Aries Chavez on 07-31-2023 Transferrin [Mass/Vol] 217 mg/dL 203-362 [facility] Urea nitrogen [Mass/volume] in Serum or PlasmaOrdered By: Aries Chavez on 07-31-2023 Urea nitrogen [Mass/Vol] 15 mg/dL 7-25 [facility] Urine bacteria detection by automated methodOrdered By: Aries Chavez on 07-31-2023 Bacteria Auto Ql (U) None seen None Seen [facility] Urine clarity by refractomet ry automatedOrdered By: Aries Chavez on 07-31-2023 Clarity Refractometry automated (U) Turbid Clear [facility] Urine culture routineOrdered By: Aries Chavez on 07-31-2023 Bacteria identified Cx Nom (U) 2 Days [facility] Bacteria identified Cx Nom (U) 2 Days [facility] Urine glucose measurement by automated test strip (mass/volume)Ordered By: Aries Chavez on 07-31-2023 Glucose Auto test strip (U) [Mass/Vol] See comment Normal [facility] Comment on above: Unable to obtain acc urate result due to color interference. Urine hemoglobin detection b y automated test stripOrdered By: Aries Chavez on 07-31-2023 Hemoglobin Auto test strip Ql (U) See comment Negative [facility] Comment on above: Unable to obtain acc urate result due to color interference. Urine leukocyte esterase det ection by automated test stripOrdered By: Aries Chavez on 07-31-2023 Leukocyte esterase Auto test strip Ql (U) See comment Negative [facility] Comment on above: Unable to obtain acc urate result due to color interference. Urobilinogen Auto test strip (U) [Mass/Vol]Ordered By: Aries Chavez on 07-31-2023 Urobilinogen (U) [Mass/Vol] See comment Normal [facility] Comment on above: Unable to obtain acc urate result due to color interference. WBC Auto (Bld) [#/Vol]Ordere d By: Aries Chavez on 07-31-2023 WBC (Bld) [#/Vol] 8.2 10*3/uL 3.8-11.6 [facility] pH Auto test strip (U)Ordere d By: Aries Chavez on 07-31-2023 pH (U) See comment 5.0-9.0 [facility] Comment on above: Unable to obtain acc urate result due to color interference. Office Visiton 07-26-2023 Follow-up visit [id number] Perla Ibarra 1955 F Date Provider Department Center 07/26/2023 [facility]ADD[facility] FLOR[facility] [place] Family History Problem Relation Age of Onset Tuberculosis Mother Heart attack Brother Heart failure Maternal Grandmother Heart attack Maternal Grandfather Family Status - Relation Status Age at Mother Brother Maternal Grandmother Maternal Grandfather Level of Service:04239 [place] OFFICE/OUTPATIENT ESTABLISHED MOD MDM 30-39 MIN Reason for Visit and Comments: renal mass [Other] - Pt c/o pelvic pain and gross hematuria Normal [facility] PROF CHEM 8 (BAS METB)on Anion gap [Moles/Vol] 13.5 mmol/L Normal [facility] [place] Comment on above: Performed By: #### N A #### [facility] [address] [address] [address] Allen Smith Calcium [Mass/Vol] 9.6 mg/dL Normal 8.5-10.1 [facility] Comment on above: Performed By: #### N A #### [facility] [address] [address] [address] Allen Smith Chloride [Moles/Vol] 95 mmol/L Critically low 98-107 [facility] Comment on above: Performed By: #### N A #### [facility] [address] [place] [address] Dr. Allen Smith CO2 [Moles/Vol] 27.1 mmol/L Normal 21.0-32.0 [facility] Comment on above: Performed By: #### N A #### [facility] [address] [address] [address] Allen Smith Creatinine [Mass/Vol] 0.93 mg/dL Normal 0.55-1.02 [facility] Comment on above: Performed By: #### N A #### [facility] [address] [address] [address] Allen Smith EGFR-AF IRANIAN >60 Normal >=60 [facility] Comment on above: Performed By: #### N A #### [facility] [address] [address] [address] Allen Smith EGFR-NON AF IRANIAN 60 mL/min/1.73m2 Normal >=60 [facility] Comment on above: Performed By: #### N A #### [facility] [address] [address] [address] Allen Smith Glucose [Mass/Vol] 123 mg/dL Critically high 74-106 [facility] Comment on above: Performed By: #### N A #### [facility] [address] [place] [address] Dr. Allen Smith Potassium [Moles/Vol] 4.6 mmol/L Normal 3.5-5.1 [facility] Comment on above: Performed By: #### N A #### [facility] [address] [place] [address] Dr. Allen Smith Sodium [Moles/Vol] 131 mmol/L Critically low 136-145 [facility] [place] Comment on above: Performed By: #### N A #### [facility] [address] [place] [address] Dr. Allen Smith Urea nitrogen [Mass/Vol] 8.0 mg/dL Normal 7.0-18.0 [facility] Comment on above: Performed By: #### N A #### [facility] [address] [place] [address] Dr. Allen Smith Urea nitrogen/Creatinine [Mass ratio] 8.6 mg/mg Normal [facility] Comment on above: Performed By: #### N A #### [facility] [address] [place] [address] Dr. Allen Smith BNPon 02-07-2023 Natriuretic peptide B (Bld) [Mass/Vol] 1572.0 pg/mL Critically high <=900.0 [facility] Comment on above: Performed By: #### N A #### [facility] [address] [place] [address] Dr. Allen Smith CBC AUTO DIFFon 02-07-2023 BASO # 0.1 103/ul Normal 0.0-0.1 [facility] Comment on above: Performed By: #### C BC #### [facility] [address] [place] [address] Dr. Allen Smith Basophils/100 WBC (Bld) 0.7 % Normal 0.2-2.0 [facility] Comment on above: Performed By: #### C BC #### [facility] [address] [place] [address] Dr. Allen Smith EO # 0.2 103/ul Normal 0.0-0.7 [facility] Comment on above: Performed By: #### C BC #### [facility] [address] [place] [address] Dr. Allen Smith Eosinophils/100 WBC (Bld) 2.8 % Normal 0.9-7.0 [facility] Comment on above: Performed By: #### C BC #### [facility] [address] [place] [address] Dr. Allen Smith Erythrocyte distribution width (RBC) [Ratio] 15.2 % Critically high 11.0-15.0 [facility] Comment on above: Performed By: #### C BC #### [facility] [address] [place] [address] Dr. Allen Smith Hematocrit (Bld) [Volume fraction] 29.9 % Critically low 36.0-48.0 [facility] Comment on above: Performed By: #### C BC #### [facility] [address] [place] [address] Dr. Allen Smith Hemoglobin (Bld) [Mass/Vol] 9.4 g/dL Critically low 12.0-16.0 [facility] Comment on above: Performed By: #### C BC #### [facility] [address] [place] [address] Dr. Allen Smith IG # 0.03 10e3/ul Normal 0.00-0.03 [facility] Comment on above: Performed By: #### C BC #### [facility] [address] [place] [address] Dr. Allen Smith IG % 0.4 % Normal 0.0-0.5 [facility] Comment on above: Performed By: #### C BC #### [facility] [address] [place] [address] Dr. Allen Smith LYMPH # 1.5 103/ul Normal 1.2-3.8 [facility] Comment on above: Performed By: #### C BC #### [facility] [address] [place] [address] Dr. Allen Smith Lymphocytes/100 WBC (Bld) 18.0 % Critically low 20.5-60.0 [facility] Comment on above: Performed By: #### C BC #### [facility] [address] [place] [address] Dr. Allen Smith MANUAL DIFF REQ NO Normal [facility] Comment on above: Performed By: #### C BC #### [facility] [address] [place] [address] Dr. Allen Smith MCH (RBC) [Entitic mass] 24.7 pg Critically low 26.7-34.0 [facility] Comment on above: Performed By: #### C BC #### [facility] [address] [place] [address] Dr. Allen Smith MCHC (RBC) [Mass/Vol] 31.4 g/dL Normal 29.9-35.2 [facility] Comment on above: Performed By: #### C BC #### [facility] [address] [place] [address] Dr. Allen Smith MCV (RBC) [Entitic vol] 78.7 fL Critically low 81.0-99.0 [facility] Comment on above: Performed By: #### C BC #### [facility] [address] [place] [address] Dr. Allen Smith MONO # 0.8 103/ul Normal 0.3-0.8 [facility] Comment on above: Performed By: #### C BC #### [facility] [address] [place] [address] Dr. Allen Smith Monocytes/100 WBC (Bld) 9.5 % Normal 1.7-12.0 [facility] Comment on above: Performed By: #### C BC #### [facility] [address] [place] [address] Dr. Allen Smith NEUT # 5.7 103/ul Normal 1.4-6.5 [facility] Comment on above: Performed By: #### C BC #### [facility] [address] [place] [address] Dr. Allen Smith Neutrophils/100 WBC (Bld) 68.6 % Normal 43.0-75.0 [facility] Comment on above: Performed By: #### C BC #### [facility] [address] [place] [address] Dr. Allen Smith Platelet mean volume (Bld) [Entitic vol] 10.2 fL Normal 9.5-13.5 [facility] Comment on above: Performed By: #### C BC #### [facility] [address] [place] [address] Dr. Allen Smith PLT 324 103/ul Normal 150-450 [facility] Comment on above: Performed By: #### C BC #### [facility] [address] [place] [address] Dr. Allen Smith RBC 3.80 106/ul Critically low 4.20-5.40 [facility] Comment on above: Performed By: #### C BC #### [facility] [address] [place] [address] Dr. Allen Smith WBC 8.3 103/ul Normal 4.0-11.0 [facility] Comment on above: Performed By: #### C BC #### [facility] [address] [place] [address] Dr. Allen Smith PROF CHEM 8 (BAS METB)on Anion gap [Moles/Vol] 7.5 mmol/L Normal [facility] Comment on above: Performed By: #### N A #### [facility] [address] [place] [address] Dr. Allen Smith Calcium [Mass/Vol] 9.1 mg/dL Normal 8.5-10.1 [facility] Comment on above: Performed By: #### N A #### [facility] [address] [place] [address] Dr. Allen Smith Chloride [Moles/Vol] 97 mmol/L Critically low 98-107 [facility] Comment on above: Performed By: #### N A #### [facility] [address] [place] [address] Dr. Allen Smith CO2 [Moles/Vol] 30.9 mmol/L Normal 21.0-32.0 [facility] Comment on above: Performed By: #### N A #### [facility] [address] [place] [address] Dr. Allen Smith Creatinine [Mass/Vol] 0.84 mg/dL Normal 0.55-1.02 [facility] Comment on above: Performed By: #### N A #### [facility] [address] [place] [address] Dr. Allen Smith EGFR-AF IRANIAN >60 Normal >=60 [facility] Comment on above: Performed By: #### N A #### [facility] [address] [place] [address] Dr. Allen Smith EGFR-NON AF IRANIAN >60 Normal >=60 [facility] Comment on above: Performed By: #### N A #### [facility] [address] [place] [address] Dr. Allen Smith Glucose [Mass/Vol] 111 mg/dL Critically high 74-106 [facility] Comment on above: Performed By: #### N A #### [facility] [address] [place] [address] Dr. Allen Smith Potassium [Moles/Vol] 4.4 mmol/L Normal 3.5-5.1 [facility] Comment on above: Performed By: #### N A #### [facility] [address] [place] [address] Dr. Allen Smith Sodium [Moles/Vol] 131 mmol/L Critically low 136-145 [facility] [place] Comment on above: Performed By: #### N A #### [facility] [address] [place] [address] Dr. Allen Smith Urea nitrogen [Mass/Vol] 8.0 mg/dL Normal 7.0-18.0 [facility] Comment on above: Performed By: #### N A #### [facility] [address] [place] [address] Dr. Allen Smith Urea nitrogen/Creatinine [Mass ratio] 9.5 mg/mg Normal [facility] Comment on above: Performed By: #### N A #### [facility] [address] [place] [address] Dr. Allen Smith BLOOD GASES BTYon 01-25-2023 02 MODE VENTILATOR Normal [facility] Comment on above: Performed By: #### A BG #### [facility] [address] [place] [address] Dr. Allen Smith ALLENS TEST Positive [facility] Comment on above: Performed By: #### A BG #### [facility] [address] [place] [address] Dr. Allen Smith Base excess Calc (Bld) [Moles/Vol] -2.5000 mmol/L Critically low -2.0-2.0 [facility] Comment on above: Performed By: #### A BG #### [facility] [address] [place] [address] Dr. Allen Smith BIPAP PRESSURE [facility] Comment on above: Performed By: #### A BG #### [facility] [address] [place] [address] Dr. Allen Smith CPAP [facility] Comment on above: Performed By: #### A BG #### [facility] [address] [place] [address] Dr. Allen Smith FIO2 40.00 % [facility] Comment on above: Performed By: #### A BG #### [facility] [address] [place] [address] Dr. Allen Smith HCO3 (Bld) [Moles/Vol] 24.1 mmol/L Normal 22.0-26.0 [facility] Comment on above: Performed By: #### A BG #### [facility] [address] [place] [address] Dr. Allen Smith LPM [facility] Comment on above: Performed By: #### A BG #### [facility] [address] [place] [address] Dr. Allen Smith MINUTE VOLUME Normal [facility] Comment on above: Performed By: #### A BG #### [facility] [address] [place] [address] Dr. Allen Smith Oxygen (Bld) [Partial pressure] 85.1 mm[Hg] Normal 80.0-100.0 [facility] Comment on above: Performed By: #### A BG #### [facility] [address] [place] [address] Dr. Allen Smith Oxygen saturation in Blood 96.2 % Normal 95.0-100.0 [facility] Comment on above: Performed By: #### A BG #### [facility] [address] [place] [address] Dr. Allen Smith PCO2 50.1 mmHg Critically high 35.0-45.0 [facility] Comment on above: Performed By: #### A BG #### [facility] [address] [place] [address] Dr. Allen Smith PEEP 5 [facility] Comment on above: Performed By: #### A BG #### [facility] [address] [place] [address] Dr. Allen Smith pH (Bld) 7.290 [pH] Critically low 7.350-7.45 0 [facility] Comment on above: Performed By: #### A BG #### [facility] [address] [place] [address] Dr. Allen Smith PIP [facility] Comment on above: Performed By: #### A BG #### [facility] [address] [place] [address] Dr. Allen Smith PS [facility] Comment on above: Performed By: #### A BG #### [facility] [address] [place] [address] Dr. Allen Smith PUNCTURE SITE RR [facility] Comment on above: Performed By: #### A BG #### [facility] [address] [place] [address] Dr. Allen Smith RATE 12 bpm [facility] Comment on above: Performed By: #### A BG #### [facility] [address] [place] [address] Dr. Allen Smith VENT MODE ac [facility] Comment on above: Performed By: #### A BG #### [facility] [address] [place] [address] Dr. Allen Smith VT 450 ML [facility] Comment on above: Result Comment: Prev iously reported as: 400 On 01/25/2023 17:03 By GC1 Performed By: #### A BG #### [facility] [address] [place] [address] Dr. Allen Smith 02 MODE NASAL CANNULA [facility] Comment on above: Performed By: #### T SH #### [facility] [address] [place] [address] Dr. Allen Smith ALLENS TEST Positive [facility] Comment on above: Performed By: #### T SH #### [facility] [address] [place] [address] Dr. Allen Smith Base excess Calc (Bld) [Moles/Vol] -2.9000 mmol/L Critically low -2.0-2.0 [facility] Comment on above: Performed By: #### T SH #### [facility] [address] [place] [address] Dr. Allen Smith BIPAP PRESSURE [facility] Comment on above: Performed By: #### T SH #### [facility] [address] [place] [address] Dr. Allen Smith CPAP [facility] Comment on above: Performed By: #### T SH #### [facility] [address] [place] [address] Dr. Allen Smith FIO2 [facility] Comment on above: Performed By: #### T SH #### [facility] [address] [place] [address] Dr. Allen Smith HCO3 (Bld) [Moles/Vol] 24.2 mmol/L Normal 22.0-26.0 [facility] Comment on above: Performed By: #### T SH #### [facility] [address] [place] [address] Dr. Allen Smith LPM 2 [facility] Comment on above: Performed By: #### T SH #### [facility] [address] [place] [address] Dr. Allen Smith MINUTE VOLUME [facility] Comment on above: Performed By: #### T SH #### [facility] [address] [address] [address] Allen Smith Oxygen (Bld) [Partial pressure] 70.6 mm[Hg] Critically low 80.0-100.0 [facility] Comment on above: Performed By: #### T SH #### [facility] [address] [address] [address] Allen Smith Oxygen saturation in Blood 91.5 % Critically low 95.0-100.0 [facility] Comment on above: Performed By: #### T SH #### [facility] [address] [address] [address] Allen Smith PCO2 54.7 mmHg Critically high 35.0-45.0 [facility] Comment on above: Performed By: #### T SH #### [facility] [address] [place] [address] Dr. Allen Smith PEEP [facility] Comment on above: Performed By: #### T SH #### [facility] [address] [place] [address] Dr. Allen Smith pH (Bld) 7.255 [pH] Critically low 7.350-7.45 0 [facility] Comment on above: Performed By: #### T SH #### [facility] [address] [place] [address] Dr. Allen Smith PIP [facility] Comment on above: Performed By: #### T SH #### [facility] [address] [place] [address] Dr. Allen Smith PS [facility] Comment on above: Performed By: #### T SH #### [facility] [address] [place] [address] Dr. Allen Smith PUNCTURE SITE RR [facility] Comment on above: Performed By: #### T SH #### [facility] [address] [place] [address] Dr. Allen Smith RATE [facility] Comment on above: Performed By: #### T SH #### [facility] [address] [place] [address] Dr. Allen Smith [facility] Comment on above: Performed By: #### T SH #### [facility] [address] [place] [address] Dr. Allen Smith [facility] Comment on above: Performed By: #### T SH #### [facility] [address] [place] [address] Dr. Allen Smith BNPon 01-25-2023 Natriuretic peptide B (Bld) [Mass/Vol] 20132.0 pg/mL Critically high <=900.0 [facility] Comment on above: Performed By: #### B TYPING SECRETARY, CMP #### [facility] [address] [place] [address] Dr. Allen Smith CARDIAC LI 3-6on 3 CK [Catalytic activity/Vol] 346 U/L Critically high 26-192 [facility] Comment on above: Performed By: #### T SH #### [facility] [address] [place] [address] Dr. Allen Smith CK.MB [Mass/Vol] 15.70 ng/mL Critically high <=3.60 Th [facility] Comment on above: Performed By: #### T SH #### [facility] [address] [place] [address] Dr. Allen Smith HSTROP 1206.7 pg/mL Critically high 4.0-51.3 [facility] Comment on above: Result Comment: CUT- OFF POINTS HAVE BEEN ESTABLISHED BASED ON THE FOURTH UNIVERSAL DEFINITIONS OF MYOCARDIAL INFARCTION. THE UPPER REFERENCE LIMIT (URL) OF TROPONIN, DEFINED THE 99TH PERCENTILE OF cTnI DISTRIBUTION IN A REFERENCE POPULATION, HAS BEEN CONFIRMED THE DECISION THRESHOLD FOR [place] DIAGNOSIS. Performed By: #### T SH #### [facility] [address] [place] [address] Dr. Allen Smith CBC AUTO DIFFon 01-25-2023 BASO # 0.0 103/ul Normal 0.0-0.1 [facility] Comment on above: Performed By: #### T SH #### [facility] [address] [place], [place] [id number] Dr. Allen Smith Basophils/100 WBC (Bld) 0.1 % Critically low 0.2-2.0 [facility] Comment on above: Performed By: #### T SH #### [facility] [address] [place] [address] Dr. Allen Smith EO # 0.0 103/ul Normal 0.0-0.7 [facility] Comment on above: Performed By: #### T SH #### [facility] [address] [place] [address] Dr. Allen Smith Eosinophils/100 WBC (Bld) 0.0 % Critically low 0.9-7.0 [facility] Comment on above: Performed By: #### T SH #### [facility] [address] [place] [address] Dr. Allen Smith Erythrocyte distribution width (RBC) [Ratio] 13.4 % Normal 11.0-15.0 [facility] Comment on above: Performed By: #### T SH #### [facility] [address] [place] [address] Dr. Allen Smith Hematocrit (Bld) [Volume fraction] 30.2 % Critically low 36.0-48.0 [facility] Comment on above: Performed By: #### T SH #### [facility] [address] [place] [address] Dr. Allen Smith Hemoglobin (Bld) [Mass/Vol] 9.9 g/dL Critically low 12.0-16.0 [facility] Comment on above: Performed By: #### T SH #### [facility] [address] [place] [address] Dr. Allen Smith IG # 0.05 10e3/ul Critically high 0.00-0.03 [facility] Comment on above: Performed By: #### T SH #### [facility] [address] [place] [address] Dr. Allen Smith IG % 0.4 % Normal 0.0-0.5 [facility] Comment on above: Performed By: #### T SH #### [facility] [address] [place] [address] Dr. Allen Smith LYMPH # 0.3 103/ul Critically low 1.2-3.8 [facility] Comment on above: Performed By: #### T SH #### [facility] [address] [place] [address] Dr. Allen Smith Lymphocytes/100 WBC (Bld) 2.5 % Critically low 20.5-60.0 [facility] Comment on above: Performed By: #### T SH #### [facility] [address] [place] [address] Dr. Allen Smith MANUAL DIFF REQ NO Normal [facility] Comment on above: Performed By: #### T SH #### [facility] [address] [place] [address] Dr. Allen Smith MCH (RBC) [Entitic mass] 24.9 pg Critically low 26.7-34.0 [facility] Comment on above: Performed By: #### T SH #### [facility] [address] [place] [address] Dr. Allen Smith MCHC (RBC) [Mass/Vol] 32.8 g/dL Normal 29.9-35.2 [facility] Comment on above: Performed By: #### T SH #### [facility] [address] [place] [address] Dr. Allen Smith MCV (RBC) [Entitic vol] 76.1 fL Critically low 81.0-99.0 [facility] Comment on above: Performed By: #### T SH #### [facility] [address] [place] [address] Dr. Allen Smith MONO # 0.5 103/ul Normal 0.3-0.8 [facility] Comment on above: Performed By: #### T SH #### [facility] [address] [place] [address] Dr. Allen Smith Monocytes/100 WBC (Bld) 3.7 % Normal 1.7-12.0 [facility] Comment on above: Performed By: #### T SH #### [facility] [address] [place] [address] Dr. Allen Smith NEUT # 12.2 103/ul Critically high 1.4-6.5 [facility] Comment on above: Performed By: #### T SH #### [facility] [address] [place] [address] Dr. Allen Smith Neutrophils/100 WBC (Bld) 93.3 % Critically high 43.0-75.0 [facility] Comment on above: Performed By: #### T SH #### [facility] [address] [place] [address] Dr. Allen Smith Platelet mean volume (Bld) [Entitic vol] 10.3 fL Normal 9.5-13.5 [facility] Comment on above: Performed By: #### T SH #### [facility] [address] [place] [address] Dr. Allen Smith PLT 263 103/ul Normal 150-450 [facility] Comment on above: Performed By: #### T SH #### [facility] [address] [place] [address] Dr. Allen Smith RBC 3.97 106/ul Critically low 4.20-5.40 [facility] Comment on above: Performed By: #### T SH #### [facility] [address] [place] [address] Dr. Allen Smith WBC 13.0 103/ul Critically high 4.0-11.0 [facility] Comment on above: Performed By: #### T SH #### [facility] [address] [place] [address] Dr. Allen Smith BASO # 0.0 103/ul Normal 0.0-0.1 [facility] Comment on above: Performed By: #### N A #### [facility] [address] [place] [address] Dr. Allen Smith Basophils/100 WBC (Bld) 0.1 % Critically low 0.2-2.0 [facility] Comment on above: Performed By: #### N A #### [facility] [address] [place] [address] Dr. Allen Smith EO # 0.0 103/ul Normal 0.0-0.7 [facility] Comment on above: Performed By: #### N A #### [facility] [address] [place] [address] Dr. Allen Smith Eosinophils/100 WBC (Bld) 0.0 % Critically low 0.9-7.0 [facility] Comment on above: Performed By: #### N A #### [facility] [address] [place] [address] Dr. Allen Smith Erythrocyte distribution width (RBC) [Ratio] 13.4 % Normal 11.0-15.0 [facility] Comment on above: Performed By: #### N A #### [facility] [address] [place] [address] Dr. lAlen Smith Hematocrit (Bld) [Volume fraction] 29.5 % Critically low 36.0-48.0 [facility] Comment on above: Performed By: #### N A #### [facility] [address] [place] [address] Dr. Allen Smith Hemoglobin (Bld) [Mass/Vol] 9.6 g/dL Critically low 12.0-16.0 [facility] Comment on above: Performed By: #### N A #### [facility] [address] [place] [address] Dr. Allen Smith IG # 0.04 10e3/ul Critically high 0.00-0.03 [facility] Comment on above: Performed By: #### N A #### [facility] [address] [place] [address] Dr. Allen Smith IG % 0.4 % Normal 0.0-0.5 [facility] Comment on above: Performed By: #### N A #### [facility] [address] [place] [address] Dr. Allen Smith LYMPH # 0.4 103/ul Critically low 1.2-3.8 [facility] Comment on above: Performed By: #### N A #### [facility] [address] [place] [address] Dr. Allen Smith Lymphocytes/100 WBC (Bld) 3.5 % Critically low 20.5-60.0 [facility] Comment on above: Performed By: #### N A #### [facility] [address] [place] [address] Dr. Allen Smith MANUAL DIFF REQ NO Normal [facility] Comment on above: Performed By: #### N A #### [facility] [address] [place] [address] Dr. Allen Smith MCH (RBC) [Entitic mass] 24.4 pg Critically low 26.7-34.0 [facility] Comment on above: Performed By: #### N A #### [facility] [address] [place] [address] Dr. Allen Smith MCHC (RBC) [Mass/Vol] 32.5 g/dL Normal 29.9-35.2 [facility] Comment on above: Performed By: #### N A #### [facility] [address] [place] [address] Dr. Allen Smith MCV (RBC) [Entitic vol] 74.9 fL Critically low 81.0-99.0 [facility] Comment on above: Performed By: #### N A #### [facility] [address] [place] [address] Dr. Allen Smith MONO # 0.4 103/ul Normal 0.3-0.8 [facility] Comment on above: Performed By: #### N A #### [facility] [address] [place] [address] Dr. Allen Smith Monocytes/100 WBC (Bld) 3.5 % Normal 1.7-12.0 [facility] Comment on above: Performed By: #### N A #### [facility] [address] [place] [address] Dr. Allen Smith NEUT # 10.2 103/ul Critically high 1.4-6.5 [facility] Comment on above: Performed By: #### N A #### [facility] [address] [place] [address] Dr. Allen Smith Neutrophils/100 WBC (Bld) 92.5 % Critically high 43.0-75.0 [facility] Comment on above: Performed By: #### N A #### [facility] [address] [address] [address] Allen Smith Platelet mean volume (Bld) [Entitic vol] 10.9 fL Normal 9.5-13.5 [facility] Comment on above: Performed By: #### N A #### [facility] [address] [address] [address] Allen Smith PLT 279 103/ul Normal 150-450 [facility] Comment on above: Performed By: #### N A #### [facility] [address] [address] [address] Allen Smith RBC 3.94 106/ul Critically low 4.20-5.40 [facility] Comment on above: Performed By: #### N A #### [facility] [address] [address] [address] Allen Smith WBC 11.0 103/ul Normal 4.0-11.0 [facility] Comment on above: Performed By: #### N A #### [facility] [address] [place] [address] Dr. Allen Smith ECHOCARDIO M/2D COMPLETEon 0 01-25-2023 ECHOCARDIO M/2D COMPLETE Patient: PERLA IBARRA Exam Date: 01/25/2023 : 1955 Gender:F Ordering : DOMINGA GODWIN . Admission #: [id number] Family : DR FREDDY BARRAZA M.D. Order #: [id number] CLICK HERE TO VIEW EXAM ECHOCARDIOGRAM REPORT [...] Henderson M.D. on 01/25/2023 at 15:39 Normal [facility] NAon 01-25-2023 Sodium [Moles/Vol] 128 mmol/L Critically low 136-145 [facility] [place] Comment on above: Performed By: #### N A #### [facility] [address] [place] [address] Dr. Allen Smith Sodium [Moles/Vol] 122 mmol/L Critically low 136-145 [facility] [place] Comment on above: Performed By: #### T SH #### [facility] [address] [place] [address] Dr. Allen Smith Sodium [Moles/Vol] 122 mmol/L Critically low 136-145 [facility] [place] Comment on above: Performed By: #### N A #### [facility] [address] [place] [address] Dr. Allen Smith PROF 14(COMP METB)on 023 Albumin [Mass/Vol] 2.8 g/dL Critically low 3.4-5.0 [facility] [place] Comment on above: Performed By: #### B TYPING SECRETARY, CMP #### [facility] [address] [place] [address] Dr. Allen Smith Albumin/Globulin [Mass ratio] 0.5 {ratio} Normal [facility] Comment on above: Performed By: #### B TYPING SECRETARY, CMP #### [facility] [address] [place] [address] Dr. Allen Smith ALP [Catalytic activity/Vol] 69 U/L Normal 46-116 [facility] Comment on above: Performed By: #### B TYPING SECRETARY, CMP #### [facility] [address] [address] [address] Allen Smith ALT [Catalytic activity/Vol] 57 U/L Normal 14-59 [facility] Comment on above: Performed By: #### B TYPING SECRETARY, CMP #### [facility] [address] [address] [address] Allen Smith Anion gap [Moles/Vol] 16.1 mmol/L Normal Th [facility] Comment on above: Performed By: #### B TYPING SECRETARY, CMP #### [facility] [address] [address] [address] Allen Smith AST [Catalytic activity/Vol] 41 U/L Critically high 15-37 [facility] Comment on above: Performed By: #### B TYPING SECRETARY, CMP #### [facility] [address] [place] [address] Dr. Allen Smith Bilirubin [Mass/Vol] 0.2 mg/dL Normal 0.2-1.0 [facility] Comment on above: Performed By: #### B TYPING SECRETARY, CMP #### [facility] [address] [address] [address] Allen Smith Calcium [Mass/Vol] 8.7 mg/dL Normal 8.5-10.1 [facility] Comment on above: Performed By: #### B TYPING SECRETARY, CMP #### [facility] [address] [address] [address] Allen Smith Chloride [Moles/Vol] 88 mmol/L Critically low 98-107 [facility] Comment on above: Performed By: #### B TYPING SECRETARY, CMP #### [facility] [address] [address] [address] Allen Smith CO2 [Moles/Vol] 22.6 mmol/L Normal 21.0-32.0 [facility] Comment on above: Performed By: #### B TYPING SECRETARY, CMP #### [facility] [address] [address] [address] Allen Smith Creatinine [Mass/Vol] 0.83 mg/dL Normal 0.55-1.02 [facility] Comment on above: Performed By: #### B TYPING SECRETARY, CMP #### [facility] [address] [address] [address] Allen Smith EGFR-AF IRANIAN >60 Normal >=60 [facility] Comment on above: Performed By: #### B TYPING SECRETARY, CMP #### [facility] [address] [address] [address] Allen Smith EGFR-NON AF IRANIAN >60 Normal >=60 [facility] Comment on above: Performed By: #### B TYPING SECRETARY, CMP #### [facility] [address] [address] [address] Allen Smith Globulin (S) [Mass/Vol] 5.2 g/dL Normal [facility] Comment on above: Performed By: #### B TYPING SECRETARY, CMP #### [facility] [address] [place] [address] Dr. Allen Smith Glucose [Mass/Vol] 120 mg/dL Critically high 74-106 [facility] Comment on above: Performed By: #### B TYPING SECRETARY, CMP #### [facility] [address] [place] [address] Dr. Allen Smith Potassium [Moles/Vol] 3.7 mmol/L Normal 3.5-5.1 [facility] Comment on above: Performed By: #### B TYPING SECRETARY, CMP #### [facility] [address] [place] [address] Dr. Allen Smith Protein [Mass/Vol] 8.0 g/dL Normal 6.4-8.2 [facility] Comment on above: Performed By: #### B TYPING SECRETARY, CMP #### [facility] [address] [address] [address] Allen Smith Sodium [Moles/Vol] 122 mmol/L Critically low 136-145 [facility] Comment on above: Performed By: #### B TYPING SECRETARY, CMP #### [facility] [address] [place] [address] Dr. Allen Smith Urea nitrogen [Mass/Vol] 13.0 mg/dL Normal 7.0-18.0 [facility] Comment on above: Performed By: #### B TYPING SECRETARY, CMP #### [facility] [address] [address] [address] Allen Smith Urea nitrogen/Creatinine [Mass ratio] 15.7 mg/mg Normal [facility] Comment on above: Performed By: #### B TYPING SECRETARY, CMP #### [facility] [address] [address] [address] Allen Smith PROF CHEM 8 (BAS METB)on Anion gap [Moles/Vol] 13.3 mmol/L Normal [facility] Comment on above: Performed By: #### B MP #### [facility] [address] [address] [address] Allen Smith Calcium [Mass/Vol] 7.1 mg/dL Critically low 8.5-10.1 [facility] Comment on above: Performed By: #### B MP #### [facility] [address] [place] [address] Dr. Allen Smith Chloride [Moles/Vol] 97 mmol/L Critically low 98-107 [facility] Comment on above: Performed By: #### B MP #### [facility] [address] [place] [address] Dr. Allen Smith CO2 [Moles/Vol] 21.8 mmol/L Normal 21.0-32.0 [facility] Comment on above: Performed By: #### B MP #### [facility] [address] [place] [address] Dr. Allen Smith Creatinine [Mass/Vol] 0.84 mg/dL Normal 0.55-1.02 [facility] Comment on above: Performed By: #### B MP #### [facility] [address] [place] [address] Dr. Allen Smith EGFR-AF IRANIAN >60 Normal >=60 [facility] Comment on above: Performed By: #### B MP #### [facility] [address] [place] [address] Dr. Allen Smith EGFR-NON AF IRANIAN >60 Normal >=60 [facility] Comment on above: Performed By: #### B MP #### [facility] [address] [address] [address] Allen Smith Glucose [Mass/Vol] 128 mg/dL Critically high 74-106 [facility] Comment on above: Performed By: #### B MP #### [facility] [address] [address] [address] Allen Smith Potassium [Moles/Vol] 3.1 mmol/L Critically low 3.5-5.1 [facility] Comment on above: Performed By: #### B MP #### [facility] [address] [address] [address] Allen Smith Sodium [Moles/Vol] 129 mmol/L Critically low 136-145 [facility] [place] Comment on above: Performed By: #### B MP #### [facility] [address] [place] [address] Dr. Allen Smith Urea nitrogen [Mass/Vol] 17.0 mg/dL Normal 7.0-18.0 [facility] Comment on above: Performed By: #### B MP #### [facility] [address] [address] [address] Allen Smith Urea nitrogen/Creatinine [Mass ratio] 20.2 mg/mg Normal [facility] Comment on above: Performed By: #### B MP #### [facility] [address] [place] [address] Dr. Allen Smith PROTIMEon 01-25-2023 INR Coag (PPP) [Relative time] 0.98 {INR} Normal [facility] Comment on above: Performed By: #### B TYPING SECRETARY, CMP #### [facility] [address] [place] [address] Dr. Allen Smith INR GUIDELINES SEE BELOW Normal [facility] Comment on above: Result Comment: VU RED INR: 2.0 - 3.0 CONDITIONS NOT LISTED BELOW 2.5 - 3.5 FOR PROSTHETIC HEART VALVE REPLACEMENT 2.5 - 3.5 RECURRENT THROMBOSIS Performed By: #### B TYPING SECRETARY, CMP #### [facility] [address] [place] [address] Dr. Allen Smith PT Coag (PPP) [Time] 10.4 s Normal 9.0-11.6 [facility] Comment on above: Performed By: #### B TYPING SECRETARY, CMP #### [facility] [address] [place] [address] Dr. Allen Smith PTTon 01-25-2023 aPTT Coag (Bld) [Time] 29.8 s Normal 22.3-36.2 Th [facility] Comment on above: Performed By: #### B TYPING SECRETARY, CMP #### [facility] [address] [address] [address] Allen Smith PTT HEPARIN MONITORon 2022 aPTT Coag (Bld) [Time] 24.5 s Critically low 39.5-54.2 [facility] Comment on above: Performed By: #### T SH #### [facility] [address] [place] [address] Dr. Allen Smith TRIGLYCERIDEon 01-25-2023 Triglyceride [Mass/Vol] 55 mg/dL Normal <=150 [facility] Comment on above: Performed By: #### T SH #### [facility] [address] [place] [address] Dr. Allen Smith XR CHEST 1 Von 01-25-2023 XR CHEST 1 V EXAM: XR CHEST 1 V HISTORY: SHORTNESS OF BREATH COMPARISON: Chest radiograph 01/25/2023. TECHNIQUE: AP upright portable view of chest FINDINGS: Stable endotracheal tube position. Enteric tube has been advanced with distal tip not included in the [id number] but at least terminates in the mid to low gastric body. Radiolucent sideport is at the gastric antrum. Similar pulmonary vascular congestion. No sizable pleural effusion or pneumothorax. Normal cardiomediastinal sella. No acute osseous or soft tissue abnormalities. IMPRESSION: 1. Enteric tube has been advanced with distal tip not included in the [id number] but at least terminates in the mid to low gastric body. Radiolucent sideport is at the gastric antrum. 2. Stable endotracheal tube position. 3. Pulmonary vascular congestion. Electronically authenticated by: BASHIR ZAYAS Date: 2023-01-25 18:35 Normal [facility] XR CHEST 1 V EXAM: XR [...] by: Ava HERNDON Date: 2023-01-25 17:25 Normal [facility] BLOOD GASES BTYon 01-24-2023 02 MODE NASAL CANNULA Normal [facility] Comment on above: Performed By: #### A BG #### [facility] [address] [place] [address] Dr. Allen Smith ALLENS TEST Positive Normal [facility] Comment on above: Performed By: #### A BG #### [facility] [address] [place] [address] Dr. Allen Smith Base excess Calc (Bld) [Moles/Vol] -4.1000 mmol/L Critically low -2.0-2.0 [facility] Comment on above: Performed By: #### A BG #### [facility] [address] [place] [address] Dr. Allen Smith BIPAP PRESSURE Normal [facility] Comment on above: Performed By: #### A BG #### [facility] [address] [place] [address] Dr. Allen Smith CPAP Normal [facility] Comment on above: Performed By: #### A BG #### [facility] [address] [address] [address] Allen Smith FIO2 Normal [facility] Comment on above: Performed By: #### A BG #### [facility] [address] [place] [address] Dr. Allen Smith HCO3 (Bld) [Moles/Vol] 21.6 mmol/L Critically low 22.0-26. 0 [facility] [facility] Comment on above: Performed By: #### A BG #### [facility] [address] [place] [address] Dr. Allen Smith LPM 3 Normal [facility] Comment on above: Performed By: #### A BG #### [facility] [address] [place] [address] Dr. Allen Smith MINUTE VOLUME Normal [facility] Comment on above: Performed By: #### A BG #### [facility] [address] [place] [address] Dr. Allen Smith Oxygen (Bld) [Partial pressure] 112.0 mm[Hg] Critically high 80.0-100.0 [facility] Comment on above: Performed By: #### A BG #### [facility] [address] [place] [address] Dr. Allen Smith Oxygen saturation in Blood 98.5 % Normal 95.0-100.0 [facility] Comment on above: Performed By: #### A BG #### [facility] [address] [place] [address] Dr. Allen Smith PCO2 39.6 mmHg Normal 35.0-45.0 [facility] Comment on above: Performed By: #### A BG #### [facility] [address] [place] [address] Dr. Allen Smith PEEP [facility] Comment on above: Performed By: #### A BG #### [facility] [address] [place] [address] Dr. Allen Smith pH (Bld) 7.345 [pH] Critically low 7.350-7.45 0 [facility] Comment on above: Performed By: #### A BG #### [facility] [address] [place] [address] Dr. Allen Smith [facility] Comment on above: Performed By: #### A BG #### [facility] [address] [place] [address] Dr. Allen Smith PS [facility] Comment on above: Performed By: #### A BG #### [facility] [address] [place] [address] Dr. Allen Smith PUNCTURE SITE LR [facility] Comment on above: Performed By: #### A BG #### [facility] [address] [place] [address] Dr. Allen Smith RATE [facility] Comment on above: Performed By: #### A BG #### [facility] [address] [place] [address] Dr. Allen Smith VENT MODE [facility] Comment on above: Performed By: #### A BG #### [facility] [address] [place] [address] Dr. Allen Smith [place] [facility] Comment on above: Performed By: #### A BG #### [facility] [address] [place] [address] Dr. Allen Smith BNPon 01-24-2023 Natriuretic peptide B (Bld) [Mass/Vol] 36921.0 pg/mL Critically high <=900.0 [facility] Comment on above: Performed By: #### N A #### [facility] [address] [place] [address] Dr. Allen Smith CARDIAC LI 3-6on 3 CK [Catalytic activity/Vol] 319 U/L Critically high 26-192 [facility] Comment on above: Performed By: #### B TYPING SECRETARY, CMP #### [facility] [address] [place] [address] Dr. Allen Smith CK.MB [Mass/Vol] 16.41 ng/mL Critically high <=3.60 [facility] [place] Comment on above: Performed By: #### B TYPING SECRETARY, CMP #### [facility] [address] [place] [address] Dr. Allen Smith HSTROP 1248.2 pg/mL Critically high 4.0-51.3 [facility] Comment on above: Result Comment: CUT- OFF POINTS HAVE BEEN ESTABLISHED BASED ON THE FOURTH UNIVERSAL DEFINITIONS OF MYOCARDIAL INFARCTION. THE UPPER REFERENCE LIMIT (URL) OF TROPONIN, DEFINED THE 99TH PERCENTILE OF cTnI DISTRIBUTION IN A REFERENCE POPULATION, HAS BEEN CONFIRMED THE DECISION THRESHOLD FOR [place] DIAGNOSIS. Performed By: #### B TYPING SECRETARY, CMP #### [facility] [address] [place] [address] Dr. Allen Smith CARDIAC LI ADMITon 023 CK [Catalytic activity/Vol] 238 U/L Critically high 26-192 [facility] Comment on above: Performed By: #### C MADM #### [facility] [address] [place] [address] Dr. Allen Smith CK.MB [Mass/Vol] 12.74 ng/mL Critically high <=3.60 [facility] [place] Comment on above: Performed By: #### C MADM #### [facility] [address] [place] [address] Dr. Allen Smith HSTROP 1545.9 pg/mL Critically high 4.0-51.3 [facility] Comment on above: Result Comment: CUT- OFF POINTS HAVE BEEN ESTABLISHED BASED ON THE FOURTH UNIVERSAL DEFINITIONS OF MYOCARDIAL INFARCTION. THE UPPER REFERENCE LIMIT (URL) OF TROPONIN, DEFINED THE 99TH PERCENTILE OF cTnI DISTRIBUTION IN A REFERENCE POPULATION, HAS BEEN CONFIRMED THE DECISION THRESHOLD FOR [place] DIAGNOSIS. Performed By: #### C MADM #### [facility] [address] [place] [address] Dr. Allen Smith BRYAN 244 ng/mL Critically high 9-82 [facility] Comment on above: Performed By: #### C MADM #### [facility] [address] [place] [address] Dr. Allen Smith CBC AUTO DIFFon 01-24-2023 BASO # 0.0 103/ul Normal 0.0-0.1 [facility] Comment on above: Performed By: #### C BC #### [facility] [address] [place] [address] Dr. Allen Smith Basophils/100 WBC (Bld) 0.2 % Normal 0.2-2.0 [facility] Comment on above: Performed By: #### C BC #### [facility] [address] [place] [address] Dr. Allen Smith EO # 0.0 103/ul Normal 0.0-0.7 [facility] Comment on above: Performed By: #### C BC #### [facility] [address] [place] [address] Dr. Allen Smith Eosinophils/100 WBC (Bld) 0.0 % Critically low 0.9-7.0 [facility] Comment on above: Performed By: #### C BC #### [facility] [address] [place] [address] Dr. Allen Smith Erythrocyte distribution width (RBC) [Ratio] 13.4 % Normal 11.0-15.0 [facility] Comment on above: Performed By: #### C BC #### [facility] [address] [place] [address] Dr. Allen Smith Hematocrit (Bld) [Volume fraction] 33.0 % Critically low 36.0-48.0 [facility] Comment on above: Performed By: #### C BC #### [facility] [address] [place] [address] Dr. Allen Smith Hemoglobin (Bld) [Mass/Vol] 10.6 g/dL Critically low 12.0-16.0 [facility] Comment on above: Performed By: #### C BC #### [facility] [address] [place] [address] Dr. Allen Smith IG # 0.11 10e3/ul Critically high 0.00-0.03 [facility] Comment on above: Performed By: #### C BC #### [facility] [address] [place] [address] Dr. Allen Smith IG % 0.9 % Critically high 0.0-0.5 [facility] Comment on above: Performed By: #### C BC #### [facility] [address] [place] [address] Dr. Allen Smith LYMPH # 0.5 103/ul Critically low 1.2-3.8 [facility] Comment on above: Performed By: #### C BC #### [facility] [address] [place] [address] Dr. Allen Smith Lymphocytes/100 WBC (Bld) 4.2 % Critically low 20.5-60.0 [facility] Comment on above: Performed By: #### C BC #### [facility] [address] [place] [address] Dr. Allen Smith MANUAL DIFF REQ NO Normal [facility] Comment on above: Performed By: #### C BC #### [facility] [address] [place] [address] Dr. Allen Smith MCH (RBC) [Entitic mass] 24.5 pg Critically low 26.7-34.0 [facility] Comment on above: Performed By: #### C BC #### [facility] [address] [place] [address] Dr. Allen Smith MCHC (RBC) [Mass/Vol] 32.1 g/dL Normal 29.9-35.2 [facility] Comment on above: Performed By: #### C BC #### [facility] [address] [place] [address] Dr. Allen Smith MCV (RBC) [Entitic vol] 76.2 fL Critically low 81.0-99.0 [facility] Comment on above: Performed By: #### C BC #### [facility] [address] [place] [address] Dr. Allen Smith MONO # 0.7 103/ul Normal 0.3-0.8 [facility] Comment on above: Performed By: #### C BC #### [facility] [address] [place] [address] Dr. Allen Smith Monocytes/100 WBC (Bld) 5.1 % Normal 1.7-12.0 [facility] Comment on above: Performed By: #### C BC #### [facility] [address] [place] [address] Dr. Allen Smith NEUT # 11.3 103/ul Critically high 1.4-6.5 [facility] Comment on above: Performed By: #### C BC #### [facility] [address] [place] [address] Dr. Allen Smith Neutrophils/100 WBC (Bld) 89.6 % Critically high 43.0-75.0 [facility] Comment on above: Performed By: #### C BC #### [facility] [address] [address] [address] Allen Smith Platelet mean volume (Bld) [Entitic vol] 10.0 fL Normal 9.5-13.5 [facility] Comment on above: Performed By: #### C BC #### [facility] [address] [place] [address] Dr. Allen Smith PLT 316 103/ul Normal 150-450 [facility] Comment on above: Performed By: #### C BC #### [facility] [address] [address] [address] Allen Smith RBC 4.33 106/ul Normal 4.20-5.40 [facility] Comment on above: Performed By: #### C BC #### [facility] [address] [place] [address] Dr. Allen Smith WBC 12.6 103/ul Critically high 4.0-11.0 [facility] Comment on above: Performed By: #### C BC #### [facility] [address] [place] [address] NECK ST W [...] BARRAZA Date: 2023-01-24 14:13 Normal [facility] CULTURE BLOODon 01-24-2023 Microscopic examination of blood, culture Culture Observations: NO GROWTH AT 5 DAYS. Normal [facility] Comment on above: Performed By: #### B TYPING SECRETARY, CMP #### [facility] [address] [place] [address] Dr. Allen Smith Microscopic examination of blood, culture Culture Observations: NO GROWTH AT 5 DAYS. Normal [facility] Comment on above: Performed By: #### B TYPING SECRETARY, CMP #### [facility] [address] [place] [address] Dr. Allen Smith GROUP A STREP CULTUREon 01-01 S. pyogenes Ag Ql (Unsp spec) Culture Observations: NEGATIVE FOR GROUP A STREPTOCOCCUS. [facility] Comment on above: Performed By: #### N A #### [facility] [address] [place] [address] Dr. Allen Smith LACTATE/LACTIC ACIDon 2022 Lactate [Moles/Vol] 3.1 mmol/L Critically high 0.4-2.0 [facility] Comment on above: Performed By: #### A BG #### [facility] [address] [place] [address] Dr. Allen Smith Lactate [Moles/Vol] 3.6 mmol/L Critically high 0.4-2.0 [facility] Comment on above: Performed By: #### T SH #### [facility] [address] [place] [address] Dr. Allen Smith NAon 01-24-2023 Sodium [Moles/Vol] 122 mmol/L Critically low 136-145 [facility] Comment on above: Performed By: #### N A #### [facility] [address] [place] [address] Dr. Allen Smith PROF 14(COMP METB)on 023 Albumin [Mass/Vol] 3.0 g/dL Critically low 3.4-5.0 [facility] Comment on above: Performed By: #### N A #### [facility] [address] [place] [address] Dr. Allen Smith Albumin/Globulin [Mass ratio] 0.5 {ratio} Normal [facility] Comment on above: Performed By: #### N A #### [facility] [address] [address] [address] Allen Smith ALP [Catalytic activity/Vol] 88 U/L Normal 46-116 [facility] Comment on above: Performed By: #### N A #### [facility] [address] [place] [address] Dr. Allen Smith ALT [Catalytic activity/Vol] 65 U/L Critically high 14-59 [facility] Comment on above: Performed By: #### N A #### [facility] [address] [place] [address] Dr. Allen Smith Anion gap [Moles/Vol] 17.8 mmol/L Normal [facility] Comment on above: Performed By: #### N A #### [facility] [address] [place] [address] Dr. Allen Smith AST [Catalytic activity/Vol] 28 U/L Normal 15-37 [facility] Comment on above: Performed By: #### N A #### [facility] [address] [place] [address] Dr. Allen Smith Bilirubin [Mass/Vol] 0.3 mg/dL Normal 0.2-1.0 [facility] Comment on above: Performed By: #### N A #### [facility] [address] [place] [address] Dr. Allen Smith Calcium [Mass/Vol] 9.5 mg/dL Normal 8.5-10.1 [facility] Comment on above: Performed By: #### N A #### [facility] [address] [place] [address] Dr. Allen Smith Chloride [Moles/Vol] 87 mmol/L Critically low 98-107 [facility] Comment on above: Performed By: #### N A #### [facility] [address] [address] [address] Allen Smith CO2 [Moles/Vol] 22.5 mmol/L Normal 21.0-32.0 [facility] Comment on above: Performed By: #### N A #### [facility] [address] [address] [address] Allen Smith Creatinine [Mass/Vol] 1.07 mg/dL Critically high 0.55-1.02 [facility] Comment on above: Performed By: #### N A #### [facility] [address] [address] [address] Allen Smith EGFR-AF IRANIAN >60 Normal >=60 [facility] Comment on above: Performed By: #### N A #### [facility] [address] [place] [address] Dr. Allen Smith EGFR-NON AF IRANIAN 51 mL/min/1.73m2 Critically low >=60 [facility] Comment on above: Performed By: #### N A #### [facility] [address] [place] [address] Dr. Allen Smith Globulin (S) [Mass/Vol] 6.2 g/dL Normal [facility] Comment on above: Performed By: #### N A #### [facility] [address] [place] [address] Dr. Allen Smith Glucose [Mass/Vol] 182 mg/dL Critically high 74-106 [facility] Comment on above: Performed By: #### N A #### [facility] [address] [place] [address] Dr. Allen Smith Potassium [Moles/Vol] 4.3 mmol/L Normal 3.5-5.1 [facility] Comment on above: Performed By: #### N A #### [facility] [address] [place] [address] Dr. Allen Smith Protein [Mass/Vol] 9.2 g/dL Critically high 6.4-8.2 [facility] Comment on above: Performed By: #### N A #### [facility] [address] [place] [address] Dr. Allen Smith Sodium [Moles/Vol] 123 mmol/L Critically low 136-145 [facility] [place] Comment on above: Performed By: #### N A #### [facility] [address] [place] [address] Dr. Allen Smith Urea nitrogen [Mass/Vol] 12.0 mg/dL Normal 7.0-18.0 [facility] Comment on above: Performed By: #### N A #### [facility] [address] [place] [address] Dr. Allen Smith Urea nitrogen/Creatinine [Mass ratio] 11.2 mg/mg Normal [facility] Comment on above: Performed By: #### N A #### [facility] [address] [place] [address] Dr. Allen Smith PROTIMEon 01-24-2023 INR Coag (PPP) [Relative time] 0.98 {INR} Normal [facility] Comment on above: Performed By: #### T SH #### [facility] [address] [place] [address] Dr. Allen Smith INR GUIDELINES SEE BELOW Normal [facility] Comment on above: Result Comment: VU RED INR: 2.0 - 3.0 CONDITIONS NOT LISTED BELOW 2.5 - 3.5 FOR PROSTHETIC HEART VALVE REPLACEMENT 2.5 - 3.5 RECURRENT THROMBOSIS Performed By: #### T SH #### [facility] [address] [place] [address] Dr. Allen Smith PT Coag (PPP) [Time] 10.4 s Normal 9.0-11.6 [facility] Comment on above: Performed By: #### T SH #### [facility] [address] [place] [address] Dr. Allen Smith PTTon 01-24-2023 aPTT Coag (Bld) [Time] 29.5 s Normal 22.3-36.2 [facility] [place] Comment on above: Performed By: #### T SH #### [facility] [address] [place] [address] Dr. Allen Smith RESPIRATORY PANEL PLUSon Adenovirus Not detected Normal NOT DETECTED [facility] Comment on above: Performed By: #### N A #### [facility] [address] [place] [address] Dr. Allen Thayer Parapertusis Not detected Normal NOT DETECTED [facility] Comment on above: Performed By: #### N A #### [facility] [address] [place] [address] Dr. Allen Thayer Pertussis Not detected Normal NOT DETECTED [facility] Comment on above: Performed By: #### N A #### [facility] [address] [place] [address] Dr. Allen Smith Chlamydia Pneumoniae Not detected Normal NOT DETECTED [facility] Comment on above: Performed By: #### N A #### [facility] [address] [place] [address] Dr. Allen Smith Coronavirus 229E Not detected Normal NOT DETECTED [facility] Comment on above: Performed By: #### N A #### [facility] [address] [place] [address] Dr. Allen Smith Coronavirus HKU1 Not detected Normal NOT DETECTED [facility] Comment on above: Performed By: #### N A #### [facility] [address] [place] [address] Dr. Allen Smith Coronavirus NL63 Not detected Normal NOT DETECTED [facility] Comment on above: Performed By: #### N A #### [facility] [address] [place] [address] Dr. Allen Smith Coronavirus OC43 Not detected Normal NOT DETECTED [facility] Comment on above: Performed By: #### N A #### [facility] [address] [place] [address] Dr. Allen Smith Influenza A H1 Not detected Normal NOT DETECTED [facility] Comment on above: Performed By: #### N A #### [facility] [address] [place] [address] Dr. Allen Smith Influenza A H1 2009 Not detected Normal NOT DETECTED [facility] Comment on above: Performed By: #### N A #### [facility] [address] [place] [address] Dr. Allen Smith Influenza A H3 Not detected Normal NOT DETECTED [facility] Comment on above: Performed By: #### N A #### [facility] [address] [place] [address] Dr. Allen Smith Influenza B Not detected Normal NOT DETECTED [facility] Comment on above: Performed By: #### N A #### [facility] [address] [place] [address] Dr. Allen Smith Metapneumovirus Not detected Normal NOT DETECTED [facility] Comment on above: Performed By: #### N A #### [facility] [address] [place] [address] Dr. Allen Smith Mycoplas. Pneumoniae Not detected Normal NOT DETECTED [facility] Comment on above: Performed By: #### N A #### [facility] [address] [place] [address] Dr. Allen Smith Parainfluenza 1 Not detected Normal NOT DETECTED [facility] Comment on above: Performed By: #### N A #### [facility] [address] [place] [address] Dr. Allen Smith Parainfluenza 2 Not detected Normal NOT DETECTED [facility] Comment on above: Performed By: #### N A #### [facility] [address] [place] [address] Dr. Allen Smith Parainfluenza 3 Detected Abnormal NOT DETECTED [facility] Comment on above: Performed By: #### N A #### [facility] [address] [place] [address] Dr. Allen Smith Parainfluenza 4 Not detected Normal NOT DETECTED [facility] Comment on above: Performed By: #### N A #### [facility] [address] [place] [address] Dr. Allen Smith Rhino/Enterovirus Not detected Normal NOT DETECTED [facility] Comment on above: Performed By: #### N A #### [facility] [address] [place] [address] Dr. Allen Smith RP2 Header 1 RESPIRATORY PANEL: VIRUSES Normal [facility] Comment on above: Performed By: #### N A #### [facility] [address] [place] [address] Dr. Allen Smith RP2 Header 2 RESPIRATORY PANEL: BACTERIA Normal [facility] Comment on above: Performed By: #### N A #### [facility] [address] [place] [address] Dr. Allen Smith RSV Not detected Normal NOT DETECTED [facility] Comment on above: Performed By: #### N A #### [facility] [address] [place] [address] Dr. Allen Smith SARS-CoV-2 (COVID-19) RNA BJORN+probe Ql (Unsp spec) Not detected Normal NOT DETECTED [facility] Comment on above: Performed By: #### N A #### [facility] [address] [place] [address] Dr. Allen Smith STREPT SCREENon 01-24-2023 STREP SCREEN A Negative Normal NEGATIVE [facility] Comment on above: Performed By: #### N A #### [facility] [address] [place] [address] Dr. Allen Smith TSHon 01-24-2023 TSH 0.471 uIU/mL Normal 0.358-3.74 0 [facility] Comment on above: Performed By: #### T SH #### [facility] [address] [place] [address] Dr. Allen Smith XR CHEST 1 Von [...] by: OLIVIA JAVED Date: 2023-01-24 12:53 Normal [facility] Vital Signs Date Time Vital Sign Value Performing Clinician Facility 06-24-2024 12:56-0400 Body height 165.1 cm FINANCIAL ACCOUNTANT Nedra Perez Work Phone: [facility] 06-24-2024 12:56-0400 Body mass index (BMI) [Ratio] 31.1 kg/m2 FINANCIAL ACCOUNTANT Nedra Perez Work Phone: [facility] 06-24-2024 12:56-0400 Body temperature 97.9 [degF] FINANCIAL ACCOUNTANT Nedra Perez Work Phone: [facility] 06-24-2024 12:56-0400 Body weight 84.82 kg FINANCIAL ACCOUNTANT Nedra Perez Work Phone: [facility] 06-24-2024 12:56-0400 Diastolic blood pressure 80 mm[Hg] [facility] Nedra Perez Work Phone: [facility] 06-24-2024 12:56-0400 Heart rate 61 /min [facility] Nedra Perez Work Phone: [facility] 06-24-2024 12:56-0400 Inhaled oxygen flow rate 2 L/min [facility] Nedra Perez Work Phone: [facility] 06-24-2024 12:56-0400 Respiratory rate 18 /min [facility] Nedra Perez Work Phone: [facility] 06-24-2024 12:56-0400 SaO2% (BldA) [Mass fraction] 97 % [facility] Nedra Perez Work Phone: [facility] 06-24-2024 12:56-0400 Systolic blood pressure 164 mm[Hg] [facility] Nedra Perez Work Phone: [facility] 06-04-2024 15:51-0400 Body height 165.1 cm FINANCIAL ACCOUNTANT Nedra Perez Work Phone: [facility] 06-04-2024 15:51-0400 Body mass index (BMI) [Ratio] 30.2 kg/m2 [facility] Nedra Perez Work Phone: [facility] 06-04-2024 15:51-0400 Body temperature 97.6 [degF] FINANCIAL ACCOUNTANT Nedra Perez Work Phone: [facility] 06-04-2024 15:51-0400 Body weight 82.58 kg FINANCIAL ACCOUNTANT Nedra Perez Work Phone: [facility] 06-04-2024 15:51-0400 Diastolic blood pressure 61 mm[Hg] FINANCIAL ACCOUNTANT Nedra Perez Work Phone: [facility] 06-04-2024 15:51-0400 Heart rate 62 /min FINANCIAL ACCOUNTANT Nedra Perez Work Phone: [facility] 06-04-2024 15:51-0400 Respiratory rate 18 /min FINANCIAL ACCOUNTANT Nedra Perez Work Phone: [facility] 06-04-2024 15:51-0400 SaO2% (BldA) [Mass fraction] 92 % FINANCIAL ACCOUNTANT Nedra Perez Work Phone: [facility] 06-04-2024 15:51-0400 Systolic blood pressure 108 mm[Hg] FINANCIAL ACCOUNTANT Nedra Perez Work Phone: [facility] 05-10-2024 11:45-0400 Inhaled oxygen flow rate 2 L/min FINANCIAL ACCOUNTANT Nedra Perez Work Phone: [facility] 05-10-2024 09:49-0400 Body temperature 98 [degF] FINANCIAL ACCOUNTANT Nedra Perez Work Phone: [facility] 05-10-2024 09:49-0400 Body weight 80.73 kg FINANCIAL ACCOUNTANT Nedra Perez Work Phone: [facility] 05-10-2024 09:49-0400 Diastolic blood pressure 71 mm[Hg] FINANCIAL ACCOUNTANT Nedra Sanchezs Work Phone: [facility] 05-10-2024 09:49-0400 Heart rate 65 /min FINANCIAL ACCOUNTANT Nedra Kuns Work Phone: [facility] 05-10-2024 09:49-0400 Respiratory rate 18 /min FINANCIAL ACCOUNTANT Nedra Perez Work Phone: [facility] 05-10-2024 09:49-0400 SaO2% (BldA) [Mass fraction] 99 % FINANCIAL ACCOUNTANT Nedra Perez Work Phone: [facility] 05-10-2024 09:49-0400 Systolic blood pressure 127 mm[Hg] FINANCIAL ACCOUNTANT Nedra Perez Work Phone: [facility] 03-29-2024 10:55-0400 Inhaled oxygen flow rate 2 L/min FINANCIAL ACCOUNTANT Nedra Perez Work Phone: [facility] 03-29-2024 09:50-0400 Body temperature 98.1 [degF] FINANCIAL ACCOUNTANT Nedra Perez Work Phone: [facility] 03-29-2024 09:50-0400 Body weight 76.65 kg FINANCIAL ACCOUNTANT Nedra Perez Work Phone: [facility] 03-29-2024 09:50-0400 Diastolic blood pressure 75 mm[Hg] FINANCIAL ACCOUNTANT Nedra Perez Work Phone: [facility] 03-29-2024 09:50-0400 Heart rate 65 /min FINANCIAL ACCOUNTANT Nedra Perez Work Phone: [facility] 03-29-2024 09:50-0400 Inhaled oxygen flow rate 2 L/min FINANCIAL ACCOUNTANT Nedra Perez Work Phone: [facility] 03-29-2024 09:50-0400 Respiratory rate 20 /min FINANCIAL ACCOUNTANT Nedra Perez Work Phone: [facility] 03-29-2024 09:50-0400 SaO2% (BldA) [Mass fraction] 100 % FINANCIAL ACCOUNTANT Nedra Perez Work Phone: [facility] 03-29-2024 09:50-0400 Systolic blood pressure 137 mm[Hg] FINANCIAL ACCOUNTANT Nedra Perez Work Phone: [facility] 01-18-2024 13:00-0400 Body temperature 97.6 [degF] FINANCIAL ACCOUNTANT Nedra Perez Work Phone: [facility] 01-18-2024 13:00-0400 Diastolic blood pressure 65 mm[Hg] FINANCIAL ACCOUNTANT Nedra Perez Work Phone: [facility] 01-18-2024 13:00-0400 Heart rate 62 /min FINANCIAL ACCOUNTANT Nedra Perez Work Phone: [facility] 01-18-2024 13:00-0400 Respiratory rate 18 /min FINANCIAL ACCOUNTANT Nedra Perez Work Phone: [facility] 01-18-2024 13:00-0400 SaO2% (BldA) [Mass fraction] 100 % FINANCIAL ACCOUNTANT Nedra Perez Work Phone: [facility] 01-18-2024 13:00-0400 Systolic blood pressure 122 mm[Hg] FINANCIAL ACCOUNTANT Nedra Perez Work Phone: [facility] 12-29-2023 09:56-0400 Inhaled oxygen flow rate 2 L/min FINANCIAL ACCOUNTANT Nedra Perez Work Phone: [facility] 12-29-2023 08:52-0400 Body temperature 98.2 [degF] FINANCIAL ACCOUNTANT Nedra Perez Work Phone: [facility] 12-29-2023 08:52-0400 Body weight 68.49 kg FINANCIAL ACCOUNTANT Nedra Perez Work Phone: [facility] 12-29-2023 08:52-0400 Diastolic blood pressure 68 mm[Hg] FINANCIAL ACCOUNTANT Nedra Sanchezs Work Phone: [facility] 12-29-2023 08:52-0400 Heart rate 87 /min FINANCIAL ACCOUNTANT Nedra Sanchezs Work Phone: [facility] 12-29-2023 08:52-0400 Inhaled oxygen flow rate 2 L/min FINANCIAL ACCOUNTANT Nedra Perez Work Phone: [facility] 12-29-2023 08:52-0400 Respiratory rate 18 /min FINANCIAL ACCOUNTANT Nedra Perez Work Phone: [facility] 12-29-2023 08:52-0400 SaO2% (BldA) [Mass fraction] 99 % FINANCIAL ACCOUNTANT Nedra Perez Work Phone: [facility] 12-29-2023 08:52-0400 Systolic blood pressure 124 mm[Hg] FINANCIAL ACCOUNTANT Nedra Perez Work Phone: [facility] 12-26-2023 14:57-0400 Body height 157.5 cm Nedra Perez BALLING HEAD TENDER-FINANCIAL ACCOUNTANT Work Phone: [facility] 12-26-2023 14:57-0400 Body mass index (BMI) [Ratio] 27.44 kg/m2 Nedra Perez APRN-FINANCIAL ACCOUNTANT Work Phone: [facility] 12-26-2023 14:57-0400 Body temperature 97.39 [degF] Nedra Perez BALLING HEAD TENDER-FINANCIAL ACCOUNTANT Work Phone: [facility] [employer] [facility] 12-26-2023 14:57-0400 Body weight 68.04 kg Nedra Perez APRN-FINANCIAL ACCOUNTANT Work Phone: [facility] [employer] [facility] 12-26-2023 14:57-0400 Diastolic blood pressure 56 mm[Hg] Nedra Perez APRN-FINANCIAL ACCOUNTANT Work Phone: [facility] [employer] [facility] 12-26-2023 14:57-0400 Heart rate 73 /min Nedra Perez BALLING HEAD TENDER-FINANCIAL ACCOUNTANT Work Phone: [facility] [employer] [facility] 12-26-2023 14:57-0400 Respiratory rate 20 /min Nedra Perez BALLING HEAD TENDER-FINANCIAL ACCOUNTANT Work Phone: [facility] [employer] [facility] 12-26-2023 14:57-0400 SaO2% (BldA) [Mass fraction] 99 % Nedra Perez BALLING HEAD TENDER-FINANCIAL ACCOUNTANT Work Phone: [facility] 12-26-2023 14:57-0400 Systolic blood pressure 100 mm[Hg] Nedra Perez BALLING HEAD TENDER-FINANCIAL ACCOUNTANT Work Phone: [facility] 12-07-2023 13:18-0500 Body temperature 98 [degF] FINANCIAL ACCOUNTANT Nedra Perez Work Phone: [facility] 12-07-2023 13:18-0500 Diastolic blood pressure 56 mm[Hg] FINANCIAL ACCOUNTANT Nedra Perez Work Phone: [facility] 12-07-2023 13:18-0500 Heart rate 59 /min FINANCIAL ACCOUNTANT Nedra Perez Work Phone: [facility] 12-07-2023 13:18-0500 Respiratory rate 20 /min FINANCIAL ACCOUNTANT Nedra Perez Work Phone: [facility] 12-07-2023 13:18-0500 SaO2% (BldA) [Mass fraction] 99 % FINANCIAL ACCOUNTANT Nedra Perez Work Phone: [facility] 12-07-2023 13:18-0500 Systolic blood pressure 115 mm[Hg] FINANCIAL ACCOUNTANT Nedra Perez Work Phone: [facility] 11-17-2023 10:30-0500 Body weight 62.59 kg FINANCIAL ACCOUNTANT Nedra Perez Work Phone: [facility] 11-17-2023 09:44-0500 Body temperature 98 [degF] FINANCIAL ACCOUNTANT Nedra Perez Work Phone: [facility] 11-17-2023 09:44-0500 Diastolic blood pressure 66 mm[Hg] FINANCIAL ACCOUNTANT Nedra Perez Work Phone: [facility] 11-17-2023 09:44-0500 Heart rate 72 /min FINANCIAL ACCOUNTANT Nedra Perez Work Phone: [facility] 11-17-2023 09:44-0500 Inhaled oxygen flow rate 2 L/min FINANCIAL ACCOUNTANT Nedra Perez Work Phone: [facility] 11-17-2023 09:44-0500 Respiratory rate 20 /min FINANCIAL ACCOUNTANT Nedra Perez Work Phone: [facility] 11-17-2023 09:44-0500 SaO2% (BldA) [Mass fraction] 100 % FINANCIAL ACCOUNTANT Nedra Perez Work Phone: [facility] 11-17-2023 09:44-0500 Systolic blood pressure 142 mm[Hg] FINANCIAL ACCOUNTANT Nedra Perez Work Phone: [facility] 10-26-2023 14:23-0500 Inhaled oxygen flow rate 2 L/min FINANCIAL ACCOUNTANT Nedra Perez Work Phone: [facility] 10-26-2023 13:13-0500 Body temperature 98.1 [degF] FINANCIAL ACCOUNTANT Nedra Perez Work Phone: [facility] 10-26-2023 13:13-0500 Body weight 69.85 kg FINANCIAL ACCOUNTANT Nedra Perez Work Phone: [facility] 10-26-2023 13:13-0500 Diastolic blood pressure 66 mm[Hg] FINANCIAL ACCOUNTANT Nedra Perez Work Phone: [facility] 10-26-2023 13:13-0500 Heart rate 77 /min FINANCIAL ACCOUNTANT Nedra Perez Work Phone: [facility] 10-26-2023 13:13-0500 Inhaled oxygen flow rate 2 L/min FINANCIAL ACCOUNTANT Nedra Perez Work Phone: [facility] 10-26-2023 13:13-0500 Respiratory rate 20 /min FINANCIAL ACCOUNTANT Nedra Perez Work Phone: [facility] 10-26-2023 13:13-0500 SaO2% (BldA) [Mass fraction] 97 % FINANCIAL ACCOUNTANT Nedra Perez Work Phone: [facility] 10-26-2023 13:13-0500 Systolic blood pressure 119 mm[Hg] FINANCIAL ACCOUNTANT Nedra Perez Work Phone: [facility] 10-24-2023 09:40-0500 Body temperature 97.9 [degF] FINANCIAL ACCOUNTANT Nedra Perez Work Phone: [facility] 10-24-2023 09:40-0500 Diastolic blood pressure 84 mm[Hg] FINANCIAL ACCOUNTANT Nedra Perez Work Phone: [facility] 10-24-2023 09:40-0500 Heart rate 103 /min FINANCIAL ACCOUNTANT Nedra Perez Work Phone: [facility] 10-24-2023 09:40-0500 Inhaled oxygen flow rate 2 L/min FINANCIAL ACCOUNTANT Nedra Perez Work Phone: [facility] 10-24-2023 09:40-0500 Respiratory rate 20 /min FINANCIAL ACCOUNTANT Nedra ePrez Work Phone: [facility] 10-24-2023 09:40-0500 SaO2% (BldA) [Mass fraction] 100 % FINANCIAL ACCOUNTANT Nedra Perez Work Phone: [facility] 10-24-2023 09:40-0500 Systolic blood pressure 134 mm[Hg] FINANCIAL ACCOUNTANT Nedra Perez Work Phone: [facility] 10-24-2023 06:00-0500 Body weight 70.9 kg FINANCIAL ACCOUNTANT Nedra Perez Work Phone: [facility] 10-20-2023 16:43-0500 Body height 165.1 cm FINANCIAL ACCOUNTANT Nedra Perez Work Phone: [facility] 10-05-2023 10:36-0500 Body temperature 97.9 [degF] FINANCIAL ACCOUNTANT Nedra Perez Work Phone: [facility] 10-05-2023 10:36-0500 Body weight 63.59 kg FINANCIAL ACCOUNTANT Nedra Perez Work Phone: [facility] 10-05-2023 10:36-0500 Diastolic blood pressure 53 mm[Hg] FINANCIAL ACCOUNTANT Nedra Perez Work Phone: [facility] 10-05-2023 10:36-0500 Heart rate 66 /min FINANCIAL ACCOUNTANT Nedra Perez Work Phone: [facility] 10-05-2023 10:36-0500 Inhaled oxygen flow rate 2 L/min FINANCIAL ACCOUNTANT Nedra Perez Work Phone: [facility] 10-05-2023 10:36-0500 Respiratory rate 20 /min FINANCIAL ACCOUNTANT Nedra Perez Work Phone: [facility] 10-05-2023 10:36-0500 SaO2% (BldA) [Mass fraction] 100 % FINANCIAL ACCOUNTANT Nedra Perez Work Phone: [facility] 10-05-2023 10:36-0500 Systolic blood pressure 111 mm[Hg] FINANCIAL ACCOUNTANT Nedra Perez Work Phone: [facility] 09-12-2023 12:52-0500 Body temperature 97.3 [degF] FINANCIAL ACCOUNTANT Nedra Perez Work Phone: [facility] 09-12-2023 12:52-0500 Body weight 65.31 kg FINANCIAL ACCOUNTANT Nedra Perez Work Phone: [facility] 09-12-2023 12:52-0500 Diastolic blood pressure 68 mm[Hg] FINANCIAL ACCOUNTANT Nedra Perez Work Phone: [facility] 09-12-2023 12:52-0500 Heart rate 83 /min FINANCIAL ACCOUNTANT Nedra Perez Work Phone: [facility] 09-12-2023 12:52-0500 Respiratory rate 16 /min FINANCIAL ACCOUNTANT Nedra Perez Work Phone: [facility] 09-12-2023 12:52-0500 SaO2% (BldA) [Mass fraction] 100 % FINANCIAL ACCOUNTANT Nedra Perez Work Phone: [facility] 09-12-2023 12:52-0500 Systolic blood pressure 138 mm[Hg] FINANCIAL ACCOUNTANT Nedra Peerz Work Phone: [facility] 08-28-2023 13:02-0500 Body temperature 98.3 [degF] FINANCIAL ACCOUNTANT Nedra Perez Work Phone: [facility] 08-28-2023 13:02-0500 Body weight 66.31 kg FINANCIAL ACCOUNTANT Nedra Perez Work Phone: [facility] 08-28-2023 13:02-0500 Diastolic blood pressure 69 mm[Hg] FINANCIAL ACCOUNTANT Nedra Perez Work Phone: [facility] 08-28-2023 13:02-0500 Heart rate 90 /min FINANCIAL ACCOUNTANT Nedra Perez Work Phone: [facility] 08-28-2023 13:02-0500 Inhaled oxygen flow rate 2 L/min FINANCIAL ACCOUNTANT Nedra Perez Work Phone: [facility] 08-28-2023 13:02-0500 Respiratory rate 20 /min FINANCIAL ACCOUNTANT Nedra Perez Work Phone: [facility] 08-28-2023 13:02-0500 SaO2% (BldA) [Mass fraction] 100 % FINANCIAL ACCOUNTANT Nedra Perez Work Phone: [facility] 08-28-2023 13:02-0500 Systolic blood pressure 134 mm[Hg] FINANCIAL ACCOUNTANT Nedra Perez Work Phone: [facility] 08-22-2023 14:30-0500 Diastolic blood pressure 61 mm[Hg] FINANCIAL ACCOUNTANT Nedra Perez Work Phone: [facility] 08-22-2023 14:30-0500 Heart rate 80 /min FINANCIAL ACCOUNTANT Nedra Perez Work Phone: [facility] 08-22-2023 14:30-0500 Inhaled oxygen flow rate 2 L/min FINANCIAL ACCOUNTANT Nedra Perez Work Phone: [facility] 08-22-2023 14:30-0500 Respiratory rate 20 /min FINANCIAL ACCOUNTANT Nedra Perez Work Phone: [facility] 08-22-2023 14:30-0500 SaO2% (BldA) [Mass fraction] 100 % FINANCIAL ACCOUNTANT Nedra Perez Work Phone: [facility] 08-22-2023 14:30-0500 Systolic blood pressure 103 mm[Hg] FINANCIAL ACCOUNTANT Nedra Perez Work Phone: [facility] 08-22-2023 11:55-0500 Body height 165.1 cm FINANCIAL ACCOUNTANT Nedra Perez Work Phone: [facility] 08-22-2023 11:55-0500 Body temperature 97.6 [degF] FINANCIAL ACCOUNTANT Nedra Perez Work Phone: [facility] 08-22-2023 11:55-0500 Body weight 63.5 kg FINANCIAL ACCOUNTANT Nedra Perez Work Phone: [facility] 08-11-2023 15:18-0500 Diastolic blood pressure 50 mm[Hg] FINANCIAL ACCOUNTANT Nedra Perez Work Phone: [facility] 08-11-2023 15:18-0500 Heart rate 68 /min FINANCIAL ACCOUNTANT Nedra Perez Work Phone: [facility] 08-11-2023 15:18-0500 Respiratory rate 16 /min FINANCIAL ACCOUNTANT Nedra Perez Work Phone: [facility] 08-11-2023 15:18-0500 SaO2% (BldA) [Mass fraction] 100 % FINANCIAL ACCOUNTANT Nedra Perez Work Phone: [facility] 08-11-2023 15:18-0500 Systolic blood pressure 105 mm[Hg] FINANCIAL ACCOUNTANT Nedra Perez Work Phone: [facility] 08-11-2023 14:13-0500 Inhaled oxygen flow rate 2 L/min FINANCIAL ACCOUNTANT Nedra Perez Work Phone: [facility] 08-11-2023 14:00-0500 Body temperature 98 [degF] FINANCIAL ACCOUNTANT Nedra Perez Work Phone: [facility] 07-31-2023 13:44-0400 Body temperature 97.7 [degF] FINANCIAL ACCOUNTANT Nedra Perez Work Phone: [facility] 07-31-2023 13:44-0400 Body weight 64.77 kg FINANCIAL ACCOUNTANT Nedra Perez Work Phone: [facility] 07-31-2023 13:44-0400 Diastolic blood pressure 68 mm[Hg] FINANCIAL ACCOUNTANT Nedra Perez Work Phone: [facility] 07-31-2023 13:44-0400 Heart rate 83 /min FINANCIAL ACCOUNTANT Nedra Perez Work Phone: [facility] 07-31-2023 13:44-0400 Respiratory rate 20 /min FINANCIAL ACCOUNTANT Nedra Perez Work Phone: [facility] 07-31-2023 13:44-0400 SaO2% (BldA) [Mass fraction] 98 % FINANCIAL ACCOUNTANT Nedra Perez Work Phone: [facility] 07-31-2023 13:44-0400 Systolic blood pressure 110 mm[Hg] FINANCIAL ACCOUNTANT Nedra Perez Work Phone: [facility] 06-23-2023 13:38-0400 Body temperature 97.5 [degF] FINANCIAL ACCOUNTANT Nedra Perez Work Phone: [facility] 06-23-2023 13:38-0400 Body weight 64.95 kg FINANCIAL ACCOUNTANT Nedra Perez Work Phone: [facility] 06-23-2023 13:38-0400 Diastolic blood pressure 71 mm[Hg] FINANCIAL ACCOUNTANT Nedra Perez Work Phone: [facility] 06-23-2023 13:38-0400 Heart rate 87 /min FINANCIAL ACCOUNTANT Nedra Perez Work Phone: [facility] 06-23-2023 13:38-0400 Inhaled oxygen flow rate 2 L/min FINANCIAL ACCOUNTANT Nedra Perez Work Phone: [facility] 06-23-2023 13:38-0400 Respiratory rate 20 /min FINANCIAL ACCOUNTANT Nedra Perez Work Phone: [facility] 06-23-2023 13:38-0400 SaO2% (BldA) [Mass fraction] 100 % FINANCIAL ACCOUNTANT Nedra Perez Work Phone: [facility] 06-23-2023 13:38-0400 Systolic blood pressure 124 mm[Hg] FINANCIAL ACCOUNTANT Nedra Perez Work Phone: [facility] 06-23-2023 13:21-0400 Body height 165.1 cm FINANCIAL ACCOUNTANT Nedra Perez Work Phone: [facility] Encounters Encounter Date Encounter Type Care Provider Facility Start: 10-01-2024 End: 10-01-2024 External Result Encounter Aries Chavez DO Work Phone: [facility] External Department Unsolicited Start: 10-01-2024 End: 10-01-2024 External Result Encounter Aries Chavez DO Work Phone: [facility] External Department Unsolicited Start: 10-01-2024 ambulatory Nedra Perez Facility:[facility] Start: 08-05-2024 End: 08-05-2024 Refill Sonia Rosa [facility] Comment on above: Chronic obstructive pulmonary disease with acute exacerbation ([facility]) Start: 07-19-2024 End: 07-22-2024 Refill Sonia Rosa [facility] Start: 06-24-2024 Registered Recurring FINANCIAL ACCOUNTANT Nedra Perez Work Phone: [facility] Work Phone: Start: 06-24-2024 End: 06-24-2024 ambulatory FINANCIAL ACCOUNTANT Nedra Perez Work Phone: [facility] Work Phone: Start: 06-24-2024 End: 06-24-2024 Patient encounter procedure FINANCIAL ACCOUNTANT Nedra Perez Work Phone: [facility] Work Phone: Start: 06-18-2024 End: 06-19-2024 External Result Encounter Aries Chavez DO Work Phone: [facility] External Department Unsolicited Start: 06-18-2024 End: 06-19-2024 External Result Encounter Aries Chavez DO Work Phone: [facility] External Department Unsolicited Start: 06-04-2024 End: 06-04-2024 ambulatory FINANCIAL ACCOUNTANT Nedra Perez Work Phone: [facility] Work Phone: Start: 06-04-2024 End: 06-04-2024 Patient encounter procedure FINANCIAL ACCOUNTANT Nedra Preez Work Phone: [facility] Work Phone: Start: 05-10-2024 Registered Recurring FINANCIAL ACCOUNTANT Nedra Perez Work Phone: [facility] Work Phone: Start: 05-10-2024 End: 05-10-2024 ambulatory FINANCIAL ACCOUNTANT Nedra Perez Work Phone: [facility] Work Phone: Start: 05-10-2024 End: 05-10-2024 Patient encounter procedure FINANCIAL ACCOUNTANT Nedra Perez Work Phone: [facility] Work Phone: Start: 04-23-2024 End: 04-23-[address] [facility] Start: 03-29-2024 Registered Recurring FINANCIAL ACCOUNTANT Nedra Perez [facility] Work [facility]: Start: 03-29-2024 End: 03-29-2024 ambulatory FINANCIAL ACCOUNTANT Nedra Perez Work Phone: [facility] Work Phone: Start: 03-29-2024 End: 03-29-2024 Patient encounter procedure FINANCIAL ACCOUNTANT Nedra Perez Work Phone: [facility] Work Phone: Start: 01-30-2024 End: 01-30-2024 ambulatory [facility] Start: 12-29-2023 Registered Recurring FINANCIAL ACCOUNTANT Nedra Perez Work Phone: [facility] Work Phone: Start: 12-29-2023 End: 12-29-2023 ambulatory FINANCIAL ACCOUNTANT Nedra Perez Work Phone: [facility] Work Phone: Start: 12-29-2023 End: 12-29-2023 Patient encounter procedure FINANCIAL ACCOUNTANT Nedra Perez Work Phone: [facility] Work Phone: Start: 12-26-2023 End: 12-26-2023 ambulatory [facility] Start: 12-26-2023 End: 12-26-2023 Office outpatient visit 15 minutes Nedra Perez BALLING HEAD TENDER-FINANCIAL ACCOUNTANT Work Phone: [facility] Internal [facility] - Family [facility] Comment on above: Acute recurrent fron elena sinusitis (Primary Dx); Nausea and vomiting, unspecified vomiting type Start: 11-17-2023 Registered Recurring FINANCIAL ACCOUNTANT Nedra Perez Work Phone: [facility] Work Phone: Start: 11-17-2023 End: 11-17-2023 ambulatory FINANCIAL ACCOUNTANT Nedra Perez Work Phone: [facility] Work Phone: Start: 11-17-2023 End: 11-17-2023 Patient encounter procedure FINANCIAL ACCOUNTANT Nedra Perez Work Phone: [facility] Work Phone: Start: 11-15-2023 External Result Encounter Aries Chavez DO Work Phone: [facility] External Department Unsolicited Start: 11-15-2023 External Result Encounter Aries Chavez DO Work Phone: [facility] External Department Unsolicited Start: 10-26-2023 Registered Recurring FINANCIAL ACCOUNTANT Nedra Perez [facility] Work [facility]: Start: 10-26-2023 End: 10-26-2023 ambulatory FINANCIAL ACCOUNTANT Nedra Perez Work Phone: [facility] Work Phone: Start: 10-26-2023 End: 10-26-2023 Patient encounter procedure FINANCIAL ACCOUNTANT Nedra Perez Work Phone: [facility] Work Phone: Start: 10-20-2023 Non-patient / Non-visit FINANCIAL ACCOUNTANT Fidelina Perez Work Phone: [facility] Work Phone: Start: 10-19-2023 Non-patient / Non-visit FINANCIAL ACCOUNTANT Fidelina Perez Work Phone: [facility] Work Phone: Start: 10-12-2023 End: 10-12-[address] [facility] Start: 10-05-2023 End: 10-05-2023 ambulatory FINANCIAL ACCOUNTANT Nedra Perez Work Phone: [facility] Work Phone: Start: 10-05-2023 End: 10-05-2023 Registered Recurring FINANCIAL ACCOUNTANT Nedra Perez [facility]: Start: 10-05-2023 End: 10-05-2023 ambulatory FINANCIAL ACCOUNTANT Nedra Perez Work Phone: [facility] Work Phone: Start: 10-05-2023 End: 10-05-2023 Registered Recurring FINANCIAL ACCOUNTANT Nedra Perez Work Phone: [facility] Work Phone: Start: 09-12-2023 End: 09-12-2023 ambulatory FINANCIAL ACCOUNTANT Nedra Perez Work Phone: [facility] Work Phone: Start: 09-12-2023 End: 09-12-2023 Registered Recurring FINANCIAL ACCOUNTANT Nedra Perez Work Phone: [facility] Work Phone: Start: 08-28-2023 End: 08-28-2023 ambulatory FINANCIAL ACCOUNTANT Nedra Perez Work Phone: [facility] Work Phone: Start: 08-28-2023 End: 08-28-2023 Registered Recurring FINANCIAL ACCOUNTANT Nedra Perez Work Phone: [facility] Work Phone: Start: 08-22-2023 End: 08-22-2023 Admission to same day surgery center FINANCIAL ACCOUNTANT Nedra Perez Work Phone: [facility] [place] Work Phone: Start: 08-22-2023 End: 08-22-2023 ambulatory FINANCIAL ACCOUNTANT Nedra Perez Work Phone: [facility] Work Phone: Start: 08-11-2023 Registered Recurring FINANCIAL ACCOUNTANT Nedra Perez Work Phone: [facility] Work Phone: Start: 07-31-2023 End: 07-31-2023 ambulatory FINANCIAL ACCOUNTANT Nedra R Kuns Work Phone: [facility] Work Phone: Start: 07-31-2023 End: 07-31-2023 Registered Recurring FINANCIAL ACCOUNTANT Nedra Perez Work Phone: [facility] Work Phone: Start: 07-26-2023 End: 07-26-2023 ambulatory [facility] Start: 06-23-2023 End: 06-23-2023 ambulatory FINANCIAL ACCOUNTANT Nedra Perez Work Phone: [facility] Work Phone: Start: 06-23-2023 End: 06-23-2023 Registered Recurring FINANCIAL ACCOUNTANT Nedra Perez Work Phone: [facility] Work Phone: Start: 04-27-2023 ambulatory [place] Facility:[facility] Start: 02-28-2023 End: 03-01-[address] DOCTOR MÁRQUEZ Facility:[facility] Start: 02-09-2023 ambulatory [place] Facility:[facility] Start: 02-07-2023 End: 02-08-[address] DOCTOR MÁRQUEZ Facility:[facility] Start: 01-24-2023 End: 01-25-2023 Evaluation and management of inpatient DR FREDDY BARRAZA Facility:[facility] Procedures Date Procedure Procedure Detail Performing Clinician Start: 10-01-2024 Complete blood count with white cell differential, automated Aries Chavez DO Work Phone: Start: 06-18-[address] Aries Chavez DO Work Phone: Start: 06-18-2024 Complete blood count with white cell differential, automated Aries Chavez DO Work Phone: Start: 06-04-2024 COVID Antigen (POC) FINANCIAL ACCOUNTANT Nedra Perez Work Phone: Start: 03-14-2024 Computed tomography of abdomen and pelvis with contrast FINANCIAL ACCOUNTANT Nedra Perez Work Phone: Start: 03-14-2024 CT of thorax with contrast FINANCIAL ACCOUNTANT Nedra Perez Work Phone: Start: 01-30-2024 Adult depression screening assessment Sonia Rosa SURGICAL SCRUB TECH Start: 12-26-2023 Adult depression screening assessment Nedra Perez BALLING HEAD TENDER-FINANCIAL ACCOUNTANT Work Phone: Start: 11-15-2023 Complete blood count with white cell differential, automated Aries Thomas Chavez DO Work Phone: Start: 10-31-2023 Duplex scan of lower limb veins FINANCIAL ACCOUNTANT Nedra Perez Work Phone: Start: 09-12-2023 Urine culture FINANCIAL ACCOUNTANT Nedra Perez Work Phone: Start: 08-22-2023 Ultrasonic guidance for needle biopsy FINANCIAL ACCOUNTANT Nedra Perez Work Phone: Start: 07-31-2023 Urine culture FINANCIAL ACCOUNTANT Nedra Perez Work Phone: Start: 01-25-2023 Insertion of Infusion Device into Right Femoral Vein, Percutaneous Approach DR FREDDY BARRAZA Start: 01-25-2023 Insertion of Endotracheal Airway into Trachea, Via Natural or Artificial Opening DR FREDDY BARRAZA Plan of Treatment Date Care Activity Detail Author Start: 01-29-2025 Adult BMI Screening Adult BMI Screening [facility] Start: 01-29-2025 Depression Screening Depression Screening [facility] Start: 01-29-2025 Fall Risk Screening Fall Risk Screening [facility] Start: 01-29-2025 Tobacco Screening Tobacco Screening [facility] Start: 12-25-2024 Adult BMI Screening Adult BMI Screening [facility] Start: 12-25-2024 Depression Screening Depression Screening [facility] Start: 12-25-2024 Fall Risk Screening Fall Risk Screening [facility] Start: 12-25-2024 Tobacco Screening Tobacco Screening [facility] Start: 06-24-2024 [facility] Start: 06-22-2024 Medicare Annual Wellness Visit Medicare Annual Wellness Visit [facility] Start: 06-21-2024 [facility] Start: 06-02-2024 Influenza vaccination Influenza Vaccine [facility] Start: 05-10-2024 [facility] Start: 03-29-2024 [facility] Start: 03-29-2024 [facility] Start: 03-06-2024 [facility] Start: 01-18-2024 [facility] Start: 12-29-2023 [facility] Start: 12-28-2023 Erythropoietin (EPO) [Units/volume] in Serum or Plasma [facility] Start: 12-19-2023 [facility] Start: 12-07-2023 [facility] Start: 11-28-2023 [facility] Start: 11-17-2023 [facility] Start: 11-13-2023 [facility] Start: 10-26-2023 [facility] Start: 10-24-2023 [facility] Start: 10-24-2023 [facility] Start: 10-22-2023 Referral to palliative care physician [facility] Start: 10-20-2023 Administration of prophylactic treatment [facility] Start: 10-19-2023 Hospital admission [facility] Start: 10-19-2023 Referral to oncologist [facility] Start: 10-05-2023 [facility] Start: 10-04-2023 Adrenocorticotropic hormone measurement [facility] Start: 09-14-2023 [facility] Start: 09-14-2023 [facility] Start: 08-22-2023 [facility] Start: 08-22-2023 Ultrasonic guidance for needle biopsy [facility] Start: 08-11-2023 [facility] Start: 08-04-2023 [facility] Start: 07-31-2023 [facility] Start: 06-02-2023 Influenza vaccination Influenza Vaccine [facility] Start: 1973 Administration of varicella zoster vaccine Zoster (Shingles) Vaccine (1 of 2) [facility] Start: 1973 DTaP,Tdap and Td Vaccines (1 - Tdap) DTaP,Tdap and Td Vaccines (1 - Tdap) [facility] Start: 1972 Adult BMI Follow Up Plan Adult BMI Follow Up Plan [facility] Adrenocorticotropic hormone measurement [facility] Adrenocorticotropic hormone measurement [facility] Adrenocorticotropic hormone measurement [facility] Adrenocorticotropic hormone measurement [facility] Adrenocorticotropic hormone measurement [facility] Bacteria identified in Stool by Culture [facility] Bacterial cytolethal distending toxin cdt gene [Presence] in Unspecified specimen by BJORN with probe detection [facility] Bilirubin measurement, urine [facility] Campylobacter coli+jejuni+upsaliensis DNA [Presence] in Stool by BJORN with non-probe detection [facility] Color of Urine [facility] Comprehensive metabo lic 1999 panel - Serum or Plasma [facility] Comprehensive metabo lic 1999 panel - Serum or Plasma [facility] Comprehensive metabo lic 1999 panel - Serum or Plasma [facility] Comprehensive metabo lic 1999 panel - Serum or Plasma [facility] Comprehensive metabo lic 1999 panel - Serum or Plasma Comprehensive metabolic panel Lab STAT 11/15/2023 9:16 AM [employer] Work Phone: Comprehensive metabo lic 1999 panel - Serum or Plasma [facility] Comprehensive metabo lic 1999 panel - Serum or Plasma [facility] Comprehensive metabo lic 1999 panel - Serum or Plasma [facility] Comprehensive metabo lic 1999 panel - Serum or Plasma [facility] Comprehensive metabo lic 1999 panel - Serum or Plasma Comprehensive metabolic panel Lab Routine 06/18/2024 9:28 AM EDT [employer] Work Phone: Comprehensive metabo lic 1999 panel - Serum or Plasma Comprehensive metabolic panel Lab STAT 10/01/2024 8:10 AM EST [employer] Work Phone: Cortisol Cortisol Lab STA T 11/15/2023 9:16 AM EST [employer] CT Abdomen and Pelvi s W contrast IV [facility] CT Abdomen and Pelvi s W contrast IV [facility] CT Abdomen and Pelvi s W contrast IV [facility] CT Abdomen and Pelvi s W contrast IV [facility] CT Chest W contrast IV [facility] CT Chest W contrast IV [facility] CT Chest W contrast IV [facility] CT guided biopsy [facility] Detection of hemoglobin [facility] EKG 12 channel panel [facility] Erythropoietin (EPO) [Units/volume] in Serum or Plasma [facility] Escherichia coli enteropathogenic eae gene [Presence] in Stool by BJORN with non-probe [facility] Escherichia coli enterotoxigenic ltA+st1a+st1b genes [Presence] in Stool by BJORN with [facility] Escherichia coli O15 7 DNA [Presence] in Stool by BJORN with non-probe detection [facility] Escherichia coli Stx 1 and Stx2 toxin stx1+stx2 genes [Presence] in Stool by BJORN with non-probe detection [facility] Glucose [Mass/volume ] in Urine by Test strip [facility] Hepatic function panel [facility] Infectious agent gen otype identification [facility] Measurement of keton es in urine using dipstick [facility] Patient Education [facility] Kidney Biopsy [facility] Work Phone: Patient referral [facility] Work Phone: Plesiomonas shigello ides DNA [Presence] in Stool by BJORN with non-probe detection [facility] Protein measurement, urine F [facility] Salmonella enterica+ bongori DNA [Presence] in Stool by BJORN with non-probe detection [facility] Shigella species+EIE C invasion plasmid antigen H ipaH gene [Presence] in Stool by BJORN [facility] Urinalysis, specific gravity measurement [facility] Urine dipstick for nitrite F [facility] Urine dipstick for s pecific gravity [facility] Urine pH test [facility] Urobilinogen concent ration, test strip measurement [facility] US Lower extremity v ein - bilateral [facility] Vibrio cholerae DNA [Presence] in Stool by BJORN with non-probe detection [facility] Vibrio cholerae+parahaemolyticus+vul nificus DNA [Presence] in Stool by BJORN with non-probe detection [facility] Immunizations Immunization Date Immunization Notes Care Provider Fa cility 07-27-2021 Influenza Vaccine, Quadrivalent, Adjuvanted Nedra Perez BALLING HEAD TENDER-FINANCIAL ACCOUNTANT Work Phone: [facility] 07-27-2021 influenza virus vaccine, unspecified formulation Nedra Perez BALLING HEAD TENDER-FINANCIAL ACCOUNTANT Work Phone: [facility] [employer] [facility] 09-21-2020 COVID-19, mRNA, LNP- S, PF, 100mcg/0.5mL Dose Nedra Perez BALLING HEAD TENDER-FINANCIAL ACCOUNTANT Work Phone: [facility] Payers Date Payer Category Payer Self-pay 2023 Private Health Insurance [facility] [id number] 2019 Managed Care Other (unspecified) [facility] [id number] 2019 Medicare [id number] 2019 Unknown [id number] 2019 Unknown [id number] 1959 Medicare [id number] 1959 Unknown [id number] 1954 Unknown [id number] 1954 Unknown [id number] 1954 Unknown [id number] 1954 Unknown [id number] 1954 Unknown [id number] 1954 Unknown [id number] .[id number] 1954 Unknown [id number] Unknown [id number] Social History Date Type Detail Facility Start: 06-23-2023 End: 01-30-2024 Tobacco smoking status NDIS Ex-smoker (finding) [facility] Start: 1955 Sex Assigned At Female [facility] Tobacco smoking stat us [facility] Tobacco smoking consumption unknown [facility] Start: 1955 Sex Assigned At Not on file [facility] Start: 06-22-2023 End: 01-30-2024 Gender identity Not on file [facility] History of tobacco use Current smoker [facility] History of tobacco use Cigarette Smoker P [facility] Start: 02-07-2023 End: 01-30-2024 Tobacco use and exposure Smokeless tobacco non-user [facility] [employer] [facility] Start: 12-26-2023 End: 01-30-2024 Alcohol intake Lifetime non-drinker (finding) [facility] [employer] [facility] Start: 06-22-2023 End: 01-30-2024 History of Social function [facility] Do you belong to any clubs or organizations such as episcopalian groups, unions, fraternal or athletic groups, or school groups? No [facility] Are you now , , , , never or living with a partner? [facility] How often to you hav e a drink containing alcohol? Never [facility] How many standard dr inks containing alcohol do you have on a typical day? Patient does not drink [facility] How hard is it for y ou to pay for the very basics like food, housing, medical care, and heating Not very hard [facility] Do you feel stress - tense, restless, nervous, or anxious, or unable to sleep at night because your mind is troubled all the time - these days [OSQ] Only a little [facility] Start: 11-18-2020 Sex Female (finding) [facility] [employer] [facility] Goals Date Patient Goal Desired Activity /State Clinical Notes 01-25-2023 to 08-05-2024 Telephone Encounter - Sonia Lee CMA - 08/05/2024 12:41 PM ESTTelephone Encounter - Sonia Lee CMA - 08/05/2024 12:41 PM EST Note Date & Type Note Facility 08-05-2024 Miscellaneous Notes Can you make sure it has an ICD code with it so they can bill medicare part B documented in this encounter [facility] 08-05-2024 Telephone encounter Note Can you make sure it has an ICD code with it so they can bill medicare part B [facility] 04-23-2024 Note Cardiovascular Medic ine [facility] SUBJECTIVE Chief Complaint Patient presents with [...] is soft. Musculos (more content not included)... [facility] 04-23-2024 Note Patient here for 6 [...] All other systems reviewed and are negative. [facility] 12-29-2023 Progress note Note Date/Time December 29, 2023 8:50am [facility] [place] [address] Cancer Center Note Signed Patient: Perla Ibarra MR# : [id number] : 1955 Acct:[id number] Age/Sex: 68 / F Type: REG AMB Date of Service: 12/29/23 Copies to: DEIDRE Barrett~ Assessment & Plan A/P (1) Clear cell renal cell carcinoma: Plan Right renal Cancer, 70i6p78 cm with extension into right renal vein and inferiorvena cava.. 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 Has seen Dr. Ann in [place] for consideration of nephrectomy. 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 Also follows with Dr. Cervantes and Dr. Quach of urology. She had a hospitalization in December 2022 and ultimately was life flighted to [facility] for a myocardial infarction and ischemic heart [...] 2 days ago. She presented to [facility] where she was hydrated and subsequently transferred to [facility]. --She specifically denies any anginal chest pain, but does note some dyspnea that started a few days after starting the axitinib. She notes that she was shaking all over but did not fall to the ground or lose consciousness therefore it was not felt to be a seizure. 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 -- At [facility] she was noted to have white [...] up to inpatient stay.She was hospitalized at [facility] from 10/19/2023-10/25/2023 for headache, abdominal pain, hyponatremia, [...] Reasons: 6 wk f/u with scans at [facility], Clear cell renal cell carcinoma Accompanied by: [...] for a 6 week follow up with [facility] labs and outside imaging for review. Has treatment today. [facility] Medical History Medical History Hyponatremia Chronic hypoxic respiratory failure 2 L Oxygen via [place] at all times. 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 Work Phone: 1(441) 769-167603-26-2024 History of Present illness Narrative* Nedra Perez, BALLING HEAD TENDER-FINANCIAL ACCOUNTANT - 12/26/2023 3:00 PM EDT Subjective Patient [...] oncology later this week KAVITA Watson 12/26/23 [id number] [facility] Note[facility]iovascular Medicine [facility] SUBJECTIVE Chief Complaint Patient presents with Congestive [...] (chronic obstructive pulmonary disease) (CMS/HCC) Myocardial infarction ([facility]/HCC) Renal cell carcinoma of right kidney (CMS/HCC) Renal mass Past Medical History: Diagnosis Date CHF (congestive heart failure) (CMS/HCC) COPD (chronic obstructive pulmonary disease) ([facility]/HCC) NSTEMI (non-ST elevated myocardial infarction) ([facility]/HCC) PNA (pneumonia) Tuberculosis Family History Problem Relation Name Age of Onset Tuberculosis Mother Heart attack Brother Heart failure Maternal Grandmother Heart attack Maternal Grandfather Social History Tobacco Use Smoking status: Former Types: Cigarettes Quit date: 01/26/2023 Years since quittin.7 Smokeless tobacco: Never Substance Use Topics Alcohol use: Never Drug use: Never Allergies Allergen Reactions Erythromycin Unknown Per report from [facility] Constitutional: Positive for malaise/fatigue. Cardiovascular: Positive for [...] (H) 01/30/2023 10/04/2023 Gl (more content not included)...[facility]01-11-2024 NotePatient here for 6 mo follow up CAD, chronic systolic heart failure, and hypertension. She denies chest pain, palpitations, and lightheadedness. Taking a new chemo pill now for renal cell carcinoma. Review of Systems Constitutional: Positive for malaise/fatigue. Cardiovascular: Positive for dyspnea on exertion. 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 Right renal mass, 56i7u12 cm with extension into right renal vein and inferior vena cava.. Has seen Dr. Ann in [place] for consideration of nephrectomy. 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 Also follows with Dr. Cervantes and Dr. Quach of urology. She had a hospitalization in December 2022 and ultimately was life flighted to [facility] for a myocardial infarction and ischemic heart [...] for coordination of care (as documented) and [id number]-xz-[id number] counseling of patient and/or family. 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 - Family History Family History: Family History [...] By: <Electronically signed by CHAD Moon> 09/12/23 7[address] [facility] Work Phone: 1(896) 262-150212-05-2023 Progress note Author Aries Chavez [facility] September 05, 2023 11:33am Note Date/Time August 28, 2023 1:16pm [facility] at [address] [address] Hem/Onc Follow Up Note - OP Signed Patient: Perla Ibarra MR# : [id number] : 1955 Acct:[id number] Age/Sex: 68 / F Type: REG RCR Copies to: Nedra Danelle Perez, FINANCIAL ACCOUNTANT SELF,REFERRAL ~ Date of Service: 08/28/2023 Time of Service: 13:15 - Assessment & Plan (1) Renal mass Plan: 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 Right renal mass, 15*9*12 cm with extension into right renal vein and inferior vena cava.. Has seen Dr. Ann in [place] for consideration of nephrectomy. 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 Also follows with Dr. Cervantes and Dr. Quach of urology. She had a hospitalization in December 2022 and ultimately was life flighted to [facility] for a myocardial infarction and ischemic heart [...] for coordination of care (as documented) and [id number] counseling of patient and/or family. 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 - Family History Family History: Family History (Last Updated 06/23/23 @ 13:46 by Elayne Tayolr) Mother Tuberculosis Multiple sclerosis Other Lymphoma - [...] by Aries Chavez II, DO> 09/05/23 [address] [facility] Work Phone: 1(165) 489-999610-30-2023 Progress note Author Aries Chavez [facility] July 31, 2023 2:29pm Note Date/Time July 31, 2023 1 :59pm [facility] [place] [address] Hem/Onc Follow Up Note - OP Signed Patient: Perla Ibarra MR# : [id number] : 1955 Acct:[id number] Age/Sex: 67 / F Type: REG RCR Copies to: DEIDRE Barrett SELF,REFERRAL ~ Date of Service: 07/31/2023 Time of Service: 13:59 - Assessment & Plan (1) Renal mass Plan: Right renal mass, 15*9*12 cm with extension into right renal vein and inferior vena cava.. Likely a neoplasm. Has seen Dr. Ann in [place] for consideration of nephrectomy. No definitive retroperitoneal [...] get images uploaded to our system from [employer]. iv iron soon. 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 Also follows with Dr. Cervantes and Dr. Quach of urology. She had a hospitalization in December 2022 and ultimately was life flighted to [facility] for a myocardial infarction and ischemic heart [...] for coordination of care (as documented) and [id number] counseling of patient and/or family. 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 Maddie Ann MDN[facility]10-10-2023 Progress note Author Aries Chavez [facility] July 11, 2023 1:21pm Note Date/Time June 23, 2023 1:54pm [facility] [place] [address] Hem/Onc Follow Up Note - OP Signed Patient: Perla Ibarra MR# : [id number] : 1955 Acct:[id number] Age/Sex: 67 / F Type: REG RCR [...] with Dr. Ann who is now with [facility]. No definitive retroperitoneal lymphadenopathy. Extensive [...] MRI and ct images to here from [facility]. refer to [facility] at [facility]. f/u with me in a month (after imaging). get an CT a/p with contrast in a month at [facility]. 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 Also follows with Dr. Cervantes and Dr. Quach of urology. She had a hospitalization in December 2022 and ultimately was life flighted to [facility] for a myocardial infarction and ischemic heart [...] for coordination of care (as documented) and [id number]-as-gylo counseling of patient and/or family. 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 - Family History Family History: Family History [...] Confirmed 06/23/23] Dictated By: Aries Chavez II, DD/ [id number] Signed By: <Electronically signed by Aries Chavez II, DO> 07/11/23 132[address] [facility] Work Phone: 1(328) 930-815304-26-2023 NotePROCEDURE: XR CHEST 1 V DATE: 01/25/2023 [...] Electronically authenticated by: ANTONY VELASQUEZ Date: 2023-01-25 15:11[facility] noteNo assessment information availableFort [facility] Work Phone: Evaluation note* Diagnosis Onset Date Resolution Status Renal mass acute [facility] Work Phone: Evaluation note* Diagnosis Onset Date Resolution Status Clear cell renal cell carcinoma acute Encounter for antineoplastic chemotherapy acute Hyponatremia acute Iron deficiency anemia acute [facility] Work Phone: Evaluation note* Diagnosis [...] deficiency anemia acute Nonischemic cardiomyopathy a cute [facility] Work Phone: Evaluation note* Diagnosis [...] acute Hyponatremia acute Iron deficiency anemia acute [facility] Work Phone: Evaluation note* Diagnosis Onset [...] acute Iron deficiency anemia acute Hyponatremia resolved [facility] Work Phone: Evaluation note* Diagnosis Acute [...] acute Iron deficiency anemia acute Hyponatremia resolved [facility] Work Phone: Evaluation note* Diagnosis Onset Date Resolution Status Clear cell renal cell carcinoma acute Encounter for antineoplastic chemotherapy acute Iron deficiency anemia acute Hyponatremia resolved [facility] Work Phone: Evaluation note* Diagnosis Onset Date Resolution Status Clear cell renal cell carcinoma acute Encounter for antineoplastic chemotherapy acute Iron deficiency anemia acute Hyponatremia resolved Contact with and (suspected) exposure to covid-[address] [facility] Work Phone: Evaluation note* Diagnosis Onset Date Resolution Status COVID-19 noneactive Contact with and (suspected) exposure to covid-19 noneactive Clear cell renal cell carcinoma acute Encounter for antineoplastic chemotherapy acute Iron deficiency anemia acute Hyponatremia resolved [facility] Work Phone: Evaluation note* Diagnosis Chronic obstructive pulmonary disease with acute exacerbation (CMS-HCC) [facility] Additional Instructions Continue home oxygen as directed.[facility] Work Phone: InstructionsNot on filedocumented in this encounter [facility] filedocumented in this encounter [facility] on filedocumented in this encounter [facility] Author Aries Chavez [facility] July 31, 2023 2:29pm Note Date/Time July 31, 2023 1 :59pm [facility] Cancer Center at [address] [address] Hem/Onc Follow Up Note - OP Signed Patient: Perla Ibarra MR# : [id number] : 1955 Acct:[id number] Age/Sex: 67 / F Type: REG RCR Copies to: Nedra Perez, DEIDRE SELF,REFERRAL ~ Date of Service: 07/31/2023 Time of Service: 13:59 - Assessment & Plan (1) Renal mass Plan: Right renal mass, 15*9*12 cm with extension into right renal vein and inferior vena cava.. Likely a neoplasm. Has seen Dr. Ann in [place] for consideration of nephrectomy. No definitive retroperitoneal [...] start here, if not salazar is reasonable, [place]. f/u after. check ua and culture. offer her bactrim DS one tab bid x 10 days. get images uploaded to our system from [employer]. iv iron soon. 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 Also follows with Dr. Cervantes and Dr. Quach of urology. She had a hospitalization in December 2022 and ultimately was life flighted to [facility] for a myocardial infarction and ischemic heart [...] for coordination of care (as documented) and [id number] counseling of patient and/or family. 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 Also follows with Dr. Cervantes and Dr. Quach of urology. She had a hospitalization in December 2022 and ultimately was life flighted to [facility] for a myocardial infarction and ischemic heart [...] point review of systems is negative. 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 Right renal mass, 63j4l14 cm with extension into right renal vein and inferior vena cava.. Has seen Dr. Ann in [place] for consideration of nephrectomy. Determined not a [...] for coordination of care (as documented) and [id number] counseling of patient and/or family. Dictated By: Vannessa Perales APRN DD/ [id number] Signed By: <Electronically signed by CHAD Perales> 10/05/23 1407 [facility] Work Phone: Progress note Author Aries Chavez [facility] March 29, 2024 10:13am Note Date/Time March 29, 2024 9:43 am [facility] [place] [address] Cancer Center Note Signed Patient: Perla Ibarra MR# : [id number] : 1955 Acct:[id number] Age/Sex: 68 / F Type: REG AMB [...] Present Illness HPI Assessment/Plan. Right renal Cancer, 60r5m45 cm with extension into right renal vein and inferiorvena cava.. 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 Has seen Dr. Ann in [place] for consideration of nephrectomy. 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 Also follows with Dr. Cervantes and Dr. Quach of urology. She had a hospitalization in December 2022 and ultimately was life flighted to [facility] for a myocardial infarction and ischemic heart [...] 2 days ago. She presented to [facility] where she was hydrated and subsequently transferred to [facility]. --She specifically denies any anginal chest pain, but does note some dyspnea that started a few days after starting the axitinib. She notes that she was shaking all over but did not fall to the ground or lose consciousness therefore it was not felt to be a seizure. 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 -- At [facility] she was noted to have white [...] up to inpatient stay.She was hospitalized at [facility] from 10/19/2023-10/25/2023 for headache, abdominal pain, hyponatremia, [...] with labs and imaging for review. [facility] Medical History Medical History Hyponatremia Chronic hypoxic respiratory failure 2 L Oxygen via [place] at all times. 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 Work Phone: Summary Purpose Family History [...] Documentation 6 wk f/u with scans at [facility] Renal Mass N28.89 Reason for Visit Cancer [...] Hyponatremia Chief Complaint Review scans 06.13.2 4 15 wk f/u with scans Renal Mass N28.89 Reason for Visit Clear cell renal cayden l carcinoma Encounter for antineoplastic chemotherapy Iron deficiency anemia Hyponatremia Chief Complaint Review scans 06.13.2 4 15 wk f/u with scans Renal [...] section and content) DATE CREATED AUTHOR 02/10/2023 [facility] DATE CREATED AUTHOR AUTHOR'S ORGANIZ ATION 03/13/2023 [facility] DATE CREATED AUTHOR AUTHOR'S ORGANIZ ATION 01/31/2024 [facility] DATE CREATED AUTHOR AUTHOR'S ORGANIZ ATION 05/24/2024 [facility] DATE CREATED AUTHOR AUTHOR'S ORGANIZ ATION 10/22/2024 [facility] Care Teams (unrecognized sec tion [...] 2023 Zoie Jansen Other Provider Active Start: Januar y 2023 Ariana Bell MD Other Provider [...] Active Member Role Status Dates Nedra Perez [facility] Primary Care Provider Active S tart: October 20, 2023 Marisel Abdalla MD Attending Provider Active Start: October 20, 2023 Team Status: Inactive Member Role Status Dates Nedra Perez [facility] Primary Care Provider Active S tart: October 26, 2023 End: October 26, 2023 Vannessa Perales APRN Attending Provider Active Start: October 26, 2023 End: October 26, 2023 Team Status: Inactive Member Role Status Dates Nedra Perez [facility] Primary Care Provider Active S tart: November 17, 2023 End: November 17, 2023 Aries Chavez II, DO Attending Provider Active Start: November 17, 2023 End: November 17, 2023 Team Status: Inactive Member Role Status Dates TIMOTHY BarrettP Primary Care Provider Active S tart: December 29, 2023 End: December 29, 2023 Aries Chavez II, DO Attending Provider Active Start: December 29, 2023 End: December 29, 2023 Team Status: Active Member Role Status Dates Aries Chavez II, DO Attending Provider Active Start: December 29, 2023 TIMOTHY BarrettP Primary Care Provider Active S tart: December 29, 2023 Referral Self Referring Provider Active Start: 2023 Team Status: Inactive Member Role Status Dates TIMOTHY BarrettP Primary Care Provider Active S tart: August 22, 2023 End: August 22, 2023 Aries Chavez II, DO Attending Provider Active Start: August 22, 2023 End: August 22, 2023 Team Status: Active Member Role Status Dates Aries Chavez II, DO Attending Provider Active Start: October 05, 2023 TIMOTHY BarrettP Primary Care Provider Active S tart: October 05, 2023 Referral Self Referring Provider Active Start: J pilouary 2023 Team Status: Active Member Role Status [...] Attending Provider Active Start: October 26, 2023 TIMOTHY BarrettP Primary Care Provider Active S tart: October 26, 2023 Referral Self Referring Provider Active Start: J catherine 2023 Team Status: Active Member Role Status Dates Aries Chavez II, DO Attending Provider Active Start: November 17, 2023 TIMOTHY BarrettP Primary Care Provider Active S tart: November 17, 2023 Referral Self Referring Provider Active Start: Kassy hernandez 2023 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 Relationship Specialty Start Date End Date Nedra Perez APRN-FINANCIAL ACCOUNTANT [address] [facility] [address] PCP - General Internal Medicine 02/09/23 Team Status: Inactive Member Role Status Dates Nedra DEIDRE Root Primary Care Provider Active S tart: May 10, 2024 End: May 10, 2024 Aries Chavez II, DO Active S tart: May 10, 2024 End: May 10, 2024 Nedra Moon APRN Attending Provider Acti ve Start: May 10, 2024 End: May 10, 2024 Team Status: Active Member Role Status Dates Aries Chavez II, DO Attending Provider Active Start: May 10, 2024 DEIDRE Barrett Primary Care Provider Active S tart: May 10, 2024 Referral Self Referring Provider Active Start: Samara [facility] 2023 Team Status: Inactive Member Role Status Dates TIMOTHY BarrettP Primary Care Provider Active S tart: June 04, 2024 End: June 04, 2024 Elayne James APRN Attending Provider Active Start: June 04, 2024 End: June 04, 2024 Team Status: Inactive Member Role Status Dates Nedra Danelle Danieltony DEIDRE Primary Care Provider Active S tart: June 24, 2024 End: June 24, 2024 Aries Chavez II, DO Attending Provider Active Start: June 24, 2024 End: June 24, 2024 Team Status: Active Member Role Status Dates Aries Chavez II, DO Attending Provider Active Start: June 24, 2024 TIMOTHY BarrettP Primary Care Provider Active S tart: June 24, 2024 Referral Self Referring Provider Active Start: S nicktecrescencio 2023 [employer] 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 Relationship Specialty Start Date End Date Kelli Baron APRN-CNP [address] [facility] [place] [address] PCP - General Family Medicine 03/29/24 [employer]razzo 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 Relationship Specialty Start Date End Date Kelli Baron APRN-CNP [address] [place] [address] PCP - General Family Medicine 03/29/24 Goals (unrecognized section and content) Goals may be documented in a n alternate sectionGoals may be documented in an alternate sectionNot on filedocumented as of this encounterNot on filedocumented as of this encounterNot on filedocumented as of this encounter Reason for Visit (unrecogniz ed section and content) Reason Comments Nasal Congestion No covid Reason Onset Date Comments Med Refill 07/19/2024 Reason Onset Date Comments Med Refill 08/05/2024 FOR RECORDS PERTAINING TO PATIENTS WHO ARE [...] BE BASED ON THE PRIMARY CLINICAL RECORDS. [employer] [facility]. provides no warranty or guarantee of the accuracy or completeness of information in this document.
[2024-10-23 08:52] LABS: Basophils Absolute Auto 0.1 10^3/uL (0.0-0.1); Basophils Percent Auto 0.9 % (0.2-2.0); Eosinophils Absolute Auto 0.4 10^3/uL (0.0-0.7); Eosinophils Percent Auto 3.9 % (0.9-7.0); Hematocrit 39.5 % (36.0-48.0); Hemoglobin 12.9 g/dL (12.0-16.0); Immature Granulocytes Abs Auto 0.04 10^3/uL (0.00-0.03); Immature Granulocytes Pct Auto 0.4 % (0.0-0.5); Lymphocytes Percent Auto 19.2 % (20.5-60.0); Mean Corpuscular HGB Conc 32.7 g/dL (29.9-35.2); Mean Corpuscular Hemoglobin 29.3 pg (26.7-34.0); Mean Corpuscular Volume 89.8 fL (81.0-99.0); Mean Platelet Volume 9.8 fL (9.5-13.5); Monocytes Absolute Auto 0.9 10^3/uL (0.3-0.8); Monocytes Percent Auto 8.6 % (1.7-12.0); Neutrophils Absolute Auto 6.9 10^3/uL (1.4-6.5); Platelet Count 237 10^3/uL (150-450); Red Cell Distribution Width 12.6 % (11.0-15.0); White Blood Count 10.2 10^3/uL (4.0-11.0)
--- NOTE | 2024-10-23 08:54 | CT_ITS ---
[address] [address] Patient Name: PRACHI WARD MRN: [id number] date: 1955 Sex: F Assigned Patient Location: LAB Current Patient Location: LAB Accession/Order Number: [id number] Exam Date: 10/23/2024 10:00 Report Date: 10/23/2024 11:49 At the request of: BARBARA MONTES DE OCA Procedure: CT chest w con EXAMINATION: CT chest w con HISTORY: Clear Cell Carcinoma Of Kidney ; follow-up COMPARISON: CT chest 06/18/2024, 12/19/2023 TECHNIQUE: Multi-planar CT images were obtained without and/or with IV contrast as indicated by examination type. Axial, Coronal, and Sagittal images. Dose reduction techniques were achieved by using automated exposure control and/or adjustment of mA and/or kV according to patient size and/or use of iterative reconstruction technique. FINDINGS: LUNGS: Mild emphysematous changes and mild peripheral stranding/fibrosis and chronic interstitial changes. New 1.2 x 0.9 cm irregular opacity adjacent the left major fissure at the level of the hilum. PLEURA: No mass, effusion, or pneumothorax. VASCULATURE: No abnormality. CATALINA: No mass or adenopathy. MEDIASTINUM: No mass or adenopathy. CARDIAC: No enlargement or pericardial thickening.. Coronary artery calcifications: AORTA: No aneurysm or dissection. CHEST WALL: No mass or axillary adenopathy. BONES: No bone lesion or fracture. LIMITED ABDOMEN: No suspicious findings Limited images of the upper abdomen. OTHER: Negative. CT/CT chest w con IMPRESSION: 1. New 1.2 x 0.9 cm irregular opacity within left lower lobe adjacent the minor fissure at the level of the hilum; nonspecific. 2. Mild-moderate peripheral stranding/fibrosis, chronic interstitial changes, emphysematous changes; grossly stable compared to 06/18/2024. 3. No lymphadenopathy. Electronically authenticated by: FREDDY BARRAZA Date: 10/23/2024 11:49
--- NOTE | 2024-10-23 08:54 | CT_ITS ---
The [address] [address] Patient Name: PRACHI WARD MRN: [id number] date: 1955 Sex: F Assigned Patient Location: LAB Current Patient Location: LAB Accession/Order Number: [id number] Exam Date: 10/23/2024 10:00 Report Date: 10/23/2024 10:49 At the request of: BARBARA MONTES DE OCA Procedure: CT abdomen pelvis w con EXAM: CT abdomen pelvis w con HISTORY: Clear Cell Carcinoma Of Kidney COMPARISON: CT abdomen pelvis 06/18/2024.. TECHNIQUE: Following intravenous administration of 100 cc of Omnipaque 300, axial soft tissue windows of the abdomen and pelvis were performed and sagittal reformats. Findings: Redemonstrated is bilateral lower lung scarring. Redemonstrated is a large hiatal hernia. ABDOMEN: The liver, spleen, pancreas, and adrenal glands are unremarkable. There are stones within the gallbladder. Redemonstrated is mild gallbladder wall thickening. No renal stones or collecting system dilatation. Stable bilateral low-attenuation lesions, too small to characterize. Redemonstrated off the lower pole of the right kidney is a complex cystic mass. This currently measures approximately 4.2 x 3.9 x 5.9 cm. The bilateral ureters are nondilated. There are colonic diverticula. Otherwise, the bowel is unremarkable without evidence of thickening or obstruction. The appendix is nondilated. The aorta is normal caliber. Mild atherosclerotic disease. No enlarged abdominal lymph node nodes or free abdominal fluid. Pelvis: Mild circumferential bladder wall thickening likely relates to lack of distention. No calculi. The uterus is present and unremarkable within the limits of CT. No enlarged pelvic lymph nodes or free pelvic fluid. No aggressive sclerotic or lytic osseous lesions. Stable multilevel degenerative spondylosis. CT/CT abdomen pelvis w con IMPRESSION: 1. No significant interval change in size in the previously identified complex right renal mass. 2. No new metastases. 3. Other nonemergent findings, as described above. Electronically authenticated by: FOX BALLARD Date: 10/23/2024 10:49
[2024-10-23 09:22] LABS: Thyroid Stimulating Hormone 19.085 uIU/mL (0.358-3.740)
[2024-10-23 09:28] LABS: Alanine Aminotransferase 20 U/L (14-59); Albumin Globulin Ratio 0.7; Albumin Level 3.2 g/dL (3.4-5.0); Alkaline Phosphatase 72 U/L (46-116); Anion Gap 11.1; Aspartate Amino Transferase 17 U/L (15-37); BUN Creatinine Ratio 13.2; Bilirubin Total 0.4 mg/dL (0.2-1.0); Calcium 8.7 mg/dL (8.5-10.1); Carbon Dioxide 29.4 mmol/L (21.0-32.0); Chloride 99 mmol/L (98-107); Estimated GFR (African America >60 (>=60 mL/min/1.73m^2); Estimated GFR (Non-African Ame 51 (>=60 mL/min/1.73m^2); Globulin 4.3 g/dL; Glucose 101 mg/dL (74-106); Potassium 4.5 mmol/L (3.5-5.1); Sodium 135 mmol/L (136-145); Total Protein 7.5 g/dL (6.4-8.2)
[2024-10-23 09:34] LABS: Free T4 1.15 ng/dL (0.76-1.46)
[2024-10-24 13:07] LABS: ACTH, Plasma 16.5 pg/mL (7.2-63.3)
== END 2024-10-23 08:39 | disposition home or self-care (01) ==
LOC: LAB 08:39
PROVIDERS: PCP Nurse Practitioner Family; Visit Provider Internal Medicine
DX: C64.9 Malignant neoplasm of unspecified kidney, except renal pelvis (principal)
CPT/HCPCS: 36415; 71260; 74177; 80053; 82024; 82533; 84439; 84443; 85025; Q9967

== ENCOUNTER 2024-11-20 08:49 | Outpatient (OUT) | payer MEDICARE, OTHER, SELFPAY ==
[2024-11-20 09:50] LABS: Thyroid Stimulating Hormone 5.955 uIU/mL (0.358-3.740)
[2024-11-20 10:18] LABS: Free T4 1.42 ng/dL (0.76-1.46)
== END 2024-11-20 08:50 | disposition home or self-care (01) ==
LOC: LAB 08:51
PROVIDERS: PCP Nurse Practitioner Family; Visit Provider Internal Medicine
DX: C64.1 Malignant neoplasm of right kidney, except renal pelvis (principal); R79.89 Other specified abnormal findings of blood chemistry
CPT/HCPCS: 36415; 84439; 84443

== ENCOUNTER 2024-12-05 12:33 | Outpatient (OUT) | payer MEDICARE, OTHER, SELFPAY ==
--- NOTE | 2024-12-05 13:00 | CA_ITS ---
Patient Name: PRACHI WARD MR#: [id number] : 1955 Exam Date: 12/05/2024 Ordering Doctor: AMMY BRIDGES M.D. ECHOCARDIOGRAM REPORT PROCEDURE: CA ECHO DOPPLER COMPLETE INDICATIONS: Heart failure with reduced ejection fraction, kidney cancer - chemotherapy COMPARISON: None. DESCRIPTION: COMPLETE ECHOCARDIOGRAM Real-time transthoracic echocardiography with 2D, M-mode, spectral and color flow Doppler performed. QUALITY: Technical quality was good. LEFT VENTRICLE: Normal chamber size. Mild concentric left ventricular hypertrophy. Normal systolic function. LV EF: Normal left ventricular ejection fraction, (55%). DIASTOLIC: Normal diastolic function. ATRIAL SEPTUM: LEFT ATRIUM: Normal chamber size. RIGHT ATRIUM: Normal chamber size. RIGHT VENTRICLE: Normal chamber size. Normal right ventricular systolic function. TRICUSPID VALVE: Normal mobility and thickness. No stenosis with trivial regurgitation. No evidence of pulmonary hypertension. RVSP 18 mmHg MITRAL VALVE: Normal mobility and thickness. No evidence of mitral valve stenosis. Mild mitral annular calcification. No mitral regurgitation. AORTIC VALVE: Normal trileaflet appearance. Mildly calcified aortic valve. Normal leaflet mobility. No evidence of aortic valve stenosis. No aortic regurgitation. AORTIC ROOT: Normal diameter and appearance. Ascending aorta is normal in size, measuring 3.0 cm. PULMONIC VALVE: Normal thickness and mobility. No stenosis. No regurgitation. PERICARDIUM: No evidence of pericardial effusion. IVC: Collapses with inspirations. IVC is normal in size. PLEURA: CONCLUSION: 1. Mild concentric left ventricular hypertrophy with normal systolic function. LVEF is estimated at 55%. 2. Normal right ventricular size and systolic function. 3. No significant valvular dysfunction. 4. Normal diastolic function. 5. Normal right-sided pressures. Adult Echocardiography Procedure Report Left Ventricle LVEDD (3.7 - 5.6 cm): 4.04 cm LVESD (2.2 - 4.0 cm): 3.20 cm LVIVS thickness (0.6 - 1.2 cm): 1.20 cm LVPW thickness (0.5 - 1.0 cm): 1.07 cm e': 0.13 m/s E - e': 4.98 LVOT Max Gradient: 4.14 mm[Hg] LVOT Area (cm2): 1.02 m/s Peak Velocity (LVOT): 1.02 m/s Mean Velocity (LVOT): 0.63 m/s LVOT Diameter 2.33 cm Left Atrium LA Volume Index (2D A2C): 28.12 ml/m2 Left Atrium Systolic Dimension: 3.37 cm Mitral Valve MV E to A Ratio: 0.62 Mitral Valve A-Wave Peak Velocity: 1.03 m/s Mitral Valve E-Wave Peak Velocity: 0.64 m/s Right Ventricle Aorta AO Root Diam: 3.33 cm Ascending Ao Diam: 3.01 cm Aortic Valve AoV Area (Peak Justo): 3.72 cm2, 3.72 cm2 AoV Area (VTI): 4.09 cm2, 4.09 cm2 Peak Velocity(Antegrade Flow): 1.17 m/s Peak Gradient(Antegrade Flow): 5.49 mm[Hg] Mean Velocity(Antegrade Flow): 0.71 m/s Mean Gradient(Antegrade Flow): 2.46 mm[Hg] Velocity Time Integral: 28.15 cm Tricuspid Valve Peak Velocity (Regurgitant Flow): 1.91 m/s Pulmonic Valve Mean Gradient: 1.52 mm[Hg] Mean Velocity: 0.58 m/s Peak Velocity: 0.88 m/s, 0.90 m/s Peak Gradient: 3.22 mm[Hg], 3.09 mm[Hg] Right Atrium Right Atrium Systolic Pressure: 66.24 ml, 66.24 ml Dictated by: Francisco Regalado M.D. on 12/05/2024 at 18:28 Approved by: Francisco Regalado M.D. on 12/05/2024 at 18:32
== END 2024-12-05 12:34 | disposition home or self-care (01) ==
LOC: CARD 12:33
PROVIDERS: PCP Nurse Practitioner; Visit Provider Internal Medicine Cardiovascular Disease
DX: I50.22 Chronic systolic (congestive) heart failure (principal)
CPT/HCPCS: 93306

== ENCOUNTER 2025-01-23 07:58 | Outpatient (OUT) | payer MEDICARE, OTHER, SELFPAY ==
--- NOTE | 2025-01-23 08:11 | CT_ITS ---
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 This CT exam was performed using one or more following dose reduction techniques: Automated exposure control, adjustment of the mA and/or kV according to patient size, or use of iterative reconstruction technique. FINDINGS: Lung Bases: [Bibasilar scarring/fibrosis.] Organs:Liver portal vein spleen pancreas and adrenal glands appear unremarkable. Cholelithiasis. Abdominal aorta demonstrates moderate calcification without aneurysm. Left kidney demonstrates subcentimeter low attenuating lesions, too small for characterization. Once again demonstrated is a mass involving the inferior pole of the right kidney measuring 3.8 x 3.6 x 4.4 cm. This heterogeneously enhances. This mass also appears to be partially calcified. Adjacent small cyst is present. No hydronephrosis. There appears to be a filling defect involving the right renal vein possibly representing tumor invasion. IVC appears patent. Left renal vein appears patent.[ GI: Moderate size hiatal hernia. Distal stomach is grossly unremarkable. Small bowel appears nondilated. Left colon diverticulosis.[ Pelvis:[Uterus and urinary bladder appear unremarkable. No adnexal mass.] Peritoneum/Retroperitoneum:No free air or free fluid or lymphadenopathy.[ Abd wall/Bones:Abdominal wall demonstrates no acute findings. Osseous structures demonstrate degenerative change.[ CT/CT abdomen pelvis w con IMPRESSION: Heterogeneously enhancing partially calcified mass inferior pole of the right kidney measuring 3.8 x 3.6 x 4.4 cm. There appears to be right renal vein involvement. Findings are grossly similar to the prior study given differences in measuring technique. No CT evidence of progression of disease. Impression dictated by: Junior Shelley Jr., D.O.01/23/2025 1:42 PM Dictation Location: [place] [address] Electronically authenticated by: [id number] Y Date: 01/23/2025 13:42
[2025-01-23 08:13] LABS: Basophils Absolute Auto 0.1 10^3/uL (0.0-0.1); Basophils Percent Auto 1.1 % (0.2-2.0); Eosinophils Absolute Auto 0.5 10^3/uL (0.0-0.7); Eosinophils Percent Auto 6.7 % (0.9-7.0); Hematocrit 35.1 % (36.0-48.0); Hemoglobin 11.3 g/dL (12.0-16.0); Immature Granulocytes Abs Auto 0.02 10^3/uL (0.00-0.03); Immature Granulocytes Pct Auto 0.3 % (0.0-0.5); Lymphocytes Absolute Auto 1.8 10^3/uL (1.2-3.8); Lymphocytes Percent Auto 22.2 % (20.5-60.0); Mean Corpuscular HGB Conc 32.2 g/dL (29.9-35.2); Mean Corpuscular Volume 90.2 fL (81.0-99.0); Monocytes Absolute Auto 0.8 10^3/uL (0.3-0.8); Monocytes Percent Auto 9.5 % (1.7-12.0); Neutrophils Absolute Auto 4.8 10^3/uL (1.4-6.5); Neutrophils Percent Auto 60.2 % (43.0-75.0); Platelet Count 216 10^3/uL (150-450); Red Blood Count 3.89 10^6/uL (4.20-5.40); Red Cell Distribution Width 12.4 % (11.0-15.0); White Blood Count 7.9 10^3/uL (4.0-11.0)
[2025-01-23 08:27] LABS: Alanine Aminotransferase 18 U/L (14-59); Albumin Globulin Ratio 0.8; Albumin Level 3.2 g/dL (3.4-5.0); Alkaline Phosphatase 87 U/L (46-116); Anion Gap 11.1; Aspartate Amino Transferase 15 U/L (15-37); BUN Creatinine Ratio 13.2; Bilirubin Total 0.4 mg/dL (0.2-1.0); Calcium 8.9 mg/dL (8.5-10.1); Carbon Dioxide 29.1 mmol/L (21.0-32.0); Chloride 99 mmol/L (98-107); Estimated GFR (African America >60 (>=60 mL/min/1.73m^2); Estimated GFR (Non-African Ame >60 (>=60 mL/min/1.73m^2); Globulin 4.2 g/dL; Glucose 102 mg/dL (74-106); Potassium 4.2 mmol/L (3.5-5.1); Sodium 135 mmol/L (136-145); Total Protein 7.4 g/dL (6.4-8.2)
[2025-01-24 02:07] LABS: Vitamin B12 332 pg/mL (232-1245)
== END 2025-01-23 07:59 | disposition home or self-care (01) ==
LOC: LAB 07:59
PROVIDERS: PCP Nurse Practitioner; Visit Provider Internal Medicine
DX: C64.1 Malignant neoplasm of right kidney, except renal pelvis (principal); D50.9 Iron deficiency anemia, unspecified
CPT/HCPCS: 36415; 74177; 80053; 82607; 82728; 82746; 83540; 83550; 85025; Q9967

== ENCOUNTER 2025-03-20 19:51 | Emergency (ER) | payer MEDICARE, OTHER, SELFPAY ==
--- OUTSIDE RECORDS SUMMARY | 2025-03-20 20:00 | XMS_ITS | CCD ---
Author Organization [facility] Care Team Providers Care Hims Manager Name Role Phone Chantal Park Attending Unavailable KUNTony, ROGERS Referring Unavailable Chantal Park Attending Unavailable CHRISTI, [...] Unavailable DO Aries Chavez II [facility] Self, Referral Referring Provider Unavailable DO Aries Chavez II [facility] [phone] Self, Referral Referring Provider Unavailable DO Aries Chavez II [facility] Self, Referral Referring Provider [facility] [phone] DO Aries Chavez II Attending Provider Self, Referral Referring Provider Unavailable Self, Referral Referring Provider Unavailable Self, Referral Referring Provider Unavailable Self, Referral Referring Provider Unavailable Self, Referral Referring Provider Unavailable Unavailable Primary Care Provider Unavailabl e Self, Referral Referring Provider Unavailable Ranjanowicz II, DO Aries Guzman Attending Provider Kuns, MANAGEMENT TECH [facility] Primary Care Provider [phone] Self, Referral Referring Provider Unavailable Ranjanowicz II, DO Aries Guzman Attending Provider Kuns, MANAGEMENT TECH [facility] Primary Care Provider [phone] Self, Referral Referring Provider Unavailable Ranjanowicz II, DO Aries Guzman Attending Provider Kuns, [facility] Primary Care Provider Self, Referral Referring Provider Unavailable Ranjanowicz II, DO Aries Guzman Attending Provider Kuns, [facility] Primary Care Provider Self, Referral Referring Provider Unavailable Ranjanowicz II, DO Aries Guzman Attending Provider Kuns, [facility] Primary Care Provider Self, Referral Referring Provider Unavailable Aries Chavez DO Attending Provider Kuns [facility], [facility] Primary Care Provider Self, Referral Referring Provider Unavailable Kuns GREEN BELT-MANAGEMENT TECH, [facility] Primary Care Provider Tod GREEN BELT-INSECTICIDE MIXERToro Primary Care Provid er Aries Chavez DO Attending Provider [phone] Kuns MANAGEMENT TECH, [facility] Primary Care Provider [phone] Self, Referral Referring Provider Unavailable AMMY BRIDGES Attending Unavailable PEDRO LUIS FRENCH Attending Unavailable ROGERS KIM Attending Unavailable ROGERS KIM Referring Unavailable JULIO, ROGERS WOODRUFF Primary Care Unavailable ROGERS KIM Attending Unavailable ROGERS KIM Referring Unavailable KUNTony, ROGERS WOODRUFF Primary Care Unavailable TORO BARON Attending Unavailable TORO BARON Referring Unavailable TORO BARON Primary Care Unavailable Aries Chavez DO Attending Provider Julio JIANGRogers Primary Care Provider Self, Referral Referring Provider Unavailable Aries Chavez II Admitting Unavaila Aries Srivastava II Attending Unavaila ble Self, Referral Referring Unavailable DanieltonyRogers Primary Care Unavailable Allergies Allergy Classification Reported Allergen(s) Allergy Type Date of Onset Reaction(s) Facility (8 sources) Erythromycin Drug Allergy 3 Diarrhea [facility] Repository (8 sources) Erythromycin; Translations: [ERYTHROMYCIN] Drug Allergy 3 [facility] (See Comments[facility] pembrolizumab; Translations: [PEMBROLIZUMAB] Drug Allergy 5 Other (See Comments) [facility] Repository (1 source) Erythromycin Drug Allergy 5 [facility] Repository Medications Current Medications Medication Drug Class(es) Dates Sig (Normalized) Sig (Original) albuterol 0.83 mg/ml inhalation solution (12 sources) beta2-Adrenergic Agonist Start: 01-30-2024 End: 08-05-2024 take 3 mL by inhalation every six hours as needed for wheezing albuterol (PROVENTIL,VENTOLIN ) 2.5 mg /3 mL (0.083 %) nebulizer solution Indications: Chronic obstructive pulmonary disease with acute exacerbation ([facility]) Inhale 3 mL (2.5 mg total) by nebulization every 6 (six) hours as needed for wheezing. 75 mL 6 08/05/2024 Active Start: 04-28-2023 take 2 puff(s) by mo uth every four hours VENTOLIN HFA 90 mcg/actuation inhaler inhale 2 puffs by mouth and INTO THE LUNGS every 4 hours if needed for shortness of breath 04/28/2023 Active albuterol 0.833 mg/ml / ipratropium bromide 0.167 mg/ml inhalation solution (1 source) Anticholinergic, beta2-Adrenergic Agonist Start: 11-15-2024 take 3 mL by inhalation four times daily ipratropium-albuteroL (DUONEB) 0.5 mg-3 mg(2.5 mg base)/3 mL nebulizer INHALE 3ml via NEBULIZER FOUR TIMES DAILY 11/15/2024 Active amoxicillin 875 mg / clavulanate 125 mg oral tablet (2 sources) Penicillin-class Antibacterial Start: 01-30-2024 End: 02-06-2024 take 1 tablet by mouth once in the morning amoxicillin-pot clavulanate (AUGMENTIN) 875-125 mg per tablet Take 1 tablet by mouth in the morning and 1 tablet before bedtime. Do all this for 7 days. 14 tablet 01/30/2024 02/06/2024 Active Start: 12-26-2023 End: 01-02-2024 take 1 tablet by mouth once in the morning amoxicillin-pot clavulanate (AUGMENTIN) 875-125 mg per tablet Indications: Acute recurrent frontal sinusitis Take 1 tablet by mouth in the morning and 1 tablet before bedtime. Do all this for 7 days. 14 tablet 0 12/26/2023 01/02/2024 Active aspirin 81 mg delayed release oral tablet (17 sources) Platelet Aggregation Inhibitor, Nonsteroidal Anti-inflammatory Drug Start: 10-20-2023 take 1 tablet by mouth once daily Aspirin 81 mg tablet,delayed release (DR/EC) Active 81 MG PO Daily October 20, 2023 1:00am atorvastatin 20 mg oral tablet (20 sources) HMG-CoA Reductase Inhibitor Start: 06-21-2023 take 1 tablet by mouth once daily at bedtime Atorvastatin 20 mg tablet Active 20 MG PO Daily at bedtime June 21, 2023 12:00am docusate sodium 100 mg oral capsule (7 sources) Start: 03-29-2024 take 1 capsule by mouth once daily Docusate Sodium (Colace) 100 mg capsule Active 100 MG PO Daily March 29, 2024 12:00am escitalopram 10 mg oral tablet (20 sources) Serotonin Reuptake Inhibitor Start: 11-23-2024 escitalopram (LEXAPRO) 10 mg tablet Take 1 tablet (10 mg total) by mouth. 11/23/2024 Active Start: 04-19-2024 End: 08-13-2024 take 1 tablet by mouth once daily in the morning Escitalopram Oxalate 10 mg tablet Discontinued 0 .ROUTE .COMPLEX 90 April 23, 2024 3:34pm August 13, 2024 4:08pm take 1 tablet by mouth every morning Start: 03-29-2024 End: 04-19-2024 take 1 tablet by mouth once daily in the morning Escitalopram Oxalate 10 mg tablet Discontinued 10 MG PO Every morning March 29, 2024 10:15am April 19, 2024 2:28pm Start: 06-21-2023 End: 12-16-2024 take 1 tablet by mouth once daily in the morning Escitalopram Oxalate 5 mg tablet Discontinued 5 MG PO Every morning June 21, 2023 12:00am March 29, 2024 10:16am famotidine 20 mg oral tablet (20 sources) Histamine-2 Receptor Antagonist Start: 07-11-2023 End: 07-19-2024 take 1 tablet by mouth once daily as needed for gastroesophageal reflux disease famotidine (PEPCID) 20 mg tablet Take 1 tablet (20 mg total) by mouth nightly as needed for heartburn. 30 tablet 2 07/22/2024 Active furosemide 20 mg oral tablet (1 source) Loop Diuretic Start: 01-27-2025 take 1 tablet by mouth once daily as needed for edema Furosemide (Lasix) 20 mg tablet Active 20 MG PO Daily as needed for edema January 27, 2025 12:00am levothyroxine sodium 0.1 mg oral tablet (20 sources) l-Thyroxine Start: 06-24-2024 End: 10-01-2024 levothyroxine (SYNTHROID, LEVOTHROID) 100 MCG tablet Take 1 tablet (100 mcg total) by mouth. 12/05/2024 Active Start: 05-10-2024 End: 06-24-2024 take 1 capsule by mouth once daily Levothyroxine 75 mcg capsule Discontinued 75 MCG PO Daily May 10, 2024 10:38am June 24, 2024 1:29pm Start: 03-29-2024 End: 05-10-2024 take 1 capsule by mouth once daily Levothyroxine 50 mcg capsule Discontinued 50 MCG PO Daily March 29, 2024 12:00am May 10, 2024 10:43am Start: 02-19-2024 End: 03-29-2024 take 1 tablet by mouth once daily Levothyroxine 75 mcg tablet Discontinued 0 .ROUTE .COMPLEX February 19, 2024 9:16am March 29, 2024 10:04am take 1 tablet by mouth daily Start: 01-18-2024 End: 03-17-2025 take 1 tablet by mouth once daily [...] succinate 25 mg extended release oral tablet (20 sources) beta-Adrenergic [place] Start: 12-10-2024 End: 12-10-2025 take 0.5 tablet by mouth every twenty-four hours metoprolol succinate XL (TOPROL XL) 25 mg 24 hr tablet Take 0.5 tablets (12.5 mg total) by mouth. 12/10/2024 12/10/2025 Active Start: 06-21-2023 take 1 tablet by chace th every twenty-four hours Metoprolol Succinate 25 mg tablet extended release 24 hr Active 25 MG PO As Directed June 21, 2023 12:00am Start: 04-21-2023 End: 04-20-2024 take 0.5 tablet by mouth every twenty-four hours metoprolol succinate XL (TOPROL XL) 25 mg 24 hr tablet Take 0.5 tablets (12.5 mg total) by mouth. 04/21/2023 04/20/2024 Active Omeprazole Magnesium (Prilosec Otc) 20 mg tablet,delayed release (DR/EC) (2 sources) Start: 11-25-2024 take 1 tablet by mouth once daily Omeprazole Magnesium (Prilosec Otc) 20 mg tablet,delayed release (DR/EC) Active 20 MG PO Daily November 25, 2024 1:00am Start: 11-25-2024 take 1 tablet by chace th once daily Omeprazole Magnesium (Prilosec Otc) 20 mg tablet,delayed release (DR/EC) Active 20 MG PO Daily November 25, 2024 12:00am ondansetron 4 mg disintegrating oral tablet (20 sources) Serotonin-3 Receptor Antagonist Start: 10-24-2023 End: 03-29-2024 take 1 tablet by mouth every six hours as needed for nausea and vomiting Ondansetron 4 mg tablet,disintegrating Active 4 MG PO Q6H as needed for nausea and vomiting March 29, 2024 10:15am Start: 10-17-2023 End: 01-30-2024 take 1 tablet by mouth every eight hours as needed for nausea Ondansetron 4 mg Tablet,Disintegrating Discontinued 4 MG PO Q8H as needed for Nausea October 17, 2023 8:47pm October 24, 2023 12:58pm polyethylene glycol 3350 46118 mg powder for oral solution (16 sources) Osmotic Laxative Start: 10-24-2023 Polyethylene Glycol 3350 (Healthylax) 17 gram Powder In Packet Active 17 GM PO Daily October 24, 2023 1:00am sacubitril 24 mg / valsartan 26 mg oral tablet (20 sources) Angiotensin 2 Receptor Eknton Start: 06-21-2023 take 1 tablet by mouth twice daily Sacubitril-Valsart an (Entresto) 24-26 mg tablet Active 1 TAB PO Twice daily June 21, 2023 12:00am Start: 03-23-2023 take 1 tablet by chace once daily at bedtime ENTRESTO 24-26 mg tablet take 1 tablet by mouth every morning and at bedtime 03/23/2023 Active sennosides, correction 8.6 mg oral tablet (5 sources) Start: 10-24-2023 senna (SENOKOT ) 8.6 mg tablet Twice daily 10/24/2023 Active spironolactone 25 mg oral tablet (20 sources) Aldosterone Antagonist Start: 06-21-2023 Spironolactone 25 mg tablet Active 12.5 MG PO As Directed June 21, 2023 12:00am Start: 06-21-2023 Spironolactone Active 12.5 MG PO As Directed June 21, 2023 12:00am spironolactone ( ALDACTONE) 25 mg tablet Take 1 tablet (25 mg total) by mouth in the morning. Cut in half. Active traMADol hydrochloride 50 mg oral tablet (2 sources) Opioid Agonist Start: 01-27-2025 take 1 tablet by mouth every eight hours as needed Tramadol 50 mg tablet Active 50 MG PO Every 8 hours as needed January 27, 2025 12:00am Start: 12-16-2024 End: 12-23-2024 take 1 tablet by mouth every eight hours as needed for pain traMADoL (ULTRAM) 50 mg tablet Indications: Arthritis, multiple joint involvement Take 1 tablet (50 mg total) by mouth every 8 (eight) hours as needed for pain for up to 7 days. 21 tablet 12/16/2024 12/23/2024 Active Completed/Discontinued Medications Medication Drug Class(es) Dates Sig (Normalized) Sig (Original) ALPRAZolam 0.25 mg oral tablet (6 sources) Benzodiazepine Start: 04-07-2023 End: 12-16-2024 ALPRAZolam (XANAX) 0.25 mg tablet Indications: Anxiety Use twice daily as needed for anxiety - short term use only 10 tablet 04/07/2023 12/16/2024 Discontinued (Therapy completed) axitinib 5 mg oral tablet (14 sources) Kinase Inhibitor Start: 09-07-2023 End: 10-26-2023 take 1 tablet by mouth twice daily Axitinib (Inlyta) 5 mg Tablet Discontinued 5 MG PO Twice daily 60 September 07, 2023 1:00am October 26, 2023 2:22pm On Hold: Hold until seen by Cancer doctor benzonatate 100 mg oral capsule (5 sources) Non-narcotic Antitussive Start: 06-04-2024 End: 06-24-2024 take 1 capsule by mouth three times daily Benzonatate 100 mg capsule Discontinued 100 MG PO Three times daily 21 04June 04, 2024 12:00am June 24, 2024 1:00pm Fluticasone-Umecli din-Vilanter (6 sources) Anticholinergic, Corticosteroid, beta2-Adrenergic Agonist Start: 05-10-2024 End: 10-01-2024 Fluticasone-Umecli din-Vilanter (Trelegy Ellipta) 100-62.5-25 mcg blister with device Discontinued 1 INH INHALATION Daily May 10, 2024 12:00am October 01, 2024 10:27am Start: 05-10-2024 End: 10-01-2024 Jdqntwjumjr-Oidkrcnco-Aaikoj er (Trelegy Ellipta) 100-62.5-25 mcg blister with device Discontinued 1 INH INHALATION Daily May 09, 2024 11:00pm October 01, 2024 9:27am Start: 05-10-2024 Fluticasone-Um eclidin-Vilanter (Trelegy Ellipta) 100-62.5-25 mcg blister with device Active 1 INH INHALATION Daily May 10, 2024 12:00am 120 actuat formoterol fumarate 0.0048 mg/actuat / glycopyrrolate 0.009 mg/actuat metered dose inhaler (15 sources) beta2-Adrenergic Agonist Start: 08-28-2023 End: 10-20-2023 Glycopyrrolate-Formoterol (Bevespi Aerosphere) 9-4.8 mcg Hfa Aerosol Inhaler Discontinued 2 PUFF INHALATION Twice daily August 28, 2023 1:00am October 20, 2023 3:29am loratadine 10 mg oral tablet (18 sources) Start: 06-21-2023 End: 06-23-2023 take 1 tablet by mouth once daily Loratadine 10 mg Tablet Discontinued 10 MG PO Daily June 21, 2023 12:00am June 23, 2023 1:28pm Tiotropium-Olodat angie (17 sources) Anticholinergic, beta2-Adrenergic Agonist Start: 07-31-2023 End: [...] 12:00am oxyCODONE hydrochloride 5 mg oral tablet (11 sources) Opioid Agonist Start: 10-24-2023 End: 05-10-2024 take 2.5 mg by mouth every three hours as needed for pain Oxycodone 5 mg Tablet Discontinued 2.5 MG PO Every three hours as needed for Pain 21 03October 24, 2023 May 10, 2024 9:56am Start: 10-24-2023 End: 05-10-2024 take 2.5 mg by mouth every three hours Oxycodone Discontinued 2.5 MG PO Every three hours 21 03October 24, 2023 May 10, 2024 9:56am pantoprazole 40 mg delayed release oral tablet (20 sources) Proton Pump Inhibitor Start: 06-21-2023 End: 12-16-2024 take 1 tablet by mouth once daily Pantoprazole 40 mg Tablet,Delayed Release (Dr/Ec) Discontinued 40 MG PO Daily June 21, 2023 12:00am May 10, 2024 10:40am 4 ml pembrolizumab 25 mg/ml injection (6 sources) Programmed Receptor-1 Blocking Antibody End: 12-16-2024 pembrolizumab (KEYTRUDA) 25 mg/mL chemo injection as directed Intravenous 12/16/2024 Discontinued (Therapy completed) predniSONE 10 mg oral tablet (5 sources) Start: 10-01-2024 End: 11-25-2024 take 1 tablet by mouth once daily Prednisone 10 mg tablet Discontinued 10 MG PO Daily October 01, 2024 1:00am November 25, 2024 3:55pm Start: 01-30-2024 End: 02-06-2024 take 1 tablet by mouth in the morning predniSONE (DELTASONE) 20 mg tablet Take 1 tablet (20 mg total) by mouth in the morning for 7 days. 7 tablet 01/30/2024 02/06/2024 Active Start: 12-26-2023 End: 01-02-2024 take 1 tablet by mouth in the morning predniSONE (DELTASONE) 20 mg tablet Indications: Acute recurrent frontal sinusitis Take 1 tablet (20 mg total) by mouth in the morning for 7 days. 7 tablet 0 12/26/2023 01/02/2024 Active RSVPreF3 antigen-AS01E, PF, (AREXVY, PF,) 120 mcg/0.5 mL suspension for reconstitution injection (2 sources) Start: 07-25-2023 End: 01-30-2024 RSVPreF3 antigen-AS01E, PF, (AREXVY, PF,) 120 mcg/0.5 mL suspension for reconstitution injection Inject 0.5 mL into the appropriate muscle once. 07/25/2023 01/30/2024 Discontinued (Discontinued by another clinician) Start: 07-25-2023 RSVPreF3 antig en-AS01E, PF, (AREXVY, PF,) 120 mcg/0.5 mL suspension for reconstitution injection Inject 0.5 mL into the appropriate muscle once. 0 07/25/2023 Active Sennosides (Senna Laxative) 8.6 mg Tablet (11 sources) Start: 10-24-2023 End: 10-01-2024 take 1 tablet by mouth twice daily as needed for constipation Sennosides (Senna Laxative) 8.6 mg Tablet Discontinued 8.6 MG PO Twice daily as needed for Constipation October 24, 2023 1:00am October 01, 2024 10:28am Start: 10-24-2023 End: 10-01-2024 take 1 tablet by mouth twice daily as needed for constipation Sennosides (Senna Laxative) 8.6 mg Tablet Discontinued 8.6 MG PO Twice daily as needed for Constipation October 24, 2023 12:00am October 01, 2024 9:28am Start: 10-24-2023 take 1 tablet by mouth twice d aily Sennosides (Senna Laxative) 8.6 mg Tablet Active 8.6 MG PO Twice daily October 24, 2023 1:00am Start: 10-24-2023 take 1 tablet by mouth twice d aily Sennosides (Senna Laxative) 8.6 mg Tablet Active 8.6 MG PO Twice daily October 24, 2023 12:00am sulfamethoxazole 800 mg / trimethoprim [...] te Episodic/Chronic Acute and unspecified renal failure (20 sources) Nephrotoxic acute renal failure; Translations: [Other acute kidney failure] Onset: 01-30-2024 10-20-2023 Episodic Acute myocardial infarction (7 sources) Non-ST elevation (NSTEMI) myocardial infarction; Translations: [Myocardial infarction] Onset: 02-02-2023 02-09-2023 Chronic Administrative/social admission (20 sources) Advance directive discussed with patient; Translations: [Other specified counseling] Onset: 01-30-2024 10-23-2023 Episodic Allergic reactions (1 source) Allergy status to other antibiotic agents status; Translations: [ALLERGY STATUS OTH ANTIBIOTIC AGENT] Onset: 02-02-2023 Episodic Anxiety disorders (2 sources) Anxiety disorder, unspecified; Translations: [Anxiety] Onset: 02-02-2023 03-21-2024 Chronic Cancer of kidney and renal pelvis [...] 02-02-2023 10-19-2023 Chronic Congestive heart failure; nonhypertensive (20 sources) Acute on chronic systolic (congestive) heart failure; Translations: [Acute systolic (congestive) heart failure] Onset: 01-25-2023 Resolved: 02-07-2023 Chronic Coronary atherosclerosis and other heart disease (8 sources) Acute coronary syndrome; Translations: [Acute ischemic heart disease, unspecified] Onset: 01-25-2023 02-06-2023 Chronic Deficiency and other anemia (20 sources) Iron deficiency anemia; Translations: [Iron deficiency anemia, unspecified] Onset: 01-30-2024 2023 Episodic Deficiency and other anemia (16 sources) Iron deficiency anemia, unspecified; Translations: [Iron deficiency anemia, unspecified] 10-05-2023 Episodic Fluid and electrolyte disorders (20 sources) Hypo-osmolality and hyponatremia; Translations: [Hyponatremia] Onset: 02-02-2023 10-05-2023 Episodic Hypertension with complications and secondary hypertension (4 sources) Hypertensive heart disease with heart failure; Translations: [Benign hypertensive heart disease] Onset: 04-23-2024 Chronic Immunizations and screening for infectious disease (2 sources) Contact with or exposure to other viral diseases; Translations: [Exposure to 2019 novel coronavirus] 06-04-2024 Episodic Maintenance chemotherapy; radiotherapy (20 sources) Patient encounter status; Translations: [Encounter for antineoplastic chemotherapy] 10-05-2023 Chronic Nausea and vomiting (20 sources) Nausea; Translations: [Intractable nausea and vomiting] Onset: 02-02-2023 10-19-2023 Episodic Other aftercare (11 sources) Drug therapy finding; Translations: [Other exterminator (current) drug therapy] 10-20-2023 Episodic Other aftercare (4 sources) Other shelter (current) drug therapy; Translations: [Long-term (current) use of other medications] 10-19-2023 Episodic Other diseases of kidney and ureters (11 sources) Renal mass; Translations: [Other specified disorders of kidney and ureter] Onset: 04-24-2023 07-11-2023 Chronic Other diseases of kidney and ureters (8 sources) Other specified disorders of kidney and ureter; Translations: [Unspecified disorder of kidney and ureter] 07-31-2023 Chronic Other gastrointestinal disorders (16 sources) Constipation; Translations: [Constipation, unspecified] Onset: 01-30-2024 10-19-2023 Episodic Other gastrointestinal disorders (4 sources) Constipation, unspecified; Translations: [Constipation, unspecified] 10-19-2023 Episodic Other liver diseases (15 sources) Enzyme level - finding; Translations: [Elevated transaminase measurement] 10-20-2023 Episodic Other nervous system disorders (16 sources) Pain due to neoplastic disease; Translations: [Neoplasm related pain (acute) (chronic)] Onset: 01-30-2024 10-20-2023 Chronic Other nervous system disorders (4 sources) Neoplasm related pain (acute) (chronic); Translations: [Neoplasm related pain (acute) (chronic)] 10-19-2023 Chronic Other non-traumatic joint disorders (1 source) Arthropathy of multiple joints; Translations: [Arthropathy, unspecified] 12-16-2024 Chronic Other non-traumatic joint disorders (1 source) Arthropathy, unspecified; Translations: [Arthropathy, unspecified] Onset: 12-16-2024 Chronic Other nutritional; endocrine; and metabolic disorders (2 sources) Morbid obesity; Translations: [Morbid (severe) obesity due to excess calories] Onset: 12-16-2024 12-16-2024 Chronic Other screening for suspected conditions (not mental disorders or infectious disease) (20 sources) Raised cardiac enzyme or marker; Translations: [Other specified abnormal findings of blood chemistry] 10-19-2023 Episodic Katey-; endo-; and myocarditis; cardiomyopathy (except that caused by tuberculosis or sexually transmitted disease) (20 sources) Cardiomyopathy; Translations: [Other cardiomyopathies] Onset: 01-30-2024 [...] 02-02-2023 Episodic Respiratory failure; insufficiency; arrest (adult) (20 sources) Chronic hypoxemic respiratory failure; Translations: [Chronic respiratory failure with hypoxia] Onset: 01-30-2024 Resolved: 12-16-2024 10-19-2023 Chronic Comment on above: 2 L Oxygen via NC at all times. Septicemia (except in labor) (3 sources) Other [...] Classification Problem Date Documented Da te Episodic/Chronic Mood disorders (6 sources) Mood disorders Onset: 01-30-2024 Resolved: 12-16-2024 01-30-2024 Other lower respiratory disease (2 sources) Other forms of dyspnea; Translations: [Other forms of dyspnea] Onset: 04-23-2024 Episodic Other lower respiratory disease (1 source) Cough Onset: 01-30-2024 Episodic Other upper respiratory disease (1 source) Nasal congestion Onset: 12-26-2023 Episodic Other upper respiratory infections (3 sources) Acute upper respiratory infection, unspecified; Translations: [Acute recurrent frontal sinusitis] Onset: 02-02-2023 12-26-2023 Episodic Respiratory failure; insufficiency; arrest (adult) (8 sources) Acute respiratory failure with hypoxia; Translations: [Acute respiratory failure with hypercapnia] Onset: 01-25-2023 Resolved: 02-07-2023 02-07-2023 Episodic Unclassified (1 source) Onset: 12-16-2024 12-16-2024 Viral infection (8 sources) Other viral agents as the cause of diseases classified elsewhere; Translations: [COVID-19] Onset: 01-25-2023 06-04-2024 Episodic Results Test Name Value Interpretation Reference Range Facility Office Visiton 11-04-2024 Follow-up visit [id number] Perla Ibarra 1955 F Date Provider Department Center 11/04/2024 [facility]8-AMMY BRIDGES CARD [facility] Family History Problem Relation Age of Onset Tuberculosis Mother Heart attack Brother Heart failure Maternal Grandmother Heart attack Maternal Grandfather Family Status - Relation Status Age at Mother Brother Maternal Grandmother Maternal Grandfather Level of Service:14046 MS OFFICE/OUTPATIENT ESTABLISHED LOW MDM 20 MIN Normal [facility] Adrenocorticotropic Hormone PLon 10-01-[address] 28.6 pg/mL Normal 7.2-63.3 [facility] Comment on above: Result Comment: ACTH reference interval for samples collected between 7 and 10 AM. Performed at: [facility] [address] [place] [address] [id number] Consultant: Juan Hendricks PhD, Phone: [phone] PERFORMED BY: [place] [address] PATHOLOGIST SHEAR HELPER SHIRA GALLO M.D. Performed By: #### T 4F, TSH3, JER, CMP #### [address] #### ACTH #### [facility] , Adrenocorticotropic hormone (ACTH) measurementOrdered By: Aries Chavez on 10-01-2024 Adrenocorticotropic Hormone 28.6 pg/mL 7.2-63.3 [facility] Comment on above: ACTH reference inter wendy for samples collected between 7 and10 AM.Performed at: [employer] [id number] Director: Juan Hendricks PhD, Phone: [phone] Alanine aminotransferase [En zymatic activity/volume] in Serum or PlasmaOrdered By: Aries Chavez on 10-01-2024 ALT [Catalytic activity/Vol] Alanine aminotransferase [Enzymatic activity/volume] in Serum or Plasma [facility] Albumin [Mass/volume] in Ser um or Plasma by Bromocresol green (BCG) dye binding methoOrdered By: Aries Chavez on 10-01-2024 Albumin BCG dye [Mass/Vol] Albumin [Mass/volume] in Serum or Plasma by Bromocresol green (BCG) dye binding metho 3.5-5.7 [facility] Alkaline phosphatase [Enzyma tic activity/volume] in Serum or PlasmaOrdered By: Aries Chavez on 10-01-2024 ALP [Catalytic activity/Vol] Alkaline phosphatase [Enzymatic activity/volume] in Serum or Plasma 34-104 [facility] Aspartate aminotransferase [ Enzymatic activity/volume] in Serum or PlasmaOrdered By: Aries Chavez on 10-01-2024 AST [Catalytic activity/Vol] Aspartate aminotransferase [Enzymatic activity/volume] in Serum or Plasma 13-39 [facility] Basophils Auto (Bld) [#/Vol] Ordered By: Aries Chavez on 10-01-2024 Basophils (Bld) [#/Vol] Automated basophil count 0.0-0.2 [facility] Basophils/100 WBC Auto (Bld) Ordered By: Aries Chavez on 10-01-2024 Basophils/100 WBC (Bld) Automated basophil % . [facility] Bilirubin.total [Mass/volume ] in Serum or PlasmaOrdered By: Aries Chavez on 10-01-2024 Bilirubin [Mass/Vol] Bilirubin.total [Mass/volume] in Serum or Plasma 0.3-1.0 [facility] CBC W Auto Differential pane l (Bld)on 10-01-2024 Basophils (Bld) [#/Vol] 0.1 10*3/uL 0.0 - 0.2 10*3/uL [facility] Basophils/100 WBC Manual cnt (Syn fld) 2 % . [facility] Eosinophils (Bld) [#/Vol] 0.9 10*3/uL High 0.0 - 0.45 10*3/uL [facility] Eosinophils/100 WBC Manual cnt (Syn fld) 12.6 % . [facility] Erythrocyte distribution width (RBC) [Ratio] 13.2 % 11.9 - 15.3 % [facility] Hematocrit (Bld) [Volume fraction] 35.5 % 34.0 - 46.4 % [facility] Hemoglobin (Bld) [Mass/Vol] 11.7 g/dL Low 11.8 - 15.4 g/dL [facility] Interpretation and review of laboratory results Abnormal [facility] Lymphocytes (Bld) [#/Vol] 1.1 10*3/uL 1.00 - 4.8 10*3/uL [facility] Lymphocytes/100 WBC Manual cnt (Syn fld) 15.3 % . [facility] MCH (RBC) [Entitic mass] 28.9 pg 24.7 - 34.3 pg [facility] MCHC (RBC) [Mass/Vol] 32.8 g/dL 32.0 - 35.0 g/dL [facility] MCV (RBC) [Entitic vol] 88 fL 80 - 100 fL [facility] Monocytes (Bld) [#/Vol] 0.7 10*3/uL 0.0 - 0.8 10*3/uL [facility] Monocytes+Macrophages/1 00 WBC Manual cnt (Syn fld) 10.2 % . [facility] Neutrophils (Bld) [#/Vol] 4.4 10*3/uL 1.8 - 7.7 10*3/uL [facility] Neutrophils/100 WBC Manual cnt (Syn fld) 59.9 % . [facility] NRBC 0.1 /100{WBC} 0 - 0.5 /100{WBC} [facility] Platelet mean volume (Bld) [Entitic vol] 8.8 fL 6.3 - 10.7 fL [facility] Platelets (Bld) [#/Vol] 261 10*3/uL 150 - 450 10*3/uL [facility] RBC LM.HPF (Urine sed) [#/Area] 4.04 10*6/uL 3.60 - 5.00 10*6/uL [facility] WBC (Bld) [#/Vol] 7.3 10*3/uL 3.8 - 11.6 10*3/uL [facility] WBC LM.HPF (Urine sed) [#/Area] 7.3 10*3/uL 3.8 - 11.6 10*3/uL [facility] Calcium [Mass/volume] in Ser um or PlasmaOrdered By: Aries Chavez on 10-01-2024 Calcium [Mass/Vol] Calcium [Mass/volume ] in Serum or Plasma 8.6-10.3 [facility] Carbon dioxide, total [Moles /volume] in Serum or PlasmaOrdered By: Aries Chavez on 10-01-2024 CO2 [Moles/Vol] Carbon dioxide, tota l [Moles/volume] in Serum or Plasma 21.0-31.0 [facility] Chloride [Moles/volume] in S leena or PlasmaOrdered By: Aries Chavez on 10-01-2024 Chloride [Moles/Vol] Chloride [Moles/vol ume] in Serum or Plasma 98-107 [facility] Complete Blood Count Auto Di ffon 10-01-2024 Basophils (Bld) [#/Vol] 0.1 10*3/uL Normal 0.0-0.2 [facility] Comment on above: Result Comment: PERF ORMED BY: [place] [address] PATHOLOGIST SHEAR HELPER SHIRA GALLO M.D. Performed By: #### C BC, CMP #### [address] Basophils/100 WBC (Bld) 2.0 % Normal . [facility] Comment on above: Performed By: #### C BC, CMP #### [place] [address] [place] Eosinophils (Bld) [#/Vol] 0.9 10*3/uL High 0.0-0.45 [facility] Comment on above: Performed By: #### C BC, CMP #### [address] Eosinophils/100 WBC (Bld) 12.6 % Normal . [facility] Comment on above: Performed By: #### C BC, CMP #### [address] Erythrocyte distribution width (RBC) [Ratio] 13.2 % Normal 11.9-15.3 [facility] Comment on above: Performed By: #### C BC, CMP #### [address] Hematocrit (Bld) [Volume fraction] 35.5 % Normal 34.0-46.4 [facility] Comment on above: Performed By: #### C BC, CMP #### [facility] [address] Hemoglobin (Bld) [Mass/Vol] 11.7 g/dL Low 11.8-15.4 [facility] Comment on above: Performed By: #### C BC, CMP #### [address] Lymphocytes (Bld) [#/Vol] 1.1 10*3/uL Normal 1.00-4.8 [facility] Comment on above: Performed By: #### C BC, CMP #### [place] [address] [place] Lymphocytes/100 WBC (Bld) 15.3 % Normal . [facility] Comment on above: Performed By: #### C BC, CMP #### [address] MCH (RBC) [Entitic mass] 28.9 pg Normal 24.7-34.3 [facility] Comment on above: Performed By: #### C BC, CMP #### [address] MCV (RBC) [Entitic vol] 88.0 fL Normal 80-100 [facility] Comment on above: Performed By: #### C BC, CMP #### [address] Mean Corpuscular HGB Conc 32.8 g/dL Normal 32.0-35.0 [facility] Comment on above: Performed By: #### C BC, CMP #### [place] [address] [place] Monocytes (Bld) [#/Vol] 0.7 10*3/uL Normal 0.0-0.8 [facility] Comment on above: Performed By: #### C BC, CMP #### [place] [address] [place] Monocytes/100 WBC (Bld) 10.2 % Normal . [facility] Comment on above: Performed By: #### C BC, CMP #### [facility] [address] [place] [address] [place] Neutrophils (Bld) [#/Vol] 4.4 10*3/uL Normal 1.8-7.7 [facility] Comment on above: Performed By: #### C BC, CMP #### [facility] [address] [place] [id number] [place] Neutrophils/100 WBC (Bld) 59.9 % Normal . [facility] Comment on above: Performed By: #### C BC, CMP #### [facility] [address] NRBC% 0.1 /100{WBC} Normal 0-0.5 [facility] Comment on above: Performed By: #### C BC, CMP #### [facility] [address] Platelet mean volume (Bld) [Entitic vol] 8.8 fL Normal 6.3-10.7 [facility] Comment on above: Performed By: #### C BC, CMP #### [facility] [address] [place] [address] [place] Platelets (Bld) [#/Vol] 261 10*3/uL Normal 150-450 [facility] Comment on above: Performed By: #### C BC, CMP #### [facility] [address] [place] [id number] [place] RBC (Bld) [#/Vol] 4.04 10*6/uL Normal 3.60-5.00 [facility] Comment on above: Performed By: #### C BC, CMP #### [facility] [address] [place] [id number] [place] WBC (Bld) [#/Vol] 7.3 10*3/uL Normal 3.8-11.6 [facility] Comment on above: Performed By: #### C BC, CMP #### [facility] [address] [place] [id number] [facility] Comprehensive Metabolic Pane malcom 10-01-2024 Albumin [Mass/Vol] 3.6 g/dL Normal 3.5-5.7 [facility] Comment on above: Performed By: #### T 4F, TSH3, JER, CMP #### [facility] [address] [place] [address] [place] #### ACTH #### [facility] , Albumin/Globulin [Mass ratio] 1.0 {ratio} Normal [facility] Comment on above: Performed By: #### T 4F, TSH3, JER, CMP #### [facility] [address] [place] [address] [place] #### ACTH #### [facility] , ALP [Catalytic activity/Vol] 78 U/L Normal 34-104 [facility] Comment on above: Performed By: #### T 4F, TSH3, JER, CMP #### [address] #### ACTH #### [facility] , ALT [Catalytic activity/Vol] 10 U/L Normal 7-52 [facility] Comment on above: Performed By: #### T 4F, TSH3, JER, CMP #### [facility] [address] [place] [address] #### ACTH #### [facility] , Anion gap [Moles/Vol] 8.7 mmol/L Normal 6.0-15.0 [facility] Comment on above: Performed By: #### T 4F, TSH3, JER, CMP #### [facility] [address] [place] [address] [place] #### ACTH #### [facility] , AST [Catalytic activity/Vol] 17 U/L Normal 13-39 [facility] Comment on above: Performed By: #### T 4F, TSH3, JER, CMP #### [facility] [address] [place] [address] #### ACTH #### [facility] , Bilirubin [Mass/Vol] 0.5 mg/dL Normal 0.3-1.0 [facility] Comment on above: Performed By: #### T 4F, TSH3, JER, CMP #### [facility] [address] [place] [address] [place] #### ACTH #### [facility] , Calcium [Mass/Vol] 9.0 mg/dL Normal 8.6-10.3 [facility] Comment on above: Performed By: #### T 4F, TSH3, JER, CMP #### [facility] [address] [place] [address] [place] #### ACTH #### [facility] , Chloride [Moles/Vol] 98 mmol/L Normal 98-107 [facility] Comment on above: Performed By: #### T 4F, TSH3, JER, CMP #### [address] #### ACTH #### [facility] , CO2 [Moles/Vol] 28.4 mmol/L Normal 21.0-31.0 [facility] Comment on above: Performed By: #### T 4F, TSH3, JER, CMP #### [facility] [address] [place] [address] [place] #### ACTH #### [facility] , Creatinine [Mass/Vol] 0.95 mg/dL Normal 0.60-1.20 [facility] Comment on above: Performed By: #### T 4F, TSH3, JER, CMP #### [facility] [address] [place] [address] [place] #### ACTH #### [facility] , Creatinine Clr Calc Pharmacy 61.44 Normal [facility] Comment on above: Performed By: #### T 4F, TSH3, JER, CMP #### [facility] [address] [place] [address] [place] #### ACTH #### [facility] , GFR/1.73 sq M.predicted MDRD (S/P/Bld) [Vol rate/Area] mL/min/{1.73_m2} Normal [facility] Comment on above: Performed By: #### T 4F, TSH3, JER, CMP #### [place] [address] [place] #### ACTH #### [facility] , Globulin (S) [Mass/Vol] 3.5 g/dL Normal T [facility] Comment on above: Performed By: #### T 4F, TSH3, JER, CMP #### [place] [address] [place] #### ACTH #### [facility] , Glucose [Mass/Vol] 92 mg/dL Normal 70-100 [facility] Comment on above: Result Comment: [facility] Glucose Reference Range is dependent on time and content of last meal. Glucose of more than 200 mg/dL in a nonstressed, ambulatory subject supports the diagnosis of Diabetes Mellitus. ADA recommended reference range Performed By: #### T 4F, TSH3, JER, CMP #### [place] [address] [place] #### ACTH #### [facility] , Potassium [Moles/Vol] 4.1 mmol/L Normal 3.5-5.1 [facility] Comment on above: Performed By: #### T 4F, TSH3, JER, CMP #### [place] [address] [place] #### ACTH #### [facility] , Protein [Mass/Vol] 7.1 g/dL Normal 6.4-8.9 [facility] Comment on above: Performed By: #### T 4F, TSH3, JER, CMP #### [place] [address] [place] #### ACTH #### [facility] , Sodium [Moles/Vol] 131 mmol/L Low 136-145 [facility] Comment on above: Performed By: #### T 4F, TSH3, JER, CMP #### [place] [address] [place] #### ACTH #### [facility] , Urea nitrogen [Mass/Vol] 18 mg/dL Normal 7-25 [facility] Comment on above: Performed By: #### T 4F, TSH3, JER, CMP #### [address] #### ACTH #### [facility] , Cortisolon 10-01-2024 Cortisol 12.0 ug/dL Normal [facility] Comment on above: Result Comment: Refe rence range: AM 6 - 24 ug/dl PM <10 ug/dl [facility] crop scout and method: AMRITA UNICEL DXI, POLYCLONAL ANTIBODY CORTISOL ASSAY. PERFORMED BY: [place] [address] PATHOLOGIST SHEAR HELPER SHIRA GALLO M.D. Performed By: #### T 4F, TSH3, JER, CMP #### [address] #### ACTH #### [facility] , Cortisol [Mass/volume] in Se rum or PlasmaOrdered By: Aries Chavez on 10-01-2024 Cortisol [Mass/Vol] Random cortisol measurement [facility] Comment on above: [facility] crop scout and method:AMRITA UNICEL DXI, POLYCLONAL ANTIBODY CORTISOL ASSAY.Reference range: AM 6 - 24 ug/dl PM <10 ug/dl Creatinine [Mass/volume] in Serum or PlasmaOrdered By: Aries Chavez on 10-01-2024 Creatinine [Mass/Vol] Creatinine [Mass/v olume] in Serum or Plasma 0.60-1.20 [facility] Eosinophils Auto (Bld) [#/Vo l]Ordered By: Aries Chavez on 10-01-2024 Eosinophils (Bld) [#/Vol] Automated eosinophil count High 0.0-0.45 [facility] Eosinophils/100 WBC Auto (Bl d)Ordered By: Aries Chavez on 10-01-2024 Eosinophils/100 WBC (Bld) Automated eosinophil % . [facility] Erythrocyte distribution wid th Auto (RBC) [Ratio]Ordered By: Aries Chavez on 10-01-2024 Erythrocyte distribution width (RBC) [Ratio] Erythrocyte distribution width [Ratio] by Automated count 11.9-15.3 [facility] Free T4 (Free Thyroxine)on Free T4 [Mass/Vol] 0.45 ng/dL Low 0.61-1.12 [facility] Comment on above: Performed By: #### T 4F, TSH3, JER, CMP #### [facility] [address] #### ACTH #### [facility] , Globulin Calc (S) [Mass/Vol] Ordered By: Aries Chavez on 10-01-2024 Globulin (S) [Mass/Vol] Serum globulin m easurement by calculation (mass/volume) [facility] Glucose [Mass/volume] in Ser um or PlasmaOrdered By: Aries Chavez on 10-01-2024 Glucose [Mass/Vol] Glucose [Mass/volume ] in Serum or Plasma 70-100 [facility] Comment on above: ADA recommended refe rence rangeRandom Glucose Reference Range is dependent on time and content of last meal. Glucose of more than 200 mg/dL in a nonstressed, ambulatory subject supports the diagnosis of Diabetes Mellitus. Hematocrit Auto (Bld) [Volum e fraction]Ordered By: Aries Chavez on 10-01-2024 Hematocrit (Bld) [Volume fraction] Hematocrit [Volume Fraction] of Blood by Automated count 34.0-46.4 [facility] Hemoglobin [Mass/volume] in BloodOrdered By: Aries Chavez on 10-01-2024 Hemoglobin (Bld) [Mass/Vol] Hemoglobin [Mass/volume] in Blood Low 11.8-15.4 [facility] Leukocytes [#/volume] correc gabriel for nucleated erythrocytes in Blood by Automated counOrdered By: Aries Chavez on 10-01-2024 WBC corrected for nucl RBC Auto (Bld) [#/Vol] Leukocytes [#/volume] corrected for nucleated erythrocytes in Blood by Automated coun 3.8-11.6 [facility] Lymphocytes Auto (Bld) [#/Vo l]Ordered By: Aries Chavez on 10-01-2024 Lymphocytes (Bld) [#/Vol] Lymphocytes [#/volume] in Blood by Automated count 1.00-4.8 [facility] Lymphocytes/100 WBC Auto (Bl d)Ordered By: Aries Chavez on 10-01-2024 Lymphocytes/100 WBC (Bld) Lymphocytes/100 leukocytes in Blood by Automated count . [facility] MCH Auto (RBC) [Entitic mass ]Ordered By: Aries Chavez on 10-01-2024 MCH (RBC) [Entitic mass] MCH [Entitic mass] by Automated count 24.7-34.3 [facility] MCHC Auto (RBC) [Mass/Vol]Or dered By: Aries Chavez on 10-01-2024 MCHC (RBC) [Mass/Vol] MCHC [Mass/volume] by Automated count 32.0-35.0 [facility] MCV Auto (RBC) [Entitic vol] Ordered By: Aries Chavez on 10-01-2024 MCV (RBC) [Entitic vol] MCV [Entitic vol ume] by Automated count 80-100 [facility] Monocytes Auto (Bld) [#/Vol] Ordered By: Aries Chavez on 10-01-2024 Monocytes (Bld) [#/Vol] Automated blood monocyte count 0.0-0.8 [facility] Monocytes/100 WBC Auto (Bld) Ordered By: Aries Chavez on 10-01-2024 Monocytes/100 WBC (Bld) Automated monocyte % . [facility] Neutrophils Auto (Bld) [#/Vo l]Ordered By: Aries Chavez on 10-01-2024 Neutrophils (Bld) [#/Vol] Neutrophils [#/volume] in Blood by Automated count 1.8-7.7 [facility] Neutrophils/100 WBC Auto (Bl d)Ordered By: Aries Chavez on 10-01-2024 Neutrophils/100 WBC (Bld) Automated neutrophil % . [facility] No Panel InformationOrdered By: Aries Chavez on 10-01-2024 Estimated GFR (CKD-EPI) > 60.0 mL/Min [facility] Creatinine Clearance (Chem 61.44 [facility] Nucleated erythrocytes [Pres ence] in Blood by Automated countOrdered By: Aries Chavez on 10-01-2024 Nucleated RBC Auto Ql (Bld) Nucleated erythrocytes [Presence] in Blood by Automated count 0-0.5 [facility] Platelet mean volume Auto (B ld) [Entitic vol]Ordered By: Aries Chavez on 10-01-2024 Platelet mean volume (Bld) [Entitic vol] Platelet mean volume [Entitic volume] in Blood by Automated count 6.3-10.7 [facility] Platelets Auto (Bld) [#/Vol] Ordered By: Aries Chavez on 10-01-2024 Platelets (Bld) [#/Vol] Platelets [#/vol ume] in Blood by Automated count 150-450 [facility] Potassium [Moles/volume] in Serum or PlasmaOrdered By: Aries Chavez on 10-01-2024 Potassium [Moles/Vol] Potassium [Moles/v olume] in Serum or Plasma 3.5-5.1 [facility] Protein [Mass/volume] in Ser um or PlasmaOrdered By: Aries Chavez on 10-01-2024 Protein [Mass/Vol] Protein [Mass/volume ] in Serum or Plasma 6.4-8.9 [facility] RBC Auto (Bld) [#/Vol]Ordere d By: Aries Chavez on 10-01-2024 RBC (Bld) [#/Vol] Erythrocytes [#/volu me] in Blood by Automated count 3.60-5.00 [facility] Serum or plasma albumin/glob ulin mass ratioOrdered By: Aries Chavez on 10-01-2024 Albumin/Globulin [Mass ratio] Serum or plasma albumin/globulin mass ratio [facility] Serum or plasma anion gap de terminationOrdered By: Aries Chavez on 10-01-2024 Anion gap [Moles/Vol] Serum or plasma an ion gap determination 6.0-15.0 [facility] Sodium [Moles/volume] in Ser um or PlasmaOrdered By: Aries Chavez on 10-01-2024 Sodium [Moles/Vol] Sodium [Moles/volume ] in Serum or Plasma Low 136-145 [facility] Thyroid Stimulating Hormoneo n 10-01-2024 TSH Qn 45.50 m[IU]/L High 0.45-5.33 [facility] Comment on above: Performed By: #### T 4F, TSH3, JER, CMP #### [facility] [address] #### ACTH #### [facility] , Thyrotropin [Units/volume] i n Serum or PlasmaOrdered By: Aries Chavez on 10-01-2024 TSH Qn Thyrotropin [Units/v olume] in Serum or Plasma High 0.45-5.33 [facility] Thyroxine (T4) free [Mass/vo lume] in Serum or PlasmaOrdered By: Aries Chavez on 10-01-2024 Free T4 [Mass/Vol] Thyroxine (T4) free [Mass/volume] in Serum or Plasma Low 0.61-1.12 [facility] Urea nitrogen [Mass/volume] in Serum or PlasmaOrdered By: Aries Chavez on 10-01-2024 Urea nitrogen [Mass/Vol] Urea nitrogen [Mass/volume] in Serum or Plasma 7-25 [facility] WBC Auto (Bld) [#/Vol]Ordere d By: Aries Chavez on 10-01-2024 WBC (Bld) [#/Vol] Leukocytes [#/volume ] in Blood by Automated count 3.8-11.6 [facility] ADRENOCORTICOTROPIC HORMONE PLon 06-19-[address] 51.6 pg/mL 7.2 - 63.3 pg/mL [facility] Comment on above: ACTH reference inter wendy for samples collected between 7 and 10 AM. Performed at: [address] [id number] Consultant: Juan Hendricks PhD, Phone: [phone] [facility] Adrenocorticotropic Hormone PLon 06-18-[address] 51.6 pg/mL Normal 7.2-63.3 [facility] Comment on above: Result Comment: ACTH reference interval for samples collected between 7 and 10 AM. Performed at: - [facility] [id number] Consultant: Juan Hendricks PhD, Phone: [phone] PERFORMED BY: [place] [address] PATHOLOGIST SHEAR HELPER STEFANO HOLT M.D. Performed By: #### C BC, CMP #### [address] Alanine aminotransferase [En zymatic activity/volume] in Serum or PlasmaOrdered By: Aries Chavez on 06-18-2024 ALT [Catalytic activity/Vol] 11 U/L Normal 7-52 [facility] Comment on above: Performed By: #### T 4F, JER, CMP, TSH3 #### [address] #### ACTH #### [facility] , Albumin [Mass/volume] in Ser um or Plasma by Bromocresol green (BCG) dye binding methoOrdered By: Aries Chavez on 06-18-2024 Albumin BCG dye [Mass/Vol] 3.7 g/dL 3.5-5.7 [facility] Alkaline phosphatase [Enzyma tic activity/volume] in Serum or PlasmaOrdered By: Aries Chavez on 06-18-2024 ALP [Catalytic activity/Vol] 76 U/L Normal 34-104 [facility] Comment on above: Performed By: #### T 4F, JER, CMP, TSH3 #### [place] [address] [place] #### ACTH #### [facility] , Aspartate aminotransferase [ Enzymatic activity/volume] in Serum or PlasmaOrdered By: Aries Chavez on 06-18-2024 AST [Catalytic activity/Vol] 19 U/L Normal 13-39 [facility] Comment on above: Performed By: #### T 4F, JER, CMP, TSH3 #### [place] [address] [place] #### ACTH #### [facility] , Automated basophil %Ordered By: Aries Chavez on 06-18-2024 Basophils/100 WBC (Bld) 1.4 % Normal . [facility] Comment on above: Performed By: #### T 4F, TSH3, JER, CMP #### [address] #### ACTH #### [facility] , Automated basophil countOrde red By: Aries Chavez on 06-18-2024 Basophils (Bld) [#/Vol] 0.1 10*3/uL Normal 0.0-0.2 [facility] Comment on above: Result Comment: PERF ORMED BY: [place] [address] PATHOLOGIST SHEAR HELPER STEFANO HOLT M.D. Performed By: #### T 4F, TSH3, JER, CMP #### [address] #### ACTH #### [facility] , Automated blood monocyte cou ntOrdered By: Aries Chavez on 06-18-2024 Monocytes (Bld) [#/Vol] 0.8 10*3/uL Normal 0.0-0.8 [facility] Comment on above: Performed By: #### T 4F, TSH3, JER, CMP #### [place] [address] [place] #### ACTH #### [facility] , Automated eosinophil %Ordere d By: Aries Chavez on 06-18-2024 Eosinophils/100 WBC (Bld) 6.1 % Normal . [facility] Comment on above: Performed By: #### T 4F, TSH3, JER, CMP #### [place] [address] [place] #### ACTH #### [facility] , Automated eosinophil countOr dered By: Aries Chavez on 09-17-2024 Eosinophils (Bld) [#/Vol] 0.5 10*3/uL High 0.0-0.45 [facility] Comment on above: Performed By: #### T 4F, TSH3, JER, CMP #### [facility] [address] [place] [address] [place] #### ACTH #### [facility] , Automated monocyte %Ordered By: Aries Chaevz on 06-18-2024 Monocytes/100 WBC (Bld) 9.1 % Normal . [facility] Comment on above: Performed By: #### T 4F, TSH3, JER, CMP #### [facility] [address] [place] [address] [place] #### ACTH #### [facility] , Automated neutrophil %Ordere d By: Aries Chavez on 06-18-2024 Neutrophils/100 WBC (Bld) 70.9 % Normal . [facility] Comment on above: Performed By: #### T 4F, TSH3, JER, CMP #### [place] [address] [place] #### ACTH #### [facility] , Bilirubin.total [Mass/volume ] in Serum or PlasmaOrdered By: Aries Chavez on 06-18-2024 Bilirubin [Mass/Vol] 0.6 mg/dL Normal 0.3-1.0 [facility] Comment on above: Performed By: #### T 4F, JER, CMP, TSH3 #### [facility] [address] [place] [address] [place] #### ACTH #### [facility] , CBC W Auto Differential pane l (Bld)on 06-18-2024 Basophils (Bld) [#/Vol] 0.1 10*3/uL 0.0 - 0.2 10*3/uL [facility] Basophils/100 WBC Manual cnt (Syn fld) 1.4 % . [facility] Eosinophils (Bld) [#/Vol] 0.5 10*3/uL High 0.0 - 0.45 10*3/uL [facility] Eosinophils/100 WBC Manual cnt (Syn fld) 6.1 % . [facility] Erythrocyte distribution width (RBC) [Ratio] 13.3 % 11.9 - 15.3 % [facility] Hematocrit (Bld) [Volume fraction] 36.5 % 34.0 - 46.4 % [facility] Hemoglobin (Bld) [Mass/Vol] 12.2 g/dL 11.8 - 15.4 g/dL [facility] Interpretation and review of laboratory results Abnormal [facility] Lymphocytes (Bld) [#/Vol] 1.1 10*3/uL 1.00 - 4.8 10*3/uL [facility] Lymphocytes/100 WBC Manual cnt (Syn fld) 12.5 % . [facility] MCH (RBC) [Entitic mass] 29.6 pg 24.7 - 34.3 pg [facility] MCHC (RBC) [Mass/Vol] 33.4 g/dL 32.0 - 35.0 g/dL [facility] MCV (RBC) [Entitic vol] 88.8 fL 80 - 100 fL [facility] Monocytes (Bld) [#/Vol] 0.8 10*3/uL 0.0 - 0.8 10*3/uL [facility] Monocytes+Macrophages/1 00 WBC Manual cnt (Syn fld) 9.1 % . [facility] Neutrophils (Bld) [#/Vol] 6.0 10*3/uL 1.8 - 7.7 10*3/uL [facility] Neutrophils/100 WBC Manual cnt (Syn fld) 70.9 % . [facility] NRBC 0.0 /100{WBC} 0 - 0.5 /100{WBC} [facility] Platelet mean volume (Bld) [Entitic vol] 7.1 fL 6.3 - 10.7 fL [facility] Platelets (Bld) [#/Vol] 342 10*3/uL 150 - 450 10*3/uL [facility] RBC LM.HPF (Urine sed) [#/Area] 4.11 /[HPF] 3.60 - 5.00 [facility] WBC (Bld) [#/Vol] 8.4 10*3/uL 3.8 - 11.6 10*3/uL [facility] WBC LM.HPF (Urine sed) [#/Area] 8.4 10*3/uL 3.8 - 11.6 10*3/uL [facility] Calcium [Mass/volume] in Ser um or PlasmaOrdered By: Aries Scott on 06-18-2024 Calcium [Mass/Vol] 9.1 mg/dL Normal 8.6-10.3 [facility] Comment on above: Performed By: #### T 4F, JER, CMP, TSH3 #### [facility] [address] [place] [address] [place] #### ACTH #### [facility] , Carbon dioxide, total [Moles /volume] in Serum or PlasmaOrdered By: Aries Chavez on 06-18-2024 CO2 [Moles/Vol] 29.4 mmol/L Normal 21.0-31.0 [facility] Comment on above: Performed By: #### T 4F, JER, CMP, TSH3 #### [facility] [address] [place] [address] [place] #### ACTH #### [facility] , Chloride [Moles/volume] in S leena or PlasmaOrdered By: Aries Chavez on 06-18-2024 Chloride [Moles/Vol] 94 mmol/L Low 98-107 [facility] Comment on above: Performed By: #### T 4F, JER, CMP, TSH3 #### [address] #### ACTH #### [facility] , Complete Blood Count Auto Di ffon 06-18-2024 Mean Corpuscular HGB Conc 33.4 g/dL Normal 32.0-35.0 [facility] Comment on above: Performed By: #### T 4F, TSH3, JER, CMP #### [facility] [address] [place] [address] [place] #### ACTH #### [facility] , NRBC% 0.0 /100{WBC} Normal 0-0.5 [facility] Comment on above: Performed By: #### T 4F, TSH3, JER, CMP #### [address] #### ACTH #### [facility] , Comprehensive Metabolic Pane malcom 06-18-2024 Albumin [Mass/Vol] 3.7 g/dL Normal 3.5-5.7 [facility] Comment on above: Performed By: #### T 4F, JER, CMP, TSH3 #### [facility] [address] [place] [address] [place] #### ACTH #### [facility] , Creatinine Clr Calc Pharmacy 67.15 Normal [facility] Comment on above: Performed By: #### T 4F, JER, CMP, TSH3 #### [address] #### ACTH #### [facility] , GFR/1.73 sq M.predicted MDRD (S/P/Bld) [Vol rate/Area] mL/min/{1.73_m2} Normal [facility] Comment on above: Performed By: #### T 4F, JER, CMP, TSH3 #### [address] #### ACTH #### [facility] , Cortisolon 06-18-2024 Cortisol 18.8 ug/dL Normal [facility] Comment on above: Result Comment: Refe rence range: AM 6 - 24 ug/dl PM <10 ug/dl [facility] crop scout and method: AMRITA UNICEL DXI, POLYCLONAL ANTIBODY CORTISOL ASSAY. PERFORMED BY: [place] [address] PATHOLOGIST SHEAR HELPER STEFANO HOLT M.D. Performed By: #### C BC, CMP #### [address] Creatinine [Mass/volume] in Serum or PlasmaOrdered By: Aries Chavez on 06-18-2024 Creatinine [Mass/Vol] 0.83 mg/dL Normal 0.60-1.20 [facility] Comment on above: Performed By: #### T 4F, JER, CMP, TSH3 #### [facility] [address] [place] [address] [place] #### ACTH #### [facility] , Erythrocyte distribution wid th [Ratio] by Automated countOrdered By: Aries Chavez on 06-18-2024 Erythrocyte distribution width (RBC) [Ratio] 13.3 % Normal 11.9-15.3 [facility] Comment on above: Performed By: #### T 4F, TSH3, JER, CMP #### [place] [address] [place] #### ACTH #### [facility] , Erythrocytes [#/volume] in B lood by Automated countOrdered By: Aries Chavez on 06-18-2024 RBC (Bld) [#/Vol] 4.11 10*6/uL Normal 3.60-5.00 [facility] Comment on above: Performed By: #### T 4F, TSH3, JER, CMP #### [place] [address] [place] #### ACTH #### [facility] , Glucose [Mass/volume] in Ser um or PlasmaOrdered By: Aries Chavez on 06-18-2024 Glucose [Mass/Vol] 93 mg/dL Normal 70-100 [facility] Comment on above: ADA recommended refe rence rangeRandom Glucose Reference Range is dependent on time and content of last meal. Glucose of more than 200 mg/dL in a nonstressed, ambulatory subject supports the diagnosis of Diabetes Mellitus. Result Comment: Morris om Glucose Reference Range is dependent on time and content of last meal. Glucose of more than 200 mg/dL in a nonstressed, ambulatory subject supports the diagnosis of Diabetes Mellitus. ADA recommended reference range Performed By: #### T 4F, JER, CMP, TSH3 #### [facility] [address] [place] [address] [place] #### ACTH #### [facility] , Hematocrit [Volume Fraction] of Blood by Automated countOrdered By: Aries Chavez on 06-18-2024 Hematocrit (Bld) [Volume fraction] 36.5 % Normal 34.0-46.4 [facility] Comment on above: Performed By: #### T 4F, TSH3, JER, CMP #### [place] [address] [place] #### ACTH #### [facility] , Hemoglobin [Mass/volume] in BloodOrdered By: Aries Chavez on 06-18-2024 Hemoglobin (Bld) [Mass/Vol] 12.2 g/dL Normal 11.8-15.4 [facility] Comment on above: Performed By: #### T 4F, TSH3, JER, CMP #### [address] #### ACTH #### [facility] , Leukocytes [#/volume] correc gabriel for nucleated erythrocytes in Blood by Automated counOrdered By: Aries Chavez on 06-18-2024 WBC corrected for nucl RBC Auto (Bld) [#/Vol] 8.4 10*3/uL 3.8-11.6 [facility] Leukocytes [#/volume] in Blo od by Automated countOrdered By: Aries Chavez on 06-18-2024 WBC (Bld) [#/Vol] 8.4 10*3/uL Normal 3.8-11.6 [facility] Comment on above: Performed By: #### T 4F, TSH3, JER, CMP #### [place] [address] [place] #### ACTH #### [facility] , Lymphocytes [#/volume] in Bl ood by Automated countOrdered By: Aries Chavez on 06-18-2024 Lymphocytes (Bld) [#/Vol] 1.1 10*3/uL Normal 1.00-4.8 [facility] Comment on above: Performed By: #### T 4F, TSH3, JER, CMP #### [address] [place] [address] [place] #### ACTH #### [facility] , Lymphocytes/100 leukocytes i n Blood by Automated countOrdered By: Aries Chavez on 06-18-2024 Lymphocytes/100 WBC (Bld) 12.5 % Normal . [facility] Comment on above: Performed By: #### T 4F, TSH3, JER, CMP #### [place] [address] [place] #### ACTH #### [facility] , MCH [Entitic mass] by Automa gabriel countOrdered By: Aries Chavez on 06-18-2024 MCH (RBC) [Entitic mass] 29.6 pg Normal 24.7-34.3 [facility] Comment on above: Performed By: #### T 4F, TSH3, JER, CMP #### [place] [address] [place] #### ACTH #### [facility] , MCHC Auto (RBC) [Mass/Vol]Or dered By: Aries Chavez on 06-18-2024 MCHC (RBC) [Mass/Vol] 33.4 g/dL 32.0-35.0 [facility] MCV [Entitic volume] by Auto mated countOrdered By: Aries Chavez on 06-18-2024 MCV (RBC) [Entitic vol] 88.8 fL Normal 80-100 [facility] Comment on above: Performed By: #### T 4F, TSH3, JER, CMP #### [place] [address] [place] #### ACTH #### [facility] , Neutrophils [#/volume] in Bl ood by Automated countOrdered By: Aries Chavez on 06-18-2024 Neutrophils (Bld) [#/Vol] 6.0 10*3/uL Normal 1.8-7.7 [facility] Comment on above: Performed By: #### T 4F, TSH3, JER, CMP #### [address] [place] [address] [place] #### ACTH #### [facility] , No Panel InformationOrdered By: Aries Chavez on 06-18-2024 Adrenocorticotropic Hormone 51.6 pg/mL 7.2-63.3 [facility] Comment on above: ACTH reference inter wendy for samples collected between 7 and10 AM.Performed at: [address] [id number] Director: Juan Hednricks PhD, Phone: [phone] Estimated GFR (CKD-EPI) > 60.0 mL/Min [facility] Creatinine Clearance (Chem 67.15 [facility] Nucleated erythrocytes [Pres ence] in Blood by Automated countOrdered By: Aries Chavez on 06-18-2024 Nucleated RBC Auto Ql (Bld) 0.0 /100{WBC} 0-0.5 [facility] Platelet mean volume [Entiti c volume] in Blood by Automated countOrdered By: Aries Chavez on 06-18-2024 Platelet mean volume (Bld) [Entitic vol] 7.1 fL Normal 6.3-10.7 [facility] Comment on above: Performed By: #### T 4F, TSH3, JER, CMP #### [facility] [address] [place] [address] #### ACTH #### [facility] , Platelets [#/volume] in Bloo d by Automated countOrdered By: Aries Chavez on 06-18-2024 Platelets (Bld) [#/Vol] 342 10*3/uL Normal 150-450 [facility] Comment on above: Performed By: #### T 4F, TSH3, JER, CMP #### [facility] [address] [place] [address] [place] #### ACTH #### [facility] , Potassium [Moles/volume] in Serum or PlasmaOrdered By: Aries Chavez on 06-18-2024 Potassium [Moles/Vol] 5.0 mmol/L Normal 3.5-5.1 [facility] Comment on above: Performed By: #### T 4F, JER, CMP, TSH3 #### [facility] [address] [place] [address] [place] #### ACTH #### [facility] , Protein [Mass/volume] in Ser um or PlasmaOrdered By: Aries Chavez on 06-18-2024 Protein [Mass/Vol] 6.9 g/dL Normal 6.4-8.9 [facility] Comment on above: Performed By: #### T 4F, JER, CMP, TSH3 #### [facility] [address] [place] [address] #### ACTH #### [facility] , Random cortisol measurementO rdered By: Aries Chavez on 06-18-2024 Cortisol [Mass/Vol] 18.8 ug/dL [facility] Comment on above: [facility] crop scout and method:[employer]EL DXI, POLYCLONAL ANTIBODY CORTISOL ASSAY.Reference range: AM 6 - 24 ug/dl PM <10 ug/dl Serum globulin measurement b y calculation (mass/volume)Ordered By: Aries Chavez on 06-18-2024 Globulin (S) [Mass/Vol] 3.2 g/dL Normal [facility] Comment on above: Performed By: #### T 4F, JER, CMP, TSH3 #### [facility] [address] [place] [address] [place] #### ACTH #### [facility] , Serum or plasma albumin/glob ulin mass ratioOrdered By: Aries Chavez on 06-18-2024 Albumin/Globulin [Mass ratio] 1.2 {ratio} Normal [facility] Comment on above: Performed By: #### T 4F, JER, CMP, TSH3 #### [facility] [address] [place] [address] [place] #### ACTH #### [facility] , Serum or plasma anion gap de terminationOrdered By: Aries Chavez on 06-18-2024 Anion gap [Moles/Vol] 7.6 mmol/L Normal 6.0-15.0 [facility] Comment on above: Performed By: #### T 4F, JER, CMP, TSH3 #### [facility] [address] [place] [address] #### ACTH #### [facility] , Sodium [Moles/volume] in Ser um or PlasmaOrdered By: Aries Chavez on 06-18-2024 Sodium [Moles/Vol] 126 mmol/L Low 136-145 [facility] Comment on above: Performed By: #### T 4F, JER, CMP, TSH3 #### [facility] [address] [place] [address] #### ACTH #### [facility] , Thyrotropin [Units/volume] i n Serum or PlasmaOrdered By: Aries Chavez on 06-18-2024 TSH Qn 24.20 m[IU]/L High 0.45-5.33 [facility] Comment on above: Performed By: #### C BC, CMP #### [facility] [address] [place] [address] Thyroxine (T4) free [Mass/vo lume] in Serum or PlasmaOrdered By: Aries Chavez on 06-18-2024 Free T4 [Mass/Vol] 1.05 ng/dL Normal 0.61-1.12 [facility] Comment on above: Performed By: #### T 4F, JER, CMP, TSH3 #### [facility] [address] [place] [address] [place] #### ACTH #### [facility] , Urea nitrogen [Mass/volume] in Serum or PlasmaOrdered By: Aries Chavez on 06-18-2024 Urea nitrogen [Mass/Vol] 9 mg/dL Normal 7-25 [facility] Comment on above: Performed By: #### T 4F, JER, CMP, TSH3 #### [facility] [address] [place] [address] [place] #### ACTH #### [facility] , No Panel InformationOrdered By: Elayne James on 06-04-2024 COVID Antigen (POC) [facility] COVID Antigen (POC) [facility] 36on 05-24-2024 36 Patient informed. Sh e verbalized understanding. Normal [facility] 36on 05-22-2024 36 Nothing further to [...] with cardiology in 6 months. Thanks! Normal [facility] 36 Regarding echo resul t from 05/09/2024: AMA Alvarez, CJ Guevara LV function is normal , no significant valvular abnormalities Overall pretty good. Enlarged lt atrium- but normal if she has A fib Thanks Stephanie, I don't see afib as one of her diagnoses. Did you want something else done for her? Normal [facility] Adrenocorticotropic Hormone PLon 05-07-[address] 38.4 pg/mL Normal 7.2-63.3 [facility] Comment on above: Result Comment: ACTH reference interval for samples collected between 7 and 10 AM. Performed at: [facility] [address] [id number] Consultant: Juan Hendricks PhD, Phone: [phone] PERFORMED BY: [place] [address] PATHOLOGIST SHEAR HELPER STEFANO HOLT M.D. Performed By: #### T 4F, TSH3, JER, CMP #### [address] #### ACTH #### [facility] , Alanine aminotransferase [En zymatic activity/volume] in Serum or PlasmaOrdered By: Aries Chavez on 05-07-2024 ALT [Catalytic activity/Vol] 13 U/L Normal 7-52 [facility] Comment on above: Performed By: #### T 4F, TSH3, JER, CMP #### [facility] [address] [place] [address] [place] #### ACTH #### [facility] , Albumin [Mass/volume] in Ser um or Plasma by Bromocresol green (BCG) dye binding methoOrdered By: Aries Chavez on 05-07-2024 Albumin BCG dye [Mass/Vol] 3.8 g/dL 3.5-5.7 [facility] Alkaline phosphatase [Enzyma tic activity/volume] in Serum or PlasmaOrdered By: Aries Chavez on 05-07-2024 ALP [Catalytic activity/Vol] 74 U/L Normal 34-104 [facility] Comment on above: Performed By: #### T 4F, TSH3, JER, CMP #### [facility] [address] [place] [address] [place] #### ACTH #### [facility] , Aspartate aminotransferase [ Enzymatic activity/volume] in Serum or PlasmaOrdered By: Aries Chavez on 05-07-2024 AST [Catalytic activity/Vol] 20 U/L Normal 13-39 [facility] Comment on above: Performed By: #### T 4F, TSH3, JER, CMP #### [facility] [address] [place] [address] [place] #### ACTH #### [facility] , Automated basophil %Ordered By: Aries Chavez on 05-07-2024 Basophils/100 WBC (Bld) 2.9 % Normal . [facility] Comment on above: Performed By: #### T 4F, TSH3, JER, CMP #### [facility] [address] [place] [address] [place] #### ACTH #### [facility] , Automated basophil countOrde red By: Aries Chavez on 05-07-2024 Basophils (Bld) [#/Vol] 0.2 10*3/uL Normal 0.0-0.2 [facility] Comment on above: Result Comment: PERF ORMED BY: [place] [address] PATHOLOGIST SHEAR HELPER STEFANO HOLT M.D. Performed By: #### T 4F, TSH3, JER, CMP #### [facility] [address] [place] [address] [place] #### ACTH #### [facility] , Automated blood monocyte cou ntOrdered By: Aries Chavez on 05-07-2024 Monocytes (Bld) [#/Vol] 0.8 10*3/uL Normal 0.0-0.8 [facility] Comment on above: Performed By: #### T 4F, TSH3, JER, CMP #### [facility] [address] [place] [address] [place] #### ACTH #### [facility] , Automated eosinophil %Ordere d By: Aries Chavez on 05-07-2024 Eosinophils/100 WBC (Bld) 8.7 % Normal . [facility] Comment on above: Performed By: #### T 4F, TSH3, JER, CMP #### [facility] [address] [place] [address] [place] #### ACTH #### [facility] , Automated eosinophil countOr dered By: Aries Chavez on 05-07-2024 Eosinophils (Bld) [#/Vol] 0.6 10*3/uL High 0.0-0.45 [facility] Comment on above: Performed By: #### T 4F, TSH3, JER, CMP #### [facility] [address] [place] [address] [place] #### ACTH #### [facility] , Automated monocyte %Ordered By: Aries Chavez on 05-07-2024 Monocytes/100 WBC (Bld) 11.6 % Normal . [facility] Comment on above: Performed By: #### T 4F, TSH3, JER, CMP #### [facility] [address] [place] [address] [place] #### ACTH #### [facility] , Automated neutrophil %Ordere d By: Aries Chavez on 05-07-2024 Neutrophils/100 WBC (Bld) 59.0 % Normal . [facility] Comment on above: Performed By: #### T 4F, TSH3, JER, CMP #### [facility] [address] [place] [address] [place] #### ACTH #### [facility] , Bilirubin.direct [Mass/volum e] in Serum or PlasmaOrdered By: Aries Chavez on 05-07-2024 Bilirubin.direct [Mass/Vol] 0.10 mg/dL 0.03-0.18 [facility] Bilirubin.direct [Mass/Vol] Bilirubin.direct [Mass/volume] in Serum or Plasma 0.03-0.18 [facility] Bilirubin.total [Mass/volume ] in Serum or PlasmaOrdered By: Aries Chavez on 05-07-2024 Bilirubin [Mass/Vol] 0.6 mg/dL Normal 0.3-1.0 [facility] Comment on above: Performed By: #### T 4F, TSH3, JER, CMP #### [facility] [address] [place] [address] [place] #### ACTH #### [facility] , Calcium [Mass/volume] in Ser um or PlasmaOrdered By: Aries Chavez on 05-07-2024 Calcium [Mass/Vol] 8.9 mg/dL Normal 8.6-10.3 [facility] Comment on above: Performed By: #### T 4F, TSH3, JER, CMP #### [facility] [address] [place] [address] [place] #### ACTH #### [facility] , Carbon dioxide, total [Moles /volume] in Serum or PlasmaOrdered By: Aries Chavez on 05-07-2024 CO2 [Moles/Vol] 29.3 mmol/L Normal 21.0-31.0 [facility] Comment on above: Performed By: #### T 4F, TSH3, JER, CMP #### [facility] [address] [place] [address] [place] #### ACTH #### [facility] , Chloride [Moles/volume] in S leena or PlasmaOrdered By: Aries Chavez on 05-07-2024 Chloride [Moles/Vol] 96 mmol/L Low 98-107 [facility] Comment on above: Performed By: #### T 4F, TSH3, JER, CMP #### [facility] [address] [place] [address] [place] #### ACTH #### [facility] , Complete Blood Count Auto Di ffon 05-07-2024 Mean Corpuscular HGB Conc 32.9 g/dL Normal 32.0-35.0 [facility] Comment on above: Performed By: #### T 4F, TSH3, JER, CMP #### [facility] [address] [place] [address] #### ACTH #### [facility] , NRBC% 0.0 /100{WBC} Normal 0-0.5 [facility] Comment on above: Performed By: #### T 4F, TSH3, JER, CMP #### [facility] [address] [place] [address] [place] #### ACTH #### [facility] , Comprehensive Metabolic Pane malcom 05-07-2024 Albumin [Mass/Vol] 3.8 g/dL Normal 3.5-5.7 [facility] Comment on above: Performed By: #### T 4F, TSH3, JER, CMP #### [facility] [address] [place] [address] [place] #### ACTH #### [facility] , Creatinine Clr Calc Pharmacy 58.46 Normal [facility] Comment on above: Performed By: #### T 4F, TSH3, JER, CMP #### [place] [address] [place] #### ACTH #### [facility] , GFR/1.73 sq M.predicted MDRD (S/P/Bld) [Vol rate/Area] mL/min/{1.73_m2} Normal [facility] Comment on above: Performed By: #### T 4F, TSH3, JER, CMP #### [place] [address] [place] #### ACTH #### [facility] , Cortisolon 05-07-2024 Cortisol 14.4 ug/dL Normal [facility] Comment on above: Result Comment: Refe rence range: AM 6 - 24 ug/dl PM <10 ug/dl [facility] crop scout and method: [employer]EL DXI, POLYCLONAL ANTIBODY CORTISOL ASSAY. PERFORMED BY: [place] [address] PATHOLOGIST SHEAR HELPER STEFANO HOLT M.D. Performed By: #### T 4F, TSH3, JER, CMP #### [place] [address] [place] #### ACTH #### [facility] , Creatinine [Mass/volume] in Serum or PlasmaOrdered By: Aries Chavez on 05-07-2024 Creatinine [Mass/Vol] 0.93 mg/dL Normal 0.60-1.20 [facility] Comment on above: Performed By: #### T 4F, TSH3, JER, CMP #### [place] [address] [place] #### ACTH #### [facility] , Erythrocyte distribution wid th [Ratio] by Automated countOrdered By: Aries Chavez on 05-07-2024 Erythrocyte distribution width (RBC) [Ratio] 13.3 % Normal 11.9-15.3 [facility] Comment on above: Performed By: #### T 4F, TSH3, JER, CMP #### [place] [address] [place] #### ACTH #### [facility] , Erythrocytes [#/volume] in B lood by Automated countOrdered By: Aries Chavez on 05-07-2024 RBC (Bld) [#/Vol] 3.94 10*6/uL Normal 3.60-5.00 [facility] Comment on above: Performed By: #### T 4F, TSH3, JER, CMP #### [facility] [address] [place] [address] [place] #### ACTH #### [facility] , Glucose [Mass/volume] in Ser um or PlasmaOrdered By: Aries Chavez on 05-07-2024 Glucose [Mass/Vol] 92 mg/dL Normal 70-100 [facility] Comment on above: ADA recommended refe rence rangeRandom Glucose Reference Range is dependent on time and content of last meal. Glucose of more than 200 mg/dL in a nonstressed, ambulatory subject supports the diagnosis of Diabetes Mellitus. Result Comment: Morris om Glucose Reference Range is dependent on time and content of last meal. Glucose of more than 200 mg/dL in a nonstressed, ambulatory subject supports the diagnosis of Diabetes Mellitus. ADA recommended reference range Performed By: #### T 4F, TSH3, JER, CMP #### [facility] [address] [place] [address] [place] #### ACTH #### [facility] , Hematocrit [Volume Fraction] of Blood by Automated countOrdered By: Aries Chavez on 05-07-2024 Hematocrit (Bld) [Volume fraction] 35.8 % Normal 34.0-46.4 [facility] Comment on above: Performed By: #### T 4F, TSH3, JER, CMP #### [facility] [address] [place] [address] [place] #### ACTH #### [facility] , Hemoglobin [Mass/volume] in BloodOrdered By: Aries Chavez on 05-07-2024 Hemoglobin (Bld) [Mass/Vol] 11.8 g/dL Normal 11.8-15.4 [facility] Comment on above: Performed By: #### T 4F, TSH3, JER, CMP #### [facility] [address] [place] [address] [place] #### ACTH #### [facility] , Hepatic Panelon 05-07-2024 Bilirubin,Indirect 0.5 mg/dL Normal [facility] Comment on above: Performed By: #### T 4F, TSH3, JER, CMP #### [place] [address] [place] #### ACTH #### [facility] , Bilirubin.indirect [Mass/Vol] 0.10 mg/dL Normal 0.03-0.18 [facility] Comment on above: Performed By: #### T 4F, TSH3, EJR, CMP #### [place] [address] [place] #### ACTH #### [facility] , Leukocytes [#/volume] correc gabriel for nucleated erythrocytes in Blood by Automated counOrdered By: Aries Chavez on 05-07-2024 WBC corrected for nucl RBC Auto (Bld) [#/Vol] 6.8 10*3/uL 3.8-11.6 [facility] Leukocytes [#/volume] in Blo od by Automated countOrdered By: Aries Chavez on 05-07-2024 WBC (Bld) [#/Vol] 6.8 10*3/uL Normal 3.8-11.6 [facility] Comment on above: Performed By: #### T 4F, TSH3, JER, CMP #### [facility] [address] [place] [address] [place] #### ACTH #### [facility] , Lymphocytes [#/volume] in Bl ood by Automated countOrdered By: Aries Chavez on 05-07-2024 Lymphocytes (Bld) [#/Vol] 1.2 10*3/uL Normal 1.00-4.8 [facility] Comment on above: Performed By: #### T 4F, TSH3, JER, CMP #### [facility] [address] [place] [address] [place] #### ACTH #### [facility] , Lymphocytes/100 leukocytes i n Blood by Automated countOrdered By: Aries Chavez on 05-07-2024 Lymphocytes/100 WBC (Bld) 17.8 % Normal . [facility] Comment on above: Performed By: #### T 4F, TSH3, JER, CMP #### [place] [address] [place] #### ACTH #### [facility] , MCH [Entitic mass] by Automa gabriel countOrdered By: Aries Chavez on 05-07-2024 MCH (RBC) [Entitic mass] 29.9 pg Normal 24.7-34.3 [facility] Comment on above: Performed By: #### T 4F, TSH3, JER, CMP #### [place] [address] [place] #### ACTH #### [facility] , MCHC Auto (RBC) [Mass/Vol]Or dered By: Aries Chavez on 05-07-2024 MCHC (RBC) [Mass/Vol] 32.9 g/dL 32.0-35.0 [facility] MCV [Entitic volume] by Auto mated countOrdered By: Aries Chavez on 05-07-2024 MCV (RBC) [Entitic vol] 90.9 fL Normal 80-100 [facility] Comment on above: Performed By: #### T 4F, TSH3, JER, CMP #### [place] [address] [place] #### ACTH #### [facility] , Neutrophils [#/volume] in Bl ood by Automated countOrdered By: Aries Chavez on 05-07-2024 Neutrophils (Bld) [#/Vol] 4.0 10*3/uL Normal 1.8-7.7 [facility] Comment on above: Performed By: #### T 4F, TSH3, JER, CMP #### [facility] [address] [place] [address] [place] #### ACTH #### [facility] , No Panel InformationOrdered By: Aries Chavez on 05-07-2024 Adrenocorticotropic Hormone 38.4 pg/mL 7.2-63.3 [facility] Comment on above: ACTH reference inter wendy for samples collected between 7 and10 AM.Performed at: [facility] [place] [id number] Director: Juan Hendricks PhD, Phone: [phone] Estimated GFR (CKD-EPI) > 60.0 mL/Min [facility] Creatinine Clearance (Chem 58.46 [facility] Nucleated erythrocytes [Pres ence] in Blood by Automated countOrdered By: Aries Chavez on 05-07-2024 Nucleated RBC Auto Ql (Bld) 0.0 /100{WBC} 0-0.5 [facility] Platelet mean volume [Entiti c volume] in Blood by Automated countOrdered By: Aries Chavez on 05-07-2024 Platelet mean volume (Bld) [Entitic vol] 8.2 fL Normal 6.3-10.7 [facility] Comment on above: Performed By: #### T 4F, TSH3, JER, CMP #### [facility] [address] [place] [address] [place] #### ACTH #### [facility] , Platelets [#/volume] in Bloo d by Automated countOrdered By: Aries Chavez on 05-07-2024 Platelets (Bld) [#/Vol] 225 10*3/uL Normal 150-450 [facility] Comment on above: Performed By: #### T 4F, TSH3, JER, CMP #### [facility] [address] [place] [address] [place] #### ACTH #### [facility] , Potassium [Moles/volume] in Serum or PlasmaOrdered By: Aries Chavez on 05-07-2024 Potassium [Moles/Vol] 4.4 mmol/L Normal 3.5-5.1 [facility] Comment on above: Performed By: #### T 4F, TSH3, JER, CMP #### [facility] [address] [place] [address] [place] #### ACTH #### [facility] , Protein [Mass/volume] in Ser um or PlasmaOrdered By: Aries Chavez on 05-07-2024 Protein [Mass/Vol] 6.8 g/dL Normal 6.4-8.9 [facility] Comment on above: Performed By: #### T 4F, TSH3, JER, CMP #### [facility] [address] [place] [address] #### ACTH #### [facility] , Random cortisol measurementO rdered By: Aries Chavez on 05-07-2024 Cortisol [Mass/Vol] 14.4 ug/dL [facility] Comment on above: [facility] crop scout and method:[employer] ([employer] DXI, POLYCLONAL ANTIBODY CORTISOL ASSAY.Reference range: AM 6 - 24 ug/dl PM <10 ug/dl Serum globulin measurement b y calculation (mass/volume)Ordered By: Aries Chavez on 05-07-2024 Globulin (S) [Mass/Vol] 3.0 g/dL Normal [facility] Comment on above: Performed By: #### T 4F, TSH3, JER, CMP #### [facility] [address] [place] [address] [place] #### ACTH #### [facility] , Serum or plasma albumin/glob ulin mass ratioOrdered By: Aries Chavez on 05-07-2024 Albumin/Globulin [Mass ratio] 1.3 {ratio} Normal [facility] Comment on above: Performed By: #### T 4F, TSH3, JER, CMP #### [facility] [address] [place] [address] [place] #### ACTH #### [facility] , Serum or plasma anion gap de terminationOrdered By: Aries Chavez on 05-07-2024 Anion gap [Moles/Vol] 10.1 mmol/L Normal 6.0-15.0 [facility] Comment on above: Performed By: #### T 4F, TSH3, JER, CMP #### [place] [address] [place] #### ACTH #### [facility] , Serum or plasma non-glucuron idated bilirubin measurement (mass/volume)Ordered By: Aries Chavez on 05-07-2024 Bilirubin.indirect [Mass/Vol] 0.5 mg/dL [facility] Bilirubin.indirect [Mass/Vol] Serum or plasma non-glucuronidated bilirubin measurement (mass/volume) [facility] Sodium [Moles/volume] in Ser um or PlasmaOrdered By: Aries Chavez on 05-07-2024 Sodium [Moles/Vol] 131 mmol/L Low 136-145 [facility] Comment on above: Performed By: #### T 4F, TSH3, JER, CMP #### [place] [address] [place] #### ACTH #### [facility] , Thyrotropin [Units/volume] i n Serum or PlasmaOrdered By: Aries Chavez on 05-07-2024 TSH Qn 36.65 m[IU]/L High 0.45-5.33 [facility] Comment on above: Performed By: #### T 4F, TSH3, JER, CMP #### [place] [address] [place] #### ACTH #### [facility] , Thyroxine (T4) free [Mass/vo lume] in Serum or PlasmaOrdered By: Aries hCavez on 05-07-2024 Free T4 [Mass/Vol] 0.60 ng/dL Low 0.61-1.12 [facility] Comment on above: Performed By: #### T 4F, TSH3, JER, CMP #### [facility] [address] [place] [address] [place] #### ACTH #### [facility] , Urea nitrogen [Mass/volume] in Serum or PlasmaOrdered By: Aries Chavez on 05-07-2024 Urea nitrogen [Mass/Vol] 13 mg/dL Normal 04-25 [facility] Comment on above: Performed By: #### T 4F, TSH3, JER, CMP #### [facility] [address] #### ACTH #### [facility] , Follow-Upon 04-23-2024 Follow-Up [id number] Perla Ibarra 1955 F Date Provider Department Center 04/23/2024 PEDRO LUIS RIVERA Family History Problem Relation Age of Onset Tuberculosis Mother Heart attack Brother Heart failure Maternal Grandmother Heart attack Maternal Grandfather Family Status - Relation Status Age at Mother Brother Maternal Grandmother Maternal Grandfather Level of Service:43751 MS OFFICE/OUTPATIENT ESTABLISHED MOD MDM 30 MIN Reason for Visit and Comments: Congestive Heart Failure [127] Coronary Artery Disease [187] Normal [facility] Cortisolon 03-29-2024 Cortisol 11.8 ug/dL Normal [facility] Comment on above: Result Comment: Refe rence range: AM 6 - 24 ug/dl PM <10 ug/dl [facility] crop scout and method: [employer] DXI, POLYCLONAL ANTIBODY CORTISOL ASSAY. PERFORMED BY: [place] [address] PATHOLOGIST SHEAR HELPER STEFANO HOLT M.D. Performed By: #### C BC, CMP #### [facility] [address] [place] [address] Free T4 (Free Thyroxine)on 0 03-29-2024 Free T4 [Mass/Vol] 0.84 ng/dL Normal 0.61-1.12 [facility] Comment on above: Performed By: #### C BC, CMP #### [address] Thyroid Stimulating Hormoneo n 03-29-2024 TSH Qn 20.08 m[IU]/L High 0.45-5.33 [facility] Comment on above: Performed By: #### C BC, CMP #### [address] Alanine aminotransferase [En zymatic activity/volume] in Serum or PlasmaOrdered By: Aries Chavez on 03-26-2024 ALT [Catalytic activity/Vol] 17 U/L Normal 7-52 [facility] Comment on above: Performed By: #### C BC, CMP #### [place] [address] [place] Albumin [Mass/volume] in Ser um or Plasma by Bromocresol green (BCG) dye binding methoOrdered By: Aries Chavez on 03-26-2024 Albumin BCG dye [Mass/Vol] 3.9 g/dL 3.5-5.7 [facility] Alkaline phosphatase [Enzyma tic activity/volume] in Serum or PlasmaOrdered By: Aries Chavez on 03-26-2024 ALP [Catalytic activity/Vol] 123 U/L High 34-104 [facility] Comment on above: Performed By: #### C BC, CMP #### [address] Aspartate aminotransferase [ Enzymatic activity/volume] in Serum or PlasmaOrdered By: Aries Chavez on 03-26-2024 AST [Catalytic activity/Vol] 22 U/L Normal 13-39 [facility] Comment on above: Performed By: #### C BC, CMP #### [address] Automated basophil %Ordered By: Aries Chavez on 03-26-2024 Basophils/100 WBC (Bld) 3.0 % Normal . [facility] Comment on above: Performed By: #### C BC, CMP #### [address] Automated basophil countOrde red By: Aries Chavez on 03-26-2024 Basophils (Bld) [#/Vol] 0.2 10*3/uL Normal 0.0-0.2 [facility] Comment on above: Result Comment: PERF ORMED BY: [place] [address] PATHOLOGIST [employer] HELPER STEFANO HOLT M.D. Performed By: #### C BC, CMP #### [address] Automated blood monocyte cou ntOrdered By: Aries Chavez on 03-26-2024 Monocytes (Bld) [#/Vol] 0.7 10*3/uL Normal 0.0-0.8 [facility] Comment on above: Performed By: #### C BC, CMP #### [address] Automated eosinophil %Ordere d By: Aries Chavez on 03-26-2024 Eosinophils/100 WBC (Bld) 11.6 % Normal . [facility] Comment on above: Performed By: #### C BC, CMP #### [address] Automated eosinophil countOr dered By: Aries Chavez on 03-26-2024 Eosinophils (Bld) [#/Vol] 0.7 10*3/uL High 0.0-0.45 [facility] Comment on above: Performed By: #### C BC, CMP #### [address] Automated monocyte %Ordered By: Aries Chavez on 03-26-2024 Monocytes/100 WBC (Bld) 11.9 % Normal . [facility] Comment on above: Performed By: #### C BC, CMP #### [address] Automated neutrophil %Ordere d By: Aries Chavez on 03-26-2024 Neutrophils/100 WBC (Bld) 50.5 % Normal . [facility] Comment on above: Performed By: #### C BC, CMP #### [address] Bilirubin.total [Mass/volume ] in Serum or PlasmaOrdered By: Aries Chavez on 03-26-2024 Bilirubin [Mass/Vol] 0.6 mg/dL Normal 0.3-1.0 [facility] Comment on above: Performed By: #### C BC, CMP #### [address] Calcium [Mass/volume] in Ser um or PlasmaOrdered By: Aries Chavez on 03-26-2024 Calcium [Mass/Vol] 9.3 mg/dL Normal 8.6-10.3 [facility] Comment on above: Performed By: #### C BC, CMP #### [address] Carbon dioxide, total [Moles /volume] in Serum or PlasmaOrdered By: Aries Chavez on 03-26-2024 CO2 [Moles/Vol] 30.3 mmol/L Normal 21.0-31.0 [facility] Comment on above: Performed By: #### C BC, CMP #### [address] Chloride [Moles/volume] in S leena or PlasmaOrdered By: Aries Chavez on 03-26-2024 Chloride [Moles/Vol] 96 mmol/L Low 98-107 [facility] Comment on above: Performed By: #### C BC, CMP #### [address] Complete Blood Count Auto Di ffon 03-26-2024 Mean Corpuscular HGB Conc 33.3 g/dL Normal 32.0-35.0 [facility] Comment on above: Performed By: #### C BC, CMP #### [address] NRBC% 0.1 /100{WBC} Normal 0-0.5 [facility] Comment on above: Performed By: #### C BC, CMP #### [address] Comprehensive Metabolic Pane malcom 03-26-2024 Albumin [Mass/Vol] 3.9 g/dL Normal 3.5-5.7 [facility] Comment on above: Performed By: #### C BC, CMP #### [address] Creatinine Clr Calc Pharmacy 62.20 Normal [facility] Comment on above: Result Comment: PERF ORMED BY: [place] [address] PATHOLOGIST SHE[employer] HELPER STEFANO HOLT M.D. Performed By: #### C BC, CMP #### [address] GFR/1.73 sq M.predicted MDRD (S/P/Bld) [Vol rate/Area] mL/min/{1.73_m2} Normal [facility] Comment on above: Performed By: #### C BC, CMP #### [address] Creatinine [Mass/volume] in Serum or PlasmaOrdered By: Aries Chavez on 03-26-2024 Creatinine [Mass/Vol] 0.83 mg/dL Normal 0.60-1.20 [facility] Comment on above: Performed By: #### C BC, CMP #### [address] Erythrocyte distribution wid th [Ratio] by Automated countOrdered By: Aries Chavez on 03-26-2024 Erythrocyte distribution width (RBC) [Ratio] 13.4 % Normal 11.9-15.3 [facility] Comment on above: Performed By: #### C BC, CMP #### [address] Erythrocytes [#/volume] in B lood by Automated countOrdered By: Aries Chavez on 03-26-2024 RBC (Bld) [#/Vol] 4.08 10*6/uL Normal 3.60-5.00 [facility] Comment on above: Performed By: #### C BC, CMP #### [place] [address] [place] Glucose [Mass/volume] in Ser um or PlasmaOrdered By: Aries Chavez on 03-26-2024 Glucose [Mass/Vol] 95 mg/dL Normal 70-100 [facility] Comment on above: ADA recommended refe rence rangeRandom Glucose Reference Range is dependent on time and content of last meal. Glucose of more than 200 mg/dL in a nonstressed, ambulatory subject supports the diagnosis of Diabetes Mellitus. Result Comment: Morris om Glucose Reference Range is dependent on time and content of last meal. Glucose of more than 200 mg/dL in a nonstressed, ambulatory subject supports the diagnosis of Diabetes Mellitus. ADA recommended reference range Performed By: #### C ALEXANDREA, CMP #### [address] Hematocrit [Volume Fraction] of Blood by Automated countOrdered By: Aries Chavez on 03-26-2024 Hematocrit (Bld) [Volume fraction] 36.6 % Normal 34.0-46.4 [facility] Comment on above: Performed By: #### C BC, CMP #### [address] Hemoglobin [Mass/volume] in BloodOrdered By: Aries Chavez on 03-26-2024 Hemoglobin (Bld) [Mass/Vol] 12.2 g/dL Normal 11.8-15.4 [facility] Comment on above: Performed By: #### C BC, CMP #### [place] [address] [place] Leukocytes [#/volume] correc gabriel for nucleated erythrocytes in Blood by Automated counOrdered By: Aries Chavez on 03-26-2024 WBC corrected for nucl RBC Auto (Bld) [#/Vol] 5.8 10*3/uL 3.8-11.6 [facility] Leukocytes [#/volume] in Blo od by Automated countOrdered By: Aries Chavez on 03-26-2024 WBC (Bld) [#/Vol] 5.8 10*3/uL Normal 3.8-11.6 [facility] Comment on above: Performed By: #### C BC, CMP #### [place] [id number] [place] Lymphocytes [#/volume] in Bl ood by Automated countOrdered By: Aries Chavez on 03-26-2024 Lymphocytes (Bld) [#/Vol] 1.3 10*3/uL Normal 1.00-4.8 [facility] Comment on above: Performed By: #### C BC, CMP #### [address] Lymphocytes/100 leukocytes i n Blood by Automated countOrdered By: Aries Chavez on 03-26-2024 Lymphocytes/100 WBC (Bld) 23.0 % Normal . [facility] Comment on above: Performed By: #### C BC, CMP #### [address] MCH [Entitic mass] by Automa gabriel countOrdered By: Aries Chavez on 03-26-2024 MCH (RBC) [Entitic mass] 29.9 pg Normal 24.7-34.3 [facility] Comment on above: Performed By: #### C BC, CMP #### [address] MCHC Auto (RBC) [Mass/Vol]Or dered By: Aries Chavez on 03-26-2024 MCHC (RBC) [Mass/Vol] 33.3 g/dL 32.0-35.0 [facility] MCV [Entitic volume] by Auto mated countOrdered By: Aries Chavez on 03-26-2024 MCV (RBC) [Entitic vol] 89.7 fL Normal 80-100 [facility] Comment on above: Performed By: #### C BC, CMP #### [address] Neutrophils [#/volume] in Bl ood by Automated countOrdered By: Aries Chavez on 03-26-2024 Neutrophils (Bld) [#/Vol] 2.9 10*3/uL Normal 1.8-7.7 [facility] Comment on above: Performed By: #### C BC, CMP #### [address] No Panel InformationOrdered By: Aries Chavez on 03-26-2024 Estimated GFR (CKD-EPI) > 60.0 mL/Min [facility] Creatinine Clearance (Chem 62.20 [facility] Nucleated erythrocytes [Pres ence] in Blood by Automated countOrdered By: Aries Chavez on 03-26-2024 Nucleated RBC Auto Ql (Bld) 0.1 /100{WBC} 0-0.5 [facility] Platelet mean volume [Entiti c volume] in Blood by Automated countOrdered By: Aries Chavez on 03-26-2024 Platelet mean volume (Bld) [Entitic vol] 8.8 fL Normal 6.3-10.7 [facility] Comment on above: Performed By: #### C BC, CMP #### [address] Platelets [#/volume] in Bloo d by Automated countOrdered By: Aries Chavez on 03-26-2024 Platelets (Bld) [#/Vol] 235 10*3/uL Normal 150-450 [facility] Comment on above: Performed By: #### C BC, CMP #### [address] Potassium [Moles/volume] in Serum or PlasmaOrdered By: Aries Chavez on 03-26-2024 Potassium [Moles/Vol] 4.9 mmol/L Normal 3.5-5.1 [facility] Comment on above: Performed By: #### C BC, CMP #### [place] [address] [place] Protein [Mass/volume] in Ser um or PlasmaOrdered By: Aries Chavez on 03-26-2024 Protein [Mass/Vol] 7.0 g/dL Normal 6.4-8.9 [facility] Comment on above: Performed By: #### C BC, CMP #### [address] Serum globulin measurement b y calculation (mass/volume)Ordered By: Aries Chavez on 03-26-2024 Globulin (S) [Mass/Vol] 3.1 g/dL Normal [facility] Comment on above: Performed By: #### C BC, CMP #### [address] Serum or plasma albumin/glob ulin mass ratioOrdered By: Aries Chavez on 03-26-2024 Albumin/Globulin [Mass ratio] 1.3 {ratio} [facility] Comment on above: Performed By: #### C BC, CMP #### [address] Serum or plasma anion gap de terminationOrdered By: Aries Chavez on 03-26-2024 Anion gap [Moles/Vol] 9.6 mmol/L Normal 6.0-15.0 [facility] Comment on above: Performed By: #### C BC, CMP #### [address] Sodium [Moles/volume] in Ser um or PlasmaOrdered By: Aries Chavez on 03-26-2024 Sodium [Moles/Vol] 131 mmol/L Low 136-145 [facility] Comment on above: Performed By: #### C BC, CMP #### [address] Urea nitrogen [Mass/volume] in Serum or PlasmaOrdered By: Aries Chavez on 03-26-2024 Urea nitrogen [Mass/Vol] 20 mg/dL Normal 7-25 [facility] Comment on above: Performed By: #### C BC, CMP #### [address] abdomen pelvis w conon CT abdomen pelvis w [facility] [place] [address] CT Scan Report Signed Patient: Perla Ibarra MR#: [id number] : 1955 Acct:[id number] Age/Sex: 68 / F ADM Date: 03/14/24 Loc: XT Room: Type: REG RCR Attending Dr: Aries Chavez II DO Copies to: Aries Chavez II, DO Ordering Provider: Aries Chavez II, DO Date of Service: 03/14/24 CT/CT abdomen pelvis w con: C64.1 - Malignant neoplasm of right kidney, except renal ... ([id number]) CT/CT chest w con: C64.1 - Malignant [...] pelvis. Impression dictated by: Junior Shelley Jr., D.OGabe03/14/2024 3:47 PM Dictation Location: [place] [address] Transcribed By: [facility] 03/14/24 1547 Dictated By: Junior Shelley Jr, DO 03/14/24 1528 Signed By: 03/14/24 1547 Normal [facility] Complete Blood Count Auto Di ffon 03-14-2024 Basophils (Bld) [#/Vol] 0.2 10*3/uL Normal 0.0-0.2 [facility] Comment on above: Result Comment: PERF ORMED BY: [place] [address] PATHOLOGIST SHEAR HELPER STEFANO HOLT M.D. Performed By: #### C BC, CMP #### [place] [address] [place] Basophils/100 WBC (Bld) 2.9 % Normal . T chavo [facility] Comment on above: Performed By: #### C BC, CMP #### [facility] [address] [place] [address] [place] Eosinophils (Bld) [#/Vol] 0.7 10*3/uL High 0.0-0.45 [facility] Comment on above: Performed By: #### C BC, CMP #### [place] [address] [place] Eosinophils/100 WBC (Bld) 10.7 % Normal . [facility] Comment on above: Performed By: #### C BC, CMP #### [address] Erythrocyte distribution width (RBC) [Ratio] 13.8 % Normal 11.9-15.3 [facility] Comment on above: Performed By: #### C BC, CMP #### [address] Hematocrit (Bld) [Volume fraction] 36.2 % Normal 34.0-46.4 [facility] Comment on above: Performed By: #### C BC, CMP #### [address] Hemoglobin (Bld) [Mass/Vol] 12.3 g/dL Normal 11.8-15.4 [facility] Comment on above: Performed By: #### C BC, CMP #### [address] Lymphocytes (Bld) [#/Vol] 1.4 10*3/uL Normal 1.00-4.8 [facility] Comment on above: Performed By: #### C BC, CMP #### [address] Lymphocytes/100 WBC (Bld) 22.2 % Normal . [facility] Comment on above: Performed By: #### C BC, CMP #### [address] MCH (RBC) [Entitic mass] 30.2 pg Normal 24.7-34.3 [facility] Comment on above: Performed By: #### C BC, CMP #### [address] MCV (RBC) [Entitic vol] 89.0 fL Normal 80-100 T [facility] Comment on above: Performed By: #### C BC, CMP #### [address] Mean Corpuscular HGB Conc 34.0 g/dL Normal 32.0-35.0 [facility] Comment on above: Performed By: #### C BC, CMP #### [facility] [address] [place] [address] [place] Monocytes (Bld) [#/Vol] 0.7 10*3/uL Normal 0.0-0.8 [facility] Comment on above: Performed By: #### C BC, CMP #### [facility] [address] [place] [address] [place] Monocytes/100 WBC (Bld) 10.7 % Normal . T he [facility] Comment on above: Performed By: #### C BC, CMP #### [facility] [address] [place] [address] [place] Neutrophils (Bld) [#/Vol] 3.5 10*3/uL Normal 1.8-7.7 [facility] Comment on above: Performed By: #### C BC, CMP #### [place] [address] [place] Neutrophils/100 WBC (Bld) 53.5 % Normal . [facility] Comment on above: Performed By: #### C BC, CMP #### [facility] [address] [place] [address] [place] NRBC% 0.0 /100{WBC} Normal 0-0.5 [facility] Comment on above: Performed By: #### C BC, CMP #### [place] [address] [place] Platelet mean volume (Bld) [Entitic vol] 7.9 fL Normal 6.3-10.7 [facility] Comment on above: Performed By: #### C BC, CMP #### [facility] [address] [place] [address] [place] Platelets (Bld) [#/Vol] 258 10*3/uL Normal 150-450 [facility] Comment on above: Performed By: #### C BC, CMP #### [place] [address] [place] RBC (Bld) [#/Vol] 4.07 10*6/uL Normal 3.60-5.00 [facility] Comment on above: Performed By: #### C BC, CMP #### [address] WBC (Bld) [#/Vol] 6.5 10*3/uL Normal 3.8-11.6 [facility] Comment on above: Performed By: #### C BC, CMP #### [address] Comprehensive Metabolic Pane malcom 03-14-2024 Albumin [Mass/Vol] 4.0 g/dL Normal 3.5-5.7 [facility] Comment on above: Order Comment: STAT BUN/CREAT FOR CT Performed By: #### C BC, CMP #### [address] Albumin/Globulin [Mass ratio] 1.1 {ratio} Normal [facility] Comment on above: Order Comment: STAT BUN/CREAT FOR CT Performed By: #### C BC, CMP #### [address] ALP [Catalytic activity/Vol] 181 U/L High 34-104 [facility] Comment on above: Order Comment: STAT BUN/CREAT FOR CT Performed By: #### C BC, CMP #### [address] ALT [Catalytic activity/Vol] 28 U/L Normal 7-52 [facility] Comment on above: Order Comment: STAT BUN/CREAT FOR CT Performed By: #### C BC, CMP #### [address] Anion gap [Moles/Vol] 11.0 mmol/L Normal 6.0-15.0 Th e [facility] Comment on above: Order Comment: STAT BUN/CREAT FOR CT Performed By: #### C BC, CMP #### [address] AST [Catalytic activity/Vol] 27 U/L Normal 13-39 [facility] Comment on above: Order Comment: STAT BUN/CREAT FOR CT Performed By: #### C BC, CMP #### [address] Bilirubin [Mass/Vol] 0.5 mg/dL Normal 0.3-1.0 [facility] Comment on above: Order Comment: STAT BUN/CREAT FOR CT Performed By: #### C BC, CMP #### [address] Calcium [Mass/Vol] 9.6 mg/dL Normal 8.6-10.3 [facility] Comment on above: Order Comment: STAT BUN/CREAT FOR CT Performed By: #### C BC, CMP #### [address] Chloride [Moles/Vol] 98 mmol/L Normal 98-107 [facility] Comment on above: Order Comment: STAT BUN/CREAT FOR CT Performed By: #### C BC, CMP #### [address] CO2 [Moles/Vol] 27.8 mmol/L Normal 21.0-31.0 [facility] Comment on above: Order Comment: STAT BUN/CREAT FOR CT Performed By: #### C BC, CMP #### [address] Creatinine [Mass/Vol] 0.87 mg/dL Normal 0.60-1.20 [facility] Comment on above: Order Comment: STAT BUN/CREAT FOR CT Performed By: #### C BC, CMP #### [place] [address] [place] Creatinine Clr Calc Pharmacy 59.34 Normal [facility] Comment on above: Order Comment: STAT BUN/CREAT FOR CT Result Comment: PERF ORMED BY: [place] [address] PATHOLOGIST SHEAR HELPER STEFANO HOLT M.D. Performed By: #### C BC, CMP #### [place] [address] [place] GFR/1.73 sq M.predicted MDRD (S/P/Bld) [Vol rate/Area] mL/min/{1.73_m2} Normal [facility] Comment on above: Order Comment: STAT BUN/CREAT FOR CT Performed By: #### C BC, CMP #### [address] Globulin (S) [Mass/Vol] 3.6 g/dL Normal T he [facility] Comment on above: Order Comment: STAT BUN/CREAT FOR CT Performed By: #### C BC, CMP #### [address] Glucose [Mass/Vol] 96 mg/dL Normal 70-100 [facility] Comment on above: Order Comment: STAT BUN/CREAT FOR CT Result Comment: [place] Glucose Reference Range is dependent on time and content of last meal. Glucose of more than 200 mg/dL in a nonstressed, ambulatory subject supports the diagnosis of Diabetes Mellitus. ADA recommended reference range Performed By: #### C BC, CMP #### [address] Potassium [Moles/Vol] 4.8 mmol/L Normal 3.5-5.1 [facility] Comment on above: Order Comment: STAT BUN/CREAT FOR CT Performed By: #### C BC, CMP #### [address] Protein [Mass/Vol] 7.6 g/dL Normal 6.4-8.9 [facility] Comment on above: Order Comment: STAT BUN/CREAT FOR CT Performed By: #### C BC, CMP #### [address] Sodium [Moles/Vol] 132 mmol/L Low 136-145 [facility] Comment on above: Order Comment: STAT BUN/CREAT FOR CT Performed By: #### C BC, CMP #### [address] Urea nitrogen [Mass/Vol] 23 mg/dL Normal 7-25 [facility] Comment on above: Order Comment: STAT BUN/CREAT FOR CT Performed By: #### C BC, CMP #### [address] Adrenocorticotropic Hormone PLon 02-27-[address] 39.6 pg/mL Normal 7.2-63.3 [facility] Comment on above: Result Comment: ACTH reference interval for samples collected between 7 and 10 AM. Performed at: [facility] [id number] Consultant: Juan Hendricks PhD, Phone: [phone] PERFORMED BY: [place] [address] PATHOLOGIST SHEAR HELPER STEFANO HOLT M.D. Performed By: #### T 4F, TSH3, JER, CMP #### [address] #### ACTH #### [facility] , Complete Blood Count Auto Di ffon 02-27-2024 Basophils (Bld) [#/Vol] 0.2 10*3/uL Normal 0.0-0.2 [facility] Comment on above: Result Comment: PERF ORMED BY: [place] [address] PATHOLOGIST SHEAR HELPER STEFANO HOLT M.D. Performed By: #### T 4F, TSH3, JER, CMP #### [address] #### ACTH #### [facility] , Basophils/100 WBC (Bld) 3.5 % Normal . [facility] Comment on above: Performed By: #### T 4F, TSH3, JER, CMP #### [address] #### ACTH #### [facility] , Eosinophils (Bld) [#/Vol] 0.9 10*3/uL High 0.0-0.45 [facility] Comment on above: Performed By: #### T 4F, TSH3, JER, CMP #### [address] [place] [address] [place] #### ACTH #### [facility] , Eosinophils/100 WBC (Bld) 13.9 % Normal . [facility] Comment on above: Performed By: #### T 4F, TSH3, JER, CMP #### [address] #### ACTH #### [facility] , Erythrocyte distribution width (RBC) [Ratio] 14.0 % Normal 11.9-15.3 [facility] Comment on above: Performed By: #### T 4F, TSH3, JER, CMP #### [place] [address] [place] #### ACTH #### [facility] , Hematocrit (Bld) [Volume fraction] 35.5 % Normal 34.0-46.4 [facility] Comment on above: Performed By: #### T 4F, TSH3, JER, CMP #### [address] #### ACTH #### [facility] , Hemoglobin (Bld) [Mass/Vol] 11.7 g/dL Low 11.8-15.4 [facility] Comment on above: Performed By: #### T 4F, TSH3, JER, CMP #### [place] [address] [place] #### ACTH #### [facility] , Lymphocytes (Bld) [#/Vol] 1.2 10*3/uL Normal 1.00-4.8 [facility] Comment on above: Performed By: #### T 4F, TSH3, JER, CMP #### [place] [address] [place] #### ACTH #### [facility] , Lymphocytes/100 WBC (Bld) 17.7 % Normal . [facility] Comment on above: Performed By: #### T 4F, TSH3, JER, CMP #### [place] [address] [place] #### ACTH #### [facility] , MCH (RBC) [Entitic mass] 29.6 pg Normal 24.7-34.3 [facility] Comment on above: Performed By: #### T 4F, TSH3, JER, CMP #### [place] [address] [place] #### ACTH #### [facility] , MCV (RBC) [Entitic vol] 89.5 fL Normal 80-100 [facility] Comment on above: Performed By: #### T 4F, TSH3, JER, CMP #### [address] #### ACTH #### [facility] , Mean Corpuscular HGB Conc 33.0 g/dL Normal 32.0-35.0 [facility] Comment on above: Performed By: #### T 4F, TSH3, JER, CMP #### [address] #### ACTH #### [facility] , Monocytes (Bld) [#/Vol] 0.7 10*3/uL Normal 0.0-0.8 [facility] Comment on above: Performed By: #### T 4F, TSH3, JER, CMP #### [place] [address] [place] #### ACTH #### [facility] , Monocytes/100 WBC (Bld) 11.0 % Normal . [facility] Comment on above: Performed By: #### T 4F, TSH3, JER, CMP #### [place] [address] [place] #### ACTH #### [facility] , Neutrophils (Bld) [#/Vol] 3.6 10*3/uL Normal 1.8-7.7 [facility] Comment on above: Performed By: #### T 4F, TSH3, JER, CMP #### [place] [address] [place] #### ACTH #### [facility] , Neutrophils/100 WBC (Bld) 53.9 % Normal . [facility] Comment on above: Performed By: #### T 4F, TSH3, JER, CMP #### [place] [address] [place] #### ACTH #### [facility] , NRBC% 0.2 /100{WBC} Normal 0-0.5 [facility] Comment on above: Performed By: #### T 4F, TSH3, JER, CMP #### [place] [address] [place] #### ACTH #### [facility] , Platelet mean volume (Bld) [Entitic vol] 8.3 fL Normal 6.3-10.7 [facility] Comment on above: Performed By: #### T 4F, TSH3, JER, CMP #### [place] [address] [place] #### ACTH #### [facility] , Platelets (Bld) [#/Vol] 262 10*3/uL Normal 150-450 [facility] Comment on above: Performed By: #### T 4F, TSH3, JER, CMP #### [place] [address] [place] #### ACTH #### [facility] , RBC (Bld) [#/Vol] 3.97 10*6/uL Normal 3.60-5.00 [facility] Comment on above: Performed By: #### T 4F, TSH3, JER, CMP #### [place] [address] [place] #### ACTH #### [facility] , WBC (Bld) [#/Vol] 6.7 10*3/uL Normal 3.8-11.6 [facility] Comment on above: Performed By: #### T 4F, TSH3, JER, CMP #### [address] #### ACTH #### [facility] , Comprehensive Metabolic Pane malcom 02-27-2024 Albumin [Mass/Vol] 3.8 g/dL Normal 3.5-5.7 [facility] Comment on above: Performed By: #### C BC, CMP #### [address] Albumin/Globulin [Mass ratio] 1.1 {ratio} Normal [facility] Comment on above: Performed By: #### C BC, CMP #### [address] ALP [Catalytic activity/Vol] 370 U/L High 34-104 [facility] Comment on above: Performed By: #### C BC, CMP #### [address] ALT [Catalytic activity/Vol] 143 U/L High 7-52 [facility] Comment on above: Performed By: #### C BC, CMP #### [address] Anion gap [Moles/Vol] 8.9 mmol/L Normal 6.0-15.0 [facility] Comment on above: Performed By: #### C BC, CMP #### [address] AST [Catalytic activity/Vol] 98 U/L High 13-39 [facility] Comment on above: Performed By: #### C BC, CMP #### [place] [address] [place] Bilirubin [Mass/Vol] 0.6 mg/dL Normal 0.3-1.0 [facility] Comment on above: Performed By: #### C BC, CMP #### [place] [address] [place] Calcium [Mass/Vol] 9.6 mg/dL Normal 8.6-10.3 [facility] Comment on above: Performed By: #### C BC, CMP #### [facility] [address] [place] [address] [place] Chloride [Moles/Vol] 97 mmol/L Low 98-107 [facility] Comment on above: Performed By: #### C BC, CMP #### [facility] [address] [place] [address] [place] CO2 [Moles/Vol] 29.6 mmol/L Normal 21.0-31.0 [facility] Comment on above: Performed By: #### C BC, CMP #### [facility] [address] [place] [address] [place] Creatinine [Mass/Vol] 0.80 mg/dL Normal 0.60-1.20 [facility] Comment on above: Performed By: #### C BC, CMP #### [facility] [address] [place] [address] [place] Creatinine Clr Calc Pharmacy 64.54 Normal [facility] Comment on above: Performed By: #### C BC, CMP #### [facility] [address] [place] [address] [place] GFR/1.73 sq M.predicted MDRD (S/P/Bld) [Vol rate/Area] mL/min/{1.73_m2} Normal [facility] Comment on above: Performed By: #### C BC, CMP #### [facility] [address] [place] [address] [place] Globulin (S) [Mass/Vol] 3.6 g/dL Normal T he [facility] Comment on above: Performed By: #### C BC, CMP #### [facility] [address] [place] [address] [place] Glucose [Mass/Vol] 95 mg/dL Normal 70-100 [facility] Comment on above: Result Comment: [place] Glucose Reference Range is dependent on time and content of last meal. Glucose of more than 200 mg/dL in a nonstressed, ambulatory subject supports the diagnosis of Diabetes Mellitus. ADA recommended reference range Performed By: #### C BC, CMP #### [address] Potassium [Moles/Vol] 4.5 mmol/L Normal 3.5-5.1 [facility] Comment on above: Performed By: #### C BC, CMP #### [address] Protein [Mass/Vol] 7.4 g/dL Normal 6.4-8.9 [facility] Comment on above: Performed By: #### C BC, CMP #### [address] Sodium [Moles/Vol] 131 mmol/L Low 136-145 [facility] Comment on above: Performed By: #### C BC, CMP #### [address] Urea nitrogen [Mass/Vol] 12 mg/dL Normal 7-25 [facility] Comment on above: Performed By: #### C BC, CMP #### [address] Cortisolon 02-27-2024 Cortisol 17.4 ug/dL Normal [facility] Comment on above: Result Comment: Refe rence range: AM 6 - 24 ug/dl PM <10 ug/dl [facility] crop scout and method: ET Water UNICEL DXI, POLYCLONAL ANTIBODY CORTISOL ASSAY. PERFORMED BY: [place] [address] PATHOLOGIST SHEAR HELPER STEFANO HOLT M.D. Performed By: #### T 4F, TSH3, JER, CMP #### [address] #### ACTH #### [facility] , No Panel InformationOrdered By: Aries Chavez on 02-27-2024 Adrenocorticotropic Hormone 39.6 pg/mL 7.2-63.3 [facility] Comment on above: ACTH reference inter wendy for samples collected between 7 and10 AM.Performed at: [facility] [address] [id number] Director: Juan Hendricks PhD, Phone: [phone] Random cortisol measurementO rdered By: Aries Chavez on 02-27-2024 Cortisol [Mass/Vol] 17.4 ug/dL [facility] Comment on above: [facility] crop scout and method:AMRITA UNICEL DXI, POLYCLONAL ANTIBODY CORTISOL ASSAY.Reference range: AM 6 - 24 ug/dl PM <10 ug/dl Thyrotropin [Units/volume] i n Serum or PlasmaOrdered By: Aries Chavez on 02-27-2024 TSH Qn 23.15 m[IU]/L High 0.45-5.33 [facility] Comment on above: Performed By: #### T 4F, TSH3, JER, CMP #### [facility] [address] [place] [address] [place] #### ACTH #### [facility] , Thyroxine (T4) free [Mass/vo lume] in Serum or PlasmaOrdered By: Aries Chavez on 02-27-2024 Free T4 [Mass/Vol] 0.91 ng/dL Normal 0.61-1.12 [facility] Comment on above: Performed By: #### T 4F, TSH3, JER, CMP #### [facility] [address] [place] [address] [place] #### ACTH #### [facility] , Absolute reticulocyte countO rdered By: Aries Chavez on 12-28-2023 Reticulocytes (Bld) [#/Vol] 0.068 10*6/uL 0.024-0.08 4 [facility] Alanine aminotransferase [En zymatic activity/volume] in Serum or PlasmaOrdered By: Aries Chavez on 12-28-2023 ALT [Catalytic activity/Vol] 23 U/L 7-52 [facility] Albumin [Mass/volume] in Ser um or Plasma by Bromocresol green (BCG) dye binding methoOrdered By: Aries Chavez on 12-28-2023 Albumin BCG dye [Mass/Vol] 3.8 g/dL 3.5-5.7 [facility] Alkaline phosphatase [Enzyma tic activity/volume] in Serum or PlasmaOrdered By: Aries Chavez on 12-28-2023 ALP [Catalytic activity/Vol] 93 U/L 34-104 [facility] Aspartate aminotransferase [ Enzymatic activity/volume] in Serum or PlasmaOrdered By: Aries Chavez on 12-28-2023 AST [Catalytic activity/Vol] 25 U/L 13-39 [facility] Basophils Auto (Bld) [#/Vol] Ordered By: Aries Chavez on 12-28-2023 Basophils (Bld) [#/Vol] 0.2 10*3/uL 0.0-0.2 [facility] Basophils/100 WBC Auto (Bld) Ordered By: Aries Chavez on 12-28-2023 Basophils/100 WBC (Bld) 2.8 % . [facility] Bilirubin.total [Mass/volume ] in Serum or PlasmaOrdered By: Aries Chavez on 12-28-2023 Bilirubin [Mass/Vol] 0.4 mg/dL 0.3-1.0 [facility] Calcium [Mass/volume] in Ser um or PlasmaOrdered By: Aries Chavez on 12-28-2023 Calcium [Mass/Vol] 9.5 mg/dL 8.6-10.3 [facility] Carbon dioxide, total [Moles /volume] in Serum or PlasmaOrdered By: Aries Chavez on 12-28-2023 CO2 [Moles/Vol] 29.5 mmol/L 21.0-31.0 [facility] Chloride [Moles/volume] in S leena or PlasmaOrdered By: Aries Chavez on 12-28-2023 Chloride [Moles/Vol] 94 mmol/L 98-107 [facility] Creatinine [Mass/volume] in Serum or PlasmaOrdered By: Aries Chavez on 12-28-2023 Creatinine [Mass/Vol] 0.77 mg/dL 0.60-1.20 [facility] Eosinophils Auto (Bld) [#/Vo l]Ordered By: Aries Chavez on 12-28-2023 Eosinophils (Bld) [#/Vol] 0.5 10*3/uL 0.0-0.45 [facility] Eosinophils/100 WBC Auto (Bl d)Ordered By: Aries Chavez on 12-28-2023 Eosinophils/100 WBC (Bld) 6.4 % . [facility] Erythrocyte distribution wid th Auto (RBC) [Ratio]Ordered By: Aries Chavez on 12-28-2023 Erythrocyte distribution width (RBC) [Ratio] 18.2 % 11.9-15.3 [facility] Ferritin [Mass/volume] in Se rum or PlasmaOrdered By: Rogers Moon on 12-28-2023 Ferritin [Mass/Vol] 397.8 ng/mL High 11.0-306.8 [facility] Ferritin [Mass/Vol] Ferritin [Mass/volum e] in Serum or Plasma High 11.0-306.8 [facility] Folate [Mass/volume] in Seru m or PlasmaOrdered By: Aries Chavez on 12-28-2023 Folate [Mass/Vol] 13.7 ng/mL >5.9 [facility] Comment on above: Folate reference ran ge: >5.9 ng/mlThe WHO technical consultation on folate and vitamin [id number] has determined that folate concentrations lessthan 4 ng/ml are considered deficient. Folate [Mass/Vol] Folate [Mass/volume] in Serum or Plasma >5.9 [facility] Comment on above: Folate reference ran ge: >5.9 ng/mlThe WHO technical consultation on folate and vitamin [id number] has determined that folate concentrations lessthan 4 ng/ml are considered deficient. Globulin Calc (S) [Mass/Vol] Ordered By: Aries Chavez on 12-28-2023 Globulin (S) [Mass/Vol] 4.0 g/dL [facility] Glucose [Mass/volume] in Ser um or PlasmaOrdered By: Aries Chavez on 12-28-2023 Glucose [Mass/Vol] 95 mg/dL 70-100 [facility] Comment on above: ADA recommended refe rence rangeRandom Glucose Reference Range is dependent on time and content of last meal. Glucose of more than 200 mg/dL in a nonstressed, ambulatory subject supports the diagnosis of Diabetes Mellitus. Hematocrit Auto (Bld) [Volum e fraction]Ordered By: Aries Chavez on 12-28-2023 Hematocrit (Bld) [Volume fraction] 34.9 % 34.0-46.4 [facility] Hemoglobin [Mass/volume] in BloodOrdered By: Aries Chavez on 12-28-2023 Hemoglobin (Bld) [Mass/Vol] 11.4 g/dL 11.8-15.4 [facility] Iron [Mass/volume] in Serum or PlasmaOrdered By: Aries Chavez on 12-28-2023 Iron [Mass/Vol] 144 ug/dL 50-212 [facility] Iron [Mass/Vol] Iron [Mass/volume] i n Serum or Plasma 50-212 [facility] Iron binding capacity [Mass/ volume] in Serum or PlasmaOrdered By: Aries Chavez on 12-28-2023 Iron binding capacity [Mass/Vol] 311 ug/dL 255-450 [facility] Iron saturation [Mass Fracti on] in Serum or PlasmaOrdered By: Aries Chavez on 12-28-2023 Iron saturation [Mass fraction] 46.3 % 20-50 [facility] Lactate dehydrogenase [Enzym atic activity/volume] in Serum or Plasma by Lactate to pyOrdered By: Aries Chavez on 12-28-2023 LDH Lactate to pyruvate reaction [Catalytic activity/Vol] 135 U/L Low 140-271 [facility] LDH Lactate to pyruvate reaction [Catalytic activity/Vol] Lactate dehydrogenase [Enzymatic activity/volume] in Serum or Plasma by Lactate to py Low 140-271 [facility] Leukocytes [#/volume] correc gabriel for nucleated erythrocytes in Blood by Automated counOrdered By: Aries Chavez on 12-28-2023 WBC corrected for nucl RBC Auto (Bld) [#/Vol] 7.6 10*3/uL 3.8-11.6 [facility] Lymphocytes Auto (Bld) [#/Vo l]Ordered By: Aries Chavez on 12-28-2023 Lymphocytes (Bld) [#/Vol] 1.3 10*3/uL 1.00-4.8 [facility] Lymphocytes/100 WBC Auto (Bl d)Ordered By: Aries Chavez on 12-28-2023 Lymphocytes/100 WBC (Bld) 17.1 % . [facility] MCH Auto (RBC) [Entitic mass ]Ordered By: Aries Chavez on 12-28-2023 MCH (RBC) [Entitic mass] 27.4 pg 24.7-34.3 [facility] MCHC Auto (RBC) [Mass/Vol]Or dered By: Aries Chavez on 12-28-2023 MCHC (RBC) [Mass/Vol] 32.6 g/dL 32.0-35.0 [facility] MCV Auto (RBC) [Entitic vol] Ordered By: Aries Chavez on 12-28-2023 MCV (RBC) [Entitic vol] 84.1 fL 80-100 [facility] Monocytes Auto (Bld) [#/Vol] Ordered By: Aries Chavez on 12-28-2023 Monocytes (Bld) [#/Vol] 0.6 10*3/uL 0.0-0.8 [facility] Monocytes/100 WBC Auto (Bld) Ordered By: Aries Chavez on 12-28-2023 Monocytes/100 WBC (Bld) 8.1 % . [facility] Neutrophils Auto (Bld) [#/Vo l]Ordered By: Aries Chavez on 12-28-2023 Neutrophils (Bld) [#/Vol] 5.0 10*3/uL 1.8-7.7 [facility] Neutrophils/100 WBC Auto (Bl d)Ordered By: Aries Chavez on 12-28-2023 Neutrophils/100 WBC (Bld) 65.6 % . [facility] No Panel InformationOrdered By: Aries Chavez on 12-28-2023 Adrenocorticotropic Hormone 11.2 pg/mL 7.2-63.3 [facility] Comment on above: ACTH reference inter wendy for samples collected between 7 and10 AM.Performed at: [employer] [facility] [id number] Director: Juan Hendricks PhD, Phone: [phone] Estimated GFR (CKD-EPI) > 60.0 mL/Min [facility] Creatinine Clearance (Chem 59.72 [facility] Nucleated erythrocytes [Pres ence] in Blood by Automated countOrdered By: Aries Chavez on 12-28-2023 Nucleated RBC Auto Ql (Bld) 0.1 /100{WBC} 0-0.5 [facility] Platelet mean volume Auto (B ld) [Entitic vol]Ordered By: Aries Chavez on 12-28-2023 Platelet mean volume (Bld) [Entitic vol] 8.1 fL 6.3-10.7 [facility] Platelets Auto (Bld) [#/Vol] Ordered By: Aries Chavez on 12-28-2023 Platelets (Bld) [#/Vol] 344 10*3/uL 150-450 [facility] Potassium [Moles/volume] in Serum or PlasmaOrdered By: Aries Chavez on 12-28-2023 Potassium [Moles/Vol] 4.8 mmol/L 3.5-5.1 [facility] Protein [Mass/volume] in Ser um or PlasmaOrdered By: Aries Chavez on 12-28-2023 Protein [Mass/Vol] 7.8 g/dL 6.4-8.9 [facility] RBC Auto (Bld) [#/Vol]Ordere d By: Aries Chavez on 12-28-2023 RBC (Bld) [#/Vol] 4.15 10*6/uL 3.60-5.00 [facility] Random cortisol measurementO rdered By: Aries Chavez on 12-28-2023 Cortisol [Mass/Vol] 13.7 ug/dL [facility] Comment on above: [facility] crop scout and method:[employer] DXI, POLYCLONAL ANTIBODY CORTISOL ASSAY.Reference range: AM 6 - 24 ug/dl PM <10 ug/dl Reticulocytes [#/volume] in BloodOrdered By: Aries Chavez on 12-28-2023 Reticulocytes (Bld) [#/Vol] Absolute reticulocyte count 0.024-0.08 4 [facility] Reticulocytes/100 RBC Auto ( Bld)Ordered By: Aries Chavez on 12-28-2023 Reticulocytes/100 RBC (Bld) 1.6 % High 0.5-1.5 [facility] Reticulocytes/100 RBC (Bld) Reticulocyte % auto High 0.5-1.5 [facility] Serum or plasma albumin/glob ulin mass ratioOrdered By: Aries Chavez on 12-28-2023 Albumin/Globulin [Mass ratio] 1.0 {ratio} [facility] Serum or plasma anion gap de terminationOrdered By: Aries Chavez on 12-28-2023 Anion gap [Moles/Vol] 9.3 mmol/L 6.0-15.0 [facility] Serum or plasma erythropoiet in (EPO) measurement (units/volume)Ordered By: Aries Chavez on 12-28-2023 Erythropoietin (EPO) Qn 3.5 mIU/mL 2.6-18.5 [facility] Comment on above: [employer] [facility] DxI 800 Immunoassay SystemValues obtained with different assay methods or kits cannotbe used interchangeably. Results cannot be interpreted asabsolute evidence of the presence or absence of malignantdisease.Performed at: [employer] [address] [id number] Director: Juan Hendricks PhD, Phone: [phone] Erythropoietin (EPO) Qn Serum or plasma erythropoietin (EPO) measurement (units/volume) 2.6-18.5 [facility] Comment on above: [employer] DxI 800 Immunoassay SystemValues obtained with different assay methods or kits cannotbe used interchangeably. Results cannot be interpreted asabsolute evidence of the presence or absence of malignantdisease.Performed at: [facility] [id number] Director: Juan Hendricks PhD, Phone: [phone] Serum or plasma iron binding capacity measurement (mass/volume)Ordered By: Aries Chavez on 12-28-2023 Iron binding capacity [Mass/Vol] Iron binding capacity [Mass/volume] in Serum or Plasma 255-450 [facility] Serum or plasma iron saturat ion measurement (mass fraction)Ordered By: Aries Chavez on 12-28-2023 Iron saturation [Mass fraction] Iron saturation [Mass Fraction] in Serum or Plasma 20-50 [facility] Sodium [Moles/volume] in Ser um or PlasmaOrdered By: Aries Chavez on 12-28-2023 Sodium [Moles/Vol] 128 mmol/L 136-145 [facility] Thyrotropin [Units/volume] i n Serum or PlasmaOrdered By: Aries Chavez on 12-28-2023 TSH Qn 18.92 m[IU]/L 0.45-5.33 [facility] Thyroxine (T4) free [Mass/vo lume] in Serum or PlasmaOrdered By: Aries Chavez on 12-28-2023 Free T4 [Mass/Vol] 0.37 ng/dL 0.61-1.12 [facility] Transferrin [Mass/volume] in Serum or PlasmaOrdered By: Aries Chavez on 12-28-2023 Transferrin [Mass/Vol] 222 mg/dL 203- [facility] Transferrin [Mass/Vol] Transferrin [Mass /volume] in Serum or Plasma 362 [facility] Urea nitrogen [Mass/volume] in Serum or PlasmaOrdered By: Aries Chavez on 12-28-2023 Urea nitrogen [Mass/Vol] 14 mg/dL 04-25 [facility] Vitamin B12 ser/plasOrdered By: Aries Chavez on 12-28-2023 Cobalamin (Vitamin B12) [Mass/Vol] 333 pg/mL 180-914 [facility] Cobalamin (Vitamin B12) [Mass/Vol] Vitamin B12 ser/plas 180-914 [facility] WBC Auto (Bld) [#/Vol]Ordere d By: Aries Chavez on 12-28-2023 WBC (Bld) [#/Vol] 7.6 10*3/uL 3.8-11.6 [facility] Alanine aminotransferase [En zymatic activity/volume] in Serum or PlasmaOrdered By: Aries Chavez on 11-15-2023 ALT [Catalytic activity/Vol] 25 U/L [facility] Albumin [Mass/volume] in Ser um or Plasma by Bromocresol green (BCG) dye binding methoOrdered By: Aries Chavez on 11-15-2023 Albumin BCG dye [Mass/Vol] 3.3 g/dL 3.5-5.7 [facility] Alkaline phosphatase [Enzyma tic activity/volume] in Serum or PlasmaOrdered By: Aries Chavez on 11-15-2023 ALP [Catalytic activity/Vol] 109 U/L 34-104 [facility] Aspartate aminotransferase [ Enzymatic activity/volume] in Serum or PlasmaOrdered By: Aries Chavez on 11-15-2023 AST [Catalytic activity/Vol] 24 U/L 13-39 [facility] Basophils Auto (Bld) [#/Vol] Ordered By: Aries Chavez on 11-15-2023 Basophils (Bld) [#/Vol] 0.2 10*3/uL 0.0-0.2 [facility] Basophils/100 WBC Auto (Bld) Ordered By: Aries Chavez on 11-15-2023 Basophils/100 WBC (Bld) 2.9 % . [facility] Bilirubin.total [Mass/volume ] in Serum or PlasmaOrdered By: Aries Chavez on 11-15-2023 Bilirubin [Mass/Vol] 0.4 mg/dL 0.3-1.0 [facility] CBC W Auto Differential pane l (Bld)on 11-15-2023 Basophils (Bld) [#/Vol] 0.2 10*3/uL 0.0 - 0.2 10*3/uL [facility] Basophils/100 WBC Manual cnt (Syn fld) 2.9 % . [facility] Eosinophils (Bld) [#/Vol] 0.4 10*3/uL 0.0 - 0.45 10*3/uL [facility] Eosinophils/100 WBC Manual cnt (Syn fld) 5.2 % . [facility] Erythrocyte distribution width (RBC) [Ratio] 16.8 % High 11.9 - 15.3 % [facility] Hematocrit (Bld) [Volume fraction] 30.3 % Low 34.0 - 46.4 % [facility] Hemoglobin (Bld) [Mass/Vol] 9.7 g/dL Low 11.8 - 15.4 g/dL [facility] Interpretation and review of laboratory results Abnormal [facility] Lymphocytes (Bld) [#/Vol] 1.7 10*3/uL 1.00 - 4.8 10*3/uL [facility] Lymphocytes/100 WBC Manual cnt (Syn fld) 25.4 % . [facility] MCH (RBC) [Entitic mass] 26.4 pg 24.7 - 34.3 pg [facility] MCHC (RBC) [Mass/Vol] 32.0 g/dL 32.0 - 35.0 g/dL [facility] MCV (RBC) [Entitic vol] 82.7 fL 80 - 100 fL [facility] Monocytes (Bld) [#/Vol] 0.8 10*3/uL 0.0 - 0.8 10*3/uL [facility] Monocytes+Macrophages/1 00 WBC Manual cnt (Syn fld) 11.6 % . [facility] Neutrophils (Bld) [#/Vol] 3.8 10*3/uL 1.8 - 7.7 10*3/uL [facility] Neutrophils/100 WBC Manual cnt (Syn fld) 54.9 % . [facility] NRBC 0.0 /100{WBC} 0 - 0.5 /100{WBC} [facility] Platelet mean volume (Bld) [Entitic vol] 7.5 fL 6.3 - 10.7 fL [facility] Platelets (Bld) [#/Vol] 509 10*3/uL High 150 - 450 10*3/uL [facility] RBC LM.HPF (Urine sed) [#/Area] 3.67 /[HPF] 3.60 - 5.00 [facility] WBC (Bld) [#/Vol] 6.9 10*3/uL 3.8 - 11.6 10*3/uL [facility] WBC LM.HPF (Urine sed) [#/Area] 6.9 10*3/uL 3.8 - 11.6 10*3/uL [facility] Calcium [Mass/volume] in Ser um or PlasmaOrdered By: Aries Chavez on 11-15-2023 Calcium [Mass/Vol] 9.8 mg/dL 8.6-10.3 [facility] Carbon dioxide, total [Moles /volume] in Serum or PlasmaOrdered By: Aries Chavez on 11-15-2023 CO2 [Moles/Vol] 28.7 mmol/L 21.0-31.0 [facility] Chloride [Moles/volume] in S leena or PlasmaOrdered By: Aries Chavez on 11-15-2023 Chloride [Moles/Vol] 101 mmol/L 98-107 [facility] Creatinine [Mass/volume] in Serum or PlasmaOrdered By: Aries Chavez on 11-15-2023 Creatinine [Mass/Vol] 0.71 mg/dL 0.60-1.20 [facility] Eosinophils Auto (Bld) [#/Vo l]Ordered By: Aries Chavez on 11-15-2023 Eosinophils (Bld) [#/Vol] 0.4 10*3/uL 0.0-0.45 [facility] Eosinophils/100 WBC Auto (Bl d)Ordered By: Aries Chavez on 11-15-2023 Eosinophils/100 WBC (Bld) 5.2 % . [facility] Erythrocyte distribution wid th Auto (RBC) [Ratio]Ordered By: Aries Chavez on 11-15-2023 Erythrocyte distribution width (RBC) [Ratio] 16.8 % 11.9-15.3 [facility] Globulin Calc (S) [Mass/Vol] Ordered By: Aries Chavez on 11-15-2023 Globulin (S) [Mass/Vol] 4.6 g/dL [facility] Glucose [Mass/volume] in Ser um or PlasmaOrdered By: Aries Chavez on 11-15-2023 Glucose [Mass/Vol] 100 mg/dL 70-100 [facility] Comment on above: ADA recommended refe rence rangeRandom Glucose Reference Range is dependent on time and content of last meal. Glucose of more than 200 mg/dL in a nonstressed, ambulatory subject supports the diagnosis of Diabetes Mellitus. Hematocrit Auto (Bld) [Volum e fraction]Ordered By: Aries Chavez on 11-15-2023 Hematocrit (Bld) [Volume fraction] 30.3 % 34.0-46.4 [facility] Hemoglobin [Mass/volume] in BloodOrdered By: Aries Chavez on 11-15-2023 Hemoglobin (Bld) [Mass/Vol] 9.7 g/dL 11.8-15.4 [facility] Leukocytes [#/volume] correc gabriel for nucleated erythrocytes in Blood by Automated counOrdered By: Aries Chavez on 11-15-2023 WBC corrected for nucl RBC Auto (Bld) [#/Vol] 6.9 10*3/uL 3.8-11.6 [facility] Lymphocytes Auto (Bld) [#/Vo l]Ordered By: Aries Chavez on 11-15-2023 Lymphocytes (Bld) [#/Vol] 1.7 10*3/uL 1.00-4.8 [facility] Lymphocytes/100 WBC Auto (Bl d)Ordered By: Aries Chavez on 11-15-2023 Lymphocytes/100 WBC (Bld) 25.4 % . [facility] MCH Auto (RBC) [Entitic mass ]Ordered By: Aries Chavez on 11-15-2023 MCH (RBC) [Entitic mass] 26.4 pg 24.7-34.3 [facility] MCHC Auto (RBC) [Mass/Vol]Or dered By: Aries Chavez on 11-15-2023 MCHC (RBC) [Mass/Vol] 32.0 g/dL 32.0-35.0 [facility] MCV Auto (RBC) [Entitic vol] Ordered By: Aries Chavez on 11-15-2023 MCV (RBC) [Entitic vol] 82.7 fL 80-100 [facility] Monocytes Auto (Bld) [#/Vol] Ordered By: Aries Chavez on 11-15-2023 Monocytes (Bld) [#/Vol] 0.8 10*3/uL 0.0-0.8 [facility] Monocytes/100 WBC Auto (Bld) Ordered By: Aries Chavez on 11-15-2023 Monocytes/100 WBC (Bld) 11.6 % . [facility] Neutrophils Auto (Bld) [#/Vo l]Ordered By: Aries Chavez on 11-15-2023 Neutrophils (Bld) [#/Vol] 3.8 10*3/uL 1.8-7.7 [facility] Neutrophils/100 WBC Auto (Bl d)Ordered By: Aries Chavez on 11-15-2023 Neutrophils/100 WBC (Bld) 54.9 % . [facility] No Panel InformationOrdered By: Aries Chavez on 11-15-2023 Adrenocorticotropic Hormone 27.5 pg/mL 7.2-63.3 [facility] Comment on above: ACTH reference inter wendy for samples collected between 7 and10 AM.Performed at: [employer] [id number] Director: Juan Hendricks PhD, Phone: [phone] Estimated GFR (CKD-EPI) > 60.0 mL/Min [facility] Creatinine Clearance (Chem 65.11 [facility] Nucleated erythrocytes [Pres ence] in Blood by Automated countOrdered By: Aries Chavez on 11-15-2023 Nucleated RBC Auto Ql (Bld) 0.0 /100{WBC} 0-0.5 [facility] Platelet mean volume Auto (B ld) [Entitic vol]Ordered By: Aries Chavez on 11-15-2023 Platelet mean volume (Bld) [Entitic vol] 7.5 fL 6.3-10.7 [facility] Platelets Auto (Bld) [#/Vol] Ordered By: Aries Chavez on 11-15-2023 Platelets (Bld) [#/Vol] 509 10*3/uL 150-450 [facility] Potassium [Moles/volume] in Serum or PlasmaOrdered By: Aries Chavez on 11-15-2023 Potassium [Moles/Vol] 4.8 mmol/L 3.5-5.1 [facility] Protein [Mass/volume] in Ser um or PlasmaOrdered By: Aries Chavez on 11-15-2023 Protein [Mass/Vol] 7.9 g/dL 6.4-8.9 [facility] RBC Auto (Bld) [#/Vol]Ordere d By: Aries Chavez on 11-15-2023 RBC (Bld) [#/Vol] 3.67 10*6/uL 3.60-5.00 [facility] Random cortisol measurementO rdered By: Aries Chavez on 11-15-2023 Cortisol [Mass/Vol] 14.2 ug/dL [facility] Comment on above: [facility] crop scout and method:[employer] DXI, POLYCLONAL ANTIBODY CORTISOL ASSAY.Reference range: AM 6 - 24 ug/dl PM <10 ug/dl Serum or plasma albumin/glob ulin mass ratioOrdered By: Aries Chavez on 11-15-2023 Albumin/Globulin [Mass ratio] 0.7 {ratio} [facility] Serum or plasma anion gap de terminationOrdered By: Aries Chavez on 11-15-2023 Anion gap [Moles/Vol] 10.1 mmol/L 6.0-15.0 [facility] Sodium [Moles/volume] in Ser um or PlasmaOrdered By: Aries Chavez on 11-15-2023 Sodium [Moles/Vol] 135 mmol/L 136-145 [facility] Thyrotropin [Units/volume] i n Serum or PlasmaOrdered By: Aries Chavez on 11-15-2023 TSH Qn 0.01 m[IU]/L 0.45-5.33 [facility] Thyroxine (T4) free [Mass/vo lume] in Serum or PlasmaOrdered By: Aries Chavez on 11-15-2023 Free T4 [Mass/Vol] 2.10 ng/dL 0.61-1.12 [facility] Urea nitrogen [Mass/volume] in Serum or PlasmaOrdered By: Aries Chavez on 11-15-2023 Urea nitrogen [Mass/Vol] 16 mg/dL 7-25 [facility] WBC Auto (Bld) [#/Vol]Ordere d By: Aries Chavez on 11-15-2023 WBC (Bld) [#/Vol] 6.9 10*3/uL 3.8-11.6 [facility] Ferritin [Mass/volume] in Se rum or PlasmaOrdered By: Vannessa Perales on 10-05-2023 Ferritin [Mass/Vol] 994.8 ng/mL 11.0-306.8 [facility] Iron [Mass/volume] in Serum or PlasmaOrdered By: Vannessa Perales on 10-05-2023 Iron [Mass/Vol] 26 ug/dL 50-212 [facility] Iron binding capacity [Mass/ volume] in Serum or PlasmaOrdered By: Vannessa Perales on 10-05-2023 Iron binding capacity [Mass/Vol] 239 ug/dL 255-450 [facility] Iron saturation [Mass Fracti on] in Serum or PlasmaOrdered By: Vannessa Perales on 10-05-2023 Iron saturation [Mass fraction] 10.9 % 20-50 [facility] Transferrin [Mass/volume] in Serum or PlasmaOrdered By: Vannessa Perales on 10-05-2023 Transferrin [Mass/Vol] 171 mg/dL 203-362 [facility] Alanine aminotransferase [En zymatic activity/volume] in Serum or PlasmaOrdered By: Aries Chavez on 10-04-2023 ALT [Catalytic activity/Vol] 67 U/L 7-52 [facility] Albumin [Mass/volume] in Ser um or Plasma by Bromocresol green (BCG) dye binding methoOrdered By: Aries Chavez on 10-04-2023 Albumin BCG dye [Mass/Vol] 3.4 g/dL 3.5-5.7 [facility] Alkaline phosphatase [Enzyma tic activity/volume] in Serum or PlasmaOrdered By: Aries Chavez on 10-04-2023 ALP [Catalytic activity/Vol] 113 U/L 34-104 [facility] Aspartate aminotransferase [ Enzymatic activity/volume] in Serum or PlasmaOrdered By: Aries Chavez on 10-04-2023 AST [Catalytic activity/Vol] 22 U/L 13-39 [facility] Basophils Auto (Bld) [#/Vol] Ordered By: Aries Chavez on 10-04-2023 Basophils (Bld) [#/Vol] 0.1 10*3/uL 0.0-0.2 [facility] Basophils/100 WBC Auto (Bld) Ordered By: Aries Chavez on 10-04-2023 Basophils/100 WBC (Bld) 2.3 % . [facility] Bilirubin.total [Mass/volume ] in Serum or PlasmaOrdered By: Aries Chavez on 10-04-2023 Bilirubin [Mass/Vol] 0.3 mg/dL 0.3-1.0 [facility] Calcium [Mass/volume] in Ser um or PlasmaOrdered By: Aries Chavez on 10-04-2023 Calcium [Mass/Vol] 8.9 mg/dL 8.6-10.3 [facility] Carbon dioxide, total [Moles /volume] in Serum or PlasmaOrdered By: Aries Chavez on 10-04-2023 CO2 [Moles/Vol] 26.2 mmol/L 21.0-31.0 [facility] Chloride [Moles/volume] in S leena or PlasmaOrdered By: Aries Chavez on 10-04-2023 Chloride [Moles/Vol] 94 mmol/L 98-107 [facility] Creatinine [Mass/volume] in Serum or PlasmaOrdered By: Aries Chavez on 10-04-2023 Creatinine [Mass/Vol] 0.75 mg/dL 0.60-1.20 [facility] Eosinophils Auto (Bld) [#/Vo l]Ordered By: Aries Chavez on 10-04-2023 Eosinophils (Bld) [#/Vol] 0.2 10*3/uL 0.0-0.45 [facility] Eosinophils/100 WBC Auto (Bl d)Ordered By: Aries Chavez on 10-04-2023 Eosinophils/100 WBC (Bld) 2.8 % . [facility] Erythrocyte distribution wid th Auto (RBC) [Ratio]Ordered By: Aries Chavez on 10-04-2023 Erythrocyte distribution width (RBC) [Ratio] 18.4 % 11.9-15.3 [facility] Globulin Calc (S) [Mass/Vol] Ordered By: Aries Chavez on 10-04-2023 Globulin (S) [Mass/Vol] 4.5 g/dL [facility] Glucose [Mass/volume] in Ser um or PlasmaOrdered By: Aries Chavez on 10-04-2023 Glucose [Mass/Vol] 101 mg/dL 70-100 [facility] Comment on above: ADA recommended refe rence rangeRandom Glucose Reference Range is dependent on time and content of last meal. Glucose of more than 200 mg/dL in a nonstressed, ambulatory subject supports the diagnosis of Diabetes Mellitus. Hematocrit Auto (Bld) [Volum e fraction]Ordered By: Aries Chavez on 10-04-2023 Hematocrit (Bld) [Volume fraction] 26.2 % 34.0-46.4 [facility] Hemoglobin [Mass/volume] in BloodOrdered By: Aries Chavez on 10-04-2023 Hemoglobin (Bld) [Mass/Vol] 8.4 g/dL 11.8-15.4 [facility] Leukocytes [#/volume] correc gabriel for nucleated erythrocytes in Blood by Automated counOrdered By: Aries Chavez on 10-04-2023 WBC corrected for nucl RBC Auto (Bld) [#/Vol] 5.8 10*3/uL 3.8-11.6 [facility] Lymphocytes Auto (Bld) [#/Vo l]Ordered By: Aries Chavez on 10-04-2023 Lymphocytes (Bld) [#/Vol] 1.2 10*3/uL 1.00-4.8 [facility] Lymphocytes/100 WBC Auto (Bl d)Ordered By: Aries Chavez on 10-04-2023 Lymphocytes/100 WBC (Bld) 21.7 % . [facility] MCH Auto (RBC) [Entitic mass ]Ordered By: Aries Chavez on 10-04-2023 MCH (RBC) [Entitic mass] 25.3 pg 24.7-34.3 [facility] MCHC Auto (RBC) [Mass/Vol]Or dered By: Aries Chavez on 10-04-2023 MCHC (RBC) [Mass/Vol] 32.0 g/dL 32.0-35.0 [facility] MCV Auto (RBC) [Entitic vol] Ordered By: Aries Chavez on 10-04-2023 MCV (RBC) [Entitic vol] 79.1 fL 80-100 [facility] Monocytes Auto (Bld) [#/Vol] Ordered By: Aries Chavez on 10-04-2023 Monocytes (Bld) [#/Vol] 0.7 10*3/uL 0.0-0.8 [facility] Monocytes/100 WBC Auto (Bld) Ordered By: Aries Chavez on 10-04-2023 Monocytes/100 WBC (Bld) 11.5 % . [facility] Neutrophils Auto (Bld) [#/Vo l]Ordered By: Aries Chavez on 10-04-2023 Neutrophils (Bld) [#/Vol] 3.6 10*3/uL 1.8-7.7 [facility] Neutrophils/100 WBC Auto (Bl d)Ordered By: Aries Chavez on 10-04-2023 Neutrophils/100 WBC (Bld) 61.7 % . [facility] No Panel InformationOrdered By: Aries Chavez on 10-04-2023 Adrenocorticotropic Hormone 25.4 pg/mL 7.2-63.3 [facility] Comment on above: ACTH reference inter wendy for samples collected between 7 and10 AM.Performed at: [employer] Director: Juan Hendricks PhD, Phone: [phone] Estimated GFR (CKD-EPI) > 60.0 mL/Min [facility] Creatinine Clearance (Chem 59.72 [facility] Nucleated erythrocytes [Pres ence] in Blood by Automated countOrdered By: Aries Chavez on 10-04-2023 Nucleated RBC Auto Ql (Bld) 0.1 /100{WBC} 0-0.5 [facility] Platelet mean volume Auto (B ld) [Entitic vol]Ordered By: Aries Chavez on 10-04-2023 Platelet mean volume (Bld) [Entitic vol] 6.8 fL 6.3-10.7 [facility] Platelets Auto (Bld) [#/Vol] Ordered By: Aries Chavez on 10-04-2023 Platelets (Bld) [#/Vol] 404 10*3/uL 150-450 [facility] Potassium [Moles/volume] in Serum or PlasmaOrdered By: Aries Chavez on 10-04-2023 Potassium [Moles/Vol] 4.7 mmol/L 3.5-5.1 [facility] Protein [Mass/volume] in Ser um or PlasmaOrdered By: Aries Chavez on 10-04-2023 Protein [Mass/Vol] 7.9 g/dL 6.4-8.9 [facility] RBC Auto (Bld) [#/Vol]Ordere d By: Aries Chavez on 10-04-2023 RBC (Bld) [#/Vol] 3.32 10*6/uL 3.60-5.00 [facility] Random cortisol measurementO rdered By: Aries Chavez on 10-04-2023 Cortisol [Mass/Vol] 12.2 ug/dL [facility] Comment on above: [facility] crop scout and method:AM[employer]ITA [employer]EL DXI, POLYCLONAL ANTIBODY CORTISOL ASSAY.Reference range: AM 6 - 24 ug/dl PM <10 ug/dl Serum or plasma albumin/glob ulin mass ratioOrdered By: Aries Chavez on 10-04-2023 Albumin/Globulin [Mass ratio] 0.8 {ratio} [facility] Serum or plasma anion gap de terminationOrdered By: Aries Chavez on 10-04-2023 Anion gap [Moles/Vol] 9.5 mmol/L 6.0-15.0 [facility] Sodium [Moles/volume] in Ser um or PlasmaOrdered By: Aries Chavez on 10-04-2023 Sodium [Moles/Vol] 125 mmol/L 136-145 [facility] Thyrotropin [Units/volume] i n Serum or PlasmaOrdered By: Aries Chavez on 10-04-2023 TSH Qn 1.03 m[IU]/L 0.45-5.33 [facility] Thyroxine (T4) free [Mass/vo lume] in Serum or PlasmaOrdered By: Aries Chavez on 10-04-2023 Free T4 [Mass/Vol] 1.00 ng/dL 0.61-1.12 [facility] Urea nitrogen [Mass/volume] in Serum or PlasmaOrdered By: Aries Chavez on 10-04-2023 Urea nitrogen [Mass/Vol] 17 mg/dL 7-25 [facility] WBC Auto (Bld) [#/Vol]Ordere d By: Aries Chavez on 10-04-2023 WBC (Bld) [#/Vol] 5.8 10*3/uL 3.8-11.6 [facility] Anisocytosis LM Ql (Bld)Orde red By: Aries Chavez on 09-12-2023 Anisocytosis Ql (Bld) Moderate [facility] Anisocytosis Ql (Bld) Anisocytosis [Pres ence] in Blood by Light microscopy [facility] Automated erythrocytes count in urine sediment (number/area)Ordered By: Aries Chavez on 09-12-2023 RBC Auto (Urine sed) [#/Area] 5-9 [HPF] High 0-4 [facility] Automated leukocytes count i n urine sediment (number/area)Ordered By: Aries Chavez on 09-12-2023 WBC Auto (Urine sed) [#/Area] 5-9 [HPF] High 0-4 [facility] Bacteria [Presence] in Urine by AutomatedOrdered By: Aries Chavez on 09-12-2023 Bacteria Auto Ql (U) Bacteria [Presence] in Urine by Automated None Seen [facility] Bilirubin Test strip Ql (U)O rdered By: Aries Chavez on 09-12-2023 Bilirubin Ql (U) Bilirubin.total [Pre sence] in Urine by Test strip Negative [facility] Bilirubin Ql (U) Negative Negative [facility] Color Auto (U)Ordered By: Gregorio Chavez on 09-12-2023 Color (U) Yellow Yellow [facility] Color (U) Color of Urine by Auto Yellow Fi [facility] Erythrocytes [#/area] in Uri ne sediment by Automated countOrdered By: Aries Chavez on 09-12-2023 RBC Auto (Urine sed) [#/Area] Erythrocytes [#/area] in Urine sediment by Automated count High 0-4 [facility] Hypochromia LM Ql (Bld)Order ed By: Aries Chavez on 09-12-2023 Hypochromia Ql (Bld) Moderate [facility] Hypochromia Ql (Bld) Hypochromia [Presen ce] in Blood by Light microscopy [facility] Ketones Auto test strip (U) [Mass/Vol]Ordered By: Aries Chavez on 09-12-2023 Ketones (U) [Mass/Vol] Negative Negative [facility] Ketones (U) [Mass/Vol] Urine ketones naomi surement by automated test strip (mass/volume) Negative [facility] Laboratory - Microbiology an d Antimicrobial susceptibilityOrdered By: Aries Chavez on 09-12-2023 Bacteria identified Cx Nom (U) [facility] Bacteria identified Cx Nom (U) [facility] Laboratory - UrinalysisOrder ed By: Aries Chavez on 09-12-2023 Hyaline casts LM Ql (Urine sed) 0-8 [LPF] 0-8 [facility] Leukocytes [#/area] in Urine sediment by Automated countOrdered By: Aries Chavez on 09-12-2023 WBC Auto (Urine sed) [#/Area] Leukocytes [#/area] in Urine sediment by Automated count High 0-4 [facility] Microcytes LM Ql (Bld)Ordere d By: Aries Chavez on 09-12-2023 Microcytes Ql (Bld) Slight [facility] Microcytes Ql (Bld) Microcytes [Presence ] in Blood by Light microscopy [facility] Nitrite Test strip Ql (U)Ord ered By: Aries Chavez on 09-12-2023 Nitrite Ql (U) Nitrite [Presence] i n Urine by Test strip Negative [facility] Nitrite Ql (U) Negative Negative [facility] No Panel InformationOrdered By: Aries Chavez on 09-12-2023 Adrenocorticotropic Hormone 33.9 pg/mL 7.2-63.3 [facility] Comment on above: ACTH reference inter wendy for samples collected between 7 and10 AM.Performed at: [facility] [id number] Director: Juan Hendricks PhD, Phone: [phone] Ovalocyte detectionOrdered B y: Aries Chavez on 09-12-2023 Ovalocytes LM Ql (Bld) Slight [facility] Ovalocytes LM Ql (Bld) Ovalocyte detection [facility] Platelet adequacy [Presence] in Blood by Light microscopyOrdered By: Aries Chavez on 09-12-2023 Platelets LM Ql (Bld) Normal Normal [facility] Platelets LM Ql (Bld) Platelet adequacy [Presence] in Blood by Light microscopy Normal [facility] Platelet morphology finding [Identifier] in BloodOrdered By: Aries Chavez on 09-12-2023 Platelet morphology finding Nom (Bld) Normal Normal [facility] Platelet morphology finding Nom (Bld) Platelet morphology finding [Identifier] in Blood Normal [facility] Poikilocytosis [Presence] in Blood by Light microscopyOrdered By: Aries Chavez on 09-12-2023 Poikilocytosis LM Ql (Bld) Slight [facility] Poikilocytosis LM Ql (Bld) Poikilocytosis [Presence] in Blood by Light microscopy [facility] Polychromasia [Presence] in Blood by Light microscopyOrdered By: Aries Chavez on 09-12-2023 Polychromasia LM Ql (Bld) Slight [facility] Polychromasia LM Ql (Bld) Polychromasia [Presence] in Blood by Light microscopy [facility] Protein Auto test strip (U) [Mass/Vol]Ordered By: Aries Chavez on 09-12-2023 Protein (U) [Mass/Vol] 100 mg/dL High Negative [facility] Protein (U) [Mass/Vol] Urine protein naomi surement by automated test strip (mass/volume) High Negative [facility] RBC morphologyOrdered By: Gregorio Chavez on 09-12-2023 RBC morphology finding Nom (Bld) N/A [facility] RBC morphology finding Nom (Bld) RBC morphology [facility] Specific gravity Auto test s trip (U) [Rel density]Ordered By: Aries Chavez on 09-12-2023 Specific gravity (U) [Rel density] 1.012 1.001-1.03 0 [facility] Specific gravity (U) [Rel density] Specific gravity of Urine by Automated test strip 1.001-1.03 0 [facility] Squamous epithelial cells de tection in urine sediment by light microscopyOrdered By: Aries Chavez on 09-12-2023 Epithelial cells.squamous LM Ql (Urine sed) None seen [HPF] 0-2 [facility] Epithelial cells.squamous LM Ql (Urine sed) Squamous epithelial cells detection in urine sediment by light microscopy 0-2 [facility] Urine bacteria detection by automated methodOrdered By: Aries Chavez on 09-12-2023 Bacteria Auto Ql (U) None seen None Seen [facility] Urine clarity by refractomet ry automatedOrdered By: Aries Chavez on 09-12-2023 Clarity Refractometry automated (U) Clear Clear [facility] Clarity Refractometry automated (U) Urine clarity by refractometry automated Clear [facility] Urine culture routineOrdered By: Aries Chavez on 09-12-2023 Bacteria identified Cx Nom (U) 2 Days [facility] Bacteria identified Cx Nom (U) 2 Days [facility] Urine glucose measurement by automated test strip (mass/volume)Ordered By: Aries Chavez on 09-12-2023 Glucose Auto test strip (U) [Mass/Vol] Normal mg/dL Normal [facility] Glucose Auto test strip (U) [Mass/Vol] Urine glucose measurement by automated test strip (mass/volume) Normal [facility] Urine hemoglobin detection b y automated test stripOrdered By: Aries Chavez on 09-12-2023 Hemoglobin Auto test strip Ql (U) 2+ High Negative [facility] Hemoglobin Auto test strip Ql (U) Urine hemoglobin detection by automated test strip High Negative [facility] Urine leukocyte esterase det ection by automated test stripOrdered By: Aries Chavez on 09-12-2023 Leukocyte esterase Auto test strip Ql (U) 2+ High Negative [facility] Leukocyte esterase Auto test strip Ql (U) Urine leukocyte esterase detection by automated test strip High Negative [facility] Urobilinogen Auto test strip (U) [Mass/Vol]Ordered By: Aries Chavez on 09-12-2023 Urobilinogen (U) [Mass/Vol] Normal mg/dL Normal [facility] Urobilinogen (U) [Mass/Vol] Urine urobilinogen measurement by automated test strip (mass/volume) Normal [facility] Whole blood hypersegmented n eutrophils detection by light microscopyOrdered By: Aries Chavez on 09-12-2023 Neutrophils.hypersegmen gabriel LM Ql (Bld) Slight [facility] Neutrophils.hypersegmen gabriel LM Ql (Bld) Whole blood hypersegmented neutrophils detection by light microscopy [facility] Yeast detection in urine sed iment by light microscopyOrdered By: Aries Chavez on 09-12-2023 Yeast LM Ql (Urine sed) None seen [HPF] None Se en [facility] Yeast LM Ql (Urine sed) Yeast detection in urine sediment by light microscopy None Seen [facility] pH Auto test strip (U)Ordere d By: Aries Chavez on 09-12-2023 pH (U) 6.0 [pH] 5.0-9.0 [facility] pH (U) Urine pH measurement by automated test strip 5.0-9.0 [facility] Activated partial thrombopla stin time (aPTT) in platelet poor plasma by coagulation aOrdered By: Aries Chavez on 08-22-2023 aPTT Coag (PPP) [Time] 28.9 s 25.1-36.5 [facility] Comment on above: A hematocrit value g reater than 55% may lead to inaccurate results in coagulation testing. Patients having hematocrit values >55% require a special collection tube for coagulation studies. Please contact the laboratory at [phone] for redraw instructions. INR in Platelet poor plasma by Coagulation assayOrdered By: Aries Chavez on 08-22-2023 INR Coag (PPP) [Relative time] 1.1 {INR} [facility] Comment on above: INR Therapeutic Rang [...] 08-22-2023 Platelets (Bld) [#/Vol] 368 10*3/uL 150-450 [facility] Prothrombin time (PT)Ordered By: Aries Chavez on 08-22-2023 PT Coag (PPP) [Time] 13.1 s 9.0-12.9 [facility] Comment on above: A hematocrit value g reater than 55% may lead to inaccurate results in coagulation testing. Patients having hematocrit values >55% require a special collection tube for coagulation studies. Please contact the laboratory at [phone] for redraw instructions. Alanine aminotransferase [En zymatic activity/volume] in Serum or PlasmaOrdered By: Aries Chavez on 07-31-2023 ALT [Catalytic activity/Vol] 40 U/L 7-52 [facility] Albumin [Mass/volume] in Ser um or Plasma by Bromocresol green (BCG) dye binding methoOrdered By: Aries Chavez on 07-31-2023 Albumin BCG dye [Mass/Vol] 3.7 g/dL 3.5-5.7 [facility] Alkaline phosphatase [Enzyma tic activity/volume] in Serum or PlasmaOrdered By: Aries hCavez on 07-31-2023 ALP [Catalytic activity/Vol] 91 U/L 34-104 [facility] Aspartate aminotransferase [ Enzymatic activity/volume] in Serum or PlasmaOrdered By: Aries Chavez on 07-31-2023 AST [Catalytic activity/Vol] 12 U/L 13-39 [facility] Automated erythrocytes count in urine sediment (number/area)Ordered By: Aries Chavez on 07-31-2023 RBC Auto (Urine sed) [#/Area] 5-9 [HPF] 0-4 [facility] Automated leukocytes count i n urine sediment (number/area)Ordered By: Aries Chavez on 07-31-2023 WBC Auto (Urine sed) [#/Area] None seen [HPF] 0-4 [facility] Basophils Auto (Bld) [#/Vol] Ordered By: Aries Chavez on 07-31-2023 Basophils (Bld) [#/Vol] 0.2 10*3/uL 0.0-0.2 [facility] Basophils/100 WBC Auto (Bld) Ordered By: Aries Chavez on 07-31-2023 Basophils/100 WBC (Bld) 2.0 % . F [facility] Bilirubin Test strip Ql (U)O rdered By: Aries Chavez on 07-31-2023 Bilirubin Ql (U) See comment Negative [facility] Comment on above: Unable to obtain acc urate result due to color interference. Bilirubin.total [Mass/volume ] in Serum or PlasmaOrdered By: Aries Chavez on 07-31-2023 Bilirubin [Mass/Vol] 0.4 mg/dL 0.3-1.0 [facility] Calcium [Mass/volume] in Ser um or PlasmaOrdered By: Aries Chavez on 07-31-2023 Calcium [Mass/Vol] 9.6 mg/dL 8.6-10.3 [facility] Carbon dioxide, total [Moles /volume] in Serum or PlasmaOrdered By: Aries Chavez on 07-31-2023 CO2 [Moles/Vol] 24.3 mmol/L 21.0-31.0 [facility] Chloride [Moles/volume] in S leena or PlasmaOrdered By: Aries Chavez on 07-31-2023 Chloride [Moles/Vol] 94 mmol/L 98-107 [facility] Color Auto (U)Ordered By: Gregorio Chavez on 07-31-2023 Color (U) Elayne Yellow [facility] Creatinine [Mass/volume] in Serum or PlasmaOrdered By: Aries Chavez on 07-31-2023 Creatinine [Mass/Vol] 0.91 mg/dL 0.60-1.20 [facility] Eosinophils Auto (Bld) [#/Vo l]Ordered By: Aries Chavez on 07-31-2023 Eosinophils (Bld) [#/Vol] 0.1 10*3/uL 0.0-0.45 [facility] Eosinophils/100 WBC Auto (Bl d)Ordered By: Aries Chavez on 07-31-2023 Eosinophils/100 WBC (Bld) 1.8 % . [facility] Erythrocyte distribution wid th Auto (RBC) [Ratio]Ordered By: Aries Chavez on 07-31-2023 Erythrocyte distribution width (RBC) [Ratio] 15.4 % 11.9-15.3 [facility] Ferritin [Mass/volume] in Se rum or PlasmaOrdered By: Aries Chavez on 07-31-2023 Ferritin [Mass/Vol] 342.0 ng/mL 11.0-306.8 [facility] Globulin Calc (S) [Mass/Vol] Ordered By: Aries Chavez on 07-31-2023 Globulin (S) [Mass/Vol] 4.6 g/dL [facility] Glucose [Mass/volume] in Ser um or PlasmaOrdered By: rAies Chavez on 07-31-2023 Glucose [Mass/Vol] 105 mg/dL 70-100 [facility] Comment on above: ADA recommended refe rence rangeRandom Glucose Reference Range is dependent on time and content of last meal. Glucose of more than 200 mg/dL in a nonstressed, ambulatory subject supports the diagnosis of Diabetes Mellitus. Hematocrit Auto (Bld) [Volum e fraction]Ordered By: Aries Chavez on 07-31-2023 Hematocrit (Bld) [Volume fraction] 22.5 % 34.0-46.4 [facility] Hemoglobin [Mass/volume] in BloodOrdered By: Aries Chavez on 07-31-2023 Hemoglobin (Bld) [Mass/Vol] 7.3 g/dL 11.8-15.4 [facility] Iron [Mass/volume] in Serum or PlasmaOrdered By: Aries Chavez on 07-31-2023 Iron [Mass/Vol] 24 ug/dL 50-212 [facility] Iron binding capacity [Mass/ volume] in Serum or PlasmaOrdered By: Aries Chavez on 07-31-2023 Iron binding capacity [Mass/Vol] 304 ug/dL 255-450 [facility] Iron saturation [Mass Fracti on] in Serum or PlasmaOrdered By: Aries Chavez on 07-31-2023 Iron saturation [Mass fraction] 7.9 % 20-50 [facility] Ketones Auto test strip (U) [Mass/Vol]Ordered By: Aries Chavez on 07-31-2023 Ketones (U) [Mass/Vol] See comment Negative [facility] Comment on above: Unable to obtain acc urate result due to color interference. Laboratory - Microbiology an d Antimicrobial susceptibilityOrdered By: Aries Chavez on 07-31-2023 Bacteria identified Cx Nom (U) [facility] Bacteria identified Cx Nom (U) [facility] Laboratory - UrinalysisOrder ed By: Aries Chavez on 07-31-2023 Hyaline casts LM Ql (Urine sed) None seen [LPF] 0-8 [facility] Leukocytes [#/volume] correc gabriel for nucleated erythrocytes in Blood by Automated counOrdered By: Aries Chavez on 07-31-2023 WBC corrected for nucl RBC Auto (Bld) [#/Vol] 8.2 10*3/uL 3.8-11.6 [facility] Lymphocytes Auto (Bld) [#/Vo l]Ordered By: Aries Chavez on 07-31-2023 Lymphocytes (Bld) [#/Vol] 1.8 10*3/uL 1.00-4.8 [facility] Lymphocytes/100 WBC Auto (Bl d)Ordered By: Aries Chavez on 07-31-2023 Lymphocytes/100 WBC (Bld) 22.3 % . [facility] MCH Auto (RBC) [Entitic mass ]Ordered By: Aries Chavez on 07-31-2023 MCH (RBC) [Entitic mass] 22.8 pg 24.7-34.3 [facility] MCHC Auto (RBC) [Mass/Vol]Or dered By: Aries Chavez on 07-31-2023 MCHC (RBC) [Mass/Vol] 32.3 g/dL 32.0-35.0 [facility] MCV Auto (RBC) [Entitic vol] Ordered By: Aries Chavez on 07-31-2023 MCV (RBC) [Entitic vol] 70.8 fL 80-100 [facility] Monocytes Auto (Bld) [#/Vol] Ordered By: Aries Chavez on 07-31-2023 Monocytes (Bld) [#/Vol] 0.7 10*3/uL 0.0-0.8 [facility] Monocytes/100 WBC Auto (Bld) Ordered By: Aries Chavez on 07-31-2023 Monocytes/100 WBC (Bld) 8.2 % . [facility] Neutrophils Auto (Bld) [#/Vo l]Ordered By: Aries Chavez on 07-31-2023 Neutrophils (Bld) [#/Vol] 5.4 10*3/uL 1.8-7.7 [facility] Neutrophils/100 WBC Auto (Bl d)Ordered By: Aries Chavez on 07-31-2023 Neutrophils/100 WBC (Bld) 65.7 % . [facility] Nitrite Test strip Ql (U)Ord ered By: Aries Chavez on 07-31-2023 Nitrite Ql (U) See comment Negative [facility] Comment on above: Unable to obtain acc urate result due to color interference. No Panel InformationOrdered By: Aries Chavez on 07-31-2023 Estimated GFR (CKD-EPI) > 60.0 mL/Min [facility] Creatinine Clearance (Chem 53.24 [facility] Nucleated erythrocytes [Pres ence] in Blood by Automated countOrdered By: Aries Chavez on 07-31-2023 Nucleated RBC Auto Ql (Bld) 0.1 /100{WBC} 0-0.5 [facility] Platelet mean volume Auto (B ld) [Entitic vol]Ordered By: Aries Chavez on 07-31-2023 Platelet mean volume (Bld) [Entitic vol] 7.7 fL 6.3-10.7 [facility] Platelets Auto (Bld) [#/Vol] Ordered By: Aries Chavez on 07-31-2023 Platelets (Bld) [#/Vol] 487 10*3/uL 150-450 [facility] Potassium [Moles/volume] in Serum or PlasmaOrdered By: Aries Chavez on 07-31-2023 Potassium [Moles/Vol] 5.3 mmol/L 3.5-5.1 [facility] Protein Auto test strip (U) [Mass/Vol]Ordered By: Aries Chavez on 07-31-2023 Protein (U) [Mass/Vol] See comment Negative [facility] Comment on above: Unable to obtain acc urate result due to color interference. Protein [Mass/volume] in Ser um or PlasmaOrdered By: Aries Chavez on 07-31-2023 Protein [Mass/Vol] 8.3 g/dL 6.4-8.9 [facility] RBC Auto (Bld) [#/Vol]Ordere d By: Aries Chavez on 07-31-2023 RBC (Bld) [#/Vol] 3.18 10*6/uL 3.60-5.00 [facility] Serum or plasma albumin/glob ulin mass ratioOrdered By: Aries Chavez on 07-31-2023 Albumin/Globulin [Mass ratio] 0.8 {ratio} [facility] Serum or plasma anion gap de terminationOrdered By: Aries Chavez on 07-31-2023 Anion gap [Moles/Vol] 14.0 mmol/L 6.0-15.0 [facility] Sodium [Moles/volume] in Ser um or PlasmaOrdered By: Aries Chavez on 07-31-2023 Sodium [Moles/Vol] 127 mmol/L 136-145 [facility] Specific gravity Auto test s trip (U) [Rel density]Ordered By: Aries Chavez on 07-31-2023 Specific gravity (U) [Rel density] 1.015 1.001-1.03 0 [facility] Squamous epithelial cells de tection in urine sediment by light microscopyOrdered By: Aries Chavez on 07-31-2023 Epithelial cells.squamous LM Ql (Urine sed) 0-1 [HPF] 0-2 [facility] Transferrin [Mass/volume] in Serum or PlasmaOrdered By: Aries Chavez on 07-31-2023 Transferrin [Mass/Vol] 217 mg/dL 203-362 [facility] Urea nitrogen [Mass/volume] in Serum or PlasmaOrdered By: Aries Chavez on 07-31-2023 Urea nitrogen [Mass/Vol] 15 mg/dL 7-25 [facility] Urine bacteria detection by automated methodOrdered By: Aries Chavez on 07-31-2023 Bacteria Auto Ql (U) None seen None Seen [facility] Urine clarity by refractomet ry automatedOrdered By: Aries Chavez on 07-31-2023 Clarity Refractometry automated (U) Turbid Clear [facility] Urine culture routineOrdered By: Aries Chavez on 07-31-2023 Bacteria identified Cx Nom (U) 2 Days [facility] Bacteria identified Cx Nom (U) 2 Days [facility] Urine glucose measurement by automated test strip (mass/volume)Ordered By: Aries Chavez on 07-31-2023 Glucose Auto test strip (U) [Mass/Vol] See comment Normal [facility] Comment on above: Unable to obtain acc urate result due to color interference. Urine hemoglobin detection b y automated test stripOrdered By: Aries Chavez on 07-31-2023 Hemoglobin Auto test strip Ql (U) See comment Negative [facility] Comment on above: Unable to obtain acc urate result due to color interference. Urine leukocyte esterase det ection by automated test stripOrdered By: Aries Chavez on 07-31-2023 Leukocyte esterase Auto test strip Ql (U) See comment Negative [facility] Comment on above: Unable to obtain acc urate result due to color interference. Urobilinogen Auto test strip (U) [Mass/Vol]Ordered By: Aries Chavez on 07-31-2023 Urobilinogen (U) [Mass/Vol] See comment Normal [facility] Comment on above: Unable to obtain acc urate result due to color interference. WBC Auto (Bld) [#/Vol]Ordere d By: Aries Chavez on 07-31-2023 WBC (Bld) [#/Vol] 8.2 10*3/uL 3.8-11.6 [facility] pH Auto test strip (U)Ordere d By: Aries Chavez on 07-31-2023 pH (U) See comment 5.0-9.0 [facility] Comment on above: Unable to obtain acc urate result due to color interference. PROF CHEM 8 (BAS METB)on Anion gap [Moles/Vol] 13.5 mmol/L Normal [facility] Comment on above: Performed By: #### N A #### [facility] [address] [place] [address] Dr. Allen Smith Calcium [Mass/Vol] 9.6 mg/dL Normal 8.5-10.1 [facility] Comment on above: Performed By: #### N A #### [facility] [address] [place] [address] Dr. Allen Smith Chloride [Moles/Vol] 95 mmol/L Critically low 98-107 [facility] Comment on above: Performed By: #### N A #### [facility] [address] [place] [address] Dr. Allen Smith CO2 [Moles/Vol] 27.1 mmol/L Normal 21.0-32.0 [facility] Comment on above: Performed By: #### N A #### [facility] [address] [place] [address] Dr. Allen Smith Creatinine [Mass/Vol] 0.93 mg/dL Normal 0.55-1.02 [facility] Comment on above: Performed By: #### N A #### [facility] [address] [place] [address] Dr. Allen Smith EGFR-AF [place]OREAN >60 Normal >=60 [facility] Comment on above: Performed By: #### N A #### [facility] [address] [place] [address] Dr. Allen Smith EGFR-NON AF [place]AN 60 mL/min/1.73m2 Normal >=60 [facility] Comment on above: Performed By: #### N A #### [facility] [address] [place] [address] Dr. Allen Smith Glucose [Mass/Vol] 123 mg/dL Critically high 74-106 [facility] Comment on above: Performed By: #### N A #### [facility] [address] [place] [address] Dr. Allen Smith Potassium [Moles/Vol] 4.6 mmol/L Normal 3.5-5.1 [facility] Comment on above: Performed By: #### N A #### [facility] [address] [place] [address] Dr. Allen Smith Sodium [Moles/Vol] 131 mmol/L Critically low 136-145 Th e [facility] Comment on above: Performed By: #### N A #### [facility] [address] [place] [address] Dr. Allen Smith Urea nitrogen [Mass/Vol] 8.0 mg/dL Normal 7.0-18.0 [facility] Comment on above: Performed By: #### N A #### [facility] [address] [place] [address] Dr. Allen Smith Urea nitrogen/Creatinine [Mass ratio] 8.6 mg/mg Normal [facility] Comment on above: Performed By: #### N A #### [facility] [address] [place] [address] Dr. Allen Smith BNPon 02-07-2023 Natriuretic peptide B (Bld) [Mass/Vol] 1572.0 pg/mL Critically high <=900.0 [facility] Comment on above: Performed By: #### N A #### [facility] [address] [place] [address] Dr. Allen Smith CBC AUTO DIFFon 02-07-2023 BASO # 0.1 103/ul Normal 0.0-0.1 [facility] Comment on above: Performed By: #### C BC #### [facility] [address] [place] [address] Dr. Allen Smith Basophils/100 WBC (Bld) 0.7 % Normal 0.2-2.0 [facility] Comment on above: Performed By: #### C BC #### [facility] [address] [place] [address] Dr. Allen Smith EO # 0.2 103/ul Normal 0.0-0.7 [facility] Comment on above: Performed By: #### C BC #### [facility] [address] [place] [address] Dr. Allen Smith Eosinophils/100 WBC (Bld) 2.8 % Normal 0.9-7.0 [facility] Comment on above: Performed By: #### C BC #### [facility] [address] [place] [address] Dr. Allen Smith Erythrocyte distribution width (RBC) [Ratio] 15.2 % Critically high 11.0-15.0 [facility] Comment on above: Performed By: #### C BC #### [facility] [address] [place] [address] Dr. Allen Smith Hematocrit (Bld) [Volume fraction] 29.9 % Critically low 36.0-48.0 [facility] Comment on above: Performed By: #### C BC #### [facility] [address] [place] [address] Dr. Allen Smith Hemoglobin (Bld) [Mass/Vol] 9.4 g/dL Critically low 12.0-16.0 [facility] Comment on above: Performed By: #### C BC #### [facility] [address] [place] [address] Dr. Allen Smith IG # 0.03 10e3/ul Normal 0.00-0.03 [facility] Comment on above: Performed By: #### C BC #### [facility] [address] [place] [address] Dr. Allen Smith IG % 0.4 % Normal 0.0-0.5 [facility] Comment on above: Performed By: #### C BC #### [facility] [address] [place] [address] Dr. Allen Smith LYMPH # 1.5 103/ul Normal 1.2-3.8 [facility] Comment on above: Performed By: #### C BC #### [facility] [address] [place] [address] Dr. Allen Smith Lymphocytes/100 WBC (Bld) 18.0 % Critically low 20.5-60.0 [facility] Comment on above: Performed By: #### C BC #### [facility] [address] [place] [address] Dr. Allen Smith MANUAL DIFF REQ NO Normal [facility] Comment on above: Performed By: #### C BC #### [facility] [address] [place] [address] Dr. Allen Smith MCH (RBC) [Entitic mass] 24.7 pg Critically low 26.7-34.0 [facility] Comment on above: Performed By: #### C BC #### [facility] [address] [place] [address] Dr. Allen Smith MCHC (RBC) [Mass/Vol] 31.4 g/dL Normal 29.9-35.2 [facility] Comment on above: Performed By: #### C BC #### [facility] [address] [place] [address] Dr. Allen Smith MCV (RBC) [Entitic vol] 78.7 fL Critically low 81.0-99. 0 [facility] Comment on above: Performed By: #### C BC #### [facility] [address] [place] [address] Dr. Allen Smith MONO # 0.8 103/ul Normal 0.3-0.8 [facility] Comment on above: Performed By: #### C BC #### [facility] [address] [place] [address] Dr. Allen Smith Monocytes/100 WBC (Bld) 9.5 % Normal 1.7-12.0 [facility] Comment on above: Performed By: #### C BC #### [facility] [address] [place] [address] Dr. Allen Smith NEUT # 5.7 103/ul Normal 1.4-6.5 [facility] Comment on above: Performed By: #### C BC #### [facility] [address] [place] [address] Dr. Allen Smith Neutrophils/100 WBC (Bld) 68.6 % Normal 43.0-75.0 [facility] Comment on above: Performed By: #### C BC #### [facility] [address] [place] [address] Dr. Allen Smith Platelet mean volume (Bld) [Entitic vol] 10.2 fL Normal 9.5-13.5 [facility] Comment on above: Performed By: #### C BC #### [facility] [address] [place] [address] Dr. Allen Smith PLT 324 103/ul Normal 150-450 [facility] Comment on above: Performed By: #### C BC #### [facility] [address] [address] [address] Allen Smith RBC 3.80 106/ul Critically low 4.20-5.40 [facility] Comment on above: Performed By: #### C BC #### [facility] [address] [address] [address] Allen Smith WBC 8.3 103/ul Normal 4.0-11.0 [facility] Comment on above: Performed By: #### C BC #### [facility] [address] [place] [address] Dr. Allen Smith PROF CHEM 8 (BAS METB)on Anion gap [Moles/Vol] 7.5 mmol/L Normal [facility] Comment on above: Performed By: #### N A #### [facility] [address] [place] [address] Dr. Allen Smith Calcium [Mass/Vol] 9.1 mg/dL Normal 8.5-10.1 [facility] Comment on above: Performed By: #### N A #### [facility] [address] [place] [address] Dr. Allen Smith Chloride [Moles/Vol] 97 mmol/L Critically low 98-107 [facility] Comment on above: Performed By: #### N A #### [facility] [address] [place] [address] Dr. Allen Smith CO2 [Moles/Vol] 30.9 mmol/L Normal 21.0-32.0 [facility] Comment on above: Performed By: #### N A #### [facility] [address] [place] [address] Dr. Allen Smith Creatinine [Mass/Vol] 0.84 mg/dL Normal 0.55-1.02 [facility] Comment on above: Performed By: #### N A #### [facility] [address] [place] [address] Dr. Allen Smith EGFR-AF SINGAPOREAN >60 Normal >=60 [facility] Comment on above: Performed By: #### N A #### [facility] [address] [address] [address] Allen Smith EGFR-NON AF SINGAPOREAN >60 Normal >=60 [facility] Comment on above: Performed By: #### N A #### [facility] [address] [address] [address] Allen Smith Glucose [Mass/Vol] 111 mg/dL Critically high 74-106 T [facility] Comment on above: Performed By: #### N A #### [facility] [address] [address] [address] Allen Smith Potassium [Moles/Vol] 4.4 mmol/L Normal 3.5-5.1 [facility] Comment on above: Performed By: #### N A #### [facility] [address] [place] [address] Dr. Allen Smith Sodium [Moles/Vol] 131 mmol/L Critically low 136-145 [facility] Comment on above: Performed By: #### N A #### [facility] [address] [place] [address] Dr. Allen Smith Urea nitrogen [Mass/Vol] 8.0 mg/dL Normal 7.0-18.0 [facility] Comment on above: Performed By: #### N A #### [facility] [address] [place] [address] Dr. Allen Smith Urea nitrogen/Creatinine [Mass ratio] 9.5 mg/mg Normal [facility] Comment on above: Performed By: #### N A #### [facility] [address] [place] [address] Dr. Allen Smith BLOOD GASES BTYon 01-25-2023 02 MODE VENTILATOR Normal [facility] Comment on above: Performed By: #### A BG #### [facility] [address] [place] [address] Dr. Allen Smith ALLENS TEST Positive [facility] Comment on above: Performed By: #### A BG #### [facility] [address] [place] [address] Dr. Allen Smith Base excess Calc (Bld) [Moles/Vol] -2.5000 mmol/L Critically low -2.0-2.0 [facility] Comment on above: Performed By: #### A BG #### [facility] [address] [place] [address] Dr. Allen Smith BIPAP PRESSURE Normal [facility] Comment on above: Performed By: #### A BG #### [facility] [address] [place] [address] Dr. Allen Smith CPAP [facility] Comment on above: Performed By: #### A BG #### [facility] [address] [place] [address] Dr. Allen Smith FIO2 40.00 % [facility] Comment on above: Performed By: #### A BG #### [facility] [address] [place] [address] Dr. Aleln Smith HCO3 (Bld) [Moles/Vol] 24.1 mmol/L Normal 22.0-26.0 [facility] Comment on above: Performed By: #### A BG #### [facility] [address] [place] [address] Dr. Allen Smith LPM [facility] Comment on above: Performed By: #### A BG #### [facility] [address] [place] [address] Dr. Allen Smith MINUTE VOLUME Normal [facility] Comment on above: Performed By: #### A BG #### [facility] [address] [place] [address] Dr. Allen Smith Oxygen (Bld) [Partial pressure] 85.1 mm[Hg] Normal 80.0-100.0 [facility] Comment on above: Performed By: #### A BG #### [facility] [address] [place] [address] Dr. Allen Smith Oxygen saturation in Blood 96.2 % Normal 95.0-100.0 [facility] Comment on above: Performed By: #### A BG #### [facility] [address] [place] [address] Dr. Allen Smith PCO2 50.1 mmHg Critically high 35.0-45.0 [facility] Comment on above: Performed By: #### A BG #### [facility] [address] [address] [address] Allen Smith PEEP 5 [facility] Comment on above: Performed By: #### A BG #### [facility] [address] [place] [address] Dr. Allen Smith pH (Bld) 7.290 [pH] Critically low 7.350-7.45 0 [facility] Comment on above: Performed By: #### A BG #### [facility] [address] [place] [address] Dr. Allen Smith PIP [facility] Comment on above: Performed By: #### A BG #### [facility] [address] [place] [address] Dr. Allen Smith PS [facility] Comment on above: Performed By: #### A BG #### [facility] [address] [place] [address] Dr. Allen Smith PUNCTURE SITE RR [facility] Comment on above: Performed By: #### A BG #### [facility] [address] [place] [address] Dr. Allen Smith RATE 12 bpm [facility] Comment on above: Performed By: #### A BG #### [facility] [address] [place] [address] Dr. Allen Smith VENT MODE ac [facility] Comment on above: Performed By: #### A BG #### [facility] [address] [place] [address] Dr. Allen Smith VT 450 ML [facility] Comment on above: Result Comment: Prev iously reported as: 400 On 01/25/2023 17:03 By GC1 Performed By: #### A BG #### [facility] [address] [place] [address] Dr. Allen Smith 02 MODE NASAL CANNULA [facility] Comment on above: Performed By: #### T SH #### [facility] [address] [address] [address] Allen Smith ALLENS TEST Positive [facility] Comment on above: Performed By: #### T SH #### [facility] [address] [address] [address] Allen Smith Base excess Calc (Bld) [Moles/Vol] -2.9000 mmol/L Critically low -2.0-2.0 [facility] Comment on above: Performed By: #### T SH #### [facility] [address] [place] [address] Dr. Allen Smith BIPAP PRESSURE [facility] Comment on above: Performed By: #### T SH #### [facility] [address] [place] [address] Dr. Allen Smith CPAP [facility] Comment on above: Performed By: #### T SH #### [facility] [address] [place] [address] Dr. Allen Smith FIO2 [facility] Comment on above: Performed By: #### T SH #### [facility] [address] [place] [address] Dr. Allen Smith HCO3 (Bld) [Moles/Vol] 24.2 mmol/L Normal 22.0-26.0 [facility] Comment on above: Performed By: #### T SH #### [facility] [address] [place] [address] Dr. Allen Smith LPM 2 [facility] Comment on above: Performed By: #### T SH #### [facility] [address] [place] [address] Dr. Allen Smith MINUTE VOLUME [facility] Comment on above: Performed By: #### T SH #### [facility] [address] [place] [address] Dr. Allen Smith Oxygen (Bld) [Partial pressure] 70.6 mm[Hg] Critically low 80.0-100.0 [facility] Comment on above: Performed By: #### T SH #### [facility] [address] [place], [place] [id number] Dr. Allen Smith Oxygen saturation in Blood 91.5 % Critically low 95.0-100.0 [facility] Comment on above: Performed By: #### T SH #### [facility] [address] [place] [address] Dr. Allen Smith PCO2 54.7 mmHg Critically high 35.0-45.0 [facility] Comment on above: Performed By: #### T SH #### [facility] [address] [place] [address] Dr. Allen Smith [facility] Comment on above: Performed By: #### T SH #### [facility] [address] [place] [address] Dr. Allen Smith pH (Bld) 7.255 [pH] Critically low 7.350-7.45 0 [facility] Comment on above: Performed By: #### T SH #### [facility] [address] [place] [address] Dr. Allen Smith [facility] Comment on above: Performed By: #### T SH #### [facility] [address] [place] [address] Dr. Allen Smith [facility] Comment on above: Performed By: #### T SH #### [facility] [address] [place] [address] Dr. Allen Smith PUNCTURE SITE RR [facility] Comment on above: Performed By: #### T SH #### [facility] [address] [place] [address] Dr. Allen Smith [facility] Comment on above: Performed By: #### T SH #### [facility] [address] [place] [address] Dr. Allen Smith VENT MODE [facility] Comment on above: Performed By: #### T SH #### [facility] [address] [place] [address] Dr. Allen Smith [facility] Comment on above: Performed By: #### T SH #### [facility] [address] [place] [address] Dr. Allen Smith BNPon 01-25-2023 Natriuretic peptide B (Bld) [Mass/Vol] 16715.0 pg/mL Critically high <=900.0 [facility] Comment on above: Performed By: #### B MANAGER OFFICE, CMP #### [facility] [address] [place] [address] Dr. Allen Smith CARDIAC LI 3-6on 3 CK [Catalytic activity/Vol] 346 U/L Critically high 26-192 [facility] Comment on above: Performed By: #### T SH #### [facility] [address] [place] [address] Dr. Allen Smith CK.MB [Mass/Vol] 15.70 ng/mL Critically high <=3.60 [facility] Comment on above: Performed By: #### T SH #### [facility] [address] [place] [address] Dr. Allen Smith HSTROP 1206.7 pg/mL Critically high 4.0-51.3 [facility] Comment on above: Result Comment: CUT- OFF POINTS HAVE BEEN ESTABLISHED BASED ON THE FOURTH UNIVERSAL DEFINITIONS OF MYOCARDIAL INFARCTION. THE UPPER REFERENCE LIMIT (URL) OF TROPONIN, DEFINED THE 99TH PERCENTILE OF cTnI DISTRIBUTION IN A REFERENCE POPULATION, HAS BEEN CONFIRMED THE DECISION THRESHOLD FOR IA DIAGNOSIS. Performed By: #### T SH #### [facility] [address] [place] [address] Dr. Allen Smith CBC AUTO DIFFon 01-25-2023 BASO # 0.0 103/ul Normal 0.0-0.1 [facility] Comment on above: Performed By: #### T SH #### [facility] [address] [place] [address] Dr. Allen Smith Basophils/100 WBC (Bld) 0.1 % Critically low 0.2-2.0 [facility] Comment on above: Performed By: #### T SH #### [facility] [address] [place] [address] Dr. Allen Smith EO # 0.0 103/ul Normal 0.0-0.7 [facility] Comment on above: Performed By: #### T SH #### [facility] [address] [place] [address] Dr. Allen Smith Eosinophils/100 WBC (Bld) 0.0 % Critically low 0.9-7.0 [facility] Comment on above: Performed By: #### T SH #### [facility] [address] [place] [address] Dr. Allen Smith Erythrocyte distribution width (RBC) [Ratio] 13.4 % Normal 11.0-15.0 [facility] Comment on above: Performed By: #### T SH #### [facility] [address] [place] [address] Dr. Allen Smith Hematocrit (Bld) [Volume fraction] 30.2 % Critically low 36.0-48.0 [facility] Comment on above: Performed By: #### T SH #### [facility] [address] [place] [address] Dr. Allen Smith Hemoglobin (Bld) [Mass/Vol] 9.9 g/dL Critically low 12.0-16.0 [facility] Comment on above: Performed By: #### T SH #### [facility] [address] [place] [address] Dr. Allen Smith IG # 0.05 10e3/ul Critically high 0.00-0.03 [facility] Comment on above: Performed By: #### T SH #### [facility] [address] [place] [address] Dr. Allen Smith IG % 0.4 % Normal 0.0-0.5 [facility] Comment on above: Performed By: #### T SH #### [facility] [address] [place] [address] Dr. Allen Smith LYMPH # 0.3 103/ul Critically low 1.2-3.8 [facility] Comment on above: Performed By: #### T SH #### [facility] [address] [place] [address] Dr. Allen Smith Lymphocytes/100 WBC (Bld) 2.5 % Critically low 20.5-60.0 [facility] Comment on above: Performed By: #### T SH #### [facility] [address] [place] [address] Dr. Allen Smith MANUAL DIFF REQ NO Normal [facility] Comment on above: Performed By: #### T SH #### [facility] [address] [place] [address] Dr. Allen Smith MCH (RBC) [Entitic mass] 24.9 pg Critically low 26.7-34.0 [facility] Comment on above: Performed By: #### T SH #### [facility] [address] [place] [address] Dr. Allen Smith MCHC (RBC) [Mass/Vol] 32.8 g/dL Normal 29.9-35.2 [facility] Comment on above: Performed By: #### T SH #### [facility] [address] [place] [address] Dr. Allen Smith MCV (RBC) [Entitic vol] 76.1 fL Critically low 81.0-99. 0 [facility] Comment on above: Performed By: #### T SH #### [facility] [address] [place] [address] Dr. Allen Smith MONO # 0.5 103/ul Normal 0.3-0.8 [facility] Comment on above: Performed By: #### T SH #### [facility] [address] [place] [address] Dr. Allen Smith Monocytes/100 WBC (Bld) 3.7 % Normal 1.7-12.0 [facility] Comment on above: Performed By: #### T SH #### [facility] [address] [place] [address] Dr. lAlen Smith NEUT # 12.2 103/ul Critically high 1.4-6.5 [facility] Comment on above: Performed By: #### T SH #### [facility] [address] [place] [address] Dr. Allen Smith Neutrophils/100 WBC (Bld) 93.3 % Critically high 43.0-75.0 [facility] Comment on above: Performed By: #### T SH #### [facility] [address] [place] [address] Dr. Allen Smith Platelet mean volume (Bld) [Entitic vol] 10.3 fL Normal 9.5-13.5 [facility] Comment on above: Performed By: #### T SH #### [facility] [address] [place] [address] Dr. Allen Smith PLT 263 103/ul Normal 150-450 [facility] Comment on above: Performed By: #### T SH #### [facility] [address] [place] [address] Dr. Allen Smith RBC 3.97 106/ul Critically low 4.20-5.40 [facility] Comment on above: Performed By: #### T SH #### [facility] [address] [place] [address] Dr. Allen Smith WBC 13.0 103/ul Critically high 4.0-11.0 [facility] Comment on above: Performed By: #### T SH #### [facility] [address] [place] [address] Dr. Allen Smith BASO # 0.0 103/ul Normal 0.0-0.1 [facility] Comment on above: Performed By: #### N A #### [facility] [address] [place] [address] Dr. Allen Smith Basophils/100 WBC (Bld) 0.1 % Critically low 0.2-2.0 [facility] Comment on above: Performed By: #### N A #### [facility] [address] [place] [address] Dr. Allen Smith EO # 0.0 103/ul Normal 0.0-0.7 [facility] Comment on above: Performed By: #### N A #### [facility] [address] [place] [address] Dr. Allen Smith Eosinophils/100 WBC (Bld) 0.0 % Critically low 0.9-7.0 [facility] Comment on above: Performed By: #### N A #### [facility] [address] [place] [address] Dr. Allen Smith Erythrocyte distribution width (RBC) [Ratio] 13.4 % Normal 11.0-15.0 [facility] Comment on above: Performed By: #### N A #### [facility] [address] [place] [address] Dr. Allen Smith Hematocrit (Bld) [Volume fraction] 29.5 % Critically low 36.0-48.0 [facility] Comment on above: Performed By: #### N A #### [facility] [address] [place] [address] Dr. Allen Smith Hemoglobin (Bld) [Mass/Vol] 9.6 g/dL Critically low 12.0-16.0 [facility] Comment on above: Performed By: #### N A #### [facility] [address] [place] [address] Dr. Allen Smith IG # 0.04 10e3/ul Critically high 0.00-0.03 [facility] Comment on above: Performed By: #### N A #### [facility] [address] [place] [address] Dr. Allen Smith IG % 0.4 % Normal 0.0-0.5 [facility] Comment on above: Performed By: #### N A #### [facility] [address] [place] [address] Dr. Allen Smith LYMPH # 0.4 103/ul Critically low 1.2-3.8 [facility] Comment on above: Performed By: #### N A #### [facility] [address] [place] [address] Dr. Allen Smith Lymphocytes/100 WBC (Bld) 3.5 % Critically low 20.5-60.0 [facility] Comment on above: Performed By: #### N A #### [facility] [address] [place] [address] Dr. Allen Smith MANUAL DIFF REQ NO Normal [facility] Comment on above: Performed By: #### N A #### [facility] [address] [place] [address] Dr. Allen Smith MCH (RBC) [Entitic mass] 24.4 pg Critically low 26.7-34.0 [facility] Comment on above: Performed By: #### N A #### [facility] [address] [place] [address] Dr. Allen Smith MCHC (RBC) [Mass/Vol] 32.5 g/dL Normal 29.9-35.2 [facility] Comment on above: Performed By: #### N A #### [facility] [address] [place] [address] Dr. Allen Smith MCV (RBC) [Entitic vol] 74.9 fL Critically low 81.0-99. 0 [facility] Comment on above: Performed By: #### N A #### [facility] [address] [place] [address] Dr. Allen Smith MONO # 0.4 103/ul Normal 0.3-0.8 [facility] Comment on above: Performed By: #### N A #### [facility] [address] [place] [address] Dr. Allen Smith Monocytes/100 WBC (Bld) 3.5 % Normal 1.7-12.0 [facility] Comment on above: Performed By: #### N A #### [facility] [address] [place] [address] Dr. Allen Smith NEUT # 10.2 103/ul Critically high 1.4-6.5 [facility] Comment on above: Performed By: #### N A #### [facility] [address] [place] [address] Dr. Allen Smith Neutrophils/100 WBC (Bld) 92.5 % Critically high 43.0-75.0 [facility] Comment on above: Performed By: #### N A #### [facility] [address] [place] [address] Dr. Allen Smith Platelet mean volume (Bld) [Entitic vol] 10.9 fL Normal 9.5-13.5 [facility] Comment on above: Performed By: #### N A #### [facility] [address] [address] [address] Allen Smith PLT 279 103/ul Normal 150-450 [facility] Comment on above: Performed By: #### N A #### [facility] [address] [address] [address] Allen Smith RBC 3.94 106/ul Critically low 4.20-5.40 [facility] Comment on above: Performed By: #### N A #### [facility] [address] [address] [address] Allen Smith WBC 11.0 103/ul Normal 4.0-11.0 [facility] Comment on above: Performed By: #### N A #### [facility] [address] [place] [address] Dr. Allen Smith ECHOCARDIO M/2D COMPLETEon 0 01-25-2023 ECHOCARDIO M/2D COMPLETE Patient: PERLA IBARRA Exam Date: 01/25/2023 : 1955 Gender:F Ordering : DOMINGA GODWIN . Admission #: [id number] Family : DR FREDDY BARRAZA M.D. Order #: [id number] CLICK HERE TO VIEW EXAM ECHOCARDIOGRAM REPORT [...] Henderson M.D. on 01/25/2023 at 15:39 Normal [facility] NAon 01-25-2023 Sodium [Moles/Vol] 128 mmol/L Critically low 136-145 [facility] Comment on above: Performed By: #### N A #### [facility] [address] [place] [address] Dr. Allen Smith Sodium [Moles/Vol] 122 mmol/L Critically low 136-145 [facility] Comment on above: Performed By: #### T SH #### [facility] [address] [place] [address] Dr. Allen Smith Sodium [Moles/Vol] 122 mmol/L Critically low 136-145 [facility] Comment on above: Performed By: #### N A #### [facility] [address] [place] [address] Dr. Allen Smith PROF 14(COMP METB)on 023 Albumin [Mass/Vol] 2.8 g/dL Critically low 3.4-5.0 [facility] Comment on above: Performed By: #### B MANAGER OFFICE, CMP #### [facility] [address] [place] [address] Dr. Allen Smith Albumin/Globulin [Mass ratio] 0.5 {ratio} Normal [facility] Comment on above: Performed By: #### B MANAGER OFFICE, CMP #### [facility] [address] [place] [address] Dr. Allen Smith ALP [Catalytic activity/Vol] 69 U/L Normal 46-116 [facility] Comment on above: Performed By: #### B MANAGER OFFICE, CMP #### [facility] [address] [place] [address] Dr. Allen Smith ALT [Catalytic activity/Vol] 57 U/L Normal 14-59 [facility] Comment on above: Performed By: #### B MANAGER OFFICE, CMP #### [facility] [address] [place] [address] Dr. Allen Smith Anion gap [Moles/Vol] 16.1 mmol/L Normal Th e [facility] Comment on above: Performed By: #### B MANAGER OFFICE, CMP #### [facility] [address] [place] [address] Dr. Allen Smith AST [Catalytic activity/Vol] 41 U/L Critically high 15-37 [facility] Comment on above: Performed By: #### B MANAGER OFFICE, CMP #### [facility] [address] [place] [address] Dr. Allen Smith Bilirubin [Mass/Vol] 0.2 mg/dL Normal 0.2-1.0 [facility] Comment on above: Performed By: #### B MANAGER OFFICE, CMP #### [facility] [address] [place] [address] Dr. Allen Smith Calcium [Mass/Vol] 8.7 mg/dL Normal 8.5-10.1 [facility] Comment on above: Performed By: #### B MANAGER OFFICE, CMP #### [facility] [address] [place] [address] Dr. Allen Smith Chloride [Moles/Vol] 88 mmol/L Critically low 98-107 [facility] Comment on above: Performed By: #### B MANAGER OFFICE, CMP #### [facility] [address] [place] [address] Dr. Allen Smith CO2 [Moles/Vol] 22.6 mmol/L Normal 21.0-32.0 [facility] Comment on above: Performed By: #### B MANAGER OFFICE, CMP #### [facility] [address] [place] [address] Dr. Allen Smith Creatinine [Mass/Vol] 0.83 mg/dL Normal 0.55-1.02 [facility] Comment on above: Performed By: #### B MANAGER OFFICE, CMP #### [facility] [address] [place] [address] Dr. Allen Smith EGFR-AF SINGAPOREAN >60 Normal >=60 [facility] Comment on above: Performed By: #### B MANAGER OFFICE, CMP #### [facility] [address] [place] [address] Dr. Allen Smith EGFR-NON AF SINGAPOREAN >60 Normal >=60 [facility] Comment on above: Performed By: #### B MANAGER OFFICE, CMP #### [facility] [address] [place] [address] Dr. Allen Smith Globulin (S) [Mass/Vol] 5.2 g/dL Normal [facility] Comment on above: Performed By: #### B MANAGER OFFICE, CMP #### [facility] [address] [place] [address] Dr. Allen Smith Glucose [Mass/Vol] 120 mg/dL Critically high 74-106 [facility] Comment on above: Performed By: #### B MANAGER OFFICE, CMP #### [facility] [address] [place] [address] Dr. Allen Smith Potassium [Moles/Vol] 3.7 mmol/L Normal 3.5-5.1 [facility] Comment on above: Performed By: #### B MANAGER OFFICE, CMP #### [facility] [address] [place] [address] Dr. Allen Smith Protein [Mass/Vol] 8.0 g/dL Normal 6.4-8.2 [facility] Comment on above: Performed By: #### B MANAGER OFFICE, CMP #### [facility] [address] [place] [address] Dr. Allen Smith Sodium [Moles/Vol] 122 mmol/L Critically low 136-145 [facility] Comment on above: Performed By: #### B MANAGER OFFICE, CMP #### [facility] [address] [place] [address] Dr. Allen Smith Urea nitrogen [Mass/Vol] 13.0 mg/dL Normal 7.0-18.0 [facility] Comment on above: Performed By: #### B MANAGER OFFICE, CMP #### [facility] [address] [place] [address] Dr. Allen Smith Urea nitrogen/Creatinine [Mass ratio] 15.7 mg/mg Normal [facility] Comment on above: Performed By: #### B MANAGER OFFICE, CMP #### [facility] [address] [place] [address] Dr. Allen Smith PROF CHEM 8 (BAS METB)on Anion gap [Moles/Vol] 13.3 mmol/L Normal [facility] Comment on above: Performed By: #### B MP #### [facility] [address] [place] [address] Dr. Allen Smith Calcium [Mass/Vol] 7.1 mg/dL Critically low 8.5-10.1 [facility] Comment on above: Performed By: #### B MP #### [facility] [address] [place] [address] Dr. Allen Smith Chloride [Moles/Vol] 97 mmol/L Critically low 98-107 [facility] Comment on above: Performed By: #### B MP #### [facility] [address] [place] [address] Dr. Allen Smith CO2 [Moles/Vol] 21.8 mmol/L Normal 21.0-32.0 [facility] Comment on above: Performed By: #### B MP #### [facility] [address] [place] [address] Dr. Allen Smith Creatinine [Mass/Vol] 0.84 mg/dL Normal 0.55-1.02 [facility] Comment on above: Performed By: #### B MP #### [facility] [address] [place] [address] Dr. Allen Smith EGFR-AF SINGAPOREAN >60 Normal >=60 [facility] Comment on above: Performed By: #### B MP #### [facility] [address] [place] [address] Dr. Allen Smith EGFR-NON AF SINGAPOREAN >60 Normal >=60 [facility] Comment on above: Performed By: #### B MP #### [facility] [address] [place] [address] Dr. Allen Smith Glucose [Mass/Vol] 128 mg/dL Critically high 74-106 [facility] Comment on above: Performed By: #### B MP #### [facility] [address] [place] [address] Dr. Allen Smith Potassium [Moles/Vol] 3.1 mmol/L Critically low 3.5-5.1 [facility] Comment on above: Performed By: #### B MP #### [facility] [address] [place] [address] Dr. Allen Smith Sodium [Moles/Vol] 129 mmol/L Critically low 136-145 [facility] Comment on above: Performed By: #### B MP #### [facility] [address] [place] [address] Dr. Allen Smith Urea nitrogen [Mass/Vol] 17.0 mg/dL Normal 7.0-18.0 [facility] Comment on above: Performed By: #### B MP #### [facility] [address] [place] [address] Dr. Allen Smith Urea nitrogen/Creatinine [Mass ratio] 20.2 mg/mg Normal [facility] Comment on above: Performed By: #### B MP #### [facility] [address] [place] [address] Dr. Allen Smith PROTIMEon 01-25-2023 INR Coag (PPP) [Relative time] 0.98 {INR} Normal [facility] Comment on above: Performed By: #### B MANAGER OFFICE, CMP #### [facility] [address] [place] [address] Dr. Allen Smith INR GUIDELINES SEE BELOW Normal [facility] Comment on above: Result Comment: VU RED INR: 2.0 - 3.0 CONDITIONS NOT LISTED BELOW 2.5 - 3.5 FOR PROSTHETIC HEART VALVE REPLACEMENT 2.5 - 3.5 RECURRENT THROMBOSIS Performed By: #### B MANAGER OFFICE, CMP #### [facility] [address] [place] [address] Dr. Allen Smith PT Coag (PPP) [Time] 10.4 s Normal 9.0-11.6 [facility] Comment on above: Performed By: #### B MANAGER OFFICE, CMP #### [facility] [address] [place] [address] Dr. Allen Smith PTTon 01-25-2023 aPTT Coag (Bld) [Time] 29.8 s Normal 22.3-36.2 [facility] Comment on above: Performed By: #### B MANAGER OFFICE, CMP #### [facility] [address] [address] [address] Allen Smith PTT HEPARIN MONITORon 2022 aPTT Coag (Bld) [Time] 24.5 s Critically low 39.5-54.2 [facility] Comment on above: Performed By: #### T SH #### [facility] [address] [address] [address] Allen Smith TRIGLYCERIDEon 01-25-2023 Triglyceride [Mass/Vol] 55 mg/dL Normal <=150 [facility] Comment on above: Performed By: #### T SH #### [facility] [address] [address] [address] Allen Smith XR CHEST 1 Von 01-25-2023 XR CHEST 1 V EXAM: XR CHEST 1 V HISTORY: SHORTNESS OF BREATH COMPARISON: Chest radiograph 01/25/2023. TECHNIQUE: AP upright portable view of chest FINDINGS: Stable endotracheal tube position. Enteric tube has been advanced with distal tip not included in the [id number] but at least terminates in the mid to low gastric body. Radiolucent sideport is at the gastric antrum. Similar pulmonary vascular congestion. No sizable pleural effusion or pneumothorax. Normal cardiomediastinal sella. No acute osseous or soft tissue abnormalities. IMPRESSION: 1. Enteric tube has been advanced with distal tip not included in the [id number] but at least terminates in the mid to low gastric body. Radiolucent sideport is at the gastric antrum. 2. Stable endotracheal tube position. 3. Pulmonary vascular congestion. Electronically authenticated by: BASHIR ZAYAS Date: 2023-01-25 18:35 Normal [facility] XR CHEST 1 V EXAM: XR [...] by: Ava HERNDON Date: 2023-01-25 17:25 Normal [facility] BLOOD GASES BTYon 01-24-2023 02 MODE NASAL CANNULA Normal [facility] Comment on above: Performed By: #### A BG #### [facility] [address] [place] [address] Dr. Allen Smith ALLENS TEST Positive [facility] Comment on above: Performed By: #### A BG #### [facility] [address] [place] [address] Dr. Allen Smith Base excess Calc (Bld) [Moles/Vol] -4.1000 mmol/L Critically low -2.0-2.0 [facility] Comment on above: Performed By: #### A BG #### [facility] [address] [place] [address] Dr. Allen Smith BIPAP PRESSURE [facility] Comment on above: Performed By: #### A BG #### [facility] [address] [place] [address] Dr. Allen Smith CPAP [facility] Comment on above: Performed By: #### A BG #### [facility] [address] [place] [address] Dr. Allen Smith FIO2 [facility] Comment on above: Performed By: #### A BG #### [facility] [address] [place] [address] Dr. Allen Smith HCO3 (Bld) [Moles/Vol] 21.6 mmol/L Critically low 22.0-26. 0 [facility] Comment on above: Performed By: #### A BG #### [facility] [address] [place] [address] Dr. Allen Smith LPM 3 [facility] Comment on above: Performed By: #### A BG #### [facility] [address] [place] [address] Dr. Allen Smith MINUTE VOLUME [facility] Comment on above: Performed By: #### A BG #### [facility] [address] [address] [address] Allen Smith Oxygen (Bld) [Partial pressure] 112.0 mm[Hg] Critically high 80.0-100.0 [facility] Comment on above: Performed By: #### A BG #### [facility] [address] [place] [address] Dr. Allen Smith Oxygen saturation in Blood 98.5 % Normal 95.0-100.0 [facility] Comment on above: Performed By: #### A BG #### [facility] [address] [place] [address] Dr. Allen Smith PCO2 39.6 mmHg Normal 35.0-45.0 [facility] Comment on above: Performed By: #### A BG #### [facility] [address] [place] [address] Dr. Allen Smith [facility] Comment on above: Performed By: #### A BG #### [facility] [address] [place] [address] Dr. Allen Smith pH (Bld) 7.345 [pH] Critically low 7.350-7.45 0 [facility] Comment on above: Performed By: #### A BG #### [facility] [address] [place] [address] Dr. Allen Smith [facility] Comment on above: Performed By: #### A BG #### [facility] [address] [place] [address] Dr. Allen Smith [facility] Comment on above: Performed By: #### A BG #### [facility] [address] [place] [address] Dr. Allen Smith PUNCTURE SITE LR [facility] Comment on above: Performed By: #### A BG #### [facility] [address] [place] [address] Dr. Allen Smith RATE [facility] Comment on above: Performed By: #### A BG #### [facility] [address] [place] [address] [facility] Comment on above: Performed By: #### A BG #### [facility] [address] [place] [address] Dr. Allen Smith [facility] Comment on above: Performed By: #### A BG #### [facility] [address] [place] [address] Dr. Allen Smith BNPon 3 Natriuretic peptide B (Bld) [Mass/Vol] 05062.0 pg/mL Critically high <=900.0 [facility] Comment on above: Performed By: #### N A #### [facility] [address] [place] [address] Dr. Allen Smith CARDIAC LI 3-6on 3 CK [Catalytic activity/Vol] 319 U/L Critically high 26-192 [facility] Comment on above: Performed By: #### B MANAGER OFFICE, CMP #### [facility] [address] [place] [address] Dr. Allen Smith CK.MB [Mass/Vol] 16.41 ng/mL Critically high <=3.60 Th [facility] Comment on above: Performed By: #### B MANAGER OFFICE, CMP #### [facility] [address] [place] [address] Dr. Allen Smith HSTROP 1248.2 pg/mL Critically high 4.0-51.3 [facility] Comment on above: Result Comment: CUT- OFF POINTS HAVE BEEN ESTABLISHED BASED ON THE FOURTH UNIVERSAL DEFINITIONS OF MYOCARDIAL INFARCTION. THE UPPER REFERENCE LIMIT (URL) OF TROPONIN, DEFINED THE 99TH PERCENTILE OF cTnI DISTRIBUTION IN A REFERENCE POPULATION, HAS BEEN CONFIRMED THE DECISION THRESHOLD FOR IA DIAGNOSIS. Performed By: #### B MANAGER OFFICE, CMP #### [facility] [address] [place] [address] Dr. Allen Smith CARDIAC LI ADMITon 023 CK [Catalytic activity/Vol] 238 U/L Critically high 26-192 [facility] Comment on above: Performed By: #### C MADM #### [facility] [address] [place] [address] Dr. Allen Smith CK.MB [Mass/Vol] 12.74 ng/mL Critically high <=3.60 Th e [facility] Comment on above: Performed By: #### C MADM #### [facility] [address] [place] [address] Dr. Allen Smith HSTROP 1545.9 pg/mL Critically high 4.0-51.3 [facility] Comment on above: Result Comment: CUT- OFF POINTS HAVE BEEN ESTABLISHED BASED ON THE FOURTH UNIVERSAL DEFINITIONS OF MYOCARDIAL INFARCTION. THE UPPER REFERENCE LIMIT (URL) OF TROPONIN, DEFINED THE 99TH PERCENTILE OF cTnI DISTRIBUTION IN A REFERENCE POPULATION, HAS BEEN CONFIRMED THE DECISION THRESHOLD FOR IA DIAGNOSIS. Performed By: #### C MADM #### [facility] [address] [place] [address] Dr. Allen Smith BRYAN 244 ng/mL Critically high 9-82 [facility] Comment on above: Performed By: #### C MADM #### [facility] [address] [place] [address] Dr. Allen Smith CBC AUTO DIFFon 01-24-2023 BASO # 0.0 103/ul Normal 0.0-0.1 [facility] Comment on above: Performed By: #### C BC #### [facility] [address] [place] [address] Dr. Allen Smith Basophils/100 WBC (Bld) 0.2 % Normal 0.2-2.0 [facility] Comment on above: Performed By: #### C BC #### [facility] [address] [place] [address] Dr. Allen Smith EO # 0.0 103/ul Normal 0.0-0.7 [facility] Comment on above: Performed By: #### C BC #### [facility] [address] [place] [address] Dr. Allen Smith Eosinophils/100 WBC (Bld) 0.0 % Critically low 0.9-7.0 [facility] Comment on above: Performed By: #### C BC #### [facility] [address] [place] [address] Dr. Allen Smith Erythrocyte distribution width (RBC) [Ratio] 13.4 % Normal 11.0-15.0 [facility] Comment on above: Performed By: #### C BC #### [facility] [address] [place] [address] Dr. Allen Smith Hematocrit (Bld) [Volume fraction] 33.0 % Critically low 36.0-48.0 [facility] Comment on above: Performed By: #### C BC #### [facility] [address] [place] [address] Dr. Allen Smith Hemoglobin (Bld) [Mass/Vol] 10.6 g/dL Critically low 12.0-16.0 [facility] Comment on above: Performed By: #### C BC #### [facility] [address] [place] [address] Dr. Allen Smith IG # 0.11 10e3/ul Critically high 0.00-0.03 [facility] Comment on above: Performed By: #### C BC #### [facility] [address] [place] [address] Dr. Allen Smith IG % 0.9 % Critically high 0.0-0.5 [facility] Comment on above: Performed By: #### C BC #### [facility] [address] [place] [address] Dr. Allen Smith LYMPH # 0.5 103/ul Critically low 1.2-3.8 [facility] Comment on above: Performed By: #### C BC #### [facility] [address] [place] [address] Dr. Allen Smith Lymphocytes/100 WBC (Bld) 4.2 % Critically low 20.5-60.0 [facility] Comment on above: Performed By: #### C BC #### [facility] [address] [place] [address] Dr. Allen Smith MANUAL DIFF REQ NO Normal [facility] Comment on above: Performed By: #### C BC #### [facility] [address] [place] [address] Dr. Allen Smith MCH (RBC) [Entitic mass] 24.5 pg Critically low 26.7-34.0 [facility] [facility] Comment on above: Performed By: #### C BC #### [facility] [address] [place] [address] Dr. Allen Smith MCHC (RBC) [Mass/Vol] 32.1 g/dL Normal 29.9-35.2 [facility] Comment on above: Performed By: #### C BC #### [facility] [address] [place] [address] Dr. Allen Smith MCV (RBC) [Entitic vol] 76.2 fL Critically low 81.0-99. 0 [facility] Comment on above: Performed By: #### C BC #### [facility] [address] [place] [address] Dr. Allen Smith MONO # 0.7 103/ul Normal 0.3-0.8 [facility] Comment on above: Performed By: #### C BC #### [facility] [address] [place] [address] Dr. Allen Smith Monocytes/100 WBC (Bld) 5.1 % Normal 1.7-12.0 [facility] Comment on above: Performed By: #### C BC #### [facility] [address] [place] [address] Dr. Allen Smith NEUT # 11.3 103/ul Critically high 1.4-6.5 [facility] Comment on above: Performed By: #### C BC #### [facility] [address] [place] [address] Dr. Allen Smith Neutrophils/100 WBC (Bld) 89.6 % Critically high 43.0-75.0 [facility] Comment on above: Performed By: #### C BC #### [facility] [address] [place] [address] Dr. Allen Smith Platelet mean volume (Bld) [Entitic vol] 10.0 fL Normal 9.5-13.5 [facility] Comment on above: Performed By: #### C BC #### [facility] [address] [place] [address] Dr. Allen Smith PLT 316 103/ul Normal 150-450 [facility] Comment on above: Performed By: #### C BC #### [facility] [address] [address] [address] Allen Smith RBC 4.33 106/ul Normal 4.20-5.40 [facility] Comment on above: Performed By: #### C BC #### [facility] [address] [address] [address] Allen Smith WBC 12.6 103/ul Critically high 4.0-11.0 [facility] Comment on above: Performed By: #### C BC #### [facility] [address] [address] NECK ST W [...] BARRAZA Date: 2023-01-24 14:13 Normal [facility] CULTURE BLOODon 01-24-2023 Microscopic examination of blood, culture Culture Observations: NO GROWTH AT 5 DAYS. Normal [facility] Comment on above: Performed By: #### B MANAGER OFFICE, CMP #### [facility] [address] [place] [address] Dr. Allen Smith Microscopic examination of blood, culture Culture Observations: NO GROWTH AT 5 DAYS. Normal [facility] Comment on above: Performed By: #### B MANAGER OFFICE, CMP #### [facility] [address] [place] [address] Dr. Allen Smith GROUP A STREP CULTUREon 01-01 S. pyogenes Ag Ql (Unsp spec) Culture Observations: NEGATIVE FOR GROUP A STREPTOCOCCUS. Normal [facility] Comment on above: Performed By: #### N A #### [facility] [address] [place] [address] Dr. Allen Smith LACTATE/LACTIC ACIDon 2022 Lactate [Moles/Vol] 3.1 mmol/L Critically high 0.4-2.0 [facility] Comment on above: Performed By: #### A BG #### [facility] [address] [place] [address] Dr. Allen Smith Lactate [Moles/Vol] 3.6 mmol/L Critically high 0.4-2.0 [facility] Comment on above: Performed By: #### T SH #### [facility] [address] [place] [address] Dr. Allen Smith NAon 01-24-2023 Sodium [Moles/Vol] 122 mmol/L Critically low 136-145 [facility] Comment on above: Performed By: #### N A #### [facility] [address] [place] [address] Dr. Allen Smith PROF 14(COMP METB)on 023 Albumin [Mass/Vol] 3.0 g/dL Critically low 3.4-5.0 [facility] Comment on above: Performed By: #### N A #### [facility] [address] [place] [address] Dr. Allen Smith Albumin/Globulin [Mass ratio] 0.5 {ratio} Normal [facility] Comment on above: Performed By: #### N A #### [facility] [address] [place] [address] Dr. Allen Smith ALP [Catalytic activity/Vol] 88 U/L Normal 46-116 [facility] Comment on above: Performed By: #### N A #### [facility] [address] [place] [address] Dr. Allen Smith ALT [Catalytic activity/Vol] 65 U/L Critically high 14-59 [facility] Comment on above: Performed By: #### N A #### [facility] [address] [place] [address] Dr. Allen Smith Anion gap [Moles/Vol] 17.8 mmol/L Normal [facility] Comment on above: Performed By: #### N A #### [facility] [address] [place] [address] Dr. Allen Smith AST [Catalytic activity/Vol] 28 U/L Normal 15-37 [facility] Comment on above: Performed By: #### N A #### [facility] [address] [place] [address] Dr. Allen Smith Bilirubin [Mass/Vol] 0.3 mg/dL Normal 0.2-1.0 [facility] Comment on above: Performed By: #### N A #### [facility] [address] [place] [address] Dr. Allen Smith Calcium [Mass/Vol] 9.5 mg/dL Normal 8.5-10.1 [facility] Comment on above: Performed By: #### N A #### [facility] [address] [place] [address] Dr. Allen Smith Chloride [Moles/Vol] 87 mmol/L Critically low 98-107 [facility] Comment on above: Performed By: #### N A #### [facility] [address] [place] [address] Dr. Allen Smith CO2 [Moles/Vol] 22.5 mmol/L Normal 21.0-32.0 [facility] Comment on above: Performed By: #### N A #### [facility] [address] [place] [address] Dr. Allen Smith Creatinine [Mass/Vol] 1.07 mg/dL Critically high 0.55-1.02 [facility] Comment on above: Performed By: #### N A #### [facility] [address] [place] [address] Dr. Allen Smith EGFR-AF SINGAPOREAN >60 Normal >=60 [facility] Comment on above: Performed By: #### N A #### [facility] [address] [address] [address] Allen Smith EGFR-NON AF S[place]APOREAN 51 mL/min/1.73m2 Critically low >=60 [facility] Comment on above: Performed By: #### N A #### [facility] [address] [place] [address] Dr. Allen Smith Globulin (S) [Mass/Vol] 6.2 g/dL Normal [facility] Comment on above: Performed By: #### N A #### [facility] [address] [place] [address] Dr. Allen Smith Glucose [Mass/Vol] 182 mg/dL Critically high 74-106 [facility] Comment on above: Performed By: #### N A #### [facility] [address] [place] [address] Dr. Allen Smith Potassium [Moles/Vol] 4.3 mmol/L Normal 3.5-5.1 [facility] Comment on above: Performed By: #### N A #### [facility] [address] [place] [address] Dr. Allen Smith Protein [Mass/Vol] 9.2 g/dL Critically high 6.4-8.2 [facility] Comment on above: Performed By: #### N A #### [facility] [address] [place] [address] Dr. Allen Smith Sodium [Moles/Vol] 123 mmol/L Critically low 136-145 [facility] Comment on above: Performed By: #### N A #### [facility] [address] [place] [address] Dr. Allen Smith Urea nitrogen [Mass/Vol] 12.0 mg/dL Normal 7.0-18.0 [facility] Comment on above: Performed By: #### N A #### [facility] [address] [place] [address] Dr. Allen Smith Urea nitrogen/Creatinine [Mass ratio] 11.2 mg/mg Normal [facility] Comment on above: Performed By: #### N A #### [facility] [address] [place] [address] Dr. Allen Smith PROTIMEon 01-24-2023 INR Coag (PPP) [Relative time] 0.98 {INR} Normal [facility] Comment on above: Performed By: #### T SH #### [facility] [address] [place] [address] Dr. Allen Smith INR GUIDELINES SEE BELOW Normal [facility] Comment on above: Result Comment: VU RED INR: 2.0 - 3.0 CONDITIONS NOT LISTED BELOW 2.5 - 3.5 FOR PROSTHETIC HEART VALVE REPLACEMENT 2.5 - 3.5 RECURRENT THROMBOSIS Performed By: #### T SH #### [facility] [address] [place] [address] Dr. Allen Smith PT Coag (PPP) [Time] 10.4 s Normal 9.0-11.6 [facility] Comment on above: Performed By: #### T SH #### [facility] [address] [place] [address] Dr. Allen Smith PTTon 01-24-2023 aPTT Coag (Bld) [Time] 29.5 s Normal 22.3-36.2 [facility] Comment on above: Performed By: #### T SH #### [facility] [address] [place] [address] Dr. Allen Smith RESPIRATORY PANEL PLUSon Adenovirus Not detected Normal NOT DETECTED [facility] Comment on above: Performed By: #### N A #### [facility] [address] [place] [address] Dr. Allen Smith B. Parapertusis Not detected Normal NOT DETECTED [facility] Comment on above: Performed By: #### N A #### [facility] [address] [place] [address] Dr. Allen Thayer Pertussis Not detected Normal NOT DETECTED [facility] Comment on above: Performed By: #### N A #### [facility] [address] [place] [address] Dr. Allen Smith Chlamydia Pneumoniae Not detected Normal NOT DETECTED [facility] Comment on above: Performed By: #### N A #### [facility] [address] [place] [address] Dr. Allen Smith Coronavirus 229E Not detected Normal NOT DETECTED [facility] Comment on above: Performed By: #### N A #### [facility] [address] [place] [address] Dr. Allen Smith Coronavirus HKU1 Not detected Normal NOT DETECTED [facility] Comment on above: Performed By: #### N A #### [facility] [address] [place] [address] Dr. Allen Smith Coronavirus NL63 Not detected Normal NOT DETECTED [facility] Comment on above: Performed By: #### N A #### [facility] [address] [place] [address] Dr. Allen Smith Coronavirus OC43 Not detected Normal NOT DETECTED [facility] Comment on above: Performed By: #### N A #### [facility] [address] [place] [address] Dr. Allen Smith Influenza A H1 Not detected Normal NOT DETECTED [facility] Comment on above: Performed By: #### N A #### [facility] [address] [place] [address] Dr. Allen Smith Influenza A H1 2009 Not detected Normal NOT DETECTED [facility] Comment on above: Performed By: #### N A #### [facility] [address] [place] [address] Dr. Allen Smith Influenza A H3 Not detected Normal NOT DETECTED [facility] Comment on above: Performed By: #### N A #### [facility] [address] [place] [address] Dr. Allen Smith Influenza B Not detected Normal NOT DETECTED [facility] Comment on above: Performed By: #### N A #### [facility] [address] [place] [address] Dr. Allen Smith Metapneumovirus Not detected Normal NOT DETECTED [facility] Comment on above: Performed By: #### N A #### [facility] [address] [place] [address] Dr. Allen Smith Mycoplas. Pneumoniae Not detected Normal NOT DETECTED [facility] Comment on above: Performed By: #### N A #### [facility] [address] [place] [address] Dr. Allen Smith Parainfluenza 1 Not detected Normal NOT DETECTED [facility] Comment on above: Performed By: #### N A #### [facility] [address] [place] [address] Dr. Allen Smith Parainfluenza 2 Not detected Normal NOT DETECTED [facility] Comment on above: Performed By: #### N A #### [facility] [address] [place] [address] Dr. Allen Smith Parainfluenza 3 Detected Abnormal NOT DETECTED [facility] Comment on above: Performed By: #### N A #### [facility] [address] [place] [address] Dr. Allen Smith Parainfluenza 4 Not detected Normal NOT DETECTED [facility] Comment on above: Performed By: #### N A #### [facility] [address] [place] [address] Dr. Allen Smith Rhino/Enterovirus Not detected Normal NOT DETECTED [facility] Comment on above: Performed By: #### N A #### [facility] [address] [place] [address] Dr. Allen Smith RP2 Header 1 RESPIRATORY PANEL: VIRUSES Normal [facility] Comment on above: Performed By: #### N A #### [facility] [address] [place] [address] Dr. Allen Smith RP2 Header 2 RESPIRATORY PANEL: BACTERIA Normal [facility] Comment on above: Performed By: #### N A #### [facility] [address] [place] [address] Dr. Allen Smith RSV Not detected Normal NOT DETECTED [facility] Comment on above: Performed By: #### N A #### [facility] [address] [address] [address] Allen Smith SARS-CoV-2 (COVID-19) RNA BJORN+probe Ql (Unsp spec) Not detected Normal NOT DETECTED [facility] Comment on above: Performed By: #### N A #### [facility] [address] [address] [address] Allen Smith STREPT SCREENon 01-24-2023 STREP SCREEN A Negative Normal NEGATIVE [facility] Comment on above: Performed By: #### N A #### [facility] [address] [place] [address] Dr. Allen Smith TSHon 01-24-2023 TSH 0.471 uIU/mL Normal 0.358-3.74 0 [facility] Comment on above: Performed By: #### T SH #### [facility] [address] [place] [address] Dr. Allen Smith XR CHEST 1 Von [...] JAVED Date: 2023-01-24 12:53 Normal [facility] Vital Signs Date Time Vital Sign Value Performing Clinician Facility 01-27-2025 13:39-0400 Body temperature 97.6 [degF] Rogers JIANG Work Phone: [facility] 01-27-2025 13:39-0400 Body weight 98.42 kg Rogers JIANG Work Phone: [facility] 01-27-2025 13:39-0400 Diastolic blood pressure 79 mm[Hg] Rogers JIANG Work Phone: [facility] 01-27-2025 13:39-0400 Heart rate 82 /min Rogers JIANG Work Phone: [facility] 01-27-2025 13:39-0400 Inhaled oxygen flow rate 2 L/min Rogers JIANG Work Phone: [facility] 01-27-2025 13:39-0400 Respiratory rate 18 /min Rogers JIANG Work Phone: [facility] 01-27-2025 13:39-0400 SaO2% (BldA) [Mass fraction] 98 % Rogers JIANG Work Phone: [facility] 01-27-2025 13:39-0400 Systolic blood pressure 129 mm[Hg] Rogers AGUIRREP Work Phone: [facility] 12-16-2024 11:35-0400 Body height 157.5 cm Toromalou Baron APRN-INSECTICIDE MIXER Work Phone: [facility] 12-16-2024 11:35-0400 Body mass index (BMI) [Ratio] 38.63 kg/m2 Toro Baron GREEN BELT-INSECTICIDE MIXER Work Phone: [facility] 12-16-2024 11:35-0400 Body temperature 98.2 [degF] Toro Baron GREEN BELT-INSECTIC[employer] MIXER [facility] 12-16-2024 11:35-0400 Body weight 95.8 kg Toro Baron GREEN BELT-INSECTICIDE MIXER Work Phone: [facility] 12-16-2024 11:35-0400 Diastolic blood pressure 60 mm[Hg] Toro Baron GREEN BELT-INSECTICIDE MIXER Work Phone: [facility] 12-16-2024 11:35-0400 Heart rate 90 /min Toro Baron GREEN BELT-INSECTICIDE MIXER Work Phone: [facility] 12-16-2024 11:35-0400 Respiratory rate 18 /min Toro Baron GREEN BELT-INSECTICIDE MIXER Work Phone: [facility] 12-16-2024 11:35-0400 SaO2% (BldA) [Mass fraction] 96 % Toro Baron APRN-INSECTICIDE MIXER Work Phone: [facility] 12-16-2024 11:35-0400 Systolic blood pressure 110 mm[Hg] Toro Baron GREEN BELT-INSECTICIDE MIXER Work Phone: [facility] 11-25-2024 14:49-0500 Body weight 95.7 kg Rogers Kim MANAGEMENT TECH Work Phone: [facility] 11-25-2024 14:49-0500 Diastolic blood pressure 76 mm[Hg] Rogers Kim MANAGEMENT TECH Work Phone: [facility] 11-25-2024 14:49-0500 Heart rate 87 /min Rogers Kim MANAGEMENT TECH Work Phone: [facility] 11-25-2024 14:49-0500 Inhaled oxygen flow rate 2 L/min Rogers Kim MANAGEMENT TECH Work Phone: [facility] 11-25-2024 14:49-0500 Respiratory rate 20 /min Rogers AGUIRREP Work Phone: [facility] 11-25-2024 14:49-0500 SaO2% (BldA) [Mass fraction] 99 % Rogers Kim MANAGEMENT TECH Work Phone: [facility] 11-25-2024 14:49-0500 Systolic blood pressure 136 mm[Hg] Rogers Kim MANAGEMENT TECH Work Phone: [facility] 10-28-2024 13:25-0500 Body height 167.64 cm Rogers Kim MANAGEMENT TECH Work Phone: [facility] 10-28-2024 13:25-0500 Body mass index (BMI) [Ratio] 33.4 kg/m2 Rogers Kim MANAGEMENT TECH Work Phone: [facility] 10-28-2024 13:25-0500 Body temperature 97.1 [degF] Rogers Kim MANAGEMENT TECH Work Phone: [facility] 10-28-2024 13:25-0500 Body weight 93.89 kg Rogers Kim MANAGEMENT TECH Work Phone: [facility] 10-28-2024 13:25-0500 Diastolic blood pressure 80 mm[Hg] Rogers Kim MANAGEMENT TECH Work Phone: [facility] 10-28-2024 13:25-0500 Heart rate 60 /min Rogers Kim MANAGEMENT TECH Work Phone: [facility] 10-28-2024 13:25-0500 Inhaled oxygen flow rate 2 L/min Rogers Kim MANAGEMENT TECH Work Phone: [facility] 10-28-2024 13:25-0500 Respiratory rate 18 /min Rogers Kim MANAGEMENT TECH Work Phone: [facility] 10-28-2024 13:25-0500 SaO2% (BldA) [Mass fraction] 100 % Rogers Kim MANAGEMENT TECH Work Phone: [facility] 10-28-2024 13:25-0500 Systolic blood pressure 144 mm[Hg] Rogers Kim MANAGEMENT TECH Work Phone: [facility] 10-01-2024 09:29-0500 Body temperature 97.5 [degF] Rogers Kim MANAGEMENT TECH Work Phone: [facility] 10-01-2024 09:29-0500 Body weight 92.98 kg Rogers Kim MANAGEMENT TECH Work Phone: [facility] 10-01-2024 09:29-0500 Diastolic blood pressure 84 mm[Hg] Rogers Kim MANAGEMENT TECH Work Phone: [facility] 10-01-2024 09:29-0500 Heart rate 80 /min Rogers Kim MANAGEMENT TECH Work Phone: [facility] 10-01-2024 09:29-0500 Respiratory rate 16 /min Rogers Kim MANAGEMENT TECH Work Phone: [facility] 10-01-2024 09:29-0500 SaO2% (BldA) [Mass fraction] 99 % Rogers Kim MANAGEMENT TECH Work Phone: [facility] 10-01-2024 09:29-0500 Systolic blood pressure 124 mm[Hg] Rogers Sanchezs MANAGEMENT TECH Work Phone: [facility] 09-16-2024 13:00-0500 Body temperature 97.1 [degF] Rogers Sanchezs MANAGEMENT TECH Work Phone: [facility] 09-16-2024 13:00-0500 Diastolic blood pressure 71 mm[Hg] Rogers Sanchezs MANAGEMENT TECH Work Phone: [facility] 09-16-2024 13:00-0500 Heart rate 71 /min Rogers Sanchezs MANAGEMENT TECH Work Phone: [facility] 09-16-2024 13:00-0500 Inhaled oxygen flow rate 2 L/min Rogers Kim MANAGEMENT TECH Work Phone: [facility] 09-16-2024 13:00-0500 Respiratory rate 22 /min Rogers Kim MANAGEMENT TECH Work Phone: [facility] 09-16-2024 13:00-0500 SaO2% (BldA) [Mass fraction] 100 % Rogers Sanchezs MANAGEMENT TECH Work Phone: [facility] 09-16-2024 13:00-0500 Systolic blood pressure 128 mm[Hg] Rogers Kim MANAGEMENT TECH Work Phone: [facility] 06-24-2024 12:56-0400 Body height 165.1 cm MANAGEMENT TECH Rogers Sanchezs Work Phone: [facility] 06-24-2024 12:56-0400 Body mass index (BMI) [Ratio] 31.1 kg/m2 MANAGEMENT TECH Rogers Kim Work Phone: [facility] 06-24-2024 12:56-0400 Body temperature 97.9 [degF] MANAGEMENT TECH Rogers Kim Work Phone: [facility] 06-24-2024 12:56-0400 Body weight 84.82 kg MANAGEMENT TECH Rogers Kim Work Phone: [facility] 06-24-2024 12:56-0400 Diastolic blood pressure 80 mm[Hg] MANAGEMENT TECH Rogers Kim Work Phone: [facility] 06-24-2024 12:56-0400 Heart rate 61 /min MANAGEMENT TECH Rogers Kim Work Phone: [facility] 06-24-2024 12:56-0400 Inhaled oxygen flow rate 2 L/min MANAGEMENT TECH Rogers Kim Work Phone: [facility] 06-24-2024 12:56-0400 Respiratory rate 18 /min MANAGEMENT TECH Rogers Kim Work Phone: [facility] 06-24-2024 12:56-0400 SaO2% (BldA) [Mass fraction] 97 % MANAGEMENT TECH Rogers Kim Work Phone: [facility] 06-24-2024 12:56-0400 Systolic blood pressure 164 mm[Hg] MANAGEMENT TECH Rogers Kim Work Phone: [facility] 06-04-2024 15:51-0400 Body height 165.1 cm MANAGEMENT TECH Rogers Kim Work Phone: [facility] 06-04-2024 15:51-0400 Body mass index (BMI) [Ratio] 30.2 kg/m2 MANAGEMENT TECH Rogers Kim Work Phone: [facility] 06-04-2024 15:51-0400 Body temperature 97.6 [degF] MANAGEMENT TECH Rogers Kim Work Phone: [facility] 06-04-2024 15:51-0400 Body weight 82.58 kg MANAGEMENT TECH Rogers Kim Work Phone: [facility] 06-04-2024 15:51-0400 Diastolic blood pressure 61 mm[Hg] MANAGEMENT TECH Rogers Kim Work Phone: [facility] 06-04-2024 15:51-0400 Heart rate 62 /min MANAGEMENT TECH Rogers Kim Work Phone: [facility] 06-04-2024 15:51-0400 Respiratory rate 18 /min MANAGEMENT TECH Rogers Kim Work Phone: [facility] 06-04-2024 15:51-0400 SaO2% (BldA) [Mass fraction] 92 % MANAGEMENT TECH Rogers Kim Work Phone: [facility] [facility] 06-04-2024 15:51-0400 Systolic blood pressure 108 mm[Hg] MANAGEMENT TECH Rogers Kim Work Phone: [facility] 05-10-2024 11:45-0400 Inhaled oxygen flow rate 2 L/min MANAGEMENT TECH Rogers Kim Work Phone: [facility] 05-10-2024 09:49-0400 Body temperature 98 [degF] MANAGEMENT TECH Rogers Kim Work Phone: [facility] 05-10-2024 09:49-0400 Body weight 80.73 kg MANAGEMENT TECH Rogers Kim Work Phone: [facility] 05-10-2024 09:49-0400 Diastolic blood pressure 71 mm[Hg] MANAGEMENT TECH Rogers Kim Work Phone: [facility] 05-10-2024 09:49-0400 Heart rate 65 /min MANAGEMENT TECH Rogers Sanchezs Work Phone: [facility] 05-10-2024 09:49-0400 Respiratory rate 18 /min MANAGEMENT TECH Rogers Kim Work Phone: [facility] 05-10-2024 09:49-0400 SaO2% (BldA) [Mass fraction] 99 % MANAGEMENT TECH Rogers Kim Work Phone: [facility] 05-10-2024 09:49-0400 Systolic blood pressure 127 mm[Hg] MANAGEMENT TECH Rogers Kim Work Phone: [facility] 03-29-2024 10:55-0400 Inhaled oxygen flow rate 2 L/min MANAGEMENT TECH Rogers Kim Work Phone: [facility] 03-29-2024 09:50-0400 Body temperature 98.1 [degF] MANAGEMENT TECH Rogers Kim Work Phone: [facility] 03-29-2024 09:50-0400 Body weight 76.65 kg MANAGEMENT TECH Rogers Kim Work Phone: [facility] 03-29-2024 09:50-0400 Diastolic blood pressure 75 mm[Hg] MANAGEMENT TECH Rogers Kim Work Phone: [facility] 03-29-2024 09:50-0400 Heart rate 65 /min MANAGEMENT TECH Rogers Kim Work Phone: [facility] 03-29-2024 09:50-0400 Inhaled oxygen flow rate 2 L/min MANAGEMENT TECH Rogers Kim Work Phone: [facility] 03-29-2024 09:50-0400 Respiratory rate 20 /min MANAGEMENT TECH Rogers Kim Work Phone: [facility] 03-29-2024 09:50-0400 SaO2% (BldA) [Mass fraction] 100 % MANAGEMENT TECH Rogers Kim Work Phone: [facility] 03-29-2024 09:50-0400 Systolic blood pressure 137 mm[Hg] MANAGEMENT TECH Rogers Kim Work Phone: [facility] 01-30-2024 08:54-0400 Body height 157.5 cm Rogers Kim APRN-MANAGEMENT TECH Work Phone: [facility] 01-30-2024 08:54-0400 Body mass index (BMI) [Ratio] 28.68 kg/m2 Rogers Kim APRN-MANAGEMENT TECH Work Phone: [facility] 01-30-2024 08:54-0400 Body temperature 97.9 [degF] Rogers Kim APRN-MANAGEMENT TECH Work Phone: [facility] 01-30-2024 08:54-0400 Body weight 71.12 kg Rogers Kim APRN-MANAGEMENT TECH Work Phone: [facility] 01-30-2024 08:54-0400 Diastolic blood pressure 60 mm[Hg] Rogers Kim APRN-MANAGEMENT TECH Work Phone: [facility] 01-30-2024 08:54-0400 Heart rate 63 /min Rogers Kim APRN-MANAGEMENT TECH Work Phone: [facility] 01-30-2024 08:54-0400 Respiratory rate 24 /min Rogers Kim APRN-MANAGEMENT TECH Work Phone: [facility] 01-30-2024 08:54-0400 SaO2% (BldA) [Mass fraction] 99 % Rogers Kim APRN-MANAGEMENT TECH Work Phone: [facility] 01-30-2024 08:54-0400 Systolic blood pressure 112 mm[Hg] Rogers Kim APRN-MANAGEMENT TECH Work Phone: [facility] 01-18-2024 13:00-0400 Body temperature 97.6 [degF] MANAGEMENT TECH Rogers Kim Work Phone: [facility] 01-18-2024 13:00-0400 Diastolic blood pressure 65 mm[Hg] MANAGEMENT TECH Rogers Kim Work Phone: [facility] 01-18-2024 13:00-0400 Heart rate 62 /min MANAGEMENT TECH Rogers Kim Work Phone: [facility] 01-18-2024 13:00-0400 Respiratory rate 18 /min MANAGEMENT TECH Rogers Kim Work Phone: [facility] 01-18-2024 13:00-0400 SaO2% (BldA) [Mass fraction] 100 % MANAGEMENT TECH Rogers Kim Work Phone: [facility] 01-18-2024 13:00-0400 Systolic blood pressure 122 mm[Hg] MANAGEMENT TECH Rogers Kim Work Phone: [facility] 12-29-2023 09:56-0400 Inhaled oxygen flow rate 2 L/min MANAGEMENT TECH Rogers Kim Work Phone: [facility] 12-29-2023 08:52-0400 Body temperature 98.2 [degF] MANAGEMENT TECH Rogers Kim Work Phone: [facility] 12-29-2023 08:52-0400 Body weight 68.49 kg MANAGEMENT TECH Rogers Kim Work Phone: [facility] 12-29-2023 08:52-0400 Diastolic blood pressure 68 mm[Hg] MANAGEMENT TECH Rogers Kim Work Phone: [facility] 12-29-2023 08:52-0400 Heart rate 87 /min MANAGEMENT TECH Rogers Kim Work Phone: [facility] 12-29-2023 08:52-0400 Inhaled oxygen flow rate 2 L/min MANAGEMENT TECH Rogers Kim Work Phone: [facility] 12-29-2023 08:52-0400 Respiratory rate 18 /min MANAGEMENT TECH Rogers Kim Work Phone: [facility] 12-29-2023 08:52-0400 SaO2% (BldA) [Mass fraction] 99 % MANAGEMENT TECH Rogers Kim Work Phone: [facility] 12-29-2023 08:52-0400 Systolic blood pressure 124 mm[Hg] MANAGEMENT TECH Rogers Kim Work Phone: [facility] 12-26-2023 14:57-0400 Body height 157.5 cm Rogers Kim APRN-MANAGEMENT TECH Work Phone: [facility] 12-26-2023 14:57-0400 Body mass index (BMI) [Ratio] 27.44 kg/m2 Rogers Kim APRN-MANAGEMENT TECH Work Phone: [facility] 12-26-2023 14:57-0400 Body temperature 97.39 [degF] Rogers Kim APRN-MANAGEMENT TECH Work Phone: [facility] 12-26-2023 14:57-0400 Body weight 68.04 kg Rogers Kim APRN-MANAGEMENT TECH Work Phone: [facility] 12-26-2023 14:57-0400 Diastolic blood pressure 56 mm[Hg] Rogers Kim APRN-MANAGEMENT TECH Work Phone: [facility] 12-26-2023 14:57-0400 Heart rate 73 /min Rogers Kim APRNLuMANAGEMENT TECH Work Phone: [facility] 12-26-2023 14:57-0400 Respiratory rate 20 /min Rogers Kim APRN-MANAGEMENT TECH Work Phone: [facility] 12-26-2023 14:57-0400 SaO2% (BldA) [Mass fraction] 99 % Rogers Kim APRN-MANAGEMENT TECH Work Phone: [facility] 12-26-2023 14:57-0400 Systolic blood pressure 100 mm[Hg] Rogers Kim APRN-MANAGEMENT TECH Work Phone: [facility] 12-07-2023 13:18-0500 Body temperature 98 [degF] MANAGEMENT TECH Rogers Kim Work Phone: [facility] 12-07-2023 13:18-0500 Diastolic blood pressure 56 mm[Hg] MANAGEMENT TECH Rogers Kim Work Phone: [facility] 12-07-2023 13:18-0500 Heart rate 59 /min MANAGEMENT TECH Rogers Kim Work Phone: [facility] 12-07-2023 13:18-0500 Respiratory rate 20 /min MANAGEMENT TECH Rogers Kim Work Phone: [facility] 12-07-2023 13:18-0500 SaO2% (BldA) [Mass fraction] 99 % MANAGEMENT TECH Rogers Kim Work Phone: [facility] 12-07-2023 13:18-0500 Systolic blood pressure 115 mm[Hg] MANAGEMENT TECH Rogers Kim Work Phone: [facility] 11-17-2023 10:30-0500 Body weight 62.59 kg MANAGEMENT TECH Rogers Kim Work Phone: [facility] 11-17-2023 09:44-0500 Body temperature 98 [degF] MANAGEMENT TECH Rogers Kim Work Phone: [facility] 11-17-2023 09:44-0500 Diastolic blood pressure 66 mm[Hg] MANAGEMENT TECH Rogers Kim Work Phone: [facility] 11-17-2023 09:44-0500 Heart rate 72 /min MANAGEMENT TECH Rogers Kim Work Phone: [facility] 11-17-2023 09:44-0500 Inhaled oxygen flow rate 2 L/min MANAGEMENT TECH Rogers Kim Work Phone: [facility] 11-17-2023 09:44-0500 Respiratory rate 20 /min MANAGEMENT TECH Rogers Kim Work Phone: [facility] 11-17-2023 09:44-0500 SaO2% (BldA) [Mass fraction] 100 % MANAGEMENT TECH Rogers Kim Work Phone: [facility] 11-17-2023 09:44-0500 Systolic blood pressure 142 mm[Hg] MANAGEMENT TECH Rogers Kim Work Phone: [facility] 10-26-2023 14:23-0500 Inhaled oxygen flow rate 2 L/min MANAGEMENT TECH Rogers Kim Work Phone: [facility] 10-26-2023 13:13-0500 Body temperature 98.1 [degF] MANAGEMENT TECH Rogers Kim Work Phone: [facility] 10-26-2023 13:13-0500 Body weight 69.85 kg MANAGEMENT TECH Rogers Kim Work Phone: [facility] 10-26-2023 13:13-0500 Diastolic blood pressure 66 mm[Hg] MANAGEMENT TECH Rogers Kim Work Phone: [facility] 10-26-2023 13:13-0500 Heart rate 77 /min MANAGEMENT TECH Rogers Kim Work Phone: [facility] 10-26-2023 13:13-0500 Inhaled oxygen flow rate 2 L/min MANAGEMENT TECH Rogers Kim Work Phone: [facility] 10-26-2023 13:13-0500 Respiratory rate 20 /min MANAGEMENT TECH Rogers Kim Work Phone: [facility] 10-26-2023 13:13-0500 SaO2% (BldA) [Mass fraction] 97 % MANAGEMENT TECH Rogers Kim Work Phone: [facility] 10-26-2023 13:13-0500 Systolic blood pressure 119 mm[Hg] MANAGEMENT TECH Rogers Kim Work Phone: [facility] 10-24-2023 09:40-0500 Body temperature 97.9 [degF] MANAGEMENT TECH Rogers Kim Work Phone: [facility] 10-24-2023 09:40-0500 Diastolic blood pressure 84 mm[Hg] MANAGEMENT TECH Rogers Kim Work Phone: [facility] 10-24-2023 09:40-0500 Heart rate 103 /min MANAGEMENT TECH Rogers Kim Work Phone: [facility] 10-24-2023 09:40-0500 Inhaled oxygen flow rate 2 L/min MANAGEMENT TECH Rogers Kim Work Phone: [facility] 10-24-2023 09:40-0500 Respiratory rate 20 /min MANAGEMENT TECH Rogers Kim Work Phone: [facility] 10-24-2023 09:40-0500 SaO2% (BldA) [Mass fraction] 100 % MANAGEMENT TECH Rogers Kim Work Phone: [facility] 10-24-2023 09:40-0500 Systolic blood pressure 134 mm[Hg] MANAGEMENT TECH Rogers Kim Work Phone: [facility] 10-24-2023 06:00-0500 Body weight 70.9 kg MANAGEMENT TECH Rogers Kim Work Phone: [facility] 10-20-2023 16:43-0500 Body height 165.1 cm MANAGEMENT TECH Rogers Kim Work Phone: [facility] 10-05-2023 10:36-0500 Body temperature 97.9 [degF] MANAGEMENT TECH Rogers Kim Work Phone: [facility] 10-05-2023 10:36-0500 Body weight 63.59 kg MANAGEMENT TECH Rogers Kim Work Phone: [facility] 10-05-2023 10:36-0500 Diastolic blood pressure 53 mm[Hg] MANAGEMENT TECH Rogers Kim Work Phone: [facility] 10-05-2023 10:36-0500 Heart rate 66 /min MANAGEMENT TECH Rogers Kim Work Phone: [facility] 10-05-2023 10:36-0500 Inhaled oxygen flow rate 2 L/min MANAGEMENT TECH Rogers Kim Work Phone: [facility] 10-05-2023 10:36-0500 Respiratory rate 20 /min MANAGEMENT TECH Rogers Kim Work Phone: [facility] 10-05-2023 10:36-0500 SaO2% (BldA) [Mass fraction] 100 % MANAGEMENT TECH Rogers Kim Work Phone: [facility] 10-05-2023 10:36-0500 Systolic blood pressure 111 mm[Hg] MANAGEMENT TECH Rogers Kim Work Phone: [facility] 09-12-2023 12:52-0500 Body temperature 97.3 [degF] MANAGEMENT TECH Rogers Kim Work Phone: [facility] 09-12-2023 12:52-0500 Body weight 65.31 kg MANAGEMENT TECH Rogers Kim Work Phone: [facility] 09-12-2023 12:52-0500 Diastolic blood pressure 68 mm[Hg] MANAGEMENT TECH Rogers Kim Work Phone: [facility] 09-12-2023 12:52-0500 Heart rate 83 /min MANAGEMENT TECH Rogers Kim Work Phone: [facility] 09-12-2023 12:52-0500 Respiratory rate 16 /min MANAGEMENT TECH Rogers Kim Work Phone: [facility] 09-12-2023 12:52-0500 SaO2% (BldA) [Mass fraction] 100 % MANAGEMENT TECH Rogers iKm Work Phone: [facility] 09-12-2023 12:52-0500 Systolic blood pressure 138 mm[Hg] MANAGEMENT TECH Rogers Kim Work Phone: [facility] 08-28-2023 13:02-0500 Body temperature 98.3 [degF] MANAGEMENT TECH Rogers Kim Work Phone: [facility] 08-28-2023 13:02-0500 Body weight 66.31 kg MANAGEMENT TECH Rogers Sanchezs Work Phone: [facility] 08-28-2023 13:02-0500 Diastolic blood pressure 69 mm[Hg] MANAGEMENT TECH Rogers Sanchezs Work Phone: [facility] 08-28-2023 13:02-0500 Heart rate 90 /min MANAGEMENT TECH Rogers Kim Work Phone: [facility] 08-28-2023 13:02-0500 Inhaled oxygen flow rate 2 L/min MANAGEMENT TECH Rogers Kim Work Phone: [facility] 08-28-2023 13:02-0500 Respiratory rate 20 /min MANAGEMENT TECH Rogers Kim Work Phone: [facility] 08-28-2023 13:02-0500 SaO2% (BldA) [Mass fraction] 100 % MANAGEMENT TECH Rogers Kim Work Phone: [facility] 08-28-2023 13:02-0500 Systolic blood pressure 134 mm[Hg] MANAGEMENT TECH Rogers Kim Work Phone: [facility] 08-22-2023 14:30-0500 Diastolic blood pressure 61 mm[Hg] MANAGEMENT TECH Rogers Kim Work Phone: [facility] 08-22-2023 14:30-0500 Heart rate 80 /min MANAGEMENT TECH Rogers Kim Work Phone: [facility] 08-22-2023 14:30-0500 Inhaled oxygen flow rate 2 L/min MANAGEMENT TECH Rogers Kim Work Phone: [facility] 08-22-2023 14:30-0500 Respiratory rate 20 /min MANAGEMENT TECH Rogers Kim Work Phone: [facility] 08-22-2023 14:30-0500 SaO2% (BldA) [Mass fraction] 100 % MANAGEMENT TECH Rogers Kim Work Phone: [facility] 08-22-2023 14:30-0500 Systolic blood pressure 103 mm[Hg] MANAGEMENT TECH Rogers Sanchezs Work Phone: [facility] 08-22-2023 11:55-0500 Body height 165.1 cm MANAGEMENT TECH Rogers Kim Work Phone: [facility] 08-22-2023 11:55-0500 Body temperature 97.6 [degF] MANAGEMENT TECH Rogers Kim Work Phone: [facility] 08-22-2023 11:55-0500 Body weight 63.5 kg MANAGEMENT TECH Rogers Kim Work Phone: [facility] 08-11-2023 15:18-0500 Diastolic blood pressure 50 mm[Hg] MANAGEMENT TECH Rogers Kim Work Phone: [facility] 08-11-2023 15:18-0500 Heart rate 68 /min MANAGEMENT TECH Rogers Kim Work Phone: [facility] 08-11-2023 15:18-0500 Respiratory rate 16 /min MANAGEMENT TECH Rogers Kim Work Phone: [facility] 08-11-2023 15:18-0500 SaO2% (BldA) [Mass fraction] 100 % MANAGEMENT TECH Rogers Kim Work Phone: [facility] 08-11-2023 15:18-0500 Systolic blood pressure 105 mm[Hg] MANAGEMENT TECH Rogers Kim Work Phone: [facility] 08-11-2023 14:13-0500 Inhaled oxygen flow rate 2 L/min MANAGEMENT TECH Rogers Kim Work Phone: [facility] 08-11-2023 14:00-0500 Body temperature 98 [degF] MANAGEMENT TECH Rogers Kim Work Phone: [facility] 07-31-2023 13:44-0400 Body temperature 97.7 [degF] MANAGEMENT TECH Rogers Kim Work Phone: [facility] 07-31-2023 13:44-0400 Body weight 64.77 kg MANAGEMENT TECH Rogers Kim Work Phone: [facility] 07-31-2023 13:44-0400 Diastolic blood pressure 68 mm[Hg] MANAGEMENT TECH Rogers Kim Work Phone: [facility] 07-31-2023 13:44-0400 Heart rate 83 /min MANAGEMENT TECH Rogers Kim Work Phone: [facility] 07-31-2023 13:44-0400 Respiratory rate 20 /min MANAGEMENT TECH Rogers Kim Work Phone: [facility] 07-31-2023 13:44-0400 SaO2% (BldA) [Mass fraction] 98 % MANAGEMENT TECH Rogers Kim Work Phone: [facility] 07-31-2023 13:44-0400 Systolic blood pressure 110 mm[Hg] MANAGEMENT TECH Rogers Kim Work Phone: [facility] 06-23-2023 13:38-0400 Body temperature 97.5 [degF] MANAGEMENT TECH Rogers Kim Work Phone: [facility] 06-23-2023 13:38-0400 Body weight 64.95 kg MANAGEMENT TECH Rogers Kim Work Phone: [facility] 06-23-2023 13:38-0400 Diastolic blood pressure 71 mm[Hg] MANAGEMENT TECH Rogers Kim Work Phone: [facility] 06-23-2023 13:38-0400 Heart rate 87 /min MANAGEMENT TECH Rogers Kim Work Phone: [facility] 06-23-2023 13:38-0400 Inhaled oxygen flow rate 2 L/min MANAGEMENT TECH Rogers Kim Work Phone: [facility] 06-23-2023 13:38-0400 Respiratory rate 20 /min MANAGEMENT TECH Rogers Kim Work Phone: [facility] 06-23-2023 13:38-0400 SaO2% (BldA) [Mass fraction] 100 % MANAGEMENT TECH Rogers Kim Work Phone: [facility] 06-23-2023 13:38-0400 Systolic blood pressure 124 mm[Hg] MANAGEMENT TECH Rogers Kim Work Phone: [facility] 06-23-2023 13:21-0400 Body height 165.1 cm MANAGEMENT TECH Rogers iKm Work Phone: [facility] Encounters Encounter Date Encounter Type Care Provider Facility Start: 01-27-2025 Registered Recurring Rogers [facility]IRREP [facility] Start: 01-27-2025 End: 01-27-2025 ambulatory Rogers Kim MANAGEMENT TECH Work Phone: [facility] Work Phone: Start: 01-27-2025 End: 01-27-2025 Patient encounter procedure Rogers AGUIRREP Work Phone: [facility] Work Phone: Start: 12-16-2024 End: 12-16-2024 Office outpatient visit 25 minutes Toro Baron [employer] Work Phone: [facility] Internal Medicine - Family Medicine Comment on above: Arthritis, multiple joint involvement (Primary Dx); Renal cell carcinoma of right kidney ([facility]-HCC); Panlobular emphysema ([facility]-HCC); Benign hypertensive heart disease with heart failure ([facility]-HCC); Obesity, morbid ([facility]-HCC) Start: 12-16-2024 End: 12-16-2024 ambulatory [facility] Thomas BARON [facility] Start: 11-25-2024 Registered Recurring Rogers Kim MANAGEMENT TECH [facility] Work [facility]: Start: 11-25-2024 End: 11-25-2024 ambulatory Rogers Kim MANAGEMENT TECH Work Phone: [facility] Work Phone: Start: 11-25-2024 End: 11-25-2024 Patient encounter procedure Rogers Kim MANAGEMENT TECH Work Phone: [facility] Work Phone: Start: 11-04-2024 End: 11-04-2024 [facility] Start: 10-28-2024 Registered Recurring Rogers Kim MANAGEMENT TECH [facility] Work [facility]: Start: 10-28-2024 End: 10-28-2024 ambulatory Rogers Kim MANAGEMENT TECH Work Phone: [facility] Work Phone: Start: 10-28-2024 End: 10-28-2024 Patient encounter procedure Rogers AGUIRREP Work Phone: [facility] Work Phone: Start: 10-01-2024 End: 10-01-2024 External Result Encounter Aries Thomas Chavez DO Work Phone: [facility] External Department Unsolicited Start: 10-01-2024 End: 10-01-2024 External Result Encounter Aries Guzman Scott DO Work Phone: [facility] External Department Unsolicited Start: 10-01-2024 End: 10-01-2024 Patient encounter procedure Rogers AGUIRREP Work Phone: [facility] Work Phone: Start: 08-05-2024 End: 08-05-2024 Refill Sonia Rosa [employer]ESSION[employer] [facility] Internal Medicine - Family Medicine Comment on above: Chronic obstructive pulmonary disease with acute exacerbation ([facility]-HCC) Start: 07-19-2024 End: 07-22-2024 Refill Sonia Rosa [employer] [facility] Start: 06-24-2024 Registered Recurring MANAGEMENT TECH Rogers Kim [facility] Work [facility]: Start: 06-24-2024 End: 06-24-2024 ambulatory MANAGEMENT TECH Rogers Kim Work Phone: [facility] Work Phone: Start: 06-24-2024 End: 06-24-2024 Patient encounter procedure MANAGEMENT TECH Rogers Kim Work Phone: [facility] Work Phone: Start: 06-18-2024 End: 06-19-2024 External Result Encounter Aries uGzman Scott DO Work Phone: [facility] External Department Unsolicited Start: 06-18-2024 End: 06-19-2024 External Result Encounter Aries Guzman Scott DO Work Phone: [facility] External Department Unsolicited Start: 06-04-2024 End: 06-04-2024 ambulatory MANAGEMENT TECH Rogers Kim Work Phone: [facility] Work Phone: Start: 06-04-2024 End: 06-04-2024 Patient encounter procedure MANAGEMENT TECH Rogers Kim Work Phone: [facility] Work Phone: Start: 05-10-2024 Registered Recurring MANAGEMENT TECH Rogers Kim Work Phone: [facility] Work Phone: Start: 05-10-2024 End: 05-10-2024 ambulatory MANAGEMENT TECH Rogers Kim Work Phone: [facility] Work Phone: Start: 05-10-2024 End: 05-10-2024 Patient encounter procedure MANAGEMENT TECH Rogers Kim Work Phone: [facility] Work Phone: Start: 04-23-2024 End: 04-23-2024 ambulatory [facility] Start: 03-29-2024 Registered Recurring MANAGEMENT TECH Rogers Kim Work Phone: [facility] Work Phone: Start: 03-29-2024 End: 03-29-2024 ambulatory MANAGEMENT TECH Rogers Kim Work Phone: [facility] Work Phone: Start: 03-29-2024 End: 03-29-2024 Patient encounter procedure MANAGEMENT TECH Rogers Kim Work Phone: [facility] Work Phone: Start: 03-21-2024 End: 03-21-2024 Refill Rogers Kim GREEN BELT-MANAGEMENT TECH Work Phone: [facility] Comment on above: Anxiety Start: 01-30-2024 End: 01-30-2024 ambulatory ROGERS KIM [facility] Start: 01-30-2024 End: 01-30-2024 Office outpatient visit 25 minutes Rogers Kim GREEN BELT-MANAGEMENT TECH Work Phone: [facility] Comment on above: Chronic obstructive pulmonary disease with acute exacerbation ([facility]CC) (Primary Dx); Chronic hypoxic respiratory failure (CMS-HCC); Renal cell carcinoma of right kidney ([facility]) Start: 12-29-2023 Registered Recurring MANAGEMENT TECH Rogers Kim Work Phone: [facility] Work Phone: Start: 12-29-2023 End: 12-29-2023 ambulatory MANAGEMENT TECH Rogers Kim Work Phone: [facility] Work Phone: Start: 12-29-2023 End: 12-29-2023 Patient encounter procedure MANAGEMENT TECH Rgoers Kim Work Phone: [facility] Work Phone: Start: 12-26-2023 End: 12-26-2023 Office outpatient visit 15 minutes Rogers Kim GREEN BELT-MANAGEMENT TECH Work Phone: [facility] Comment on above: Acute recurrent fron elena sinusitis (Primary Dx); Nausea and vomiting, unspecified vomiting type Start: 12-26-2023 End: 12-26-2023 ambulatory ROGERS KIM [facility] Start: 11-17-2023 Registered Recurring MANAGEMENT TECH Rogers Kim Work Phone: [facility] Work Phone: Start: 11-17-2023 End: 11-17-2023 ambulatory MANAGEMENT TECH Rogers Kim Work Phone: [facility] Work Phone: Start: 11-17-2023 End: 11-17-2023 Patient encounter procedure MANAGEMENT TECH Rogers Kim Work Phone: [facility] Work Phone: Start: 11-15-2023 External Result Encounter Aries Chavez DO Work Phone: [facility] External Department Unsolicited Start: 11-15-2023 External Result Encounter Aries Chavez DO Work Phone: [facility] External Department Unsolicited Start: 10-26-2023 Registered Recurring MANAGEMENT TECH Rogers Kim Work Phone: [facility] Work Phone: Start: 10-26-2023 End: 10-26-2023 ambulatory MANAGEMENT TECH Rogers Kim Work Phone: [facility] Work Phone: Start: 10-26-2023 End: 10-26-2023 Patient encounter procedure MANAGEMENT TECH Rogers Kim Work Phone: [facility] Work Phone: Start: 10-20-2023 Non-patient / Non-visit MANAGEMENT TECH Cj Kim Work Phone: [facility] Work Phone: Start: 10-19-2023 Non-patient / Non-visit MANAGEMENT TECH Cj Kim Work Phone: [facility] Work Phone: Start: 10-05-2023 End: 10-05-2023 ambulatory MANAGEMENT TECH Rogers Kim Work Phone: [facility] Work Phone: Start: 10-05-2023 End: 10-05-2023 Registered Recurring MANAGEMENT TECH Rogers Kim Work Phone: [facility] Work Phone: Start: 10-05-2023 End: 10-05-2023 ambulatory MANAGEMENT TECH Roegrs Kim Work Phone: [facility] Work Phone: Start: 10-05-2023 End: 10-05-2023 Registered Recurring MANAGEMENT TECH Rogers Kim Work Phone: [facility] Work Phone: Start: 09-12-2023 End: 09-12-2023 ambulatory MANAGEMENT TECH Rogers Kim Work Phone: [facility] Work Phone: Start: 09-12-2023 End: 09-12-2023 Registered Recurring MANAGEMENT TECH Rogers Kim Work Phone: [facility] Work Phone: Start: 08-28-2023 End: 08-28-2023 ambulatory MANAGEMENT TECH Rogers Kim Work Phone: [facility] Work Phone: Start: 08-28-2023 End: 08-28-2023 Registered Recurring MANAGEMENT TECH Rogers Kim Work Phone: [facility] Work Phone: Start: 08-22-2023 End: 08-22-2023 Admission to same day surgery center MANAGEMENT TECH Rogers Kim Work Phone: [facility]Ultrasound [facility] [place] Work Phone: Start: 08-22-2023 End: 08-22-2023 ambulatory MANAGEMENT TECH Rogers Sanchezs Work Phone: [facility] Work Phone: Start: 08-11-2023 Registered Recurring MANAGEMENT TECH Rogers Kim Work Phone: [facility] Work Phone: Start: 07-31-2023 End: 07-31-2023 ambulatory MANAGEMENT TECH Rogers Sanchezs Work Phone: [facility] Work Phone: Start: 07-31-2023 End: 07-31-2023 Registered Recurring MANAGEMENT TECH Rogers Kim Work Phone: [facility] Work Phone: Start: 06-23-2023 End: 06-23-2023 ambulatory MANAGEMENT TECH Rogers Kim Work Phone: [facility] Work Phone: Start: 06-23-2023 End: 06-23-2023 Registered Recurring MANAGEMENT TECH Rogers Kim Work Phone: [facility] Work Phone: Start: 04-27-2023 ambulatory [place] Facility:Malou Jackson Start: 02-28-2023 End: 03-01-[address] DOCTOR MÁRQUEZ Facility:[facility] Start: 02-09-2023 ambulatory [place] Facility:Malou Jackson Start: 02-07-2023 End: 02-08-[address] DOCTOR MÁRQUEZ Facility:[facility] Start: 01-24-2023 End: 01-25-2023 Evaluation and management of inpatient DR FREDDY BARRAZA Facility:[facility] Procedures Date Procedure Procedure Detail Performing Clinician Start: 12-16-2024 Follow-up visit Follow-up TORO BARON Start: 12-16-2024 Adult depression screening assessment Toro Baron [employer] Work Phone: Start: 10-01-2024 Complete blood count with white cell differential, automated Aries Chavez DO Work Phone: Start: 06-18-[address] Aries Thomas Chavez DO Work Phone: Start: 06-18-2024 Complete blood count with white cell differential, automated Aries Chavez DO Work Phone: Start: 06-04-2024 COVID Antigen (POC) MANAGEMENT TECH Rogers Kim Work Phone: Start: 03-14-2024 Computed tomography of abdomen and pelvis with contrast MANAGEMENT TECH Rogers Kim Work Phone: Start: 03-14-2024 CT of thorax with contrast MANAGEMENT TECH Rogers Kim Work Phone: Start: 01-30-2024 Adult depression screening assessment Rogers Kim [employer]MANAGEMENT TECH Work Phone: Start: 12-26-2023 Adult depression screening assessment Rogers Kim [employer]-MANAGEMENT TECH Work Phone: Start: 11-15-2023 Complete blood count with white cell differential, automated Aries Thomas Chavez DO Work Phone: Start: 10-31-2023 Duplex scan of lower limb veins MANAGEMENT TECH Rogers Kim Work Phone: Start: 09-12-2023 Bacteria identified in Urine by Culture Rogers AGUIRREP Work Phone: Start: 09-12-2023 Urine culture MANAGEMENT TECH Rogers Kim Work Phone: Start: 08-22-2023 Ultrasonic guidance for needle biopsy MANAGEMENT TECH Rogers Kim Work Phone: Start: 07-31-2023 Bacteria identified in Urine by Culture Rogers AGUIRREP Work Phone: Start: 07-31-2023 Urine culture MANAGEMENT TECH Rogers Kim Work Phone: Start: 01-25-2023 Insertion of Infusion Device into Right Femoral Vein, Percutaneous Approach DR FREDDY BARRAZA Start: 01-25-2023 Insertion of Endotracheal Airway into Trachea, Via Natural or Artificial Opening DR FREDDY BARRAZA Plan of Treatment Date Care Activity Detail Author Start: 12-16-2025 Adult BMI Screening Adult BMI Screening [facility] Start: 12-16-2025 Depression Screening Depression Screening [facility] Start: 12-16-2025 Tobacco Screening Tobacco Screening [facility] Start: 01-29-2025 Adult BMI Screening Adult BMI Screening [facility] Start: 01-29-2025 Depression Screening Depression Screening [facility] Start: 01-29-2025 Fall Risk Screening Fall Risk Screening [facility] Start: 01-29-2025 Tobacco Screening Tobacco Screening [facility] Start: 12-25-2024 Adult BMI Screening Adult BMI Screening [facility] Start: 12-25-2024 Depression Screening Depression Screening [facility] Start: 12-25-2024 Fall Risk Screening Fall Risk Screening [facility] Start: 12-25-2024 Tobacco Screening Tobacco Screening [facility] Start: 10-28-2024 [facility] Start: 10-25-2024 [facility] Start: 10-01-2024 [facility] Start: 09-16-2024 [facility] Start: 09-13-2024 [facility] Start: 08-05-2024 [facility] Start: 08-05-2024 [facility] Start: 06-24-2024 [facility] Start: 06-22-2024 Medicare Annual Wellness Visit Medicare Annual Wellness Visit [facility] Start: 06-21-2024 [facility] Start: 06-02-2024 Influenza vaccination Influenza Vaccine [facility] Start: 05-10-2024 [facility] Start: 03-29-2024 [facility] Start: 03-29-2024 [facility] Start: 03-06-2024 [facility] Start: 01-30-2024 End: 01-29-2025 XR Chest PA and Lateral X-ray chest 2 views Imaging Routine Chronic obstructive pulmonary disease with acute exacerbation ([facility]) Expected: 01/30/2024, Expires: 01/29/2025 [employer] Work Phone: Comment on above: Expected: 01/30/2024, Expires: Start: 01-18-2024 [facility] Start: 12-29-2023 [facility] Start: 12-28-2023 Erythropoietin (EPO) [Units/volume] in Serum or Plasma [facility] Start: 12-19-2023 [facility] Start: 12-07-2023 [facility] Start: 11-28-2023 [facility] Start: 11-17-2023 [facility] Start: 11-13-2023 [facility] Start: 10-26-2023 [facility] Start: 10-24-2023 [facility] Start: 10-24-2023 [facility] Start: 10-22-2023 Referral to palliative care physician [facility] Start: 10-20-2023 Administration of prophylactic treatment [facility] Start: 10-19-2023 Hospital admission [facility] Start: 10-19-2023 Referral to oncologist [facility] Start: 10-05-2023 [facility] Start: 10-04-2023 Adrenocorticotropic hormone measurement [facility] Start: 09-14-2023 [facility] Start: 09-14-2023 [facility] Start: 08-22-2023 [facility] Start: 08-22-2023 Ultrasonic guidance for needle biopsy [facility] Start: 08-11-2023 [facility] Start: 08-04-2023 [facility] Start: 07-31-2023 [facility] Start: 06-02-2023 Influenza vaccination Influenza Vaccine [facility] Start: 1973 Administration of varicella zoster vaccine Zoster (Shingles) Vacc[facility] (1 of 2[facility] Start: 1973 DTaP,Tdap and Td Vaccines (1 - Tdap) DTaP,Tdap and Td Vaccines (1 - Tdap) [facility] Start: 1972 Adult BMI Follow Up Plan Adult BMI Follow Up Plan [facility] Adrenocorticotropic hormone measurement [facility] Adrenocorticotropic hormone measurement [facility] Adrenocorticotropic hormone measurement [facility] Adrenocorticotropic hormone measurement [facility] Adrenocorticotropic hormone measurement [facility] Adrenocorticotropic hormone measurement [facility] Bacteria identified in Stool by Culture [facility] Bacterial cytolethal distending toxin cdt gene [Presence] in Unspecified specimen by BJORN with probe detection [facility] Bilirubin measurement, urine [facility] Campylobacter coli+jejuni+upsaliensis DNA [Presence] in Stool by BJORN with non-probe detection [facility] Color of Urine [facility] Comprehensive metabo lic 1999 panel - Serum or Plasma [facility] Comprehensive metabo lic 1999 panel - Serum or Plasma [facility] Comprehensive metabo lic 1999 panel - Serum or Plasma [facility] Comprehensive metabo lic 1999 panel - Serum or Plasma [facility] Comprehensive metabo lic 1999 panel - Serum or Plasma Comprehensive metabolic panel Lab STAT 11/15/2023 9:16 AM EST [employer] Work Phone: Comprehensive metabo lic 1999 panel - Serum or Plasma [facility] Comprehensive metabo lic 1999 panel - Serum or Plasma [facility] Comprehensive metabo lic 1999 panel - Serum or Plasma [facility] Comprehensive metabo lic 1999 panel - Serum or Plasma [facility] Comprehensive metabo lic 1999 panel - Serum or Plasma Comprehensive metabolic panel Lab Routine 06/18/2024 9:28 AM EDT [facility] [employer] Work Phone: Comprehensive metabo lic 1999 panel - Serum or Plasma Comprehensive metabolic panel Lab STAT 10/01/2024 8:10 AM EST [facility] [employer] Work Phone: Comprehensive metabo lic 1999 panel - Serum or Plasma [facility] Comprehensive metabo lic 1999 panel - Serum or Plasma [facility] Cortisol Cortisol Lab STA T 11/15/2023 9:16 AM EST [employer] [facility] Abdomen and Pelvi s W contrast IV [facility] CT Abdomen and Pelvi s W contrast IV [facility] CT Abdomen and Pelvi s W contrast IV [facility] CT Abdomen and Pelvi s W contrast IV [facility] CT Abdomen and Pelvi s W contrast IV [facility] CT Abdomen and Pelvi s W contrast IV [facility] CT Chest W contrast IV [facility] CT Chest W contrast IV [facility] CT Chest W contrast IV [facility] CT Chest W contrast IV [facility] CT guided biopsy [facility] Detection of hemoglobin [facility] EKG 12 channel panel [facility] Erythropoietin (EPO) [Units/volume] in Serum or Plasma [facility] Escherichia coli enteropathogenic eae gene [Presence] in Stool by BJORN with non-probe [facility] Escherichia coli enterotoxigenic ltA+st1a+st1b genes [Presence] in Stool by BJORN with [facility] Escherichia coli O15 7 DNA [Presence] in Stool by BJORN with non-probe detection [facility] Escherichia coli Stx 1 and Stx2 toxin stx1+stx2 genes [Presence] in Stool by BJORN with non-probe detection [facility] Glucose [Mass/volume ] in Urine by Test strip [facility] Hepatic function panel [facility] Infectious agent gen otype identification [facility] Measurement of keton es in urine using dipstick [facility] Patient Education [facility] Kidn ey Biopsy [facility] Work Phone: Patient referral [facility] Work Phone: Plesiomonas shigello ides DNA [Presence] in Stool by BJORN with non-probe detection [facility] Protein measurement, urine [facility] Salmonella enterica+ bongori DNA [Presence] in Stool by BJORN with non-probe detection [facility] Shigella species+EIE C invasion plasmid antigen H ipaH gene [Presence] in Stool by BJORN [facility] Urinalysis, specific gravity measurement [facility] Urine dipstick for nitrite F [facility] Urine dipstick for s pecific gravity [facility] Urine pH test [facility] Urobilinogen concent ration, test strip measurement [facility] US Lower extremity v ein - bilateral [facility] Vibrio cholerae DNA [Presence] in Stool by BJORN with non-probe detection [facility] Vibrio cholerae+parahaemolyticus+vu lnificus DNA [Presence] in Stool by BJORN with non-probe detection [facility] Immunizations Immunization Date Immunization Notes Care Provider Fa cili 07-27-2021 Influenza Vaccine, Quadrivalent, Adjuvanted Rogers Kim [employer]MANAGEMENT TE[employer] Work Phone: [facility] 07-27-2021 influenza virus vaccine, unspecified formulation Rogers Kim [employer]-MANAGEMENT TECH Work Phone: [employer] 09-21-2020 COVID-19, mRNA, LNP- S, PF, 100mcg/0.5mL Dose Rogers Kim [employer]MANAGEMENT TECH Work Phone: [facility] Payers Date Payer Category Payer Self-pay 2023 Private Health Insurance [facility] [id number] 2019 Managed Care Other (unspecified) [facility] [place] [address] [id number] 2019 Medicare [id number] 2019 Unknown [id number] 2019 Unknown [id number] 1959 Medicare [id number] 1959 Unknown [id number] 1954 Unknown [id number] 1954 Unknown [id number] 1954 Unknown [id number] 1954 Unknown [id number] 1954 Unknown [id number] 1954 Unknown [id number] [id number] 1954 Unknown [id number] 1954 Unknown [id number] Unknown [id number] Social History Date Type Detail Facility Start: 06-23-2023 End: 06-24-2024 Tobacco smoking status NHIS Ex-smoker (finding) [facility] Start: 1955 Sex Assigned At Female [facility] Tobacco smoking stat us NHIS Tobacco smoking consumption unknown [facility] Start: 1955 Sex Assigned At Not on file [facility] Start: 06-22-2023 End: 12-16-2024 Gender identity Not on file [facility] Start: 10-28-2024 End: 01-27-2025 Sex Female (finding) [facility] History of tobacco use Current smoker [facility] History of tobacco use Cigarette Smoker P [facility] Start: 02-07-2023 End: 01-30-2024 Tobacco use and exposure Smokeless tobacco non-user [facility] Start: 01-30-2024 End: 12-16-2024 Alcoholic beverage intake Lifetime non-drinker (finding) [facility] Start: 06-22-2023 End: 12-16-2024 History of Social function [facility] Do you belong to any clubs or organizations such as shinto groups, unions, fraternal or athletic groups, or school groups? No [facility] Are you now , , , , never or living with a partner? [facility] How often to you hav e a drink containing alcohol? Never [facility] How many standard dr inks containing alcohol do you have on a typical day? Patient does not drink [facility] How hard is it for y ou to pay for the very basics like food, housing, medical care, and heating Not very hard [facility] Do you feel stress - tense, restless, nervous, or anxious, or unable to sleep at night because your mind is troubled all the time - these days [OSQ] Only a little [facility] Goals Date Patient Goal Desired Activity /State Clinical Notes 2019 to 01-27-2025 BURT Tilley - 12/16/2024 11:20 AM EDTTelephone Encounter - Sonia Lee CMA - 08/05/2024 12:41 PM ESTTelephone Encounter - Sonia Lee, IRENE - 08/05/2024 12:41 PM EST Note Date & Type Note Facility 01-27-2025 Progress note [facility] enter 12-16-2024 History of Present illness Narrative Images from the original note were not included. [address] [place] [id number] SUBJECTIVE: Patient ID: Perla Ibarra is a 69 y.o. female. Chief Complaint Patient presents with Follow-up Is accommodated by significant other. She is previous patient of Rogers Kim APRN She is monitored by oncology, cardiology, and pulmonology. She currently has right renal cell carcinoma.States was found while hospitalized after having a IA, December 2022. Monitored by Dr. Aries Chavez at [facility] for renal carcinoma. She states he also monitors her hypothyroidism. Patient is also monitored by pulmonology, Dr. Cervantes for COPD. Wears portable continuous oxygen. Her primary concern today is multiple joint pain. Relates bilateral shoulders is most significant pain. Has tried Tylenol but not effective. She is unable to take Motrin due to chemotherapy and history of CAD. She would like to discuss if there could be something else to help her pain. Follow-up Associated symptoms include arthralgias and myalgias. Pertinent negatives include no chest pain, chills or fever. The following portions of the patient's history were reviewed and updated as appropriate: allergies, current medications, past family history, past medical history, past social history, past surgical history and problem list. Past Surgical History: Procedure Laterality Date WISDOM TOOTH EXTRACTION Past Medical History: Diagnosis Date Anxiety Cancer ([facility]) Chronic headache COPD (chronic obstructive pulmonary disease) ([facility]) Hyperlipidemia Myocardial infarction ([facility]) TB (tuberculosis), treated Immunization History Administered Date(s) Administered COVID-19, mRNA, LNP-S, PF, 100mcg/0.5mL Dose 09/21/2020 Influenza Vaccine, Quadrivalent, Adjuvanted 07/27/2021 REVIEW OF SYSTEMS: Review of Systems Constitutional: Negative for chills and fever. HENT: Negative. Eyes: Negative for visual disturbance. Respiratory: Negative for chest tightness and shortness of breath. Cardiovascular: Negative for chest pain and palpitations. Gastrointestinal: Negative. Endocrine: Negative. Genitourinary: Negative for menstrual problem and pelvic pain. Musculoskeletal: Positive for arthralgias and myalgias. Skin: Negative. Allergic/Immunologic: Negative. Neurological: Negative for syncope and facial asymmetry. Hematological: Does not bruise/bleed easily. Psychiatric/Behavioral: Negative. PHYSICAL EXAMINATION: Vitals: 12/16/24 1135 BP: 110/60 BP Site: Left Arm BP Postition: Sitting Pulse: 90 Resp: 18 Temp: 36.8 C (98.2 F) TempSrc: Tympanic SpO2: 96% Weight: 95.8 kg (211 lb 3.2 oz) Height: 157.5 cm (5' 2 ) Patient noted to have elevated BMI and the following intervention(s) were applied: encouragement to exercise. Physical Exam Vitals and nursing note reviewed. Constitutional: General: She is not in acute distress. Appearance: She is well-developed. She is not diaphoretic. HENT: Head: Normocephalic and atraumatic. Right Ear: Tympanic membrane and external ear normal. Left Ear: Tympanic membrane and external ear normal. Nose: Nose normal. Mouth/Throat: Mouth: Mucous membranes are moist. Pharynx: No oropharyngeal exudate. Eyes: General: Right eye: No discharge. Left eye: No discharge. Conjunctiva/sclera: Conjunctivae normal. Pupils: Pupils are equal, round, and reactive to light. Neck: Thyroid: No thyromegaly. Vascular: No JVD. Cardiovascular: Rate and Rhythm: Normal rate and regular rhythm. Heart sounds: Normal heart sounds. No murmur heard. No friction rub. No gallop. Pulmonary: Effort: Pulmonary effort is normal. Breath sounds: Normal breath sounds. Abdominal: General: Bowel sounds are normal. There is no distension. Palpations: Abdomen is soft. There is no mass. Tenderness: There is no abdominal tenderness. Musculoskeletal: General: Normal range of motion. Cervical back: Normal range of motion and neck supple. Lymphadenopathy: Cervical: No cervical adenopathy. Skin: General: Skin is warm and dry. Capillary Refill: Capillary refill takes less than 2 seconds. Neurological: Mental Status: She is alert and oriented to person, place, and time. Deep Tendon Reflexes: Reflexes are normal and symmetric. Psychiatric: Mood and Affect: Mood normal. Behavior: Behavior normal. Thought Content: Thought content normal. Judgment: Judgment normal. ASSESSMENT/PLAN: Perla was seen today for follow-up. Diagnoses and all orders for this visit: Arthritis, multiple joint involvement - traMADoL (ULTRAM) 50 mg tablet; Take 1 tablet (50 mg total) by mouth every 8 (eight) hours as needed for pain for up to 7 days. Renal cell carcinoma of right kidney ([facility]) Panlobular emphysema ([facility]) - nebulizer supplies Benign hypertensive heart disease with heart failure ([facility]) Obesity, morbid ([facility]) Primary joints osteoarthritis. Most painful site is bilateral shoulder pain. States pain was better when she was on steroids last month. After 3 days of stopping steroids, the pain has been uncontrolled. She has tried Tylenol but is not effective. Unable to take NSAIDS per oncologist and qc lab technician. We discussed Tramadol today. She is willing to do 7 day trial. 2. Body mass index is 38.63 kg/m . Patient noted to have elevated BMI and the following intervention(s) were applied: Discussed current weight today. Consider healthy food choices, portion control. Avoid sugary beverages and high concentrated sweets. Routine exercise regimen encouraged. 3. COPD Managed by Dr. Cervantes. Wears continue oxygen 2 liters per [place] Currently uses DuoNebs for treatment. Unable to afford previous steroidal inhalers. She also did not do well with aftertaste from powder prep. No current exacerbation 4. Renal cell carcinoma She currently has right renal cell carcinoma.States was found while hospitalized after having a IA, December 2022. Monitored by Dr. Aries Chavez at [facility] for renal carcinoma. She states he also monitors her hypothyroidism. Her chemotherapy, Keytruda, is on hold right now. Plan to restart in the near future. There was possible concern about drug causing rashes. 5. History of CHF No current exacerbation Is managed by Cardiology, [facility] Recent echocardiogram November 2024 -Mild cocentric left ventricular hypertrophy with normal systolic function Normal LVEF of 55% Normal diastolic function Normal right-sided pressures Her IA history includes the following: transferred from [facility] to [facility] for evaluation of acute respiratory failure in setting of acute decompensated heart failure requiring intubation and elevated troponin. She underwent coronary angiography on 01/26/2023 which revealed nonobstructive coronary artery disease. Right heart catheterization showed elevated pressures. Declines mammogram and DEXA screening discussed today ALL QUESTIONS ANSWERED Total time spent was 35 minutes: Preparing to see the patient (e.g., review of tests) Obtaining and/or reviewing separately obtained history Performing a medically appropriate examination and/or evaluation Counseling and educating the patient/family/caregiver Ordering medications, tests, or procedures Follow-up: Medicare wellness BURT Tilley 12/16/24 1433 documented in this encounter [facility] 11-04-2024 Note Cardiology Clinic No te Subjective Perla Ibarra is a 69 y.o. year old female patient with nonischemic cardiomyopathy, heart failure reduced ejection fraction with EF 45%, coronary artery disease, tobacco use, probable COPD, and right renal mass concerning for renal cell carcinoma. She was transferred from [facility] to [facility] for evaluation of acute respiratory failure [...] mg daily, and aspirin 81 mg daily. Patient here for 6 mo follow up CHF, CAD, hypertension, and NICM. Had echo in May 2024 after last apt in April. Denies chest pain, palpitations, and lightheadedness. Says she gets nauseous and vomits sometimes after PM meds. No chest pain. No shortness of breath. No additional complaints Patient Active Problem List Diagnosis Acute coronary [...] vomiting Iron deficiency anemia Nonischemic cardiomyopathy (CMS/HCC) Family History Problem Relation Name Age of Onset Tuberculosis Mother Heart attack Brother Heart failure Maternal Grandmother Heart attack Maternal Grandfather Social History Tobacco Use Smoking status: Former Current packs/day: 0.00 Types: Cigarettes Quit date: 01/26/2023 Years since quittin.7 Smokeless tobacco: Never Substance Use Topics Alcohol use: Never Drug use: Never Cardiology ROS: 10 point ROS is performed and is negative unless otherwise specified in HPI. Objective Visit Vitals Smoking Status Former Physical Exam General: Awake, alert, good spirits. NAD Pulm: diffuse end expiratory wheezing Cards: Regular rate and rhythm, S1, S2. No S3 or S4 gallop. Murmur: none Abd: Soft, Nontender, physiologic bowel sounds are present Extr: Lower extremity edema: None. DP pulses:2+ Skin: warm, dry, well perfused Neuro: A&Ox3, No gross deficits Allergies Allergies Allergen Reactions Erythromycin Unknown Per report from [facility] Current Outpatient Medications: albuterol 90 mcg/actuation inhaler, [...] as directed., Disp: 45 tablet, Rfl: 3 tiotropium-olodateroL (Stiolto Respimat) 2.5-2.5 mcg/actuation mist inhaler, 1 (one) time each day at the same time., Disp: , Rfl: Recent Labs Lab Results Component Value Date [...] 01/25/2023 TRIG 107 01/25/2023 HDL 46 01/25/2023 (more content not included)... [facility] 08-05-2024 Miscellaneous Notes Can you make sure it has an ICD code with it so they can bill medicare part B documented in this encounter [facility] 08-05-2024 Telephone encounter Note Can you make sure it has an ICD code with it so they can bill medicare part B [facility] 04-23-2024 Note Patient here for 6 [...] All other systems reviewed and are negative. [facility] 04-23-2024 Note Cardiovascular Medic [facility] SUBJECTIVE Chief Complaint Patient presents [...] disease) (CMS/HCC) NSTEMI (non-ST elevated myocardial infarction) ([facility]) PNA (pneumonia) Tuberculosis Family History Problem Relation [...] is soft. Musculos (more content not included)... [facility] 01-30-2024 History of Present illness Narrative Subjective Patient ID: Perla Ibarra is a 68 y.o. female. Hasn't felt like she ever completely cleared her sinus infection She is still plugged up but her drainage is clear but sticky She is doing a lot of wheezing and is short of breath when she lies down and feels gurgling in her left lower side - she has not had fever She has a persistent cough She has not used ventolin inhaler since the fall She is getting pain in chest and rib cage with coughing with moving her bowels and after eating With her bowel movements she is no longer constipated but she feels very warm, crampy and she is getting a lot of stomach pain for about an hour and then it subsides She feels very warm after taking her spironolactone and since increasing her thyroid from 50 - 75 mcgs she has felt very nauseated Her cough has been productive but sputum has been clear The following portions of the patient's history were reviewed and updated as appropriate: allergies, current medications, past family history, past medical history, past social history, past surgical history, problem list, and medication reconciliation was completed including current medication and post discharge medication. Review of Systems Constitutional: Positive for activity change and fatigue. Negative for appetite change and fever. HENT: Positive for congestion. Eyes: Negative. Respiratory: Positive for cough, shortness of breath and wheezing. Cardiovascular: Positive for chest pain. Gastrointestinal: Positive for abdominal pain and nausea. Endocrine: Negative. Genitourinary: Negative. Musculoskeletal: Positive for arthralgias. Skin: Negative. Allergic/Immunologic: Negative. Neurological: Negative for dizziness. Hematological: Negative. Psychiatric/Behavioral: Negative. Objective Physical Exam Vitals and nursing note reviewed. Exam conducted with a jacker present (vice president of business development). Constitutional: Appearance: She is ill-appearing. HENT: Head: Normocephalic. Salivary Glands: Right salivary gland is not diffusely enlarged or tender. Left salivary gland is not diffusely enlarged or tender. Right Ear: Hearing, tympanic membrane and ear canal normal. Left Ear: Hearing, tympanic membrane and ear canal normal. Eyes: General: Lids are normal. Conjunctiva/sclera: Right eye: Right conjunctiva is not injected. Left eye: Left conjunctiva is not injected. Neck: Thyroid: No thyroid tenderness. Trachea: Trachea normal. Cardiovascular: Rate and Rhythm: Normal rate and regular rhythm. Heart sounds: Normal heart sounds. No murmur heard. Pulmonary: Effort: No respiratory distress. Breath sounds: Wheezing present. Comments: Wearing nasal oxygen at 2.5 L per NC Abdominal: General: Abdomen is flat. Bowel sounds are normal. Palpations: Abdomen is soft. Tenderness: There is no abdominal tenderness. Musculoskeletal: Cervical back: Neck supple. Lymphadenopathy: Cervical: No cervical adenopathy. Skin: General: Skin is warm and dry. Coloration: Skin is sallow. Psychiatric: Attention and Perception: Attention normal. Mood and Affect: Mood normal. Behavior: Behavior normal. Thought Content: Thought content normal. Assessment/Plan Perla was seen today for cough. Diagnoses and all orders for this visit: Chronic obstructive pulmonary disease with acute exacerbation ([facility]) - X-ray chest 2 views; Future - albuterol (PROVENTIL,VENTOLIN) 2.5 mg /3 mL (0.083 %) nebulizer solution; Inhale 3 mL (2.5 mg total) by nebulization every 6 (six) hours as needed for wheezing. Chronic hypoxic respiratory failure ([facility]) Renal cell carcinoma of right kidney ([facility]) Other orders - amoxicillin-pot clavulanate (AUGMENTIN) 875-125 mg per tablet; Take 1 tablet by mouth in the morning and 1 tablet before bedtime. Do all this for 7 days. - predniSONE (DELTASONE) 20 mg tablet; Take 1 tablet (20 mg total) by mouth in the morning for 7 days. Will get a chest x-ray to differentiate between possible infection, worsening copd or perhaps chf Will initiate augmentin, prednisone and home neb treatments a minimun of twice daily for the next week but may use up to 4 times daily Continue care with oncology Continue home oxygen continously KAVITA Watson 01/30/24 1210 documented in this encounter [employer] 12-29-2023 Progress note Note Date/Time December 29, 2023 8:50am [facility] [place] [address] Cancer Center Note Signed Patient: Perla Ibarra MR# : [id number] : 1955 Acct:[id number] Age/Sex: 68 / F Type: REG AMB Date of Service: 12/29/23 Copies to: DEIDRE Barrett~ Assessment & Plan A/P (1) Clear cell renal cell carcinoma: Plan Right renal Cancer, [id number] cm with extension into right renal vein and inferiorvena cava.. 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 Has seen Dr. Mathew in [place] for consideration of nephrectomy. Determined not a [...] and Xanax as needed. Primary patient of Rogers Kim nurse practitioner in [place]. Also follows with Dr. Cervantes and Dr. Quach of urology. She had a hospitalization in December 2022 and ultimately was life flighted to [facility] for a myocardial infarction and ischemic [...] 2 days ago. She presented to [facility] where she was hydrated and subsequently transferred to [facility]. --She specifically denies any anginal chest pain, but does note some dyspnea that started a few days after starting the axitinib. She notes that she was shaking all over but did not fall to the ground or lose consciousness therefore it was not felt to be a seizure. 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 -- At [facility] she was noted to have white [...] up to inpatient stay.She was hospitalized at [facility] from 10/19/2023-10/25/2023 for headache, abdominal pain, hyponatremia, [...] Reasons: 6 wk f/u with scans at [facility], Clear cell renal cell carcinoma Accompanied by: [...] for a 6 week follow up with [facility] labs and outside imaging for review. Has treatment today. [facility] Medical History Medical History Hyponatremia Chronic hypoxic respiratory failure 2 L Oxygen via NC at all times. 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 Myocardial infarct COPD (chronic obstructive pulmonary [...] by Aries Chavez II, DO> 12/29/23 0926 [facility] Work Phone: 1(875) 600-393303-26-2024 History of Present illness Narrative* Rogers Kim, GREEN [employer]T-MANAGEMENT TECH - 12/26/2023 3:00 PM EDT Subjective Patient [...] oncology later this week KAVITA Watson 12/26/23 2619 [facility] Progress note Author Rogers Moon [facility] September 12, 2023 4:38pm Note Date/Time September 12, 2023 2:13pm [facility] at [address] [address] Hem/Onc Follow Up Note - OP Signed Patient: Perla Ibarra MR# : [id number] : 1955 Acct:[id number] Age/Sex: 68 / F Type: REG RCR Copies to: Rogers Kim, MANAGEMENT TECH SELF,REFERRAL Aries Chavez, II, DO~ Date of Service: 09/12/2023 Time of Service: 14:12 - Assessment & Plan (1) Renal mass Plan: 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 Right renal mass, [id number] cm with extension into right renal vein and inferior vena cava.. Has seen Dr. Mathew in [place] for consideration of nephrectomy. Determined not a [...] metoprolol, Xanax as needed. Primary patient of Rogers Trujillo nurse practitioner in [place]. Also follows with Dr. Cervantes and Dr. Quach of urology. She had a hospitalization in December 2022 and ultimately was life flighted to [facility] for a myocardial infarction and ischemic [...] greater than right. 07/31/[address] mathew last week. He was not eager for [...] for coordination of care (as documented) and [id number] counseling of patient and/or family. [facility] - Medical History Medical History: Medical History (Last Reviewed 08/22/23 @ 11:55 by Cecilia Harris RN) Acute coronary syndrome Acute respiratory failure with hypoxia and hypercapnia Acute systolic heart failure COPD (chronic obstructive pulmonary disease) Myocardial infarct Parainfluenza infection 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 - Family History Family History: Family [...] tabs 09/07/23 [Rx Confirmed 09/12/23] Dictated By: Rogers Moon APRN DD/ 1412 Signed By: <Electronically signed by CHAD Moon> 09/12/[address] 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 Right renal mass, 15*9*12 cm with extension into right renal vein and inferior vena cava.. Has seen Dr. Mathew in [place] for consideration of nephrectomy. Determined not a [...] metoprolol, Xanax as needed. Primary patient of Rogers Trujillo nurse practitioner in [place]. Also follows with Dr. Cervantes and Dr. Quach of urology. She had a hospitalization in December 2022 and ultimately was life flighted to [facility] for a myocardial infarction and ischemic [...] greater than right. 07/31/[address] mathew last week. He was not eager for [...] for coordination of care (as documented) and [id number] counseling of patient and/or family. [facility] - Medical History Medical History: Medical History (Last Reviewed 08/22/23 @ 11:55 by Cecilia Harris RN) Acute coronary syndrome Acute respiratory failure with hypoxia and hypercapnia Acute systolic heart failure COPD (chronic obstructive pulmonary disease) Myocardial infarct Parainfluenza infection 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 - Family History Family History: Family [...] by Aries Chavez II, DO> 09/05/23 1133 [facility] Work Phone: 1(534) 372-608910-30-2023 Progress note Author Aries Chavez [facility] July 31, 2023 2:29pm Note Date/Time July 31, 2023 1 :59pm [facility] at [address] [address] Hem/Onc Follow Up Note - OP Signed Patient: Perla Ibarra MR# : [id number] : 1955 Acct:[id number] Age/Sex: 67 / F Type: REG RCR Copies to: Rogers Kim, DEIDRE SELF,REFERRAL ~ Date of Service: 07/31/2023 Time of Service: 13:59 - Assessment & Plan (1) Renal mass Plan: Right renal mass, 15*9*12 cm with extension into right renal vein and inferior vena cava.. Likely a neoplasm. Has seen Dr. Mathew in [place] for consideration of nephrectomy. No definitive retroperitoneal [...] start here, if not salazar is reasonable, [place]. f/u after. check ua and culture. offer her bactrim DS one tab bid x 10 days. get images uploaded to our system from [employer]. iv iron soon. cbc, cmp, iron studies [...] metoprolol, Xanax as needed. Primary patient of Rogers Trujillo nurse practitioner in [place]. Also follows with Dr. Cervantes and Dr. Quach of urology. She had a hospitalization in December 2022 and ultimately was life flighted to [facility] for a myocardial infarction and ischemic [...] greater than right. 07/31/[address] mathew last week. He was not eager for [...] for coordination of care (as documented) and [id number] counseling of patient and/or family. [facility] - Medical History Medical History: Medical History (Last Reviewed 06/23/23 @ 13:30 by Elayne Taylor) Acute coronary syndrome Acute respiratory failure with hypoxia and hypercapnia Acute systolic heart failure COPD (chronic obstructive pulmonary disease) Myocardial infarct Parainfluenza infection 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 - Family History Family History: Family [...] by Aries Chavez II, DO> 07/31/23 1429 [facility] Work Phone: 1(123) 646-639210-10-2023 Progress note Author Aries Chavez [facility] July 11, 2023 1:21pm Note Date/Time June 23, 2023 1:54pm [facility] at [address] [place] [address] Hem/Onc Follow Up Note - OP Signed Patient: Perla Ibarra MR# : [id number] : 1955 Acct:[id number] Age/Sex: 67 / F Type: REG RCR [...] of nephrectomy. I have communicated with Dr. Mathew who is now with [facility]. No definitive retroperitoneal lymphadenopathy. Extensive reticulonodular [...] MRI and ct images to here from [facility]. refer to [facility] at [facility]. f/u with me in a month (after imaging). get an CT a/p with contrast in a month at [facility]. cbc, cmp, iron studies b12, [...] metoprolol, Xanax as needed. Primary patient of Rogers Trujillo nurse practitioner in [place]. Also follows with Dr. Cervantes and Dr. Quach of urology. She had a hospitalization in December 2022 and ultimately was life flighted to [facility] for a myocardial infarction and ischemic [...] for coordination of care (as documented) and lrbz-kv-[id number] counseling of patient and/or family. [facility] - Medical History Medical History: Medical History (Last Reviewed 06/23/23 @ 13:30 by Elayne Taylor) Acute coronary syndrome Acute respiratory failure with hypoxia and hypercapnia Acute systolic heart failure COPD (chronic obstructive pulmonary disease) Myocardial infarct Parainfluenza infection 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 - Family History Family History: Family [...] by Aries Chavez II, DO> 07/11/[address] [facility] Work Phone: [phone]) [phone] NotePROCEDURE: XR CHEST 1 V DATE: 01/25/2023 [...] Electronically authenticated by: ANTONY VELASQUEZ Date: 2023-01-25 15:11[facility]10-31-2019 Progress note Author Aries Chavez [facility] Note Date/Time January 27, 2025 2:2 0pm [facility] [place] [address] Cancer Center Note Signed Patient: Perla Ibarra MR# : [id number] : 1955 Acct:[id number] Age/Sex: 69 / F Type: REG AMB Date of Service: 01/27/25 Copies to: DEIDRE Barrett~ Assessment & Plan A/P Patient Instructions: lasix 20mg prn. f/u in [address] c/a/p with contrast at [place] prior. cbc, cmp, tsh, ft4, acth, am cortisol in 3 months and prior to f/u. CHEMO PLAN Treatment Plan Pembrolizumab 400mg Every 6 Weeks Clinical Indication Locoregional Recurrence Cycle Number Last Admin 7 of 12 Cycle Day Next Admin -43 of 42 No Active Chemotherapy History of Present Illness HPI ASSESSMENT/PLAN Right renal Cancer, [id number] cm with extension into right renal vein and inferiorvena cava.. 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 Has seen Dr. Mathew in [place] for consideration of nephrectomy. Determined not a [...] complaints and severe fatigue and some confusion. Axitinib discontinued. She had spike in LFTs in january 2024, we held keytruda for two months following this. at visit 03/29/24 her LFTs resolved, her tumor a bit smaller, she would like to rechallenge KEYTRUDA, she turned down reconsultation for surgical intervention. she had great response as of jun 2024 scans. continued response oct 2024 scan Held keytruda OFF ALL KEYTRUDA SINCE 08/05/24 rash Sep 2024 she developed a rash after increasing her levothyroxine dose. he continues with itchy skin. Recommended regular skin hydration. Less likely to be immune related at this time. She noted a small rash when increasing up to 75mcg, however held the 100mcg and rash continued to worsen. Will re-start at 100mcg daily Wt gain Now off steroids. TSH acceptable. Hopefully, weight gain will soon reverse. Iron deficiency anemia d/t chronic blood loss. Also with malabsorption She received IV Injectafer x 2 early Aug 2023 Hyper and now hypothyroid. will start Synthroid 50mcg po daily at visit 12/29/23. raised to 75mcg and she did not feel well, will drop back to 50 at vist in late march will increase again to 75mcg given increased TSH. Sep 2024 continue 100mcg levothyroxine daily depression cont lexapro 10mg daily. Max is 20 mg once daily. Discussed benefits of addingon therapy, mindfulness, health lifestyle., Check labs to rule out hematologic cause. GERD May be secondary to prednisone use. Treat with course of PPI PHYSICAL EXAMINATION ECOG PS:2 General : patient is alert and oriented to person place and time, no acute distress. Neck: no JVD or thyromegaly. Lymph: no cervical, supraclavicular, axillary adenopathy. Heart: regular rate and rhythm no murmurs rubs or gallops. Abdomen: soft, nontender,, nondistended,. Lungs: clear to auscultation bilaterally. No wheezes, rales, rhonchi, on NC oxygen, decreased lung sounds . Extremities: no clubbing cyanosis, ambulates with rollator mild excoriations to chest History of Present Illness HPI 69-year-old female on treatment for unresectable clear-cell renal cell carcinoma, eosinophilic variant. Right renal mass was 15 x 9 x 12 cm with extension into the right renal vein and inferior vena cava. Comorbidities include nonischemic cardiomyopathy, reduced ejection fraction, coronary artery disease, tobacco use, COPD, renal cell carcinoma. She requires 2 L of oxygen chronically Also follows with Dr. Cervantes and Dr. Quach of urology. She had a hospitalization in December 2022 and ultimately was life flighted to [facility] for a myocardial infarction and ischemic [...] 2 days ago. She presented to [facility] where she was hydrated and subsequently transferred to [facility]. 10/26/2023: Perla is here for interval follow up/follow up to inpatient stay.She was hospitalized at [facility] from 10/19/2023-10/25/2023 for headache, abdominal pain, hyponatremia, [...] she was discharged home from the hospital. 12/29/[address] chest abdomen [...] bony disease noted. tolerating pembrolizumab well overall. 03/29/24 ct imaging with further shrinkage of tumor. ' 06/24/24 she continues on 2 l oxygen, recovering from covid, persistent cough. reviewed ct scans from [facility] that her renal mass is now down to 3.9cm, dramatic continued improvement. 10/01/24 Will plan to have her restart 100 mcg as her thyroid levels have improved at this dose. 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 LAST pembro was 08/05/25 11/25/24 Presents today feeling crappy. She reports heartburn, blurry vision, and feeling depressed. She stopped prednisone on the . Reviewed TSH 5.95. Givenage this is within range. She continues with itchy skin. Recommended regular skin hydration. Less likely to be immune related at this time. See an eye doctorfor her eyes. Would would appreciate an eye exam to rule out any sort of autoimmune related eye disease. For her heartburn start on Prilosec prilosec 20mg for 4 weeks. Recent bout of steroids likely exacerbated underlying heartburn. Put on Prilosec and check CBC to rule out occult GI bleeding. Reviewed healthy lifestyle, importance of regular exercise. Discussed potential benefit of counseling. She reports she feels that her mood will improve once thesun is out more. She is uninterested in additional interventions for this. Check labs check CBC CMP iron folate and B12. Encouraged to establish with a PCP. Repeat scans in 3 months to assess stability of renal cell. reviewed imaging from [place] from 10/26/24 n R complex renal mass 4.2 x 3.9 x 5.9 cm This is unchanged. No new metastatic disease. no adenopathy. 01/27/[address] c/a/p shows roughly stable ct imaging with peristent renal mass. cont on 2 l oxygen. some edema in legs. she was rogers kim and now has toro baron. MANAGER OFFICE. fatigue is profound. Intake Vitals/Pain Assessment 01/27/25 13:39 Weight 98.43 kg BP 129/79 Blood Pressure Location Rt brachial Position Sitting Temp 97.6 F Temp Source Oral Pulse 82 Pulse Source NIBP Respiration 18 Pulse Oximetry (%) 98 Oxygen Delivery Method nasal canula Oxygen Flow Rate 2 Are you having pain? Yes Pain Location upper back, radiates to front Intake Visit Reasons: Follow Up 2 Months Accompanied by: Friend Allergies erythromycin base Adverse Reaction (Verified 01/27/25 13:42) Diarrhea Home Medications - Last Reconciled 01/27/25 by RONAN Wang aspirin 81 mg PO DAILY atorvastatin 20 mg PO QHS docusate sodium (Colace) 100 mg PO DAILY escitalopram oxalate take 1 tablet by mouth every morning famotidine 20 mg PO DAILY levothyroxine 100 mcg PO DAILY metoprolol succinate ER 25 mg PO DIRECTED omeprazole magnesium (Prilosec OTC) 20 mg PO DAILY ondansetron 4 mg PO Q6H PRN polyethylene glycol 3350 (HealthyLax) 17 grams PO DAILY sacubitril-valsartan 24-26 mg (Entresto) 1 tab PO BID spironolactone 12.5 mg PO DIRECTED tramadol 50 mg PO Q8HR PRN Gastrointestinal Is the patient taking opioids for pain control?: No Bowel Protocol for Opioids Given: No Bowel Pattern: Regular Bowel Movement Aid(s): None Falls Fall Precaution Measures Taken: Patient in chair Nurse's Note: Patient is here for a 2 month follow up with outside labs for review. Patient has questions about taking supplements for her macular degeneration. She also states that her PCP has prescribed Tramadol for her, but she has yet to take it.Patient also reports edema in bilateral lower extremities. [facility] Medical History Medical History Hyponatremia Chronic hypoxic respiratory failure 2 L Oxygen via NC at all times. 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 Myocardial infarct COPD (chronic obstructive pulmonary disease) Acute systolic heart failure Parainfluenza infection Acute respiratory failure with hypoxia and hypercapnia Acute coronary syndrome Family History Family History Mother Tuberculosis Multiple sclerosis Brother Lymphoma Family/Other No problems noted. Maternal Grandfather Brain tumor Social History Social History Smoking status: Former smoker Within the past year, how often did you have a drink containing alcohol: never AUDIT-C Alcohol total score: 0 AUDIT-C Alcohol score interpretation: A score less than 3 is consistent with normal alcohol consumption. In the past 12 months, have you used illegal drugs or prescription drugs for non-medical reasons?: No Results - [facility] ([facility]) LAB RESULTS No Data to Display Social Determinants of Health Screening SDOH last assessed in clinic: 01/27/25 Will the patient participate in the screening?: Yes Do you worry about having a steady place to live?: No In the past 12 months, have you had to go without electric, gas, oil, or water in your home?: No Have you or anyone in your house had to go without enough food to eat?: No Has lack of reliable transportation kept you from medical appointments or from doing things needed for daily living?: No Has anyone in your support network made you feel unsafe for any reason?: No Does the patient want assistance with any of the above?: No Dictated By: Aries Chavez II, DO DD/ 1652 Signed By: <Electronically signed by Aries Chavez II, DO> 01/27/25 8250 [facility] Work Phone: evaluation noteNo assessment information available [facility] Work Phone: evaluryrmt note* Diagnosis Onset Date Resolution Status Renal mass acute [facility] Work Phone: evaluation note* Diagnosis Onset Date Resolution Status Clear cell renal cell carcinoma acute Encounter for antineoplastic chemotherapy acute Hyponatremia acute Iron deficiency anemia acute [facility] Work Phone: evaluation note* Diagnosis Onset Date Resolution Status Clear [...] deficiency anemia acute Nonischemic cardiomyopathy a cute [facility] Work Phone: evaluation note* Diagnosis Onset Date Resolution Status Acute [...] acute Hyponatremia acute Iron deficiency anemia acute [facility] Work Phone: evaluation note* Diagnosis Onset Date Resolution Status Cancer [...] acute Iron deficiency anemia acute Hyponatremia resolved [facility] Work Phone: Evaluation note* Diagnosis [...] acute Iron deficiency anemia acute Hyponatremia resolved [facility] Work Phone: evaluation note* Diagnosis Onset Date Resolution Status Clear cell renal cell carcinoma acute Encounter for antineoplastic chemotherapy acute Iron deficiency anemia acute Hyponatremia resolved [facility] Work Phone: Evaluation note* Diagnosis Onset Date Resolution Status Clear cell renal cell carcinoma acute Encounter for antineoplastic chemotherapy acute Iron deficiency anemia acute Hyponatremia resolved Contact with and (suspected) exposure to covid-19 noneactive [facility] Work Phone: evaluation note* Diagnosis Onset Date Resolution Status COVID-19 noneactive Contact with and (suspected) exposure to covid-19 noneactive Clear cell renal cell carcinoma acute Encounter for antineoplastic chemotherapy acute Iron deficiency anemia acute Hyponatremia resolved [facility] Work Phone: Evaluation note* Diagnosis Onset Date Resolution Status Admit Date Clear cell renal cell carcinoma acut e October 28, 2024 12:56pm Encounter for antineoplastic chemotherapy acute October 28 12:56pm Iron deficiency anemia acute Ja nuary 2024 12:56pm Hyponatremia resolved October 12:56pm Renal mass deleted October 28, 2024 12:56pm [facility] Work Phone: Evaluation note* Diagnosis Chronic obstructive pulmonary disease with acute exacerbation (CMS-HCC)- Primary Chronic hypoxic respiratory failure (CMS-HCC) Renal cell carcinoma of right kidney ([facility]-HCC) [facility] Diagnosis Anxiety Anxiety state, unspecified [facility] in this [facility] Diagnosis Acute recurrent frontal sinusitis- Primary Nausea and vomiting, unspecified vomiting type documented in this encounter [facility] Diagnosis Chronic obstructive pulmonary disease with acute exacerbation ([facility]-HCC) [facility] Diagnosis Onset Date Resolution Status Admit Date Clear cell renal cell carcinoma acute November 25, 2 025 2:20pm Encounter for antineoplastic chemotherapy acute November 25 2:20pm Iron deficiency anemia acute Fe bruary 2024 2:20pm Hyponatremia resolved November 2:20pm Renal mass deleted November 25, 2024 2:20pm [facility] Work Phone: Evaluation note* Diagnosis Arthritis, multiple joint involvement- Primary Unspecified arthropathy, multiple sites Renal cell carcinoma of right kidney (CMS-HCC) Panlobular emphysema ([facility]-HCC) Other emphysema Benign hypertensive heart disease with heart failure ([facility]-HCC) Obesity, morbid ([facility]-HCC) Morbid obesity documented in this encounter [facility] Diagnosis Onset Date Resolution Status Admit Date Clear cell renal cell carcinoma acut e January 27, 2025 2:03pm Encounter for antineoplastic chemotherapy acute January 27, 2025 2:03pm Iron deficiency anemia acute Ap 2024 2:03pm Hyponatremia resolved January 27, 2025 2:03pm Renal mass deleted January 27 2:03pm [facility] Work Phone: Hospital Discharge instructions Additional Instructions Continue home oxygen as directed.[facility] Work Phone: InstructionsNot on filedocumented in this encounter [facility] this [facility] filedocumented in this encounter [facility] filedocumented in this encounter [facility] on filedocumented in this encounter [facility] Author Aries Chavez [facility] July 31, 2023 2:29pm Note Date/Time July 31, 2023 1 :59pm [facility] at [address] [address] Hem/Onc Follow Up Note - OP Signed Patient: Perla Ibarra MR# : [id number] : 1955 Acct:[id number] Age/Sex: 67 / F Type: REG RCR Copies to: Rogers Kim, DEIDRE SELF,REFERRAL ~ Date of Service: 07/31/2023 Time of Service: 13:59 - Assessment & Plan (1) Renal mass Plan: Right renal mass, 15*9*12 cm with extension into right renal vein and inferior vena cava.. Likely a neoplasm. Has seen Dr. Mathew in [place] for consideration of nephrectomy. No definitive retroperitoneal [...] start here, if not salazar is reasonable, [place]. f/u after. check ua and culture. offer her bactrim DS one tab bid x 10 days. get images uploaded to our system from [employer]. iv iron soon. cbc, cmp, iron studies [...] metoprolol, Xanax as needed. Primary patient of Rogers Trujillo nurse practitioner in [place]. Also follows with Dr. Cervantes and Dr. Quach of urology. She had a hospitalization in December 2022 and ultimately was life flighted to [facility] for a myocardial infarction and ischemic [...] greater than right. 07/31/[address] mathew last week. He was not eager for [...] for coordination of care (as documented) and sere-ng-ords counseling of patient and/or family. 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 Work Phone: Progress note Author Vannessaerna Knappmariannevalerie [facility] October 05, 2023 2:09pm Note Date/Time October 05, 2023 1: 55pm [facility] [place] [address] Hem/Onc Follow Up Note - OP Signed Patient: Perla Ibarra MR# : [id number] : 1955 Acct:[id number] Age/Sex: 68 / F Type: REG RCR [...] metoprolol, Xanax as needed. Primary patient of Rogers Kim nurse practitioner in [place]. Also follows with Dr. Cervantes and Dr. Quach of urology. She had a hospitalization in December 2022 and ultimately was life flighted to [facility] for a myocardial infarction and ischemic [...] greater than right. 07/31/[address] Mathew last week. He was not eager for [...] 10 point review of systems is negative. 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 Right renal mass, [id number] cm with extension into right renal vein and inferior vena cava.. Has seen Dr. Mathew in [place] for consideration of nephrectomy. Determined not a [...] for coordination of care (as documented) and [id number] counseling of patient and/or family. Dictated By: Vannessa Perales APRN DD/ 1354 Signed By: <Electronically signed by CHAD Perales> 10/05/23 1409 [facility] Work Phone: Progress note Author Aries Chavez [facility] March 29, 2024 10:13am Note Date/Time March 29, 2024 9:43 am [facility] [place] [address] Cancer Center Note Signed Patient: Perla Ibarra MR# : [id number] : 1955 Acct:[id number] Age/Sex: 68 / F Type: REG AMB [...] of 6 Cycle Day Next Admin -2 42 No Active Chemotherapy History of Present Illness HPI Assessment/Plan. Right renal Cancer, [id number] cm with extension into right renal vein and inferiorvena cava.. 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 Has seen Dr. Mathew in [place] for consideration of nephrectomy. Determined not a [...] and Xanax as needed. Primary patient of Rogers Kim nurse practitioner in [place]. Also follows with Dr. Cervantes and Dr. Quach of urology. She had a hospitalization in December 2022 and ultimately was life flighted to [facility] for a myocardial infarction and ischemic [...] 2 days ago. She presented to [facility] where she was hydrated and subsequently transferred to [facility]. --She specifically denies any anginal chest pain, but does note some dyspnea that started a few days after starting the axitinib. She notes that she was shaking all over but did not fall to the ground or lose consciousness therefore it was not felt to be a seizure. 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 -- At [facility] she was noted to have white [...] up to inpatient stay.She was hospitalized at [facility] from 10/19/2023-10/25/2023 for headache, abdominal pain, hyponatremia, [...] up with labs and imaging for review. [facility] Medical History Medical History Hyponatremia Chronic hypoxic respiratory failure 2 L Oxygen via NC at all times. 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 Myocardial infarct COPD (chronic obstructive pulmonary [...] by Aries Chavez II, DO> 03/29/24 1013 [facility] Work Phone: Summary Purpose Family History No [...] Documentation 6 wk f/u with scans at [facility] Renal Mass N28.89 Reason for Visit Cancer [...] deficiency anemia Hyponatremia Chief Complaint Review scans 13.2 4 Renal Mass N28.89 Reason for Visit Clear cell renal cayden l carcinoma Encounter for antineoplastic chemotherapy Iron deficiency anemia Hyponatremia Chief Complaint Review scans .13.2 4 15 wk f/u with scans Renal Mass N28.89 Reason for Visit Clear cell renal cayden l carcinoma Encounter for antineoplastic chemotherapy Iron deficiency anemia Hyponatremia Chief Complaint Review scans 13.2 4 15 wk f/u with scans Renal Mass N28.89 Positive covid test Reason for Visit Clear cell renal cayden l carcinoma Encounter for antineoplastic chemotherapy Iron deficiency anemia Hyponatremia Contact with and (suspected) exposure to covid-19 Chief Complaint Review scans 03.14.2 4 15 wk f/u with scans Positive covid test 6 Wk follow up Renal Mass N28.89 Reason for Visit COVID-19 Contact with and (suspected) exposure to covid-19 Clear cell renal cell carcinoma Encounter for antineoplastic chemotherapy Iron deficiency anemia Hyponatremia Chief Complaint Admit Date Follow Up October 01, 2024 9:15am 18 wk f/u October 28, 2024 1 2:55pm Renal Mass N28.89 October 28, 2024 1 2:56pm Reason for Visit Admit Date Clear cell renal cell carcinoma October 28, 2024 12:56pm Encounter for antineoplastic chemotherap y October 28, 2024 12:56pm Iron deficiency anemia October 28 12:56pm Hyponatremia October 28, 2024 1 2:56pm Renal mass October 28, 2024 1 2:56pm Chief Complaint Admit Date Follow Up October 01, 2024 9:15am 18 wk f/u October 28, 2024 1 2:55pm Follow Up 1 Month November 25, 2024 2:19pm Renal Mass N28.89 November 25, 2024 2:20pm Reason for Visit Admit Date Clear cell renal cell carcinoma November 25, 2024 2:20pm Encounter for antineoplastic chemotherap y November 25, 2024 2:20pm Iron deficiency anemia November 25 2:20pm Hyponatremia November 25, 2024 2:20pm Renal mass November 25, 2024 2:20pm Chief Complaint Admit Date Follow Up 1 Month November 25, 2024 2:19pm Follow Up 2 Months January 27, 2025 1:0 4pm Renal Mass N28.89 January 27, 2025 2:0 3pm Reason for Visit Admit Date Clear cell renal cell carcinoma January 272024 2:03pm Encounter for antineoplastic chemotherap y January 27, 2025 2:03pm Iron deficiency anemia January 27, 2025 2:03pm Hyponatremia January 27, 2025 2:0 3pm Renal mass January 27, 2025 2:0 3pm Additional Source Comments INFORMATION SOURCE (unrecogn ized section and content) DATE CREATED AUTHOR 02/10/2023 [facility] DATE CREATED AUTHOR AUTHOR'S ORGANIZ ATION 03/13/2023 [facility] DATE CREATED AUTHOR AUTHOR'S ORGANIZ ATION 12/02/[address] [facility] DATE CREATED AUTHOR AUTHOR'S ORGANIZ ATION 12/18/2024 [facility] DATE CREATED AUTHOR AUTHOR'S ORGANIZ ATION 01/28/[address] [facility] Care Teams (unrecognized sec [...] Provider Active Sta rt: October 19, 2023 Rogers Moon APRN Other Provider Active Start: October [...] 17, 2023 End: November 17, 2023 Aries J Adamowicz II, DO Attending Provider Active Start: November [...] Referral Self Referring Provider Active Start: J an2023 Team Status: Active Member Role Status Dates Aries Chavez II, Attending Provider Active TIMOTHY BarrettP Primary Care [...] Referring Provider Active Start: F ebruary 2023 Team Status: Inactive Member Role Status Dates TIMOTHY BarrettP Primary Care Provider Active S tart: May 10, 2024 End: May 10, 2024 Aries Chavez II, DO Active S tart: May 10, 2024 End: May 10, 2024 Rogers Moon APRN Attending Provider Acti ve Start: May 10, 2024 End: May 10, 2024 Team Status: Active Member Role Status Dates Aries Chavez II, DO Attending Provider Active Start: May 10, 2024 TIMOTHY BarrettP Primary Care Provider Active S tart: May 10, 2024 Referral Self Referring Provider Active Start: A chichiust 2023 Team Status: Inactive Member Role Status Dates Rogers Kim MANAGEMENT TECH Primary Care Provider Active S tart: June 04, 2024 End: June 04, 2024 Elayne James APRN Attending Provider Active Start: June 04, 2024 End: June 04, 2024 Team Status: Inactive Member Role Status Dates Rogers Kim MANAGEMENT TECH Primary Care Provider Active S tart: June 24, 2024 End: June 24, 2024 Aries Chavez II, DO Attending Provider Active Start: June 24, 2024 End: June 24, 2024 Team Status: Active Member Role Status Dates Aries Chavez II, Attending Provider Active Start: June 24, 2024 TIMOTHY BarrettP Primary Care Provider Active S tart: June 24, 2024 Referral Self Referring Provider Active Start: Tony barragan 2023 Team Status: Inactive Member Role Status Latrell Kim MANAGEMENT TECH Primary Care Provider Active S tart: October 01, 2024 End: October 01, 2024 Rogers Moon APRN Attending Provider Active Start: September End: October 01, 2024 Team Status: Inactive Member Role Status Dates TIMOTHY BarrettP Primary Care Provider Active S tart: October 28, 2024 End: October 28, 2024 Aries Chavez II, DO Attending Provider Active Start: October 28, 2024 End: October 28, 2024 Team Status: Active Member Role Status Dates Aries Chavez II, DO Attending Provider Active Start: October 28, 2024 Rogers Kim MANAGEMENT TECH Primary Care Provider Active S tart: October 28, 2024 Referral Self Referring Provider Active Start: Thomas alexander 2024 Hims Manager Relationship Specialty Start Date End Date Rogers Kim, [employer]-MANAGEMENT TECH [address] [place] [address] PCP - General Internal Medicine 02/09/23 Hims Manager Relationship Specialty Start Date End Date Rogers Kim [employer]MANAGEMENT TE[employer] [address] [place] [address] PCP - General Internal Medicine 02/09/23 Hims Manager Relationship Specialty Start Date End Date Rogers Kim [employer]MANAGEMENT TE[employer] [address] [place] [address] PCP - General Internal Medicine 02/09/23 Hims Manager Relationship Specialty Start Date End Date Toro Baron [employer]-[facility] [address] [place] [address] PCP - General Family Medicine 03/29/24 Hims Manager Relationship Specialty Start Date End Date Toro Baron APRN-[facility] [address] [place] [address] PCP - General Family Medicine 03/29/24 Team Status: Inactive Member Role Status Dates DEIDRE Barrett Primary Care Provider Active S tart: November 25, 2024 End: November 25, 2024 Aries Chavez II, DO Attending Provider Active Start: November 25, 2024 End: November 25, 2024 Team Status: Active Member Role Status Dates Aries Chavez II, DO Attending Provider Active Start: November 25, 2024 DEIDRE Barrett Primary Care Provider Active S tart: November 25, 2024 Referral Self Referring Provider Active Start: Kassy hernandez 2024 Hims Manager Relationship Specialty Start Date End Date Toro Baron, [employer] [address] [place] [address] PCP - General Family Medicine 03/29/24 Team Status: Inactive Member Role Status Dates DEIDRE Barrett Primary Care Provider Active S tart: January 27, 2025 End: January 27, 2025 Aries Chavez II, Attending Provider Active Start: January 27, 2025 End: January 27, 2025 Team Status: Active Member Role Status Dates Aries Chavez II, Attending Provider Active Start: January 27, 2025 DEIDRE Barrett Primary Care Provider Active S tart: January 27, 2025 Referral Self Referring Provider Active Start: A pril 2024 Goals (unrecognized section and content) Goals may [...] (unrecogniz ed section and content) Reason Comments Cough Pain in rib cage. Reason Comments Med Refill Reason Comments Nasal Congestion No covid Reason Onset Date Comments Med Refill 07/19/2024 Reason Onset Date Comments Med Refill 08/05/2024 Reason Comments Follow-up FOR RECORDS PERTAINING TO PATIENTS WHO ARE [...] BE BASED ON THE PRIMARY CLINICAL RECORDS. [facility]. provides no warranty or guarantee of the accuracy or completeness of information in this document.
[2025-03-20 20:05] VITALS: BP 151/94; PULSE 93; TEMP 36.8; O2SAT 97; BMI 33.4
--- NOTE | 2025-03-20 20:38 | ED.EXTPRO1 ---
HPI - Extremity Problem General Chief complaint: Extremity Problem, Nontraumatic Stated complaint: LEFT LEG ON FIRE AND SWOLLEN Time Seen by Provider: 03/20/25 20:38 Source: patient Mode of arrival: Wheelchair Limitations: no limitations History of Present Illness HPI Narrative: Patient is a 69-year-old female who presents to the emergency department complaining that her left lower extremity feels like it is on fire and swollen. She does note that both of her legs are swollen. She states that she was athletic when she was younger and occasionally has paresthesias. She denies any midline back tenderness. She denies any immune modulating agents. She denies any concurrent steroids. She denies any numbness or weakness in her extremities but rather has pain. Patient denies that she has a history of congestive heart failure. No IV drug use. She does not have any history of DVT or PE. Patient has not had any recent trauma to the leg. No history of cellulitis. No history of MRSA. Patient has not had any long car ride or airplane travel. No recent COVID. No recent surgery. No prolonged immobilization. Pain is moderate in severity. It feels like 5 or unknown what makes it worse. Nothing makes it better. Onset several days ago and getting worse. Related Data Home Medications ?Medication ?Instructions ?Recorded ?Confirmed aspirin 81 mg tablet,delayed 81 mg PO QDAY 04/04/23 03/20/25 release atorvastatin 20 mg tablet 20 mg PO .qhs 04/04/23 03/20/25 sacubitril 24 mg-valsartan 26 mg 1 tab PO BID 04/04/23 03/20/25 tablet (Entresto) spironolactone 25 mg tablet 25 mg PO .qhs 04/04/23 03/20/25 escitalopram oxalate 10 mg tablet 10 mg PO DAILY 03/20/25 03/20/25 levothyroxine 100 mcg tablet 100 mcg PO DAILY 03/20/25 03/20/25 metoprolol succinate 25 mg 12.5 mg PO DAILY 03/20/25 03/20/25 tablet,extended release 24 hr [id number] 5 mg-zeaxanth 1 cap PO DAILY 03/20/25 03/20/25 1 mg-bilberry 7.5 mg-herbal capsule ([employer] [facility] Formula) Previous Rx's ?Medication ?Instructions ?Recorded cephalexin 500 mg capsule 500 mg PO Q8H 7 days #21 caps 03/20/25 Allergies Allergy/AdvReac Type Severity Reaction Status Date / Time No Known Drug Allergies Allergy Verified 03/20/25 20:10 Review of Systems ROS Narrative 10 Systems were reviewed, and unless noted in the HPI, all other systems are reviewed, unremarkable, or noncontributory. PFSH PFS Social History Smoking status: Former smoker Little interest or pleasure in doing things: not at all Feeling down, depressed, or hopeless: not at all Exam Narrative Exam Narrative: Prior to examining the patient, I have washed with hospital approved and provided Antiseptic Hand Molder Inflated Ball and have also applied gloves.? Prior to touching the patient, I asked for consent to examine the patient.? General: Alert and oriented, well nourished, mild distress. Eye: PERRL, EOMI, normal conjunctiva. HENT: Normocephalic, normal hearing, moist oral mucosa, no scleral icterus Neck: Supple, non-tender, no carotid bruits, no JVD, no lymphadenopathy. Lungs: Clear to auscultation and percussion, non-labored respiration. Heart: Normal rate, regular rhythm, no murmur, gallop or edema. Musculoskeletal: Normal range of motion and strength, no tenderness or swelling. Skin: Skin is warm, dry and pink. Mild non pitting edema. It is painful to palpation and painful to examine. Neurologic: Awake, alert, and oriented X3, CN II-XII intact. Psychiatric: Cooperative, appropriate mood and affect.? Following the conclusion of the examination, I have washed my hands thoroughly after removing examination gloves. Constitutional Vital Signs, click to edit/add: Last Vital Signs Temp 98.3 F 03/20/25 20:05 Pulse 93 H 03/20/25 20:05 Resp 18 03/20/25 20:05 BP 151/94 H 03/20/25 20:05 Pulse Ox 97 03/20/25 20:05 O2 Del Method Nasal Cannula 03/20/25 20:05 O2 Flow Rate 2 03/20/25 20:05 Course Vital Signs Vital signs: Vital Signs Temperature 98.3 F 03/20/25 20:05 Pulse Rate 93 H 03/20/25 20:05 Respiratory Rate 18 03/20/25 20:05 Blood Pressure 151/94 H 03/20/25 20:05 Pulse Oximetry 97 03/20/25 20:05 Oxygen Delivery Method Nasal Cannula 03/20/25 20:05 Oxygen Delivery Flow Rate 2 03/20/25 20:05 Temperature 98.3 F 03/20/25 20:05 Pulse Rate 93 H 03/20/25 20:05 Respiratory Rate 18 03/20/25 20:05 Blood Pressure 151/94 H 03/20/25 20:05 Pulse Oximetry 97 03/20/25 20:05 Oxygen Delivery Method Nasal Cannula 03/20/25 20:05 Oxygen Delivery Flow Rate 2 03/20/25 20:05 MDM - Extremity (Nontraumatic) MDM Narrative Medical decision making narrative: In summary, the patient has a very broad differential. DVT was assessed on the bilateral lower extremities. There was no evidence of clots. The patient really has asymmetry in terms of her pain and on the left side feels that it is extraordinarily painful and on fire . I do not appreciate any redness but perceives only there is some mild warmth that is asymmetric between the 2 legs. Therefore, I am electing to empirically treat her for cellulitis and will use Keflex for that. I have asked her to elevate her legs. She does not have any evidence of an extraordinarily high BNP and I do not feel like it is necessary at this time to start the patient on diuretic therapy especially since she has had evidence of acute injury in the past and I will not be able to closely follow her. The patient would do much better elevating her legs and wearing compression stockings as often as she can and then follow-up with her physician. Differential Diagnosis Differential diagnosis: Likely gout, cellulitis, superficial thrombophlebitis, lower extremity edema and deep vein thrombosis of lower extremity Medical Records Attestation: I reviewed the patient's medical records. Lab Data Attestation: I reviewed the patient's lab results. Labs: Lab Results 03/20/25 Range/Units 21:03 WBC 9.5 (4.0-11.0) 10^3/uL RBC 4.06 L (4.20-5.40) 10^6/uL Hgb 11.6 L (12.0-16.0) g/dL Hct 35.3 L (36.0-48.0) % MCV 86.9 (81.0-99.0) fL MCH 28.6 (26.7-34.0) pg MCHC 32.9 (29.9-35.2) g/dL RDW 12.6 (11.0-15.0) % Plt Count 241 (150-450) 10^3/uL MPV 10.4 (9.5-13.5) fL Neut % (Auto) 75.6 H (43.0-75.0) % Lymph % (Auto) 13.4 L (20.5-60.0) % Emmons % (Auto) 7.3 (1.7-12.0) % Eos % (Auto) 2.2 (0.9-7.0) % Baso % (Auto) 1.3 (0.2-2.0) % Neut # (Auto) 7.2 H (1.4-6.5) 10^3/uL Lymph # (Auto) 1.3 (1.2-3.8) 10^3/uL Emmons # (Auto) 0.7 (0.3-0.8) 10^3/uL Eos # (Auto) 0.2 (0.0-0.7) 10^3/uL Baso # (Auto) 0.1 (0.0-0.1) 10^3/uL Abs Immat Gran (auto) 0.02 (0.00-0.03) 10^3/uL Imm/Tot Granulo (auto) 0.2 (0.0-0.5) % Sodium 134 L (136-145) mmol/L Potassium 4.4 (3.5-5.1) mmol/L Chloride 97 L (98-107) mmol/L Carbon Dioxide 30.0 (21.0-32.0) mmol/L Anion Gap 11.4 BUN 17.0 (7.0-18.0) mg/dL Creatinine 0.98 (0.55-1.02) mg/dL Est GFR ( Amer) >60 (>=60 mL/min/1.73m^2) Est GFR (Non-Af Amer) 56 L (>=60 mL/min/1.73m^2) BUN/Creatinine Ratio 17.3 Glucose 104 (74-106) mg/dL Calcium 9.6 (8.5-10.1) mg/dL NT-Pro-B Natriuret Pep 150.0 (<=900.0) pg/mL Imaging Data Venous US: Attestation: I have reviewed the pertinent imaging results. My impression: Bilateral LE US negative for DVT Discharge Plan Discharge Chief Complaint: Extremity Problem, Nontraumatic Clinical Impression: Paresthesia of both lower extremities Patient Disposition: Home, Self-Care Time of Disposition Decision: 22:43 Condition: Good Prescriptions / Home Meds: New cephalexin 500 mg capsule 500 mg PO Q8H 7 Days Qty: 21 0RF No Action aspirin 81 mg tablet,delayed release (DR/EC) 81 mg PO QDAY atorvastatin 20 mg tablet 20 mg PO .qhs spironolactone 25 mg tablet 25 mg PO .qhs Entresto 24-26 mg tablet 1 tab PO BID escitalopram oxalate 10 mg tablet 10 mg PO DAILY levothyroxine 100 mcg tablet 100 mcg PO DAILY metoprolol succinate 25 mg tablet extended release 24 hr 12.5 mg PO DAILY [employer] Formula 5-1-7.5 mg capsule 1 cap PO DAILY Print Language: Wolof Instructions: Paresthesia (ED) Additional Instructions: Thank you for trusting me with your care today. We are treating you for an early cellulitis or infection of the skin. Referrals: BENIGNO ROBERTO [Primary Care Provider, Unknown] - 1 week Discharge Date/Time: 03/20/25 22:50
[2025-03-20] MEDS: HYDROCODONE/ACET 5-325 MG TABLET 1 TAB PO (21:12)
[2025-03-20 21:13] LABS: Basophils Absolute Auto 0.1 10^3/uL (0.0-0.1); Basophils Percent Auto 1.3 % (0.2-2.0); Eosinophils Absolute Auto 0.2 10^3/uL (0.0-0.7); Eosinophils Percent Auto 2.2 % (0.9-7.0); Hematocrit 35.3 % (36.0-48.0); Hemoglobin 11.6 g/dL (12.0-16.0); Immature Granulocytes Abs Auto 0.02 10^3/uL (0.00-0.03); Immature Granulocytes Pct Auto 0.2 % (0.0-0.5); Lymphocytes Absolute Auto 1.3 10^3/uL (1.2-3.8); Lymphocytes Percent Auto 13.4 % (20.5-60.0); Mean Corpuscular HGB Conc 32.9 g/dL (29.9-35.2); Mean Corpuscular Hemoglobin 28.6 pg (26.7-34.0); Mean Corpuscular Volume 86.9 fL (81.0-99.0); Mean Platelet Volume 10.4 fL (9.5-13.5); Monocytes Absolute Auto 0.7 10^3/uL (0.3-0.8); Monocytes Percent Auto 7.3 % (1.7-12.0); Neutrophils Absolute Auto 7.2 10^3/uL (1.4-6.5); Neutrophils Percent Auto 75.6 % (43.0-75.0); Platelet Count 241 10^3/uL (150-450); Red Blood Count 4.06 10^6/uL (4.20-5.40); Red Cell Distribution Width 12.6 % (11.0-15.0); White Blood Count 9.5 10^3/uL (4.0-11.0)
[2025-03-20 21:28] LABS: Anion Gap 11.4; BUN Creatinine Ratio 17.3; Calcium 9.6 mg/dL (8.5-10.1); Chloride 97 mmol/L (98-107); Estimated GFR (African America >60 (>=60 mL/min/1.73m^2); Estimated GFR (Non-African Ame 56 (>=60 mL/min/1.73m^2); Glucose 104 mg/dL (74-106); Potassium 4.4 mmol/L (3.5-5.1); Sodium 134 mmol/L (136-145)
[2025-03-20] MEDS: CEPHALEXIN 500 MG CAPSULE PO (22:55)
== END 2025-03-20 22:50 | disposition home or self-care (01) ==
PROVIDERS: Emergency Provider Emergency Medicine; PCP Nurse Practitioner
DX: R20.2 Paresthesia of skin (principal); Z87.891 Personal history of nicotine dependence
CPT/HCPCS: 36415; 80048; 83880; 85025; 93970; 99284

== ENCOUNTER 2025-04-14 08:03 | Outpatient (OUT) | payer MEDICARE, OTHER, SELFPAY ==
[2025-04-14 08:45] LABS: Hematocrit 36.1 % (36.0-48.0); Hemoglobin 11.7 g/dL (12.0-16.0); Immature Granulocytes Abs Auto 0.02 10^3/uL (0.00-0.03); Immature Granulocytes Pct Auto 0.3 % (0.0-0.5); Lymphocytes Absolute Auto 2.2 10^3/uL (1.2-3.8); Mean Corpuscular HGB Conc 32.4 g/dL (29.9-35.2); Mean Corpuscular Hemoglobin 28.5 pg (26.7-34.0); Mean Corpuscular Volume 88.0 fL (81.0-99.0); Platelet Count 242 10^3/uL (150-450); Red Blood Count 4.10 10^6/uL (4.20-5.40); White Blood Count 7.9 10^3/uL (4.0-11.0)
[2025-04-14 10:34] LABS: Alanine Aminotransferase 14 U/L (14-59); Albumin Globulin Ratio 0.7; Albumin Level 3.2 g/dL (3.4-5.0); Alkaline Phosphatase 114 U/L (46-116); Anion Gap 9.8; Aspartate Amino Transferase 13 U/L (15-37); Blood Urea Nitrogen 14.0 mg/dL (7.0-18.0); Calcium 9.5 mg/dL (8.5-10.1); Carbon Dioxide 29.3 mmol/L (21.0-32.0); Chloride 98 mmol/L (98-107); Estimated GFR (African America >60 (>=60 mL/min/1.73m^2); Estimated GFR (Non-African Ame >60 (>=60 mL/min/1.73m^2); Globulin 4.4 g/dL; Glucose 103 mg/dL (74-106); Potassium 4.1 mmol/L (3.5-5.1); Sodium 133 mmol/L (136-145); Thyroid Stimulating Hormone 1.253 uIU/mL (0.358-3.740); Total Protein 7.6 g/dL (6.4-8.2)
== END 2025-04-14 08:04 | disposition home or self-care (01) ==
LOC: LAB 08:06
PROVIDERS: PCP Nurse Practitioner; Visit Provider Internal Medicine
DX: C64.1 Malignant neoplasm of right kidney, except renal pelvis (principal); Z79.899 Other long term (current) drug therapy
CPT/HCPCS: 36415; 80053; 82024; 84439; 84443; 85025

== ENCOUNTER 2025-07-14 13:43 | Outpatient (OUT) | payer MEDICARE, OTHER, SELFPAY ==
--- OUTSIDE RECORDS SUMMARY | 2025-07-14 14:01 | XMS_ITS | CCD ---
Author Organization [facility] Care Team Providers Care Webbing Inspector Name Role Phone [place]al Park Attending Unavailable [...] Unavailable DO Aries Chavez II [facility] Self, Referral Referring Provider Unavailable DO Aries Chavez II [facility]ending [facility] Self, Referral Referring Provider Unavailable DO Aries Chavez II Attending [facility] Self, Referral Referring Provider Unavailable [facility] Provider DO Aries Chavez II Attending Provider Self, Referral Referring Provider Unavailable Self, Referral Referring Provider Unavailable Self, Referral Referring Provider Unavailable Self, Referral Referring Provider Unavailable Self, Referral Referring Provider Unavailable Unavailable Primary Care Provider Unavailabl e Self, Referral Referring Provider Unavailable Ranjanowicz II, DO Aries Guzman Attending Provider [facility], [facility] Primary Care Provider [phone] Self, Referral Referring Provider Unavailable Adamowicz II, DO Aries Guzman Attending Provider [facility], [facility] Primary Care Provider [phone] Self, Referral Referring Provider Unavailable Adamowicz II, DO Aries Guzman Attending Provider [facility], [facility] Primary Care Provider [phone] Self, Referral Referring Provider Unavailable Ranjanowicz II, DO Aries Guzman Attending Provider [facility], [facility] Primary Care Provider Self, Referral Referring Provider Unavailable Lennyicz II, DO Aries Guzman Attending Provider [facility], [facility] Primary Care Provider [phone] Self, Referral Referring Provider Unavailable Aries Chavez DO Attending Provider [facility], [facility] Primary Care Provider Self, Referral Referring Provider Unavailable Daniel [facility] Primary Care Provider Toro Geller Primary Care Provid er Aries Chavez DO Attending Provider [phone] [facility] Primary Care Provider Self, Referral Referring Provider Unavailable Aries Chavez DO [facility] Primary Care Provider Self, Referral Referring Provider Unavailable Aries Chavez II Admitting Unavaila ble Aries Chavez II Attending Unavaila ble Self, Referral Referring Unavailable [facility] Primary Care Unavailable Toro Geller Primary Care Provid er TORO BARON Attending Unavailable TORO BARON Referring Unavailable TORO BARON Primary Care Unavailable TORO BARON Attending Unavailable TORO BARON Referring Unavailable TORO BARON Primary Care Unavailable RANJAN HONG Attending Unavailable AMMY BRIDGES Attending Unavailable PEDRO LUIS FRENCH Attending Unavailable Allergies Allergy Classification Reported Allergen(s) Allergy Type Date of Onset Reaction(s) Facility (8 sources) Erythromycin Drug Allergy 3 Diarrhea [facility] Repository (9 sources) Erythromycin; Translations: [ERYTHROMYCIN] Drug Allergy 3 Other (See Comments) [facility] (4 sources) pembrolizumab; Translations: [PEMBROLIZUMAB] Drug Allergy 5 Other (See Comments) [facility] (1 source) Erythromycin Drug Allergy 5 [facility] Repository (1 source) Latex; Translations: [LATEX] Propensity to adverse reactions to drug (disorder) 5 [facility] Repository Medications Current Medications Medication Drug Class(es) Dates Sig (Normalized) Sig (Original) albuterol 0.83 mg/ml inhalation solution (14 sources) beta2-Adrenergic Agonist Start: 01-30-2024 End: 08-05-2024 take 3 mL by inhalation every six hours as needed for wheezing albuterol (PROVENTIL,VENTOLIN ) 2.5 mg /3 mL (0.083 %) nebulizer solution Indications: Chronic obstructive pulmonary disease with acute exacerbation ([facility]) Inhale 3 mL (2.5 mg total) by nebulization every 6 (six) hours as needed for wheezing. 75 mL 6 08/05/2024 Active Start: 04-28-2023 End: 03-27-2025 take 2 puff(s) by mouth every four hours VENTOLIN HFA 90 mcg/actuation inhaler inhale 2 puffs by mouth and INTO THE LUNGS every 4 hours if needed for shortness of breath 04/28/2023 03/27/2025 Discontinued (Therapy completed) albuterol 0.833 mg/ml / ipratropium bromide 0.167 mg/ml inhalation solution (2 sources) Anticholinergic, beta2-Adrenergic Agonist Start: 11-15-2024 ipratropium-albuteroL (DUONEB) 0.5 mg-3 mg(2.5 mg base)/3 mL nebulizer 11/15/2024 Active Start: 11-15-2024 take 3 mL by inhalat ion four times daily ipratropium-albuteroL (DUONEB) 0.5 mg-3 [...] aspirin 81 mg delayed release oral tablet (18 sources) Platelet Aggregation Inhibitor, Nonsteroidal Anti-inflammatory Drug [...] Daily at bedtime June 21, 2023 12:00am cephalexin 500 mg oral capsule (1 source) Cephalosporin Antibacterial Start: 03-27-2025 End: 04-03-2025 take 1 capsule by mouth three times daily CEPHalexin (KEFLEX) 500 mg capsule Indications: Left leg cellulitis Take 1 capsule (500 mg total) by mouth 3 (three) times a day for 7 days. 21 capsule 03/27/2025 04/03/2025 Active docusate sodium 100 mg oral capsule (7 [...] tablet (20 sources) Histamine-2 Receptor Antagonist Start: 07-22-2024 take [...] mg oral tablet (20 sources) l-Thyroxine Start: 12-05-2024 levothyroxine (SYNTHROID, LEVOTHROID) 100 MCG tablet Take 1 tablet (100 mcg total) by mouth. 12/05/2024 Active Start: 06-24-2024 End: 10-01-2024 levothyroxine (SYNTHROID, LEVOTHROID) [...] tablet by mouth daily Start: 01-18-2024 End: 12-16-2024 take 1 tablet by mouth [...] tablet (20 sources) Serotonin-3 Receptor Antagonist Start: 10-18-2023 End: 03-29-2024 take 1 tablet by mouth [...] October 24, 2023 12:58pm polyethylene glycol 3350 [id number] mg powder for oral solution (17 sources) Osmotic Laxative Start: 10-24-2023 polyethylene glycol (MIRALAX) 17 gram packet Take 17 g by mouth in the morning. 10/24/2023 Active sacubitril 24 mg / valsartan 26 mg oral tablet (20 sources) Angiotensin 2 Receptor [place] Start: 06-21-2023 take 1 tablet by mouth twice daily Sacubitril-Valsart an (Entresto) 24-26 mg tablet Active 1 TAB PO Twice daily June 21, 2023 12:00am Start: 03-23-2023 ENTRESTO 24-26 mg tablet 03/23/2023 Active Start: 03-23-2023 take 1 tablet by chace th once daily at bedtime ENTRESTO 24-26 mg tablet take 1 tablet by mouth every morning and at bedtime 03/23/2023 Active sennosides, residential 8.6 mg oral tablet (6 sources) Start: 10-24-2023 senna (SENOKOT ) 8.6 mg tablet 10/24/2023 Active spironolactone 25 mg oral tablet [...] 7 days. 21 tablet 12/16/2024 12/23/2024 Active triamcinolone acetonide 0.005 mg/mg topical ointment (1 source) Corticosteroid Start: 03-27-2025 triamcinolone (KENALOG) 0.5 % ointment Indications: Left leg cellulitis Apply 1 Application topically in the morning and 1 Application before bedtime. 30 g 03/27/2025 Active Completed/Discontinued Medications Medication Drug Class(es) Dates [...] 01, 2024 10:27am Start: 05-10-2024 End: 10-01-2024 Jszsftpkcvp-Mqzpcjdyb-Hqrguc er (Trelegy Ellipta) 100-62.5-25 mcg blister with [...] Documented Da te Episodic/Chronic Acute myocardial infarction (8 sources) Non-ST elevation (NSTEMI) myocardial infarction; Translations: [...] Chronic Coronary atherosclerosis and other heart disease (9 sources) Acute coronary syndrome; Translations: [Acute ischemic heart disease, unspecified] Onset: 01-25-2023 02-06-2023 Chronic Deficiency and other anemia (16 sources) Iron deficiency anemia, unspecified; Translations: [Iron deficiency anemia, unspecified] 10-05-2023 Episodic Hypertension with complications and secondary hypertension (5 sources) Benign hypertensive heart disease; Translations: [Hypertensive heart disease with heart failure] Onset: 12-16-2024 12-16-2024 Chronic Immunizations and screening for infectious disease (2 sources) Contact with or exposure to other viral diseases; Translations: [Exposure to 2019 novel coronavirus] 06-04-2024 Episodic Maintenance chemotherapy; radiotherapy (20 sources) Patient encounter status; Translations: [Encounter for antineoplastic chemotherapy] 10-05-2023 Chronic Other aftercare (11 sources) Drug therapy finding; Translations: [Other terminal press operator (current) drug therapy] 10-20-2023 Episodic Other aftercare (4 sources) Other mcfp (current) drug therapy; Translations: [Long-term (current) use of other medications] 10-19-2023 Episodic Other diseases of kidney and ureters (12 sources) Renal mass; Translations: [Other specified disorders [...] measurement] 10-20-2023 Episodic Other nervous system disorders (17 sources) Pain due to neoplastic disease; Translations: [...] Chronic Other nutritional; endocrine; and metabolic disorders (3 sources) Morbid obesity; Translations: [Morbid (severe) obesity [...] shock; Translations: [CARDIOGENIC SHOCK] Onset: 02-02-2023 Episodic Skin and subcutaneous tissue infections (2 sources) Cellulitis of left lower limb; Translations: [Cellulitis of left lower limb] Onset: 03-27-2025 03-27-2025 Episodic Substance-related disorders (1 source) Nicotine dependence, cigarettes, uncomplicated; Translations: [NICOTINE DEPEND CIGARETTES UNCOMP] Onset: 02-02-2023 Chronic Tuberculosis (1 source) Personal history of tuberculosis; Translations: [PERSONAL HISTORY OF TUBERCULOSIS] Onset: 02-02-2023 Episodic Unclassified (1 source) OTHER ACIDOSIS; Translations: [OTHER ACIDOSIS] Onset: 02-02-2023 Unclassified (1 source) CONTACT W/AND (SUSP) EXPOS COVID-19; Translations: [CONTACT W/AND (SUSP) EXPOS COVID-19] Onset: 02-02-2023 Unclassified (1 source) ER f/u [place] Onset: 03-27-2025 Past or Other Problems Problem Classification Problem Date Documented Da te Episodic/Chronic Acute and unspecified renal failure (20 sources) Nephrotoxic acute renal failure; Translations: [Other acute kidney failure] Onset: 01-30-2024 10-20-2023 Episodic Administrative/social admission (20 sources) Advance directive discussed with patient; Translations: [Other specified counseling] Onset: 01-30-2024 10-23-2023 Episodic Deficiency and other anemia (20 sources) Iron deficiency anemia; Translations: [Iron deficiency anemia, unspecified] Onset: 01-30-2024 2023 Episodic Fluid and electrolyte disorders (20 sources) Hypo-osmolality and hyponatremia; Translations: [Hyponatremia] Onset: 02-02-2023 10-05-2023 Episodic Mood disorders (7 sources) Mood disorders Onset: 01-30-2024 Resolved: 03-27-2025 01-30-2024 Nausea and vomiting (20 sources) Nausea; Translations: [Intractable nausea and vomiting] Onset: 02-02-2023 10-19-2023 Episodic Other gastrointestinal disorders (17 sources) Constipation; Translations: [Constipation, unspecified] Onset: 01-30-2024 10-19-2023 Episodic Other lower respiratory disease (2 sources) Other forms of dyspnea; Translations: [Other forms of dyspnea] Onset: 04-23-2024 Episodic Other upper respiratory infections (2 sources) Acute upper respiratory infection, unspecified; Translations: [Acute recurrent frontal sinusitis] Onset: 02-02-2023 12-26-2023 Episodic Respiratory failure; insufficiency; arrest (adult) (9 sources) Acute respiratory failure with hypoxia; Translations: [Acute respiratory failure with hypercapnia] Onset: 01-25-2023 Resolved: 02-07-2023 02-07-2023 Episodic Unclassified (2 sources) Onset: 12-16-2024 Resolved: 03-27-2025 12-16-2024 Viral infection (9 sources) Other viral agents as the cause of diseases classified elsewhere; Translations: [COVID-19] Onset: 01-25-2023 06-04-2024 Episodic Results Test Name Value Interpretation Reference Range Facility Office Visiton 04-14-2025 Follow-up visit [id number] Perla Ibarra 1955 F Date Provider Department Center 04/14/2025 [id number] HONG [facility] Family History Problem Relation Age of Onset Tuberculosis Mother Heart attack Brother Heart failure Maternal Grandmother Heart attack Maternal Grandfather Family Status - Relation Status Age at Mother Father Sister Brother Maternal Grandmother Maternal Grandfather Level of Service:43452 ME OFFICE/OUTPATIENT ESTABLISHED MOD MDM 30 MIN Normal [facility] Office Visiton 11-04-2024 Follow-up visit [id number] Perla Ibarra Samara 1955 F Date Provider Department Center 11/04/2024 Luis Eduardo8-CHANNING BRIDGESMichelle [facility] Family History Problem Relation Age of Onset Tuberculosis Mother Heart attack Brother Heart failure Maternal Grandmother Heart attack Maternal Grandfather Family Status - Relation Status Age at Mother Brother Maternal Grandmother Maternal Grandfather Level of Service:77095 ME OFFICE/OUTPATIENT ESTABLISHED LOW MDM 20 MIN Normal [facility] Adrenocorticotropic Hormone PLon 10-01-[address] 28.6 pg/mL Normal 7.2-63.3 [facility] Comment on above: Result Comment: ACTH reference interval for samples collected between 7 and 10 AM. Performed at: [employer] [address] [id number] Mechanical Design Technician: Juan Hendricks PhD, Phone: [phone] PERFORMED BY: [place] [id number] PATHOLOGIST ACCOUNTS PAYABLE TECHNICIAN SHIRA GALLO M.D. Performed By: #### T 4F, TSH3, JER, CMP #### [address] #### ACTH #### [facility] , Adrenocorticotropic hormone (ACTH) measurementOrdered By: Aries Chavez on 10-01-2024 Adrenocorticotropic Hormone 28.6 pg/mL 7.2-63.3 [facility] Comment on above: ACTH reference inter wendy for samples collected between 7 and10 AM.Performed at: [employer] [address] [id number] Director: Juan Hendricks PhD, Phone: [phone] Alanine aminotransferase [En zymatic activity/volume] in Serum or PlasmaOrdered By: Aries Chavez on 10-01-2024 ALT [Catalytic activity/Vol] Alanine aminotransferase [Enzymatic activity/volume] in Serum or Plasma 7-52 [facility] Albumin [Mass/volume] in Ser um or Plasma by Bromocresol green (BCG) dye binding methoOrdered By: Aries Chavez on 10-01-2024 Albumin BCG dye [Mass/Vol] Albumin [Mass/volume] in Serum or Plasma by Bromocresol green (BCG) dye binding metho 3.5-5.7 [facility] Alkaline phosphatase [Enzyma tic activity/volume] in Serum or PlasmaOrdered By: Aries Chavez on 10-01-2024 ALP [Catalytic activity/Vol] Alkaline phosphatase [Enzymatic activity/volume] in Serum or Plasma 34-104 [facility] Aspartate aminotransferase [ Enzymatic activity/volume] in Serum or PlasmaOrdered By: Aries Chavez on 10-01-2024 AST [Catalytic activity/Vol] Aspartate aminotransferase [Enzymatic activity/volume] in Serum or Plasma 13-39 [facility] Basophils Auto (Bld) [#/Vol] Ordered By: Aries Chavez on 10-01-2024 Basophils (Bld) [#/Vol] Automated basophil count 0.0-0.2 [facility] Basophils/100 WBC Auto (Bld) Ordered By: Aries Chavez on 10-01-2024 Basophils/100 WBC (Bld) Automated basophil % . [facility] Bilirubin.total [Mass/volume ] in Serum or PlasmaOrdered By: Aries Chavez on 10-01-2024 Bilirubin [Mass/Vol] Bilirubin.total [Mass/volume] in Serum or Plasma 0.3-1.0 [facility] CBC W Auto Differential pane l (Bld)on 10-01-2024 Basophils (Bld) [#/Vol] 0.1 10*3/uL 0.0 - 0.2 10*3/uL [facility] Basophils/100 WBC Manual cnt (Syn fld) 2 % . [facility] Eosinophils (Bld) [#/Vol] 0.9 10*3/uL High 0.0 - 0.45 10*3/uL [facility] Eosinophils/100 WBC Manual cnt (Syn fld) 12.6 % . [facility] Erythrocyte distribution width (RBC) [Ratio] 13.2 % 11.9 - 15.3 % [facility] Hematocrit (Bld) [Volume fraction] 35.5 % 34.0 - 46.4 % [facility] Hemoglobin (Bld) [Mass/Vol] 11.7 g/dL Low 11.8 - 15.4 g/dL [facility] Interpretation and review of laboratory results Abnormal [facility] Lymphocytes (Bld) [#/Vol] 1.1 10*3/uL 1.00 - 4.8 10*3/uL [facility] Lymphocytes/100 WBC Manual cnt (Syn fld) 15.3 % . [facility] MCH (RBC) [Entitic mass] 28.9 pg 24.7 - 34.3 pg [facility] MCHC (RBC) [Mass/Vol] 32.8 g/dL 32.0 - 35.0 g/dL [facility] MCV (RBC) [Entitic vol] 88 fL 80 - 100 fL [facility] Monocytes (Bld) [#/Vol] 0.7 10*3/uL 0.0 - 0.8 10*3/uL [facility] Monocytes+Macrophages/1 00 WBC Manual cnt (Syn fld) 10.2 % . [facility] Neutrophils (Bld) [#/Vol] 4.4 10*3/uL 1.8 - 7.7 10*3/uL [facility] Neutrophils/100 WBC Manual cnt (Syn fld) 59.9 % . [facility] NRBC 0.1 /100{WBC} 0 - 0.5 /100{WBC} [facility] Platelet mean volume (Bld) [Entitic vol] 8.8 fL 6.3 - 10.7 fL [facility] Platelets (Bld) [#/Vol] 261 10*3/uL 150 - 450 10*3/uL [facility] RBC LM.HPF (Urine sed) [#/Area] 4.04 10*6/uL 3.60 - 5.00 10*6/uL [facility] WBC (Bld) [#/Vol] 7.3 10*3/uL 3.8 - 11.6 10*3/uL [facility] WBC LM.HPF (Urine sed) [#/Area] 7.3 10*3/uL 3.8 - 11.6 10*3/uL [facility] Calcium [Mass/volume] in Ser um or PlasmaOrdered By: Aries Chavez on 10-01-2024 Calcium [Mass/Vol] Calcium [Mass/volume ] in Serum or Plasma 8.6-10.3 [facility] Carbon dioxide, total [Moles /volume] in Serum or PlasmaOrdered By: Aries Chavez on 10-01-2024 CO2 [Moles/Vol] Carbon dioxide, tota l [Moles/volume] in Serum or Plasma 21.0-31.0 [facility] Chloride [Moles/volume] in S leena or PlasmaOrdered By: Aries Chavez on 10-01-2024 Chloride [Moles/Vol] Chloride [Moles/vol ume] in Serum or Plasma 98-107 [facility] Complete Blood Count Auto Di ffon 10-01-2024 Basophils (Bld) [#/Vol] 0.1 10*3/uL Normal 0.0-0.2 [facility] Comment on above: Result Comment: PERF ORMED BY: [place] [id number] PATHOLOGIST ACCOUNTS PAYABLE TECHNICIAN SHIRA GALLO M.D. Performed By: #### C BC, CMP #### [address] Basophils/100 WBC (Bld) 2.0 % Normal . T chavo [facility] Comment on above: Performed By: #### C BC, CMP #### [place] [address] [place] Eosinophils (Bld) [#/Vol] 0.9 10*3/uL High 0.0-0.45 [facility] Comment on above: Performed By: #### C BC, CMP #### [facility] [address] [place] [address] [place] Eosinophils/100 WBC (Bld) 12.6 % Normal . [facility] Comment on above: Performed By: #### C BC, CMP #### [address] Erythrocyte distribution width (RBC) [Ratio] 13.2 % Normal 11.9-15.3 [facility] Comment on above: Performed By: #### C BC, CMP #### [address] Hematocrit (Bld) [Volume fraction] 35.5 % Normal 34.0-46.4 [facility] Comment on above: Performed By: #### C BC, CMP #### [address] Hemoglobin (Bld) [Mass/Vol] 11.7 g/dL Low 11.8-15.4 [facility] Comment on above: Performed By: #### C BC, CMP #### [address] Lymphocytes (Bld) [#/Vol] 1.1 10*3/uL Normal 1.00-4.8 [facility] Comment on above: Performed By: #### C BC, CMP #### [address] Lymphocytes/100 WBC (Bld) 15.3 % Normal . [facility] Comment on above: Performed By: #### C BC, CMP #### [address] MCH (RBC) [Entitic mass] 28.9 pg Normal 24.7-34.3 [facility] Comment on above: Performed By: #### C BC, CMP #### [address] MCV (RBC) [Entitic vol] 88.0 fL Normal 80-100 [facility] Comment on above: Performed By: #### C BC, CMP #### [address] Mean Corpuscular HGB Conc 32.8 g/dL Normal 32.0-35.0 [facility] Comment on above: Performed By: #### C BC, CMP #### [address] Monocytes (Bld) [#/Vol] 0.7 10*3/uL Normal 0.0-0.8 [facility] Comment on above: Performed By: #### C BC, CMP #### [facility] [address] [place] [address] [place] Monocytes/100 WBC (Bld) 10.2 % Normal . T [facility] Comment on above: Performed By: #### C BC, CMP #### [facility] [address] [place] [address] [place] Neutrophils (Bld) [#/Vol] 4.4 10*3/uL Normal 1.8-7.7 [facility] Comment on above: Performed By: #### C BC, CMP #### [facility] [address] [place] [id number] [facility] Neutrophils/100 WBC (Bld) 59.9 % Normal . [facility] Comment on above: Performed By: #### C BC, CMP #### [facility] [address] NRBC% 0.1 /100{WBC} Normal 0-0.5 [facility] Comment on above: Performed By: #### C BC, CMP #### [facility] [address] [place] [address] [place] Platelet mean volume (Bld) [Entitic vol] 8.8 fL Normal 6.3-10.7 [facility] Comment on above: Performed By: #### C BC, CMP #### [facility] [address] [place] [id number] [place] Platelets (Bld) [#/Vol] 261 10*3/uL Normal 150-450 [facility] Comment on above: Performed By: #### C BC, CMP #### [facility] [address] [place] [id number] [place] RBC (Bld) [#/Vol] 4.04 10*6/uL Normal 3.60-5.00 [facility] Comment on above: Performed By: #### C BC, CMP #### [facility] [address] [place] [id number] [place] WBC (Bld) [#/Vol] 7.3 10*3/uL Normal 3.8-11.6 [facility] Comment on above: Performed By: #### C BC, CMP #### [address] Comprehensive Metabolic Pane malcom 10-01-2024 Albumin [Mass/Vol] 3.6 g/dL Normal 3.5-5.7 [facility] Comment on above: Performed By: #### T 4F, TSH3, JER, CMP #### [place] [address] [place] #### ACTH #### [facility] , Albumin/Globulin [Mass ratio] 1.0 {ratio} Normal [facility] Comment on above: Performed By: #### T 4F, TSH3, JER, CMP #### [place] [address] [place] #### ACTH #### [facility] , ALP [Catalytic activity/Vol] 78 U/L Normal 34-104 [facility] Comment on above: Performed By: #### T 4F, TSH3, JER, CMP #### [place] [address] [place] #### ACTH #### [facility] , ALT [Catalytic activity/Vol] 10 U/L Normal 7-52 [facility] Comment on above: Performed By: #### T 4F, TSH3, JER, CMP #### [place] [address] [place] #### ACTH #### [facility] , Anion gap [Moles/Vol] 8.7 mmol/L Normal 6.0-15.0 [facility] Comment on above: Performed By: #### T 4F, TSH3, JER, CMP #### [facility] [address] [place] [address] [place] #### ACTH #### [facility] , AST [Catalytic activity/Vol] 17 U/L Normal 13-39 [facility] Comment on above: Performed By: #### T 4F, TSH3, JER, CMP #### [facility] [address] [place] [address] [place] #### ACTH #### [facility] , Bilirubin [Mass/Vol] 0.5 mg/dL Normal 0.3-1.0 [facility] Comment on above: Performed By: #### T 4F, TSH3, JER, CMP #### [facility] [address] [place] [address] [place] #### ACTH #### [facility] , Calcium [Mass/Vol] 9.0 mg/dL Normal 8.6-10.3 [facility] Comment on above: Performed By: #### T 4F, TSH3, JER, CMP #### [facility] [address] [place] [address] [place] #### ACTH #### [facility] , Chloride [Moles/Vol] 98 mmol/L Normal 98-107 [facility] Comment on above: Performed By: #### T 4F, TSH3, JER, CMP #### [place] [address] [place] #### ACTH #### [facility] , CO2 [Moles/Vol] 28.4 mmol/L Normal 21.0-31.0 [facility] [facility] Comment on above: Performed By: #### T 4F, TSH3, JER, CMP #### [place] [address] [place] #### ACTH #### [facility] , Creatinine [Mass/Vol] 0.95 mg/dL Normal 0.60-1.20 [facility] Comment on above: Performed By: #### T 4F, TSH3, JER, CMP #### [facility] [address] [place] [address] [place] #### ACTH #### [facility] , Creatinine Clr Calc Pharmacy 61.44 Normal [facility] Comment on above: Performed By: #### T 4F, TSH3, JER, CMP #### [place] [address] [place] #### ACTH #### [facility] , GFR/1.73 sq M.predicted MDRD (S/P/Bld) [Vol rate/Area] mL/min/{1.73_m2} Normal [facility] Comment on above: Performed By: #### T 4F, TSH3, JER, CMP #### [place] [address] [place] #### ACTH #### [facility] , Globulin (S) [Mass/Vol] 3.5 g/dL Normal [facility] Comment on above: Performed By: #### T 4F, TSH3, JER, CMP #### [place] [address] [place] #### ACTH #### [facility] , Glucose [Mass/Vol] 92 mg/dL Normal 70-100 [facility] Comment on above: Result Comment: [facility] Glucose Reference Range is dependent on time and content of last meal. Glucose of more than 200 mg/dL in a nonstressed, ambulatory subject supports the diagnosis of Diabetes Mellitus. ADA recommended reference range Performed By: #### T 4F, TSH3, JER, CMP #### [place] [address] [place] #### ACTH #### [facility] , Potassium [Moles/Vol] 4.1 mmol/L Normal 3.5-5.1 [facility] Comment on above: Performed By: #### T 4F, TSH3, JER, CMP #### [place] [address] [place] #### ACTH #### [facility] , Protein [Mass/Vol] 7.1 g/dL Normal 6.4-8.9 [facility] Comment on above: Performed By: #### T 4F, TSH3, JER, CMP #### [place] [address] [place] #### ACTH #### [facility] , Sodium [Moles/Vol] 131 mmol/L Low 136-145 [facility] Comment on above: Performed By: #### T 4F, TSH3, JER, CMP #### [place] [address] [place] #### ACTH #### [facility] , Urea nitrogen [Mass/Vol] 18 mg/dL Normal 7-25 [facility] Comment on above: Performed By: #### T 4F, TSH3, JER, CMP #### [place] [address] [place] #### ACTH #### [facility] , Cortisolon 10-01-2024 Cortisol 12.0 ug/dL Normal [facility] Comment on above: Result Comment: Refe rence range: AM 6 - 24 ug/dl PM <10 ug/dl [facility] marketing information coordinator and method: [employer] DXI, POLYCLONAL ANTIBODY CORTISOL ASSAY. PERFORMED BY: [place] [id number] PATHOLOGIST ACCOUNTS PAYABLE TECHNICIAN SHIRA GALLO M.D. Performed By: #### T 4F, TSH3, JER, CMP #### [address] #### ACTH #### [facility] , Cortisol [Mass/volume] in Se rum or PlasmaOrdered By: Aries Chavez on 10-01-2024 Cortisol [Mass/Vol] Random cortisol measurement [facility] Comment on above: [facility] marketing information coordinator and method:[employer] DXI, POLYCLONAL ANTIBODY CORTISOL ASSAY.Reference range: AM 6 - 24 ug/dl PM <10 ug/dl Creatinine [Mass/volume] in Serum or PlasmaOrdered By: Aries Chavez on 10-01-2024 Creatinine [Mass/Vol] Creatinine [Mass/v olume] in Serum or Plasma 0.60-1.20 [facility] Eosinophils Auto (Bld) [#/Vo l]Ordered By: Aries Chavez on 10-01-2024 Eosinophils (Bld) [#/Vol] Automated eosinophil count High 0.0-0.45 [facility] Eosinophils/100 WBC Auto (Bl d)Ordered By: Aries Chavez on 10-01-2024 Eosinophils/100 WBC (Bld) Automated eosinophil % . [facility] Erythrocyte distribution wid th Auto (RBC) [Ratio]Ordered By: Aries Chavez on 10-01-2024 Erythrocyte distribution width (RBC) [Ratio] Erythrocyte distribution width [Ratio] by Automated count 11.9-15.3 [facility] Free T4 (Free Thyroxine)on Free T4 [Mass/Vol] 0.45 ng/dL Low 0.61-1.12 [facility] Comment on above: Performed By: #### T 4F, TSH3, JER, CMP #### [address] #### ACTH #### [facility] , Globulin Calc (S) [Mass/Vol] Ordered By: Aries Chavez on 10-01-2024 Globulin (S) [Mass/Vol] Serum globulin m easurement by calculation (mass/volume) [facility] Glucose [Mass/volume] in Ser um or PlasmaOrdered By: Aries Chavez on 10-01-2024 Glucose [Mass/Vol] Glucose [Mass/volume ] in Serum or Plasma 70-100 [facility] Comment on above: ADA recommended refe rence rangeRandom Glucose Reference Range is dependent on time and content of last meal. Glucose of more than 200 mg/dL in a nonstressed, ambulatory subject supports the diagnosis of Diabetes Mellitus. Hematocrit Auto (Bld) [Volum e fraction]Ordered By: Aries Chavez on 10-01-2024 Hematocrit (Bld) [Volume fraction] Hematocrit [Volume Fraction] of Blood by Automated count 34.0-46.4 [facility] Hemoglobin [Mass/volume] in BloodOrdered By: Aries Chavez on 10-01-2024 Hemoglobin (Bld) [Mass/Vol] Hemoglobin [Mass/volume] in Blood Low 11.8-15.4 [facility] Leukocytes [#/volume] correc gabriel for nucleated erythrocytes in Blood by Automated counOrdered By: Aries Chavez on 10-01-2024 WBC corrected for nucl RBC Auto (Bld) [#/Vol] Leukocytes [#/volume] corrected for nucleated erythrocytes in Blood by Automated coun 3.8-11.6 [facility] Lymphocytes Auto (Bld) [#/Vo l]Ordered By: Aries Chavez on 10-01-2024 Lymphocytes (Bld) [#/Vol] Lymphocytes [#/volume] in Blood by Automated count 1.00-4.8 [facility] Lymphocytes/100 WBC Auto (Bl d)Ordered By: Aries Chavez on 10-01-2024 Lymphocytes/100 WBC (Bld) Lymphocytes/100 leukocytes in Blood by Automated count . [facility] MCH Auto (RBC) [Entitic mass ]Ordered By: Aries Chavez on 10-01-2024 MCH (RBC) [Entitic mass] MCH [Entitic mass] by Automated count 24.7-34.3 [facility] MCHC Auto (RBC) [Mass/Vol]Or dered By: Aries Chavez on 10-01-2024 MCHC (RBC) [Mass/Vol] MCHC [Mass/volume] by Automated count 32.0-35.0 [facility] MCV Auto (RBC) [Entitic vol] Ordered By: Aries Chavez on 10-01-2024 MCV (RBC) [Entitic vol] MCV [Entitic vol ume] by Automated count 80-100 [facility] Monocytes Auto (Bld) [#/Vol] Ordered By: Aries Chavez on 10-01-2024 Monocytes (Bld) [#/Vol] Automated blood monocyte count 0.0-0.8 [facility] Monocytes/100 WBC Auto (Bld) Ordered By: Aries Chavez on 10-01-2024 Monocytes/100 WBC (Bld) Automated monocyte % . [facility] Neutrophils Auto (Bld) [#/Vo l]Ordered By: Aries Chavez on 10-01-2024 Neutrophils (Bld) [#/Vol] Neutrophils [#/volume] in Blood by Automated count 1.8-7.7 [facility] Neutrophils/100 WBC Auto (Bl d)Ordered By: Aries Chavez on 10-01-2024 Neutrophils/100 WBC (Bld) Automated neutrophil % . [facility] No Panel InformationOrdered By: Aries Chavez on 10-01-2024 Estimated GFR (CKD-EPI) > 60.0 mL/Min [facility] Creatinine Clearance (Chem 61.44 [facility] Nucleated erythrocytes [Pres ence] in Blood by Automated countOrdered By: Aries Chavez on 10-01-2024 Nucleated RBC Auto Ql (Bld) Nucleated erythrocytes [Presence] in Blood by Automated count 0-0.5 [facility] Platelet mean volume Auto (B ld) [Entitic vol]Ordered By: Aries Chavez on 10-01-2024 Platelet mean volume (Bld) [Entitic vol] Platelet mean volume [Entitic volume] in Blood by Automated count 6.3-10.7 [facility] Platelets Auto (Bld) [#/Vol] Ordered By: Aries Chavez on 10-01-2024 Platelets (Bld) [#/Vol] Platelets [#/vol ume] in Blood by Automated count 150-450 [facility] Potassium [Moles/volume] in Serum or PlasmaOrdered By: Aries Chavez on 10-01-2024 Potassium [Moles/Vol] Potassium [Moles/v olume] in Serum or Plasma 3.5-5.1 [facility] Protein [Mass/volume] in Ser um or PlasmaOrdered By: Aries Chavez on 10-01-2024 Protein [Mass/Vol] Protein [Mass/volume ] in Serum or Plasma 6.4-8.9 [facility] RBC Auto (Bld) [#/Vol]Ordere d By: Aries Chavez on 10-01-2024 RBC (Bld) [#/Vol] Erythrocytes [#/volu me] in Blood by Automated count 3.60-5.00 [facility] Serum or plasma albumin/glob ulin mass ratioOrdered By: Aries Chavez on 10-01-2024 Albumin/Globulin [Mass ratio] Serum or plasma albumin/globulin mass ratio [facility] Serum or plasma anion gap de terminationOrdered By: Aries Chavez on 10-01-2024 Anion gap [Moles/Vol] Serum or plasma an ion gap determination 6.0-15.0 [facility] Sodium [Moles/volume] in Ser um or PlasmaOrdered By: Aries Chavez on 10-01-2024 Sodium [Moles/Vol] Sodium [Moles/volume ] in Serum or Plasma Low 136-145 [facility] Thyroid Stimulating Hormoneo n 10-01-2024 TSH Qn 45.50 m[IU]/L High 0.45-5.33 [facility] Comment on above: Performed By: #### T 4F, TSH3, JER, CMP #### [facility] [address] #### ACTH #### [facility] , Thyrotropin [Units/volume] i n Serum or PlasmaOrdered By: Aries Chavez on 10-01-2024 TSH Qn Thyrotropin [Units/v olume] in Serum or Plasma High 0.45-5.33 [facility] Thyroxine (T4) free [Mass/vo lume] in Serum or PlasmaOrdered By: Aries Chavez on 10-01-2024 Free T4 [Mass/Vol] Thyroxine (T4) free [Mass/volume] in Serum or Plasma Low 0.61-1.12 [facility] Urea nitrogen [Mass/volume] in Serum or PlasmaOrdered By: Aries Chavez on 10-01-2024 Urea nitrogen [Mass/Vol] Urea nitrogen [Mass/volume] in Serum or Plasma 7-25 [facility] WBC Auto (Bld) [#/Vol]Ordere d By: Aries Chavez on 10-01-2024 WBC (Bld) [#/Vol] Leukocytes [#/volume ] in Blood by Automated count 3.8-11.6 [facility] ADRENOCORTICOTROPIC HORMONE PLon 06-19-[address] 51.6 pg/mL 7.2 - 63.3 pg/mL [facility] Comment on above: ACTH reference inter wendy for samples collected between 7 and 10 AM. Performed at: - [facility] [id number] Mechanical Design Technician: Juan Hendricks PhD, Phone: [phone] [facility] Adrenocorticotropic Hormone PLon 06-18-[address] 51.6 pg/mL Normal 7.2-63.3 [facility] Comment on above: Result Comment: ACTH reference interval for samples collected between 7 and 10 AM. Performed at: [facility] [id number] Mechanical Design Technician: Juan Hendricks PhD, Phone: [phone] PERFORMED BY: [place] [id number] PATHOLOGIST ACCOUNTS PAYABLE TECHNICIAN SETFANO HOLT M.D. Performed By: #### C BC, CMP #### [address] Alanine aminotransferase [En zymatic activity/volume] in Serum or PlasmaOrdered By: Aries Chavez on 06-18-2024 ALT [Catalytic activity/Vol] 11 U/L Normal 7-52 [facility] Comment on above: Performed By: #### T 4F, JER, CMP, TSH3 #### [address] #### ACTH #### [facility] , Albumin [Mass/volume] in Ser um or Plasma by Bromocresol green (BCG) dye binding methoOrdered By: Aries Chavez on 06-18-2024 Albumin BCG dye [Mass/Vol] 3.7 g/dL 3.5-5.7 [facility] Alkaline phosphatase [Enzyma tic activity/volume] in Serum or PlasmaOrdered By: Aries Chavez on 06-18-2024 ALP [Catalytic activity/Vol] 76 U/L Normal 34-104 [facility] Comment on above: Performed By: #### T 4F, JER, CMP, TSH3 #### [place] [address] [place] #### ACTH #### [facility] , Aspartate aminotransferase [ Enzymatic activity/volume] in Serum or PlasmaOrdered By: Aries Chavez on 06-18-2024 AST [Catalytic activity/Vol] 19 U/L Normal 13-39 [facility] Comment on above: Performed By: #### T 4F, JER, CMP, TSH3 #### [facility] [address] [place] [address] [place] #### ACTH #### [facility] , Automated basophil %Ordered By: Aries Chavez on 06-18-2024 Basophils/100 WBC (Bld) 1.4 % Normal . [facility] Comment on above: Performed By: #### T 4F, TSH3, JER, CMP #### [facility] [address] [place] [address] [place] #### ACTH #### [facility] , Automated basophil countOrde red By: Aries Chavez on 06-18-2024 Basophils (Bld) [#/Vol] 0.1 10*3/uL Normal 0.0-0.2 [facility] Comment on above: Result Comment: PERF ORMED BY: [place] [id number] PATHOLOGIST ACCOUNTS PAYABLE TECHNICIAN STEFANO HOLT M.D. Performed By: #### T 4F, TSH3, JER, CMP #### [place] [address] [place] #### ACTH #### [facility] , Automated blood monocyte cou ntOrdered By: Aries Chavez on 06-18-2024 Monocytes (Bld) [#/Vol] 0.8 10*3/uL Normal 0.0-0.8 [facility] Comment on above: Performed By: #### T 4F, TSH3, JER, CMP #### [facility] [address] [place] [address] [place] #### ACTH #### [facility] , Automated eosinophil %Ordere d By: Aries Chavez on 06-18-2024 Eosinophils/100 WBC (Bld) 6.1 % Normal . [facility] Comment on above: Performed By: #### T 4F, TSH3, JER, CMP #### [facility] [address] [place] [address] [place] #### ACTH #### [facility] , Automated eosinophil countOr dered By: Aries Chavez on 06-18-2024 Eosinophils (Bld) [#/Vol] 0.5 10*3/uL High 0.0-0.45 [facility] Comment on above: Performed By: #### T 4F, TSH3, JER, CMP #### [facility] [address] [place] [address] [place] #### ACTH #### [facility] , Automated monocyte %Ordered By: Aries Chavez on 06-18-2024 Monocytes/100 WBC (Bld) 9.1 % Normal . [facility] Comment on above: Performed By: #### T 4F, TSH3, JER, CMP #### [place] [address] [place] #### ACTH #### [facility] , Automated neutrophil %Ordere d By: Aries Chavez on 06-18-2024 Neutrophils/100 WBC (Bld) 70.9 % Normal . [facility] Comment on above: Performed By: #### T 4F, TSH3, JER, CMP #### [place] [address] [place] #### ACTH #### [facility] , Bilirubin.total [Mass/volume ] in Serum or PlasmaOrdered By: Aries Chavez on 06-18-2024 Bilirubin [Mass/Vol] 0.6 mg/dL Normal 0.3-1.0 [facility] Comment on above: Performed By: #### T 4F, JER, CMP, TSH3 #### [facility] [address] [place] [address] [place] #### ACTH #### [facility] , CBC W Auto Differential pane l (Bld)on 06-18-2024 Basophils (Bld) [#/Vol] 0.1 10*3/uL 0.0 - 0.2 10*3/uL [facility] Basophils/100 WBC Manual cnt (Syn fld) 1.4 % . [facility] Eosinophils (Bld) [#/Vol] 0.5 10*3/uL High 0.0 - 0.45 10*3/uL [facility] Eosinophils/100 WBC Manual cnt (Syn fld) 6.1 % . [facility] Erythrocyte distribution width (RBC) [Ratio] 13.3 % 11.9 - 15.3 % [facility] Hematocrit (Bld) [Volume fraction] 36.5 % 34.0 - 46.4 % [facility] Hemoglobin (Bld) [Mass/Vol] 12.2 g/dL 11.8 - 15.4 g/dL [facility] Interpretation and review of laboratory results Abnormal [facility] Lymphocytes (Bld) [#/Vol] 1.1 10*3/uL 1.00 - 4.8 10*3/uL [facility] Lymphocytes/100 WBC Manual cnt (Syn fld) 12.5 % . [facility] MCH (RBC) [Entitic mass] 29.6 pg 24.7 - 34.3 pg [facility] MCHC (RBC) [Mass/Vol] 33.4 g/dL 32.0 - 35.0 g/dL [facility] MCV (RBC) [Entitic vol] 88.8 fL 80 - 100 fL [facility] Monocytes (Bld) [#/Vol] 0.8 10*3/uL 0.0 - 0.8 10*3/uL [facility] Monocytes+Macrophages/1 00 WBC Manual cnt (Syn fld) 9.1 % . [facility] Neutrophils (Bld) [#/Vol] 6.0 10*3/uL 1.8 - 7.7 10*3/uL [facility] Neutrophils/100 WBC Manual cnt (Syn fld) 70.9 % . [facility] NRBC 0.0 /100{WBC} 0 - 0.5 /100{WBC} [facility] Platelet mean volume (Bld) [Entitic vol] 7.1 fL 6.3 - 10.7 fL [facility] Platelets (Bld) [#/Vol] 342 10*3/uL 150 - 450 10*3/uL [facility] RBC LM.HPF (Urine sed) [#/Area] 4.11 /[HPF] 3.60 - 5.00 [facility] WBC (Bld) [#/Vol] 8.4 10*3/uL 3.8 - 11.6 10*3/uL [facility] WBC LM.HPF (Urine sed) [#/Area] 8.4 10*3/uL 3.8 - 11.6 10*3/uL [facility] Calcium [Mass/volume] in Ser um or PlasmaOrdered By: Aries Chavez on 06-18-2024 Calcium [Mass/Vol] 9.1 mg/dL Normal 8.6-10.3 [facility] Comment on above: Performed By: #### T 4F, JER, CMP, TSH3 #### [facility] [address] [place] [address] [place] #### ACTH #### [facility] , Carbon dioxide, total [Moles /volume] in Serum or PlasmaOrdered By: Aries Chavez on 06-18-2024 CO2 [Moles/Vol] 29.4 mmol/L Normal 21.0-31.0 [facility] Comment on above: Performed By: #### T 4F, JER, CMP, TSH3 #### [facility] [address] [place] [address] [place] #### ACTH #### [facility] , Chloride [Moles/volume] in S leena or PlasmaOrdered By: Aries Chavez on 06-18-2024 Chloride [Moles/Vol] 94 mmol/L Low 98-107 [facility] Comment on above: Performed By: #### T 4F, JER, CMP, TSH3 #### [facility] [address] [place] [address] [place] #### ACTH #### [facility] , Complete Blood Count Auto Di ffon 06-18-2024 Mean Corpuscular HGB Conc 33.4 g/dL Normal 32.0-35.0 [facility] Comment on above: Performed By: #### T 4F, TSH3, JER, CMP #### [facility] [address] [place] [address] [place] #### ACTH #### [facility] , NRBC% 0.0 /100{WBC} Normal 0-0.5 [facility] Comment on above: Performed By: #### T 4F, TSH3, JER, CMP #### [place] [address] [place] #### ACTH #### [facility] , Comprehensive Metabolic Pane malcom 06-18-2024 Albumin [Mass/Vol] 3.7 g/dL Normal 3.5-5.7 [facility] Comment on above: Performed By: #### T 4F, JER, CMP, TSH3 #### [place] [address] [place] #### ACTH #### [facility] , Creatinine Clr Calc Pharmacy 67.15 Normal [facility] Comment on above: Performed By: #### T 4F, JER, CMP, TSH3 #### [address] #### ACTH #### [facility] , GFR/1.73 sq M.predicted MDRD (S/P/Bld) [Vol rate/Area] mL/min/{1.73_m2} Normal [facility] Comment on above: Performed By: #### T 4F, JER, CMP, TSH3 #### [place] [address] [place] #### ACTH #### [facility] , Cortisolon 06-18-2024 Cortisol 18.8 ug/dL Normal [facility] Comment on above: Result Comment: Refe rence range: AM 6 - 24 ug/dl PM <10 ug/dl [facility] marketing information coordinator and method: [employer], POLYCLONAL ANTIBODY CORTISOL ASSAY. PERFORMED BY: [place] [id number] PATHOLOGIST ACCOUNTS PAYABLE TECHNICIAN STEFANO HOLT M.D. Performed By: #### C BC, CMP #### [place] [address] [place] Creatinine [Mass/volume] in Serum or PlasmaOrdered By: Aries Chavez on 06-18-2024 Creatinine [Mass/Vol] 0.83 mg/dL Normal 0.60-1.20 [facility] Comment on above: Performed By: #### T 4F, JER, CMP, TSH3 #### [facility] [address] [place] [address] [place] #### ACTH #### [facility] , Erythrocyte distribution wid th [Ratio] by Automated countOrdered By: Aries Chavez on 06-18-2024 Erythrocyte distribution width (RBC) [Ratio] 13.3 % Normal 11.9-15.3 [facility] Comment on above: Performed By: #### T 4F, TSH3, JER, CMP #### [facility] [address] [place] [address] #### ACTH #### [facility] , Erythrocytes [#/volume] in B lood by Automated countOrdered By: Aries Chavez on 06-18-2024 RBC (Bld) [#/Vol] 4.11 10*6/uL Normal 3.60-5.00 [facility] Comment on above: Performed By: #### T 4F, TSH3, JER, CMP #### [facility] [address] [place] [address] #### ACTH #### [facility] , Glucose [Mass/volume] in Ser um or PlasmaOrdered By: Aries Chavez on 06-18-2024 Glucose [Mass/Vol] 93 mg/dL Normal 70-100 [facility] Comment on above: ADA recommended refe rence rangeRandom Glucose Reference Range is dependent on time and content of last meal. Glucose of more than 200 mg/dL in a nonstressed, ambulatory subject supports the diagnosis of Diabetes Mellitus. Result Comment: [place] [facility] Glucose Reference Range is dependent on time and content of last meal. Glucose of more than 200 mg/dL in a nonstressed, ambulatory subject supports the diagnosis of Diabetes Mellitus. ADA recommended reference range Performed By: #### T 4F, JER, CMP, TSH3 #### [facility] [address] [place] [address] [place] #### ACTH #### [facility] , Hematocrit [Volume Fraction] of Blood by Automated countOrdered By: Aries Chavez on 06-18-2024 Hematocrit (Bld) [Volume fraction] 36.5 % Normal 34.0-46.4 [facility] Comment on above: Performed By: #### T 4F, TSH3, JER, CMP #### [place] [address] [place] #### ACTH #### [facility] , Hemoglobin [Mass/volume] in BloodOrdered By: Aries Chavez on 06-18-2024 Hemoglobin (Bld) [Mass/Vol] 12.2 g/dL Normal 11.8-15.4 [facility] Comment on above: Performed By: #### T 4F, TSH3, JER, CMP #### [place] [address] [place] #### ACTH #### [facility] , Leukocytes [#/volume] correc gabriel for nucleated erythrocytes in Blood by Automated counOrdered By: Aries Chavez on 06-18-2024 WBC corrected for nucl RBC Auto (Bld) [#/Vol] 8.4 10*3/uL 3.8-11.6 [facility] Leukocytes [#/volume] in Blo od by Automated countOrdered By: Aries Chavez on 06-18-2024 WBC (Bld) [#/Vol] 8.4 10*3/uL Normal 3.8-11.6 [facility] Comment on above: Performed By: #### T 4F, TSH3, JER, CMP #### [facility] [address] [place] [address] [place] #### ACTH #### [facility] , Lymphocytes [#/volume] in Bl ood by Automated countOrdered By: Aries Chavez on 09-17-2024 Lymphocytes (Bld) [#/Vol] 1.1 10*3/uL Normal 1.00-4.8 [facility] Comment on above: Performed By: #### T 4F, TSH3, JER, CMP #### [facility] [address] [place] [address] [place] #### ACTH #### [facility] , Lymphocytes/100 leukocytes i n Blood by Automated countOrdered By: Aries Chavez on 06-18-2024 Lymphocytes/100 WBC (Bld) 12.5 % Normal . [facility] Comment on above: Performed By: #### T 4F, TSH3, JER, CMP #### [place] [address] [place] #### ACTH #### [facility] , MCH [Entitic mass] by Automa gabriel countOrdered By: Aries Chavez on 06-18-2024 MCH (RBC) [Entitic mass] 29.6 pg Normal 24.7-34.3 [facility] Comment on above: Performed By: #### T 4F, TSH3, JER, CMP #### [place] [address] [place] #### ACTH #### [facility] , MCHC Auto (RBC) [Mass/Vol]Or dered By: Aries Chavez on 06-18-2024 MCHC (RBC) [Mass/Vol] 33.4 g/dL 32.0-35.0 [facility] MCV [Entitic volume] by Auto mated countOrdered By: Aries Chavez on 06-18-2024 MCV (RBC) [Entitic vol] 88.8 fL Normal 80-100 [facility] Comment on above: Performed By: #### T 4F, TSH3, JER, CMP #### [place] [address] [place] #### ACTH #### [facility] , Neutrophils [#/volume] in Bl ood by Automated countOrdered By: Aries Chavez on 06-18-2024 Neutrophils (Bld) [#/Vol] 6.0 10*3/uL Normal 1.8-7.7 [facility] Comment on above: Performed By: #### T 4F, TSH3, JER, CMP #### [facility] [address] [place] [address] [place] #### ACTH #### [facility] , No Panel InformationOrdered By: Aries Chavez on 06-18-2024 Adrenocorticotropic Hormone 51.6 pg/mL 7.2-63.3 [facility] Comment on above: ACTH reference inter wendy for samples collected between 7 and10 AM.Performed at: [facility] [place] [id number] Director: Juan Hendricks PhD, Phone: [phone] Estimated GFR (CKD-EPI) > 60.0 mL/Min [facility] Creatinine Clearance (Chem 67.15 [facility] Nucleated erythrocytes [Pres ence] in Blood by Automated countOrdered By: Aries Chavez on 06-18-2024 Nucleated RBC Auto Ql (Bld) 0.0 /100{WBC} 0-0.5 [facility] Platelet mean volume [Entiti c volume] in Blood by Automated countOrdered By: Aries Chavez on 06-18-2024 Platelet mean volume (Bld) [Entitic vol] 7.1 fL Normal 6.3-10.7 [facility] Comment on above: Performed By: #### T 4F, TSH3, JER, CMP #### [facility] [address] [place] [address] [place] #### ACTH #### [facility] , Platelets [#/volume] in Bloo d by Automated countOrdered By: Aries Chavez on 06-18-2024 Platelets (Bld) [#/Vol] 342 10*3/uL Normal 150-450 [facility] Comment on above: Performed By: #### T 4F, TSH3, JER, CMP #### [facility] [address] [place] [address] [place] #### ACTH #### [facility] , Potassium [Moles/volume] in Serum or PlasmaOrdered By: Aries Chavez on 06-18-2024 Potassium [Moles/Vol] 5.0 mmol/L Normal 3.5-5.1 [facility] Comment on above: Performed By: #### T 4F, JER, CMP, TSH3 #### [facility] [address] [place] [address] [place] #### ACTH #### [facility] , Protein [Mass/volume] in Ser um or PlasmaOrdered By: Aries Chavez on 06-18-2024 Protein [Mass/Vol] 6.9 g/dL Normal 6.4-8.9 [facility] Comment on above: Performed By: #### T 4F, JER, CMP, TSH3 #### [place] [address] [place] #### ACTH #### [facility] , Random cortisol measurementO rdered By: Aries Chavez on 06-18-2024 Cortisol [Mass/Vol] 18.8 ug/dL [facility] Comment on above: [facility] marketing information coordinator and method:[employer] UNICEL DXI, POLYCLONAL ANTIBODY CORTISOL ASSAY.Reference range: AM 6 - 24 ug/dl PM <10 ug/dl Serum globulin measurement b y calculation (mass/volume)Ordered By: Aries Chavez on 06-18-2024 Globulin (S) [Mass/Vol] 3.2 g/dL Normal [facility] Comment on above: Performed By: #### T 4F, JER, CMP, TSH3 #### [facility] [address] [place] [address] [place] #### ACTH #### [facility] , Serum or plasma albumin/glob ulin mass ratioOrdered By: Aries Chavez on 06-18-2024 Albumin/Globulin [Mass ratio] 1.2 {ratio} Normal [facility] Comment on above: Performed By: #### T 4F, JER, CMP, TSH3 #### [facility] [address] [place] [address] [place] #### ACTH #### [facility] , Serum or plasma anion gap de terminationOrdered By: Aries Chavez on 06-18-2024 Anion gap [Moles/Vol] 7.6 mmol/L Normal 6.0-15.0 [facility] Comment on above: Performed By: #### T 4F, JER, CMP, TSH3 #### [facility] [address] [place] [address] [place] #### ACTH #### [facility] , Sodium [Moles/volume] in Ser um or PlasmaOrdered By: Aries Chavez on 06-18-2024 Sodium [Moles/Vol] 126 mmol/L Low 136-145 [facility] Comment on above: Performed By: #### T 4F, JER, CMP, TSH3 #### [facility] [address] [place] [address] #### ACTH #### [facility] , Thyrotropin [Units/volume] i n Serum or PlasmaOrdered By: Aries Chavez on 06-18-2024 TSH Qn 24.20 m[IU]/L High 0.45-5.33 [facility] Comment on above: Performed By: #### C BC, CMP #### [facility] [address] [place] [address] Thyroxine (T4) free [Mass/vo lume] in Serum or PlasmaOrdered By: Aries Chavez on 06-18-2024 Free T4 [Mass/Vol] 1.05 ng/dL Normal 0.61-1.12 [facility] Comment on above: Performed By: #### T 4F, JER, CMP, TSH3 #### [facility] [address] [place] [address] [place] #### ACTH #### [facility] , Urea nitrogen [Mass/volume] in Serum or PlasmaOrdered By: Aries Chavez on 06-18-2024 Urea nitrogen [Mass/Vol] 9 mg/dL Normal 7-25 [facility] Comment on above: Performed By: #### T 4F, JER, CMP, TSH3 #### [place] [address] [place] #### ACTH #### [facility] , No Panel InformationOrdered By: Elayne James on 06-04-2024 COVID Antigen (POC) [facility] COVID Antigen (POC) [facility] 36on 05-24-2024 36 Patient informed. Sh e verbalized understanding. Normal [facility] 36on 05-22-2024 36 Nothing further to d [...] with cardiology in 6 months. Thanks! Normal [facility] 36 Regarding echo resul t from 05/09/2024: AMA Alvarez, CJ Guevara LV function is normal , no significant valvular abnormalities Overall pretty good. Enlarged lt atrium- but normal if she has A fib Thanks Stephanie, I don't see afib as one of her diagnoses. Did you want something else done for her? Normal [facility] Adrenocorticotropic Hormone PLon 05-07-[address] 38.4 pg/mL Normal 7.2-63.3 [facility] Comment on above: Result Comment: ACTH reference interval for samples collected between 7 and 10 AM. Performed at: - [facility] [address] [id number] Mechanical Design Technician: Juan Hendricks PhD, Phone: [phone] PERFORMED BY: [place] [id number] PATHOLOGIST ACCOUNTS PAYABLE TECHNICIAN STEFANO HOLT M.D. Performed By: #### T 4F, TSH3, JER, CMP #### [facility] [address] [place] [address] [place] #### ACTH #### [facility] , Alanine aminotransferase [En zymatic activity/volume] in Serum or PlasmaOrdered By: Aries Chavez on 05-07-2024 ALT [Catalytic activity/Vol] 13 U/L Normal 7-52 [facility] Comment on above: Performed By: #### T 4F, TSH3, JER, CMP #### [facility] [address] [place] [address] [place] #### ACTH #### [facility] , Albumin [Mass/volume] in Ser um or Plasma by Bromocresol green (BCG) dye binding methoOrdered By: Aries Chavez on 05-07-2024 Albumin BCG dye [Mass/Vol] 3.8 g/dL 3.5-5.7 [facility] Alkaline phosphatase [Enzyma tic activity/volume] in Serum or PlasmaOrdered By: Aries Chavez on 05-07-2024 ALP [Catalytic activity/Vol] 74 U/L Normal 34-104 [facility] Comment on above: Performed By: #### T 4F, TSH3, JER, CMP #### [facility] [address] [place] [address] [place] #### ACTH #### [facility] , Aspartate aminotransferase [ Enzymatic activity/volume] in Serum or PlasmaOrdered By: Aries Chavez on 05-07-2024 AST [Catalytic activity/Vol] 20 U/L Normal 13-39 [facility] Comment on above: Performed By: #### T 4F, TSH3, JER, CMP #### [facility] [address] [place] [address] [place] #### ACTH #### [facility] , Automated basophil %Ordered By: Aries Chavez on 05-07-2024 Basophils/100 WBC (Bld) 2.9 % Normal . [facility] Comment on above: Performed By: #### T 4F, TSH3, JER, CMP #### [address] #### ACTH #### [facility] , Automated basophil countOrde red By: Aries Chavez on 05-07-2024 Basophils (Bld) [#/Vol] 0.2 10*3/uL Normal 0.0-0.2 [facility] Comment on above: Result Comment: PERF ORMED BY: [place] [id number] PATHOLOGIST ACCOUNTS PAYABLE TECHNICIAN STEFANO HOLT M.D. Performed By: #### T 4F, TSH3, JER, CMP #### [place] [address] [place] #### ACTH #### [facility] , Automated blood monocyte cou ntOrdered By: Aries Chavez on 05-07-2024 Monocytes (Bld) [#/Vol] 0.8 10*3/uL Normal 0.0-0.8 [facility] Comment on above: Performed By: #### T 4F, TSH3, JER, CMP #### [address] #### ACTH #### [facility] , Automated eosinophil %Ordere d By: Aries Chavez on 05-07-2024 Eosinophils/100 WBC (Bld) 8.7 % Normal . [facility] Comment on above: Performed By: #### T 4F, TSH3, JER, CMP #### [place] [address] [place] #### ACTH #### [facility] , Automated eosinophil countOr dered By: Aries Chavez on 05-07-2024 Eosinophils (Bld) [#/Vol] 0.6 10*3/uL High 0.0-0.45 [facility] Comment on above: Performed By: #### T 4F, TSH3, JER, CMP #### [place] [address] [place] #### ACTH #### [facility] , Automated monocyte %Ordered By: Aries Chavez on 05-07-2024 Monocytes/100 WBC (Bld) 11.6 % Normal . [facility] Comment on above: Performed By: #### T 4F, TSH3, JER, CMP #### [facility] [address] [place] [address] [place] #### ACTH #### [facility] , Automated neutrophil %Ordere d By: Aries Chavez on 05-07-2024 Neutrophils/100 WBC (Bld) 59.0 % Normal . [facility] Comment on above: Performed By: #### T 4F, TSH3, JER, CMP #### [place] [address] [place] #### ACTH #### [facility] , Bilirubin.direct [Mass/volum e] in Serum or PlasmaOrdered By: Aries Chavez on 05-07-2024 Bilirubin.direct [Mass/Vol] 0.10 mg/dL 0.03-0.18 [facility] Bilirubin.direct [Mass/Vol] Bilirubin.direct [Mass/volume] in Serum or Plasma 0.03-0.18 [facility] Bilirubin.total [Mass/volume ] in Serum or PlasmaOrdered By: Aries Chavez on 05-07-2024 Bilirubin [Mass/Vol] 0.6 mg/dL Normal 0.3-1.0 [facility] Comment on above: Performed By: #### T 4F, TSH3, JER, CMP #### [facility] [address] [place] [address] [place] #### ACTH #### [facility] , Calcium [Mass/volume] in Ser um or PlasmaOrdered By: Aries Chavez on 05-07-2024 Calcium [Mass/Vol] 8.9 mg/dL Normal 8.6-10.3 [facility] Comment on above: Performed By: #### T 4F, TSH3, JER, CMP #### [facility] [address] [place] [address] [place] #### ACTH #### [facility] , Carbon dioxide, total [Moles /volume] in Serum or PlasmaOrdered By: Aries Chavez on 05-07-2024 CO2 [Moles/Vol] 29.3 mmol/L Normal 21.0-31.0 [facility] Comment on above: Performed By: #### T 4F, TSH3, JER, CMP #### [facility] [address] [place] [address] [place] #### ACTH #### [facility] , Chloride [Moles/volume] in S leena or PlasmaOrdered By: Aries Chavez on 05-07-2024 Chloride [Moles/Vol] 96 mmol/L Low 98-107 [facility] Comment on above: Performed By: #### T 4F, TSH3, JER, CMP #### [place] [address] [place] #### ACTH #### [facility] , Complete Blood Count Auto Di ffon 05-07-2024 Mean Corpuscular HGB Conc 32.9 g/dL Normal 32.0-35.0 [facility] Comment on above: Performed By: #### T 4F, TSH3, JER, CMP #### [place] [address] [place] #### ACTH #### [facility] , NRBC% 0.0 /100{WBC} Normal 0-0.5 [facility] Comment on above: Performed By: #### T 4F, TSH3, JRE, CMP #### [facility] [address] [place] [address] [place] #### ACTH #### [facility] , Comprehensive Metabolic Pane malcom 05-07-2024 Albumin [Mass/Vol] 3.8 g/dL Normal 3.5-5.7 [facility] Comment on above: Performed By: #### T 4F, TSH3, JER, CMP #### [facility] [address] [place] [address] [place] #### ACTH #### [facility] , Creatinine Clr Calc Pharmacy 58.46 Normal [facility] Comment on above: Performed By: #### T 4F, TSH3, JER, CMP #### [address] #### ACTH #### [facility] , GFR/1.73 sq M.predicted MDRD (S/P/Bld) [Vol rate/Area] mL/min/{1.73_m2} Normal [facility] Comment on above: Performed By: #### T 4F, TSH3, JER, CMP #### [address] #### ACTH #### [facility] , Cortisolon 05-07-2024 Cortisol 14.4 ug/dL Normal [facility] Comment on above: Result Comment: Refe rence range: AM 6 - 24 ug/dl PM <10 ug/dl [facility] marketing information coordinator and method: [email or web address] DXI, POLYCLONAL ANTIBODY CORTISOL ASSAY. PERFORMED BY: [place] [id number] PATHOLOGIST ACCOUNTS PAYABLE TECHNICIAN STEFANO HOLT M.D. Performed By: #### T 4F, TSH3, JER, CMP #### [address] #### ACTH #### [facility] , Creatinine [Mass/volume] in Serum or PlasmaOrdered By: Aries Chavez on 05-07-2024 Creatinine [Mass/Vol] 0.93 mg/dL Normal 0.60-1.20 [facility] Comment on above: Performed By: #### T 4F, TSH3, JER, CMP #### [place] [address] [place] #### ACTH #### [facility] , Erythrocyte distribution wid th [Ratio] by Automated countOrdered By: Aries Chavez on 05-07-2024 Erythrocyte distribution width (RBC) [Ratio] 13.3 % Normal 11.9-15.3 [facility] Comment on above: Performed By: #### T 4F, TSH3, JER, CMP #### [facility] [address] [place] [address] [place] #### ACTH #### [facility] , Erythrocytes [#/volume] in B lood by Automated countOrdered By: Aries Chavez on 05-07-2024 RBC (Bld) [#/Vol] 3.94 10*6/uL Normal 3.60-5.00 [facility] Comment on above: Performed By: #### T 4F, TSH3, JER, CMP #### [place] [address] [place] #### ACTH #### [facility] , Glucose [Mass/volume] in Ser um or PlasmaOrdered By: Aries Chavez on 05-07-2024 Glucose [Mass/Vol] 92 mg/dL Normal 70-100 [facility] Comment on above: ADA recommended refe rence rangeRandom Glucose Reference Range is dependent on time and content of last meal. Glucose of more than 200 mg/dL in a nonstressed, ambulatory subject supports the diagnosis of Diabetes Mellitus. Result Comment: [place] om Glucose Reference Range is dependent on time and content of last meal. Glucose of more than 200 mg/dL in a nonstressed, ambulatory subject supports the diagnosis of Diabetes Mellitus. ADA recommended reference range Performed By: #### T 4F, TSH3, JER, CMP #### [place] [address] [place] #### ACTH #### [facility] , Hematocrit [Volume Fraction] of Blood by Automated countOrdered By: Aries Chavez on 05-07-2024 Hematocrit (Bld) [Volume fraction] 35.8 % Normal 34.0-46.4 [facility] Comment on above: Performed By: #### T 4F, TSH3, JER, CMP #### [facility] [address] [place] [address] [place] #### ACTH #### [facility] , Hemoglobin [Mass/volume] in BloodOrdered By: Aries Chavez on 05-07-2024 Hemoglobin (Bld) [Mass/Vol] 11.8 g/dL Normal 11.8-15.4 [facility] Comment on above: Performed By: #### T 4F, TSH3, JER, CMP #### [facility] [address] [place] [address] [place] #### ACTH #### [facility] , Hepatic Panelon 05-07-2024 Bilirubin,Indirect 0.5 mg/dL Normal [facility] Comment on above: Performed By: #### T 4F, TSH3, JER, CMP #### [facility] [address] [place] [address] [place] #### ACTH #### [facility] , Bilirubin.indirect [Mass/Vol] 0.10 mg/dL Normal 0.03-0.18 [facility] Comment on above: Performed By: #### T 4F, TSH3, JER, CMP #### [facility] [address] [place] [address] [place] #### ACTH #### [facility] , Leukocytes [#/volume] correc gabriel for nucleated erythrocytes in Blood by Automated counOrdered By: Aries Chavez on 05-07-2024 WBC corrected for nucl RBC Auto (Bld) [#/Vol] 6.8 10*3/uL 3.8-11.6 [facility] Leukocytes [#/volume] in Blo od by Automated countOrdered By: Aries Chavez on 05-07-2024 WBC (Bld) [#/Vol] 6.8 10*3/uL Normal 3.8-11.6 [facility] Comment on above: Performed By: #### T 4F, TSH3, JER, CMP #### [facility] [address] [place] [address] [place] #### ACTH #### [facility] , Lymphocytes [#/volume] in Bl ood by Automated countOrdered By: Aries Chavez on 05-07-2024 Lymphocytes (Bld) [#/Vol] 1.2 10*3/uL Normal 1.00-4.8 [facility] Comment on above: Performed By: #### T 4F, TSH3, JER, CMP #### [address] #### ACTH #### [facility] , Lymphocytes/100 leukocytes i n Blood by Automated countOrdered By: Aries Chavez on 05-07-2024 Lymphocytes/100 WBC (Bld) 17.8 % Normal . [facility] Comment on above: Performed By: #### T 4F, TSH3, JER, CMP #### [address] #### ACTH #### [facility] , MCH [Entitic mass] by Automa gabriel countOrdered By: Aries Chavez on 05-07-2024 MCH (RBC) [Entitic mass] 29.9 pg Normal 24.7-34.3 [facility] Comment on above: Performed By: #### T 4F, TSH3, JER, CMP #### [place] [address] [place] #### ACTH #### [facility] , MCHC Auto (RBC) [Mass/Vol]Or dered By: Aries Chavez on 05-07-2024 MCHC (RBC) [Mass/Vol] 32.9 g/dL 32.0-35.0 [facility] MCV [Entitic volume] by Auto mated countOrdered By: Aries Chavez on 05-07-2024 MCV (RBC) [Entitic vol] 90.9 fL Normal 80-100 [facility] Comment on above: Performed By: #### T 4F, TSH3, JER, CMP #### [place] [address] [place] #### ACTH #### [facility] , Neutrophils [#/volume] in Bl ood by Automated countOrdered By: Aries Chavez on 05-07-2024 Neutrophils (Bld) [#/Vol] 4.0 10*3/uL Normal 1.8-7.7 [facility] Comment on above: Performed By: #### T 4F, TSH3, JER, CMP #### [facility] [address] [place] [address] #### ACTH #### [facility] , No Panel InformationOrdered By: Aries Chavez on 05-07-2024 Adrenocorticotropic Hormone 38.4 pg/mL 7.2-63.3 [facility] Comment on above: ACTH reference inter wendy for samples collected between 7 and10 AM.Performed at: [facility] [place] [id number] Director: Juan Hendricks PhD, Phone: [phone] Estimated GFR (CKD-EPI) > 60.0 mL/Min [facility] Creatinine Clearance (Chem 58.46 [facility] Nucleated erythrocytes [Pres ence] in Blood by Automated countOrdered By: Aries Chavez on 05-07-2024 Nucleated RBC Auto Ql (Bld) 0.0 /100{WBC} 0-0.5 [facility] Platelet mean volume [Entiti c volume] in Blood by Automated countOrdered By: Aries Chavez on 05-07-2024 Platelet mean volume (Bld) [Entitic vol] 8.2 fL Normal 6.3-10.7 [facility] Comment on above: Performed By: #### T 4F, TSH3, JER, CMP #### [facility] [address] [place] [address] [place] #### ACTH #### [facility] , Platelets [#/volume] in Bloo d by Automated countOrdered By: Aries Chavez on 05-07-2024 Platelets (Bld) [#/Vol] 225 10*3/uL Normal 150-450 [facility] Comment on above: Performed By: #### T 4F, TSH3, JER, CMP #### [place] [address] [place] #### ACTH #### [facility] , Potassium [Moles/volume] in Serum or PlasmaOrdered By: Aries Chavez on 05-07-2024 Potassium [Moles/Vol] 4.4 mmol/L Normal 3.5-5.1 [facility] Comment on above: Performed By: #### T 4F, TSH3, JER, CMP #### [facility] [address] [place] [address] [place] #### ACTH #### [facility] , Protein [Mass/volume] in Ser um or PlasmaOrdered By: Aries Chavez on 05-07-2024 Protein [Mass/Vol] 6.8 g/dL Normal 6.4-8.9 [facility] Comment on above: Performed By: #### T 4F, TSH3, JER, CMP #### [facility] [address] [place] [address] [place] #### ACTH #### [facility] , Random cortisol measurementO rdered By: Aries Chavez on 05-07-2024 Cortisol [Mass/Vol] 14.4 ug/dL [facility] Comment on above: [facility] marketing information coordinator and method:[employer]EL DXI, POLYCLONAL ANTIBODY CORTISOL ASSAY.Reference range: AM 6 - 24 ug/dl PM <10 ug/dl Serum globulin measurement b y calculation (mass/volume)Ordered By: Aries Chavez on 05-07-2024 Globulin (S) [Mass/Vol] 3.0 g/dL Normal [facility] Comment on above: Performed By: #### T 4F, TSH3, JER, CMP #### [facility] [address] [place] [address] [place] #### ACTH #### [facility] , Serum or plasma albumin/glob ulin mass ratioOrdered By: Aries Chavez on 05-07-2024 Albumin/Globulin [Mass ratio] 1.3 {ratio} Normal [facility] Comment on above: Performed By: #### T 4F, TSH3, JER, CMP #### [facility] [address] [place] [address] [place] #### ACTH #### [facility] , Serum or plasma anion gap de terminationOrdered By: Aries Chavez on 05-07-2024 Anion gap [Moles/Vol] 10.1 mmol/L Normal 6.0-15.0 [facility] Comment on above: Performed By: #### T 4F, TSH3, JER, CMP #### [facility] [address] [place] [address] [place] #### ACTH #### [facility] , Serum or plasma non-glucuron idated bilirubin measurement (mass/volume)Ordered By: Aries Chavez on 05-07-2024 Bilirubin.indirect [Mass/Vol] 0.5 mg/dL [facility] Bilirubin.indirect [Mass/Vol] Serum or plasma non-glucuronidated bilirubin measurement (mass/volume) [facility] Sodium [Moles/volume] in Ser um or PlasmaOrdered By: Aries Chavez on 05-07-2024 Sodium [Moles/Vol] 131 mmol/L Low 136-145 [facility] Comment on above: Performed By: #### T 4F, TSH3, JER, CMP #### [place] [address] [place] #### ACTH #### [facility] , Thyrotropin [Units/volume] i n Serum or PlasmaOrdered By: Aries Chavez on 05-07-2024 TSH Qn 36.65 m[IU]/L High 0.45-5.33 [facility] Comment on above: Performed By: #### T 4F, TSH3, JER, CMP #### [facility] [address] [place] [address] [place] #### ACTH #### [facility] , Thyroxine (T4) free [Mass/vo lume] in Serum or PlasmaOrdered By: Aries Chavez on 05-07-2024 Free T4 [Mass/Vol] 0.60 ng/dL Low 0.61-1.12 [facility] Comment on above: Performed By: #### T 4F, TSH3, JER, CMP #### [facility] [address] [place] [address] #### ACTH #### [facility] , Urea nitrogen [Mass/volume] in Serum or PlasmaOrdered By: Aries Chavez on 05-07-2024 Urea nitrogen [Mass/Vol] 13 mg/dL Normal 04-25 [facility] Comment on above: Performed By: #### T 4F, TSH3, JER, CMP #### [facility] [address] #### ACTH #### [facility] , Follow-Upon 04-23-2024 Follow-Up [id number] Perla Ibarra 1955 F Date Provider Department Center 04/23/2024 [facility] Family History Problem Relation Age of Onset Tuberculosis Mother Heart attack Brother Heart failure Maternal Grandmother Heart attack Maternal Grandfather Family Status - Relation Status Age at Mother Brother Maternal Grandmother Maternal Grandfather Level of Service:45568 ME OFFICE/OUTPATIENT ESTABLISHED MOD MDM 30 MIN Reason for Visit and Comments: Congestive Heart Failure [127] Coronary Artery Disease [187] Normal [facility] Cortisolon 03-29-2024 Cortisol 11.8 ug/dL Normal [facility] Comment on above: Result Comment: Refe rence range: AM 6 - 24 ug/dl PM <10 ug/dl [facility] marketing information coordinator and method: [employer] DXI, POLYCLONAL ANTIBODY CORTISOL ASSAY. PERFORMED BY: [place] [id number] PATHOLOGIST ACCOUNTS PAYABLE TECHNICIAN STEFANO HOLT M.D. Performed By: #### C BC, CMP #### [address] Free T4 (Free Thyroxine)on 0 03-29-2024 Free T4 [Mass/Vol] 0.84 ng/dL Normal 0.61-1.12 [facility] Comment on above: Performed By: #### C BC, CMP #### [address] Thyroid Stimulating Hormoneo n 03-29-2024 TSH Qn 20.08 m[IU]/L High 0.45-5.33 [facility] Comment on above: Performed By: #### C BC, CMP #### [address] Alanine aminotransferase [En zymatic activity/volume] in Serum or PlasmaOrdered By: Aries Chavez on 03-26-2024 ALT [Catalytic activity/Vol] 17 U/L Normal 7-52 [facility] Comment on above: Performed By: #### C BC, CMP #### [address] Albumin [Mass/volume] in Ser um or Plasma by Bromocresol green (BCG) dye binding methoOrdered By: Aries Chavez on 03-26-2024 Albumin BCG dye [Mass/Vol] 3.9 g/dL 3.5-5.7 [facility] Alkaline phosphatase [Enzyma tic activity/volume] in Serum or PlasmaOrdered By: Aries Chavez on 03-26-2024 ALP [Catalytic activity/Vol] 123 U/L High 34-104 [facility] Comment on above: Performed By: #### C BC, CMP #### [address] Aspartate aminotransferase [ Enzymatic activity/volume] in Serum or PlasmaOrdered By: Aries Chavez on 03-26-2024 AST [Catalytic activity/Vol] 22 U/L Normal 13-39 [facility] Comment on above: Performed By: #### C BC, CMP #### [place] [address] [place] Automated basophil %Ordered By: Aries Chavez on 03-26-2024 Basophils/100 WBC (Bld) 3.0 % Normal . [facility] Comment on above: Performed By: #### C BC, CMP #### [address] [place] [address] [place] Automated basophil countOrde red By: Aries Chavez on 03-26-2024 Basophils (Bld) [#/Vol] 0.2 10*3/uL Normal 0.0-0.2 [facility] Comment on above: Result Comment: PERF ORMED BY: [place] [id number] PATHOLOGIST [employer]OUNTS PAYABLE TECHNICIAN STEFANO HOLT M.D. Performed By: #### C BC, CMP #### [address] Automated blood monocyte cou ntOrdered By: Aries Chavez on 03-26-2024 Monocytes (Bld) [#/Vol] 0.7 10*3/uL Normal 0.0-0.8 [facility] Comment on above: Performed By: #### C BC, CMP #### [address] Automated eosinophil %Ordere d By: Aries Chavez on 03-26-2024 Eosinophils/100 WBC (Bld) 11.6 % Normal . [facility] Comment on above: Performed By: #### C BC, CMP #### [address] Automated eosinophil countOr dered By: Aries Chavez on 03-26-2024 Eosinophils (Bld) [#/Vol] 0.7 10*3/uL High 0.0-0.45 [facility] Comment on above: Performed By: #### C BC, CMP #### [address] Automated monocyte %Ordered By: Aries Chavez on 03-26-2024 Monocytes/100 WBC (Bld) 11.9 % Normal . [facility] [place] Comment on above: Performed By: #### C BC, CMP #### [address] Automated neutrophil %Ordere d By: Aries Chavez on 03-26-2024 Neutrophils/100 WBC (Bld) 50.5 % Normal . [facility] Comment on above: Performed By: #### C BC, CMP #### [address] Bilirubin.total [Mass/volume ] in Serum or PlasmaOrdered By: Aries Chavez on 03-26-2024 Bilirubin [Mass/Vol] 0.6 mg/dL Normal 0.3-1.0 [facility] Comment on above: Performed By: #### C BC, CMP #### [address] Calcium [Mass/volume] in Ser um or PlasmaOrdered By: Aries Chavez on 03-26-2024 Calcium [Mass/Vol] 9.3 mg/dL Normal 8.6-10.3 [facility] Comment on above: Performed By: #### C BC, CMP #### [address] Carbon dioxide, total [Moles /volume] in Serum or PlasmaOrdered By: Aries Chavez on 03-26-2024 CO2 [Moles/Vol] 30.3 mmol/L Normal 21.0-31.0 [facility] Comment on above: Performed By: #### C BC, CMP #### [address] Chloride [Moles/volume] in S leena or PlasmaOrdered By: Aries Chavez on 03-26-2024 Chloride [Moles/Vol] 96 mmol/L Low 98-107 [facility] Comment on above: Performed By: #### C BC, CMP #### [address] Complete Blood Count Auto Di ffon 03-26-2024 Mean Corpuscular HGB Conc 33.3 g/dL Normal 32.0-35.0 [facility] Comment on above: Performed By: #### C BC, CMP #### [address] NRBC% 0.1 /100{WBC} Normal 0-0.5 [facility] Comment on above: Performed By: #### C BC, CMP #### [address] Comprehensive Metabolic Pane malcom 03-26-2024 Albumin [Mass/Vol] 3.9 g/dL Normal 3.5-5.7 [facility] Comment on above: Performed By: #### C BC, CMP #### [address] Creatinine Clr Calc Pharmacy 62.20 Normal [facility] Comment on above: Result Comment: PERF ORMED BY: [place] [id number] PATHOLOGIST ACCOUNTS PAYABLE TECHNICIAN STEFANO HOLT M.D. Performed By: #### C BC, CMP #### [address] GFR/1.73 sq M.predicted MDRD (S/P/Bld) [Vol rate/Area] mL/min/{1.73_m2} Normal [facility] Comment on above: Performed By: #### C BC, CMP #### [address] Creatinine [Mass/volume] in Serum or PlasmaOrdered By: Aries Chavez on 03-26-2024 Creatinine [Mass/Vol] 0.83 mg/dL Normal 0.60-1.20 [facility] Comment on above: Performed By: #### C BC, CMP #### [address] Erythrocyte distribution wid th [Ratio] by Automated countOrdered By: Aries Chavez on 03-26-2024 Erythrocyte distribution width (RBC) [Ratio] 13.4 % Normal 11.9-15.3 [facility] Comment on above: Performed By: #### C BC, CMP #### [address] Erythrocytes [#/volume] in B lood by Automated countOrdered By: Aries Chavez on 03-26-2024 RBC (Bld) [#/Vol] 4.08 10*6/uL Normal 3.60-5.00 [facility] Comment on above: Performed By: #### C BC, CMP #### [address] Glucose [Mass/volume] in Ser um or PlasmaOrdered By: Aries Chavez on 03-26-2024 Glucose [Mass/Vol] 95 mg/dL Normal 70-100 [facility] Comment on above: ADA recommended refe rence rangeRandom Glucose Reference Range is dependent on time and content of last meal. Glucose of more than 200 mg/dL in a nonstressed, ambulatory subject supports the diagnosis of Diabetes Mellitus. Result Comment: [place] om Glucose Reference Range is dependent on time and content of last meal. Glucose of more than 200 mg/dL in a nonstressed, ambulatory subject supports the diagnosis of Diabetes Mellitus. ADA recommended reference range Performed By: #### C BC, CMP #### [address] Hematocrit [Volume Fraction] of Blood by Automated countOrdered By: Aries Chavez on 03-26-2024 Hematocrit (Bld) [Volume fraction] 36.6 % Normal 34.0-46.4 [facility] Comment on above: Performed By: #### C BC, CMP #### [address] Hemoglobin [Mass/volume] in BloodOrdered By: Aries Chavez on 03-26-2024 Hemoglobin (Bld) [Mass/Vol] 12.2 g/dL Normal 11.8-15.4 [facility] Comment on above: Performed By: #### C BC, CMP #### [address] Leukocytes [#/volume] correc gabriel for nucleated erythrocytes in Blood by Automated counOrdered By: Aries Chavez on 03-26-2024 WBC corrected for nucl RBC Auto (Bld) [#/Vol] 5.8 10*3/uL 3.8-11.6 [facility] Leukocytes [#/volume] in Blo od by Automated countOrdered By: Aries Chavez on 03-26-2024 WBC (Bld) [#/Vol] 5.8 10*3/uL Normal 3.8-11.6 [facility] Comment on above: Performed By: #### C BC, CMP #### [address] Lymphocytes [#/volume] in Bl ood by Automated countOrdered By: Aries Chavez on 03-26-2024 Lymphocytes (Bld) [#/Vol] 1.3 10*3/uL Normal 1.00-4.8 [facility] Comment on above: Performed By: #### C BC, CMP #### [address] Lymphocytes/100 leukocytes i n Blood by Automated countOrdered By: Aries Chavez on 03-26-2024 Lymphocytes/100 WBC (Bld) 23.0 % Normal . [facility] Comment on above: Performed By: #### C BC, CMP #### [address] MCH [Entitic mass] by Automa gabriel countOrdered By: Aries Chavez on 03-26-2024 MCH (RBC) [Entitic mass] 29.9 pg Normal 24.7-34.3 [facility] Comment on above: Performed By: #### C BC, CMP #### [address] MCHC Auto (RBC) [Mass/Vol]Or dered By: Aries Chavez on 03-26-2024 MCHC (RBC) [Mass/Vol] 33.3 g/dL 32.0-35.0 [facility] MCV [Entitic volume] by Auto mated countOrdered By: Aries Chavez on 03-26-2024 MCV (RBC) [Entitic vol] 89.7 fL Normal 80-100 [facility] [place] Comment on above: Performed By: #### C BC, CMP #### [address] Neutrophils [#/volume] in Bl ood by Automated countOrdered By: Aries Chavez on 03-26-2024 Neutrophils (Bld) [#/Vol] 2.9 10*3/uL Normal 1.8-7.7 [facility] Comment on above: Performed By: #### C BC, CMP #### [address] No Panel InformationOrdered By: Aries Chavez on 03-26-2024 Estimated GFR (CKD-EPI) > 60.0 mL/Min [facility] Creatinine Clearance (Chem 62.20 [facility] Nucleated erythrocytes [Pres ence] in Blood by Automated countOrdered By: Aries Chavez on 03-26-2024 Nucleated RBC Auto Ql (Bld) 0.1 /100{WBC} 0-0.5 [facility] Platelet mean volume [Entiti c volume] in Blood by Automated countOrdered By: Aries Chavez on 03-26-2024 Platelet mean volume (Bld) [Entitic vol] 8.8 fL Normal 6.3-10.7 [facility] Comment on above: Performed By: #### C BC, CMP #### [address] Platelets [#/volume] in Bloo d by Automated countOrdered By: Aries Chavez on 03-26-2024 Platelets (Bld) [#/Vol] 235 10*3/uL Normal 150-450 [facility] Comment on above: Performed By: #### C BC, CMP #### [place] [address] [place] Potassium [Moles/volume] in Serum or PlasmaOrdered By: Aries Chavez on 03-26-2024 Potassium [Moles/Vol] 4.9 mmol/L Normal 3.5-5.1 [facility] Comment on above: Performed By: #### C BC, CMP #### [place] [address] [place] Protein [Mass/volume] in Ser um or PlasmaOrdered By: Aries Chavez on 03-26-2024 Protein [Mass/Vol] 7.0 g/dL Normal 6.4-8.9 [facility] Comment on above: Performed By: #### C BC, CMP #### [address] Serum globulin measurement b y calculation (mass/volume)Ordered By: Aries Chavez on 03-26-2024 Globulin (S) [Mass/Vol] 3.1 g/dL Normal [facility] [place] Comment on above: Performed By: #### C BC, CMP #### [address] Serum or plasma albumin/glob ulin mass ratioOrdered By: Aries Chavez on 03-26-2024 Albumin/Globulin [Mass ratio] 1.3 {ratio} Normal [facility] Comment on above: Performed By: #### C BC, CMP #### [address] Serum or plasma anion gap de terminationOrdered By: Aries Chavez on 03-26-2024 Anion gap [Moles/Vol] 9.6 mmol/L Normal 6.0-15.0 [facility] Comment on above: Performed By: #### C BC, CMP #### [place] [address] [place] Sodium [Moles/volume] in Ser um or PlasmaOrdered By: Aries Chavez on 03-26-2024 Sodium [Moles/Vol] 131 mmol/L Low 136-145 [facility] Comment on above: Performed By: #### C BC, CMP #### [address] Urea nitrogen [Mass/volume] in Serum or PlasmaOrdered By: Aries Chavez on 03-26-2024 Urea nitrogen [Mass/Vol] 20 mg/dL Normal 7-25 [facility] Comment on above: Performed By: #### C BC, CMP #### [address] abdomen pelvis w conon CT abdomen pelvis w con [facility] [address] [place] [address] [place] [address] CT Scan Report Signed Patient: Perla Ibarra MR#: [id number] : 1955 Acct:[id number] Age/Sex: 68 / F ADM Date: 03/14/24 Loc: XT Room: Type: [facility] RCR Attending Dr: Aries Chavez II DO Copies to: Aries Chavez II, DO Ordering Provider: Aries Chavez II, DO Date of Service: 03/14/24 CT/CT abdomen pelvis w con: C64.1 - Malignant neoplasm of right kidney, except renal ... ([id number]) CT/CT chest w con: C64.1 - Malignant [...] pelvis. Impression dictated by: Junior Shelley Jr., DGabeOGabe03/14/2024 3:47 PM Dictation Location: [place] [address] Transcribed By: [facility] 03/14/24 1547 Dictated By: Junior Shelley Jr, DO 03/14/24 1528 Signed By: 03/14/24 1547 Normal [facility] Complete Blood Count Auto Di ffon 03-14-2024 Basophils (Bld) [#/Vol] 0.2 10*3/uL Normal 0.0-0.2 [facility] Comment on above: Result Comment: PERF ORMED BY: [place] [id number] PATHOLOGIST ACCOUNTS PAYABLE TECHNICIAN STEFANO HOLT M.D. Performed By: #### C BC, CMP #### [address] Basophils/100 WBC (Bld) 2.9 % Normal . [facility] Comment on above: Performed By: #### C BC, CMP #### [address] Eosinophils (Bld) [#/Vol] 0.7 10*3/uL High 0.0-0.45 [facility] Comment on above: Performed By: #### C BC, CMP #### [address] Eosinophils/100 WBC (Bld) 10.7 % Normal . [facility] Comment on above: Performed By: #### C BC, CMP #### [address] Erythrocyte distribution width (RBC) [Ratio] 13.8 % Normal 11.9-15.3 [facility] Comment on above: Performed By: #### C BC, CMP #### [address] Hematocrit (Bld) [Volume fraction] 36.2 % Normal 34.0-46.4 [facility] Comment on above: Performed By: #### C BC, CMP #### [address] Hemoglobin (Bld) [Mass/Vol] 12.3 g/dL Normal 11.8-15.4 [facility] Comment on above: Performed By: #### C BC, CMP #### [address] Lymphocytes (Bld) [#/Vol] 1.4 10*3/uL Normal 1.00-4.8 [facility] Comment on above: Performed By: #### C BC, CMP #### [place] [address] [place] Lymphocytes/100 WBC (Bld) 22.2 % Normal . [facility] Comment on above: Performed By: #### C BC, CMP #### [address] MCH (RBC) [Entitic mass] 30.2 pg Normal 24.7-34.3 [facility] Comment on above: Performed By: #### C BC, CMP #### [address] MCV (RBC) [Entitic vol] 89.0 fL Normal 80-100 [facility] Comment on above: Performed By: #### C BC, CMP #### [facility] [address] Mean Corpuscular HGB Conc 34.0 g/dL Normal 32.0-35.0 [facility] Comment on above: Performed By: #### C BC, CMP #### [facility] [address] [place] [address] [place] Monocytes (Bld) [#/Vol] 0.7 10*3/uL Normal 0.0-0.8 [facility] Comment on above: Performed By: #### C BC, CMP #### [facility] [address] [place] [address] [place] Monocytes/100 WBC (Bld) 10.7 % Normal . [facility] Comment on above: Performed By: #### C BC, CMP #### [facility] [address] [place] [address] [place] Neutrophils (Bld) [#/Vol] 3.5 10*3/uL Normal 1.8-7.7 [facility] Comment on above: Performed By: #### C BC, CMP #### [facility] [address] [place] [address] [place] Neutrophils/100 WBC (Bld) 53.5 % Normal . [facility] Comment on above: Performed By: #### C BC, CMP #### [facility] [address] [place] [address] [place] NRBC% 0.0 /100{WBC} Normal 0-0.5 [facility] Comment on above: Performed By: #### C BC, CMP #### [facility] [address] [place] [id number] [place] Platelet mean volume (Bld) [Entitic vol] 7.9 fL Normal 6.3-10.7 [facility] Comment on above: Performed By: #### C BC, CMP #### [facility] [address] [place] [address] [place] Platelets (Bld) [#/Vol] 258 10*3/uL Normal 150-450 [facility] Comment on above: Performed By: #### C BC, CMP #### [address] RBC (Bld) [#/Vol] 4.07 10*6/uL Normal 3.60-5.00 [facility] Comment on above: Performed By: #### C BC, CMP #### [address] WBC (Bld) [#/Vol] 6.5 10*3/uL Normal 3.8-11.6 [facility] Comment on above: Performed By: #### C BC, CMP #### [address] Comprehensive Metabolic Pane malcom 03-14-2024 Albumin [Mass/Vol] 4.0 g/dL Normal 3.5-5.7 [facility] Comment on above: Order Comment: STAT BUN/CREAT FOR CT Performed By: #### C BC, CMP #### [address] Albumin/Globulin [Mass ratio] 1.1 {ratio} Normal [facility] Comment on above: Order Comment: STAT BUN/CREAT FOR CT Performed By: #### C BC, CMP #### [address] ALP [Catalytic activity/Vol] 181 U/L High 34-104 [facility] Comment on above: Order Comment: STAT BUN/CREAT FOR CT Performed By: #### C BC, CMP #### [address] ALT [Catalytic activity/Vol] 28 U/L Normal 7-52 [facility] Comment on above: Order Comment: STAT BUN/CREAT FOR CT Performed By: #### C BC, CMP #### [address] Anion gap [Moles/Vol] 11.0 mmol/L Normal 6.0-15.0 [facility] Comment on above: Order Comment: STAT BUN/CREAT FOR CT Performed By: #### C BC, CMP #### [facility] [address] [place] [address] AST [Catalytic activity/Vol] 27 U/L Normal 13-39 [facility] Comment on above: Order Comment: STAT BUN/CREAT FOR CT Performed By: #### C BC, CMP #### [address] Bilirubin [Mass/Vol] 0.5 mg/dL Normal 0.3-1.0 [facility] Comment on above: Order Comment: STAT BUN/CREAT FOR CT Performed By: #### C BC, CMP #### [address] Calcium [Mass/Vol] 9.6 mg/dL Normal 8.6-10.3 [facility] Comment on above: Order Comment: STAT BUN/CREAT FOR CT Performed By: #### C BC, CMP #### [place] [address] [place] Chloride [Moles/Vol] 98 mmol/L Normal 98-107 [facility] Comment on above: Order Comment: STAT BUN/CREAT FOR CT Performed By: #### C BC, CMP #### [place] [address] [place] CO2 [Moles/Vol] 27.8 mmol/L Normal 21.0-31.0 [facility] Comment on above: Order Comment: STAT BUN/CREAT FOR CT Performed By: #### C BC, CMP #### [place] [address] [place] Creatinine [Mass/Vol] 0.87 mg/dL Normal 0.60-1.20 [facility] Comment on above: Order Comment: STAT BUN/CREAT FOR CT Performed By: #### C BC, CMP #### [place] [address] [place] Creatinine Clr Calc Pharmacy 59.34 Normal [facility] Comment on above: Order Comment: STAT BUN/CREAT FOR CT Result Comment: PERF ORMED BY: [place] [id number] PATHOLOGIST ACCOUNTS PAYABLE TECHNICIAN STEFANO HOLT M.D. Performed By: #### C BC, CMP #### [address] GFR/1.73 sq M.predicted MDRD (S/P/Bld) [Vol rate/Area] mL/min/{1.73_m2} Normal [facility] Comment on above: Order Comment: STAT BUN/CREAT FOR CT Performed By: #### C BC, CMP #### [address] Globulin (S) [Mass/Vol] 3.6 g/dL Normal [facility] Comment on above: Order Comment: STAT BUN/CREAT FOR CT Performed By: #### C BC, CMP #### [address] Glucose [Mass/Vol] 96 mg/dL Normal 70-100 [facility] Comment on above: Order Comment: STAT BUN/CREAT FOR CT Result Comment: [place] Glucose Reference Range is dependent on time and content of last meal. Glucose of more than 200 mg/dL in a nonstressed, ambulatory subject supports the diagnosis of Diabetes Mellitus. ADA recommended reference range Performed By: #### C BC, CMP #### [address] Potassium [Moles/Vol] 4.8 mmol/L Normal 3.5-5.1 [facility] Comment on above: Order Comment: STAT BUN/CREAT FOR CT Performed By: #### C BC, CMP #### [address] Protein [Mass/Vol] 7.6 g/dL Normal 6.4-8.9 [facility] Comment on above: Order Comment: STAT BUN/CREAT FOR CT Performed By: #### C BC, CMP #### [address] Sodium [Moles/Vol] 132 mmol/L Low 136-145 [facility] Comment on above: Order Comment: STAT BUN/CREAT FOR CT Performed By: #### C BC, CMP #### [address] Urea nitrogen [Mass/Vol] 23 mg/dL Normal 7-25 [facility] Comment on above: Order Comment: STAT BUN/CREAT FOR CT Performed By: #### C BC, CMP #### [address] Adrenocorticotropic Hormone PLon 02-27-[address] 39.6 pg/mL Normal 7.2-63.3 [facility] Comment on above: Result Comment: ACTH reference interval for samples collected between 7 and 10 AM. Performed at: [facility] [address] [id number] Mechanical Design Technician: Juan Hendricks PhD, Phone: [phone] PERFORMED BY: [place] [id number] PATHOLOGIST ACCOUNTS PAYABLE TECHNICIAN STEFANO HOLT M.D. Performed By: #### T 4F, TSH3, JER, CMP #### [address] #### ACTH #### [facility] , Complete Blood Count Auto Di ffon 02-27-2024 Basophils (Bld) [#/Vol] 0.2 10*3/uL Normal 0.0-0.2 [facility] Comment on above: Result Comment: PERF ORMED BY: [place] [id number] PATHOLOGIST ACCOUNTS PAYABLE TECHNICIAN STEFANO HOLT M.D. Performed By: #### T 4F, TSH3, JER, CMP #### [address] #### ACTH #### [facility] , Basophils/100 WBC (Bld) 3.5 % Normal . [facility] Comment on above: Performed By: #### T 4F, TSH3, JER, CMP #### [address] #### ACTH #### [facility] , Eosinophils (Bld) [#/Vol] 0.9 10*3/uL High 0.0-0.45 [facility] Comment on above: Performed By: #### T 4F, TSH3, JER, CMP #### [address] #### ACTH #### [facility] , Eosinophils/100 WBC (Bld) 13.9 % Normal . [facility] Comment on above: Performed By: #### T 4F, TSH3, JER, CMP #### [place] [address] [place] #### ACTH #### [facility] , Erythrocyte distribution width (RBC) [Ratio] 14.0 % Normal 11.9-15.3 [facility] Comment on above: Performed By: #### T 4F, TSH3, JER, CMP #### [place] [address] [place] #### ACTH #### [facility] , Hematocrit (Bld) [Volume fraction] 35.5 % Normal 34.0-46.4 [facility] Comment on above: Performed By: #### T 4F, TSH3, JER, CMP #### [place] [address] [place] #### ACTH #### [facility] , Hemoglobin (Bld) [Mass/Vol] 11.7 g/dL Low 11.8-15.4 [facility] Comment on above: Performed By: #### T 4F, TSH3, JER, CMP #### [place] [address] [place] #### ACTH #### [facility] , Lymphocytes (Bld) [#/Vol] 1.2 10*3/uL Normal 1.00-4.8 [facility] Comment on above: Performed By: #### T 4F, TSH3, JER, CMP #### [place] [address] [place] #### ACTH #### [facility] , Lymphocytes/100 WBC (Bld) 17.7 % Normal . [facility] Comment on above: Performed By: #### T 4F, TSH3, JER, CMP #### [address] #### ACTH #### [facility] , MCH (RBC) [Entitic mass] 29.6 pg Normal 24.7-34.3 [facility] Comment on above: Performed By: #### T 4F, TSH3, JER, CMP #### [address] #### ACTH #### [facility] , MCV (RBC) [Entitic vol] 89.5 fL Normal 80-100 [facility] Comment on above: Performed By: #### T 4F, TSH3, JER, CMP #### [address] #### ACTH #### [facility] , Mean Corpuscular HGB Conc 33.0 g/dL Normal 32.0-35.0 [facility] Comment on above: Performed By: #### T 4F, TSH3, JER, CMP #### [address] #### ACTH #### [facility] , Monocytes (Bld) [#/Vol] 0.7 10*3/uL Normal 0.0-0.8 [facility] Comment on above: Performed By: #### T 4F, TSH3, JER, CMP #### [facility] [address] [place] [address] [place] #### ACTH #### [facility] , Monocytes/100 WBC (Bld) 11.0 % Normal . [facility] Comment on above: Performed By: #### T 4F, TSH3, JER, CMP #### [facility] [address] [place] [address] [place] #### ACTH #### [facility] , Neutrophils (Bld) [#/Vol] 3.6 10*3/uL Normal 1.8-7.7 [facility] Comment on above: Performed By: #### T 4F, TSH3, JER, CMP #### [place] [address] [place] #### ACTH #### [facility] , Neutrophils/100 WBC (Bld) 53.9 % Normal . [facility] Comment on above: Performed By: #### T 4F, TSH3, JER, CMP #### [place] [address] [place] #### ACTH #### [facility] , NRBC% 0.2 /100{WBC} Normal 0-0.5 [facility] Comment on above: Performed By: #### T 4F, TSH3, JER, CMP #### [place] [address] [place] #### ACTH #### [facility] , Platelet mean volume (Bld) [Entitic vol] 8.3 fL Normal 6.3-10.7 [facility] Comment on above: Performed By: #### T 4F, TSH3, JER, CMP #### [place] [address] [place] #### ACTH #### [facility] , Platelets (Bld) [#/Vol] 262 10*3/uL Normal 150-450 [facility] Comment on above: Performed By: #### T 4F, TSH3, JER, CMP #### [facility] [address] [place] [address] [place] #### ACTH #### [facility] , RBC (Bld) [#/Vol] 3.97 10*6/uL Normal 3.60-5.00 [facility] Comment on above: Performed By: #### T 4F, TSH3, JER, CMP #### [address] #### ACTH #### [facility] , WBC (Bld) [#/Vol] 6.7 10*3/uL Normal 3.8-11.6 [facility] Comment on above: Performed By: #### T 4F, TSH3, JER, CMP #### [address] #### ACTH #### [facility] , Comprehensive Metabolic Pane malcom 02-27-2024 Albumin [Mass/Vol] 3.8 g/dL Normal 3.5-5.7 [facility] Comment on above: Performed By: #### C BC, CMP #### [address] Albumin/Globulin [Mass ratio] 1.1 {ratio} Normal [facility] Comment on above: Performed By: #### C BC, CMP #### [address] ALP [Catalytic activity/Vol] 370 U/L High 34-104 [facility] Comment on above: Performed By: #### C BC, CMP #### [address] ALT [Catalytic activity/Vol] 143 U/L High 7-52 [facility] Comment on above: Performed By: #### C BC, CMP #### [address] Anion gap [Moles/Vol] 8.9 mmol/L Normal 6.0-15.0 [facility] Comment on above: Performed By: #### C BC, CMP #### [address] AST [Catalytic activity/Vol] 98 U/L High 13-39 [facility] Comment on above: Performed By: #### C BC, CMP #### [address] Bilirubin [Mass/Vol] 0.6 mg/dL Normal 0.3-1.0 [facility] Comment on above: Performed By: #### C BC, CMP #### [facility] [address] Calcium [Mass/Vol] 9.6 mg/dL Normal 8.6-10.3 [facility] Comment on above: Performed By: #### C BC, CMP #### [facility] [address] [place] [address] [place] Chloride [Moles/Vol] 97 mmol/L Low 98-107 [facility] Comment on above: Performed By: #### C BC, CMP #### [facility] [address] [place] [address] [place] CO2 [Moles/Vol] 29.6 mmol/L Normal 21.0-31.0 [facility] Comment on above: Performed By: #### C BC, CMP #### [facility] [address] [place] [address] [place] Creatinine [Mass/Vol] 0.80 mg/dL Normal 0.60-1.20 [facility] Comment on above: Performed By: #### C BC, CMP #### [facility] [address] [place] [address] [place] Creatinine Clr Calc Pharmacy 64.54 Normal [facility] Comment on above: Performed By: #### C BC, CMP #### [facility] [address] [place] [id number] [place] GFR/1.73 sq M.predicted MDRD (S/P/Bld) [Vol rate/Area] mL/min/{1.73_m2} Normal [facility] Comment on above: Performed By: #### C BC, CMP #### [facility] [address] [place] [address] [place] Globulin (S) [Mass/Vol] 3.6 g/dL Normal T he [facility] Comment on above: Performed By: #### C BC, CMP #### [facility] [address] [place] [id number] [place] Glucose [Mass/Vol] 95 mg/dL Normal 70-100 [facility] Comment on above: Result Comment: [place] om Glucose Reference Range is dependent on time and content of last meal. Glucose of more than 200 mg/dL in a nonstressed, ambulatory subject supports the diagnosis of Diabetes Mellitus. ADA recommended reference range Performed By: #### C BC, CMP #### [address] Potassium [Moles/Vol] 4.5 mmol/L Normal 3.5-5.1 [facility] Comment on above: Performed By: #### C BC, CMP #### [address] Protein [Mass/Vol] 7.4 g/dL Normal 6.4-8.9 [facility] Comment on above: Performed By: #### C BC, CMP #### [address] Sodium [Moles/Vol] 131 mmol/L Low 136-145 [facility] Comment on above: Performed By: #### C BC, CMP #### [address] Urea nitrogen [Mass/Vol] 12 mg/dL Normal 7-25 [facility] Comment on above: Performed By: #### C BC, CMP #### [address] Cortisolon 02-27-2024 Cortisol 17.4 ug/dL Normal [facility] Comment on above: Result Comment: Refe rence range: AM 6 - 24 ug/dl PM <10 ug/dl [facility] marketing information coordinator and method: [employer] DXI, POLYCLONAL ANTIBODY CORTISOL ASSAY. PERFORMED BY: [place] [id number] PATHOLOGIST [employer] PAYABLE TECHNICIAN STEFANO HOLT M.D. Performed By: #### T 4F, TSH3, JER, CMP #### [address] #### ACTH #### [facility] , No Panel InformationOrdered By: Aries Chavez on 02-27-2024 Adrenocorticotropic Hormone 39.6 pg/mL 7.2-63.3 [facility] Comment on above: ACTH reference inter wendy for samples collected between 7 and10 AM.Performed at: [facility] [address] [id number] Director: Juan Hendrikcs PhD, Phone: [phone] Random cortisol measurementO rdered By: Aries Chavez on 02-27-2024 Cortisol [Mass/Vol] 17.4 ug/dL [facility] Comment on above: [facility] marketing information coordinator and method:[email or web address] DXI, POLYCLONAL ANTIBODY CORTISOL ASSAY.Reference range: AM 6 - 24 ug/dl PM <10 ug/dl Thyrotropin [Units/volume] i n Serum or PlasmaOrdered By: Aries Chavez on 02-27-2024 TSH Qn 23.15 m[IU]/L High 0.45-5.33 [facility] Comment on above: Performed By: #### T 4F, TSH3, JER, CMP #### [facility] [address] [place] [address] [place] #### ACTH #### [facility] , Thyroxine (T4) free [Mass/vo lume] in Serum or PlasmaOrdered By: Aries Chavez on 02-27-2024 Free T4 [Mass/Vol] 0.91 ng/dL Normal 0.61-1.12 [facility] Comment on above: Performed By: #### T 4F, TSH3, JER, CMP #### [facility] [address] [place] [address] [place] #### ACTH #### [facility] , Absolute reticulocyte countO rdered By: Aries Chavez on 12-28-2023 Reticulocytes (Bld) [#/Vol] 0.068 10*6/uL 0.024-0.08 4 [facility] Alanine aminotransferase [En zymatic activity/volume] in Serum or PlasmaOrdered By: Aries Chavez on 12-28-2023 ALT [Catalytic activity/Vol] 23 U/L 7-52 [facility] Albumin [Mass/volume] in Ser um or Plasma by Bromocresol green (BCG) dye binding methoOrdered By: Aries Chavez on 12-28-2023 Albumin BCG dye [Mass/Vol] 3.8 g/dL 3.5-5.7 [facility] Alkaline phosphatase [Enzyma tic activity/volume] in Serum or PlasmaOrdered By: Arise Chavez on 12-28-2023 ALP [Catalytic activity/Vol] 93 U/L 34-104 [facility] Aspartate aminotransferase [ Enzymatic activity/volume] in Serum or PlasmaOrdered By: Aries Chavez on 12-28-2023 AST [Catalytic activity/Vol] 25 U/L 13-39 [facility] Basophils Auto (Bld) [#/Vol] Ordered By: Aries Chavez on 12-28-2023 Basophils (Bld) [#/Vol] 0.2 10*3/uL 0.0-0.2 [facility] Basophils/100 WBC Auto (Bld) Ordered By: Aries Chavez on 12-28-2023 Basophils/100 WBC (Bld) 2.8 % . [facility] [place] Bilirubin.total [Mass/volume ] in Serum or PlasmaOrdered By: Aries Chavez on 12-28-2023 Bilirubin [Mass/Vol] 0.4 mg/dL 0.3-1.0 [facility] Calcium [Mass/volume] in Ser um or PlasmaOrdered By: Aries Chavez on 12-28-2023 Calcium [Mass/Vol] 9.5 mg/dL 8.6-10.3 [facility] Carbon dioxide, total [Moles /volume] in Serum or PlasmaOrdered By: Aries Chavez on 12-28-2023 CO2 [Moles/Vol] 29.5 mmol/L 21.0-31.0 [facility] Chloride [Moles/volume] in S leena or PlasmaOrdered By: Aries Chavez on 12-28-2023 Chloride [Moles/Vol] 94 mmol/L 98-107 [facility] Creatinine [Mass/volume] in Serum or PlasmaOrdered By: Aries Chavez on 12-28-2023 Creatinine [Mass/Vol] 0.77 mg/dL 0.60-1.20 [facility] Eosinophils Auto (Bld) [#/Vo l]Ordered By: Aries Chavez on 12-28-2023 Eosinophils (Bld) [#/Vol] 0.5 10*3/uL 0.0-0.45 [facility] Eosinophils/100 WBC Auto (Bl d)Ordered By: Aries Chavez on 12-28-2023 Eosinophils/100 WBC (Bld) 6.4 % . [facility] Erythrocyte distribution wid th Auto (RBC) [Ratio]Ordered By: Aries Chavez on 12-28-2023 Erythrocyte distribution width (RBC) [Ratio] 18.2 % 11.9-15.3 [facility] Ferritin [Mass/volume] in Se rum or PlasmaOrdered By: Rogers Moon on 12-28-2023 Ferritin [Mass/Vol] 397.8 ng/mL High 11.0-306.8 [facility] Ferritin [Mass/Vol] Ferritin [Mass/volum e] in Serum or Plasma High 11.0-306.8 [facility] Folate [Mass/volume] in Seru m or PlasmaOrdered By: Aries Chavez on 12-28-2023 Folate [Mass/Vol] 13.7 ng/mL >5.9 [facility] Comment on above: Folate reference ran ge: >5.9 ng/mlThe WHO technical consultation on folate and vitamin [id number] has determined that folate concentrations lessthan 4 ng/ml are considered deficient. Folate [Mass/Vol] Folate [Mass/volume] in Serum or Plasma >5.9 [facility] Comment on above: Folate reference ran ge: >5.9 ng/mlThe WHO technical consultation on folate and vitamin [id number] has determined that folate concentrations lessthan 4 ng/ml are considered deficient. Globulin Calc (S) [Mass/Vol] Ordered By: Aries Chavez on 12-28-2023 Globulin (S) [Mass/Vol] 4.0 g/dL [facility] Glucose [Mass/volume] in Ser um or PlasmaOrdered By: Aries Chavez on 12-28-2023 Glucose [Mass/Vol] 95 mg/dL 70-100 [facility] Comment on above: ADA recommended refe rence rangeRandom Glucose Reference Range is dependent on time and content of last meal. Glucose of more than 200 mg/dL in a nonstressed, ambulatory subject supports the diagnosis of Diabetes Mellitus. Hematocrit Auto (Bld) [Volum e fraction]Ordered By: Aries Chavez on 12-28-2023 Hematocrit (Bld) [Volume fraction] 34.9 % 34.0-46.4 [facility] Hemoglobin [Mass/volume] in BloodOrdered By: Aries Chavez on 12-28-2023 Hemoglobin (Bld) [Mass/Vol] 11.4 g/dL 11.8-15.4 [facility] Iron [Mass/volume] in Serum or PlasmaOrdered By: Aries Chavez on 12-28-2023 Iron [Mass/Vol] 144 ug/dL 50-212 [facility] Iron [Mass/Vol] Iron [Mass/volume] i n Serum or Plasma 50-212 [facility] Iron binding capacity [Mass/ volume] in Serum or PlasmaOrdered By: Aries Chavez on 12-28-2023 Iron binding capacity [Mass/Vol] 311 ug/dL 255-450 [facility] Iron saturation [Mass Fracti on] in Serum or PlasmaOrdered By: Aries Chavez on 12-28-2023 Iron saturation [Mass fraction] 46.3 % 20-50 [facility] Lactate dehydrogenase [Enzym atic activity/volume] in Serum or Plasma by Lactate to pyOrdered By: Aries Chavez on 12-28-2023 LDH Lactate to pyruvate reaction [Catalytic activity/Vol] 135 U/L Low 140-271 [facility] LDH Lactate to pyruvate reaction [Catalytic activity/Vol] Lactate dehydrogenase [Enzymatic activity/volume] in Serum or Plasma by Lactate to py Low 140-271 [facility] Leukocytes [#/volume] correc gabriel for nucleated erythrocytes in Blood by Automated counOrdered By: Aries Chavez on 12-28-2023 WBC corrected for nucl RBC Auto (Bld) [#/Vol] 7.6 10*3/uL 3.8-11.6 [facility] Lymphocytes Auto (Bld) [#/Vo l]Ordered By: Aries Chavez on 12-28-2023 Lymphocytes (Bld) [#/Vol] 1.3 10*3/uL 1.00-4.8 [facility] Lymphocytes/100 WBC Auto (Bl d)Ordered By: Aries Chavez on 12-28-2023 Lymphocytes/100 WBC (Bld) 17.1 % . [facility] MCH Auto (RBC) [Entitic mass ]Ordered By: Aries Chavez on 12-28-2023 MCH (RBC) [Entitic mass] 27.4 pg 24.7-34.3 [facility] MCHC Auto (RBC) [Mass/Vol]Or dered By: Aries Chavez on 12-28-2023 MCHC (RBC) [Mass/Vol] 32.6 g/dL 32.0-35.0 [facility] MCV Auto (RBC) [Entitic vol] Ordered By: Aries Chavez on 12-28-2023 MCV (RBC) [Entitic vol] 84.1 fL 80-100 [facility] [place] Monocytes Auto (Bld) [#/Vol] Ordered By: Aries Chavez on 12-28-2023 Monocytes (Bld) [#/Vol] 0.6 10*3/uL 0.0-0.8 [facility] Monocytes/100 WBC Auto (Bld) Ordered By: Aries Chavez on 12-28-2023 Monocytes/100 WBC (Bld) 8.1 % . [facility] [place] Neutrophils Auto (Bld) [#/Vo l]Ordered By: Aries Chavez on 12-28-2023 Neutrophils (Bld) [#/Vol] 5.0 10*3/uL 1.8-7.7 [facility] Neutrophils/100 WBC Auto (Bl d)Ordered By: Aries Chavez on 12-28-2023 Neutrophils/100 WBC (Bld) 65.6 % . [facility] No Panel InformationOrdered By: Aries Chavez on 12-28-2023 Adrenocorticotropic Hormone 11.2 pg/mL 7.2-63.3 [facility] Comment on above: ACTH reference inter wendy for samples collected between 7 and10 AM.Performed at: [facility] [address] [id number] Director: Juan Hendricks PhD, Phone: [phone] Estimated GFR (CKD-EPI) > 60.0 mL/Min [facility] Creatinine Clearance (Chem 59.72 [facility] Nucleated erythrocytes [Pres ence] in Blood by Automated countOrdered By: Aries Chavez on 12-28-2023 Nucleated RBC Auto Ql (Bld) 0.1 /100{WBC} 0-0.5 [facility] Platelet mean volume Auto (B ld) [Entitic vol]Ordered By: Aries Chavez on 12-28-2023 Platelet mean volume (Bld) [Entitic vol] 8.1 fL 6.3-10.7 [facility] Platelets Auto (Bld) [#/Vol] Ordered By: Aries Chavez on 12-28-2023 Platelets (Bld) [#/Vol] 344 10*3/uL 150-450 [facility] Potassium [Moles/volume] in Serum or PlasmaOrdered By: Aries Chavez on 12-28-2023 Potassium [Moles/Vol] 4.8 mmol/L 3.5-5.1 [facility] Protein [Mass/volume] in Ser um or PlasmaOrdered By: Aries Chavez on 12-28-2023 Protein [Mass/Vol] 7.8 g/dL 6.4-8.9 [facility] RBC Auto (Bld) [#/Vol]Ordere d By: Aries Chavez on 12-28-2023 RBC (Bld) [#/Vol] 4.15 10*6/uL 3.60-5.00 [facility] Random cortisol measurementO rdered By: Aries Chavez on 12-28-2023 Cortisol [Mass/Vol] 13.7 ug/dL [facility] Comment on above: [facility] marketing information coordinator and method:[email or web address] DXI, POLYCLONAL ANTIBODY CORTISOL ASSAY.Reference range: AM 6 - 24 ug/dl PM <10 ug/dl Reticulocytes [#/volume] in BloodOrdered By: Aries Chavez on 12-28-2023 Reticulocytes (Bld) [#/Vol] Absolute reticulocyte count 0.024-0.08 4 [facility] Reticulocytes/100 RBC Auto ( Bld)Ordered By: Aries Chavez on 12-28-2023 Reticulocytes/100 RBC (Bld) 1.6 % High 0.5-1.5 [facility] Reticulocytes/100 RBC (Bld) Reticulocyte % auto High 0.5-1.5 [facility] Serum or plasma albumin/glob ulin mass ratioOrdered By: Aries Chavez on 12-28-2023 Albumin/Globulin [Mass ratio] 1.0 {ratio} [facility] Serum or plasma anion gap de terminationOrdered By: Aries Chavez on 12-28-2023 Anion gap [Moles/Vol] 9.3 mmol/L 6.0-15.0 [facility] Serum or plasma erythropoiet in (EPO) measurement (units/volume)Ordered By: Aries Chavez on 12-28-2023 Erythropoietin (EPO) Qn 3.5 mIU/mL 2.6-18.5 [facility] Comment on above: [employer] DxI 800 Immunoassay SystemValues obtained with different assay methods or kits cannotbe used interchangeably. Results cannot be interpreted asabsolute evidence of the presence or absence of malignantdisease.Performed at: [facility] [id number] Director: Juan Hendricks PhD, Phone: [phone] Erythropoietin (EPO) Qn Serum or plasma erythropoietin (EPO) measurement (units/volume) 2.6-18.5 [facility] Comment on above: [employer] DxI 800 Immunoassay SystemValues obtained with different assay methods or kits cannotbe used interchangeably. Results cannot be interpreted asabsolute evidence of the presence or absence of malignantdisease.Performed at: [employer] [address] [id number] Director: Juan Hendricks PhD, Phone: [phone] Serum or plasma iron binding capacity measurement (mass/volume)Ordered By: Aries Chavez on 12-28-2023 Iron binding capacity [Mass/Vol] Iron binding capacity [Mass/volume] in Serum or Plasma 255-450 [facility] Serum or plasma iron saturat ion measurement (mass fraction)Ordered By: Aries Chavez on 12-28-2023 Iron saturation [Mass fraction] Iron saturation [Mass Fraction] in Serum or Plasma 20-50 [facility] Sodium [Moles/volume] in Ser um or PlasmaOrdered By: Aries Chavez on 12-28-2023 Sodium [Moles/Vol] 128 mmol/L 136-145 [facility] Thyrotropin [Units/volume] i n Serum or PlasmaOrdered By: Aries Chavez on 12-28-2023 TSH Qn 18.92 m[IU]/L 0.45-5.33 [facility] Thyroxine (T4) free [Mass/vo lume] in Serum or PlasmaOrdered By: Aries Chavez on 12-28-2023 Free T4 [Mass/Vol] 0.37 ng/dL 0.61-1.12 [facility] Transferrin [Mass/volume] in Serum or PlasmaOrdered By: Aries Chavez on 12-28-2023 Transferrin [Mass/Vol] 222 mg/dL 203-362 [facility] Transferrin [Mass/Vol] Transferrin [Mass /volume] in Serum or Plasma [id number] [facility] Urea nitrogen [Mass/volume] in Serum or PlasmaOrdered By: Aries Chavez on 12-28-2023 Urea nitrogen [Mass/Vol] 14 mg/dL 04-25 [facility] Vitamin B12 ser/plasOrdered By: Aries Chavez on 12-28-2023 Cobalamin (Vitamin B12) [Mass/Vol] 333 pg/mL 180 [facility] Cobalamin (Vitamin B12) [Mass/Vol] Vitamin B12 ser/plas 180-914 [facility] WBC Auto (Bld) [#/Vol]Ordere d By: Aries Chavez on 12-28-2023 WBC (Bld) [#/Vol] 7.6 10*3/uL 3.8-11.6 [facility] Alanine aminotransferase [En zymatic activity/volume] in Serum or PlasmaOrdered By: Aries Chavez on 11-15-2023 ALT [Catalytic activity/Vol] 25 U/L [facility] Albumin [Mass/volume] in Ser um or Plasma by Bromocresol green (BCG) dye binding methoOrdered By: Aries Chavez on 11-15-2023 Albumin BCG dye [Mass/Vol] 3.3 g/dL 3.5-5.7 [facility] Alkaline phosphatase [Enzyma tic activity/volume] in Serum or PlasmaOrdered By: Aries Chavez on 11-15-2023 ALP [Catalytic activity/Vol] 109 U/L 34-104 [facility] Aspartate aminotransferase [ Enzymatic activity/volume] in Serum or PlasmaOrdered By: Aries Chavez on 11-15-2023 AST [Catalytic activity/Vol] 24 U/L 13-39 [facility] Basophils Auto (Bld) [#/Vol] Ordered By: Aries Chavez on 11-15-2023 Basophils (Bld) [#/Vol] 0.2 10*3/uL 0.0-0.2 [facility] Basophils/100 WBC Auto (Bld) Ordered By: Aries Chavez on 11-15-2023 Basophils/100 WBC (Bld) 2.9 % . [facility] [place] Bilirubin.total [Mass/volume ] in Serum or PlasmaOrdered By: Aries Chavez on 11-15-2023 Bilirubin [Mass/Vol] 0.4 mg/dL 0.3-1.0 [facility] CBC W Auto Differential pane l (Bld)on 11-15-2023 Basophils (Bld) [#/Vol] 0.2 10*3/uL 0.0 - 0.2 10*3/uL [facility] Basophils/100 WBC Manual cnt (Syn fld) 2.9 % . [facility] Eosinophils (Bld) [#/Vol] 0.4 10*3/uL 0.0 - 0.45 10*3/uL [facility] Eosinophils/100 WBC Manual cnt (Syn fld) 5.2 % . [facility] Erythrocyte distribution width (RBC) [Ratio] 16.8 % High 11.9 - 15.3 % [facility] Hematocrit (Bld) [Volume fraction] 30.3 % Low 34.0 - 46.4 % [facility] Hemoglobin (Bld) [Mass/Vol] 9.7 g/dL Low 11.8 - 15.4 g/dL [facility] Interpretation and review of laboratory results Abnormal [facility] Lymphocytes (Bld) [#/Vol] 1.7 10*3/uL 1.00 - 4.8 10*3/uL [facility] Lymphocytes/100 WBC Manual cnt (Syn fld) 25.4 % . [facility] MCH (RBC) [Entitic mass] 26.4 pg 24.7 - 34.3 pg [facility] MCHC (RBC) [Mass/Vol] 32.0 g/dL 32.0 - 35.0 g/dL [facility] MCV (RBC) [Entitic vol] 82.7 fL 80 - 100 fL [facility] Monocytes (Bld) [#/Vol] 0.8 10*3/uL 0.0 - 0.8 10*3/uL [facility] Monocytes+Macrophages/1 00 WBC Manual cnt (Syn fld) 11.6 % . [facility] Neutrophils (Bld) [#/Vol] 3.8 10*3/uL 1.8 - 7.7 10*3/uL [facility] Neutrophils/100 WBC Manual cnt (Syn fld) 54.9 % . [facility] NRBC 0.0 /100{WBC} 0 - 0.5 /100{WBC} [facility] Platelet mean volume (Bld) [Entitic vol] 7.5 fL 6.3 - 10.7 fL [facility] Platelets (Bld) [#/Vol] 509 10*3/uL High 150 - 450 10*3/uL [facility] RBC LM.HPF (Urine sed) [#/Area] 3.67 /[HPF] 3.60 - 5.00 [facility] WBC (Bld) [#/Vol] 6.9 10*3/uL 3.8 - 11.6 10*3/uL [facility] WBC LM.HPF (Urine sed) [#/Area] 6.9 10*3/uL 3.8 - 11.6 10*3/uL [facility] Calcium [Mass/volume] in Ser um or PlasmaOrdered By: Aries Chavez on 11-15-2023 Calcium [Mass/Vol] 9.8 mg/dL 8.6-10.3 [facility] Carbon dioxide, total [Moles /volume] in Serum or PlasmaOrdered By: Aries Chavez on 11-15-2023 CO2 [Moles/Vol] 28.7 mmol/L 21.0-31.0 [facility] Chloride [Moles/volume] in S leena or PlasmaOrdered By: Aries Chavez on 11-15-2023 Chloride [Moles/Vol] 101 mmol/L 98-107 [facility] Creatinine [Mass/volume] in Serum or PlasmaOrdered By: Aries Chavez on 11-15-2023 Creatinine [Mass/Vol] 0.71 mg/dL 0.60-1.20 [facility] Eosinophils Auto (Bld) [#/Vo l]Ordered By: Aries Chavez on 11-15-2023 Eosinophils (Bld) [#/Vol] 0.4 10*3/uL 0.0-0.45 [facility] Eosinophils/100 WBC Auto (Bl d)Ordered By: Aries Chavez on 11-15-2023 Eosinophils/100 WBC (Bld) 5.2 % . [facility] Erythrocyte distribution wid th Auto (RBC) [Ratio]Ordered By: Aries Chavez on 11-15-2023 Erythrocyte distribution width (RBC) [Ratio] 16.8 % 11.9-15.3 [facility] Globulin Calc (S) [Mass/Vol] Ordered By: Aries Chavez on 11-15-2023 Globulin (S) [Mass/Vol] 4.6 g/dL [facility] Glucose [Mass/volume] in Ser um or PlasmaOrdered By: Aries Chavez on 11-15-2023 Glucose [Mass/Vol] 100 mg/dL 70-100 [facility] Comment on above: ADA recommended refe rence rangeRandom Glucose Reference Range is dependent on time and content of last meal. Glucose of more than 200 mg/dL in a nonstressed, ambulatory subject supports the diagnosis of Diabetes Mellitus. Hematocrit Auto (Bld) [Volum e fraction]Ordered By: Aries Chavez on 11-15-2023 Hematocrit (Bld) [Volume fraction] 30.3 % 34.0-46.4 [facility] Hemoglobin [Mass/volume] in BloodOrdered By: Aries Chavez on 11-15-2023 Hemoglobin (Bld) [Mass/Vol] 9.7 g/dL 11.8-15.4 [facility] Leukocytes [#/volume] correc gabriel for nucleated erythrocytes in Blood by Automated counOrdered By: Aries Chavez on 11-15-2023 WBC corrected for nucl RBC Auto (Bld) [#/Vol] 6.9 10*3/uL 3.8-11.6 [facility] Lymphocytes Auto (Bld) [#/Vo l]Ordered By: Aries Chavez on 11-15-2023 Lymphocytes (Bld) [#/Vol] 1.7 10*3/uL 1.00-4.8 [facility] Lymphocytes/100 WBC Auto (Bl d)Ordered By: Aries Chavez on 11-15-2023 Lymphocytes/100 WBC (Bld) 25.4 % . [facility] MCH Auto (RBC) [Entitic mass ]Ordered By: Aries Chavez on 11-15-2023 MCH (RBC) [Entitic mass] 26.4 pg 24.7-34.3 [facility] MCHC Auto (RBC) [Mass/Vol]Or dered By: Aries Chavez on 11-15-2023 MCHC (RBC) [Mass/Vol] 32.0 g/dL 32.0-35.0 [facility] MCV Auto (RBC) [Entitic vol] Ordered By: Aries Chavez on 11-15-2023 MCV (RBC) [Entitic vol] 82.7 fL 80-100 [facility] [place] Monocytes Auto (Bld) [#/Vol] Ordered By: Aries Chavez on 11-15-2023 Monocytes (Bld) [#/Vol] 0.8 10*3/uL 0.0-0.8 [facility] Monocytes/100 WBC Auto (Bld) Ordered By: Aries Chavez on 11-15-2023 Monocytes/100 WBC (Bld) 11.6 % . [facility] [place] Neutrophils Auto (Bld) [#/Vo l]Ordered By: Aries Chavez on 11-15-2023 Neutrophils (Bld) [#/Vol] 3.8 10*3/uL 1.8-7.7 [facility] Neutrophils/100 WBC Auto (Bl d)Ordered By: Aries Chavez on 11-15-2023 Neutrophils/100 WBC (Bld) 54.9 % . [facility] No Panel InformationOrdered By: Aries Chavez on 11-15-2023 Adrenocorticotropic Hormone 27.5 pg/mL 7.2-63.3 [facility] Comment on above: ACTH reference inter wendy for samples collected between 7 and10 AM.Performed at: [facility] [place] [id number] Director: Juan Hendricks PhD, Phone: [phone] Estimated GFR (CKD-EPI) > 60.0 mL/Min [facility] Creatinine Clearance (Chem 65.11 [facility] Nucleated erythrocytes [Pres ence] in Blood by Automated countOrdered By: Aries Chavez on 11-15-2023 Nucleated RBC Auto Ql (Bld) 0.0 /100{WBC} 0-0.5 [facility] Platelet mean volume Auto (B ld) [Entitic vol]Ordered By: Aries Chavez on 11-15-2023 Platelet mean volume (Bld) [Entitic vol] 7.5 fL 6.3-10.7 [facility] Platelets Auto (Bld) [#/Vol] Ordered By: Aries Chavez on 11-15-2023 Platelets (Bld) [#/Vol] 509 10*3/uL 150-450 [facility] Potassium [Moles/volume] in Serum or PlasmaOrdered By: Aries Chavez on 11-15-2023 Potassium [Moles/Vol] 4.8 mmol/L 3.5-5.1 [facility] Protein [Mass/volume] in Ser um or PlasmaOrdered By: Aries Chavez on 11-15-2023 Protein [Mass/Vol] 7.9 g/dL 6.4-8.9 [facility] RBC Auto (Bld) [#/Vol]Ordere d By: Aries Chavez on 11-15-2023 RBC (Bld) [#/Vol] 3.67 10*6/uL 3.60-5.00 [facility] Random cortisol measurementO rdered By: Aries Chavez on 11-15-2023 Cortisol [Mass/Vol] 14.2 ug/dL [facility] Comment on above: [facility] marketing information coordinator and method:AMRITA UNICEL DXI, POLYCLONAL ANTIBODY CORTISOL ASSAY.Reference range: AM 6 - 24 ug/dl PM <10 ug/dl Serum or plasma albumin/glob ulin mass ratioOrdered By: Aries Chavez on 11-15-2023 Albumin/Globulin [Mass ratio] 0.7 {ratio} [facility] Serum or plasma anion gap de terminationOrdered By: Aries Chavez on 11-15-2023 Anion gap [Moles/Vol] 10.1 mmol/L 6.0-15.0 [facility] Sodium [Moles/volume] in Ser um or PlasmaOrdered By: Aries Chavez on 11-15-2023 Sodium [Moles/Vol] 135 mmol/L 136-145 [facility] Thyrotropin [Units/volume] i n Serum or PlasmaOrdered By: Aries Chavez on 11-15-2023 TSH Qn 0.01 m[IU]/L 0.45-5.33 [facility] Thyroxine (T4) free [Mass/vo lume] in Serum or PlasmaOrdered By: Aries Chavez on 11-15-2023 Free T4 [Mass/Vol] 2.10 ng/dL 0.61-1.12 [facility] Urea nitrogen [Mass/volume] in Serum or PlasmaOrdered By: Aries Chavez on 11-15-2023 Urea nitrogen [Mass/Vol] 16 mg/dL 7-25 [facility] WBC Auto (Bld) [#/Vol]Ordere d By: Aries Chavez on 11-15-2023 WBC (Bld) [#/Vol] 6.9 10*3/uL 3.8-11.6 [facility] Ferritin [Mass/volume] in Se rum or PlasmaOrdered By: Vannessa Perales on 10-05-2023 Ferritin [Mass/Vol] 994.8 ng/mL 11.0-306.8 [facility] Iron [Mass/volume] in Serum or PlasmaOrdered By: Vannessa Perales on 10-05-2023 Iron [Mass/Vol] 26 ug/dL 50-212 [facility] Iron binding capacity [Mass/ volume] in Serum or PlasmaOrdered By: Vannessa Perales on 10-05-2023 Iron binding capacity [Mass/Vol] 239 ug/dL 255-450 [facility] Iron saturation [Mass Fracti on] in Serum or PlasmaOrdered By: Vannessa Perales on 10-05-2023 Iron saturation [Mass fraction] 10.9 % 20-50 [facility] Transferrin [Mass/volume] in Serum or PlasmaOrdered By: Vannessa Perales on 10-05-2023 Transferrin [Mass/Vol] 171 mg/dL 203-362 [facility] Alanine aminotransferase [En zymatic activity/volume] in Serum or PlasmaOrdered By: Aries Chavez on 10-04-2023 ALT [Catalytic activity/Vol] 67 U/L 7-52 [facility] Albumin [Mass/volume] in Ser um or Plasma by Bromocresol green (BCG) dye binding methoOrdered By: Aries Chavez on 10-04-2023 Albumin BCG dye [Mass/Vol] 3.4 g/dL 3.5-5.7 [facility] Alkaline phosphatase [Enzyma tic activity/volume] in Serum or PlasmaOrdered By: Aries Chavez on 10-04-2023 ALP [Catalytic activity/Vol] 113 U/L 34-104 [facility] Aspartate aminotransferase [ Enzymatic activity/volume] in Serum or PlasmaOrdered By: Aries Chavez on 10-04-2023 AST [Catalytic activity/Vol] 22 U/L 13-39 [facility] Basophils Auto (Bld) [#/Vol] Ordered By: Aries Chavez on 10-04-2023 Basophils (Bld) [#/Vol] 0.1 10*3/uL 0.0-0.2 [facility] Basophils/100 WBC Auto (Bld) Ordered By: Aries Chavez on 10-04-2023 Basophils/100 WBC (Bld) 2.3 % . [facility] [place] Bilirubin.total [Mass/volume ] in Serum or PlasmaOrdered By: Aries Chavez on 10-04-2023 Bilirubin [Mass/Vol] 0.3 mg/dL 0.3-1.0 [facility] Calcium [Mass/volume] in Ser um or PlasmaOrdered By: Aries Chavez on 10-04-2023 Calcium [Mass/Vol] 8.9 mg/dL 8.6-10.3 [facility] Carbon dioxide, total [Moles /volume] in Serum or PlasmaOrdered By: Aries Chavez on 10-04-2023 CO2 [Moles/Vol] 26.2 mmol/L 21.0-31.0 [facility] Chloride [Moles/volume] in S leena or PlasmaOrdered By: Aries Chavez on 10-04-2023 Chloride [Moles/Vol] 94 mmol/L 98-107 [facility] Creatinine [Mass/volume] in Serum or PlasmaOrdered By: Aries Chavez on 10-04-2023 Creatinine [Mass/Vol] 0.75 mg/dL 0.60-1.20 [facility] Eosinophils Auto (Bld) [#/Vo l]Ordered By: Aries Chavez on 10-04-2023 Eosinophils (Bld) [#/Vol] 0.2 10*3/uL 0.0-0.45 [facility] Eosinophils/100 WBC Auto (Bl d)Ordered By: Aries Chavez on 10-04-2023 Eosinophils/100 WBC (Bld) 2.8 % . [facility] Erythrocyte distribution wid th Auto (RBC) [Ratio]Ordered By: Aries Chavez on 10-04-2023 Erythrocyte distribution width (RBC) [Ratio] 18.4 % 11.9-15.3 [facility] Globulin Calc (S) [Mass/Vol] Ordered By: Aries Chavez on 10-04-2023 Globulin (S) [Mass/Vol] 4.5 g/dL [facility] [place] Glucose [Mass/volume] in Ser um or PlasmaOrdered By: Aries Chavez on 10-04-2023 Glucose [Mass/Vol] 101 mg/dL 70-100 [facility] Comment on above: ADA recommended refe rence rangeRandom Glucose Reference Range is dependent on time and content of last meal. Glucose of more than 200 mg/dL in a nonstressed, ambulatory subject supports the diagnosis of Diabetes Mellitus. Hematocrit Auto (Bld) [Volum e fraction]Ordered By: Aries Chavez on 10-04-2023 Hematocrit (Bld) [Volume fraction] 26.2 % 34.0-46.4 [facility] Hemoglobin [Mass/volume] in BloodOrdered By: Aries Chavez on 10-04-2023 Hemoglobin (Bld) [Mass/Vol] 8.4 g/dL 11.8-15.4 [facility] Leukocytes [#/volume] correc gabriel for nucleated erythrocytes in Blood by Automated counOrdered By: Aries Chavez on 10-04-2023 WBC corrected for nucl RBC Auto (Bld) [#/Vol] 5.8 10*3/uL 3.8-11.6 [facility] Lymphocytes Auto (Bld) [#/Vo l]Ordered By: Aries Chavez on 10-04-2023 Lymphocytes (Bld) [#/Vol] 1.2 10*3/uL 1.00-4.8 [facility] Lymphocytes/100 WBC Auto (Bl d)Ordered By: Aries Chavez on 10-04-2023 Lymphocytes/100 WBC (Bld) 21.7 % . [facility] MCH Auto (RBC) [Entitic mass ]Ordered By: Aries Chavez on 10-04-2023 MCH (RBC) [Entitic mass] 25.3 pg 24.7-34.3 [facility] MCHC Auto (RBC) [Mass/Vol]Or dered By: Aries Chavez on 10-04-2023 MCHC (RBC) [Mass/Vol] 32.0 g/dL 32.0-35.0 [facility] MCV Auto (RBC) [Entitic vol] Ordered By: Aries Chavez on 10-04-2023 MCV (RBC) [Entitic vol] 79.1 fL 80-100 [facility] Monocytes Auto (Bld) [#/Vol] Ordered By: Aries Chavez on 10-04-2023 Monocytes (Bld) [#/Vol] 0.7 10*3/uL 0.0-0.8 [facility] Monocytes/100 WBC Auto (Bld) Ordered By: Aries Chavez on 10-04-2023 Monocytes/100 WBC (Bld) 11.5 % . [facility] [place] Neutrophils Auto (Bld) [#/Vo l]Ordered By: Aries Chavez on 10-04-2023 Neutrophils (Bld) [#/Vol] 3.6 10*3/uL 1.8-7.7 [facility] Neutrophils/100 WBC Auto (Bl d)Ordered By: Aries Chavez on 10-04-2023 Neutrophils/100 WBC (Bld) 61.7 % . [facility] No Panel InformationOrdered By: Aries Chavez on 10-04-2023 Adrenocorticotropic Hormone 25.4 pg/mL 7.2-63.3 [facility] Comment on above: ACTH reference inter wendy for samples collected between 7 and10 AM.Performed at: [facility] Director: Juan Hendricks PhD, Phone: [phone] Estimated GFR (CKD-EPI) > 60.0 mL/Min [facility] Creatinine Clearance (Chem 59.72 [facility] Nucleated erythrocytes [Pres ence] in Blood by Automated countOrdered By: Aries Chavez on 10-04-2023 Nucleated RBC Auto Ql (Bld) 0.1 /100{WBC} 0-0.5 [facility] Platelet mean volume Auto (B ld) [Entitic vol]Ordered By: Aries Chavez on 10-04-2023 Platelet mean volume (Bld) [Entitic vol] 6.8 fL 6.3-10.7 [facility] Platelets Auto (Bld) [#/Vol] Ordered By: Aries Chavez on 10-04-2023 Platelets (Bld) [#/Vol] 404 10*3/uL 150-450 [facility] Potassium [Moles/volume] in Serum or PlasmaOrdered By: Aries Chavez on 10-04-2023 Potassium [Moles/Vol] 4.7 mmol/L 3.5-5.1 [facility] Protein [Mass/volume] in Ser um or PlasmaOrdered By: Aries Chavez on 10-04-2023 Protein [Mass/Vol] 7.9 g/dL 6.4-8.9 [facility] RBC Auto (Bld) [#/Vol]Ordere d By: Aries Chavez on 10-04-2023 RBC (Bld) [#/Vol] 3.32 10*6/uL 3.60-5.00 [facility] Random cortisol measurementO rdered By: Aries Chavez on 10-04-2023 Cortisol [Mass/Vol] 12.2 ug/dL [facility] Comment on above: [facility] marketing information coordinator and method:AMRITA UNICEL DXI, POLYCLONAL ANTIBODY CORTISOL ASSAY.Reference range: AM 6 - 24 ug/dl PM <10 ug/dl Serum or plasma albumin/glob ulin mass ratioOrdered By: Aries Chavez on 10-04-2023 Albumin/Globulin [Mass ratio] 0.8 {ratio} [facility] Serum or plasma anion gap de terminationOrdered By: Aries Chavez on 10-04-2023 Anion gap [Moles/Vol] 9.5 mmol/L 6.0-15.0 [facility] Sodium [Moles/volume] in Ser um or PlasmaOrdered By: Aries Chavez on 10-04-2023 Sodium [Moles/Vol] 125 mmol/L 136-145 [facility] Thyrotropin [Units/volume] i n Serum or PlasmaOrdered By: Aries Chavez on 10-04-2023 TSH Qn 1.03 m[IU]/L 0.45-5.33 [facility] Thyroxine (T4) free [Mass/vo lume] in Serum or PlasmaOrdered By: Aries Chavez on 10-04-2023 Free T4 [Mass/Vol] 1.00 ng/dL 0.61-1.12 [facility] Urea nitrogen [Mass/volume] in Serum or PlasmaOrdered By: Aries Chavez on 10-04-2023 Urea nitrogen [Mass/Vol] 17 mg/dL 7-25 [facility] WBC Auto (Bld) [#/Vol]Ordere d By: Aries Chavez on 10-04-2023 WBC (Bld) [#/Vol] 5.8 10*3/uL 3.8-11.6 [facility] Anisocytosis LM Ql (Bld)Orde red By: Aries Chavez on 09-12-2023 Anisocytosis Ql (Bld) Moderate [facility] Anisocytosis Ql (Bld) Anisocytosis [Pres ence] in Blood by Light microscopy [facility] Automated erythrocytes count in urine sediment (number/area)Ordered By: Aries Chavez on 09-12-2023 RBC Auto (Urine sed) [#/Area] 5-9 [HPF] High 0-4 [facility] Automated leukocytes count i n urine sediment (number/area)Ordered By: Aries Chavez on 09-12-2023 WBC Auto (Urine sed) [#/Area] 5-9 [HPF] High 0-4 [facility] Bacteria [Presence] in Urine by AutomatedOrdered By: Aries Chavez on 09-12-2023 Bacteria Auto Ql (U) Bacteria [Presence] in Urine by Automated None Seen [facility] Bilirubin Test strip Ql (U)O rdered By: Aries Chavez on 09-12-2023 Bilirubin Ql (U) Bilirubin.total [Pre sence] in Urine by Test strip Negative [facility] Bilirubin Ql (U) Negative Negative [facility] Color Auto (U)Ordered By: Gregorio Chavez on 09-12-2023 Color (U) Yellow Yellow [facility] Color (U) Color of Urine by Auto Yellow [facility] Erythrocytes [#/area] in Uri ne sediment by Automated countOrdered By: Aries Chavez on 09-12-2023 RBC Auto (Urine sed) [#/Area] Erythrocytes [#/area] in Urine sediment by Automated count High 0-4 [facility] Hypochromia LM Ql (Bld)Order ed By: Aries Chavez on 09-12-2023 Hypochromia Ql (Bld) Moderate [facility] Hypochromia Ql (Bld) Hypochromia [Presen ce] in Blood by Light microscopy [facility] Ketones Auto test strip (U) [Mass/Vol]Ordered By: Aries Chavez on 09-12-2023 Ketones (U) [Mass/Vol] Negative Negative [facility] Ketones (U) [Mass/Vol] Urine ketones naomi surement by automated test strip (mass/volume) Negative [facility] - Microbiology an d Antimicrobial susceptibilityOrdered By: Aries Chavez on 09-12-2023 Bacteria identified Cx Nom (U) [facility] Bacteria identified Cx Nom (U) [facility] - UrinalysisOrder ed By: Aries Chavez on 09-12-2023 Hyaline casts LM Ql (Urine sed) 0-8 [LPF] 0-8 [facility] Leukocytes [#/area] in Urine sediment by Automated countOrdered By: Aries Chavez on 09-12-2023 WBC Auto (Urine sed) [#/Area] Leukocytes [#/area] in Urine sediment by Automated count High 0-4 [facility] Microcytes LM Ql (Bld)Ordere d By: Aries Chavez on 09-12-2023 Microcytes Ql (Bld) Slight [facility] Microcytes Ql (Bld) Microcytes [Presence ] in Blood by Light microscopy [facility] Nitrite Test strip Ql (U)Ord ered By: Aries Chavez on 09-12-2023 Nitrite Ql (U) Nitrite [Presence] i n Urine by Test strip Negative [facility] Nitrite Ql (U) Negative Negative [facility] No Panel InformationOrdered By: Aries Chavez on 09-12-2023 Adrenocorticotropic Hormone 33.9 pg/mL 7.2-63.3 [facility] Comment on above: ACTH reference inter wendy for samples collected between 7 and10 AM.Performed at: - [facility] [id number] Director: Juan Hendricks PhD, Phone: [phone] Ovalocyte detectionOrdered B y: Aries Chavez on 09-12-2023 Ovalocytes LM Ql (Bld) Slight Fi [facility] Ovalocytes LM Ql (Bld) Ovalocyte detection [facility] Platelet adequacy [Presence] in Blood by Light microscopyOrdered By: Aries Chavez on 09-12-2023 Platelets LM Ql (Bld) Normal Normal [facility] Platelets LM Ql (Bld) Platelet adequacy [Presence] in Blood by Light microscopy Normal [facility] Platelet morphology finding [Identifier] in BloodOrdered By: Aries Chavez on 09-12-2023 Platelet morphology finding Nom (Bld) Normal Normal [facility] Platelet morphology finding Nom (Bld) Platelet morphology finding [Identifier] in Blood Normal [facility] Poikilocytosis [Presence] in Blood by Light microscopyOrdered By: Aries Chavez on 09-12-2023 Poikilocytosis LM Ql (Bld) Slight [facility] Poikilocytosis LM Ql (Bld) Poikilocytosis [Presence] in Blood by Light microscopy [facility] Polychromasia [Presence] in Blood by Light microscopyOrdered By: Arise Chavez on 09-12-2023 Polychromasia LM Ql (Bld) Slight [facility] Polychromasia LM Ql (Bld) Polychromasia [Presence] in Blood by Light microscopy [facility] Protein Auto test strip (U) [Mass/Vol]Ordered By: Aries Chavez on 09-12-2023 Protein (U) [Mass/Vol] 100 mg/dL High Negative [facility] Protein (U) [Mass/Vol] Urine protein naomi surement by automated test strip (mass/volume) High Negative [facility] RBC morphologyOrdered By: Gregorio Chavez on 09-12-2023 RBC morphology finding Nom (Bld) N/A [facility] RBC morphology finding Nom (Bld) RBC morphology [facility] Specific gravity Auto test s trip (U) [Rel density]Ordered By: Aries Chavez on 09-12-2023 Specific gravity (U) [Rel density] 1.012 1.001-1.03 0 [facility] Specific gravity (U) [Rel density] Specific gravity of Urine by Automated test strip 1.001-1.03 0 [facility] Squamous epithelial cells de tection in urine sediment by light microscopyOrdered By: Aries Chavez on 09-12-2023 Epithelial cells.squamous LM Ql (Urine sed) None seen [HPF] 0-2 [facility] Epithelial cells.squamous LM Ql (Urine sed) Squamous epithelial cells detection in urine sediment by light microscopy 0-2 [facility] Urine bacteria detection by automated methodOrdered By: Aries Chavez on 09-12-2023 Bacteria Auto Ql (U) None seen None Seen [facility] Urine clarity by refractomet ry automatedOrdered By: Aries Chavez on 09-12-2023 Clarity Refractometry automated (U) Clear Clear [facility] Clarity Refractometry automated (U) Urine clarity by refractometry automated Clear [facility] Urine culture routineOrdered By: Aries Chavez on 09-12-2023 Bacteria identified Cx Nom (U) 2 Days [facility] Bacteria identified Cx Nom (U) 2 Days [facility] Urine glucose measurement by automated test strip (mass/volume)Ordered By: Aries Chavez on 09-12-2023 Glucose Auto test strip (U) [Mass/Vol] Normal mg/dL Normal [facility] Glucose Auto test strip (U) [Mass/Vol] Urine glucose measurement by automated test strip (mass/volume) Normal [facility] Urine hemoglobin detection b y automated test stripOrdered By: Aries Chavez on 09-12-2023 Hemoglobin Auto test strip Ql (U) 2+ High Negative [facility] Hemoglobin Auto test strip Ql (U) Urine hemoglobin detection by automated test strip High Negative [facility] Urine leukocyte esterase det ection by automated test stripOrdered By: Aries Chavez on 09-12-2023 Leukocyte esterase Auto test strip Ql (U) 2+ High Negative [facility] Leukocyte esterase Auto test strip Ql (U) Urine leukocyte esterase detection by automated test strip High Negative [facility] Urobilinogen Auto test strip (U) [Mass/Vol]Ordered By: Aries Chavez on 09-12-2023 Urobilinogen (U) [Mass/Vol] Normal mg/dL Normal [facility] Urobilinogen (U) [Mass/Vol] Urine urobilinogen measurement by automated test strip (mass/volume) Normal [facility] Whole blood hypersegmented n eutrophils detection by light microscopyOrdered By: Aries Chavez on 09-12-2023 Neutrophils.hypersegmen gabriel LM Ql (Bld) Slight [facility] Neutrophils.hypersegmen gabriel LM Ql (Bld) Whole blood hypersegmented neutrophils detection by light microscopy [facility] Yeast detection in urine sed iment by light microscopyOrdered By: Aries Chavez on 09-12-2023 Yeast LM Ql (Urine sed) None seen [HPF] None Se en [facility] Yeast LM Ql (Urine sed) Yeast detection in urine sediment by light microscopy None Seen [facility] pH Auto test strip (U)Ordere d By: Aries Chavez on 09-12-2023 pH (U) 6.0 [pH] 5.0-9.0 [facility] pH (U) Urine pH measurement by automated test strip 5.0-9.0 [facility] Activated partial thrombopla stin time (aPTT) in platelet poor plasma by coagulation aOrdered By: Aries Chavez on 08-22-2023 aPTT Coag (PPP) [Time] 28.9 s 25.1-36.5 [facility] Comment on above: A hematocrit value g reater than 55% may lead to inaccurate results in coagulation testing. Patients having hematocrit values >55% require a special collection tube for coagulation studies. Please contact the laboratory at [phone] for redraw instructions. INR in Platelet poor plasma by Coagulation assayOrdered By: Aries Chavez on 08-22-2023 INR Coag (PPP) [Relative time] 1.1 {INR} [facility] Comment on above: INR Therapeutic Rang [...] 4.5 Platelets Auto (Bld) [#/Vol] Ordered By: Areis Chavez on 08-22-2023 Platelets (Bld) [#/Vol] 368 10*3/uL 150-450 [facility] Prothrombin time (PT)Ordered By: Aries Chavez on 08-22-2023 PT Coag (PPP) [Time] 13.1 s 9.0-12.9 [facility] Comment on above: A hematocrit value g reater than 55% may lead to inaccurate results in coagulation testing. Patients having hematocrit values >55% require a special collection tube for coagulation studies. Please contact the laboratory at [phone] for redraw instructions. Alanine aminotransferase [En zymatic activity/volume] in Serum or PlasmaOrdered By: Aries Chavez on 07-31-2023 ALT [Catalytic activity/Vol] 40 U/L 7-52 [facility] Albumin [Mass/volume] in Ser um or Plasma by Bromocresol green (BCG) dye binding methoOrdered By: Aries Chavez on 07-31-2023 Albumin BCG dye [Mass/Vol] 3.7 g/dL 3.5-5.7 [facility] Alkaline phosphatase [Enzyma tic activity/volume] in Serum or PlasmaOrdered By: Aries Chavez on 07-31-2023 ALP [Catalytic activity/Vol] 91 U/L 34-104 [facility] Aspartate aminotransferase [ Enzymatic activity/volume] in Serum or PlasmaOrdered By: Aries Chavez on 07-31-2023 AST [Catalytic activity/Vol] 12 U/L 13-39 [facility] Automated erythrocytes count in urine sediment (number/area)Ordered By: Aries Chavez on 07-31-2023 RBC Auto (Urine sed) [#/Area] 5-9 [HPF] 0-4 [facility] Automated leukocytes count i n urine sediment (number/area)Ordered By: Aries Chavez on 07-31-2023 WBC Auto (Urine sed) [#/Area] None seen [HPF] 0-4 [facility] Basophils Auto (Bld) [#/Vol] Ordered By: Aries Chavez on 07-31-2023 Basophils (Bld) [#/Vol] 0.2 10*3/uL 0.0-0.2 [facility] Basophils/100 WBC Auto (Bld) Ordered By: Aries Chavez on 07-31-2023 Basophils/100 WBC (Bld) 2.0 % . [facility] Bilirubin Test strip Ql (U)O rdered By: Aries Chavez on 07-31-2023 Bilirubin Ql (U) See comment Negative [facility] Comment on above: Unable to obtain acc urate result due to color interference. Bilirubin.total [Mass/volume ] in Serum or PlasmaOrdered By: Aries Chavez on 07-31-2023 Bilirubin [Mass/Vol] 0.4 mg/dL 0.3-1.0 [facility] Calcium [Mass/volume] in Ser um or PlasmaOrdered By: Aries Chavez on 07-31-2023 Calcium [Mass/Vol] 9.6 mg/dL 8.6-10.3 [facility] Carbon dioxide, total [Moles /volume] in Serum or PlasmaOrdered By: Aries Chavez on 07-31-2023 CO2 [Moles/Vol] 24.3 mmol/L 21.0-31.0 [facility] Chloride [Moles/volume] in S leena or PlasmaOrdered By: Aries Chavez on 07-31-2023 Chloride [Moles/Vol] 94 mmol/L 98-107 [facility] Color Auto (U)Ordered By: Gregorio Chavez on 07-31-2023 Color (U) Elayne Yellow [facility] Creatinine [Mass/volume] in Serum or PlasmaOrdered By: Aries Chavez on 07-31-2023 Creatinine [Mass/Vol] 0.91 mg/dL 0.60-1.20 [facility] Eosinophils Auto (Bld) [#/Vo l]Ordered By: Aries Chavez on 07-31-2023 Eosinophils (Bld) [#/Vol] 0.1 10*3/uL 0.0-0.45 [facility] Eosinophils/100 WBC Auto (Bl d)Ordered By: Aries Chavez on 07-31-2023 Eosinophils/100 WBC (Bld) 1.8 % . [facility] Erythrocyte distribution wid th Auto (RBC) [Ratio]Ordered By: Aries Chavez on 07-31-2023 Erythrocyte distribution width (RBC) [Ratio] 15.4 % 11.9-15.3 [facility] Ferritin [Mass/volume] in Se rum or PlasmaOrdered By: Aries Chavez on 07-31-2023 Ferritin [Mass/Vol] 342.0 ng/mL 11.0-306.8 [facility] Globulin Calc (S) [Mass/Vol] Ordered By: Aries Chavez on 07-31-2023 Globulin (S) [Mass/Vol] 4.6 g/dL [facility] [place] Glucose [Mass/volume] in Ser um or PlasmaOrdered By: Aries Chavez on 07-31-2023 Glucose [Mass/Vol] 105 mg/dL 70-100 [facility] Comment on above: ADA recommended refe rence rangeRandom Glucose Reference Range is dependent on time and content of last meal. Glucose of more than 200 mg/dL in a nonstressed, ambulatory subject supports the diagnosis of Diabetes Mellitus. Hematocrit Auto (Bld) [Volum e fraction]Ordered By: Aries Chavez on 07-31-2023 Hematocrit (Bld) [Volume fraction] 22.5 % 34.0-46.4 [facility] Hemoglobin [Mass/volume] in BloodOrdered By: Aries Chavez on 07-31-2023 Hemoglobin (Bld) [Mass/Vol] 7.3 g/dL 11.8-15.4 [facility] Iron [Mass/volume] in Serum or PlasmaOrdered By: Aries Chavez on 07-31-2023 Iron [Mass/Vol] 24 ug/dL 50-212 [facility] Iron binding capacity [Mass/ volume] in Serum or PlasmaOrdered By: Aries Chavez on 07-31-2023 Iron binding capacity [Mass/Vol] 304 ug/dL 255-450 [facility] Iron saturation [Mass Fracti on] in Serum or PlasmaOrdered By: Aries Chavez on 07-31-2023 Iron saturation [Mass fraction] 7.9 % 20-50 [facility] Ketones Auto test strip (U) [Mass/Vol]Ordered By: Aries Chavez on 07-31-2023 Ketones (U) [Mass/Vol] See comment Negative [facility] [place] Comment on above: Unable to obtain acc urate result due to color interference. Laboratory - Microbiology an d Antimicrobial susceptibilityOrdered By: Aries Chavez on 07-31-2023 Bacteria identified Cx Nom (U) [facility] Bacteria identified Cx Nom (U) [facility] Laboratory - UrinalysisOrder ed By: Aries Chavez on 07-31-2023 Hyaline casts LM Ql (Urine sed) None seen [LPF] 0-8 [facility] Leukocytes [#/volume] correc gabriel for nucleated erythrocytes in Blood by Automated counOrdered By: Aries Chavez on 07-31-2023 WBC corrected for nucl RBC Auto (Bld) [#/Vol] 8.2 10*3/uL 3.8-11.6 [facility] Lymphocytes Auto (Bld) [#/Vo l]Ordered By: Aries Chavez on 07-31-2023 Lymphocytes (Bld) [#/Vol] 1.8 10*3/uL 1.00-4.8 [facility] Lymphocytes/100 WBC Auto (Bl d)Ordered By: Aries Chavez on 07-31-2023 Lymphocytes/100 WBC (Bld) 22.3 % . [facility] MCH Auto (RBC) [Entitic mass ]Ordered By: Aries Chavez on 07-31-2023 MCH (RBC) [Entitic mass] 22.8 pg 24.7-34.3 [facility] MCHC Auto (RBC) [Mass/Vol]Or dered By: Aries Chavez on 07-31-2023 MCHC (RBC) [Mass/Vol] 32.3 g/dL 32.0-35.0 [facility] MCV Auto (RBC) [Entitic vol] Ordered By: Aries Chavez on 07-31-2023 MCV (RBC) [Entitic vol] 70.8 fL 80-100 [facility] [place] Monocytes Auto (Bld) [#/Vol] Ordered By: Aries Chavez on 07-31-2023 Monocytes (Bld) [#/Vol] 0.7 10*3/uL 0.0-0.8 [facility] Monocytes/100 WBC Auto (Bld) Ordered By: Aries Chavez on 07-31-2023 Monocytes/100 WBC (Bld) 8.2 % . [facility] [place] Neutrophils Auto (Bld) [#/Vo l]Ordered By: Aries Chavez on 07-31-2023 Neutrophils (Bld) [#/Vol] 5.4 10*3/uL 1.8-7.7 [facility] Neutrophils/100 WBC Auto (Bl d)Ordered By: Aries Chavez on 07-31-2023 Neutrophils/100 WBC (Bld) 65.7 % . [facility] Nitrite Test strip Ql (U)Ord ered By: Aries Chavez on 07-31-2023 Nitrite Ql (U) See comment Negative [facility] Comment on above: Unable to obtain acc urate result due to color interference. No Panel InformationOrdered By: Aries Chavez on 07-31-2023 Estimated GFR (CKD-EPI) > 60.0 mL/Min [facility] Creatinine Clearance (Chem 53.24 [facility] Nucleated erythrocytes [Pres ence] in Blood by Automated countOrdered By: Aries Chavez on 07-31-2023 Nucleated RBC Auto Ql (Bld) 0.1 /100{WBC} 0-0.5 [facility] Platelet mean volume Auto (B ld) [Entitic vol]Ordered By: Aries Chavez on 07-31-2023 Platelet mean volume (Bld) [Entitic vol] 7.7 fL 6.3-10.7 [facility] Platelets Auto (Bld) [#/Vol] Ordered By: Aries Chavez on 07-31-2023 Platelets (Bld) [#/Vol] 487 10*3/uL 150-450 [facility] Potassium [Moles/volume] in Serum or PlasmaOrdered By: Aries Chavez on 07-31-2023 Potassium [Moles/Vol] 5.3 mmol/L 3.5-5.1 [facility] Protein Auto test strip (U) [Mass/Vol]Ordered By: Aries Chavez on 07-31-2023 Protein (U) [Mass/Vol] See comment Negative [facility] [place] Comment on above: Unable to obtain acc urate result due to color interference. Protein [Mass/volume] in Ser um or PlasmaOrdered By: Aries Chavez on 07-31-2023 Protein [Mass/Vol] 8.3 g/dL 6.4-8.9 [facility] RBC Auto (Bld) [#/Vol]Ordere d By: Aries Chavez on 07-31-2023 RBC (Bld) [#/Vol] 3.18 10*6/uL 3.60-5.00 [facility] Serum or plasma albumin/glob ulin mass ratioOrdered By: Aries Chavez on 07-31-2023 Albumin/Globulin [Mass ratio] 0.8 {ratio} [facility] Serum or plasma anion gap de terminationOrdered By: Aries Chavez on 07-31-2023 Anion gap [Moles/Vol] 14.0 mmol/L 6.0-15.0 [facility] Sodium [Moles/volume] in Ser um or PlasmaOrdered By: Aries Chavez on 07-31-2023 Sodium [Moles/Vol] 127 mmol/L 136-145 [facility] Specific gravity Auto test s trip (U) [Rel density]Ordered By: Aries Chavez on 07-31-2023 Specific gravity (U) [Rel density] 1.015 1.001-1.03 0 [facility] Squamous epithelial cells de tection in urine sediment by light microscopyOrdered By: Aries Chavez on 07-31-2023 Epithelial cells.squamous LM Ql (Urine sed) 0-1 [HPF] 0-2 [facility] Transferrin [Mass/volume] in Serum or PlasmaOrdered By: Aries Chavez on 07-31-2023 Transferrin [Mass/Vol] 217 mg/dL 203-362 [facility] Urea nitrogen [Mass/volume] in Serum or PlasmaOrdered By: Aries Chavez on 07-31-2023 Urea nitrogen [Mass/Vol] 15 mg/dL 7-25 [facility] Urine bacteria detection by automated methodOrdered By: Aries Chavez on 07-31-2023 Bacteria Auto Ql (U) None seen None Seen [facility] Urine clarity by refractomet ry automatedOrdered By: Aries Chavez on 07-31-2023 Clarity Refractometry automated (U) Turbid Clear [facility] Urine culture routineOrdered By: Aries Chavez on 07-31-2023 Bacteria identified Cx Nom (U) 2 Days [facility] Bacteria identified Cx Nom (U) 2 Days [facility] Urine glucose measurement by automated test strip (mass/volume)Ordered By: Aries Chavez on 07-31-2023 Glucose Auto test strip (U) [Mass/Vol] See comment Normal [facility] Comment on above: Unable to obtain acc urate result due to color interference. Urine hemoglobin detection b y automated test stripOrdered By: Aries Chavez on 07-31-2023 Hemoglobin Auto test strip Ql (U) See comment Negative [facility] Comment on above: Unable to obtain acc urate result due to color interference. Urine leukocyte esterase det ection by automated test stripOrdered By: Aries Chavez on 07-31-2023 Leukocyte esterase Auto test strip Ql (U) See comment Negative [facility] Comment on above: Unable to obtain acc urate result due to color interference. Urobilinogen Auto test strip (U) [Mass/Vol]Ordered By: Aries Chavez on 07-31-2023 Urobilinogen (U) [Mass/Vol] See comment Normal [facility] Comment on above: Unable to obtain acc urate result due to color interference. WBC Auto (Bld) [#/Vol]Ordere d By: Aries Chavez on 07-31-2023 WBC (Bld) [#/Vol] 8.2 10*3/uL 3.8-11.6 [facility] pH Auto test strip (U)Ordere d By: Aries Chavez on 07-31-2023 pH (U) See comment 5.0-9.0 [facility] Comment on above: Unable to obtain acc urate result due to color interference. PROF CHEM 8 (BAS METB)on Anion gap [Moles/Vol] 13.5 mmol/L Normal Th [facility] Comment on above: Performed By: #### N A #### [facility] [address] [place] [address] Dr. Allen Smith Calcium [Mass/Vol] 9.6 mg/dL Normal 8.5-10.1 [facility] Comment on above: Performed By: #### N A #### [facility] [address] [place] [address] Dr. Allen Smith Chloride [Moles/Vol] 95 mmol/L Critically low 98-107 [facility] Comment on above: Performed By: #### N A #### [facility] [address] [place] [address] Dr. Allen Smith CO2 [Moles/Vol] 27.1 mmol/L Normal 21.0-32.0 [facility] Comment on above: Performed By: #### N A #### [facility] [address] [place] [address] Dr. Allen Smith Creatinine [Mass/Vol] 0.93 mg/dL Normal 0.55-1.02 [facility] Comment on above: Performed By: #### N A #### [facility] [address] [place] [address] Dr. Allen Smith EGFR-AF TURKS AND CAICOS ISLANDER >60 Normal >=60 [facility] Comment on above: Performed By: #### N A #### [facility] [address] [place] [address] Dr. Allen Smith EGFR-NON AF TURKS AND [place] ISLANDER 60 mL/min/1.73m2 Normal >=60 [facility] Comment on above: Performed By: #### N A #### [facility] [address] [address] [address] Allen Smith Glucose [Mass/Vol] 123 mg/dL Critically high 74-106 [facility] Comment on above: Performed By: #### N A #### [facility] [address] [place] [address] Dr. Allen Smith Potassium [Moles/Vol] 4.6 mmol/L Normal 3.5-5.1 [facility] Comment on above: Performed By: #### N A #### [facility] [address] [place] [address] Dr. Allen Smith Sodium [Moles/Vol] 131 mmol/L Critically low 136-145 Th [facility] Comment on above: Performed By: #### N A #### [facility] [address] [place] [address] Dr. Allen Smith Urea nitrogen [Mass/Vol] 8.0 mg/dL Normal 7.0-18.0 [facility] Comment on above: Performed By: #### N A #### [facility] [address] [place] [address] Dr. Allen Smith Urea nitrogen/Creatinine [Mass ratio] 8.6 mg/mg Normal [facility] Comment on above: Performed By: #### N A #### [facility] [address] [place] [address] Dr. Allen Smith BNPon 02-07-2023 Natriuretic peptide B (Bld) [Mass/Vol] 1572.0 pg/mL Critically high <=900.0 [facility] Comment on above: Performed By: #### N A #### [facility] [address] [place] [address] Dr. Allen Smith CBC AUTO DIFFon 02-07-2023 BASO # 0.1 103/ul Normal 0.0-0.1 [facility] Comment on above: Performed By: #### C BC #### [facility] [address] [place] [address] Dr. Allen Smith Basophils/100 WBC (Bld) 0.7 % Normal 0.2-2.0 [facility] Comment on above: Performed By: #### C BC #### [facility] [address] [place] [address] Dr. Allen Smith EO # 0.2 103/ul Normal 0.0-0.7 [facility] Comment on above: Performed By: #### C BC #### [facility] [address] [place] [address] Dr. Allen Smith Eosinophils/100 WBC (Bld) 2.8 % Normal 0.9-7.0 [facility] Comment on above: Performed By: #### C BC #### [facility] [address] [place] [address] Dr. Allen Smith Erythrocyte distribution width (RBC) [Ratio] 15.2 % Critically high 11.0-15.0 [facility] Comment on above: Performed By: #### C BC #### [facility] [address] [place] [address] Dr. Allen Smith Hematocrit (Bld) [Volume fraction] 29.9 % Critically low 36.0-48.0 [facility] Comment on above: Performed By: #### C BC #### [facility] [address] [place] [address] Dr. Allen Smith Hemoglobin (Bld) [Mass/Vol] 9.4 g/dL Critically low 12.0-16.0 [facility] Comment on above: Performed By: #### C BC #### [facility] [address] [place] [address] Dr. Allen Smith IG # 0.03 10e3/ul Normal 0.00-0.03 [facility] Comment on above: Performed By: #### C BC #### [facility] [address] [place] [address] Dr. Allen Smith IG % 0.4 % Normal 0.0-0.5 [facility] Comment on above: Performed By: #### C BC #### [facility] [address] [place] [address] Dr. Allen Smith LYMPH # 1.5 103/ul Normal 1.2-3.[address] [facility] Comment on above: Performed By: #### C BC #### [facility] [address] [place] [address] Dr. Allen Smith Lymphocytes/100 WBC (Bld) 18.0 % Critically low 20.5-60.0 [facility] Comment on above: Performed By: #### C BC #### [facility] [address] [place] [address] Dr. Allen Smith MANUAL DIFF REQ NO Normal [facility] Comment on above: Performed By: #### C BC #### [facility] [address] [place] [address] Dr. Allen Smith MCH (RBC) [Entitic mass] 24.7 pg Critically low 26.7-34.0 [facility] Comment on above: Performed By: #### C BC #### [facility] [address] [place] [address] Dr. Allen Smith MCHC (RBC) [Mass/Vol] 31.4 g/dL Normal 29.9-35.2 [facility] Comment on above: Performed By: #### C BC #### [facility] [address] [place] [address] Dr. Allen Smith MCV (RBC) [Entitic vol] 78.7 fL Critically low 81.0-99. 0 [facility] Comment on above: Performed By: #### C BC #### [facility] [address] [place] [address] Dr. Allen Smith MONO # 0.8 103/ul Normal 0.3-0.8 [facility] Comment on above: Performed By: #### C BC #### [facility] [address] [place] [address] Dr. Allen Smith Monocytes/100 WBC (Bld) 9.5 % Normal 1.7-12.0 [facility] Comment on above: Performed By: #### C BC #### [facility] [address] [place] [address] Dr. Allen Smith NEUT # 5.7 103/ul Normal 1.4-6.5 [facility] Comment on above: Performed By: #### C BC #### [facility] [address] [place] [address] Dr. Allen Smith Neutrophils/100 WBC (Bld) 68.6 % Normal 43.0-75.0 [facility] Comment on above: Performed By: #### C BC #### [facility] [address] [place] [address] Dr. lAlen Smith Platelet mean volume (Bld) [Entitic vol] 10.2 fL Normal 9.5-13.5 [facility] Comment on above: Performed By: #### C BC #### [facility] [address] [place] [address] Dr. Allen Smith PLT 324 103/ul Normal 150-[address] [facility] Comment on above: Performed By: #### C BC #### [facility] [address] [place] [address] Dr. Allen Smith RBC 3.80 106/ul Critically low 4.20-5.40 [facility] Comment on above: Performed By: #### C BC #### [facility] [address] [place] [address] Dr. Allen Smith WBC 8.3 103/ul Normal 4.0-11.0 [facility] Comment on above: Performed By: #### C BC #### [facility] [address] [place] [address] Dr. Allen Smith PROF CHEM 8 (BAS METB)on Anion gap [Moles/Vol] 7.5 mmol/L Normal [facility] Comment on above: Performed By: #### N A #### [facility] [address] [place] [address] Dr. Allen Smith Calcium [Mass/Vol] 9.1 mg/dL Normal 8.5-10.1 [facility] Comment on above: Performed By: #### N A #### [facility] [address] [place] [address] Dr. Allen Smith Chloride [Moles/Vol] 97 mmol/L Critically low 98-[address] [facility] Comment on above: Performed By: #### N A #### [facility] [address] [place] [address] Dr. Allen Smith CO2 [Moles/Vol] 30.9 mmol/L Normal 21.0-32.[address] [facility] Comment on above: Performed By: #### N A #### [facility] [address] [place] [address] Dr. Allen Smith Creatinine [Mass/Vol] 0.84 mg/dL Normal 0.55-1.02 [facility] Comment on above: Performed By: #### N A #### [facility] [address] [address] [address] Allen Smith EGFR-AF TURKS AND CAICOS ISLANDER >60 Normal >=60 [facility] Comment on above: Performed By: #### N A #### [facility] [address] [place] [address] Dr. Allen Smith EGFR-NON AF TURKS AND CAICOS ISLANDER >60 Normal >=60 [facility] Comment on above: Performed By: #### N A #### [facility] [address] [address] [address] Allen Smith Glucose [Mass/Vol] 111 mg/dL Critically high 74-106 T [facility] Comment on above: Performed By: #### N A #### [facility] [address] [place] [address] Dr. Allen Smith Potassium [Moles/Vol] 4.4 mmol/L Normal 3.5-5.1 [facility] Comment on above: Performed By: #### N A #### [facility] [address] [place] [address] Dr. Allen Smith Sodium [Moles/Vol] 131 mmol/L Critically low 136-145 Th [facility] Comment on above: Performed By: #### N A #### [facility] [address] [place] [address] Dr. Allen Smith Urea nitrogen [Mass/Vol] 8.0 mg/dL Normal 7.0-18.0 [facility] Comment on above: Performed By: #### N A #### [facility] [address] [place] [address] Dr. Allen Smith Urea nitrogen/Creatinine [Mass ratio] 9.5 mg/mg Normal [facility] Comment on above: Performed By: #### N A #### [facility] [address] [place] [address] Dr. Allen Smith BLOOD GASES BTYon 01-25-2023 02 MODE VENTILATOR Normal [facility] Comment on above: Performed By: #### A BG #### [facility] [address] [place] [address] Dr. Allen Smith ALLENTony TEST Positive [facility] Comment on above: Performed By: #### A BG #### [facility] [address] [place] [address] Dr. Allen Smith Base excess Calc (Bld) [Moles/Vol] -2.5000 mmol/L Critically low -2.0-2.0 [facility] Comment on above: Performed By: #### A BG #### [facility] [address] [place] [address] Dr. Allen Smith BIPAP PRESSURE [facility] Comment on above: Performed By: #### A BG #### [facility] [address] [place] [address] Dr. Allen Smith CPAP [facility] Comment on above: Performed By: #### A BG #### [facility] [address] [place] [address] Dr. Allen Smith FIO2 40.00 % [facility] Comment on above: Performed By: #### A BG #### [facility] [address] [place] [address] Dr. Allen Smith HCO3 (Bld) [Moles/Vol] 24.1 mmol/L Normal 22.0-26.0 T [facility] Comment on above: Performed By: #### A BG #### [facility] [address] [place] [address] Dr. Allen Smith LPM [facility] Comment on above: Performed By: #### A BG #### [facility] [address] [place] [address] Dr. Allen Smith MINUTE VOLUME [facility] Comment on above: Performed By: #### A BG #### [facility] [address] [place] [address] Dr. Allen Smith Oxygen (Bld) [Partial pressure] 85.1 mm[Hg] Normal 80.0-100.0 [facility] Comment on above: Performed By: #### A BG #### [facility] [address] [place] [address] Dr. Allen Smith Oxygen saturation in Blood 96.2 % Normal 95.0-100.0 [facility] Comment on above: Performed By: #### A BG #### [facility] [address] [place] [address] Dr. Allen Smith PCO2 50.1 mmHg Critically high 35.0-45.0 [facility] Comment on above: Performed By: #### A BG #### [facility] [address] [place] [address] Dr. Allen Smith PEEP 5 [facility] Comment on above: Performed By: #### A BG #### [facility] [address] [place] [address] Dr. Allen Smith pH (Bld) 7.290 [pH] Critically low 7.350-7.45 0 [facility] Comment on above: Performed By: #### A BG #### [facility] [address] [place] [address] Dr. Allen Smith PIP [facility] Comment on above: Performed By: #### A BG #### [facility] [address] [place] [address] Dr. Allen Smith PS [facility] Comment on above: Performed By: #### A BG #### [facility] [address] [place] [address] Dr. Allen Smith PUNCTURE SITE RR [facility] Comment on above: Performed By: #### A BG #### [facility] [address] [place] [address] Dr. Allen Smith RATE 12 bpm [facility] Comment on above: Performed By: #### A BG #### [facility] [address] [place] [address] Dr. Allen Smith VENT MODE ac [facility] Comment on above: Performed By: #### A BG #### [facility] [address] [place] [address] Dr. Allen Smith VT 450 ML [facility] Comment on above: Result Comment: Prev iously reported as: 400 On 01/25/2023 17:03 By GC1 Performed By: #### A BG #### [facility] [address] [place] [address] Dr. Allen Smith 02 MODE NASAL CANNULA [facility] Comment on above: Performed By: #### T SH #### [facility] [address] [place] [address] Dr. Allen Smith ALLENS TEST Positive [facility] Comment on above: Performed By: #### T SH #### [facility] [address] [place] [address] Dr. Allen Smith Base excess Calc (Bld) [Moles/Vol] -2.9000 mmol/L Critically low -2.0-2.0 [facility] Comment on above: Performed By: #### T SH #### [facility] [address] [place] [address] Dr. Allen Smith BIPAP PRESSURE [facility] Comment on above: Performed By: #### T SH #### [facility] [address] [place] [address] Dr. Allen Smith CPAP [facility] Comment on above: Performed By: #### T SH #### [facility] [address] [place] [address] Dr. Allen Smith FIO2 [facility] Comment on above: Performed By: #### T SH #### [facility] [address] [place] [address] Dr. Allen Smith HCO3 (Bld) [Moles/Vol] 24.2 mmol/L Normal 22.0-26.0 [facility] Comment on above: Performed By: #### T SH #### [facility] [address] [place] [address] Dr. Allen Smith LPM 2 [facility] Comment on above: Performed By: #### T SH #### [facility] [address] [place] [address] Dr. Allen Smith MINUTE VOLUME [facility] Comment on above: Performed By: #### T SH #### [facility] [address] [place] [address] Dr. Allen Smith Oxygen (Bld) [Partial pressure] 70.6 mm[Hg] Critically low 80.0-100.0 [facility] Comment on above: Performed By: #### T SH #### [facility] [address] [place] [address] Dr. Allen Smith Oxygen saturation in Blood 91.5 % Critically low 95.0-100.0 [facility] Comment on above: Performed By: #### T SH #### [facility] [address] [place] [address] Dr. Allen Smith PCO2 54.7 mmHg Critically high 35.0-45.0 [facility] Comment on above: Performed By: #### T SH #### [facility] [address] [place] [address] Dr. Allen Smith PEEP [facility] Comment on above: Performed By: #### T SH #### [facility] [address] [place] [address] Dr. Allen Smith pH (Bld) 7.255 [pH] Critically low 7.350-7.45 0 [facility] Comment on above: Performed By: #### T SH #### [facility] [address] [place] [address] Dr. Allen Smith PIP [facility] Comment on above: Performed By: #### T SH #### [facility] [address] [place] [address] Dr. Allen Smith PS [facility] Comment on above: Performed By: #### T SH #### [facility] [address] [place] [address] Dr. Allen Smith PUNCTURE SITE RR [facility] Comment on above: Performed By: #### T SH #### [facility] [address] [place] [address] Dr. Allen Smith RATE [facility] Comment on above: Performed By: #### T SH #### [facility] [address] [place] [address] Dr. Allen Smith VENT MODE [facility] Comment on above: Performed By: #### T SH #### [facility] [address] [place] [address] Dr. Allen Smith VT Normal [facility] Comment on above: Performed By: #### T SH #### [facility] [address] [place] [address] Dr. Allen Smith BNPon 01-25-2023 Natriuretic peptide B (Bld) [Mass/Vol] 17408.0 pg/mL Critically high <=900.0 [facility] Comment on above: Performed By: #### B CLINICAL TRIAL LEADER, CMP #### [facility] [address] [place] [address] Dr. Allen Smith CARDIAC LI 3-6on 3 CK [Catalytic activity/Vol] 346 U/L Critically high 26-192 [facility] Comment on above: Performed By: #### T SH #### [facility] [address] [place] [address] Dr. Allen Smith CK.MB [Mass/Vol] 15.70 ng/mL Critically high <=3.60 Th [facility] Comment on above: Performed By: #### T SH #### [facility] [address] [place] [address] Dr. Allen Smith HSTROP 1206.7 pg/mL Critically high 4.0-51.3 [facility] Comment on above: Result Comment: CUT- OFF POINTS HAVE BEEN ESTABLISHED BASED ON THE FOURTH UNIVERSAL DEFINITIONS OF MYOCARDIAL INFARCTION. THE UPPER REFERENCE LIMIT (URL) OF TROPONIN, DEFINED THE 99TH PERCENTILE OF cTnI DISTRIBUTION IN A REFERENCE POPULATION, HAS BEEN CONFIRMED THE DECISION THRESHOLD FOR NV DIAGNOSIS. Performed By: #### T SH #### [facility] [address] [place] [address] Dr. Allen Smith CBC AUTO DIFFon 01-25-2023 BASO # 0.0 103/ul Normal 0.0-0.1 [facility] Comment on above: Performed By: #### T SH #### [facility] [address] [place] [address] Dr. Allen Simth Basophils/100 WBC (Bld) 0.1 % Critically low 0.2-2.0 [facility] Comment on above: Performed By: #### T SH #### [facility] [address] [place] [address] Dr. Allen Smith EO # 0.0 103/ul Normal 0.0-0.7 [facility] Comment on above: Performed By: #### T SH #### [facility] [address] [place] [address] Dr. Allen Smith Eosinophils/100 WBC (Bld) 0.0 % Critically low 0.9-7.0 [facility] Comment on above: Performed By: #### T SH #### [facility] [address] [place] [address] Dr. Allen Smith Erythrocyte distribution width (RBC) [Ratio] 13.4 % Normal 11.0-15.0 [facility] Comment on above: Performed By: #### T SH #### [facility] [address] [place] [address] Dr. Allen Smith Hematocrit (Bld) [Volume fraction] 30.2 % Critically low 36.0-48.0 [facility] Comment on above: Performed By: #### T SH #### [facility] [address] [place] [address] Dr. Allen Smith Hemoglobin (Bld) [Mass/Vol] 9.9 g/dL Critically low 12.0-16.0 [facility] Comment on above: Performed By: #### T SH #### [facility] [address] [place] [address] Dr. Allen Smith IG # 0.05 10e3/ul Critically high 0.00-0.03 [facility] Comment on above: Performed By: #### T SH #### [facility] [address] [place] [address] Dr. Allen Smith IG % 0.4 % Normal 0.0-0.5 [facility] Comment on above: Performed By: #### T SH #### [facility] [address] [place] [address] Dr. Allen Smith LYMPH # 0.3 103/ul Critically low 1.2-3.8 [facility] Comment on above: Performed By: #### T SH #### [facility] [address] [place] [address] Dr. Allen Smith Lymphocytes/100 WBC (Bld) 2.5 % Critically low 20.5-60.0 [facility] Comment on above: Performed By: #### T SH #### [facility] [address] [place] [address] Dr. Allen Smith MANUAL DIFF REQ NO Normal [facility] Comment on above: Performed By: #### T SH #### [facility] [address] [place] [address] Dr. Allen Smith MCH (RBC) [Entitic mass] 24.9 pg Critically low 26.7-34.0 [facility] Comment on above: Performed By: #### T SH #### [facility] [address] [place] [address] Dr. Allen Smith MCHC (RBC) [Mass/Vol] 32.8 g/dL Normal 29.9-35.2 [facility] Comment on above: Performed By: #### T SH #### [facility] [address] [place] [address] Dr. Allen Smith MCV (RBC) [Entitic vol] 76.1 fL Critically low 81.0-99. 0 [facility] Comment on above: Performed By: #### T SH #### [facility] [address] [place] [address] Dr. Allen Smith MONO # 0.5 103/ul Normal 0.3-0.8 [facility] Comment on above: Performed By: #### T SH #### [facility] [address] [place] [address] Dr. Allen Smith Monocytes/100 WBC (Bld) 3.7 % Normal 1.7-12.0 [facility] Comment on above: Performed By: #### T SH #### [facility] [address] [place] [address] Dr. Allen Smith NEUT # 12.2 103/ul Critically high 1.4-6.5 [facility] Comment on above: Performed By: #### T SH #### [facility] [address] [place] [address] Dr. Allen Smith Neutrophils/100 WBC (Bld) 93.3 % Critically high 43.0-75.0 [facility] Comment on above: Performed By: #### T SH #### [facility] [address] [place] [address] Dr. Allen Smith Platelet mean volume (Bld) [Entitic vol] 10.3 fL Normal 9.5-13.[address] [facility] Comment on above: Performed By: #### T SH #### [facility] [address] [place] [address] Dr. Allen Smith PLT 263 103/ul Normal 150-[address] [facility] Comment on above: Performed By: #### T SH #### [facility] [address] [place] [address] Dr. Allen Smith RBC 3.97 106/ul Critically low 4.20-5.[address] [facility] Comment on above: Performed By: #### T SH #### [facility] [address] [place] [address] Dr. Allen Smith WBC 13.0 103/ul Critically high 4.0-11.0 [facility] Comment on above: Performed By: #### T SH #### [facility] [address] [place] [address] Dr. Allen Smith BASO # 0.0 103/ul Normal 0.0-0.[address] [facility] Comment on above: Performed By: #### N A #### [facility] [address] [place] [address] Dr. Allen Smith Basophils/100 WBC (Bld) 0.1 % Critically low 0.2-2.[address] [facility] Comment on above: Performed By: #### N A #### [facility] [address] [place] [address] Dr. Allen Smith EO # 0.0 103/ul Normal 0.0-0.[address] [facility] Comment on above: Performed By: #### N A #### [facility] [address] [place] [address] Dr. Allen Smith Eosinophils/100 WBC (Bld) 0.0 % Critically low 0.9-7.[address] [facility] Comment on above: Performed By: #### N A #### [facility] [address] [place] [address] Dr. Allen Smith Erythrocyte distribution width (RBC) [Ratio] 13.4 % Normal 11.0-15.0 [facility] Comment on above: Performed By: #### N A #### [facility] [address] [place] [address] Dr. Allen Smith Hematocrit (Bld) [Volume fraction] 29.5 % Critically low 36.0-48.0 [facility] Comment on above: Performed By: #### N A #### [facility] [address] [place] [address] Dr. Allen Smith Hemoglobin (Bld) [Mass/Vol] 9.6 g/dL Critically low 12.0-16.0 [facility] Comment on above: Performed By: #### N A #### [facility] [address] [place] [address] Dr. Allen Smith IG # 0.04 10e3/ul Critically high 0.00-0.03 [facility] Comment on above: Performed By: #### N A #### [facility] [address] [place] [address] Dr. Allen Smith IG % 0.4 % Normal 0.0-0.[address] [facility] Comment on above: Performed By: #### N A #### [facility] [address] [place] [address] Dr. Allen Smith LYMPH # 0.4 103/ul Critically low 1.2-3.[address] [facility] Comment on above: Performed By: #### N A #### [facility] [address] [place] [address] Dr. Allen Smith Lymphocytes/100 WBC (Bld) 3.5 % Critically low 20.5-60.0 [facility] Comment on above: Performed By: #### N A #### [facility] [address] [place] [address] Dr. Allen Smith MANUAL DIFF REQ NO Normal [facility] Comment on above: Performed By: #### N A #### [facility] [address] [place] [address] Dr. Allen Smith MCH (RBC) [Entitic mass] 24.4 pg Critically low 26.7-34.0 [facility] Comment on above: Performed By: #### N A #### [facility] [address] [place] [address] Dr. Allen Smith MCHC (RBC) [Mass/Vol] 32.5 g/dL Normal 29.9-35.2 [facility] Comment on above: Performed By: #### N A #### [facility] [address] [place] [address] Dr. Allen Smith MCV (RBC) [Entitic vol] 74.9 fL Critically low 81.0-99. 0 [facility] Comment on above: Performed By: #### N A #### [facility] [address] [place] [address] Dr. Allen Smith MONO # 0.4 103/ul Normal 0.3-0.8 [facility] Comment on above: Performed By: #### N A #### [facility] [address] [place] [address] Dr. Allen Smith Monocytes/100 WBC (Bld) 3.5 % Normal 1.7-12.0 [facility] Comment on above: Performed By: #### N A #### [facility] [address] [place] [address] Dr. Allen Smith NEUT # 10.2 103/ul Critically high 1.4-6.5 [facility] Comment on above: Performed By: #### N A #### [facility] [address] [place] [address] Dr. Allen Smith Neutrophils/100 WBC (Bld) 92.5 % Critically high 43.0-75.0 [facility] Comment on above: Performed By: #### N A #### [facility] [address] [place] [address] Dr. Allen Smith Platelet mean volume (Bld) [Entitic vol] 10.9 fL Normal 9.5-13.5 [facility] Comment on above: Performed By: #### N A #### [facility] [address] [place] [address] Dr. Allen Smith PLT 279 103/ul Normal 150-[address] [facility] Comment on above: Performed By: #### N A #### [facility] [address] [address] [address] Allen Smith RBC 3.94 106/ul Critically low 4.20-5.40 [facility] Comment on above: Performed By: #### N A #### [facility] [address] [place] [address] Dr. Allen Smith WBC 11.0 103/ul Normal 4.0-11.0 [facility] Comment on above: Performed By: #### N A #### [facility] [address] [place] [address] Dr. Allen Smith ECHOCARDIO M/2D COMPLETEon 0 01-25-2023 ECHOCARDIO M/2D COMPLETE Patient: PERLA IBARRA Exam Date: 01/25/2023 : 1955 Gender:F Ordering : DOMINGA GODWIN . Admission #: [id number] Family : DR FREDDY BARRAZA M.D. Order #: [id number] CLICK HERE TO VIEW EXAM ECHOCARDIOGRAM REPORT [...] M.D. on 01/25/2023 at 15:39 Normal [facility] NAon 01-25-2023 Sodium [Moles/Vol] 128 mmol/L Critically low 136-145 Th [facility] Comment on above: Performed By: #### N A #### [facility] [address] [place] [address] Dr. Allen Smith Sodium [Moles/Vol] 122 mmol/L Critically low 136-145 Th [facility] Comment on above: Performed By: #### T SH #### [facility] [address] [place] [address] Dr. Allen Smith Sodium [Moles/Vol] 122 mmol/L Critically low 136-145 Th [facility] Comment on above: Performed By: #### N A #### [facility] [address] [place] [address] Dr. Allen Smith PROF 14(COMP METB)on 023 Albumin [Mass/Vol] 2.8 g/dL Critically low 3.4-5.0 [facility] Comment on above: Performed By: #### B CLINICAL TRIAL LEADER, CMP #### [facility] [address] [place] [address] Dr. Allen Smith Albumin/Globulin [Mass ratio] 0.5 {ratio} Normal [facility] Comment on above: Performed By: #### B CLINICAL TRIAL LEADER, CMP #### [facility] [address] [place] [address] Dr. Allen Smith ALP [Catalytic activity/Vol] 69 U/L Normal 46-116 [facility] Comment on above: Performed By: #### B CLINICAL TRIAL LEADER, CMP #### [facility] [address] [place] [address] Dr. Allen Smith ALT [Catalytic activity/Vol] 57 U/L Normal 14-59 [facility] Comment on above: Performed By: #### B CLINICAL TRIAL LEADER, CMP #### [facility] [address] [place] [address] Dr. Allen Smith Anion gap [Moles/Vol] 16.1 mmol/L Normal Th [facility] Comment on above: Performed By: #### B CLINICAL TRIAL LEADER, CMP #### [facility] [address] [place] [address] Dr. Allen Smith AST [Catalytic activity/Vol] 41 U/L Critically high 15-37 [facility] Comment on above: Performed By: #### B CLINICAL TRIAL LEADER, CMP #### [facility] [address] [place] [address] Dr. Allen Smith Bilirubin [Mass/Vol] 0.2 mg/dL Normal 0.2-1.0 [facility] Comment on above: Performed By: #### B CLINICAL TRIAL LEADER, CMP #### [facility] [address] [place] [address] Dr. Allen Smith Calcium [Mass/Vol] 8.7 mg/dL Normal 8.5-10.1 [facility] Comment on above: Performed By: #### B CLINICAL TRIAL LEADER, CMP #### [facility] [address] [place] [address] Dr. Allen Smith Chloride [Moles/Vol] 88 mmol/L Critically low 98-107 [facility] Comment on above: Performed By: #### B CLINICAL TRIAL LEADER, CMP #### [facility] [address] [place] [address] Dr. Allen Smith CO2 [Moles/Vol] 22.6 mmol/L Normal 21.0-32.[address] [facility] Comment on above: Performed By: #### B CLINICAL TRIAL LEADER, CMP #### [facility] [address] [place] [address] Dr. Allen Smith Creatinine [Mass/Vol] 0.83 mg/dL Normal 0.55-1.02 [facility] Comment on above: Performed By: #### B CLINICAL TRIAL LEADER, CMP #### [facility] [address] [place] [address] Dr. Allen Smith EGFR-AF TURKS AND CAICOS ISLANDER >60 Normal >=60 [facility] Comment on above: Performed By: #### B CLINICAL TRIAL LEADER, CMP #### [facility] [address] [place] [address] Dr. Allen Smith EGFR-NON AF TURKS AND CAICOS ISLANDER >60 Normal >=60 [facility] Comment on above: Performed By: #### B CLINICAL TRIAL LEADER, CMP #### [facility] [address] [place] [address] Dr. Allen Smith Globulin (S) [Mass/Vol] 5.2 g/dL Normal [facility] Comment on above: Performed By: #### B CLINICAL TRIAL LEADER, CMP #### [facility] [address] [place] [address] Dr. Allen Smith Glucose [Mass/Vol] 120 mg/dL Critically high 74-106 [facility] Comment on above: Performed By: #### B CLINICAL TRIAL LEADER, CMP #### [facility] [address] [place] [address] Dr. Allen Smith Potassium [Moles/Vol] 3.7 mmol/L Normal 3.5-5.1 [facility] Comment on above: Performed By: #### B CLINICAL TRIAL LEADER, CMP #### [facility] [address] [place] [address] Dr. Allen Smith Protein [Mass/Vol] 8.0 g/dL Normal 6.4-8.2 [facility] Comment on above: Performed By: #### B CLINICAL TRIAL LEADER, CMP #### [facility] [address] [place] [address] Dr. Allen Smith Sodium [Moles/Vol] 122 mmol/L Critically low 136-145 [facility] Comment on above: Performed By: #### B CLINICAL TRIAL LEADER, CMP #### [facility] [address] [place] [address] Dr. Allen Smith Urea nitrogen [Mass/Vol] 13.0 mg/dL Normal 7.0-18.0 [facility] Comment on above: Performed By: #### B CLINICAL TRIAL LEADER, CMP #### [facility] [address] [place] [address] Dr. Allen Smith Urea nitrogen/Creatinine [Mass ratio] 15.7 mg/mg Normal [facility] Comment on above: Performed By: #### B CLINICAL TRIAL LEADER, CMP #### [facility] [address] [place] [address] Dr. Allen Smith PROF CHEM 8 (BAS METB)on Anion gap [Moles/Vol] 13.3 mmol/L Normal [facility] Comment on above: Performed By: #### B MP #### [facility] [address] [place] [address] Dr. Allen Smith Calcium [Mass/Vol] 7.1 mg/dL Critically low 8.5-10.1 [facility] Comment on above: Performed By: #### B MP #### [facility] [address] [place] [address] Dr. Allen Smith Chloride [Moles/Vol] 97 mmol/L Critically low 98-107 [facility] Comment on above: Performed By: #### B MP #### [facility] [address] [place] [address] Dr. Allen Smith CO2 [Moles/Vol] 21.8 mmol/L Normal 21.0-32.0 [facility] Comment on above: Performed By: #### B MP #### [facility] [address] [place] [address] Dr. Allen Smith Creatinine [Mass/Vol] 0.84 mg/dL Normal 0.55-1.02 [facility] Comment on above: Performed By: #### B MP #### [facility] [address] [place] [address] Dr. Allen Smith EGFR-AF TURKS AND CAICOS ISLANDER >60 Normal >=60 [facility] Comment on above: Performed By: #### B MP #### [facility] [address] [place] [address] Dr. Allen Smith EGFR-NON AF TURKS AND CAICOS ISLANDER >60 Normal >=60 [facility] Comment on above: Performed By: #### B MP #### [facility] [address] [place] [address] Dr. Allen Smith Glucose [Mass/Vol] 128 mg/dL Critically high 74-106 T [facility] Comment on above: Performed By: #### B MP #### [facility] [address] [place] [address] Dr. Allen Smith Potassium [Moles/Vol] 3.1 mmol/L Critically low 3.5-5.1 [facility] Comment on above: Performed By: #### B MP #### [facility] [address] [place] [address] Dr. Allen Smith Sodium [Moles/Vol] 129 mmol/L Critically low 136-145 Th [facility] Comment on above: Performed By: #### B MP #### [facility] [address] [place] [address] Dr. Allen Smith Urea nitrogen [Mass/Vol] 17.0 mg/dL Normal 7.0-18.0 [facility] Comment on above: Performed By: #### B MP #### [facility] [address] [place] [address] Dr. Allen Smith Urea nitrogen/Creatinine [Mass ratio] 20.2 mg/mg Normal [facility] Comment on above: Performed By: #### B MP #### [facility] [address] [place] [address] Dr. Allen Smith PROTIMEon 01-25-2023 INR Coag (PPP) [Relative time] 0.98 {INR} Normal [facility] Comment on above: Performed By: #### B CLINICAL TRIAL LEADER, CMP #### [facility] [address] [place] [address] Dr. Allen Smith INR GUIDELINES SEE BELOW Normal [facility] Comment on above: Result Comment: VU RED INR: 2.0 - 3.0 CONDITIONS NOT LISTED BELOW 2.5 - 3.5 FOR PROSTHETIC HEART VALVE REPLACEMENT 2.5 - 3.5 RECURRENT THROMBOSIS Performed By: #### B CLINICAL TRIAL LEADER, CMP #### [facility] [address] [place] [address] Dr. Allen Smith PT Coag (PPP) [Time] 10.4 s Normal 9.0-11.6 [facility] Comment on above: Performed By: #### B CLINICAL TRIAL LEADER, CMP #### [facility] [address] [place] [address] Dr. Allen Smith PTTon 01-25-2023 aPTT Coag (Bld) [Time] 29.8 s Normal 22.3-36.2 [facility] Comment on above: Performed By: #### B CLINICAL TRIAL LEADER, CMP #### [facility] [address] [place] [address] Dr. Allen Smith PTT HEPARIN MONITORon 2022 aPTT Coag (Bld) [Time] 24.5 s Critically low 39.5-54.2 [facility] Comment on above: Performed By: #### T SH #### [facility] [address] [place] [address] Dr. Allen Smith TRIGLYCERIDEon 01-25-2023 Triglyceride [Mass/Vol] 55 mg/dL Normal <=150 [facility] Comment on above: Performed By: #### T SH #### [facility] [address] [place] [address] Dr. Allen Smith XR CHEST 1 Von 01-25-2023 XR CHEST 1 V EXAM: XR CHEST 1 V HISTORY: SHORTNESS OF BREATH COMPARISON: Chest radiograph 01/25/2023. TECHNIQUE: AP upright portable view of chest FINDINGS: Stable endotracheal tube position. Enteric tube has been advanced with distal tip not included in the [id number] but at least terminates in the mid to low gastric body. Radiolucent sideport is at the gastric antrum. Similar pulmonary vascular congestion. No sizable pleural effusion or pneumothorax. Normal cardiomediastinal sella. No acute osseous or soft tissue abnormalities. IMPRESSION: 1. Enteric tube has been advanced with distal tip not included in the [id number] but at least terminates in the mid to low gastric body. Radiolucent sideport is at the gastric antrum. 2. Stable endotracheal tube position. 3. Pulmonary vascular congestion. Electronically authenticated by: BASHIR ZAYAS Date: 2023-01-25 18:35 Normal [facility] XR CHEST 1 V EXAM: XR [...] Ava HERNDON Date: 2023-01-25 17:[address] [facility] BLOOD GASES BTYon 01-24-2023 02 MODE NASAL CANNULA Normal [facility] Comment on above: Performed By: #### A BG #### [facility] [address] [place] [address] Dr. Allen Smith ALLENS TEST Positive [facility] Comment on above: Performed By: #### A BG #### [facility] [address] [place] [address] Dr. Allen Smith Base excess Calc (Bld) [Moles/Vol] -4.1000 mmol/L Critically low -2.0-2.0 [facility] Comment on above: Performed By: #### A BG #### [facility] [address] [place] [address] Dr. Allen Smith BIPAP PRESSURE Normal [facility] Comment on above: Performed By: #### A BG #### [facility] [address] [place] [address] Dr. Allen Smith CPAP Normal [facility] Comment on above: Performed By: #### A BG #### [facility] [address] [place] [address] Dr. Allen Smith FIO2 Normal [facility] Comment on above: Performed By: #### A BG #### [facility] [address] [place] [address] Dr. Allen Smith HCO3 (Bld) [Moles/Vol] 21.6 mmol/L Critically low 22.0-26. 0 [facility] Comment on above: Performed By: #### A BG #### [facility] [address] [place] [address] Dr. Allen Smith LPM 3 [facility] Comment on above: Performed By: #### A BG #### [facility] [address] [place] [address] Dr. Allen Smith MINUTE VOLUME Normal [facility] Comment on above: Performed By: #### A BG #### [facility] [address] [place] [address] Dr. Allen Smith Oxygen (Bld) [Partial pressure] 112.0 mm[Hg] Critically high 80.0-100.0 [facility] Comment on above: Performed By: #### A BG #### [facility] [address] [place] [address] Dr. Allen Smith Oxygen saturation in Blood 98.5 % Normal 95.0-100.0 [facility] Comment on above: Performed By: #### A BG #### [facility] [address] [place] [address] Dr. Allen Smith PCO2 39.6 mmHg Normal 35.0-45.0 [facility] Comment on above: Performed By: #### A BG #### [facility] [address] [place] [address] Dr. Allen Smith PEEP [facility] Comment on above: Performed By: #### A BG #### [facility] [address] [place] [address] Dr. Allen Smith pH (Bld) 7.345 [pH] Critically low 7.350-7.45 0 [facility] Comment on above: Performed By: #### A BG #### [facility] [address] [place] [address] Dr. Allen Smith PIP [facility] Comment on above: Performed By: #### A BG #### [facility] [address] [place] [address] Dr. Allen Smith PS [facility] Comment on above: Performed By: #### A BG #### [facility] [address] [place] [address] Dr. Allen Smith PUNCTURE SITE LR [facility] Comment on above: Performed By: #### A BG #### [facility] [address] [place] [address] Dr. Allen Smith [facility] Comment on above: Performed By: #### A BG #### [facility] [address] [place] [address] Dr. Allen Smith VENT [facility] Comment on above: Performed By: #### A BG #### [facility] [address] [place] [address] Dr. Allen Smith [facility] Comment on above: Performed By: #### A BG #### [facility] [address] [place] [address] Dr. Allen Smith BNPon 01-24-2023 Natriuretic peptide B (Bld) [Mass/Vol] 93046.0 pg/mL Critically high <=900.0 [facility] Comment on above: Performed By: #### N A #### [facility] [address] [place] [address] Dr. Allen Smith CARDIAC LI 3-6on 3 CK [Catalytic activity/Vol] 319 U/L Critically high 26-192 [facility] Comment on above: Performed By: #### B CLINICAL TRIAL LEADER, CMP #### [facility] [address] [place] [address] Dr. Allen Smith CK.MB [Mass/Vol] 16.41 ng/mL Critically high <=3.60 Th [facility] Comment on above: Performed By: #### B CLINICAL TRIAL LEADER, CMP #### [facility] [address] [place] [address] Dr. Allen Smith HSTROP 1248.2 pg/mL Critically high 4.0-51.3 [facility] Comment on above: Result Comment: CUT- OFF POINTS HAVE BEEN ESTABLISHED BASED ON THE FOURTH UNIVERSAL DEFINITIONS OF MYOCARDIAL INFARCTION. THE UPPER REFERENCE LIMIT (URL) OF TROPONIN, DEFINED THE 99TH PERCENTILE OF cTnI DISTRIBUTION IN A REFERENCE POPULATION, HAS BEEN CONFIRMED THE DECISION THRESHOLD FOR [place] DIAGNOSIS. Performed By: #### B CLINICAL TRIAL LEADER, CMP #### [facility] [address] [place] [address] Dr. Allen Smith CARDIAC LI ADMITon 023 CK [Catalytic activity/Vol] 238 U/L Critically high 26-192 [facility] Comment on above: Performed By: #### C MADM #### [facility] [address] [place] [address] Dr. Allen Smith CK.MB [Mass/Vol] 12.74 ng/mL Critically high <=3.60 Th [facility] Comment on above: Performed By: #### C MADM #### [facility] [address] [place] [address] Dr. Allen Smith HSTROP 1545.9 pg/mL Critically high 4.0-51.3 [facility] Comment on above: Result Comment: CUT- OFF POINTS HAVE BEEN ESTABLISHED BASED ON THE FOURTH UNIVERSAL DEFINITIONS OF MYOCARDIAL INFARCTION. THE UPPER REFERENCE LIMIT (URL) OF TROPONIN, DEFINED THE 99TH PERCENTILE OF cTnI DISTRIBUTION IN A REFERENCE POPULATION, HAS BEEN CONFIRMED THE DECISION THRESHOLD FOR [place] DIAGNOSIS. Performed By: #### C MADM #### [facility] [address] [place] [address] Dr. Allen Smith BRYAN 244 ng/mL Critically high 9-82 [facility] Comment on above: Performed By: #### C MADM #### [facility] [address] [place] [address] Dr. Allen Smith CBC AUTO DIFFon 01-24-2023 BASO # 0.0 103/ul Normal 0.0-0.1 [facility] Comment on above: Performed By: #### C BC #### [facility] [address] [place] [address] Dr. Allen Smith Basophils/100 WBC (Bld) 0.2 % Normal 0.2-2.0 [facility] Comment on above: Performed By: #### C BC #### [facility] [address] [place] [address] Dr. Allen Smith EO # 0.0 103/ul Normal 0.0-0.7 [facility] Comment on above: Performed By: #### C BC #### [facility] [address] [place] [address] Dr. Allen Smith Eosinophils/100 WBC (Bld) 0.0 % Critically low 0.9-7.0 [facility] Comment on above: Performed By: #### C BC #### [facility] [address] [place] [address] Dr. Allen Smith Erythrocyte distribution width (RBC) [Ratio] 13.4 % Normal 11.0-15.0 [facility] Comment on above: Performed By: #### C BC #### [facility] [address] [place] [address] Dr. Allen Smith Hematocrit (Bld) [Volume fraction] 33.0 % Critically low 36.0-48.0 [facility] Comment on above: Performed By: #### C BC #### [facility] [address] [place] [address] Dr. Allen Smith Hemoglobin (Bld) [Mass/Vol] 10.6 g/dL Critically low 12.0-16.0 [facility] Comment on above: Performed By: #### C BC #### [facility] [address] [place] [address] Dr. Allen Smith IG # 0.11 10e3/ul Critically high 0.00-0.03 [facility] Comment on above: Performed By: #### C BC #### [facility] [address] [place] [address] Dr. Allen Smith IG % 0.9 % Critically high 0.0-0.5 [facility] Comment on above: Performed By: #### C BC #### [facility] [address] [place] [address] Dr. Allen Smith LYMPH # 0.5 103/ul Critically low 1.2-3.[address] [facility] Comment on above: Performed By: #### C BC #### [facility] [address] [place] [address] Dr. Allen Smith Lymphocytes/100 WBC (Bld) 4.2 % Critically low 20.5-60.0 [facility] Comment on above: Performed By: #### C BC #### [facility] [address] [place] [address] Dr. Allen Smith MANUAL DIFF REQ NO Normal [facility] Comment on above: Performed By: #### C BC #### [facility] [address] [place] [address] Dr. Allen Smith MCH (RBC) [Entitic mass] 24.5 pg Critically low 26.7-34.0 [facility] Comment on above: Performed By: #### C BC #### [facility] [address] [place] [address] Dr. Allen Smith MCHC (RBC) [Mass/Vol] 32.1 g/dL Normal 29.9-35.2 [facility] Comment on above: Performed By: #### C BC #### [facility] [address] [place] [address] Dr. Allen Smith MCV (RBC) [Entitic vol] 76.2 fL Critically low 81.0-99. 0 [facility] Comment on above: Performed By: #### C BC #### [facility] [address] [place] [address] Dr. Allen Smith MONO # 0.7 103/ul Normal 0.3-0.8 [facility] Comment on above: Performed By: #### C BC #### [facility] [address] [place] [address] Dr. Allen Smith Monocytes/100 WBC (Bld) 5.1 % Normal 1.7-12.0 [facility] Comment on above: Performed By: #### C BC #### [facility] [address] [place] [address] Dr. Allen Smith NEUT # 11.3 103/ul Critically high 1.4-6.5 [facility] Comment on above: Performed By: #### C BC #### [facility] [address] [place] [address] Dr. Allen Smith Neutrophils/100 WBC (Bld) 89.6 % Critically high 43.0-75.0 [facility] Comment on above: Performed By: #### C BC #### [facility] [address] [place] [address] Dr. Allen Smith Platelet mean volume (Bld) [Entitic vol] 10.0 fL Normal 9.5-13.5 [facility] Comment on above: Performed By: #### C BC #### [facility] [address] [address] [address] Allen Smith PLT 316 103/ul Normal 150-[address] [facility] Comment on above: Performed By: #### C BC #### [facility] [address] [address] [address] Allen Smith RBC 4.33 106/ul Normal 4.20-5.40 [facility] Comment on above: Performed By: #### C BC #### [facility] [address] [address] [address] Allen Smith WBC 12.6 103/ul Critically high 4.0-11.0 [facility] Comment on above: Performed By: #### C BC #### [facility] [address] [place] [address]K [address] W [...] by: FREDDY BARRAZA Date: 2023-01-24 14:13 Normal [facility] CULTURE BLOODon 01-24-2023 Microscopic examination of blood, culture Culture Observations: NO GROWTH AT 5 DAYS. [facility] Comment on above: Performed By: #### B CLINICAL TRIAL LEADER, CMP #### [facility] [address] [place] [address] Dr. Allen Smith Microscopic examination of blood, culture Culture Observations: NO GROWTH AT 5 DAYS. Normal [facility] Comment on above: Performed By: #### B CLINICAL TRIAL LEADER, CMP #### [facility] [address] [place] [address] Dr. Allen Smith GROUP A STREP CULTUREon 01-01 S. pyogenes Ag Ql (Unsp spec) Culture Observations: NEGATIVE FOR GROUP A STREPTOCOCCUS. [facility] Comment on above: Performed By: #### N A #### [facility] [address] [place] [address] Dr. Allen Smith LACTATE/LACTIC ACIDon 2022 Lactate [Moles/Vol] 3.1 mmol/L Critically high 0.4-2.0 [facility] Comment on above: Performed By: #### A BG #### [facility] [address] [place] [address] Dr. Allen Smith Lactate [Moles/Vol] 3.6 mmol/L Critically high 0.4-2.0 [facility] Comment on above: Performed By: #### T SH #### [facility] [address] [place] [address] Dr. Allen Smith NAon 01-24-2023 Sodium [Moles/Vol] 122 mmol/L Critically low 136-145 Th [facility] Comment on above: Performed By: #### N A #### [facility] [address] [place] [address] Dr. Allen Smith PROF 14(COMP METB)on 023 Albumin [Mass/Vol] 3.0 g/dL Critically low 3.4-5.0 Th [facility] Comment on above: Performed By: #### N A #### [facility] [address] [place] [address] Dr. Allen Smith Albumin/Globulin [Mass ratio] 0.5 {ratio} Normal [facility] Comment on above: Performed By: #### N A #### [facility] [address] [place] [address] Dr. Allen Smith ALP [Catalytic activity/Vol] 88 U/L Normal 46-116 [facility] Comment on above: Performed By: #### N A #### [facility] [address] [place] [address] Dr. Allen Smith ALT [Catalytic activity/Vol] 65 U/L Critically high 14-59 [facility] Comment on above: Performed By: #### N A #### [facility] [address] [place] [address] Dr. Allen Smith Anion gap [Moles/Vol] 17.8 mmol/L Normal [facility] Comment on above: Performed By: #### N A #### [facility] [address] [place] [address] Dr. Allen Smith AST [Catalytic activity/Vol] 28 U/L Normal 15-37 [facility] Comment on above: Performed By: #### N A #### [facility] [address] [place] [address] Dr. Allen Smith Bilirubin [Mass/Vol] 0.3 mg/dL Normal 0.2-1.0 [facility] Comment on above: Performed By: #### N A #### [facility] [address] [place] [address] Dr. Allen Smith Calcium [Mass/Vol] 9.5 mg/dL Normal 8.5-10.1 [facility] Comment on above: Performed By: #### N A #### [facility] [address] [place] [address] Dr. Allen Smith Chloride [Moles/Vol] 87 mmol/L Critically low 98-107 [facility] Comment on above: Performed By: #### N A #### [facility] [address] [place] [address] Dr. Allen Smith CO2 [Moles/Vol] 22.5 mmol/L Normal 21.0-32.0 [facility] Comment on above: Performed By: #### N A #### [facility] [address] [place] [address] Dr. Allen Smith Creatinine [Mass/Vol] 1.07 mg/dL Critically high 0.55-1.02 [facility] Comment on above: Performed By: #### N A #### [facility] [address] [place] [address] Dr. Allen Smith EGFR-AF [place] >60 Normal >=60 [facility] Comment on above: Performed By: #### N A #### [facility] [address] [address] [address] Allen Smith EGFR-NON AF [place]ER 51 mL/min/1.73m2 Critically low >=60 [facility] Comment on above: Performed By: #### N A #### [facility] [address] [place] [address] Dr. Allen Smith Globulin (S) [Mass/Vol] 6.2 g/dL Normal [facility] Comment on above: Performed By: #### N A #### [facility] [address] [place] [address] Dr. Allen Smith Glucose [Mass/Vol] 182 mg/dL Critically high 74-106 [facility] Comment on above: Performed By: #### N A #### [facility] [address] [place] [address] Dr. Allen Smith Potassium [Moles/Vol] 4.3 mmol/L Normal 3.5-5.1 [facility] Comment on above: Performed By: #### N A #### [facility] [address] [place] [address] Dr. Allen Smith Protein [Mass/Vol] 9.2 g/dL Critically high 6.4-8.2 [facility] Comment on above: Performed By: #### N A #### [facility] [address] [place] [address] Dr. Allen Smith Sodium [Moles/Vol] 123 mmol/L Critically low 136-145 Th [facility] Comment on above: Performed By: #### N A #### [facility] [address] [place] [address] Dr. Allen Smith Urea nitrogen [Mass/Vol] 12.0 mg/dL Normal 7.0-18.0 [facility] Comment on above: Performed By: #### N A #### [facility] [address] [place] [address] Dr. Allen Smith Urea nitrogen/Creatinine [Mass ratio] 11.2 mg/mg Normal [facility] Comment on above: Performed By: #### N A #### [facility] [address] [place] [address] Dr. Allen Smith PROTIMEon 01-24-2023 INR Coag (PPP) [Relative time] 0.98 {INR} Normal [facility] Comment on above: Performed By: #### T SH #### [facility] [address] [place] [address] Dr. Allen Smith INR GUIDELINES SEE BELOW Normal [facility] Comment on above: Result Comment: VU RED INR: 2.0 - 3.0 CONDITIONS NOT LISTED BELOW 2.5 - 3.5 FOR PROSTHETIC HEART VALVE REPLACEMENT 2.5 - 3.5 RECURRENT THROMBOSIS Performed By: #### T SH #### [facility] [address] [place] [address] Dr. Allen Smith PT Coag (PPP) [Time] 10.4 s Normal 9.0-11.6 [facility] Comment on above: Performed By: #### T SH #### [facility] [address] [place] [address] Dr. Allen Smith PTTon 01-24-2023 aPTT Coag (Bld) [Time] 29.5 s Normal 22.3-36.2 Th [facility] Comment on above: Performed By: #### T SH #### [facility] [address] [place] [address] Dr. Allen Smith RESPIRATORY PANEL PLUSon Adenovirus Not detected Normal NOT DETECTED [facility] Comment on above: Performed By: #### N A #### [facility] [address] [place] [address] Dr. Allen Thayer Parapertusis Not detected Normal NOT DETECTED [facility] Comment on above: Performed By: #### N A #### [facility] [address] [place] [address] Dr. Allen Thayer Pertussis Not detected Normal NOT DETECTED [facility] Comment on above: Performed By: #### N A #### [facility] [address] [place] [address] Dr. Allen Smith Chlamydia Pneumoniae Not detected Normal NOT DETECTED [facility] Comment on above: Performed By: #### N A #### [facility] [address] [place] [address] Dr. Allen Smith Coronavirus 229E Not detected Normal NOT DETECTED [facility] Comment on above: Performed By: #### N A #### [facility] [address] [place] [address] Dr. Allen Smith Coronavirus HKU1 Not detected Normal NOT DETECTED [facility] Comment on above: Performed By: #### N A #### [facility] [address] [place] [address] Dr. Allen Smith Coronavirus NL63 Not detected Normal NOT DETECTED [facility] Comment on above: Performed By: #### N A #### [facility] [address] [place] [address] Dr. Allen Smith Coronavirus OC43 Not detected Normal NOT DETECTED [facility] Comment on above: Performed By: #### N A #### [facility] [address] [place] [address] Dr. Allen Smith Influenza A H1 Not detected Normal NOT DETECTED [facility] Comment on above: Performed By: #### N A #### [facility] [address] [place] [address] Dr. Allen Smith Influenza A H1 2009 Not detected Normal NOT DETECTED [facility] Comment on above: Performed By: #### N A #### [facility] [address] [place] [address] Dr. Allen Smith Influenza A H3 Not detected Normal NOT DETECTED [facility] Comment on above: Performed By: #### N A #### [facility] [address] [place] [address] Dr. Allen Smith Influenza B Not detected Normal NOT DETECTED [facility] Comment on above: Performed By: #### N A #### [facility] [address] [place] [address] Dr. Allen Smith Metapneumovirus Not detected Normal NOT DETECTED [facility] Comment on above: Performed By: #### N A #### [facility] [address] [place] [address] Dr. Allen Smith Mycoplas. Pneumoniae Not detected Normal NOT DETECTED [facility] Comment on above: Performed By: #### N A #### [facility] [address] [place] [address] Dr. Allen Smith Parainfluenza 1 Not detected Normal NOT DETECTED [facility] Comment on above: Performed By: #### N A #### [facility] [address] [place] [address] Dr. Allen Smith Parainfluenza 2 Not detected Normal NOT DETECTED [facility] Comment on above: Performed By: #### N A #### [facility] [address] [place] [address] Dr. Allen Smith Parainfluenza 3 Detected Abnormal NOT DETECTED [facility] Comment on above: Performed By: #### N A #### [facility] [address] [place] [address] Dr. Allen Smith Parainfluenza 4 Not detected Normal NOT DETECTED [facility] Comment on above: Performed By: #### N A #### [facility] [address] [place] [address] Dr. Allen Smith Rhino/Enterovirus Not detected Normal NOT DETECTED [facility] Comment on above: Performed By: #### N A #### [facility] [address] [place] [address] Dr. Allen Smith RP2 Header 1 RESPIRATORY PANEL: VIRUSES Normal [facility] Comment on above: Performed By: #### N A #### [facility] [address] [place] [address] Dr. Allen Smith RP2 Header 2 RESPIRATORY PANEL: BACTERIA Normal [facility] Comment on above: Performed By: #### N A #### [facility] [address] [place] [address] Dr. Allen Smith RSV Not detected Normal NOT DETECTED [facility] Comment on above: Performed By: #### N A #### [facility] [address] [place] [address] Dr. Allen Smith SARS-CoV-2 (COVID-19) RNA BJORN+probe Ql (Unsp spec) Not detected Normal NOT DETECTED [facility] Comment on above: Performed By: #### N A #### [facility] [address] [place] [address] Dr. Allen Smith STREPT SCREENon 01-24-2023 STREP SCREEN A Negative Normal NEGATIVE [facility] Comment on above: Performed By: #### N A #### [facility] [address] [place] [address] Dr. Allen Smith TSHon 01-24-2023 TSH 0.471 uIU/mL Normal 0.358-3.[address] [facility] Comment on above: Performed By: #### T SH #### [facility] [address] [place] [address] Dr. Allen Smith XR CHEST 1 Von [...] OLIVIA JAVED Date: 2023-01-24 12:[address] [facility] Vital Signs Date Time Vital Sign Value Performing Clinician Facility 03-27-2025 13:18-0400 Body height 157.5 cm Toro Baron APRN-SCREW MACHINE OPERATOR SWISS TYPE Work Phone: [facility] 03-27-2025 13:18-0400 Body mass index (BMI) [Ratio] 39.9 kg/m2 Toro Baron APRN-SCREW MACHINE OPERATOR [employer] TYPE Work Phone: [facility] 03-27-2025 13:18-0400 Body temperature 98.71 [degF] Toro Baron APRN-SCREW MACHINE OPERATOR SWISS TYPE Work Phone: [facility] 03-27-2025 13:18-0400 Body weight 98.97 kg Toro Baron APRN-SCREW MACHINE OPERATOR SWISS TYPE Work Phone: [facility] 03-27-2025 13:18-0400 Diastolic blood pressure 68 mm[Hg] Toro Baron APRN-SCREW MACHINE OPERATOR SWISS TYPE Work Phone: [facility] 03-27-2025 13:18-0400 Heart rate 100 /min Toro Baron APRN-SCREW MACHINE OPERATOR SWISS TYPE Work Phone: [facility] 03-27-2025 13:18-0400 Respiratory rate 20 /min Toro Baron APRN-SCREW MACHINE OPERATOR SWISS TYPE Work Phone: [facility] 03-27-2025 13:18-0400 SaO2% (BldA) [Mass fraction] 98 % Toro Baron APRN-SCREW MACHINE OPERATOR SW[employer] TYPE Work Phone: [facility] 03-27-2025 13:18-0400 Systolic blood pressure 118 mm[Hg] Toro Baron APRN-SCREW MACHINE OPERATOR SWISS TYPE Work Phone: [facility] 01-27-2025 13:39-0400 Body temperature 97.6 [degF] Rogers AGUIRREP Work Phone: [facility] 01-27-2025 13:39-0400 Body weight 98.42 kg Rogers AGUIRREP Work Phone: [facility] 01-27-2025 13:39-0400 Diastolic blood pressure 79 mm[Hg] Rogers Kuns PHOTOVOLTAIC FABRICATION TECHNICIAN Work Phone: [facility] 01-27-2025 13:39-0400 Heart rate 82 /min Rogers JIANG Work Phone: [facility] 01-27-2025 13:39-0400 Inhaled oxygen flow rate 2 L/min Rogers JIANG Work Phone: [facility] 01-27-2025 13:39-0400 Respiratory rate 18 /min Rogers JIANG Work Phone: [facility] 01-27-2025 13:39-0400 SaO2% (BldA) [Mass fraction] 98 % Rogers JIANG Work Phone: [facility] 01-27-2025 13:39-0400 Systolic blood pressure 129 mm[Hg] Rogers JIANG Work Phone: [facility] 12-16-2024 11:35-0400 Body height 157.5 cm Toro Baron APRN-SCREW MACHINE OPERATOR SWISS TYPE [facility] Phone[facility] 12-16-2024 11:35-0400 Body mass index (BMI) [Ratio] 38.63 kg/m2 Toro Baron APRN-SCREW MACHINE OPERATOR SWISS TYPE Work Phone: [facility] 12-16-2024 11:35-0400 Body temperature 98.2 [degF] Toromalou Baron APRN-SCREW MACHINE OPERATOR SWISS TYPE [facility] 12-16-2024 11:35-0400 Body weight 95.8 kg Toromalou Baron APRN-SCREW MACHINE OPERATOR SWISS TYPE [facility] 12-16-2024 11:35-0400 Diastolic blood pressure 60 mm[Hg] Toro Baron WOOD ROOM HAND-SCREW MACHINE OPERATOR SWISS TYPE [facility] 12-16-2024 11:35-0400 Heart rate 90 /min Toro Baron WOOD ROOM HAND-SCREW MACHINE OPERATOR SWISS TYPE Work Phone: [facility] 12-16-2024 11:35-0400 Respiratory rate 18 /min Toro Baron APRN-SCREW MACHINE OPERATOR SWISS TYPE Work Phone: [facility] 12-16-2024 11:35-0400 SaO2% (BldA) [Mass fraction] 96 % Toro Baron APRN-SCREW MACHINE OPERATOR SWISS TYPE Work Phone: [facility] 12-16-2024 11:35-0400 Systolic blood pressure 110 mm[Hg] Toro Baron APRN-SCREW MACHINE OPERATOR SWISS TYPE Work Phone: [facility] 11-25-2024 14:49-0500 Body weight 95.7 kg Rogers AGUIRREP Work Phone: [facility] 11-25-2024 14:49-0500 Diastolic blood pressure 76 mm[Hg] Rogers AGUIRREP Work Phone: [facility] 11-25-2024 14:49-0500 Heart rate 87 /min Rogers AGUIRREP Work Phone: [facility] 11-25-2024 14:49-0500 Inhaled oxygen flow rate 2 L/min Rogers AGUIRREP Work Phone: [facility] 11-25-2024 14:49-0500 Respiratory rate 20 /min Rogers JIANG Work Phone: [facility] 11-25-2024 14:49-0500 SaO2% (BldA) [Mass fraction] 99 % Rogers Wilson PHOTOVOLTAIC FABRICATION TECHNICIAN Work Phone: [facility] 11-25-2024 14:49-0500 Systolic blood pressure 136 mm[Hg] Rogers AGUIRREP Work Phone: [facility] 10-28-2024 13:25-0500 Body height 167.64 cm Rogers JIANG Work Phone: [facility] 10-28-2024 13:25-0500 Body mass index (BMI) [Ratio] 33.4 kg/m2 Rogers Wilson PHOTOVOLTAIC FABRICATION TECHNICIAN Work Phone: [facility] 10-28-2024 13:25-0500 Body temperature 97.1 [degF] Rogers Wilson PHOTOVOLTAIC FABRICATION TECHNICIAN Work Phone: [facility] 10-28-2024 13:25-0500 Body weight 93.89 kg Rogers Wilson PHOTOVOLTAIC FABRICATION TECHNICIAN Work Phone: [facility] 10-28-2024 13:25-0500 Diastolic blood pressure 80 mm[Hg] Rogers Wilson PHOTOVOLTAIC FABRICATION TECHNICIAN Work Phone: [facility] 10-28-2024 13:25-0500 Heart rate 60 /min Rogers Wilson PHOTOVOLTAIC FABRICATION TECHNICIAN Work Phone: [facility] 10-28-2024 13:25-0500 Inhaled oxygen flow rate 2 L/min Rogers Wilson PHOTOVOLTAIC FABRICATION TECHNICIAN Work Phone: [facility] 10-28-2024 13:25-0500 Respiratory rate 18 /min Rogers Wilson PHOTOVOLTAIC FABRICATION TECHNICIAN Work Phone: [facility] 10-28-2024 13:25-0500 SaO2% (BldA) [Mass fraction] 100 % Rogers Wilson PHOTOVOLTAIC FABRICATION TECHNICIAN Work Phone: [facility] 10-28-2024 13:25-0500 Systolic blood pressure 144 mm[Hg] Rogers Wilson PHOTOVOLTAIC FABRICATION TECHNICIAN Work Phone: [facility] 10-01-2024 09:29-0500 Body temperature 97.5 [degF] Rogers Wilson PHOTOVOLTAIC FABRICATION TECHNICIAN Work Phone: [facility] 10-01-2024 09:29-0500 Body weight 92.98 kg Rogers Wilson PHOTOVOLTAIC FABRICATION TECHNICIAN Work Phone: [facility] 10-01-2024 09:29-0500 Diastolic blood pressure 84 mm[Hg] Rogers Wilson PHOTOVOLTAIC FABRICATION TECHNICIAN Work Phone: [facility] 10-01-2024 09:29-0500 Heart rate 80 /min Rogers Wilson PHOTOVOLTAIC FABRICATION TECHNICIAN Work Phone: [facility] 10-01-2024 09:29-0500 Respiratory rate 16 /min Rogers Sanchezs PHOTOVOLTAIC FABRICATION TECHNICIAN Work Phone: [facility] 10-01-2024 09:29-0500 SaO2% (BldA) [Mass fraction] 99 % Rogers Sanchezs PHOTOVOLTAIC FABRICATION TECHNICIAN Work Phone: [facility] 10-01-2024 09:29-0500 Systolic blood pressure 124 mm[Hg] Rogers Sanchezs PHOTOVOLTAIC FABRICATION TECHNICIAN Work Phone: [facility] 09-16-2024 13:00-0500 Body temperature 97.1 [degF] Rogers Sanchezs PHOTOVOLTAIC FABRICATION TECHNICIAN Work Phone: [facility] 09-16-2024 13:00-0500 Diastolic blood pressure 71 mm[Hg] Rogers Sanchezs PHOTOVOLTAIC FABRICATION TECHNICIAN Work Phone: [facility] 09-16-2024 13:00-0500 Heart rate 71 /min Rogers Sanchezs PHOTOVOLTAIC FABRICATION TECHNICIAN Work Phone: [facility] 09-16-2024 13:00-0500 Inhaled oxygen flow rate 2 L/min Rogers Wilson PHOTOVOLTAIC FABRICATION TECHNICIAN Work Phone: [facility] 09-16-2024 13:00-0500 Respiratory rate 22 /min Rogers Sanchezs PHOTOVOLTAIC FABRICATION TECHNICIAN Work Phone: [facility] 09-16-2024 13:00-0500 SaO2% (BldA) [Mass fraction] 100 % Rogers Sanchezs PHOTOVOLTAIC FABRICATION TECHNICIAN Work Phone: [facility] 09-16-2024 13:00-0500 Systolic blood pressure 128 mm[Hg] Rogers Sanchezs PHOTOVOLTAIC FABRICATION TECHNICIAN Work Phone: [facility] 06-24-2024 12:56-0400 Body height 165.1 cm PHOTOVOLTAIC FABRICATION TECHNICIAN Rogers Sanchezs Work Phone: [facility] 06-24-2024 12:56-0400 Body mass index (BMI) [Ratio] 31.1 kg/m2 PHOTOVOLTAIC FABRICATION TECHNICIAN Rogers Wilson Work Phone: [facility] 06-24-2024 12:56-0400 Body temperature 97.9 [degF] PHOTOVOLTAIC FABRICATION TECHNICIAN Rogers Wilson Work Phone: [facility] 06-24-2024 12:56-0400 Body weight 84.82 kg PHOTOVOLTAIC FABRICATION TECHNICIAN Rogers Wilson Work Phone: [facility] 06-24-2024 12:56-0400 Diastolic blood pressure 80 mm[Hg] PHOTOVOLTAIC FABRICATION TECHNICIAN Rogers Wilson Work Phone: [facility] 06-24-2024 12:56-0400 Heart rate 61 /min PHOTOVOLTAIC FABRICATION TECHNICIAN Rogers Wilson Work Phone: [facility] 06-24-2024 12:56-0400 Inhaled oxygen flow rate 2 L/min PHOTOVOLTAIC FABRICATION TECHNICIAN Rogers Wilson Work Phone: [facility] 06-24-2024 12:56-0400 Respiratory rate 18 /min PHOTOVOLTAIC FABRICATION TECHNICIAN Rogers Wilson Work Phone: [facility] 06-24-2024 12:56-0400 SaO2% (BldA) [Mass fraction] 97 % PHOTOVOLTAIC FABRICATION TECHNICIAN Rogers Wilson Work Phone: [facility] 06-24-2024 12:56-0400 Systolic blood pressure 164 mm[Hg] PHOTOVOLTAIC FABRICATION TECHNICIAN Rogers Wilson Work Phone: [facility] 06-04-2024 15:51-0400 Body height 165.1 cm PHOTOVOLTAIC FABRICATION TECHNICIAN Rogers Wilson Work Phone: [facility] 06-04-2024 15:51-0400 Body mass index (BMI) [Ratio] 30.2 kg/m2 PHOTOVOLTAIC FABRICATION TECHNICIAN Rogers Wilson Work Phone: [facility] 06-04-2024 15:51-0400 Body temperature 97.6 [degF] PHOTOVOLTAIC FABRICATION TECHNICIAN Rogers Wilson Work Phone: [facility] 06-04-2024 15:51-0400 Body weight 82.58 kg PHOTOVOLTAIC FABRICATION TECHNICIAN Rogers Wilson Work Phone: [facility] 06-04-2024 15:51-0400 Diastolic blood pressure 61 mm[Hg] PHOTOVOLTAIC FABRICATION TECHNICIAN Rogers Sanchezs Work Phone: [facility] 06-04-2024 15:51-0400 Heart rate 62 /min PHOTOVOLTAIC FABRICATION TECHNICIAN Rogers Wilson Work Phone: [facility] 06-04-2024 15:51-0400 Respiratory rate 18 /min PHOTOVOLTAIC FABRICATION TECHNICIAN Rogers Wilson Work Phone: [facility] 06-04-2024 15:51-0400 SaO2% (BldA) [Mass fraction] 92 % PHOTOVOLTAIC FABRICATION TECHNICIAN Rogers Wilson Work Phone: [facility] 06-04-2024 15:51-0400 Systolic blood pressure 108 mm[Hg] PHOTOVOLTAIC FABRICATION TECHNICIAN Rogers Wilosn Work Phone: [facility] 05-10-2024 11:45-0400 Inhaled oxygen flow rate 2 L/min PHOTOVOLTAIC FABRICATION TECHNICIAN Rogers Wilson Work Phone: [facility] 05-10-2024 09:49-0400 Body temperature 98 [degF] PHOTOVOLTAIC FABRICATION TECHNICIAN Rogers Wilson Work Phone: [facility] 05-10-2024 09:49-0400 Body weight 80.73 kg PHOTOVOLTAIC FABRICATION TECHNICIAN Rogers Wilson Work Phone: [facility] 05-10-2024 09:49-0400 Diastolic blood pressure 71 mm[Hg] PHOTOVOLTAIC FABRICATION TECHNICIAN Rogers Wilson Work Phone: [facility] 05-10-2024 09:49-0400 Heart rate 65 /min PHOTOVOLTAIC FABRICATION TECHNICIAN Rogers Sanchezs Work Phone: [facility] 05-10-2024 09:49-0400 Respiratory rate 18 /min PHOTOVOLTAIC FABRICATION TECHNICIAN Rogers Wilson Work Phone: [facility] 05-10-2024 09:49-0400 SaO2% (BldA) [Mass fraction] 99 % PHOTOVOLTAIC FABRICATION TECHNICIAN Rogers Wilson Work Phone: [facility] 05-10-2024 09:49-0400 Systolic blood pressure 127 mm[Hg] PHOTOVOLTAIC FABRICATION TECHNICIAN Rogers Wilson Work Phone: [facility] 03-29-2024 10:55-0400 Inhaled oxygen flow rate 2 L/min PHOTOVOLTAIC FABRICATION TECHNICIAN Rogers Wilson Work Phone: [facility] 03-29-2024 09:50-0400 Body temperature 98.1 [degF] PHOTOVOLTAIC FABRICATION TECHNICIAN Rogers Wilson Work Phone: [facility] 03-29-2024 09:50-0400 Body weight 76.65 kg PHOTOVOLTAIC FABRICATION TECHNICIAN Rogers Wilson Work Phone: [facility] 03-29-2024 09:50-0400 Diastolic blood pressure 75 mm[Hg] PHOTOVOLTAIC FABRICATION TECHNICIAN Rogers Wilson Work Phone: [facility] 03-29-2024 09:50-0400 Heart rate 65 /min PHOTOVOLTAIC FABRICATION TECHNICIAN Rogers Wilson Work Phone: [facility] 03-29-2024 09:50-0400 Inhaled oxygen flow rate 2 L/min PHOTOVOLTAIC FABRICATION TECHNICIAN Rogers Wilson Work Phone: [facility] 03-29-2024 09:50-0400 Respiratory rate 20 /min PHOTOVOLTAIC FABRICATION TECHNICIAN Rogers Wilson Work Phone: [facility] 03-29-2024 09:50-0400 SaO2% (BldA) [Mass fraction] 100 % PHOTOVOLTAIC FABRICATION TECHNICIAN Rogers Wilson Work Phone: [facility] 03-29-2024 09:50-0400 Systolic blood pressure 137 mm[Hg] PHOTOVOLTAIC FABRICATION TECHNICIAN Rogers Wilson Work Phone: [facility] 01-30-2024 08:54-0400 Body height 157.5 cm Rogers Wilson WOOD ROOM HAND-PHOTOVOLTAIC FABRICATION TECHNICIAN Work Phone: [facility] 01-30-2024 08:54-0400 Body mass index (BMI) [Ratio] 28.68 kg/m2 Rogers Wilson APRN-PHOTOVOLTAIC FABRICATION TECHNICIAN Work Phone: [facility] 01-30-2024 08:54-0400 Body temperature 97.9 [degF] Rogers Wilson WOOD ROOM HAND-PHOTOVOLTAIC FABRICATION TECHNICIAN Work Phone: [facility] 01-30-2024 08:54-0400 Body weight 71.12 kg Rogers Wilson WOOD ROOM HAND-PHOTOVOLTAIC FABRICATION TECHNICIAN Work Phone: [facility] 01-30-2024 08:54-0400 Diastolic blood pressure 60 mm[Hg] Rogers Wilson APRN-PHOTOVOLTAIC FABRICATION TECHNICIAN Work Phone: [facility] 01-30-2024 08:54-0400 Heart rate 63 /min Rogers Wilson APRN-PHOTOVOLTAIC FABRICATION TECHNICIAN Work Phone: [facility] 01-30-2024 08:54-0400 Respiratory rate 24 /min Rogers Wilson WOOD ROOM HAND-PHOTOVOLTAIC FABRICATION TECHNICIAN Work Phone: [facility] 01-30-2024 08:54-0400 SaO2% (BldA) [Mass fraction] 99 % Rogers Wilson WOOD ROOM HAND-PHOTOVOLTAIC FABRICATION TECHNICIAN Work Phone: [facility] 01-30-2024 08:54-0400 Systolic blood pressure 112 mm[Hg] Rogers Wilson APRN-PHOTOVOLTAIC FABRICATION TECHNICIAN Work Phone: [facility] 01-18-2024 13:00-0400 Body temperature 97.6 [degF] PHOTOVOLTAIC FABRICATION TECHNICIAN Rogers Wilson Work Phone: [facility] 01-18-2024 13:00-0400 Diastolic blood pressure 65 mm[Hg] PHOTOVOLTAIC FABRICATION TECHNICIAN Rogers Wilson Work Phone: [facility] 01-18-2024 13:00-0400 Heart rate 62 /min PHOTOVOLTAIC FABRICATION TECHNICIAN Rogers Wilson Work Phone: [facility] 01-18-2024 13:00-0400 Respiratory rate 18 /min PHOTOVOLTAIC FABRICATION TECHNICIAN Rogers Wilson Work Phone: [facility] 01-18-2024 13:00-0400 SaO2% (BldA) [Mass fraction] 100 % PHOTOVOLTAIC FABRICATION TECHNICIAN Rogers Wilson Work Phone: [facility] 01-18-2024 13:00-0400 Systolic blood pressure 122 mm[Hg] PHOTOVOLTAIC FABRICATION TECHNICIAN Rogers Wilson Work Phone: [facility] 12-29-2023 09:56-0400 Inhaled oxygen flow rate 2 L/min PHOTOVOLTAIC FABRICATION TECHNICIAN Rogers Wilson Work Phone: [facility] 12-29-2023 08:52-0400 Body temperature 98.2 [degF] PHOTOVOLTAIC FABRICATION TECHNICIAN Rogers Wilson Work Phone: [facility] 12-29-2023 08:52-0400 Body weight 68.49 kg PHOTOVOLTAIC FABRICATION TECHNICIAN Rogers Wilson Work Phone: [facility] 12-29-2023 08:52-0400 Diastolic blood pressure 68 mm[Hg] PHOTOVOLTAIC FABRICATION TECHNICIAN Rogers Wilson Work Phone: [facility] 12-29-2023 08:52-0400 Heart rate 87 /min PHOTOVOLTAIC FABRICATION TECHNICIAN Rogers Wilson Work Phone: [facility] 12-29-2023 08:52-0400 Inhaled oxygen flow rate 2 L/min PHOTOVOLTAIC FABRICATION TECHNICIAN Rogers Wilson Work Phone: [facility] 12-29-2023 08:52-0400 Respiratory rate 18 /min PHOTOVOLTAIC FABRICATION TECHNICIAN Rogers Wilson Work Phone: [facility] 12-29-2023 08:52-0400 SaO2% (BldA) [Mass fraction] 99 % PHOTOVOLTAIC FABRICATION TECHNICIAN Rogers Wilson Work Phone: [facility] 12-29-2023 08:52-0400 Systolic blood pressure 124 mm[Hg] PHOTOVOLTAIC FABRICATION TECHNICIAN Rogers Wilson Work Phone: [facility] 12-26-2023 14:57-0400 Body height 157.5 cm Rogers Wilson WOOD ROOM HAND-PHOTOVOLTAIC FABRICATION TECHNICIAN Work Phone: [facility] 12-26-2023 14:57-0400 Body mass index (BMI) [Ratio] 27.44 kg/m2 Rogers Wilson WOOD ROOM HAND-PHOTOVOLTAIC FABRICATION TECHNICIAN Work Phone: [facility] 12-26-2023 14:57-0400 Body temperature 97.39 [degF] Rogers Wilson APRN-PHOTOVOLTAIC FABRICATION TECHNICIAN Work Phone: [facility] 12-26-2023 14:57-0400 Body weight 68.04 kg Rogers Wilson APRN-PHOTOVOLTAIC FABRICATION TECHNICIAN Work Phone: [facility] 12-26-2023 14:57-0400 Diastolic blood pressure 56 mm[Hg] Rogers iWlson APRN-PHOTOVOLTAIC FABRICATION TECHNICIAN Work Phone: [facility] 12-26-2023 14:57-0400 Heart rate 73 /min Rogers Wilson APRN-PHOTOVOLTAIC FABRICATION TECHNICIAN Work Phone: [facility] 12-26-2023 14:57-0400 Respiratory rate 20 /min Rogers Wilson APRN-PHOTOVOLTAIC FABRICATION TECHNICIAN Work Phone: [facility] 12-26-2023 14:57-0400 SaO2% (BldA) [Mass fraction] 99 % Rogers Wilson APRN-PHOTOVOLTAIC FABRICATION TECHNICIAN Work Phone: [facility] 12-26-2023 14:57-0400 Systolic blood pressure 100 mm[Hg] Rogers Wilson APRN-PHOTOVOLTAIC FABRICATION TECHNICIAN Work Phone: [facility] 12-07-2023 13:18-0500 Body temperature 98 [degF] PHOTOVOLTAIC FABRICATION TECHNICIAN Rogers Wilson Work Phone: [facility] 12-07-2023 13:18-0500 Diastolic blood pressure 56 mm[Hg] PHOTOVOLTAIC FABRICATION TECHNICIAN Rogers Wilson Work Phone: [facility] 12-07-2023 13:18-0500 Heart rate 59 /min PHOTOVOLTAIC FABRICATION TECHNICIAN Rogers Wilson Work Phone: [facility] 12-07-2023 13:18-0500 Respiratory rate 20 /min PHOTOVOLTAIC FABRICATION TECHNICIAN Rogers Wilson Work Phone: [facility] 12-07-2023 13:18-0500 SaO2% (BldA) [Mass fraction] 99 % PHOTOVOLTAIC FABRICATION TECHNICIAN Rogers Wilson Work Phone: [facility] 12-07-2023 13:18-0500 Systolic blood pressure 115 mm[Hg] PHOTOVOLTAIC FABRICATION TECHNICIAN Rogers Wilson Work Phone: [facility] 11-17-2023 10:30-0500 Body weight 62.59 kg PHOTOVOLTAIC FABRICATION TECHNICIAN Rogers Wilson Work Phone: [facility] 11-17-2023 09:44-0500 Body temperature 98 [degF] PHOTOVOLTAIC FABRICATION TECHNICIAN Rogers Wilson Work Phone: [facility] 11-17-2023 09:44-0500 Diastolic blood pressure 66 mm[Hg] PHOTOVOLTAIC FABRICATION TECHNICIAN Rogers Wilson Work Phone: [facility] 11-17-2023 09:44-0500 Heart rate 72 /min PHOTOVOLTAIC FABRICATION TECHNICIAN Rogers Wilson Work Phone: [facility] 11-17-2023 09:44-0500 Inhaled oxygen flow rate 2 L/min PHOTOVOLTAIC FABRICATION TECHNICIAN Rogers Wilson Work Phone: [facility] 11-17-2023 09:44-0500 Respiratory rate 20 /min PHOTOVOLTAIC FABRICATION TECHNICIAN Rogers Wilson Work Phone: [facility] 11-17-2023 09:44-0500 SaO2% (BldA) [Mass fraction] 100 % PHOTOVOLTAIC FABRICATION TECHNICIAN Rogers Wilson Work Phone: [facility] 11-17-2023 09:44-0500 Systolic blood pressure 142 mm[Hg] PHOTOVOLTAIC FABRICATION TECHNICIAN Rogers iWlson Work Phone: [facility] 10-26-2023 14:23-0500 Inhaled oxygen flow rate 2 L/min PHOTOVOLTAIC FABRICATION TECHNICIAN Rogers Wilson Work Phone: [facility] 10-26-2023 13:13-0500 Body temperature 98.1 [degF] PHOTOVOLTAIC FABRICATION TECHNICIAN Rogers Wilson Work Phone: [facility] 10-26-2023 13:13-0500 Body weight 69.85 kg PHOTOVOLTAIC FABRICATION TECHNICIAN Rogers Wilson Work Phone: [facility] 10-26-2023 13:13-0500 Diastolic blood pressure 66 mm[Hg] PHOTOVOLTAIC FABRICATION TECHNICIAN Rogers Wilson Work Phone: [facility] 10-26-2023 13:13-0500 Heart rate 77 /min PHOTOVOLTAIC FABRICATION TECHNICIAN Rogers Wilson Work Phone: [facility] 10-26-2023 13:13-0500 Inhaled oxygen flow rate 2 L/min PHOTOVOLTAIC FABRICATION TECHNICIAN Rogers Wilson Work Phone: [facility] 10-26-2023 13:13-0500 Respiratory rate 20 /min PHOTOVOLTAIC FABRICATION TECHNICIAN Rogers Wilson Work Phone: [facility] 10-26-2023 13:13-0500 SaO2% (BldA) [Mass fraction] 97 % PHOTOVOLTAIC FABRICATION TECHNICIAN Rogers Wilson Work Phone: [facility] 10-26-2023 13:13-0500 Systolic blood pressure 119 mm[Hg] PHOTOVOLTAIC FABRICATION TECHNICIAN Rogers Wilson Work Phone: [facility] 10-24-2023 09:40-0500 Body temperature 97.9 [degF] PHOTOVOLTAIC FABRICATION TECHNICIAN Rogers Wilson Work Phone: [facility] 10-24-2023 09:40-0500 Diastolic blood pressure 84 mm[Hg] PHOTOVOLTAIC FABRICATION TECHNICIAN Rogers Sanchezs Work Phone: [facility] 10-24-2023 09:40-0500 Heart rate 103 /min PHOTOVOLTAIC FABRICATION TECHNICIAN Rogers Sanchezs Work Phone: [facility] 10-24-2023 09:40-0500 Inhaled oxygen flow rate 2 L/min PHOTOVOLTAIC FABRICATION TECHNICIAN Rogers Wilson Work Phone: [facility] 10-24-2023 09:40-0500 Respiratory rate 20 /min PHOTOVOLTAIC FABRICATION TECHNICIAN Rogers Wilson Work Phone: [facility] 10-24-2023 09:40-0500 SaO2% (BldA) [Mass fraction] 100 % PHOTOVOLTAIC FABRICATION TECHNICIAN Rogers Wilson Work Phone: [facility] 10-24-2023 09:40-0500 Systolic blood pressure 134 mm[Hg] PHOTOVOLTAIC FABRICATION TECHNICIAN Rogers Wilson Work Phone: [facility] 10-24-2023 06:00-0500 Body weight 70.9 kg PHOTOVOLTAIC FABRICATION TECHNICIAN Rogers Wilson Work Phone: [facility] 10-20-2023 16:43-0500 Body height 165.1 cm PHOTOVOLTAIC FABRICATION TECHNICIAN Rogers Wilson Work Phone: [facility] 10-05-2023 10:36-0500 Body temperature 97.9 [degF] PHOTOVOLTAIC FABRICATION TECHNICIAN Rogers Wilson Work Phone: [facility] 10-05-2023 10:36-0500 Body weight 63.59 kg PHOTOVOLTAIC FABRICATION TECHNICIAN Rogers Wilson Work Phone: [facility] 10-05-2023 10:36-0500 Diastolic blood pressure 53 mm[Hg] PHOTOVOLTAIC FABRICATION TECHNICIAN Rogers Wilson Work Phone: [facility] 10-05-2023 10:36-0500 Heart rate 66 /min PHOTOVOLTAIC FABRICATION TECHNICIAN Rogers Wilson Work Phone: [facility] 10-05-2023 10:36-0500 Inhaled oxygen flow rate 2 L/min PHOTOVOLTAIC FABRICATION TECHNICIAN Rogers Wilson Work Phone: [facility] 10-05-2023 10:36-0500 Respiratory rate 20 /min PHOTOVOLTAIC FABRICATION TECHNICIAN Rogers Wilson Work Phone: [facility] 10-05-2023 10:36-0500 SaO2% (BldA) [Mass fraction] 100 % PHOTOVOLTAIC FABRICATION TECHNICIAN Rogers Wilson Work Phone: [facility] 10-05-2023 10:36-0500 Systolic blood pressure 111 mm[Hg] PHOTOVOLTAIC FABRICATION TECHNICIAN Rogers Sanchezs Work Phone: [facility] 09-12-2023 12:52-0500 Body temperature 97.3 [degF] PHOTOVOLTAIC FABRICATION TECHNICIAN Rogers Sanchezs Work Phone: [facility] 09-12-2023 12:52-0500 Body weight 65.31 kg PHOTOVOLTAIC FABRICATION TECHNICIAN Rogers Sanchezs Work Phone: [facility] 09-12-2023 12:52-0500 Diastolic blood pressure 68 mm[Hg] PHOTOVOLTAIC FABRICATION TECHNICIAN Rogers Sanchezs Work Phone: [facility] 09-12-2023 12:52-0500 Heart rate 83 /min PHOTOVOLTAIC FABRICATION TECHNICIAN Rogers Wilson Work Phone: [facility] 09-12-2023 12:52-0500 Respiratory rate 16 /min PHOTOVOLTAIC FABRICATION TECHNICIAN Rogers Wilson Work Phone: [facility] 09-12-2023 12:52-0500 SaO2% (BldA) [Mass fraction] 100 % PHOTOVOLTAIC FABRICATION TECHNICIAN Rogers Wilson Work Phone: [facility] 09-12-2023 12:52-0500 Systolic blood pressure 138 mm[Hg] PHOTOVOLTAIC FABRICATION TECHNICIAN Rogers Sanchezs Work Phone: [facility] 08-28-2023 13:02-0500 Body temperature 98.3 [degF] PHOTOVOLTAIC FABRICATION TECHNICIAN Rogers Wilson Work Phone: [facility] 08-28-2023 13:02-0500 Body weight 66.31 kg PHOTOVOLTAIC FABRICATION TECHNICIAN Rogers Sanchezs Work Phone: [facility] 08-28-2023 13:02-0500 Diastolic blood pressure 69 mm[Hg] PHOTOVOLTAIC FABRICATION TECHNICIAN Rogers Sanchezs Work Phone: [facility] 08-28-2023 13:02-0500 Heart rate 90 /min PHOTOVOLTAIC FABRICATION TECHNICIAN Rogers Wilson Work Phone: [facility] 08-28-2023 13:02-0500 Inhaled oxygen flow rate 2 L/min PHOTOVOLTAIC FABRICATION TECHNICIAN Rogers Wilson Work Phone: [facility] 08-28-2023 13:02-0500 Respiratory rate 20 /min PHOTOVOLTAIC FABRICATION TECHNICIAN Rogers Wilson Work Phone: [facility] 08-28-2023 13:02-0500 SaO2% (BldA) [Mass fraction] 100 % PHOTOVOLTAIC FABRICATION TECHNICIAN Rogers Wilson Work Phone: [facility] 08-28-2023 13:02-0500 Systolic blood pressure 134 mm[Hg] PHOTOVOLTAIC FABRICATION TECHNICIAN Rogers Wilson Work Phone: [facility] 08-22-2023 14:30-0500 Diastolic blood pressure 61 mm[Hg] PHOTOVOLTAIC FABRICATION TECHNICIAN Rogers Wilson Work Phone: [facility] 08-22-2023 14:30-0500 Heart rate 80 /min PHOTOVOLTAIC FABRICATION TECHNICIAN Rogers Wilson Work Phone: [facility] 08-22-2023 14:30-0500 Inhaled oxygen flow rate 2 L/min PHOTOVOLTAIC FABRICATION TECHNICIAN Rogers Wilson Work Phone: [facility] 08-22-2023 14:30-0500 Respiratory rate 20 /min PHOTOVOLTAIC FABRICATION TECHNICIAN Rogers Wilson Work Phone: [facility] 08-22-2023 14:30-0500 SaO2% (BldA) [Mass fraction] 100 % PHOTOVOLTAIC FABRICATION TECHNICIAN Rogers Wilson Work Phone: [facility] 08-22-2023 14:30-0500 Systolic blood pressure 103 mm[Hg] PHOTOVOLTAIC FABRICATION TECHNICIAN Rogers Wilson Work Phone: [facility] 08-22-2023 11:55-0500 Body height 165.1 cm PHOTOVOLTAIC FABRICATION TECHNICIAN Rogers Wilson Work Phone: [facility] 08-22-2023 11:55-0500 Body temperature 97.6 [degF] PHOTOVOLTAIC FABRICATION TECHNICIAN Rogers Wilson Work Phone: [facility] 08-22-2023 11:55-0500 Body weight 63.5 kg PHOTOVOLTAIC FABRICATION TECHNICIAN Rogers Wilson Work Phone: [facility] 08-11-2023 15:18-0500 Diastolic blood pressure 50 mm[Hg] PHOTOVOLTAIC FABRICATION TECHNICIAN Rogers Wilson Work Phone: [facility] 08-11-2023 15:18-0500 Heart rate 68 /min PHOTOVOLTAIC FABRICATION TECHNICIAN Rogers Wilson Work Phone: [facility] 08-11-2023 15:18-0500 Respiratory rate 16 /min PHOTOVOLTAIC FABRICATION TECHNICIAN Rogers Wilson Work Phone: [facility] 08-11-2023 15:18-0500 SaO2% (BldA) [Mass fraction] 100 % PHOTOVOLTAIC FABRICATION TECHNICIAN Rogers Wilson Work Phone: [facility] 08-11-2023 15:18-0500 Systolic blood pressure 105 mm[Hg] PHOTOVOLTAIC FABRICATION TECHNICIAN Rogers Wilson Work Phone: [facility] 08-11-2023 14:13-0500 Inhaled oxygen flow rate 2 L/min PHOTOVOLTAIC FABRICATION TECHNICIAN Rogers Wilson Work Phone: [facility] 08-11-2023 14:00-0500 Body temperature 98 [degF] PHOTOVOLTAIC FABRICATION TECHNICIAN Rogers Wilson Work Phone: [facility] 07-31-2023 13:44-0400 Body temperature 97.7 [degF] PHOTOVOLTAIC FABRICATION TECHNICIAN Rogers Wilson Work Phone: [facility] 07-31-2023 13:44-0400 Body weight 64.77 kg PHOTOVOLTAIC FABRICATION TECHNICIAN Rogers Wilsno Work Phone: [facility] 07-31-2023 13:44-0400 Diastolic blood pressure 68 mm[Hg] PHOTOVOLTAIC FABRICATION TECHNICIAN Rogers Wilson Work Phone: [facility] 07-31-2023 13:44-0400 Heart rate 83 /min PHOTOVOLTAIC FABRICATION TECHNICIAN Rogers Wilson Work Phone: [facility] 07-31-2023 13:44-0400 Respiratory rate 20 /min PHOTOVOLTAIC FABRICATION TECHNICIAN Rogers Wilson Work Phone: [facility] 07-31-2023 13:44-0400 SaO2% (BldA) [Mass fraction] 98 % PHOTOVOLTAIC FABRICATION TECHNICIAN Rogers Wilson Work Phone: [facility] 07-31-2023 13:44-0400 Systolic blood pressure 110 mm[Hg] PHOTOVOLTAIC FABRICATION TECHNICIAN Rogers Wilson Work Phone: [facility] 06-23-2023 13:38-0400 Body temperature 97.5 [degF] PHOTOVOLTAIC FABRICATION TECHNICIAN Rogers Wilson Work Phone: [facility] 06-23-2023 13:38-0400 Body weight 64.95 kg PHOTOVOLTAIC FABRICATION TECHNICIAN Rogers Wilson Work Phone: [facility] 06-23-2023 13:38-0400 Diastolic blood pressure 71 mm[Hg] PHOTOVOLTAIC FABRICATION TECHNICIAN Rogers Wilson Work Phone: [facility] 06-23-2023 13:38-0400 Heart rate 87 /min PHOTOVOLTAIC FABRICATION TECHNICIAN Rogers Wilson Work Phone: [facility] 06-23-2023 13:38-0400 Inhaled oxygen flow rate 2 L/min PHOTOVOLTAIC FABRICATION TECHNICIAN Rogers Wilson Work Phone: [facility] 06-23-2023 13:38-0400 Respiratory rate 20 /min PHOTOVOLTAIC FABRICATION TECHNICIAN Rogers Wilson Work Phone: [facility] 06-23-2023 13:38-0400 SaO2% (BldA) [Mass fraction] 100 % PHOTOVOLTAIC FABRICATION TECHNICIAN Rogers Wilson Work Phone: [facility] 06-23-2023 13:38-0400 Systolic blood pressure 124 mm[Hg] PHOTOVOLTAIC FABRICATION TECHNICIAN Rogers Wilson Work Phone: [facility] 06-23-2023 13:21-0400 Body height 165.1 cm PHOTOVOLTAIC FABRICATION TECHNICIAN Rogers Wilson Work Phone: [facility] Encounters Encounter Date Encounter Type Care Provider Facility Start: 04-14-2025 End: 04-14-2025 ambulatory RANJAN HONG [facility] Start: 03-27-2025 End: 03-27-2025 Office outpatient visit 15 minutes Toro Baron WOOD ROOM HAND-SCREW MACHINE OPERATOR SWISS TYPE Work Phone: [facility] Comment on above: Left leg cellulitis (Primary Dx) Start: 03-27-2025 End: 03-27-[address] [facility] Start: 01-27-2025 Registered Recurring Roegrs Wilson PHOTOVOLTAIC FABRICATION TECHNICIAN [facility] Work [facility]: Start: 01-27-2025 End: 01-27-2025 ambulatory Rogers Wilson PHOTOVOLTAIC FABRICATION TECHNICIAN Work Phone: [facility] Work Phone: Start: 01-27-2025 End: 01-27-2025 Patient encounter procedure Rogers AGUIRREP Work Phone: [facility] Work Phone: Start: 12-16-2024 End: 12-16-2024 Office outpatient visit 25 minutes Toro Baron WOOD ROOM HAND-SCREW MACHINE OPERATOR SWISS TYPE Work Phone: [facility] Comment on above: Arthritis, multiple joint involvement (Primary Dx); Renal cell carcinoma of right kidney ([facility]-H[facility]); Panlobular emphysema ([facility]-HCC); Benign hypertensive heart disease with heart failure ([facility]-H[facility]); Obesity, morbid ([facility]-H[facility]) Start: 12-16-2024 End: 12-16-[address] [facility] Start: 11-25-2024 Registered Recurring Rogers Wilson PHOTOVOLTAIC FABRICATION TECHNICIAN [facility] Work Phone: Start: 11-25-2024 End: 11-25-2024 ambulatory Rogers Wilson PHOTOVOLTAIC FABRICATION TECHNICIAN Work Phone: [facility] Work Phone: Start: 11-25-2024 End: 11-25-2024 Patient encounter procedure Rogers JIANG Work Phone: [facility] Work Phone: Start: 11-04-2024 End: 11-04-2024 ambulatory [facility] Start: 10-28-2024 Registered Recurring Rogers Wilson PHOTOVOLTAIC FABRICATION TECHNICIAN Work Phone: [facility] Work Phone: Start: 10-28-2024 End: 10-28-2024 ambulatory Rogers Wilson PHOTOVOLTAIC FABRICATION TECHNICIAN Work Phone: [facility] Work Phone: Start: 10-28-2024 End: 10-28-2024 Patient encounter procedure Rogres Wilson PHOTOVOLTAIC FABRICATION TECHNICIAN Work Phone: [facility] Work Phone: Start: 10-01-2024 End: 10-01-2024 External Result Encounter Aries Thomas Chavez DO Work Phone: [facility] External Department Unsolicited Start: 10-01-2024 End: 10-01-2024 External Result Encounter Aries Chavez DO Work Phone: [facility] External Department Unsolicited Start: 10-01-2024 End: 10-01-2024 Patient encounter procedure Rogers JIANG Work Phone: [facility] Work Phone: Start: 08-05-2024 End: 08-05-2024 Refill Sonia Rosa SPORTS STATISTICIAN [facility] Comment on above: Chronic obstructive pulmonary disease with acute exacerbation ([facility]-HCC) Start: 07-19-2024 End: 07-22-2024 Refill Sonia Rosa SPORTS STATISTICIAN [facility] Start: 06-24-2024 Registered Recurring PHOTOVOLTAIC FABRICATION TECHNICIAN Rogers Wilson [facility] Work [facility]: Start: 06-24-2024 End: 06-24-2024 ambulatory PHOTOVOLTAIC FABRICATION TECHNICIAN Rogers Wilson Work Phone: [facility] Work Phone: Start: 06-24-2024 End: 06-24-2024 Patient encounter procedure PHOTOVOLTAIC FABRICATION TECHNICIAN Rogers Wilson Work Phone: [facility] Work Phone: Start: 06-18-2024 End: 06-19-2024 External Result Encounter Aries Thomas Chavez DO Work Phone: [facility] External Department Unsolicited Start: 06-18-2024 End: 06-19-2024 External Result Encounter Aries Thomas Chavez DO Work Phone: [facility] External Department Unsolicited Start: 06-04-2024 End: 06-04-2024 ambulatory PHOTOVOLTAIC FABRICATION TECHNICIAN Rogers Wilson Work Phone: [facility] Work Phone: Start: 06-04-2024 End: 06-04-2024 Patient encounter procedure PHOTOVOLTAIC FABRICATION TECHNICIAN Rogers Wilson Work Phone: [facility] Work Phone: Start: 05-10-2024 Registered Recurring PHOTOVOLTAIC FABRICATION TECHNICIAN Rogers Wilson [facility] Work [facility]: Start: 05-10-2024 End: 05-10-2024 ambulatory PHOTOVOLTAIC FABRICATION TECHNICIAN Rogers Wilson Work Phone: [facility] Work Phone: Start: 05-10-2024 End: 05-10-2024 Patient encounter procedure PHOTOVOLTAIC FABRICATION TECHNICIAN Rogers Wilson Work Phone: [facility] Work Phone: Start: 04-23-2024 End: 04-23-2024 ambulatory [facility] Start: 03-29-2024 Registered Recurring PHOTOVOLTAIC FABRICATION TECHNICIAN Rogers Wilson Work Phone: [facility] Work Phone: Start: 03-29-2024 End: 03-29-2024 ambulatory PHOTOVOLTAIC FABRICATION TECHNICIAN Rogers Wilson Work Phone: [facility] Work Phone: Start: 03-29-2024 End: 03-29-2024 Patient encounter procedure PHOTOVOLTAIC FABRICATION TECHNICIAN Rogers Wilson Work Phone: [facility] Work Phone: Start: 03-21-2024 End: 03-21-2024 Refill Rogers Wilson WOOD ROOM HAND-PHOTOVOLTAIC FABRICATION TECHNICIAN Work Phone: [facility] Comment on above: Anxiety Start: 01-30-2024 End: 01-30-2024 Office outpatient visit 25 minutes Rogers Wilson WOOD ROOM HAND-PHOTOVOLTAIC FABRICATION TECHNICIAN Work Phone: [facility] Comment on above: Chronic obstructive pulmonary disease with acute exacerbation (CMS-HCC) (Primary Dx); Chronic hypoxic respiratory failure (CMS-HCC); Renal cell carcinoma of right kidney (CMS-HCC) Start: 12-29-2023 Registered Recurring PHOTOVOLTAIC FABRICATION TECHNICIAN Rogers Wilson Work Phone: [facility] Work Phone: Start: 12-29-2023 End: 12-29-2023 ambulatory PHOTOVOLTAIC FABRICATION TECHNICIAN Rogers Wilson Work Phone: [facility] Work Phone: Start: 12-29-2023 End: 12-29-2023 Patient encounter procedure PHOTOVOLTAIC FABRICATION TECHNICIAN Rogers Wilson Work Phone: [facility] Work Phone: Start: 12-26-2023 End: 12-26-2023 Office outpatient visit 15 minutes Rogers Wilson WOOD ROOM HAND-PHOTOVOLTAIC FABRICATION TECHNICIAN Work Phone: [facility] Comment on above: Acute recurrent fron elena sinusitis (Primary Dx); Nausea and vomiting, unspecified vomiting type Start: 11-17-2023 Registered Recurring PHOTOVOLTAIC FABRICATION TECHNICIAN Rogers Wilson Work Phone: [facility] Work Phone: Start: 11-17-2023 End: 11-17-2023 ambulatory PHOTOVOLTAIC FABRICATION TECHNICIAN Rogers Wilson Work Phone: [facility] Work Phone: Start: 11-17-2023 End: 11-17-2023 Patient encounter procedure PHOTOVOLTAIC FABRICATION TECHNICIAN Rogers Wilson Work Phone: [facility] Work Phone: Start: 11-15-2023 External Result Encounter Aries Thomas Chavez DO Work Phone: [facility] External Department Unsolicited Start: 11-15-2023 External Result Encounter Aries Guzman Scott DO Work Phone: [facility] External Department Unsolicited Start: 10-26-2023 Registered Recurring PHOTOVOLTAIC FABRICATION TECHNICIAN Rogers Wilson Work Phone: [facility] Work Phone: Start: 10-26-2023 End: 10-26-2023 ambulatory PHOTOVOLTAIC FABRICATION TECHNICIAN Rogers Wilson Work Phone: [facility] Work Phone: Start: 10-26-2023 End: 10-26-2023 Patient encounter procedure PHOTOVOLTAIC FABRICATION TECHNICIAN Rogers Wilson Work Phone: [facility] Work Phone: Start: 10-20-2023 Non-patient / Non-visit PHOTOVOLTAIC FABRICATION TECHNICIAN Cj Wilson Work Phone: [facility] Work Phone: Start: 10-19-2023 Non-patient / Non-visit PHOTOVOLTAIC FABRICATION TECHNICIAN Cj Wilson Work Phone: [facility] Work Phone: Start: 10-05-2023 End: 10-05-2023 ambulatory PHOTOVOLTAIC FABRICATION TECHNICIAN Rogers Wilson Work Phone: [facility] Work Phone: Start: 10-05-2023 End: 10-05-2023 Registered Recurring PHOTOVOLTAIC FABRICATION TECHNICIAN Rogers Wilson [facility] Phone: [facility] Work Phone: Start: 10-05-2023 End: 10-05-2023 ambulatory PHOTOVOLTAIC FABRICATION TECHNICIAN Rogers Wilson Work Phone: [facility] Work Phone: Start: 10-05-2023 End: 10-05-2023 Registered Recurring PHOTOVOLTAIC FABRICATION TECHNICIAN Rogers Wilson [facility] Work Phone: Start: 09-12-2023 End: 09-12-2023 ambulatory PHOTOVOLTAIC FABRICATION TECHNICIAN Rogers Wilson Work Phone: [facility] Work Phone: Start: 09-12-2023 End: 09-12-2023 Registered Recurring PHOTOVOLTAIC FABRICATION TECHNICIAN Rogers Wilson [facility] Work Phone: Start: 08-28-2023 End: 08-28-2023 ambulatory PHOTOVOLTAIC FABRICATION TECHNICIAN Rogers Wilson Work Phone: [facility] Work Phone: Start: 08-28-2023 End: 08-28-2023 Registered Recurring PHOTOVOLTAIC FABRICATION TECHNICIAN Rogers Sanchezs Work [facility] Work Phone: Start: 08-22-2023 End: 08-22-2023 Admission to same day surgery center PHOTOVOLTAIC FABRICATION TECHNICIAN Rogers Wilson Work Phone: [facility] [place] Work Phone: Start: 08-22-2023 End: 08-22-2023 ambulatory PHOTOVOLTAIC FABRICATION TECHNICIAN Rogers Wilson Work Phone: [facility] Work Phone: Start: 08-11-2023 Registered Recurring PHOTOVOLTAIC FABRICATION TECHNICIAN Rogers Wilson Work Phone: [facility] Work Phone: Start: 07-31-2023 End: 07-31-2023 ambulatory PHOTOVOLTAIC FABRICATION TECHNICIAN Rogers Wilson Work Phone: [facility] Work Phone: Start: 07-31-2023 End: 07-31-2023 Registered Recurring PHOTOVOLTAIC FABRICATION TECHNICIAN Rogers Wilson Work Phone: [facility] Work Phone: Start: 06-23-2023 End: 06-23-2023 ambulatory PHOTOVOLTAIC FABRICATION TECHNICIAN Rogers Wilson Work Phone: [facility] Work Phone: Start: 06-23-2023 End: 06-23-2023 Registered Recurring PHOTOVOLTAIC FABRICATION TECHNICIAN Rogers Wilson Work Phone: [facility] Work Phone: Start: 04-27-2023 ambulatory [place] Facility:[facility] Start: 02-28-2023 End: 03-01-[address] DOCTOR MÁRQUEZ Facility:[facility] Start: 02-09-2023 ambulatory [place] Facility:[facility] Start: 02-07-2023 End: 02-08-[address] DOCTOR MÁRQUEZ Facility:[facility] Start: 01-24-2023 End: 01-25-2023 Evaluation and management of inpatient DR FREDDY BARRAZA Facility:[facility] Procedures Date Procedure Procedure Detail Performing Clinician Start: 03-27-2025 Adult depression screening assessment Toro Baron WOOD ROOM HAND-SCREW MACHINE OPERATOR SWISS TYPE Work Phone: Start: 12-16-2024 Follow-up visit Follow-up TORO BARON Start: 12-16-2024 Adult depression screening assessment Toro Baron WOOD ROOM HAND-SCREW MACHINE OPERATOR SWISS TYPE Work Phone: Start: 10-01-2024 Complete blood count with white cell differential, automated Aries Chavez DO Work Phone: Start: 06-18-[address] Aries Thomas GalvezPadinmotion DO Work Phone: Start: 06-18-2024 Complete blood count with white cell differential, automated Aries Chavez DO Work Phone: Start: 06-04-2024 COVID Antigen (POC) PHOTOVOLTAIC FABRICATION TECHNICIAN Rogers Wilson Work Phone: Start: 03-14-2024 Computed tomography of abdomen and pelvis with contrast PHOTOVOLTAIC FABRICATION TECHNICIAN Rogers Wilson Work Phone: Start: 03-14-2024 CT of thorax with contrast PHOTOVOLTAIC FABRICATION TECHNICIAN Rogers Wilson Work Phone: Start: 01-30-2024 Adult depression screening assessment Rogers Wilson WOOD ROOM HAND-PHOTOVOLTAIC FABRICATION TECHNICIAN Work Phone: Start: 12-26-2023 Adult depression screening assessment Rogers Wilson WOOD ROOM HAND-PHOTOVOLTAIC FABRICATION TECHNICIAN Work Phone: Start: 11-15-2023 Complete blood count with white cell differential, automated Aries Chavez DO Work Phone: Start: 10-31-2023 Duplex scan of lower limb veins PHOTOVOLTAIC FABRICATION TECHNICIAN Rogers Wilson Work Phone: Start: 09-12-2023 Bacteria identified in Urine by Culture Rogers Wislon PHOTOVOLTAIC FABRICATION TECHNICIAN Work Phone: Start: 09-12-2023 Urine culture PHOTOVOLTAIC FABRICATION TECHNICIAN Rogers Wilson Work Phone: Start: 08-22-2023 Ultrasonic guidance for needle biopsy PHOTOVOLTAIC FABRICATION TECHNICIAN Rogers Wilson Work Phone: Start: 07-31-2023 Bacteria identified in Urine by Culture Rogers JIANG Work Phone: Start: 07-31-2023 Urine culture PHOTOVOLTAIC FABRICATION TECHNICIAN Rogers Wilson Work Phone: Start: 01-25-2023 Insertion of Infusion Device into Right Femoral Vein, Percutaneous Approach DR FREDDY BARRAZA Start: 01-25-2023 Insertion of Endotracheal Airway into Trachea, Via Natural or Artificial Opening DR FREDDY BARRAZA Plan of Treatment Date Care Activity Detail Author Start: 03-27-2026 Depression Screening Depression Screening [facility] Start: 03-27-2026 Fall Risk Screening Fall Risk Screening [facility] Start: 03-27-2026 Tobacco Screening Tobacco Screening [facility] Start: 12-16-2025 Adult BMI Follow Up Plan Adult BMI Follow Up Plan [facility] Start: 12-16-2025 Adult BMI Screening Adult BMI Screening [facility] Start: 12-16-2025 Depression Screening Depression Screening [facility] Start: 12-16-2025 Tobacco Screening Tobacco Screening [facility] Start: 06-02-2025 Influenza vaccination Influenza Vaccine [facility] Start: 01-29-2025 Adult BMI Screening Adult BMI Screening [facility] Start: 01-29-2025 Depression Screening Depression Screening [facility] Start: 01-29-2025 Fall Risk Screening Fall Risk Screening [facility] Start: 01-29-2025 Tobacco Screening Tobacco Screening [facility] Start: 12-25-2024 Adult BMI Screening Adult BMI Screening [facility] Start: 12-25-2024 Depression Screening Depression Screening [facility] Start: 12-25-2024 Fall Risk Screening Fall Risk Screening [facility] Start: 12-25-2024 Tobacco Screening Tobacco Screening [facility] Start: 10-28-2024 [facility] Start: 10-25-2024 [facility] Start: 10-01-2024 [facility] Start: 09-16-2024 [facility] Start: 09-13-2024 [facility] Start: 08-05-2024 [facility] Start: 08-05-2024 [facility] Start: 06-24-2024 [facility] Start: 06-22-2024 Medicare Annual Wellness Visit Medicare Annual Wellness Visit [facility] [employer] Start: 06-21-2024 [facility] Start: 06-02-2024 Influenza vaccination Influenza Vaccine [facility] [employer] Start: 05-10-2024 [facility] Start: 03-29-2024 [facility] Start: 03-29-2024 [facility] Start: 03-06-2024 [facility] Start: 01-30-2024 End: 01-29-2025 XR Chest PA and Lateral X-ray chest 2 views Imaging Routine Chronic obstructive pulmonary disease with acute exacerbation (CMS-HCC) Expected: 01/30/2024, Expires: 01/29/2025 [employer] Work Phone: Comment on above: Expected: 01/30/2024, Expires: Start: 01-18-2024 [facility] Start: 12-29-2023 [facility] Start: 12-28-2023 Erythropoietin (EPO) [Units/volume] in Serum or Plasma [facility] Start: 12-19-2023 [facility] Start: 12-07-2023 [facility] Start: 11-28-2023 [facility] Start: 11-17-2023 [facility] Start: 11-13-2023 [facility] Start: 10-26-2023 [facility] Start: 10-24-2023 [facility] Start: 10-24-2023 [facility] Start: 10-22-2023 Referral to palliative care physician [facility] Start: 10-20-2023 Administration of prophylactic treatment [facility] Start: 10-19-2023 Hospital admission [facility] Start: 10-19-2023 Referral to oncologist [facility] Start: 10-05-2023 [facility] Start: 10-04-2023 Adrenocorticotropic hormone measurement [facility] Start: 09-14-2023 [facility] Start: 09-14-2023 [facility] Start: 08-22-2023 [facility] Start: 08-22-2023 Ultrasonic guidance for needle biopsy [facility] Start: 08-11-2023 [facility] Start: 08-04-2023 [facility] Start: 07-31-2023 [facility] Start: 06-02-2023 Influenza vaccination Influenza Vaccine [facility] Start: 1973 Administration of varicella zoster vaccine Zoster (Shingles) Vaccine (1 of 2) [facility] Start: 1973 DTaP,Tdap and Td Vaccines (1 - Tdap) DTaP,Tdap and Td Vaccines (1 - Tdap) [facility] Start: 1972 Adult BMI Follow Up Plan Adult BMI Follow Up Plan [facility] Adrenocorticotropic hormone measurement [facility] Adrenocorticotropic hormone measurement [facility] Adrenocorticotropic hormone measurement [facility] Adrenocorticotropic hormone measurement [facility] Adrenocorticotropic hormone measurement [facility] Adrenocorticotropic hormone measurement [facility] Bacteria identified in Stool by Culture [facility] Bacterial cytolethal distending toxin cdt gene [Presence] in Unspecified specimen by BJORN with probe detection [facility] Bilirubin measurement, urine [facility] Campylobacter coli+jejuni+upsaliensis DNA [Presence] in Stool by BJORN with non-probe detection [facility] Color of Urine [facility] Comprehensive metabo lic 1999 panel - Serum or Plasma [facility] Comprehensive metabo lic 1999 panel - Serum or Plasma [facility] Comprehensive metabo lic 1999 panel - Serum or Plasma [facility] Comprehensive metabo lic 1999 panel - Serum or Plasma [facility] Comprehensive metabo lic 1999 panel - Serum or Plasma Comprehensive metabolic panel Lab STAT 11/15/2023 9:16 AM [facility] [employer] Work Phone: Comprehensive metabo lic 1999 panel - Serum or Plasma [facility] Comprehensive metabo lic 1999 panel - Serum or Plasma [facility] Comprehensive metabo lic 1999 panel - Serum or Plasma [facility] Comprehensive metabo lic 1999 panel - Serum or Plasma [facility] Comprehensive metabo lic 1999 panel - Serum or Plasma Comprehensive metabolic panel Lab Routine 06/18/2024 9:28 AM EDT [facility] [employer] Work Phone: Comprehensive metabo lic 1999 panel - Serum or Plasma Comprehensive metabolic panel Lab STAT 10/01/2024 8:10 AM EST [facility] Work Phone: Comprehensive metabo lic 1999 panel - Serum or Plasma [facility] Comprehensive metabo lic 1999 panel - Serum or Plasma [facility] Cortisol Cortisol Lab STA T 11/15/2023 9:16 AM EST [facility] CT Abdomen and Pelvi s W contrast IV [facility] CT Abdomen and Pelvi s W contrast IV [facility] CT Abdomen and Pelvi s W contrast IV [facility] CT Abdomen and Pelvi s W contrast IV [facility] CT Abdomen and Pelvi s W contrast IV [facility] CT Abdomen and Pelvi s W contrast IV [facility] CT Chest W contrast IV [facility] CT Chest W contrast IV [facility] CT Chest W contrast IV [facility] CT Chest W contrast IV [facility] CT guided biopsy [facility] Detection of hemoglobin [facility] EKG 12 channel panel [facility] Erythropoietin (EPO) [Units/volume] in Serum or Plasma [facility] Escherichia coli enteropathogenic eae gene [Presence] in Stool by BJORN with non-probe [facility] Escherichia coli enterotoxigenic ltA+st1a+st1b genes [Presence] in Stool by BJORN with [facility] Escherichia coli O15 7 DNA [Presence] in Stool by BOJRN with non-probe detection [facility] Escherichia coli Stx 1 and Stx2 toxin stx1+stx2 genes [Presence] in Stool by BJORN with non-probe detection [facility] Glucose [Mass/volume ] in Urine by Test strip [facility] Hepatic function panel [facility] Infectious agent gen otype identification [facility] Measurement of keton es in urine using dipstick [facility] Patient Education [facility] Kidn ey Biopsy [facility] Work Phone: Patient referral [facility] Work Phone: Plesiomonas shigello ides DNA [Presence] in Stool by BJORN with non-probe detection [facility] Protein measurement, urine [facility] [place] Salmonella enterica+ bongori DNA [Presence] in Stool by BJORN with non-probe detection [facility] Shigella species+EIE C invasion plasmid antigen H ipaH gene [Presence] in Stool by BJORN [facility] Urinalysis, specific gravity measurement [facility] Urine dipstick for nitrite [facility] [place] Urine dipstick for s pecific gravity [facility] Urine pH test [facility] Urobilinogen concent ration, test strip measurement [facility] US Lower extremity v ein - bilateral [facility] Vibrio cholerae DNA [Presence] in Stool by BJORN with non-probe detection [facility] Vibrio cholerae+parahaemolyticus+vu lnificus DNA [Presence] in Stool by BJORN with non-probe detection [facility] Immunizations Immunization Date Immunization Notes Care Provider Lawrence garner 07-24-2024 influenza virus vaccine, unspecified formulation Toro Baron WOOD ROOM HAND-SCREW MACHINE OPERATOR SWISS [employer] Work Phone: [facility] 07-27-2021 Influenza Vaccine, Quadrivalent, Adjuvanted Rogers Wilson WOOD ROOM HAND-PHOTOVOLTAIC FABRICATION TECHNICIAN Work Phone: [facility] 07-27-2021 influenza virus vaccine, unspecified formulation Rogers Wilson WOOD ROOM HAND-PHOTOVOLTAIC FABRICATION TECHNICIAN Work Phone: [facility] 09-21-2020 COVID-19, mRNA, LNP- S, PF, 100mcg/0.5mL Dose Rogers Wilson WOOD ROOM HAND-PHOTOVOLTAIC FABRICATION TECHNICIAN Work Phone: [facility] Payers Date Payer Category Payer Self-pay 2023 Private Health Insurance [facility] [id number] 2019 Managed Care Other (unspecified) [facility] [id number] 2019 Medicare [id number] 2019 Unknown [id number] 2019 Unknown [id number] 1959 Medicare [id number] 1959 Unknown [id number] 1954 Unknown [id number] 1954 Unknown [id number] [id number] 1954 Unknown [id number] [id number] 1954 Unknown [id number] [id number] 1954 Unknown [id number] [id number] 1954 Unknown [id number] 1954 Unknown [id number] Unknown [id number] Social History Date Type Detail Facility Start: 06-23-2023 End: 01-30-2024 Tobacco smoking status NMIS Ex-smoker (finding) [facility] Start: 1955 Sex Assigned At Female [facility] Tobacco smoking stat [facility] Tobacco smoking consumption unknown [facility] Start: 1955 Sex Assigned At Not on file [facility] Start: 06-22-2023 End: 03-27-2025 Gender identity Not on file [facility] Start: 11-18-2020 End: 10-28-2024 Sex Female (finding) [facility] History of tobacco use Current smoker [facility] History of tobacco use Cigarette Smoker P [facility] Start: 02-07-2023 End: 01-30-2024 Tobacco use and exposure Smokeless tobacco non-user [facility] Start: 01-30-2024 End: 03-27-2025 Alcoholic beverage intake Lifetime non-drinker (finding) [facility] Start: 06-22-2023 End: 03-27-2025 History of Social function [facility] Do you belong to any clubs or organizations such as mandaen groups, unions, fraternal or athletic groups, or school groups? No [facility] Are you now , , , , never or living with a partner? [facility] How often to you hav e a drink containing alcohol? Never [facility] How many standard dr inks containing alcohol do you have on a typical day? Patient does not drink [facility] How hard is it for y ou to pay for the very basics like food, housing, medical care, and heating Not very hard [facility] Do you feel stress - tense, restless, nervous, or anxious, or unable to sleep at night because your mind is troubled all the time - these days [OSQ] Only a little [facility] Goals Date Patient Goal Desired Activity /State Clinical Notes 2019 to 04-14-2025 Toro Baron, CHAD-SCREW MACHINE OPERATOR SWISS TYPE - 03/27/2025 1:20 PM EDTToro Baron APRN- SCREW MACHINE OPERATOR SWISS TYPE - 12/16/2024 11:20 AM EDTTelephone Encounter - Sonia Lee, [facility] - 08/05/2024 12:41 PM EST Note Date & Type Note Facility 04-14-2025 Note SUBJECTIVE Reason for Visit: Perla Ibarra is a 69 y.o. year old female patient being seen for 6-month follow-up. HPI: Perla Ibarra is a 69 y.o. 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 Otherwise, history of coronary artery disease, prior tobacco use, probable COPD, and renal cell carcinoma. Historically, she was transferred from [facility] to [facility] for evaluation of acute respiratory [...] mg daily, and aspirin 81 mg daily. 04/14/2025 office visit: Patient seen evaluated in the office today, she is accompanied by her partner Denies chest pain, palpitations, lightheadedness or dizziness. VICTORIA is stable, remains on 2L NC her baseline. Endorses LE edema. She was recently diagnosed with leg cellulitis in late March. Finished antibiotics. States leg swelling is much better . DVT scans were negative. 11/04/2024 office visit (Dr. Bridges): Patient here for 6 mo follow up [...] Veins: normal jugular venous pressure. Lungs: Auscultation: no rales or rhonchi and normal breath sounds. Cardiovascular: Rate And Rhythm: regula Heart Sounds: normal S1 and s2; Systolic Murmur: not heard. Diastolic Murmur: not heard. Extremities: Trace LE edema. Peripheral Pulses: Pulses: full and equal in all extremities except if noted. Abdomen: Inspection and Palpation: non distended or tender and soft. Musculoskeletal: Inspection: no joint tenderness or swelling. Neurologic: Gait: normal gait. Psychiatric: Mental Status: alert and normal affect. Skin: Inspection and Palpation: warm and dry. Allergies: Allergies[5] Outpatient Medications: Current Outpatient Medications Medication Instructions albuterol 90 mcg/actuation inhaler Every 4 hours atorvastatin (LIPITOR) 20 mg, oral, Nightly escitalopram (LEXAPRO) 5 mg, oral, Daily RT famotidine (Pepcid) 20 mg tablet take 1 tablet by mouth every evening for HEARTBURN levothyroxine (SYNTHROID, LEVOXYL) 100 mcg, oral, Daily loratadine (CLARITIN) 10 mg, oral, Daily PRN metoprolol succinate XL (TOPROL-XL) 12.5 mg, oral, Once Daily, Do not crush or chew. pantoprazole (PROTONIX) 40 mg, oral, Daily sacubitril-valsartan (Entresto) 24-26 mg tablet 1 tablet, oral, 2 times daily spironolactone (ALDACTONE) 12.5 mg, oral, Once Daily tiotropium-olodateroL (Stiolto Respimat) 2.5-2.5 mcg/actuation mist inhaler Every 24 hours Recent Labs: No visits with results within 6 Month(s) from this visit. Latest known visit with results is: No results displayed because visit has over 200 results. Labs reviewed 03/20/2025: WBC 9.5, hemoglobin 11.6, platelets 241 Potassium 4.4, sodium 134, BUN 17, creatinine 0.98, EGFR 56, glucose 104, calcium 9.6, proBNP 150 I have personally reviewed and anaylzed the following laboratory results above. These findings have been analyzed in the context of [...] dilation of the right ovarian vein. No de (more content not included)... [facility] 03-27-2025 History of Present illness Narrative Images from the original note were not included. [address] [place] [address] SUBJECTIVE: Patient ID: Perla Ibarra is a 69 y.o. female. Chief Complaint Patient presents with ER f/u [place] Patient went to [place] [facility] on 03/20/26 for complaints of left lower leg swelling, redness, and discomfort. She did have venous duplex which ruled out DVT. She was diagnosed with cellulitis. Was prescribed 7 day course of cephalexin, her last dose is today. Today, she feels her symptoms are approximately 50% better. She is still experiencing mild swelling, warmth, and erythema around her ankle and foot. There is still mild discomfort. The following portions of the patient's history were reviewed and updated as appropriate: allergies, current medications, past family history, past medical history, past social history, past surgical history and problem list. Past Surgical History: Procedure Laterality Date WISDOM TOOTH EXTRACTION Past Medical History: Diagnosis Date Anxiety Cancer ([facility]) Chronic headache COPD (chronic obstructive pulmonary disease) ([facility]) Hyperlipidemia Myocardial infarction ([facility]) TB (tuberculosis), treated Immunization History Administered Date(s) [...] for menstrual problem and pelvic pain. Musculoskeletal: Negative. Skin: Negative. Mild swelling, warmth, and redness left lower leg / foot Allergic/Immunologic: Negative. Neurological: Negative for syncope and facial asymmetry. Hematological: Does not bruise/bleed easily. Psychiatric/Behavioral: Negative. PHYSICAL EXAMINATION: Vitals: 03/27/25 1318 BP: 118/68 BP Site: Left Arm BP Postition: Sitting BP CUFF SIZE: M (9-13 inches) Pulse: 100 Resp: 20 Temp: 37.1 C (98.7 F) TempSrc: Tympanic SpO2: 98% Weight: 99 kg (218 lb 3.2 oz) Height: 157.5 cm (5' 2.01 ) Patient noted to have elevated BMI [...] Capillary refill takes less than 2 seconds. Findings: Erythema present. Comments: Left lower leg. Mild erythema, warmth, and swelling surrounding ankle and pedal region of foot Neurological: Mental Status: She is alert and oriented to person, place, and time. Deep Tendon Reflexes: Reflexes are normal and symmetric. Psychiatric: Mood and Affect: Mood normal. Behavior: Behavior normal. Thought Content: Thought content normal. Judgment: Judgment normal. ASSESSMENT/PLAN: Perla was seen today for er f/u [place]. Diagnoses and all orders for this visit: Left leg cellulitis - CEPHalexin (KEFLEX) 500 mg capsule; Take 1 capsule (500 mg total) by mouth 3 (three) times a day for 7 days. - triamcinolone (KENALOG) 0.5 % ointment; Apply 1 Application topically in the morning and 1 Application before bedtime. Continue additional 7 days of cephalexin 500 mg oral TID Elevate leg for swelling ALL QUESTIONS ANSWERED Total time spent was 25 minutes: Preparing to see the patient (e.g., review of tests) Obtaining and/or reviewing separately obtained history Performing a medically appropriate examination and/or evaluation Counseling and educating the patient/family/caregiver Ordering medications, tests, or procedures Follow-up: Medicare wellness BURT Tilley 03/27/25 5130 documented in this encounter [employer] 01-27-2025 Progress note [facility] 12-16-2024 History of Present illness Narrative Images from the original note were not included. [address] [place] [address] SUBJECTIVE: Patient ID: Perla Ibarra is a 69 y.o. female. Chief Complaint Patient presents with Follow-up Is accommodated by significant other. She is previous patient of Rogers Wilson APRN She is monitored by oncology, cardiology, and pulmonology. She currently has right renal cell carcinoma.States was found while hospitalized after having a NV, December 2022. Monitored by Dr. Aries Chavez at [facility] for renal carcinoma. She states he also [...] Past Medical History: Diagnosis Date Anxiety Cancer ([facility]) Chronic headache COPD (chronic obstructive pulmonary disease) ([facility]) Hyperlipidemia Myocardial infarction ([facility]) TB (tuberculosis), treated Immunization History Administered Date(s) [...] days. Renal cell carcinoma of right kidney ([facility]) Panlobular emphysema ([facility]) - nebulizer supplies Benign hypertensive heart disease with heart failure ([facility]) Obesity, morbid ([facility]) Primary joints osteoarthritis. Most painful site is bilateral shoulder pain. States pain was better when she was on steroids last month. After 3 days of stopping steroids, the pain has been uncontrolled. She has tried Tylenol but is not effective. Unable to take NSAIDS per oncologist and ruling technician. We discussed Tramadol today. She is [...] was found while hospitalized after having a NV, December 2022. Monitored by Dr. Aries Chavez at [facility] for renal carcinoma. She states he also monitors her hypothyroidism. Her chemotherapy, Keytruda, is on hold right now. Plan to restart in the near future. There was possible concern about drug causing rashes. 5. History of CHF No current exacerbation Is managed by Cardiology, [facility] Recent echocardiogram November 2024 -Mild cocentric left ventricular hypertrophy with normal systolic function Normal LVEF of 55% Normal diastolic function Normal right-sided pressures Her NV history includes the following: transferred from [facility] to [facility] for evaluation of acute respiratory [...] Tilley 12/16/24 1433 documented in this encounter [facility] [employer] 11-04-2024 Note Cardiology Clinic No te Subjective Perla Ibarra is a 69 y.o. year old female patient with nonischemic cardiomyopathy, heart failure reduced ejection fraction with EF 45%, coronary artery disease, tobacco use, probable COPD, and right renal mass concerning for renal cell carcinoma. She was transferred from [facility] to [facility] for evaluation of acute respiratory [...] Allergen Reactions Erythromycin Unknown Per report from [facility] Current Outpatient Medications: albuterol 90 mcg/actuation inhaler, [...] HDL 46 01/25/2023 (more content not included)... [facility] 08-05-2024 Miscellaneous Notes Can you make sure it has an ICD code with it so they can bill medicare part B documented in this encounter [facility] 08-05-2024 Telephone encounter Note Can you make sure it has an ICD code with it so they can bill medicare part B [facility] 04-23-2024 Note Patient here for 6 [...] All other systems reviewed and are negative. [facility] 04-23-2024 Note Cardiovascular Medic [facility] SUBJECTIVE Chief Complaint Patient presents [...] disease) (CMS/HCC) NSTEMI (non-ST elevated myocardial infarction) ([facility]) PNA (pneumonia) Tuberculosis Family History Problem Relation Name Age of Onset Tuberculosis Mother Heart attack Brother Heart failure Maternal Grandmother Heart attack Maternal Grandfather Social History Tobacco Use Smoking status: Former Types: Cigarettes Quit date: 01/26/2023 Years since quittin.2 Smokeless tobacco: Never Substance Use Topics Alcohol use: Never Drug use: Never Allergies Allergen Reactions Erythromycin Unknown Per report from [place] [facility] JAYLYN Constitutional: Positive for malaise/fatigue and weight gain [...] is soft. Musculos (more content not included)... [facility] 01-30-2024 History of Present illness Narrative Subjective [...] nursing note reviewed. 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 Constitutional: Appearance: She is ill-appearing. HENT: Head: [...] obstructive pulmonary disease with acute exacerbation (CMS-HCC) - X-ray chest 2 views; Future - albuterol (PROVENTIL,VENTOLIN) 2.5 mg /3 mL (0.083 %) nebulizer solution; Inhale 3 mL (2.5 mg total) by nebulization every 6 (six) hours as needed for wheezing. Chronic hypoxic respiratory failure (CMS-HCC) Renal cell carcinoma of right kidney ([facility]) Other orders - amoxicillin-pot clavulanate (AUGMENTIN) 875-125 [...] Watson 01/30/24 1210 documented in this encounter [employer] 12-29-2023 Progress note Note Date/Time December 29, 2023 8:50am [facility] [place] [address] Cancer Center Note Signed Patient: Perla Ibarra MR# : [id number] : 1955 Acct:[id number] Age/Sex: 68 / F Type: REG AMB Date of Service: 12/29/23 Copies to: DEIDRE Barrett~ Assessment & Plan A/P (1) Clear cell renal cell carcinoma: Plan Right renal Cancer, [id number] cm with extension into right renal vein and inferiorvena cava.. 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 Has seen Dr. Mathew in [place] for consideration of nephrectomy. Determined not a [...] 6 of 6 Cycle Day Next Admin 1 21 No Active Chemotherapy History of Present Illness [...] Xanax as needed. 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 Also follows with Dr. Cervantes and Dr. Quach of urology. She had a hospitalization in December 2022 and ultimately was life flighted to [facility] for a myocardial infarction and ischemic [...] medication 2 days ago. She presented to [facility] where she was hydrated and subsequently transferred to [facility]. --She specifically denies any anginal chest pain, but does note some dyspnea that started a few days after starting the axitinib. She notes that she was shaking all over but did not fall to the ground or lose consciousness therefore it was not felt to be a seizure. 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 -- At [facility] she was noted to have white [...] up to inpatient stay.She was hospitalized at [facility] from 10/19/2023-10/25/2023 for headache, abdominal pain, hyponatremia, [...] Reasons: 6 wk f/u with scans at [place], Clear cell renal cell carcinoma Accompanied by: [...] for a 6 week follow up with [facility] labs and outside imaging for review. Has treatment today. [facility] Medical History Medical History Hyponatremia Chronic hypoxic respiratory failure 2 L Oxygen via NC at all times. 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 Right renal mass, 92m9m08 cm with extension into right renal vein and inferior vena cava.. Has seen Dr. Mathew in [place] for consideration of nephrectomy. Determined not a [...] patient of Rogers Trujillo nurse practitioner in [place]. Also follows with Dr. Cervantes and Dr. Quach of urology. She had a hospitalization in December 2022 and ultimately was life flighted to [facility] for a myocardial infarction and ischemic [...] for coordination of care (as documented) and nxpw-vu-rpnt counseling of patient and/or family. 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 Right renal mass, 15*9*12 cm with extension into right renal vein and inferior vena cava.. Has seen Dr. Mathew in [place] for consideration of nephrectomy. Determined not a [...] patient of Rogers Trujillo nurse practitioner in [place]. Also follows with Dr. Cervantes and Dr. Quach of urology. She had a hospitalization in December 2022 and ultimately was life flighted to [facility] for a myocardial infarction and ischemic [...] for coordination of care (as documented) and hqxd-cq-kjqr counseling of patient and/or family. 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 at [address] [address] Hem/Onc Follow Up Note - OP Signed Patient: Perla Ibarra MR# : [id number] : 1955 Acct:[id number] Age/Sex: 67 / F Type: REG RCR Copies to: Rogers Wilson, DEIDRE SELF,REFERRAL ~ Date of Service: 07/31/2023 Time of Service: 13:59 - Assessment & Plan (1) Renal mass Plan: Right renal mass, 15*9*12 cm with extension into right renal vein and inferior vena cava.. Likely a neoplasm. Has seen Dr. Mathew in [place] for consideration of nephrectomy. No definitive retroperitoneal [...] start here, if not salazar is reasonable, [place]. f/u after. check ua and culture. offer her bactrim DS one tab bid x 10 days. get images uploaded to our system from [facility]. iv iron soon. cbc, cmp, iron studies [...] patient of Rogers Trujillo nurse practitioner in [place]. Also follows with Dr. Cervantes and Dr. Quach of urology. She had a hospitalization in December 2022 and ultimately was life flighted to [facility] for a myocardial infarction and ischemic [...] for coordination of care (as documented) and ieur-hk-kmrp counseling of patient and/or family. 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 at [address] [address] Hem/Onc Follow Up Note - OP Signed Patient: Perla Ibarra MR# : [id number] : 1955 Acct:[id number] Age/Sex: 67 / F Type: REG RCR [...] with Dr. Mathew who is now with [facility]. No definitive retroperitoneal lymphadenopathy. [...] MRI and ct images to here from [facility]. refer to [facility] at [facility]. f/u with me in a month (after imaging). get an CT a/p with contrast in a month at [facility]. cbc, cmp, iron studies b12, [...] patient of Rogers Trujillo nurse practitioner in [place]. Also follows with Dr. Cervantes and Dr. Quach of urology. She had a hospitalization in December 2022 and ultimately was life flighted to [facility] for a myocardial infarction and ischemic [...] for coordination of care (as documented) and grzl-as-prrq counseling of patient and/or family. 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 [place] [address] Cancer Center Note Signed Patient: Perla Ibarra MR# : [id number] : 1955 Acct:[id number] Age/Sex: 69 / F Type: REG AMB Date of Service: 01/27/25 Copies to: DEIDRE Barrett~ Assessment & Plan A/P Patient Instructions: lasix 20mg prn. f/u in [address] c/a/p with contrast at [place] prior. cbc, cmp, tsh, ft4, acth, am cortisol in 3 months and prior to f/u. CHEMO PLAN Treatment Plan Pembrolizumab 400mg Every 6 Weeks Clinical Indication Locoregional Recurrence Cycle Number Last Admin 7 of 12 Cycle Day Next Admin -43 of 42 No Active Chemotherapy History of Present Illness HPI ASSESSMENT/PLAN Right renal Cancer, 17d4p77 cm with extension into right renal vein and inferiorvena cava.. 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 Has seen Dr. Mathew in [place] for consideration of nephrectomy. Determined not a [...] 2022 and ultimately was life flighted to [facility] for a myocardial infarction and ischemic [...] medication 2 days ago. She presented to [facility] where she was hydrated and subsequently transferred to [facility]. 10/26/2023: Perla is here for interval follow up/follow up to inpatient stay.She was hospitalized at [facility] from 10/19/2023-10/25/2023 for headache, abdominal pain, hyponatremia, [...] covid, persistent cough. reviewed ct scans from [facility] that her renal mass is [...] stability of renal cell. reviewed imaging from [place] from 10/26/24 n R complex renal mass 4.2 x 3.9 x 5.9 cm This is unchanged. No new metastatic disease. no adenopathy. 01/27/[address] c/a/p shows roughly stable ct imaging with peristent renal mass. cont on 2 l oxygen. some edema in legs. she was rogers wilson and now has toro baron. 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 fatigue is profound. Intake Vitals/Pain Assessment 01/27/25 [...] also reports edema in bilateral lower extremities. [facility] Medical History Medical History Hyponatremia Chronic hypoxic respiratory failure 2 L Oxygen via [place] at all times. 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 Myocardial infarct COPD (chronic obstructive pulmonary disease) [...] Dictated By: Aries Chavez II, DO DD/ [id number] Signed By: <Electronically signed by Aries Chavez II, DO> 01/27/25 3217 [facility] Work Phone: Evaluation noteNo assessment information available [facility] Work Phone: evaluation note* Diagnosis Onset Date Resolution Status Renal mass acute [facility] Work Phone: evaluation note* Diagnosis Onset Date Resolution Status Clear cell renal cell carcinoma acute Encounter for antineoplastic chemotherapy acute Hyponatremia acute Iron deficiency anemia acute [facility] Work Phone: evaluation note* Diagnosis Onset [...] deficiency anemia acute Nonischemic cardiomyopathy a cute [facility] Work Phone: evaluation note* Diagnosis Onset [...] acute Hyponatremia acute Iron deficiency anemia acute [facility] Work Phone: evaluation note* Diagnosis Onset [...] acute Iron deficiency anemia acute Hyponatremia resolved [facility] Work Phone: Evaluation note* Diagnosis Onset [...] acute Iron deficiency anemia acute Hyponatremia resolved [facility] Work Phone: evaluation note* Diagnosis Onset Date Resolution Status Clear cell renal cell carcinoma acute Encounter for antineoplastic chemotherapy acute Iron deficiency anemia acute Hyponatremia resolved [facility] Work Phone: evaluation note* Diagnosis Onset Date Resolution Status Clear cell renal cell carcinoma acute Encounter for antineoplastic chemotherapy acute Iron deficiency anemia acute Hyponatremia resolved Contact with and (suspected) exposure to covid-19 noneactive [facility] Work Phone: evaluation note* Diagnosis Onset Date Resolution Status COVID-19 noneactive Contact with and (suspected) exposure to covid-19 noneactive Clear cell renal cell carcinoma acute Encounter for antineoplastic chemotherapy acute Iron deficiency anemia acute Hyponatremia resolved [facility] Work Phone: Evaluation note* Diagnosis Onset Date Resolution Status Admit Date Clear cell renal cell carcinoma acut e October 28, 2024 12:56pm Encounter for antineoplastic chemotherapy acute October 28 12:56pm Iron deficiency anemia acute Ja nuary 2024 12:56pm Hyponatremia resolved October 12:56pm Renal mass deleted October 28, 2024 12:56pm [facility] Work Phone: Evaluation note* Diagnosis Chronic obstructive pulmonary disease with acute exacerbation (CMS-HCC)- Primary Chronic hypoxic respiratory failure (CMS-HCC) Renal cell carcinoma of right kidney (CMS-HCC) documented in this encounter [facility]* Diagnosis Anxiety Anxiety state, unspecified documented in this encounter [facility]* Diagnosis Acute recurrent frontal sinusitis- Primary Nausea and vomiting, unspecified vomiting type documented in this encounter [facility]* Diagnosis Chronic obstructive pulmonary disease with acute exacerbation ([facility]-HCC) documented in this encounter [facility]* Diagnosis Onset Date Resolution Status Admit Date Clear cell renal cell carcinoma acute November 25, 2 025 2:20pm Encounter for antineoplastic chemotherapy acute November 25, 025 2:20pm Iron deficiency anemia acute Fe bruary 2024 2:20pm Hyponatremia resolved November 2:20pm Renal mass deleted November 25, 2024 2:20pm [facility] Work Phone: Evaluation note* Diagnosis Arthritis, multiple joint involvement- Primary Unspecified arthropathy, multiple sites Renal cell carcinoma of right kidney ([facility]-HCC) Panlobular emphysema ([facility]-HCC) Other emphysema Benign hypertensive heart disease with heart failure ([facility]-HCC) Obesity, morbid ([facility]) Morbid obesity documented in this encounter [facility]* Diagnosis Onset Date Resolution Status Admit Date Clear cell renal cell carcinoma acut e January 27, 2025 2:03pm Encounter for antineoplastic chemotherapy acute January 27, 2025 2:03pm Iron deficiency anemia acute Ap 2024 2:03pm Hyponatremia resolved January 27, 2025 2:03pm Renal mass deleted January 27 2:03pm [facility] Work Phone: Evaluation note* Diagnosis Left leg cellulitis- Primary documented in this encounter [facility] Dis[facility] instructions Additional Instructions Continue home oxygen as directed.[facility] Work Phone: InstructionsNot on filedocumented in this encounter [facility] on filedocumented in this encounter [facility] SystemInstructionsNot on filedocumented in this encounter [facility] System[facility]ructionsNot on filedocumented in this encounter [facility] SystemInstructionsNot on filedocumented in this encounter [facility]* Attachments The following attachments cannot be sent through Care Everywhere. * Cellulitis (Skin Infection)? Adult ED ([place]) documented in this encounterPro[facility] SystemProgress note Author Aries Chavez [facility] July 31, 2023 2:29pm Note Date/Time July 31, 2023 1 :59pm [facility] [place] [address] Hem/Onc Follow Up Note - OP Signed Patient: Perla Ibarra MR# : [id number] : 1955 Acct:[id number] Age/Sex: 67 / F Type: REG RCR Copies to: DEIDRE Barrett SELF,REFERRAL ~ Date of Service: 07/31/2023 Time of Service: 13:59 - Assessment & Plan (1) Renal mass Plan: Right renal mass, 15*9*12 cm with extension into right renal vein and inferior vena cava.. Likely a neoplasm. Has seen Dr. Mathew in [place] for consideration of nephrectomy. No definitive retroperitoneal [...] start here, if not salazar is reasonable, [place]. f/u after. check ua and culture. offer her bactrim DS one tab bid x 10 days. get images uploaded to our system from [facility]. iv iron soon. cbc, cmp, iron studies [...] patient of Rogers Trujillo nurse practitioner in [place]. Also follows with Dr. Cervantes and Dr. Quach of urology. She had a hospitalization in December 2022 and ultimately was life flighted to [facility] for a myocardial infarction and ischemic [...] for coordination of care (as documented) and dpjc-am-lfee counseling of patient and/or family. 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 [place] [address] Hem/Onc Follow Up Note - OP Signed Patient: Perla Ibarra MR# : [id number] : 1955 Acct:[id number] Age/Sex: 68 / F Type: REG RCR Copies to: Rogers Wilson, DEIDRE SELF,REFERRAL ~ Subjective Date/Time of Service: Date [...] Xanax as needed. 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 Also follows with Dr. Cervantes and Dr. Quach of urology. She had a hospitalization in December 2022 and ultimately was life flighted to [facility] for a myocardial infarction and ischemic [...] 10 point review of systems is negative. 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 Right renal mass, 05k5d14 cm with extension into right renal vein and inferior vena cava.. Has seen Dr. Mathew in [place] for consideration of nephrectomy. Determined not a [...] for coordination of care (as documented) and honp-gf-twxb counseling of patient and/or family. Dictated By: Vannessa Perales APRN DD/ [id number] Signed By: <Electronically signed by CHAD Perales> 10/05/23 1400 [facility] Work Phone: Progress note Author Aries Chavez [facility] March 29, 2024 10:13am Note Date/Time March 29, 2024 9:[address] [facility] [place] [address] Cancer Center Note Signed Patient: Perla Ibarra MR# : [id number] : 1955 Acct:[id number] Age/Sex: 68 / F Type: REG AMB [...] 2 of 6 Cycle Day Next Admin - No Active Chemotherapy History of Present Illness HPI Assessment/Plan. Right renal Cancer, 00o2t79 cm with extension into right renal vein and inferiorvena cava.. 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 Has seen Dr. Mathew in [place] for consideration of nephrectomy. Determined not a [...] Xanax as needed. 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 Also follows with Dr. Cervantes and Dr. Quach of urology. She had a hospitalization in December 2022 and ultimately was life flighted to [facility] for a myocardial infarction and ischemic [...] medication 2 days ago. She presented to [facility] where she was hydrated and subsequently transferred to [facility]. --She specifically denies any anginal chest pain, but does note some dyspnea that started a few days after starting the axitinib. She notes that she was shaking all over but did not fall to the ground or lose consciousness therefore it was not felt to be a seizure. 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 -- At [facility] she was noted to have white [...] up to inpatient stay.She was hospitalized at [facility] from 10/19/2023-10/25/2023 for headache, abdominal pain, hyponatremia, [...] up with labs and imaging for review. [facility] Medical History Medical History Hyponatremia Chronic hypoxic respiratory failure 2 L Oxygen via [place] at all times. 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 Myocardial infarct COPD (chronic obstructive pulmonary disease) [...] by Aries Chavez II, DO> 03/29/24 1013 [facility] Work Phone: Summary Purpose Family History [...] Documentation 6 wk f/u with scans at [facility] Renal Mass N28.89 Reason for Visit Cancer [...] exposure to covid-19 Chief Complaint Review scans 13.2 4 15 wk f/u with scans Positive [...] section and content) DATE CREATED AUTHOR 02/10/2023 [facility] DATE CREATED AUTHOR AUTHOR'S ORGANIZ ATION 03/13/2023 [facility] DATE CREATED AUTHOR AUTHOR'S ORGANIZ ATION 01/28/2025 [facility] DATE CREATED AUTHOR AUTHOR'S ORGANIZ ATION 03/28/2025 [facility] DATE CREATED AUTHOR AUTHOR'S ORGANIZ ATION 04/17/2025 [facility] Care Teams (unrecognized sec tion and content) [...] 2024 Referral Self Referring Provider Active Start: J une 2023 Team Status: Active Member Role Status [...] 26, 2023 End: October 26, 2023 Vannessa L Damschroder , WOOD ROOM HAND Attending Provider Active Start: October 26, 2023 [...] Status: Inactive Member Role Status Dates Rogers Wilson PHOTOVOLTAIC FABRICATION TECHNICIAN Primary Care Provider Active Aries Chavez II, [...] Referring Provider Active Start: Kassy hernandez 2023 Team Status: Inactive Member Role Status Dates Rogers Wilson , PHOTOVOLTAIC FABRICATION TECHNICIAN Primary Care Provider Active S tart: May 10, 2024 End: May 10, 2024 Aries Chavez II, DO Active S tart: May 10, 2024 End: May 10, 2024 Rogers Moon APRN Attending Provider Anthonyi ve Start: May 10, 2024 End: May 10, 2024 Team Status: Active Member Role Status Dates Aries Chavez II, Attending Provider Active Start: May 10, 2024 Rogers Wilson , PHOTOVOLTAIC FABRICATION TECHNICIAN Primary Care Provider Active S tart: May 10, 2024 Referral Self Referring Provider Active Start: Samara walton 2023 Team Status: Inactive Member Role Status Dates Rogers Wilson , PHOTOVOLTAIC FABRICATION TECHNICIAN Primary Care Provider Active S tart: June 04, 2024 End: June 04, 2024 Elayne James APRN Attending Provider Active Start: June 04, 2024 End: June 04, 2024 Team Status: Inactive Member Role Status Dates Rogers Wilson , PHOTOVOLTAIC FABRICATION TECHNICIAN Primary Care Provider Active S tart: June 24, 2024 End: June 24, 2024 Aries Chavez II, DO Attending Provider Active Start: June 24, 2024 End: June 24, 2024 Team Status: Active Member Role Status Dates Aries Chavez II, Attending Provider Active Start: June 24, 2024 Rogers Wilson PHOTOVOLTAIC FABRICATION TECHNICIAN Primary Care Provider Active S tart: June 24, 2024 Referral Self Referring Provider Active Start: Tony barragan 2023 Team Status: Inactive Member Role Status Dates Rogers Wilson , PHOTOVOLTAIC FABRICATION TECHNICIAN Primary Care Provider Active S tart: October 01, 2024 End: October 01, 2024 Rogers Moon APRN Attending Provider Active Start: September End: October 01, 2024 Team Status: Inactive Member Role Status Dates Rogers Wilson , PHOTOVOLTAIC FABRICATION TECHNICIAN Primary Care Provider Active S tart: October 28, 2024 End: October 28, 2024 Aries Chavez II, DO Attending Provider Active Start: October 28, 2024 End: October 28, 2024 Team Status: Active Member Role Status Dates Aries Chavez II, DO Attending Provider Active Start: October 28, 2024 Rogers Danelle DEIDRE Wilson Primary Care Provider Active S tart: October 28, 2024 Referral Self Referring Provider Active Start: Thomas alexander 2024 Webbing Inspector Relationship Specialty Start Date End Date Rogers Wilson, WOOD ROOM HAND-PHOTOVOLTAIC FABRICATION TECHNICIAN [address] [place] [address] PCP - General Internal Medicine 02/09/23 Webbing Inspector Relationship Specialty Start Date End Date Rogers Wilson, WOOD ROOM HAND-[facility] [address] [place] [address] PCP - General Internal Medicine 02/09/23 Webbing Inspector Relationship Specialty Start Date End Date Rogers Wilson, WOOD ROOM HAND-[facility] [address] [place] [address] PCP - General Internal Medicine 02/09/23 Webbing Inspector Relationship Specialty Start Date End Date Toro Baron APRN-[facility] [address] [place] [address] PCP - General Family Medicine 03/29/24 Webbing Inspector Relationship Specialty Start Date End Date Toro Baron APR[facility] [address] [place] [address] PCP - General Family Medicine 03/29/24 Team Status: Inactive Member Role Status Dates Rogers Mcclendon Danieltony DEIDRE Primary Care Provider Active S tart: November 25, 2024 End: November 25, 2024 Aries Chavez II, DO Attending Provider Active Start: November 25, 2024 End: November 25, 2024 Team Status: Active Member Role Status Dates Aries Chavez II, DO Attending Provider Active Start: November 25, 2024 DEIDRE Barrett Primary Care Provider Active S tart: November 25, 2024 Referral Self Referring Provider Active Start: F ebruary 2024 Webbing Inspector Relationship Specialty Start Date End Date Toro Baron APRN-[facility] [address] [place] [address] PCP - General Family Medicine 03/29/24 Team Status: Inactive Member Role Status Dates DEIDRE Barrett Primary Care Provider Active S tart: January 27, 2025 End: January 27, 2025 Aries Chavez II, DO Attending Provider Active Start: January 27, 2025 End: January 27, 2025 Team Status: Active Member Role Status Dates Aries Chavez II, Attending Provider Active Start: January 27, 2025 DEIRDE Barrett Primary Care Provider Active S tart: January 27, 2025 Referral Self Referring Provider Active Start: A pril 2024 Webbing Inspector Relationship Specialty Start Date End Date Toro Baron APRN-SCREW MACHINE OPERATOR [employer] [address] [place] [address] PCP - General Family Medicine 03/29/24 Goals [...] Comments Med Refill 08/05/2024 Reason Comments Follow-up Reason Comments ER f/u [place] FOR RECORDS PERTAINING TO PATIENTS WHO ARE [...] BE BASED ON THE PRIMARY CLINICAL RECORDS. [facility]. provides no warranty or guarantee of the accuracy or completeness of information in this document.
[2025-07-14 14:14] LABS: Hematocrit 36.1 % (36.0-48.0); Hemoglobin 11.6 g/dL (12.0-16.0); Immature Granulocytes Abs Auto 0.03 10^3/uL (0.00-0.03); Immature Granulocytes Pct Auto 0.3 % (0.0-0.5); Lymphocytes Absolute Auto 2.1 10^3/uL (1.2-3.8); Mean Corpuscular HGB Conc 32.1 g/dL (29.9-35.2); Mean Corpuscular Hemoglobin 28.4 pg (26.7-34.0); Mean Corpuscular Volume 88.5 fL (81.0-99.0); Platelet Count 241 10^3/uL (150-450); Red Blood Count 4.08 10^6/uL (4.20-5.40); White Blood Count 8.9 10^3/uL (4.0-11.0)
[2025-07-14 14:45] LABS: Alanine Aminotransferase 15 U/L (14-59); Albumin Globulin Ratio 0.7; Albumin Level 3.3 g/dL (3.4-5.0); Alkaline Phosphatase 96 U/L (46-116); Anion Gap 12.2; Aspartate Amino Transferase 16 U/L (15-37); Blood Urea Nitrogen 17.0 mg/dL (7.0-18.0); Calcium 9.0 mg/dL (8.5-10.1); Carbon Dioxide 29.0 mmol/L (21.0-32.0); Chloride 101 mmol/L (98-107); Estimated GFR (African America >60 (>=60 mL/min/1.73m^2); Estimated GFR (Non-African Ame >60 (>=60 mL/min/1.73m^2); Globulin 4.7 g/dL; Glucose 108 mg/dL (74-106); NT Pro B Type Natriuretic Pept 246.0 pg/mL (<=900.0); Potassium 4.2 mmol/L (3.5-5.1); Sodium 138 mmol/L (136-145); Total Protein 8.0 g/dL (6.4-8.2)
== END 2025-07-14 13:44 | disposition home or self-care (01) ==
LOC: LAB 13:45
PROVIDERS: PCP Nurse Practitioner
DX: I11.0 Hypertensive heart disease with heart failure (principal); I50.20 Unspecified systolic (congestive) heart failure
CPT/HCPCS: 36415; 80053; 83880; 85025

== ENCOUNTER 2025-07-23 06:36 | Outpatient (OUT) | payer MEDICARE, OTHER, SELFPAY ==
--- OUTSIDE RECORDS SUMMARY | 2025-07-14 13:00 | XMS_ITS | Encounter Summary ---
Author Organization [facility] Address [address] [place] [address] Care Team Providers Care Leather Drier Name Role Phone Nedra Perez DEIDRE Primary Care Provider [phone] Guero Granado MD Unavailable Reason for Referral * Imaging (Routine) - Pending ReviewSpecialtyDiagnoses / ProceduresReferred By ContactReferred To ContactCardiology Diagnoses Heart failure with improved ejection fraction (HFimpEF) ([facility]) Procedures Transthoracic echo (TTE) complete Ranjan Chang CNP [address] [place] [address] Phone: tel: fax: Referral IDStatusReasonStart DateExpiration DateVisits RequestedVisits [id number] Review Perform Procedure Reason for Visit * ReasonCommentsFollow-upPatient is here today for a 3 month follow up office visit. Patient would like to talk about the rash on her arms, possible due to her heart medication, and would like to talk about AsprinCoronary Artery DiseaseCongestive Heart FailureCardiomyopathyNonischemicHypertensionPulmonary HypertensionFatigueVery fatigue, and thinks she is possible anemic Encounter Details DateTypeDepartmentCare Team (Latest Contact Info)Xjtiyebqscz39/13/2025 1:00 PM EDTOffice Visit [facility] [address] [place] [address] Ranjan Chang, FERN CUTTER [address] [place] [address] Heart failure with improved ejection fraction (HFimpEF) (CMS/HCC) (Primary Dx); Coronary artery disease involving angoon coronary artery of angoon heart without angina pectoris; Benign hypertensive heart disease with heart failure (CMS/HCC) Social History Tobacco UseTypesPacks/DayYears UsedDateSmoking Tobacco: FormerCigarettesQuit: 01/26/2023Smokeless Tobacco: NeverAlcohol UseStandard Drinks/WeekCommentsNever0 (1 standard drink = 0.6 oz pure alcohol)Humiliation, Afraid, Rape, and Kick questionnaireAnswerDate RecordedWithin the last year, have you been afraid of your partner or ex-partner?Patient uxuyfubd51/27/2023Emotionally AbusedNot on file01/26/2023hysically AbusedNot on file01/26/2023Sexually AbusedNot on file 01/26/2023Overall Financial Resource Strain (CARDIA)AnswerDate RecordedHow hard is it for you to pay for the very basics like food, housing, medical care, and heating?Patient zfoyfviq32/27/2023HQ-2AnswerDate RecordedPatient Health Questionnaire-2 [id number] Safety & EnvironmentAnswerDate RecordedFear of Current or Ex-PartnerNot on file02/08/2024Emotionally AbusedNot on file 02/08/2024hysically AbusedNot on file02/08/2024Sexually AbusedNot on file 02/08/2024hysically or Sexually AbusedNot on file02/08/2024TransportationAnswer Date RecordedIn the past 12 months, has lack of transportation kept you from medical appointments or from getting medications?Patient pwepwetl73/27/2023Lack of Transportation (Non-Medical)Not on file01/26/2023Housing Stability Vital Sign AnswerDate RecordedUnable to Pay for Housing in the Last YearNot on file 01/26/2023Number of Places Lived in the Last YearNot on file01/26/2023In the last 12 months, was there a time when you did not have a steady place to sleep or slept in ashelter (including now)?Patient eeonmew4901/26/2023Hunger Vital Sign AnswerDate RecordedWithin the past 12 months, you worried that your food would run out before you got the money to buymore.Patient cbwszjoj05/27/2023Ran Out of Food in the Last YearNot on file01/26/2023CommentsUnknownSex and Gender InformationValueDate RecordedSex Assigned at DgjkqClqnjm72/20/2023 12:15 PM EDT Legal JuhAzhrjz53/26/2023 10:42 AM EDTGender TddwkmwaHsreix85/20/2023 12:15 PM EDTSexual OrientationHeterosexual or Gkqvsvnt09/20/2023 12:15 PM EDTdocumented as of this encounter Last Filed Vital Signs Vital SignReadingTime TakenCommentsBlood Yiahreox780/ 12:58 PM EDT Xgfcd729607/14/2025 12:58 PM EDTTemperature--Respiratory Rate--Oxygen Saturation 98%07/14/2025 12:58 PM EDT2 lpm via n/cInhaled Oxygen Concentration--Jjgras578 kg (225 lb)07/14/2025 12:58 PM WREVwkznu599.1 cm (5' 5 )07/14/2025 12:58 PM EDT Body Mass Index37.441 12:58 PM EDTdocumented in this encounter Functional Status * BPAnswerDate of MkonwrjaxmVrzckh203/ 12:58 PM Ellie Means MA * PulseAnswerDate of CagqbzcrzfNnzruc0965/13/2025 12:58 PM Ellie Means MA * Patient PositionAnswerDate of JvcybjpqacRjdgniJyyanxo84/13/2025 12:58 PM EDT Ellie Simon MA * BPAnswerDate of YekacagpdyYyhrey211 12:58 PM Ellie Means MA * PulseAnswerDate of NfvmgogusiTeylxj4559/13/2025 12:58 PM Ellie Means MA * AqD2MtenhiYywy of HzptfjioroChupuo9560/13/2025 12:58 PM Ellie Means MA * BP LocationAnswerDate of AssessmentAuthorRight arm07/14/2025 12:58 PM EDT Ellie Simon MA * Patient PositionAnswerDate of ShpnhdzkttLvskcqSssonxq41/13/2025 12:58 PM EDT Ellie Simon MA documented as of this encounter Progress Notes * Ranjan Chang CNP - 07/14/2025 1:00 PM EDT Images from the original note were not included. SUBJECTIVE Reason for Visit: Perla Ibarra is a 69 y.o. year old female patient being seen for 3-month follow-up visit. HPI: Perla Ibarra is a 69 y.o. 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 Otherwise, history of coronary artery disease,prior tobacco use, probable COPD, and renal cell carcinoma. Historically, she was transferred from [facility] to [facility] for evaluation of acute respiratory failure in setting of acute decompensated heart failure requiring intubation and elevated troponin. She underwent coronary angiography on 01/26/2023 which revealed nonobstructive coronary artery disease. Right heart catheterization showed elevated pressures with a mean wedge of 33 mmHg. She was discharged on carvedilol 3.125 mg twice daily, dapagliflozin 5 mg daily, Entresto 24-26 mg twice daily,spironolactone 12.5 mg daily, and aspirin 81 mg daily. 07/14/2025 office visit: Patient was seen and evaluated in the office today, accompanied by her partner. She reports worsening shortness of breath since her last visit. She remains on 2 L nasal cannula oxygen, which is her baseline. She endorses stable lower- extremity edema. She also reports recurrent epistaxis and gingival bleeding occurring almost daily, which typically resolve spontaneously within a few minutes. Additionally, she notes a rash involving the anterior right forearm and lower extremities. Per the patient, this is being treated by her primary care provider with topical steroids; however, there has been little improvement. She was advised to follow up with her PCP for reassessment and further management of the rash. 04/14/2025 office visit: Patient seen evaluated in the office today, she is accompanied by her partner Denies chest pain, palpitations, lightheadedness or dizziness. VICTORIA is stable, remains on 2L NC her baseline. Endorses LE edema. She was recently diagnosed with leg cellulitis in late March. Finished antibiotics. States leg swelling is much better . DVT scans were negative. 11/04/2024 office visit (Dr. Miller): Patient here for 6 mo follow up CHF, CAD, hypertension, and NICM. Had echo in May 2024 after last apt in April. Denies chest pain, palpitations, and lightheadedness. Says she gets nauseous and vomits sometimes after PM meds. No chest pain. No shortness of breath. No additional complaints Medical History[1] Surgical History[2] Problem List[3] family history includes Heart attack in her brother and maternal grandfather; Heart failure in her maternal grandmother; Tuberculosis in her mother. Social History[4] OBJECTIVE Visit Vitals Smoking Status Former Physical Exam Constitutional: General Appearance: well-developed, appears stated age. Level of Distress: no acute distress. Neck: Jugular Veins: normal jugular venous pressure. Lungs: Auscultation: Diminished Cardiovascular: Rate And Rhythm: regular Heart Sounds: normal S1 and s2; Systolic Murmur: not heard. Diastolic Murmur: not heard. Extremities: +2 LE edema. Peripheral Pulses: Pulses: full and equal in all extremities except if noted. Abdomen: Inspection and Palpation: non distended or tender and soft. Musculoskeletal: Inspection: no joint tenderness or swelling. Neurologic: Gait: normal gait. Psychiatric: Mental Status: alert and normal affect. Skin: Inspection and Palpation: warm and dry. Rash to R FA and LE. Allergies: Allergies[5] Outpatient Medications: Current Outpatient Medications Medication Instructions albuterol 90 mcg/actuation inhaler Every 4 hours aspirin 81 mg, Daily atorvastatin (LIPITOR) 20 mg, oral, Nightly escitalopram (LEXAPRO) 5 mg, Daily RT famotidine (Pepcid) 20 mg tablet take 1 tablet by mouth every evening for HEARTBURN ipratropium-albuteroL (Duo-Neb) 0.5-2.5 mg/3 mL nebulizer solution 3 mL, 4 times daily RT levothyroxine (SYNTHROID, LEVOXYL) 100 mcg, Daily loratadine (CLARITIN) 10 mg, Daily PRN metoprolol succinate XL (TOPROL-XL) 12.5 mg, oral, Once Daily, Do not crush or chew. pantoprazole (PROTONIX) 40 mg, Daily sacubitril-valsartan (Entresto) 24-26 mg tablet 1 tablet, oral, 2 times daily spironolactone (ALDACTONE) 12.5 mg, oral, Once Daily Recent Labs: No visits with results within 2 Month(s) from this visit. Latest known visit with results is: No results displayed because visit has over 200 results. Labs reviewed 03/20/2025: WBC 9.5, hemoglobin 11.6, platelets 241 Potassium 4.4, sodium 134, BUN 17, creatinine 0.98, EGFR 56, glucose 104, calcium 9.6, proBNP 150 I have personally reviewed and anaylzed the following laboratory results above. These findings havebeen analyzed in the context of the patient's clinical presentation. Cardiovascular Diagnostic Studies: JASWINDER ANDREA venous dopplers. 03/20/25: 11/01/2023: BILATERAL LOWER EXTREMITY VENOUS DUPLEX INDICATION: Bilateral lower extremity edema. PROCEDURE: Color-flow duplex scanning is used to interrogate the deep venous system of the right and left lower extremities. The common femoral vein, femoral vein and popliteal vein show good compressibility with normal proximal and distal augmentation. The calf veins are compressible. 01/28/23 CT Abd Pelvis: There is a heterogeneously enhancing right renal mass measures approximately 12.8 x 8.2 x 8.3 cm with extension into the right renal vein. No hydronephrosis on the right. Normal caliber aorta with moderate atherosclerotic calcification. Right-sided IVC. Significant dilation of the right ovarian vein. No definite retroperitoneal lymphadenopathy. Infiltration of the soft tissues in the right inguinal region consistent with recent cardiac catheterization. IMPRESSION: *Enhancing right renal mass consistent with renal cell carcinoma. There is tumor thrombus extending into the right renal vein and IVC. *No definitive evidence of metastatic disease. TTE 12/05/2024: Conclusion: 1. Mild concentric left ventricular Milan with normal systolic function. LVEF is estimated at 55% 2. Normal right ventricular size and systolic function. 3. No significant valvular dysfunction. 4. Normal diastolic function. 5. Normal right-sided pressures. TTE 01/26/23 ([facility]) EF 35-40%, Cannot comment on RWMA. Unable to assess diastolic function d/t heart rhythm. Right ventricle with normal size and function, mildly elevated right- sided pressures 39mmHg, Mild to mod MR. Dilated IVC w/o collapse. TTE 01/27/23 ([facility]) Left Ventricle: The left ventricle is normal size. Global left ventricular systolic function is mildly reduced. TheEF is 45 % visually. Left ventricular wall thickness is mildly increased. Diffuse global hypokinesis. Grade 2, moderate diastolic dysfunction (pseudonormalized LV filling pattern). No left ventricular hypertrophy. Concentric left ventricular hypertrophy. Right Ventricle: The right ventricle is at upper normal limits in size. Right ventricular systolic function appears reduced. Unable to assess right sided pressures due to lack of measurable tricuspid regurgitation. Left Atrium: The left atrium is normal in size. Great Vessels: IVC: The IVC is mildly dilated. Respiratory inspiration less than 50%. Overall Conclusions: Due to suboptimal imaging Lumason contrast was administered for opacification and better delineation of endocardial borders. Cardiac Cath Report 01/26/2023 Final Impressions: -Patent coronary arteries with mild disease of D1 and PDA and PLB branches of RCA. -Elevated right sided heart pressures, likely secondary to left heart disease Recommendations: -Aspirin 81 mg daily and high intensity statin for non obstructive CAD -Optimization of medical management -Aggressive risk factor modification -Diuresis as per inpatient cardiology consult service -Consider further imaging to rule out PE -Further recommendations as per inpatient cardiology consult service HEMODYNAMICS: AO: 104/60 (77) mmHg RA: 23/23 (20) mmHg RV: 44/24 (33) mmHg PA: 42/0 (34) mmHg PCWP: 35/37 (33) mmHg CO: 6.04 CI: 3.33 LVEF: This was not assessed during today???s study CORONARY FINDINGS: LMCA - This vessel arises from the left coronary cusp and bifurcates into the left anterior descending and left circumflex coronary arteries. It is angiographically patent and without significant stenosis. LAD - Angiographically patent and without significant stenosis. D1 - 20-30% stenosis at the ostium. Otherwise, angiographically patent and without significant stenosis. LCX - Angiographically patent and without significant stenosis. OM major - Angiographically patent and without significant stenosis. RCA - This arises from the right coronary cusp. It is a dominant vessel giving rise to a PDA and PLB branch. There is 20-30% stenosis at the proximal portion of the vessel. Otherwise, it is angiographically patent and without significant stenosis. 12 Lead ECG: No results found for this or any previous visit (from the past 4464 hours). I have personally reviewed and analyzed all available cardiac diagnostic tests and imaging reports.Findings have been analyzed in the context of the patient's clinical status. Assessment and Plan #HFimpEF NYHA II-III Appears slightly fluid overload VICTORIA is worse Weight today is 225 lbs, 04/14/2025 222 pounds -- 207 pounds 11/04/2024 ---> 171 pounds 04/23/2024 Most recent TTE 12/05/2024: EF 55%, no significant valvular dysfunction. Mild concentric LVH with normal systolic function. Prior echo in 2022 EF mildly reduced to 45%. Severely reduced on 10/19/2023 echo (EF 20 to 25%) Labs 04/14/2025: WBC 7.9, hemoglobin 11.7, platelets 242, sodium 133, potassium 4.1, BUN 14, creatinine 0.80, eGFR greater than 60, glucose 113, calcium 9.5, albumin 3.2, TSH 1.253, free T4 1.62 Labs 03/20/2025: WBC 9.5, hemoglobin 11.6, platelets 241 Potassium 4.4, sodium 134, BUN 17, creatinine 0.98, EGFR 56, glucose 104, calcium 9.6, proBNP 150 GDMT; - Continue spironolactone 12.5 mg daily - Continue metoprolol succinate XL 12.5 mg daily - Continue Entresto 24-26 mg twice daily (Previously on SGLT2i Farxiga but discontinued due to side effects) #CAD Denies chest pain Mild nonobstructive CAD on 01/26/2023 coronary angiogram GDMT: - Continue atorvastatin 20 mg daily - Continue aspirin 81 mg daily - Continue metoprolol succinate 12.5 mg daily #Hypertension BP today is 108/72, HR 77 Stable - Continue spironolactone 12.5 mg daily - Continue metoprolol succinate 12.5 mg daily #Hyperlipidemia On atorvastatin 20 mg #Renal cell carcinoma Has finished treatment Due to see her oncologist in a few weeks Plan Overview: Labs: CBC, CMP, BNP; BMP in 1 week Will repeat TTE Will start Lasix 20 mg daily Follow-up in 2 months This note was partially composed using voice recognition software. While every effort was made to ensure accuracy, some unintentional linter tender errors may be present. [facility] Cardiovascular Medicine [1] Past Medical History: Diagnosis Date Cancer (CMS/HCC) CHF (congestive heart failure) (CMS/HCC) COPD (chronic obstructive pulmonary disease) (CMS/HCC) NSTEMI (non-ST elevated myocardial infarction) (CMS/HCC) PNA (pneumonia) Tuberculosis [2] Past Surgical History: Procedure Laterality Date CARDIAC CATHETERIZATION DENTAL SURGERY [3] Patient Active Problem List Diagnosis Acute coronary syndrome (CMS/HCC) Acute respiratory failure with hypoxia and hypercapnia (CMS/HCC) Parainfluenza infection Acute systolic heart failure (CMS/HCC) COPD (chronic obstructive pulmonary disease) (CMS/HCC) Myocardial infarction (CMS/HCC) Renal cell carcinoma of right kidney (CMS/HCC) Renal mass Acute kidney injury due to nephrotoxicity Cancer related pain Chronic hypoxic respiratory failure (CMS/HCC) Constipation Counseling regarding advanced care planning and goals of care Elevated lactic acid level Encounter for antineoplastic chemotherapy High risk medications (not anticoagulants) long-term use Hyponatremia Intractable nausea and vomiting Iron deficiency anemia Nonischemic cardiomyopathy (CMS/HCC) Benign hypertensive heart disease with heart failure (CMS/HCC) Obesity, morbid (CMS/HCC) [4] Social History Tobacco Use Smoking status: Former Current packs/day: 0.00 Types: Cigarettes Quit date: 01/26/2023 Years since quittin.4 Smokeless tobacco: Never Substance Use Topics Alcohol use: Never Drug use: Never [5] Allergies Allergen Reactions Erythromycin Unknown Per report from roderick Tucker [Pembrolizumab] Other Latex Rash documented in this encounter Plan of Treatment DateTypeDepartmentCare Team (Latest Contact Info)Uufydvgjdrb00/11/2025 1:15 PM ESTOffice Visit [facility] [address] [place] [address] Robbi Henderson MD [address] [facility] [place] [address] NameTypePriorityAssociated DiagnosesOrder ScheduleCBC and differentialLabRoutine Benign hypertensive heart disease with heart failure (CMS/HCC) Expected: 07/14/2025 (Approximate), Expires: 07/14/2026Transthoracic echo (TTE) completeEchocardiographyRoutine Heart failure with improved ejection fraction (HFimpEF) (CMS/HCC) Expected: 07/14/2025 (Approximate), Expires: 07/14/2027asic metabolic panelLab Routine Heart failure with improved ejection fraction (HFimpEF) (CMS/HCC) Ordered: 07/14/2025-type natriuretic peptideLabRoutine Heart failure with improved ejection fraction (HFimpEF) (CMS/HCC) Expected: 07/14/2025 (Approximate), Expires: 07/14/2026omprehensive metabolic panelLabRoutine Heart failure with improved ejection fraction (HFimpEF) (CMS/HCC) Expected: 07/14/2025 (Approximate), Expires: 07/14/2026documented as of this encounter Visit Diagnoses Diagnosis Heart failure with improved ejection fraction (HFimpEF) (CMS/HCC)- Primary Coronary artery disease involving [place] coronary artery of [place] heart without angina pectoris Benign hypertensive heart disease with heart failure (CMS/HCC) documented in this encounter Care Teams Team MemberRelationshipSpecialtyStart DateEnd Date Nedra Perez FNP PCP - General01/31/23 Guero Granado MD [address] [place], [place] [address] [phone] Consulting OaxpyzmhdFvcehsb99/25/23documented as of this encounter
--- OUTSIDE RECORDS SUMMARY | 2025-07-23 06:40 | XMS_ITS ---
Author Organization [facility] Address [address] [place] [address] Care Team Providers Care Vp Of Global Marketing Name Role Phone Nedra Perez DEIDRE Primary Care Provider Guero Granado MD Unavailable Active Problems ProblemNoted DateDiagnosed DateFormer tobacco use07/11/2025Hilar lymphadenopathy 07/11/2025History of endocrine izmejmew72/10/2025History of tuberculosis 07/11/2025Lung field pnthrvyy62/10/2025Other secondary pulmonary hypertension 07/11/2025enign hypertensive heart disease with heart qspqrfg6412/16/2024Obesity, zmirqn2012/16/2024Elevated lactic acid level04/23/2024Encounter for antineoplastic /23/2024High risk medications (not anticoagulants) long-term use 04/23/2024cute kidney injury due to fzubrrdjpvqvvc20/30/2024ancer related pain 01/30/2024hronic hypoxic respiratory oxpwhlb8501/30/20247860Emuvtufumiwp18/30/2024 Counseling regarding advanced care planning and goals of care01/30/2024 Ggsfnlambwrt37/30/2024Intractable nausea and nrbjkkca21/30/2024Iron deficiency uozlav9701/30/2024Nonischemic tyudelgcteefmo46/30/2024enal cell carcinoma of right unsmuy28/4Renal mass/08/2024 Overview (10/12/2023): MRI 01/29/23: There is a heterogeneously enhancing right renal mass measures approximately 12.8 x 8.2 x 8.3 cm with extension into the right renal vein. No hydronephrosis on the right. 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 04/25/23: plan restaging with ct chest, mri abd. Comp. Not a great surgical candidate given o2 and recent [place]. AFter restaging may consider [facility] opinion at [facility] but personally I'm not sure she would survive an ivc thrombectomy * Interval resolution of patchy bibasilar airspace opacification. * Solitary 4 mm pulmonary nodule in the right lower lobe. Recommend comparison with outside chest CT to assess for stability. Images were not available at the time of dictation. * Subcentimeter thyroid nodule on the right, which could be further characterized with dedicated thyroid ultrasound as clinically indicated. COPD (chronic obstructive pulmonary disease)03/21/2023Myocardial infarction 03/21/2023cute coronary urxpfnnp76/26/2023cute respiratory failure with hypoxia and cfbdlubhqxk11/26/2023arainfluenza hqejzfhvz60/26/2023cute systolic heart vahsebf4501/25/2023 Current Treatment and Therapy Plans No current plan information found. Past Treatment and Therapy Plans No past plan information found. Lifetime Dose Tracking * ChemicalLifetime DoseAutomatic EntryManual EntryFluoro Time4.1 minutes0 minutes4.1 minutesAir Gyqav368 mGy0 mZu400 mGy
--- OUTSIDE RECORDS SUMMARY | 2025-07-23 06:40 | XMS_ITS | Patient Health Record ---
Author Organization [facility] [place] Address [address] [place] [address] Care Team Providers Care Personnel Scheduler Name Role Phone Luisheikeheaven LAN Steve Primary Care Provider Unavail able Billy Jason Unavailable [phone] Allergies Allergen (clinical drug ingredient) Drug/Non Drug Allergy documented on EMR Reaction Allergy Type Onset Date Status Latex Latex (uncoded) rash Allergy ActiveerythromycinErythromycinstomach upsetDrug AllergyActive Reason For Referral No Information Medications Medication SIG (Take, Route, Frequency, Duration) Notes Start Date End Date Status predniSONE 10 MG TAKE 1 TABLET BY MOUTH ONCE MORA LY Oral; Duration: 30 Days ActiveAlbuterol Sulfate HFA 108 (90 Base) MCG/ACT2 puffs as needed for SOB Inhalation every 4 hrs; Duration: 90 daysActiveMetoprolol Succinate ER 25 MG Oral; Duration: 90 DaysActiveIpratropium-Albuterol 0.5-2.5 (3) MG/3ML3mL Inhalation QID; Duration: 90 days5ActiveSpironolactone 25 MGOral; Duration: 90 DaysActiveRA Aspirin EC 81 MGtake 1 tablet by mouth every morning Oral; Duration: 90 DaysActiveKeytruda 100 MG/4MLas directed IntravenousActive Escitalopram Oxalate 10 MG1 tablet Orally Once a day; Duration: 90 daysActive Levothyroxine Sodium 50 MCGtake 1 tablet by mouth once daily Oral; Duration: 90 daysActiveALPRAZolam 0.25 MGtake 1 tablet by mouth twice a day if needed for anxiety Oral; Duration: 5 daysActiveEntresto 24-26 MGtake 1 tablet by mouth every morning and at bedtime Oral; Duration: 90 DaysActiveAtorvastatin Calcium 20 MGtake 1 tablet by mouth at bedtime Oral; Duration: 90 DaysActive Immunizations Vaccine Route Administration Date Status Comme nts Flu, Fluad (46146) 65 yrs + High Dose Seasonal (9361-9767) Unknown 07/24/2024 Administered Flu, Fluad (78534) 65 yrs+, single-dose syringe (0189-9756)Gfwrnld5007/27/2021 UvvxqtsbrfifWFCJ-VSB-0 (COVID 19 Pfizer 30mcg/0.3mL)Ehyvmcb6607/22/2021 Administered Social History Tobacco Use: Social History Observation Description Date Details (start date - stop date) Former Smoker NA - NA Tobacco Control (Standard) Question Answer Notes Tobacco use: Former smoker How long has it been since you last smoked?1-5 yearsAdditional Findings: Tobacco psd-kpffFo-slwvwyni cigarette smoker (10-19/day) Problems Problem Type SNOMED Code ICD Code Onset Dates Problem Status W/U Status Risk Notes Problem Obesity (933834980) Obesity, unspecified (E66.9) ActiveconfirmedProblemChronic respiratory failure (66078874)Chronic respiratory failure with hypoxia (J96.11)ActiveconfirmedProblemCOPD - Chronic obstructive pulmonary disease (85233897)COPD (chronic obstructive pulmonary disease) (J44.9) ActiveconfirmedProblemLung field abnormal (865549412)Abnormal CT scan of lung (R91.8)ActiveconfirmedProblemRenal cell carcinoma (48382244)Renal cell carcinoma (C64.9)ActiveconfirmedProblemHistory of tuberculosis (710202717)History of TB (tuberculosis) (Z86.11)ActiveconfirmedProblemHilar lymphadenopathy (80453320) Hilar lymphadenopathy (R59.0)ActiveconfirmedProblemEx-tobacco user (finding) (566231748)History of tobacco abuse (Z87.891)ActiveconfirmedProblemOld myocardial infarction (4968978)History of non-ST elevation myocardial infarction (NSTEMI) (I25.2)ActiveconfirmedProblemHistory of endocrine disorder (997363670) History of hypercapnia (Z86.39)ActiveconfirmedProblemSecondary pulmonary hypertension (38503905)Other secondary pulmonary hypertension (I27.29)Active confirmed Vital Signs Heart Rate 112 /min 11/12/2024 2L O2 Activity/ Resting Temperature 96.8 degrees Fahrenheit 11/12/2024 2L O 2 Activity/Resting Respiratory Rate 20 /min 11/12/2024 2L O2 Activ ity/Resting Oximetry 95 % 11/12/2024 2L O2 Activity/ Resting Blood pressure diastolic 70 mm Hg 11/12/2024 2L O2 Activity/Resting Height 64.5 in 11/12/2024 2L O2 Activity/ Resting Blood pressure systolic 109 mm Hg 11/12/2024 2L O 2 Activity/Resting Weight 208.0 lbs 11/12/2024 2L O2 Activity/ Resting BMI 35.15 kg/m2 11/12/2024 2L O2 Activity/ Resting Encounters Encounter Location Date Provider Diagnosis Pul[facility] [place] [address] [place] [address] 11/12/2024 [facility] COPD (chronic obstructive pulmonary disease) J44.9 ; Chronic respiratory failure with hypoxia J96.11 ; History of tobacco abuse Z87.891 ; History of TB (tuberculosis) Z86.11 and Obesity, unspecified E66.9 [facility] [place] [address] [place] [address] 05/26/2025 [facility] Assessments Encounter Date Diagnosis (ICD Code) Assessment Notes Treatment Notes Treatment Clinical Notes Section Notes 11/12/2024 COPD (chronic obstructive pulmon lara disease) (ICD-10 - J44.9) Prior treatments: Stiolto > Bevespi (no improvement) > Trelegy (worsened symptoms, burning chest ) Patient failed Bevespi and Trelegy, and Stiolto is too expensive. This limits the patient's medication options for COPD. Currently, she is not using albuterol often, but she is concerned about the springtime. I recommended changing albuterol to albuterol + ipratropium (DuoNeb) and use it on a regular basis (TID - QID) if symptoms begin worsening. Otherwise, if she feels she can get by without it,it is still available to use for PRN. She voiced she liked that option. Rx sent in. 5Chronic respiratory failure with hypoxia (ICD-10 - J96.11) Effe-og-miol encounter performed with the patient to document continued need for supplemental oxygen (O2). -Flow & directions: 2L/min -Patient voices adherence to recommended usage: Yes -Symptom control on O2: Less SOB -Counseled patient not begin, restart, or continue smoking, around the O2 due to risk of fire whichcould result in damage to the O2 tanks & lines, smoke inhalation and flame damage to the airway, significant navarro, potential , property damage, and potential harm & to bystanders.Additionally, counseled it is not najera to begin, restart, or continue smoking given the underlying pulmonary disease that led to the point of requiring O2. -Recommendations: She is doing well on her current O2 flow. Continue @ 2L/min ATC. 11/12/2024History of tobacco abuse (ICD-10 - Z87.891) 30+ pack-year history, quit as of hospitalization 01/24/2023. Not a LDCT candidate given renal cell carcinoma history. 11/12/2024History of TB (tuberculosis) (ICD-10 - Z86.11) Both she and her mother had TB. Her mother was at a sanitorium, but she was too young to go there,so she was quarantined at home, took medication, and was monitored from a child until she graduatedfrom high school. No evidence of active TB on CT chest. 11/12/2024Obesity, unspecified (ICD-10 - E66.9) Patient's weight is inducing a restrictive pulmonary physiology. Weight loss indicated: Decrease calories, increase activity. 11/12/2024Other Treatment caused N/V. Patient had hypercapnic respiratory failure during admission December 2022 but it has resolved. No evidence of clinical hypercapnia on examination today. Plan Of Treatment No Information Insurance Providers Payer Name Payer Address Payer Phone Subscriber Number Group Number Insured Name Patient Relationship to Insured Coverage Start Date Coverage End Date [place] [address] [place] [address] [id number] Russell Ibarra - patient is the [id number] [address] [id number], JeannetteSelf - patient is the [id number] 2019 Medical (General) History Medical History History ICD Code COPD (chronic obstructive pulmonary dise ase) J44.9 Chronic respiratory failure with hypoxia J96.11 CAD (coronary artery disease) I25.10 Renal cell carcinoma C64.9 Chronic systolic CHF (congestive heart f ailure) I50.22 Other secondary pulmonary hypertension I 27.[address] scan of lung R91.8 Hilar lymphadenopathy R59.0 History of tobacco abuse Z87.891 History of TB (tuberculosis) Z86.11 History of hypercapnia Z86.39 History of non-ST elevation myocardial i nfarction (NSTEMI) I25.2 Surgical History Surgery Date(Month/Year) Cardiac Catheterization 01/26/2023 oral surgery Hospitalization History Reason Date(Month/Year) [facility]ausea & [facility]omiting-[facility] [place] 10/19/2022 Acute Respiratory Failure/CHF Ex[facility]ati on[facility] 01/24/2023
--- OUTSIDE RECORDS SUMMARY | 2025-07-23 06:40 | XMS_ITS | Clinical Summary ---
Author Organization [facility] Address [address] [place] [address] Care Team Providers Care Content Analyst Name Role Phone Nedra Perez DEIDRE Primary Care Provider [phone] Guero Granado MD Unavailable Allergies Active AllergyReactionsCriticalityNoted DateCommentsErythromycinUnknown 01/25/2023 Per report from [place] HyjmlcuxkgpkyTtjrr23/03/1559PhhhqNyubFcz67/14/2025 Medications MedicationSigDispense QuantityRefillsLast FilledStart DateEnd DateStatus pantoprazole (ProtoNix) 40 mg EC tablet Take 40 mg by mouth in the morning.02/01/2023ctive loratadine (Claritin) 10 mg tablet Take 10 mg by mouth if needed each day.02/09/2023ctive escitalopram (Lexapro) 5 mg tablet Take 5 mg by mouth in the morning.04/07/2023ctive albuterol 90 mcg/actuation inhaler every 4 (four) hours.04/28/2023ctive famotidine (Pepcid) 20 mg tablet take 1 tablet by mouth every evening for BNHZZEIPQ60/10/2023ctive sacubitril-valsartan (Entresto) 24-26 mg tablet Indications:Dyspnea on exertionTake 1 tablet by mouth in the morning and at bedtime. 180 tablet ctive levothyroxine (Synthroid, Levoxyl) 50 mcg tablet Take 100 mcg by mouth in the morning.04/02/2024ctive metoprolol succinate XL (Toprol-XL) 25 mg 24 hr tablet Indications:Benign hypertensive heart disease with heart failure (CMS/HCC)Take 0.5 tablets (12.5 mg) by mouth once daily as directed. Do not crush or chew. 45 tablet ctive spironolactone (Aldactone) 25 mg tablet Indications:Acute coronary syndrome (CMS/HCC)Take 0.5 tablets (12.5 mg) by mouth once daily as directed. 45 tablet ctive atorvastatin (Lipitor) 20 mg tablet Indications:Acute coronary syndrome (CMS/HCC)Take 1 tablet (20 mg) by mouth at bedtime. 90 tablet ctive aspirin 81 mg EC tablet Take 81 mg by mouth in the morning.Active ipratropium-albuteroL (Duo-Neb) 0.5-2.5 mg/3 mL nebulizer solution Take 3 mL by nebulization in the morning, noon, at afternoon, at bedtime,. 5Active furosemide (Lasix) 20 mg tablet Indications:Heart failure with improved ejection fraction (HFimpEF) (CMS/HCC) Take 1 tablet (20 mg) by mouth in the morning. 30 tablet 111ctive Active Problems ProblemNoted DateDiagnosed DateFormer tobacco use07/11/2025Hilar lymphadenopathy 07/11/2025History of endocrine mscwtjef39/10/2025History of tuberculosis 07/11/2025Lung field /10/2025Other secondary pulmonary hypertension 07/11/2025enign hypertensive heart disease with heart lkfcwmv7712/16/2024Obesity, ocblqf1312/16/2024Elevated lactic acid level04/23/2024Encounter for antineoplastic jvolmcaidllw47/23/2024High risk medications (not anticoagulants) long-term use 04/23/2024cute kidney injury due to qfrufpbiocmvhc25/30/2024ancer related pain 01/30/2024hronic hypoxic respiratory nmxduzk7101/30/20244031Dnymzeqqjmcd56/30/2024 Counseling regarding advanced care planning and goals of care01/30/2024 Yxjffnyzfvvg42/30/2024Intractable nausea and ahwxovlx97/30/2024Iron deficiency hhflio7801/30/2024Nonischemic viohjzwgllygtz49/30/2024enal cell carcinoma of right niuvzc29enal mass Overview (10/12/2023): MRI 01/29/23: There is a heterogeneously enhancing right renal mass measures approximately 12.8 x 8.2 x 8.3 cm with extension into the right renal vein. No hydronephrosis on the right. 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 04/25/23: plan restaging with ct chest, mri abd. Comp. Not a great surgical candidate given o2 and recent [place]. AFter restaging may consider second opinion at [facility] but personally I'm not sure she would [...] indicated. COPD (chronic obstructive pulmonary disease)03/21/2023Myocardial infarction 3Acute coronary iibsoeji54/26/2023cute respiratory failure with hypoxia and oarfzxxhcoj73/26/2023arainfluenza sgmboorpx66/26/2023cute systolic heart efnrguf1701/25/2023 Encounters DateTypeDepartmentCare WpsoXkmrqmzgpek75/13/2025 1:00 PM EDTOffice Visit [facility] [address] [place] [address] Ranjan Chang CNP Heart failure with improved ejection fraction (HFimpEF) (CMS/HCC) (Primary Dx); Coronary artery disease involving burns paiute coronary artery of burns paiute heart without angina pectoris; Benign hypertensive heart disease with heart failure (CMS/HCC)from Last 3 Months Immunizations ImmunizationAdministration DatesNext DueInfluenza, Seasonal, Quadrivalent, Qpoxcxmssl44/26/2021Pfizer SARS-CoV-2 Ngniavwcnxs15/21/2021,12/29/2020, 12/08/2020 Family History Medical HistoryRelationNameCommentsHeart attackBrotherHeart attackMaternal GrandfatherHeart failureMaternal GrandmotherTuberculosisMotherRelationNameStatus CommentsBrotherDeceasedFatherDeceasedMaternal GrandfatherMaternal Grandmother MotherDeceasedSisterDeceased Social History Tobacco UseTypesPacks/DayYears UsedDateSmoking Tobacco: FormerCigarettesQuit: 01/26/2023Smokeless Tobacco: Never Tobacco Cessation:Counseling Given: Not Answered Alcohol UseStandard Drinks/WeekCommentsNever0 (1 standard drink = 0.6 oz pure alcohol)Humiliation, Afraid, Rape, and Kick questionnaireAnswerDate Recorded Within the last year, have you been afraid of your partner or ex-partner?Patient gekbpkgc03/27/2023Emotionally AbusedNot on file01/26/2023hysically AbusedNot on file01/26/2023Sexually AbusedNot on file01/26/2023Overall Financial Resource Strain (CARDIA)AnswerDate RecordedHow hard is it for you to pay for the very basics like food, housing, medical care, and heating?Patient htdmmoyf43/27/2023 PHQ-2AnswerDate RecordedPatient Health Questionnaire-2 Oeiid397UT Safety & EnvironmentAnswerDate RecordedFear of Current or Ex-PartnerNot on file 02/08/2024Emotionally AbusedNot on file02/08/2024hysically AbusedNot on file 02/08/2024Sexually AbusedNot on file02/08/2024hysically or Sexually AbusedNot on file02/08/2024TransportationAnswerDate RecordedIn the past 12 months, has lack of transportation kept you from medical appointments or from getting medications?Patient zeekkghh82/27/2023Lack of Transportation (Non-Medical)Not on file01/26/2023Housing Stability Vital SignAnswerDate RecordedUnable to Pay for Housing in the Last YearNot on file04/27/2023Number of Places Lived in the Last YearNot on file01/26/2023In the last 12 months, was there a time when you did not have a steady place to sleep or slept in [facility] (including now)?Patient bvhrutr1301/26/2023Hunger Vital SignAnswerDate RecordedWithin the past 12 months, you worried that your food would run out before you got the money to buymore. Patient pnqiufri94/27/2023Ran Out of Food in the Last YearNot on file01/26/2023 CommentsUnknownSex and Gender InformationValueDate RecordedSex Assigned at SpmojNblapb32/20/2023 12:15 PM EDTLegal EgzMpvpvy82/26/2023 10:42 AM EDT Gender WytwhzhmZphszt24/20/2023 12:15 PM EDTSexual OrientationHeterosexual or Pcxbkvla72/20/2023 12:15 PM EDT Last Filed Vital Signs Vital SignReadingTime TakenCommentsBlood Daoknyxc228/7207/14/2025 12:58 PM EDT Mvawz024607/14/2025 12:58 PM DTCNtbjxzwgfiq82.8 ??C (98.2 ??F)01/31/2023 7:00 AM EDTRespiratory Fneu459201/31/2023 7:00 AM EDTOxygen Oavsjmtyfm17%07/14/2025 12:58 PM EDT2 lpm via n/cInhaled Oxygen Concentration--Eqbtpg366 kg (225 lb)07/14/2025 12:58 PM IWSCheajn783.1 cm (5' 5 )07/14/2025 12:58 PM EDTBody Mass Index37.44 07/14/2025 12:58 PM EDT Plan of Treatment DateTypeDepartmentCare Team (Latest Contact Info)Wwvofsjkajp43/11/2025 1:15 PM ESTOffice Visit [facility] [place] [address] [place] [address] Robbi Henderson MD [address] [facility] [place] [address] Health MaintenanceDue DateLast DoneCommentsCT Lshonzkkymaf1954Colonoscopy 1954olorectal Cancer Lhmwqyqyn1954FIT-DNA1954FIT1954 FOBT1954Medicare Annual Wellness (AWV)08/01/19540965Bybzwiwedlljg1954 Depression Hdsrkftpm40/31/1966Pneumococcal Vaccine: 50+ Years (1 of 2 - PCV) 1973Adult Bakuyqt8808/01/19760269Cmcqeiskt31/31/1994Zoster Vaccines (1 of 2) 2004Fall Risk Rjlnmqrvn69/31/2019COVID-19 Vaccine ( - season) , 12/29/2020, 12/08/2020Influenza Vaccine (#1)2025 07/24/2024, 07/27/2021HIB VaccinesAged OutNo longer eligible based on patient's age to complete this topicHPV VaccinesAged OutNo longer eligible based on patient's age to complete this topicIPV VaccinesAged OutNo longer eligible based on patient's age to complete this topicMeningococcal B VaccineAged OutNo longer eligible based on patient's age to complete this topicMeningococcal VaccineAged OutNo longer eligible based on patient's age to complete this topicRotavirus VaccinesAged OutNo longer eligible based on patient's age to complete this topic Insurance Advance Directives TypeDate RecordedPatient RepresentativeExplanationPower of Attorney02/01/2023 7:59 [facility] 01/28/2023 * Full Code (Latest Code Status on File) Date ActivatedDate InactivatedComments01/25/2023 9:47 PM01/31/2023 9:26 PM Care Teams Team MemberRelationshipSpecialtyStart DateEnd Date Nedra Perez FNP PCP - General01/31/23 Guero Granado MD [address] [place] [id number] Consulting CpinsrdexXwcapkc61/25/23
--- OUTSIDE RECORDS SUMMARY | 2025-07-23 06:40 | XMS_ITS | Clinical Summary ---
Author Organization [facility] Address [address] [place] [address] Phone Care Team Providers Care Terrestrial Ecologist Name Role Phone Unavailable Primary Care Provider Unavailabl e Medications MedicationSigDispense QuantityRefillsLast FilledStart DateEnd DateStatus axitinib (Inlyta) 5 mg tablet Take one tablet (5 mg) by mouth twice daily 60 tablet 9:22 AM EST09/07/2023ctive Social History Tobacco UseTypesPacks/DayYears UsedDateSmoking Tobacco: Never Assessed CommentsUnknownSex and Gender InformationValueDate RecordedSex Assigned at Not on fileLegal MuhQyobur25/08/2023 9:10 AM ESTGender IdentityNot on fileSexual OrientationNot on file Plan of Treatment Not on file
--- OUTSIDE RECORDS SUMMARY | 2025-07-23 06:40 | XMS_ITS | Clinical Summary ---
Author Organization [facility] Address [address] [place] [address], [address] [place] [address] Care Team Providers Care Maid Cleaning Cooking Name Role Phone Unavailable Primary Care Provider Unavailabl e Social History Tobacco UseTypesPacks/DayYears UsedDateSmoking Tobacco: Never Assessed CommentsUnknownSex and Gender InformationValueDate RecordedSex Assigned at Not on fileLegal CibVluykm22/13/2025 3:07 PM EDTGender IdentityNot on fileSexual OrientationNot on file Plan of Treatment DateTypeDepartmentCare Team (Latest Contact Info)Jeddqvshxyf69/13/2026 3:00 PM ESTOffice Visit [facility] [address] [place] [address] [address] [place] [address] Jason Cervantes DO [address] [facility] [address] [place] [address] SISAL PICKER-MASON PT- COPD
--- OUTSIDE RECORDS SUMMARY | 2025-07-23 06:40 | XMS_ITS | Clinical Summary ---
Author Organization [facility] Address [id number] [address] [place] [address] Care Team Providers Care Range Technician Name Role Phone Unavailable Primary Care Provider Unavailabl e Allergies Active AllergyReactionsCriticalityNoted DateCommentsErythromycinOther (See Comments)01/25/2023 Per report from roderick PembrolizumabOther (See Comments)11/04/2024 Medications MedicationSigDispense QuantityRefillsLast FilledStart DateEnd DateStatus ENTRESTO 24-26 mg tablet 03/23/2023ctive atorvastatin (LIPITOR) 20 mg tablet Take 1 tablet (20 mg total) by mouth in the morning.Active spironolactone (ALDACTONE) 25 mg tablet Take 1 tablet (25 mg total) by mouth in the morning. Cut in half.Active aspirin 81 mg Take 1 tablet (81 mg total) by mouth in the morning.Active ondansetron ODT (ZOFRAN ODT) 4 mg disintegrating tablet 10/18/2023ctive senna (SENOKOT) 8.6 mg tablet 10/24/2023ctive polyethylene glycol (MIRALAX) 17 gram packet Take 17 g by mouth in the morning.10/24/2023ctive famotidine (PEPCID) 20 mg tablet Take 1 tablet (20 mg total) by mouth nightly as needed for heartburn. 30 tablet ctive albuterol (PROVENTIL,VENTOLIN) 2.5 mg /3 mL (0.083 %) nebulizer solution Indications:Chronic obstructive pulmonary disease with acute exacerbation ([facility])Inhale 3 mL (2.5 mg total) by nebulization every 6 (six) hours as needed for wheezing. 75 mL 614Active metoprolol succinate XL (TOPROL XL) 25 mg 24 hr tablet Take 0.5 tablets (12.5 mg total) by mouth.506Active ipratropium-albuteroL (DUONEB) 0.5 mg-3 mg(2.5 mg base)/3 mL nebulizer 5Active escitalopram (LEXAPRO) 10 mg tablet Take 1 tablet (10 mg total) by mouth.5Active levothyroxine (SYNTHROID, LEVOTHROID) 100 MCG tablet Take 1 tablet (100 mcg total) by mouth.5Active triamcinolone (KENALOG) 0.5 % ointment Indications:Left leg cellulitisApply 1 Application topically in the morning and 1 Application before bedtime. 30 g 5Active Active Problems ProblemNoted DateDiagnosed DateBenign hypertensive heart disease with heart ofejcqe6712/16/2024Obesity, kpthbq1512/16/2024Nonischemic uvrydginnvprdw59/30/2024 Iron deficiency lsuyll2401/30/2024Intractable nausea and yviufkmm68/30/2024 Tdpqvklqbxil01/30/2024ounseling regarding advanced care planning and goals of care01/30/20248715Egkarnctsamf22/30/2024ancer related pain01/30/2024cute kidney injury due to yjihjopieckbed65/30/2024enal cell carcinoma of right kidney 07/11/2023Renal mass04/24/2023 Overview (05/08/2023): MRI 01/29/23: There is a heterogeneously enhancing right renal mass measures approximately 12.8 x 8.2 x 8.3 cm with extension into the right renal vein. No hydronephrosis on the right. 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 04/25/23: plan restaging with ct chest, mri abd. Comp. Not a great surgical candidate given o2 and recent SC. AFter restaging may consider second opinion at [facility] but personally I'm not sure she would [...] with dedicated thyroid ultrasound as clinically indicated. Acute coronary oddzuxqz25/arainfluenza itjpuoxsd60/26/2023 02/06/2023OPD (chronic obstructive pulmonary disease)Myocardial infarction Resolved Problems ProblemNoted DateDiagnosed DateResolved DateChronic hypoxic respiratory failure /hronic systolic heart /cute respiratory failure with hypoxia and Acute systolic heart biuhulr23 Immunizations ImmunizationAdministration DatesNext DueCOVID-19, mRNA, LNP-S, PF, 100mcg/0.5mL Dose09/21/2020Influenza Vaccine, Quadrivalent, Etmyxnbzgg08/26/2021 Family History Medical HistoryRelationNameCommentsHeart diseaseBrotherCirrhosisFatherMultiple sclerosisMotherTuberculosisMotherHeart diseasePaternal GrandfatherHeart disease Paternal GrandmotherAsthmaPaternal UncleBRCA isterRelationNameStatusComments BrotherAliveFatherDeceasedMotherDeceasedPaternal GrandfatherPaternal Grandmother Paternal UncleSisterDeceased Social History Tobacco UseTypesPacks/DayYears UsedDateSmoking Tobacco: FormerCigarettes Smokeless Tobacco: Never Tobacco Cessation:Counseling Given: Not Answered Alcohol UseStandard Drinks/WeekCommentsNever0 (1 standard drink = 0.6 oz pure alcohol)Social Connection and Isolation PanelAnswerDate RecordedIn a typical week, how many times do you talk on the phone with family, friends, or neighbors?Three times a week06/22/2023How often do you get together with friends or relatives?Once a week06/22/2023How often do you attend yazidism or jehovah's witness services?Never06/22/2023o you belong to any clubs or organizations such as yazidism groups, unions, [employer] or athletic groups, or school groups?No 06/22/2023How often do you attend meetings of the clubs or organizations you belong to?Never06/22/2023re you , , , , never , or living with a partner?Hkqaklc1806/22/2023UDIT-CAnswerDate RecordedQ1: How often do you have a drink containing alcohol?Never06/22/2023Q2: How many drinks containing alcohol do you have on a typical day when you are drinking? Patient does not drink06/22/2023Q3: How often do you have six or more drinks on one occasion?Never06/22/2023Overall Financial Resource Strain (CARDIA)AnswerDate RecordedHow hard is it for you to pay for the very basics like food, housing, medical care, and heating?Not very hard06/22/2023HQ-2AnswerDate RecordedTotal Bdzrc743[facility] [place] of Occupational Health - Occupational Stress QuestionnaireAnswerDate RecordedDo you feel stress - tense, restless, nervous, or anxious, or unable to sleep at night because yourmind is troubled all the time - these days?Only a ygkqxl8806/22/2023Exercise Vital SignAnswerDate Recorded On average, how many days per week do you engage in moderate to strenuous exercise (like a brisk walk)?0 days06/22/2023On average, how many minutes do you engage in exercise at this level?0 min06/22/2023RAPARE - TransportationAnswer Date RecordedIn the past 12 months, has lack of transportation kept you from medical appointments or from getting medications?No06/22/2023In the past 12 months, has lack of transportation kept you from meetings, work, or from getting things needed for daily living?No06/22/2023Housing InstabilityAnswerDate RecordedAre you worried or concerned that in the next two months you may not have stable housing that you own, rent or stay in as a part of a household?No 06/22/2023hildcareAnswerDate RecordedDo problems getting childbirth and infant care teacher make it difficult for you to work or study?No06/22/2023EmploymentAnswerDate RecordedDo you need help finding a local career center and/or a training program?No 06/22/2023Hunger ScreeningAnswerDate RecordedWithin the past 12 months we worried whether our food would run out before we got money to buy more.Never True03/27/2025Within the past 12 months the food we bought just didn't last and we didn't have money to get more.Never True03/27/2025Purpose - LifeAnswerDate RecordedI have a purpose and direction in my life.Agree06/22/2023 CommentsUnknownSex and Gender InformationValueDate RecordedSex Assigned at Not on fileLegal TrqZgsykt23/17/2021 1:08 PM ESTGender IdentityNot on fileSexual OrientationNot on file Last Filed Vital Signs Vital SignReadingTime TakenCommentsBlood Ipiwjufk941/68003/27/2025 1:18 PM EDT Trhnw85766/26/2025 1:18 PM UAJVucyrselgvo74.1 ??C (98.7 ??F)03/27/2025 1:18 PM EDTRespiratory Jewi052903/27/2025 1:18 PM EDTOxygen Wztbpolqiv86%03/27/2025 1:18 PM EDTInhaled Oxygen Concentration--Elexgb90 kg (218 lb 3.2 oz)03/27/2025 1:18 PM OZFFjyjqz984.5 cm (5' 2.01 )03/27/2025 1:18 PM EDTBody Mass Index39.9 03/27/2025 1:18 PM EDT Plan of Treatment Health MaintenanceDue DateLast DoneCommentsStatin Use: Expyjphhjeggdl1955 DTaP,Tdap and Td Vaccines (1 - Tdap)1973Zoster (Shingles) Vaccine (1 of 2) 1973Medicare Annual Wellness Visit/Influenza Vaccine /, 07/27/2021dult BMI Follow Up Plan Adult BMI Erdrzvxsj78Depression Xuczojkxa06 Fall Risk Yorewiviq54Tobacco Cvwaectnk51/ COVID-19 TsuyephXouljrxfrpvl79/21/2020 Medical Devices Not on file Insurance
--- OUTSIDE RECORDS SUMMARY | 2025-07-23 06:40 | XMS_ITS | Clinical Summary ---
Author Organization [facility] Address [address] [place] [address] Care Team Providers Care Director Of Front Office Name Role Phone Unavailable Primary Care Provider Unavailabl e Social History Tobacco UseTypesPacks/DayYears UsedDateSmoking Tobacco: Never Assessed CommentsUnknownSex and Gender InformationValueDate RecordedSex Assigned at Not on fileLegal YqbKtskej22/30/2023 10:13 AM EDTGender IdentityNot on file Sexual OrientationNot on file Plan of Treatment Not on [place] [id number]
--- OUTSIDE RECORDS SUMMARY | 2025-07-23 06:41 | XMS_ITS | CCD ---
Author Organization [facility] Care Team Providers Care Clinic Assistant Name Role Phone [place]al [place] Attending Unavailable [...] Unavailable DO Aries Chavez II [facility] [phone] Self, Referral Referring Provider Unavailable DO Aries Chavez II Attending Provider [phone] [facility] Self, Referral Referring Provider Unavailable DO Aries Chavez II Attending Provider [phone] [facility] Self, Referral Referring Provider Un[facility] DO Aries Chavez II Attending Provider Self, Referral Referring Provider Unavailable Self, Referral Referring Provider Unavailable Self, Referral Referring Provider Unavailable Self, Referral Referring Provider Unavailable Self, Referral Referring Provider Unavailable Unavailable Primary Care Provider Unavailabl e Self, Referral Referring Provider Unavailable Ranjanowicz II, DO Aries Guzman Attending Provider [facility], [facility] Primary Care Provider Self, Referral Referring Provider Unavailable Adamowicz II, DO Aries Guzman Attending Provider [facility], [facility] Primary Care Provider Self, Referral Referring Provider Unavailable Adamowicz II, DO Aries Guzman Attending Provider [facility], [facility] Primary Care Provider [phone] Self, Referral Referring Provider Unavailable Ranjanowicz II, DO Aries Guzman Attending Provider [facility], [facility] Primary Care Provider [phone] Self, Referral Referring Provider Unavailable Lennyicz II, DO Aries Guzman Attending Provider [facility], [facility] Primary Care Provider [phone] Self, Referral Referring Provider Unavailable Aries Chavez DO Attending Provider [phone] [facility], [facility] Primary Care Provider Self, Referral Referring Provider Unavailable Daniel [facility] Primary Care Provider Toro Geller Primary Care Provid er Aries Chavez DO Attending Provider [phone] [facility] Primary Care Provider Self, Referral Referring Provider Unavailable Aries Chavez DO [facility] Primary Care Provider [phone] Self, Referral Referring Provider Unavailable Aries Chavez II Admitting Unavaila ble Aries Chavez II Attending Unavaila ble Self, Referral Referring Unavailable [facility] Primary Care Unavailable Toro Geller Primary Care Provid er TORO BARON Attending Unavailable TORO BARON Referring Unavailable TORO BARON Primary Care Unavailable TORO BARON Attending Unavailable TORO BARON Referring Unavailable TORO BARON Primary Care Unavailable RANJAN HONG Attending Unavailable RANJAN HONG Attending Unavailable AMMY BRIDGES Attending Unavailable Allergies Allergy ClassificationReported Allergen(s)Allergy TypeDate of OnsetReaction(s) Facility (8 sources)ErythromycinDrug Cfkciqk45-63-7448AamccperJmy [facility] (9 sources)Erythromycin; Translations: [ERYTHROMYCIN]Drug Vpmjexs48-99-5074Qcpqc (See Comments)[facility] (4 sources)pembrolizumab; Translations: [PEMBROLIZUMAB]Drug Xhogpoa38-39-2908 Other (See Comments)[facility] (1 source)ErythromycinDrug Zsdqbmf45-18-3278[facility] (1 source)Latex; Translations: [LATEX]Propensity to adverse reactions to drug (disorder)18-03-7334[facility] Medications Current Medications MedicationDrug Class(es)DatesSig (Normalized)Sig (Original)albuterol 0.83 mg/ml inhalation solution (14 sources)beta2-Adrenergic AgonistStart: 01-30-2024 End: 58-27-2307txfj 3 mL by inhalation every six hours as needed for wheezing albuterol (PROVENTIL,VENTOLIN) 2.5 mg /3 mL (0.083 %) nebulizer solution Indications: Chronic obstructive pulmonary disease with acute exacerbation ([facility]) Inhale 3 mL (2.5 mg total) by nebulization every 6 (six) hours as needed for wheezing. 75 mL 6 08/05/2024 ActiveStart: 04-28-2023 End: 69-36-6651cohm 2 puff(s) by mouth every four hoursVENTOLIN HFA 90 mcg/actuation inhaler inhale 2 puffs by mouth and INTO THE LUNGS every 4 hours if needed for shortness of breath 04/28/2023 03/27/2025 Discontinued (Therapy completed)albuterol 0.833 mg/ml / ipratropium bromide 0.167 mg/ml inhalation solution (2 sources)Anticholinergic, beta2-Adrenergic AgonistStart: 11-15-2024 ipratropium-albuteroL (DUONEB) 0.5 mg-3 mg(2.5 mg base)/3 mL nebulizer 11/15/2024 ActiveStart: 33-13-6080iios 3 mL by inhalation four times daily ipratropium-albuteroL (DUONEB) 0.5 mg-3 mg(2.5 mg base)/3 mL nebulizer INHALE 3ml via NEBULIZER FOUR TIMES DAILY 11/15/2024 Activeamoxicillin 875 mg / clavulanate 125 mg oral tablet (2 sources)Penicillin-class AntibacterialStart: 01-30-2024 End: 91-83-1491mklb 1 tablet by mouth once in the morningamoxicillin-pot clavulanate (AUGMENTIN) 875-125 mg per tablet Take 1 tablet by mouth in the morningand 1 tablet before bedtime. Do all this for 7 days. 14 tablet 01/30/2024 02/06/2024 ActiveStart: 12-26-2023 End: 31-76-1262kadj 1 tablet by mouth once in the morningamoxicillin-pot clavulanate (AUGMENTIN) 875-125 mg per tablet Indications: Acute recurrent frontal sinusitis Take 1 tablet by mouth in the morning and 1 tablet before bedtime. Do all this for 7 days.14 tablet 0 12/26/2023 01/02/2024 Activeaspirin 81 mg delayed release oral tablet (18 sources)Platelet Aggregation Inhibitor, Nonsteroidal Anti-inflammatory Drug Start: 12-79-0108uede 1 tablet by mouth once dailyAspirin 81 mg tablet,delayed release (DR/EC) Active 81 MG PO Daily October 20, 2023 1:00amatorvastatin 20 mg oral tablet (20 sources)HMG-CoA Reductase InhibitorStart: 25-59-6390riut 1 tablet by mouth once daily at bedtimeAtorvastatin 20 mg tablet Active 20 MG PO Daily at bedtime June 21, 2023 12:00amcephalexin 500 mg oral capsule (1 source)Cephalosporin AntibacterialStart: 03-27-2025 End: 74-38-4231adhn 1 capsule by mouth three times dailyCEPHalexin (KEFLEX) 500 mg capsule Indications: Left leg cellulitis Take 1 capsule (500 mg total) by mouth 3 (three) times a day for 7 days. 21 capsule 03/27/2025 04/03/2025 Active docusate sodium 100 mg oral capsule (7 sources)Start: 14-13-3970jrzi 1 capsule by mouth once dailyDocusate Sodium (Colace) 100 mg capsule Active 100 MG PO Daily March 29, 2024 12:00am escitalopram 10 mg oral tablet (20 sources)Serotonin Reuptake InhibitorStart: 60-20-9403cijdzxyjjjym (LEXAPRO) 10 mg tablet Take 1 tablet (10 mg total) by mouth. 11/23/2024 ActiveStart: 04-19-2024 End: 33-85-6372vyvv 1 tablet by mouth once daily in the morningEscitalopram Oxalate 10 mg tablet Discontinued 0 .ROUTE .COMPLEX 90 April 23, 2024 3:34pm 2023 4:08pm take 1 tablet by mouth every morningStart: 03-29-2024 End: 95-81-0239ebwd 1 tablet by mouth once daily in the morningEscitalopram Oxalate 10 mg tablet Discontinued 10 MG PO Every morning March 29, 2024 10:15am April 19, 2024 2:28pmStart: 06-21-2023 End: 03-98-0539gajj 1 tablet by mouth once daily in the morningEscitalopram Oxalate 5 mg tablet Discontinued 5 MG PO Every morning June 21, 2023 12:00am March 29, 2024 10:16amfamotidine 20 mg oral tablet (20 sources)Histamine-2 Receptor AntagonistStart: 13-87-9452khmn 1 tablet by mouth once daily as needed for gastroesophageal reflux diseasefamotidine (PEPCID) 20 mg tablet Take 1 tablet (20 mg total) by mouth nightly as needed for heartburn. 30 tablet 2 07/22/2024 ActiveStart: 07-11-2023 End: 35-00-6292ghyx 1 tablet by mouth once daily as needed for gastroesophageal reflux diseasefamotidine (PEPCID) 20 mg tablet Take 1 tablet (20 mg total) by mouth nightly as needed for heartburn. 30 tablet 2 07/22/2024 Activefurosemide 20 mg oral tablet (1 source)Loop DiureticStart: 48-99-9868nahb 1 tablet by mouth once daily as needed for edemaFurosemide (Lasix) 20 mg tablet Active 20 MG PO Daily as needed for edema January 27, 2025 12:00amlevothyroxine sodium 0.1 mg oral tablet (20 sources)l-ThyroxineStart: 57-30-5460pohubrtwxuqdg (SYNTHROID, LEVOTHROID) 100 MCG tablet Take 1 tablet (100 mcg total) by mouth. 12/05/2024 ActiveStart: 06-24-2024 End: 99-40-3861pjepdgfkelekh (SYNTHROID, LEVOTHROID) 100 MCG tablet Take 1 tablet (100 mcg total) by mouth. 12/05/2024 ActiveStart: 05-10-2024 End: 40-22-6962aaye 1 capsule by mouth once dailyLevothyroxine 75 mcg capsule Discontinued 75 MCG PO Daily May 10, 2024 10:38am June 24, 2024 1:29pmStart: 03-29-2024 End: 68-64-4706xvhj 1 capsule by mouth once dailyLevothyroxine 50 mcg capsule Discontinued 50 MCG PO Daily March 29, 2024 12:00am May 10, 2024 10:43am Start: 02-19-2024 End: 18-00-9106npuz 1 tablet by mouth once dailyLevothyroxine 75 mcg tablet Discontinued 0 .ROUTE .COMPLEX February 19, 2024 9:16am March 290:04am take 1 tablet by mouth dailyStart: 01-18-2024 End: 34-32-6869vcoj 1 tablet by mouth once dailyLevothyroxine (Synthroid) 75 mcg tablet Discontinued 75 MCG PO Daily January 18, 2024 12:00am February 19, 2024 9:16amStart: 12-29-2023 End: 85-05-6421pxqq 1 tablet by mouth once dailyLevothyroxine (Synthroid) 50 mcg tablet Discontinued 50 MCG PO Daily December 29, 2023 12:00am January 18, 2024 2:53pm24 hr metoprolol succinate 25 mg extended release oral tablet (20 sources)beta-Adrenergic BlockerStart: 12-10-2024 End: 89-66-0392jjyq 0.5 tablet by mouth every twenty-four hoursmetoprolol succinate XL (TOPROL XL) 25 mg 24 hr tablet Take 0.5 tablets (12.5 mg total) by mouth. 12/10/2024 12/10/2025 ActiveStart: 44-38-1877musr 1 tablet by mouth every twenty-four hoursMetoprolol Succinate 25 mg tablet extended release 24 hr Active 25 MG PO As Directed June 21, 2023 12:00amStart: 04-21-2023 End: 63-01-1963bkgo 0.5 tablet by mouth every twenty-four hoursmetoprolol succinate XL (TOPROL XL) 25 mg 24 hr tablet Take 0.5 tablets (12.5 mg total) by mouth. 04/21/2023 04/20/2024 ActiveOmeprazole Magnesium (Prilosec Otc) 20 mg tablet,delayed release (DR/EC) (2 sources)Start: 81-89-1392nzwq 1 tablet by mouth once dailyOmeprazole Magnesium (Prilosec Otc) 20 mg tablet,delayed release (DR/EC) Active 20 MG PO Daily November 25, 2024 1:00amStart: 54-23-4885pfog 1 tablet by mouth once dailyOmeprazole Magnesium (Prilosec Otc) 20 mg tablet,delayed release (DR/EC) Active 20 MG PO Daily November 25, 2024 12:00amondansetron 4 mg disintegrating oral tablet (20 sources)Serotonin-3 Receptor AntagonistStart: 10-18-2023 End: 77-88-6056eqel 1 tablet by mouth every six hours as needed for nausea and vomitingOndansetron 4 mg tablet,disintegrating Active 4 MG PO Q6H as needed for nausea and vomiting 2023 10:15amStart: 10-17-2023 End: 74-46-4905zoex 1 tablet by mouth every eight hours as needed for nausea Ondansetron 4 mg Tablet,Disintegrating Discontinued 4 MG PO Q8H as needed for Nausea October 17, 2023 8:47pm October 24, 2023 12:58pmpolyethylene glycol 3350 52733 mg powder for oral solution (17 sources)Osmotic LaxativeStart: 46-31-9079spqpwcmhnrud glycol (MIRALAX) 17 gram packet Take 17 g by mouth in the morning. 10/24/2023 Activesacubitril 24 mg / valsartan 26 mg oral tablet (20 sources)Angiotensin 2 Receptor BlockerStart: 59-47-7984elww 1 tablet by mouth twice dailySacubitril-Valsartan (Entresto) 24-26 mg tablet Active 1 TAB PO Twice daily June 21, 2023 12:00amStart: 65-26-1464LZPOSLEJ 24-26 mg tablet 03/23/2023 ActiveStart: 94-56-0790jege 1 tablet by mouth once daily at bedtimeENTRESTO 24-26 mg tablet take 1 tablet by mouth every morning and at bedtime 03/23/2023 Activesennosides, senior care 8.6 mg oral tablet (6 sources)Start: 40-06-2054cmkmx (SENOKOT) 8.6 mg tablet 10/24/2023 Active spironolactone 25 mg oral tablet (20 sources)Aldosterone AntagonistStart: 18-27-7006Qntfavkmgzksjk 25 mg tablet Active 12.5 MG PO As Directed June 21, 2023 12:00amStart: 06-21-2023 Spironolactone Active 12.5 MG PO As Directed June 21, 2023 12:00am spironolactone (ALDACTONE) 25 mg tablet Take 1 tablet (25 mg total) by mouth in the morning. Cut inhalf. ActivetraMADol hydrochloride 50 mg oral tablet (2 sources)Opioid AgonistStart: 72-57-9247bhjo 1 tablet by mouth every eight hours as neededTramadol 50 mg tablet Active 50 MG PO Every 8 hours as needed January 27, 2025 12:00amStart: 12-16-2024 End: 45-63-3243rknh 1 tablet by mouth every eight hours as needed for pain traMADoL (ULTRAM) 50 mg tablet Indications: Arthritis, multiple joint involvement Take 1 tablet (50mg total) by mouth every 8 (eight) hours as needed for pain for up to 7 days. 21 tablet 12/16/2024 12/23/2024 Activetriamcinolone acetonide 0.005 mg/mg topical ointment (1 source)CorticosteroidStart: 46-09-2754lfnsnsfebvdls (KENALOG) 0.5 % ointment Indications: Left leg cellulitis Apply 1 Application topically in the morning and 1 Application before bedtime. 30 g 03/27/2025 Active Completed/Discontinued Medications MedicationDrug Class(es)DatesSig (Normalized)Sig (Original)ALPRAZolam 0.25 mg oral tablet (6 sources)BenzodiazepineStart: 04-07-2023 End: 52-50-4519BKJCLLikcz (XANAX) 0.25 mg tablet Indications: Anxiety Use twice daily as needed for anxiety - short term use only 10 tablet 04/07/2023 12/16/2024 Discontinued (Therapy completed)axitinib 5 mg oral tablet (14 sources)Kinase InhibitorStart: 09-07-2023 End: 35-47-0775zleu 1 tablet by mouth twice dailyAxitinib (Inlyta) 5 mg Tablet Discontinued 5 MG PO Twice daily 60 September 07, 2023 1:00am 2023 2:22pm On Hold: Hold until seen by Cancer doctorbenzonatate 100 mg oral capsule (5 sources)Non-narcotic AntitussiveStart: 06-04-2024 End: 10-49-3937xtzf 1 capsule by mouth three times dailyBenzonatate 100 mg capsule Discontinued 100 MG PO Three times daily 21 04June 04, 2024 12:00am June 24, 2024 1:55zdEklkwpkffgx-Brxouwvso-Xrudnwla (6 sources)Anticholinergic, Corticosteroid, beta2-Adrenergic AgonistStart: 05-10-2024 End: 98-48-1371Ynludsywicl-Umeclidin-Vilanter (Trelegy Ellipta) 100-62.5-25 mcg blister with device Discontinued 1INH INHALATION Daily May 10, 2024 12:00am October 01, 2024 10:27amStart: 05-10-2024 End: 73-41-7379Ueggbcqqwxn-Umeclidin-Vilanter (Trelegy Ellipta) 100-62.5-25 mcg blister with device Discontinued 1INH INHALATION Daily May 09, 2024 11:00pm October 01, 2024 9:27amStart: 02-82-0147Uxafqgkxjtr-Umeclidin-Vilanter (Trelegy Ellipta) 100-62.5-25 mcg blister with device Active 1 INH INHALATION Daily May 10, 2024 12:99dg289 actuat formoterol fumarate 0.0048 mg/actuat / glycopyrrolate 0.009 mg/actuat metered dose inhaler (15 sources)beta2-Adrenergic AgonistStart: 08-28-2023 End: 46-67-9195Xlqizjpktglvxh-Formoterol (Bevespi Aerosphere) 9-4.8 mcg Hfa Aerosol Inhaler Discontinued 2 PUFF INHALATION Twice daily August 28, 2023 1:00am October 20, 2023 3:29amloratadine 10 mg oral tablet (18 sources)Start: 06-21-2023 End: 21-00-7467ryac 1 tablet by mouth once dailyLoratadine 10 mg Tablet Discontinued 10 MG PO Daily June 21, 2023 12:00am June 23, 2023 1:28pmTiotropium-Olodaterol (17 sources)Anticholinergic, beta2-Adrenergic AgonistStart: 07-31-2023 End: 31-67-1420Bzzwoqlmmb-Olodaterol (Stiolto Respimat) 2.5-2.5 mcg/actuation Mist Discontinued 2 PUFF INHALATION Daily July 31, 2023 12:00am October 20, 2023 3:30amStart: 07-31-2023 End: 95-48-4867Bljkiaoaae-Olodaterol (Stiolto Respimat) 2.5-2.5 mcg/actuation Mist Discontinued 2 PUFF INHALATION Daily July 30, 2023 11:00pm October 20, 2023 2:30amStart: 10-34-3515Pcrdhrqdlp-Olodaterol (Stiolto Respimat) 2.5- 2.5 mcg/actuation Mist Active 2 PUFF INHALATION Daily July 30, 2023 11:00pm Start: 09-63-9016Bfdeofdeix-Olodaterol (Stiolto Respimat) 2.5-2.5 mcg/actuation Mist Active 2 PUFF INHALATION Daily July 31, 2023 12:00amoxyCODONE hydrochloride 5 mg oral tablet (11 sources)Opioid AgonistStart: 10-24-2023 End: 93-24-7622qjwn 2.5 mg by mouth every three hours as needed for pain Oxycodone 5 mg Tablet Discontinued 2.5 MG PO Every three hours as needed for Pain 21 03October 24, 2023 May 10, 2024 9:56amStart: 10-24-2023 End: 04-38-8120yxph 2.5 mg by mouth every three hoursOxycodone Discontinued 2.5 MG PO Every three hours 21 03October 24, 2023 May 10, 2024 9:56am pantoprazole 40 mg delayed release oral tablet (20 sources)Proton Pump InhibitorStart: 06-21-2023 End: 95-84-3134hihq 1 tablet by mouth once dailyPantoprazole 40 mg Tablet,Delayed Release (Dr/Ec) Discontinued 40 MG PO Daily June 21, 2023 12:00am May 10, 2024 10:40am4 ml pembrolizumab 25 mg/ml injection (6 sources)Programmed Receptor-1 Blocking Antibody End: 65-67-1673gawhmjnhnyugh (KEYTRUDA) 25 mg/mL chemo injection as directed Intravenous 12/16/2024 Discontinued (Therapy completed)predniSONE 10 mg oral tablet (5 sources)Start: 10-01-2024 End: 60-85-8255ggko 1 tablet by mouth once dailyPrednisone 10 mg tablet Discontinued 10 MG PO Daily October 01, 2024 1:00am November 25, 2024 3:55pmStart: 01-30-2024 End: 33-62-3041ehwe 1 tablet by mouth in the morningpredniSONE (DELTASONE) 20 mg tablet Take 1 tablet (20 mg total) by mouth in the morning for 7 days.7 tablet 01/30/2024 02/06/2024 ActiveStart: 12-26-2023 End: 17-15-8481shfq 1 tablet by mouth in the morningpredniSONE (DELTASONE) 20 mg tablet Indications: Acute recurrent frontal sinusitis Take 1 tablet (20 mg total) by mouth in the morning for 7 days. 7 tablet 0 12/26/2023 01/02/2024 ActiveRSVPreF3 antigen-AS01E, PF, (AREXVY, PF,) 120 mcg/0.5 mL suspension for reconstitution injection (2 sources)Start: 07-25-2023 End: 14-55-7918ZXOSpzA6 antigen-AS01E, PF, (AREXVY, PF,) 120 mcg/0.5 mL suspension for reconstitution injection Inject 0.5 mL into the appropriate muscle once. 07/25/2023 01/30/2024 Discontinued (Discontinued by another clinician)Start: 77-23-4909UNNXfnP5 antigen-AS01E, PF, (AREXVY, PF,) 120 mcg/0.5 mL suspension for reconstitution injection Inject 0.5 mL into the appropriate muscle once. 0 07/25/2023 ActiveSennosides (Senna Laxative) 8.6 mg Tablet (11 sources)Start: 10-24-2023 End: 47-73-5228kfzy 1 tablet by mouth twice daily as needed for constipation Sennosides (Senna Laxative) 8.6 mg Tablet Discontinued 8.6 MG PO Twice daily as needed for Constipation October 24, 2023 1:00am October 01, 2024 10:28am Start: 10-24-2023 End: 89-64-0948iuqz 1 tablet by mouth twice daily as needed for constipation Sennosides (Senna Laxative) 8.6 mg Tablet Discontinued 8.6 MG PO Twice daily as needed for Constipation October 24, 2023 12:00am October 01, 2024 9:28am Start: 95-10-2953yhfe 1 tablet by mouth twice dailySennosides (Senna Laxative) 8.6 mg Tablet Active 8.6 MG PO Twice daily October 24, 2023 1:00amStart: 35-67-6390cogc 1 tablet by mouth twice dailySennosides (Senna Laxative) 8.6 mg Tablet Active 8.6 MG PO Twice daily October 24, 2023 12:00am sulfamethoxazole 800 mg / trimethoprim 160 mg oral tablet (20 sources)Dihydrofolate Reductase Inhibitor Antibacterial, Sulfonamide AntimicrobialStart: 09-19-2023 End: 03-63-7758wssc 1 tablet by mouth twice dailySulfamethoxazole-Trimethoprim (Bactrim Ds) 800-160 mg Tablet Discontinued 1 TAB PO Twice daily September 19, 2023 1:00am October 20, 2023 3:30amStart: 07-31-2023 End: 01-27-9577yetp 1 tablet by mouth twice dailySulfamethoxazole-Trimethoprim (Bactrim Ds) 800-160 mg Tablet Discontinued 1 TAB PO Twice daily July 31, 2023 12:00am September 12, 2023 1:50pm Problems Active Problems Problem ClassificationProblemDateDocumented DateEpisodic/ChronicAcute myocardial infarction (8 sources)Non-ST elevation (NSTEMI) myocardial infarction; Translations: [Myocardial infarction]Onset: 181685-07-9117MnituizKdftsvbg reactions (1 source)Allergy status to other antibiotic agents status; Translations: [ALLERGY STATUS OTH ANTIBIOTIC AGENT]Onset: 13-42-2746MncebkfgKecaclf disorders (2 sources)Anxiety disorder, unspecified; Translations: [Anxiety]Onset: 441021-98-1844QuugroxVotnau of kidney and renal pelvis (20 sources)Clear cell carcinoma of kidney; Translations: [Malignant neoplasm of unspecified kidney, except renal pelvis]Onset: 652683-97-2513Diapqbe Cardiac dysrhythmias (1 source)Tachycardia, unspecified; Translations: [TACHYCARDIA UNSPECIFIED] Onset: 64-97-1725ZszxdpkzUofucjm obstructive pulmonary disease and bronchiectasis (20 sources)Chronic obstructive pulmonary disease with (acute) exacerbation; Translations: [Chronic obstructivepulmonary disease with (acute) lower respiratory infection]Onset: 687817-16-2143IlozozvIswsrjiihm heart failure; nonhypertensive (20 sources)Acute on chronic systolic (congestive) heart failure; Translations: [Acute systolic (congestive) heart failure]Onset: 01-25-2023 Resolved: 99-41-0478PjzjogwIsoxwnvd atherosclerosis and other heart disease (9 sources)Acute coronary syndrome; Translations: [Acute ischemic heart disease, unspecified]Onset: 447861-51-9122TiigzypAdchaezrjf and other anemia (16 sources)Iron deficiency anemia, unspecified; Translations: [Iron deficiency anemia, unspecified]52-06-2526MozpyudlPylqzzplgxds with complications and secondary hypertension (5 sources)Benign hypertensive heart disease; Translations: [Hypertensive heart disease with heart failure]Onset: 086823-95-2165AtlbeuoFfxeutkcvzcbt and screening for infectious disease (2 sources)Contact with or exposure to other viral diseases; Translations: [Exposure to 2018 novel coronavirus]89-73-3252JjwypgmyGcxcfbzkvfw chemotherapy; radiotherapy (20 sources)Patient encounter status; Translations: [Encounter for antineoplastic chemotherapy]24-28-8595AfiisydIkboh aftercare (11 sources)Drug therapy finding; Translations: [Other usp (current) drug therapy]20-74-3975QuljbbliYlvzv aftercare (4 sources)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; Translations: [Long-term (current) use of other medications]62-84-1148ZuifsjbqVnxga diseases of kidney and ureters (12 sources)Renal mass; Translations: [Other specified disorders of kidney and ureter]Onset: 911153-35-7095WlawwzwMhxpy diseases of kidney and ureters (8 sources)Other specified disorders of kidney and ureter; Translations: [Unspecified disorder of kidney and ureter]11-93-1788IjrnlqcYlcbx gastrointestinal disorders (4 sources)Constipation, unspecified; Translations: [Constipation, unspecified] 01-00-2340PsyryppsOeddz liver diseases (15 sources)Enzyme level - finding; Translations: [Elevated transaminase measurement]84-86-2811TmtslkkoSqtco nervous system disorders (17 sources)Pain due to neoplastic disease; Translations: [Neoplasm related pain (acute) (chronic)]Onset: 855750-74-7134VyucobeSkods nervous system disorders (4 sources)Neoplasm related pain (acute) (chronic); Translations: [Neoplasm related pain (acute) (chronic)]29-83-7669IxazefzTbhgb non-traumatic joint disorders (1 source)Arthropathy of multiple joints; Translations: [Arthropathy, unspecified]05-23-5527KhnerfyKzhft non-traumatic joint disorders (1 source)Arthropathy, unspecified; Translations: [Arthropathy, unspecified] Onset: 09-72-6288JilmmhnWlbzw nutritional; endocrine; and metabolic disorders (3 sources)Morbid obesity; Translations: [Morbid (severe) obesity due to excess calories]Onset: 660277-65-3278OnedguiBjwww screening for suspected conditions (not mental disorders or infectious disease) (20 sources)Raised cardiac enzyme or marker; Translations: [Other specified abnormal findings of blood chemistry]71-10-9415OzlcoqdwOpqm-; endo-; and myocarditis; cardiomyopathy (except that caused by tuberculosis or sexually transmitted disease) (20 sources)Cardiomyopathy; Translations: [Other cardiomyopathies]Onset: 479680-98-1916OspwibkYqcjroqsf (except that caused by tuberculosis or sexually transmitted disease) (1 source)Parainfluenza virus pneumonia; Translations: [PARAINFLUENZA VIRUS PNEUMONIA]Onset: 41-50-5409NcywvppmFshrnghi codes; unclassified (1 source)Family history of ischemic heart disease and other diseases of the circulatory system; Translations: [FAM HX ISCHEMIC HRT DZ OTH DZ CIRC]Onset: 68-91-4549OxnfcuwvEiabwerq codes; unclassified (1 source)Family history of diabetes mellitus; Translations: [FAMILY HISTORY OF DIABETES MELLITUS]Onset: 47-06-8213JrnwclxpBryfnkgz codes; unclassified (1 source)Family history of epilepsy and other diseases of the nervous system; Translations: [FAM HX EPILEPSYOTH DZ NERV SYS]Onset: 84-39-1589WwwajyvxSbcnmame codes; unclassified (1 source)Family history of other infectious and parasitic diseases; Translations: [FAM HX OTH INFECTIOUS PARASITIC DZ]Onset: 16-87-5766Alequkff Respiratory failure; insufficiency; arrest (adult) (20 sources)Chronic hypoxemic respiratory failure; Translations: [Chronic respiratory failure with hypoxia]Onset: 01-30-2024 Resolved: 652161-24-6275FthnrdvVlrjphv on above:2 L Oxygen via NC at all times.Septicemia (except in labor) (3 sources)Other specified sepsis; Translations: [OTHER SPECIFIED SEPSIS]Onset: 46-01-4807BtqhgksqUdnik (1 source)Cardiogenic shock; Translations: [CARDIOGENIC SHOCK]Onset: 02-02-2023 EpisodicSkin and subcutaneous tissue infections (2 sources)Cellulitis of left lower limb; Translations: [Cellulitis of left lower limb]Onset: 178674-14-4306HlnkhxlqYxalyphnm-qbfnjzy disorders (1 source)Nicotine dependence, cigarettes, uncomplicated; Translations: [NICOTINE DEPEND CIGARETTES UNCOMP]Onset: 05-25-6254HaowedgEpxbtidaqazy (1 source)Personal history of tuberculosis; Translations: [PERSONAL HISTORY OF TUBERCULOSIS]Onset: 43-94-9283ArqxivzwRlnsidfybgqx (1 source)OTHER ACIDOSIS; Translations: [OTHER ACIDOSIS]Onset: 02-02-2023 Unclassified (1 source)CONTACT W/AND (SUSP) EXPOS COVID-19; Translations: [CONTACT W/AND (SUSP) EXPOS COVID-19]Onset: 76-52-8193Sxfeopwfafbn (1 source)ER f/u [place]vueOnset: 03-27-2025 Past or Other Problems Problem ClassificationProblemDateDocumented DateEpisodic/ChronicAcute and unspecified renal failure (20 sources)Nephrotoxic acute renal failure; Translations: [Other acute kidney failure]Onset: 777322-06-4804YrhihkyqZrrvqtzkhzgqxc/social admission (20 sources)Advance directive discussed with patient; Translations: [Other specified counseling]Onset: 035560-08-2457EkwvrxsoIwufkgbjic and other anemia (20 sources)Iron deficiency anemia; Translations: [Iron deficiency anemia, unspecified]Onset: 657031-65-6539EmwtevysXsxkp and electrolyte disorders (20 sources)Hypo-osmolality and hyponatremia; Translations: [Hyponatremia]Onset: 425292-41-6816QvhbcnuxShml disorders (7 sources)Mood disordersOnset: 01-30-2024 Resolved: Nausea and vomiting (20 sources)Nausea; Translations: [Intractable nausea and vomiting]Onset: 183869-14-4991QthgfbvuOkvlq gastrointestinal disorders (17 sources)Constipation; Translations: [Constipation, unspecified]Onset: 534436-63-3538KflrymclYjfan upper respiratory infections (2 sources)Acute upper respiratory infection, unspecified; Translations: [Acute recurrent frontal sinusitis]Onset: 950528-68-3327PadsyznlHrehskrutfv failure; insufficiency; arrest (adult) (9 sources)Acute respiratory failure with hypoxia; Translations: [Acute respiratory failure with hypercapnia]Onset: 01-25-2023 Resolved: 646926-05-7360FpeuwtsoWtaedsavucih (2 sources)Onset: 12-16-2024 Resolved: Viral infection (9 sources)Other viral agents as the cause of diseases classified elsewhere; Translations: [COVID-19]Onset: 281760-43-8050Igcsgajk Results Test NameValueInterpretationReference RangeFacilityOffice Visiton 07-14-2025 Follow-up [id number] Perla Ibarra 1955 Date Provider Department Center 07/14/2025 RANJAN RYAN Family History Problem Relation Age of Onset Tuberculosis Mother Heart attack Brother Heart failure Maternal Grandmother Heart attack Maternal Grandfather Family Status - Relation Status Age at Mother Father Sister Brother Maternal Grandmother Maternal Grandfather Level of Service:84412 NM OFFICE/OUTPATIENT ESTABLISHED MOD MDM 30 MIN Reason for Visit and Comments: Follow-up [526277] - Patient is here today for a 3 month follow up office visit. Patient would like to talk about the rash on her arms, possible due to her heart medication, and would like to talk about Asprin Coronary Artery Disease [187] Congestive Heart Failure [127] Cardiomyopathy [104] - Nonischemic Hypertension [863006] Pulmonary Hypertension [818] Fatigue [46] - Very fatigue, and thinks she is possible anemicNormalUniversMarion HospitalOffice Visiton 86-27-2409Nmqwdt-up [id number] Perla Ibarra 1955 F Date Provider Department Center 04/14/2025 RANJAN RYAN Family History Problem Relation Age of Onset Tuberculosis Mother Heart attack Brother Heart failure Maternal Grandmother Heart attack Maternal Grandfather Family Status - Relation Status Age at Mother Father Sister Brother Maternal Grandmother Maternal Grandfather Level of Service:11351 NM OFFICE/OUTPATIENT ESTABLISHED MOD MDM 30 [facility] HospitalOffice [facility] 81-82-6499Ktijah-up visit [id number] Perla Ibarra 1955 F Date Provider Department Center 11/04/2024 AMMY ARITA Family History Problem Relation Age of Onset Tuberculosis Mother Heart attack Brother Heart failure Maternal Grandmother Heart attack Maternal Grandfather Family Status - Relation Status Age at Mother Brother Maternal Grandmother Maternal Grandfather Level of Service:97428 NM OFFICE/OUTPATIENT ESTABLISHED LOW MDM 20 [facility] CenterAdrenocorticotropic Hormone PLon 10-01-2024 [address] PL28.6 pg/mLNormal7.2-63.3The [facility] Physician GroupComment on above:Result Comment: ACTH reference interval for samples collected between 7 and 10 AM. Performed at: [facility] [address] [place], [place] [id number] [employer]munition [employer] Laborer: Juan Hendricks PhD, Phone: [phone] PERFORMED BY: [place] [address] PATHOLOGIST SAMPLING EXPERT SHIRA GALLO M.D.Performed By: #### T4F, TSH3, JER, CMP #### [address] #### ACTH #### [facility] ,Adrenocorticotropic hormone (ACTH) measurementOrdered By: Aries Chavez on 87-42-6312Rwczcfjjckyguzknjld Ykrooez59.6 pg/mL7.2-63.3FSheltering Arms HospitalComment on above:ACTH reference interval for samples collected between 7 and10 AM.Performed at: [facility] SomersetI[address] [place] [id number] Director: Juan Hendricks PhD, Phone: [phone] aminotransferase [Enzymatic activity/volume] in Serum or PlasmaOrdered By: Aries Chavez on 74-17-2856FLJ [Catalytic activity/Vol]Alanine aminotransferase [Enzymatic activity/volume] in Serum or Plasma7-[facility] CenterAlbumin [Mass/volume] in Serum or Plasma by Bromocresol green (BCG) dye binding methoOrdered By: Aries Chavez on 61-12-4286Jdbsbwo BCG dye [Mass/Vol]Albumin [Mass/volume] in Serum or Plasma by Bromocresol green (BCG) dye binding metho3.5-5.7FSheltering Arms HospitalAlkaline phosphatase [Enzymatic activity/volume] in Serum or PlasmaOrdered By: Aries Chavez on 32-20-0762LSK [Catalytic activity/Vol]Alkaline phosphatase [Enzymatic activity/volume] in Serum or Jsipbw22-258FqrtukmhtLakehealth Tripoint Medical CenterAspartate aminotransferase [Enzymatic activity/volume] in Serum or Plasma Ordered By: Aries Chavez on 85-33-1365VXB [Catalytic activity/Vol]Aspartate aminotransferase [Enzymatic activity/volume] in Serum or Fotpzr23-68QfpfjgfsdLakehealth Tripoint Medical CenterBasophils Auto (Bld) [#/Vol]Ordered By: Aries Chavez on 89-82-3149Mowfpbjem (Bld) [#/Vol]Automated basophil count0.0-0.2FSheltering Arms HospitalBasophils/100 WBC Auto (Bld)Ordered By: Aries Chavez on 13-91-2568Fobuwopex/100 WBC (Bld)Automated basophil %.[facility] CenterBilirubin.total [Mass/volume] in Serum or PlasmaOrdered By: Aries Chavez on 75-03-7747Fgwgxoeaj [Mass/Vol]Bilirubin.total [Mass/volume] in Serum or Plasma0.3-1.0[facility] CenterCBC W Auto Differential panel (Bld)on 98-63-2243Qnnhojxih (Bld) [#/Vol]0.1 10*3/uL0.0 - 0.2 10*3/uLNOMS HealthcareBasophils/100 WBC Manual cnt (Syn fld)2 %.[facility] Eosinophils (Bld) [#/Vol]0.9 10*3/uLHigh0.0 - 0.45 10*3/uLNOMS Healthcare Eosinophils/100 WBC Manual cnt (Syn fld)12.6 %.[facility] HealthcareErythrocyte distribution width (RBC) [Ratio]13.2 %11.9 - 15.3 %[facility] HealthcareHematocrit (Bld) [Volume fraction]35.5 %34.0 - 46.4 %[facility] HealthcareHemoglobin (Bld) [Mass/Vol]11.7 g/dLLow11.8 - 15.4 g/dLMOUNTAIN VIEW HOSPITAL HealthcareInterpretation and review of laboratory resultsAbnormalMOUNTAIN VIEW HOSPITAL HealthcareLymphocytes (Bld) [#/Vol]1.1 10*3/uL 1.00 - 4.8 10*3/uLNOMS HealthcareLymphocytes/100 WBC Manual cnt (Syn fld)15.3 %. [facility] CenterH (RBC) [Entitic mass]28.9 pg24.7 - 34.3 pgCapital Region Medical CenterHC (RBC) [Mass/Vol]32.8 g/dL32.0 - 35.0 g/dLCapital Region Medical CenterV (RBC) [Entitic vol] 88 fL80 - 100 fLMOUNTAIN VIEW HOSPITAL HealthcareMonocytes (Bld) [#/Vol]0.7 10*3/uL0.0 - 0.8 10*3/uLNOMS HealthcareMonocytes+Macrophages/100 WBC Manual cnt (Syn fld)10.2 %. [facility] HealthcareNeutrophils (Bld) [#/Vol]4.4 10*3/uL1.8 - 7.7 10*3/uLNOMS HealthcareNeutrophils/100 WBC Manual cnt (Syn fld)59.9 %.[facility] HealthcareNRBC0.1 /100{WBC}0 - 0.5 /100{WBC}[facility] HealthcarePlatelet mean volume (Bld) [Entitic vol]8.8 fL6.3 - 10.7 fLMOUNTAIN VIEW HOSPITAL HealthcarePlatelets (Bld) [#/Vol]261 10*3/uL150 - 450 10*3/uLNOMS HealthcareRBC LM.HPF (Urine sed) [#/Area]4.04 10*6/uL3.60 - 5.00 10*6/uLNOMS HealthcareWBC (Bld) [#/Vol]7.3 10*3/uL3.8 - 11.6 10*3/uLNOMS HealthcareWBC LM.HPF (Urine sed) [#/Area]7.3 10*3/uL3.8 - 11.6 10*3/uLNOMS HealthcareNOMS HealthcareCalcium [Mass/volume] in Serum or PlasmaOrdered By: Aries Chavez on 21-05-6914Twigvhm [Mass/Vol]Calcium [Mass/volume] in Serum or Plasma8.6-10.3FSheltering Arms HospitalCarbon dioxide, total [Moles/volume] in Serum or PlasmaOrdered By: Aries Chavez on 00-72-5717GK3 [Moles/Vol]Carbon dioxide, total [Moles/volume] in Serum or Kuhgtw68.0-31.0 [facility] CenterChloride [Moles/volume] in Serum or Plasma Ordered By: Aries Chavez on 65-85-0134Fsqwltvw [Moles/Vol]Chloride [Moles/volume] in Serum or Srwqra67-697NoxtphmtwLakehealth Tripoint Medical CenterComplete Blood Count Auto Diffon 44-42-3404Hkvzngqbt (Bld) [#/Vol]0.1 10*3/uLNormal 0.0-0.2The [facility] Physician GroupComment on above:Result Comment: PERFORMED BY: [place] [address] PATHOLOGIST SAMPLING EXPERT SHIRA GALLO M.D.Performed By: #### CBC, CMP #### [place] [address] USABasophils/100 WBC (Bld)2.0 %Normal.The [facility] Physician GroupComment on above:Performed By: #### CBC, CMP #### [facility] [address] [place] [address] USAEosinophils (Bld) [#/Vol]0.9 10*3/uLHigh0.0-0.45The [facility] Physician GroupComment on above:Performed By: #### CBC, CMP #### [place] [address] USAEosinophils/100 WBC (Bld)12.6 %Normal.The [facility] Physician GroupComment on above:Performed By: #### CBC, CMP #### [place] [address] USAErythrocyte distribution width (RBC) [Ratio]13.2 %Normal 11.9-15.3The [facility] Physician GroupComment on above:Performed By: #### CBC, CMP #### [place] [address] USAHematocrit (Bld) [Volume fraction]35.5 %Hqeaev01.0-46.4The [facility] Physician GroupComment on above:Performed By: #### CBC, CMP #### [place] [address] USAHemoglobin (Bld) [Mass/Vol]11.7 g/dLLow11.8-15.4The [facility] Physician GroupComment on above:Performed By: #### CBC, CMP #### [place] [address] USALymphocytes (Bld) [#/Vol]1.1 10*3/uLNormal1.00-4.8The [facility] Physician GroupComment on above:Performed By: #### CBC, CMP #### [place] [address] USALymphocytes/100 WBC (Bld)15.3 %Normal.The [facility] Physician GroupComment on above:Performed By: #### CBC, CMP #### [place] [address] USAMCH (RBC) [Entitic mass]28.9 bfMpatsu36.7-34.3The [facility] Physician GroupComment on above:Performed By: #### CBC, CMP #### [place] [address] USAMCV (RBC) [Entitic vol]88.0 oOQhxdnd43-420Kox [facility] Physician GroupComment on above:Performed By: #### CBC, CMP #### [place] [address] USAMean Corpuscular HGB Conc32.8 g/zMNlhbqn39.0-35.0The [facility] Physician GroupComment on above:Performed By: #### CBC, CMP #### [address] [place] [address] USAMonocytes (Bld) [#/Vol]0.7 10*3/uLNormal0.0-0.8The [facility] Physician GroupComment on above:Performed By: #### CBC, CMP #### [facility] [address] [place] [address] USAMonocytes/100 WBC (Bld)10.2 %Normal.The [facility] Physician GroupComment on above:Performed By: #### CBC, CMP #### [facility] [address] [place] [address] USANeutrophils (Bld) [#/Vol]4.4 10*3/uLNormal1.8-7.7The [facility] Physician GroupComment on above:Performed By: #### CBC, CMP #### [place] [address] USANeutrophils/100 WBC (Bld)59.9 %Normal.The [facility] Physician GroupComment on above:Performed By: #### CBC, CMP #### [place] [address] USANRBC%0.1 /100{WBC}Normal0-0.5The [facility] Comment on above:Performed By: #### CBC, CMP #### [place] [address] USAPlatelet mean volume (Bld) [Entitic vol]8.8 fLNormal 6.3-10.7The [facility] Physician GroupComment on above:Performed By: #### CBC, CMP #### [place] [address] USAPlatelets (Bld) [#/Vol]261 10*3/bTVpgfvr350-462Zdz [facility] Physician GroupComment on above:Performed By: #### CBC, CMP #### [place] [address] USARBC (Bld) [#/Vol]4.04 10*6/uLNormal3.60-5.00The [facility] Physician GroupComment on above:Performed By: #### CBC, CMP #### [place] [address] USAWBC (Bld) [#/Vol]7.3 10*3/uLNormal3.8-11.6The [facility] Physician GroupComment on above:Performed By: #### CBC, CMP #### [address]Comprehensive Metabolic Panelon 75-11-0864Olzzken [Mass/Vol]3.6 g/dLNormal3.5-5.7The [facility] Physician GroupComment on above: Performed By: #### T4F, TSH3, JER, CMP #### [address] #### ACTH #### [facility] ,Albumin/Globulin [Mass ratio]1.0 {ratio}NormalThe [facility] Group Comment on above:Performed By: #### T4F, TSH3, JER, CMP #### [address] #### ACTH #### [facility] ,ALP [Catalytic activity/Vol]78 U/LNtulra97-128Hce [facility] Comment on above:Performed By: #### T4F, TSH3, JER, CMP #### [address] #### ACTH #### [facility] ,ALT [Catalytic activity/Vol]10 U/LNormal7-52The [facility] Comment on above:Performed By: #### T4F, TSH3, JER, CMP #### [place] [address] [place] #### ACTH #### [facility] ,Anion gap [Moles/Vol]8.7 mmol/LNormal6.0-15.0The [facility] Comment on above:Performed By: #### T4F, TSH3, JER, CMP #### [address] #### ACTH #### [facility] ,AST [Catalytic activity/Vol]17 U/UVkdqkv96-74Wcv [facility] Comment on above:Performed By: #### T4F, TSH3, JER, CMP #### [facility] [address] [place] [address] #### ACTH #### [facility] ,Bilirubin [Mass/Vol]0.5 mg/dLNormal0.3-1.0The [facility] Physician GroupComment on above:Performed By: #### T4F, TSH3, JER, CMP #### [facility] [address] [place] [address] #### ACTH #### [facility] ,Calcium [Mass/Vol]9.0 mg/dLNormal8.6-10.3The [facility] Physician GroupComment on above:Performed By: #### T4F, TSH3, JER, CMP #### [address] #### ACTH #### [facility] ,Chloride [Moles/Vol]98 mmol/OBckxsg91-267Jch [facility] Physician GroupComment on above:Performed By: #### T4F, TSH3, JER, CMP #### [address] #### ACTH #### [facility] ,CO2 [Moles/Vol]28.4 mmol/BYqexfz76.0-31.0The [facility] Physician GroupComment on above:Performed By: #### T4F, TSH3, JER, CMP #### [facility] [address] [place] [address] [place] #### ACTH #### [facility] ,Creatinine [Mass/Vol]0.95 mg/dLNormal0.60-1.20The [facility] Comment on above:Performed By: #### T4F, TSH3, JER, CMP #### [place] [address] [place] #### ACTH #### [facility] ,Creatinine Clr Calc Qewrdlld48.44NoAtrium Health Physician GroupComment on above:Performed By: #### T4F, TSH3, JER, CMP #### [place] [address] [place] #### ACTH #### [facility] ,GFR/1.73 sq M.predicted MDRD (S/P/Bld) [Vol rate/Area]mL/min/{1.73_m2}NormalThe [facility] Physician GroupComment on above:Performed By: #### T4F, TSH3, JER, CMP #### [place] [address] [place] #### ACTH #### [facility] ,Globulin (S) [Mass/Vol]3.5 g/dLNoAtrium Health Physician GroupComment on above:Performed By: #### T4F, TSH3, JER, CMP #### [place] [address] [place] #### ACTH #### [facility] ,Glucose [Mass/Vol]92 mg/gJGvhcln76-555Uuv [facility] Physician GroupComment on above:Result Comment: Random Glucose Reference Range is dependent on time and content of last meal. Glucose of more than 200 mg/dL in a nonstressed, ambulatory subject supports the diagnosis of Diabetes Mellitus. ADA recommended reference rangePerformed By: #### T4F, TSH3, JER, CMP #### [place] [address] [place] #### ACTH #### [facility] ,Potassium [Moles/Vol]4.1 mmol/LNormal3.5-5.1The [facility] Comment on above:Performed By: #### T4F, TSH3, JER, CMP #### [place] [address] [place] #### ACTH #### [facility] ,Protein [Mass/Vol]7.1 g/dLNormal6.4-8.9The [facility] Physician GroupComment on above:Performed By: #### T4F, TSH3, JER, CMP #### [facility] [address] [place] [address] #### ACTH #### [facility] ,Sodium [Moles/Vol]131 mmol/YJkb771-620Hnj [facility] Physician GroupComment on above:Performed By: #### T4F, TSH3, JER, CMP #### [place] [address] [place] #### ACTH #### [facility] ,Urea nitrogen [Mass/Vol]18 mg/dLNormal7-25The [facility] Physician GroupComment on above:Performed By: #### T4F, TSH3, JER, CMP #### [place] [address] [place] #### ACTH #### [facility] ,Cortisolon 82-51-7563Bdjvulyt32.0 ug/dLNoAtrium Health Physician Group Comment on above:Result Comment: Reference range: AM 6 - 24 ug/dl PM <10 ug/dl [facility] Laboratory lamp shade assembler and method: AMRITA UNICEL DXI, POLYCLONAL ANTIBODY CORTISOL ASSAY. PERFORMED BY: [place] [address] PATHOLOGIST SAMPLING EXPERT SHIRA GALLO M.D.Performed By: #### T4F, TSH3, JER, CMP #### [place] [address] [place] #### ACTH #### [facility] ,Cortisol [Mass/volume] in Serum or PlasmaOrdered By: Aries Chavez on 02-49-6875Svixhbaa [Mass/Vol]Random cortisol measurementLakehealth Tripoint Medical CenterComment on above:[facility] Laboratory lamp shade assembler and method:AMRITA UNICEL DXI, POLYCLONAL ANTIBODY CORTISOL ASSAY.Reference range: AM 6 - 24 ug/dl PM <10 ug/dlCreatinine [Mass/volume] in Serum or PlasmaOrdered By: Aries Chavez on 89-69-7728Teglhcahcv [Mass/Vol]Creatinine [Mass/volume] in Serum or Plasma0.60-1.20[facility] Medical CenterEosinophils Auto (Bld) [#/Vol]Ordered By: Aries Chavez on 14-30-6333Znfgcxlfjcz (Bld) [#/Vol]Automated eosinophil countHigh0.0-0.45[facility] Eosinophils/100 WBC Auto (Bld)Ordered By: Aries Chavez on 10-01-2024 Eosinophils/100 WBC (Bld)Automated eosinophil %.[facility] Medical CenterErythrocyte distribution width Auto (RBC) [Ratio]Ordered By: Aries Chavez on 73-55-4741Pxfhxyilxzp distribution width (RBC) [Ratio]Erythrocyte distribution width [Ratio] by Automated count11.9-15.3FSheltering Arms HospitalFree T4 (Free Thyroxine)on 21-09-7732Ufkc T4 [Mass/Vol]0.45 ng/dLLow 0.61-1.12The [facility] Physician GroupComment on above:Performed By: #### T4F, TSH3, JER, CMP #### [facility] [address] #### ACTH #### [facility] ,Globulin Calc (S) [Mass/Vol]Ordered By: Aries Chavez on 66-79-9224Ehnfmiyw (S) [Mass/Vol]Serum globulin measurement by calculation (mass/volume)[facility] CenterGlucose [Mass/volume] in Serum or PlasmaOrdered By: Aries Chavez on 86-83-0346Qvhhyfg [Mass/Vol]Glucose [Mass/volume] in Serum or Fknove37-274AjttbsyciLakehealth Tripoint Medical CenterComment on above:ADA recommended reference rangeRandom Glucose Reference Range is dependent on time and content of last meal. Glucose of more than 200 mg/dL in a nonstressed, ambulatory subject supports the diagnosisof Diabetes Mellitus.Hematocrit Auto (Bld) [Volume fraction]Ordered By: Aries Chavez on 47-43-9344Cxsfrmeykj (Bld) [Volume fraction]Hematocrit [Volume Fraction] of Blood by Automated count34.0-46.4 [facility] CenterHemoglobin [Mass/volume] in BloodOrdered By: Aries Chavez on 97-16-6174Zelkmjgchl (Bld) [Mass/Vol]Hemoglobin [Mass/volume] in BjhzzSuw36.8-15.4FSheltering Arms HospitalLeukocytes [#/volume] corrected for nucleated erythrocytes in Blood by Automated coun Ordered By: Aries Chavez on 96-04-5718WSN corrected for nucl RBC Auto (Bld) [#/Vol]Leukocytes [#/volume] corrected for nucleated erythrocytes in Blood by Automated coun3.8-11.6FSheltering Arms HospitalLymphocytes Auto (Bld) [#/Vol]Ordered By: Aries Chavez on 79-65-9653Tflnhuevlgv (Bld) [#/Vol] Lymphocytes [#/volume] in Blood by Automated count1.00-4.8[facility] Medical CenterLymphocytes/100 WBC Auto (Bld)Ordered By: Aries Chavez on 80-45-5640Vjezirsjfkn/100 WBC (Bld)Lymphocytes/100 leukocytes in Blood by Automated count.[facility] Medical CenterMCH Auto (RBC) [Entitic mass] Ordered By: Aries Chavez on 00-28-4276PPC (RBC) [Entitic mass]MCH [Entitic mass] by Automated count24.7-34.3FSheltering Arms HospitalMCHC Auto (RBC) [Mass/Vol]Ordered By: Aries Chavez on 68-37-7892AWMM (RBC) [Mass/Vol] MCHC [Mass/volume] by Automated count32.0-35.0[facility] MCV Auto (RBC) [Entitic vol]Ordered By: Aries Chavez on 82-07-3843GES (RBC) [Entitic vol]MCV [Entitic volume] by Automated -203TurrucatvLakehealth Tripoint Medical CenterMonocytes Auto (Bld) [#/Vol]Ordered By: Aries Chavez on 11-58-5052Cztceofjp (Bld) [#/Vol]Automated blood monocyte count0.0-0.8[facility] Medical CenterMonocytes/100 WBC Auto (Bld)Ordered By: Aries Chavez on 29-04-6709Gjrrowugb/100 WBC (Bld)Automated monocyte %.[facility] Medical CenterNeutrophils Auto (Bld) [#/Vol]Ordered By: Aries Chavez on 48-37-6132Cwzcmoeknbd (Bld) [#/Vol]Neutrophils [#/volume] in Blood by Automated count1.8-7.7FSheltering Arms HospitalNeutrophils/100 WBC Auto (Bld) Ordered By: Aries Chavez on 90-15-3302Vuljrohnnyy/100 WBC (Bld)Automated neutrophil %.[facility] CenterNo Panel InformationOrdered By: Aries Chavez on 03-43-7460Rqkqwilfn GFR (CKD-EPI)> 60.0 mL/MinLakehealth Tripoint Medical CenterPharmacy Creatinine Clearance (Chem61.44[facility] Medical CenterNucleated erythrocytes [Presence] in Blood by Automated countOrdered By: Aries Chavez on 28-03-0545Wqywyncgm RBC Auto Ql (Bld) Nucleated erythrocytes [Presence] in Blood by Automated count0-0.5FSheltering Arms HospitalPlatelet mean volume Auto (Bld) [Entitic vol]Ordered By: Aries Chavez on 83-11-5288Oewjxlwy mean volume (Bld) [Entitic vol]Platelet mean volume [Entitic volume] in Blood by Automated count6.3-10.7FSheltering Arms HospitalPlatelets Auto (Bld) [#/Vol]Ordered By: Aries Chavez on 08-89-1694Nfgvgannc (Bld) [#/Vol]Platelets [#/volume] in Blood by Automated ufauv324-522IglzdfnobLakehealth Tripoint Medical CenterPotassium [Moles/volume] in Serum or PlasmaOrdered By: Aries Chavez on 05-36-9143Emxnapaei [Moles/Vol] Potassium [Moles/volume] in Serum or Plasma3.5-5.1FSheltering Arms HospitalProtein [Mass/volume] in Serum or PlasmaOrdered By: Aries Chavez on 65-51-4890Llifxet [Mass/Vol]Protein [Mass/volume] in Serum or Plasma6.4-8.9 [facility] CenterRBC Auto (Bld) [#/Vol]Ordered By: Aries Chavez on 13-91-8692TVN (Bld) [#/Vol]Erythrocytes [#/volume] in Blood by Automated count3.60-5.00[facility] Centererum or plasma albumin/globulin mass ratioOrdered By: Aries Chavez on 10-01-2024 Albumin/Globulin [Mass ratio]Serum or plasma albumin/globulin mass ratio [facility] Centererum or plasma anion gap determinationOrdered By: Aries Chavez on 91-35-7746Gzcwx gap [Moles/Vol]Serum or plasma anion gap determination6.0-15.0[facility] Centerodium [Moles/volume] in Serum or PlasmaOrdered By: Aries Chavez on 84-88-2902Ncjrtp [Moles/Vol] Sodium [Moles/volume] in Serum or VjorrqXxn174-832PqgqauaupLakehealth Tripoint Medical CenterThyroid Stimulating Hormoneon 60-83-9267CUH Qn45.50 m[IU]/LHigh0.45-5.33 [facility] Physician GroupComment on above:Performed By: #### T4F, TSH3, JER, CMP #### [address] #### ACTH #### [facility] ,Thyrotropin [Units/volume] in Serum or PlasmaOrdered By: Aries Chavez on 44-01-8773TPZ QnThyrotropin [Units/volume] in Serum or PlasmaHigh0.45-5.33 [facility] CenterThyroxine (T4) free [Mass/volume] in Serum or PlasmaOrdered By: Aries Chavez on 57-30-2517Oygg T4 [Mass/Vol]Thyroxine (T4) free [Mass/volume] in Serum or PlasmaLow0.61-1.12[facility] CenterUrea nitrogen [Mass/volume] in Serum or PlasmaOrdered By: Aries Chavez on 71-58-3918Nswh nitrogen [Mass/Vol]Urea nitrogen [Mass/volume] in Serum or Plasma7-25[facility] Medical CenterWBC Auto (Bld) [#/Vol] Ordered By: Aries Chavez on 79-24-6114SDC (Bld) [#/Vol]Leukocytes [#/volume] in Blood by Automated count3.8-11.6FSheltering Arms Hospital ADRENOCORTICOTROPIC HORMONE PLon 74-21-0304NIDIREGHSANTFVQVFNI HORMONE PL51.6 pg/mL7.2 - 63.3 pg/mLNOMS HealthcareComment on above:ACTH reference interval for samples collected between 7 and 10 AM. Performed at: [address] [id number] Ammunition [employer] Laborer: Juan Hendricks PhD, Phone: [phone] NOMS HealthcareAdrenocorticotropic Hormone PLon 28-49-9807Cjurugurrlanpdzonbd Hormone PL51.6 pg/mLNormal7.2-63.3[facility] Physician GroupComment on above: Result Comment: ACTH reference interval for samples collected between 7 and 10 AM. Performed at: [address] [id number] [employer] Laborer: Juan Hendricks PhD, Phone: [phone] PERFORMED BY: [place] [address] PATHOLOGIST SAMPLING EXPERT STEFANO HOLT M.D.Performed By: #### CBC, CMP #### [facility] [address] [place], [place] [address]Alanine aminotransferase [Enzymatic activity/volume] in Serum or PlasmaOrdered By: Aries Chavez on 58-74-8970EEC [Catalytic activity/Vol]11 U/LNormalLakehealth Tripoint Medical CenterComment on above: Performed By: #### T4F, JER, CMP, TSH3 #### [facility] [address] [place] [address] [place] #### ACTH #### [facility] ,Albumin [Mass/volume] in Serum or Plasma by Bromocresol green (BCG) dye binding methoOrdered By: Aries Chavez on 85-67-6617Cjyksrt BCG dye [Mass/Vol]3.7 g/dL3.5-5.7FSheltering Arms HospitalAlkaline phosphatase [Enzymatic activity/volume] in Serum or PlasmaOrdered By: Aries Chavez on 06-18-2024 ALP [Catalytic activity/Vol]76 U/FVifjjr22-139AqvwqhqzpLakehealth Tripoint Medical Center Comment on above:Performed By: #### T4F, JER, CMP, TSH3 #### [facility] [address] [place] [address] [place] #### ACTH #### [facility] ,Aspartate aminotransferase [Enzymatic activity/volume] in Serum or Plasma Ordered By: Aries Chavez on 94-12-0538TLB [Catalytic activity/Vol]19 U/L Ozftnb90-68IuqarpjwhLakehealth Tripoint Medical CenterComment on above:Performed By: #### T4F, JER, CMP, TSH3 #### [place] [address] [place] #### ACTH #### [facility] ,Automated basophil %Ordered By: Aries Chavez on 59-07-5334Rtojthiao/100 WBC (Bld)1.4 %Normal.[facility] Medical CenterComment on above:Performed By: #### T4F, TSH3, JER, CMP #### [place] [address] [place] #### ACTH #### [facility] ,Automated basophil countOrdered By: Aries Chavez on 21-32-7992Qzrvgpkvj (Bld) [#/Vol]0.1 10*3/uLNormal0.0-0.2FSheltering Arms HospitalComment on above:Result Comment: PERFORMED BY: [place] [address] PATHOLOGIST SAMPLING EXPERT STEFANO HOLT M.D.Performed By: #### T4F, TSH3, JER, CMP #### [place] [address] [place] #### ACTH #### [facility] ,Automated blood monocyte countOrdered By: Aries Chavez on 06-18-2024 Monocytes (Bld) [#/Vol]0.8 10*3/uLNormal0.0-0.8[facility] Comment on above:Performed By: #### T4F, TSH3, JER, CMP #### [facility] [address] [place] [address] #### ACTH #### [facility] ,Automated eosinophil %Ordered By: Aries Chavez on 06-18-2024 Eosinophils/100 WBC (Bld)6.1 %Normal.[facility] Medical CenterComment on above:Performed By: #### T4F, TSH3, JER, CMP #### [place] [address] [place] #### ACTH #### [facility] ,Automated eosinophil countOrdered By: Aries Chavez on 06-18-2024 Eosinophils (Bld) [#/Vol]0.5 10*3/uLHigh0.0-0.45[facility] Medical CenterComment on above:Performed By: #### T4F, TSH3, JER, CMP #### [facility] [address] [place] [address] [place] #### ACTH #### [facility] ,Automated monocyte %Ordered By: Aries Chavez on 22-74-8575Tuqmvlruf/100 WBC (Bld)9.1 %Normal.[facility] Medical CenterComment on above:Performed By: #### T4F, TSH3, JER, CMP #### [place] [address] [place] #### ACTH #### [facility] ,Automated neutrophil %Ordered By: Aries Chavez on 06-18-2024 Neutrophils/100 WBC (Bld)70.9 %Normal.[facility] Medical CenterComment on above:Performed By: #### T4F, TSH3, JER, CMP #### [facility] [address] [place] [address] [place] #### ACTH #### [facility] ,Bilirubin.total [Mass/volume] in Serum or PlasmaOrdered By: Aries Chavez on 50-04-3485Nwwwrxtsw [Mass/Vol]0.6 mg/dLNormal0.3-1.0[facility] Medical CenterComment on above:Performed By: #### T4F, JER, CMP, TSH3 #### [facility] [address] #### ACTH #### [facility] ,CBC W Auto Differential panel (Bld)on 51-80-9883Hguzmwqhx (Bld) [#/Vol]0.1 10*3/uL0.0 - 0.2 10*3/uLNOMS HealthcareBasophils/100 WBC Manual cnt (Syn fld)1.4 %.[facility] HealthcareEosinophils (Bld) [#/Vol]0.5 10*3/uLHigh0.0 - 0.45 10*3/uLNOMS HealthcareEosinophils/100 WBC Manual cnt (Syn fld)6.1 %.[facility] Erythrocyte distribution width (RBC) [Ratio]13.3 %11.9 - 15.3 %[facility] Hematocrit (Bld) [Volume fraction]36.5 %34.0 - 46.4 %[facility] CenterHemoglobin (Bld) [Mass/Vol]12.2 g/dL11.8 - 15.4 g/dLMOUNTAIN VIEW HOSPITAL HealthcareInterpretation and review of laboratory resultsAbnormalMOUNTAIN VIEW HOSPITAL HealthcareLymphocytes (Bld) [#/Vol]1.1 10*3/uL1.00 - 4.8 10*3/uLNOMS HealthcareLymphocytes/100 WBC Manual cnt (Syn fld) 12.5 %.[facility] CenterH (RBC) [Entitic mass]29.6 pg24.7 - 34.3 pgCapital Region Medical CenterHC (RBC) [Mass/Vol]33.4 g/dL32.0 - 35.0 g/dLCapital Region Medical CenterV (RBC) [Entitic vol]88.8 fL80 - 100 fLNOMS HealthcareMonocytes (Bld) [#/Vol]0.8 10*3/uL0.0 - 0.8 10*3/uLNOMS HealthcareMonocytes+Macrophages/100 WBC Manual cnt (Syn fld)9.1 %.[facility]OMS HealthcareNeutrophils (Bld) [#/Vol]6.0 10*3/uL1.8 - 7.7 10*3/uLNOMS HealthcareNeutrophils/100 WBC Manual cnt (Syn fld)70.9 %.NOMS HealthcareNRBC0.0 /100{WBC}0 - 0.5 /100{WBC}NOMS HealthcarePlatelet mean volume (Bld) [Entitic vol]7.1 fL6.3 - 10.7 fLNOMS HealthcarePlatelets (Bld) [#/Vol]342 10*3/uL150 - 450 10*3/uLNOMS HealthcareRBC LM.HPF (Urine sed) [#/Area]4.11 /[HPF]3.60 - 5.00NOMS HealthcareWBC (Bld) [#/Vol]8.4 10*3/uL3.8 - 11.6 10*3/uL NOMS HealthcareWBC LM.HPF (Urine sed) [#/Area]8.4 10*3/uL3.8 - 11.6 10*3/uLNOMS HealthcareNOMS HealthcareCalcium [Mass/volume] in Serum or PlasmaOrdered By: Aries Chavez on 70-56-9211Jcprzsw [Mass/Vol]9.1 mg/dLNormal8.6-10.3 [facility] CenterComment on above:Performed By: #### T4F, JER, CMP, TSH3 #### [facility] [address] [place], [place] [address] [place] #### ACTH #### [facility] ,Carbon dioxide, total [Moles/volume] in Serum or PlasmaOrdered By: Aries Chavez on 94-39-8879WR8 [Moles/Vol]29.4 mmol/JFhfteo56.0-31.0[facility] Medical CenterComment on above:Performed By: #### T4F, JER, CMP, TSH3 #### [facility] [address] [place] [address] [place] #### ACTH #### [facility] ,Chloride [Moles/volume] in Serum or PlasmaOrdered By: Aries Chavez on 60-02-6244Zmvfpqeo [Moles/Vol]94 mmol/UYse47-567TlutbodvuLakehealth Tripoint Medical CenterComment on above:Performed By: #### T4F, JER, CMP, TSH3 #### [facility] [address] [place] [address] [place] #### ACTH #### [facility] ,Complete Blood Count Auto Diffon 58-16-3037Vsgo Corpuscular HGB Conc33.4 g/dL Lnijxf55.0-35.0[facility] Physician GroupComment on above:Performed By: #### T4F, TSH3, JER, CMP #### [facility] [address] [place] [address] #### ACTH #### [facility] ,NRBC%0.0 /100{WBC}Normal0-0.5[facility] Physician Laird HospitalComment on above: Performed By: #### T4F, TSH3, JER, CMP #### [facility] [address] [place] [address] [place] #### ACTH #### [facility] ,Comprehensive Metabolic Panelon 81-09-2536Blmxnjo [Mass/Vol]3.7 g/dLNormal 3.5-5.7[facility] Physician GroupComment on above:Performed By: #### T4F, JER, CMP, TSH3 #### [facility] [address] [place] [address] [place] #### ACTH #### [facility] ,Creatinine Clr Calc Peabrqbv37.15NormalThe [facility] Physician GroupComment on above:Performed By: #### T4F, JER, CMP, TSH3 #### [facility] [address] [place] [address] [place] #### ACTH #### [facility] ,GFR/1.73 sq M.predicted MDRD (S/P/Bld) [Vol rate/Area]mL/min/{1.73_m2}NormalThe [facility]ly [facility] Physician GroupComment on above:Performed By: #### T4F, JER, CMP, TSH3 #### [place] [address] [place] #### ACTH #### [facility] ,Cortisolon 05-83-7906Vetdzkir11.8 ug/dLNormalThe [facility] Group Comment on above:Result Comment: Reference range: AM 6 - 24 ug/dl PM <10 ug/dl [facility] Laboratory lamp shade assembler and method: AMRITA UNICEL DXI, POLYCLONAL ANTIBODY CORTISOL ASSAY. PERFORMED BY: [place] [address] PATHOLOGIST SAMPLING EXPERT STEFANO HOLT M.D.Performed By: #### CBC, CMP #### [place] [address] USACreatinine [Mass/volume] in Serum or PlasmaOrdered By: Aries Chavez on 22-66-7589Aygpyjlkcb [Mass/Vol]0.83 mg/dLNormal0.60-1.20 [facility] CenterComment on above:Performed By: #### T4F, JER, CMP, TSH3 #### [address] #### ACTH #### [facility] ,Erythrocyte distribution width [Ratio] by Automated countOrdered By: Aries Chavez on 22-60-0918Irrmoawlium distribution width (RBC) [Ratio]13.3 %Normal 11.9-15.3FSheltering Arms HospitalComment on above:Performed By: #### T4F, TSH3, JER, CMP #### [place] [address] [place] #### ACTH #### [facility] ,Erythrocytes [#/volume] in Blood by Automated countOrdered By: Aries Chavez on 73-62-9167NZO (Bld) [#/Vol]4.11 10*6/uLNormal3.60-5.00[facility] Medical CenterComment on above:Performed By: #### T4F, TSH3, JER, CMP #### [place] [address] [place] #### ACTH #### [facility] ,Glucose [Mass/volume] in Serum or PlasmaOrdered By: Aries Chavez on 95-10-5345Dirmgjh [Mass/Vol]93 mg/oGRaivaj35-547YaswfmtgbLakehealth Tripoint Medical CenterComment on above:ADA recommended reference rangeRandom Glucose Reference Range is dependent on time and content of last meal. Glucose of more than 200 mg/dL in a nonstressed, ambulatory subject supports the diagnosisof Diabetes Mellitus.Result Comment: Random Glucose Reference Range is dependent on time and content of last meal. Glucose of more than 200 mg/dL in a nonstressed, ambulatory subject supports the diagnosis of Diabetes Mellitus. ADA recommended reference rangePerformed By: #### T4F, JER, CMP, TSH3 #### [place] [address] [place] #### ACTH #### [facility] ,Hematocrit [Volume Fraction] of Blood by Automated countOrdered By: Aries Chavez on 66-98-4907Qhfjroyuzj (Bld) [Volume fraction]36.5 %Dhuybx69.0-46.4 [facility] CenterComment on above:Performed By: #### T4F, TSH3, JER, CMP #### [place] [address] [place] #### ACTH #### [facility] ,Hemoglobin [Mass/volume] in BloodOrdered By: Aries Chavez on 06-18-2024 Hemoglobin (Bld) [Mass/Vol]12.2 g/rDNhhnyk09.8-15.4FSheltering Arms HospitalComment on above:Performed By: #### T4F, TSH3, JER, CMP #### [place] [address] [place] #### ACTH #### [facility] ,Leukocytes [#/volume] corrected for nucleated erythrocytes in Blood by Automated counOrdered By: Aries Chavez on 49-66-2590JDZ corrected for nucl RBC Auto (Bld) [#/Vol]8.4 10*3/uL3.8-11.6FSheltering Arms Hospital Leukocytes [#/volume] in Blood by Automated countOrdered By: Aries Chavez on 73-10-4549RNA (Bld) [#/Vol]8.4 10*3/uLNormal3.8-11.6FSheltering Arms HospitalComment on above:Performed By: #### T4F, TSH3, JER, CMP #### [facility] [address] [place] [address] [place] #### ACTH #### [facility] ,Lymphocytes [#/volume] in Blood by Automated countOrdered By: Aries Chavez on 09-60-2375Ttkmhzfjjoa (Bld) [#/Vol]1.1 10*3/uLNormal1.00-4.8[facility] Medical CenterComment on above:Performed By: #### T4F, TSH3, JER, CMP #### [facility] [address] [place] [address] [place] #### ACTH #### [facility] ,Lymphocytes/100 leukocytes in Blood by Automated countOrdered By: Aries Chavez on 18-06-0210Fqmavbsbajz/100 WBC (Bld)12.5 %Normal.[facility] Medical CenterComment on above:Performed By: #### T4F, TSH3, JER, CMP #### [facility] [address] [place] [address] [place] #### ACTH #### [facility] ,MCH [Entitic mass] by Automated countOrdered By: Aries Chavez on 98-13-6711WCH (RBC) [Entitic mass]29.6 klMoboss54.7-34.3[facility] CenterComment on above:Performed By: #### T4F, TSH3, JER, CMP #### [facility] [address] [place] [address] [place] #### ACTH #### [facility] ,MCHC Auto (RBC) [Mass/Vol]Ordered By: Aries Chavez on 71-86-4665YWZE (RBC) [Mass/Vol]33.4 g/dL32.0-35.0[facility] CenterMCV [Entitic volume] by Automated countOrdered By: Aries Chavez on 48-28-6609JCU (RBC) [Entitic vol]88.8 kTYommcr81-921KewmcighyLakehealth Tripoint Medical CenterComment on above:Performed By: #### T4F, TSH3, JER, CMP #### [facility] [address] [place] [address] [place] #### ACTH #### [facility] ,Neutrophils [#/volume] in Blood by Automated countOrdered By: Aries Chavez on 32-40-6291Iiptwckhewd (Bld) [#/Vol]6.0 10*3/uLNormal1.8-7.7FSheltering Arms HospitalComment on above:Performed By: #### T4F, TSH3, JER, CMP #### [facility] [address] [place] [address] [place] #### ACTH #### [facility] ,No Panel InformationOrdered By: Aries Chavez on 06-18-2024 Adrenocorticotropic Oomkqbc93.6 pg/mL7.2-63.3FSheltering Arms Hospital Comment on above:ACTH reference interval for samples collected between 7 and10 AM.Performed at: [facility] [employer] ([email or web address])[address] [id number] Director: Juan Hendricks PhD, Phone: [phone] GFR (CKD-EPI)> 60.0 mL/MinLakehealth Tripoint Medical CenterPharmacy Creatinine Clearance (Chem67.15 [facility] Medical CenterNucleated erythrocytes [Presence] in Blood by Automated countOrdered By: Aries Chavez on 26-26-5871Rfkvszbcs RBC Auto Ql (Bld)0.0 /100{WBC}0-0.5FSheltering Arms HospitalPlatelet mean volume [Entitic volume] in Blood by Automated countOrdered By: Aries Chavez on 82-23-5640Gvukemlg mean volume (Bld) [Entitic vol]7.1 fLNormal6.3-10.7FSheltering Arms HospitalComment on above:Performed By: #### T4F, TSH3, JER, CMP #### [facility] [address] [place] [address] [place] #### ACTH #### [facility] ,Platelets [#/volume] in Blood by Automated countOrdered By: Aries Chavez on 80-76-0765Wauagobfw (Bld) [#/Vol]342 10*3/nONnyqde361-692TalbrdagoLakehealth Tripoint Medical CenterComment on above:Performed By: #### T4F, TSH3, JER, CMP #### [facility] [address] [place] [address] [place] #### ACTH #### [facility] ,Potassium [Moles/volume] in Serum or PlasmaOrdered By: Aries Chavez on 45-78-6355Fjsoylwup [Moles/Vol]5.0 mmol/LNormal3.5-5.1FSheltering Arms HospitalComment on above:Performed By: #### T4F, JER, CMP, TSH3 #### [facility] [address] [place] [address] [place] #### ACTH #### [facility] ,Protein [Mass/volume] in Serum or PlasmaOrdered By: Aries Chavez on 31-88-6117Yrshjax [Mass/Vol]6.9 g/dLNormal6.4-8.9[facility] Medical CenterComment on above:Performed By: #### T4F, EJR, CMP, TSH3 #### [facility] [address] [place] [address] [place] #### ACTH #### [facility] ,Random cortisol measurementOrdered By: Aries Chavez on 50-15-4294Vcqhvank [Mass/Vol]18.8 ug/dLLakehealth Tripoint Medical CenterComment on above:[facility] Laboratory lamp shade assembler and method:AMRITA UNICEL DXI, POLYCLONAL ANTIBODY CORTISOL ASSAY.Reference range: AM 6 - 24 ug/dl PM <10 ug/dlSerum globulin measurement by calculation (mass/volume)Ordered By: Aries Chavez on 81-28-6553Lypbkula (S) [Mass/Vol]3.2 g/dLNormalLakehealth Tripoint Medical Center Comment on above:Performed By: #### T4F, JER, CMP, TSH3 #### [facility] [address] [place] [address] #### ACTH #### [facility] ,Serum or plasma albumin/globulin mass ratioOrdered By: Aries Chavez on 86-05-8970Qybafza/Globulin [Mass ratio]1.2 {ratio}NormalLakehealth Tripoint Medical CenterComment on above:Performed By: #### T4F, JER, CMP, TSH3 #### [facility] [address] [place] [address] #### ACTH #### [facility] ,Serum or plasma anion gap determinationOrdered By: Aries Chavez on 66-04-0215Lgskn gap [Moles/Vol]7.6 mmol/LNormal6.0-15.0[facility] Medical CenterComment on above:Performed By: #### T4F, JER, CMP, TSH3 #### [facility] [address] [place] [address] [place] #### ACTH #### [facility] ,Sodium [Moles/volume] in Serum or PlasmaOrdered By: Aries Chavez on 11-82-1880Bbrczz [Moles/Vol]126 mmol/FCve844-492FkvldxlosLakehealth Tripoint Medical CenterComment on above:Performed By: #### T4F, JER, CMP, TSH3 #### [facility] [address] [place] [address] [place] #### ACTH #### [facility] ,Thyrotropin [Units/volume] in Serum or PlasmaOrdered By: Aries Chavez on 83-40-2879YIF Qn24.20 m[IU]/LHigh0.45-5.33[facility] Comment on above:Performed By: #### CBC, CMP #### [facility] [address] [place] [address] USAThyroxine (T4) free [Mass/volume] in Serum or Plasma Ordered By: Aries Chavez on 50-51-7912Hfjv T4 [Mass/Vol]1.05 ng/dLNormal 0.61-1.12[facility] Medical CenterComment on above:Performed By: #### T4F, JER, CMP, TSH3 #### [facility] [address] [place] [address] #### ACTH #### [facility] ,Urea nitrogen [Mass/volume] in Serum or PlasmaOrdered By: Aries Chavez on 36-36-2403Pgpz nitrogen [Mass/Vol]9 mg/dLNormal7-[facility] CenterComment on above:Performed By: #### T4F, JER, CMP, TSH3 #### [facility] [address] [place] [address] [place] #### ACTH #### [facility] ,No Panel InformationOrdered By: Elayne James on 65-01-3239SOGGK Antigen (POC) [facility] CenterCOVID Antigen (POC)[facility] CenterAdrenocorticotropic Hormone PLon 99-88-7833Pnmfastmejdgsgytqpn Hormone PL 38.4 pg/mLNormal7.2-63.3[facility] Physician GroupComment on above:Result Comment: ACTH reference interval for samples collected between 7 and 10 AM. Performed at: [address] [id number] Ammunition [employer] Laborer: Juan Hendricks PhD, Phone: [phone] PERFORMED BY: [address] [place] [address] PATHOLOGIST SAMPLING EXPERT STEFANO HOLT M.D.Performed By: #### T4F, TSH3, JER, CMP #### [facility] [address] [place] [address] [place] #### ACTH #### [facility] ,Alanine aminotransferase [Enzymatic activity/volume] in Serum or PlasmaOrdered By: Aries Chavez on 72-07-4851XNZ [Catalytic activity/Vol]13 U/LNormal7-52 [facility] CenterComment on above:Performed By: #### T4F, TSH3, JER, CMP #### [facility] [address] [place] [address] [place] #### ACTH #### [facility] ,Albumin [Mass/volume] in Serum or Plasma by Bromocresol green (BCG) dye binding methoOrdered By: Aries Chavez on 55-86-6451Zgnusbn BCG dye [Mass/Vol]3.8 g/dL3.5-5.7FSheltering Arms HospitalAlkaline phosphatase [Enzymatic activity/volume] in Serum or PlasmaOrdered By: Aries Chavez on 05-07-2024 ALP [Catalytic activity/Vol]74 U/LDrqwvg00-062RyazqqlxrLakehealth Tripoint Medical Center Comment on above:Performed By: #### T4F, TSH3, JER, CMP #### [facility] [address] [place] [address] [place] #### ACTH #### [facility] ,Aspartate aminotransferase [Enzymatic activity/volume] in Serum or Plasma Ordered By: Aries Chavez on 96-03-7904MVM [Catalytic activity/Vol]20 U/L Zcmgxp15-27MvjpnbdikLakehealth Tripoint Medical CenterComment on above:Performed By: #### T4F, TSH3, JER, CMP #### [facility] [address] [place] [address] [place] #### ACTH #### [facility] ,Automated basophil %Ordered By: Aries Chavez on 98-41-2667Yqdcczebf/100 WBC (Bld)2.9 %Normal.[facility] Medical CenterComment on above:Performed By: #### T4F, TSH3, JER, CMP #### [facility] [address] [place] [address] [place] #### ACTH #### [facility] ,Automated basophil countOrdered By: Aries Chavez on 58-49-2479Anmppkcqt (Bld) [#/Vol]0.2 10*3/uLNormal0.0-0.2FSheltering Arms HospitalComment on above:Result Comment: PERFORMED BY: [place] [address] PATHOLOGIST SAMPLING EXPERT STEFANO HOLT M.D.Performed By: #### T4F, TSH3, JER, CMP #### [address] #### ACTH #### [facility] ,Automated blood monocyte countOrdered By: Aries Chavez on 05-07-2024 Monocytes (Bld) [#/Vol]0.8 10*3/uLNormal0.0-0.8[facility] Comment on above:Performed By: #### T4F, TSH3, JER, CMP #### [place] [address] [place] #### ACTH #### [facility] ,Automated eosinophil %Ordered By: Aries Chavez on 05-07-2024 Eosinophils/100 WBC (Bld)8.7 %Normal.[facility] Medical CenterComment on above:Performed By: #### T4F, TSH3, JER, CMP #### [facility] [address] [place] [address] [place] #### ACTH #### [facility] ,Automated eosinophil countOrdered By: Aries Chavez on 05-07-2024 Eosinophils (Bld) [#/Vol]0.6 10*3/uLHigh0.0-0.45[facility] CenterComment on above:Performed By: #### T4F, TSH3, JER, CMP #### [facility] [address] [place] [address] [place] #### ACTH #### [facility] ,Automated monocyte %Ordered By: Aries Chavez on 90-86-3964Mpekfjwvi/100 WBC (Bld)11.6 %Normal.[facility] Medical CenterComment on above: Performed By: #### T4F, TSH3, JER, CMP #### [facility] [address] [place] [address] [place] #### ACTH #### [facility] ,Automated neutrophil %Ordered By: Aries Chavez on 05-07-2024 Neutrophils/100 WBC (Bld)59.0 %Normal.[facility] Medical CenterComment on above:Performed By: #### T4F, TSH3, JER, CMP #### [facility] [address] [place] [address] [place] #### ACTH #### [facility] ,Bilirubin.direct [Mass/volume] in Serum or PlasmaOrdered By: Aries Chavez on 48-65-7434Otcyaqxyq.direct [Mass/Vol]0.10 mg/dL0.03-0.18FSheltering Arms HospitalBilirubin.direct [Mass/Vol]Bilirubin.direct [Mass/volume] in Serum or Plasma0.03-0.18FSheltering Arms HospitalBilirubin.total [Mass/volume] in Serum or PlasmaOrdered By: Aries Chavez on 05-07-2024 Bilirubin [Mass/Vol]0.6 mg/dLNormal0.3-1.0[facility] Comment on above:Performed By: #### T4F, TSH3, JER, CMP #### [facility] [address] [place] [address] [place] #### ACTH #### [facility] ,Calcium [Mass/volume] in Serum or PlasmaOrdered By: Aries Chavez on 82-00-6601Gfyhmld [Mass/Vol]8.9 mg/dLNormal8.6-10.3FSheltering Arms HospitalComment on above:Performed By: #### T4F, TSH3, JER, CMP #### [facility] [address] [place] [address] [place] #### ACTH #### [facility] ,Carbon dioxide, total [Moles/volume] in Serum or PlasmaOrdered By: Aries Chavez on 53-56-7134PA7 [Moles/Vol]29.3 mmol/FLqzksp66.0-31.0[facility] CenterComment on above:Performed By: #### T4F, TSH3, JER, CMP #### [facility] [address] [place] [address] [place] #### ACTH #### [facility] ,Chloride [Moles/volume] in Serum or PlasmaOrdered By: Aries Chavez on 67-43-0657Adpztlth [Moles/Vol]96 mmol/MGgr14-258DpucztlyvLakehealth Tripoint Medical CenterComment on above:Performed By: #### T4F, TSH3, JER, CMP #### [facility] [address] [place] [address] [place] #### ACTH #### [facility] ,Complete Blood Count Auto Diffon 52-88-2914Lzhv Corpuscular HGB Conc32.9 g/dL Wjuush94.0-35.0The [facility] Physician GroupComment on above:Performed By: #### T4F, TSH3, JER, CMP #### [facility] [address] [place] [address] [place] #### ACTH #### [facility] ,NRBC%0.0 /100{WBC}Normal0-0.5The [facility] Physician GroupComment on above: Performed By: #### T4F, TSH3, JER, CMP #### [facility] [address] [place] [address] [place] #### ACTH #### [facility] ,Comprehensive Metabolic Panelon 71-71-5605Xmbfomr [Mass/Vol]3.8 g/dLNormal 3.5-5.7The [facility] Physician GroupComment on above:Performed By: #### T4F, TSH3, JER, CMP #### [address] #### ACTH #### [facility] ,Creatinine Clr Calc Eykgraxn15.46NormNaval Hospital [facility] Physician Laird HospitalComment on above:Performed By: #### T4F, TSH3, JER, CMP #### [address] #### ACTH #### [facility] ,GFR/1.73 sq M.predicted MDRD (S/P/Bld) [Vol rate/Area]mL/min/{1.73_m2}NormalThe [facility] Physician Laird HospitalComment on above:Performed By: #### T4F, TSH3, JER, CMP #### [address] #### ACTH #### [facility] ,Cortisolon 52-25-7386Xfhmorjf12.4 ug/dLMemorial Regional [facility] Comment on above:Result Comment: Reference range: AM 6 - 24 ug/dl PM <10 ug/dl [facility] Laboratory lamp shade assembler and method: AMRITA UNICEL DXI, POLYCLONAL ANTIBODY CORTISOL ASSAY. PERFORMED BY: [place] [address] PATHOLOGIST SAMPLING EXPERT STEFANO HOLT M.D.Performed By: #### T4F, TSH3, JER, CMP #### [address] #### ACTH #### [facility] ,Creatinine [Mass/volume] in Serum or PlasmaOrdered By: Aries Chavez on 02-27-3186Mqvcgnonvw [Mass/Vol]0.93 mg/dLNormal0.60-1.20[facility] CenterComment on above:Performed By: #### T4F, TSH3, JER, CMP #### [facility] [address] [place] [address] [place] #### ACTH #### [facility] ,Erythrocyte distribution width [Ratio] by Automated countOrdered By: Aries Chavez on 03-11-9522Wjyrcuxpsug distribution width (RBC) [Ratio]13.3 %Normal 11.9-15.3FSheltering Arms HospitalComment on above:Performed By: #### T4F, TSH3, JER, CMP #### [facility] [address] [place] [address] [place] #### ACTH #### [facility] ,Erythrocytes [#/volume] in Blood by Automated countOrdered By: Aries Chavez on 68-42-9662YED (Bld) [#/Vol]3.94 10*6/uLNormal3.60-5.00[facility] CenterComment on above:Performed By: #### T4F, TSH3, JER, CMP #### [place] [address] [place] #### ACTH #### [facility] ,Glucose [Mass/volume] in Serum or PlasmaOrdered By: Aries Chavez on 13-69-6690Wwgtoea [Mass/Vol]92 mg/tPHgdsjj20-391UmveeoztfLakehealth Tripoint Medical CenterComment on above:ADA recommended reference rangeRandom Glucose Reference Range is dependent on time and content of last meal. Glucose of more than 200 mg/dL in a nonstressed, ambulatory subject supports the diagnosisof Diabetes Mellitus.Result Comment: Random Glucose Reference Range is dependent on time and content of last meal. Glucose of more than 200 mg/dL in a nonstressed, ambulatory subject supports the diagnosis of Diabetes Mellitus. ADA recommended reference rangePerformed By: #### T4F, TSH3, JER, CMP #### [place] [address] [place] #### ACTH #### [facility] ,Hematocrit [Volume Fraction] of Blood by Automated countOrdered By: Aries Chavez on 59-01-2612Plyvrppcqe (Bld) [Volume fraction]35.8 %Onubom33.0-46.4 [facility] CenterComment on above:Performed By: #### T4F, TSH3, JER, CMP #### [facility] [address] [place] [address] [place] #### ACTH #### [facility] ,Hemoglobin [Mass/volume] in BloodOrdered By: Aries Chavez on 05-07-2024 Hemoglobin (Bld) [Mass/Vol]11.8 g/jOJnrpeo38.8-15.4FSheltering Arms HospitalComment on above:Performed By: #### T4F, TSH3, JER, CMP #### [facility] [address] [place] [address] [place] #### ACTH #### [facility] ,Hepatic Panelon 95-78-5935Xpqzkafyw,Indirect0.5 mg/dLNormalThe [facility] Physician GroupComment on above:Performed By: #### T4F, TSH3, JER, CMP #### [facility] [address] [place] [address] [place] #### ACTH #### [facility] ,Bilirubin.indirect [Mass/Vol]0.10 mg/dLNormal0.03-0.18The [facility] Physician Laird HospitalComment on above:Performed By: #### T4F, TSH3, JER, CMP #### [facility] [address] [place] [address] [place] #### ACTH #### [facility] ,Leukocytes [#/volume] corrected for nucleated erythrocytes in Blood by Automated counOrdered By: Aries Chavez on 29-27-1676ZEX corrected for nucl RBC Auto (Bld) [#/Vol]6.8 10*3/uL3.8-11.6FSheltering Arms Hospital Leukocytes [#/volume] in Blood by Automated countOrdered By: Aries Chavez on 30-84-4655UWK (Bld) [#/Vol]6.8 10*3/uLNormal3.8-11.6FSheltering Arms HospitalComment on above:Performed By: #### T4F, TSH3, JER, CMP #### [facility] [address] [place] [address] [place] #### ACTH #### [facility] ,Lymphocytes [#/volume] in Blood by Automated countOrdered By: Aries Chavez on 11-84-9004Banmugkwawi (Bld) [#/Vol]1.2 10*3/uLNormal1.00-4.8[facility] CenterComment on above:Performed By: #### T4F, TSH3, JER, CMP #### [facility] [address] [place] [address] [place] #### ACTH #### [facility] ,Lymphocytes/100 leukocytes in Blood by Automated countOrdered By: Aries Chavez on 34-33-0605Eizkexkajnw/100 WBC (Bld)17.8 %Normal.[facility] CenterComment on above:Performed By: #### T4F, TSH3, JER, CMP #### [facility] [address] [place] [address] [place] #### ACTH #### [facility] ,MCH [Entitic mass] by Automated countOrdered By: Aries Chavez on 90-68-1849FGP (RBC) [Entitic mass]29.9 aqDuntts21.7-34.3FSheltering Arms HospitalComment on above:Performed By: #### T4F, TSH3, JER, CMP #### [facility] [address] [place] [address] [place] #### ACTH #### [facility] ,MCHC Auto (RBC) [Mass/Vol]Ordered By: Aries Chavez on 13-47-9981SRGO (RBC) [Mass/Vol]32.9 g/dL32.0-35.0[facility] CenterMCV [Entitic volume] by Automated countOrdered By: Aries Chavez on 01-01-1366KGK (RBC) [Entitic vol]90.9 tOZacnhf93-809YawqfqjrcLakehealth Tripoint Medical CenterComment on above:Performed By: #### T4F, TSH3, JER, CMP #### [address] #### ACTH #### [facility] ,Neutrophils [#/volume] in Blood by Automated countOrdered By: Aries Chavez on 14-72-0099Rzwruudeetv (Bld) [#/Vol]4.0 10*3/uLNormal1.8-7.7FSheltering Arms HospitalComment on above:Performed By: #### T4F, TSH3, JER, CMP #### [address] #### ACTH #### [facility] ,No Panel InformationOrdered By: Aries Chavez on 05-07-2024 Adrenocorticotropic Bkgdvdo83.4 pg/mL7.2-63.3FSheltering Arms Hospital Comment on above:ACTH reference interval for samples collected between 7 and10 AM.Performed at: [facility] [address] Director: Juan Hendricks PhD, Phone: [phone] GFR (CKD-EPI)> 60.0 mL/MinLakehealth Tripoint Medical CenterPharmacy Creatinine Clearance (Chem58.46 [facility] CenterNucleated erythrocytes [Presence] in Blood by Automated countOrdered By: Aries Chavez on 19-21-9519Sroufdkvn RBC Auto Ql (Bld)0.0 /100{WBC}0-0.5FSheltering Arms HospitalPlatelet mean volume [Entitic volume] in Blood by Automated countOrdered By: Aries Chavez on 47-63-2792Ywbaxocp mean volume (Bld) [Entitic vol]8.2 fLNormal6.3-10.7FSheltering Arms HospitalComment on above:Performed By: #### T4F, TSH3, JER, CMP #### [place] [address] [place] #### ACTH #### [facility] ,Platelets [#/volume] in Blood by Automated countOrdered By: Aries Chavez on 87-12-2129Tqbnedtop (Bld) [#/Vol]225 10*3/tGQcrumf493-265FcnzvgsrhLakehealth Tripoint Medical CenterComment on above:Performed By: #### T4F, TSH3, JER, CMP #### [facility] [address] [place] [address] [place] #### ACTH #### [facility] ,Potassium [Moles/volume] in Serum or PlasmaOrdered By: Aries Chavez on 23-56-3787Oepvizvom [Moles/Vol]4.4 mmol/LNormal3.5-5.1FSheltering Arms HospitalComment on above:Performed By: #### T4F, TSH3, JER, CMP #### [facility] [address] [place] [address] [place] #### ACTH #### [facility] ,Protein [Mass/volume] in Serum or PlasmaOrdered By: Aries Chavez on 77-61-9061Fhxtaub [Mass/Vol]6.8 g/dLNormal6.4-8.9[facility] CenterComment on above:Performed By: #### T4F, TSH3, JER, CMP #### [facility] [address] [place] [address] [place] #### ACTH #### [facility] ,Random cortisol measurementOrdered By: Aries Chavez on 59-59-8458Klgrehlk [Mass/Vol]14.4 ug/dLLakehealth Tripoint Medical CenterComment on above:[facility] Laboratory lamp shade assembler and method:AMRITA Angelpc Global SupportEL DXI, POLYCLONAL ANTIBODY CORTISOL ASSAY.Reference range: AM 6 - 24 ug/dl PM <10 ug/dlSerum globulin measurement by calculation (mass/volume)Ordered By: Aries Chavez on 98-15-7313Lulxtzzf (S) [Mass/Vol]3.0 g/dLNormalLakehealth [facility] Center Comment on above:Performed By: #### T4F, TSH3, JER, CMP #### [facility] [address] [place] [address] [place] #### ACTH #### [facility] ,Serum or plasma albumin/globulin mass ratioOrdered By: Aries Chavez on 21-67-6425Forpdsk/Globulin [Mass ratio]1.3 {ratio}[facility] HospitalComment on above:Performed By: #### T4F, TSH3, JER, CMP #### [facility] [address] [place] [address] [place] #### ACTH #### [facility] ,Serum or plasma anion gap determinationOrdered By: Aries Chavez on 79-85-5847Dfrpw gap [Moles/Vol]10.1 mmol/LNormal6.0-15.0[facility] CenterComment on above:Performed By: #### T4F, TSH3, JER, CMP #### [facility] [address] [place] [address] [place] #### ACTH #### [facility] ,Serum or plasma non-glucuronidated bilirubin measurement (mass/volume)Ordered By: Aries Chavez on 77-99-1713Bwwyctcpr.indirect [Mass/Vol]0.5 mg/dL [facility] CenterBilirubin.indirect [Mass/Vol]Serum or plasma non-glucuronidated bilirubin measurement (mass/volume)[facility] Centerodium [Moles/volume] in Serum or PlasmaOrdered By: Aries Chavez on 06-45-9393Fpzisc [Moles/Vol]131 mmol/VBaq769-552KyqjvkisnLakehealth Tripoint Medical CenterComment on above:Performed By: #### T4F, TSH3, JER, CMP #### [facility] [address] [place] [address] [place] #### ACTH #### [facility] ,Thyrotropin [Units/volume] in Serum or PlasmaOrdered By: Aries Chavez on 99-79-9298KDY Qn36.65 m[IU]/LHigh0.45-5.33[facility] Comment on above:Performed By: #### T4F, TSH3, JER, CMP #### [place] [address] [place] #### ACTH #### [facility] ,Thyroxine (T4) free [Mass/volume] in Serum or PlasmaOrdered By: Aries Chavez on 48-09-6139Exin T4 [Mass/Vol]0.60 ng/dLLow0.61-1.12[facility] CenterComment on above:Performed By: #### T4F, TSH3, JER, CMP #### [place] [address] [place] #### ACTH #### [facility] ,Urea nitrogen [Mass/volume] in Serum or PlasmaOrdered By: Aries Chavez on 33-92-1139Sdzi nitrogen [Mass/Vol]13 mg/dLNormal7-25[facility] CenterComment on above:Performed By: #### T4F, TSH3, JER, CMP #### [place] [address] [place] #### ACTH #### [facility] ,Cortisolon 45-79-7364Hjvnfmxi69.8 ug/dLNormalThe [facility] Comment on above:Result Comment: Reference range: AM 6 - 24 ug/dl PM <10 ug/dl [facility] Laboratory lamp shade assembler and method: TUNJI DXI, POLYCLONAL ANTIBODY CORTISOL ASSAY. PERFORMED BY: [place] [address] PATHOLOGIST SAMPLING EXPERT STEFANO HOLT M.D.Performed By: #### CBC, CMP #### [place] [address] USAFree T4 (Free Thyroxine)on 36-79-5106Ahpg T4 [Mass/Vol] 0.84 ng/dLNormal0.61-1.12The [facility] Physician GroupComment on above:Performed By: #### CBC, CMP #### [facility] [address] [place] [address] USAThyroid Stimulating Hormoneon 81-58-3005SOC Qn20.08 m[IU]/LHigh0.45-5.33The [facility] Physician GroupComment on above:Performed By: #### CBC, CMP #### [facility] [address] [place] [address] USAAlanine aminotransferase [Enzymatic activity/volume] in Serum or PlasmaOrdered By: Aries Chavez on 48-69-6702UCD [Catalytic activity/Vol]17 U/LNormal7-52[facility] CenterComment on above: Performed By: #### CBC, CMP #### [facility] [address] [place] [address] USAAlbumin [Mass/volume] in Serum or Plasma by Bromocresol green (BCG) dye binding methoOrdered By: Aries Chavez on 39-83-4732Vdsoivj BCG dye [Mass/Vol]3.9 g/dL3.5-5.7FSheltering Arms HospitalAlkaline phosphatase [Enzymatic activity/volume] in Serum or PlasmaOrdered By: Aries Chavez on 36-94-2476FRJ [Catalytic activity/Vol]123 U/NLjtd58-079CwscabeupLakehealth Tripoint Medical CenterComment on above:Performed By: #### CBC, CMP #### [place] [address] USAAspartate aminotransferase [Enzymatic activity/volume] in Serum or PlasmaOrdered By: Aries Chavez on 59-58-4845UXB [Catalytic activity/Vol]22 U/DCvinpi92-63FxzolbgorLakehealth Tripoint Medical CenterComment on above: Performed By: #### CBC, CMP #### [facility] [address] [place] [address] USAAutomated basophil %Ordered By: Aries Chavez on 95-27-0738Rvoaiuxaj/100 WBC (Bld)3.0 %Normal.[facility] Comment on above:Performed By: #### CBC, CMP #### [address] [address] USAAutomated basophil countOrdered By: Aries Chavez on 45-75-0936Tzkkekjvp (Bld) [#/Vol]0.2 10*3/uLNormal0.0-0.2FSheltering Arms HospitalComment on above:Result Comment: PERFORMED BY: [place] [address] PATHOLOGIST SAMPLING EXPERT STEFANO HOLT M.D.Performed By: #### CBC, CMP #### [place] [address] USAAutomated blood monocyte countOrdered By: Aries Chavez on 88-62-9531Ofqqqmlhk (Bld) [#/Vol]0.7 10*3/uLNormal0.0-0.8[facility] CenterComment on above:Performed By: #### CBC, CMP #### [facility] [address] [place] [address] USAAutomated eosinophil %Ordered By: Aries Chavez on 93-83-2265Yprgnalwvsf/100 WBC (Bld)11.6 %Normal.[facility] CenterComment on above:Performed By: #### CBC, CMP #### [facility] [address] [place] [address] USAAutomated eosinophil countOrdered By: Aries Chavez on 28-98-2369Mpqujwjalyr (Bld) [#/Vol]0.7 10*3/uLHigh0.0-0.45[facility] CenterComment on above:Performed By: #### CBC, CMP #### [facility] [address] [place] [address] USAAutomated monocyte %Ordered By: Aries Chavez on 93-13-7305Ydghakgml/100 WBC (Bld)11.9 %Normal.[facility] Comment on above:Performed By: #### CBC, CMP #### [facility] [address] [place] [address] USAAutomated neutrophil %Ordered By: Aries Chavez on 45-29-6141Vjkqvjdztvn/100 WBC (Bld)50.5 %Normal.[facility] CenterComment on above:Performed By: #### CBC, CMP #### [facility] [address] [place] [address] USABilirubin.total [Mass/volume] in Serum or PlasmaOrdered By: Aries Chavez on 35-95-2154Rxtbjiqfd [Mass/Vol]0.6 mg/dLNormal0.3-1.0 [facility] CenterComment on above:Performed By: #### CBC, CMP #### [place] [address] USACalcium [Mass/volume] in Serum or PlasmaOrdered By: Aries Chavez on 97-84-3081Kectvbk [Mass/Vol]9.3 mg/dLNormal8.6-10.3 [facility] CenterComment on above:Performed By: #### CBC, CMP #### [place] [address] USACarbon dioxide, total [Moles/volume] in Serum or Plasma Ordered By: Aries Chavez on 92-24-5371KR3 [Moles/Vol]30.3 mmol/LNormal 21.0-31.0[facility] CenterComment on above:Performed By: #### CBC, CMP #### [place] [address] USAChloride [Moles/volume] in Serum or PlasmaOrdered By: Aries Chavez on 05-74-3540Ybxgczlj [Moles/Vol]96 mmol/WBne66-233UhxmrzgmmLakehealth Tripoint Medical CenterComment on above:Performed By: #### CBC, CMP #### [facility] [address] [place] [address] USAComplete Blood Count Auto Diffon 35-68-6083Xzpz Corpuscular HGB Conc33.3 g/gTIquong43.0-35.0The [facility] Physician GroupComment on above:Performed By: #### CBC, CMP #### [place] [address] USANRBC%0.1 /100{WBC}Normal0-0.5[facility] Comment on above:Performed By: #### CBC, CMP #### [place] [address] USAComprehensive Metabolic Panelon 17-64-1948Dopcmse [Mass/Vol]3.9 g/dLNormal3.5-5.7The [facility] Physician Laird HospitalComment on above: Performed By: #### CBC, CMP #### [place] [address] USACreatinine Clr Calc Wgcaohdb76.20NormNaval Hospital Pensacola Physician Laird HospitalComment on above:Result Comment: PERFORMED BY: [place] [address] PATHOLOGIST SAMPLING EXPERT STEFANO HOLT M.D.Performed By: #### CBC, CMP #### [place] [address] USAGFR/1.73 sq M.predicted MDRD (S/P/Bld) [Vol rate/Area] mL/min/{1.73_m2}NormalThe [facility] Physician Laird HospitalComment on above:Performed By: #### CBC, CMP #### [place] [address] USACreatinine [Mass/volume] in Serum or PlasmaOrdered By: Aries Chavez on 90-42-7140Eygrcfnvhz [Mass/Vol]0.83 mg/dLNormal0.60-1.20 [facility] CenterComment on above:Performed By: #### CBC, CMP #### [place] [address] USAErythrocyte distribution width [Ratio] by Automated count Ordered By: Aries Chavez on 22-44-1660Wccjvmuajgw distribution width (RBC) [Ratio]13.4 %Ptevuq15.9-15.3FSheltering Arms HospitalComment on above: Performed By: #### CBC, CMP #### [place] [address] USAErythrocytes [#/volume] in Blood by Automated countOrdered By: Aries Chavez on 61-99-4661PKI (Bld) [#/Vol]4.08 10*6/uLNormal3.60-5.00 [facility] CenterComment on above:Performed By: #### CBC, CMP #### [place] [id number] USAGlucose [Mass/volume] in Serum or PlasmaOrdered By: Aries Chavez on 19-53-5144Dhlcjpm [Mass/Vol]95 mg/aASaoawf92-650CwisddlnbLakehealth Tripoint Medical CenterComment on above:ADA recommended reference rangeRandom Glucose Reference Range is dependent on time and content of last meal. Glucose of more than 200 mg/dL in a nonstressed, ambulatory subject supports the diagnosisof Diabetes Mellitus.Result Comment: Random Glucose Reference Range is dependent on time and content of last meal. Glucose of more than 200 mg/dL in a nonstressed, ambulatory subject supports the diagnosis of Diabetes Mellitus. ADA recommended reference rangePerformed By: #### CBC, CMP #### [place] [id number] USAHematocrit [Volume Fraction] of Blood by Automated count Ordered By: Aries Chavez on 39-48-5792Gffmwsuifc (Bld) [Volume fraction] 36.6 %Ssuthq38.0-46.4FSheltering Arms HospitalComment on above:Performed By: #### CBC, CMP #### [place] [id number] USAHemoglobin [Mass/volume] in BloodOrdered By: Aries Chavez on 09-10-8283Qxvjspjsof (Bld) [Mass/Vol]12.2 g/yFCahrdo45.8-15.4 [facility] CenterComment on above:Performed By: #### CBC, CMP #### [place] [id number] USALeukocytes [#/volume] corrected for nucleated erythrocytes in Blood by Automated counOrdered By: Aries Chavez on 63-48-7827UDS corrected for nucl RBC Auto (Bld) [#/Vol]5.8 10*3/uL3.8-11.6FSheltering Arms HospitalLeukocytes [#/volume] in Blood by Automated countOrdered By: Aries Chavez on 34-04-4677DZT (Bld) [#/Vol]5.8 10*3/uLNormal3.8-11.6 [facility] CenterComment on above:Performed By: #### CBC, CMP #### [facility] [address] [place] [id number] USALymphocytes [#/volume] in Blood by Automated countOrdered By: Aries Chavez on 03-91-6051Wwkjzlvtciq (Bld) [#/Vol]1.3 10*3/uLNormal 1.00-4.8[facility] CenterComment on above:Performed By: #### CBC, CMP #### [place] [address] USALymphocytes/100 leukocytes in Blood by Automated count Ordered By: Aries Chavez on 74-88-6513Jagqsrwjtqt/100 WBC (Bld)23.0 %Normal .[facility] CenterComment on above:Performed By: #### CBC, CMP #### [facility] [address] [place], [place] [id number] [facility] [Entitic mass] by Automated countOrdered By: Aries Chavez on 52-28-2758CHG (RBC) [Entitic mass]29.9 oyGfghay11.7-34.3FSheltering Arms HospitalComment on above:Performed By: #### CBC, CMP #### [address] Auto (RBC) [Mass/Vol]Ordered By: Aries Chavez on 63-07-7955CYAZ (RBC) [Mass/Vol]33.3 g/dL32.0-35.0[facility] CenterMCV [Entitic volume] by Automated countOrdered By: Aries Chavez on 12-72-1569DEX (RBC) [Entitic vol]89.7 cFRpemho39-300FmnfdkgqcLakehealth Tripoint Medical CenterComment on above:Performed By: #### CBC, CMP #### [facility] [address] [place] [address] USANeutrophils [#/volume] in Blood by Automated countOrdered By: Aries Chavez on 04-81-0436Twphlnzdiab (Bld) [#/Vol]2.9 10*3/uLNormal 1.8-7.7FSheltering Arms HospitalComment on above:Performed By: #### CBC, CMP #### [facility] [address] [place] [address] USANo Panel InformationOrdered By: Aries Chavez on 50-61-1869Gugpifpjl GFR (CKD-EPI)> 60.0 mL/MinLakehealth Tripoint Medical Center Pharmacy Creatinine Clearance (Chem62.20[facility] Nucleated erythrocytes [Presence] in Blood by Automated countOrdered By: Aries Chavez on 94-14-5753Hnkcurdgh RBC Auto Ql (Bld)0.1 /100{WBC}0-0.5FSheltering Arms HospitalPlatelet mean volume [Entitic volume] in Blood by Automated countOrdered By: Aries Chavez on 05-77-5363Mscgfwjm mean volume (Bld) [Entitic vol]8.8 fLNormal6.3-10.7FSheltering Arms HospitalComment on above:Performed By: #### CBC, CMP #### [facility] [address] [place] [address] USAPlatelets [#/volume] in Blood by Automated countOrdered By: Aries Chavez on 82-42-4475Vrykhklue (Bld) [#/Vol]235 10*3/uLNormal 150-450[facility] Medical CenterComment on above:Performed By: #### CBC, CMP #### [facility] [address] [place] [address] USAPotassium [Moles/volume] in Serum or PlasmaOrdered By: Aries Chavez on 46-84-4243Ccfvbptve [Moles/Vol]4.9 mmol/LNormal3.5-5.1 [facility] CenterComment on above:Performed By: #### CBC, CMP #### [facility] [address] [place] [address] USAProtein [Mass/volume] in Serum or PlasmaOrdered By: Aries Chavez on 75-89-9777Veoedct [Mass/Vol]7.0 g/dLNormal6.4-8.9[facility] Medical CenterComment on above:Performed By: #### CBC, CMP #### [place] [address] USASerum globulin measurement by calculation (mass/volume) Ordered By: Aries Chavez on 26-75-7517Gwyknptl (S) [Mass/Vol]3.1 g/dLNormal [facility] CenterComment on above:Performed By: #### CBC, CMP #### [place] [address] USASerum or plasma albumin/globulin mass ratioOrdered By: Aries Chavez on 99-15-5458Gqarbyh/Globulin [Mass ratio]1.3 {ratio}Normal [facility] CenterComment on above:Performed By: #### CBC, CMP #### [place] [address] USASerum or plasma anion gap determinationOrdered By: Aries Chavez on 50-01-0132Mtecd gap [Moles/Vol]9.6 mmol/LNormal6.0-15.0[facility] CenterComment on above:Performed By: #### CBC, CMP #### [facility] [address] [place] [address] USASodium [Moles/volume] in Serum or PlasmaOrdered By: Aries Chavez on 75-86-8524Fzrmvz [Moles/Vol]131 mmol/NLok910-409QautzimjrLakehealth Tripoint Medical CenterComment on above:Performed By: #### CBC, CMP #### [facility] [address] [place] [address] USAUrea nitrogen [Mass/volume] in Serum or PlasmaOrdered By: Aries Chavez on 34-38-2963Dqhf nitrogen [Mass/Vol]20 mg/dLNormal7-25 [facility] CenterComment on above:Performed By: #### CBC, CMP #### [facility] [address] [place] [address] USACT abdomen pelvis w conon 68-95-7076KF abdomen pelvis w [facility] [place] [address] [place] [address] CT Scan Report Signed Patient: Perla Ibarra MR#: [id number] : 1955 Acct:[id number] Age/Sex: 68 / F ADM Date: 03/14/24 Loc: Room: Type: [facility] RCR Attending Dr: Aries Chavez II DO Copies to: Aries Chavez II, DO Ordering Provider: Aries Chavez II, DO Date of Service: 03/14/24 CT/CT abdomen pelvis w con: C64.1 - Malignant neoplasm of right kidney, except renal ... ([id number]) CT/CT chest w con: C64.1 - Malignant [...] Uterus is grossly unremarkable. No adnexal mass.] Peritoneum/Retroperitoneum:No free air, free fluid or lymphadenopathy.[ Abd [...] Shelley Jr., D.O.03/14/2024 3:47 PM Dictation Location: [place] [address] Transcribed By: [facility] 03/14/24 1547 Dictated By: Junior Shelley Jr, DO 03/14/24 1528 Signed By: 03/14/24 1547NormNaval Hospital [facility] Physician GroupComplete Blood Count Auto Diffon [id number] (Bld) [#/Vol]0.2 10*3/uLNormal0.0-0.2The [facility] Physician GroupComment on above:Result Comment: PERFORMED BY: [address] [place] [address] PATHOLOGIST SAMPLING EXPERT STEFANO HOLT M.D.Performed By: #### CBC, CMP #### [facility] [address] [place] [address] USABasophils/100 WBC (Bld)2.9 %Normal.The [facility] Physician GroupComment on above:Performed By: #### CBC, CMP #### [facility] [address] [place] [address] USAEosinophils (Bld) [#/Vol]0.7 10*3/uLHigh0.0-0.45The [facility] Physician GroupComment on above:Performed By: #### CBC, CMP #### [place] [id number] USAEosinophils/100 WBC (Bld)10.7 %Normal.The [facility] Physician GroupComment on above:Performed By: #### CBC, CMP #### [place] [address] USAErythrocyte distribution width (RBC) [Ratio]13.8 %Normal 11.9-15.3The [facility] Physician GroupComment on above:Performed By: #### CBC, CMP #### [place] [address] USAHematocrit (Bld) [Volume fraction]36.2 %Bfdags55.0-46.4The [facility] Physician GroupComment on above:Performed By: #### CBC, CMP #### [place] [address] USAHemoglobin (Bld) [Mass/Vol]12.3 g/cIHrgwse47.8-15.4The [facility] Physician GroupComment on above:Performed By: #### CBC, CMP #### [place] [id number] USALymphocytes (Bld) [#/Vol]1.4 10*3/uLNormal1.00-4.8The [facility] Physician GroupComment on above:Performed By: #### CBC, CMP #### [address] [address] USALymphocytes/100 WBC (Bld)22.2 %Normal.The [facility] Physician GroupComment on above:Performed By: #### CBC, CMP #### [facility] [address] [place] [address] USAH (RBC) [Entitic mass]30.2 oePdxpgu13.7-34.3The [facility] Physician GroupComment on above:Performed By: #### CBC, CMP #### [facility] [address] [place] [address] USAMCV (RBC) [Entitic vol]89.0 nHPvfsgk31-850Zym [facility] Physician GroupComment on above:Performed By: #### CBC, CMP #### [facility] [address] [place] [address] USAMean Corpuscular HGB Conc34.0 g/hOSfyrhk45.0-35.0The [facility] Physician GroupComment on above:Performed By: #### CBC, CMP #### [place] [address] USAMonocytes (Bld) [#/Vol]0.7 10*3/uLNormal0.0-0.8The [facility] Physician GroupComment on above:Performed By: #### CBC, CMP #### [place] [address] USAMonocytes/100 WBC (Bld)10.7 %Normal.The [facility] Physician GroupComment on above:Performed By: #### CBC, CMP #### [place] [address] USANeutrophils (Bld) [#/Vol]3.5 10*3/uLNormal1.8-7.7The [facility] Physician GroupComment on above:Performed By: #### CBC, CMP #### [place] [address] USANeutrophils/100 WBC (Bld)53.5 %Normal.The [facility] Physician GroupComment on above:Performed By: #### CBC, CMP #### [place] [address] USANRBC%0.0 /100{WBC}Normal0-0.5The [facility] Comment on above:Performed By: #### CBC, CMP #### [facility] [address] [place] [address] USAPlatelet mean volume (Bld) [Entitic vol]7.9 fLNormal 6.3-10.7The [facility] Physician GroupComment on above:Performed By: #### CBC, CMP #### [facility] [address] [place] [address] USAPlatelets (Bld) [#/Vol]258 10*3/dTElqdlv839-203Tlh [facility] Physician GroupComment on above:Performed By: #### CBC, CMP #### [place] [address] USARBC (Bld) [#/Vol]4.07 10*6/uLNormal3.60-5.00The [facility] Physician GroupComment on above:Performed By: #### CBC, CMP #### [place] [address] USAWBC (Bld) [#/Vol]6.5 10*3/uLNormal3.8-11.6The [facility] Physician GroupComment on above:Performed By: #### CBC, CMP #### [place] [address] USAComprehensive Metabolic Panelon [id number] [Mass/Vol]4.0 g/dLNormal3.5-5.7The [facility] Physician GroupComment on above: Order Comment: STAT BUN/CREAT FOR CTPerformed By: #### CBC, CMP #### [place] [address] USAAlbumin/Globulin [Mass ratio]1.1 {ratio}NormalThe [facility] Physician GroupComment on above:Order Comment: STAT BUN/CREAT FOR CT Performed By: #### CBC, CMP #### [place] [address] USAALP [Catalytic activity/Vol]181 U/XWrkn72-529Crq [facility] Physician GroupComment on above:Order Comment: STAT BUN/CREAT FOR CTPerformed By: #### CBC, CMP #### [facility] [address] [place] [address] USAALT [Catalytic activity/Vol]28 U/LNormal7-52The [facility] Physician GroupComment on above:Order Comment: STAT BUN/CREAT FOR CTPerformed By: #### CBC, CMP #### [facility] [address] [place] [address] USAAnion gap [Moles/Vol]11.0 mmol/LNormal6.0-15.0The [facility] Physician GroupComment on above:Order Comment: STAT BUN/CREAT FOR CT Performed By: #### CBC, CMP #### [facility] [address] [place] [address] USAAST [Catalytic activity/Vol]27 U/ZZaybzr45-90Zwm [facility] Physician GroupComment on above:Order Comment: STAT BUN/CREAT FOR CTPerformed By: #### CBC, CMP #### [place] [address] USABilirubin [Mass/Vol]0.5 mg/dLNormal0.3-1.0The [facility] Physician GroupComment on above:Order Comment: STAT BUN/CREAT FOR CTPerformed By: #### CBC, CMP #### [place] [address] USACalcium [Mass/Vol]9.6 mg/dLNormal8.6-10.3The [facility] Physician GroupComment on above:Order Comment: STAT BUN/CREAT FOR CTPerformed By: #### CBC, CMP #### [place] [address] USAChloride [Moles/Vol]98 mmol/XBnhebl35-518Pdo [facility] Physician GroupComment on above:Order Comment: STAT BUN/CREAT FOR CTPerformed By: #### CBC, CMP #### [place] [address] USACO2 [Moles/Vol]27.8 mmol/SBthnbm86.0-31.0The [facility] Physician GroupComment on above:Order Comment: STAT BUN/CREAT FOR CTPerformed By: #### CBC, CMP #### [facility] [address] [place] [address] USACreatinine [Mass/Vol]0.87 mg/dLNormal0.60-1.20The [facility] Physician GroupComment on above:Order Comment: STAT BUN/CREAT FOR CT Performed By: #### CBC, CMP #### [place] [address] USACreatinine Clr Calc Pwhzrirk22.34NormNaval Hospital Pensacola Physician GroupComment on above:Order Comment: STAT BUN/CREAT FOR CTResult Comment: PERFORMED BY: [place] [address] PATHOLOGIST SAMPLING EXPERT STEFANO HOLT M.D.Performed By: #### CBC, CMP #### [place] [address] USAGFR/1.73 sq M.predicted MDRD (S/P/Bld) [Vol rate/Area] mL/min/{1.73_m2}NormalThe [facility] Physician GroupComment on above:Order Comment: STAT BUN/CREAT FOR CTPerformed By: #### CBC, CMP #### [place] [address] USAGlobulin (S) [Mass/Vol]3.6 g/dLNoAtrium Health Physician GroupComment on above:Order Comment: STAT BUN/CREAT FOR CTPerformed By: #### CBC, CMP #### [place] [address] USAGlucose [Mass/Vol]96 mg/hUXbrtdf74-686Jvp [facility] Physician GroupComment on above:Order Comment: STAT BUN/CREAT FOR CTResult Comment: Random Glucose Reference Range is dependent on time and content of last meal. Glucose of more than 200 mg/dL in a nonstressed, ambulatory subject supports the diagnosis of Diabetes Mellitus. ADA recommended reference rangePerformed By: #### CBC, CMP #### [place] [address] USAPotassium [Moles/Vol]4.8 mmol/LNormal3.5-5.1The [facility] Physician GroupComment on above:Order Comment: STAT BUN/CREAT FOR CTPerformed By: #### CBC, CMP #### [place] [address] USAProtein [Mass/Vol]7.6 g/dLNormal6.4-8.9The [facility] Physician GroupComment on above:Order Comment: STAT BUN/CREAT FOR CTPerformed By: #### CBC, CMP #### [place] [address] USASodium [Moles/Vol]132 mmol/XAcf368-681Zvi [facility] Physician GroupComment on above:Order Comment: STAT BUN/CREAT FOR CTPerformed By: #### CBC, CMP #### [place] [address] USAUrea nitrogen [Mass/Vol]23 mg/dLNormal7-25The [facility] Physician GroupComment on above:Order Comment: STAT BUN/CREAT FOR CTPerformed By: #### CBC, CMP #### [place] [address] USAAdrenocorticotropic Hormone PLon 02-27-2024 Adrenocorticotropic Hormone PL39.6 pg/mLNormal7.2-63.3The [facility] Physician GroupComment on above:Result Comment: ACTH reference interval for samples collected between 7 and 10 AM. Performed at: [facility] Lab[address] [id number] [employer] Laborer: Juan Hendricks PhD, Phone: [phone] PERFORMED BY: [place] [address] PATHOLOGIST SAMPLING EXPERT STEFANO HOLT M.D.Performed By: #### T4F, TSH3, JER, CMP #### [place] [address] [place] #### ACTH #### [facility] ,Complete Blood Count Auto Diffon [id number] (Bld) [#/Vol]0.2 10*3/uL Normal0.0-0.2The [facility] Physician GroupComment on above:Result Comment: PERFORMED BY: [place] [address] PATHOLOGIST SAMPLING EXPERT STEFANO HOLT M.D.Performed By: #### T4F, TSH3, JER, CMP #### [address] #### ACTH #### [facility] ,Basophils/100 WBC (Bld)3.5 %Normal.The [facility] Physician GroupComment on above:Performed By: #### T4F, TSH3, JER, CMP #### [address] #### ACTH #### [facility] ,Eosinophils (Bld) [#/Vol]0.9 10*3/uLHigh0.0-0.45The [facility] Comment on above:Performed By: #### T4F, TSH3, JER, CMP #### [address] #### ACTH #### [facility] ,Eosinophils/100 WBC (Bld)13.9 %Normal.The [facility] Physician GroupComment on above:Performed By: #### T4F, TSH3, JER, CMP #### [place] [address] [place] #### ACTH #### [facility] ,Erythrocyte distribution width (RBC) [Ratio]14.0 %Dyvsyg22.9-15.3The [facility] Physician GroupComment on above:Performed By: #### T4F, TSH3, JER, CMP #### [place] [address] [place] #### ACTH #### [facility] ,Hematocrit (Bld) [Volume fraction]35.5 %Bmpfto65.0-46.4The [facility] Physician GroupComment on above:Performed By: #### T4F, TSH3, JER, CMP #### [place] [address] [place] #### ACTH #### [facility] ,Hemoglobin (Bld) [Mass/Vol]11.7 g/dLLow11.8-15.4The [facility] Comment on above:Performed By: #### T4F, TSH3, JER, CMP #### [place] [address] [place] #### ACTH #### [facility] ,Lymphocytes (Bld) [#/Vol]1.2 10*3/uLNormal1.00-4.8The [facility] Comment on above:Performed By: #### T4F, TSH3, JER, CMP #### [address] #### ACTH #### [facility] ,Lymphocytes/100 WBC (Bld)17.7 %Normal.The [facility] Physician GroupComment on above:Performed By: #### T4F, TSH3, JER, CMP #### [place] [address] [place] #### ACTH #### [facility] ,MCH (RBC) [Entitic mass]29.6 biDsviyu86.7-34.3The [facility] Comment on above:Performed By: #### T4F, TSH3, JER, CMP #### [place] [address] [place] #### ACTH #### [facility] ,MCV (RBC) [Entitic vol]89.5 vYSywcgw17-067Bmz [facility] Physician GroupComment on above:Performed By: #### T4F, TSH3, JER, CMP #### [place] [address] [place] #### ACTH #### [facility] ,Mean Corpuscular HGB Conc33.0 g/lKEeiwii64.0-35.0The [facility] Comment on above:Performed By: #### T4F, TSH3, JER, CMP #### [place] [address] [place] #### ACTH #### [facility] ,Monocytes (Bld) [#/Vol]0.7 10*3/uLNormal0.0-0.8The [facility] Comment on above:Performed By: #### T4F, TSH3, JER, CMP #### [place] [address] [place] #### ACTH #### [facility] ,Monocytes/100 WBC (Bld)11.0 %Normal.The [facility] Physician GroupComment on above:Performed By: #### T4F, TSH3, JER, CMP #### [address] #### ACTH #### [facility] ,Neutrophils (Bld) [#/Vol]3.6 10*3/uLNormal1.8-7.7The [facility] Comment on above:Performed By: #### T4F, TSH3, JER, CMP #### [place] [address] [place] #### ACTH #### [facility] ,Neutrophils/100 WBC (Bld)53.9 %Normal.The [facility] Physician GroupComment on above:Performed By: #### T4F, TSH3, JER, CMP #### [place] [address] [place] #### ACTH #### [facility] ,NRBC%0.2 /100{WBC}Normal0-0.5The [facility] Physician GroupComment on above: Performed By: #### T4F, TSH3, JER, CMP #### [place] [address] [place] #### ACTH #### [facility] ,Platelet mean volume (Bld) [Entitic vol]8.3 fLNormal6.3-10.7The [facility] Physician GroupComment on above:Performed By: #### T4F, TSH3, JER, CMP #### [place] [address] [place] #### ACTH #### [facility] ,Platelets (Bld) [#/Vol]262 10*3/yDCsudtt872-214Hia [facility] Comment on above:Performed By: #### T4F, TSH3, JER, CMP #### [address] #### ACTH #### [facility] ,RBC (Bld) [#/Vol]3.97 10*6/uLNormal3.60-5.00The [facility] Physician [facility] Comment on above:Performed By: #### T4F, TSH3, JER, CMP #### [address] #### ACTH #### [facility] ,WBC (Bld) [#/Vol]6.7 10*3/uLNormal3.8-11.6The [facility] Physician GroupComment on above:Performed By: #### T4F, TSH3, JER, CMP #### [address] #### ACTH #### [facility] ,Comprehensive Metabolic Panelon [id number] [Mass/Vol]3.8 g/dLNormal 3.5-5.7The [facility] Physician GroupComment on above:Performed By: #### CBC, CMP #### [place] [address] USAAlbumin/Globulin [Mass ratio]1.1 {ratio}NormalThe [facility] Physician GroupComment on above:Performed By: #### CBC, CMP #### [place] [address] USAALP [Catalytic activity/Vol]370 U/PGsul66-459Bck [facility] Physician GroupComment on above:Performed By: #### CBC, CMP #### [facility] [address] [place] [address] USAALT [Catalytic activity/Vol]143 U/LHigh7-52The [facility] Physician GroupComment on above:Performed By: #### CBC, CMP #### [facility] [address] [place] [address] USAAnion gap [Moles/Vol]8.9 mmol/LNormal6.0-15.0The [facility] Physician GroupComment on above:Performed By: #### CBC, CMP #### [facility] [address] [place] [address] USAAST [Catalytic activity/Vol]98 U/TGftm44-98Hel [facility] Physician GroupComment on above:Performed By: #### CBC, CMP #### [facility] [address] [place] [address] USABilirubin [Mass/Vol]0.6 mg/dLNormal0.3-1.0The [facility] Physician GroupComment on above:Performed By: #### CBC, CMP #### [facility] [address] [place] [address] USACalcium [Mass/Vol]9.6 mg/dLNormal8.6-10.3The [facility] Physician GroupComment on above:Performed By: #### CBC, CMP #### [facility] [address] [place] [address] USAChloride [Moles/Vol]97 mmol/TKxn24-733Bnh [facility] Physician GroupComment on above:Performed By: #### CBC, CMP #### [facility] [address] [place] [address] USACO2 [Moles/Vol]29.6 mmol/VWziqcc41.0-31.0The [facility] Physician GroupComment on above:Performed By: #### CBC, CMP #### [facility] [address] [place] [address] USACreatinine [Mass/Vol]0.80 mg/dLNormal0.60-1.20The [facility] Physician GroupComment on above:Performed By: #### CBC, CMP #### [facility] [address] [place] [address] USACreatinine Clr Calc Mbbywydf39.54NormNaval Hospital Pensacola Physician GroupComment on above:Performed By: #### CBC, CMP #### [facility] [address] [place] [address] USAGFR/1.73 sq M.predicted MDRD (S/P/Bld) [Vol rate/Area] mL/min/{1.73_m2}NormalThe [facility] Physician GroupComment on above:Performed By: #### CBC, CMP #### [facility] [address] [place] [address] USAGlobulin (S) [Mass/Vol]3.6 g/dLNoAtrium Health Physician GroupComment on above:Performed By: #### CBC, CMP #### [place] [address] USAGlucose [Mass/Vol]95 mg/lFOxxvai25-054Dgk [facility] Physician GroupComment on above:Result Comment: Random Glucose Reference Range is dependent on time and content of last meal. Glucose of more than 200 mg/dL in a nonstressed, ambulatory subject supports the diagnosis of Diabetes Mellitus. ADA recommended reference rangePerformed By: #### CBC, CMP #### [place] [address] USAPotassium [Moles/Vol]4.5 mmol/LNormal3.5-5.1The [facility] Physician GroupComment on above:Performed By: #### CBC, CMP #### [place] [address] USAProtein [Mass/Vol]7.4 g/dLNormal6.4-8.9The [facility] Physician GroupComment on above:Performed By: #### CBC, CMP #### [place] [address] USASodium [Moles/Vol]131 mmol/JXrg588-264Hen [facility] Physician GroupComment on above:Performed By: #### CBC, CMP #### [address] [place] [address] USAUrea nitrogen [Mass/Vol]12 mg/dLNormal [facility] Physician GroupComment on above:Performed By: #### CBC, CMP #### [place] [address] USACortisolon 21-61-8754Kwsswesa26.4 ug/dLNoAtrium Health Physician GroupComment on above:Result Comment: Reference range: AM 6 - 24 ug/dl PM <10 ug/dl [facility] lamp shade assembler and method: netZentryEL DXI, POLYCLONAL ANTIBODY CORTISOL ASSAY. PERFORMED BY: [place] [address] PATHOLOGIST SAMPLING EXPERT STEFANO HOLT M.D.Performed By: #### T4F, TSH3, JER, CMP #### [address] #### ACTH #### [facility] ,No Panel InformationOrdered By: Aries Chavez on 02-27-2024 Adrenocorticotropic Ktozvwd31.6 pg/mL7.2-63.3FSheltering Arms Hospital Comment on above:ACTH reference interval for samples collected between 7 and10 AM.Performed at: [address] [id number] Director: Juan Hendricks PhD, Phone: [phone] cortisol measurement Ordered By: Aries Chavez on 39-11-5607Kfhnlokb [Mass/Vol]17.4 ug/dL [facility] CenterComment on above:[facility] lamp shade assembler and method:netZentryEL DXI, POLYCLONAL ANTIBODY CORTISOL ASSAY. Reference range: AM 6 - 24 ug/dl PM <10 ug/dlThyrotropin [Units/volume] in Serum or PlasmaOrdered By: Aries Chavez on 96-18-0927FDW Qn23.15 m[IU]/LHigh 0.45-5.33[facility] CenterComment on above:Performed By: #### T4F, TSH3, JER, CMP #### [address] #### ACTH #### [facility] ,Thyroxine (T4) free [Mass/volume] in Serum or PlasmaOrdered By: Aries Chavez on 50-17-7100Sjhi T4 [Mass/Vol]0.91 ng/dLNormal0.61-1.12[facility] CenterComment on above:Performed By: #### T4F, TSH3, JER, CMP #### [facility] [address] #### ACTH #### [facility] ,Absolute reticulocyte countOrdered By: Aries Chavez on 12-28-2023 Reticulocytes (Bld) [#/Vol]0.068 10*6/uL0.024-0.084L[facility] Medical CenterAlanine aminotransferase [Enzymatic activity/volume] in Serum or Plasma Ordered By: Aries Chavez on 04-62-7125REH [Catalytic activity/Vol]23 U/L 7-52[facility] Medical CenterAlbumin [Mass/volume] in Serum or Plasma by Bromocresol green (BCG) dye binding methoOrdered By: Aries Chavez on 24-60-0120Vdzoeii BCG dye [Mass/Vol]3.8 g/dL3.5-5.7FSheltering Arms HospitalAlkaline phosphatase [Enzymatic activity/volume] in Serum or PlasmaOrdered By: Aries Chavez on 46-46-4670VQR [Catalytic activity/Vol]93 U/L34-104 [facility] Medical CenterAspartate aminotransferase [Enzymatic activity/volume] in Serum or PlasmaOrdered By: Aries Chavez on 12-28-2023 AST [Catalytic activity/Vol]25 U/U73-39IlyebgbyqLakehealth [facility] Center Basophils Auto (Bld) [#/Vol]Ordered By: Aries Chavez on 71-71-6155Simeyrpdj (Bld) [#/Vol]0.2 10*3/uL0.0-0.2FSheltering Arms HospitalBasophils/100 WBC Auto (Bld)Ordered By: Aries Chavez on 39-98-9278Vepauzbtp/100 WBC (Bld) 2.8 %.[facility] CenterBilirubin.total [Mass/volume] in Serum or PlasmaOrdered By: Aries Chavez on 72-23-2307Hymjfabey [Mass/Vol]0.4 mg/dL 0.3-1.0[facility] CenterCalcium [Mass/volume] in Serum or Plasma Ordered By: Aries Chavez on 35-11-2028Wpzzleu [Mass/Vol]9.5 mg/dL8.6-10.3 [facility] CenterCarbon dioxide, total [Moles/volume] in Serum or PlasmaOrdered By: Aries Chavez on 53-51-7011UB3 [Moles/Vol]29.5 mmol/L 21.0-31.0[facility] CenterChloride [Moles/volume] in Serum or PlasmaOrdered By: Aries Chavez on 69-94-0758Tkrduheb [Moles/Vol]94 mmol/L 98-107[facility] CenterCreatinine [Mass/volume] in Serum or PlasmaOrdered By: Aries Chavez on 12-14-8751Jugngpoucx [Mass/Vol]0.77 mg/dL 0.60-1.20[facility] CenterEosinophils Auto (Bld) [#/Vol]Ordered By: Aries Chavez on 57-10-0641Wwmihxlwdte (Bld) [#/Vol]0.5 10*3/uL0.0-0.45 [facility] CenterEosinophils/100 WBC Auto (Bld)Ordered By: Aries Chavez on 10-89-6082Wamghzdjpti/100 WBC (Bld)6.4 %.[facility] CenterErythrocyte distribution width Auto (RBC) [Ratio]Ordered By: Aries Chavez on 48-77-7444Afhddkjphrz distribution width (RBC) [Ratio]18.2 %11.9-15.3FSheltering Arms HospitalFerritin [Mass/volume] in Serum or PlasmaOrdered By: Rogers Mono on 29-33-0763Lwldhxni [Mass/Vol]397.8 ng/mLHigh 11.0-306.8[facility] CenterFerritin [Mass/Vol]Ferritin [Mass/volume] in Serum or QhahkhNinp31.0-306.8[facility] Folate [Mass/volume] in Serum or PlasmaOrdered By: Aries Chavez on 54-82-6913Nftewc [Mass/Vol]13.7 ng/mL>5.9[facility] Comment on above:Folate reference range: >5.9 ng/mlThe WHO technical consultation on folate and vitamin d30grvywuafeqpu has determined that folate concentrations lessthan 4 ng/ml are considered deficient.Folate [Mass/Vol]Folate [Mass/volume] in Serum or Plasma>5.9[facility] CenterComment on above:Folate reference range: >5.9 ng/mlThe WHO technical consultation on folate and vitamin p91sublvxxrtqdi has determined that folate concentrations lessthan 4 ng/ml are considered deficient.Globulin Calc (S) [Mass/Vol]Ordered By: Aries Chavez on 67-68-8332Ggrefqpv (S) [Mass/Vol]4.0 g/dLLakehealth Tripoint Medical CenterGlucose [Mass/volume] in Serum or PlasmaOrdered By: Aries Chavez on 28-61-4917Vefvwqb [Mass/Vol]95 mg/lX01-550SkhjwsjlqLakehealth Tripoint Medical CenterComment on above:ADA recommended reference rangeRandom Glucose Reference Range is dependent on time and content of last meal. Glucose of more than 200 mg/dL in a nonstressed, ambulatory subject supports the diagnosisof Diabetes Mellitus.Hematocrit Auto (Bld) [Volume fraction]Ordered By: Aries Chavez on 92-79-2193Rtbwqleyyt (Bld) [Volume fraction]34.9 %34.0-46.4 [facility] CenterHemoglobin [Mass/volume] in BloodOrdered By: Aries Chavez on 29-86-9707Mczcucorko (Bld) [Mass/Vol]11.4 g/dL11.8-15.4 [facility] CenterIron [Mass/volume] in Serum or PlasmaOrdered By: Aries Chavez on 06-45-3609Grxy [Mass/Vol]144 ug/vQ35-890EwkighnrbLakehealth Tripoint Medical CenterIron [Mass/Vol]Iron [Mass/volume] in Serum or Plasma 50-212[facility] CenterIron binding capacity [Mass/volume] in Serum or PlasmaOrdered By: Aries Chavez on 81-59-0459Ywwu binding capacity [Mass/Vol]311 ug/xJ559-018OnyrhksepLakehealth Tripoint Medical CenterIron saturation [Mass Fraction] in Serum or PlasmaOrdered By: Aries Chavez on 01-55-1716Muec saturation [Mass fraction]46.3 %20-50[facility] CenterLactate dehydrogenase [Enzymatic activity/volume] in Serum or Plasma by Lactate to py Ordered By: Aries Chavez on 70-11-6208UGA Lactate to pyruvate reaction [Catalytic activity/Vol]135 U/SAru141-634LyzlqlbxyLakehealth Tripoint Medical CenterLD Lactate to pyruvate reaction [Catalytic activity/Vol]Lactate dehydrogenase [Enzymatic activity/volume] in Serum or Plasma by Lactate to tpEcl989-374 [facility] CenterLeukocytes [#/volume] corrected for nucleated erythrocytes in Blood by Automated counOrdered By: Aries Chavez on 23-79-8339LGJ corrected for nucl RBC Auto (Bld) [#/Vol]7.6 10*3/uL3.8-11.6 [facility] CenterLymphocytes Auto (Bld) [#/Vol]Ordered By: Aries Chavez on 37-06-6165Jlfttxphhxe (Bld) [#/Vol]1.3 10*3/uL1.00-4.8 [facility] CenterLymphocytes/100 WBC Auto (Bld)Ordered By: Aries Chavez on 18-11-0605Mrrmqhwosni/100 WBC (Bld)17.1 %.[facility] Auto (RBC) [Entitic mass]Ordered By: Aries Chavez on 18-47-0516OJS (RBC) [Entitic mass]27.4 pg24.7-34.3FSelect Medical Specialty Hospital [facility], IncHC Auto (RBC) [Mass/Vol]Ordered By: Aries Chavez on 64-97-9758EKQW (RBC) [Mass/Vol]32.6 g/dL32.0-35.0[facility] CenterMCV Auto (RBC) [Entitic vol]Ordered By: Aries Chavez on 30-64-9715OLW (RBC) [Entitic vol]84.1 bV24-624GlgyrassmLakehealth Tripoint Medical CenterMonocytes Auto (Bld) [#/Vol]Ordered By: Aries Chavez on 32-91-9061Buuwgrzdt (Bld) [#/Vol] 0.6 10*3/uL0.0-0.8[facility] CenterMonocytes/100 WBC Auto (Bld) Ordered By: Aries Chavez on 63-65-8498Bddxqmytv/100 WBC (Bld)8.1 %. [facility] CenterNeutrophils Auto (Bld) [#/Vol]Ordered By: Aries Chavez on 71-61-8667Diyulmfjsfh (Bld) [#/Vol]5.0 10*3/uL1.8-7.7 [facility] CenterNeutrophils/100 WBC Auto (Bld)Ordered By: Aries Chavez on 63-69-4025Lrldefnjqtp/100 WBC (Bld)65.6 %.[facility] CenterNo Panel InformationOrdered By: Aries Chavez on 60-25-8662Zslugybkbrhjgpwgrke Gjgjntj04.2 pg/mL7.2-63.3FSheltering Arms HospitalComment on above:ACTH reference interval for samples collected between 7 and10 AM.Performed at: - Lab[address] [id number] Director: Juan Hendricks PhD, Phone: [phone] GFR (CKD-EPI)> 60.0 mL/MinLakehealth Tripoint Medical CenterPharmacy Creatinine Clearance (Chem59.72[facility] CenterNucleated erythrocytes [Presence] in Blood by Automated countOrdered By: Aries Chavez on 52-42-9630Hyikxlhre RBC Auto Ql (Bld)0.1 /100{WBC}0-0.5FSheltering Arms HospitalPlatelet mean volume Auto (Bld) [Entitic vol]Ordered By: Aries Chavez on 82-49-3861Owxzydkn mean volume (Bld) [Entitic vol]8.1 fL6.3-10.7 [facility] CenterPlatelets Auto (Bld) [#/Vol]Ordered By: Aries Chavez on 65-00-7545Jmpbmqdbk (Bld) [#/Vol]344 10*3/aA740-152GlptgpunzLakehealth Tripoint Medical CenterPotassium [Moles/volume] in Serum or PlasmaOrdered By: Aries Chavez on 70-34-5808Xllplbcrr [Moles/Vol]4.8 mmol/L3.5-5.1FSheltering Arms HospitalProtein [Mass/volume] in Serum or PlasmaOrdered By: Aries Chavez on 64-34-8719Uhtpcfr [Mass/Vol]7.8 g/dL6.4-8.9[facility] CenterRBC Auto (Bld) [#/Vol]Ordered By: Aries Chavez on 41-02-2159QFT (Bld) [#/Vol]4.15 10*6/uL3.60-5.00[facility] CenterRandom cortisol measurementOrdered By: Aries Chavez on 12-28-2023 Cortisol [Mass/Vol]13.7 ug/dLLakehealth Tripoint Medical CenterComment on above: [facility] Laboratory lamp shade assembler and method:AMRITA Angelpc Global SupportEL DXI, POLYCLONAL ANTIBODY CORTISOL ASSAY.Reference range: AM 6 - 24 ug/dl PM <10 ug/dl Reticulocytes [#/volume] in BloodOrdered By: Aries Chavez on 12-28-2023 Reticulocytes (Bld) [#/Vol]Absolute reticulocyte count0.024-0.084[facility] CenterReticulocytes/100 RBC Auto (Bld)Ordered By: Aries Chavez on 89-05-5249Ibiltqsdovzpd/100 RBC (Bld)1.6 %High0.5-1.5FSheltering Arms HospitalReticulocytes/100 RBC (Bld)Reticulocyte % autoHigh0.5-1.5 [facility] Centererum or plasma albumin/globulin mass ratio Ordered By: Aries Chavez on 43-36-6193Felpnnh/Globulin [Mass ratio]1.0 {ratio}[facility] Centererum or plasma anion gap determination Ordered By: Aries Chavez on 25-43-8683Lbshw gap [Moles/Vol]9.3 mmol/L 6.0-15.0[facility] Centererum or plasma erythropoietin (EPO) measurement (units/volume)Ordered By: Aries Chavez on 12-28-2023 Erythropoietin (EPO) Qn3.5 mIU/mL2.6-18.5FSheltering Arms Hospital Comment on above:[employer] DxI 800 Immunoassay SystemValues obtained with different assay methods or kits cannotbe used interchangeably. Results cannot be interpreted asabsolute evidence of the presence or absence of malignantdisease.Performed at: [facility] [address] [id number] Director: Juan Hendricks PhD, Phone: [phone] (EPO) QnSerum or plasma erythropoietin (EPO) measurement (units/volume)2.6-18.5 [facility] CenterComment on above:[employer] DxI 800 Immunoassay SystemValues obtained with different assay methods or kits cannotbe used interchangeably. Results cannot be interpreted asabsolute evidence of the presence or absence of malignantdisease.Performed at: [facility] [address] [id number] Director: Juan Hendricks PhD, Phone: [phone] or plasma iron binding capacity measurement (mass/volume)Ordered By: Aries Chavez on 95-60-3263Iqkh binding capacity [Mass/Vol]Iron binding capacity [Mass/volume] in Serum or Zvgxay412-498HzayhziypAdams County Regional Medical Centererum or plasma iron saturation measurement (mass fraction)Ordered By: Aries Chavez on 76-58-4831Olxm saturation [Mass fraction]Iron saturation [Mass Fraction] in Serum or Anmhgv39-52UookpnhynAdams County Regional Medical Centerodium [Moles/volume] in Serum or PlasmaOrdered By: Aries Chavez on 12-28-2023 Sodium [Moles/Vol]128 mmol/J849-440WopvdcpymLakehealth Tripoint Medical CenterThyrotropin [Units/volume] in Serum or PlasmaOrdered By: Aries Chavez on 78-77-7299SFC Qn18.92 m[IU]/L0.45-5.33[facility] CenterThyroxine (T4) free [Mass/volume] in Serum or PlasmaOrdered By: Aries Chavez on 23-20-6755Jzoz T4 [Mass/Vol]0.37 ng/dL0.61-1.12[facility] CenterTransferrin [Mass/volume] in Serum or PlasmaOrdered By: Aries Chavez on 12-28-2023 Transferrin [Mass/Vol]222 mg/gB509-715QevzmjvkmLakehealth Tripoint Medical Center Transferrin [Mass/Vol]Transferrin [Mass/volume] in Serum or Wimniy834-436 [facility] CenterUrea nitrogen [Mass/volume] in Serum or Plasma Ordered By: Aries Chavez on 82-30-8755Dizc nitrogen [Mass/Vol]14 mg/dL7- [facility] CenterVitamin B12 ser/plasOrdered By: Aries Chavez on 54-45-3322Gtzvsieaw (Vitamin B12) [Mass/Vol]333 pg/nB683-495 [facility] CenterCobalamin (Vitamin B12) [Mass/Vol]Vitamin B12 ser/kiid099-057HvmyytsqgLakehealth Tripoint Medical CenterWBC Auto (Bld) [#/Vol]Ordered By: Aries Chavez on 17-09-4802FLL (Bld) [#/Vol]7.6 10*3/uL3.8-11.6FSheltering Arms HospitalAlanine aminotransferase [Enzymatic activity/volume] in Serum or PlasmaOrdered By: Aries Chavez on 77-07-7774QXR [Catalytic activity/Vol]25 U/L7-52[facility] CenterAlbumin [Mass/volume] in Serum or Plasma by Bromocresol green (BCG) dye binding methoOrdered By: Aries Chavez on 17-41-6508Npummov BCG dye [Mass/Vol]3.3 g/dL3.5-5.7FSheltering Arms HospitalAlkaline phosphatase [Enzymatic activity/volume] in Serum or PlasmaOrdered By: Aries Chavez on 08-09-0138AGO [Catalytic activity/Vol] 109 U/L63-409JkkknebcfLakehealth Tripoint Medical CenterAspartate aminotransferase [Enzymatic activity/volume] in Serum or PlasmaOrdered By: Aries Chavez on 54-96-5838KEC [Catalytic activity/Vol]24 U/W51-57NztryiycjLakehealth Tripoint Medical CenterBasophils Auto (Bld) [#/Vol]Ordered By: Aries Chavez on 11-15-2023 Basophils (Bld) [#/Vol]0.2 10*3/uL0.0-0.2FSheltering Arms Hospital Basophils/100 WBC Auto (Bld)Ordered By: Aries Chavez on 11-15-2023 Basophils/100 WBC (Bld)2.9 %.[facility] CenterBilirubin.total [Mass/volume] in Serum or PlasmaOrdered By: Aries Chavez on 11-15-2023 Bilirubin [Mass/Vol]0.4 mg/dL0.3-1.0[facility] CenterCBC W Auto Differential panel (Bld)on 62-84-6529Afcqsfmau (Bld) [#/Vol]0.2 10*3/uL0.0 - 0.2 10*3/uLNOMS HealthcareBasophils/100 WBC Manual cnt (Syn fld)2.9 %.[facility] HealthcareEosinophils (Bld) [#/Vol]0.4 10*3/uL0.0 - 0.45 10*3/uLNOMS Healthcare Eosinophils/100 WBC Manual cnt (Syn fld)5.2 %.[facility] HealthcareErythrocyte distribution width (RBC) [Ratio]16.8 %High11.9 - 15.3 %[facility] HealthcareHematocrit (Bld) [Volume fraction]30.3 %Low34.0 - 46.4 %[facility] HealthcareHemoglobin (Bld) [Mass/Vol]9.7 g/dLLow11.8 - 15.4 g/dLNONC HealthcareInterpretation and review of laboratory resultsAbnormalNONC HealthcareLymphocytes (Bld) [#/Vol]1.7 10*3/uL 1.00 - 4.8 10*3/uLNOMS HealthcareLymphocytes/100 WBC Manual cnt (Syn fld)25.4 %. [facility] CenterH (RBC) [Entitic mass]26.4 pg24.7 - 34.3 pgNOMoberly Regional Medical CenterHC (RBC) [Mass/Vol]32.0 g/dL32.0 - 35.0 g/dLNONC HealthcareMCV (RBC) [Entitic vol] 82.7 fL80 - 100 fLNOMS HealthcareMonocytes (Bld) [#/Vol]0.8 10*3/uL0.0 - 0.8 10*3/uLNOMS HealthcareMonocytes+Macrophages/100 WBC Manual cnt (Syn fld)11.6 %. [facility]OMS HealthcareNeutrophils (Bld) [#/Vol]3.8 10*3/uL1.8 - 7.7 10*3/uLNOMS HealthcareNeutrophils/100 WBC Manual cnt (Syn fld)54.9 %.NOMS HealthcareNRBC0.0 /100{WBC}0 - 0.5 /100{WBC}[facility]OM[facility] HealthcarePlatelet mean volume (Bld) [Entitic vol]7.5 fL6.3 - 10.7 fLNOMS HealthcarePlatelets (Bld) [#/Vol]509 10*3/oFPada529 - 450 10*3/uLNOMS HealthcareRBC LM.HPF (Urine sed) [#/Area]3.67 /[HPF]3.60 - 5.00NONC HealthcareWBC (Bld) [#/Vol]6.9 10*3/uL3.8 - 11.6 10*3/uLNOMS Healthcare WBC LM.HPF (Urine sed) [#/Area]6.9 10*3/uL3.8 - 11.6 10*3/uLNOCox Walnut Lawn HealthcareCalcium [Mass/volume] in Serum or PlasmaOrdered By: Aries Chavez on 54-14-7391Lrsnblg [Mass/Vol]9.8 mg/dL8.6-10.3FSheltering Arms HospitalCarbon dioxide, total [Moles/volume] in Serum or PlasmaOrdered By: Aries Chavez on 71-64-4861PI8 [Moles/Vol]28.7 mmol/L21.0-31.0[facility] CenterChloride [Moles/volume] in Serum or PlasmaOrdered By: Aries Chavez on 16-07-0122Npqpqjas [Moles/Vol]101 mmol/U29-156WpgnubxigLakehealth Tripoint Medical CenterCreatinine [Mass/volume] in Serum or PlasmaOrdered By: Aries Chavez on 67-12-3923Kkrecbhniy [Mass/Vol]0.71 mg/dL0.60-1.20[facility] CenterEosinophils Auto (Bld) [#/Vol]Ordered By: Aries Chavez on 77-33-9143Bldzyisahpg (Bld) [#/Vol]0.4 10*3/uL0.0-0.45[facility] CenterEosinophils/100 WBC Auto (Bld)Ordered By: Aries Chavez on 85-87-1661Venhhxsvydu/100 WBC (Bld)5.2 %.[facility] CenterErythrocyte distribution width Auto (RBC) [Ratio]Ordered By: Aries Chavez on 58-49-2934Eupcxcsqwlg distribution width (RBC) [Ratio]16.8 % 11.9-15.3FSheltering Arms HospitalGlobulin Calc (S) [Mass/Vol]Ordered By: Aries Chavez on 41-96-4609Pvvqoenm (S) [Mass/Vol]4.6 g/dLLakehealth Tripoint Medical CenterGlucose [Mass/volume] in Serum or PlasmaOrdered By: Aries Chavez on 49-32-3692Lumsqax [Mass/Vol]100 mg/yX28-399UmvoqikteLakehealth Tripoint Medical CenterComment on above:ADA recommended reference rangeRandom Glucose Reference Range is dependent on time and content of last meal. Glucose of more than 200 mg/dL in a nonstressed, ambulatory subject supports the diagnosisof Diabetes Mellitus.Hematocrit Auto (Bld) [Volume fraction]Ordered By: Aries Chavez on 42-83-0367Edcowvnknd (Bld) [Volume fraction]30.3 %34.0-46.4 [facility] CenterHemoglobin [Mass/volume] in BloodOrdered By: Aries Chavez on 95-32-1202Jxgcjulzec (Bld) [Mass/Vol]9.7 g/dL11.8-15.4 [facility] CenterLeukocytes [#/volume] corrected for nucleated erythrocytes in Blood by Automated counOrdered By: Aries Chavez on 17-05-3685JTS corrected for nucl RBC Auto (Bld) [#/Vol]6.9 10*3/uL3.8-11.6 [facility] CenterLymphocytes Auto (Bld) [#/Vol]Ordered By: Aries Chavez on 74-69-2523Qnjojueidrz (Bld) [#/Vol]1.7 10*3/uL1.00-4.8 [facility] CenterLymphocytes/100 WBC Auto (Bld)Ordered By: Aries Chavez on 52-24-5645Rkphyehazew/100 WBC (Bld)25.4 %.[facility] Auto (RBC) [Entitic mass]Ordered By: Aries Chavez on 74-13-1823PJB (RBC) [Entitic mass]26.4 pg24.7-34.3FSheltering Arms HospitalMCHC Auto (RBC) [Mass/Vol]Ordered By: Aries Chavez on 23-11-2347JMDW (RBC) [Mass/Vol]32.0 g/dL32.0-35.0[facility] CenterMCV Auto (RBC) [Entitic vol]Ordered By: Aries Chavez on 82-02-9924EXM (RBC) [Entitic vol]82.7 iO80-510ZajrxaxpkLakehealth Tripoint Medical CenterMonocytes Auto (Bld) [#/Vol]Ordered By: Aries Chavez on 40-92-2365Pkqhilxow (Bld) [#/Vol] 0.8 10*3/uL0.0-0.8[facility] CenterMonocytes/100 WBC Auto (Bld) Ordered By: Aries Chavez on 48-81-8421Dzopvpugj/100 WBC (Bld)11.6 %. [facility] CenterNeutrophils Auto (Bld) [#/Vol]Ordered By: Aries Chavez on 54-53-0687Vgikrifpqgk (Bld) [#/Vol]3.8 10*3/uL1.8-7.7 [facility] CenterNeutrophils/100 WBC Auto (Bld)Ordered By: Aries Chavez on 23-46-6217Elkjsjzkytc/100 WBC (Bld)54.9 %.[facility] CenterNo Panel InformationOrdered By: Aries Chavez on 84-11-8009Ntjvumomytffuapzaqp Cewnzjt96.5 pg/mL7.2-63.3FSheltering Arms HospitalComment on above:ACTH reference interval for samples collected between 7 and10 AM.Performed at: [facility] [place] [id number] Director: Juan Hendricks PhD, Phone: [phone] GFR (CKD-EPI)> 60.0 mL/MinLakehealth Tripoint Medical CenterPharmacy Creatinine Clearance (Chem65.11[facility] CenterNucleated erythrocytes [Presence] in Blood by Automated countOrdered By: Aries Chavez on 36-46-7182Uopplaogo RBC Auto Ql (Bld)0.0 /100{WBC}0-0.5FSheltering Arms HospitalPlatelet mean volume Auto (Bld) [Entitic vol]Ordered By: Aries Chavez on 22-20-1591Babjqffg mean volume (Bld) [Entitic vol]7.5 fL6.3-10.7 [facility] CenterPlatelets Auto (Bld) [#/Vol]Ordered By: Aries Chavez on 62-47-2252Ykdshlxvy (Bld) [#/Vol]509 10*3/mY304-744FzdpfzbboLakehealth Tripoint Medical CenterPotassium [Moles/volume] in Serum or PlasmaOrdered By: Aries Chavez on 41-26-6643Aelhshgon [Moles/Vol]4.8 mmol/L3.5-5.1FSheltering Arms HospitalProtein [Mass/volume] in Serum or PlasmaOrdered By: Aries Chavez on 78-98-9707Ngbdxid [Mass/Vol]7.9 g/dL6.4-8.9[facility] CenterRBC Auto (Bld) [#/Vol]Ordered By: Aries Chavez on 69-39-4035RSG (Bld) [#/Vol]3.67 10*6/uL3.60-5.00[facility] CenterRandom cortisol measurementOrdered By: Aries Chavez on 11-15-2023 Cortisol [Mass/Vol]14.2 ug/dLLakehealth Tripoint Medical CenterComment on above: [facility] Laboratory lamp shade assembler and method:MARITA [employer] DXI, POLYCLONAL ANTIBODY CORTISOL ASSAY.Reference range: AM 6 - 24 ug/dl PM <10 ug/dlSerum or plasma albumin/globulin mass ratioOrdered By: Aries Chavez on 11-15-2023 Albumin/Globulin [Mass ratio]0.7 {ratio}[facility] Centererum or plasma anion gap determinationOrdered By: Aries Chavez on 11-15-2023 Anion gap [Moles/Vol]10.1 mmol/L6.0-15.0[facility] Centerodium [Moles/volume] in Serum or PlasmaOrdered By: Aries Chavez on 11-15-2023 Sodium [Moles/Vol]135 mmol/X347-394WbodgoqbzLakehealth Tripoint Medical CenterThyrotropin [Units/volume] in Serum or PlasmaOrdered By: Aries Chavez on 36-52-6784FIY Qn0.01 m[IU]/L0.45-5.33[facility] CenterThyroxine (T4) free [Mass/volume] in Serum or PlasmaOrdered By: Aries Chavez on 61-44-3752Cuji T4 [Mass/Vol]2.10 ng/dL0.61-1.12[facility] CenterUrea nitrogen [Mass/volume] in Serum or PlasmaOrdered By: Aries Chavez on 45-26-3005Eobl nitrogen [Mass/Vol]16 mg/dL7-25[facility] CenterWBC Auto (Bld) [#/Vol]Ordered By: Aries Chavez on 22-03-4384IUO (Bld) [#/Vol]6.9 10*3/uL 3.8-11.6FSheltering Arms HospitalFerritin [Mass/volume] in Serum or PlasmaOrdered By: Vannessa Perales on 73-78-1660Vgjnvixg [Mass/Vol]994.8 ng/mL11.0-306.8[facility] CenterIron [Mass/volume] in Serum or PlasmaOrdered By: Vannessa Perales on 58-10-4863Wpii [Mass/Vol]26 ug/kF81-238 [facility] CenterIron binding capacity [Mass/volume] in Serum or PlasmaOrdered By: Vannessa Perales on 41-05-0262Tasr binding capacity [Mass/Vol]239 ug/pA207-298MkfrcimtdLakehealth Tripoint Medical CenterIron saturation [Mass Fraction] in Serum or PlasmaOrdered By: Vannessa Perales on 75-11-3076Muqp saturation [Mass fraction]10.9 %20-50[facility] Transferrin [Mass/volume] in Serum or PlasmaOrdered By: Vannessa Perales on 51-21-7522Ccvxzmirhzc [Mass/Vol]171 mg/bI096-075XcnallhqgLakehealth Tripoint Medical CenterAlanine aminotransferase [Enzymatic activity/volume] in Serum or Plasma Ordered By: Aries Chavez on 25-66-9139NZD [Catalytic activity/Vol]67 U/L 7-52[facility] CenterAlbumin [Mass/volume] in Serum or Plasma by Bromocresol green (BCG) dye binding methoOrdered By: Aries Chavez on 83-88-4548Vvchycu BCG dye [Mass/Vol]3.4 g/dL3.5-5.7FSheltering Arms HospitalAlkaline phosphatase [Enzymatic activity/volume] in Serum or PlasmaOrdered By: Aries Chavez on 05-38-7451AYJ [Catalytic activity/Vol]113 U/L34-104 [facility] CenterAspartate aminotransferase [Enzymatic activity/volume] in Serum or PlasmaOrdered By: rAies Chavez on 10-04-2023 AST [Catalytic activity/Vol]22 U/V12-32PaofruwbxLakehealth Tripoint Medical Center Basophils Auto (Bld) [#/Vol]Ordered By: Aries Chavez on 25-24-8956Qyiciicmj (Bld) [#/Vol]0.1 10*3/uL0.0-0.2FSheltering Arms HospitalBasophils/100 WBC Auto (Bld)Ordered By: Aries Chavez on 75-29-9842Nqeeodlvx/100 WBC (Bld) 2.3 %.[facility] CenterBilirubin.total [Mass/volume] in Serum or PlasmaOrdered By: Aries Chavez on 83-42-5217Bcrdnzbud [Mass/Vol]0.3 mg/dL 0.3-1.0[facility] CenterCalcium [Mass/volume] in Serum or Plasma Ordered By: Aries Chavez on 32-55-9489Aikekdy [Mass/Vol]8.9 mg/dL8.6-10.3 [facility] CenterCarbon dioxide, total [Moles/volume] in Serum or PlasmaOrdered By: Aries Chavez on 30-41-9835NO3 [Moles/Vol]26.2 mmol/L 21.0-31.0[facility] CenterChloride [Moles/volume] in Serum or PlasmaOrdered By: Aries Chavez on 92-05-7565Aytuidol [Moles/Vol]94 mmol/L 98-107[facility] CenterCreatinine [Mass/volume] in Serum or PlasmaOrdered By: Aries Chavez on 71-35-0165Sjvescmubm [Mass/Vol]0.75 mg/dL 0.60-1.20[facility] CenterEosinophils Auto (Bld) [#/Vol]Ordered By: Aries Chavez on 52-57-6667Btfvkulxbgn (Bld) [#/Vol]0.2 10*3/uL0.0-0.45 [facility] CenterEosinophils/100 WBC Auto (Bld)Ordered By: Aries Chavez on 80-77-2574Egiauwlmzbe/100 WBC (Bld)2.8 %.[facility] CenterErythrocyte distribution width Auto (RBC) [Ratio]Ordered By: Aries Chavez on 07-46-4963Quhxnwwqjao distribution width (RBC) [Ratio]18.4 %11.9-15.3FSheltering Arms HospitalGlobulin Calc (S) [Mass/Vol]Ordered By: Aries Chavez on 62-49-6379Cckneohn (S) [Mass/Vol]4.5 g/dLLakehealth Tripoint Medical CenterGlucose [Mass/volume] in Serum or PlasmaOrdered By: Aries Chavez on 06-19-6667Gdgskpb [Mass/Vol]101 mg/iB67-259NsaqdzradLakehealth Tripoint Medical CenterComment on above:ADA recommended reference rangeRandom Glucose Reference Range is dependent on time and content of last meal. Glucose of more than 200 mg/dL in a nonstressed, ambulatory subject supports the diagnosisof Diabetes Mellitus.Hematocrit Auto (Bld) [Volume fraction]Ordered By: Aries Chavez on 30-01-5258Tufheodqid (Bld) [Volume fraction]26.2 %34.0-46.4 [facility] CenterHemoglobin [Mass/volume] in BloodOrdered By: Aries Chavez on 93-52-0152Xcmeaxsjgq (Bld) [Mass/Vol]8.4 g/dL11.8-15.4 [facility] CenterLeukocytes [#/volume] corrected for nucleated erythrocytes in Blood by Automated counOrdered By: Aries Chavez on 71-86-3952VAJ corrected for nucl RBC Auto (Bld) [#/Vol]5.8 10*3/uL3.8-11.6 [facility] CenterLymphocytes Auto (Bld) [#/Vol]Ordered By: Aries Chavez on 05-33-8767Zuibevaohgs (Bld) [#/Vol]1.2 10*3/uL1.00-4.8 [facility] CenterLymphocytes/100 WBC Auto (Bld)Ordered By: Aries Chavez on 35-58-6336Jyxrwtmsfih/100 WBC (Bld)21.7 %.[facility] Auto (RBC) [Entitic mass]Ordered By: Aries Chavez on 05-10-3199OKH (RBC) [Entitic mass]25.3 pg24.7-34.3FSheltering Arms HospitalMCHC Auto (RBC) [Mass/Vol]Ordered By: Aries Chavez on 00-56-6103BAQE (RBC) [Mass/Vol]32.0 g/dL32.0-35.0[facility] CenterMCV Auto (RBC) [Entitic vol]Ordered By: Aries Chavez on 72-09-4160VMP (RBC) [Entitic vol]79.1 cY34-172GugxqlliuLakehealth Tripoint Medical CenterMonocytes Auto (Bld) [#/Vol]Ordered By: Aries Chavez on 42-34-9705Grefcukav (Bld) [#/Vol] 0.7 10*3/uL0.0-0.8[facility] CenterMonocytes/100 WBC Auto (Bld) Ordered By: Aries Chavez on 79-06-5167Hhijxvqcx/100 WBC (Bld)11.5 %. [facility] CenterNeutrophils Auto (Bld) [#/Vol]Ordered By: Aries Chavez on 38-46-8591Crzmbeterxr (Bld) [#/Vol]3.6 10*3/uL1.8-7.7 [facility] CenterNeutrophils/100 WBC Auto (Bld)Ordered By: Aries Chavez on 92-33-8832Otoqvyacqkt/100 WBC (Bld)61.7 %.[facility] CenterNo Panel InformationOrdered By: Aries Chavez on 19-47-7112Jsakgmkgxkadlvdrwhi Ltchlow31.4 pg/mL7.2-63.3FSheltering Arms HospitalComment on above:ACTH reference interval for samples collected between 7 and10 AM.Performed at: [facility] [id number] Director: Juan Hendricks PhD, Phone: [phone] GFR (CKD-EPI)> 60.0 mL/MinLakehealth Tripoint Medical CenterPharmacy Creatinine Clearance (Chem59.72[facility] CenterNucleated erythrocytes [Presence] in Blood by Automated countOrdered By: Aries Chavez on 03-53-9855Shvidbmmq RBC Auto Ql (Bld)0.1 /100{WBC}0-0.5FSheltering Arms HospitalPlatelet mean volume Auto (Bld) [Entitic vol]Ordered By: Aries Chavez on 11-25-8715Cvfxyttb mean volume (Bld) [Entitic vol]6.8 fL6.3-10.7 [facility] CenterPlatelets Auto (Bld) [#/Vol]Ordered By: Aries Chavez on 03-83-6504Lpsrwazls (Bld) [#/Vol]404 10*3/kJ456-263YdghqltlgLakehealth Tripoint Medical CenterPotassium [Moles/volume] in Serum or PlasmaOrdered By: Aries Chavez on 27-05-9644Ggydumudy [Moles/Vol]4.7 mmol/L3.5-5.1FSheltering Arms HospitalProtein [Mass/volume] in Serum or PlasmaOrdered By: Aries Chavez on 88-01-6808Ertxgkm [Mass/Vol]7.9 g/dL6.4-8.9[facility] CenterRBC Auto (d) [#/Vol]Ordered By: Aries Chavez on 16-36-2358KVN (d) [#/Vol]3.32 10*6/uL3.60-5.00[facility] CenterRandom cortisol measurementOrdered By: Aries Chavez on 10-04-2023 Cortisol [Mass/Vol]12.2 ug/dLLakehealth Tripoint Medical CenterComment on above: [facility] lamp shade assembler and method:TUNJI DXI, POLYCLONAL ANTIBODY CORTISOL ASSAY.Reference range: AM 6 - 24 ug/dl PM <10 ug/dlSerum or plasma albumin/globulin mass ratioOrdered By: Aries Chavez on 10-04-2023 Albumin/Globulin [Mass ratio]0.8 {ratio}[facility] Centererum or plasma anion gap determinationOrdered By: Aries Chavez on 10-04-2023 Anion gap [Moles/Vol]9.5 mmol/L6.0-15.0[facility] Centerodium [Moles/volume] in Serum or PlasmaOrdered By: Aries Chavez on 10-04-2023 Sodium [Moles/Vol]125 mmol/N290-822OlowaflzpLakehealth Tripoint Medical CenterThyrotropin [Units/volume] in Serum or PlasmaOrdered By: Aries Chavez on 75-20-1104EES Qn1.03 m[IU]/L0.45-5.33[facility] CenterThyroxine (T4) free [Mass/volume] in Serum or PlasmaOrdered By: Aries Chavez on 57-03-3525Gbev T4 [Mass/Vol]1.00 ng/dL0.61-1.12[facility] CenterUrea nitrogen [Mass/volume] in Serum or PlasmaOrdered By: Aries Chavez on 41-78-4231Fnlg nitrogen [Mass/Vol]17 mg/dL7-25[facility] CenterWBC Auto (Bld) [#/Vol]Ordered By: Aries Chavez on 39-91-2043GLX (Bld) [#/Vol]5.8 10*3/uL 3.8-11.6FSheltering Arms HospitalAnisocytosis LM Ql (Bld)Ordered By: Aries Chavez on 26-02-9841Lkjagheznuew Ql (Bld)ModerateLakehealth Tripoint Medical CenterAnisocytosis Ql (Bld)Anisocytosis [Presence] in Blood by Light microscopyLakehealth Tripoint Medical CenterAutomated erythrocytes count in urine sediment (number/area)Ordered By: Aries Chavez on 55-82-1217RTH Auto (Urine sed) [#/Area]5-9 [HPF]High0-4FSheltering Arms HospitalAutomated leukocytes count in urine sediment (number/area)Ordered By: Aries Chavez on 15-82-7517YBX Auto (Urine sed) [#/Area]5-9 [HPF]High04FSheltering Arms HospitalBacteria [Presence] in Urine by AutomatedOrdered By: Aries Chavez on 77-70-5889Ugwofufi Auto Ql (U)Bacteria [Presence] in Urine by AutomatedNone SeenLakehealth Tripoint Medical CenterBilirubin Test strip Ql (U) Ordered By: Aries Chavez on 94-19-6857Opzgnxfaq Ql (U)Bilirubin.total [Presence] in Urine by Test stripNegativeL[facility]health [facility] Center Bilirubin Ql (U)NegativeNegativeLakehealth Tripoint Medical CenterColor Auto (U) Ordered By: Aries Chavez on 91-25-7286Iuoks (U)YellowYelTrinity Health SystemColor (U)Color of Urine by AutoYelTrinity Health SystemErythrocytes [#/area] in Urine sediment by Automated countOrdered By: Aries Chavez on 62-39-4639TWQ Auto (Urine sed) [#/Area]Erythrocytes [#/area] in Urine sediment by Automated countHigh0-4FSheltering Arms HospitalHypochromia LM Ql (Bld)Ordered By: Aries Chavez on 09-12-2023 Hypochromia Ql (Bld)ModerateLakehealth Tripoint Medical CenterHypochromia Ql (Bld)Hypochromia [Presence] in Blood by Light microscopyLakehealth Tripoint Medical CenterKetones Auto test strip (U) [Mass/Vol]Ordered By: Aries Chavez on 65-18-7386Okhwdbe (U) [Mass/Vol]NegativeNegativeLakehealth Tripoint Medical CenterKetones (U) [Mass/Vol]Urine ketones measurement by automated test strip (mass/volume)[facility] HospitalLaboratory - Microbiology and Antimicrobial susceptibilityOrdered By: Aries Chavez on 74-74-8364Oamesouk identified Cx Nom (U)[facility] Bacteria identified Cx Nom (U)[facility] CenterLaboratory - UrinalysisOrdered By: Aries Chavez on 03-84-5422Dzvjwjd casts LM Ql (Urine sed)0-8 [LPF]0-8[facility] CenterLeukocytes [#/area] in Urine sediment by Automated countOrdered By: Aries Chavez on 14-30-0540VYP Auto (Urine sed) [#/Area]Leukocytes [#/area] in Urine sediment by Automated countHigh 0-4FSheltering Arms HospitalMicrocytes LM Ql (Bld)Ordered By: Aries Chavez on 33-12-0040Vuqstyibqw Ql (Bld)SlightLakehealth Tripoint Medical CenterMicrocytes Ql (Bld)Microcytes [Presence] in Blood by Light microscopy [facility] CenterNitrite Test strip Ql (U)Ordered By: Aries Chavez on 82-89-5973Whpdzfj Ql (U)Nitrite [Presence] in Urine by Test strip NegativeLakehealth Tripoint Medical CenterNitrite Ql (U)NegativeNegUC Medical CenterNo Panel InformationOrdered By: Aries Chavez on 53-61-4558Beivlravljneswaemef Rkajjcr65.9 pg/mL7.2-63.3FSheltering Arms HospitalComment on above:ACTH reference interval for samples collected between 7 and10 AM.Performed at: - [facility] [id number] Director: Juan Hendricks PhD, Phone: [phone] detectionOrdered By: Aries Chavez on 96-09-2322Xobcgrgslf LM Ql (Bld)Slight [facility] CenterOvalocytes LM Ql (Bld)Ovalocyte detection [facility] CenterPlatelet adequacy [Presence] in Blood by Light microscopyOrdered By: Aries Chavez on 23-84-0207Apnjnmvau LM Ql (Bld)Normal NormalLakehealth Tripoint Medical CenterPlatelets LM Ql (Bld)Platelet adequacy [Presence] in Blood by Light microscopyCleveland Clinic Fairview Hospital Platelet morphology finding [Identifier] in BloodOrdered By: Aries Chavez on 74-60-5557Dswqrime morphology finding Nom (Bld)NormalNoAvita Health System Bucyrus HospitalPlatelet morphology finding Nom (Bld)Platelet morphology finding [Identifier] in BloodCleveland Clinic Fairview HospitalPoikilocytosis [Presence] in Blood by Light microscopyOrdered By: Aries Chavez on 36-33-4911Lratfvxfslfucx LM Ql (Bld)[facility] Poikilocytosis LM Ql (Bld)Poikilocytosis [Presence] in Blood by Light microscopy [facility] CenterPolychromasia [Presence] in Blood by Light microscopyOrdered By: Aries Chavez on 84-04-4646Lliuyvehqwmhr LM Ql (Bld) [facility] SpringfieldPolychromasia LM Ql (Bld)Polychromasia [Presence] in Blood by Light microscopyLakehealth Tripoint Medical CenterProtein Auto test strip (U) [Mass/Vol]Ordered By: Aries Chavez on 48-30-5540Pdymfze (U) [Mass/Vol]100 mg/dLHighNegativeLakehealth Tripoint Medical CenterProtein (U) [Mass/Vol]Urine protein measurement by automated test strip (mass/volume)High NegativeLakehealth Tripoint Medical CenterRBC morphologyOrdered By: Aries Chavez on 42-95-4283LFS morphology finding Nom (Bld)N/AFirelands Regional Medical CenterRBC morphology finding Nom (Bld)RBC morphologyAdams County Regional Medical Centerpecific gravity Auto test strip (U) [Rel density]Ordered By: Aries Chavez on 22-87-1674Afqazzdi gravity (U) [Rel density]1.012 1.001-1.030[facility] Centerpecific gravity (U) [Rel density] Specific gravity of Urine by Automated test strip1.001-1.030[facility] Centerquamous epithelial cells detection in urine sediment by light microscopyOrdered By: Aries Chavez on 33-99-0756Swvzurlrrq cells.squamous LM Ql (Urine sed)None seen [HPF]0-[facility]hel[facility] HospitalEpithelial cells.squamous LM Ql (Urine sed)Squamous epithelial cells detection in urine sediment by light microscopy0-[facility] HospitalUrine bacteria detection by automated methodOrdered By: Aries Chavez on 55-19-2884Fbnujcwa Auto Ql (U)None seenNone SeenLakehealth Tripoint Medical CenterUrine clarity by refractometry automatedOrdered By: Aries Chavez on 99-74-7225Qiutsyt Refractometry automated (U)ClearCleUC Medical CenterClarity Refractometry automated (U)Urine clarity by refractometry automatedThe Bellevue HospitalUrine culture routineOrdered By: Aries Chavez on 34-23-1068Wdivgsuc identified Cx Nom (U)2 [facility] HospitalBacteria identified Cx Nom (U)2 [facility] HospitalUrine glucose measurement by automated test strip (mass/volume)Ordered By: rAies Chavez on 68-35-5403Rzpiwwv Auto test strip (U) [Mass/Vol]Normal mg/dLNormalLakehealth Tripoint Medical CenterGlucose Auto test strip (U) [Mass/Vol]Urine glucose measurement by automated test strip (mass/volume)Normal [facility] CenterUrine hemoglobin detection by automated test stripOrdered By: Aries Chavez on 22-89-3570Hvnxfipfsq Auto test strip Ql (U)2+HighNegUC Medical CenterHemoglobin Auto test strip Ql (U)Urine hemoglobin detection by automated test stripHighNegUC Medical CenterUrine leukocyte esterase detection by automated test stripOrdered By: Aries Chavez on 01-77-8059Csphmmrzk esterase Auto test strip Ql (U)2+HighNegativeLakehealth Tripoint Medical CenterLeukocyte esterase Auto test strip Ql (U)Urine leukocyte esterase detection by automated test strip HighNegativeLakehealth Tripoint Medical CenterUrobilinogen Auto test strip (U) [Mass/Vol]Ordered By: Aries Chavez on 90-63-4349Bwhffwpsvkfz (U) [Mass/Vol] Normal mg/dLNormalLakehealth Tripoint Medical CenterUrobilinogen (U) [Mass/Vol] Urine urobilinogen measurement by automated test strip (mass/volume)Normal [facility] CenterWhole blood hypersegmented neutrophils detection by light microscopyOrdered By: Aries Chavez on 09-12-2023 Neutrophils.hypersegmented LM Ql (Bld)SlightLakehealth [facility] Center Neutrophils.hypersegmented LM Ql (Bld)Whole blood hypersegmented neutrophils detection by light microscopyLakehealth Tripoint Medical CenterYeast detection in urine sediment by light microscopyOrdered By: Aries Chavez on 09-12-2023 Yeast LM Ql (Urine sed)None seen [HPF]None SeenLakehealth Tripoint Medical Center Yeast LM Ql (Urine sed)Yeast detection in urine sediment by light microscopyNone SeenLakehealth Tripoint Medical CenterpH Auto test strip (U)Ordered By: Aries Chavez on 28-04-1746jB (U)6.0 [pH]5.0-9.0[facility] CenterpH (U)Urine pH measurement by automated test strip5.0-9.0[facility] CenterActivated partial thromboplastin time (aPTT) in platelet poor plasma by coagulation aOrdered By: Aries Chavez on 82-36-0317fKXD Coag (PPP) [Time] 28.9 s25.1-36.5FSheltering Arms HospitalComment on above:A hematocrit value greater than 55% may lead to inaccurate results in coagulation testing. Patientshaving hematocrit values >55% require a special collection tube for coagulation studies. Please contact the laboratory at [phone] for redraw instructions.INR in Platelet poor plasma by Coagulation assayOrdered By: Aries Chavez on 31-86-1655HHE Coag (PPP) [Relative time]1.1 {INR}[facility] CenterComment on above:INR Therapeutic Range A) Pre- and Peroperative OAT started two weeks before surgery. NOT HIP SURGERY: 1.5 - 2.5 HIP SURGERY: 2 - 3B) Primary and secondary prevention of venous THROMBOSIS: 2 - 3C) Active venous thrombosis, pulmonary embolismand prevention of recurrent venous thrombosis: 2 - 3D) Prevention of arterial thromboembolismincluding patients with mechanical heart valves: 3 - 4.5Platelets Auto (Bld) [#/Vol] Ordered By: Aries Chavez on 87-50-4556Ixrjxmukb (Bld) [#/Vol]368 10*3/uL 150-450[facility] CenterProthrombin time (PT)Ordered By: Aries Chavez on 51-23-9630QX Coag (PPP) [Time]13.1 s9.0-12.9[facility] CenterComment on above:A hematocrit value greater than 55% may lead to inaccurate results in coagulation testing. Patientshaving hematocrit values >55% require a special collection tube for coagulation studies. Please contact the laboratory at [phone] for redraw instructions.Alanine aminotransferase [Enzymatic activity/volume] in Serum or PlasmaOrdered By: Aries Chavez on 75-34-6545PGD [Catalytic activity/Vol]40 U/L7-52[facility] CenterAlbumin [Mass/volume] in Serum or Plasma by Bromocresol green (BCG) dye binding methoOrdered By: Aries Chavez on 74-97-5546Auwyjhv BCG dye [Mass/Vol]3.7 g/dL3.5-5.7FSheltering Arms HospitalAlkaline phosphatase [Enzymatic activity/volume] in Serum or PlasmaOrdered By: Aries Chavez on 79-04-8566BRN [Catalytic activity/Vol]91 U/V07-591PvqsqlzrnLakehealth Tripoint Medical CenterAspartate aminotransferase [Enzymatic activity/volume] in Serum or Plasma Ordered By: Aries Chavez on 63-72-0650RNR [Catalytic activity/Vol]12 U/L 13-39[facility] CenterAutomated erythrocytes count in urine sediment (number/area)Ordered By: Aries Chavez on 23-22-2625VDX Auto (Urine sed) [#/Area]5-9 [HPF]0-4FSheltering Arms HospitalAutomated leukocytes count in urine sediment (number/area)Ordered By: Aries Chavez on 07-31-2023 WBC Auto (Urine sed) [#/Area]None seen [HPF]0-4FSheltering Arms Hospital Basophils Auto (Bld) [#/Vol]Ordered By: Aries Chavez on 11-54-9328Kzqssangj (Bld) [#/Vol]0.2 10*3/uL0.0-0.2FSheltering Arms HospitalBasophils/100 WBC Auto (Bld)Ordered By: Aries Chavez on 38-39-2752Okcxilcqn/100 WBC (Bld) 2.0 %.[facility] CenterBilirubin Test strip Ql (U)Ordered By: Aries Chavez on 46-46-4600Mbsphfdvz Ql (U)See commentNegativeLakehealth Tripoint Medical CenterComment on above:Unable to obtain accurate result due to color interference.Bilirubin.total [Mass/volume] in Serum or PlasmaOrdered By: Aries Chavez on 20-22-3372Qjsmtrtfa [Mass/Vol]0.4 mg/dL0.3-1.0[facility] CenterCalcium [Mass/volume] in Serum or PlasmaOrdered By: Aries Chavez on 66-76-6187Xoqroyy [Mass/Vol]9.6 mg/dL8.6-10.3FSheltering Arms HospitalCarbon dioxide, total [Moles/volume] in Serum or Plasma Ordered By: Aries Chavez on 05-34-6544IG3 [Moles/Vol]24.3 mmol/L21.0-31.0 [facility] CenterChloride [Moles/volume] in Serum or Plasma Ordered By: Aries Chavez on 37-95-4202Zvelgiuv [Moles/Vol]94 mmol/L98-107 [facility] CenterColor Auto (U)Ordered By: Aries Chavez on 42-19-8036Wljjg (U)AmberYellowLakehealth Tripoint Medical CenterCreatinine [Mass/volume] in Serum or PlasmaOrdered By: Aries Chavez on 07-31-2023 Creatinine [Mass/Vol]0.91 mg/dL0.60-1.20[facility] Eosinophils Auto (Bld) [#/Vol]Ordered By: Aries Chavez on 07-31-2023 Eosinophils (Bld) [#/Vol]0.1 10*3/uL0.0-0.45[facility] Eosinophils/100 WBC Auto (Bld)Ordered By: Aries Chavez on 07-31-2023 Eosinophils/100 WBC (Bld)1.8 %.[facility] CenterErythrocyte distribution width Auto (RBC) [Ratio]Ordered By: Aries Chavez on 07-31-2023 Erythrocyte distribution width (RBC) [Ratio]15.4 %11.9-15.3FSheltering Arms HospitalFerritin [Mass/volume] in Serum or PlasmaOrdered By: Aries Chavez on 40-49-8755Wqcjsbiu [Mass/Vol]342.0 ng/mL11.0-306.8[facility] CenterGlobulin Calc (S) [Mass/Vol]Ordered By: Aries Chavez on 36-26-7738Hfvanfcx (S) [Mass/Vol]4.6 g/dLLakehealth Tripoint Medical Center Glucose [Mass/volume] in Serum or PlasmaOrdered By: Aries Chavez on 82-15-1223Ybkraqa [Mass/Vol]105 mg/eN19-341NckqifxixLakehealth Tripoint Medical Center Comment on above:ADA recommended reference rangeRandom Glucose Reference Range is dependent on time and content of last meal. Glucose of more than 200 mg/dL in a nonstressed, ambulatory subject supports the diagnosisof Diabetes Mellitus. Hematocrit Auto (Bld) [Volume fraction]Ordered By: Aries Chavez on 96-13-5083Gtzvnkvdmu (Bld) [Volume fraction]22.5 %34.0-46.4FSheltering Arms HospitalHemoglobin [Mass/volume] in BloodOrdered By: Aries Chavez on 70-46-3654Vstpokucxw (Bld) [Mass/Vol]7.3 g/dL11.8-15.4FSheltering Arms HospitalIron [Mass/volume] in Serum or PlasmaOrdered By: Aries Chavez on 72-80-0291Mmeu [Mass/Vol]24 ug/gX17-918WstukopdwLakehealth Tripoint Medical CenterIron binding capacity [Mass/volume] in Serum or PlasmaOrdered By: Aries Chavez on 73-33-1090Idwo binding capacity [Mass/Vol]304 ug/lT318-609EscunlxauLakehealth Tripoint Medical CenterIron saturation [Mass Fraction] in Serum or PlasmaOrdered By: Aries Chavez on 46-66-2032Emxw saturation [Mass fraction]7.9 %20-50 [facility] CenterKetones Auto test strip (U) [Mass/Vol]Ordered By: Aries Chavez on 88-44-8132Hdvumuc (U) [Mass/Vol]See commentNegative [facility] CenterComment on above:Unable to obtain accurate result due to color interference.Laboratory - Microbiology and Antimicrobial susceptibilityOrdered By: Aries Chavez on 32-57-3929Zwyssyqw identified Cx Nom (U)[facility] CenterBacteria identified Cx Nom (U)[facility] CenterLaboratory - UrinalysisOrdered By: Aries Chavez on 68-56-8967Ccovvsu casts LM Ql (Urine sed)None seen [LPF]0-8[facility] CenterLeukocytes [#/volume] corrected for nucleated erythrocytes in Blood by Automated counOrdered By: Aries Chavez on 88-17-1734BFF corrected for nucl RBC Auto (Bld) [#/Vol]8.2 10*3/uL3.8-11.6FSheltering Arms HospitalLymphocytes Auto (Bld) [#/Vol]Ordered By: Aries Chavez on 07-31-2023 Lymphocytes (Bld) [#/Vol]1.8 10*3/uL1.00-4.8[facility] Lymphocytes/100 WBC Auto (Bld)Ordered By: Aries Chavez on 07-31-2023 Lymphocytes/100 WBC (Bld)22.3 %.[facility] CenterMC Auto (RBC) [Entitic mass]Ordered By: Aries Chavez on 74-76-0445DEU (RBC) [Entitic mass]22.8 pg24.7-34.3FSheltering Arms HospitalMCHC Auto (RBC) [Mass/Vol] Ordered By: Aries Chavez on 52-16-0659PCGR (RBC) [Mass/Vol]32.3 g/dL 32.0-35.0[facility] CenterMCV Auto (RBC) [Entitic vol]Ordered By: Aries Chavez on 43-39-7260QJT (RBC) [Entitic vol]70.8 zR47-257FmppmbypcLakehealth Tripoint Medical CenterMonocytes Auto (Bld) [#/Vol]Ordered By: Aries Chavez on 38-73-5592Kwwxqvxvo (Bld) [#/Vol]0.7 10*3/uL0.0-0.8[facility] CenterMonocytes/100 WBC Auto (Bld)Ordered By: Aries Chavez on 53-57-4328Cixgksjrf/100 WBC (Bld)8.2 %.[facility] Neutrophils Auto (Bld) [#/Vol]Ordered By: Aries Chavez on 07-31-2023 Neutrophils (Bld) [#/Vol]5.4 10*3/uL1.8-7.7FSheltering Arms Hospital Neutrophils/100 WBC Auto (Bld)Ordered By: Aries Chavez on 07-31-2023 Neutrophils/100 WBC (Bld)65.7 %.[facility] Medical CenterNitrite Test strip Ql (U)Ordered By: Aries Chavez on 81-03-3151Meoemug Ql (U)See comment NegativeLakehealth Tripoint Medical CenterComment on above:Unable to obtain accurate result due to color interference.No Panel InformationOrdered By: Aries Chavez on 30-55-5643Xlgvazllv GFR (CKD-EPI)> 60.0 mL/MinLakehealth Tripoint Medical CenterPharmacy Creatinine Clearance (Chem53.24[facility] CenterNucleated erythrocytes [Presence] in Blood by Automated countOrdered By: Aries Chavez on 10-95-1526Fwxactkbx RBC Auto Ql (Bld)0.1 /100{WBC}0-0.5FSheltering Arms HospitalPlatelet mean volume Auto (Bld) [Entitic vol]Ordered By: Aries Chavez on 61-94-7410Jgprslrk mean volume (Bld) [Entitic vol]7.7 fL6.3-10.7FSheltering Arms HospitalPlatelets Auto (Bld) [#/Vol]Ordered By: Aries Chavez on 25-85-8897Plygdvlsk (Bld) [#/Vol] 487 10*3/qF064-205CjfoufchjLakehealth Tripoint Medical CenterPotassium [Moles/volume] in Serum or PlasmaOrdered By: Aries Chavez on 53-69-3806Zmfgmkmlc [Moles/Vol] 5.3 mmol/L3.5-5.1FSheltering Arms HospitalProtein Auto test strip (U) [Mass/Vol]Ordered By: Aries Chavez on 01-79-6794Twkhcrw (U) [Mass/Vol]See commentNegativeLakehealth Tripoint Medical CenterComment on above:Unable to obtain accurate result due to color interference.Protein [Mass/volume] in Serum or PlasmaOrdered By: Aries Chavez on 55-77-0188Daziugz [Mass/Vol]8.3 g/dL 6.4-8.9[facility] CenterRBC Auto (Bld) [#/Vol]Ordered By: Aries Chavez on 65-64-7051DHK (Bld) [#/Vol]3.18 10*6/uL3.60-5.00[facility] Centererum or plasma albumin/globulin mass ratioOrdered By: Aries Chavez on 07-23-2622Wjplwdw/Globulin [Mass ratio]0.8 {ratio}[facility] Centererum or plasma anion gap determinationOrdered By: Aries Chavez on 59-99-8414Pgyiw gap [Moles/Vol]14.0 mmol/L6.0-15.0[facility] Centerodium [Moles/volume] in Serum or PlasmaOrdered By: Aries Chavez on 73-40-4618Fmfdsz [Moles/Vol]127 mmol/O070-401BlufoijwkAdams County Regional Medical Centerpecific gravity Auto test strip (U) [Rel density]Ordered By: Aries Chavez on 90-05-2910Nqzaatop gravity (U) [Rel density]1.015 1.001-1.030[facility] Centerquamous epithelial cells detection in urine sediment by light microscopyOrdered By: Aries Chavez on 07-31-2023 Epithelial cells.squamous LM Ql (Urine sed)0-1 [HPF]0-2FSheltering Arms HospitalTransferrin [Mass/volume] in Serum or PlasmaOrdered By: Aries Chavez on 76-93-7202Uujavvuoiqr [Mass/Vol]217 mg/oV471-675KffjzwmuoLakehealth Tripoint Medical CenterUrea nitrogen [Mass/volume] in Serum or PlasmaOrdered By: Aries Chavez on 67-88-0397Txmn nitrogen [Mass/Vol]15 mg/dL7-25[facility] CenterUrine bacteria detection by automated methodOrdered By: Aries Chavez on 20-36-2795Yhmbwblc Auto Ql (U)None seenNone [facility] CenterUrine clarity by refractometry automatedOrdered By: Aries Chavez on 92-39-0915Klpoyls Refractometry automated (U)TurbidCleUC Medical CenterUrine culture routineOrdered By: Aries Chavez on 16-44-2985Igguhgau identified Cx Nom (U)2 [facility] Bacteria identified Cx Nom (U)2 [facility] HospitalUrine glucose measurement by automated test strip (mass/volume)Ordered By: Aries Chavez on 55-21-9395Ilooiab Auto test strip (U) [Mass/Vol]See commentNoal [facility] CenterComment on above:Unable to obtain accurate result due to color interference.Urine hemoglobin detection by automated test stripOrdered By: Aries Chavez on 35-11-4444Fifhwztksk Auto test strip Ql (U)See commentNegUC Medical CenterComment on above:Unable to obtain accurate result due to color interference.Urine leukocyte esterase detection by automated test stripOrdered By: Aries Chavez on 07-31-2023 Leukocyte esterase Auto test strip Ql (U)See commentNegUC Medical CenterComment on above:Unable to obtain accurate result due to color interference.Urobilinogen Auto test strip (U) [Mass/Vol]Ordered By: Aries Chavez on [id number] (U) [Mass/Vol]See commentNormalLakehealth Tripoint Medical CenterComment on above:Unable to obtain accurate result due to color interference.WBC Auto (Bld) [#/Vol]Ordered By: Aries Chavez on [id number] (Bld) [#/Vol]8.2 10*3/uL3.8-11.6FSheltering Arms Hospital pH Auto test strip (U)Ordered By: Aries Chavez on 13-82-0130jH (U)See comment5.0-9.0L[facility] Tripoint Medical CenterComment on above:Unable to obtain accurate result due to color interference.PROF CHEM 8 (BAS METB)on 02-28-2023 Anion gap [Moles/Vol]13.5 mmol/LNormalSelect Medical Specialty Hospital - CantonComment on above: Performed By: #### NA #### [facility] [address] [address] [address] Allen SmithCalcium [Mass/Vol]9.6 mg/dLNormal8.5-10.1The [facility] Comment on above:Performed By: #### NA #### [facility] [address] [address] [address] Allen SmithChloride [Moles/Vol]95 mmol/LCritically sud24-040Jtm [facility] HospitalComment on above:Performed By: #### NA #### [facility] [address] [address] [address] Allen SmithCO2 [Moles/Vol]27.1 mmol/MPljmvs49.0-32.0The [facility] Comment on above:Performed By: #### NA #### [facility] [address] [address] [address] Allen SmithCreatinine [Mass/Vol]0.93 mg/dLNormal0.55-1.02The [facility] HospitalComment on above:Performed By: #### NA #### [facility] [address] [address] [address] Villa ChangEGFR-AF ZIMBABWEAN>60Normal>=60The Brittney HospitalComment on above:Performed By: #### NA #### [facility] [address] [address] [address] Allen SunGFR-NON AF BZAXJRIV95 mL/min/1.13r4Ueacij>=60The [facility] HospitalComment on above:Performed By: #### NA #### [facility] [address] [address] [address] Allen SmithGlucose [Mass/Vol]123 mg/dLCritically hrrg00-657Eji [facility] HospitalComment on above:Performed By: #### NA #### [facility] [address] [address] [address] Allen SmithPotassium [Moles/Vol]4.6 mmol/LNormal3.5-5.1The [facility] Comment on above:Performed By: #### NA #### [facility] [address] [address] [address] Allen SmithSodium [Moles/Vol]131 mmol/LCritically gwg445-352Xkt [facility] HospitalComment on above:Performed By: #### NA #### [facility] [address] [address] [address] Allen SmithUrea nitrogen [Mass/Vol]8.0 mg/dLNormal7.0-18.0The [facility] HospitalComment on above:Performed By: #### NA #### [facility] [address] [address] [address] Allen Morgan nitrogen/Creatinine [Mass ratio]8.6 mg/mgNormalThe [facility] HospitalComment on above:Performed By: #### NA #### [facility] [address] [address] [address] Allen De La Fuente [id number] peptide B (Bld) [Mass/Vol]1572.0 pg/mLCritically high<=900.0The [facility] HospitalComment on above:Performed By: #### NA #### [facility] [address] [address] [address] Allen Cabral AUTO DIFFon [id number] #0.1 103/ulNormal0.0-0.1The [facility] HospitalComment on above:Performed By: #### CBC #### [facility] [address] [address] [address] Allen SmithBasophils/100 WBC (Bld)0.7 %Normal0.2-2.0The [facility] Comment on above:Performed By: #### CBC #### [facility] [address] [address] [address] Allen Francois #0.2 103/ulNormal0.0-0.7The [facility] HospitalComment on above: Performed By: #### CBC #### [facility] [address] [place] [address] Dr. Allen Sunosinophils/100 WBC (Bld)2.8 %Normal0.9-7.0The [facility] Comment on above:Performed By: #### CBC #### [facility] [address] [place] [address] Dr. Allen Sunrythrocyte distribution width (RBC) [Ratio]15.2 %Critically high 11.0-15.0The [facility] HospitalComment on above:Performed By: #### CBC #### [facility] [address] [place] [address] Dr. Allen SmithHematocrit (Bld) [Volume fraction]29.9 %Critically low36.0-48.0 The [facility] HospitalComment on above:Performed By: #### CBC #### [facility] [address] [place] [address] Dr. Allen SmithHemoglobin (Bld) [Mass/Vol]9.4 g/dLCritically low12.0-16.0The [facility] HospitalComment on above:Performed By: #### CBC #### [facility] [address] [place] [address] Dr. Allen Diaz #0.03 10e3/ulNormal0.00-0.03The [facility] HospitalComment on above:Performed By: #### CBC #### [facility] [address] [address] [address] Allen Diaz %0.4 %Normal0.0-0.5The [facility] on above: Performed By: #### CBC #### [facility] [address] [place] [address] Dr. Allen Canales #1.5 103/ulNormal1.2-3.8The [facility] HospitalComment on above:Performed By: #### CBC #### [facility] [address] [place] [address] Dr. Allen Paulhocytes/100 WBC (Bld)18.0 %Critically low20.5-60.0The [facility] on above:Performed By: #### CBC #### [facility] [address] [place] [address] Dr. Allen VelaUAL DIFF REQNONormalThe [facility] HospitalComment on above: Performed By: #### CBC #### [facility] [address] [place] [address] Dr. Allen Nielsen (RBC) [Entitic mass]24.7 pgCritically low26.7-34.0The [facility] on above:Performed By: #### CBC #### [facility] [address] [place] [address] Dr. Allen Nielsen (RBC) [Mass/Vol]31.4 g/xUKbhxao55.9-35.2The [facility] on above:Performed By: #### CBC #### [facility] [address] [place] [address] Dr. Allen Nielsen (RBC) [Entitic vol]78.7 fLCritically low81.0-99.0The [facility] on above:Performed By: #### CBC #### [facility] [address] [place] [address] Dr. Allen Lilly #0.8 103/ulNormal0.3-0.8The [facility] Hospitalment on above:Performed By: #### CBC #### [facility] [address] [address] [address] Allen Cottonocytes/100 WBC (Bld)9.5 %Normal1.7-12.0The [facility] Comment on above:Performed By: #### CBC #### [facility] [address] [address] [address] Allen SethiUT #5.7 103/ulNormal1.4-6.5The [facility] HospitalComment on above:Performed By: #### CBC #### [facility] [address] [place] [address] Dr. Allen Sethiutrophils/100 WBC (Bld)68.6 %Cfcjky22.0-75.0The [facility] HospitalComment on above:Performed By: #### CBC #### [facility] [address] [place] [address] Dr. Allen SmithPlatelet mean volume (Bld) [Entitic vol]10.2 fLNormal9.5-13.5The [facility] HospitalComment on above:Performed By: #### CBC #### [facility] [address] [place] [address] Dr. Allen SmithPLT324 103/tzGyinxy888-493Zfu [facility] HospitalComment on above: Performed By: #### CBC #### [facility] [address] [place] [address] Dr. Allen SmithRBC3.80 106/ulCritically low4.20-5.40The [facility] HospitalComment on above:Performed By: #### CBC #### [facility] [address] [place] [address] Dr. Allen SmithWBC8.3 103/ulNormal4.0-11.0The [facility] HospitalComment on above: Performed By: #### CBC #### [facility] [address] [place] [address] Dr. Allen SmithPROF CHEM 8 (BAS METB)on 05-05-8073Fdtpp gap [Moles/Vol]7.5 mmol/LNormalThe [facility] HospitalComment on above:Performed By: #### NA #### [facility] [address] [address] [address] Allen SmithCalcium [Mass/Vol]9.1 mg/dLNormal8.5-10.1The [facility] Comment on above:Performed By: #### NA #### [facility] [address] [address] [address] Allen SmithChloride [Moles/Vol]97 mmol/LCritically hdj77-626Vwg [facility] HospitalComment on above:Performed By: #### NA #### [facility] [address] [address] [address] Allen SmithCO2 [Moles/Vol]30.9 mmol/OHpdeeh16.0-32.0The [facility] Comment on above:Performed By: #### NA #### [facility] [address] [address] [address] Allen SmithCreatinine [Mass/Vol]0.84 mg/dLNormal0.55-1.02The [facility] HospitalComment on above:Performed By: #### NA #### [facility] [address] [address] [address] Allen SunGFR-AF ZIMBABWEAN>60Normal>=60The [facility] HospitalComup health system on above:Performed By: #### NA #### [facility] [address] [address] [address] Allen SunGFR-NON AF ZIMBABWEAN>60Normal>=60The [facility] HospitalComment on above:Performed By: #### NA #### [facility] [address] [address] [address] Allen SmithGlucose [Mass/Vol]111 mg/dLCritically rbdl51-280Raq [facility] HospitalComment on above:Performed By: #### NA #### [facility] [address] [address] [address] Allen SmithPotassium [Moles/Vol]4.4 mmol/LNormal3.5-5.1The [facility] Comment on above:Performed By: #### NA #### [facility] [address] [address] [address] Allen Lucerodium [Moles/Vol]131 mmol/LCritically gcd139-520Ciu [facility] HospitalComup health system on above:Performed By: #### NA #### [facility] [address] [address] [address] Allen Morgan nitrogen [Mass/Vol]8.0 mg/dLNormal7.0-18.0The [facility] HospitalComup health system on above:Performed By: #### NA #### [facility] [address] [address] [address] Allen Morgan nitrogen/Creatinine [Mass ratio]9.5 mg/mgNoMemorial HospitalComup health system on above:Performed By: #### NA #### [facility] [address] [place] [address] Dr. Allen MANZANO [facility] MODEVENTILATORUniversity Hospitals Beachwood Medical CenterComment on above:Performed By: #### ABG #### [facility] [address] [place] [address] Dr. Allen Irwin TESTPositiveUniversity Hospitals Beachwood Medical CenterComup health system on above: Performed By: #### ABG #### [facility] [address] [place] [address] Dr. Allen Jackson excess Calc (Bld) [Moles/Vol]-2.5000 mmol/LCritically low -2.0-2.0The [facility] HospitalComup health system on above:Performed By: #### ABG #### [facility] [address] [place] [address] Dr. Allen De La Rosa PRESSUREUniversity Hospitals Beachwood Medical CenterComup health system on above: Performed By: #### ABG #### [facility] [address] [place] [address] Dr. Allen SmithCPAPUniversity Hospitals Beachwood Medical CenterComup health system on above:Performed By: #### ABG #### [facility] [address] [place] [address] Dr. Allen SmithFIO240.00 %NormalThe [facility] HospitalComment on above:Performed By: #### ABG #### [facility] [address] [address] [address] Allen SmithHCO3 (Bld) [Moles/Vol]24.1 mmol/JSjslgr85.0-26.0The [facility] HospitalComment on above:Performed By: #### ABG #### [facility] [address] [address] [address] Allen SmithLPMNormalThe [facility] HospitalComment on above:Performed By: #### ABG #### [facility] [address] [address] [address] Allen SmithMINTrinity Health System West CampusComment on above: Performed By: #### ABG #### [facility] [address] [place] [address] Dr. Allen SmithOxygen (Bld) [Partial pressure]85.1 mm[Hg]Txhtgo68.0-100.0The [facility] HospitalComment on above:Performed By: #### ABG #### [facility] [address] [place] [address] Dr. Allen SmithOxygen saturation in Blood96.2 %Ftslak71.0-100.0The [facility] HospitalComment on above:Performed By: #### ABG #### [facility] [address] [address] [address] Allen SmithPCO250.1 mmHgCritically high35.0-45.0The [facility] HospitalComment on above:Performed By: #### ABG #### [facility] [address] [address] [address] Allen SmithYebmzKXFI5KueofiHon[address] [place], [place] [address]Comment on above:Performed By: #### ABG #### [facility] [address] [place] [address] Dr. Allen SmithpH (Bld)7.290 [pH]Critically low7.350-7.450The [facility] on above:Performed By: #### ABG #### [facility] [address] [address] [address] Allen WangPNWood County Hospital on above:Performed By: #### ABG #### [facility] [address] [address] [address] Allen SmithUC Medical CenterComup health system on above:Performed By: #### ABG #### [facility] [address] [address] [address] Allen McgeeUNCTURE Southwest [facility] CenterComup health system on above: Performed By: #### ABG #### [facility] [address] [address] [address] Allen Melgar[address] [place] [address] on above:Performed By: #### ABG #### [facility] [address] [address] [address] Allen Barker MODEParkwood HospitalComup health system on above:Performed By: #### ABG #### [facility] [address] [address] [address] Allen Blair450 MLNormalSelect Medical Specialty Hospital - CantonComup health system on above:Result Comment: Previously reported as: 400 On 01/25/2023 17:03 By [id number] By: #### ABG #### [facility] [address] [address] [address] Allen Smith MODENASAL CANNULAUniversity Hospitals Beachwood Medical CenterComup health system on above: Performed By: #### TSH #### [facility] [address] [address] [address] Allen Irwin TESTPositiveUniversity Hospitals Beachwood Medical CenterComup health system on above: Performed By: #### TSH #### [facility] [address] [address] [address] Allen Jackson excess Calc (Bld) [Moles/Vol]-2.9000 mmol/LCritically low -2.0-2.0[facility] on above:Performed By: #### TSH #### [facility] [address] [address] [address] Allen De La Rosa [facility] CenterComup health system on above: Performed By: #### TSH #### [facility] [address] [address] [address] Allen SmithAPUniversity Hospitals Beachwood Medical CenterComup health system on above:Performed By: #### TSH #### [facility] [address] [address] [address] Allen ChingWxzgqBYE5QwqarfYxz[address] on above:Performed By: #### TSH #### [facility] [address] [address] [address] Allen SmithHCO3 (Bld) [Moles/Vol]24.2 mmol/OQfbfax18.0-26.0The [facility] on above:Performed By: #### TSH #### [facility] [address] [address] [address] Allen SmithZstdnWKQ6NavokpT[address] on above:Performed By: #### TSH #### [facility] [address] [address] [address] Allen NielsonTrinity Health System West CampusComup health system on above: Performed By: #### TSH #### [facility] [address] [address] [address] Allen SmithOxygen (Bld) [Partial pressure]70.6 mm[Hg]Critically low 80.0-100.0The [facility] on above:Performed By: #### TSH #### [facility] [address] [address] [address] Allen SmithOxygen saturation in Blood91.5 %Critically low95.0-100.0The [facility] on above:Performed By: #### TSH #### [facility] [address] [address] [address] Allen SmithPCO254.7 mmHgCritically high35.0-45.0The [facility] on above:Performed By: #### TSH #### [facility] [address] [address] [address] Allen SmithKettering Health HamiltonComment on above:Performed By: #### TSH #### [facility] [address] [address] [address] Allen Malin (Bld)7.255 [pH]Critically low7.350-7.450The [facility] on above:Performed By: #### TSH #### [facility] [address] [address] [address] Allen Kincaidselect specialty hospitalThe [facility] HospitalComment on above:Performed By: #### TSH #### [facility] [address] [address] [address] Villa Hocking Valley Community HospitalComment on above:Performed By: #### TSH #### [facility] [address] [address] [address] Allen Mcneil [facility] General Health CenterComment on above: Performed By: #### TSH #### [facility] [address] [address] [address] Allen JamesGalion Community HospitalComment on above:Performed By: #### TSH #### [facility] [address] [place] [address] Dr. Allen SmithCincinnati VA Medical CenterComup health system on above:Performed By: #### TSH #### [facility] [address] [place] [address] Dr. Allen SmithOhioHealth Mansfield HospitalComment on above:Performed By: #### TSH #### [facility] [address] [address] [address] Allen De La Fuente [id number] peptide B (Bld) [Mass/Vol]07945.0 pg/mLCritically high<=900.0[facility] on above:Performed By: #### BNP, CMP #### [facility] [address] [place] [address] Dr. Allen JEFFERSON 3-6on [id number] [Catalytic activity/Vol]346 U/L Critically dqfv99-660Pyl Delaware County Hospitalment on above:Performed By: #### TSH #### [facility] [address] [place] [address] Dr. Allen Hager.MB [Mass/Vol]15.70 ng/mLCritically high<=3.60The [facility] HospitalComment on above:Performed By: #### TSH #### [facility] [address] [place] [address] Dr. Allen AngelesTROP1206.7 pg/mLCritically high4.0-51.3The [facility] Comment on above:Result Comment: CUT-OFF POINTS HAVE BEEN ESTABLISHED BASED ON THE FOURTH UNIVERSAL DEFINITIONS OF MYOCARDIAL INFARCTION. THE UPPER REFERENCE LIMIT (URL) OF TROPONIN, DEFINED THE 99TH PERCENTILE OF cTnI DISTRIBUTION IN A REFERENCE POPULATION, HAS BEEN CONFIRMED THE DECISION THRESHOLD FOR [place] DIAGNOSIS.Performed By: #### TSH #### [facility] [address] [place] [address] Dr. Allen Cabral AUTO DIFFon [id number] #0.0 103/ulNormal0.0-0.1The [facility] HospitalComup health system on above:Performed By: #### TSH #### [facility] [address] [place] [address] Dr. Allen SmithBasophils/100 WBC (Bld)0.1 %Critically low0.2-2.0The [facility] HospitalComup health system on above:Performed By: #### TSH #### [facility] [address] [place] [address] Dr. Allen Francois #0.0 103/ulNormal0.0-0.7The [facility] HospitalComup health system on above: Performed By: #### TSH #### [facility] [address] [place] [address] Dr. Allen Sunosinophils/100 WBC (Bld)0.0 %Critically low0.9-7.0The [facility] HospitalComup health system on above:Performed By: #### TSH #### [facility] [address] [address] [address] Allen Sunrythrocyte distribution width (RBC) [Ratio]13.4 %Mzrope85.0-15.0 [facility] Hospital - CantonComment on above:Performed By: #### TSH #### [facility] [address] [place] [address] Dr. Allen SmithHematocrit (Bld) [Volume fraction]30.2 %Critically low36.0-48.0 The [facility] HospitalComment on above:Performed By: #### TSH #### [facility] [address] [place] [address] Dr. Allen SmithHemoglobin (Bld) [Mass/Vol]9.9 g/dLCritically low12.0-16.0The [facility] HospitalComment on above:Performed By: #### TSH #### [facility] [address] [place] [address] Dr. Allen Diaz #0.05 10e3/ulCritically high0.00-0.03[facility] Comment on above:Performed By: #### TSH #### [facility] [address] [place] [address] Dr. Allen Diaz %0.4 %Normal0.0-0.5The [facility] HospitalComup health system on above: Performed By: #### TSH #### [facility] [address] [place] [address] Dr. Allen PaulH #0.3 103/ulCritically low1.2-3.8The [facility] Comment on above:Performed By: #### TSH #### [facility] [address] [place] [address] Dr. Allen Devimphocytes/100 WBC (Bld)2.5 %Critically low20.5-60.0[facility] on above:Performed By: #### TSH #### [facility] [address] [place] [address] Dr. Allen VelaUAL DIFF REQNONormalThe [facility] HospitalComment on above: Performed By: #### TSH #### [facility] [address] [address] [address] Allen Nielsen (RBC) [Entitic mass]24.9 pgCritically low26.7-34.0The [facility] HospitalComment on above:Performed By: #### TSH #### [facility] [address] [place] [address] Dr. Allen Nielsen (RBC) [Mass/Vol]32.8 g/xLMppzyk33.9-35.2The [facility] HospitalComment on above:Performed By: #### TSH #### [facility] [address] [place] [address] Dr. Allen Nielsen (RBC) [Entitic vol]76.1 fLCritically low81.0-99.0The [facility] HospitalComment on above:Performed By: #### TSH #### [facility] [address] [place] [address] Dr. Allen Lilly #0.5 103/ulNormal0.3-0.8The [facility] HospitalComment on above:Performed By: #### TSH #### [facility] [address] [place] [address] Dr. Allen Cottonocytes/100 WBC (Bld)3.7 %Normal1.7-12.0[facility] Comment on above:Performed By: #### TSH #### [facility] [address] [place] [address] Dr. Allen SethiUT #12.2 103/ulCritically high1.4-6.5The [facility] Comment on above:Performed By: #### TSH #### [facility] [address] [place] [address] Dr. Allen Sethiutrophils/100 WBC (Bld)93.3 %Critically high43.0-75.0The [facility] HospitalComment on above:Performed By: #### TSH #### [facility] [address] [place] [address] Dr. Allen Garcia mean volume (Bld) [Entitic vol]10.3 fLNormal9.5-13.5The [facility] HospitalComment on above:Performed By: #### TSH #### [facility] [address] [address] [address] Allen SmithPLT263 103/foZbytgd463-943Mrn [facility] HospitalComup health system on above: Performed By: #### TSH #### [facility] [address] [place] [address] Dr. Allen SmithRBC3.97 106/ulCritically low4.20-5.40The [facility] HospitalComment on above:Performed By: #### TSH #### [facility] [address] [place] [address] Dr. Allen SmithWBC13.0 103/ulCritically high4.0-11.0The [facility] HospitalComup health system on above:Performed By: #### TSH #### [facility] [address] [place] [address] Dr. Allen MitchellSO #0.0 103/ulNormal0.0-0.1The [facility] HospitalComup health system on above:Performed By: #### NA #### [facility] [address] [place] [address] Dr. Allen Mitchellsophils/100 WBC (Bld)0.1 %Critically low0.2-2.0The [facility] on above:Performed By: #### NA #### [facility] [address] [place] [address] Dr. Allen Francois #0.0 103/ulNormal0.0-0.7The [facility] HospitalComup health system on above: Performed By: #### NA #### [facility] [address] [place] [address] Dr. Allen Sunosinophils/100 WBC (Bld)0.0 %Critically low0.9-7.0The [facility] on above:Performed By: #### NA #### [facility] [address] [place] [address] Dr. Allen Sunrythrocyte distribution width (RBC) [Ratio]13.4 %Fvtpuw48.0-15.0 The [facility] HospitalComment on above:Performed By: #### NA #### [facility] [address] [place] [address] Dr. Allen SmithHematocrit (Bld) [Volume fraction]29.5 %Critically low36.0-48.0 [facility] - CantonComment on above:Performed By: #### NA #### [facility] [address] [place] [address] Dr. Allen SmithHemoglobin (Bld) [Mass/Vol]9.6 g/dLCritically low12.0-16.0[facility] - CantonComment on above:Performed By: #### NA #### [facility] [address] [place] [address] Dr. Allen SmithIG #0.04 10e3/ulCritically high0.00-0.03[facility] Comment on above:Performed By: #### NA #### [facility] [address] [place] [address] Dr. Allen Diaz %0.4 %Normal0.0-0.5ThDelaware County HospitalComment on above: Performed By: #### NA #### [facility] [address] [place] [address] Dr. Allen Canales #0.4 103/ulCritically low1.2-3.8[facility] Comment on above:Performed By: #### NA #### [facility] [address] [place] [address] Dr. Allen Devimphocytes/100 WBC (Bld)3.5 %Critically low20.5-60.0[facility] CantonComment on above:Performed By: #### NA #### [facility] [address] [place] [address] Dr. Allen VelaUAL DIFF REQNONormalThe [facility]ville HospitalComment on above: Performed By: #### NA #### [facility] [address] [place] [address] Dr. Allen Valladares (RBC) [Entitic mass]24.4 pgCritically low26.7-34.0[facility] CantonComment on above:Performed By: #### NA #### [facility] [address] [place] [address] Dr. Allen Nielsen (RBC) [Mass/Vol]32.5 g/vEBcmnis10.9-35.2The [facility] HospitalComment on above:Performed By: #### NA #### [facility] [address] [place] [address] Dr. Allen Nielsen (RBC) [Entitic vol]74.9 fLCritically low81.0-99.0The [facility] HospitalComment on above:Performed By: #### NA #### [facility] [address] [place] [address] Dr. Allen Lilly #0.4 103/ulNormal0.3-0.8The [facility] HospitalComment on above:Performed By: #### NA #### [facility] [address] [place] [address] Dr. Allen Cottonocytes/100 WBC (Bld)3.5 %Normal1.7-12.0[facility] Comment on above:Performed By: #### NA #### [facility] [address] [place] [address] Dr. Allen Darden #10.2 103/ulCritically high1.4-6.5[facility] Comment on above:Performed By: #### NA #### [facility] [address] [place] [address] Dr. Allen Silvermanophils/100 WBC (Bld)92.5 %Critically high43.0-75.0The [facility] HospitalComment on above:Performed By: #### NA #### [facility] [address] [place] [address] Dr. Allen Sellerslet mean volume (Bld) [Entitic vol]10.9 fLNormal9.5-13.5The [facility] HospitalComment on above:Performed By: #### NA #### [facility] [address] [place] [address] Dr. Villa ElzgaIUJ091 103/vsZaahpz437-499Vgs [facility] HospitalComment on above: Performed By: #### NA #### [facility] [address] [place] [address] Dr. Allen SmithRBC3.94 106/ulCritically low4.20-5.40The [facility] HospitalComment on above:Performed By: #### NA #### [facility] [address] [place] [address] Dr. Villa EbcszHJX13.0 103/ulNormal4.0-11.0The [facility] HospitalComment on above:Performed By: #### NA #### [facility] [address] [place] [address] Dr. Villa ChangECHOCARDIO M/2D COMPLETEon [id number] M/2D COMPLETE Patient: PERLA IBARRA Exam Date: 01/25/2023 : 1955 Gender:F Ordering : DOMINGA GODWIN . Admission #: [id number] Family : DR FREDDY BARRAZA M.D. Order #: [id number] CLICK HERE TO VIEW EXAM ECHOCARDIOGRAM REPORT [...] by: Robbi Henderson M.D. on 01/25/2023 at 15:39[facility] 83-64-2539Mqpybd [Moles/Vol]128 mmol/LCritically srb227-417Xgp [facility] HospitalComment on above:Performed By: #### NA #### [facility] [address] [place] [address] Dr. Allen Lucerodium [Moles/Vol]122 mmol/LCritically edo866-170Rye [facility] HospitalComment on above:Performed By: #### TSH #### [facility] [address] [place] [address] Dr. Allen Lucerodium [Moles/Vol]122 mmol/LCritically bcl709-968Ctz [facility] HospitalComment on above:Performed By: #### NA #### [facility] [address] [place] [address] Dr. Allen Bishop 14(COMP METB)on 92-15-3559Cxdqvpp [Mass/Vol]2.8 g/dL Critically low3.4-5.0The [facility] HospitalComment on above:Performed By: #### BNP, CMP #### [facility] [address] [place] [address] Dr. Allen SmithAlbumin/Globulin [Mass ratio]0.5 {ratio}NormalThe [facility] HospitalComment on above:Performed By: #### BNP, CMP #### [facility] [address] [place] [address] Dr. Allen Noel [Catalytic activity/Vol]69 U/NBnsgai90-395Ypa [facility] HospitalComment on above:Performed By: #### BNP, CMP #### [facility] [address] [place] [address] Dr. Allen King [Catalytic activity/Vol]57 U/SZppybs82-27Txr [facility] HospitalComment on above:Performed By: #### BNP, CMP #### [facility] [address] [address] [address] Allen Bower gap [Moles/Vol]16.1 mmol/LNormalSelect Medical Special[facility] Comment on above:Performed By: #### BNP, CMP #### [facility] [address] [place] [address] Dr. Allen SmithAST [Catalytic activity/Vol]41 U/LCritically wsti44-75Lzh [facility] HospitalComment on above:Performed By: #### BNP, CMP #### [facility] [address] [place] [address] Dr. Allen SmithBilirubin [Mass/Vol]0.2 mg/dLNormal0.2-1.0[facility] Comment on above:Performed By: #### BNP, CMP #### [facility] [address] [place] [address] Dr. Allen SmithCalcium [Mass/Vol]8.7 mg/dLNormal8.5-10.1[facility] Comment on above:Performed By: #### BNP, CMP #### [facility] [address] [place] [address] Dr. Allen SmithChloride [Moles/Vol]88 mmol/LCritically hhc68-363Gxx [facility] HospitalComment on above:Performed By: #### BNP, CMP #### [facility] [address] [place] [address] Dr. Allen SmithCO2 [Moles/Vol]22.6 mmol/MTtmmfx75.0-32.0[facility] Comment on above:Performed By: #### BNP, CMP #### [facility] [address] [place] [address] Dr. Allen SmithCreatinine [Mass/Vol]0.83 mg/dLNormal0.55-1.02The [facility] HospitalComment on above:Performed By: #### BNP, CMP #### [facility] [address] [place] [address] Dr. Allen SunGFR-AF ZIMBABWEAN>60Normal>=60The [facility] HospitalComment on above:Performed By: #### BNP, CMP #### [facility] [address] [address] [address] Allen SunGFR-NON AF ZIMBABWEAN>60Normal>=60The [facility] HospitalComment on above:Performed By: #### BNP, CMP #### [facility] [address] [address] [address] Allen SmithGlobulin (S) [Mass/Vol]5.2 g/dLNormSalem Regional Medical CenterComment on above:Performed By: #### BNP, CMP #### [facility] [address] [address] [address] Allen SmithGlucose [Mass/Vol]120 mg/dLCritically lied46-132Tns [facility] HospitalComment on above:Performed By: #### BNP, CMP #### [facility] [address] [place] [address] Dr. Allen SmithPotassium [Moles/Vol]3.7 mmol/LNormal3.5-5.1[facility] Comment on above:Performed By: #### BNP, CMP #### [facility] [address] [address] [address] Allen SmithProtein [Mass/Vol]8.0 g/dLNormal6.4-8.2[facility] Comment on above:Performed By: #### BNP, CMP #### [facility] [address] [place] [address] Dr. Allen SmithSodium [Moles/Vol]122 mmol/LCritically otl835-443Vnz [facility] HospitalComment on above:Performed By: #### BNP, CMP #### [facility] [address] [place] [address] Dr. Allen SmithUrea nitrogen [Mass/Vol]13.0 mg/dLNormal7.0-18.0The [facility] HospitalComment on above:Performed By: #### BNP, CMP #### [facility] [address] [place] [address] Dr. Allen SmithUrea nitrogen/Creatinine [Mass ratio]15.7 mg/mgNormalThe [facility] HospitalComment on above:Performed By: #### BNP, CMP #### [facility] [address] [address] [address] Allen SmithPROF CHEM 8 (BAS METB)on 39-91-5612Qfsds gap [Moles/Vol]13.3 mmol/LNormalThe [facility] HospitalComment on above:Performed By: #### BMP #### [facility] [address] [address] [address] Allen SmithCalcium [Mass/Vol]7.1 mg/dLCritically low8.5-10.1The [facility] HospitalComment on above:Performed By: #### BMP #### [facility] [address] [address] [address] Allen SmithChloride [Moles/Vol]97 mmol/LCritically rxb39-419Mox [facility] HospitalComment on above:Performed By: #### BMP #### [facility] [address] [place] [address] Dr. Allen SmithCO2 [Moles/Vol]21.8 mmol/OBnmmtw93.0-32.0[facility] Comment on above:Performed By: #### BMP #### [facility] [address] [place] [address] Dr. Allen SmithCreatinine [Mass/Vol]0.84 mg/dLNormal0.55-1.02The [facility] HospitalComment on above:Performed By: #### BMP #### [facility] [address] [address] [address] Allen SunGFR-AF ZIMBABWEAN>60Normal>=60The [facility] HospitalComment on above:Performed By: #### BMP #### [facility] [address] [address] [address] Allen SunGFR-NON AF ZIMBABWEAN>60Normal>=60The [facility] HospitalComment on above:Performed By: #### BMP #### [facility] [address] [place] [address] Dr. Allen SmithGlucose [Mass/Vol]128 mg/dLCritically jazd74-014Cjc Brittney HospitalComment on above:Performed By: #### BMP #### [facility] [address] [place] [address] Dr. Allen SmithPotassium [Moles/Vol]3.1 mmol/LCritically low3.5-5.1The [facility] HospitalComup health system on above:Performed By: #### BMP #### [facility] [address] [place] [address] Dr. Allen SmithSodium [Moles/Vol]129 mmol/LCritically bns511-728Ool [facility] HospitalComup health system on above:Performed By: #### BMP #### [facility] [address] [place] [address] Dr. Allen SmithUrea nitrogen [Mass/Vol]17.0 mg/dLNormal7.0-18.0[facility] on above:Performed By: #### BMP #### [facility] [address] [place] [address] Dr. Allen Morgan nitrogen/Creatinine [Mass ratio]20.2 mg/mgNormSalem Regional Medical CenterComup health system on above:Performed By: #### BMP #### [facility] [address] [place] [address] Dr. Allen Grijalva 04-22-4164EEQ Coag (PPP) [Relative time]0.98 {INR} NormalOhioHealth Hardin Memorial Hospital on above:Performed By: #### BNP, CMP #### [facility] [address] [place] [address] Dr. Allen Morris GUIDELINESSEE BELOWUniversity Hospitals Beachwood Medical CenterComment on above:Result Comment: DESIRED INR: 2.0 - 3.0 CONDITIONS NOT LISTED BELOW 2.5 - 3.5 FOR PROSTHETIC HEART VALVE REPLACEMENT 2.5 - 3.5 RECURRENT THROMBOSIS Performed By: #### BNP, CMP #### [facility] [address] [place] [address] Dr. Allen SmithPT Coag (PPP) [Time]10.4 sNormal9.0-11.6The [facility] Comment on above:Performed By: #### BNP, CMP #### [facility] [address] [place] [address] Dr. Allen ChávezTon 64-95-2848kWGL Coag (Bld) [Time]29.8 eCoxiaa21.3-36.2The [facility] HospitalComment on above:Performed By: #### BNP, CMP #### [facility] [address] [place] [address] Dr. Allen Harris HEPARIN MONITORon 31-89-5485iOJP Coag (Bld) [Time]24.5 s Critically low39.5-54.2The [facility] HospitalComment on above:Performed By: #### TSH #### [facility] [address] [place] [address] Dr. Allen SmithTRIGLYCERIDEon 49-69-3542Fjtjmzampycw [Mass/Vol]55 mg/dLNormal <=150The [facility] HospitalComup health system on above:Performed By: #### TSH #### [facility] [address] [place] [address] Dr. Allen SmithXR CHEST 1 Von 20-24-3631ZV CHEST 1 VEXAM: XR CHEST 1 V HISTORY: SHORTNESS OF BREATH COMPARISON: Chest radiograph 01/25/2023. TECHNIQUE: AP upright portable view of chest FINDINGS: Stable endotracheal tube position. Enteric tube has been advanced with distal tip not included in the hxwdu-lm-cyfp but at least terminates in the mid to low gastric body. Radiolucent sideport is at the gastric antrum. Similar pulmonary vascular congestion. No sizable pleural effusion or pneumothorax. Normal cardiomediastinal sella. No acute osseous or soft tissue abnormalities. IMPRESSION: 1. Enteric tube has been advanced with distal tip not included in the obgyb-ly-zuqf but at least terminates in the mid to low gastric body. Radiolucent sideport is at the gastric antrum. 2. Stable endotracheal tube position. 3. Pulmonary vascular congestion. Electronically authenticated by: BASHIR ZAYAS Date: 2023-01-25 18:35NormalThDelaware County HospitalXR CHEST 1 VEXAM: XR CHEST 1 V HISTORY: Dyspnea COMPARISON: [...] Electronically authenticated by: Ava HERNDON Date: 2023-01-25 17:25[facility] Medical CenterBLOOD GASES BTYon MODENASAL CANNULAUniversity Hospitals Beachwood Medical CenterComment on above:Performed By: #### ABG #### [facility] [address] [place] [address] Dr. Allen Irwin TESTPositiveUniversity Hospitals Beachwood Medical CenterComment on above: Performed By: #### ABG #### [facility] [address] [place] [address] Dr. Allen SmithBase excess Calc (Bld) [Moles/Vol]-4.1000 mmol/LCritically low -2.0-2.0The [facility] HospitalComment on above:Performed By: #### ABG #### [facility] [address] [place] [address] Dr. Allen De La Rosa PRESSUREUniversity Hospitals Beachwood Medical CenterComment on above: Performed By: #### ABG #### [facility] [address] [place] [address] Dr. Allen SmithCPAPUniversity Hospitals Beachwood Medical CenterComment on above:Performed By: #### ABG #### [facility] [address] [place] [address] Dr. Allen SmithOumlcJAZ9NvooomRwdUniversity Hospitals Beachwood Medical CenterComment on above:Performed By: #### ABG #### [facility] [address] [place] [address] Dr. Allen SmithHCO3 (Bld) [Moles/Vol]21.6 mmol/LCritically low22.0-26.0The Brittney HospitalComment on above:Performed By: #### ABG #### [facility] [address] [address] [address] Allen HeadleyCdhzsUBH3HzvrkoTke96 Gomez StreetComment on above:Performed By: #### ABG #### [facility] [address] [address] [address] Allen SmithMINTrinity Health System West CampusComment on above: Performed By: #### ABG #### [facility] [address] [address] [address] Allen SmithOxygen (Bld) [Partial pressure]112.0 mm[Hg]Critically high 80.0-100.0The [facility] HospitalComment on above:Performed By: #### ABG #### [facility] [address] [place] [address] Dr. Allen SmithOxygen saturation in Blood98.5 %Kaoigl79.0-100.0The [facility] HospitalComment on above:Performed By: #### ABG #### [facility] [address] [place] [address] Dr. Allen SmithPCO239.6 alYcJmwaor29.0-45.0The [facility] HospitalComment on above:Performed By: #### ABG #### [facility] [address] [place] [address] Dr. Allen ReevesOhio State University Wexner Medical Centerment on above:Performed By: #### ABG #### [facility] [address] [address] [address] Allen SmithpH (Bld)7.345 [pH]Critically low7.350-7.450The [facility] on above:Performed By: #### ABG #### [facility] [address] [place] [address] Dr. Allen WangPNormalThe [facility] HospitalComment on above:Performed By: #### ABG #### [facility] [address] [place] [address] Dr. Allen SmithUC Medical CenterComment on above:Performed By: #### ABG #### [facility] [address] [place] [address] Dr. Allen Mcneil [facility] HospitalComup [facility] system on above: Performed By: #### ABG #### [facility] [address] [place] [address] Dr. Allen JamesGalion Community HospitalComup health system on above:Performed By: #### ABG #### [facility] [address] [place] [address] Dr. Allen SmithCincinnati VA Medical CenterComup health system on above:Performed By: #### ABG #### [facility] [address] [place] [address] Dr. Allen SmithOhioHealth Mansfield HospitalComup health system on above:Performed By: #### ABG #### [facility] [address] [place] [address] Dr. Allen De La Fuente 17-31-2088Trbgypxwboi peptide B (Bld) [Mass/Vol]01323.0 pg/mLCritically high<=900.0[facility] CantonComup health system on above:Performed By: #### NA #### [facility] [address] [place] [address] Dr. Allen Hdz LI 3-6on 39-55-9353AZ [Catalytic activity/Vol]319 U/L Critically uyqy58-400Enw [facility] on above:Performed By: #### BNP, CMP #### [facility] [address] [place] [address] Dr. Allen Hager.MB [Mass/Vol]16.41 ng/mLCritically high<=3.60[facility] on above:Performed By: #### BNP, CMP #### [facility] [address] [place] [address] Dr. Allen Caballero1248.2 pg/mLCritically high4.0-51.3TKettering Health Greene Memorial Comment on above:Result Comment: CUT-OFF POINTS HAVE BEEN ESTABLISHED BASED ON THE FOURTH UNIVERSAL DEFINITIONS OF MYOCARDIAL INFARCTION. THE UPPER REFERENCE LIMIT (URL) OF TROPONIN, DEFINED THE 99TH PERCENTILE OF cTnI DISTRIBUTION IN A REFERENCE POPULATION, HAS BEEN CONFIRMED THE DECISION THRESHOLD FOR [place] DIAGNOSIS.Performed By: #### BNP, CMP #### [facility] [address] [place] [address] Dr. Allen Hdz LI ADMITon 13-52-2399QR [Catalytic activity/Vol]238 U/L Critically lqny91-270Qdt [facility] HospitalComment on above:Performed By: #### CMADM #### [facility] [address] [place] [address] Dr. Allen Hager.MB [Mass/Vol]12.74 ng/mLCritically high<=3.60The [facility] HospitalComment on above:Performed By: #### CMADM #### [facility] [address] [place] [address] Dr. Allen SmithHSTROP1545.9 pg/mLCritically high4.0-51.3The [facility] Comment on above:Result Comment: CUT-OFF POINTS HAVE BEEN ESTABLISHED BASED ON THE FOURTH UNIVERSAL DEFINITIONS OF MYOCARDIAL INFARCTION. THE UPPER REFERENCE LIMIT (URL) OF TROPONIN, DEFINED THE 99TH PERCENTILE OF cTnI DISTRIBUTION IN A REFERENCE POPULATION, HAS BEEN CONFIRMED THE DECISION THRESHOLD FOR [place] DIAGNOSIS.Performed By: #### CMADM #### [facility] [address] [place] [address] Dr. Allen WylieO244 ng/mLCritically high9-82The [facility] Hospitalment on above:Performed By: #### CMADM #### [facility] [address] [place] [address] Dr. Allen YunC AUTO DIFFon 31-90-9595WVCJ #0.0 103/ulNormal0.0-0.1[facility] - CantonComment on above:Performed By: #### CBC #### [facility] [address] [place] [address] Dr. Allen SmithBasophils/100 WBC (Bld)0.2 %Normal0.2-2.0[facility] Comment on above:Performed By: #### CBC #### [facility] [address] [address] [address] Allen Francois #0.0 103/ulNormal0.0-0.7The [facility] HospitalComment on above: Performed By: #### CBC #### [facility] [address] [place] [address] Dr. Allen Sunosinophils/100 WBC (Bld)0.0 %Critically low0.9-7.0The [facility] HospitalComment on above:Performed By: #### CBC #### [facility] [address] [place] [address] Dr. Allen Sunrythrocyte distribution width (RBC) [Ratio]13.4 %Uyqhad65.0-15.0 [facility] - CantonComment on above:Performed By: #### CBC #### [facility] [address] [place] [address] Dr. Allen SmithHematocrit (Bld) [Volume fraction]33.0 %Critically low36.0-48.0 The [facility] HospitalComment on above:Performed By: #### CBC #### [facility] [address] [place] [address] Dr. Allen SmithHemoglobin (Bld) [Mass/Vol]10.6 g/dLCritically low12.0-16.0The [facility] HospitalComment on above:Performed By: #### CBC #### [facility] [address] [place] [address] Dr. Allen Diaz #0.11 10e3/ulCritically high0.00-0.03[facility] Comment on above:Performed By: #### CBC #### [facility] [address] [place] [address] Dr. Allen Diaz %0.9 %Critically high0.0-0.5The [facility] HospitalComment on above:Performed By: #### CBC #### [facility] [address] [place] [address] Dr. Allen PaulH #0.5 103/ulCritically low1.2-3.8[facility] Comment on above:Performed By: #### CBC #### [facility] [address] [place] [address] Dr. Allen Devimphocytes/100 WBC (Bld)4.2 %Critically low20.5-60.0The [facility] HospitalComment on above:Performed By: #### CBC #### [facility] [address] [place] [address] Dr. Allen Paredes DIFF REQNONormalThe [facility] HospitalComment on above: Performed By: #### CBC #### [facility] [address] [place] [address] Dr. Allen Nielsen (RBC) [Entitic mass]24.5 pgCritically low26.7-34.0The [facility] HospitalComment on above:Performed By: #### CBC #### [facility] [address] [place] [address] Dr. Allen Nielsen (RBC) [Mass/Vol]32.1 g/xKQhigmg08.9-35.2The [facility] HospitalComment on above:Performed By: #### CBC #### [facility] [address] [place] [address] Dr. Allen NielsenV (RBC) [Entitic vol]76.2 fLCritically low81.0-99.0The [facility] HospitalComment on above:Performed By: #### CBC #### [facility] [address] [place] [address] Dr. Allen Lilly #0.7 103/ulNormal0.3-0.8The [facility] Hospitalment on above:Performed By: #### CBC #### [facility] [address] [place] [address] Dr. Allen Cottonocytes/100 WBC (Bld)5.1 %Normal1.7-12.0[facility] Comment on above:Performed By: #### CBC #### [facility] [address] [place] [address] Dr. Allen Darden #11.3 103/ulCritically high1.4-6.5The [facility] Comment on above:Performed By: #### CBC #### [facility] [address] [address] [address] Allen SmithNeutrophils/100 WBC (Bld)89.6 %Critically high43.0-75.0The [facility] HospitalComment on above:Performed By: #### CBC #### [facility] [address] [address] [address] Allen SmithPlatelet mean volume (Bld) [Entitic vol]10.0 fLNormal9.5-13.5The Letts HospitalComment on above:Performed By: #### CBC #### [facility] [address] [place] [address] Dr. Allen SmithPLT316 103/wcUovimh138-725Top [facility] HospitalComment on above: Performed By: #### CBC #### [facility] [address] [place] [address] Dr. Allen SmithRBC4.33 106/ulNormal4.20-5.40The [facility] HospitalComment on above:Performed By: #### CBC #### [facility] [address] [place] [address] Dr. Allen SmithWBC12.6 103/ulCritically high4.0-11.0The [facility] HospitalComment on above:Performed By: #### CBC #### [facility] [address] [place] [address] [address] CONon 44-32-1078OW NECK ST W CONEXAMINATION: CT [address] CON HISTORY: SHORTNESS [...] Electronically authenticated by: FREDDY BARRAZA Date: 2023-01-24 14:13[facility] HospitalCULTURE BLOODon 09-29-6699Kqoebqxvvjs examination of blood, cultureCulture Observations: NO GROWTH AT 5 DAYS.NormalThe Letts HospitalComment on above:Performed By: #### BNP, CMP #### [facility] [address] [place] [address] Dr. Allen SmithMicroscopic examination of blood, cultureCulture Observations: NO GROWTH AT 5 DAYS.NormalThe Letts HospitalComment on above:Performed By: #### BNP, CMP #### [facility] [address] [place] [address] Dr. Allen SmithGROUP A STREP CULTUREon 01-24-2023S. pyogenes Ag Ql (Unsp spec) Culture Observations: NEGATIVE FOR GROUP A STREPTOCOCCUS.NormalThe [facility] HospitalComment on above: Performed By: #### NA #### [facility] [address] [place] [address] Dr. Allen SmithLACTATE/LACTIC ACIDon 35-71-2514Cgyowea [Moles/Vol]3.1 mmol/L Critically high0.4-2.0The [facility] HospitalComment on above:Performed By: #### ABG #### [facility] [address] [place] [address] Dr. Allen SmithLactate [Moles/Vol]3.6 mmol/LCritically high0.4-2.0The [facility] HospitalComment on above:Performed By: #### TSH #### [facility] [address] [place] [address] Dr. Allen Jackman 96-03-1637Hdyquh [Moles/Vol]122 mmol/LCritically ygf072-355 The [facility] HospitalComment on above:Performed By: #### NA #### [facility] [address] [address] [address] Allen Bishop 14(COMP METB)on 72-41-4096Ypspetu [Mass/Vol]3.0 g/dL Critically low3.4-5.0The [facility] HospitalComment on above:Performed By: #### NA #### [facility] [address] [address] [address] Allen SmithAlbumin/Globulin [Mass ratio]0.5 {ratio}NormalThe [facility] HospitalComment on above:Performed By: #### NA #### [facility] [address] [place] [address] Dr. Allen CraigP [Catalytic activity/Vol]88 U/CQrncjt73-622Qjf [facility] HospitalComment on above:Performed By: #### NA #### [facility] [address] [address] [address] Allen King [Catalytic activity/Vol]65 U/LCritically tyhp41-63Mxh [facility] HospitalComment on above:Performed By: #### NA #### [facility] [address] [address] [address] Allen Bower gap [Moles/Vol]17.8 mmol/LNormalThe [facility] Comment on above:Performed By: #### NA #### [facility] [address] [place] [address] Dr. Allen SmithAST [Catalytic activity/Vol]28 U/OYqajxi58-77Cjw [facility] HospitalComment on above:Performed By: #### NA #### [facility] [address] [address] [address] Allen SmithBilirubin [Mass/Vol]0.3 mg/dLNormal0.2-1.0The [facility] Comment on above:Performed By: #### NA #### [facility] [address] [address] [address] Allen SmithCalcium [Mass/Vol]9.5 mg/dLNormal8.5-10.1The [facility] Comment on above:Performed By: #### NA #### [facility] [address] [address] [address] Allen SmithChloride [Moles/Vol]87 mmol/LCritically ypm77-657Edh [facility] HospitalComment on above:Performed By: #### NA #### [facility] [address] [address] [address] Allen SmithCO2 [Moles/Vol]22.5 mmol/DJpkrua61.0-32.0The [facility] Comment on above:Performed By: #### NA #### [facility] [address] [address] [address] Allen SmithCreatinine [Mass/Vol]1.07 mg/dLCritically high0.55-1.02The [facility] HospitalComment on above:Performed By: #### NA #### [facility] [address] [address] [address] Villa ChangEGFR-AF ZIMBABWEAN>60Normal>=60The [facility] HospitalComment on above:Performed By: #### NA #### [facility] [address] [address] [address] Allen SunGFR-NON AF OUCYRVKH43 mL/min/1.26a3Mxfwbhkqlg low>=60The [facility] HospitalComment on above:Performed By: #### NA #### [facility] [address] [address] [address] Allen SmithGlobulin (S) [Mass/Vol]6.2 g/dLNormalThe [facility] HospitalComment on above:Performed By: #### NA #### [facility] [address] [address] [address] Allen SmithGlucose [Mass/Vol]182 mg/dLCritically bfol31-528Pah [facility] HospitalComment on above:Performed By: #### NA #### [facility] [address] [address] [address] Allen SmithPotassium [Moles/Vol]4.3 mmol/LNormal3.5-5.1The [facility] Comment on above:Performed By: #### NA #### [facility] [address] [place] [address] Dr. Allen SmithProtein [Mass/Vol]9.2 g/dLCritically high6.4-8.2The [facility] HospitalComment on above:Performed By: #### NA #### [facility] [address] [place] [address] Dr. Allen SmithSodium [Moles/Vol]123 mmol/LCritically xdm107-051Mfj [facility] HospitalComment on above:Performed By: #### NA #### [facility] [address] [place] [address] Dr. Allen SmithUrea nitrogen [Mass/Vol]12.0 mg/dLNormal7.0-18.0The [facility] HospitalComment on above:Performed By: #### NA #### [facility] [address] [place] [address] Dr. Allen Morgan nitrogen/Creatinine [Mass ratio]11.2 mg/mgNoMemorial HospitalComment on above:Performed By: #### NA #### [facility] [address] [place] [address] Dr. Allen SmithPROTIMEon 49-23-9043QJQ Coag (PPP) [Relative time]0.98 {INR} NormalThe [facility] HospitalComment on above:Performed By: #### TSH #### [facility] [address] [place] [address] Dr. Allen Morris GUIDELINESSEE BELOWUniversity Hospitals Beachwood Medical CenterComment on above:Result Comment: DESIRED INR: 2.0 - 3.0 CONDITIONS NOT LISTED BELOW 2.5 - 3.5 FOR PROSTHETIC HEART VALVE REPLACEMENT 2.5 - 3.5 RECURRENT THROMBOSIS Performed By: #### TSH #### [facility] [address] [place] [address] Dr. Allen SmithPT Coag (PPP) [Time]10.4 sNormal9.0-11.6The [facility] Comment on above:Performed By: #### TSH #### [facility] [address] [place] [address] Dr. Allen Madrigal 52-99-0969eONK Coag (Bld) [Time]29.5 nSqtckh37.3-36.2The [facility] HospitalComment on above:Performed By: #### TSH #### [facility] [address] [place] [address] Dr. Allen SmithRESPIRATORY PANEL PLUSon 70-54-2331VfgrseazvvBsw detectedNormal NOT DETECTEDThe [facility] HospitalComment on above:Performed By: #### NA #### [facility] [address] [place] [address] Dr. Allen Casas ParapertusisNot detectedNormalNOT DETECTEDThe [facility] HospitalComment on above:Performed By: #### NA #### [facility] [address] [place] [address] Dr. Allen Casas PertussisNot detectedNormalNOT DETECTEDThe [facility] Comment on above:Performed By: #### NA #### [facility] [address] [place] [address] Dr. Allen SmithChlamydia PneumoniaeNot detectedNormalNOT DETECTEDThe [facility] HospitalComment on above:Performed By: #### NA #### [facility] [address] [place] [address] Dr. Allen SmithCoronavirus 229ENot detectedNormalNOT DETECTEDThe [facility] HospitalComment on above:Performed By: #### NA #### [facility] [address] [place] [address] Dr. Allen SmithCoronavirus VMG8Obl detectedNormalNOT DETECTEDThe [facility] HospitalComment on above:Performed By: #### NA #### [facility] [address] [place] [address] Dr. Allen SmithCoronavirus DF39Wqs detectedNormalNOT DETECTEDThe [facility] HospitalComment on above:Performed By: #### NA #### [facility] [address] [address] [address] Allen SmithCoronavirus NW41Lxo detectedNormalNOT DETECTEDThe [facility] HospitalComment on above:Performed By: #### NA #### [facility] [address] [address] [address] Allen Pascual H1Not detectedNormalNOT DETECTEDThe [facility] Comment on above:Performed By: #### NA #### [facility] [address] [address] [address] Allen Pascual H1 2009Not detectedNormalNOT DETECTEDThe [facility] HospitalComup health system on above:Performed By: #### NA #### [facility] [address] [address] [address] Allen Pascual H3Not detectedNormalNOT DETECTEDThe [facility] Comment on above:Performed By: #### NA #### [facility] [address] [address] [address] Allen Felipe BNot detectedNormalNOT DETECTEDThe [facility] Comment on above:Performed By: #### NA #### [facility] [address] [address] [address] Allen MorrowapneumovirusNot detectedNormalNOT DETECTEDThe [facility] HospitalComup health system on above:Performed By: #### NA #### [facility] [address] [address] [address] Allen Bustamante. PneumoniaeNot detectedNormalNOT DETECTEDThe [facility] HospitalComup health system on above:Performed By: #### NA #### [facility] [address] [address] [address] Allen Mathew 1Not detectedNormalNOT DETECTEDThe [facility] HospitalComup health system on above:Performed By: #### NA #### [facility] [address] [address] [address] Allen Mathew 2Not detectedNormalNOT DETECTEDThe [facility] HospitalComup health system on above:Performed By: #### NA #### [facility] [address] [place] [address] Dr. Allen Mathew 3DetectedAbnormalNOT DETECTEDThe [facility] Comment on above:Performed By: #### NA #### [facility] [address] [place] [address] Dr. Allen Mathew 4Not detectedNormalNOT DETECTEDThe [facility] HospitalComment on above:Performed By: #### NA #### [facility] [address] [place] [address] Dr. Allen SmithRhelizabeth/EnterovirusNot detectedNormalNOT DETECTEDThe [facility] HospitalComment on above:Performed By: #### NA #### [facility] [address] [place] [address] Dr. Allen Nguyen Header 1RESPIRATORY PANEL: VIRUSESUniversity Hospitals [facility] Comment on above:Performed By: #### NA #### [facility] [address] [place] [address] Dr. Allen Nguyen Header 2RESPIRATORY PANEL: BACTERIAUniversity Hospitals Beachwood Medical CenterComment on above:Performed By: #### NA #### [facility] [address] [place] [address] Dr. Allen AmaroVNot detectedNormalNOT DETECTEDThe [facility] HospitalComup health system on above:Performed By: #### NA #### [facility] [address] [place] [address] Dr. Allen Trotter-CoV-2 (COVID-19) RNA BJORN+probe Ql (Unsp spec)Not detected NormalNOT DETECTEDThe [facility] HospitalComment on above:Performed By: #### NA #### [facility] [address] [place] [address] Dr. Allen SmithSTREPT SCREENon 63-36-4084HARYZ SCREEN ANegativeNormalNEGATIVEThe [facility] HospitalComup health system on above:Performed By: #### NA #### [facility] [address] [place] [address] Dr. Allen MonaeHopedro 49-20-9848TJG6.471 uIU/mLNormal0.358-3.740The Brittney HospitalComment on above:Performed By: #### TSH #### [facility] [address] [address] [address] Allen SmithXR CHEST 1 Von [id number] CHEST 1 VEXAM: XR CHEST 1 V HISTORY: SHORTNESS OF [...] Electronically authenticated by: OLIVIA JAVED Date: 2023-01-24 12:53Normal [facility] Vital Signs Date TimeVital SignValuePerforming IxfyfjudeRhzpokux08-14-6931 13:18-0400Body jahvua890.5 cmVfelicity Baron APRN-FARM ASSISTANT Work Phone: [facility]06-26-2025 13:18-0400Body mass index (BMI) [Ratio]39.9 kg/q4Gqtdcxf Tod BONILLA-FARM ASSISTANT Work Phone: [facility]06-26-2025 13:18-0400Body .71 [degF]Torolaurita Baron APRN-FARM ASSISTANT Work Phone: [facility]06-26-2025 13:18-0400Body idnpla80.97 kgToro Garciapietro CASEYN-FARM ASSISTANT Work Phone: [facility]06-26-2025 13:18-0400Diastolic blood vbrohvie44 mm[Hg]Toro Tod CASEYN-FARM ASSISTANT Work Phone: [facility]06-26-2025 13:18-0400Heart rate 100 /minToro Baron APRN-FARM ASSISTANT Work Phone: [facility]06-26-2025 13:18-0400 Respiratory rate20 /minToro Baron APRN-FARM ASSISTANT Work Phone: [facility]06-26-2025 13:18-2342QyA1% (BldA) [Mass fraction]98 %Toro Baron APRN-FARM ASSISTANT Work Phone: [facility]06-26-2025 13:18-0400Systolic blood uhpxftsy056 mm[Hg]Toro Baron APRN-FARM ASSISTANT Work Phone: [facility]04-28-2025 13:39-0400Body hujttayzqrq50.6 [degF]Rogers Wilson STONE DRILLER HELPER Work Phone: [facility]04-28-2025 13:39-0400 Body .42 kgRogers Wilson STONE DRILLER HELPER Work Phone: [facility]04-28-2025 13:39-0400 Diastolic blood clnwiidg31 mm[Hg]Rogers Wilson STONE DRILLER HELPER Work Phone: [facility]04-28-2025 13:39-0400 Heart rate82 /Robert Wilson STONE DRILLER HELPER Work Phone: [facility]04-28-2025 13:39-0400 Inhaled oxygen flow rate2 L/Robert Wilson STONE DRILLER HELPER Work Phone: [facility]04-28-2025 13:39-0400 Respiratory rate18 /Robert Wilson STONE DRILLER HELPER Work Phone: [facility]04-28-2025 13:39-0400 SaO2% (BldA) [Mass fraction]98 %Rogers Wilson STONE DRILLER HELPER Work Phone: [facility]04-28-2025 13:39-0400 Systolic blood mm[Hg]Rogers Wilson STONE DRILLER HELPER Work Phone: [facility]03-17-2025 11:35-0400 Body vlaorq778.5 cmValerie Baron STEVEDORING SUPERINTENDENT-FARM ASSISTANT Work Phone: [facility]03-17-2025 11:35-0400Body mass index (BMI) [Ratio]38.63 kg/y8MlfbenqToro Baron APRN-FARM ASSISTANT Work Phone: [facility]03-17-2025 11:35-0400Body ooiwhdtmivd23.2 [degF]Toro Baron APRN-FARM ASSISTANT Work Phone: [facility]03-17-2025 11:35-0400Body pfyheo23.8 kgToro Baron APRN-FARM ASSISTANT Work Phone: [facility]03-17-2025 11:35-0400Diastolic blood ldkbtoca28 mm[Hg]Toro Baron APRN-FARM ASSISTANT Work Phone: [facility]03-17-2025 11:35-0400Heart rate 90 /minToro Baron APRN-FARM ASSISTANT Work Phone: [facility]03-17-2025 11:35-0400 Respiratory rate18 /minToro Baron APRN-FARM ASSISTANT Work Phone: [facility]03-17-2025 11:35-1477HoE4% (BldA) [Mass fraction]96 %Toro Baron APRN-FARM ASSISTANT Work Phone: [facility]03-17-2025 11:35-0400Systolic blood wslzhain694 mm[Hg]Toro Baron STEVEDORING SUPERINTENDENT-FARM ASSISTANT Work Phone: [facility]02-24-2025 14:49-0500Body mfezqh81.7 kgRogers Wilson STONE DRILLER HELPER Work Phone: [facility]02-24-2025 14:49-0500 Diastolic blood nvgiusif13 mm[Hg]Rogers Wilson STONE DRILLER HELPER Work Phone: [facility]02-24-2025 14:49-0500 Heart rate87 /Robert Wilson STONE DRILLER HELPER Work Phone: [phone]02-24-2025 14:49-0500 Inhaled oxygen flow rate2 L/minRogers Sanchezs STONE DRILLER HELPER Work Phone: 1(960)617-[address] [place], [place] 0171802-24-2025 14:49-0500 Respiratory rate20 /minRogers Sanchezs STONE DRILLER HELPER Work Phone: 1(163)765-[address] [place], [place] 0171802-24-2025 14:49-0500 SaO2% (BldA) [Mass fraction]99 %Rogers Wilson STONE DRILLER HELPER Work Phone: 1(095)965-[address] [place], [place] 0171802-24-2025 14:49-0500 Systolic blood cxnhvozo341 mm[Hg]Rogers Wilson STONE DRILLER HELPER Work Phone: [phone])[address]01-27-2025 13:25-0500 Body .64 cmRogers Wilson STONE DRILLER HELPER Work Phone: 1(959)937-[address] [place], [place] 017[address]01-27-2025 13:25-0500 Body mass index (BMI) [Ratio]33.4 kg/m2Rogers Wilson STONE DRILLER HELPER Work Phone: 1(763)9-[address] [place], [place] 0171801-27-2025 13:25-0500 Body sxrusidamak17.1 [degF]Rogers Wilson STONE DRILLER HELPER Work Phone: 1(508)793-[address] [place], [place] 017[address]01-27-2025 13:25-0500 Body yltace53.89 kgRogers Wilson STONE DRILLER HELPER Work Phone: 1(933)820-[address] [place], [place] 017[address]01-27-2025 13:25-0500 Diastolic blood sefklazv30 mm[Hg]Rogers Wilson STONE DRILLER HELPER Work Phone: 1(144)250-[address] [place], [place] [address]17[address]01-27-2025 13:25-0500 Heart rate60 /Robert Sanchezs STONE DRILLER HELPER Work Phone: [phone]01-27-2025 13:25-0500 Inhaled oxygen flow rate2 L/minRogers Sanchezs STONE DRILLER HELPER Work Phone: [facility]01-27-2025 13:25-0500 Respiratory rate18 /Robert Wilson STONE DRILLER HELPER Work Phone: [phone]01-27-2025 13:25-0500 SaO2% (BldA) [Mass fraction]100 %Rogers Sanchezs STONE DRILLER HELPER Work Phone: [facility]01-27-2025 13:25-0500 Systolic blood ekxkuczs212 mm[Hg]Rgoers Sanchezs STONE DRILLER HELPER Work Phone: [phone]12-31-2024 09:29-0500 Body pctompixnjn92.5 [degF]Rogers Sanchezs STONE DRILLER HELPER Work Phone: [phone]12-31-2024 09:29-0500 Body fqtzyh44.98 kgMarerna Sanchezs STONE DRILLER HELPER Work Phone: [phone]12-31-2024 09:29-0500 Diastolic blood akxqnoxm28 mm[Hg]Rogers Sanchezs STONE DRILLER HELPER Work Phone: [phone]12-31-2024 09:29-0500 Heart rate80 /Robert Wilson STONE DRILLER HELPER Work Phone: [phone])[phone]12-31-2024 09:29-0500 Respiratory rate16 /Robert Wilson STONE DRILLER HELPER Work Phone: [phone]12-31-2024 09:29-0500 SaO2% (BldA) [Mass fraction]99 %Rogers Sanchezs STONE DRILLER HELPER Work Phone: [phone]12-31-2024 09:29-0500 Systolic blood jzkakcke128 mm[Hg]Rogers Sanchezs STONE DRILLER HELPER Work Phone: [phone]12-16-2024 13:00-0500 Body dvxytzspgov30.1 [degF]Rogers Sanchezs STONE DRILLER HELPER Work Phone: [phone]12-16-2024 13:00-0500 Diastolic blood qgehjuwp84 mm[Hg]Rogers Wilson STONE DRILLER HELPER Work Phone: [phone]-[facility]12-16-2024 13:00-0500 Heart rate71 /Robert Wilson STONE DRILLER HELPER Work Phone: [phone]12-16-2024 13:00-0500 Inhaled oxygen flow rate2 L/Robert Wilson STONE DRILLER HELPER Work Phone: 1(851)990-[address] [place], [place] 0171812-16-2024 13:00-0500 Respiratory rate22 /Robert Wilson STONE DRILLER HELPER Work Phone: 1(645)887-[address] [place], [place] 017[address]12-16-2024 13:00-0500 SaO2% (BldA) [Mass fraction]100 %Rogers Wilson STONE DRILLER HELPER Work Phone: [phone]12-16-2024 13:00-0500 Systolic blood kkpwyfdz624 mm[Hg]Rogers Wilson STONE DRILLER HELPER Work Phone: 1(245)355-[address] [place], [place] [address]09-23-2024 12:56-0400 Body fwevfz040.1 cmFNP Rogers Wilson Work Phone: [phone]09-23-2024 12:56-0400 Body mass index (BMI) [Ratio]31.1 kg/m2FNP Rogers Wilson Work Phone: [facility]09-23-2024 12:56-0400 Body kqhpayzirox52.9 [degF]STONE DRILLER HELPER Rogers Wilson Work Phone: [phone]09-23-2024 12:56-0400 Body .82 kgFNP Rogers Wilson Work Phone: [phone]09-23-2024 12:56-0400 Diastolic blood rbgunucn76 mm[Hg]STONE DRILLER HELPER Rogers Wilson Work Phone: [phone]09-23-2024 12:56-0400 Heart rate61 /minFNP Rogers Wilson Work Phone: [phone]09-23-2024 12:56-0400 Inhaled oxygen flow rate2 L/minFNP Rogers Wilson Work Phone: [phone]09-23-2024 12:56-0400 Respiratory rate18 /minFNP Rogers Wilson Work Phone: [phone]09-23-2024 12:56-0400 SaO2% (BldA) [Mass fraction]97 %STONE DRILLER HELPER Rogers Wilson Work Phone: [phone]36[facility]09-23-2024 12:56-0400 Systolic blood bzgcfbas629 mm[Hg]STONE DRILLER HELPER Rogers Wilson Work Phone: [phone])13374 [address]09-03-2024 15:51-0400 Body yjhnax051.1 cmFNP Rogers Wislon Work Phone: 1(139)[address]09-03-2024 15:51-0400 Body mass index (BMI) [Ratio]30.2 kg/m2FNP Rogers Wilson Work Phone: [phone])[address]09-03-2024 15:51-0400 Body wewtcinfdrc58.6 [degF]STONE DRILLER HELPER Rogers Wilson Work Phone: [phone]45[facility]09-03-2024 15:51-0400 Body .58 kgFNP Rogers Wilson Work Phone: [phone]09-03-2024 15:51-0400 Diastolic blood uoqucmaf18 mm[Hg]STONE DRILLER HELPER Rogers Wilson Work Phone: [phone]09-03-2024 15:51-0400 Heart rate62 /minFNP Rogers Wilson Work Phone: [phone]09-03-2024 15:51-0400 Respiratory rate18 /minFNP Rogers Wilson Work Phone: [phone]09-03-2024 15:51-0400 SaO2% (BldA) [Mass fraction]92 %STONE DRILLER HELPER Rogers Wilson Work Phone: 1(261)440-[address] [place], [place] [address]09-03-2024 15:51-0400 Systolic blood kloxugsf095 mm[Hg]STONE DRILLER HELPER Rogers Wilson Work Phone: 1(354)95974 [address]08-09-2024 11:45-0400 Inhaled oxygen flow rate2 L/minFNP Rogers Wilson Work Phone: 1(992)02874 [address]08-09-2024 09:49-0400 Body drzzoamylmx44 [degF]STONE DRILLER HELPER Rogers Wilson Work Phone: [phone])60674 [address]08-09-2024 09:49-0400 Body ghafgm79.73 kgFNP Rogers Wilson Work Phone: 1(045)[address] [place], [place] 7593708-09-2024 09:49-0400 Diastolic blood ovysspsx88 mm[Hg]STONE DRILLER HELPER Rogers Wilson Work Phone: [phone])[address]08-09-2024 09:49-0400 Heart rate65 /minFNP Rogers Wilson Work Phone: 1(485)9[address]74 [address]08-09-2024 09:49-0400 Respiratory rate18 /minFNP Rogers Wilson Work Phone: [phone])15[address]08-09-2024 09:49-0400 SaO2% (BldA) [Mass fraction]99 %STONE DRILLER HELPER Rogers Wilson Work Phone: 1(804)005-[address] [place], [place] 0171808-09-2024 09:49-0400 Systolic blood zlbhynzn184 mm[Hg]STONE DRILLER HELPER Rogers Wilson Work Phone: 1([phone])76674 [address]06-28-2024 10:55-0400 Inhaled oxygen flow rate2 L/minFNP Rogers Wilson Work Phone: [phone])09174 [address]06-28-2024 09:50-0400 Body uxhpxdaxeca08.1 [degF]STONE DRILLER HELPER Rogers Wilson Work Phone: 1([phone])58[address]06-28-2024 09:50-0400 Body xnxtwu43.65 kgFNP Rogers Wilson Work Phone: [phone]06-28-2024 09:50-0400 Diastolic blood rhkhlyck28 mm[Hg]STONE DRILLER HELPER Rogers Wilson Work Phone: [phone]06-28-2024 09:50-0400 Heart rate65 /minFNP Rogers Wilson Work Phone: 1(685)779-[address] [place], [place] [address]06-28-2024 09:50-0400 Inhaled oxygen flow rate2 L/minFNP Rogers Wilson Work Phone: 1([phone])30774 [address]06-28-2024 09:50-0400 Respiratory rate20 /minFNP Rogers Wilson Work Phone: [phone]06-28-2024 09:50-0400 SaO2% (BldA) [Mass fraction]100 %STONE DRILLER HELPERJose Luis Wilson Work Phone: [phone]06-28-2024 09:50-0400 Systolic blood udhvmvjc508 mm[Hg]STONE DRILLER HELPER Rogers Wilson Work Phone: [facility]04-30-2024 08:54-0400 Body xnaciy496.5 cmRogers Wilson STEVEDORING SUPERINTENDENT-STONE DRILLER HELPER Work Phone: [facility]04-30-2024 08:54-0400Body mass index (BMI) [Ratio]28.68 kg/m2Rogers Wilson STEVEDORING SUPERINTENDENT-STONE DRILLER HELPER Work Phone: [facility]04-30-2024 08:54-0400Body upfbwgqbhoq86.9 [degF]Rogers Wilson STEVEDORING SUPERINTENDENT-STONE DRILLER HELPER Work Phone: [facility]04-30-2024 08:54-0400Body bltyqa68.12 kgRogers Wilson STEVEDORING SUPERINTENDENT-STONE DRILLER HELPER Work Phone: [facility]04-30-2024 08:54-0400Diastolic blood seaqmeci19 mm[Hg]Rogers Wilson APRN-STONE DRILLER HELPER Work Phone: [facility]04-30-2024 08:54-0400Heart rate 63 /Robert Wilson APRN-STONE DRILLER HELPER Work Phone: [facility]04-30-2024 08:54-0400 Respiratory rate24 /Robert Wilson STEVEDORING SUPERINTENDENT-STONE DRILLER HELPER Work Phone: [facility]04-30-2024 08:54-5532ZpT2% (BldA) [Mass fraction]99 %Rogers Wilson APRN-STONE DRILLER HELPER Work Phone: [facility]04-30-2024 08:54-0400Systolic blood ikxiksgl960 mm[Hg]Rogers Wilson APRN-STONE DRILLER HELPER Work Phone: [facility]04-18-2024 13:00-0400Body kerwbjasgxy77.6 [degF]STONE DRILLER HELPER Rogers Wilson Work Phone: [facility]04-18-2024 13:00-0400 Diastolic blood jgaqcvjm63 mm[Hg]STONE DRILLER HELPER Rogers Wilson Work Phone: [facility]04-18-2024 13:00-0400 Heart rate62 /minFNP Rogers Wilson Work Phone: [facility]04-18-2024 13:00-0400 Respiratory rate18 /minFNP Rogers Wilson Work Phone: [facility]04-18-2024 13:00-0400 SaO2% (BldA) [Mass fraction]100 %STONE DRILLER HELPER Rogers Wilson Work Phone: [facility]04-18-2024 13:00-0400 Systolic blood diykyhoi621 mm[Hg]STONE DRILLER HELPER Rogers Wilson Work Phone: [facility]03-29-2024 09:56-0400 Inhaled oxygen flow rate2 L/minFNP Rogers Wilson Work Phone: [facility]03-29-2024 08:52-0400 Body lgihhjmqnon95.2 [degF]STONE DRILLER HELPERJose Luis Wilson Work Phone: [facility]03-29-2024 08:52-0400 Body blznuf64.49 kgFNP Rogers Wilson Work Phone: [facility]03-29-2024 08:52-0400 Diastolic blood zvidwdch14 mm[Hg]STONE DRILLER HELPER Rogers Wilson Work Phone: [facility]03-29-2024 08:52-0400 Heart rate87 /minFNP Rogers Wilson Work Phone: [phone])[phone]03-29-2024 08:52-0400 Inhaled oxygen flow rate2 L/minFNP Rogers Wilson Work Phone: [phone]([phone]03-29-2024 08:52-0400 Respiratory rate18 /minFNP Rogers Wilson Work Phone: [facility]03-29-2024 08:52-0400 SaO2% (BldA) [Mass fraction]99 %DEIDRE Wilson Work Phone: [facility]03-29-2024 08:52-0400 Systolic blood mpsazojm584 mm[Hg]DEIDRE Wilson Work Phone: [facility]03-26-2024 14:57-0400 Body .5 cmRogers Wilson APRN-STONE DRILLER HELPER Work Phone: [facility]03-26-2024 14:57-0400Body mass index (BMI) [Ratio]27.44 kg/m2Rogers Wilson APRN-STONE DRILLER HELPER Work Phone: [facility]03-26-2024 14:57-0400Body rtejonmqtor30.39 [degF]Rogers Wilson STEVEDORING SUPERINTENDENT-STONE DRILLER HELPER Work Phone: [facility]03-26-2024 14:57-0400Body hyzskz30.04 kgRogers Wilson STEVEDORING SUPERINTENDENT-STONE DRILLER HELPER Work Phone: [facility]03-26-2024 14:57-0400Diastolic blood pwvjlugc67 mm[Hg]Rogers Wilson STEVEDORING SUPERINTENDENT-STONE DRILLER HELPER Work Phone: [facility]03-26-2024 14:57-0400Heart rate 73 /Robert Wilson STEVEDORING SUPERINTENDENT-STONE DRILLER HELPER Work Phone: [facility]03-26-2024 14:57-0400 Respiratory rate20 /minRogers Wilson STEVEDORING SUPERINTENDENT-STONE DRILLER HELPER Work Phone: [facility]03-26-2024 14:57-5063EmX3% (BldA) [Mass fraction]99 %Rogers Wilson STEVEDORING SUPERINTENDENT-STONE DRILLER HELPER Work Phone: [facility]03-26-2024 14:57-0400Systolic blood hzkoyhin412 mm[Hg]Rogers Wilson STEVEDORING SUPERINTENDENT-STONE DRILLER HELPER Work Phone: [facility]03-07-2024 13:18-0500Body jhgcdzixsla66 [degF]STONE DRILLER HELPER Rogers Wilson Work Phone: [facility]03-07-2024 13:18-0500 Diastolic blood addcvhxm70 mm[Hg]STONE DRILLER HELPER Rogers Wilson Work Phone: [facility]03-07-2024 13:18-0500 Heart rate59 /minFNP Rogers Wilson Work Phone: [facility]03-07-2024 13:18-0500 Respiratory rate20 /minFNP Rogers Wilson Work Phone: [facility]03-07-2024 13:18-0500 SaO2% (BldA) [Mass fraction]99 %STONE DRILLER HELPER Rogers Wilson Work Phone: [facility]03-07-2024 13:18-0500 Systolic blood axzdnpvk222 mm[Hg]STONE DRILLER HELPER Rogers Wilson Work Phone: [phone]02-16-2024 10:30-0500 Body rizdzj25.59 kgFNP Rogers Wilson Work Phone: 1(356)[phone]02-16-2024 09:44-0500 Body nncaqwsmpuz81 [degF]STONE DRILLER HELPER Rogers Wilson Work Phone: 1(659)[phone]02-16-2024 09:44-0500 Diastolic blood mm[Hg]STONE DRILLER HELPER Rogers Wilson Work Phone: 1(918)[phone]02-16-2024 09:44-0500 Heart rate72 /minFNP Rogers Wilson Work Phone: 1(981)[address]02-16-2024 09:44-0500 Inhaled oxygen flow rate2 L/minFNP Rogers Wilson Work Phone: 1(312)250-[address] [place], [place] [address]1802-16-2024 09:44-0500 Respiratory rate20 /minFNP Rogers Wilson Work Phone: [phone]02-16-2024 09:44-0500 SaO2% (BldA) [Mass fraction]100 %STONE DRILLER HELPER Rogers Wilson Work Phone: [phone]02-16-2024 09:44-0500 Systolic blood alrnfqvz481 mm[Hg]STONE DRILLER HELPER Rogers Wilson Work Phone: [phone]01-25-2024 14:23-0500 Inhaled oxygen flow rate2 L/minFNP Rogers Wilson Work Phone: 1([phone]01-25-2024 13:13-0500 Body ixcacmuidpc95.1 [degF]STONE DRILLER HELPER Rogers Wilson Work Phone: [facility]01-25-2024 13:13-0500 Body vhwoqr64.85 kgFNP Rogers Wilson Work Phone: 1([phone])[phone]01-25-2024 13:13-0500 Diastolic blood ueoyqams39 mm[Hg]STONE DRILLER HELPER Rogers Wilson Work Phone: [phone]01-25-2024 13:13-0500 Heart rate77 /minFNP Rogers Sanchezs Work Phone: [facility]01-25-2024 13:13-0500 Inhaled oxygen flow rate2 L/minFNP Rogers Wilson Work Phone: [facility]01-25-2024 13:13-0500 Respiratory rate20 /minFNP Rogers Sanchezs Work Phone: 1([phone]01-25-2024 13:13-0500 SaO2% (BldA) [Mass fraction]97 %STONE DRILLER HELPER Rogers Wilson Work Phone: [phone]01-25-2024 13:13-0500 Systolic blood bxqrqigw981 mm[Hg]STONE DRILLER HELPER Rogers Wilson Work Phone: 1([phone]01-23-2024 09:40-0500 Body wupbgkcjwul39.9 [degF]STONE DRILLER HELPER Rogers Wilson Work Phone: [facility]01-23-2024 09:40-0500 Diastolic blood wsdcgakn69 mm[Hg]STONE DRILLER HELPER Rogers Wilson Work Phone: [facility]01-23-2024 09:40-0500 Heart myft443 /minFNP Rogers Wilson Work Phone: [facility]01-23-2024 09:40-0500 Inhaled oxygen flow rate2 L/minFNP Rogers Wilson Work Phone: [facility]01-23-2024 09:40-0500 Respiratory rate20 /minFNP Rogers Sanchezs Work Phone: [facility]01-23-2024 09:40-0500 SaO2% (BldA) [Mass fraction]100 %STONE DRILLER HELPER Rogers Daniels Work Phone: 1(061)335-[address] [place], [place] 0171801-23-2024 09:40-0500 Systolic blood xqoisgvy317 mm[Hg]STONE DRILLER HELPER Rogers Wilson Work Phone: 1(433)[address] [place], [place] 2839801-23-2024 06:00-0500 Body ouotwc70.9 kgFNP Rogers Wilson Work Phone: 1(340)[address] [place], [place] 2839801-19-2024 16:43-0500 Body unmxct893.1 cmFNP Rogers Wilson Work Phone: 1(869)[address] [place], [place] 2839801-04-2024 10:36-0500 Body rmhgyrgfuut56.9 [degF]STONE DRILLER HELPER Rogers Wilson Work Phone: 1(338)[address] [place], [place] 2839801-04-2024 10:36-0500 Body vdodht45.59 kgFNP Rogers Wilson Work Phone: 1(998)[address] [place], [place] 2839801-04-2024 10:36-0500 Diastolic blood kjgiwepb07 mm[Hg]STONE DRILLER HELPER Rogers Wilson Work Phone: 1(715)[address] [place], [place] 2839801-04-2024 10:36-0500 Heart rate66 /minFNP Rogers Wilson Work Phone: 1(772)[address] [place], [place] 2839801-04-2024 10:36-0500 Inhaled oxygen flow rate2 L/minFNP Rogers Wilson Work Phone: 1(264)[facility] [place], [place] [address]01-04-2024 10:36-0500 Respiratory rate20 /minFNP Rogers Wilson Work Phone: 1(975)9-[address] [place], [place] [address]01-04-2024 10:36-0500 SaO2% (BldA) [Mass fraction]100 %STONE DRILLER HELPER Rogers Wilson Work Phone: 1(486)[address]01-04-2024 10:36-0500 Systolic blood lzfkpdma905 mm[Hg]STONE DRILLER HELPER Rogers Wilson Work Phone: 1(223)[address] [place], [place] 2839812-12-2023 12:52-0500 Body vmhnyuppsxn45.3 [degF]STONE DRILLER HELPER Rogers Wilson Work Phone: [facility]12-12-2023 12:52-0500 Body nuncce67.31 kgFNP Rogers Wilson Work Phone: [facility]12-12-2023 12:52-0500 Diastolic blood vfqnfinx61 mm[Hg]STONE DRILLER HELPER Rogers Wilson Work Phone: 1([phone]12-12-2023 12:52-0500 Heart rate83 /minFNP Rogers Wilson Work Phone: 1([phone]12-12-2023 12:52-0500 Respiratory rate16 /minFNP Rogers Wilson Work Phone: 1([phone]12-12-2023 12:52-0500 SaO2% (BldA) [Mass fraction]100 %STONE DRILLER HELPER Rogers Wilson Work Phone: [facility]12-12-2023 12:52-0500 Systolic blood zbaygdpf050 mm[Hg]STONE DRILLER HELPER Rogers Wilson Work Phone: [facility]11-27-2023 13:02-0500 Body uftobpjknmx64.3 [degF]STONE DRILLER HELPER Rogers Wilson Work Phone: [facility]11-27-2023 13:02-0500 Body ggrkyg80.31 kgFNP Rogers Wislon Work Phone: [facility]11-27-2023 13:02-0500 Diastolic blood mm[Hg]STONE DRILLER HELPER Rogers Wilson Work Phone: [facility]11-27-2023 13:02-0500 Heart rate90 /minFNP Rogers Wilson Work Phone: [phone]11-27-2023 13:02-0500 Inhaled oxygen flow rate2 L/minFNP Rogers Wilson Work Phone: 1([phone]11-27-2023 13:02-0500 Respiratory rate20 /minFNP Rogers Wilson Work Phone: [facility]11-27-2023 13:02-0500 SaO2% (BldA) [Mass fraction]100 %STONE DRILLER HELPER Rogers Wilson Work Phone: [facility]11-27-2023 13:02-0500 Systolic blood jzotgzek252 mm[Hg]STONE DRILLER HELPER Rogers Wilson Work Phone: [facility]11-21-2023 14:30-0500 Diastolic blood mm[Hg]STONE DRILLER HELPER Rogers Wilson Work Phone: [facility]11-21-2023 14:30-0500 Heart rate80 /minFNP Rogers Wilson Work Phone: [facility]11-21-2023 14:30-0500 Inhaled oxygen flow rate2 L/minFNP Rogers Wilson Work Phone: 1([phone]11-21-2023 14:30-0500 Respiratory rate20 /minFNP Rogers Wilson Work Phone: [facility]11-21-2023 14:30-0500 SaO2% (BldA) [Mass fraction]100 %STONE DRILLER HELPER Rogers Wilson Work Phone: [facility]11-21-2023 14:30-0500 Systolic blood mqekbtyw142 mm[Hg]STONE DRILLER HELPER Rogers Wilson Work Phone: [facility]11-21-2023 11:55-0500 Body nvifpw832.1 cmFNP Rogers Wilson Work Phone: [facility]11-21-2023 11:55-0500 Body mwwjmclvfho61.6 [degF]STONE DRILLER HELPER Rogers Wilson Work Phone: [facility]11-21-2023 11:55-0500 Body .5 kgFNP Rogers Sanchezs Work Phone: [facility]11-10-2023 15:18-0500 Diastolic blood pmjbjhac13 mm[Hg]STONE DRILLER HELPER Rogers Wilson Work Phone: [phone]11-10-2023 15:18-0500 Heart rate68 /minFNP Rogers Wilson Work Phone: [facility]11-10-2023 15:18-0500 Respiratory rate16 /minFNP Rogers Wilson Work Phone: [facility]11-10-2023 15:18-0500 SaO2% (BldA) [Mass fraction]100 %STONE DRILLER HELPER Rogers Wilson Work Phone: [facility]11-10-2023 15:18-0500 Systolic blood buqwrmqd503 mm[Hg]STONE DRILLER HELPER Rogers Wilson Work Phone: [phone]11-10-2023 14:13-0500 Inhaled oxygen flow rate2 L/minFNP Rogers Wilson Work Phone: [facility]11-10-2023 14:00-0500 Body lkrfnvibynt43 [degF]STONE DRILLER HELPER Rogers Wilson Work Phone: [facility]10-30-2023 13:44-0400 Body qoxxdjfsmtb88.7 [degF]STONE DRILLER HELPER Rogers Wilson Work Phone: [phone]10-30-2023 13:44-0400 Body vxjrca03.77 kgFNP Rogers Wilson Work Phone: [facility]10-30-2023 13:44-0400 Diastolic blood fxyagkke27 mm[Hg]STONE DRILLER HELPER Rogers Wilson Work Phone: [facility]10-30-2023 13:44-0400 Heart rate83 /minFNP Rogers Wilson Work Phone: [facility]10-30-2023 13:44-0400 Respiratory rate20 /minFNP Rogers Wilson Work Phone: [facility]10-30-2023 13:44-0400 SaO2% (BldA) [Mass fraction]98 %STONE DRILLER HELPER Rogers Wilson Work Phone: [facility]10-30-2023 13:44-0400 Systolic blood jhejiuns716 mm[Hg]STONE DRILLER HELPER Rogers Wilson Work Phone: [facility]09-22-2023 13:38-0400 Body qkkouzlgugw29.5 [degF]STONE DRILLER HELPER Rogers Wilson Work Phone: [phone]09-22-2023 13:38-0400 Body .95 kgFNP Rogers Wilson Work Phone: [phone]09-22-2023 13:38-0400 Diastolic blood mm[Hg]STONE DRILLER HELPER Rogers Wilson Work Phone: [phone]09-22-2023 13:38-0400 Heart rate87 /minFAMA Wilson Work Phone: [facility]09-22-2023 13:38-0400 Inhaled oxygen flow rate2 L/minFNP Rogesr Wilson Work Phone: [facility]09-22-2023 13:38-0400 Respiratory rate20 /minFNP Rogers Wilson Work Phone: [facility]09-22-2023 13:38-0400 SaO2% (BldA) [Mass fraction]100 %STONE DRILLER HELPER Rogers Wilson Work Phone: [facility]09-22-2023 13:38-0400 Systolic blood mm[Hg]STONE DRILLER HELPER Rogers Wilson Work Phone: [facility]09-22-2023 13:21-0400 Body jzzefd727.1 cmFNP Rogers Wilson Work Phone: [facility] Encounters Encounter DateEncounter TypeCare ProviderFacilityStart: 07-14-2025 End: 48-27-7774dhhfpilfvnUCHMKettering Health Daytontart: 04-14-2025 End: 97-41-4444ueagffemjpQTCWKettering Health Daytontart: 03-27-2025 End: 09-17-3724Dkyhix outpatient visit 15 minutesToro Baron APRN-FARM ASSISTANT Work Phone: [facility] Internal Medicine - Family MedicineComment on above:Left leg cellulitis (Primary Dx)Start: 03-27-2025 End: 77-03-5482igqytocwqfPOJPNDOOverlake [facility] Start: 18-95-6155Xzseaqzket Yi Wilson STONE DRILLER HELPER Work Phone[facility] Work Phone: Start: 01-27-2025 End: 49-22-1513trrxezycouRltw R Kuns STONE DRILLER HELPER Work Phone: [facility] Work Phone: Start: 01-27-2025 End: 43-93-9045Lnogvxf encounter procedureRogers Wilson STONE DRILLER HELPER Work Phone: [facility] Work Phone: Start: 12-16-2024 End: 40-56-0620Kcvuwe outpatient visit 25 minutesToro Baron APRN-FARM ASSISTANT Work Phone: [facility] Internal Medicine - Family MedicineComment on above:Arthritis, multiple joint involvement (Primary Dx); Renal cell carcinoma of right kidney (CMS-HCC); Panlobular emphysema (CMS-HCC); 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); Obesity, morbid ([facility]-HCC)Start: 12-16-2024 End: 08-03-5030vloiianpmcLVWOMGSOverlake Hospital Medical Center [facility] Start: 04-90-0682Lvzdtlknyr Yi Wilson STONE DRILLER HELPER Work Phone: [facility] Work Phone: Start: 11-25-2024 End: 65-53-4820uohfqcfpqjGqss R Kuns STONE DRILLER HELPER Work Phone: [facility] Work Phone: Start: 11-25-2024 End: 37-42-4097Jjafsus encounter procedureRogers Wilson STONE DRILLER HELPER Work Phone: [facility] Work Phone: Start: 11-04-2024 End: 83-89-3236wagxeskdzjXNPTSZYMagruder Hospital Start: 75-68-8016Ulolnjzygy RecurringRogers Wilson STONE DRILLER HELPER Work Phone: [facility] Work Phone: Start: 10-28-2024 End: 76-25-4525nyatbljwxyWhem R Kuns STONE DRILLER HELPER Work Phone: [facility] Work Phone: Start: 10-28-2024 End: 96-79-1081Hfpxmyf encounter procedureRogers Wilson STONE DRILLER HELPER Work Phone: [facility] Work Phone: Start: 10-01-2024 End: 00-95-6456Pmmykcry Result EncounterAries Chavez DO Work Phone: [facility] External Department UnsolicitedStart: 10-01-2024 End: 07-30-7296Itwstmxr Result EncounterAries Chavez DO Work Phone: [facility] External Department UnsolicitedStart: 10-01-2024 End: 38-50-4565Ddcpbqf encounter procedurePoojaerna Danieltony STONE DRILLER HELPER Work Phone: [facility] Work Phone: Start: 08-05-2024 End: 11-44-1155FzqnopXsfcl Rosa CMAProMedica Physicians Internal Medicine - Family MedicineComment on above:Chronic obstructive pulmonary disease with acute exacerbation ([facility]-HCC)Start: 07-19-2024 End: 35-52-8242OqssxwUuqnq Rosa CMAProMedica Physicians Internal Medicine - Family MedicineStart: 96-01-3844Wbnwxjtmzl RecurringFAMA Rogers Wilson Work Phone: [facility] [facility] Work Phone: Start: 06-24-2024 End: 34-77-1897mkcgmuavlvDMF Rogers Wilson Work Phone: [facility] Work Phone: Start: 06-24-2024 End: 82-18-4309Vcrawwy encounter procedureFAMA Rogers Wilson Work Phone: [facility] Work Phone: Start: 06-18-2024 End: 98-76-4560Rixfiugw Result EncounterAries Chavez DO Work Phone: [facility] External Department UnsolicitedStart: 06-18-2024 End: 14-98-8681Rytczjtt Result EncounterAries Chavez DO Work Phone: [facility] External Department UnsolicitedStart: 06-04-2024 End: 87-30-0907jvgamulfugOTQ Rogers Wilson Work Phone: [facility] Work Phone: Start: 06-04-2024 End: 43-57-5209Rxkirpb encounter procedureDEIDRE Rogers Wilson Work Phone: [facility] Work Phone: Start: 46-42-4443Ilufycwwls RecurringFAMA Rogers Wilson Work Phone: [facility] Work Phone: Start: 05-10-2024 End: 55-98-1303mvmobdradyIKE Mary R Kuns Work Phone: [facility] Work Phone: Start: 05-10-2024 End: 13-55-3915Mfusfqc encounter procedureDEIDRE Wilson Work Phone: [facility] Work Phone: Start: 41-42-5255Ywvielfmky RecurringDEIDRE Wilson Work Phone: [facility] Work Phone: Start: 03-29-2024 End: 24-92-6131slmsdtqegeVZA Mary R Kuns Work Phone: [facility] Work Phone: Start: 03-29-2024 End: 99-32-4347Ilmfejq encounter procedureFAMA Wilson Work Phone: [facility] Work Phone: Start: 03-21-2024 End: 25-98-4802EcnkcyLbpl Rose Kuns STEVEDORING SUPERINTENDENT-STONE DRILLER HELPER Work Phone: [facility] Medicine - Family MedicineComment on above:AnxietyStart: 01-30-2024 End: 61-50-3392Xmlybp outpatient visit 25 minutesRogers Wilson STEVEDORING SUPERINTENDENT-STONE DRILLER HELPER Work Phone: [facility] Medicine - Family MedicineComment on above:Chronic obstructive pulmonary disease with acute exacerbation (CMS-HCC) (Primary Dx); Chronic hypoxic respiratory failure (CMS-HCC); Renal cell carcinoma of right kidney (CMS-HCC)Start: 32-99-2979Hwjuepivkx RecurringDEIDRE Wilson Work Phone: [facility] Work Phone: Start: 12-29-2023 End: 26-22-5249zbxkryuvrwCIB Mary R Kuns Work Phone: [facility] Work Phone: Start: 12-29-2023 End: 88-61-7328Fyejewd encounter procedureDEIDRE Wilson Work Phone: [facility] Work Phone: Start: 12-26-2023 End: 04-44-1223Hwrctq outpatient visit 15 minutesRogers Wilson STEVEDORING SUPERINTENDENT-STONE DRILLER HELPER Work Phone: [facility] Medicine - Family MedicineComment on above:Acute recurrent frontal sinusitis (Primary Dx); Nausea and vomiting, unspecified vomiting typeStart: 24-98-0614Fzllksqhjr RecurringDEIDRE Wilson Work Phone: [facility] Work Phone: Start: 11-17-2023 End: 22-47-1750nocaytudjwDTY Mary R Kuns Work Phone: [facility] Work Phone: Start: 11-17-2023 End: 15-87-9676Wrnoucz encounter procedureDEIDRE Wilson Work Phone: [facility] Work Phone: Start: 41-89-2493Bvlrqbtt Result EncounterAries Chavez DO Work Phone: [facility] External Department UnsolicitedStart: 11-15-2023 External Result EncounterTimleonarda Chavez DO Work Phone: [facility] External Department UnsolicitedStart: 10-26-2023 Registered RecurringDEIDRE Wilson Work Phone: [facility] Work Phone: Start: 10-26-2023 End: 29-77-2914wgykgwqheiSQE Mary R Kuns Work Phone: [facility] Work Phone: Start: 10-26-2023 End: 26-33-1524Pkjrnst encounter procedureFNP Rogers Wilson Work Phone: [facility] Work Phone: Start: 98-40-7700Ijt-patient / Non-visitFNP Rogers Wilson Work Phone: [facility] Work Phone: Start: 60-62-8567Asx-patient / Non-visitFNP Rogers Wilson Work Phone: [facility] Work Phone: Start: 10-05-2023 End: 87-63-0724qcqtxufccbCIJ Rogers Wilson Work Phone: [facility] Work Phone: Start: 10-05-2023 End: 54-12-4405Oqpwllfwaa RecurringFNP Rogers Wilson Work Phone: [facility] Work Phone: Start: 10-05-2023 End: 92-86-9324vficlwttskTDU Rogers Wilson Work Phone: [facility] Work Phone: Start: 10-05-2023 End: 34-33-3280Vqungohxnu RecurringFNP Rogers Wilson Work Phone: [facility] Work Phone: Start: 09-12-2023 End: 18-69-9036jbdvleymneWNF Rogers Wilson Work Phone: [facility] Work Phone: Start: 09-12-2023 End: 17-04-4032Tauofindah RecurringFNP Rogers Wilson Work Phone: [facility] Work Phone: Start: 08-28-2023 End: 92-34-8882tnvqawsveyUIH Rogers Wilson Work Phone: [facility] Work Phone: Start: 08-28-2023 End: 58-50-2338Hqgvebhqmo RecurringFNP Rogers Wilson Work Phone: [facility]-Cancer Center Work Phone: Start: 08-22-2023 End: 99-56-8036Ajtcfglpx to same day surgery centerFAMA Wilson Work Phone: [facility]-Ultrasound Main [place] Work Phone: Start: 08-22-2023 End: 68-38-4114pqgvpsnqndDWJ Rogers Wilson Work Phone: [facility] Work Phone: Start: 75-87-0073Bzugvnxzpt RecurringFNP Rogers Wilson Work Phone: [facility]-Cancer Center Work Phone: Start: 07-31-2023 End: 99-70-7969jyibdzlcgaWRO Rogers Wilson Work Phone: [facility] Work Phone: Start: 07-31-2023 End: 85-86-9786Bknfufjacl RecurringFNP Rogers Wilson Work Phone: [facility] Work Phone: Start: 06-23-2023 End: 77-70-0535cxrzfvgpsfFLO Rogers Wilson Work Phone: [facility] Work Phone: Start: 06-23-2023 End: 47-54-3083Ccofdgzwrw RecurringFNP Rogers Wilson Work Phone: [facility] Work Phone: Start: 13-15-9594agaehzlhuvUngcc MGabe LueFacility:EU SanduskyStart: 02-28-2023 End: 93-55-6822xzqcdhjlirLN DOCTOR MISCFacility:T8Uvjkh: 98-11-4028qxmkukpwqd Chantal NicoleGabe LueFacility:EU SanduskyStart: 02-07-2023 End: 39-17-4902uarmrobpluZM DOCTOR MISCFacility:Q4Cwsra: 01-24-2023 End: 27-34-1056Biffqpcvvm and management of inpatientDR FREDDY BARRAZA Facility: Procedures DateProcedureProcedure DetailPerforming ClinicianStart: 39-67-4558Paezi depression screening assessmentValesaira Baron APRN-FARM ASSISTANT Work Phone: Start: 53-47-7469Cdrcwu-up visitFollow-upVALERIMalou Guzman JOSEPIETROStart: 95-85-5628Xegiy depression screening assessmentValeiamalou Baron STEVEDORING SUPERINTENDENT-FARM ASSISTANT Work Phone: Start: 40-64-0255Xujrtjfy blood count with white cell differential, automatedAries Chavez DO Work Phone: Start: 96-03-0639GZMRAXOULXSGLZZJZNU HORMONE PLTimleonarda Chavez DO Work Phone: Start: 60-38-7497Ydcndxmf blood count with white cell differential, automatedAries Chavez DO Work Phone: Start: 67-90-9343QGOWG Antigen (POC)STONE DRILLER HELPER Rogers Wilson Work Phone: Start: 17-49-0664Fkzlyhkm tomography of abdomen and pelvis with contrastFAMA Wilson Work Phone: Start: 60-11-0846RK of thorax with contrastFNP Rogers Wilson Work Phone: Start: 05-16-6344Avmon depression screening assessment Rogers Wilson APRN-STONE DRILLER HELPER Work Phone: Start: 45-34-3866Nrlky depression screening assessment Rogers Wilson APRN-STONE DRILLER HELPER Work Phone: Start: 80-41-0844Utfuikwz blood count with white cell differential, automatedAries Chavez DO Work Phone: Start: 39-65-1961Fgdway scan of lower limb veinsFNP Rogers Wilson Work Phone: Start: 05-40-0084Udjsodrg identified in Urine by Dea AGUIRREP Work Phone: Start: 70-18-9419Tphlo cultureFAMA Wilson Work Phone: Start: 48-63-7115Pxpjumrmjn guidance for needle biopsy STONE DRILLER HELPER Rogers Wilson Work Phone: Start: 58-77-0963Qwjwvckt identified in Urine by Dea AGUIRREP Work Phone: Start: 95-93-8799Tdzdb cultureFAMA Wilson Work Phone: Start: 16-18-1041Fygydcscw of Infusion Device into Right Femoral Vein, Percutaneous ApproachDR FREDDY MCMILLANtart: 01-25-2023 Insertion of Endotracheal Airway into Trachea, Via Natural or Artificial Opening DR FREDDY BARRAZA Plan of Treatment DateCare ActivityDetailAuthorStart: 75-65-7645Vltcfnfakc ScreeningDepression ScreeningProFirelands [facility] SystemStart: 49-43-5628Lbah Risk ScreeningFall Risk ScreeningProFirelands Regional [facility] SystemStart: 26-02-1636Iyspvgd ScreeningTobacco ScreeningProFirelands Regional [facility] SystemStart: 56-45-3008Baudk BMI Follow Up PlanAdult BMI Follow Up PlanProFirelands Regional Medical [facility] SystemStart: 17-19-2485Qhuxh BMI Screening Adult BMI ScreeningProFirelands Regional Medical [facility] SystemStart: 98-55-3960Wbgvixmgbt Screening Depression ScreeningProFirelands Regional Medical [facility] SystemStart: 75-85-8817Fsrmgsr Screening Tobacco ScreeningProSt. Vincent'[facility] SystemStart: 48-85-5872Llldrghre vaccination Influenza VaccineProSt. Vincent'S Blount Health SystemStart: 92-92-4851Gixqj BMI Screening Adult BMI ScreeningProFirelands Regional Medical [facility] SystemStart: 23-23-2402Qzjxixmnbk Screening Depression ScreeningProFirelands Regional Medical [facility] SystemStart: 19-65-2225Cafj Risk Screening Fall Risk ScreeningProFirelands Regional [facility] SystemStart: 15-92-9012Qoofxhp Screening Tobacco ScreeningProFirelands Regional [facility] SystemStart: 20-90-6998Pjzxf BMI Screening Adult BMI ScreeningProFirelands Regional [facility] SystemStart: 17-82-9573Ieuzduhxwa Screening Depression ScreeningProFirelands Regional Medical [facility] SystemStart: 42-45-6492Wkxa Risk Screening Fall Risk ScreeningOhioHealth [facility] SystemStart: 62-41-9490Mdjbggm Screening Tobacco ScreeningOhioHealth Marion General Hospital SystemStart: 81-21-7350PvtdkoikqUniversity [facility] CenterStart: 48-72-5986JbguomzvwUniversity Hospitals Tri[facility] Center CenterStart: 22-62-7805HtlwhcrviUniversity Hospitals [facility] CenterStart: 94-49-3997JacfrnqelUniversity Hospitals [facility] CenterStart: 52-63-7343VsbbhctptUniversity Hospitals [facility] CenterStart: 90-05-6128RyfifbtkeUniversity Hospitals [facility] CenterStart: 71-95-6013NumnskhxaUniversity Hospitals [facility] CenterStart: 05-41-1049IfcuewpjnUniversity Hospitals [facility] CenterStart: 09-21-2024Medicare Annual Wellness VisitMedicare Annual Wellness VisitProFirelands Regional [facility] SystemStart: 26-60-0846GxzcsejpkUniversity Hospitals Tri[facility] CenterStart: 06-02-2024 Influenza vaccinationInfluenza VaccineOhioHealth [facility] General Hospital SystemStart: 05-10-2024 [facility] CenterStart: 35-00-9596TaxhszxefUniversity Hospitals [facility] CenterStart: 84-67-2266IlbdoxpveUniversity Hospitals Tripoint [facility] Center CenterStart: 03-06-2024 [facility] CenterStart: 01-30-2024 End: 12-75-7018PZ Chest PA and LateralX-ray chest 2 views Imaging Routine Chronic obstructive pulmonary disease with acute exacerbation (CMS-HCC) Expected: 01/30/2024, Expires: 01/29/2025[facility] Work Phone: Comment on above:Expected: 01/30/2024, Expires: 01/29/2025Start: 04-49-8576ZsolysuedUniversity Hospitals Tripoint Medical Center CenterStart: 12-29-2023 [facility] CenterStart: 00-17-0921Liknipgxeryoab (EPO) [Units/volume] in Serum or PlasmaUniversity Hospitals Tripoint Medical Center CenterStart: 99-31-5622EafffrejhUniversity Hospitals Tripoint Medical Center CenterStart: 15-05-5037XrbhyyzjxUniversity Hospitals Tripoint [facility] Center CenterStart: 21-08-2110OuzbdnyglUniversity Hospitals [facility] CenterStart: 92-61-2494UnsgzivksUniversity Hospitals [facility] CenterStart: 58-38-3096AmgpaxeykUniversity Hospitals [facility] CenterStart: 85-52-2258BzashjxucUniversity Hospitals Tripoint [facility] Center CenterStart: 66-59-1121IbvqljajfUniversity Hospitals Tri[facility] CenterStart: 73-44-0408YzkbatvkeUniversity Hospitals [facility] CenterStart: 38-90-7379Plzwpxhm to palliative care physicianUniversity Hospitals Tripoint Medical Center CenterStart: 32-23-3023Xmshjoqqeyxdlu of prophylactic treatment [facility] CenterStart: 70-68-4476Ictkrvrs admissionUniversity Hospitals Tripoint Medical Center CenterStart: 54-94-4629Ofmvhazo to oncologistUniversity Hospitals Tripoint [facility] Center CenterStart: 60-43-7770RhifqhzwsUniversity Hospitals [facility] CenterStart: 09-98-5320Wqkqlrkejsebkksfbsi hormone measurementUniversity Hospitals [facility] Center CenterStart: 62-93-6000DdlgujqliUniversity Hospitals [facility] CenterStart: 09-14-2023 [facility] CenterStart: 31-07-7257EmdwokexyUniversity Hospitals [facility] CenterStart: 55-53-8545Trsqvxdclz guidance for needle biopsyUniversity Hospitals Tripoint Medical Center CenterStart: 99-74-3112XqpglxhpdUniversity Hospitals Tripoint [facility] CenterStart: 52-57-2472JsuqsppxaUniversity Hospitals [facility] CenterStart: 41-77-8083EmkzyiodfUniversity Hospitals Tripoint [facility] Center CenterStart: 49-77-6407Nkxlaheuh vaccinationInfluenza VaccineProFirelands Regional [facility] SystemStart: 30-46-7611Axsabubfgqmhmk of varicella zoster vaccineZoster (Shingles) Vaccine (1 of 2)[facility] SystemStart: 04-14-2200QLxV,Tdap and Td Vaccines (1 - Tdap)DTaP,Tdap and Td Vaccines (1 - Tdap)[facility] SystemStart: 96-75-0437Mjvid BMI Follow Up PlanAdult BMI Follow Up PlanTwin City HospitalAdrenocorticotropic hormone measurementLakehealth Tripoint Medical CenterAdrenocorticotropic hormone measurementLakehealth Tripoint Medical Center Adrenocorticotropic hormone measurementLakehealth Tripoint Medical Center Adrenocorticotropic hormone measurementLakehealth Tripoint Medical Center Adrenocorticotropic hormone measurementLakehealth Tripoint Medical Center Adrenocorticotropic hormone measurementLakehealth Tripoint Medical CenterBacteria identified in Stool by CultureLakehealth Tripoint Medical CenterBacterial cytolethal distending toxin cdt gene [Presence] in Unspecified specimen by BJORN with probedetectionLakehealth Tripoint Medical CenterBilirubin measurement, urine [facility] CenterCampylobacter coli+jejuni+upsaliensis DNA [Presence] in Stool by BJORN with non-probe detectionLakehealth Tripoint Medical CenterColor of UrineLakehealth Tripoint Medical CenterComprehensive metabolic 1999 panel - Serum or [facility]Comprehensive metabolic 1999 panel - Serum or [facility] Comprehensive metabolic 1999 panel - Serum or [facility] DaytonComprehensive metabolic 1999 panel - Serum or [facility] DaytonComprehensive metabolic 1999 panel - Serum or PlasmaComprehensive metabolic panel Lab STAT 11/15/2023 9:16 AM [employer] Work Phone: Comprehensive metabolic 1999 panel - Serum or Plasma [facility] CenterComprehensive metabolic 1999 panel - Serum or [facility] DaytonComprehensive metabolic 1999 panel - Serum or [facility] DaytonComprehensive metabolic 1999 panel - Serum or [facility] DaytonComprehensive metabolic 1999 panel - Serum or PlasmaComprehensive metabolic panel Lab Routine 06/18/2024 9:28 AM [employer] Work Phone: ComprehenKlutchve metabolic 1999 panel - Serum or Plasma Comprehensive metabolic panel Lab STAT 10/01/2024 8:10 AM [employer] Work Phone: Comprehensive metabolic 1999 panel - Serum or Plasma [facility] CenterComprehensive metabolic 1999 panel - Serum or PlasmaLakehealth Tripoint Medical CenterCortisolCortisol Lab STAT 11/15/2023 9:16 AM ESTNOMS HealthcareCT Abdomen and Pelvis W contrast [facility] CampusCT Abdomen and Pelvis W contrast [facility] CampusCT Abdomen and Pelvis W contrast [facility] CampusCT Abdomen and Pelvis W contrast [facility] CampusCT Abdomen and Pelvis W contrast [facility] CampusCT Abdomen and Pelvis W contrast [facility] CampusCT Chest W contrast [facility] CampusCT Chest W contrast [facility] CampusCT Chest W contrast [facility] CampusCT Chest W contrast IV [facility] CenterCT guided biopsyLakehealth Tripoint Medical CenterDetection of hemoglobinLakehealth Tripoint Medical CenterEKG 12 channel [facility] CenterErythropoietin (EPO) [Units/volume] in Serum or PlasmaLakehealth Tripoint Medical CenterEscherichia coli enteropathogenic eae gene [Presence] in Stool by BJORN with non-probeLakehealth Tripoint Medical CenterEscherichia coli enterotoxigenic ltA+st1a+st1b genes [Presence] in Stool by BJORN [facility] CenterEscherichia coli O157 DNA [Presence] in Stool by BJORN with non-probe detectionLakehealth Tripoint Medical CenterEscherichia coli Stx1 and Stx2 toxin stx1+stx2 genes [Presence] in Stool by BJORN with non-probe detectionLakehealth Tripoint Medical CenterGlucose [Mass/volume] in Urine by Test stripLakehealth Tripoint Medical CenterHepatic function panelLakehealth Tripoint Medical CenterInfectious agent genotype identificationLakehealth Tripoint Medical CenterMeasurement of ketones in urine using dipstickLakehealth Tripoint Medical CenterPatient EducationFormerly [facility] Kidney BiopsyUniversity Hospitals [facility] Ctr Work Phone: Patient referralUniversity Hospitals Tripoint Medical Center Ctr Work Phone: Plesiomonas shigelloides DNA [Presence] in Stool by BJORN with non-probe detectionLakehealth Tripoint Medical CenterProtein measurement, urineAdams County Regional Medical Centeralmonella enterica+bongori DNA [Presence] in Stool by BJORN with non-probe detectionAdams County Regional Medical Centerhigella species+EIEC invasion plasmid antigen H ipaH gene [Presence] in Stool by NAALakehealth Tripoint Medical CenterUrinalysis, specific gravity measurementLakehealth Tripoint Medical CenterUrine dipstick for nitrite [facility] CenterUrine dipstick for specific gravityLakehealth Tripoint Medical CenterUrine pH testLakehealth [facility] Center Urobilinogen concentration, test strip measurementLakehealth Tripoint Medical CenterUS Lower extremity vein - bilateralLakehealth Tripoint Medical CenterVibrio cholerae DNA [Presence] in Stool by BJORN with non-probe detectionLakehealth Tripoint Medical CenterVibrio cholerae+parahaemolyticus+vulnificus DNA [Presence] in Stool by BJORN with non-probe detectionHospital Sisters Health [facility] Immunizations Immunization DateImmunizationNotesCare WtmcrpowYqloraqk72-40-7026oitmgqcdb virus vaccine, unspecified formulationValerie Baron STEVEDORING SUPERINTENDENT-FARM ASSISTANT Work Phone: [facility] HospitalRswofe37-50-8572Iyplyjwqh Vaccine, Quadrivalent, AdjuvantedMary Kuns STEVEDORING SUPERINTENDENT-STONE DRILLER HELPER Work Phone: [facility] City HospitalEjycpc74-38-6601itmleijfn virus vaccine, unspecified formulationMary Kuns STEVEDORING SUPERINTENDENT-STONE DRILLER HELPER Work Phone: [facility] HospitalOlomomo Nut Company Aikmop33-20-7687TQWQB-20, mRNA, LNP- S, PF, 100mcg/0.5mL DoseMary Kuns STEVEDORING SUPERINTENDENT-STONE DRILLER HELPER Work Phone: [facility] Payers DatePayer CategoryPayerPolicy [id number] Health InsuranceMUTUAL [facility] Member Subscriber Plan / Payer (Effective 2023- Present) Name: Perla Ibarra Relation to Subscriber: Self Name: Perla Ibarra Payer ID: Not on file Group ID: Not on file Type: Not on file [address] [place] [id number]. Managed Care Other (unspecified)[facility] [id number] 2019Medicare [id number] [id number] [id number] 1961 [id number] 2.0.1.069424.3.579.2. [id number] 2.0.1.860863.3.57[id number] 2.840.1.785501.3.57[id number] 2.0.1.552738.3.57[id number] 2..840.1.320913.3.57[id number] 2..840.1.950024.3.57[id number] 2.840.1.09[id number] 2.840.1.426867.3.579.2.531 Social History DateTypeDetailFacilityStart: 06-23-2023 End: 84-24-5678Jqvgmoj smoking status NHISEx-smoker (finding)[facility] Medical Centertart: 36-03-6853Rfw Assigned At BirthFeGeorgetown Behavioral HospitalTobacc smoking status NHISTobacco smoking consumption unknownMOUNTAIN VIEW [facility]OS[facility]ITAL HealthcareStart: 91-35-7456Mam Assigned At BirthNot on [facility] [place] Start: 06-22-2023 End: 96-96-9893Rxmnpa identityNot on [facility] SystemStart: 11-18-2020 End: 75-77-1021AwaLujaqo (finding)[facility] CenterHistory of tobacco useCurrent smokerOhioHealth Marion General Hospital SystemHistory of tobacco useCigarette SmokerOhioHealth Marion General Hospital SystemStart: 02-07-2023 End: 92-89-4955Ijjzpih use and exposureSmokeless tobacco non-userProFirelands [facility] SystemStart: 01-30-2024 End: 12-58-7146Prqtbwpss beverage intakeLifetime non-drinker (finding)[facility] Hospitaled[facility] SystemStart: 06-22-2023 End: 00-60-7547Cciwhld of Social functionProMedica Health SystemDo you belong to any clubs or organizations such as zoroastrian groups, unions, fraternal or athletic groups, or school groups?NoProMedica Health SystemAre you now , , , , never or living with a partner?MarriedProMedica Health SystemHow often to you have a drink containing alcohol?NeverProMedica Health SystemHow many standard drinks containing alcohol do you have on a typical day?Patient does not drinkProWefunder Health SystemHow hard is it for you to pay for the very basics like food, housing, medical care, and heatingNot very hardProMedica Health SystemDo you feel stress - tense, restless, nervous, or anxious, or unable to sleep at night because yourmind is troubled all the time - these days [OSQ]Only a littleProVaxxas System Goals DatePatient GoalDesired Activity/State Clinical Notes 2019 to 07-14-2025 Note Date & EdqiHgwhQiwjmquz22-53-0021 NoteSUBJECTIVE Reason for Visit: Perla Ibarra is a [...] cell carcinoma. Historically, she was transferred from [facility] to [facility] for evaluation of acute respiratory failure [...] which is her baseline. She endorses stable lower-extremity edema. She also reports recurrent epistaxis and [...] Cardiovascular Diagnostic Studies: JASWINDER ANDREA venous dopplers. (more content not included)...[facility]07-14-2025 NoteSUBJECTIVE Reason for Visit: Perla Ibarra is a [...] cell carcinoma. Historically, she was transferred from [facility] to [facility] for evaluation of acute respiratory failure [...] ovarian vein. No de (more content not included)...[facility]06-26-2025 History of Present illness Narrative* Toro Baron APRN-FARM ASSISTANT - 03/27/2025 1:20 PM EDT Images from the original note were not included. [address] [facility] [id number] SUBJECTIVE: Patient ID: Perla Ibarra is a 69 y.o. female. Chief Complaint Patient presents with ER f/u [facility] Patient went [facility] on 03/[facility]26 for complaints of left lower leg swelling, redness, and discomfort. She did have venous duplex which ruled out DVT. She was diagnosed with cellulitis. Was prescribed 7 day course of cephalexin, her last dose is today. Today, she feels her symptoms are approxima tely 50% better. She is still experiencing mild swelling, warmth, and erythema around her ankle andfoot. There is still mild discomfort. The following portions of the patient's history were reviewed and updated as appropriate: allergies, current medications, past family history, past medical history, past social history, past surgicalhistory and problem list. Past Surgical History: Procedure [...] and the following intervention(s) were applied: encouragement toexercise. Physical Exam Vitals and nursing note reviewed. [...] and swelling surrounding ankle and pedal region offoot Neurological: Mental Status: She is alert and oriented to person, place, and time. Deep Tendon Reflexes: Reflexes are normal and symmetric. Psychiatric: Mood and Affect: Mood normal. Behavior: Behavior normal. Thought Content: Thought content normal. Judgment: Judgment normal. ASSESSMENT/PLAN: Perla was seen today for er f/u [facility]. Diagnoses and all orders for this visit: [...] procedures Follow-up: Medicare wellness BURT Tilley 03/27/25 1348 documented in this encounterTwin City Hospital04-28-2025 Progress note [facility] [place] [address] [facility] Note Signed Patient: Perla Ibarra MR# : [id number] : 1955 Acct:[id number] Age/Sex: 69 / F Type: REG AMB Date of Service: 01/27/25 Copies to: DEIDRE Barrett~ Assessment & Plan A/P Patient Instructions: lasix 20mg prn. f/u in [address] c/a/p with contrast at [facility] prior. cbc, cmp, tsh, ft4, acth, am cortisol in 3 months and prior to f/u. CHEMO PLAN Treatment Plan Pembrolizumab 400mg Every 6 Weeks Clinical Indication Locoregional Recurrence Cycle Number Last Admin 7 of 12 Cycle Day Next Admin -43 of 42 No Active Chemotherapy History of Present Illness HPI ASSESSMENT/PLAN Right renal Cancer, 23r1e27 cm with extension into right renal vein and inferiorvena cava.. 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 Has seen Dr. Mathew in [place] for consideration of nephrectomy. Determined not a very good surgical candidate, she has very extensive disease and overall generally poor health. No definitive retroperitoneal lymphadenopathy. Extensive reticulonodular opacities at the lung base not well assessed possibly sequela of infectious or inflammatory process. Superimposed small pulmonary metastasis is not excluded. Will start palliative treatment and consider for debulking with this agent and reconsider ablative,surgical approaches down the line. Began pembrolizumab 200mg [...] 2022 and ultimately was life flighted to [facility] for a myocardial infarction and [...] of the right renal vein and IVC whichextends to the level of the inferior aspect [...] developing severe headaches, left lower quadrant pain, intractablenausea and vomiting and decided to stop medication 2 days ago. She presented to [facility] where she was hydrated and subsequently transferred [facility]. 10/26/2023: Perla is here for interval follow up/follow up to inpatient stay.She was hospitalized at [facility] from 10/[facility]/2023-10/25/2023 for headache, abdominal pain, hyponatremia, [...] doing okay but notes new onset bilateral lowerextremity edema (right >left). She apparently did not have any of this going on while in the hospital and she did not have any imaging of her leg in regards to ultrasound. She also notes some painin the right lower extremity and inability to bear weight. Of note, her tumor is involving the sameside of her body - with her renal [...] covid, persistent cough. reviewed ct scans from [facility] that her renal mass is now down to 3.9cm, dramatic continued improvement. 10/01/24 Will plan to have her restart 100 mcg as her thyroid levels have improved at this dose. 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 LAST pembro was 08/05/25 11/25/24 Presents today feeling crappy. She reports heartburn, blurry vision, and feeling depressed. She stopped prednisone on the . Reviewed TSH 5.95. Givenage this is within range. She continues withitchy skin. Recommended regular skin hydration. Less likely [...] stability of renal cell. reviewed imaging from [facility] from 10/26/24 n R complex renal mass 4.2 x 3.9 x 5.9 cm This is unchanged. No new metastatic disease. no adenopathy. 01/27/[address] c/a/p shows roughly stable ct imaging with peristent renal mass. cont on 2 l oxygen. some edema in legs. she was rogers wilson and now has toro baron. 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 fatigue is profound. Intake Vitals/Pain Assessment 01/27/25 [...] also states that her PCP has prescribed Tramadolfor her, but she has yet to take it.Patient also reports edema in bilateral lower extremities. [facility] Medical History Medical History Hyponatremia Chronic hypoxic respiratory failure 2 L Oxygen via NC at all times. 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 Myocardial infarct COPD (chronic obstructive pulmonary [...] Dictated By: Aries Chavez II, DO DD/ 1339 Signed By: 01/27/25 1420 [facility]03-17-2025 History of Present illness Narrative * Toro Baron APRN-FARM ASSISTANT - 12/16/2024 11:20 AM EDT Images from the original note were not included. [address] [place] [id number] SUBJECTIVE: Patient ID: Perla Ibarra is a 69 y.o. female. Chief Complaint Patient presents with Follow-up Is accommodated by significant other. She is previous patient of Rogers Wilson APRN She is monitored by oncology, cardiology, and pulmonology. She currently has right renal cell carcinoma.States was found while hospitalized after having a [place],December 2022. Monitored by Dr. Aries Chavez at [facility] [place] for renal carcinoma. She states he also [...] past medical history, past social history, past surgicalhistory and problem list. Past Surgical History: Procedure [...] and the following intervention(s) were applied: encouragement toexercise. Physical Exam Vitals and nursing note reviewed. [...] days. Renal cell carcinoma of right kidney ([facility]) Panlobular emphysema ([facility] [...] Unable to take NSAIDS per oncologist and citrix engineer. We discussed Tramadol today. She is willing [...] carcinoma She currently has right renal cell carcinoma. was found while hospitalized after having a [place],December 2022. Monitored by Dr. Aries Chavez at [facility] for renal carcinoma. She states he also monitors her hypothyroidism. Her chemotherapy, Keytruda, is on hold right now. Plan to restart in the near future. There was possible concern about drug causing rashes. 5. History of CHF No current exacerbation Is managed by Cardiology, [facility] Recent echocardiogram November 2024 -Mild cocentric left ventricular hypertrophy with normal systolic function Normal LVEF of 55% Normal diastolic function Normal right-sided pressures Her [place] history includes the following: transferred from [facility] to [facility] for evaluation ofacute respiratory failure in setting of acute decompensated heart failure requiring intubation and elevated troponin. She underwent coronary angiography on 01/26/2023 which revealed nonobstructive marcos nary artery disease. Right heart catheterization showed elevated [...] BURT Tilley 12/16/24 1433 documented in this encounterMarietta Memorial HospitalOfferboxx Ascension Providence [id number] NoteCardiology Clinic Note Subjective Perla Ibarra is a 69 y.o. year old female patient with nonischemic cardiomyopathy, heart failure reduced ejection fraction with EF 45%, coronary artery disease, tobacco use, probable COPD, and right renal mass concerning for renal cell carcinoma. She was transferred from [facility] to [facility] for evaluation of acute respiratory failure [...] Allergen Reactions Erythromycin Unknown Per report from [facility] Current Outpatient Medications: albuterol 90 [...] 01/25/2023 HDL 46 01/25/2023 (more content not included)...[facility]11-04-2024 Miscellaneous Notes* Telephone Encounter - Sonia Lee CMA - 08/05/2024 12:41 PM EST Can you make sure it has an ICD code with it so they can bill medicare part B [facility] Tele[facility] encounter Note* Telephone Encounter - Sonia Lee CMA - 08/05/2024 12:41 PM EST Can you make sure it has an ICD code with it so they can bill medicare part B [employer]04-30-2024 History of Present illness Narrative* Rogers Wilson, STEVEDORING SUPERINTENDENT-STONE DRILLER HELPER - 01/30/2024 8:40 AM EDT Subjective Patient ID: Perla Ibarra is [...] nursing note reviewed. Exam conducted with a perfect bind machine operator present (adon). Constitutional: Appearance: She is ill-appearing. HENT: Head: [...] Chronic obstructive pulmonary disease with acute exacerbation ([facility]) - X-ray chest 2 views; Future - albuterol (PROVENTIL,VENTOLIN) 2.5 mg /3 mL (0.083 %) nebulizer solution; Inhale 3 mL (2.5 mg total) by nebulization every 6 (six) hours as needed for wheezing. Chronic hypoxic respiratory failure ([facility]) Renal cell carcinoma of right kidney ([facility]) Other orders - amoxicillin-pot clavulanate (AUGMENTIN) 875-125 [...] KAVITA Watson 01/30/24 1210 documented in this encounterMarietta Memorial HospitalOlomomo [employer] Company [id number] Progress note Author Aries Chavez [facility] December 29, 2023 9:26amNote Date/TimeMarch 2023 8:50amB[facility] [place] [address] Cancer Center Note Signed Patient: Perla Ibarra MR# : [id number] : 1955 Acct:[id number] Age/Sex: 68 / F Type: REG AMB Date of Service: 12/29/23 Copies to: DEIDRE Barrett~ Assessment & Plan A/P (1) Clear cell renal cell carcinoma: Plan Right renal Cancer, 18k1f67 cm with extension into right renal vein and inferiorvena cava.. 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 Has seen Dr. Mathew in [place] for consideration of nephrectomy. Determined not a very good surgical candidate, she has very extensive disease and overall generally poor health. No definitive retroperitoneal lymphadenopathy. Extensive reticulonodular opacities at the lung base not well assessed possibly sequela of infectious or inflammatory process. Superimposed small pulmonary metastasis is not excluded. Will start palliative treatment and consider for debulking with this agent and reconsider ablative,surgical approaches down the line. Began pembrolizumab 200mg [...] start Synthroid 50mcg po daily at visit 3/29/24. Patient Instructions: f/u in [address] [...] patient of Rogers Wilson nurse practitioner in [place]. Also follows with Dr. Cervantes and Dr. Quach of urology. 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 She presented to [facility] where she was hydrated and subsequently transferred to [facility]. --She specifically denies any anginal chest pain, but does note some dyspnea that started a few days after starting the axitinib. She notes that she was shaking all over but did not fall to the ground or lose consciousness therefore it was not felt to be a seizure. 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 -- At [facility] she was noted to have white [...] to inpatient stay.She was hospitalized at [facility] from 10/19/2023-10/25/2023 for headache, abdominal pain, hyponatremia, renal failure - felt to be related to initiation of Axitinib therapy in combination with her Pembrolizumab. She was discharged home yesterday and is due for Cycle 3 Pembrolizumab today; she was seen and evaluatedlastby Dr. Chavez 2 days ago on 10/24/2023. There are no plans to re- initiateher oral Axitinib therapy due to untoward side [...] concerned about dry eyes blurred vision. Her strengthis much better and is able to manageadls [...] Reasons: 6 wk f/u with scans at [facility], Clear cell renal cell carcinoma Accompanied by: [...] a 6 week follow up with [facility] labs and outside imaging for review. Has treatment today. [facility] Medical History Medical History Hyponatremia Chronic hypoxic respiratory failure 2 L Oxygen via [place] at all times. 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 Myocardial infarct COPD (chronic obstructive pulmonary [...] by Aries Chavez II, DO> 12/29/23 0926 [facility] Work Phone: 1(857) 912-358103-26-2024 History of Present illness Narrative* Rogers Wilson, STEVEDORING SUPERINTENDENT-STONE DRILLER HELPER - 12/26/2023 3:00 PM EDT Subjective Patient [...] KAVITA Watson 12/26/23 1726 documented in this encounterKerbs Memorial HospitalSagebin12-12-2023 Progress note Author Rogers Moon [facility] September 12, 2023 4:38pmNote Date/TimeDece 2022 2:13pmB[facility] [place] [address] Hem/Onc Follow Up Note - OP Signed Patient: Perla Ibarra MR# : [id number] : 1955 Acct:[id number] Age/Sex: 68 / F Type: REG RCR Copies to: DEIDRE Barrett SELF,REFERRAL Aries Chavez II, DO~ Date of Service: 09/12/2023 Time of Service: 14:12 - Assessment & Plan (1) Renal mass Plan: 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 Right renal mass, 60g1t95 cm with extension into right renal vein and inferior vena cava.. Has seen Dr. Mathew in [place] for consideration of nephrectomy. Determined not a very good surgical candidate, she has very extensive disease and overall generally poor health. No definitive retroperitoneal lymphadenopathy. Extensive reticulonodular opacities at the lung base not well assessed possibly sequela of infectious or inflammatory process. Superimposed small pulmonary metastasis is not excluded. Will start palliative treatment and consider for debulking with this agent and reconsider ablative,surgical approaches down the line. Although we were [...] Lexapro, aspirin, atorvastatin, Entresto, spironolactone, metoprolol, Xanax asneeded. Primary patient of Rogers Ronnie nurse practitioner in [place]. Also follows with Dr. Cervantes and Dr. Quach of urology. She had a hospitalization in December 2022 and ultimately was life flighted to [facility] for a myocardial infarction and [...] for coordination of care (as documented) and bqaf-de-addt counseling of patient and/or family. 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 - Family History Family History: Family [...] 09/12/23] Dictated By: Rogers Moon APRN DD/ 11 Signed By: <Electronically signed by CHAD Moon> 09/12/23 1638 [facility] Work Phone: 1(544) 789-341812-05-2023 Progress note Author Aries Chavez [facility] September 05, 2023 11:33amNote Date/TimeNovember 2022 1:16pmBaylor Scott & [facility] at [address] [address] Hem/Onc Follow Up Note - OP Signed Patient: Perla Ibarra MR# : [id number] : 1955 Acct:[id number] Age/Sex: 68 / F Type: REG RCR Copies to: Rogers Danelle Wilson, STONE DRILLER HELPER SELF,REFERRAL ~ Date of Service: 08/28/2023 Time of Service: 13:15 - Assessment & Plan (1) Renal mass Plan: 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 Right renal mass, 15*9*12 cm with extension into right renal vein and inferior vena cava.. Has seen Dr. Mathew in [place] for consideration of nephrectomy. Determined not a very good surgical candidate, she has very extensive disease and overall generally poor health. No definitive retroperitoneal lymphadenopathy. Extensive reticulonodular opacities at the lung base not well assessed possibly sequela of infectious or inflammatory process. Superimposed small pulmonary metastasis is not excluded. Will start palliative treatment and consider for debulking with this agent and reconsider ablative,surgical approaches down the line. She is iron [...] Lexapro, aspirin, atorvastatin, Entresto, spironolactone, metoprolol, Xanax asneeded. Primary patient of Rogers Trujillo nurse practitioner in [place]. Also follows with Dr. Cervantes and Dr. Quach of urology. She had a hospitalization in December 2022 and ultimately was life flighted to [facility] for a myocardial infarction and [...] for coordination of care (as documented) and gocj-ip-vbnn counseling of patient and/or family. 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 - Family History Family History: Family [...] by Aries Chavez II, DO> 09/05/23 1133 [facility] Work Phone: 1(252) 821-806310-30-2023 Progress note Author Aries Chavez [facility] July 31, 2023 2:29pmNote Date/TimeOct2022 1:59pmB[facility] & [facility] [place] [address] Hem/Onc Follow Up Note - OP Signed Patient: Perla Ibarra MR# : [id number] : 1955 Acct:[id number] Age/Sex: 67 / F Type: REG RCR Copies to: DEIDRE Barrett SELF,REFERRAL ~ Date of Service: 07/31/2023 Time of Service: 13:59 - Assessment & Plan (1) Renal mass Plan: Right renal mass, 15*9*12 cm with extension into right renal vein and inferior vena cava.. Likely a neoplasm. Has seen Dr. Mathew in [place] for consideration of nephrectomy. No definitive retroperitoneal [...] thick clots. She is on an aspirin forcardiac history. Follow Up Instructions: renal mass biopsy. start here, if not salazar is reasonable, [place]. f/u after. check ua and culture. offer her bactrim DS one tab bid x 10 days. get images uploaded to our system from [employer]. iv iron soon. cbc, cmp, iron studies [...] Lexapro, aspirin, atorvastatin, Entresto, spironolactone, metoprolol, Xanax asneeded. Primary patient of Rogers Trujillo nurse practitioner in [place]. Also follows with Dr. Cervantes and Dr. Quach of urology. She had a hospitalization in December 2022 and ultimately was life flighted to [facility] for a myocardial infarction and [...] for coordination of care (as documented) and qjqm-[id number]-fmyn counseling of patient and/or family. 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 Mathew who is now with [facility]. No definitive retroperitoneal lymphadenopathy. Extensive reticulonodular opacities [...] MRI and ct images to here from [facility]. refer to [facility] at [facility]. f/u with me in a month (after imaging). get an CT a/p with contrast in a month at the [facility]. cbc, cmp, iron studies b12, foalte, epo, [...] Lexapro, aspirin, atorvastatin, Entresto, spironolactone, metoprolol, Xanax asneeded. Primary patient of Rogers Trujillo nurse practitioner in [place]. Also follows with Dr. Cervantes and Dr. Quach of urology. She had a hospitalization in December 2022 and ultimately was life flighted to [facility] for a myocardial infarction and [...] for coordination of care (as documented) and [id number]-[id number] counseling of patient and/or family. 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 - Family History Family History: Family [...] by Aries Chavez II DO> 07/11/23 1321 [facility] Work Phone: 1(214) 490-925704-26-2023 NotePROCEDURE: XR CHEST 1 V DATE: 01/25/2023 [...] Electronically authenticated by: ANTONY VELASQUEZ Date: 2023-01-25 15:11[facility]10-31-2019 Progress note Author Aries Chavez [facility] CenterNote Date/TimeApril 2024 2:20pmB[facility] [address] Cancer Center Note Signed Patient: Perla Ibarra MR# : [id number] : 1955 Acct:[id number] Age/Sex: 69 / F Type: REG AMB Date of Service: 01/27/25 Copies to: DEIDRE Barrett~ Assessment & Plan A/P Patient Instructions: lasix 20mg prn. f/u in [address] c/a/p with contrast at [facility] prior. cbc, cmp, tsh, ft4, acth, am cortisol in 3 months and prior to f/u. CHEMO PLAN Treatment Plan Pembrolizumab 400mg Every 6 Weeks Clinical Indication Locoregional Recurrence Cycle Number Last Admin 7 of 12 Cycle Day Next Admin -43 42 No Active Chemotherapy History of Present Illness HPI ASSESSMENT/PLAN Right renal Cancer, 02k0e85 cm with extension into right renal vein and inferiorvena cava.. 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 Has seen Dr. Mathew in [place] for consideration of nephrectomy. Determined not a very good surgical candidate, she has very extensive disease and overall generally poor health. No definitive retroperitoneal lymphadenopathy. Extensive reticulonodular opacities at the lung base not well assessed possibly sequela of infectious or inflammatory process. Superimposed small pulmonary metastasis is not excluded. Will start palliative treatment and consider for debulking with this agent and reconsider ablative,surgical approaches down the line. Began pembrolizumab 200mg [...] 2022 and ultimately was life flighted to [facility] for a myocardial infarction and [...] of the right renal vein and IVC whichextends to the level of the inferior aspect [...] developing severe headaches, left lower quadrant pain, intractablenausea and vomiting and decided to stop medication 2 days ago. She presented to [facility] where she was hydrated and subsequently transferred to [facility]. 10/26/2023: Perla is here for interval follow up/follow up to inpatient stay.She was hospitalized at [facility] from 10/19/2023-10/25/2023 for headache, abdominal pain, hyponatremia, [...] doing okay but notes new onset bilateral lowerextremity edema (right >left). She apparently did not have any of this going on while in the hospital and she did not have any imaging of her leg in regards to ultrasound. She also notes some painin the right lower extremity and inability to bear weight. Of note, her tumor is involving the sameside of her body - with her renal [...] covid, persistent cough. reviewed ct scans from [facility] that her renal mass is now down to 3.9cm, dramatic continued improvement. 10/01/24 Will plan to have her restart 100 mcg as her thyroid levels have improved at this dose. 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 LAST pembro was 08/05/25 11/25/24 Presents today feeling crappy. She reports heartburn, blurry vision, and feeling depressed. She stopped prednisone on the . Reviewed TSH 5.95. Givenage this is within range. She continues withitchy skin. Recommended regular skin hydration. Less likely [...] stability of renal cell. reviewed imaging from [facility] from 10/26/24 n R complex renal mass 4.2 x 3.9 x 5.9 cm This is unchanged. No new metastatic disease. no adenopathy. 01/27/[address] c/a/p shows roughly stable ct imaging with peristent renal mass. cont on 2 l oxygen. some edema in legs. she was rogers wilson and now has toro baron. 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 fatigue is profound. Intake Vitals/Pain Assessment 01/27/25 [...] also states that her PCP has prescribed Tramadolfor her, but she has yet to take it.Patient also reports edema in bilateral lower extremities. [facility] Medical History Medical History Hyponatremia Chronic hypoxic respiratory failure 2 L Oxygen via [place] at all times. 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 Myocardial infarct COPD (chronic obstructive pulmonary [...] Dictated By: Aries Chavez II, DO DD/ 1339 Signed By: <Electronically signed by Aries Chavez II, DO> 01/27/25 1420 [facility] Work Phone: Evaluation noteNo assessment information available [facility] Work Phone: evaluation note* Diagnosis Onset Date Resolution Status Renal mass acute [facility] Work Phone: Evaluation note* Diagnosis Onset Date Resolution Status Clear cell renal cell carcinoma acuteEncounter for antineoplastic chemotherapyacuteHyponatremiaacuteIron deficiency anemiaacute [facility] Work Phone: evaluation note* Diagnosis Onset Date Resolution Status Clear cell renal cell carcinoma acuteEncounter for antineoplastic chemotherapyacuteHyponatremiaacuteIron deficiency anemiaacuteAcute kidney injury due to nephrotoxicityacuteCancer related painacuteChronic hypoxic respiratory failureacuteClear cell renal cell carcinomaacuteConstipationacuteCOPD (chronic obstructive pulmonary disease)acute Counseling regarding advanced care planning and goals of careacuteElevated lactic acid levelacuteElevated transaminase measurementacuteElevated troponin acuteHigh risk medications (not anticoagulants) long-term useacuteHyponatremia acuteIntractable nausea and vomitingacuteIron deficiency anemiaacuteNonischemic cardiomyopathyacute [facility] Work Phone: Evaluation note* Diagnosis Onset Date Resolution Status Acute kidney injury due to nephrotoxicit y acuteCancer related painacuteChronic hypoxic respiratory failureacuteClear cell renal cell carcinomaacuteConstipationacuteCOPD (chronic obstructive pulmonary disease)acuteCounseling regarding advanced care planning and goals of careacute Elevated lactic acid levelacuteElevated transaminase measurementacuteElevated troponinacuteHigh risk medications (not anticoagulants) long-term useacute HyponatremiaacuteIntractable nausea and vomitingacuteIron deficiency anemiaacute Nonischemic cardiomyopathyacuteClear cell renal cell carcinomaacuteClear cell renal cell carcinomaacuteEncounter for antineoplastic chemotherapyacute HyponatremiaacuteIron deficiency anemiaacute [facility] Work Phone: Evaluation note* Diagnosis Onset Date Resolution Status Cancer related pain acuteChronic hypoxic respiratory failureacuteClear cell renal cell carcinoma acuteCOPD (chronic obstructive pulmonary disease)acuteElevated transaminase measurementacuteElevated troponinacuteHigh risk medications (not anticoagulants) long-term useacuteIron deficiency anemiaacuteNonischemic cardiomyopathyacute Acute kidney injury due to nephrotoxicityresolvedConstipationresolvedCounseling regarding advanced care planning and goals of careresolvedElevated lactic acid levelresolvedHyponatremiaresolvedIntractable nausea and vomitingresolvedClear cell renal cell carcinomaacuteClear cell renal cell carcinomaacuteClear cell renal cell carcinomaacuteEncounter for antineoplastic chemotherapyacuteIron deficiency anemiaacuteHyponatremiaresolved [facility] Work Phone: Evaluation note* Diagnosis Onset Date Resolution Status Cancer related pain acuteChronic hypoxic respiratory failureacuteClear cell renal cell carcinoma acuteCOPD (chronic obstructive pulmonary disease)acuteElevated transaminase measurementacuteElevated troponinacuteHigh risk medications (not anticoagulants) long-term useacuteIron deficiency anemiaacuteNonischemic cardiomyopathyacute Acute kidney injury due to nephrotoxicityresolvedConstipationresolvedCounseling regarding advanced care planning and goals of careresolvedElevated lactic acid levelresolvedHyponatremiaresolvedIntractable nausea and vomitingresolvedClear cell renal cell carcinomaacuteClear cell renal cell carcinomaacuteClear cell renal cell carcinomaacuteClear cell renal cell carcinomaacuteEncounter for antineoplastic chemotherapyacuteIron deficiency anemiaacuteHyponatremiaJ.W. Ruby [facility] Work Phone: Evaluation note* Diagnosis Onset Date Resolution Status Clear cell renal cell carcinoma acuteEncounter for antineoplastic chemotherapyacuteIron deficiency anemiaacute Hyponatremiaresolved [facility] Work Phone: Evaluation note* Diagnosis Onset Date Resolution Status Clear cell renal cell carcinoma acuteEncounter for antineoplastic chemotherapyacuteIron deficiency anemiaacute HyponatremiaresolvedContact with and (suspected) exposure to covid-19noneactive [facility] Work Phone: Evaluation note* Diagnosis Onset Date Resolution Status COVID-19 noneactiveContact with and (suspected) exposure to covid-19noneactiveClear cell renal cell carcinomaacuteEncounter for antineoplastic chemotherapyacuteIron deficiency anemiaacuteHyponatremiaresDetwiler Memorial Hospital Work Phone: Evaluation note* Diagnosis Onset Date Resolution Status Admit Date Clear cell renal cell carcinoma acuteJanuary 2024 12:56pmEncounter for antineoplastic chemotherapyacute Abigail 2024 12:56pmIron deficiency anemiaacuteJanuary 2024 12:56pm HyponatremiaresolvedJanuary 2024 12:56pmRenal massdeletedJanuary 2024 12:56pm [facility] Work Phone: Evaluation note* Diagnosis Chronic obstructive pulmonary disease with acute exacerbation (CMS-HCC)- Primary Chronic hypoxic respiratory failure (CMS-HCC) Renal cell carcinoma of right kidney (CMS-HCC) documented in this encounter [facility]* Diagnosis Anxiety Anxiety state, unspecified documented in this encounter [facility]* Diagnosis Acute recurrent frontal sinusitis- Primary Nausea and vomiting, unspecified vomiting type documented in this encounter [facility]* Diagnosis Chronic obstructive pulmonary disease with acute exacerbation ([facility]) [facility] Diagnosis Onset Date Resolution Status Admit Date Clear cell renal cell carcinoma acuteFebruary 2024 2:20pmEncounter for antineoplastic chemotherapyacute February 2024 2:20pmIron deficiency anemiaacuteFebruary 2024 2:20pm HyponatremiaresolvedFebruary 2024 2:20pmRenal massdeletedFebruary 2024 2:20pm [facility] Work Phone: Evaluation note* Diagnosis Arthritis, multiple joint involvement- Primary Unspecified arthropathy, multiple sites Renal cell carcinoma of right kidney ([facility]) Panlobular emphysema ([facility]) Other emphysema Benign hypertensive heart disease with heart failure ([facility]) Obesity, morbid ([facility]) Morbid obesity [facility] Diagnosis Onset Date Resolution Status Admit Date Clear cell renal cell carcinoma acuteApril 2024 2:03pmEncounter for antineoplastic chemotherapyacuteApril 2024 2:03pmIron deficiency anemiaacuteApril 2024 2:03pmHyponatremia resolvedApril 2024 2:03pmRenal massdeletedApril 2024 2:03pm [facility] Work Phone: Evaluation note* Diagnosis Left leg cellulitis- Primary documented in this encounter [facility] Discharge instructions Additional Instructions Continue home oxygen as directed.[facility] Work Phone: InstructionsNot on filedocumented in this encounter [facility]Not [facility] filedocumented in this encounter [facility]ructionsNot on filedocumented in this encounter [facility]ructionsNot on filedocumented in this encounter [facility] SystemInstructionsNot on filedocumented in this encounter [facility]* Attachments The following attachments cannot be sent through Care Everywhere. * Cellulitis (Skin Infection)? Adult ED ([place]) [facility] SystemProgress note Author Aries Chavez [facility] July 31, 2023 2:29pmNote Date/TimeOct2022 1:59pmB[facility] at [address] [address] Hem/Onc Follow Up Note - OP Signed Patient: Perla Ibarra MR# : [id number] : 1955 Acct:[id number] Age/Sex: 67 / F Type: REG RCR Copies to: Rogers Wilson, DEIDRE SELF,REFERRAL ~ Date of Service: 07/31/2023 Time of Service: 13:59 - Assessment & Plan (1) Renal mass Plan: Right renal mass, 15*9*12 cm with extension into right renal vein and inferior vena cava.. Likely a neoplasm. Has seen Dr. Mathew in [place] for consideration of nephrectomy. No definitive retroperitoneal [...] thick clots. She is on an aspirin forcardiac history. Follow Up Instructions: renal mass biopsy. start here, if not sal[place] is reasonable, [place]. f/u after. check ua and culture. offer her bactrim DS one tab bid x 10 days. get images uploaded to our system from [employer]. iv iron soon. cbc, cmp, iron studies [...] Lexapro, aspirin, atorvastatin, Entresto, spironolactone, metoprolol, Xanax asneeded. Primary patient of Rogers Trujillo nurse practitioner in [place]. Also follows with Dr. Cervantes and Dr. Quach of urology. She had a hospitalization in December 2022 and ultimately was life flighted to [facility] for a myocardial infarction and [...] for coordination of care (as documented) and woif-[id number]-aixn counseling of patient and/or family. 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 - Family History Family History: Family [...] Confirmed 07/31/23] Dictated By: Aries Chavez II, DD/ [id number] Signed By: <Electronically signed by Aries Chavez II, DO> 07/31/23 1429 [facility] Work Phone: Progress note Author Vannessa Perales [facility] October 05, 2023 2:09pmNote Date/TimeJan2023 1:55pmB[facility] [place] [address] Hem/Onc Follow Up Note - OP Signed Patient: Perla Ibarra MR# : [id number] : 1955 Acct:[id number] Age/Sex: 68 / F Type: REG RCR [...] Lexapro, aspirin, atorvastatin, Entresto, spironolactone, metoprolol, Xanax asneeded. Primary patient of Rogers Wilson nurse practitioner in [place]. Also follows with Dr. Cervantes and Dr. Quach of urology. She had a hospitalization in December 2022 and ultimately was life flighted to [facility] for a myocardial infarction and [...] review of systems is negative. 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 - Family History Family History: Family [...] 9.5, BUN 17, Creatinine 0.75, Est GFR (CKD-EPI) > 60.0, Glucose 101 H, Calcium 8.9, Total Bilirubin 0.3, AST 22, ALT 67 H, Alkaline Phosphatase 113 H, Total Protein 7.9, Albumin3.4 L, Globulin4.5, Albumin/Globulin Ratio 0.8 10/04/23 14:53: Corrected WBC 5.8, Uncorrected WBC Count 5.8, RBC 3.32 L, Hgb 8.4 L, Hct 26.2 L, MCV 79.1 L, MCH 25.3, MCHC 32.0, RDW 18.4 H, Plt Count 404, MPV 6.8, Neut % (Auto) 61.7, Lymph % (Auto) 21.7, Hubbard % (Auto) 11.5, Eos % (Auto) 2.8, Baso % (Auto) 2.3, Nucleat RBC Rel Count 0.1, Neut # (Auto) 3.6, Lymph # (Auto) 1.2, Hubbard # (Auto) 0.7, Eos # (Auto) 0.2, Baso # (Auto) 0.1 10/04/23 14:53: ACTH 25.4 10/04/23 14:53: Free T4 1.00, TSH 3rd Generation 1.03, Total Cortisol 12.2 Assessment and Plan (1) 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 Right renal mass, 67h5f17 cm with extension into right renal vein and inferior vena cava.. Has seen Dr. Mathew in [place] for consideration of nephrectomy. Determined not a very good surgical candidate, she has very extensive disease and overall generally poor health. No definitive retroperitoneal lymphadenopathy. Extensive reticulonodular opacities at the lung base not well assessed possibly sequela of infectious or inflammatory process. Superimposed small pulmonary metastasis is not excluded. Will start palliative treatment and consider for debulking with this agent and reconsider ablative,surgical approaches down the line. -- Although we [...] for coordination of care (as documented) and gguc-ou-enup counseling of patient and/or family. Dictated By: Vannessa Perales APRN DD/ 1354 Signed By: <Electronically signed by CHAD Perales> 10/05/23 1406 [facility] Work Phone: Progress note Author Aries Chavez [facility] March 29, 2024 10:13amNote Date/TimeJune 2023 9:43[facility] [place] [address] Cancer Center Note Signed Patient: Perla Ibarra MR# : [id number] : 1955 Acct:[id number] Age/Sex: 68 / F Type: REG AMB [...] Present Illness HPI Assessment/Plan. Right renal Cancer, 36g8d11 cm with extension into right renal vein and inferiorvena cava.. 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 Has seen Dr. Mathew in [place] for consideration of nephrectomy. Determined not a very good surgical candidate, she has very extensive disease and overall generally poor health. No definitive retroperitoneal lymphadenopathy. Extensive reticulonodular opacities at the lung base not well assessed possibly sequela of infectious or inflammatory process. Superimposed small pulmonary metastasis is not excluded. Will start palliative treatment and consider for debulking with this agent and reconsider ablative,surgical approaches down the line. 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 Also follows with Dr. Cervantes and Dr. Quach of urology. 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 She presented to [facility] where she was hydrated and subsequently transferred to [facility]. --She specifically denies any anginal chest pain, but does note some dyspnea that started a few days after starting the axitinib. She notes that she was shaking all over but did not fall to the ground or lose consciousness therefore it was not felt to be a seizure. 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 -- At [facility] she was noted to have white [...] to inpatient stay.She was hospitalized at [facility] from 10/19/2023-10/25/2023 for headache, abdominal pain, hyponatremia, [...] doing okay but notes new onset bilateral lowerextremity edema (right >left). She apparently did not have any of this going on while in the hospital and she did not have any imaging of her leg in regards to ultrasound. She also notes some painin the right lower extremity and inability to bear weight. Of note, her tumor is involving the sameside of her body - with her renal [...] concerned about dry eyes blurred vision. Her strengthis much better and is able to manageadls [...] labs and imaging for review. [facility] Medical History Medical History Hyponatremia Chronic hypoxic respiratory failure 2 L Oxygen via NC at all times. 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 Myocardial infarct COPD (chronic obstructive pulmonary [...] gm/dL (3.5-5.7) 03/26/24 10:13 Dictated By: Aries Cahvez II, DO DD/ 0942 Signed By: <Electronically signed by Aries Chavez II, DO> 03/29/24 1013 [facility] Work Phone: Summary Purpose Family History No Family History Records Found Relationship Condition Age at Onset Recorded Date/T jeffrey Not Specified Lymphoma Unknown Not SpecifiedTuberculosisUnknownMultiple sclerosisUnknown Relationship Condition Age at Onset Recorded Date/T jeffrey Not Specified Tuberculosis Unknown Multiple sclerosisUnknownbrotherLymphomaUnknownNot SpecifiedNeoplasm of brain Unknown Relationship Condition Age at Onset Recorded Date/T jeffrey mother Tuberculosis Unknown Multiple sclerosisUnknownbrotherLymphomaUnknownmaternal grandfatherNeoplasm of brainUnknown Advance Directives No Advanced Directives Records Found Advance Directive Response Recorded Date/ Time Advance Directives No June 12:43pm Advance Directive Response Recorded Date/ Time Advance Directives No June 11:43am Chief Complaint and Reason for Visit Chief Complaint Renal Mass Chief Complaint Renal Mass N28.89 Reason for Visit Renal mass Chief Complaint Renal Mass N28.89 N25.89Reason for VisitRenal mass Chief Complaint N25.89 Renal Mass N28.89Reason for VisitRenal mass Chief Complaint N25.89 Renal Mass N28.89Reason for VisitClear cell renal cell carcinoma Encounter for antineoplastic chemotherapy Hyponatremia Iron deficiency anemia Chief Complaint N25.89 Renal Mass N28.89 Hyponatremia Amb DocumentationReason for VisitClear cell renal cell carcinoma Encounter for antineoplastic [...] Complaint N25.89 Hyponatremia Amb Documentation Renal Mass N28.89Reason for VisitAcute kidney injury due to nephrotoxicity Cancer related [...] Complaint N25.89 Hyponatremia Amb Documentation Renal Mass N28.89Reason for VisitCancer related pain Chronic hypoxic respiratory failure Clear [...] Documentation 6 wk f/u with scans at [facility] Renal Mass N28.89Reason for VisitCancer related pain Chronic hypoxic respiratory failure Clear [...] Complaint Review scans 06.13.2 4 Renal Mass N28.89Reason for VisitClear cell renal cell carcinoma Encounter for antineoplastic chemotherapy Iron deficiency anemia Hyponatremia Chief Complaint Review scans 06.13.2 4 15 wk f/u with scans Renal Mass N28.89Reason for VisitClear cell renal cell carcinoma Encounter for antineoplastic chemotherapy Iron deficiency anemia Hyponatremia Chief Complaint Review scans 06.13.2 4 15 wk f/u with scans Renal Mass N28.89 Positive covid testReason for VisitClear cell renal cell carcinoma Encounter for antineoplastic chemotherapy Iron deficiency anemia Hyponatremia Contact with and (suspected) exposure to covid-19 Chief Complaint Review scans 06.13.2 4 15 wk f/u with scans Positive covid test 6 Wk follow up Renal Mass N28.89Reason for VisitCOVID-19 Contact with and (suspected) exposure to covid-19 [...] October 28, 2024 1 2:56pm Renal mass Abigail 27th, 2025 1 2:56pm Chief Complaint Admit Date Follow [...] section and content) DATE CREATED AUTHOR 02/10/2023 [facility] DATE CREATED AUTHOR AUTHOR'S ORGANIZ ATION 03/13/2023 [facility] DATE CREATED AUTHOR AUTHOR'S ORGANIZ ATION 01/28/2025 [facility] DATE CREATED AUTHOR AUTHOR'S ORGANIZ ATION 03/28/2025 [facility] DATE CREATED AUTHOR AUTHOR'S ORGANIZ ATION 07/15/2025 [facility] Care Teams (unrecognized sec tion and content) Team Status: Active Member Role Status Dates DEIDRE Barrett Primary Care Provider Active Team Status: Inactive Member Role Status Dates DEIDRE Barrett Primary Care Provider Active S tart: March 29, 2024 End: March 29, 2024Aries Chavez II, DOAttending ProviderActiveStart: March 29, 2024 End: March 29, 2024 Team Status: Active Member Role Status Dates Aries J Adamowicz II, DO Attending Provider Active Start: March 29, 2024 TIMOTHY [facility] Care ProviderActiveStart: March 29, 2024 Referral SelfReferring ProviderActiveStart: March 29, 2024 Team Status: Active Member Role Status Dates Rogers Wilson [facility] Primary Care Provider Active S tart: October 19, 2023 Noe Jacobs , DOAdmit Provider, Attending Provider, Other Provider ActiveStart: October 19, 2023 Marisel Abdalla MDOther ProviderActiveStart: October 19, 2023 Aries Chavez II, DOOther ProviderActiveStart: October 19, 2023 Vannessa Perales , APRNOther ProviderActiveStart: October 19, 2023 Tosin Lima MDOther ProviderActiveStart: October 19, 2023 Ileana Joshi MDOther ProviderActiveStart: October 19, 2023 Zoie JansenOther ProviderActiveStart: October 19, 2023 Ariana Bell MDOther ProviderActiveStart: October 19, 2023 Liam Senior MDOther ProviderActiveStart: October 19, 2023 Rogers Moon , APRNOther ProviderActiveStart: October 19, 2023 [address] ProviderActiveStart: October 19, 2023 Lorrie ButlerOther ProviderActiveStart: October 19, 2023 Deann Marx MDOther ProviderActiveStart: October 19, 2023 Phi Adamson MDOther ProviderActiveStart: October 19, 2023 Freddy Wright DOAttending Provider, Other ProviderActiveStart: October 19, 2023 [address] APRNOther ProviderActiveStart: October 19, 2023 Aracelis Baldwin DOOther ProviderActiveStart: October 19, 2023 Mj Hills MDOther ProviderActiveStart: October 19, 2023 Team Status: Active Member Role Status Dates Rogers Wilson [facility] Primary Care Provider Active S tart: October 20, 2023 Marisel Abdalla MDAttending ProviderActiveStart: October 20, 2023 Team Status: Inactive Member Role Status Dates Rogers Wilson [facility] Primary Care Provider Active S tart: October 26, 2023 End: October 26, 2023Vannessa Aneesh Angella , APRNAttending ProviderActive Start: October 26, 2023 End: October 26, 2023 Team Status: Inactive Member Role Status Dates Rogers Wilson , STONE DRILLER HELPER Primary Care Provider Active S tart: November 17, 2023 End: November 17, 2023Aries Chavez II, DOAttending ProviderActiveStart: November 17, 2023 End: November 17, 2023 Team Status: Inactive Member Role Status Dates Rogers Wilson , STONE DRILLER HELPER Primary Care Provider Active S tart: December 29, 2023 End: December 29, 2023Aries Chavez II, DOAttending ProviderActiveStart: December 29, 2023 End: December 29, 2023 Team Status: Active Member Role Status Dates Aries Chavez II, DO Attending Provider Active Start: December 29, 2023 Rogers Wilson FNPPripoojay Care ProviderActiveStart: December 29, 2023 Referral SelfReferring ProviderActiveStart: December 29, 2023 Team Status: Inactive Member Role Status Dates Rogers Wilson , STONE DRILLER HELPER Primary Care Provider Active S tart: August 22, 2023 End: August 22, 2023Aries Chavez II, DOAttending ProviderActiveStart: August 22, 2023 End: August 22, 2023 Team Status: Active Member Role Status Dates Aries Chavez II, DO Attending Provider Active Start: October 05, 2023 Rogers Wilson FNPPripoojay Care ProviderActiveStart: October 05, 2023 Referral SelfReferring ProviderActiveStart: October 05, 2023 Team Status: Active Member Role Status Dates Aries Chavez II, DO Attending Provider Active TIMOTHY BarrettPPripoojay Care ProviderActiveReferral SelfReferring Provider Active Team Status: Inactive Member Role Status Dates Rogers Wilson STONE DRILLER HELPER Primary Care Provider Active Aries Chavez II, DOAttending ProviderActive Team Status: Active Member Role Status Dates Aries Chavez II, DO Attending Provider Active Start: October 26, 2023 Rogers Wilson FNPPripoojay Care ProviderActiveStart: October 26, 2023 Referral SelfReferring ProviderActiveStart: October 26, 2023 Team Status: Active Member Role Status Dates Aries Chavez II, DO Attending Provider Active Start: November 17, 2023 Rogers Wilson , FNPPripoojay Care ProviderActiveStart: November 17, 2023 Referral SelfReferring ProviderActiveStart: November 17, 2023 Team Status: Inactive Member Role Status Latrell Wilson , STONE DRILLER HELPER Primary Care Provider Active S tart: May 10, 2024 End: May 10, 2024Aries Chavez II, DOActiveStart: May 10, 2024 End: May 10, 2024Rogers Moon APRNAttending ProviderActive Start: May 10, 2024 End: May 10, 2024 Team Status: Active Member Role Status Dates Aries Chavez II, DO Attending Provider Active Start: May 10, 2024 Rogers Wilson FNPPrirogers Care ProviderActiveStart: May 10, 2024 Referral SelfReferring ProviderActiveStart: May 10, 2024 Team Status: Inactive Member Role Status Latrell Wilson STONE DRILLER HELPER Primary Care Provider Active S tart: June 04, 2024 End: June 04mbvalerie James APRNAtluciano ProviderActiveStart: June 04, 2024 End: June 04, 2024 Team Status: Inactive Member Role Status Latrell Wilson , STONE DRILLER HELPER Primary Care Provider Active S tart: June 24, 2024 End: June 24, 2024Aries Chavez II, Attending ProviderActive Start: June 24, 2024 End: June 24, 2024 Team Status: Active Member Role Status Latrell Chavez II, DO Attending Provider Active Start: June 24, 2024 Rogers Wilson FNPPripoojay Care ProviderActiveStart: June 24, 2024 Referral SelfReferring ProviderActiveStart: June 24, 2024 Team Status: Inactive Member Role Status Latrell Wilson , STONE DRILLER HELPER Primary Care Provider Active S tart: October 01, 2024 End: October 01, 2024Rogers Moon APRNAttenellie ProviderActive Start: October 01, 2024 End: October 01, 2024 Team Status: Inactive Member Role Status Dates Rogers Wilson STONE DRILLER HELPER Primary Care Provider Active S tart: October 28, 2024 End: October 28, 2024Aries Chavez II, DOAttending ProviderActiveStart: October 28, 2024 End: October 28, 2024 Team Status: Active Member Role Status Dates Aries Chavez II, DO Attending Provider Active Start: October 28, 2024 Rogers Wilson TIMOTHYrimary Care ProviderActiveStart: October 28, 2024 Referral SelfReferring ProviderActiveStart: October 28, 2024 Team MemberRelationshipSpecialtyStart DateEnd Date Rogers Wilson, STEVEDORING SUPERINTENDENT-STONE DRILLER HELPER [address] [facility] [place] [address] PCP - GeneralInternal Medicine02/09/23Team MemberRelationshipSpecialtyStart Date End Date Rogers Wilson, STEVEDORING SUPERINTENDENT-STONE DRILLER HELPER [address] [place] [place] [address] PCP - GeneralInternal Medicine02/09/23Team MemberRelationshipSpecialtyStart Date End Date Rogers Wilson, STEVEDORING SUPERINTENDENT-STONE DRILLER HELPER [address] [facility] [place] [address] PCP - GeneralInternal Medicine02/09/23Team MemberRelationshipSpecialtyStart Date End Date Toro Baron APRN-FARM ASSISTANT [address] [place] [address] PCP - Generalmily Medicine03/29/24Team MemberRelationshipSpecialtyStart DateEnd Date Toro Baron STEVEDORING SUPERINTENDENT-FARM ASSISTANT [address] [place] [address] [facility]03/29/24 Team Status: Inactive Member Role Status Dates Rogers Wilson DEIDRE Primary Care Provider Active S tart: November 25, 2024 End: November 25, 2024Aries Chavez II, DOAttending ProviderActiveStart: November 25, 2024 End: November 25, 2024 Team Status: Active Member Role Status Dates Aries Chavez II, DO Attending Provider Active Start: November 25, 2024 TIMOTHY BarrettPPripoojay Care ProviderActiveStart: November 25, 2024 Referral SelfReferring ProviderActiveStart: November 25, 2024 Team MemberRelationshipSpecialtyStart DateEnd Date Toro Baron APRN-FARM ASSISTANT [address] [place] [address] [facility]03/29/24 Team Status: Inactive Member Role Status Dates Rogers Wilson TIMOTHYP Primary Care Provider Active S tart: January 27, 2025 End: January 27, 2025Aries Chavez II, DOAttending ProviderActiveStart: January 27, 2025 End: January 27, 2025 Team Status: Active Member Role Status Dates Aries Thomas Chavez II, DO Attending Provider Active Start: January 27, 2025 LIBORIO Barrettripoojay Care ProviderActiveStart: January 27, 2025 Referral SelfReferring ProviderActiveStart: January 27, 2025 Team MemberRelationshipSpecialtyStart DateEnd Date Toro Baron STEVEDORING SUPERINTENDENT-FARM ASSISTANT [address] [place] [address] [facility]03/29/24 Goals (unrecognized section and content) Goals may [...] for Visit (unrecogniz ed section and content) ReasonCommentsCoughPain in rib cage.ReasonCommentsMed RefillReasonCommentsNasal CongestionNo covidReasonOnset DateCommentsMed [id number] Date CommentsMed [id number]-upReasonCommentsER f/u Brittney FOR RECORDS PERTAINING TO PATIENTS WHO ARE [...] BE BASED ON THE PRIMARY CLINICAL RECORDS. [employer] [facility]. provides no warranty or guarantee of the accuracy or completeness of information in this document.
[2025-07-23 06:59] LABS: Hematocrit 36.9 % (36.0-48.0); Hemoglobin 11.8 g/dL (12.0-16.0); Immature Granulocytes Abs Auto 0.02 10^3/uL (0.00-0.03); Immature Granulocytes Pct Auto 0.3 % (0.0-0.5); Lymphocytes Absolute Auto 1.4 10^3/uL (1.2-3.8); Mean Corpuscular HGB Conc 32.0 g/dL (29.9-35.2); Mean Corpuscular Hemoglobin 28.1 pg (26.7-34.0); Mean Corpuscular Volume 87.9 fL (81.0-99.0); Platelet Count 265 10^3/uL (150-450); Red Blood Count 4.20 10^6/uL (4.20-5.40); White Blood Count 7.7 10^3/uL (4.0-11.0)
[2025-07-23 07:14] LABS: Alanine Aminotransferase 15 U/L (14-59); Albumin Globulin Ratio 0.7; Albumin Level 3.4 g/dL (3.4-5.0); Alkaline Phosphatase 101 U/L (46-116); Anion Gap 10.8; Aspartate Amino Transferase 16 U/L (15-37); Blood Urea Nitrogen 13.0 mg/dL (7.0-18.0); Calcium 9.4 mg/dL (8.5-10.1); Carbon Dioxide 30.4 mmol/L (21.0-32.0); Chloride 98 mmol/L (98-107); Estimated GFR (African America >60 (>=60 mL/min/1.73m^2); Estimated GFR (Non-African Ame >60 (>=60 mL/min/1.73m^2); Globulin 4.8 g/dL; Glucose 115 mg/dL (74-106); Potassium 4.2 mmol/L (3.5-5.1); Sodium 135 mmol/L (136-145); Total Protein 8.2 g/dL (6.4-8.2)
[2025-07-23 07:18] LABS: Thyroid Stimulating Hormone 2.575 uIU/mL (0.358-3.740)
--- NOTE | 2025-07-23 08:17 | CT_ITS ---
The [address] [address] Patient Name: PRACHI WARD MRN: [id number] date: 1955 Sex: F Assigned Patient Location: LAB Current Patient Location: CARD Accession/Order Number: [id number] Exam Date: 07/23/2025 08:05 Report Date: 07/23/2025 09:34 At the request of: BARBARA MONTES DE OCA Procedure: CT abdomen pelvis w con CT CHEST, ABDOMEN AND PELVIS WITH INTRAVENOUS CONTRAST: CLINICAL HISTORY: Follow-up malignant neoplasm of right kidney COMPARISON: 01/23/2025 abdomen and 10/23/2024 chest TECHNIQUE: Spiral images were obtained through the chest, abdomen and pelvis following oral and intravenous administration of 100 mL of Omnipaque 300. Images were reviewed using both narrow and wide window settings. This CT exam was performed using one or more following dose reduction techniques: Automated exposure control, adjustment of the mA and/or kV according to patient size, or use of iterative reconstruction technique. The heart is top normal in size. No pericardial effusion is seen. No aortic aneurysm or dissection is identified. There is atherosclerotic plaque at the aortic arch. Similar pre and subcarinal lymph nodes are identified. No developing adenopathy is seen. There is a moderate size hiatal hernia. There is obstructive lung disease with airspace lucencies and subpleural blebs. Scarring and/or atelectasis is noted. No developing consolidation, pleural effusion or pneumothorax is seen. There is a similar small right lower lobe nodule on axial image 52. Dextroscoliotic curvature and endplate spurring are visualized at the spine. No intrapelvic masses are identified. No calcified gallstones are seen. The spleen and pancreas show no acute findings. There is similar thickening of the left adrenal limbs. The right kidney is atrophic. There is a heterogeneous hypodense masslike area at the inferior pole that has some associated calcifications. It measures approximately 5.1 x 3.9 cm x 3.4 in size. This has not significantly changed when measured in a comparable manner. Subtle hypodensity is again seen at the adjacent renal vein and involvement is not excluded. There are small bilateral renal cysts. No hydronephrosis is seen. There is atherosclerotic plaque at the aorta and iliac arteries. No enlarged lymph nodes or ascites are seen. Small bowel loops are normal caliber. There is mild colonic stool. Left-sided colonic diverticula are present. There is slight dextroscoliotic curvature and similar multilevel degenerative changes at the spine. Images through the pelvis show no appendiceal inflammation. There are normal caliber small bowel loops. There is minimal distal colonic stool. Additional colonic diverticula are seen, without associated active inflammation. The uterus is slightly dextroverted. No adnexal cysts are seen. The urinary bladder is not well distended for evaluation. There is no ascites. CT/CT chest w con IMPRESSION: OBSTRUCTIVE LUNG DISEASE WITH SCARRING AND ATELECTASIS. SIMILAR RIGHT LOWER LOBE PULMONARY NODULE. HIATAL HERNIA. RIGHT LOWER POLE RENAL MASS AND POSSIBLE RENAL VEIN INVOLVEMENT, NOT SIGNIFICANTLY CHANGED. RENAL CYSTS. DIVERTICULOSIS. NO ACUTE FINDINGS OR SUSPECTED PROGRESSION OF DISEASE. Impression dictated by: Tiffanie Nur M.D. 07/23/2025 9:34 AM Dictation Location: [place] [address] Electronically authenticated by: [id number] Y Date: 07/23/2025 09:34
--- NOTE | 2025-07-23 08:17 | CT_ITS ---
The [address] [address] Patient Name: PRACHI WARD MRN: [id number] date: 1955 Sex: F Assigned Patient Location: LAB Current Patient Location: CARD Accession/Order Number: [id number] Exam Date: 07/23/2025 08:05 Report Date: 07/23/2025 09:34 At the request of: BARBARA MONTES DE OCA Procedure: CT abdomen pelvis w con CT CHEST, ABDOMEN AND PELVIS WITH INTRAVENOUS CONTRAST: CLINICAL HISTORY: Follow-up malignant neoplasm of right kidney COMPARISON: 01/23/2025 abdomen and 10/23/2024 chest TECHNIQUE: Spiral images were obtained through the chest, abdomen and pelvis following oral and intravenous administration of 100 mL of Omnipaque 300. Images were reviewed using both narrow and wide window settings. This CT exam was performed using one or more following dose reduction techniques: Automated exposure control, adjustment of the mA and/or kV according to patient size, or use of iterative reconstruction technique. The heart is top normal in size. No pericardial effusion is seen. No aortic aneurysm or dissection is identified. There is atherosclerotic plaque at the aortic arch. Similar pre and subcarinal lymph nodes are identified. No developing adenopathy is seen. There is a moderate size hiatal hernia. There is obstructive lung disease with airspace lucencies and subpleural blebs. Scarring and/or atelectasis is noted. No developing consolidation, pleural effusion or pneumothorax is seen. There is a similar small right lower lobe nodule on axial image 52. Dextroscoliotic curvature and endplate spurring are visualized at the spine. No intrapelvic masses are identified. No calcified gallstones are seen. The spleen and pancreas show no acute findings. There is similar thickening of the left adrenal limbs. The right kidney is atrophic. There is a heterogeneous hypodense masslike area at the inferior pole that has some associated calcifications. It measures approximately 5.1 x 3.9 cm x 3.4 in size. This has not significantly changed when measured in a comparable manner. Subtle hypodensity is again seen at the adjacent renal vein and involvement is not excluded. There are small bilateral renal cysts. No hydronephrosis is seen. There is atherosclerotic plaque at the aorta and iliac arteries. No enlarged lymph nodes or ascites are seen. Small bowel loops are normal caliber. There is mild colonic stool. Left-sided colonic diverticula are present. There is slight dextroscoliotic curvature and similar multilevel degenerative changes at the spine. Images through the pelvis show no appendiceal inflammation. There are normal caliber small bowel loops. There is minimal distal colonic stool. Additional colonic diverticula are seen, without associated active inflammation. The uterus is slightly dextroverted. No adnexal cysts are seen. The urinary bladder is not well distended for evaluation. There is no ascites. CT/CT abdomen pelvis w con IMPRESSION: OBSTRUCTIVE LUNG DISEASE WITH SCARRING AND ATELECTASIS. SIMILAR RIGHT LOWER LOBE PULMONARY NODULE. HIATAL HERNIA. RIGHT LOWER POLE RENAL MASS AND POSSIBLE RENAL VEIN INVOLVEMENT, NOT SIGNIFICANTLY CHANGED. RENAL CYSTS. DIVERTICULOSIS. NO ACUTE FINDINGS OR SUSPECTED PROGRESSION OF DISEASE. Impression dictated by: Tiffanie Nur M.D. 07/23/2025 9:34 AM Dictation Location: [place] [address] Electronically authenticated by: [id number] Y Date: 07/23/2025 09:34
== END 2025-07-23 06:37 | disposition home or self-care (01) ==
LOC: LAB 06:37
PROVIDERS: PCP Nurse Practitioner; Visit Provider Internal Medicine
DX: Z01.89 Encounter for other specified special examinations (principal); C64.1 Malignant neoplasm of right kidney, except renal pelvis; Z79.899 Other long term (current) drug therapy; I50.20 Unspecified systolic (congestive) heart failure; J44.9 Chronic obstructive pulmonary disease, unspecified; K44.9 Diaphragmatic hernia without obstruction or gangrene; N28.89 Other specified disorders of kidney and ureter; K57.90 Diverticulosis of intestine, part unspecified, without perforation or abscess without bleeding
CPT/HCPCS: 36415; 71260; 74177; 80053; 82024; 84439; 84443; 85025; 93306; Q9967

== ENCOUNTER 2025-07-23 06:55 | Outpatient (OUT) | payer MEDICARE, OTHER, SELFPAY ==
--- OUTSIDE RECORDS SUMMARY | 2025-07-23 06:59 | XMS_ITS | CCD ---
Author Organization [facility] Care Team Providers Care Comparative Sociology Professor Name Role Phone [place] Attending Unavailable [...] Unavailable DO Aries Chavez II [facility], Referral Referring Provider Unavailable DO Aries Chavez II [facility], Referral Referring Provider Unavailable DO Aries Chavez II [facility] [phone] Self, Referral Referring Provider [facility] DO Aries Chavez II Attending Provider Self, Referral Referring Provider Unavailable Self, Referral Referring Provider Unavailable Self, Referral Referring Provider Unavailable Self, Referral Referring Provider Unavailable Self, Referral Referring Provider Unavailable Unavailable Primary Care Provider Unavailabl e Self, Referral Referring Provider Unavailable Ranjanowicz II, DO Aries Guzman Attending Provider [facility], [facility] Primary Care Provider Self, Referral Referring Provider Unavailable Adamowicz II, DO Aries Guzman Attending Provider [facility], [facility] Primary Care Provider [phone] Self, Referral Referring Provider Unavailable Adamowicz II, DO Aries Guzman Attending Provider [facility], [facility] Primary Care Provider Self, Referral Referring Provider Unavailable Ranjanowicz II, DO Aries Guzman Attending Provider [facility], [facility] Primary Care Provider Self, Referral Referring Provider Unavailable Lennyicz II, DO Aries Guzman Attending Provider [facility], [facility] Primary Care Provider Self, Referral Referring Provider Unavailable Aries Chavez DO Attending Provider [facility], [facility] Primary Care Provider Self, Referral Referring Provider Unavailable Daniel [facility] Primary Care Provider Toro Geller Primary Care Provid er Aries Chavez DO Attending Provider [facility] Primary Care Provider Self, Referral Referring Provider Unavailable Aries Chavez DO Attending Provider [phone] [facility] Primary Care Provider Self, Referral Referring Provider Unavailable Aries Chavez II Admitting Unavaila ble Aries Chavez II Attending Unavaila ble Self, Referral Referring Unavailable [facility] Primary Care Unavailable Toro Geller Primary Care Provid er TORO BARON Attending Unavailable TORO BARON Referring Unavailable TORO BARON Primary Care Unavailable TORO BARON Attending Unavailable TORO BARON Referring Unavailable TORO BARON Primary Care Unavailable RANJAN HONG Attending Unavailable RANJAN HONG Attending Unavailable AMMY BRIDGES Attending Unavailable Allergies Allergy ClassificationReported Allergen(s)Allergy TypeDate of OnsetReaction(s) Facility (8 sources)ErythromycinDrug Qntmmgd42-00-9096MsezpfasNfr [facility] Repository (9 sources)Erythromycin; Translations: [ERYTHROMYCIN]Drug Otesyys50-38-3455Clyqk (See Comments)[facility] (4 sources)pembrolizumab; Translations: [PEMBROLIZUMAB]Drug Xqgywkp42-62-6907 Other (See Comments)[facility] (1 source)ErythromycinDrug Kqhsjue42-58-9645SmkyfccmxHocking [facility] (1 source)Latex; Translations: [LATEX]Propensity to adverse reactions to drug (disorder)53-95-8579YwpiabetpxOhio[facility] Medications Current Medications MedicationDrug Class(es)DatesSig (Normalized)Sig (Original)albuterol 0.83 mg/ml inhalation solution (14 sources)beta2-Adrenergic AgonistStart: 01-30-2024 End: 34-31-1243nmkw 3 mL by inhalation every six hours as needed for wheezing albuterol (PROVENTIL,VENTOLIN) 2.5 mg /3 mL (0.083 %) nebulizer solution Indications: Chronic obstructive pulmonary disease with acute exacerbation ([facility]) Inhale 3 mL (2.5 mg total) by nebulization every 6 (six) hours as needed for wheezing. 75 mL 6 08/05/2024 ActiveStart: 04-28-2023 End: 49-05-0970bpak 2 puff(s) by mouth every four hoursVENTOLIN HFA 90 mcg/actuation inhaler inhale 2 puffs by mouth and INTO THE LUNGS every 4 hours if needed for shortness of breath 04/28/2023 03/27/2025 Discontinued (Therapy completed)albuterol 0.833 mg/ml / ipratropium bromide 0.167 mg/ml inhalation solution (2 sources)Anticholinergic, beta2-Adrenergic AgonistStart: 11-15-2024 ipratropium-albuteroL (DUONEB) 0.5 mg-3 mg(2.5 mg base)/3 mL nebulizer 11/15/2024 ActiveStart: 19-11-9920noia 3 mL by inhalation four times daily ipratropium-albuteroL (DUONEB) 0.5 mg-3 mg(2.5 mg base)/3 mL nebulizer INHALE 3ml via NEBULIZER FOUR TIMES DAILY 11/15/2024 Activeamoxicillin 875 mg / clavulanate 125 mg oral tablet (2 sources)Penicillin-class AntibacterialStart: 01-30-2024 End: 59-49-4410twut 1 tablet by mouth once in the morningamoxicillin-pot clavulanate (AUGMENTIN) 875-125 mg per tablet Take 1 tablet by mouth in the morningand 1 tablet before bedtime. Do all this for 7 days. 14 tablet 01/30/2024 02/06/2024 ActiveStart: 12-26-2023 End: 88-08-3004qled 1 tablet by mouth once in the morningamoxicillin-pot clavulanate (AUGMENTIN) 875-125 mg per tablet Indications: Acute recurrent frontal sinusitis Take 1 tablet by mouth in the morning and 1 tablet before bedtime. Do all this for 7 days.14 tablet 0 12/26/2023 01/02/2024 Activeaspirin 81 mg delayed release oral tablet (18 sources)Platelet Aggregation Inhibitor, Nonsteroidal Anti-inflammatory Drug Start: 42-13-9976fcdx 1 tablet by mouth once dailyAspirin 81 mg tablet,delayed release (DR/EC) Active 81 MG PO Daily October 20, 2023 1:00amatorvastatin 20 mg oral tablet (20 sources)HMG-CoA Reductase InhibitorStart: 80-71-0603dvzo 1 tablet by mouth once daily at bedtimeAtorvastatin 20 mg tablet Active 20 MG PO Daily at bedtime June 21, 2023 12:00amcephalexin 500 mg oral capsule (1 source)Cephalosporin AntibacterialStart: 03-27-2025 End: 42-63-0240aeis 1 capsule by mouth three times dailyCEPHalexin (KEFLEX) 500 mg capsule Indications: Left leg cellulitis Take 1 capsule (500 mg total) by mouth 3 (three) times a day for 7 days. 21 capsule 03/27/2025 04/03/2025 Active docusate sodium 100 mg oral capsule (7 sources)Start: 35-12-9661owio 1 capsule by mouth once dailyDocusate Sodium (Colace) 100 mg capsule Active 100 MG PO Daily March 29, 2024 12:00am escitalopram 10 mg oral tablet (20 sources)Serotonin Reuptake InhibitorStart: 67-42-6737sphhcvlfexld (LEXAPRO) 10 mg tablet Take 1 tablet (10 mg total) by mouth. 11/23/2024 ActiveStart: 04-19-2024 End: 03-41-2568qbwe 1 tablet by mouth once daily in the morningEscitalopram Oxalate 10 mg tablet Discontinued 0 .ROUTE .COMPLEX 90 April 23, 2024 3:34pm 2023 4:08pm take 1 tablet by mouth every morningStart: 03-29-2024 End: 98-73-3665uxab 1 tablet by mouth once daily in the morningEscitalopram Oxalate 10 mg tablet Discontinued 10 MG PO Every morning March 29, 2024 10:15am April 19, 2024 2:28pmStart: 06-21-2023 End: 00-55-8081fswx 1 tablet by mouth once daily in the morningEscitalopram Oxalate 5 mg tablet Discontinued 5 MG PO Every morning June 21, 2023 12:00am March 29, 2024 10:16amfamotidine 20 mg oral tablet (20 sources)Histamine-2 Receptor AntagonistStart: 93-26-5088mxjn 1 tablet by mouth once daily as needed for gastroesophageal reflux diseasefamotidine (PEPCID) 20 mg tablet Take 1 tablet (20 mg total) by mouth nightly as needed for heartburn. 30 tablet 2 07/22/2024 ActiveStart: 07-11-2023 End: 66-82-8658mpvl 1 tablet by mouth once daily as needed for gastroesophageal reflux diseasefamotidine (PEPCID) 20 mg tablet Take 1 tablet (20 mg total) by mouth nightly as needed for heartburn. 30 tablet 2 07/22/2024 Activefurosemide 20 mg oral tablet (1 source)Loop DiureticStart: 47-01-6947wmlm 1 tablet by mouth once daily as needed for edemaFurosemide (Lasix) 20 mg tablet Active 20 MG PO Daily as needed for edema January 27, 2025 12:00amlevothyroxine sodium 0.1 mg oral tablet (20 sources)l-ThyroxineStart: 97-41-3410vstwywityquxr (SYNTHROID, LEVOTHROID) 100 MCG tablet Take 1 tablet (100 mcg total) by mouth. 12/05/2024 ActiveStart: 06-24-2024 End: 96-61-7023ihdlpvbckjyqq (SYNTHROID, LEVOTHROID) 100 MCG tablet Take 1 tablet (100 mcg total) by mouth. 12/05/2024 ActiveStart: 05-10-2024 End: 00-07-3750lyku 1 capsule by mouth once dailyLevothyroxine 75 mcg capsule Discontinued 75 MCG PO Daily May 10, 2024 10:38am June 24, 2024 1:29pmStart: 03-29-2024 End: 12-82-8422pkya 1 capsule by mouth once dailyLevothyroxine 50 mcg capsule Discontinued 50 MCG PO Daily March 29, 2024 12:00am May 10, 2024 10:43am Start: 02-19-2024 End: 27-90-3448xdbj 1 tablet by mouth once dailyLevothyroxine 75 mcg tablet Discontinued 0 .ROUTE .COMPLEX February 19, 2024 9:16am March 290:04am take 1 tablet by mouth dailyStart: 01-18-2024 End: 00-40-3822unqz 1 tablet by mouth once dailyLevothyroxine (Synthroid) 75 mcg tablet Discontinued 75 MCG PO Daily January 18, 2024 12:00am February 19, 2024 9:16amStart: 12-29-2023 End: 98-52-0762cbsu 1 tablet by mouth once dailyLevothyroxine (Synthroid) 50 mcg tablet Discontinued 50 MCG PO Daily December 29, 2023 12:00am January 18, 2024 2:53pm24 hr metoprolol succinate 25 mg extended release oral tablet (20 sources)beta-Adrenergic BlockerStart: 12-10-2024 End: 17-95-3625qnqz 0.5 tablet by mouth every twenty-four hoursmetoprolol succinate XL (TOPROL XL) 25 mg 24 hr tablet Take 0.5 tablets (12.5 mg total) by mouth. 12/10/2024 12/10/2025 ActiveStart: 71-36-0172rdnf 1 tablet by mouth every twenty-four hoursMetoprolol Succinate 25 mg tablet extended release 24 hr Active 25 MG PO As Directed June 21, 2023 12:00amStart: 04-21-2023 End: 90-02-4141mpue 0.5 tablet by mouth every twenty-four hoursmetoprolol succinate XL (TOPROL XL) 25 mg 24 hr tablet Take 0.5 tablets (12.5 mg total) by mouth. 04/21/2023 04/20/2024 ActiveOmeprazole Magnesium (Prilosec Otc) 20 mg tablet,delayed release (DR/EC) (2 sources)Start: 56-50-4204kidk 1 tablet by mouth once dailyOmeprazole Magnesium (Prilosec Otc) 20 mg tablet,delayed release (DR/EC) Active 20 MG PO Daily November 25, 2024 1:00amStart: 37-62-0309bdyo 1 tablet by mouth once dailyOmeprazole Magnesium (Prilosec Otc) 20 mg tablet,delayed release (DR/EC) Active 20 MG PO Daily November 25, 2024 12:00amondansetron 4 mg disintegrating oral tablet (20 sources)Serotonin-3 Receptor AntagonistStart: 10-18-2023 End: 57-92-6140eyjw 1 tablet by mouth every six hours as needed for nausea and vomitingOndansetron 4 mg tablet,disintegrating Active 4 MG PO Q6H as needed for nausea and vomiting 2023 10:15amStart: 10-17-2023 End: 73-61-2917bnzx 1 tablet by mouth every eight hours as needed for nausea Ondansetron 4 mg Tablet,Disintegrating Discontinued 4 MG PO Q8H as needed for Nausea October 17, 2023 8:47pm October 24, 2023 12:58pmpolyethylene glycol 3350 55679 mg powder for oral solution (17 sources)Osmotic LaxativeStart: 30-68-3682awmuolmstwsg glycol (MIRALAX) 17 gram packet Take 17 g by mouth in the morning. 10/24/2023 Activesacubitril 24 mg / valsartan 26 mg oral tablet (20 sources)Angiotensin 2 Receptor BlockerStart: 71-52-9484ryfu 1 tablet by mouth twice dailySacubitril-Valsartan (Entresto) 24-26 mg tablet Active 1 TAB PO Twice daily June 21, 2023 12:00amStart: 17-13-8376ZYYZKZQT 24-26 mg tablet 03/23/2023 ActiveStart: 08-57-1659wnif 1 tablet by mouth once daily at bedtimeENTRESTO 24-26 mg tablet take 1 tablet by mouth every morning and at bedtime 03/23/2023 Activesennosides, halfway 8.6 mg oral tablet (6 sources)Start: 04-55-4486nolkt (SENOKOT) 8.6 mg tablet 10/24/2023 Active spironolactone 25 mg oral tablet (20 sources)Aldosterone AntagonistStart: 32-76-0222Yvufxhdnmhafhi 25 mg tablet Active 12.5 MG PO As Directed June 21, 2023 12:00amStart: 06-21-2023 Spironolactone Active 12.5 MG PO As Directed June 21, 2023 12:00am spironolactone (ALDACTONE) 25 mg tablet Take 1 tablet (25 mg total) by mouth in the morning. Cut inhalf. ActivetraMADol hydrochloride 50 mg oral tablet (2 sources)Opioid AgonistStart: 81-60-3202cudk 1 tablet by mouth every eight hours as neededTramadol 50 mg tablet Active 50 MG PO Every 8 hours as needed January 27, 2025 12:00amStart: 12-16-2024 End: 85-74-5708mjnw 1 tablet by mouth every eight hours as needed for pain traMADoL (ULTRAM) 50 mg tablet Indications: Arthritis, multiple joint involvement Take 1 tablet (50mg total) by mouth every 8 (eight) hours as needed for pain for up to 7 days. 21 tablet 12/16/2024 12/23/2024 Activetriamcinolone acetonide 0.005 mg/mg topical ointment (1 source)CorticosteroidStart: 81-20-6687hqjyyedeyfrmk (KENALOG) 0.5 % ointment Indications: Left leg cellulitis Apply 1 Application topically in the morning and 1 Application before bedtime. 30 g 03/27/2025 Active Completed/Discontinued Medications MedicationDrug Class(es)DatesSig (Normalized)Sig (Original)ALPRAZolam 0.25 mg oral tablet (6 sources)BenzodiazepineStart: 04-07-2023 End: 76-81-6914IMVZRLbjfp (XANAX) 0.25 mg tablet Indications: Anxiety Use twice daily as needed for anxiety - short term use only 10 tablet 04/07/2023 12/16/2024 Discontinued (Therapy completed)axitinib 5 mg oral tablet (14 sources)Kinase InhibitorStart: 09-07-2023 End: 54-68-7060fsnd 1 tablet by mouth twice dailyAxitinib (Inlyta) 5 mg Tablet Discontinued 5 MG PO Twice daily 60 September 07, 2023 1:00am 2023 2:22pm On Hold: Hold until seen by Cancer doctorbenzonatate 100 mg oral capsule (5 sources)Non-narcotic AntitussiveStart: 06-04-2024 End: 84-94-1188hdis 1 capsule by mouth three times dailyBenzonatate 100 mg capsule Discontinued 100 MG PO Three times daily 21 04June 04, 2024 12:00am June 24, 2024 1:69qhKfvxkgtlbda-Rmmsimrdq-Ipppcrfq (6 sources)Anticholinergic, Corticosteroid, beta2-Adrenergic AgonistStart: 05-10-2024 End: 14-18-0032Yxnyfsbgtqj-Umeclidin-Vilanter (Trelegy Ellipta) 100-62.5-25 mcg blister with device Discontinued 1INH INHALATION Daily May 10, 2024 12:00am October 01, 2024 10:27amStart: 05-10-2024 End: 55-40-4260Yvymwmizpcd-Umeclidin-Vilanter (Trelegy Ellipta) 100-62.5-25 mcg blister with device Discontinued 1INH INHALATION Daily May 09, 2024 11:00pm October 01, 2024 9:27amStart: 54-60-3022Mbvmchctiek-Umeclidin-Vilanter (Trelegy Ellipta) 100-62.5-25 mcg blister with device Active 1 INH INHALATION Daily May 10, 2024 12:25fp280 actuat formoterol fumarate 0.0048 mg/actuat / glycopyrrolate 0.009 mg/actuat metered dose inhaler (15 sources)beta2-Adrenergic AgonistStart: 08-28-2023 End: 12-70-0120Qoyuipywxjgpkg-Formoterol (Bevespi Aerosphere) 9-4.8 mcg Hfa Aerosol Inhaler Discontinued 2 PUFF INHALATION Twice daily August 28, 2023 1:00am October 20, 2023 3:29amloratadine 10 mg oral tablet (18 sources)Start: 06-21-2023 End: 05-53-0351rlha 1 tablet by mouth once dailyLoratadine 10 mg Tablet Discontinued 10 MG PO Daily June 21, 2023 12:00am June 23, 2023 1:28pmTiotropium-Olodaterol (17 sources)Anticholinergic, beta2-Adrenergic AgonistStart: 07-31-2023 End: 00-84-9957Yuajcilfps-Olodaterol (Stiolto Respimat) 2.5-2.5 mcg/actuation Mist Discontinued 2 PUFF INHALATION Daily July 31, 2023 12:00am October 20, 2023 3:30amStart: 07-31-2023 End: 01-10-3689Qvnlebwspk-Olodaterol (Stiolto Respimat) 2.5-2.5 mcg/actuation Mist Discontinued 2 PUFF INHALATION Daily July 30, 2023 11:00pm October 20, 2023 2:30amStart: 69-01-5550Uvblbsjwxw-Olodaterol (Stiolto Respimat) 2.5- 2.5 mcg/actuation Mist Active 2 PUFF INHALATION Daily July 30, 2023 11:00pm Start: 86-12-8431Hqdyfkciyd-Olodaterol (Stiolto Respimat) 2.5-2.5 mcg/actuation Mist Active 2 PUFF INHALATION Daily July 31, 2023 12:00amoxyCODONE hydrochloride 5 mg oral tablet (11 sources)Opioid AgonistStart: 10-24-2023 End: 26-78-9596drhn 2.5 mg by mouth every three hours as needed for pain Oxycodone 5 mg Tablet Discontinued 2.5 MG PO Every three hours as needed for Pain 21 03October 24, 2023 May 10, 2024 9:56amStart: 10-24-2023 End: 95-61-1964veti 2.5 mg by mouth every three hoursOxycodone Discontinued 2.5 MG PO Every three hours 21 03October 24, 2023 May 10, 2024 9:56am pantoprazole 40 mg delayed release oral tablet (20 sources)Proton Pump InhibitorStart: 06-21-2023 End: 82-63-0477jysv 1 tablet by mouth once dailyPantoprazole 40 mg Tablet,Delayed Release (Dr/Ec) Discontinued 40 MG PO Daily June 21, 2023 12:00am May 10, 2024 10:40am4 ml pembrolizumab 25 mg/ml injection (6 sources)Programmed Receptor-1 Blocking Antibody End: 80-43-0431yehiozhavdhzb (KEYTRUDA) 25 mg/mL chemo injection as directed Intravenous 12/16/2024 Discontinued (Therapy completed)predniSONE 10 mg oral tablet (5 sources)Start: 10-01-2024 End: 81-50-6438rfmj 1 tablet by mouth once dailyPrednisone 10 mg tablet Discontinued 10 MG PO Daily October 01, 2024 1:00am November 25, 2024 3:55pmStart: 01-30-2024 End: 26-48-6801tieo 1 tablet by mouth in the morningpredniSONE (DELTASONE) 20 mg tablet Take 1 tablet (20 mg total) by mouth in the morning for 7 days.7 tablet 01/30/2024 02/06/2024 ActiveStart: 12-26-2023 End: 40-13-1384jtva 1 tablet by mouth in the morningpredniSONE (DELTASONE) 20 mg tablet Indications: Acute recurrent frontal sinusitis Take 1 tablet (20 mg total) by mouth in the morning for 7 days. 7 tablet 0 12/26/2023 01/02/2024 ActiveRSVPreF3 antigen-AS01E, PF, (AREXVY, PF,) 120 mcg/0.5 mL suspension for reconstitution injection (2 sources)Start: 07-25-2023 End: 78-71-4669RGKElzF2 antigen-AS01E, PF, (AREXVY, PF,) 120 mcg/0.5 mL suspension for reconstitution injection Inject 0.5 mL into the appropriate muscle once. 07/25/2023 01/30/2024 Discontinued (Discontinued by another clinician)Start: 07-15-8407UJIVrvG6 antigen-AS01E, PF, (AREXVY, PF,) 120 mcg/0.5 mL suspension for reconstitution injection Inject 0.5 mL into the appropriate muscle once. 0 07/25/2023 ActiveSennosides (Senna Laxative) 8.6 mg Tablet (11 sources)Start: 10-24-2023 End: 51-40-3844tnqo 1 tablet by mouth twice daily as needed for constipation Sennosides (Senna Laxative) 8.6 mg Tablet Discontinued 8.6 MG PO Twice daily as needed for Constipation October 24, 2023 1:00am October 01, 2024 10:28am Start: 10-24-2023 End: 23-92-4213ccmn 1 tablet by mouth twice daily as needed for constipation Sennosides (Senna Laxative) 8.6 mg Tablet Discontinued 8.6 MG PO Twice daily as needed for Constipation October 24, 2023 12:00am October 01, 2024 9:28am Start: 30-16-6072trzp 1 tablet by mouth twice dailySennosides (Senna Laxative) 8.6 mg Tablet Active 8.6 MG PO Twice daily October 24, 2023 1:00amStart: 17-36-6760gfst 1 tablet by mouth twice dailySennosides (Senna Laxative) 8.6 mg Tablet Active 8.6 MG PO Twice daily October 24, 2023 12:00am sulfamethoxazole 800 mg / trimethoprim 160 mg oral tablet (20 sources)Dihydrofolate Reductase Inhibitor Antibacterial, Sulfonamide AntimicrobialStart: 09-19-2023 End: 28-01-8023msjy 1 tablet by mouth twice dailySulfamethoxazole-Trimethoprim (Bactrim Ds) 800-160 mg Tablet Discontinued 1 TAB PO Twice daily September 19, 2023 1:00am October 20, 2023 3:30amStart: 07-31-2023 End: 09-70-0505sehi 1 tablet by mouth twice dailySulfamethoxazole-Trimethoprim (Bactrim Ds) 800-160 mg Tablet Discontinued 1 TAB PO Twice daily July 31, 2023 12:00am September 12, 2023 1:50pm Problems Active Problems Problem ClassificationProblemDateDocumented DateEpisodic/ChronicAcute myocardial infarction (8 sources)Non-ST elevation (NSTEMI) myocardial infarction; Translations: [Myocardial infarction]Onset: 178163-62-1073CqmozgsTciszvsn reactions (1 source)Allergy status to other antibiotic agents status; Translations: [ALLERGY STATUS OTH ANTIBIOTIC AGENT]Onset: 41-26-1566AcqknjouUadnlfx disorders (2 sources)Anxiety disorder, unspecified; Translations: [Anxiety]Onset: 988658-36-9258ObvsiueMqhsbl of kidney and renal pelvis (20 sources)Clear cell carcinoma of kidney; Translations: [Malignant neoplasm of unspecified kidney, except renal pelvis]Onset: 604304-15-7230Jfcvdbo Cardiac dysrhythmias (1 source)Tachycardia, unspecified; Translations: [TACHYCARDIA UNSPECIFIED] Onset: 19-92-2141NycfkpdvHsllnhe obstructive pulmonary disease and bronchiectasis (20 sources)Chronic obstructive pulmonary disease with (acute) exacerbation; Translations: [Chronic obstructivepulmonary disease with (acute) lower respiratory infection]Onset: 236956-24-2993PikkyuiUkghpwqwyj heart failure; nonhypertensive (20 sources)Acute on chronic systolic (congestive) heart failure; Translations: [Acute systolic (congestive) heart failure]Onset: 01-25-2023 Resolved: 50-44-3941BhqgtuxDewglcso atherosclerosis and other heart disease (9 sources)Acute coronary syndrome; Translations: [Acute ischemic heart disease, unspecified]Onset: 117961-88-5501ExpodkdOtvbivjojr and other anemia (16 sources)Iron deficiency anemia, unspecified; Translations: [Iron deficiency anemia, unspecified]87-41-3814OijuhbemOqbilsjuiwzi with complications and secondary hypertension (5 sources)Benign hypertensive heart disease; Translations: [Hypertensive heart disease with heart failure]Onset: 628730-54-7561MzkqsquOcfmmfmmpsczb and screening for infectious disease (2 sources)Contact with or exposure to other viral diseases; Translations: [Exposure to 2018 novel coronavirus]07-17-5331ZfccgzevUotyfkrrwvg chemotherapy; radiotherapy (20 sources)Patient encounter status; Translations: [Encounter for antineoplastic chemotherapy]91-76-1163WelycveNaojo aftercare (11 sources)Drug therapy finding; Translations: [Other halfway (current) drug therapy]33-35-4928BhhlediwLfdtm aftercare (4 sources)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; Translations: [Long-term (current) use of other medications]87-54-7187CgoocryiLullz diseases of kidney and ureters (12 sources)Renal mass; Translations: [Other specified disorders of kidney and ureter]Onset: 723804-91-1245NvtlikhYomir diseases of kidney and ureters (8 sources)Other specified disorders of kidney and ureter; Translations: [Unspecified disorder of kidney and ureter]87-34-2350TtfihxxDhivb gastrointestinal disorders (4 sources)Constipation, unspecified; Translations: [Constipation, unspecified] 56-26-9418LfxgqlxlGudsd liver diseases (15 sources)Enzyme level - finding; Translations: [Elevated transaminase measurement]98-94-2821TkxjdqhoMwjwi nervous system disorders (17 sources)Pain due to neoplastic disease; Translations: [Neoplasm related pain (acute) (chronic)]Onset: 868765-11-6165RahervnAoqda nervous system disorders (4 sources)Neoplasm related pain (acute) (chronic); Translations: [Neoplasm related pain (acute) (chronic)]06-12-5558NjiqkssXcqnf non-traumatic joint disorders (1 source)Arthropathy of multiple joints; Translations: [Arthropathy, unspecified]99-65-4191BemuudiZerzf non-traumatic joint disorders (1 source)Arthropathy, unspecified; Translations: [Arthropathy, unspecified] Onset: 64-23-0112UibqnffFyttd nutritional; endocrine; and metabolic disorders (3 sources)Morbid obesity; Translations: [Morbid (severe) obesity due to excess calories]Onset: 619503-84-1735RpolixnOdnqd screening for suspected conditions (not mental disorders or infectious disease) (20 sources)Raised cardiac enzyme or marker; Translations: [Other specified abnormal findings of blood chemistry]99-36-8243UihakizcAgrt-; endo-; and myocarditis; cardiomyopathy (except that caused by tuberculosis or sexually transmitted disease) (20 sources)Cardiomyopathy; Translations: [Other cardiomyopathies]Onset: 937710-20-6974NyevjbaAjxalghag (except that caused by tuberculosis or sexually transmitted disease) (1 source)Parainfluenza virus pneumonia; Translations: [PARAINFLUENZA VIRUS PNEUMONIA]Onset: 50-29-4520ObzuupchNxcmbnnc codes; unclassified (1 source)Family history of ischemic heart disease and other diseases of the circulatory system; Translations: [FAM HX ISCHEMIC HRT DZ OTH DZ CIRC]Onset: 02-89-7748QfgqqtieKyiytlyd codes; unclassified (1 source)Family history of diabetes mellitus; Translations: [FAMILY HISTORY OF DIABETES MELLITUS]Onset: 89-08-9526LvifdszrEpfovgmp codes; unclassified (1 source)Family history of epilepsy and other diseases of the nervous system; Translations: [FAM HX EPILEPSYOTH DZ NERV SYS]Onset: 72-50-5247NocagauhXvsdmpwr codes; unclassified (1 source)Family history of other infectious and parasitic diseases; Translations: [FAM HX OTH INFECTIOUS PARASITIC DZ]Onset: 12-26-2130Wzbykyaj Respiratory failure; insufficiency; arrest (adult) (20 sources)Chronic hypoxemic respiratory failure; Translations: [Chronic respiratory failure with hypoxia]Onset: 01-30-2024 Resolved: 271890-47-1492XbgmnpaNitiffr on above:2 L Oxygen via NC at all times.Septicemia (except in labor) (3 sources)Other specified sepsis; Translations: [OTHER SPECIFIED SEPSIS]Onset: 10-34-9054PwwtvmmhVjwsf (1 source)Cardiogenic shock; Translations: [CARDIOGENIC SHOCK]Onset: 02-02-2023 EpisodicSkin and subcutaneous tissue infections (2 sources)Cellulitis of left lower limb; Translations: [Cellulitis of left lower limb]Onset: 631448-84-4438PxwvgcpcFplrxrsho-elegqtr disorders (1 source)Nicotine dependence, cigarettes, uncomplicated; Translations: [NICOTINE DEPEND CIGARETTES UNCOMP]Onset: 14-06-9315PqbfkqnPumfykwlvgta (1 source)Personal history of tuberculosis; Translations: [PERSONAL HISTORY OF TUBERCULOSIS]Onset: 10-38-9051JwccjbhnJzzkyygeqzte (1 source)OTHER ACIDOSIS; Translations: [OTHER ACIDOSIS]Onset: 02-02-2023 Unclassified (1 source)CONTACT W/AND (SUSP) EXPOS COVID-19; Translations: [CONTACT W/AND (SUSP) EXPOS COVID-19]Onset: 08-17-3767Liqniavxpazw (1 source)ER f/u [place]vueOnset: 03-27-2025 Past or Other Problems Problem ClassificationProblemDateDocumented DateEpisodic/ChronicAcute and unspecified renal failure (20 sources)Nephrotoxic acute renal failure; Translations: [Other acute kidney failure]Onset: 386599-55-3228WtmtmonhKzlgeodlnytvor/social admission (20 sources)Advance directive discussed with patient; Translations: [Other specified counseling]Onset: 964351-90-4075RzqeocoxSomxdsqmgz and other anemia (20 sources)Iron deficiency anemia; Translations: [Iron deficiency anemia, unspecified]Onset: 911121-90-0412XwboevmwLgmns and electrolyte disorders (20 sources)Hypo-osmolality and hyponatremia; Translations: [Hyponatremia]Onset: 183830-15-1636EpuuzianYyrh disorders (7 sources)Mood disordersOnset: 01-30-2024 Resolved: Nausea and vomiting (20 sources)Nausea; Translations: [Intractable nausea and vomiting]Onset: 169519-11-4278HmfttcnzHzcym gastrointestinal disorders (17 sources)Constipation; Translations: [Constipation, unspecified]Onset: 100672-36-3802WnryjjomCrypd upper respiratory infections (2 sources)Acute upper respiratory infection, unspecified; Translations: [Acute recurrent frontal sinusitis]Onset: 213060-04-2265KlhaftfoNvkpaivosqi failure; insufficiency; arrest (adult) (9 sources)Acute respiratory failure with hypoxia; Translations: [Acute respiratory failure with hypercapnia]Onset: 01-25-2023 Resolved: 072115-08-0415BsetizmdWacsnevadkhs (2 sources)Onset: 12-16-2024 Resolved: Viral infection (9 sources)Other viral agents as the cause of diseases classified elsewhere; Translations: [COVID-19]Onset: 277367-42-6551Zvkorajn Results Test NameValueInterpretationReference RangeFacilityOffice Visiton 07-14-2025 Follow-up [id number] Perla Ibarra 1955 Date Provider Department Center 07/14/2025 RANJAN RYAN Family History Problem Relation Age of Onset Tuberculosis Mother Heart attack Brother Heart failure Maternal Grandmother Heart attack Maternal Grandfather Family Status - Relation Status Age at Mother Father Sister Brother Maternal Grandmother Maternal Grandfather Level of Service:97641 MD OFFICE/OUTPATIENT ESTABLISHED MOD MDM 30 MIN Reason for Visit and Comments: Follow-up [589477] - Patient is here today for a 3 month follow up office visit. Patient would like to talk about the rash on her arms, possible due to her heart medication, and would like to talk about Asprin Coronary Artery Disease [187] Congestive Heart Failure [127] Cardiomyopathy [104] - Nonischemic Hypertension [917750] Pulmonary Hypertension [818] Fatigue [46] - Very fatigue, and thinks she is possible anemicNormalUniversPremier Health Miami [facility] NorthOffice Visiton 42-11-9000Vyxfer-up [id number] Perla Ibarra 1955 F Date Provider Department Center 04/14/2025 RANJAN RYAN Family History Problem Relation Age of Onset Tuberculosis Mother Heart attack Brother Heart failure Maternal Grandmother Heart attack Maternal Grandfather Family Status - Relation Status Age at Mother Father Sister Brother Maternal Grandmother Maternal Grandfather Level of Service:07344 MD OFFICE/OUTPATIENT ESTABLISHED MOD MDM 30 MINMcKitrick HospitalOffice Visiton 11-52-2049Bybxxc-up visit [id number] Perla Ibarra 1955 F Date Provider Department Center 11/04/2024 AMMY ARITA Family History Problem Relation Age of Onset Tuberculosis Mother Heart attack Brother Heart failure Maternal Grandmother Heart attack Maternal Grandfather Family Status - Relation Status Age at Mother Brother Maternal Grandmother Maternal Grandfather Level of Service:72839 MD OFFICE/OUTPATIENT ESTABLISHED LOW MDM 20 [facility] HospitalAdrenocorticotropic Hormone PLon 10-01-2024 Adrenocortic[address] Hormone PL28.6 pg/mLNormal7.2-63.3The [facility] Physician GroupComment on above:Result Comment: ACTH reference interval for samples collected between 7 and 10 AM. Performed at: [facility] [address] [place], [place] [id number] Salesforce Consultant: Juan Hnedricks PhD, Phone: [phone] PERFORMED BY: [place] [address] PATHOLOGIST ELECTRICAL SYSTEMS DESIGN ENGINEER SHIRA GALLO M.D.Performed By: #### T4F, TSH3, JER, CMP #### [address] #### ACTH #### [facility] ,Adrenocorticotropic hormone (ACTH) measurementOrdered By: Aries Chavez on 00-57-2906Zwjpojizsialymtusia Isexqmv01.6 pg/mL7.2-63.3FMercy Health St. Elizabeth Boardman HospitalComment on above:ACTH reference interval for samples collected between 7 and10 AM.Performed at: AboutMyStarBay[facility] CenterKkenqy[address] [place] [id number] Director: Juan Hendricks PhD, Phone: [phone] aminotransferase [Enzymatic activity/volume] in Serum or PlasmaOrdered By: Aries Chavez on 76-55-1769LZM [Catalytic activity/Vol]Alanine aminotransferase [Enzymatic activity/volume] in Serum or Plasma7-[facility] HospitalAlbumin [Mass/volume] in Serum or Plasma by Bromocresol green (BCG) dye binding methoOrdered By: Aries Chavez on 79-28-3705Uawhrhi BCG dye [Mass/Vol]Albumin [Mass/volume] in Serum or Plasma by Bromocresol green (BCG) dye binding metho3.5-5.7FMercy Health St. Elizabeth Boardman HospitalAlkaline phosphatase [Enzymatic activity/volume] in Serum or PlasmaOrdered By: Aries Chavez on 47-64-9571WLU [Catalytic activity/Vol]Alkaline phosphatase [Enzymatic activity/volume] in Serum or Jwpiar76-013PbkptcebmHocking Valley Community HospitalAspartate aminotransferase [Enzymatic activity/volume] in Serum or Plasma Ordered By: Aries Chavez on 46-06-3684XXM [Catalytic activity/Vol]Aspartate aminotransferase [Enzymatic activity/volume] in Serum or Waksuo75-41NzedbsmoaHocking Valley Community HospitalBasophils Auto (Bld) [#/Vol]Ordered By: Aries Chavez on 55-73-4771Kogktkugd (Bld) [#/Vol]Automated basophil count0.0-0.2FMercy Health St. Elizabeth Boardman HospitalBasophils/100 WBC Auto (Bld)Ordered By: Aries Chavez on 72-51-1406Xvnzxkxjo/100 WBC (Bld)Automated basophil %.[facility] HospitalBilirubin.total [Mass/volume] in Serum or PlasmaOrdered By: Aries Chavez on 56-00-8610Pkkpowgef [Mass/Vol]Bilirubin.total [Mass/volume] in Serum or Plasma0.3-1.0H[facility] HospitalCBC W Auto Differential panel (Bld)on 90-23-5218Shsqsxlrw (Bld) [#/Vol]0.1 10*3/uL0.0 - 0.2 10*3/uLNOMS HealthcareBasophils/100 WBC Manual cnt (Syn fld)2 %.[facility] Eosinophils (Bld) [#/Vol]0.9 10*3/uLHigh0.0 - 0.45 10*3/uLNOMS Healthcare Eosinophils/100 WBC Manual cnt (Syn fld)12.6 %.[facility] HealthcareErythrocyte distribution width (RBC) [Ratio]13.2 %11.9 - 15.3 %[facility] HealthcareHematocrit (Bld) [Volume fraction]35.5 %34.0 - 46.4 %[facility] HealthcareHemoglobin (Bld) [Mass/Vol]11.7 g/dLLow11.8 - 15.4 g/dLHEBER VALLEY MEDICAL CENTER HealthcareInterpretation and review of laboratory resultsAbnormalHEBER VALLEY MEDICAL [facility]ENTER HealthcareLymphocytes (Bld) [#/Vol]1.1 10*3/uL 1.00 - 4.8 10*3/uLNOMS HealthcareLymphocytes/100 WBC Manual cnt (Syn fld)15.3 %. [facility] HospitalH (RBC) [Entitic mass]28.9 pg24.7 - 34.3 pgLee's Summit HospitalHC (RBC) [Mass/Vol]32.8 g/dL32.0 - 35.0 g/dLLee's Summit HospitalV (RBC) [Entitic vol] 88 fL80 - 100 fLHEBER VALLEY MEDICAL CENTER HealthcareMonocytes (Bld) [#/Vol]0.7 10*3/uL0.0 - 0.8 10*3/uLNOMS HealthcareMonocytes+Macrophages/100 WBC Manual cnt (Syn fld)10.2 %. [facility] HealthcareNeutrophils (Bld) [#/Vol]4.4 10*3/uL1.8 - 7.7 10*3/uLNOMS HealthcareNeutrophils/100 WBC Manual cnt (Syn fld)59.9 %.[facility] HealthcareNRBC0.1 /100{WBC}0 - 0.5 /100{WBC}[facility] HealthcarePlatelet mean volume (Bld) [Entitic vol]8.8 fL6.3 - 10.7 fLHEBER VALLEY MEDICAL CENTER HealthcarePlatelets (Bld) [#/Vol]261 10*3/uL150 - 450 10*3/uLNOMS HealthcareRBC LM.HPF (Urine sed) [#/Area]4.04 10*6/uL3.60 - 5.00 10*6/uLNOMS HealthcareWBC (Bld) [#/Vol]7.3 10*3/uL3.8 - 11.6 10*3/uLNOMS HealthcareWBC LM.HPF (Urine sed) [#/Area]7.3 10*3/uL3.8 - 11.6 10*3/uLNOMS HealthcareNOMS HealthcareCalcium [Mass/volume] in Serum or PlasmaOrdered By: Aries Chavez on 89-79-5475Ztwwefg [Mass/Vol]Calcium [Mass/volume] in Serum or Plasma8.6-10.3FMercy Health St. Elizabeth Boardman HospitalCarbon dioxide, total [Moles/volume] in Serum or PlasmaOrdered By: Aries Chavez on 78-11-4852WY5 [Moles/Vol]Carbon dioxide, total [Moles/volume] in Serum or Hfjelj93.0-31.0 [facility] HospitalChloride [Moles/volume] in Serum or Plasma Ordered By: Aries Chavez on 57-15-4679Tddvcuda [Moles/Vol]Chloride [Moles/volume] in Serum or Niosre82-178BejmfdnijHocking Valley Community HospitalComplete Blood Count Auto Diffon 01-90-8929Yymexguhc (Bld) [#/Vol]0.1 10*3/uLNormal 0.0-0.2The [facility] Physician GroupComment on above:Result Comment: PERFORMED BY: [place] [address] PATHOLOGIST ELECTRICAL SYSTEMS DESIGN ENGINEER SHIRA GALLO M.D.Performed By: #### CBC, CMP #### [place] [address] USABasophils/100 WBC (Bld)2.0 %Normal.The [facility] Physician GroupComment on above:Performed By: #### CBC, CMP #### [facility] [address] [place] [address] USAEosinophils (Bld) [#/Vol]0.9 10*3/uLHigh0.0-0.45The [facility] Physician GroupComment on above:Performed By: #### CBC, CMP #### [place] [address] USAEosinophils/100 WBC (Bld)12.6 %Normal.The [facility] Physician GroupComment on above:Performed By: #### CBC, CMP #### [place] [address] USAErythrocyte distribution width (RBC) [Ratio]13.2 %Normal 11.9-15.3The [facility] Physician GroupComment on above:Performed By: #### CBC, CMP #### [place] [address] USAHematocrit (Bld) [Volume fraction]35.5 %Pkuaxk76.0-46.4The [facility] Physician GroupComment on above:Performed By: #### CBC, CMP #### [place] [address] USAHemoglobin (Bld) [Mass/Vol]11.7 g/dLLow11.8-15.4The [facility] Physician GroupComment on above:Performed By: #### CBC, CMP #### [place] [address] USALymphocytes (Bld) [#/Vol]1.1 10*3/uLNormal1.00-4.8The [facility] Physician GroupComment on above:Performed By: #### CBC, CMP #### [place] [address] USALymphocytes/100 WBC (Bld)15.3 %Normal.The [facility] Physician GroupComment on above:Performed By: #### CBC, CMP #### [place] [address] USAMCH (RBC) [Entitic mass]28.9 xoCcljxm97.7-34.3The [facility] Physician GroupComment on above:Performed By: #### CBC, CMP #### [place] [address] USAMCV (RBC) [Entitic vol]88.0 cHOvcqjw00-424Ejq [facility] Physician GroupComment on above:Performed By: #### CBC, CMP #### [place] [address] USAMean Corpuscular HGB Conc32.8 g/qDGkzqmu39.0-35.0The [facility] Physician GroupComment on above:Performed By: #### CBC, CMP #### [address] [place] [address] USAMonocytes (Bld) [#/Vol]0.7 10*3/uLNormal0.0-0.8The [facility] Physician GroupComment on above:Performed By: #### CBC, CMP #### [facility] [address] [place] [address] USAMonocytes/100 WBC (Bld)10.2 %Normal.The [facility] Physician GroupComment on above:Performed By: #### CBC, CMP #### [facility] [address] [place] [address] USANeutrophils (Bld) [#/Vol]4.4 10*3/uLNormal1.8-7.7The [facility] Physician GroupComment on above:Performed By: #### CBC, CMP #### [place] [address] USANeutrophils/100 WBC (Bld)59.9 %Normal.The [facility] Physician GroupComment on above:Performed By: #### CBC, CMP #### [place] [address] USANRBC%0.1 /100{WBC}Normal0-0.5The [facility] Physician Group Comment on above:Performed By: #### CBC, CMP #### [place] [address] USAPlatelet mean volume (Bld) [Entitic vol]8.8 fLNormal 6.3-10.7The [facility] Physician GroupComment on above:Performed By: #### CBC, CMP #### [place] [address] USAPlatelets (Bld) [#/Vol]261 10*3/bGElflmi353-273Bqj [facility] Physician GroupComment on above:Performed By: #### CBC, CMP #### [place] [address] USARBC (Bld) [#/Vol]4.04 10*6/uLNormal3.60-5.00The [facility] Physician GroupComment on above:Performed By: #### CBC, CMP #### [place] [address] USAWBC (Bld) [#/Vol]7.3 10*3/uLNormal3.8-11.6The [facility] Physician GroupComment on above:Performed By: #### CBC, CMP #### [address]Comprehensive Metabolic Panelon 55-27-1038Jiaxppz [Mass/Vol]3.6 g/dLNormal3.5-5.7The [facility] Physician GroupComment on above: Performed By: #### T4F, TSH3, JER, CMP #### [address] #### ACTH #### [facility] ,Albumin/Globulin [Mass ratio]1.0 {ratio}NormalThe [facility] Physician Group Comment on above:Performed By: #### T4F, TSH3, JER, CMP #### [address] #### ACTH #### [facility] ,ALP [Catalytic activity/Vol]78 U/BOslbps72-572Jbk [facility] Physician Group Comment on above:Performed By: #### T4F, TSH3, JER, CMP #### [address] #### ACTH #### [facility] ,ALT [Catalytic activity/Vol]10 U/LNormal7-52The [facility] Physician Group Comment on above:Performed By: #### T4F, TSH3, JER, CMP #### [place] [address] [place] #### ACTH #### [facility] ,Anion gap [Moles/Vol]8.7 mmol/LNormal6.0-15.0The [facility]ician Group Comment on above:Performed By: #### T4F, TSH3, JER, CMP #### [address] #### ACTH #### [facility] ,AST [Catalytic activity/Vol]17 U/OWnatof05-04Ajm [facility] Physician Group Comment on above:Performed By: #### T4F, TSH3, JER, CMP #### [facility] [address] [place] [address] #### ACTH #### [facility] ,Bilirubin [Mass/Vol]0.5 mg/dLNormal0.3-1.0The [facility] Physician GroupComment on above:Performed By: #### T4F, TSH3, JER, CMP #### [facility] [address] [place] [address] #### ACTH #### [facility] ,Calcium [Mass/Vol]9.0 mg/dLNormal8.6-10.3The [facility] Physician GroupComment on above:Performed By: #### T4F, TSH3, JER, CMP #### [address] #### ACTH #### [facility] ,Chloride [Moles/Vol]98 mmol/QDhblzm58-649Eof [facility] Physician GroupComment on above:Performed By: #### T4F, TSH3, JER, CMP #### [address] #### ACTH #### [facility] ,CO2 [Moles/Vol]28.4 mmol/POjwjme71.0-31.0The [facility] Physician GroupComment on above:Performed By: #### T4F, TSH3, JER, CMP #### [facility] [address] [place] [address] [place] #### ACTH #### [facility] ,Creatinine [Mass/Vol]0.95 mg/dLNormal0.60-1.20The [facility] Physician Group Comment on above:Performed By: #### T4F, TSH3, JER, CMP #### [place] [address] [place] #### ACTH #### [facility] ,Creatinine Clr Calc Rvgxcqfv08.44NoScotland Memorial Hospital Physician GroupComment on above:Performed By: #### T4F, TSH3, JER, CMP #### [place] [address] [place] #### ACTH #### [facility] ,GFR/1.73 sq M.predicted MDRD (S/P/Bld) [Vol rate/Area]mL/min/{1.73_m2}NormalThe [facility] Physician GroupComment on above:Performed By: #### T4F, TSH3, JER, CMP #### [place] [address] [place] #### ACTH #### [facility] ,Globulin (S) [Mass/Vol]3.5 g/dLNoScotland Memorial Hospital Physician GroupComment on above:Performed By: #### T4F, TSH3, JER, CMP #### [place] [address] [place] #### ACTH #### [facility] ,Glucose [Mass/Vol]92 mg/oWXspexd18-761Ntd [facility] Physician GroupComment on above:Result Comment: Random Glucose Reference Range is dependent on time and content of last meal. Glucose of more than 200 mg/dL in a nonstressed, ambulatory subject supports the diagnosis of Diabetes Mellitus. ADA recommended reference rangePerformed By: #### T4F, TSH3, JER, CMP #### [place] [address] [place] #### ACTH #### [facility] ,Potassium [Moles/Vol]4.1 mmol/LNormal3.5-5.1The [facility] Physician Group Comment on above:Performed By: #### T4F, TSH3, JER, CMP #### [place] [address] [place] #### ACTH #### [facility] ,Protein [Mass/Vol]7.1 g/dLNormal6.4-8.9The [facility] Physician GroupComment on above:Performed By: #### T4F, TSH3, JER, CMP #### [facility] [address] [place] [address] #### ACTH #### [facility] ,Sodium [Moles/Vol]131 mmol/AMqj046-912Npl [facility] Physician GroupComment on above:Performed By: #### T4F, TSH3, JER, CMP #### [place] [address] [place] #### ACTH #### [facility] ,Urea nitrogen [Mass/Vol]18 mg/dLNormal7-25The [facility] Physician GroupComment on above:Performed By: #### T4F, TSH3, JER, CMP #### [place] [address] [place] #### ACTH #### [facility] ,Cortisolon 93-78-3631Firmprzu52.0 ug/dLNoScotland Memorial Hospital Physician Group Comment on above:Result Comment: Reference range: AM 6 - 24 ug/dl PM <10 ug/dl [facility] Laboratory mdm sr and method: AMRITA UNICEL DXI, POLYCLONAL ANTIBODY CORTISOL ASSAY. PERFORMED BY: [place] [address] PATHOLOGIST ELECTRICAL SYSTEMS DESIGN ENGINEER SHIRA GALLO M.D.Performed By: #### T4F, TSH3, JER, CMP #### [place] [address] [place] #### ACTH #### [facility] ,Cortisol [Mass/volume] in Serum or PlasmaOrdered By: Aries Chavez on 18-76-1780Icoegisc [Mass/Vol]Random cortisol measurementHocking Valley Community HospitalComment on above:[facility] Laboratory mdm sr and method:AMRITA UNICEL DXI, POLYCLONAL ANTIBODY CORTISOL ASSAY.Reference range: AM 6 - 24 ug/dl PM <10 ug/dlCreatinine [Mass/volume] in Serum or PlasmaOrdered By: Aries Chavez on 59-45-1599Hdkntcpdad [Mass/Vol]Creatinine [Mass/volume] in Serum or Plasma0.60-1.20[facility] HospitalEosinophils Auto (Bld) [#/Vol]Ordered By: Aries Chavez on 96-66-3914Fvjfevdyyfr (Bld) [#/Vol]Automated eosinophil countHigh0.0-0.45[facility] Eosinophils/100 WBC Auto (Bld)Ordered By: Aries Chavez on 10-01-2024 Eosinophils/100 WBC (Bld)Automated eosinophil %.[facility] Community HospitalErythrocyte distribution width Auto (RBC) [Ratio]Ordered By: Aries Chavez on 26-89-1204Xewamxjigwn distribution width (RBC) [Ratio]Erythrocyte distribution width [Ratio] by Automated count11.9-15.3FMercy Health St. Elizabeth Boardman HospitalFree T4 (Free Thyroxine)on 48-48-3712Phyz T4 [Mass/Vol]0.45 ng/dLLow 0.61-1.12The [facility] Physician GroupComment on above:Performed By: #### T4F, TSH3, JER, CMP #### [facility] [address] #### ACTH #### [facility] ,Globulin Calc (S) [Mass/Vol]Ordered By: Aries Chavez on 75-27-4882Rshwbsdo (S) [Mass/Vol]Serum globulin measurement by calculation (mass/volume)[facility] HospitalGlucose [Mass/volume] in Serum or PlasmaOrdered By: Aries Chavez on 31-84-8151Ffbaqgc [Mass/Vol]Glucose [Mass/volume] in Serum or Bxtgfd27-514MknkezhdwHocking Valley Community HospitalComment on above:ADA recommended reference rangeRandom Glucose Reference Range is dependent on time and content of last meal. Glucose of more than 200 mg/dL in a nonstressed, ambulatory subject supports the diagnosisof Diabetes Mellitus.Hematocrit Auto (Bld) [Volume fraction]Ordered By: Aries Chavez on 67-84-2285Yazsijhikb (Bld) [Volume fraction]Hematocrit [Volume Fraction] of Blood by Automated count34.0-46.4 [facility] HospitalHemoglobin [Mass/volume] in BloodOrdered By: Aries Chavez on 65-70-9856Degqfllwwo (Bld) [Mass/Vol]Hemoglobin [Mass/volume] in WrzmjWyf18.8-15.4FMercy Health St. Elizabeth Boardman HospitalLeukocytes [#/volume] corrected for nucleated erythrocytes in Blood by Automated coun Ordered By: Aries Chavez on 79-40-4226OLJ corrected for nucl RBC Auto (Bld) [#/Vol]Leukocytes [#/volume] corrected for nucleated erythrocytes in Blood by Automated coun3.8-11.6FMercy Health St. Elizabeth Boardman HospitalLymphocytes Auto (Bld) [#/Vol]Ordered By: Aries Chavez on 40-27-9153Ywksijvigdt (Bld) [#/Vol] Lymphocytes [#/volume] in Blood by Automated count1.00-4.8[facility] HospitalLymphocytes/100 WBC Auto (Bld)Ordered By: Aries Chavez on 19-85-7543Hdwctkxykua/100 WBC (Bld)Lymphocytes/100 leukocytes in Blood by Automated count.[facility] HospitalMCH Auto (RBC) [Entitic mass] Ordered By: Aries Chavez on 74-19-9731ZVY (RBC) [Entitic mass]MCH [Entitic mass] by Automated count24.7-34.3FMercy Health St. Elizabeth Boardman HospitalMCHC Auto (RBC) [Mass/Vol]Ordered By: Aries Chavez on 91-99-6522CVWO (RBC) [Mass/Vol] MCHC [Mass/volume] by Automated count32.0-35.0[facility] MCV Auto (RBC) [Entitic vol]Ordered By: Aries Chavez on 35-26-6523KGI (RBC) [Entitic vol]MCV [Entitic volume] by Automated lnoeo59-508UhwoymjgxHocking Valley Community HospitalMonocytes Auto (Bld) [#/Vol]Ordered By: Aries Chavez on 71-78-9539Gaplrswqs (Bld) [#/Vol]Automated blood monocyte count0.0-0.8[facility] HospitalMonocytes/100 WBC Auto (Bld)Ordered By: Aries Chavez on 68-11-2494Qqflzuunt/100 WBC (Bld)Automated monocyte %.[facility] HospitalNeutrophils Auto (Bld) [#/Vol]Ordered By: Aries Chavez on 10-85-3728Xgqgzpmjzfz (Bld) [#/Vol]Neutrophils [#/volume] in Blood by Automated count1.8-7.7FMercy Health St. Elizabeth Boardman HospitalNeutrophils/100 WBC Auto (Bld) Ordered By: Aries Chavez on 40-78-4535Jtqkbutfpbt/100 WBC (Bld)Automated neutrophil %.[facility] HospitalNo Panel InformationOrdered By: Aries Chavez on 23-89-8567Vbnmgtpif GFR (CKD-EPI)> 60.0 mL/MinHocking Valley Community HospitalPharmacy Creatinine Clearance (Chem61.44H[facility] Community HospitalNucleated erythrocytes [Presence] in Blood by Automated countOrdered By: Aries Chavez on 03-69-4315Wjzklpjij RBC Auto Ql (Bld) Nucleated erythrocytes [Presence] in Blood by Automated count0-0.5FMercy Health St. Elizabeth Boardman HospitalPlatelet mean volume Auto (Bld) [Entitic vol]Ordered By: Aries Chavez on 48-66-2262Vbqydcvb mean volume (Bld) [Entitic vol]Platelet mean volume [Entitic volume] in Blood by Automated count6.3-10.7FMercy Health St. Elizabeth Boardman HospitalPlatelets Auto (Bld) [#/Vol]Ordered By: Aries Chavez on 66-73-0068Msijwsjna (Bld) [#/Vol]Platelets [#/volume] in Blood by Automated radvj827-029WdnjgyonbHocking Valley Community HospitalPotassium [Moles/volume] in Serum or PlasmaOrdered By: Aries Chavez on 21-15-4862Jrrjxaeer [Moles/Vol] Potassium [Moles/volume] in Serum or Plasma3.5-5.1FMercy Health St. Elizabeth Boardman HospitalProtein [Mass/volume] in Serum or PlasmaOrdered By: Aries Chavez on 13-43-4351Wkrfsrr [Mass/Vol]Protein [Mass/volume] in Serum or Plasma6.4-8.9 [facility] HospitalRBC Auto (Bld) [#/Vol]Ordered By: Aries Chavez on 83-24-6709MWG (Bld) [#/Vol]Erythrocytes [#/volume] in Blood by Automated count3.60-5.00[facility] Hospitalerum or plasma albumin/globulin mass ratioOrdered By: Aries Chavez on 10-01-2024 Albumin/Globulin [Mass ratio]Serum or plasma albumin/globulin mass ratio [facility] Hospitalerum or plasma anion gap determinationOrdered By: Aries Chavez on 79-52-9359Krhgd gap [Moles/Vol]Serum or plasma anion gap determination6.0-15.0[facility] Hospitalodium [Moles/volume] in Serum or PlasmaOrdered By: Aries Chavez on 78-31-2028Ivekss [Moles/Vol] Sodium [Moles/volume] in Serum or ZunrxpHee043-044EpdlgllfxHocking Valley Community HospitalThyroid Stimulating Hormoneon 27-93-9982GZI Qn45.50 m[IU]/LHigh0.45-5.33 [facility] Physician GroupComment on above:Performed By: #### T4F, TSH3, JER, CMP #### [address] #### ACTH #### [facility] ,Thyrotropin [Units/volume] in Serum or PlasmaOrdered By: Aries Chavez on 67-21-0430IPM QnThyrotropin [Units/volume] in Serum or PlasmaHigh0.45-5.33 [facility] HospitalThyroxine (T4) free [Mass/volume] in Serum or PlasmaOrdered By: Aries Chavez on 93-10-9202Gxki T4 [Mass/Vol]Thyroxine (T4) free [Mass/volume] in Serum or PlasmaLow0.61-1.12[facility] HospitalUrea nitrogen [Mass/volume] in Serum or PlasmaOrdered By: Aries Chavez on 37-36-4106Uoue nitrogen [Mass/Vol]Urea nitrogen [Mass/volume] in Serum or Plasma7-25[facility] HospitalWBC Auto (Bld) [#/Vol] Ordered By: Aries Chavez on 02-21-7982XIT (Bld) [#/Vol]Leukocytes [#/volume] in Blood by Automated count3.8-11.6FMercy Health St. [facility] Hospital ADRENOCORTICOTROPIC HORMONE PLon 04-44-0095SGQFDFRPJCGHXVYXGDN HORMONE PL51.6 pg/mL7.2 - 63.3 pg/mLNOMS HealthcareComment on above:ACTH reference interval for samples collected between 7 and 10 AM. Performed at: [address] [id number] [employer] Consultant: Juan Hendricks PhD, Phone: [phone] NOMS HealthcareAdrenocorticotropic Hormone PLon 72-53-2595Wbhrwklwxbhxeexyufc Hormone PL51.6 pg/mLNormal7.2-63.3The [facility] Physician GroupComment on above: Result Comment: ACTH reference interval for samples collected between 7 and 10 AM. Performed at: [address] [id number] [employer] Consultant: Juan Hendricks PhD, Phone: [phone] PERFORMED BY: [place] [address] PATHOLOGIST ELECTRICAL SYSTEMS DESIGN ENGINEER STEFANO HOLT M.D.Performed By: #### CBC, CMP #### [facility] [address] [place], [place] [address]Alanine aminotransferase [Enzymatic activity/volume] in Serum or PlasmaOrdered By: Aries Chavez on 14-93-5277CVI [Catalytic activity/Vol]11 U/LNormalHocking Valley Community HospitalComment on above: Performed By: #### T4F, JER, CMP, TSH3 #### [facility] [address] [place] [address] [place] #### ACTH #### [facility] ,Albumin [Mass/volume] in Serum or Plasma by Bromocresol green (BCG) dye binding methoOrdered By: Aries Chavez on 13-95-6747Obesrsq BCG dye [Mass/Vol]3.7 g/dL3.5-5.7FMercy Health St. Elizabeth Boardman HospitalAlkaline phosphatase [Enzymatic activity/volume] in Serum or PlasmaOrdered By: Aries Chavez on 06-18-2024 ALP [Catalytic activity/Vol]76 U/IOdmysn54-663VmrbhjwbdHocking Valley Community Hospital Comment on above:Performed By: #### T4F, JER, CMP, TSH3 #### [facility] [address] [place] [address] [place] #### ACTH #### [facility] ,Aspartate aminotransferase [Enzymatic activity/volume] in Serum or Plasma Ordered By: Aries Chavez on 33-28-4190BDS [Catalytic activity/Vol]19 U/L Ioapic40-24TxdrmhtnnHocking Valley Community HospitalComment on above:Performed By: #### T4F, JER, CMP, TSH3 #### [place] [address] [place] #### ACTH #### [facility] ,Automated basophil %Ordered By: Aries Chavez on 38-05-1243Kbrbijejl/100 WBC (Bld)1.4 %Normal.[facility] HospitalComment on above:Performed By: #### T4F, TSH3, JER, CMP #### [place] [address] [place] #### ACTH #### [facility] ,Automated basophil countOrdered By: Aries Chavez on 93-19-5564Khaysnihe (Bld) [#/Vol]0.1 10*3/uLNormal0.0-0.2FMercy Health St. Elizabeth Boardman HospitalComment on above:Result Comment: PERFORMED BY: [place] [address] PATHOLOGIST ELECTRICAL SYSTEMS DESIGN ENGINEER STEFANO HOLT M.D.Performed By: #### T4F, TSH3, JER, CMP #### [place] [address] [place] #### ACTH #### [facility] ,Automated blood monocyte countOrdered By: Aries Chavez on 06-18-2024 Monocytes (Bld) [#/Vol]0.8 10*3/uLNormal0.0-0.8[facility] Comment on above:Performed By: #### T4F, TSH3, JER, CMP #### [facility] [address] [place] [address] #### ACTH #### [facility] ,Automated eosinophil %Ordered By: Aries Chavez on 06-18-2024 Eosinophils/100 WBC (Bld)6.1 %Normal.[facility] HospitalComment on above:Performed By: #### T4F, TSH3, JER, CMP #### [place] [address] [place] #### ACTH #### [facility] ,Automated eosinophil countOrdered By: Aries Chavez on 06-18-2024 Eosinophils (Bld) [#/Vol]0.5 10*3/uLHigh0.0-0.45[facility] HospitalComment on above:Performed By: #### T4F, TSH3, JER, CMP #### [facility] [address] [place] [address] [place] #### ACTH #### [facility] ,Automated monocyte %Ordered By: Aries Chavez on 78-64-9055Svrpmzdsh/100 WBC (Bld)9.1 %Normal.[facility] HospitalComment on above:Performed By: #### T4F, TSH3, JER, CMP #### [place] [address] [place] #### ACTH #### [facility] ,Automated neutrophil %Ordered By: Aries Chavez on 06-18-2024 Neutrophils/100 WBC (Bld)70.9 %Normal.[facility] HospitalComment on above:Performed By: #### T4F, TSH3, JER, CMP #### [facility] [address] [place] [address] [place] #### ACTH #### [facility] ,Bilirubin.total [Mass/volume] in Serum or PlasmaOrdered By: Aries Chavez on 15-60-9820Ryxkdahux [Mass/Vol]0.6 mg/dLNormal0.3-1.0[facility] HospitalComment on above:Performed By: #### T4F, JER, CMP, TSH3 #### [facility] [address] #### ACTH #### [facility] ,CBC W Auto Differential panel (Bld)on 31-14-0098Gcqzmafuo (Bld) [#/Vol]0.1 10*3/uL0.0 - 0.2 10*3/uLNOMS HealthcareBasophils/100 WBC Manual cnt (Syn fld)1.4 %.[facility] HealthcareEosinophils (Bld) [#/Vol]0.5 10*3/uLHigh0.0 - 0.45 10*3/uLNOMS HealthcareEosinophils/100 WBC Manual cnt (Syn fld)6.1 %.[facility] Erythrocyte distribution width (RBC) [Ratio]13.3 %11.9 - 15.3 %[facility] Hematocrit (Bld) [Volume fraction]36.5 %34.0 - 46.4 %[facility] HospitalHemoglobin (Bld) [Mass/Vol]12.2 g/dL11.8 - 15.4 g/dLHEBER VALLEY MEDICAL [facility]ENTER HealthcareInterpretation and review of laboratory resultsAbnormalHEBER VALLEY MEDICAL [facility]ENTER HealthcareLymphocytes (Bld) [#/Vol]1.1 10*3/uL1.00 - 4.8 10*3/uLNOMS HealthcareLymphocytes/100 WBC Manual cnt (Syn fld) 12.5 %.[facility] HospitalH (RBC) [Entitic mass]29.6 pg24.7 - 34.3 pgLee's Summit HospitalHC (RBC) [Mass/Vol]33.4 g/dL32.0 - 35.0 g/dLLee's Summit HospitalV (RBC) [Entitic vol]88.8 fL80 - 100 fLNOMS [...] [Mass/volume] in Serum or PlasmaOrdered By: Aries Chaevz on 46-11-4524Epylhpj [Mass/Vol]9.1 mg/dLNormal8.6-10.3 [facility] HospitalComment on above:Performed By: #### T4F, JER, CMP, TSH3 #### [facility] [address] [place], [place] [id number] [place] #### ACTH #### [facility] ,Carbon dioxide, total [Moles/volume] in Serum or PlasmaOrdered By: Aries Chavez on 35-25-5474VX3 [Moles/Vol]29.4 mmol/EFtdklc57.0-31.0[facility] HospitalComment on above:Performed By: #### T4F, JER, CMP, TSH3 #### [facility] [address] [place] [address] [place] #### ACTH #### [facility] ,Chloride [Moles/volume] in Serum or PlasmaOrdered By: Aries Chavez on 69-03-8860Hbogkmjh [Moles/Vol]94 mmol/ZGrn13-358RvcrkswusHocking Valley Community HospitalComment on above:Performed By: #### T4F, JER, CMP, TSH3 #### [facility] [address] [place] [address] [place] #### ACTH #### [facility] ,Complete Blood Count Auto Diffon 27-60-7622Zojm Corpuscular HGB Conc33.4 g/dL Olthea34.0-35.0The [facility] Physician GroupComment on above:Performed By: #### T4F, TSH3, JER, CMP #### [facility] [address] [place] [address] #### ACTH #### [facility] ,NRBC%0.0 /100{WBC}Normal0-0.5The [facility] Physician Laird HospitalComment on above: Performed By: #### T4F, TSH3, JER, CMP #### [facility] [address] [place] [address] [place] #### ACTH #### [facility] ,Comprehensive Metabolic Panelon 51-97-1260Yzeinsw [Mass/Vol]3.7 g/dLNormal 3.5-5.7The [facility] Physician GroupComment on above:Performed By: #### T4F, JER, CMP, TSH3 #### [facility] [address] [place] [address] [place] #### ACTH #### [facility] ,Creatinine Clr Calc Udujqgon56.15NormalThe [facility] Physician GroupComment on above:Performed By: #### T4F, JER, CMP, TSH3 #### [facility] [address] [place] [address] [place] #### ACTH #### [facility] ,GFR/1.73 sq M.predicted MDRD (S/P/Bld) [Vol rate/Area]mL/min/{1.73_m2}NormalThe [facility] Physician GroupComment on above:Performed By: #### T4F, JER, CMP, TSH3 #### [place] [address] [place] #### ACTH #### [facility] ,Cortisolon 74-48-0453Awzhkvpn95.8 ug/dLNormalThe [facility] Physician Group Comment on above:Result Comment: Reference range: AM 6 - 24 ug/dl PM <10 ug/dl [facility] Laboratory mdm sr and method: AMRITA UNICEL DXI, POLYCLONAL ANTIBODY CORTISOL ASSAY. PERFORMED BY: [place] [address] PATHOLOGIST ELECTRICAL SYSTEMS DESIGN ENGINEER STEFANO HOLT M.D.Performed By: #### CBC, CMP #### [place] [address] USACreatinine [Mass/volume] in Serum or PlasmaOrdered By: Aries Chavez on 67-24-9455Suovlftrxp [Mass/Vol]0.83 mg/dLNormal0.60-1.20 [facility] HospitalComment on above:Performed By: #### T4F, JER, CMP, TSH3 #### [address] #### ACTH #### [facility] ,Erythrocyte distribution width [Ratio] by Automated countOrdered By: Aries Chavez on 32-63-7995Tbvffsyhaik distribution width (RBC) [Ratio]13.3 %Normal 11.9-15.3FMercy Health St. Elizabeth Boardman HospitalComment on above:Performed By: #### T4F, TSH3, JER, CMP #### [place] [address] [place] #### ACTH #### [facility] ,Erythrocytes [#/volume] in Blood by Automated countOrdered By: Aries Chavez on 11-67-2267CCJ (Bld) [#/Vol]4.11 10*6/uLNormal3.60-5.00[facility] HospitalComment on above:Performed By: #### T4F, TSH3, JER, CMP #### [place] [address] [place] #### ACTH #### [facility] ,Glucose [Mass/volume] in Serum or PlasmaOrdered By: Aries Chavez on 93-42-9785Czjnbgx [Mass/Vol]93 mg/tSTpdvsk53-308EunajkjduHocking Valley Community HospitalComment on above:ADA recommended reference rangeRandom Glucose Reference [...] By: #### T4F, JER, CMP, TSH3 #### [place] [address] [place] #### ACTH #### [facility] ,Hematocrit [Volume Fraction] of Blood by Automated countOrdered By: Aries Chavez on 55-08-9775Qfrzdlmeiu (Bld) [Volume fraction]36.5 %Uhcdyc30.0-46.4 [facility] HospitalComment on above:Performed By: #### T4F, TSH3, JER, CMP #### [place] [address] [place] #### ACTH #### [facility] ,Hemoglobin [Mass/volume] in BloodOrdered By: Aries Chavez on 06-18-2024 Hemoglobin (Bld) [Mass/Vol]12.2 g/fJIpkjpf98.8-15.4FMercy Health St. Elizabeth Boardman HospitalComment on above:Performed By: #### T4F, TSH3, JER, CMP #### [place] [address] [place] #### ACTH #### [facility] ,Leukocytes [#/volume] corrected for nucleated erythrocytes in Blood by Automated counOrdered By: Aries Chavez on 59-52-9313GRT corrected for nucl RBC Auto (Bld) [#/Vol]8.4 10*3/uL3.8-11.6FMercy Health St. [facility] Leukocytes [#/volume] in Blood by Automated countOrdered By: Aries Chavez on 05-65-0357SIS (Bld) [#/Vol]8.4 10*3/uLNormal3.8-11.6FMercy Health St. Elizabeth Boardman HospitalComment on above:Performed By: #### T4F, TSH3, JER, CMP #### [facility] [address] [place] [address] [place] #### ACTH #### [facility] ,Lymphocytes [#/volume] in Blood by Automated countOrdered By: Aries Chavez on 76-98-9232Raprhbeacli (Bld) [#/Vol]1.1 10*3/uLNormal1.00-4.8[facility] HospitalComment on above:Performed By: #### T4F, TSH3, JER, CMP #### [facility] [address] [place] [address] [place] #### ACTH #### [facility] ,Lymphocytes/100 leukocytes in Blood by Automated countOrdered By: Aries Chavez on 87-97-7690Tkvmfmzzvwd/100 WBC (Bld)12.5 %Normal.[facility] HospitalComment on above:Performed By: #### T4F, TSH3, JER, CMP #### [facility] [address] [place] [address] [place] #### ACTH #### [facility] ,MCH [Entitic mass] by Automated countOrdered By: Aries Chavez on 39-24-1721UIO (RBC) [Entitic mass]29.6 lfBbppem62.7-34.3Fire[facility] Medical CenterComment on above:Performed By: #### T4F, TSH3, JER, CMP #### [facility] [address] [place] [address] [place] #### ACTH #### [facility] ,MCHC Auto (RBC) [Mass/Vol]Ordered By: Aries Chavez on 27-08-9722RXOI (RBC) [Mass/Vol]33.4 g/dL32.0-35.0[facility] HospitalMCV [Entitic volume] by Automated countOrdered By: Aries Chavez on 79-41-9386NUU (RBC) [Entitic vol]88.8 tDGxlefo30-745XmbnjwubxHocking Valley Community HospitalComment on above:Performed By: #### T4F, TSH3, JER, CMP #### [facility] [address] [place] [address] [place] #### ACTH #### [facility] ,Neutrophils [#/volume] in Blood by Automated countOrdered By: Aries Chavez on 49-57-4939Imqyomwzcfi (Bld) [#/Vol]6.0 10*3/uLNormal1.8-7.7FMercy Health St. Elizabeth Boardman HospitalComment on above:Performed By: #### T4F, TSH3, JER, CMP #### [facility] [address] [place] [address] [place] #### ACTH #### [facility] ,No Panel InformationOrdered By: Aries Chavez on 06-18-2024 Adrenocorticotropic Nunhxaj02.6 pg/mL7.2-63.3FMercy Health St. [facility] Comment on above:ACTH reference interval for samples collected between 7 and10 AM.Performed at: [facility] [address] [id number] Director: Juan Hendricks PhD, Phone: [phone] GFR (CKD-EPI)> 60.0 mL/MinHocking Valley Community HospitalPharmacy Creatinine Clearance (Chem67.15 [facility] HospitalNucleated erythrocytes [Presence] in Blood by Automated countOrdered By: Aries Chavez on 82-08-9552Tvwfoxtwh RBC Auto Ql (Bld)0.0 /100{WBC}0-0.5FMercy Health St. Elizabeth Boardman HospitalPlatelet mean volume [Entitic volume] in Blood by Automated countOrdered By: Aries Chavez on 62-65-0009Xyxgtvfp mean volume (Bld) [Entitic vol]7.1 fLNormal6.3-10.7FMercy Health St. Elizabeth Boardman HospitalComment on above:Performed By: #### T4F, TSH3, JER, CMP #### [facility] [address] [place] [address] [place] #### ACTH #### [facility] ,Platelets [#/volume] in Blood by Automated countOrdered By: Aries Chavez on 39-30-6202Ncgtymfwv (Bld) [#/Vol]342 10*3/oSIawnpe128-600AdwjziztlHocking Valley Community HospitalComment on above:Performed By: #### T4F, TSH3, JER, CMP #### [facility] [address] [place] [address] [place] #### ACTH #### [facility] ,Potassium [Moles/volume] in Serum or PlasmaOrdered By: Aries Chavez on 19-14-9195Uvnpofdes [Moles/Vol]5.0 mmol/LNormal3.5-5.1FMercy Health St. Elizabeth Boardman HospitalComment on above:Performed By: #### T4F, JER, CMP, TSH3 #### [facility] [address] [place] [address] [place] #### ACTH #### [facility] ,Protein [Mass/volume] in Serum or PlasmaOrdered By: Aries Chavez on 23-07-0056Vwpdnlm [Mass/Vol]6.9 g/dLNormal6.4-8.9[facility] HospitalComment on above:Performed By: #### T4F, JER, CMP, TSH3 #### [facility] [address] [place] [address] [place] #### ACTH #### [facility] ,Random cortisol measurementOrdered By: Aries Chavez on 98-88-8496Ljjwzcuc [Mass/Vol]18.8 ug/dLHocking Valley Community HospitalComment on above:[facility] Laboratory mdm sr and method:AMRITA UNICEL DXI, POLYCLONAL ANTIBODY CORTISOL ASSAY.Reference range: AM 6 - 24 ug/dl PM <10 ug/dlSerum globulin measurement by calculation (mass/volume)Ordered By: Aries Chavez on 25-90-9890Zcqstlid (S) [Mass/Vol]3.2 g/dLNormalHocking Valley Community Hospital Comment on above:Performed By: #### T4F, JER, CMP, TSH3 #### [facility] [address] [place] [address] #### ACTH #### [facility] ,Serum or plasma albumin/globulin mass ratioOrdered By: Aries Chavez on 53-94-0156Bvpjalp/Globulin [Mass ratio]1.2 {ratio}NormalHocking Valley Community HospitalComment on above:Performed By: #### T4F, JRE, CMP, TSH3 #### [facility] [address] [place] [address] #### ACTH #### [facility] ,Serum or plasma anion gap determinationOrdered By: Aries Chavez on 45-36-3390Pdaln gap [Moles/Vol]7.6 mmol/LNormal6.0-15.0[facility] HospitalComment on above:Performed By: #### T4F, JER, CMP, TSH3 #### [facility] [address] [place] [address] [place] #### ACTH #### [facility] ,Sodium [Moles/volume] in Serum or PlasmaOrdered By: Aries Chavez on 45-89-2726Woetdn [Moles/Vol]126 mmol/CFjl557-054BmvjvbbiuHocking Valley Community HospitalComment on above:Performed By: #### T4F, JER, CMP, TSH3 #### [facility] [address] [place] [address] [place] #### ACTH #### [facility] ,Thyrotropin [Units/volume] in Serum or PlasmaOrdered By: Aries Chavez on 19-45-3702JSA Qn24.20 m[IU]/LHigh0.45-5.33[facility] Comment on above:Performed By: #### CBC, CMP #### [facility] [address] [place] [address] USAThyroxine (T4) free [Mass/volume] in Serum or Plasma Ordered By: Aries Chavez on 44-96-5277Qfrs T4 [Mass/Vol]1.05 ng/dLNormal 0.61-1.12[facility] HospitalComment on above:Performed By: #### T4F, JER, CMP, TSH3 #### [facility] [address] [place] [address] #### ACTH #### [facility] ,Urea nitrogen [Mass/volume] in Serum or PlasmaOrdered By: Aries Chavez on 82-40-1670Twef nitrogen [Mass/Vol]9 mg/dLNormal7-[facility] HospitalComment on above:Performed By: #### T4F, JER, CMP, TSH3 #### [facility] [address] [place] [address] [place] #### ACTH #### [facility] ,No Panel InformationOrdered By: Elayne James on 82-77-2081JVJBB Antigen (POC) [facility] HospitalCOVID Antigen (POC)[facility] HospitalAdrenocorticotropic Hormone PLon 04-02-0732Zuneqmnfobzbgpubkjp Hormone PL 38.4 pg/mLNormal7.2-63.3The [facility] Physician GroupComment on above:Result Comment: ACTH reference interval for samples collected between 7 and 10 AM. Performed at: [address] [id number] [employer] Consultant: Juan Hendricks PhD, Phone: [phone] PERFORMED BY: [address] [place] [address] PATHOLOGIST ELECTRICAL SYSTEMS DESIGN ENGINEER STEFANO HOLT M.D.Performed By: #### T4F, TSH3, JER, CMP #### [facility] [address] [place] [address] [place] #### ACTH #### [facility] ,Alanine aminotransferase [Enzymatic activity/volume] in Serum or PlasmaOrdered By: Aries Chavez on 89-78-4204COW [Catalytic activity/Vol]13 U/LNormal7-52 [facility] HospitalComment on above:Performed By: #### T4F, TSH3, JER, CMP #### [facility] [address] [place] [address] [place] #### ACTH #### [facility] ,Albumin [Mass/volume] in Serum or Plasma by Bromocresol green (BCG) dye binding methoOrdered By: Aries Chavez on 21-63-6198Miziopg BCG dye [Mass/Vol]3.8 g/dL3.5-5.7FMercy Health St. Elizabeth Boardman HospitalAlkaline phosphatase [Enzymatic activity/volume] in Serum or PlasmaOrdered By: Aries Chavez on 05-07-2024 ALP [Catalytic activity/Vol]74 U/TLyyqsn15-055ArwzpgfglHocking Valley Community Hospital Comment on above:Performed By: #### T4F, TSH3, JER, CMP #### [facility] [address] [place] [address] [place] #### ACTH #### [facility] ,Aspartate aminotransferase [Enzymatic activity/volume] in Serum or Plasma Ordered By: Aries Chavez on 15-40-1895SBW [Catalytic activity/Vol]20 U/L Rrgilc95-36DmkroyabpHocking Valley Community HospitalComment on above:Performed By: #### T4F, TSH3, JER, CMP #### [facility] [address] [place] [address] [place] #### ACTH #### [facility] ,Automated basophil %Ordered By: Aries Chavez on 81-69-9860Ugcnokfze/100 WBC (Bld)2.9 %Normal.[facility] HospitalComment on above:Performed By: #### T4F, TSH3, JER, CMP #### [facility] [address] [place] [address] [place] #### ACTH #### [facility] ,Automated basophil countOrdered By: Aries Chavez on 47-70-1377Qudesjwww (Bld) [#/Vol]0.2 10*3/uLNormal0.0-0.2FMercy Health St. Elizabeth Boardman HospitalComment on above:Result Comment: PERFORMED BY: [place] [address] PATHOLOGIST ELECTRICAL SYSTEMS DESIGN ENGINEER STEFANO HOLT M.D.Performed By: #### T4F, TSH3, JER, CMP #### [address] #### ACTH #### [facility] ,Automated blood monocyte countOrdered By: Aries Chavez on 05-07-2024 Monocytes (Bld) [#/Vol]0.8 10*3/uLNormal0.0-0.8[facility] Comment on above:Performed By: #### T4F, TSH3, JER, CMP #### [place] [address] [place] #### ACTH #### [facility] ,Automated eosinophil %Ordered By: Aries Chavez on 05-07-2024 Eosinophils/100 WBC (Bld)8.7 %Normal.[facility] HospitalComment on above:Performed By: #### T4F, TSH3, JER, CMP #### [facility] [address] [place] [address] [place] #### ACTH #### [facility] ,Automated eosinophil countOrdered By: Aries Chavez on 05-07-2024 Eosinophils (Bld) [#/Vol]0.6 10*3/uLHigh0.0-0.45[facility] HospitalComment on above:Performed By: #### T4F, TSH3, JER, CMP #### [facility] [address] [place] [address] [place] #### ACTH #### [facility] ,Automated monocyte %Ordered By: Aries Chavez on 13-79-9648Xiasnnoiw/100 WBC (Bld)11.6 %Normal.[facility] HospitalComment on above: Performed By: #### T4F, TSH3, JER, CMP #### [facility] [address] [place] [address] [place] #### ACTH #### [facility] ,Automated neutrophil %Ordered By: Aries Chavez on 05-07-2024 Neutrophils/100 WBC (Bld)59.0 %Normal.[facility] HospitalComment on above:Performed By: #### T4F, TSH3, JER, CMP #### [facility] [address] [place] [address] [place] #### ACTH #### [facility] ,Bilirubin.direct [Mass/volume] in Serum or PlasmaOrdered By: Aries Chavez on 48-41-9353Txlcspupv.direct [Mass/Vol]0.10 mg/dL0.03-0.18FMercy Health St. [facility] HospitalBilirubin.direct [Mass/Vol]Bilirubin.direct [Mass/volume] in Serum or Plasma0.03-0.18FMercy Health St. Elizabeth Boardman HospitalBilirubin.total [Mass/volume] in Serum or PlasmaOrdered By: Aries Chavez on 05-07-2024 Bilirubin [Mass/Vol]0.6 mg/dLNormal0.3-1.0[facility] Hospital Comment on above:Performed By: #### T4F, TSH3, JER, CMP #### [facility] [address] [place] [address] [place] #### ACTH #### [facility] ,Calcium [Mass/volume] in Serum or PlasmaOrdered By: Aries Chavez on 77-94-3417Waslswq [Mass/Vol]8.9 mg/dLNormal8.6-10.3FMercy Health St. Elizabeth Boardman HospitalComment on above:Performed By: #### T4F, TSH3, JER, CMP #### [facility] [address] [place] [address] [place] #### ACTH #### [facility] ,Carbon dioxide, total [Moles/volume] in Serum or PlasmaOrdered By: Aries Chavez on 33-11-9990HI9 [Moles/Vol]29.3 mmol/PRnwcgk54.0-31.0[facility] HospitalComment on above:Performed By: #### T4F, TSH3, JER, CMP #### [facility] [address] [place] [address] [place] #### ACTH #### [facility] ,Chloride [Moles/volume] in Serum or PlasmaOrdered By: Aries Chavez on 83-61-8226Eecbrddw [Moles/Vol]96 mmol/TVed37-105NppjxrkvzHocking Valley Community HospitalComment on above:Performed By: #### T4F, TSH3, JER, CMP #### [facility] [address] [place] [address] [place] #### ACTH #### [facility] ,Complete Blood Count Auto Diffon 56-43-0212Qzcf Corpuscular HGB Conc32.9 g/dL Pmygwb26.0-35.0The [facility] Physician GroupComment on above:Performed By: #### T4F, TSH3, JER, CMP #### [facility] [address] [place] [address] [place] #### ACTH #### [facility] ,NRBC%0.0 /100{WBC}Normal0-0.5The [facility] Physician GroupComment on above: Performed By: #### T4F, TSH3, JER, CMP #### [facility] [address] [place] [address] [place] #### ACTH #### [facility] ,Comprehensive Metabolic Panelon 10-64-5155Weywval [Mass/Vol]3.8 g/dLNormal 3.5-5.7The [facility] Physician GroupComment on above:Performed By: #### T4F, TSH3, JER, CMP #### [address] #### ACTH #### [facility] ,Creatinine Clr Calc Gxhclwhn44.46NormPalm Springs General Hospital Physician Laird HospitalComment on above:Performed By: #### T4F, TSH3, JER, CMP #### [address] #### ACTH #### [facility] ,GFR/1.73 sq M.predicted MDRD (S/P/Bld) [Vol rate/Area]mL/min/{1.73_m2}NormalThe [facility] Physician Laird HospitalComment on above:Performed By: #### T4F, TSH3, JER, CMP #### [address] #### ACTH #### [facility] ,Cortisolon 52-07-4075Vfpljzbm96.4 ug/dLH[facility] Comment on above:Result Comment: Reference range: AM 6 - 24 ug/dl PM <10 ug/dl [facility] Laboratory mdm sr and method: AMRITA UNICEL DXI, POLYCLONAL ANTIBODY CORTISOL ASSAY. PERFORMED BY: [place] [address] PATHOLOGIST ELECTRICAL SYSTEMS DESIGN ENGINEER STEFANO HOLT M.D.Performed By: #### T4F, TSH3, JER, CMP #### [address] #### ACTH #### [facility] ,Creatinine [Mass/volume] in Serum or PlasmaOrdered By: Aries Chavez on 96-75-4443Gvasxlgvzg [Mass/Vol]0.93 mg/dLNormal0.60-1.20[facility] HospitalComment on above:Performed By: #### T4F, TSH3, JER, CMP #### [facility] [address] [place] [address] [place] #### ACTH #### [facility] ,Erythrocyte distribution width [Ratio] by Automated countOrdered By: Aries Chavez on 29-09-9653Bpdkivsnkcy distribution width (RBC) [Ratio]13.3 %Normal 11.9-15.3FMercy Health St. Elizabeth Boardman HospitalComment on above:Performed By: #### T4F, TSH3, JER, CMP #### [facility] [address] [place] [address] [place] #### ACTH #### [facility] ,Erythrocytes [#/volume] in Blood by Automated countOrdered By: Aries Chavez on 25-73-2205QCG (Bld) [#/Vol]3.94 10*6/uLNormal3.60-5.00[facility] Community HospitalComment on above:Performed By: #### T4F, TSH3, JER, CMP #### [place] [address] [place] #### ACTH #### [facility] ,Glucose [Mass/volume] in Serum or PlasmaOrdered By: Aries Chavez on 21-93-2275Khimdmo [Mass/Vol]92 mg/iYRpoblv00-476YnqfyhlptHocking Valley Community HospitalComment on above:ADA recommended reference rangeRandom Glucose Reference [...] By: #### T4F, TSH3, JER, CMP #### [place] [address] [place] #### ACTH #### [facility] ,Hematocrit [Volume Fraction] of Blood by Automated countOrdered By: Aries Chavez on 11-11-8031Mqvugndzuy (Bld) [Volume fraction]35.8 %Dhiiyt84.0-46.4 [facility] HospitalComment on above:Performed By: #### T4F, TSH3, JER, CMP #### [facility] [address] [place] [address] [place] #### ACTH #### [facility] ,Hemoglobin [Mass/volume] in BloodOrdered By: Aries Chavez on 05-07-2024 Hemoglobin (Bld) [Mass/Vol]11.8 g/yUSowcxb24.8-15.4FMercy Health St. Elizabeth Boardman HospitalComment on above:Performed By: #### T4F, TSH3, JER, CMP #### [facility] [address] [place] [address] [place] #### ACTH #### [facility] ,Hepatic Panelon 75-16-4651Hommiytno,Indirect0.5 mg/dLNormalThe [facility] Physician GroupComment on above:Performed By: #### T4F, TSH3, JER, CMP #### [facility] [address] [place] [address] [place] #### ACTH #### [facility] ,Bilirubin.indirect [Mass/Vol]0.10 mg/dLNormal0.03-0.18The [facility] Physician Laird HospitalComment on above:Performed By: #### T4F, TSH3, JER, CMP #### [facility] [address] [place] [address] [place] #### ACTH #### [facility] ,Leukocytes [#/volume] corrected for nucleated erythrocytes in Blood by Automated counOrdered By: Aries Chavez on 17-92-2836YBE corrected for nucl RBC Auto (Bld) [#/Vol]6.8 10*3/uL3.8-11.6FMercy Health St. [facility] Hospital Leukocytes [#/volume] in Blood by Automated countOrdered By: Aries Chavez on 45-99-6172BPD (Bld) [#/Vol]6.8 10*3/uLNormal3.8-11.6FMercy Health St. Elizabeth Boardman HospitalComment on above:Performed By: #### T4F, TSH3, JER, CMP #### [facility] [address] [place] [address] [place] #### ACTH #### [facility] ,Lymphocytes [#/volume] in Blood by Automated countOrdered By: Aries Chavez on 48-02-9115Ddmbvkpkbfc (Bld) [#/Vol]1.2 10*3/uLNormal1.00-4.8[facility] HospitalComment on above:Performed By: #### T4F, TSH3, JER, CMP #### [facility] [address] [place] [address] [place] #### ACTH #### [facility] ,Lymphocytes/100 leukocytes in Blood by Automated countOrdered By: Aries Chavez on 30-27-9170Cervqdxquuo/100 WBC (Bld)17.8 %Normal.[facility] HospitalComment on above:Performed By: #### T4F, TSH3, JER, CMP #### [facility] [address] [place] [address] [place] #### ACTH #### [facility] ,MCH [Entitic mass] by Automated countOrdered By: Aries Chavez on 88-72-7308HXN (RBC) [Entitic mass]29.9 ofRqizbx35.7-34.3FMercy Health St. Elizabeth Boardman HospitalComment on above:Performed By: #### T4F, TSH3, JER, CMP #### [facility] [address] [place] [address] [place] #### ACTH #### [facility] ,MCHC Auto (RBC) [Mass/Vol]Ordered By: Aries Chavez on 88-91-9333QJWC (RBC) [Mass/Vol]32.9 g/dL32.0-35.0H[facility] HospitalMCV [Entitic volume] by Automated countOrdered By: Aries Chavez on 80-87-8392KRB (RBC) [Entitic vol]90.9 yZRvkhpa65-083YlubzweinHocking Valley Community HospitalComment on above:Performed By: #### T4F, TSH3, JER, CMP #### [address] #### ACTH #### [facility] ,Neutrophils [#/volume] in Blood by Automated countOrdered By: Aries Chavez on 46-59-9755Jiawyxxzaug (Bld) [#/Vol]4.0 10*3/uLNormal1.8-7.7FMercy Health St. Elizabeth Boardman HospitalComment on above:Performed By: #### T4F, TSH3, JER, CMP #### [address] #### ACTH #### [facility] ,No Panel InformationOrdered By: Aries Chavez on 05-07-2024 Adrenocorticotropic Bxaamwq92.4 pg/mL7.2-63.3FMercy Health St. [facility] Hospital Comment on above:ACTH reference interval for samples collected between 7 and10 AM.Performed at: [facility] [address] Director: Juan Hendricks PhD, Phone: [phone] GFR (CKD-EPI)> 60.0 mL/MinHocking Valley Community HospitalPharmacy Creatinine Clearance (Chem58.46 [facility] Community HospitalNucleated erythrocytes [Presence] in Blood by Automated countOrdered By: Aries Chavez on 41-92-0491Lvjirvcfj RBC Auto Ql (Bld)0.0 /100{WBC}0-0.5FMercy Health St. Elizabeth Boardman HospitalPlatelet mean volume [Entitic volume] in Blood by Automated countOrdered By: Aries Chavez on 32-92-5085Xhriczda mean volume (Bld) [Entitic vol]8.2 fLNormal6.3-10.7FMercy Health St. Elizabeth Boardman HospitalComment on above:Performed By: #### T4F, TSH3, JER, CMP #### [place] [address] [place] #### ACTH #### [facility] ,Platelets [#/volume] in Blood by Automated countOrdered By: Aries Chavez on 75-85-3862Fciakgxwm (Bld) [#/Vol]225 10*3/eARvfjsv961-196WobsyesinHocking Valley Community HospitalComment on above:Performed By: #### T4F, TSH3, JER, CMP #### [facility] [address] [place] [address] [place] #### ACTH #### [facility] ,Potassium [Moles/volume] in Serum or PlasmaOrdered By: Aries Chavez on 85-57-2936Qbjqywegg [Moles/Vol]4.4 mmol/LNormal3.5-5.1FMercy Health St. Elizabeth Boardman HospitalComment on above:Performed By: #### T4F, TSH3, JER, CMP #### [facility] [address] [place] [address] [place] #### ACTH #### [facility] ,Protein [Mass/volume] in Serum or PlasmaOrdered By: Aries Chavez on 06-41-7026Fhsdrnp [Mass/Vol]6.8 g/dLNormal6.4-8.9[facility] HospitalComment on above:Performed By: #### T4F, TSH3, JER, CMP #### [facility] [address] [place] [address] [place] #### ACTH #### [facility] ,Random cortisol measurementOrdered By: Aries Chavez on 05-94-3943Iyvraqxe [Mass/Vol]14.4 ug/dLHocking Valley Community HospitalComment on above:[facility] Laboratory mdm sr and method:AMRITA MemriseEL DXI, POLYCLONAL ANTIBODY CORTISOL ASSAY.Reference range: AM 6 - 24 ug/dl PM <10 ug/dlSerum globulin measurement by calculation (mass/volume)Ordered By: Aries Chavez on 46-50-6681Tnvktfni (S) [Mass/Vol]3.0 g/dLNormalHocking Valley Community Hospital Comment on above:Performed By: #### T4F, TSH3, JER, CMP #### [facility] [address] [place] [address] [place] #### ACTH #### [facility] ,Serum or plasma albumin/globulin mass ratioOrdered By: Aries Chavez on 59-27-5831Zclagrv/Globulin [Mass ratio]1.3 {ratio}[facility] HospitalComment on above:Performed By: #### T4F, TSH3, JER, CMP #### [facility] [address] [place] [address] [place] #### ACTH #### [facility] ,Serum or plasma anion gap determinationOrdered By: Aries Chavez on 90-19-1324Ledsk gap [Moles/Vol]10.1 mmol/LNormal6.0-15.0[facility] HospitalComment on above:Performed By: #### T4F, TSH3, JER, CMP #### [facility] [address] [place] [address] [place] #### ACTH #### [facility] ,Serum or plasma non-glucuronidated bilirubin measurement (mass/volume)Ordered By: Aries Chavez on 65-39-7996Epcwbilbc.indirect [Mass/Vol]0.5 mg/dL [facility] HospitalBilirubin.indirect [Mass/Vol]Serum or plasma non-glucuronidated bilirubin measurement (mass/volume)[facility] Hospitalodium [Moles/volume] in Serum or PlasmaOrdered By: Aries Chavez on 38-12-0491Xivxyw [Moles/Vol]131 mmol/RLih322-501QoytkwnnyHocking Valley Community HospitalComment on above:Performed By: #### T4F, TSH3, JER, CMP #### [facility] [address] [place] [address] [place] #### ACTH #### [facility] ,Thyrotropin [Units/volume] in Serum or PlasmaOrdered By: Aries Chavez on 74-25-9720CCY Qn36.65 m[IU]/LHigh0.45-5.33[facility] Comment on above:Performed By: #### T4F, TSH3, JER, CMP #### [place] [address] [place] #### ACTH #### [facility] ,Thyroxine (T4) free [Mass/volume] in Serum or PlasmaOrdered By: Aries Chavez on 86-96-4869Kydj T4 [Mass/Vol]0.60 ng/dLLow0.61-1.12[facility] HospitalComment on above:Performed By: #### T4F, TSH3, JER, CMP #### [place] [address] [place] #### ACTH #### [facility] ,Urea nitrogen [Mass/volume] in Serum or PlasmaOrdered By: Aries Chavez on 86-27-5905Ufgr nitrogen [Mass/Vol]13 mg/dLNormal7-25[facility] HospitalComment on above:Performed By: #### T4F, TSH3, JER, CMP #### [place] [address] [place] #### ACTH #### [facility] ,Cortisolon 44-74-6556Nehkphua83.8 ug/dLNormalThe [facility] Comment on above:Result Comment: Reference range: AM 6 - 24 ug/dl PM <10 ug/dl [facility] mdm sr and method: [employer] DXI, POLYCLONAL ANTIBODY CORTISOL ASSAY. PERFORMED BY: [place] [address] PATHOLOGIST ELECTRICAL SYSTEMS DESIGN ENGINEER STEFANO HOLT M.D.Performed By: #### CBC, CMP #### [place] [address] USAFree T4 (Free Thyroxine)on 72-22-4331Udhi T4 [Mass/Vol] 0.84 ng/dLNormal0.61-1.12The [facility] Physician GroupComment on above:Performed By: #### CBC, CMP #### [facility] [address] [place] [address] USAThyroid Stimulating Hormoneon 18-09-0809PQM Qn20.08 m[IU]/LHigh0.45-5.33The [facility] Physician GroupComment on above:Performed By: #### CBC, CMP #### [facility] [address] [place] [address] USAAlanine aminotransferase [Enzymatic activity/volume] in Serum or PlasmaOrdered By: Aries Chavez on 81-20-8558QTY [Catalytic activity/Vol]17 U/LNormal7-52[facility] HospitalComment on above: Performed By: #### CBC, CMP #### [facility] [address] [place] [address] USAAlbumin [Mass/volume] in Serum or Plasma by Bromocresol green (BCG) dye binding methoOrdered By: Aries Chavez on 60-12-7138Ecjtmct BCG dye [Mass/Vol]3.9 g/dL3.5-5.7FMercy Health St. Elizabeth Boardman HospitalAlkaline phosphatase [Enzymatic activity/volume] in Serum or PlasmaOrdered By: Aries Chavez on 11-21-5938JOD [Catalytic activity/Vol]123 U/OVnkl31-366OybbssqdoHocking Valley Community HospitalComment on above:Performed By: #### CBC, CMP #### [place] [address] USAAspartate aminotransferase [Enzymatic activity/volume] in Serum or PlasmaOrdered By: Aries Chavez on 90-96-9570IYI [Catalytic activity/Vol]22 U/GAclfva11-58VivbrzardHocking Valley Community HospitalComment on above: Performed By: #### CBC, CMP #### [facility] [address] [place] [address] USAAutomated basophil %Ordered By: Aries Chavez on 32-94-1137Vtrjwvrsc/100 WBC (Bld)3.0 %Normal.[facility] Comment on above:Performed By: #### CBC, CMP #### [address] [address] USAAutomated basophil countOrdered By: Aries Chavez on 83-29-3910Trlparkxx (Bld) [#/Vol]0.2 10*3/uLNormal0.0-0.2FMercy Health St. Elizabeth Boardman HospitalComment on above:Result Comment: PERFORMED BY: [place] [address] PATHOLOGIST ELECTRICAL SYSTEMS DESIGN ENGINEER STEFANO HOLT M.D.Performed By: #### CBC, CMP #### [place] [address] USAAutomated blood monocyte countOrdered By: Aries Chavez on 32-18-7886Sxlvdtvkp (Bld) [#/Vol]0.7 10*3/uLNormal0.0-0.8[facility] HospitalComment on above:Performed By: #### CBC, CMP #### [facility] [address] [place] [address] USAAutomated eosinophil %Ordered By: Aries Chavez on 77-86-3420Vlmofkylyhj/100 WBC (Bld)11.6 %Normal.[facility] HospitalComment on above:Performed By: #### CBC, CMP #### [facility] [address] [place] [address] USAAutomated eosinophil countOrdered By: Aries Chavez on 86-62-8812Okhxaxmigdd (Bld) [#/Vol]0.7 10*3/uLHigh0.0-0.45[facility] HospitalComment on above:Performed By: #### CBC, CMP #### [facility] [address] [place] [address] USAAutomated monocyte %Ordered By: Aries Chavez on 04-01-8517Flaxwcuac/100 WBC (Bld)11.9 %Normal.[facility] Comment on above:Performed By: #### CBC, CMP #### [facility] [address] [place] [address] USAAutomated neutrophil %Ordered By: Aries Chavez on 18-31-9183Efjxzkdjdcn/100 WBC (Bld)50.5 %Normal.[facility] HospitalComment on above:Performed By: #### CBC, CMP #### [facility] [address] [place] [address] USABilirubin.total [Mass/volume] in Serum or PlasmaOrdered By: Aries Chavez on 08-45-5504Ffrdanxdk [Mass/Vol]0.6 mg/dLNormal0.3-1.0 [facility] HospitalComment on above:Performed By: #### CBC, CMP #### [place] [address] USACalcium [Mass/volume] in Serum or PlasmaOrdered By: Aries Chavez on 82-86-8307Manzrxo [Mass/Vol]9.3 mg/dLNormal8.6-10.3 [facility] HospitalComment on above:Performed By: #### CBC, CMP #### [place] [address] USACarbon dioxide, total [Moles/volume] in Serum or Plasma Ordered By: Aries Chavez on 05-57-9442ZM3 [Moles/Vol]30.3 mmol/LNormal 21.0-31.0[facility] HospitalComment on above:Performed By: #### CBC, CMP #### [place] [address] USAChloride [Moles/volume] in Serum or PlasmaOrdered By: Aries Chavez on 53-28-0617Ypwyfydw [Moles/Vol]96 mmol/JTlz80-994QhbyemvrkHocking Valley Community HospitalComment on above:Performed By: #### CBC, CMP #### [facility] [address] [place] [address] USAComplete Blood Count Auto Diffon 76-60-2371Zlmq Corpuscular HGB Conc33.3 g/cGTfxndq95.0-35.0The [facility] Physician GroupComment on above:Performed By: #### CBC, CMP #### [place] [address] USANRBC%0.1 /100{WBC}Normal0-0.5The [facility] Comment on above:Performed By: #### CBC, CMP #### [place] [address] USAComprehensive Metabolic Panelon 15-05-9787Ygnbphu [Mass/Vol]3.9 g/dLNormal3.5-5.7The [facility] Physician Laird HospitalComment on above: Performed By: #### CBC, CMP #### [place] [address] USACreatinine Clr Calc Yrjluxof07.20NormPalm Springs [facility] Hospital Physician Laird HospitalComment on above:Result Comment: PERFORMED BY: [place] [address] PATHOLOGIST ELECTRICAL SYSTEMS DESIGN ENGINEER STEFANO HOLT M.D.Performed By: #### CBC, CMP #### [place] [address] USAGFR/1.73 sq M.predicted MDRD (S/P/Bld) [Vol rate/Area] mL/min/{1.73_m2}NormalThe [facility] Physician Laird HospitalComment on above:Performed By: #### CBC, CMP #### [place] [address] USACreatinine [Mass/volume] in Serum or PlasmaOrdered By: Aries Chavez on 33-76-3607Jaroerfxxr [Mass/Vol]0.83 mg/dLNormal0.60-1.20 [facility] HospitalComment on above:Performed By: #### CBC, CMP #### [place] [address] USAErythrocyte distribution width [Ratio] by Automated count Ordered By: Aries Chavez on 36-40-6390Etfdawiopep distribution width (RBC) [Ratio]13.4 %Lwhlul08.9-15.3FMercy Health St. Elizabeth Boardman HospitalComment on above: Performed By: #### CBC, CMP #### [place] [address] USAErythrocytes [#/volume] in Blood by Automated countOrdered By: Aries Chavez on 96-16-8115WUL (Bld) [#/Vol]4.08 10*6/uLNormal3.60-5.00 [facility] HospitalComment on above:Performed By: #### CBC, CMP #### [place] [id number] USAGlucose [Mass/volume] in Serum or PlasmaOrdered By: Aries Chavez on 00-76-3786Hkelbcd [Mass/Vol]95 mg/dYDkfkfl02-292WujvlftznHocking Valley Community HospitalComment on above:ADA recommended reference rangeRandom Glucose Reference [...] reference rangePerformed By: #### CBC, CMP #### [place] [id number] USAHematocrit [Volume Fraction] of Blood by Automated count Ordered By: Aries Chavez on 20-65-7445Lkddvmnkqe (Bld) [Volume fraction] 36.6 %Fqlwdg20.0-46.4FMercy Health St. Elizabeth Boardman HospitalComment on above:Performed By: #### CBC, CMP #### [place] [id number] USAHemoglobin [Mass/volume] in BloodOrdered By: Aries Chavez on 86-03-7087Lnfzjkbznn (Bld) [Mass/Vol]12.2 g/pFCvmfka21.8-15.4 [facility] HospitalComment on above:Performed By: #### CBC, CMP #### [place] [id number] USALeukocytes [#/volume] corrected for nucleated erythrocytes in Blood by Automated counOrdered By: Aries Chavez on 10-29-2419PPM corrected for nucl RBC Auto (Bld) [#/Vol]5.8 10*3/uL3.8-11.6FMercy Health St. Elizabeth Boardman HospitalLeukocytes [#/volume] in Blood by Automated countOrdered By: Aries Chavez on 11-99-6883SMR (Bld) [#/Vol]5.8 10*3/uLNormal3.8-11.6 [facility] HospitalComment on above:Performed By: #### CBC, CMP #### [facility] [address] [place] [id number] USALymphocytes [#/volume] in Blood by Automated countOrdered By: Aries Chavez on 54-43-7672Zeojncvitws (Bld) [#/Vol]1.3 10*3/uLNormal 1.00-4.8[facility] HospitalComment on above:Performed By: #### CBC, CMP #### [place] [address] USALymphocytes/100 leukocytes in Blood by Automated count Ordered By: Aries Chavez on 19-89-1440Bjikwqnrnva/100 WBC (Bld)23.0 %Normal .[facility] HospitalComment on above:Performed By: #### CBC, CMP #### [facility] [address] [place], [place] [id number] [facility] [place] [place] [Entitic mass] by Automated countOrdered By: Aries Chavez on 92-49-6058WQR (RBC) [Entitic mass]29.9 zsTjaraq99.7-34.3FMercy Health St. Elizabeth Boardman HospitalComment on above:Performed By: #### CBC, CMP #### [address] Auto (RBC) [Mass/Vol]Ordered By: Aries Chavez on 32-95-9893DKQP (RBC) [Mass/Vol]33.3 g/dL32.0-35.0[facility] HospitalMCV [Entitic volume] by Automated countOrdered By: Aries Chavez on 09-08-8586BXR (RBC) [Entitic vol]89.7 nCWhvpnu02-757ScgfyakbjHocking Valley Community HospitalComment on above:Performed By: #### CBC, CMP #### [facility] [address] [place] [address] USANeutrophils [#/volume] in Blood by Automated countOrdered By: Aries Chavez on 48-07-6119Ovsginoyuus (Bld) [#/Vol]2.9 10*3/uLNormal 1.8-7.7FMercy Health St. Elizabeth Boardman HospitalComment on above:Performed By: #### CBC, CMP #### [facility] [address] [place] [address] USANo Panel InformationOrdered By: Aries Chavez on 10-26-3523Ogolabbff GFR (CKD-EPI)> 60.0 mL/MinHocking Valley Community Hospital Pharmacy Creatinine Clearance (Chem62.20[facility] Nucleated erythrocytes [Presence] in Blood by Automated countOrdered By: Aries Chavez on 45-29-7003Pqvayqfcj RBC Auto Ql (Bld)0.1 /100{WBC}0-0.5FMercy Health St. Elizabeth Boardman HospitalPlatelet mean volume [Entitic volume] in Blood by Automated countOrdered By: Aries Chavez on 36-38-0379Onfafhhq mean volume (Bld) [Entitic vol]8.8 fLNormal6.3-10.7FMercy Health St. Elizabeth Boardman HospitalComment on above:Performed By: #### CBC, CMP #### [facility] [address] [place] [address] USAPlatelets [#/volume] in Blood by Automated countOrdered By: Aries Chavez on 66-99-0806Kmsdugscq (Bld) [#/Vol]235 10*3/uLNormal 150-450[facility] HospitalComment on above:Performed By: #### CBC, CMP #### [facility] [address] [place] [address] USAPotassium [Moles/volume] in Serum or PlasmaOrdered By: Aries Chavez on 61-68-4044Frslcapwa [Moles/Vol]4.9 mmol/LNormal3.5-5.1 [facility] HospitalComment on above:Performed By: #### CBC, CMP #### [facility] [address] [place] [address] USAProtein [Mass/volume] in Serum or PlasmaOrdered By: Aries Chavez on 22-18-3234Rjzadfo [Mass/Vol]7.0 g/dLNormal6.4-8.9[facility] HospitalComment on above:Performed By: #### CBC, CMP #### [place] [address] USASerum globulin measurement by calculation (mass/volume) Ordered By: Aries Chavez on 69-19-5503Stczfxjw (S) [Mass/Vol]3.1 g/dLNormal [facility] HospitalComment on above:Performed By: #### CBC, CMP #### [place] [address] USASerum or plasma albumin/globulin mass ratioOrdered By: Aries Chavez on 07-82-3873Ihsiotp/Globulin [Mass ratio]1.3 {ratio}Normal [facility] HospitalComment on above:Performed By: #### CBC, CMP #### [place] [address] USASerum or plasma anion gap determinationOrdered By: Aries Chavez on 10-17-8958Nzcyw gap [Moles/Vol]9.6 mmol/LNormal6.0-15.0[facility] HospitalComment on above:Performed By: #### CBC, CMP #### [facility] [address] [place] [address] USASodium [Moles/volume] in Serum or PlasmaOrdered By: Aries Chavez on 70-44-7222Ndojqm [Moles/Vol]131 mmol/SLzd190-568UpdqymkagHocking Valley Community HospitalComment on above:Performed By: #### CBC, CMP #### [facility] [address] [place] [address] USAUrea nitrogen [Mass/volume] in Serum or PlasmaOrdered By: Aries Chavez on 13-44-0821Qsno nitrogen [Mass/Vol]20 mg/dLNormal7-25 [facility] HospitalComment on above:Performed By: #### CBC, CMP #### [facility] [address] [place] [address] USACT abdomen pelvis w conon 44-75-2839ZC abdomen pelvis w [facility] [address] [place] [address] CT Scan Report Signed Patient: Perla Ibarra MR#: [id number] : 1955 Acct:[id number] Age/Sex: 68 / F ADM Date: 03/14/24 Loc: Room: Type: [facility] RCR Attending Dr: Aries Chavez II DO Copies to: Aries Chavez II, DO Ordering Provider: Aries Chavez II, DO Date of Service: 03/14/24 CT/CT abdomen pelvis w con: C64.1 - Malignant neoplasm of right kidney, except renal ... ([id number]) CT/CT chest w con: C64.1 - Malignant [...] Shelley Jr., D.O.03/14/2024 3:47 PM Dictation Location: [place] [address] Transcribed By: [facility] 03/14/24 1547 Dictated By: Junior Shelley Jr, DO 03/14/24 1528 Signed By: 03/14/24 1547NormPalm Springs General Hospital Physician GroupComplete Blood Count Auto Diffon 60-19-9966Iivwzwrnl (Bld) [#/Vol]0.2 10*3/uLNormal0.0-0.2The [facility] Physician GroupComment on above:Result Comment: PERFORMED BY: [address] [place] [address] PATHOLOGIST ELECTRICAL SYSTEMS DESIGN ENGINEER STEFANO HOLT M.D.Performed By: #### CBC, CMP #### [facility] [address] [place] [address] USABasophils/100 WBC (Bld)2.9 %Normal.The [facility] Physician GroupComment on above:Performed By: #### CBC, CMP #### [facility] [address] [place] [address] USAEosinophils (Bld) [#/Vol]0.7 10*3/uLHigh0.0-0.45The [facility] Physician GroupComment on above:Performed By: #### CBC, CMP #### [place] [id number] USAEosinophils/100 WBC (Bld)10.7 %Normal.The [facility] Physician GroupComment on above:Performed By: #### CBC, CMP #### [place] [address] USAErythrocyte distribution width (RBC) [Ratio]13.8 %Normal 11.9-15.3The [facility] Physician GroupComment on above:Performed By: #### CBC, CMP #### [place] [address] USAHematocrit (Bld) [Volume fraction]36.2 %Vglrar38.0-46.4The [facility] Physician GroupComment on above:Performed By: #### CBC, CMP #### [place] [address] USAHemoglobin (Bld) [Mass/Vol]12.3 g/iEHjagtj14.8-15.4The [facility] Physician GroupComment on above:Performed By: #### CBC, CMP #### [place] [id number] USALymphocytes (Bld) [#/Vol]1.4 10*3/uLNormal1.00-4.8The [facility] Physician GroupComment on above:Performed By: #### CBC, CMP #### [address] [address] USALymphocytes/100 WBC (Bld)22.2 %Normal.The [facility] Physician GroupComment on above:Performed By: #### CBC, CMP #### [facility] [address] [place] [address] USAH (RBC) [Entitic mass]30.2 hcWdrpkf81.7-34.3The [facility] Physician GroupComment on above:Performed By: #### CBC, CMP #### [facility] [address] [place] [address] USAMCV (RBC) [Entitic vol]89.0 sIIwxrpm25-574Lwc [facility] Physician GroupComment on above:Performed By: #### CBC, CMP #### [facility] [address] [place] [address] USAMean Corpuscular HGB Conc34.0 g/eBIclydw98.0-35.0The [facility] Physician GroupComment on above:Performed By: #### CBC, CMP #### [place] [address] USAMonocytes (Bld) [#/Vol]0.7 10*3/uLNormal0.0-0.8The [facility] Physician GroupComment on above:Performed By: #### CBC, CMP #### [place] [address] USAMonocytes/100 WBC (Bld)10.7 %Normal.The [facility] Physician GroupComment on above:Performed By: #### CBC, CMP #### [place] [address] USANeutrophils (Bld) [#/Vol]3.5 10*3/uLNormal1.8-7.7The [facility] Physician GroupComment on above:Performed By: #### CBC, CMP #### [place] [address] USANeutrophils/100 WBC (Bld)53.5 %Normal.The [facility] Physician GroupComment on above:Performed By: #### CBC, CMP #### [place] [address] USANRBC%0.0 /100{WBC}Normal0-0.5The [facility] Physician Group Comment on above:Performed By: #### CBC, CMP #### [facility] [address] [place] [address] USAPlatelet mean volume (Bld) [Entitic vol]7.9 fLNormal 6.3-10.7The [facility] Physician GroupComment on above:Performed By: #### CBC, CMP #### [facility] [address] [place] [address] USAPlatelets (Bld) [#/Vol]258 10*3/lIGiijun190-569Nda [facility] Physician GroupComment on above:Performed By: #### CBC, CMP #### [place] [address] USARBC (Bld) [#/Vol]4.07 10*6/uLNormal3.60-5.00The [facility] Physician GroupComment on above:Performed By: #### CBC, CMP #### [place] [address] USAWBC (Bld) [#/Vol]6.5 10*3/uLNormal3.8-11.6The [facility] Physician GroupComment on above:Performed By: #### CBC, CMP #### [place] [address] USAComprehensive Metabolic Panelon 23-79-4618Cyecnen [Mass/Vol]4.0 g/dLNormal3.5-5.7The [facility] Physician GroupComment on above: Order Comment: STAT BUN/CREAT FOR CTPerformed By: #### CBC, CMP #### [place] [address] USAAlbumin/Globulin [Mass ratio]1.1 {ratio}NormalThe [facility] Physician GroupComment on above:Order Comment: STAT BUN/CREAT FOR CT Performed By: #### CBC, CMP #### [place] [address] USAALP [Catalytic activity/Vol]181 U/MMucj07-088Hax [facility] Physician GroupComment on above:Order Comment: STAT BUN/CREAT FOR CTPerformed By: #### CBC, CMP #### [facility] [address] [place] [address] USAALT [Catalytic activity/Vol]28 U/LNormal7-52The [facility] Physician GroupComment on above:Order Comment: STAT BUN/CREAT FOR CTPerformed By: #### CBC, CMP #### [facility] [address] [place] [address] USAAnion gap [Moles/Vol]11.0 mmol/LNormal6.0-15.0The [facility] Physician GroupComment on above:Order Comment: STAT BUN/CREAT FOR CT Performed By: #### CBC, CMP #### [facility] [address] [place] [address] USAAST [Catalytic activity/Vol]27 U/FBjedlu40-32Vbr [facility] Physician GroupComment on above:Order Comment: STAT BUN/CREAT FOR CTPerformed By: #### CBC, CMP #### [place] [address] USABilirubin [Mass/Vol]0.5 mg/dLNormal0.3-1.0The [facility] Physician GroupComment on above:Order Comment: STAT BUN/CREAT FOR CTPerformed By: #### CBC, CMP #### [place] [address] USACalcium [Mass/Vol]9.6 mg/dLNormal8.6-10.3The [facility] Physician GroupComment on above:Order Comment: STAT BUN/CREAT FOR CTPerformed By: #### CBC, CMP #### [place] [address] USAChloride [Moles/Vol]98 mmol/VSmgnsl00-538Jap [facility] Physician GroupComment on above:Order Comment: STAT BUN/CREAT FOR CTPerformed By: #### CBC, CMP #### [place] [address] USACO2 [Moles/Vol]27.8 mmol/TYucbic50.0-31.0The [facility] Physician GroupComment on above:Order Comment: STAT BUN/CREAT FOR CTPerformed By: #### CBC, CMP #### [facility] [address] [place] [address] USACreatinine [Mass/Vol]0.87 mg/dLNormal0.60-1.20The [facility] Physician GroupComment on above:Order Comment: STAT BUN/CREAT FOR CT Performed By: #### CBC, CMP #### [place] [address] USACreatinine Clr Calc Etnurgts11.34NormPal[facility] Physician GroupComment on above:Order Comment: STAT BUN/CREAT FOR CTResult Comment: PERFORMED BY: [place] [address] PATHOLOGIST ELECTRICAL SYSTEMS DESIGN ENGINEER STEFANO HOLT M.D.Performed By: #### CBC, CMP #### [place] [address] USAGFR/1.73 sq M.predicted MDRD (S/P/Bld) [Vol rate/Area] mL/min/{1.73_m2}NormalThe [facility] Physician GroupComment on above:Order Comment: STAT BUN/CREAT FOR CTPerformed By: #### CBC, CMP #### [place] [address] USAGlobulin (S) [Mass/Vol]3.6 g/dLNoScotland Memorial Hospital Physician GroupComment on above:Order Comment: STAT BUN/CREAT FOR CTPerformed By: #### CBC, CMP #### [place] [address] USAGlucose [Mass/Vol]96 mg/xPTmhfng97-523Bsk [facility] Physician GroupComment on above:Order Comment: STAT BUN/CREAT FOR CTResult Comment: Random Glucose Reference Range is dependent on time and content of last meal. Glucose of more than 200 mg/dL in a nonstressed, ambulatory subject supports the diagnosis of Diabetes Mellitus. ADA recommended reference rangePerformed By: #### CBC, CMP #### [place] [address] USAPotassium [Moles/Vol]4.8 mmol/LNormal3.5-5.1The [facility] Physician GroupComment on above:Order Comment: STAT BUN/CREAT FOR CTPerformed By: #### CBC, CMP #### [place] [address] USAProtein [Mass/Vol]7.6 g/dLNormal6.4-8.9The [facility] Physician GroupComment on above:Order Comment: STAT BUN/CREAT FOR CTPerformed By: #### CBC, CMP #### [place] [address] USASodium [Moles/Vol]132 mmol/JUaw630-523Pxd [facility] Physician GroupComment on above:Order Comment: STAT BUN/CREAT FOR CTPerformed By: #### CBC, CMP #### [place] [address] USAUrea nitrogen [Mass/Vol]23 mg/dLNormal7-25The [facility] Physician GroupComment on above:Order Comment: STAT BUN/CREAT FOR CTPerformed By: #### CBC, CMP #### [place] [address] USAAdrenocorticotropic Hormone PLon 02-27-2024 Ad[address]ocortic[address] Hormone PL39.6 pg/mLNormal7.2-63.3The [facility] Physician GroupComment on above:Result Comment: ACTH reference interval for samples collected between 7 and 10 AM. Performed at: [facility] [id number] Sales[employer] Consultant: Juan Hendricks PhD, Phone: [phone] PERFORMED BY: [place] [address] PATHOLOGIST ELECTRICAL SYSTEMS DESIGN ENGINEER STEFANO HOLT M.D.Performed By: #### T4F, TSH3, JER, CMP #### [place] [address] [place] #### ACTH #### [facility] ,Complete Blood Count Auto Diffon 67-30-3288Fvrupijsk (Bld) [#/Vol]0.2 10*3/uL Normal0.0-0.2The [facility] Physician GroupComment on above:Result Comment: PERFORMED BY: [place] [address] PATHOLOGIST ELECTRICAL SYSTEMS DESIGN ENGINEER STEFANO HOLT M.D.Performed By: #### T4F, TSH3, JER, CMP #### [address] #### ACTH #### [facility] ,Basophils/100 WBC (Bld)3.5 %Normal.The [facility] Physician GroupComment on above:Performed By: #### T4F, TSH3, JER, CMP #### [address] #### ACTH #### [facility] ,Eosinophils (Bld) [#/Vol]0.9 10*3/uLHigh0.0-0.45The [facility] Physician Group Comment on above:Performed By: #### T4F, TSH3, JER, CMP #### [address] #### ACTH #### [facility] ,Eosinophils/100 WBC (Bld)13.9 %Normal.The [facility] Physician GroupComment on above:Performed By: #### T4F, TSH3, JER, CMP #### [place] [address] [place] #### ACTH #### [facility] ,Erythrocyte distribution width (RBC) [Ratio]14.0 %Dmsbdh76.9-15.3The [facility] Physician GroupComment on above:Performed By: #### T4F, TSH3, JER, CMP #### [place] [address] [place] #### ACTH #### [facility] ,Hematocrit (Bld) [Volume fraction]35.5 %Veebuf17.0-46.4The [facility] Physician GroupComment on above:Performed By: #### T4F, TSH3, JRE, CMP #### [place] [address] [place] #### ACTH #### [facility] ,Hemoglobin (Bld) [Mass/Vol]11.7 g/dLLow11.8-15.4The [facility]ician Group Comment on above:Performed By: #### T4F, TSH3, JER, CMP #### [place] [address] [place] #### ACTH #### [facility] ,Lymphocytes (Bld) [#/Vol]1.2 10*3/uLNormal1.00-4.8The [facility] Physician Group Comment on above:Performed By: #### T4F, TSH3, JER, CMP #### [address] #### ACTH #### [facility] ,Lymphocytes/100 WBC (Bld)17.7 %Normal.The [facility] Physician GroupComment on above:Performed By: #### T4F, TSH3, JER, CMP #### [place] [address] [place] #### ACTH #### [facility] ,MCH (RBC) [Entitic mass]29.6 tqNfrkzr71.7-34.3The [facility] Physician Group Comment on above:Performed By: #### T4F, TSH3, JER, CMP #### [place] [address] [place] #### ACTH #### [facility] ,MCV (RBC) [Entitic vol]89.5 bKDfzrop26-106Iem [facility] Physician GroupComment on above:Performed By: #### T4F, TSH3, JER, CMP #### [place] [address] [place] #### ACTH #### [facility] ,Mean Corpuscular HGB Conc33.0 g/lRGigchv88.0-35.0The [facility] Physician Group Comment on above:Performed By: #### T4F, TSH3, JER, CMP #### [place] [address] [place] #### ACTH #### [facility] ,Monocytes (Bld) [#/Vol]0.7 10*3/uLNormal0.0-0.8The [facility] Physician Group Comment on above:Performed By: #### T4F, TSH3, JER, CMP #### [place] [address] [place] #### ACTH #### [facility] ,Monocytes/100 WBC (Bld)11.0 %Normal.The [facility] Physician GroupComment on above:Performed By: #### T4F, TSH3, JER, CMP #### [address] #### ACTH #### [facility] ,Neutrophils (Bld) [#/Vol]3.6 10*3/uLNormal1.8-7.7The [facility]ician Group Comment on above:Performed By: #### T4F, TSH3, JER, CMP #### [place] [address] [place] #### ACTH #### [facility] ,Neutrophils/100 WBC (Bld)53.9 %Normal.The [facility] Physician GroupComment on above:Performed By: #### T4F, TSH3, JER, CMP #### [place] [address] [place] #### ACTH #### [facility] ,NRBC%0.2 /100{WBC}Normal0-0.5The [facility] Physician GroupComment on above: Performed By: #### T4F, TSH3, JER, CMP #### [place] [address] [place] #### ACTH #### [facility] ,Platelet mean volume (Bld) [Entitic vol]8.3 fLNormal6.3-10.7The [facility] Physician GroupComment on above:Performed By: #### T4F, TSH3, EJR, CMP #### [place] [address] [place] #### ACTH #### [facility] ,Platelets (Bld) [#/Vol]262 10*3/uKXlrqtr711-418Wll [facility] Physician Group Comment on above:Performed By: #### T4F, TSH3, JER, CMP #### [address] #### ACTH #### [facility] ,RBC (Bld) [#/Vol]3.97 10*6/uLNormal3.60-5.00The [facility] Physician [facility] Comment on above:Performed By: #### T4F, TSH3, JER, CMP #### [address] #### ACTH #### [facility] ,WBC (Bld) [#/Vol]6.7 10*3/uLNormal3.8-11.6The [facility] Physician GroupComment on above:Performed By: #### T4F, TSH3, JER, CMP #### [address] #### ACTH #### [facility] ,Comprehensive Metabolic Panelon 06-79-1603Ypkxblm [Mass/Vol]3.8 g/dLNormal 3.5-5.7The [facility] Physician GroupComment on above:Performed By: #### CBC, CMP #### [place] [address] USAAlbumin/Globulin [Mass ratio]1.1 {ratio}NormalThe [facility] Physician GroupComment on above:Performed By: #### CBC, CMP #### [place] [address] USAALP [Catalytic activity/Vol]370 U/HYhfr62-126Dpd [facility] Physician GroupComment on above:Performed By: #### CBC, CMP #### [facility] [address] [place] [address] USAALT [Catalytic activity/Vol]143 U/LHigh7-52The [facility] Physician GroupComment on above:Performed By: #### CBC, CMP #### [facility] [address] [place] [address] USAAnion gap [Moles/Vol]8.9 mmol/LNormal6.0-15.0The [facility] Physician GroupComment on above:Performed By: #### CBC, CMP #### [facility] [address] [place] [address] USAAST [Catalytic activity/Vol]98 U/MOguj76-72Yqp [facility] Physician GroupComment on above:Performed By: #### CBC, CMP #### [facility] [address] [place] [address] USABilirubin [Mass/Vol]0.6 mg/dLNormal0.3-1.0The [facility] Physician GroupComment on above:Performed By: #### CBC, CMP #### [facility] [address] [place] [address] USACalcium [Mass/Vol]9.6 mg/dLNormal8.6-10.3The [facility] Physician GroupComment on above:Performed By: #### CBC, CMP #### [facility] [address] [place] [address] USAChloride [Moles/Vol]97 mmol/UHvx22-261Oqh [facility] Physician GroupComment on above:Performed By: #### CBC, CMP #### [facility] [address] [place] [address] USACO2 [Moles/Vol]29.6 mmol/HOcwmkv96.0-31.0The [facility] Physician GroupComment on above:Performed By: #### CBC, CMP #### [facility] [address] [place] [address] USACreatinine [Mass/Vol]0.80 mg/dLNormal0.60-1.20The [facility] Physician GroupComment on above:Performed By: #### CBC, CMP #### [facility] [address] [place] [address] USACreatinine Clr Calc Etuefeqs94.54NormPal[facility] Springs [facility] Physician GroupComment on above:Performed By: #### CBC, CMP #### [facility] [address] [place] [address] USAGFR/1.73 sq M.predicted MDRD (S/P/Bld) [Vol rate/Area] mL/min/{1.73_m2}NormalThe [facility] Physician GroupComment on above:Performed By: #### CBC, CMP #### [facility] [address] [place] [address] USAGlobulin (S) [Mass/Vol]3.6 g/dLNoScotland Memorial Hospital Physician GroupComment on above:Performed By: #### CBC, CMP #### [place] [address] USAGlucose [Mass/Vol]95 mg/yATnqgtj59-391Mtt [facility] Physician GroupComment on above:Result Comment: Random Glucose Reference Range is dependent on time and content of last meal. Glucose of more than 200 mg/dL in a nonstressed, ambulatory subject supports the diagnosis of Diabetes Mellitus. ADA recommended reference rangePerformed By: #### CBC, CMP #### [place] [address] USAPotassium [Moles/Vol]4.5 mmol/LNormal3.5-5.1The [facility] Physician GroupComment on above:Performed By: #### CBC, CMP #### [place] [address] USAProtein [Mass/Vol]7.4 g/dLNormal6.4-8.9The [facility] Physician GroupComment on above:Performed By: #### CBC, CMP #### [place] [address] USASodium [Moles/Vol]131 mmol/OWjq910-727Sfy [facility] Physician GroupComment on above:Performed By: #### CBC, CMP #### [address] [place] [address] USAUrea nitrogen [Mass/Vol]12 mg/dLNormal [facility] Physician GroupComment on above:Performed By: #### CBC, CMP #### [place] [address] USACortisolon 89-09-6638Heipbvag11.4 ug/dLNoScotland Memorial Hospital Physician GroupComment on above:Result Comment: Reference range: AM 6 - 24 ug/dl PM <10 ug/dl [facility] Laboratory mdm sr and method: EtsyEL DXI, POLYCLONAL ANTIBODY CORTISOL ASSAY. PERFORMED BY: [place] [address] PATHOLOGIST ELECTRICAL SYSTEMS DESIGN ENGINEER STEFANO HOLT M.D.Performed By: #### T4F, TSH3, JER, CMP #### [address] #### ACTH #### [facility] ,No Panel InformationOrdered By: Aries Chavez on 02-27-2024 Adrenocorticotropic Wlhnbtx50.6 pg/mL7.2-63.3FMercy Health [facility] Comment on above:ACTH reference interval for samples collected between 7 and10 AM.Performed at: [address] [id number] Director: Juan Hendricks PhD, Phone: [phone] cortisol measurement Ordered By: Aries Chavez on 43-75-4134Lcupsara [Mass/Vol]17.4 ug/dL [facility] HospitalComment on above:[facility] mdm sr and method:EtsyEL DXI, POLYCLONAL ANTIBODY CORTISOL ASSAY. Reference range: AM 6 - 24 ug/dl PM <10 ug/dlThyrotropin [Units/volume] in Serum or PlasmaOrdered By: Aries Chavez on 37-13-6742OZM Qn23.15 m[IU]/LHigh 0.45-5.33[facility] HospitalComment on above:Performed By: #### T4F, TSH3, JER, CMP #### [address] #### ACTH #### [facility] ,Thyroxine (T4) free [Mass/volume] in Serum or PlasmaOrdered By: Aries Chavez on 87-50-2040Rxyf T4 [Mass/Vol]0.91 ng/dLNormal0.61-1.12[facility] HospitalComment on above:Performed By: #### T4F, TSH3, JER, CMP #### [facility] [address] #### ACTH #### [facility] ,Absolute reticulocyte countOrdered By: Aries Chavez on 12-28-2023 Reticulocytes (Bld) [#/Vol]0.068 10*6/uL0.024-0.084[facility] HospitalAlanine aminotransferase [Enzymatic activity/volume] in Serum or Plasma Ordered By: Aries Chavez on 91-46-2760YBH [Catalytic activity/Vol]23 U/L 7-52[facility] HospitalAlbumin [Mass/volume] in Serum or Plasma by Bromocresol green (BCG) dye binding methoOrdered By: Aries Chavez on 45-19-5069Fyjnlhb BCG dye [Mass/Vol]3.8 g/dL3.5-5.7FMercy Health St. Elizabeth Boardman HospitalAlkaline phosphatase [Enzymatic activity/volume] in Serum or PlasmaOrdered By: Aries Chavez on 70-22-5239JII [Catalytic activity/Vol]93 U/L34-104 [facility] HospitalAspartate aminotransferase [Enzymatic activity/volume] in Serum or PlasmaOrdered By: Aries Chavez on 12-28-2023 AST [Catalytic activity/Vol]25 U/S86-36QofplzqwbHocking Valley Community Hospital Basophils Auto (Bld) [#/Vol]Ordered By: Aries Chavez on 33-51-3107Rbpzdgvvi (Bld) [#/Vol]0.2 10*3/uL0.0-0.2FMercy Health St. Elizabeth Boardman HospitalBasophils/100 WBC Auto (Bld)Ordered By: Aries Chavez on 08-65-1751Mxfpltcql/100 WBC (Bld) 2.8 %.[facility] HospitalBilirubin.total [Mass/volume] in Serum or PlasmaOrdered By: Aries Chavez on 08-70-2795Ongnoegfs [Mass/Vol]0.4 mg/dL 0.3-1.0[facility] HospitalCalcium [Mass/volume] in Serum or Plasma Ordered By: Aries Chavez on 66-09-4715Vlsizrp [Mass/Vol]9.5 mg/dL8.6-10.3 [facility] HospitalCarbon dioxide, total [Moles/volume] in Serum or PlasmaOrdered By: Aries Chavez on 44-04-5092WM6 [Moles/Vol]29.5 mmol/L 21.0-31.0[facility] HospitalChloride [Moles/volume] in Serum or PlasmaOrdered By: Aries Chavez on 00-06-1742Ajzvnzza [Moles/Vol]94 mmol/L 98-107[facility] HospitalCreatinine [Mass/volume] in Serum or PlasmaOrdered By: Aries Chavez on 42-36-8804Lwrewqznfh [Mass/Vol]0.77 mg/dL 0.60-1.20[facility] HospitalEosinophils Auto (Bld) [#/Vol]Ordered By: Aries Chavez on 51-58-9396Phqfhplkoyz (Bld) [#/Vol]0.5 10*3/uL0.0-0.45 [facility] HospitalEosinophils/100 WBC Auto (Bld)Ordered By: Aries Chavez on 78-07-2689Witdtylkbzs/100 WBC (Bld)6.4 %.[facility] HospitalErythrocyte distribution width Auto (RBC) [Ratio]Ordered By: Aries Chavez on 04-30-7492Zredrznyene distribution width (RBC) [Ratio]18.2 %11.9-15.3FMercy Health St. Elizabeth Boardman HospitalFerritin [Mass/volume] in Serum or PlasmaOrdered By: Rogers Moon on 26-09-2169Smumpabd [Mass/Vol]397.8 ng/mLHigh 11.0-306.8[facility] HospitalFerritin [Mass/Vol]Ferritin [Mass/volume] in Serum or GdvijzWifn65.0-306.8[facility] Folate [Mass/volume] in Serum or PlasmaOrdered By: Aries Chavez on 28-79-2115Zwjajl [Mass/Vol]13.7 ng/mL>5.9[facility] Comment on above:Folate reference range: >5.9 ng/mlThe WHO technical consultation on folate and vitamin a15jslfqcjbbvxl has determined that folate concentrations lessthan 4 ng/ml are considered deficient.Folate [Mass/Vol]Folate [Mass/volume] in Serum or Plasma>5.9[facility] HospitalComment on above:Folate reference range: >5.9 ng/mlThe WHO technical consultation on folate and vitamin u95qjexoqeoqxrk has determined that folate concentrations lessthan 4 ng/ml are considered deficient.Globulin Calc (S) [Mass/Vol]Ordered By: Aries Chavez on 60-99-1950Ssfijqhy (S) [Mass/Vol]4.0 g/dLHocking Valley Community HospitalGlucose [Mass/volume] in Serum or PlasmaOrdered By: Aries Chavez on 50-92-6481Jjiwogo [Mass/Vol]95 mg/dP08-205SxlvnoinoHocking Valley Community HospitalComment on above:ADA recommended reference rangeRandom Glucose Reference Range is dependent on time and content of last meal. Glucose of more than 200 mg/dL in a nonstressed, ambulatory subject supports the diagnosisof Diabetes Mellitus.Hematocrit Auto (Bld) [Volume fraction]Ordered By: Aries Chavez on 22-94-2469Fbtwjrtsqd (Bld) [Volume fraction]34.9 %34.0-46.4 [facility] HospitalHemoglobin [Mass/volume] in BloodOrdered By: Aries Chavez on 75-00-2536Epgfywukvd (Bld) [Mass/Vol]11.4 g/dL11.8-15.4 [facility] HospitalIron [Mass/volume] in Serum or PlasmaOrdered By: Aries Chavez on 22-59-2949Rior [Mass/Vol]144 ug/hK35-553LsyqwwdrpHocking Valley Community HospitalIron [Mass/Vol]Iron [Mass/volume] in Serum or Plasma 50-212[facility] HospitalIron binding capacity [Mass/volume] in Serum or PlasmaOrdered By: Aries Chavez on 60-99-7685Yuml binding capacity [Mass/Vol]311 ug/xD718-446CsqraqrvxHocking Valley Community HospitalIron saturation [Mass Fraction] in Serum or PlasmaOrdered By: Aries Chavez on 26-19-7122Dfxw saturation [Mass fraction]46.3 %20-50[facility] HospitalLactate dehydrogenase [Enzymatic activity/volume] in Serum or Plasma by Lactate to py Ordered By: Aries Chavez on 35-31-0559GZZ Lactate to pyruvate reaction [Catalytic activity/Vol]135 U/CYcp749-904XcpvxfystHocking Valley Community HospitalLD Lactate to pyruvate reaction [Catalytic activity/Vol]Lactate dehydrogenase [Enzymatic activity/volume] in Serum or Plasma by Lactate to vbYjr295-599 [facility] HospitalLeukocytes [#/volume] corrected for nucleated erythrocytes in Blood by Automated counOrdered By: Aries Chavez on 20-56-5777ENR corrected for nucl RBC Auto (Bld) [#/Vol]7.6 10*3/uL3.8-11.6 [facility] HospitalLymphocytes Auto (Bld) [#/Vol]Ordered By: Aries Chavez on 52-13-8481Vzlwxcgrijs (Bld) [#/Vol]1.3 10*3/uL1.00-4.8 [facility] HospitalLymphocytes/100 WBC Auto (Bld)Ordered By: Aries Chavez on 86-07-9791Wehbjmdgasj/100 WBC (Bld)17.1 %.[facility] Auto (RBC) [Entitic mass]Ordered By: Aries Chavez on 56-26-0501IBX (RBC) [Entitic mass]27.4 pg24.7-34.3FSelect Medical Specialty Hospital - AkronHC Auto (RBC) [Mass/Vol]Ordered By: Aries Chavez on 84-83-2916HYOP (RBC) [Mass/Vol]32.6 g/dL32.0-35.0[facility] CenterMCV Auto (RBC) [Entitic vol]Ordered By: Aries Chavez on 47-25-1279TPS (RBC) [Entitic vol]84.1 jI05-289AwmxqadjmHocking Valley Community HospitalMonocytes Auto (Bld) [#/Vol]Ordered By: Aries Chavez on 21-07-7450Qvmjyeugq (Bld) [#/Vol] 0.6 10*3/uL0.0-0.8[facility] HospitalMonocytes/100 WBC Auto (Bld) Ordered By: Aries Chavez on 54-44-1969Pyjafxlxr/100 WBC (Bld)8.1 %. [facility] HospitalNeutrophils Auto (Bld) [#/Vol]Ordered By: Aries Chavez on 37-01-6235Tonqzqlirga (Bld) [#/Vol]5.0 10*3/uL1.8-7.7 [facility] HospitalNeutrophils/100 WBC Auto (Bld)Ordered By: Aries Chavez on 66-34-3167Dlxrgwjxcoc/100 WBC (Bld)65.6 %.[facility] HospitalNo Panel InformationOrdered By: Aries Chavez on 02-25-3695Gtutwektwpbgkxdwwom Zbalvsl13.2 pg/mL7.2-63.3FMercy Health St. Elizabeth Boardman HospitalComment on above:ACTH reference interval for samples collected between 7 and10 AM.Performed at: - Lab[address] [id number] Director: Juan Hendricks PhD, Phone: [phone] GFR (CKD-EPI)> 60.0 mL/MinHocking Valley Community HospitalPharmacy Creatinine Clearance (Chem59.72[facility] HospitalNucleated erythrocytes [Presence] in Blood by Automated countOrdered By: Aries Chavez on 92-86-9956Lrvchydhb RBC Auto Ql (Bld)0.1 /100{WBC}0-0.5FMercy Health St. Elizabeth Boardman HospitalPlatelet mean volume Auto (Bld) [Entitic vol]Ordered By: Aries Chavez on 62-31-7373Cpkjsymz mean volume (Bld) [Entitic vol]8.1 fL6.3-10.7 [facility] HospitalPlatelets Auto (Bld) [#/Vol]Ordered By: Aries Chavez on 47-43-8356Kxbouvzuo (Bld) [#/Vol]344 10*3/uN742-103FuxysrwqjHocking Valley Community HospitalPotassium [Moles/volume] in Serum or PlasmaOrdered By: Aries Chavez on 13-30-7484Zaewkxvoi [Moles/Vol]4.8 mmol/L3.5-5.1FMercy Health St. Elizabeth Boardman HospitalProtein [Mass/volume] in Serum or PlasmaOrdered By: Aries Chavez on 11-22-1375Jcrsgqs [Mass/Vol]7.8 g/dL6.4-8.9[facility] HospitalRBC Auto (Bld) [#/Vol]Ordered By: Aries Chavez on 97-35-4713MCG (Bld) [#/Vol]4.15 10*6/uL3.60-5.00[facility] HospitalRandom cortisol measurementOrdered By: Aries Chavez on 12-28-2023 Cortisol [Mass/Vol]13.7 ug/dLHocking Valley Community HospitalComment on above: [facility] Laboratory mdm sr and method:AMRITA MemriseEL DXI, POLYCLONAL ANTIBODY CORTISOL ASSAY.Reference range: AM 6 - 24 ug/dl PM <10 ug/dl Reticulocytes [#/volume] in BloodOrdered By: Aries Chavez on 12-28-2023 Reticulocytes (Bld) [#/Vol]Absolute reticulocyte count0.024-0.084[facility] HospitalReticulocytes/100 RBC Auto (Bld)Ordered By: Aries Chavez on 53-31-7678Pkyeynjvnuuxu/100 RBC (Bld)1.6 %High0.5-1.5FMercy Health St. Elizabeth Boardman HospitalReticulocytes/100 RBC (Bld)Reticulocyte % autoHigh0.5-1.5 [facility] Hospitalerum or plasma albumin/globulin mass ratio Ordered By: Aries Chavez on 27-72-1410Pppmjcv/Globulin [Mass ratio]1.0 {ratio}[facility] Hospitalerum or plasma anion gap determination Ordered By: Aries Chavez on 33-55-3070Grgvv gap [Moles/Vol]9.3 mmol/L 6.0-15.0[facility] Hospitalerum or plasma erythropoietin (EPO) measurement (units/volume)Ordered By: Aries Chavez on 12-28-2023 Erythropoietin (EPO) Qn3.5 mIU/mL2.6-18.5FMercy Health St. [facility] Hospital Comment on above:[facility] DxI 800 Immunoassay SystemValues obtained with different assay methods or kits cannotbe used interchangeably. Results cannot be interpreted asabsolute evidence of the presence or absence of malignantdisease.Performed at: [facility] [address] [id number] Director: Juan Hendricks PhD, Phone: [phone] (EPO) QnSerum or plasma erythropoietin (EPO) measurement (units/volume)2.6-18.5 [facility] HospitalComment on above:[facility] DxI 800 Immunoassay SystemValues obtained with different assay methods or kits cannotbe used interchangeably. Results cannot be interpreted asabsolute evidence of the presence or absence of malignantdisease.Performed at: [facility] [address] [id number] Director: Juan Hendricks PhD, Phone: [phone] or plasma iron binding capacity measurement (mass/volume)Ordered By: Aires Chavez on 57-39-2862Joyk binding capacity [Mass/Vol]Iron binding capacity [Mass/volume] in Serum or Lfdwdh132-056QaxkwefffMiami Valley Hospitalerum or plasma iron saturation measurement (mass fraction)Ordered By: Aries Chavez on 82-35-3913Hgmz saturation [Mass fraction]Iron saturation [Mass Fraction] in Serum or Nldeuq31-90GjpzodwksMiami Valley Hospitalodium [Moles/volume] in Serum or PlasmaOrdered By: Aries Chavez on 12-28-2023 Sodium [Moles/Vol]128 mmol/O224-332EaxvbjrafHocking Valley Community HospitalThyrotropin [Units/volume] in Serum or PlasmaOrdered By: Aries Chavez on 55-29-8528JYC Qn18.92 m[IU]/L0.45-5.33[facility] HospitalThyroxine (T4) free [Mass/volume] in Serum or PlasmaOrdered By: Aries Chavez on 22-20-4364Zgxc T4 [Mass/Vol]0.37 ng/dL0.61-1.12[facility] HospitalTransferrin [Mass/volume] in Serum or PlasmaOrdered By: Aries Chavez on 12-28-2023 Transferrin [Mass/Vol]222 mg/iK190-393OusvpsurfHocking Valley Community Hospital Transferrin [Mass/Vol]Transferrin [Mass/volume] in Serum or Mezvwj497-816 [facility] HospitalUrea nitrogen [Mass/volume] in Serum or Plasma Ordered By: Aries Chavez on 28-42-5531Ptgl nitrogen [Mass/Vol]14 mg/dL7- [facility] HospitalVitamin B12 ser/plasOrdered By: Aries Chavez on 91-89-6445Hfifgvyqx (Vitamin B12) [Mass/Vol]333 pg/hP672-186 [facility] HospitalCobalamin (Vitamin B12) [Mass/Vol]Vitamin B12 ser/zjjr701-177TwpowiwicHocking Valley Community HospitalWBC Auto (Bld) [#/Vol]Ordered By: Aries Chavez on 73-50-1690GBC (Bld) [#/Vol]7.6 10*3/uL3.8-11.6FMercy Health St. Elizabeth Boardman HospitalAlanine aminotransferase [Enzymatic activity/volume] in Serum or PlasmaOrdered By: Aries Chavez on 41-25-1027WQO [Catalytic activity/Vol]25 U/L7-52[facility] HospitalAlbumin [Mass/volume] in Serum or Plasma by Bromocresol green (BCG) dye binding methoOrdered By: Aries Chavez on 70-87-7046Qtsmdgp BCG dye [Mass/Vol]3.3 g/dL3.5-5.7FMercy Health St. Elizabeth Board[facility] HospitalAlkaline phosphatase [Enzymatic activity/volume] in Serum or PlasmaOrdered By: Aries Chavez on 67-93-3523QUT [Catalytic activity/Vol] 109 U/N35-519RdgvjziumHocking Valley Community HospitalAspartate aminotransferase [Enzymatic activity/volume] in Serum or PlasmaOrdered By: Aries Chavez on 03-31-6779ZXV [Catalytic activity/Vol]24 U/O30-26HdeoojlcfHocking Valley Community HospitalBasophils Auto (Bld) [#/Vol]Ordered By: Aries Chavez on 11-15-2023 Basophils (Bld) [#/Vol]0.2 10*3/uL0.0-0.2FMercy Health St. [facility] Hospital Basophils/100 WBC Auto (Bld)Ordered By: Aries Chavez on 11-15-2023 Basophils/100 WBC (Bld)2.9 %.[facility] HospitalBilirubin.total [Mass/volume] in Serum or PlasmaOrdered By: Aries Chavez on 11-15-2023 Bilirubin [Mass/Vol]0.4 mg/dL0.3-1.0[facility] HospitalCBC W Auto Differential panel (Bld)on 25-14-3925Wysjwssxw (Bld) [#/Vol]0.2 10*3/uL0.0 - 0.2 10*3/uLNOMS HealthcareBasophils/100 WBC Manual cnt (Syn fld)2.9 %.[facility] HealthcareEosinophils (Bld) [#/Vol]0.4 10*3/uL0.0 - 0.45 10*3/uLNOMS Healthcare Eosinophils/100 WBC Manual cnt (Syn fld)5.2 %.[facility] HealthcareErythrocyte distribution width (RBC) [Ratio]16.8 %High11.9 - 15.3 %[facility] HealthcareHematocrit (Bld) [Volume fraction]30.3 %Low34.0 - 46.4 %[facility] HealthcareHemoglobin (Bld) [Mass/Vol]9.7 g/dLLow11.8 - 15.4 g/dLNOND HealthcareInterpretation and review of laboratory resultsAbnormalNOND HealthcareLymphocytes (Bld) [#/Vol]1.7 10*3/uL 1.00 - 4.8 10*3/uLNOMS HealthcareLymphocytes/100 WBC Manual cnt (Syn fld)25.4 %. [facility] HospitalH (RBC) [Entitic mass]26.4 pg24.7 - 34.3 pgNOBarnes-Jewish HospitalHC (RBC) [Mass/Vol]32.0 g/dL32.0 - 35.0 g/dLNOND HealthcareMCV (RBC) [Entitic vol] 82.7 fL80 - 100 fLNOMS HealthcareMonocytes (Bld) [#/Vol]0.8 10*3/uL0.0 - 0.8 10*3/uLNOMS HealthcareMonocytes+Macrophages/100 WBC Manual cnt (Syn fld)11.6 %. [facility]OM[facility] HealthcareNeutrophils (Bld) [#/Vol]3.8 10*3/uL1.8 - 7.7 10*3/uLNOMS HealthcareNeutrophils/100 WBC Manual cnt (Syn fld)54.9 %.[facility]OMS HealthcareNRBC0.0 /100{WBC}0 - 0.5 /100{WBC}[facility]OMS HealthcarePlatelet mean volume (Bld) [Entitic vol]7.5 fL6.3 - 10.7 fLNOMS HealthcarePlatelets (Bld) [#/Vol]509 10*3/lIYlza786 - 450 10*3/uLNOMS HealthcareRBC LM.HPF (Urine sed) [#/Area]3.67 /[HPF]3.60 - 5.00NOND HealthcareWBC (Bld) [#/Vol]6.9 10*3/uL3.8 - 11.6 10*3/uLNOMS Healthcare WBC LM.HPF (Urine sed) [#/Area]6.9 10*3/uL3.8 - 11.6 10*3/uLNOWestern [facility] HealthcareCalcium [Mass/volume] in Serum or PlasmaOrdered By: Aries Chavez on 28-18-8073Pekhzfc [Mass/Vol]9.8 mg/dL8.6-10.3FMercy Health St. Elizabeth Boardman HospitalCarbon dioxide, total [Moles/volume] in Serum or PlasmaOrdered By: Aries Chavez on 62-50-6788JT9 [Moles/Vol]28.7 mmol/L21.0-31.0[facility] HospitalChloride [Moles/volume] in Serum or PlasmaOrdered By: Aries Chavez on 19-49-6920Fgxeltcu [Moles/Vol]101 mmol/B71-927EjatsrzskHocking Valley Community HospitalCreatinine [Mass/volume] in Serum or PlasmaOrdered By: Aries Chavez on 80-22-5758Mvnuhigatn [Mass/Vol]0.71 mg/dL0.60-1.20[facility] HospitalEosinophils Auto (Bld) [#/Vol]Ordered By: Aries Chavez on 40-99-0126Srxfogbqmym (Bld) [#/Vol]0.4 10*3/uL0.0-0.45[facility] HospitalEosinophils/100 WBC Auto (Bld)Ordered By: Aries Chavez on 56-25-5576Hmngqvurbrm/100 WBC (Bld)5.2 %.[facility] HospitalErythrocyte distribution width Auto (RBC) [Ratio]Ordered By: Aries Chavez on 45-67-4193Trfueecprtv distribution width (RBC) [Ratio]16.8 % 11.9-15.3FMercy Health St. Elizabeth Board[facility] HospitalGlobulin Calc (S) [Mass/Vol]Ordered By: Aries Chavez on 36-86-5295Vghvfznz (S) [Mass/Vol]4.6 g/dLHocking Valley Community HospitalGlucose [Mass/volume] in Serum or PlasmaOrdered By: Aries Chavez on 43-72-4532Rpwecud [Mass/Vol]100 mg/gP24-474TuejkugfhHocking Valley Community HospitalComment on above:ADA recommended reference rangeRandom Glucose Reference Range is dependent on time and content of last meal. Glucose of more than 200 mg/dL in a nonstressed, ambulatory subject supports the diagnosisof Diabetes Mellitus.Hematocrit Auto (Bld) [Volume fraction]Ordered By: Aries Chavez on 50-33-9641Otdxablral (Bld) [Volume fraction]30.3 %34.0-46.4 [facility] HospitalHemoglobin [Mass/volume] in BloodOrdered By: Aries Chavez on 42-61-9229Bygsmuuubj (Bld) [Mass/Vol]9.7 g/dL11.8-15.4 [facility] HospitalLeukocytes [#/volume] corrected for nucleated erythrocytes in Blood by Automated counOrdered By: Aries Chavez on 36-77-7824NFJ corrected for nucl RBC Auto (Bld) [#/Vol]6.9 10*3/uL3.8-11.6 [facility] HospitalLymphocytes Auto (Bld) [#/Vol]Ordered By: Aries Chavez on 52-73-3959Boukqziyzdj (Bld) [#/Vol]1.7 10*3/uL1.00-4.8 [facility] HospitalLymphocytes/100 WBC Auto (Bld)Ordered By: Aries Chavez on 50-48-6599Bsqelwywesx/100 WBC (Bld)25.4 %.[facility] Auto (RBC) [Entitic mass]Ordered By: Aries Chavez on 51-21-2014HOR (RBC) [Entitic mass]26.4 pg24.7-34.3FMercy Health St. Elizabeth Board[facility] HospitalMCHC Auto (RBC) [Mass/Vol]Ordered By: Aries Chavez on 29-74-2806IAWG (RBC) [Mass/Vol]32.0 g/dL32.0-35.0[facility] HospitalMCV Auto (RBC) [Entitic vol]Ordered By: Aries Chavez on 74-72-9206TVI (RBC) [Entitic vol]82.7 zK99-592QhqevkozpHocking Valley Community HospitalMonocytes Auto (Bld) [#/Vol]Ordered By: Aries Chavez on 22-66-4828Hxoxdtwzf (Bld) [#/Vol] 0.8 10*3/uL0.0-0.8[facility] HospitalMonocytes/100 WBC Auto (Bld) Ordered By: Aries Chavez on 06-98-2832Elihjpkdc/100 WBC (Bld)11.6 %. [facility] HospitalNeutrophils Auto (Bld) [#/Vol]Ordered By: Aries Chavez on 01-14-4775Cjwjwyzjkua (Bld) [#/Vol]3.8 10*3/uL1.8-7.7 [facility] HospitalNeutrophils/100 WBC Auto (Bld)Ordered By: Aries Chavez on 07-39-8110Dnskjwqrtze/100 WBC (Bld)54.9 %.[facility] HospitalNo Panel InformationOrdered By: Aries Chavez on 33-97-5066Dnxffmmuwmcpefptkzg Dxqizuz31.5 pg/mL7.2-63.3FMercy Health St. Elizabeth Boardman HospitalComment on above:ACTH reference interval for samples collected between 7 and10 AM.Performed at: [facility] LabJ[place]ille [id number] Director: Juan Hendricks PhD, Phone: [phone] GFR (CKD-EPI)> 60.0 mL/MinHocking Valley Community HospitalPharmacy Creatinine Clearance (Chem65.11[facility] HospitalNucleated erythrocytes [Presence] in Blood by Automated countOrdered By: Aries Chavez on 93-27-8852Hguqavirx RBC Auto Ql (Bld)0.0 /100{WBC}0-0.5FMercy Health St. Elizabeth Boardman HospitalPlatelet mean volume Auto (Bld) [Entitic vol]Ordered By: Aries Chavez on 71-31-4060Esknhpqs mean volume (Bld) [Entitic vol]7.5 fL6.3-10.7 [facility] HospitalPlatelets Auto (Bld) [#/Vol]Ordered By: Aries Chavez on 97-55-0112Lpqsefloo (Bld) [#/Vol]509 10*3/dG770-645AawvqajmdHocking Valley Community HospitalPotassium [Moles/volume] in Serum or PlasmaOrdered By: Aries Chavez on 20-24-5900Auovdcvev [Moles/Vol]4.8 mmol/L3.5-5.1FMercy Health St. Elizabeth Board[facility] HospitalProtein [Mass/volume] in Serum or PlasmaOrdered By: Aries Chavez on 43-69-5573Tugsuxq [Mass/Vol]7.9 g/dL6.4-8.9[facility] HospitalRBC Auto (Bld) [#/Vol]Ordered By: Aries Chavez on 87-63-4749FPN (Bld) [#/Vol]3.67 10*6/uL3.60-5.00[facility] HospitalRandom cortisol measurementOrdered By: Aries Chavez on 11-15-2023 Cortisol [Mass/Vol]14.2 ug/dLHocking Valley Community HospitalComment on above: [facility] Laboratory mdm sr and method:AMRITA UNICEL DXI, POLYCLONAL ANTIBODY CORTISOL ASSAY.Reference range: AM 6 - 24 ug/dl PM <10 ug/dlSerum or plasma albumin/globulin mass ratioOrdered By: Aries Chavez on 11-15-2023 Albumin/Globulin [Mass ratio]0.7 {ratio}[facility] Hospitalerum or plasma anion gap determinationOrdered By: Aries Chavez on 11-15-2023 Anion gap [Moles/Vol]10.1 mmol/L6.0-15.0[facility] Hospitalodium [Moles/volume] in Serum or PlasmaOrdered By: Aries Chavez on 11-15-2023 Sodium [Moles/Vol]135 mmol/N959-882EicyvisnfHocking Valley Community HospitalThyrotropin [Units/volume] in Serum or PlasmaOrdered By: Aries Chavez on 78-52-6969IBS Qn0.01 m[IU]/L0.45-5.33[facility] HospitalThyroxine (T4) free [Mass/volume] in Serum or PlasmaOrdered By: Aries Chavez on 39-23-9796Yyfa T4 [Mass/Vol]2.10 ng/dL0.61-1.12[facility] HospitalUrea nitrogen [Mass/volume] in Serum or PlasmaOrdered By: Arise Chavez on 70-72-7381Jgyz nitrogen [Mass/Vol]16 mg/dL7-25[facility] HospitalWBC Auto (Bld) [#/Vol]Ordered By: Aries Chavez on 05-22-5463SBJ (Bld) [#/Vol]6.9 10*3/uL 3.8-11.6FMercy Health St. Elizabeth Board[facility] HospitalFerritin [Mass/volume] in Serum or PlasmaOrdered By: Vannessa Perales on 28-30-6165Rstazukd [Mass/Vol]994.8 ng/mL11.0-306.8[facility] HospitalIron [Mass/volume] in Serum or PlasmaOrdered By: Vannessa Perales on 88-44-5375Labq [Mass/Vol]26 ug/wI80-529 [facility] HospitalIron binding capacity [Mass/volume] in Serum or PlasmaOrdered By: Vannessa Perales on 44-55-3277Rpvj binding capacity [Mass/Vol]239 ug/dU638-085RdccozcjtHocking Valley Community HospitalIron saturation [Mass Fraction] in Serum or PlasmaOrdered By: Vannessa Perales on 71-29-6223Lpav saturation [Mass fraction]10.9 %20-50[facility] Transferrin [Mass/volume] in Serum or PlasmaOrdered By: Vannessa Perales on 28-94-1555Mltfbnzhqxy [Mass/Vol]171 mg/nB621-135QnilqmqddHocking Valley Community HospitalAlanine aminotransferase [Enzymatic activity/volume] in Serum or Plasma Ordered By: Aries Chavez on 19-91-6620TNR [Catalytic activity/Vol]67 U/L 7-52[facility] HospitalAlbumin [Mass/volume] in Serum or Plasma by Bromocresol green (BCG) dye binding methoOrdered By: Aries Chavez on 73-15-8756Erhiaby BCG dye [Mass/Vol]3.4 g/dL3.5-5.7FMercy Health St. Elizabeth Board[facility] HospitalAlkaline phosphatase [Enzymatic activity/volume] in Serum or PlasmaOrdered By: Aries Chavez on 56-47-3787HZF [Catalytic activity/Vol]113 U/L34-104 [facility] HospitalAspartate aminotransferase [Enzymatic activity/volume] in Serum or PlasmaOrdered By: Aries Chavez on 10-04-2023 AST [Catalytic activity/Vol]22 U/B41-76YfqluvoxoHocking Valley Community Hospital Basophils Auto (Bld) [#/Vol]Ordered By: Aries Chavez on 59-04-5500Ifyldncio (Bld) [#/Vol]0.1 10*3/uL0.0-0.2FMercy Health St. Elizabeth Board[facility] HospitalBasophils/100 WBC Auto (Bld)Ordered By: Aries Chavez on 09-85-8128Hjxhtfwma/100 WBC (Bld) 2.3 %.[facility] HospitalBilirubin.total [Mass/volume] in Serum or PlasmaOrdered By: Aries Chavez on 30-86-2963Rajkepzyv [Mass/Vol]0.3 mg/dL 0.3-1.0[facility] HospitalCalcium [Mass/volume] in Serum or Plasma Ordered By: Aries Chavez on 62-90-0777Qydnsio [Mass/Vol]8.9 mg/dL8.6-10.3 [facility] HospitalCarbon dioxide, total [Moles/volume] in Serum or PlasmaOrdered By: Aries Chavez on 18-66-5034DG9 [Moles/Vol]26.2 mmol/L 21.0-31.0[facility] HospitalChloride [Moles/volume] in Serum or PlasmaOrdered By: Aries Chavez on 50-65-0564Nvjzzbhu [Moles/Vol]94 mmol/L 98-107[facility] HospitalCreatinine [Mass/volume] in Serum or PlasmaOrdered By: Aries Chavez on 39-42-2054Xyytgevcav [Mass/Vol]0.75 mg/dL 0.60-1.20[facility] HospitalEosinophils Auto (Bld) [#/Vol]Ordered By: Aries Chavez on 42-28-7658Tgqtciinojd (Bld) [#/Vol]0.2 10*3/uL0.0-0.45 [facility] HospitalEosinophils/100 WBC Auto (Bld)Ordered By: Aries Chavez on 89-19-5519Wxqfbfdqmne/100 WBC (Bld)2.8 %.[facility] HospitalErythrocyte distribution width Auto (RBC) [Ratio]Ordered By: Aries Chavez on 69-59-9511Lxguuceiwtn distribution width (RBC) [Ratio]18.4 %11.9-15.3FMercy Health St. [facility] HospitalGlobulin Calc (S) [Mass/Vol]Ordered By: Aries Chavez on 02-91-6507Zrfrxbep (S) [Mass/Vol]4.5 g/dLHocking Valley Community HospitalGlucose [Mass/volume] in Serum or PlasmaOrdered By: Aries Chavez on 67-48-6395Eeduvjv [Mass/Vol]101 mg/iH78-896LulurfnqvHocking Valley Community HospitalComment on above:ADA recommended reference rangeRandom Glucose Reference Range is dependent on time and content of last meal. Glucose of more than 200 mg/dL in a nonstressed, ambulatory subject supports the diagnosisof Diabetes Mellitus.Hematocrit Auto (Bld) [Volume fraction]Ordered By: Aries Chavez on 37-17-4068Llsdzngfzb (Bld) [Volume fraction]26.2 %34.0-46.4 [facility] HospitalHemoglobin [Mass/volume] in BloodOrdered By: Aries Chavez on 71-26-9605Oicfqcndzz (Bld) [Mass/Vol]8.4 g/dL11.8-15.4 [facility] HospitalLeukocytes [#/volume] corrected for nucleated erythrocytes in Blood by Automated counOrdered By: Aries Chavez on 29-78-3257WHS corrected for nucl RBC Auto (Bld) [#/Vol]5.8 10*3/uL3.8-11.6 [facility] HospitalLymphocytes Auto (Bld) [#/Vol]Ordered By: Aries Chavez on 16-82-4472Pxxqodpyync (Bld) [#/Vol]1.2 10*3/uL1.00-4.8 [facility] HospitalLymphocytes/100 WBC Auto (Bld)Ordered By: Aries Chavez on 13-82-9062Rxlviaqjgxe/100 WBC (Bld)21.7 %.[facility] Auto (RBC) [Entitic mass]Ordered By: Aries Chavez on 80-47-3936DYK (RBC) [Entitic mass]25.3 pg24.7-34.3FMer[facility] HospitalMCHC Auto (RBC) [Mass/Vol]Ordered By: Aries Chavez on 69-76-8970GZPU (RBC) [Mass/Vol]32.0 g/dL32.0-35.0[facility] HospitalMCV Auto (RBC) [Entitic vol]Ordered By: Aries Chavez on 39-60-9390JRU (RBC) [Entitic vol]79.1 tL63-278MysmsalbkHocking Valley Community HospitalMonocytes Auto (Bld) [#/Vol]Ordered By: Aries Chavez on 99-55-6107Mbknqthga (Bld) [#/Vol] 0.7 10*3/uL0.0-0.8[facility] HospitalMonocytes/100 WBC Auto (Bld) Ordered By: Aries Chavez on 55-66-0150Zuamkouqc/100 WBC (Bld)11.5 %. [facility] HospitalNeutrophils Auto (Bld) [#/Vol]Ordered By: Aries Chavez on 52-72-3364Mzqnjbyojhs (Bld) [#/Vol]3.6 10*3/uL1.8-7.7 [facility] HospitalNeutrophils/100 WBC Auto (Bld)Ordered By: Aries Chavez on 60-43-7664Szaffjpmdlc/100 WBC (Bld)61.7 %.[facility] HospitalNo Panel InformationOrdered By: Aries Chavez on 15-82-3863Ongcypwixijjvanmojy Crczrul21.4 pg/mL7.2-63.3FMercy Health St. Elizabeth Boardman HospitalComment on above:ACTH reference interval for samples collected between 7 and10 AM.Performed at: [employer] [id number] Director: Juan Hendricks PhD, Phone: [phone] GFR (CKD-EPI)> 60.0 mL/MinHocking Valley Community HospitalPharmacy Creatinine Clearance (Chem59.72[facility] HospitalNucleated erythrocytes [Presence] in Blood by Automated countOrdered By: Aries Chavez on 28-59-5286Qdwaktqpe RBC Auto Ql (Bld)0.1 /100{WBC}0-0.5FMercy Health St. Elizabeth Boardman HospitalPlatelet mean volume Auto (Bld) [Entitic vol]Ordered By: Aries Chavez on 02-44-4558Llxfdyto mean volume (Bld) [Entitic vol]6.8 fL6.3-10.7 [facility] HospitalPlatelets Auto (Bld) [#/Vol]Ordered By: Aries Chavez on 03-26-3732Maiyetvve (Bld) [#/Vol]404 10*3/hR997-704IdcszvddaHocking Valley Community HospitalPotassium [Moles/volume] in Serum or PlasmaOrdered By: Aries Chavez on 04-78-4579Urkjyyvgd [Moles/Vol]4.7 mmol/L3.5-5.1FMercy Health St. Elizabeth Boardman HospitalProtein [Mass/volume] in Serum or PlasmaOrdered By: Aries Chavez on 85-88-5666Qndwwqu [Mass/Vol]7.9 g/dL6.4-8.9[facility] HospitalRBC Auto (d) [#/Vol]Ordered By: Aries Chavez on 45-38-9526YFM (d) [#/Vol]3.32 10*6/uL3.60-5.00[facility] HospitalRandom cortisol measurementOrdered By: Aries Chavez on 10-04-2023 Cortisol [Mass/Vol]12.2 ug/dLHocking Valley Community HospitalComment on above: [facility] Laboratory mdm sr and method:[employer] DXI, POLYCLONAL ANTIBODY CORTISOL ASSAY.Reference range: AM 6 - 24 ug/dl PM <10 ug/dlSerum or plasma albumin/globulin mass ratioOrdered By: Aries Chavez on 10-04-2023 Albumin/Globulin [Mass ratio]0.8 {ratio}[facility] Valley Hospitalerum or plasma anion gap determinationOrdered By: Aries Chavez on 10-04-2023 Anion gap [Moles/Vol]9.5 mmol/L6.0-15.0[facility] Hospitalodium [Moles/volume] in Serum or PlasmaOrdered By: Aries Chavez on 10-04-2023 Sodium [Moles/Vol]125 mmol/N374-118AielyvtyhHocking Valley Community HospitalThyrotropin [Units/volume] in Serum or PlasmaOrdered By: Aries Chavez on 26-20-2151ZPL Qn1.03 m[IU]/L0.45-5.33[facility] HospitalThyroxine (T4) free [Mass/volume] in Serum or PlasmaOrdered By: Aries Chavez on 29-24-7811Tjzr T4 [Mass/Vol]1.00 ng/dL0.61-1.12[facility] HospitalUrea nitrogen [Mass/volume] in Serum or PlasmaOrdered By: Aries Chavez on 47-81-7873Qhzb nitrogen [Mass/Vol]17 mg/dL7-25[facility] HospitalWBC Auto (Bld) [#/Vol]Ordered By: Aries Chavez on 10-54-5468LJE (Bld) [#/Vol]5.8 10*3/uL 3.8-11.6FMercy Health St. Elizabeth Boardman HospitalAnisocytosis LM Ql (Bld)Ordered By: Aries Chavez on 08-60-8077Stqicpdpugmi Ql (Bld)ModerateHocking Valley Community HospitalAnisocytosis Ql (Bld)Anisocytosis [Presence] in Blood by Light microscopyHocking Valley Community HospitalAutomated erythrocytes count in urine sediment (number/area)Ordered By: Aries Chavez on 17-64-5655LIO Auto (Urine sed) [#/Area]5-9 [HPF]High0-4FMercy Health St. Elizabeth Boardman HospitalAutomated leukocytes count in urine sediment (number/area)Ordered By: Aries Chavez on 93-51-5659CXG Auto (Urine sed) [#/Area]5-9 [HPF]High04FMercy Health St. Elizabeth Boardman HospitalBacteria [Presence] in Urine by AutomatedOrdered By: Aries Chavez on 86-47-7653Hafrmvxu Auto Ql (U)Bacteria [Presence] in Urine by AutomatedNone SeenHocking Valley Community HospitalBilirubin Test strip Ql (U) Ordered By: Aries Chavez on 22-69-4406Fiatrfpie Ql (U)Bilirubin.total [Presence] in Urine by Test stripNegativeHocking Valley Community Hospital Bilirubin Ql (U)NegativeNegativeHocking Valley Community HospitalColor Auto (U) Ordered By: Aries Chavez on 81-91-8464Dsijf (U)YellowYelOhioHealthColor (U)Color of Urine by AutoYelOhioHealthErythrocytes [#/area] in Urine sediment by Automated countOrdered By: Aries Chavez on 97-16-1827TKL Auto (Urine sed) [#/Area]Erythrocytes [#/area] in Urine sediment by Automated countHigh0-4FMercy Health St. Elizabeth Boardman HospitalHypochromia LM Ql (Bld)Ordered By: Aries Chavez on 09-12-2023 Hypochromia Ql (Bld)ModerateHocking Valley Community HospitalHypochromia Ql (Bld)Hypochromia [Presence] in Blood by Light microscopyHocking Valley Community HospitalKetones Auto test strip (U) [Mass/Vol]Ordered By: Aries Chavez on 25-32-6180Selkpvo (U) [Mass/Vol]NegativeNegativeHocking Valley Community HospitalKetones (U) [Mass/Vol]Urine ketones measurement by automated test strip (mass/volume)[facility]Labor[facility] - Microbiology and Antimicrobial susceptibilityOrdered By: Aries Chavez on 19-63-6264Frockzwz identified Cx Nom (U)[facility] Bacteria identified Cx Nom (U)[facility] HospitalLaboratory - UrinalysisOrdered By: Aries Chavez on 10-94-1835Qufxbdm casts LM Ql (Urine sed)0-8 [LPF]0-8[facility] HospitalLeukocytes [#/area] in Urine sediment by Automated countOrdered By: Aries Chavez on 33-52-4511RFG Auto (Urine sed) [#/Area]Leukocytes [#/area] in Urine sediment by Automated countHigh 0-4FMercy Health St. Elizabeth Boardman HospitalMicrocytes LM Ql (Bld)Ordered By: Aries Chavez on 75-47-9933Iimqjifeps Ql (Bld)SlightHocking Valley Community HospitalMicrocytes Ql (Bld)Microcytes [Presence] in Blood by Light microscopy [facility] HospitalNitrite Test strip Ql (U)Ordered By: Aries Chavez on 70-13-6658Ffgfizq Ql (U)Nitrite [Presence] in Urine by Test strip NegativeHocking Valley Community HospitalNitrite Ql (U)NegativeNegOhioHealth Dublin Methodist HospitalNo Panel InformationOrdered By: Aries Chavez on 10-26-9007Wocuobtdtvfndrdbslz Orsjibq98.9 pg/mL7.2-63.3FMercy Health St. Elizabeth Boardman HospitalComment on above:ACTH reference interval for samples collected between 7 and10 AM.Performed at: - Lab[address] [id number] Director: Juan Hendricks PhD, Phone: [phone] detectionOrdered By: Aries Chavez on 24-05-7944Rvyvcszbqr LM Ql (Bld)Slight [facility] HospitalOvalocytes LM Ql (Bld)Ovalocyte detection [facility] HospitalPlatelet adequacy [Presence] in Blood by Light microscopyOrdered By: Aries Chavez on 81-68-7487Hesznaqgh LM Ql (Bld)Normal NormalHocking Valley Community HospitalPlatelets LM Ql (Bld)Platelet adequacy [Presence] in Blood by Light microscopyCleveland Clinic Fairview Hospital Platelet morphology finding [Identifier] in BloodOrdered By: Aries Chavez on 55-84-4423Yabvqqzd morphology finding Nom (Bld)NormalNoOhioHealth Southeastern Medical CenterPlatelet morphology finding Nom (Bld)Platelet morphology finding [Identifier] in BloodCleveland Clinic Fairview HospitalPoikilocytosis [Presence] in Blood by Light microscopyOrdered By: Aries Chavez on 60-09-7136Nlnuwmudluqcsg LM Ql (Bld)[facility] Poikilocytosis LM Ql (Bld)Poikilocytosis [Presence] in Blood by Light microscopy [facility] HospitalPolychromasia [Presence] in Blood by Light microscopyOrdered By: Aries Chavez on 35-92-5844Lehhmcrnbbdkb LM Ql (Bld) [facility] HospitalPolychromasia LM Ql (Bld)Polychromasia [Presence] in Blood by Light microscopyHocking Valley Community HospitalProtein Auto test strip (U) [Mass/Vol]Ordered By: Aries Chavez on 04-14-2629Uecokez (U) [Mass/Vol]100 mg/dLHighNegativeHocking Valley Community HospitalProtein (U) [Mass/Vol]Urine protein measurement by automated test strip (mass/volume)High NegativeHocking Valley Community HospitalRBC morphologyOrdered By: Aries Chavez on 84-01-0769LUG morphology finding Nom (Bld)N/AFirelands Regional Medical CenterRBC morphology finding Nom (Bld)RBC morphologyMiami Valley Hospitalpecific gravity Auto test strip (U) [Rel density]Ordered By: Aries Chavez on 44-04-5710Ufbviyfw gravity (U) [Rel density]1.012 1.001-1.030[facility] Hospitalpecific gravity (U) [Rel density] Specific gravity of Urine by Automated test strip1.001-1.030[facility] Hospitalquamous epithelial cells detection in urine sediment by light microscopyOrdered By: Aries Chavez on 38-19-1108Brarhuuprm cells.squamous LM Ql (Urine sed)None seen [HPF]0-[facility] HospitalEpithelial cells.squamous LM Ql (Urine sed)Squamous epithelial cells detection in urine sediment by light microscopy0-[facility] HospitalUrine bacteria detection by automated methodOrdered By: Aries Chavez on 55-67-6810Dedqwnxx Auto Ql (U)None seenNone SeenHocking Valley Community HospitalUrine clarity by refractometry automatedOrdered By: Aries Chavez on 12-16-1417Clsqljh Refractometry automated (U)ClearCleCincinnati Shriners HospitalClarity Refractometry automated (U)Urine clarity by refractometry automatedUniversity Hospitals Cleveland Medical CenterUrine culture routineOrdered By: Aries Chavez on 82-66-8839Nuamkxoj identified Cx Nom (U)2 [facility] HospitalBacteria identified Cx Nom (U)2 [facility] HospitalUrine glucose measurement by automated test strip (mass/volume)Ordered By: Aries Chavez on 39-57-8420Gkclfhw Auto test strip (U) [Mass/Vol]Normal mg/dLNormalHocking Valley Community HospitalGlucose Auto test strip (U) [Mass/Vol]Urine glucose measurement by automated test strip (mass/volume)Normal [facility] HospitalUrine hemoglobin detection by automated test stripOrdered By: Aries Chavez on 43-38-6053Vqadxzvzgv Auto test strip Ql (U)2+HighNegOhioHealth Dublin Methodist HospitalHemoglobin Auto test strip Ql (U)Urine hemoglobin detection by automated test stripHighNegOhioHealth Dublin Methodist HospitalUrine leukocyte esterase detection by automated test stripOrdered By: Aries Chavez on 28-37-4845Refgliisx esterase Auto test strip Ql (U)2+HighNegativeHocking Valley Community HospitalLeukocyte esterase Auto test strip Ql (U)Urine leukocyte esterase detection by automated test strip HighNegativeHocking Valley Community HospitalUrobilinogen Auto test strip (U) [Mass/Vol]Ordered By: Aries Chavez on 08-82-0577Tiodutxiixne (U) [Mass/Vol] Normal mg/dLNormalHocking Valley Community HospitalUrobilinogen (U) [Mass/Vol] Urine urobilinogen measurement by automated test strip (mass/volume)Normal [facility] HospitalWhole blood hypersegmented neutrophils detection by light microscopyOrdered By: Aries Chavez on 09-12-2023 Neutrophils.hypersegmented LM Ql (Bld)SlightHocking Valley Community Hospital Neutrophils.hypersegmented LM Ql (Bld)Whole blood hypersegmented neutrophils detection by light microscopyHocking Valley Community HospitalYeast detection in urine sediment by light microscopyOrdered By: Aries Chavez on 09-12-2023 Yeast LM Ql (Urine sed)None seen [HPF]None SeenHocking Valley Community Hospital Yeast LM Ql (Urine sed)Yeast detection in urine sediment by light microscopyNone SeenHocking Valley Community HospitalpH Auto test strip (U)Ordered By: Aries Chavez on 09-41-3528aV (U)6.0 [pH]5.0-9.0[facility] HospitalpH (U)Urine pH measurement by automated test strip5.0-9.0[facility] HospitalActivated partial thromboplastin time (aPTT) in platelet poor plasma by coagulation aOrdered By: Aries Chavez on 75-88-0966qFFX Coag (PPP) [Time] 28.9 s25.1-36.5FMercy Health St. Elizabeth Boardman HospitalComment on above:A hematocrit value greater than 55% may lead to inaccurate results in coagulation testing. Patientshaving hematocrit values >55% require a special collection tube for coagulation studies. Please contact the laboratory at [phone] for redraw instructions.INR in Platelet poor plasma by Coagulation assayOrdered By: Aries Chavez on 50-95-8332LIK Coag (PPP) [Relative time]1.1 {INR}[facility] HospitalComment on above:INR Therapeutic Range A) Pre- and [...] (Bld) [#/Vol] Ordered By: Aries Chavez on 86-92-5111Bahmtgewb (Bld) [#/Vol]368 10*3/uL 150-450[facility] HospitalProthrombin time (PT)Ordered By: Aries Chavez on 32-29-2619VC Coag (PPP) [Time]13.1 s9.0-12.9[facility] HospitalComment on above:A hematocrit value greater than 55% may lead to inaccurate results in coagulation testing. Patientshaving hematocrit values >55% require a special collection tube for coagulation studies. Please contact the laboratory at [phone] for redraw instructions.Alanine aminotransferase [Enzymatic activity/volume] in Serum or PlasmaOrdered By: Aries Chavez on 99-17-7859DCE [Catalytic activity/Vol]40 U/L7-52[facility] HospitalAlbumin [Mass/volume] in Serum or Plasma by Bromocresol green (BCG) dye binding methoOrdered By: Aries Chavez on 75-17-2809Jbaxszn BCG dye [Mass/Vol]3.7 g/dL3.5-5.7FMercy Health St. Elizabeth Boardman HospitalAlkaline phosphatase [Enzymatic activity/volume] in Serum or PlasmaOrdered By: Aries Chavez on 57-66-1232JZP [Catalytic activity/Vol]91 U/G50-544TpylfftoaHocking Valley Community HospitalAspartate aminotransferase [Enzymatic activity/volume] in Serum or Plasma Ordered By: Aries Chavez on 71-71-8331AXJ [Catalytic activity/Vol]12 U/L 13-39[facility] HospitalAutomated erythrocytes count in urine sediment (number/area)Ordered By: Aries Chavez on 06-96-9750MPM Auto (Urine sed) [#/Area]5-9 [HPF]0-4FMercy Health St. Elizabeth Boardman HospitalAutomated leukocytes count in urine sediment (number/area)Ordered By: Aries Chavez on 07-31-2023 WBC Auto (Urine sed) [#/Area]None seen [HPF]0-4FMercy Health St. [facility] Hospital Basophils Auto (Bld) [#/Vol]Ordered By: Aries Chavez on 61-50-0275Pfykaqmsd (Bld) [#/Vol]0.2 10*3/uL0.0-0.2FMercy Health St. Elizabeth Boardman HospitalBasophils/100 WBC Auto (Bld)Ordered By: Aries Chavez on 31-19-2701Zntsgxswb/100 WBC (Bld) 2.0 %.[facility] HospitalBilirubin Test strip Ql (U)Ordered By: Aries Chavez on 31-81-0099Mmbpumbox Ql (U)See commentNegativeHocking Valley Community HospitalComment on above:Unable to obtain accurate result due to color interference.Bilirubin.total [Mass/volume] in Serum or PlasmaOrdered By: Aries Chavez on 15-78-5378Ndcehpzyu [Mass/Vol]0.4 mg/dL0.3-1.0[facility] HospitalCalcium [Mass/volume] in Serum or PlasmaOrdered By: Aries Chavez on 80-37-8267Nhhvsai [Mass/Vol]9.6 mg/dL8.6-10.3FMercy Health St. Elizabeth Boardman HospitalCarbon dioxide, total [Moles/volume] in Serum or Plasma Ordered By: Aries Chavez on 33-06-7816AD4 [Moles/Vol]24.3 mmol/L21.0-31.0 [facility] HospitalChloride [Moles/volume] in Serum or Plasma Ordered By: Aries Chavez on 19-47-8252Etpmfnbd [Moles/Vol]94 mmol/L98-107 [facility] HospitalColor Auto (U)Ordered By: Aries Chavez on 37-02-6329Noddm (U)AmberYellowHocking Valley Community HospitalCreatinine [Mass/volume] in Serum or PlasmaOrdered By: Aries Chavez on 07-31-2023 Creatinine [Mass/Vol]0.91 mg/dL0.60-1.20[facility] Eosinophils Auto (Bld) [#/Vol]Ordered By: Aries Chavez on 07-31-2023 Eosinophils (Bld) [#/Vol]0.1 10*3/uL0.0-0.45[facility] Eosinophils/100 WBC Auto (Bld)Ordered By: Aries Chavez on 07-31-2023 Eosinophils/100 WBC (Bld)1.8 %.[facility] HospitalErythrocyte distribution width Auto (RBC) [Ratio]Ordered By: Aries Chavez on 07-31-2023 Erythrocyte distribution width (RBC) [Ratio]15.4 %11.9-15.3FMercy Health St. Elizabeth Boardman HospitalFerritin [Mass/volume] in Serum or PlasmaOrdered By: Aries Chavez on 44-99-6938Pvqliefc [Mass/Vol]342.0 ng/mL11.0-306.8[facility] HospitalGlobulin Calc (S) [Mass/Vol]Ordered By: Aries Chavez on 63-96-7802Vvjoaouw (S) [Mass/Vol]4.6 g/dLHocking Valley Community Hospital Glucose [Mass/volume] in Serum or PlasmaOrdered By: Aries Chavez on 06-94-8235Lyioyic [Mass/Vol]105 mg/oH57-832NppawudhoHocking Valley Community Hospital Comment on above:ADA recommended reference rangeRandom Glucose Reference Range is dependent on time and content of last meal. Glucose of more than 200 mg/dL in a nonstressed, ambulatory subject supports the diagnosisof Diabetes Mellitus. Hematocrit Auto (Bld) [Volume fraction]Ordered By: Aries Chavez on 84-89-5161Eteijwrhrf (Bld) [Volume fraction]22.5 %34.0-46.4FMercy Health St. Elizabeth Boardman HospitalHemoglobin [Mass/volume] in BloodOrdered By: Aries Chavez on 74-27-0177Llbsbbifcc (Bld) [Mass/Vol]7.3 g/dL11.8-15.4FMercy Health St. Elizabeth Boardman HospitalIron [Mass/volume] in Serum or PlasmaOrdered By: Aries Chavez on 22-46-6350Owng [Mass/Vol]24 ug/xW02-298JwhdqlhbtHocking Valley Community HospitalIron binding capacity [Mass/volume] in Serum or PlasmaOrdered By: Aries Chavez on 88-73-1712Anqz binding capacity [Mass/Vol]304 ug/rN750-585WnebwfyysHocking Valley Community HospitalIron saturation [Mass Fraction] in Serum or PlasmaOrdered By: Aries Chavez on 81-01-7838Pjit saturation [Mass fraction]7.9 %20-50 [facility] HospitalKetones Auto test strip (U) [Mass/Vol]Ordered By: Aries Chavez on 16-37-5101Mgltzbo (U) [Mass/Vol]See commentNegative [facility] HospitalComment on above:Unable to obtain accurate result due to color interference.Laboratory - Microbiology and Antimicrobial susceptibilityOrdered By: Aries Chavez on 31-92-4193Qgkzzohf identified Cx Nom (U)[facility] HospitalBacteria identified Cx Nom (U)[facility] HospitalLaboratory - UrinalysisOrdered By: Aries Chavez on 98-83-5681Zvzncrk casts LM Ql (Urine sed)None seen [LPF]0-8[facility] HospitalLeukocytes [#/volume] corrected for nucleated erythrocytes in Blood by Automated counOrdered By: Aries Chavez on 68-68-2821JQL corrected for nucl RBC Auto (Bld) [#/Vol]8.2 10*3/uL3.8-11.6FMercy Health St. Elizabeth Board[facility] HospitalLymphocytes Auto (Bld) [#/Vol]Ordered By: Aries Chavez on 07-31-2023 Lymphocytes (Bld) [#/Vol]1.8 10*3/uL1.00-4.8[facility] Lymphocytes/100 WBC Auto (Bld)Ordered By: Aries Chavez on 07-31-2023 Lymphocytes/100 WBC (Bld)22.3 %.[facility] HospitalMC Auto (RBC) [Entitic mass]Ordered By: Aries Chavez on 50-03-8267FYI (RBC) [Entitic mass]22.8 pg24.7-34.3FMercy Health St. Elizabeth Boardman HospitalMCHC Auto (RBC) [Mass/Vol] Ordered By: Aries Chavez on 35-00-2008HJCL (RBC) [Mass/Vol]32.3 g/dL 32.0-35.0[facility] HospitalMCV Auto (RBC) [Entitic vol]Ordered By: Aries Chavez on 94-70-3229XOE (RBC) [Entitic vol]70.8 eK34-962ZedmfmqquHocking Valley Community HospitalMonocytes Auto (Bld) [#/Vol]Ordered By: Aries Chavez on 40-73-7299Azbjtcsjf (Bld) [#/Vol]0.7 10*3/uL0.0-0.8[facility] HospitalMonocytes/100 WBC Auto (Bld)Ordered By: Aries Chavez on 66-07-2722Dgglmlusw/100 WBC (Bld)8.2 %.[facility] Neutrophils Auto (Bld) [#/Vol]Ordered By: Aries Chavez on 07-31-2023 Neutrophils (Bld) [#/Vol]5.4 10*3/uL1.8-7.7FMercy Health St. [facility] Neutrophils/100 WBC Auto (Bld)Ordered By: Aries Chavez on 07-31-2023 Neutrophils/100 WBC (Bld)65.7 %.[facility] HospitalNitrite Test strip Ql (U)Ordered By: Aries Chavez on 55-35-0754Yvytvlj Ql (U)See comment NegativeHocking Valley Community HospitalComment on above:Unable to obtain accurate result due to color interference.No Panel InformationOrdered By: Aries Chavez on 98-77-5194Mnalaztlb GFR (CKD-EPI)> 60.0 mL/MinHocking Valley Community HospitalPharmacy Creatinine Clearance (Chem53.24[facility] HospitalNucleated erythrocytes [Presence] in Blood by Automated countOrdered By: Aries Chavez on 16-43-1611Zrqjqtlqs RBC Auto Ql (Bld)0.1 /100{WBC}0-0.5FMercy Health St. Elizabeth Board[facility] HospitalPlatelet mean volume Auto (Bld) [Entitic vol]Ordered By: Aries Chavez on 06-94-8161Pkgrgswu mean volume (Bld) [Entitic vol]7.7 fL6.3-10.7FMercy Health St. Elizabeth Board[facility] HospitalPlatelets Auto (Bld) [#/Vol]Ordered By: Aries Chavez on 08-98-9115Jszyrmhtp (Bld) [#/Vol] 487 10*3/eC524-782McvhzrxdnHocking Valley Community HospitalPotassium [Moles/volume] in Serum or PlasmaOrdered By: Aries Chavez on 44-86-5522Dxdicmnss [Moles/Vol] 5.3 mmol/L3.5-5.1FMercy Health St. Elizabeth Board[facility] HospitalProtein Auto test strip (U) [Mass/Vol]Ordered By: Aries Chavez on 40-28-9465Desuire (U) [Mass/Vol]See commentNegativeHocking Valley Community HospitalComment on above:Unable to obtain accurate result due to color interference.Protein [Mass/volume] in Serum or PlasmaOrdered By: Aries Chavez on 78-39-0953Fetceqt [Mass/Vol]8.3 g/dL 6.4-8.9[facility] HospitalRBC Auto (Bld) [#/Vol]Ordered By: Aries Chavez on 35-55-1367QMW (Bld) [#/Vol]3.18 10*6/uL3.60-5.00[facility] Hospitalerum or plasma albumin/globulin mass ratioOrdered By: Aries Chavez on 50-26-6683Xrcbcrj/Globulin [Mass ratio]0.8 {ratio}[facility] Hospitalerum or plasma anion gap determinationOrdered By: Aries Chavez on 71-69-2408Jixsc gap [Moles/Vol]14.0 mmol/L6.0-15.0[facility] Hospitalodium [Moles/volume] in Serum or PlasmaOrdered By: Aries Chavez on 25-47-2623Wpsepz [Moles/Vol]127 mmol/K091-548GxtzngakiMiami Valley Hospitalpecific gravity Auto test strip (U) [Rel density]Ordered By: Aries Chavez on 92-76-2368Lezknfrk gravity (U) [Rel density]1.015 1.001-1.030[facility] Hospitalquamous epithelial cells detection in urine sediment by light microscopyOrdered By: Aries Chavez on 07-31-2023 Epithelial cells.squamous LM Ql (Urine sed)0-1 [HPF]0-2FMercy Health St. Elizabeth Boardman HospitalTransferrin [Mass/volume] in Serum or PlasmaOrdered By: Aries Chavez on 81-99-1338Ffuukvyoqtk [Mass/Vol]217 mg/xV398-782TpmfmdwnwHocking Valley Community HospitalUrea nitrogen [Mass/volume] in Serum or PlasmaOrdered By: Aries Chavez on 39-85-4145Pwih nitrogen [Mass/Vol]15 mg/dL7-25[facility] HospitalUrine bacteria detection by automated methodOrdered By: Aries Chavez on 33-65-0246Gjsaqafv Auto Ql (U)None seenNone [facility] HospitalUrine clarity by refractometry automatedOrdered By: Aries Chavez on 03-56-6517Envlcoo Refractometry automated (U)TurbidCleCincinnati Shriners HospitalUrine culture routineOrdered By: Aries Chavez on 05-58-6051Zqqptzsc identified Cx Nom (U)2 [facility] Bacteria identified Cx Nom (U)2 [facility] HospitalUrine glucose measurement by automated test strip (mass/volume)Ordered By: Aries Chavez on 60-51-5274Bdbnzff Auto test strip (U) [Mass/Vol]See commentNoal [facility] HospitalComment on above:Unable to obtain accurate result due to color interference.Urine hemoglobin detection by automated test stripOrdered By: Aries Chavez on 78-88-0106Apsbmtkgej Auto test strip Ql (U)See commentNegOhioHealth Dublin Methodist HospitalComment on above:Unable to obtain accurate result due to color interference.Urine leukocyte esterase detection by automated test stripOrdered By: Aries Chavez on 07-31-2023 Leukocyte esterase Auto test strip Ql (U)See commentNegOhioHealth Dublin Methodist HospitalComment on above:Unable to obtain accurate result due to color interference.Urobilinogen Auto test strip (U) [Mass/Vol]Ordered By: Aries Chavez on 94-30-3402Jaixvhtmhbrn (U) [Mass/Vol]See commentNormalHocking Valley Community HospitalComment on above:Unable to obtain accurate result due to color interference.WBC Auto (Bld) [#/Vol]Ordered By: Aries Chavez on 93-68-1381MPX (Bld) [#/Vol]8.2 10*3/uL3.8-11.6FMercy Health St. [facility] pH Auto test strip (U)Ordered By: Aries Chavez on 36-72-7638oM (U)See comment5.0-9.0[facility] HospitalComment on above:Unable to obtain accurate result due to color interference.PROF CHEM 8 (BAS METB)on 02-28-2023 Anion gap [Moles/Vol]13.5 mmol/LNormalFlower HospitalComment on above: Performed By: #### NA #### [facility] [address] [address] [address] Allen SmithCalcium [Mass/Vol]9.6 mg/dLNormal8.5-10.1[facility] Comment on above:Performed By: #### NA #### [facility] [address] [address] [address] Allen SmithChloride [Moles/Vol]95 mmol/LCritically wgc64-897Ihw [facility] HospitalComment on above:Performed By: #### NA #### [facility] [address] [address] [address] Allen SmithCO2 [Moles/Vol]27.1 mmol/UXitkkg29.0-32.0[facility] Comment on above:Performed By: #### NA #### [facility] [address] [address] [address] Allen SmithCreatinine [Mass/Vol]0.93 mg/dLNormal0.55-1.02The [facility] HospitalComment on above:Performed By: #### NA #### [facility] [address] [address] [address] Villa ChangEGFR-AF ITALIAN>60Normal>=60The [facility] HospitalComment on above:Performed By: #### NA #### [facility] [address] [address] [address] Allen SunGFR-NON AF LEYCGJTE35 mL/min/1.34p1Glpzxc>=60The [facility] HospitalComment on above:Performed By: #### NA #### [facility] [address] [address] [address] Allen SmithGlucose [Mass/Vol]123 mg/dLCritically brsp57-550Uiw [facility] HospitalComment on above:Performed By: #### NA #### [facility] [address] [address] [address] Allen SmithPotassium [Moles/Vol]4.6 mmol/LNormal3.5-5.1[facility] Comment on above:Performed By: #### NA #### [facility] [address] [address] [address] Allen SmithSodium [Moles/Vol]131 mmol/LCritically lbe871-717Dda [facility] HospitalComment on above:Performed By: #### NA #### [facility] [address] [address] [address] Allen SmithUrea nitrogen [Mass/Vol]8.0 mg/dLNormal7.0-18.0The [facility] HospitalComment on above:Performed By: #### NA #### [facility] [address] [address] [address] Allen Morgan nitrogen/Creatinine [Mass ratio]8.6 mg/mgNormalThe [facility]zer HospitalComment on above:Performed By: #### NA #### [facility] [address] [address] [address] lAlen De La Fuente 05-15-5412Znbzjeynmid peptide B (Bld) [Mass/Vol]1572.0 pg/mLCritically high<=900.0The [facility] HospitalComment on above:Performed By: #### NA #### [facility] [address] [address] [address] Allen Cabral AUTO DIFFon [id number] #0.1 103/ulNormal0.0-0.1The [facility] HospitalComment on above:Performed By: #### CBC #### [facility] [address] [address] [address] Allen SmithBasophils/100 WBC (Bld)0.7 %Normal0.2-2.0[facility] Comment on above:Performed By: #### CBC #### [facility] [address] [address] [address] Allen Francois #0.2 103/ulNormal0.0-0.7The [facility] HospitalComment on above: Performed By: #### CBC #### [facility] [address] [place] [address] Dr. Allen Sunosinophils/100 WBC (Bld)2.8 %Normal0.9-7.0[facility] Comment on above:Performed By: #### CBC #### [facility] [address] [place] [address] Dr. Allen Sunrythrocyte distribution width (RBC) [Ratio]15.2 %Critically high 11.0-15.0The [facility] HospitalComment on above:Performed By: #### CBC #### [facility] [address] [place] [address] Dr. Allen SmithHematocrit (Bld) [Volume fraction]29.9 %Critically low36.0-48.0 The [facility] HospitalComment on above:Performed By: #### CBC #### [facility] [address] [place] [address] Dr. Allen SmithHemoglobin (Bld) [Mass/Vol]9.4 g/dLCritically low12.0-16.0The [facility] HospitalComment on above:Performed By: #### CBC #### [facility] [address] [place] [address] Dr. Allen Diaz #0.03 10e3/ulNormal0.00-0.03The [facility] HospitalComment on above:Performed By: #### CBC #### [facility] [address] [address] [address] Allen Diaz %0.4 %Normal0.0-0.5The [facility] on above: Performed By: #### CBC #### [facility] [address] [place] [address] Dr. Allen Canales #1.5 103/ulNormal1.2-3.8The [facility] HospitalComment on above:Performed By: #### CBC #### [facility] [address] [place] [address] Dr. Allen Paulhocytes/100 WBC (Bld)18.0 %Critically low20.5-60.0The [facility] on above:Performed By: #### CBC #### [facility] [address] [place] [address] Dr. Allen VelaUAL DIFF REQNONormalThe [facility]zer HospitalComment on above: Performed By: #### CBC #### [facility] [address] [place] [address] Dr. Allen Nielsen (RBC) [Entitic mass]24.7 pgCritically low26.7-34.0The [facility] on above:Performed By: #### CBC #### [facility] [address] [place] [address] Dr. Allen Nielsen (RBC) [Mass/Vol]31.4 g/bMCwbkar74.9-35.2The [facility] on above:Performed By: #### CBC #### [facility] [address] [place] [address] Dr. Allen Nielsen (RBC) [Entitic vol]78.7 fLCritically low81.0-99.0The [facility] on above:Performed By: #### CBC #### [facility] [address] [place] [address] Dr. Allen Lilly #0.8 103/ulNormal0.3-0.8The [facility] Northment on above:Performed By: #### CBC #### [facility] [address] [address] [address] Allen Cottonocytes/100 WBC (Bld)9.5 %Normal1.7-12.0[facility] Comment on above:Performed By: #### CBC #### [facility] [address] [address] [address] Allen SethiUT #5.7 103/ulNormal1.4-6.5The [facility] HospitalComment on above:Performed By: #### CBC #### [facility] [address] [place] [address] Dr. Allen Sethiutrophils/100 WBC (Bld)68.6 %Hrknko38.0-75.0The [facility] HospitalComment on above:Performed By: #### CBC #### [facility] [address] [place] [address] Dr. Allen SmithPlatelet mean volume (Bld) [Entitic vol]10.2 fLNormal9.5-13.5The [facility] HospitalComment on above:Performed By: #### CBC #### [facility] [address] [place] [address] Dr. Allen SmithPLT324 103/slJknlyw230-326Cnp [facility] HospitalComment on above: Performed By: #### CBC #### [facility] [address] [place] [address] Dr. Allen SmithRBC3.80 106/ulCritically low4.20-5.40The [facility] HospitalComment on above:Performed By: #### CBC #### [facility] [address] [place] [address] Dr. Allen SmithWBC8.3 103/ulNormal4.0-11.0The [facility] HospitalComment on above: Performed By: #### CBC #### [facility] [address] [place] [address] Dr. Allen SmithPROF CHEM 8 (BAS METB)on 59-72-8231Wvrkq gap [Moles/Vol]7.5 mmol/LNormalThe [facility]zer HospitalComment on above:Performed By: #### NA #### [facility] [address] [address] [address] Allen SmithCalcium [Mass/Vol]9.1 mg/dLNormal8.5-10.1[facility] Comment on above:Performed By: #### NA #### [facility] [address] [address] [address] Allen SmithChloride [Moles/Vol]97 mmol/LCritically uti74-678Pvc [facility] HospitalComment on above:Performed By: #### NA #### [facility] [address] [address] [address] Allen SmithCO2 [Moles/Vol]30.9 mmol/GVenfil59.0-32.0[facility] Comment on above:Performed By: #### NA #### [facility] [address] [address] [address] Allen SmithCreatinine [Mass/Vol]0.84 mg/dLNormal0.55-1.02The [facility] HospitalComment on above:Performed By: #### NA #### [facility] [address] [address] [address] Allen SunGFR-AF ITALIAN>60Normal>=60The [facility] HospitalCombr[facility] on above:Performed By: #### NA #### [facility] [address] [address] [address] Allen SunGFR-NON AF ITALIAN>60Normal>=60The [facility] HospitalComment on above:Performed By: #### NA #### [facility] [address] [address] [address] Allen SmithGlucose [Mass/Vol]111 mg/dLCritically wmlj02-616Aij [facility] HospitalComment on above:Performed By: #### NA #### [facility] [address] [address] [address] Allen SmithPotassium [Moles/Vol]4.4 mmol/LNormal3.5-5.1[facility] Comment on above:Performed By: #### NA #### [facility] [address] [address] [address] Allen Lucerodium [Moles/Vol]131 mmol/LCritically cfo645-941Wxf [facility] HospitalCombronson [facility] on above:Performed By: #### NA #### [facility] [address] [address] [address] Allen Morgan nitrogen [Mass/Vol]8.0 mg/dLNormal7.0-18.0The [facility] HospitalCombr[facility] on above:Performed By: #### NA #### [facility] [address] [address] [address] Allen Morgan nitrogen/Creatinine [Mass ratio]9.5 mg/mgNoTriHealth Bethesda Butler HospitalCombronson lakeview hospital on above:Performed By: #### NA #### [facility] [address] [place] [address] Dr. Allen MANZANO [facility] MODEVENTILATORMadison HealthComment on above:Performed By: #### ABG #### [facility] [address] [place] [address] Dr. Allen Irwin TESTPositiveMadison HealthCombronson lakeview hospital on above: Performed By: #### ABG #### [facility] [address] [place] [address] Dr. Allen Jackson excess Calc (Bld) [Moles/Vol]-2.5000 mmol/LCritically low -2.0-2.0The [facility] HospitalCombronson [facility] hospital on above:Performed By: #### ABG #### [facility] [address] [place] [address] Dr. Allen De La Rosa PRESSUREMadison HealthCombronson lakeview hospital on above: Performed By: #### ABG #### [facility] [address] [place] [address] Dr. Allen SmithCPAPMadison HealthCombronson lakeview hospital on above:Performed By: #### ABG #### [facility] [address] [place] [address] Dr. Allen SmithFIO240.00 %NormalThe [facility] HospitalComment on above:Performed By: #### ABG #### [facility] [address] [address] [address] Allen SmithHCO3 (Bld) [Moles/Vol]24.1 mmol/KQnlbva87.0-26.0The [facility] HospitalComment on above:Performed By: #### ABG #### [facility] [address] [address] [address] Allen SmithLPMNormalThe [facility] HospitalComment on above:Performed By: #### ABG #### [facility] [address] [address] [address] Allen SmithMINHolzer Health SystemComment on above: Performed By: #### ABG #### [facility] [address] [place] [address] Dr. Allen SmithOxygen (Bld) [Partial pressure]85.1 mm[Hg]Stkwyn97.0-100.0The [facility] HospitalComment on above:Performed By: #### ABG #### [facility] [address] [place] [address] Dr. Allen SmithOxygen saturation in Blood96.2 %Dkokvx38.0-100.0The [facility] HospitalComment on above:Performed By: #### ABG #### [facility] [address] [address] [address] Allen SmithPCO250.1 mmHgCritically high35.0-45.0The [facility] HospitalComment on above:Performed By: #### ABG #### [facility] [address] [address] [address] Allen SmithGbhggDZRX2FkausaQqr[address] [place], [place] [address]Comment on above:Performed By: #### ABG #### [facility] [address] [place] [address] Dr. Allen SmithpH (Bld)7.290 [pH]Critically low7.350-7.450The [facility] on above:Performed By: #### ABG #### [facility] [address] [address] [address] Allen WangPNOhioHealth Mansfield Hospital on above:Performed By: #### ABG #### [facility] [address] [address] [address] Allen SmithUC Medical CenterCombronson lakeview hospital on above:Performed By: #### ABG #### [facility] [address] [address] [address] Allen McgeeUNCTURE [facility] CenterCombronson lake[facility] on above: Performed By: #### ABG #### [facility] [address] [address] [address] Allen Melgar[address] [place] [address] on above:Performed By: #### ABG #### [facility] [address] [address] [address] Allen Barker MODEHolzer Medical Center – JacksonCombronson lakeview hospital on above:Performed By: #### ABG #### [facility] [address] [address] [address] Allen Blair450 MLNormalFlower HospitalCombronson lakeview hospital on above:Result Comment: Previously reported as: 400 On 01/25/2023 17:03 By [id number] By: #### ABG #### [facility] [address] [address] [address] Allen Smith MODENASAL CANNULAMadison HealthCombronson lakeview hospital on above: Performed By: #### TSH #### [facility] [address] [address] [address] Allen Irwin TESTPositiveMadison HealthCombronson lakeview hospital on above: Performed By: #### TSH #### [facility] [address] [address] [address] Allen Jackson excess Calc (Bld) [Moles/Vol]-2.9000 mmol/LCritically low -2.0-2.0[facility] on above:Performed By: #### TSH #### [facility] [address] [address] [address] Allen De La Rosa [facility] CenterCombr[facility] on above: Performed By: #### TSH #### [facility] [address] [address] [address] Allen SmithAPMadison HealthCombronson lakeview hospital on above:Performed By: #### TSH #### [facility] [address] [address] [address] Allen ChingYuzyyUNA6NebeuzJac[address] on above:Performed By: #### TSH #### [facility] [address] [address] [address] Allen SmithHCO3 (Bld) [Moles/Vol]24.2 mmol/TRibtya13.0-26.0The [facility] on above:Performed By: #### TSH #### [facility] [address] [address] [address] Allen SmithDwtgwOFC8PvuvkaSrq[address] on above:Performed By: #### TSH #### [facility] [address] [address] [address] Allen NielsonHolzer Health SystemCombronson lakeview hospital on above: Performed By: #### TSH #### [facility] [address] [address] [address] Allen SmithOxygen (Bld) [Partial pressure]70.6 mm[Hg]Critically low 80.0-100.0The [facility] on above:Performed By: #### TSH #### [facility] [address] [address] [address] Allen SmithOxygen saturation in Blood91.5 %Critically low95.0-100.0The [facility] on above:Performed By: #### TSH #### [facility] [address] [address] [address] Allen SmithPCO254.7 mmHgCritically high35.0-45.0The [facility] on above:Performed By: #### TSH #### [facility] [address] [address] [address] Allen SmithCleveland Clinic Akron General Lodi HospitalComment on above:Performed By: #### TSH #### [facility] [address] [address] [address] Allen Malin (Bld)7.255 [pH]Critically low7.350-7.450The [facility] on above:Performed By: #### TSH #### [facility] [address] [address] [address] Allen Kincaidatrium health pineville rehabilitation hospitalThe [facility] HospitalComment on above:Performed By: #### TSH #### [facility] [address] [address] [address] Villa [facility] Medical CenterComment on above:Performed By: #### TSH #### [facility] [address] [address] [address] Allen Mcneil [facility] Health CenterComment on above: Performed By: #### TSH #### [facility] [address] [address] [address] Allen JamesFirelands Regional Medical Center South CampusComment on above:Performed By: #### TSH #### [facility] [address] [place] [address] Dr. Allen SmithPremier Health [facility] NorthCombronson lakeview hospital on above:Performed By: #### TSH #### [facility] [address] [place] [address] Dr. Allen SmithMercer County Community HospitalComment on above:Performed By: #### TSH #### [facility] [address] [address] [address] Allen De La Fuente 22-05-5142Jzgvlamhiwn peptide B (Bld) [Mass/Vol]35246.0 pg/mLCritically high<=900.0[facility] on above:Performed By: #### BNP, CMP #### [facility] [address] [place] [address] Dr. Allen JEFFERSON 3-6on 37-43-4560PA [Catalytic activity/Vol]346 U/L Critically huja00-904Hcu [facility] Northment on above:Performed By: #### TSH #### [facility] [address] [place] [address] Dr. Allen Hager.MB [Mass/Vol]15.70 ng/mLCritically high<=3.60The [facility] HospitalComment on above:Performed By: #### TSH #### [facility] [address] [place] [address] Dr. Allen AngelesTROP1206.7 pg/mLCritically high4.0-51.3[facility] Comment on above:Result Comment: CUT-OFF POINTS HAVE BEEN ESTABLISHED BASED ON THE FOURTH UNIVERSAL DEFINITIONS OF MYOCARDIAL INFARCTION. THE UPPER REFERENCE LIMIT (URL) OF TROPONIN, DEFINED THE 99TH PERCENTILE OF cTnI DISTRIBUTION IN A REFERENCE POPULATION, HAS BEEN CONFIRMED THE DECISION THRESHOLD FOR MO DIAGNOSIS.Performed By: #### TSH #### [facility] [address] [place] [address] Dr. Allen Cabral AUTO DIFFon [id number] #0.0 103/ulNormal0.0-0.1The [facility] HospitalCombronson lakeview hospital on above:Performed By: #### TSH #### [facility] [address] [place] [address] Dr. Allen SmithBasophils/100 WBC (Bld)0.1 %Critically low0.2-2.0The [facility] HospitalCombronson lakeview hospital on above:Performed By: #### TSH #### [facility] [address] [place] [address] Dr. Allen Francois #0.0 103/ulNormal0.0-0.7The [facility] HospitalCombronson lakeview hospital on above: Performed By: #### TSH #### [facility] [address] [place] [address] Dr. Allen Sunosinophils/100 WBC (Bld)0.0 %Critically low0.9-7.0The [facility] HospitalCombronson lakeview hospital on above:Performed By: #### TSH #### [facility] [address] [address] [address] Allen Sunrythrocyte distribution width (RBC) [Ratio]13.4 %Omehjq59.0-15.0 Flower HospitalComment on above:Performed By: #### TSH #### [facility] [address] [place] [address] Dr. Allen SmithHematocrit (Bld) [Volume fraction]30.2 %Critically low36.0-48.0 The [facility] HospitalComment on above:Performed By: #### TSH #### [facility] [address] [place] [address] Dr. Allen SmithHemoglobin (Bld) [Mass/Vol]9.9 g/dLCritically low12.0-16.0The [facility] HospitalComment on above:Performed By: #### TSH #### [facility] [address] [place] [address] Dr. Allen Diaz #0.05 10e3/ulCritically high0.00-0.03[facility] Comment on above:Performed By: #### TSH #### [facility] [address] [place] [address] Dr. Allen Diaz %0.4 %Normal0.0-0.5The [facility] HospitalCombronson lakeview hospital on above: Performed By: #### TSH #### [facility] [address] [place] [address] Dr. Allen PaulH #0.3 103/ulCritically low1.2-3.8[facility] Comment on above:Performed By: #### TSH #### [facility] [address] [place] [address] Dr. Allen Devimphocytes/100 WBC (Bld)2.5 %Critically low20.5-60.0[facility] on above:Performed By: #### TSH #### [facility] [address] [place] [address] Dr. Allen VelaUAL DIFF REQNONormalThe [facility] HospitalComment on above: Performed By: #### TSH #### [facility] [address] [address] [address] Allen Nielsen (RBC) [Entitic mass]24.9 pgCritically low26.7-34.0The [facility] HospitalComment on above:Performed By: #### TSH #### [facility] [address] [place] [address] Dr. Allen Nielsen (RBC) [Mass/Vol]32.8 g/nZQmjkyd92.9-35.2The [facility] HospitalComment on above:Performed By: #### TSH #### [facility] [address] [place] [address] Dr. Allen Nielsen (RBC) [Entitic vol]76.1 fLCritically low81.0-99.0The [facility] HospitalComment on above:Performed By: #### TSH #### [facility] [address] [place] [address] Dr. Allen Lilly #0.5 103/ulNormal0.3-0.8The [facility] HospitalComment on above:Performed By: #### TSH #### [facility] [address] [place] [address] Dr. Allen Cottonocytes/100 WBC (Bld)3.7 %Normal1.7-12.0[facility] Comment on above:Performed By: #### TSH #### [facility] [address] [place] [address] Dr. Allen SethiUT #12.2 103/ulCritically high1.4-6.5[facility] Comment on above:Performed By: #### TSH #### [facility] [address] [place] [address] Dr. Allen Sethiutrophils/100 WBC (Bld)93.3 %Critically high43.0-75.0The [facility] HospitalComment on above:Performed By: #### TSH #### [facility] [address] [place] [address] Dr. Allen Garcia mean volume (Bld) [Entitic vol]10.3 fLNormal9.5-13.5The [facility] HospitalComment on above:Performed By: #### TSH #### [facility] [address] [address] [address] Allen SmithPLT263 103/opZdexwa244-354Czs [facility] HospitalCombr[facility] on above: Performed By: #### TSH #### [facility] [address] [place] [address] Dr. Allen SmithRBC3.97 106/ulCritically low4.20-5.40The [facility] HospitalComment on above:Performed By: #### TSH #### [facility] [address] [place] [address] Dr. Allen SmithWBC13.0 103/ulCritically high4.0-11.0The [facility] HospitalCombronson [facility] on above:Performed By: #### TSH #### [facility] [address] [place] [address] Dr. Allen MitchellSO #0.0 103/ulNormal0.0-0.1The [facility] HospitalCombronson [facility] on above:Performed By: #### NA #### [facility] [address] [place] [address] Dr. Allen Mitchellsophils/100 WBC (Bld)0.1 %Critically low0.2-2.0The [facility] on above:Performed By: #### NA #### [facility] [address] [place] [address] Dr. Allen Francois #0.0 103/ulNormal0.0-0.7The [facility] HospitalCombronson [facility] on above: Performed By: #### NA #### [facility] [address] [place] [address] Dr. Allen Sunosinophils/100 WBC (Bld)0.0 %Critically low0.9-7.0The [facility] on above:Performed By: #### NA #### [facility] [address] [place] [address] Dr. Allen Sunrythrocyte distribution width (RBC) [Ratio]13.4 %Usialj78.0-15.0 The [facility]leton HospitalComment on above:Performed By: #### NA #### [facility] [address] [place] [address] Dr. Allen SmithHematocrit (Bld) [Volume fraction]29.5 %Critically low36.0-48.0 F[facility] HospitalComment on above:Performed By: #### NA #### [facility] [address] [place] [address] Dr. Allen SmithHemoglobin (Bld) [Mass/Vol]9.6 g/dLCritically low12.0-16.0F[facility] HospitalComment on above:Performed By: #### NA #### [facility] [address] [place] [address] Dr. Allen SmithIG #0.04 10e3/ulCritically high0.00-0.03[facility] Comment on above:Performed By: #### NA #### [facility] [address] [place] [address] Dr. Allen Diaz %0.4 %Normal0.0-0.5ThSelect Medical Specialty Hospital - Cleveland-FairhillComment on above: Performed By: #### NA #### [facility] [address] [place] [address] Dr. Allen Canales #0.4 103/ulCritically low1.2-3.8[facility] Comment on above:Performed By: #### NA #### [facility] [address] [place] [address] Dr. Allen Devimphocytes/100 WBC (Bld)3.5 %Critically low20.5-60.0F[facility] HospitalComment on above:Performed By: #### NA #### [facility] [address] [place] [address] Dr. Allen VelaUAL DIFF REQNONormalThe [facility] HospitalComment on above: Performed By: #### NA #### [facility] [address] [place] [address] Dr. Allen Valladares (RBC) [Entitic mass]24.4 pgCritically low26.7-34.0F[facility] HospitalComment on above:Performed By: #### NA #### [facility] [address] [place] [address] Dr. Allen Nielsen (RBC) [Mass/Vol]32.5 g/oEGyvznf02.9-35.2The [facility] HospitalComment on above:Performed By: #### NA #### [facility] [address] [place] [address] Dr. Allen Nielsen (RBC) [Entitic vol]74.9 fLCritically low81.0-99.0The [facility] HospitalComment on above:Performed By: #### NA #### [facility] [address] [place] [address] Dr. Allen Lilly #0.4 103/ulNormal0.3-0.8The [facility] HospitalComment on above:Performed By: #### NA #### [facility] [address] [place] [address] Dr. Allen Cottonocytes/100 WBC (Bld)3.5 %Normal1.7-12.0[facility] Comment on above:Performed By: #### NA #### [facility] [address] [place] [address] Dr. Allen Darden #10.2 103/ulCritically high1.4-6.5[facility] Comment on above:Performed By: #### NA #### [facility] [address] [place] [address] Dr. Aleln Silvermanophils/100 WBC (Bld)92.5 %Critically high43.0-75.0The [facility] HospitalComment on above:Performed By: #### NA #### [facility] [address] [place] [address] Dr. Allen Sellerslet mean volume (Bld) [Entitic vol]10.9 fLNormal9.5-13.5The [facility] HospitalComment on above:Performed By: #### NA #### [facility] [address] [place] [address] Dr. Villa SqsycRVT725 103/jmTyuijq644-572Teh [facility] HospitalComment on above: Performed By: #### NA #### [facility] [address] [place] [address] Dr. Allen SmithRBC3.94 106/ulCritically low4.20-5.40The [facility]zer HospitalComment on above:Performed By: #### NA #### [facility] [address] [place] [address] Dr. Villa ItxnmILF88.0 103/ulNormal4.0-11.0The [facility] HospitalComment on above:Performed By: #### NA #### [facility] [address] [place] [address] Dr. Villa ChangECHOCARDIO M/2D COMPLETEon [id number] M/2D COMPLETE Patient: PERLA IBARRA Exam Date: 01/25/2023 : 1955 Gender:F Ordering : DOMINGA GODWIN . Admission #: [id number] Family : DR FREDDY BARRAZA M.D. Order #: [id number] CLICK HERE TO VIEW EXAM ECHOCARDIOGRAM REPORT [...] by: Robbi Henderson M.D. on 01/25/2023 at 15:39[facility] 39-47-9873Rueilw [Moles/Vol]128 mmol/LCritically kaw462-644Xbr [facility] HospitalComment on above:Performed By: #### NA #### [facility] [address] [place] [address] Dr. Allen Lucerodium [Moles/Vol]122 mmol/LCritically sdy687-705Sdx [facility] HospitalComment on above:Performed By: #### TSH #### [facility] [address] [place] [address] Dr. Allen Lucerodium [Moles/Vol]122 mmol/LCritically flh960-661Inn [facility] HospitalComment on above:Performed By: #### NA #### [facility] [address] [place] [address] Dr. Allen Bishop 14(COMP METB)on 61-69-6751Qkuoujy [Mass/Vol]2.8 g/dL Critically low3.4-5.0The [facility] HospitalComment on above:Performed By: #### BNP, CMP #### [facility] [address] [place] [address] Dr. Allen SmithAlbumin/Globulin [Mass ratio]0.5 {ratio}NormalThe [facility]zer HospitalComment on above:Performed By: #### BNP, CMP #### [facility] [address] [place] [address] Dr. Allen Noel [Catalytic activity/Vol]69 U/PYvhcnh95-769Hji [facility] HospitalComment on above:Performed By: #### BNP, CMP #### [facility] [address] [place] [address] Dr. Allen King [Catalytic activity/Vol]57 U/LDmgkba91-36Ogw [facility] HospitalComment on above:Performed By: #### BNP, CMP #### [facility] [address] [address] [address] Allen Bower gap [Moles/Vol]16.1 mmol/LNormalFlower Hospital Comment on above:Performed By: #### BNP, CMP #### [facility] [address] [place] [address] Dr. Allen SmithAST [Catalytic activity/Vol]41 U/LCritically dxyo14-95Rqw [facility] HospitalComment on above:Performed By: #### BNP, CMP #### [facility] [address] [place] [address] Dr. Allen SmithBilirubin [Mass/Vol]0.2 mg/dLNormal0.2-1.0[facility] Comment on above:Performed By: #### BNP, CMP #### [facility] [address] [place] [address] Dr. Allen SmithCalcium [Mass/Vol]8.7 mg/dLNormal8.5-10.1[facility] Comment on above:Performed By: #### BNP, CMP #### [facility] [address] [place] [address] Dr. Allen SmithChloride [Moles/Vol]88 mmol/LCritically vij86-514Dvu [facility] HospitalComment on above:Performed By: #### BNP, CMP #### [facility] [address] [place] [address] Dr. Allen SmithCO2 [Moles/Vol]22.6 mmol/LPoujld82.0-32.0[facility] Comment on above:Performed By: #### BNP, CMP #### [facility] [address] [place] [address] Dr. Allen SmithCreatinine [Mass/Vol]0.83 mg/dLNormal0.55-1.02The [facility] HospitalComment on above:Performed By: #### BNP, CMP #### [facility] [address] [place] [address] Dr. Allen SunGFR-AF ITALIAN>60Normal>=60The [facility] HospitalComment on above:Performed By: #### BNP, CMP #### [facility] [address] [address] [address] Allen SunGFR-NON AF ITALIAN>60Normal>=60The [facility] HospitalComment on above:Performed By: #### BNP, CMP #### [facility] [address] [address] [address] Allen SmithGlobulin (S) [Mass/Vol]5.2 g/dLNormMemorial Health SystemComment on above:Performed By: #### BNP, CMP #### [facility] [address] [address] [address] Allen SmithGlucose [Mass/Vol]120 mg/dLCritically dogi83-313Wvq [facility] HospitalComment on above:Performed By: #### BNP, CMP #### [facility] [address] [place] [address] Dr. Allen SmithPotassium [Moles/Vol]3.7 mmol/LNormal3.5-5.1The [facility] Comment on above:Performed By: #### BNP, CMP #### [facility] [address] [address] [address] Allen SmithProtein [Mass/Vol]8.0 g/dLNormal6.4-8.2The [facility] Comment on above:Performed By: #### BNP, CMP #### [facility] [address] [place] [address] Dr. Allen SmithSodium [Moles/Vol]122 mmol/LCritically qut203-795Jlc [facility] HospitalComment on above:Performed By: #### BNP, CMP #### [facility] [address] [place] [address] Dr. Allen SmithUrea nitrogen [Mass/Vol]13.0 mg/dLNormal7.0-18.0The [facility] HospitalComment on above:Performed By: #### BNP, CMP #### [facility] [address] [place] [address] Dr. Allen SmithUrea nitrogen/Creatinine [Mass ratio]15.7 mg/mgNormalThe [facility] HospitalComment on above:Performed By: #### BNP, CMP #### [facility] [address] [address] [address] Allen SmithPROF CHEM 8 (BAS METB)on 20-54-6425Bidhl gap [Moles/Vol]13.3 mmol/LNormalThe [facility] HospitalComment on above:Performed By: #### BMP #### [facility] [address] [address] [address] Allen SmithCalcium [Mass/Vol]7.1 mg/dLCritically low8.5-10.1The [facility] HospitalComment on above:Performed By: #### BMP #### [facility] [address] [address] [address] Allen SmithChloride [Moles/Vol]97 mmol/LCritically fob59-127Khb [facility] HospitalComment on above:Performed By: #### BMP #### [facility] [address] [place] [address] Dr. Allen SmithCO2 [Moles/Vol]21.8 mmol/KMeqxnw68.0-32.0The [facility] Comment on above:Performed By: #### BMP #### [facility] [address] [place] [address] Dr. Allen SmithCreatinine [Mass/Vol]0.84 mg/dLNormal0.55-1.02The [facility] HospitalComment on above:Performed By: #### BMP #### [facility] [address] [address] [address] Allen SunGFR-AF ITALIAN>60Normal>=60The [facility] HospitalComment on above:Performed By: #### BMP #### [facility] [address] [address] [address] Allen SunGFR-NON AF ITALIAN>60Normal>=60The [facility] HospitalComment on above:Performed By: #### BMP #### [facility] [address] [place] [address] Dr. Allen SmithGlucose [Mass/Vol]128 mg/dLCritically zvgw39-003Tmv [facility] HospitalComment on above:Performed By: #### BMP #### [facility] [address] [place] [address] Dr. Allen SmithPotassium [Moles/Vol]3.1 mmol/LCritically low3.5-5.1The [facility] HospitalCombronson [facility] on above:Performed By: #### BMP #### [facility] [address] [place] [address] Dr. Allen SmithSodium [Moles/Vol]129 mmol/LCritically mvi897-524Grj [facility] HospitalCombronson [facility] on above:Performed By: #### BMP #### [facility] [address] [place] [address] Dr. Allen SmithUrea nitrogen [Mass/Vol]17.0 mg/dLNormal7.0-18.0[facility] on above:Performed By: #### BMP #### [facility] [address] [place] [address] Dr. Allen Morgan nitrogen/Creatinine [Mass ratio]20.2 mg/mgNormMemorial Health SystemCombronson lakeview hospital on above:Performed By: #### BMP #### [facility] [address] [place] [address] Dr. Allen Grijalva 44-92-5971LDS Coag (PPP) [Relative time]0.98 {INR} NormalJoint [facility] on above:Performed By: #### BNP, CMP #### [facility] [address] [place] [address] Dr. Allen Morris GUIDELINESSEE BELOWMadison HealthComment on above:Result Comment: DESIRED INR: 2.0 - 3.0 CONDITIONS NOT LISTED BELOW 2.5 - 3.5 FOR PROSTHETIC HEART VALVE REPLACEMENT 2.5 - 3.5 RECURRENT THROMBOSIS Performed By: #### BNP, CMP #### [facility] [address] [place] [address] Dr. Allen SmithPT Coag (PPP) [Time]10.4 sNormal9.0-11.6The [facility] Comment on above:Performed By: #### BNP, CMP #### [facility] [address] [place] [address] Dr. Allen ChávezTon 54-27-5346nIAG Coag (Bld) [Time]29.8 nKycrwq81.3-36.2The [facility] HospitalComment on above:Performed By: #### BNP, CMP #### [facility] [address] [place] [address] Dr. Allen Harris HEPARIN MONITORon 68-96-4944oYUW Coag (Bld) [Time]24.5 s Critically low39.5-54.2The [facility] HospitalComment on above:Performed By: #### TSH #### [facility] [address] [place] [address] Dr. Allen SmithTRIGLYCERIDEon 93-04-0447Nkgirqfoblqm [Mass/Vol]55 mg/dLNormal <=150The [facility] HospitalCombronson lakeview hospital on above:Performed By: #### TSH #### [facility] [address] [place] [address] Dr. Allen SmithXR CHEST 1 Von 29-42-2689RF CHEST 1 VEXAM: XR CHEST 1 V HISTORY: SHORTNESS OF BREATH COMPARISON: Chest radiograph 01/25/2023. TECHNIQUE: AP upright portable view of chest FINDINGS: Stable endotracheal tube position. Enteric tube has been advanced with distal tip not included in the qrdnz-ah-gxdu but at least terminates in the mid to low gastric body. Radiolucent sideport is at the gastric antrum. Similar pulmonary vascular congestion. No sizable pleural effusion or pneumothorax. Normal cardiomediastinal sella. No acute osseous or soft tissue abnormalities. IMPRESSION: 1. Enteric tube has been advanced with distal tip not included in the czlqi-cl-pswj but at least terminates in the mid to low gastric body. Radiolucent sideport is at the gastric antrum. 2. Stable endotracheal tube position. 3. Pulmonary vascular congestion. Electronically authenticated by: BASHIR ZAYAS Date: 2023-01-25 18:35NormalThSelect Medical Specialty Hospital - Cleveland-FairhillXR CHEST 1 VEXAM: XR CHEST 1 V [...] Electronically authenticated by: Ava HERNDON Date: 2023-01-25 17:25Madison HealthBLOOD GASES BTYon MODENASAL CANNULAMadison HealthComment on above:Performed By: #### ABG #### [facility] [address] [place] [address] Dr. Allen Irwin TESTPositiveMadison HealthComment on above: Performed By: #### ABG #### [facility] [address] [place] [address] Dr. Allen SmithBase excess Calc (Bld) [Moles/Vol]-4.1000 mmol/LCritically low -2.0-2.0The [facility] HospitalComment on above:Performed By: #### ABG #### [facility] [address] [place] [address] Dr. Allen De La Rosa PRESSUREMadison HealthComment on above: Performed By: #### ABG #### [facility] [address] [place] [address] Dr. Allen SmithCPAPMadison HealthComment on above:Performed By: #### ABG #### [facility] [address] [place] [address] Dr. Allen SmithPaybuESF6LvwrxfBmzMadison HealthComment on above:Performed By: #### ABG #### [facility] [address] [place] [address] Dr. Allen SmithHCO3 (Bld) [Moles/Vol]21.6 mmol/LCritically low22.0-26.0The [facility] HospitalComment on above:Performed By: #### ABG #### [facility] [address] [address] [address] Allen HeadleyEmzdoSLH3BwbqypQpo87 Joseph StreetComment on above:Performed By: #### ABG #### [facility] [address] [address] [address] Allen SmithMINHolzer Health SystemComment on above: Performed By: #### ABG #### [facility] [address] [address] [address] Allen SmithOxygen (Bld) [Partial pressure]112.0 mm[Hg]Critically high 80.0-100.0The [facility] HospitalComment on above:Performed By: #### ABG #### [facility] [address] [place] [address] Dr. Allen SmithOxygen saturation in Blood98.5 %Ompolx30.0-100.0The [facility] HospitalComment on above:Performed By: #### ABG #### [facility] [address] [place] [address] Dr. Allen SmithPCO239.6 wnJkTdbdzp15.0-45.0The [facility] HospitalComment on above:Performed By: #### ABG #### [facility] [address] [place] [address] Dr. Allen ReevesMagruder Hospitalment on above:Performed By: #### ABG #### [facility] [address] [address] [address] Allen SmithpH (Bld)7.345 [pH]Critically low7.350-7.450The [facility] on above:Performed By: #### ABG #### [facility] [address] [place] [address] Dr. Allen WangPNormalThe [facility] HospitalComment on above:Performed By: #### ABG #### [facility] [address] [place] [address] Dr. Allen SmithUC Medical CenterComment on above:Performed By: #### ABG #### [facility] [address] [place] [address] Dr. Allen Mcneil [facility] HospitalCom[facility] on above: Performed By: #### ABG #### [facility] [address] [place] [address] Dr. Allen JamesFirelands Regional Medical Center South CampusCombronson lakeview hospital on above:Performed By: #### ABG #### [facility] [address] [place] [address] Dr. Allen SmithPremier Health [facility] NorthCombronson lakeview hospital on above:Performed By: #### ABG #### [facility] [address] [place] [address] Dr. Allen SmithMercer County Community HospitalCombronson lakeview hospital on above:Performed By: #### ABG #### [facility] [address] [place] [address] Dr. Allen De La Fuente 89-43-8288Cyuhbpctbmp peptide B (Bld) [Mass/Vol]81524.0 pg/mLCritically high<=900.0[facility] HospitalCombronson lake[facility] hospital on above:Performed By: #### NA #### [facility] [address] [place] [address] Dr. Allen Hdz LI 3-6on 66-73-5726XI [Catalytic activity/Vol]319 U/L Critically bslg37-458Ijb [facility] on above:Performed By: #### BNP, CMP #### [facility] [address] [place] [address] Dr. Allen Hager.MB [Mass/Vol]16.41 ng/mLCritically high<=3.60[facility] on above:Performed By: #### BNP, CMP #### [facility] [address] [place] [address] Dr. Allen Caballero1248.2 pg/mLCritically high4.0-51.3THolzer Medical Center – [facility] Comment on above:Result Comment: CUT-OFF POINTS HAVE BEEN ESTABLISHED BASED ON THE FOURTH UNIVERSAL DEFINITIONS OF MYOCARDIAL INFARCTION. THE UPPER REFERENCE LIMIT (URL) OF TROPONIN, DEFINED THE 99TH PERCENTILE OF cTnI DISTRIBUTION IN A REFERENCE POPULATION, HAS BEEN CONFIRMED THE DECISION THRESHOLD FOR MO DIAGNOSIS.Performed By: #### BNP, CMP #### [facility] [address] [place] [address] Dr. Allen Hdz LI ADMITon 92-60-6533JI [Catalytic activity/Vol]238 U/L Critically xdiy86-055Mjf [facility] HospitalComment on above:Performed By: #### CMADM #### [facility] [address] [place] [address] Dr. Allen Hager.MB [Mass/Vol]12.74 ng/mLCritically high<=3.60The [facility] HospitalComment on above:Performed By: #### CMADM #### [facility] [address] [place] [address] Dr. Allen SmithHSTROP1545.9 pg/mLCritically high4.0-51.3The [facility] Comment on above:Result Comment: CUT-OFF POINTS HAVE BEEN ESTABLISHED BASED ON THE FOURTH UNIVERSAL DEFINITIONS OF MYOCARDIAL INFARCTION. THE UPPER REFERENCE LIMIT (URL) OF TROPONIN, DEFINED THE 99TH PERCENTILE OF cTnI DISTRIBUTION IN A REFERENCE POPULATION, HAS BEEN CONFIRMED THE DECISION THRESHOLD FOR MO DIAGNOSIS.Performed By: #### CMADM #### [facility] [address] [place] [address] Dr. Allen WylieO244 ng/mLCritically high9-82The [facility] Hospital Northment on above:Performed By: #### CMADM #### [facility] [address] [place] [address] Dr. Allen YunC AUTO DIFFon 08-27-5586HMQM #0.0 103/ulNormal0.0-0.1Flower HospitalComment on above:Performed By: #### CBC #### [facility] [address] [place] [address] Dr. Allen SmithBasophils/100 WBC (Bld)0.2 %Normal0.2-2.0[facility] Comment on above:Performed By: #### CBC #### [facility] [address] [address] [address] Allen Francois #0.0 103/ulNormal0.0-0.7The [facility] HospitalComment on above: Performed By: #### CBC #### [facility] [address] [place] [address] Dr. Allen Sunosinophils/100 WBC (Bld)0.0 %Critically low0.9-7.0The [facility] HospitalComment on above:Performed By: #### CBC #### [facility] [address] [place] [address] Dr. Allen Sunrythrocyte distribution width (RBC) [Ratio]13.4 %Gjpalt76.0-15.0 [facility] HospitalComment on above:Performed By: #### CBC #### [facility] [address] [place] [address] Dr. Allen SmithHematocrit (Bld) [Volume fraction]33.0 %Critically low36.0-48.0 The [facility] HospitalComment on above:Performed By: #### CBC #### [facility] [address] [place] [address] Dr. Allen SmithHemoglobin (Bld) [Mass/Vol]10.6 g/dLCritically low12.0-16.0The [facility] HospitalComment on above:Performed By: #### CBC #### [facility] [address] [place] [address] Dr. Allen Diaz #0.11 10e3/ulCritically high0.00-0.03[facility] Comment on above:Performed By: #### CBC #### [facility] [address] [place] [address] Dr. Allen Diaz %0.9 %Critically high0.0-0.5The [facility] HospitalComment on above:Performed By: #### CBC #### [facility] [address] [place] [address] Dr. Allen PaulH #0.5 103/ulCritically low1.2-3.8The [facility] Comment on above:Performed By: #### CBC #### [facility] [address] [place] [address] Dr. Allen Devimphocytes/100 WBC (Bld)4.2 %Critically low20.5-60.0The [facility] HospitalComment on above:Performed By: #### CBC #### [facility] [address] [place] [address] Dr. Allen Paredes DIFF REQNONormalThe [facility] HospitalComment on above: Performed By: #### CBC #### [facility] [address] [place] [address] Dr. Allen Nielsen (RBC) [Entitic mass]24.5 pgCritically low26.7-34.0The [facility] HospitalComment on above:Performed By: #### CBC #### [facility] [address] [place] [address] Dr. Allen Nielsen (RBC) [Mass/Vol]32.1 g/mRLwwbwr24.9-35.2The [facility] HospitalComment on above:Performed By: #### CBC #### [facility] [address] [place] [address] Dr. Allen NielsenV (RBC) [Entitic vol]76.2 fLCritically low81.0-99.0The [facility] HospitalComment on above:Performed By: #### CBC #### [facility] [address] [place] [address] Dr. Allen Lilly #0.7 103/ulNormal0.3-0.8The [facility] Northment on above:Performed By: #### CBC #### [facility] [address] [place] [address] Dr. Allen Cottonocytes/100 WBC (Bld)5.1 %Normal1.7-12.0[facility] Comment on above:Performed By: #### CBC #### [facility] [address] [place] [address] Dr. Allen Darden #11.3 103/ulCritically high1.4-6.5The [facility] Comment on above:Performed By: #### CBC #### [facility] [address] [address] [address] Allen SmithNeutrophils/100 WBC (Bld)89.6 %Critically high43.0-75.0The [facility] HospitalComment on above:Performed By: #### CBC #### [facility] [address] [address] [address] Allen SmithPlatelet mean volume (Bld) [Entitic vol]10.0 fLNormal9.5-13.5The [facility]leton HospitalComment on above:Performed By: #### CBC #### [facility] [address] [place] [address] Dr. Allen SmithPLT316 103/lkCydkyj906-595Vre [facility] HospitalComment on above: Performed By: #### CBC #### [facility] [address] [place] [address] Dr. Allen SmithRBC4.33 106/ulNormal4.20-5.40The [facility] HospitalComment on above:Performed By: #### CBC #### [facility] [address] [place] [address] Dr. Allen SmithWBC12.6 103/ulCritically high4.0-11.0The [facility] HospitalComment on above:Performed By: #### CBC #### [facility] [address] [place] [address] N[address] W CONon 97-50-7424AV NECK ST W CONEXAMINATION: CT NECK ST [...] Electronically authenticated by: FREDDY BARRAZA Date: 2023-01-24 14:13[facility] HospitalCULTURE BLOODon 09-62-5020Vgpgevwulkp examination of blood, cultureCulture Observations: NO GROWTH AT 5 DAYS.NormalThe [facility]leton HospitalComment on above:Performed By: #### BNP, CMP #### [facility] [address] [place] [address] Dr. Allen SmithMicroscopic examination of blood, cultureCulture Observations: NO GROWTH AT 5 DAYS.NormalThe [facility] HospitalComment on above:Performed By: #### BNP, CMP #### [facility] [address] [place] [address] Dr. Allen SmithGROUP A STREP CULTUREon 01-24-2023S. pyogenes Ag Ql (Unsp spec) Culture Observations: NEGATIVE FOR GROUP A STREPTOCOCCUS.NormalThe [facility] HospitalComment on above: Performed By: #### NA #### [facility] [address] [place] [address] Dr. Allen SmithLACTATE/LACTIC ACIDon 10-96-6383Rzaurqo [Moles/Vol]3.1 mmol/L Critically high0.4-2.0The [facility] HospitalComment on above:Performed By: #### ABG #### [facility] [address] [place] [address] Dr. Allen SmithLactate [Moles/Vol]3.6 mmol/LCritically high0.4-2.0The [facility] HospitalComment on above:Performed By: #### TSH #### [facility] [address] [place] [address] Dr. Allen Jackman 75-31-7168Whpgoi [Moles/Vol]122 mmol/LCritically jwy203-967 The [facility] HospitalComment on above:Performed By: #### NA #### [facility] [address] [address] [address] Allen Bishop 14(COMP METB)on 36-50-7625Mjnpyrk [Mass/Vol]3.0 g/dL Critically low3.4-5.0The [facility] HospitalComment on above:Performed By: #### NA #### [facility] [address] [address] [address] Allen SmithAlbumin/Globulin [Mass ratio]0.5 {ratio}NormalThe [facility] HospitalComment on above:Performed By: #### NA #### [facility] [address] [place] [address] Dr. Allen CraigP [Catalytic activity/Vol]88 U/DHrftzo79-812Uyx [facility] HospitalComment on above:Performed By: #### NA #### [facility] [address] [address] [address] Allen King [Catalytic activity/Vol]65 U/LCritically rnzn20-56Afl [facility] HospitalComment on above:Performed By: #### NA #### [facility] [address] [address] [address] Allen Bower gap [Moles/Vol]17.8 mmol/LNormalThe [facility] Comment on above:Performed By: #### NA #### [facility] [address] [place] [address] Dr. Allen SmithAST [Catalytic activity/Vol]28 U/FBxdgeu99-39Xea [facility] HospitalComment on above:Performed By: #### NA #### [facility] [address] [address] [address] Allen SmithBilirubin [Mass/Vol]0.3 mg/dLNormal0.2-1.0The [facility] Comment on above:Performed By: #### NA #### [facility] [address] [address] [address] Allen SmithCalcium [Mass/Vol]9.5 mg/dLNormal8.5-10.1The [facility] Comment on above:Performed By: #### NA #### [facility] [address] [address] [address] Allen SmithChloride [Moles/Vol]87 mmol/LCritically oor13-907Vtm [facility] HospitalComment on above:Performed By: #### NA #### [facility] [address] [address] [address] Allen SmithCO2 [Moles/Vol]22.5 mmol/XUrtzkz81.0-32.0The [facility] Comment on above:Performed By: #### NA #### [facility] [address] [address] [address] Allen SmithCreatinine [Mass/Vol]1.07 mg/dLCritically high0.55-1.02The [facility] HospitalComment on above:Performed By: #### NA #### [facility] [address] [address] [address] [place] ChangEGFR-AF ITALIAN>60Normal>=60The [facility] HospitalComment on above:Performed By: #### NA #### [facility] [address] [address] [address] Allen SunGFR-NON AF MRDEJTFZ65 mL/min/1.26g6Aampzijhrj low>=60The [facility] HospitalComment on above:Performed By: #### NA #### [facility] [address] [address] [address] Allen SmithGlobulin (S) [Mass/Vol]6.2 g/dLNormalThe [facility] HospitalComment on above:Performed By: #### NA #### [facility] [address] [address] [address] Allen SmithGlucose [Mass/Vol]182 mg/dLCritically bsht72-347Wxo [facility] HospitalComment on above:Performed By: #### NA #### [facility] [address] [address] [address] Allen SmithPotassium [Moles/Vol]4.3 mmol/LNormal3.5-5.1The [facility] Comment on above:Performed By: #### NA #### [facility] [address] [place] [address] Dr. Allen SmithProtein [Mass/Vol]9.2 g/dLCritically high6.4-8.2The [facility]zer HospitalComment on above:Performed By: #### NA #### [facility] [address] [place] [address] Dr. Allen SmithSodium [Moles/Vol]123 mmol/LCritically yde083-008Uhz Holzer HospitalComment on above:Performed By: #### NA #### [facility] [address] [place] [address] Dr. Allen SmithUrea nitrogen [Mass/Vol]12.0 mg/dLNormal7.0-18.0The [facility]zer HospitalComment on above:Performed By: #### NA #### [facility] [address] [place] [address] Dr. Allen Morgan nitrogen/Creatinine [Mass ratio]11.2 mg/mgNoTriHealth Bethesda Butler HospitalComment on above:Performed By: #### NA #### [facility] [address] [place] [address] Dr. Allen SmithPROTIMEon [id number] Coag (PPP) [Relative time]0.98 {INR} NormalThe Holzer HospitalComment on above:Performed By: #### TSH #### [facility] [address] [place] [address] Dr. Allen Morris GUIDELINESSEE BELOWMadison HealthComment on above:Result Comment: DESIRED INR: 2.0 - 3.0 CONDITIONS NOT LISTED BELOW 2.5 - 3.5 FOR PROSTHETIC HEART VALVE REPLACEMENT 2.5 - 3.5 RECURRENT THROMBOSIS Performed By: #### TSH #### [facility] [address] [place] [address] Dr. Allen SmithPT Coag (PPP) [Time]10.4 sNormal9.0-11.6[facility] Comment on above:Performed By: #### TSH #### [facility] [address] [place] [address] Dr. Allen Madrigal [id number] Coag (Bld) [Time]29.5 gQiqtyh11.3-36.2The [facility]zer HospitalComment on above:Performed By: #### TSH #### [facility] [address] [place] [address] Dr. Allen SmithRESPIRATORY PANEL PLUSon [id number] detectedNormal NOT DETECTEDThe [facility]zer HospitalComment on above:Performed By: #### NA #### [facility] [address] [place] [address] Dr. Allen Casas ParapertusisNot detectedNormalNOT DETECTEDThe Holzer HospitalComment on above:Performed By: #### NA #### [facility] [address] [place] [address] Dr. Allen Casas PertussisNot detectedNormalNOT DETECTEDThe [facility] Comment on above:Performed By: #### NA #### [facility] [address] [place] [address] Dr. Allen SmithChlamydia PneumoniaeNot detectedNormalNOT DETECTEDThe [facility]zer HospitalComment on above:Performed By: #### NA #### [facility] [address] [place] [address] Dr. Allen SmithCoronavirus 229ENot detectedNormalNOT DETECTEDThe [facility]zer HospitalComment on above:Performed By: #### NA #### [facility] [address] [place] [address] Dr. Allen SmithCoronavirus [id number] detectedNormalNOT DETECTEDThe [facility]zer HospitalComment on above:Performed By: #### NA #### [facility] [address] [place] [address] Dr. Allen SmithCoronavirus AI86Yap detectedNormalNOT DETECTEDThe [facility]zer HospitalComment on above:Performed By: #### NA #### [facility] [address] [address] [address] Allen SmithCoronavirus ZH89Hhy detectedNormalNOT DETECTEDThe [facility]zer HospitalComment on above:Performed By: #### NA #### [facility] [address] [address] [address] Allen Pascual H1Not detectedNormalNOT DETECTEDThe [facility] Comment on above:Performed By: #### NA #### [facility] [address] [address] [address] Allen Pascual H1 2009Not detectedNormalNOT DETECTEDThe [facility] HospitalCombronson [facility] on above:Performed By: #### NA #### [facility] [address] [address] [address] Allen Pascual H3Not detectedNormalNOT DETECTEDThe [facility] Comment on above:Performed By: #### NA #### [facility] [address] [address] [address] Allen Felipe BNot detectedNormalNOT DETECTEDThe [facility] Comment on above:Performed By: #### NA #### [facility] [address] [address] [address] Allen MorrowapneumovirusNot detectedNormalNOT DETECTEDThe [facility] HospitalCombronson [facility] on above:Performed By: #### NA #### [facility] [address] [address] [address] Allen Bustamante. PneumoniaeNot detectedNormalNOT DETECTEDThe [facility] HospitalCombr[facility] on above:Performed By: #### NA #### [facility] [address] [address] [address] Allen Mathew 1Not detectedNormalNOT DETECTEDThe [facility] HospitalCombronson [facility] on above:Performed By: #### NA #### [facility] [address] [address] [address] Allen Mathew 2Not detectedNormalNOT DETECTEDThe [facility] HospitalCombr[facility] on above:Performed By: #### NA #### [facility] [address] [place] [address] Dr. Allen Mathew 3DetectedAbnormalNOT DETECTEDThe [facility] Comment on above:Performed By: #### NA #### [facility] [address] [place] [address] Dr. Allen Mathew 4Not detectedNormalNOT DETECTEDThe [facility]zer HospitalComment on above:Performed By: #### NA #### [facility] [address] [place] [address] Dr. Allen SmithRhelizabeth/EnterovirusNot detectedNormalNOT DETECTEDThe [facility]zer HospitalComment on above:Performed By: #### NA #### [facility] [address] [place] [address] Dr. Allen Nguyen Header 1RESPIRATORY PANEL: VIRUSESMadison Health Comment on above:Performed By: #### NA #### [facility] [address] [place] [address] Dr. Allen Nguyen Header 2RESPIRATORY PANEL: BACTERIAMadison HealthComment on above:Performed By: #### NA #### [facility] [address] [place] [address] Dr. Allen AmaroVNot detectedNormalNOT DETECTEDThe [facility] HospitalCombronson [facility] on above:Performed By: #### NA #### [facility] [address] [place] [address] Dr. Allen Trotter-CoV-2 (COVID-19) RNA BJORN+probe Ql (Unsp spec)Not detected NormalNOT DETECTEDThe Holzer HospitalComment on above:Performed By: #### NA #### [facility] [address] [place] [address] Dr. Allen SmithSTREPT SCREENon [id number] SCREEN ANegativeNormalNEGATIVEThe [facility] HospitalCombronson [facility] on above:Performed By: #### NA #### [facility] [address] [place] [address] Dr. Allen MonaeHopedro 30-56-4848GDW6.471 uIU/mLNormal0.358-3.740The [facility]ney HospitalComment on above:Performed By: #### TSH #### [facility] [address] [address] [address] Allen SmithXR CHEST 1 Von [id number] CHEST 1 VEXAM: XR CHEST 1 V [...] authenticated by: OLIVIA JAVED Date: 2023-01-24 12:53Normal [facility] Vital Signs Date TimeVital SignValuePerforming HkmtstmvqDvyvcpgv78-62-1984 13:18-0400Body ywxdsa223.5 cmVfelicity [place] APRN-LOAD [employer] DU[employer] OPERATOR Work Phone: [facility]06-26-2025 13:18-0400Body mass index (BMI) [Ratio]39.9 kg/h0Vdlmnzj Tod BONILLA-LOAD HAUL DUMP OPERATOR Work Phone: [facility]06-26-2025 13:18-0400Body xrfgkvjstsy80.71 [degF]Torolaurita [place] APRN-LOAD HAUL DUMP OPERATOR Work Phone: [facility]06-26-2025 13:18-0400Body mvkuqv53.97 kgToro Garciapietro CASEYN-LOAD HAUL DUMP OPERATOR Work Phone: [facility]06-26-2025 13:18-0400Diastolic blood kqhetbgc54 mm[Hg]Toro Tod CASEYN-LOAD HAUL DUMP OPERATOR Work Phone: [facility]06-26-2025 13:18-0400Heart rate 100 /minToro [place] APRN-LOAD HAUL DUMP OPERATOR Work Phone: [facility]06-26-2025 13:18-0400 Respiratory rate20 /minToro [place] APRN-LOAD HAUL DU[employer] OPERATOR Work Phone: [facility]06-26-2025 13:18-6556CbR2% (BldA) [Mass fraction]98 %Toro [place] APRN-LOAD HAUL DUMP OPERATOR Work Phone: [facility]06-26-2025 13:18-0400Systolic blood nivfkfyu342 mm[Hg]Toro [place] APRN-LOAD HAUL DUMP OPERATOR Work Phone: [facility]04-28-2025 13:39-0400Body trjzsypzhwo16.6 [degF]Rogers Wilson SOLE SPLITTER Work Phone: [facility]04-28-2025 13:39-0400 Body edbclz35.42 kgRogers Wilson SOLE SPLITTER Work Phone: [facility]04-28-2025 13:39-0400 Diastolic blood mm[Hg]Rogers Wilson SOLE SPLITTER Work Phone: [facility]04-28-2025 13:39-0400 Heart rate82 /Robert Wilson SOLE SPLITTER Work Phone: [facility]04-28-2025 13:39-0400 Inhaled oxygen flow rate2 L/Robert Wilson SOLE SPLITTER Work Phone: [facility]04-28-2025 13:39-0400 Respiratory rate18 /Robert Wilson SOLE SPLITTER Work Phone: [facility]04-28-2025 13:39-0400 SaO2% (BldA) [Mass fraction]98 %Rogers Wilson SOLE SPLITTER Work Phone: [facility]04-28-2025 13:39-0400 Systolic blood ohkjojas452 mm[Hg]Rogers Wilson SOLE SPLITTER Work Phone: [facility]03-17-2025 11:35-0400 Body lgyhbk738.5 cmValerie [place] [employer]-LOAD HAUL DUMP OPERATOR Work Phone: [facility]03-17-2025 11:35-0400Body mass index (BMI) [Ratio]38.63 kg/d6WvdiwagToro [place] APRN-LOAD HAUL DUMP OPERATOR Work Phone: [facility]03-17-2025 11:35-0400Body taamjtzssyr29.2 [degF]Toro [place] APRN-LOAD HAUL DUMP OPERATOR Work Phone: [facility]03-17-2025 11:35-0400Body tfoabt80.8 kgToro [place] APRN-LOAD HAUL DUMP OPERATOR Work Phone: [facility]03-17-2025 11:35-0400Diastolic blood mm[Hg]Toro [place] APRN-LOAD HAUL DUMP OPERATOR Work Phone: [facility]03-17-2025 11:35-0400Heart rate 90 /minToro [place] APRN-LOAD HAUL DUMP OPERATOR Work Phone: [facility]03-17-2025 11:35-0400 Respiratory rate18 /minToro [place] APRN-LOAD HAUL DUMP OPERATOR Work Phone: [facility]03-17-2025 11:35-7089EjR3% (BldA) [Mass fraction]96 %Toro [place] APRN-LOAD HAUL DUMP OPERATOR Work Phone: [facility]03-17-2025 11:35-0400Systolic blood hubpxqne831 mm[Hg]Toro Baron [employer]-LOAD HAUL DUMP OPERATOR Work Phone: [facility]02-24-2025 14:49-0500Body jrgyxp41.7 kgRogers Wilson SOLE SPLITTER Work Phone: [facility]02-24-2025 14:49-0500 Diastolic blood azmoxutn10 mm[Hg]Rogers Wilson SOLE SPLITTER Work Phone: [facility]02-24-2025 14:49-0500 Heart rate87 /Robert Wilson SOLE SPLITTER Work Phone: [phone]02-24-2025 14:49-0500 Inhaled oxygen flow rate2 L/minRogers Sanchezs SOLE SPLITTER Work Phone: 1(565)167-[address] [place], [place] 3811602-24-2025 14:49-0500 Respiratory rate20 /minRogers Sanchezs SOLE SPLITTER Work Phone: 1(430)163-[address] [place], [place] 3811602-24-2025 14:49-0500 SaO2% (BldA) [Mass fraction]99 %Rogers Wilson SOLE SPLITTER Work Phone: 1(612)892-[address] [place], [place] 3811602-24-2025 14:49-0500 Systolic blood yyywoupr047 mm[Hg]Rogers Wilson SOLE SPLITTER Work Phone: [phone])[address]01-27-2025 13:25-0500 Body rqchyw184.64 cmRogers Wilson SOLE SPLITTER Work Phone: 1(342)199-[address] [place], [place] 3811601-27-2025 13:25-0500 Body mass index (BMI) [Ratio]33.4 kg/m2Rogers Wilson SOLE SPLITTER Work Phone: [phone]([phone] [place], [place] 3811601-27-2025 13:25-0500 Body wkvviesydbu03.1 [degF]Rogers Wilson SOLE SPLITTER Work Phone: 1(950)547-[address] [place], [place] 3811601-27-2025 13:25-0500 Body vnzlqo61.89 kgRogers Wilson SOLE SPLITTER Work Phone: 1(573)620-[address] [place], [place] 3811601-27-2025 13:25-0500 Diastolic blood gzxtefxt77 mm[Hg]Rogers Wilson SOLE SPLITTER Work Phone: 1(020)886-[address] [place], [place] 3811601-27-2025 13:25-0500 Heart rate60 /Robert Sanchezs SOLE SPLITTER Work Phone: 1(473)[phone]01-27-2025 13:25-0500 Inhaled oxygen flow rate2 L/minRogers Sanchezs SOLE SPLITTER Work Phone: [facility]01-27-2025 13:25-0500 Respiratory rate18 /Robert Wilson SOLE SPLITTER Work Phone: [phone]01-27-2025 13:25-0500 SaO2% (BldA) [Mass fraction]100 %Rogers Sanchezs SOLE SPLITTER Work Phone: [facility]01-27-2025 13:25-0500 Systolic blood mm[Hg]Rogers Sanchezs SOLE SPLITTER Work Phone: [phone]12-31-2024 09:29-0500 Body hbaldmhydvg25.5 [degF]Rogers Sanchezs SOLE SPLITTER Work Phone: [phone]12-31-2024 09:29-0500 Body nyvjil03.98 kgMarerna Sanchezs SOLE SPLITTER Work Phone: [phone])[phone]12-31-2024 09:29-0500 Diastolic blood rrucnveu72 mm[Hg]Rogers Sanchezs SOLE SPLITTER Work Phone: [phone]12-31-2024 09:29-0500 Heart rate80 /Robert Wilson SOLE SPLITTER Work Phone: [phone])[phone]12-31-2024 09:29-0500 Respiratory rate16 /Robert Wilson SOLE SPLITTER Work Phone: [phone]12-31-2024 09:29-0500 SaO2% (BldA) [Mass fraction]99 %Rogers Sanchezs SOLE SPLITTER Work Phone: [phone])[phone]12-31-2024 09:29-0500 Systolic blood bbzkonxe250 mm[Hg]Rogers Sanchezs SOLE SPLITTER Work Phone: [phone]12-16-2024 13:00-0500 Body sdcehycskzx16.1 [degF]Rogers Sanchezs SOLE SPLITTER Work Phone: [phone])[phone]12-16-2024 13:00-0500 Diastolic blood xwywcqlk72 mm[Hg]Rogers Wilson SOLE SPLITTER Work Phone: [phone]12-16-2024 13:00-0500 Heart rate71 /Robert Wilson SOLE SPLITTER Work Phone: [phone]12-16-2024 13:00-0500 Inhaled oxygen flow rate2 L/Robert Wilson SOLE SPLITTER Work Phone: 1(273)043-[address] [place], [place] 3811612-16-2024 13:00-0500 Respiratory rate22 /Robert Wilson SOLE SPLITTER Work Phone: 1(397)620-[address] [place], [place] 3811612-16-2024 13:00-0500 SaO2% (BldA) [Mass fraction]100 %Rogers Wilson SOLE SPLITTER Work Phone: [phone]12-16-2024 13:00-0500 Systolic blood tkdaenrk752 mm[Hg]Rogers Wilson SOLE SPLITTER Work Phone: 1(282)467-[address] [place], [place] 3811609-23-2024 12:56-0400 Body bgytpa692.1 cmFNP Rogers Wilson Work Phone: [phone]09-23-2024 12:56-0400 Body mass index (BMI) [Ratio]31.1 kg/m2FNP Rogers Wilson Work Phone: [facility]09-23-2024 12:56-0400 Body vemsavzodrh37.9 [degF]SOLE SPLITTER Rogers Wilson Work Phone: [phone]09-23-2024 12:56-0400 Body .82 kgFNP Rogers Wilson Work Phone: [phone])[phone]09-23-2024 12:56-0400 Diastolic blood nphvquja12 mm[Hg]SOLE SPLITTER Rogers Wilson Work Phone: [phone])[phone]09-23-2024 12:56-0400 Heart rate61 /minFNP Rogers Wilson Work Phone: [phone]09-23-2024 12:56-0400 Inhaled oxygen flow rate2 L/minFNP Rogers Wilson Work Phone: [phone](638)[phone]09-23-2024 12:56-0400 Respiratory rate18 /minFNP Rogers Wilson Work Phone: [phone])[phone]09-23-2024 12:56-0400 SaO2% (BldA) [Mass fraction]97 %SOLE SPLITTER Rogers Wilson Work Phone: [phone]92[facility]09-23-2024 12:56-0400 Systolic blood emehhlja124 mm[Hg]SOLE SPLITTER Rogers Wilson Work Phone: [phone])22832 [address]09-03-2024 15:51-0400 Body .1 cmFNP Rogers Wilson Work Phone: 1(065)90632 [address]09-03-2024 15:51-0400 Body mass index (BMI) [Ratio]30.2 kg/m2FNP Rogers Wilson Work Phone: [phone])32132 [address]09-03-2024 15:51-0400 Body nsplqgtorlv59.6 [degF]SOLE SPLITTER Rogers Wilson Work Phone: [phone]87[facility]09-03-2024 15:51-0400 Body trjzfi96.58 kgFNP Rogers Wilson Work Phone: [phone])[phone]09-03-2024 15:51-0400 Diastolic blood reawlode53 mm[Hg]SOLE SPLITTER Rogers Wilson Work Phone: [phone]09-03-2024 15:51-0400 Heart rate62 /minFNP Rogers Wilson Work Phone: [phone])[phone]09-03-2024 15:51-0400 Respiratory rate18 /minFNP Rogers Wilson Work Phone: [phone])[phone]09-03-2024 15:51-0400 SaO2% (BldA) [Mass fraction]92 %SOLE SPLITTER Rogers Wilson Work Phone: 1(348)573-[address] [place], [place] 3811609-03-2024 15:51-0400 Systolic blood ellnnoof480 mm[Hg]SOLE SPLITTER Rogers Wilson Work Phone: [phone])61032 [address]08-09-2024 11:45-0400 Inhaled oxygen flow rate2 L/minFNP Rogers Wilson Work Phone: [phone])08332 [address]08-09-2024 09:49-0400 Body esrvqjyobcm00 [degF]SOLE SPLITTER Rogers Wilson Work Phone: 1(478)69632 [address]08-09-2024 09:49-0400 Body nsfnat67.73 kgFNP Rogers Wilson Work Phone: [phone])[address] [place], [place] 3909608-09-2024 09:49-0400 Diastolic blood eszjpgzb56 mm[Hg]SOLE SPLITTER Rogers Wilson Work Phone: 1(756)70332 [address]08-09-2024 09:49-0400 Heart rate65 /minFNP Rogers Wilson Work Phone: 1(071)46632 [address]08-09-2024 09:49-0400 Respiratory rate18 /minFNP Rogers Wilson Work Phone: 1(969)02732 [address]08-09-2024 09:49-0400 SaO2% (BldA) [Mass fraction]99 %SOLE SPLITTER Rogers Wilson Work Phone: 1(852)293-[address] [place], [place] 3811608-09-2024 09:49-0400 Systolic blood rsxocoyv335 mm[Hg]SOLE SPLITTER Rogers Wilson Work Phone: 1(728)59832 [address]06-28-2024 10:55-0400 Inhaled oxygen flow rate2 L/minFNP Rogers Wilson Work Phone: [phone])39632 [address]06-28-2024 09:50-0400 Body gnenfwyocvl98.1 [degF]SOLE SPLITTER Rogers Wilson Work Phone: 1([phone])48632 [address]06-28-2024 09:50-0400 Body vlyubp64.65 kgFNP Rogers Wilson Work Phone: [phone]06-28-2024 09:50-0400 Diastolic blood ihzfpmti63 mm[Hg]SOLE SPLITTER Rogers Wilson Work Phone: [phone]06-28-2024 09:50-0400 Heart rate65 /minFNP Rogers Wilson Work Phone: 1(283)641-[address] [place], [place] 3811606-28-2024 09:50-0400 Inhaled oxygen flow rate2 L/minFNP Rogers Wilson Work Phone: [phone]06-28-2024 09:50-0400 Respiratory rate20 /minFNP Rogers Wilson Work Phone: [phone]06-28-2024 09:50-0400 SaO2% (BldA) [Mass fraction]100 %SOLE SPLITTERJose Luis Wilson Work Phone: [phone]06-28-2024 09:50-0400 Systolic blood pntrhuud200 mm[Hg]SOLE SPLITTER Rogers Wilson Work Phone: [facility]04-30-2024 08:54-0400 Body .5 cmRogers Wilson [employer]-SOLE SPLITTER Work Phone: [facility]04-30-2024 08:54-0400Body mass index (BMI) [Ratio]28.68 kg/m2Rogers Wilson [employer]-SOLE SPLITTER Work Phone: [facility]04-30-2024 08:54-0400Body goubefbzasz38.9 [degF]Rogers Wilson [employer]-SOLE SPLITTER Work Phone: [facility]04-30-2024 08:54-0400Body azkygk00.12 kgRogers Wilson [employer]-SOLE SPLITTER Work Phone: [facility]04-30-2024 08:54-0400Diastolic blood gglfnyod83 mm[Hg]Rogers Wilson APRN-SOLE SPLITTER Work Phone: [facility]04-30-2024 08:54-0400Heart rate 63 /Robert Wilson APRN-SOLE SPLITTER Work Phone: [facility]04-30-2024 08:54-0400 Respiratory rate24 /Robert Wilson [employer]-SOLE SPLITTER Work Phone: [facility]04-30-2024 08:54-6161GtP4% (BldA) [Mass fraction]99 %Rogers Wilson APRN-SOLE SPLITTER Work Phone: [facility]04-30-2024 08:54-0400Systolic blood yomzhscs359 mm[Hg]Rogers Wilson APRN-SOLE SPLITTER Work Phone: [facility]04-18-2024 13:00-0400Body .6 [degF]SOLE SPLITTER Rogers Wilson Work Phone: [facility]04-18-2024 13:00-0400 Diastolic blood lxfjvaia93 mm[Hg]SOLE SPLITTER Rogers Wilson Work Phone: [facility]04-18-2024 13:00-0400 Heart rate62 /minFNP Rogers Wilson Work Phone: [facility]04-18-2024 13:00-0400 Respiratory rate18 /minFNP Rogers Wilson Work Phone: [facility]04-18-2024 13:00-0400 SaO2% (BldA) [Mass fraction]100 %SOLE SPLITTER Rogers Wilson Work Phone: [facility]04-18-2024 13:00-0400 Systolic blood qrncyhlv253 mm[Hg]SOLE SPLITTER Rogers Wilson Work Phone: [facility]03-29-2024 09:56-0400 Inhaled oxygen flow rate2 L/minFNP Rogers Wilson Work Phone: [facility]03-29-2024 08:52-0400 Body lipzvvfcooz34.2 [degF]SOLE SPLITTERJose Luis Wilson Work Phone: [facility]03-29-2024 08:52-0400 Body wumtbx27.49 kgFNP Rogers Wilson Work Phone: [facility]03-29-2024 08:52-0400 Diastolic blood boxmifnf90 mm[Hg]SOLE SPLITTER Rogers Wilson Work Phone: [facility]03-29-2024 08:52-0400 Heart rate87 /minFNP Rogers Wilson Work Phone: [phone]03-29-2024 08:52-0400 Inhaled oxygen flow rate2 L/minFNP Rogers Wilson Work Phone: [phone]03-29-2024 08:52-0400 Respiratory rate18 /minFNP Rogers Wilson Work Phone: [facility]03-29-2024 08:52-0400 SaO2% (BldA) [Mass fraction]99 %DEIDRE Wilson Work Phone: [facility]03-29-2024 08:52-0400 Systolic blood ovtspyly205 mm[Hg]DEIDRE Wilson Work Phone: [facility]03-26-2024 14:57-0400 Body wpyyck509.5 cmRogers Wilson APRN-SOLE SPLITTER Work Phone: [facility]03-26-2024 14:57-0400Body mass index (BMI) [Ratio]27.44 kg/m2Rogers Wilson APRN-SOLE SPLITTER Work Phone: [facility]03-26-2024 14:57-0400Body zlympsriznk99.39 [degF]Rogers Wilson [employer]-SOLE SPLITTER Work Phone: [facility]03-26-2024 14:57-0400Body qsnnig23.04 kgRogers Wilson [employer]-SOLE SPLITTER Work Phone: [facility]03-26-2024 14:57-0400Diastolic blood qpfsluwa94 mm[Hg]Rogers Wilson [employer]-SOLE SPLITTER Work Phone: [facility]03-26-2024 14:57-0400Heart rate 73 /Robert Wilson [employer]-SOLE SPLITTER Work Phone: [facility]03-26-2024 14:57-0400 Respiratory rate20 /minRogers Wilson [employer]-SOLE SPLITTER Work Phone: [facility]03-26-2024 14:57-8777ClW8% (BldA) [Mass fraction]99 %Rogers Wilson [employer]-SOLE SPLITTER Work Phone: [facility]03-26-2024 14:57-0400Systolic blood mm[Hg]Rogers Wilson [employer]-SOLE SPLITTER Work Phone: [facility]03-07-2024 13:18-0500Body vofcfykgldl66 [degF]SOLE SPLITTER Rogers Wilson Work Phone: [facility]03-07-2024 13:18-0500 Diastolic blood wyfqyaws87 mm[Hg]SOLE SPLITTER Rogers Wilson Work Phone: [facility]03-07-2024 13:18-0500 Heart rate59 /minFNP Rogers Wilson Work Phone: [facility]03-07-2024 13:18-0500 Respiratory rate20 /minFNP Rogers Wilson Work Phone: [facility]03-07-2024 13:18-0500 SaO2% (BldA) [Mass fraction]99 %SOLE SPLITTER Rogers Wilson Work Phone: [facility]03-07-2024 13:18-0500 Systolic blood rslqudzy559 mm[Hg]SOLE SPLITTER Rogers Wilson Work Phone: [phone]02-16-2024 10:30-0500 Body jlzlcu32.59 kgFNP Rogers Wilson Work Phone: [phone]02-16-2024 09:44-0500 Body aheagybvnbr42 [degF]SOLE SPLITTER Rogers Wilson Work Phone: [phone]02-16-2024 09:44-0500 Diastolic blood nisacacw35 mm[Hg]SOLE SPLITTER Rogers Wilson Work Phone: 1([phone])[phone] [facility] 09:44-0500 Heart rate72 /minFNP Rogers Wilson Work Phone: [phone])[address]02-16-2024 09:44-0500 Inhaled oxygen flow rate2 L/minFNP Rogers Wilson Work Phone: 1(664)818-[address] [place], [place] 3811602-16-2024 09:44-0500 Respiratory rate20 /minFNP Rogers Wilson Work Phone: 1([phone])262-45[facility]02-16-2024 09:44-0500 SaO2% (BldA) [Mass fraction]100 %SOLE SPLITTER Rogers Wilson Work Phone: 1(489)317-53[facility]02-16-2024 09:44-0500 Systolic blood mm[Hg]SOLE SPLITTER Rogers Wilson Work Phone: 1(219)[phone]01-25-2024 14:23-0500 Inhaled oxygen flow rate2 L/minFNP Rogers Wilson Work Phone: 1(004)[phone]01-25-2024 13:13-0500 Body wikvaqyrqtg39.1 [degF]SOLE SPLITTER Rogers Wilson Work Phone: [facility]01-25-2024 13:13-0500 Body jdexye71.85 kgFNP Rogers Wilson Work Phone: 1(902)[phone]01-25-2024 13:13-0500 Diastolic blood csdufrzc97 mm[Hg]SOLE SPLITTER Rogers Wilson Work Phone: 1(429)773-24[facility]01-25-2024 13:13-0500 Heart rate77 /minFNP Rogers Sanchezs Work Phone: [facility]01-25-2024 13:13-0500 Inhaled oxygen flow rate2 L/minFNP Rogers Wilson Work Phone: [facility]01-25-2024 13:13-0500 Respiratory rate20 /minFNP Rogers Sanchezs Work Phone: 1(397)545-37[facility]01-25-2024 13:13-0500 SaO2% (BldA) [Mass fraction]97 %SOLE SPLITTER Rogers Wilson Work Phone: [phone])[phone]01-25-2024 13:13-0500 Systolic blood uookoiiy622 mm[Hg]SOLE SPLITTER Rogers Wilson Work Phone: 1(673)[phone]01-23-2024 09:40-0500 Body ecetfxbpmbt23.9 [degF]SOLE SPLITTER Rogers Wilson Work Phone: [facility]01-23-2024 09:40-0500 Diastolic blood emjohhfi12 mm[Hg]SOLE SPLITTER Rogers Wilson Work Phone: [facility]01-23-2024 09:40-0500 Heart dbll845 /minFNP Rogers Wilson Work Phone: [facility]01-23-2024 09:40-0500 Inhaled oxygen flow rate2 L/minFNP Rogers Wilson Work Phone: [facility]01-23-2024 09:40-0500 Respiratory rate20 /minFNP Rogers Sanchezs Work Phone: [facility]01-23-2024 09:40-0500 SaO2% (BldA) [Mass fraction]100 %SOLE SPLITTER Rogers Daniels Work Phone: 1(753)814-[address] [place], [place] 3811601-23-2024 09:40-0500 Systolic blood lilpitkk592 mm[Hg]SOLE SPLITTER Rogers Wilson Work Phone: 1(607)[address] [place], [place] 7814301-23-2024 06:00-0500 Body qacnnu65.9 kgFNP Rogers Wilson Work Phone: 1(220)[address] [place], [place] 7814301-19-2024 16:43-0500 Body kiomew562.1 cmFNP Rogers Wilson Work Phone: 1(252)[address] [place], [place] 7814301-04-2024 10:36-0500 Body dihfffdlmnh50.9 [degF]SOLE SPLITTER Rogers Wilson Work Phone: 1(046)[address] [place], [place] 7814301-04-2024 10:36-0500 Body snauon16.59 kgFNP Rogers Wilson Work Phone: 1(727)[address] [place], [place] 7814301-04-2024 10:36-0500 Diastolic blood gubmlaqp19 mm[Hg]SOLE SPLITTER Rogers Wilson Work Phone: 1(914)[address] [place], [place] 7814301-04-2024 10:36-0500 Heart rate66 /minFNP Rogers Wilson Work Phone: 1(469)[address] [place], [place] 7814301-04-2024 10:36-0500 Inhaled oxygen flow rate2 L/minFNP Rogers Wilson Work Phone: 1(312)[facility] [place], [place] 3811601-04-2024 10:36-0500 Respiratory rate20 /minFNP Rogers Wilson Work Phone: 1(055)4-[address] [place], [place] 3811601-04-2024 10:36-0500 SaO2% (BldA) [Mass fraction]100 %SOLE SPLITTER Rogers Wilson Work Phone: 1(436)[address]01-04-2024 10:36-0500 Systolic blood khytbhuh042 mm[Hg]SOLE SPLITTER Rogers Wilson Work Phone: 1(069)[address] [place], [place] 7814312-12-2023 12:52-0500 Body ziubvsfuwir83.3 [degF]SOLE SPLITTER Rogers Wilson Work Phone: [facility]12-12-2023 12:52-0500 Body vtunvk98.31 kgFNP Rogers Wilson Work Phone: [facility]12-12-2023 12:52-0500 Diastolic blood xyeemvva66 mm[Hg]SOLE SPLITTER Rogers Wilson Work Phone: 1(023)433-27[facility]12-12-2023 12:52-0500 Heart rate83 /minFNP Rogers Wilson Work Phone: 1(386)408-31[facility]12-12-2023 12:52-0500 Respiratory rate16 /minFNP Rogers Wilson Work Phone: 1(295)[phone]12-12-2023 12:52-0500 SaO2% (BldA) [Mass fraction]100 %SOLE SPLITTER Rogers Wilson Work Phone: [facility]12-12-2023 12:52-0500 Systolic blood uoqmdntw648 mm[Hg]SOLE SPLITTER Rogers Wilson Work Phone: [facility]11-27-2023 13:02-0500 Body .3 [degF]SOLE SPLITTER Rogers Wilson Work Phone: [facility]11-27-2023 13:02-0500 Body uuhzuv13.31 kgFNP Rogers Wilson Work Phone: [facility]11-27-2023 13:02-0500 Diastolic blood oopjwnxk10 mm[Hg]SOLE SPLITTER Rogers Wilson Work Phone: [facility]11-27-2023 13:02-0500 Heart rate90 /minFNP Rogers Wilson Work Phone: [phone]11-27-2023 13:02-0500 Inhaled oxygen flow rate2 L/minFNP Rogers Wilson Work Phone: 1([phone])[phone]11-27-2023 13:02-0500 Respiratory rate20 /minFNP Rogers Wilson Work Phone: [facility]11-27-2023 13:02-0500 SaO2% (BldA) [Mass fraction]100 %SOLE SPLITTER Rogers Wilson Work Phone: [facility]11-27-2023 13:02-0500 Systolic blood ewnbivid764 mm[Hg]SOLE SPLITTER Rogers Wilson Work Phone: [facility]11-21-2023 14:30-0500 Diastolic blood yaivlysg73 mm[Hg]SOLE SPLITTER Rogers Wilson Work Phone: [facility]11-21-2023 14:30-0500 Heart rate80 /minFNP Rogers Wilson Work Phone: [facility]11-21-2023 14:30-0500 Inhaled oxygen flow rate2 L/minFNP Rogers Wilson Work Phone: 1([phone]11-21-2023 14:30-0500 Respiratory rate20 /minFNP Rogers Wilson Work Phone: [facility]11-21-2023 14:30-0500 SaO2% (BldA) [Mass fraction]100 %SOLE SPLITTER Rogers Wilson Work Phone: [facility]11-21-2023 14:30-0500 Systolic blood dejtypjv893 mm[Hg]SOLE SPLITTER Rogers Wilson Work Phone: [facility]11-21-2023 11:55-0500 Body byrstm806.1 cmFNP Rogers Wilson Work Phone: [facility]11-21-2023 11:55-0500 Body ysrqgkfnaah91.6 [degF]SOLE SPLITTER Rogers Wilson Work Phone: [facility]11-21-2023 11:55-0500 Body oacqdg10.5 kgFNP Rogers Sanchezs Work Phone: [facility]11-10-2023 15:18-0500 Diastolic blood wxuhgsfq58 mm[Hg]SOLE SPLITTER Rogers Wilson Work Phone: 1([phone]11-10-2023 15:18-0500 Heart rate68 /minFNP Rogers Wilson Work Phone: [facility]11-10-2023 15:18-0500 Respiratory rate16 /minFNP Rogers Wilson Work Phone: [facility]11-10-2023 15:18-0500 SaO2% (BldA) [Mass fraction]100 %SOLE SPLITTER Rogers Wilson Work Phone: [facility]11-10-2023 15:18-0500 Systolic blood fpbeovbd614 mm[Hg]SOLE SPLITTER Rogers Wilson Work Phone: [phone])359-72[facility]11-10-2023 14:13-0500 Inhaled oxygen flow rate2 L/minFNP Rogers Wilson Work Phone: [facility]11-10-2023 14:00-0500 Body sewgspfrpxm49 [degF]SOLE SPLITTER Rogers Wilson Work Phone: [facility]10-30-2023 13:44-0400 Body ervxkwuelwv94.7 [degF]SOLE SPLITTER Rogers Wilson Work Phone: [phone]10-30-2023 13:44-0400 Body .77 kgFNP Rogers Wilson Work Phone: [facility]10-30-2023 13:44-0400 Diastolic blood gjzyifok09 mm[Hg]SOLE SPLITTER Rogers Wilson Work Phone: [facility]10-30-2023 13:44-0400 Heart rate83 /minFNP Rogers Wilson Work Phone: [facility]10-30-2023 13:44-0400 Respiratory rate20 /minFNP Rogers Wilson Work Phone: [facility]10-30-2023 13:44-0400 SaO2% (BldA) [Mass fraction]98 %SOLE SPLITTER Rogers Wilson Work Phone: [facility]10-30-2023 13:44-0400 Systolic blood ppzedkfv276 mm[Hg]SOLE SPLITTER Rogers Wilson Work Phone: [facility]09-22-2023 13:38-0400 Body .5 [degF]SOLE SPLITTER Rogers Wilson Work Phone: [phone])[phone]09-22-2023 13:38-0400 Body .95 kgFNP Rogers Wilson Work Phone: 1(271)737-67[facility]09-22-2023 13:38-0400 Diastolic blood zyoiqozc82 mm[Hg]SOLE SPLITTER Rogers Wilson Work Phone: [phone]([phone]09-22-2023 13:38-0400 Heart rate87 /minFAMA Wilson Work Phone: [facility]09-22-2023 13:38-0400 Inhaled oxygen flow rate2 L/minFNP Rogers Wilson Work Phone: [facility]09-22-2023 13:38-0400 Respiratory rate20 /minFNP Rogers Wilson Work Phone: [facility]09-22-2023 13:38-0400 SaO2% (BldA) [Mass fraction]100 %SOLE SPLITTER Rogers Wilson Work Phone: [facility]09-22-2023 13:38-0400 Systolic blood mrpkukhx617 mm[Hg]SOLE SPLITTER Rogers Wilson Work Phone: [facility]09-22-2023 13:21-0400 Body gzacfd000.1 cmFNP Rogers Wilson Work Phone: [facility] Encounters Encounter DateEncounter TypeCare ProviderFacilityStart: 07-14-2025 End: 54-49-9455sjltdadscuEWBHMercy Health West Hospitaltart: 04-14-2025 End: 87-71-0612lsbcdkvfhfMPQNMercy Health West Hospitaltart: 03-27-2025 End: 03-88-6069Yrljzq outpatient visit 15 minutesToro Baron APRN-LOAD HAUL DUMP OPERATOR Work Phone: [facility] Physicians Internal Medicine - Family MedicineComment on above:Left leg cellulitis (Primary Dx)Start: 03-27-2025 End: 58-07-4962tzzvrlzevhUSOLTQNNorth [facility] Hospital [facility] Start: 53-35-9382Pwzagbcmys Yi Wilson SOLE SPLITTER Work Phone: [facility] [place] [facility] Work Phone: Start: 01-27-2025 End: 73-58-5617wfpajggihcQfkb R Kuns SOLE SPLITTER Work Phone: [facility] Work Phone: Start: 01-27-2025 End: 60-19-1537Kkrtjdf encounter procedureRogers Wilson SOLE SPLITTER Work Phone: [facility] [place] [facility] Work Phone: Start: 12-16-2024 End: 33-07-6055Cqsfzb outpatient visit 25 minutesToro Baron APRN-LOAD HAUL DUMP OPERATOR Work Phone: [facility] Physicians Internal Medicine - Family MedicineComment on above:Arthritis, multiple joint involvement (Primary Dx); Renal cell carcinoma of right kidney (CMS-HCC); Panlobular emphysema (CMS-HCC); 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); Obesity, morbid ([facility]-HCC)Start: 12-16-2024 End: 27-35-3871prxdrpqxeyGLFAIJBNorth Valley Hospital [facility] Start: 18-81-0693Swgiymprqr Yi Wilson SOLE SPLITTER Work Phone: [facility] Work Phone: Start: 11-25-2024 End: 39-16-6775ecygydfbnsFluf R Kuns SOLE SPLITTER Work Phone: [facility] Work Phone: Start: 11-25-2024 End: 76-62-3783Vevztuq encounter procedureRogers Wilson SOLE SPLITTER Work Phone: [facility] Work Phone: Start: 11-04-2024 End: 99-20-7500rsdyxdvkscBNTWUCMMedina Hospital Start: 92-92-2533Cypcpwykfh RecurringRogers Wilson SOLE SPLITTER Work Phone: [facility] Work Phone: Start: 10-28-2024 End: 97-91-8152hqfpbrntudFugt R Kuns SOLE SPLITTER Work Phone: [facility] Work Phone: Start: 10-28-2024 End: 13-05-1158Dsowwii encounter procedureRogers Wilson SOLE SPLITTER Work Phone: [facility] Work Phone: Start: 10-01-2024 End: 99-11-9640Ddwfrfzg Result EncounterAries Chavez DO Work Phone: NOJN External Department UnsolicitedStart: 10-01-2024 End: 30-63-2142Nmjdfqnn Result EncounterAries Chavez DO Work Phone: noms External Department UnsolicitedStart: 10-01-2024 End: 04-93-4654Fmogjti encounter procedurePoojaerna Danieltony SOLE SPLITTER Work Phone: [facility] Work Phone: Start: 08-05-2024 End: 71-15-7119CowglvXvqgh Rosa CMAProMedica Physicians Internal Medicine - Family MedicineComment on above:Chronic obstructive pulmonary disease with acute exacerbation ([facility]-HCC)Start: 07-19-2024 End: 89-53-0386JzlvxvKkztv Rosa CMAProMedica Physicians Internal Medicine - Family MedicineStart: 33-09-8527Tqziodkixp RecurringFAMA Rogers Wilson Work Phone: [facility] [place] [facility] Work Phone: Start: 06-24-2024 End: 24-51-3848ucnyckeybfZBQ Rogers Wilson Work Phone: [facility] Work Phone: Start: 06-24-2024 End: 87-55-4054Xdrhhra encounter procedureFAMA Rogers Wilson Work Phone: [facility] Work Phone: Start: 06-18-2024 End: 36-95-0863Sehubzaj Result EncounterAries Chavez DO Work Phone: noms External Department UnsolicitedStart: 06-18-2024 End: 38-20-0319Qkkjutge Result EncounterAries Chavez DO Work Phone: noms External Department UnsolicitedStart: 06-04-2024 End: 75-15-4123zqysdtccpoKZT Rogers Wilson Work Phone: [facility] Work Phone: Start: 06-04-2024 End: 35-96-0397Aajyyyt encounter procedureDEIDRE Rogers Wilson Work Phone: [facility] Work Phone: Start: 52-05-0776Vrtzoqtkxh RecurringFAMA Rogers Wilson Work Phone: [facility] [place] [facility] Work Phone: Start: 05-10-2024 End: 39-95-1763hfwsgnzsifMIZ Mary R Kuns Work Phone: [facility] Work Phone: Start: 05-10-2024 End: 56-30-9744Kifxogf encounter procedureDEIDRE Wilson Work Phone: [facility] Work Phone: Start: 50-80-9650Ylqbtzakpv RecurringDEIDRE Wilson Work Phone: [facility] Work Phone: Start: 03-29-2024 End: 44-38-5122edlbjvrnkrJEH Mary R Kuns Work Phone: [facility] Work Phone: Start: 03-29-2024 End: 57-15-3051Voyfdjl encounter procedureFAMA Wilson Work Phone: [facility] Work Phone: Start: 03-21-2024 End: 92-69-3886HsoybbAtfr Rose Kuns [employer]-SOLE SPLITTER Work Phone: [facility] Internal Medicine - Family MedicineComment on above:AnxietyStart: 01-30-2024 End: 05-06-7282Ljysag outpatient visit 25 minutesRogers Wilson [employer]-SOLE SPLITTER Work Phone: [facility] Internal Medicine - Family MedicineComment on above:Chronic obstructive pulmonary disease with acute exacerbation (CMS-HCC) (Primary Dx); Chronic hypoxic respiratory failure (CMS-HCC); Renal cell carcinoma of right kidney (CMS-HCC)Start: 11-46-3766Ncpytjwepo RecurringDEIDRE Wilson Work Phone: [facility] Work Phone: Start: 12-29-2023 End: 01-70-5050grxgeuepbzXSN Mary R Kuns Work Phone: [facility] Work Phone: Start: 12-29-2023 End: 23-85-3439Ewgxwqz encounter procedureDEIDRE Wilson Work Phone: [facility] Work Phone: Start: 12-26-2023 End: 36-73-8264Lyrxen outpatient visit 15 minutesRogers Wilson [employer]-SOLE SPLITTER Work Phone: [facility] Internal Medicine - Family MedicineComment on above:Acute recurrent frontal sinusitis (Primary Dx); Nausea and vomiting, unspecified vomiting typeStart: 34-25-2819Uhqispkmni RecurringDEIDRE Wilson Work Phone: [facility] Work Phone: Start: 11-17-2023 End: 35-27-8231vgnulgpubbUPM Mary R Kuns Work Phone: [facility] Work Phone: Start: 11-17-2023 End: 02-48-6958Oxijtyw encounter procedureDEIDRE Wilson Work Phone: [facility] Work Phone: Start: 31-51-4022Vktwfbjj Result EncounterAries Chavez DO Work Phone: noms External Department UnsolicitedStart: 11-15-2023 External Result EncounterTimleonarda Chavez DO Work Phone: noms External Department UnsolicitedStart: 10-26-2023 Registered RecurringDEIDRE Wilson Work Phone: [facility] Work Phone: Start: 10-26-2023 End: 01-45-9699ksomjbsdogXAG Mary R Kuns Work Phone: [facility] Work Phone: Start: 10-26-2023 End: 44-32-1261Irpzyqp encounter procedureFNP Rogers Wilson Work Phone: [facility] Work Phone: Start: 91-40-3179Gsq-patient / Non-visitFNP Rogers Wilson Work Phone: [facility] Work Phone: Start: 97-71-6192Bkv-patient / Non-visitFNP Rogers Wilson Work Phone: [facility] Work Phone: Start: 10-05-2023 End: 41-38-9938ccuhqmapwoQIE Rogers Wilson Work Phone: [facility] Work Phone: Start: 10-05-2023 End: 11-81-1528Fbbvlpvfpp RecurringFNP Rogers Wilson Work Phone: [facility] Work Phone: Start: 10-05-2023 End: 52-38-0807afjipblcbiLML Rogers Wilson Work Phone: [facility] Work Phone: Start: 10-05-2023 End: 04-51-8377Ozbuqdekvo RecurringFNP Rogers Wilson Work Phone: [facility] Work Phone: Start: 09-12-2023 End: 34-25-6237grqpxpzbroRTA Rogers Wilson Work Phone: [facility] Work Phone: Start: 09-12-2023 End: 52-15-6509Zxyddrejnl RecurringFNP Rogers Wilson Work Phone: [facility] Work Phone: Start: 08-28-2023 End: 90-75-0496qyipazlcwwMOI Rogers Wilson Work Phone: [facility] Work Phone: Start: 08-28-2023 End: 48-79-0847Hpoubfpyum RecurringFNP Rogers Wilson Work Phone: [facility] Work Phone: Start: 08-22-2023 End: 45-97-7221Hztbsjigz to same day surgery centerFAMA Wilson Work Phone: [facility] [place] [facility] Work Phone: Start: 08-22-2023 End: 40-45-9168milzuqhyxnNTC Rogers Wilson Work Phone: [facility] Work Phone: Start: 41-12-1298Sgdhbirwlo RecurringFNP Rogers Wilson Work Phone: [facility] Work Phone: Start: 07-31-2023 End: 51-89-4989bozhzktbbyJQN Rogers Wilson Work Phone: [facility] Work Phone: Start: 07-31-2023 End: 43-36-6866Euseueqrxc RecurringFNP Rogers Wilson Work Phone: [facility] Work Phone: Start: 06-23-2023 End: 05-49-4580smtsbyvrsnDOF Rogers Wilson Work Phone: [facility] Work Phone: Start: 06-23-2023 End: 07-16-7544Zmfcsdkyfd RecurringFNP Rogers Wilson Work Phone: [facility] Work Phone: Start: 43-57-4229dwrqngstcxSfipy MGabe LueFacility:EU [place]kyStart: 02-28-2023 End: 16-24-7627xlkdrutnbqLS DOCTOR MISCFacility:R7Ayghp: 78-88-5036cfumhkhxky Chantal NicoleGabe LueFacility:[facility] [place]kyStart: 02-07-2023 End: 37-05-9544spksimzbhfEL DOCTOR MISCFacility:M9Fojzp: 01-24-2023 End: 43-00-6203Fmittvzjty and management of inpatientDR FREDDY BARRAZA Facility: Procedures DateProcedureProcedure DetailPerforming ClinicianStart: 75-75-3817Fzare depression screening assessmentValesaira Baron APRN-LOAD HAUL DUMP OPERATOR Work Phone: Start: 45-41-7327Nojlfm-up visitFollow-upVALERIMalou Guzman JOSEPIETROStart: 60-70-4952Iafxl depression screening assessmentValemsmalou Baron [employer]-LOAD HAUL DUMP OPERATOR Work Phone: Start: 64-61-0733Zfnpazms blood count with white cell differential, automatedAries Chavez DO Work Phone: Start: 72-46-7241GKIPDCJQGUXBMAIEGGV HORMONE PLTimleonarda Chavez DO Work Phone: Start: 40-30-3392Uufxnclh blood count with white cell differential, automatedAries Chavez DO Work Phone: Start: 05-45-9576IFQLO Antigen (POC)SOLE SPLITTER Rogers Wilson Work Phone: Start: 09-34-0451Lbuiados tomography of abdomen and pelvis with contrastFAMA Wilson Work Phone: Start: 39-03-0168WC of thorax with contrastFNP Rogers Wilson Work Phone: Start: 43-96-8672Yiawk depression screening assessment Rogers Wilson APRN-SOLE SPLITTER Work Phone: Start: 61-96-6039Umusn depression screening assessment Rogers Wilson APRN-SOLE SPLITTER Work Phone: Start: 05-18-4352Zycjbydu blood count with white cell differential, automatedAries Chavez DO Work Phone: Start: 97-24-7797Hgfjnw scan of lower limb veinsFNP Rogers Wilson Work Phone: Start: 37-39-3425Dwhzuzqb identified in Urine by Dea AGUIRREP Work Phone: Start: 59-75-1953Hkijo cultureFAMA Wilson Work Phone: Start: 44-70-9710Bstujxwror guidance for needle biopsy SOLE SPLITTER Rogers Wilson Work Phone: Start: 39-60-8161Merzzkxy identified in Urine by Dea AGUIRREP Work Phone: Start: 27-64-6635Aolnz cultureFAMA Wilson Work Phone: Start: 22-00-2459Acehhlebm of Infusion Device into Right Femoral Vein, Percutaneous ApproachDR FREDDY MCMILLANtart: 01-25-2023 Insertion of Endotracheal Airway into Trachea, Via Natural or Artificial Opening DR FREDDY BARRAZA Plan of Treatment DateCare ActivityDetailAuthorStart: 47-67-6956Tqsnvqjiex ScreeningDepression ScreeningProCleveland Clinic SystemStart: 92-78-1724Uagw Risk ScreeningFall Risk ScreeningProCleveland Clinic SystemStart: 73-40-5588Scbzvip ScreeningTobacco ScreeningProCleveland Clinic SystemStart: 40-71-3971Ocqfg BMI Follow Up PlanAdult BMI Follow Up PlanProCleveland Clinic SystemStart: 03-69-1364Rmppe BMI Screening Adult BMI ScreeningProCleveland Clinic SystemStart: 07-26-1441Aurjbsswie Screening Depression ScreeningProCleveland Clinic SystemStart: 49-38-1082Ycuznsg Screening Tobacco ScreeningProUab [facility] SystemStart: 93-11-9920Jgvddacho vaccination Influenza VaccineProUab [facility] SystemStart: 96-55-9234Iplnm BMI Screening Adult BMI ScreeningProCleveland Clinic SystemStart: 45-74-4762Jmtubuthgr Screening Depression ScreeningProCleveland Clinic SystemStart: 68-41-2261Qmoj Risk Screening Fall Risk ScreeningProCleveland Clinic SystemStart: 59-74-8059Yxrtejl Screening Tobacco ScreeningProCleveland Clinic SystemStart: 88-14-8018Qynad BMI Screening Adult BMI ScreeningProCleveland Clinic SystemStart: 48-24-7184Mlmpjydaii Screening Depression ScreeningProCleveland Clinic SystemStart: 46-05-7491Iyap Risk Screening Fall Risk ScreeningBarberton Citizens Hospital SystemStart: 11-78-9259Bdwxxdb Screening Tobacco ScreeningBarberton Citizens Hospital SystemStart: 55-53-7915NmdscfoazUniversity Hospitals [facility] CenterStart: 70-58-5213VwwueiskoUniversity Hospitals [facility]point [facility] Center CenterStart: 39-78-9336EkxslnmdeUniversity Hospitals [facility] CenterStart: 90-14-8973IzanmkbpjUniversity Hospitals [facility] CenterStart: 66-12-7401RwyfunnawUniversity Hospitals Tripoint [facility] Center CenterStart: 25-42-2401SlxzwmvuaUniversity Hospitals [facility] CenterStart: 91-92-5652OtjfcaeelUniversity Hospitals [facility] CenterStart: 38-57-8985AlgarzvhfUniversity Hospitals Tripoint [facility] CenterStart: 09-21-2024Medicare Annual Wellness VisitMedicare Annual Wellness VisitProCleveland Clinic SystemStart: 43-05-7097YyxoztyhzUniversity Hospitals [facility] CenterStart: 06-02-2024 Influenza vaccinationInfluenza VaccineBarberton Citizens Hospital SystemStart: 05-10-2024 [facility] CenterStart: 34-69-6304LehwykdtjUniversity Hospitals Tripoint [facility] Center CenterStart: 57-97-9703JezxstqbaUniversity Hospitals Tripoint [facility] Center CenterStart: 03-06-2024 [facility] CenterStart: 01-30-2024 End: 67-25-5462NN Chest PA and LateralX-ray chest 2 views Imaging Routine Chronic obstructive pulmonary disease with acute exacerbation (CMS-HCC) Expected: 01/30/2024, Expires: 01/29/2025[facility] Work Phone: Comment on above:Expected: 01/30/2024, Expires: 01/29/2025Start: 02-08-4487BdzqkgbdkUniversity Hospitals Tripoint Medical Center CenterStart: 12-29-2023 [facility] CenterStart: 85-31-6534Swgpmjvwyhsjro (EPO) [Units/volume] in Serum or PlasmaUniversity Hospitals Tripoint Medical Center CenterStart: 01-95-8357XgzqpvxgxUniversity Hospitals Tripoint Medical Center CenterStart: 46-81-3112TlkizlvuuUniversity Hospitals Tripoint [facility] Center CenterStart: 25-49-1936RrrwpvckxUniversity Hospitals [facility] CenterStart: 56-60-3495XoluepeuvUniversity Hospitals Tripoint [facility] CenterStart: 20-74-9856OjzuvorjpUniversity Hospitals [facility] CenterStart: 04-60-5518XfrhgxrfpUniversity Hospitals Tri[facility] CenterStart: 68-33-8026HveretiyzUniversity Hospitals Tripoint [facility] CenterStart: 27-07-6107McbgodyoaUniversity Hospitals Tripoint [facility] CenterStart: 88-63-0325Llqcfylt to palliative care physicianUniversity Hospitals Tripoint Medical Center CenterStart: 78-50-8840Hqeasllzjyewqa of prophylactic treatment [facility] CenterStart: 22-13-3327Wqmhzlug admissionUniversity Hospitals Tripoint Medical Center CenterStart: 47-28-7272Vaxdhwux to oncologistUniversity Hospitals Tripoint Medical Center CenterStart: 08-68-4110ClpykimorUniversity Hospitals Tripoint Medical Center CenterStart: 32-87-1902Amprohatyuqobldirbz hormone measurementUniversity Hospitals Tripoint [facility] Center CenterStart: 77-43-9705PffjxwmnqUniversity Hospitals Tripoint [facility] CenterStart: 09-14-2023 [facility] CenterStart: 97-20-6991EptvzqbulUniversity Hospitals Tri[facility] CenterStart: 23-30-3736Ztqxuxgsux guidance for needle biopsyUniversity Hospitals Tripoint Medical Center CenterStart: 91-77-6835EequzjdhqUniversity Hospitals Tripoint [facility] Center CenterStart: 28-72-1781QbwifaybhUniversity Hospitals Tripoint [facility] CenterStart: 83-82-7030VppepxsxxUniversity Hospitals [facility] CenterStart: 36-02-6242Joyiophtu vaccinationInfluenza VaccineProCleveland Clinic SystemStart: 88-21-6650Bfquyznczsclbm of varicella zoster vaccineZoster (Shingles) Vaccine (1 of 2)[facility] SystemStart: 40-32-6514CBhN,Tdap and Td Vaccines (1 - Tdap)DTaP,Tdap and Td Vaccines (1 - Tdap)[facility] SystemStart: 80-16-9031Kvjuz BMI Follow Up PlanAdult BMI Follow Up PlanKing's Daughters Medical Center OhioAdrenocorticotropic hormone measurementHocking Valley Community HospitalAdrenocorticotropic hormone measurementHocking Valley Community Hospital Adrenocorticotropic hormone measurementHocking Valley Community Hospital Adrenocorticotropic hormone measurementHocking Valley Community Hospital Adrenocorticotropic hormone measurementHocking Valley Community Hospital Adrenocorticotropic hormone measurementHocking Valley Community HospitalBacteria identified in Stool by CultureHocking Valley Community HospitalBacterial cytolethal distending toxin cdt gene [Presence] in Unspecified specimen by BJORN with probedetectionHocking Valley Community HospitalBilirubin measurement, urine [facility] HospitalCampylobacter coli+jejuni+upsaliensis DNA [Presence] in Stool by BJORN with non-probe detectionHocking Valley Community HospitalColor of UrineHocking Valley Community HospitalComprehensive metabolic 1999 panel - Serum or [facility] HospitalCom[facility] metabolic 1999 panel - Serum or [facility] Comprehensive metabolic 1999 panel - Serum or [facility] HospitalComprehensive metabolic 1999 panel - Serum or [facility] HospitalComprehensive metabolic 1999 panel - Serum or PlasmaComprehensive metabolic panel Lab STAT 11/15/2023 9:16 AM [employer] Work Phone: Comprehensive metabolic 1999 panel - Serum or Plasma [facility] HospitalComprehensive metabolic 1999 panel - Serum or [facility] HospitalComprehensive metabolic 1999 panel - Serum or [facility] HospitalComprehensive metabolic 1999 panel - Serum or [facility] HospitalComprehensive metabolic 1999 panel - Serum or PlasmaComprehensive metabolic panel Lab Routine 06/18/2024 9:28 AM [employer] Work Phone: ComprehenTacatìve metabolic 1999 panel - Serum or Plasma Comprehensive metabolic panel Lab STAT 10/01/2024 8:10 AM [employer] Work Phone: Comprehensive metabolic 1999 panel - Serum or Plasma [facility] HospitalComprehensive metabolic 1999 panel - Serum or PlasmaHocking Valley Community HospitalCortisolCortisol Lab STAT 11/15/2023 9:16 AM ESTNOMS HealthcareCT Abdomen and Pelvis W contrast [facility]vis W contrast [facility]CT Abdomen and Pelvis W contrast [facility]CT Abdomen and Pelvis W contrast [facility] Abdomen and Pelvis W contrast [facility]CT Abdomen and Pelvis W contrast [facility] HospitalCT Chest W contrast [facility]CT Chest W contrast [facility] HospitalCT Chest W contrast [facility] HospitalCT Chest W contrast IV [facility] HospitalCT guided biopsyHocking Valley Community HospitalDetection of hemoglobinHocking Valley Community HospitalEKG 12 channel [facility] HospitalErythropoietin (EPO) [Units/volume] in Serum or PlasmaHocking Valley Community HospitalEscherichia coli enteropathogenic eae gene [Presence] in Stool by BJORN with non-probeHocking Valley Community HospitalEscherichia coli enterotoxigenic ltA+st1a+st1b genes [Presence] in Stool by BJORN [facility] Lodi HospitalEscherichia coli O157 DNA [Presence] in Stool by BJORN with non-probe detectionHocking Valley Community HospitalEscherichia coli Stx1 and Stx2 toxin stx1+stx2 genes [Presence] in Stool by BJORN with non-probe detectionHocking Valley Community HospitalGlucose [Mass/volume] in Urine by Test stripHocking Valley Community HospitalHepatic function panelHocking Valley Community HospitalInfectious agent genotype identificationHocking Valley Community HospitalMeasurement of ketones in urine using dipstickHocking Valley Community HospitalPatient EducationNovant Health Kernersville Medical Center Kidney BiopsyUniversity Hospitals Tripoint [facility] Center Ctr Work Phone: Patient referralUniversity Hospitals Tripoint Medical Center Ctr Work Phone: Plesiomonas shigelloides DNA [Presence] in Stool by BJORN with non-probe detectionHocking Valley Community HospitalProtein measurement, urineMiami Valley Hospitalalmonella enterica+bongori DNA [Presence] in Stool by BJORN with non-probe detectionMiami Valley Hospitalhigella species+EIEC invasion plasmid antigen H ipaH gene [Presence] in Stool by NAAHocking Valley Community HospitalUrinalysis, specific gravity measurementHocking Valley Community HospitalUrine dipstick for nitrite [facility] HospitalUrine dipstick for specific gravityHocking Valley Community HospitalUrine pH testHocking Valley Community Hospital Urobilinogen concentration, test strip measurementHocking Valley Community HospitalUS Lower extremity vein - bilateralHocking Valley Community HospitalVibrio cholerae DNA [Presence] in Stool by BJORN with non-probe detectionHocking Valley Community HospitalVibrio cholerae+parahaemolyticus+vulnificus DNA [Presence] in Stool by BJORN with non-probe detectionSt. Francis Medical Center Immunizations Immunization DateImmunizationNotesCare JeuuzhruTburrvzb68-29-5509pamjcbmsu virus vaccine, unspecified formulationValerie Baron [employer]ALTHCARE ADMINISTRATION INTERNSHIP-LOAD HAUL DUMP OPERATOR Work Phone: [facility] OhioOnfamy43-34-8997Wwjbcutys Vaccine, Quadrivalent, AdjuvantedMary Kuns HEALTHC[employer] ADMINISTRATION INTERNSHIP-SOLE SPLITTER Work Phone: [facility] OhioCyyfoh86-71-1348qbdvxwxje virus vaccine, unspecified formulationMary Kuns HEALTHCARE ADMINISTRATION INTERNSHIP-SOLE SPLITTER Work Phone: [facility] Hospital [facility] ColumbusMoovweb Qwxqyo28-22-3970TXWQS-72, mRNA, LNP- S, PF, 100mcg/0.5mL DoseMary Kuns [employer]ALTH[employer]MINISTR[employer] INTERNSH[employer]-SOLE SPLITTER Work Phone: [facility] [place] Payers DatePayer CategoryPayerPolicy [id number] Health InsuranceMUTUAL [facility] Member Subscriber Plan / Payer (Effective 2023- Present) Name: Perla Ibarra Relation to Subscriber: Self Name: Perla Ibarra Payer ID: Not on file Group ID: Not on file Type: Not on file Address: [address] [id number]. Managed Care Other (unspecified)[facility] [id number] 2019Medicare [id number] [id number] [id number] 1960 [id number] 2.0.1.647665.3.579.2. [id number] 2.0.1.823280.3.57[id number] 2.840.1.783351.3.57[id number] 2.0.1.372396.3.57[id number] 2..840.1.134798.3.57[id number] 2..840.1.775778.3.57[id number] 2.840.1.48[id number] 2.840.1.554016.3.579.2.531 Social History DateTypeDetailFacilityStart: 06-23-2023 End: 83-99-8030Ksczcaf smoking status NHISEx-smoker (finding)Miami Valley Hospitaltart: 90-21-6507Oqp Assigned At BirthFeTuscarawas HospitalTobacc smoking status NHISTobacco smoking consumption unknownHEBER VALLEY MED[facility] HealthcareStart: 77-23-4131Rcv Assigned At BirthNot on [facility] Start: 06-22-2023 End: 15-27-3342Kvjnig identityNot on [facility] SystemStart: 11-18-2020 End: 98-61-6830PubEabtnl (finding)[facility] HospitalHistory of tobacco useCurrent smokerBarberton Citizens Hospital SystemHistory of tobacco useCigarette SmokerBarberton Citizens Hospital SystemStart: 02-07-2023 End: 95-99-1512Autvedk use and exposureSmokeless tobacco non-userProCleveland Clinic SystemStart: 01-30-2024 End: 86-40-8379Bgaihxqtm beverage intakeLifetime non-drinker (finding)[facility] Centeredica Health SystemStart: 06-22-2023 End: 31-36-8878Pnrobfk of Social functionProMedica Health SystemDo you belong to any clubs or organizations such as evangelical groups, unions, fraternal or athletic groups, or school groups?NoProMedica Health SystemAre you now , , , , never or living with a partner?MarriedProMedica Health SystemHow often to you have a drink containing alcohol?NeverProMedica Health SystemHow many standard drinks containing alcohol do you have on a typical day?Patient does not drinkProConexus-IT Health SystemHow hard is it for you to pay for the very basics like food, housing, medical care, and heatingNot very hardProMedica Health SystemDo you feel stress - tense, restless, nervous, or anxious, or unable to sleep at night because yourmind is troubled all the time - these days [OSQ]Only a littleProAtlas Scientific System Goals DatePatient GoalDesired Activity/State Clinical Notes 2019 to 07-14-2025 Note Date & AfhfYczpOxogszef05-47-5107 NoteSUBJECTIVE Reason for Visit: Perla Ibarra is [...] cell carcinoma. Historically, she was transferred from [facility] to [facility] for evaluation of acute respiratory failure in [...] the patient's clinical presentation. Cardiovascular Diagnostic Studies: JASWNIDER ANDREA venous dopplers. (more content not included)...[facility]07-14-2025 NoteSUBJECTIVE Reason for Visit: Perla Ibarra is [...] cell carcinoma. Historically, she was transferred from [facility] to [facility] for evaluation of acute respiratory failure in [...] ovarian vein. No de (more content not included)...[facility]06-26-2025 History of Present illness Narrative* Toro Baron APRN-LOAD HAUL DUMP OPERATOR - 03/27/2025 1:20 PM EDT Images from the original note were not included. [address] [facility] [id number] SUBJECTIVE: Patient ID: Perla Ibarra is a 69 y.o. female. Chief Complaint Patient presents with ER f/u [facility] Patient went to [facility] on 03/20/26 for complaints of left [...] Past Medical History: Diagnosis Date Anxiety Cancer ([facility]) Chronic headache COPD (chronic obstructive pulmonary disease) ([facility]) Hyperlipidemia Myocardial infarction ([facility]) TB (tuberculosis), treated Immunization [...] Perla was seen today for er f/u [place]. Diagnoses and all orders for this visit: [...] BURT Tilley 03/27/25 1348 documented in this encounterKing's Daughters Medical Center Ohio04-28-2025 Progress note [facility] [place] [address] Cancer Center Note Signed Patient: Perla Ibarra MR# : [id number] : 1955 Acct:[id number] Age/Sex: 69 / F Type: REG AMB [...] Present Illness HPI ASSESSMENT/PLAN Right renal Cancer, 67p8j72 cm with extension into right renal vein and inferiorvena cava.. 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 Has seen Dr. Mathew in [place] for consideration of nephrectomy. Determined not a [...] 2022 and ultimately was life flighted to [facility] for a myocardial infarction and ischemic heart [...] medication 2 days ago. She presented to [facility] where she was hydrated and subsequently transferred to [facility]. 10/26/2023: Perla is here for interval [...] cough. reviewed ct scans from [facility] that her renal mass is now down [...] stability of renal cell. reviewed imaging from [place] from 10/26/24 n R complex renal mass 4.2 x 3.9 x 5.9 cm This is unchanged. No new metastatic disease. no adenopathy. 01/27/[address] c/a/p shows roughly stable ct imaging with peristent renal mass. cont on 2 l oxygen. some edema in legs. 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 fatigue is profound. Intake Vitals/Pain Assessment 01/27/25 [...] also reports edema in bilateral lower extremities. [facility] Medical History Medical History Hyponatremia Chronic hypoxic respiratory failure 2 L Oxygen via NC at all times. 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 [address] [place] [address] SUBJECTIVE: Patient ID: Perla Ibarra is a 69 y.o. female. Chief Complaint Patient presents with Follow-up Is accommodated by significant other. She is previous patient of Rogers Wilson APRN She is monitored by oncology, cardiology, and pulmonology. She currently has right renal cell carcinoma.States was found while hospitalized after having a MO,December 2022. Monitored by Dr. Aries Chavez at [facility] for renal carcinoma. She states he also [...] Past Medical History: Diagnosis Date Anxiety Cancer ([facility]) Chronic headache COPD (chronic obstructive pulmonary disease) ([facility]) Hyperlipidemia Myocardial infarction ([facility]) TB (tuberculosis), treated Immunization [...] days. Renal cell carcinoma of right kidney ([facility]) Panlobular emphysema ([facility]) - nebulizer supplies Benign hypertensive heart disease with heart failure ([facility]) Obesity, morbid ([facility]) Primary joints osteoarthritis. Most painful site is bilateral shoulder pain. States pain was better when she was on steroids last month. After 3 days of stopping steroids, the pain has been uncontrolled. She has tried Tylenol but is not effective. Unable to take NSAIDS per oncologist and furniture packer. We discussed Tramadol today. She is willing [...] was found while hospitalized after having a MO,December 2022. Monitored by Dr. Aries Chavez at [facility] for renal carcinoma. She states he also monitors her hypothyroidism. Her chemotherapy, Keytruda, is on hold right now. Plan to restart in the near future. There was possible concern about drug causing rashes. 5. History of CHF No current exacerbation Is managed by Cardiology, [facility] Recent echocardiogram November 2024 -Mild cocentric left ventricular hypertrophy with normal systolic function Normal LVEF of 55% Normal diastolic function Normal right-sided pressures Her MO history includes the following: transferred from [facility] to [facility] for evaluation ofacute respiratory failure in setting [...] BURT Tilley 12/16/24 1433 documented in this encounterChildren's Hospital of ColumbusTEEspy Up Health SystemLeebys38-18-1441 NoteCardiology Clinic Note Subjective Perla Ibarra is a 69 y.o. year old female patient with nonischemic cardiomyopathy, heart failure reduced ejection fraction with EF 45%, coronary artery disease, tobacco use, probable COPD, and right renal mass concerning for renal cell carcinoma. She was transferred from [facility] to [facility] for evaluation of acute respiratory failure in [...] Allergen Reactions Erythromycin Unknown Per report from [facility] Current Outpatient Medications: albuterol 90 mcg/actuation [...] 01/25/2023 HDL 46 01/25/2023 (more content not included)...[facility]11-04-2024 Miscellaneous Notes* Telephone Encounter - Sonia Lee CMA - 08/05/2024 12:41 PM EST Can you make sure it has an ICD code with it so they can bill medicare part B documented in this encounterKing's Daughters Medical Center [place]11-04-2024 Telephone encounter Note* Telephone Encounter - Sonia Lee CMA - 08/05/2024 12:41 PM EST Can you make sure it has an ICD code with it so they can bill medicare part B [facility]04-30-2024 History of Present illness Narrative* Rogers Wilson, HEALTHCARE ADMINISTRATION INTERNSHIP-SOLE SPLITTER - 01/30/2024 8:40 AM EDT Subjective Patient [...] nursing note reviewed. Exam conducted with a neckties painter present (nutrition aides teacher). Constitutional: Appearance: She is ill-appearing. HENT: Head: [...] Chronic obstructive pulmonary disease with acute exacerbation ([facility]) - X-ray chest 2 views; Future - albuterol (PROVENTIL,VENTOLIN) 2.5 mg /3 mL (0.083 %) nebulizer solution; Inhale 3 mL (2.5 mg total) by nebulization every 6 (six) hours as needed for wheezing. Chronic hypoxic respiratory failure ([facility]) Renal cell carcinoma of right kidney ([facility]) Other orders - amoxicillin-pot clavulanate (AUGMENTIN) 875-125 [...] KAVITA Watson 01/30/24 1210 documented in this encounterChildren's Hospital of ColumbusMoovweb [id number] Progress note Author Aries Chavez [facility] December 29, 2023 9:26amNote Date/TimeMarch 2023 8:50amMayhill [place] [address] Cancer Center Note Signed Patient: Perla Ibarra MR# : [id number] : 1955 Acct:[id number] Age/Sex: 68 / F Type: REG AMB Date of Service: 12/29/23 Copies to: DEIDRE Barrett~ Assessment & Plan A/P (1) Clear cell renal cell carcinoma: Plan Right renal Cancer, 27f0n31 cm with extension into right renal vein and inferiorvena cava.. 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 Has seen Dr. Mathew in [place] for consideration of nephrectomy. Determined not a [...] patient of Rogers Wilson nurse practitioner in [place]. Also follows with Dr. Cervantes and Dr. Quach of urology. She had a hospitalization in December 2022 and ultimately was life flighted to [facility] for a myocardial infarction and ischemic heart [...] medication 2 days ago. She presented to [facility] where she was hydrated and subsequently transferred to [facility]. --She specifically denies any anginal chest pain, but does note some dyspnea that started a few days after starting the axitinib. She notes that she was shaking all over but did not fall to the ground or lose consciousness therefore it was not felt to be a seizure. 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 -- At [facility] she was noted to have white [...] to inpatient stay.She was hospitalized at [facility] from 10/19/2023-10/25/2023 for headache, abdominal [...] Reasons: 6 wk f/u with scans at [facility], Clear cell renal cell carcinoma Accompanied by: [...] a 6 week follow up with [facility] labs and outside imaging for review. Has treatment today. [facility] Medical History Medical History Hyponatremia Chronic hypoxic respiratory failure 2 L Oxygen via [place] at all times. 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 Myocardial infarct COPD (chronic obstructive pulmonary disease) [...] by Aries Chavez II, DO> 12/29/23 0926 [facility] Work Phone: 1(570) 439-624003-26-2024 History of Present illness Narrative* Rogers Wilson, HEALTHCARE ADMINISTRATION INTERNSHIP-SOLE SPLITTER - 12/26/2023 3:00 PM EDT Subjective Patient [...] KAVITA Watson 12/26/23 1726 documented in this encounterSouthwestern Vermont Medical CenterZero2IPO12-12-2023 Progress note Author Rogers Moon [facility] September 12, 2023 4:38pmNote Date/TimeDece 2022 2:13pmMayhill [place] [address] Hem/Onc Follow Up Note - OP Signed Patient: Perla Ibarra MR# : [id number] : 1955 Acct:[id number] Age/Sex: 68 / F Type: REG RCR Copies to: DEIDRE Barrett SELF,REFERRAL Aries Chavez II, DO~ Date of Service: 09/12/2023 Time of Service: 14:12 - Assessment & Plan (1) Renal mass Plan: 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 Right renal mass, 02s2i34 cm with extension into right renal vein and inferior vena cava.. Has seen Dr. Mathew in [place] for consideration of nephrectomy. Determined not a [...] patient of Rogers Ronnie nurse practitioner in [place]. Also follows with Dr. Cervantes and Dr. Quach of urology. She had a hospitalization in December 2022 and ultimately was life flighted to [facility] for a myocardial infarction and ischemic heart [...] for coordination of care (as documented) and dikg-hi-tcxb counseling of patient and/or family. 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 - Family History Family History: Family History [...] <Electronically signed by CHAD Moon> 09/12/23 1638 [facility] Work Phone: 1(356) 483-776312-05-2023 Progress note Author Aries Chavez [facility] September 05, 2023 11:33amNote Date/TimeNovember 2022 1:16pmMayhill Hospital [facility] at [address] [address] Hem/Onc Follow Up Note - OP Signed Patient: Perla Ibarra MR# : [id number] : 1955 Acct:[id number] Age/Sex: 68 / F Type: REG RCR Copies to: Rogers Danelle Wilson, SOLE SPLITTER SELF,REFERRAL ~ Date of Service: 08/28/2023 Time of Service: 13:15 - Assessment & Plan (1) Renal mass Plan: 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 Right renal mass, 15*9*12 cm with extension into right renal vein and inferior vena cava.. Has seen Dr. Mathew in [place] for consideration of nephrectomy. Determined not a [...] patient of Rogers Trujillo nurse practitioner in [place]. Also follows with Dr. Cervantes and Dr. Quach of urology. She had a hospitalization in December 2022 and ultimately was life flighted to [facility] for a myocardial infarction and ischemic heart [...] for coordination of care (as documented) and qyjf-cd-mxqq counseling of patient and/or family. 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 - Family History Family History: Family History [...] by Aries Chavez II, DO> 09/05/23 1133 [facility] Work Phone: 1(991) 344-852010-30-2023 Progress note Author Aries Chavez [facility] July 31, 2023 2:29pmNote Date/TimeOct2022 1:59pmMayhill [place] [address] Hem/Onc Follow Up Note - OP Signed Patient: Perla Ibarra MR# : [id number] : 1955 Acct:[id number] Age/Sex: 67 / F Type: REG RCR Copies to: DEIDRE Barrett SELF,REFERRAL ~ Date of Service: 07/31/2023 Time of Service: 13:59 - Assessment & Plan (1) Renal mass Plan: Right renal mass, 15*9*12 cm with extension into right renal vein and inferior vena cava.. Likely a neoplasm. Has seen Dr. Mathew in [place] for consideration of nephrectomy. No definitive retroperitoneal [...] get images uploaded to our system from [employer]. iv iron soon. cbc, cmp, iron studies [...] patient of Rogers Trujillo nurse practitioner in [place]. Also follows with Dr. Cervantes and Dr. Quach of urology. She had a hospitalization in December 2022 and ultimately was life flighted to [facility] for a myocardial infarction and ischemic heart [...] for coordination of care (as documented) and gbai-ey-ptqd counseling of patient and/or family. 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 Mathew who is now with [facility]. No definitive retroperitoneal lymphadenopathy. Extensive reticulonodular opacities [...] ct images to here from [facility]. refer to [facility] at [facility]. f/u with me in a month (after imaging). get an CT a/p with contrast in a month at [facility]. cbc, cmp, iron studies b12, foalte, epo, [...] patient of Rogers Trujillo nurse practitioner in [place]. Also follows with Dr. Cervantes and Dr. Quach of urology. She had a hospitalization in December 2022 and ultimately was life flighted to [facility] for a myocardial infarction and ischemic heart [...] for coordination of care (as documented) and xsrx-qd-derw counseling of patient and/or family. 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 - Family History Family History: Family History [...] [facility] Work Phone: 1(320) 344-258304-26-2023 NotePROCEDURE: XR CHEST 1 V DATE: 01/25/2023 [...] Electronically authenticated by: ANTONY VELASQUEZ Date: 2023-01-25 15:11[facility]10-31-2019 Progress note Author Aries Chavez [facility]Note Date/TimeApril 2024 2:20pmMayhill [place] [address] Cancer Center Note Signed Patient: Perla Ibarra MR# : [id number] : 1955 Acct:[id number] Age/Sex: 69 / F Type: REG AMB [...] Present Illness HPI ASSESSMENT/PLAN Right renal Cancer, 62q5o71 cm with extension into right renal vein and inferiorvena cava.. 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 Has seen Dr. Mathew in [place] for consideration of nephrectomy. Determined not a [...] 2022 and ultimately was life flighted to [facility] for a myocardial infarction and ischemic heart [...] medication 2 days ago. She presented to [facility] where she was hydrated and subsequently transferred to [facility]. 10/26/2023: Perla is here for interval follow up/follow up to inpatient stay.She was hospitalized at [facility] from 10/19/2023-10/25/2023 for headache, abdominal [...] cough. reviewed ct scans from [facility] that her renal mass is now down [...] stability of renal cell. reviewed imaging from [place] from 10/26/24 n R complex renal mass 4.2 x 3.9 x 5.9 cm This is unchanged. No new metastatic disease. no adenopathy. 01/27/[address] c/a/p shows roughly stable ct imaging with peristent renal mass. cont on 2 l oxygen. some edema in legs. 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 fatigue is profound. Intake Vitals/Pain Assessment 01/27/25 [...] also reports edema in bilateral lower extremities. [facility] Medical History Medical History Hyponatremia Chronic hypoxic respiratory failure 2 L Oxygen via [place] at all times. 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 Myocardial infarct COPD (chronic obstructive pulmonary disease) [...] by Aries Chavez II, DO> 01/27/25 1420 [facility] Work Phone: Evaluation noteNo assessment information available [facility] Work Phone: evaluation note* Diagnosis Onset Date Resolution Status Renal mass acute [facility] Work Phone: Evaluation note* Diagnosis Onset Date Resolution Status Clear cell renal cell carcinoma acuteEncounter for antineoplastic chemotherapyacuteHyponatremiaacuteIron deficiency anemiaacute [facility] Work Phone: evaluation note* Diagnosis Onset [...] acuteIntractable nausea and vomitingacuteIron deficiency anemiaacuteNonischemic cardiomyopathyacute [facility] Work Phone: Evaluation note* Diagnosis Onset [...] carcinomaacuteEncounter for antineoplastic chemotherapyacute HyponatremiaacuteIron deficiency anemiaacute [facility] Work Phone: Evaluation note* Diagnosis Onset [...] cell carcinomaacuteEncounter for antineoplastic chemotherapyacuteIron deficiency anemiaacuteHyponatremiaresolved [facility] Work Phone: Evaluation note* Diagnosis Onset [...] renal cell carcinomaacuteEncounter for antineoplastic chemotherapyacuteIron deficiency anemiaacuteHyponatremiaUniversity Hospitals Health System Work Phone: Evaluation note* Diagnosis Onset Date Resolution Status Clear cell renal cell carcinoma acuteEncounter for antineoplastic chemotherapyacuteIron deficiency anemiaacute Hyponatremiaresolved [facility] Work Phone: Evaluation note* Diagnosis Onset Date Resolution Status Clear cell renal cell carcinoma acuteEncounter for antineoplastic chemotherapyacuteIron deficiency anemiaacute HyponatremiaresolvedContact with and (suspected) exposure to covid-19noneactive [facility] Work Phone: Evaluation note* Diagnosis Onset Date Resolution Status COVID-19 noneactiveContact with and (suspected) exposure to covid-19noneactiveClear cell renal cell carcinomaacuteEncounter for antineoplastic chemotherapyacuteIron deficiency anemiaacuteHyponatremiaresSalem [facility] Work Phone: Evaluation note* Diagnosis Onset Date Resolution Status Admit Date Clear cell renal cell carcinoma acuteJanuary 2024 12:56pmEncounter for antineoplastic chemotherapyacute Abigail 2024 12:56pmIron deficiency anemiaacuteJanuary 2024 12:56pm HyponatremiaresolvedJanuary 2024 12:56pmRenal massdeletedJanuary 2024 12:56pm [facility] Work Phone: Evaluation note* Diagnosis Chronic obstructive pulmonary disease with acute exacerbation (CMS-HCC)- Primary Chronic hypoxic respiratory failure (CMS-HCC) Renal cell carcinoma of right kidney (CMS-HCC) documented in this encounter [facility]* Diagnosis Anxiety Anxiety state, unspecified documented in this encounter [facility]* Diagnosis Acute recurrent frontal sinusitis- Primary Nausea and vomiting, unspecified vomiting type documented [facility] encounter [facility]* Diagnosis Chronic obstructive pulmonary disease with acute exacerbation ([facility]-HCC) [facility] Diagnosis Onset Date Resolution Status Admit Date Clear cell renal cell carcinoma acuteFebruary 2024 2:20pmEncounter for antineoplastic chemotherapyacute February 2024 2:20pmIron deficiency anemiaacuteFebruary 2024 2:20pm HyponatremiaresolvedFebruary 2024 2:20pmRenal massdeletedFebruary 2024 2:20pm [facility] Work Phone: Evaluation note* Diagnosis Arthritis, multiple joint involvement- Primary Unspecified arthropathy, multiple sites Renal cell carcinoma of right kidney ([facility]-HCC) Panlobular emphysema ([facility]-HCC) Other emphysema Benign hypertensive heart disease with heart failure ([facility]-HCC) Obesity, morbid ([facility]) Morbid obesity [facility] Diagnosis Onset Date Resolution Status Admit Date Clear cell renal cell carcinoma acuteApril 2024 2:03pmEncounter for antineoplastic chemotherapyacuteApril 2024 2:03pmIron deficiency anemiaacuteApril 2024 2:03pmHyponatremia resolvedApril 2024 2:03pmRenal massdeletedApril 2024 2:03pm [facility] Work Phone: Evaluation note* Diagnosis Left leg cellulitis- Primary documented in this encounter [facility] Discharge instructions Additional Instructions Continue home oxygen as directed.[facility] Work Phone: InstructionsNot on filedocumented in this encounter [facility]InstructionsNot on filedocumented in this encounter [facility] SystemInstructionsNot on filedocumented in this encounter [facility]InstructionsNot on filedocumented in this encounter [facility] SystemInstructionsNot on filedocumented in this encounter [facility]* Attachments The following attachments cannot be sent through Care Everywhere. * Cellulitis (Skin Infection)? Adult ED ([place]) [facility] in [facility] SystemProgress note Author Aries Chavez [facility] July 31, 2023 2:29pmNote Date/TimeOct2022 1:59pmMayhill [facility] at [address] [address] Hem/Onc Follow Up Note - OP Signed Patient: Perla Ibarra MR# : [id number] : 1955 Acct:[id number] Age/Sex: 67 / F Type: REG RCR Copies to: Rogers Wilson, DEIDRE SELF,REFERRAL ~ Date of Service: 07/31/2023 Time of Service: 13:59 - Assessment & Plan (1) Renal mass Plan: Right renal mass, 15*9*12 cm with extension into right renal vein and inferior vena cava.. Likely a neoplasm. Has seen Dr. Mathew in [place] for consideration of nephrectomy. No definitive retroperitoneal [...] start here, if not salazar is reasonable, [place]. f/u after. check ua and culture. offer her bactrim DS one tab bid x 10 days. get images uploaded to our system from [employer]. iv iron soon. cbc, cmp, iron studies [...] patient of Rogers Trujillo nurse practitioner in [place]. Also follows with Dr. Cervantes and Dr. Quach of urology. She had a hospitalization in December 2022 and ultimately was life flighted to [facility] for a myocardial infarction and ischemic heart [...] for coordination of care (as documented) and rxzq-tf-kvfo counseling of patient and/or family. 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 Also follows with Dr. Cervantes and Dr. Qauch of urology. She had a hospitalization in December 2022 and ultimately was life flighted to [facility] for a myocardial infarction and ischemic heart [...] point review of systems is negative. 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 Right renal mass, 82b6p25 cm with extension into right renal vein and inferior vena cava.. Has seen Dr. Mathew in [place] for consideration of nephrectomy. Determined not a [...] for coordination of care (as documented) and cvej-sd-frxt counseling of patient and/or family. Dictated By: Vannessa Perales APRN DD/ [id number] Signed By: <Electronically signed by CHAD Perales> 10/05/23 1404 [facility] Work Phone: Progress note Author Aries Chavez [facility] March 29, 2024 10:13amNote Date/TimeJune 2023 9:43[facility] [place] [address] Cancer Center Note Signed Patient: Perla Ibarra MR# : [id number] : 1955 Acct:[id number] Age/Sex: 68 / F Type: REG AMB [...] Present Illness HPI Assessment/Plan. Right renal Cancer, 62w4w64 cm with extension into right renal vein and inferiorvena cava.. 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 Has seen Dr. Mathew in [place] for consideration of nephrectomy. Determined not a [...] and Xanax as needed. Primary patient of oRgers Wilson nurse practitioner in [place]. Also follows with Dr. Cervantes and Dr. Quach of urology. She had a hospitalization in December 2022 and ultimately was life flighted to [facility] for a myocardial infarction and ischemic heart [...] medication 2 days ago. She presented to [facility] where she was hydrated and subsequently transferred to [facility]. --She specifically denies any anginal chest pain, but does note some dyspnea that started a few days after starting the axitinib. She notes that she was shaking all over but did not fall to the ground or lose consciousness therefore it was not felt to be a seizure. 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 -- At [facility] she was noted to have white [...] to inpatient stay.She was hospitalized at [facility] from 10/19/2023-10/25/2023 for headache, abdominal [...] with labs and imaging for review. [facility] Medical History Medical History Hyponatremia Chronic hypoxic respiratory failure 2 L Oxygen via [place] at all times. 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 Myocardial infarct COPD (chronic obstructive pulmonary disease) [...] by Aries Chavez II, DO> 03/29/24 1013 [facility] Work Phone: Summary Purpose Family History [...] Documentation 6 wk f/u with scans at [facility] Renal Mass N28.89Reason for VisitCancer related pain [...] section and content) DATE CREATED AUTHOR 02/10/2023 [facility] DATE CREATED AUTHOR AUTHOR'S ORGANIZ ATION 03/13/2023 [facility] DATE CREATED AUTHOR AUTHOR'S ORGANIZ ATION 01/28/2025 [facility] DATE CREATED AUTHOR AUTHOR'S ORGANIZ ATION 03/28/2025 [facility] DATE CREATED AUTHOR AUTHOR'S ORGANIZ ATION 07/15/2025 [facility] Care Teams (unrecognized sec tion and [...] Provider Active Start: March 29, 2024 [facility] Care ProviderActiveStart: March 29, 2024 Referral SelfReferring ProviderActiveStart: March 29, 2024 Team Status: Active Member Role Status Dates [facility] Primary Care Provider Active S tart: [...] Active Member Role Status Dates Rogers Wilson [facility] Primary Care Provider Active S tart: October 20, 2023 Marisel Abdalla MDAttending ProviderActiveStart: October 20, 2023 Team Status: Inactive Member Role Status Dates Rogers Wilson [facility] Primary Care Provider Active S tart: October 26, 2023 End: October 26, 2023Vannessa Aneesh Angella , APRNAttending ProviderActive Start: October 26, 2023 End: October 26, 2023 Team Status: Inactive Member Role Status Dates Rogers Wilson , SOLE SPLITTER Primary Care Provider Active S tart: November 17, 2023 End: November 17, 2023Aries Chavez II, DOAttending ProviderActiveStart: November 17, 2023 End: November 17, 2023 Team Status: Inactive Member Role Status Dates Rogers Wilson , SOLE SPLITTER Primary Care Provider Active S tart: December [...] Member Role Status Dates Rogers Wilson , SOLE SPLITTER Primary Care Provider Active S tart: August [...] Inactive Member Role Status Dates Rogers Wilson SOLE SPLITTER Primary Care Provider Active Aries Chavez II, [...] Inactive Member Role Status Latrell Wilson , SOLE SPLITTER Primary Care Provider Active S tart: May [...] Status: Inactive Member Role Status Latrell Wilson SOLE SPLITTER Primary Care Provider Active S tart: June 04, 2024 End: June 04mbvalerie James APRNAtluciano ProviderActiveStart: June 04, 2024 End: June 04, 2024 Team Status: Inactive Member Role Status Latrell Wilson , SOLE SPLITTER Primary Care Provider Active S tart: June [...] Inactive Member Role Status Latrell Wilson , SOLE SPLITTER Primary Care Provider Active S tart: October 01, 2024 End: October 01, 2024Rogers Moon APRNAttenellie ProviderActive Start: October 01, 2024 End: October 01, 2024 Team Status: Inactive Member Role Status Dates Rogers Wilson SOLE SPLITTER Primary Care Provider Active S tart: October 28, 2024 End: October 28, 2024Aries Chavez II, DOAttending ProviderActiveStart: October 28, 2024 End: October 28, 2024 Team Status: Active Member Role Status Dates Aries Chavez II, DO Attending Provider Active Start: October 28, 2024 Rogers Wilson TIMOTHYrimary Care ProviderActiveStart: October 28, 2024 Referral SelfReferring ProviderActiveStart: October 28, 2024 Team MemberRelationshipSpecialtyStart DateEnd Date Rogers Wilson, HEALTHCARE ADMINISTRATION INTERNSHIP-SOLE SPLITTER [address] [place] [address] PCP - GeneralInternal Medicine02/09/23Team MemberRelationshipSpecialtyStart Date End Date Rogers Wilson, HEALTHC[employer]MINISTRATION INTERNSHIP-SOLE SPLITTER [address] [place] [address] PCP - GeneralInternal Medicine02/09/23Team MemberRelationshipSpecialtyStart Date End Date Rogers Wilson, HEALTHCARE ADMINISTRATION INTERNSHIP-SOLE SPLITTER [address] [facility] [place] [address] PCP - GeneralInternal Medicine02/09/23Team MemberRelationshipSpecialtyStart Date End Date Toro Baron APRN-LOAD HAUL DUMP OPERATOR [address] [place] [address] PCP - Generalmily Medicine03/29/24Team MemberRelationshipSpecialtyStart DateEnd Date Toro Baron HEALTHC[employer]MINISTR[employer]NSHIP-LOAD HAUL DUMP OPERATOR [address] [place] [address] [facility]03/29/24 Team Status: Inactive Member Role Status Dates [...] 2024 Team MemberRelationshipSpecialtyStart DateEnd Date Toro Baron APRN-LOAD HAUL DUMP OPERATOR [address] [place] [address] [facility]03/29/24 Team Status: Inactive Member Role Status [...] 2025 Team MemberRelationshipSpecialtyStart DateEnd Date Toro Baron [employer]ALTHCARE ADMINISTRATION [employer]NSHIP-LOAD HAUL DUMP OPERATOR [address] [place] [address] [facility]03/29/24 Goals (unrecognized section and content) Goals [...] in rib cage.ReasonCommentsMed RefillReasonCommentsNasal CongestionNo covidReasonOnset DateCommentsMed [id number] Date CommentsMed [id number]-upReasonCommentsER f/u Brittney FOR RECORDS PERTAINING TO PATIENTS [...] BE BASED ON THE PRIMARY CLINICAL RECORDS. [employer] [facility]. provides no warranty or guarantee of the accuracy or completeness of information in this document.
--- NOTE | 2025-07-23 09:00 | CA_ITS ---
Patient Name: PRACHI WARD MR#: [id number] : 1955 Exam Date: 07/23/2025 Ordering Doctor: SELENA HONG ECHOCARDIOGRAM REPORT PROCEDURE: CA ECHO DOPPLER COMPLETE INDICATIONS: Heart failure with improved ejection fraction, h/o kidney cancer- chemotherapy COMPARISON: None. DESCRIPTION: COMPLETE ECHOCARDIOGRAM Real-time transthoracic echocardiography with 2D, M-mode, spectral and color flow Doppler performed. QUALITY: Technical quality was adequate. LEFT VENTRICLE: Normal chamber size. Mild concentric left ventricular hypertrophy. LV EF: Global left ventricular systolic function is difficult to assess but appears preserved; visually estimated ejection fraction is 55%. Unable to assess regional wall motion abnormalities. DIASTOLIC: Normal diastolic function. ATRIAL SEPTUM: Inadequately seen. LEFT ATRIUM: Normal chamber size. RIGHT ATRIUM: Normal chamber size. RIGHT VENTRICLE: Normal chamber size. Normal right ventricular systolic function. TRICUSPID VALVE: Normal mobility and thickness. No stenosis with trivial regurgitation. Unable to assess right-sided pressure due to the lack of measurable tricuspid regurgitation. MITRAL VALVE: Normal mobility and thickness. No evidence of mitral valve stenosis. Mild mitral annular calcification. No mitral regurgitation. AORTIC VALVE: Normal trileaflet appearance. Mildly calcified aortic valve. Normal leaflet mobility. No evidence of aortic valve stenosis. No aortic regurgitation. AORTIC ROOT: Normal diameter and appearance. PULMONIC VALVE: Normal thickness and mobility. No stenosis. No regurgitation. PERICARDIUM: No evidence of pericardial effusion. IVC: Not well visualized. CONCLUSION: 1. Global left ventricular systolic function is difficult to assess but appears preserved; visually estimated ejection fraction is 55% 2. Normal right ventricular size and systolic function 3. Mild left ventricular hypertrophy 4. Normal diastolic function 5. The left atrium is normal in size 6. Unable to assess right-sided pressures due to lack of measurable tricuspid regurgitation 7. Valvular structures are poorly seen; no significant valvular abnormalities Adult Echocardiography Procedure Report Left Ventricle LVEDD (3.7 - 5.6 cm): 3.70 cm LVESD (2.2 - 4.0 cm): 2.93 cm LVIVS thickness (0.6 - 1.2 cm): 1.21 cm LVPW thickness (0.5 - 1.0 cm): 1.15 cm e': 0.11 m/s E - e': 5.79 LVOT Max Gradient: 2.56 mm[Hg] LVOT Area (cm2): 0.80 m/s Peak Velocity (LVOT): 0.80 m/s Mean Velocity (LVOT): 0.52 m/s LVOT Diameter 2.15 cm Left Atrium LA Volume Index (2D A2C): 26.41 ml/m2 Left Atrium Systolic Dimension: 3.22 cm Mitral Valve MV E to A Ratio: 0.62 Mitral Valve A-Wave Peak Velocity: 1.00 m/s Mitral Valve E-Wave Peak Velocity: 0.62 m/s Right Ventricle Aorta AO Root Diam: 3.41 cm Aortic Valve AoV Area (Peak Justo): 2.29 cm2, 2.29 cm2 AoV Area (VTI): 2.63 cm2, 2.63 cm2 Peak Velocity(Antegrade Flow): 1.27 m/s Peak Gradient(Antegrade Flow): 6.41 mm[Hg] Mean Velocity(Antegrade Flow): 0.80 m/s Mean Gradient(Antegrade Flow): 3.13 mm[Hg] Velocity Time Integral: 27.25 cm Tricuspid Valve Pulmonic Valve Mean Gradient: 1.59 mm[Hg], 1.88 mm[Hg] Mean Velocity: 0.57 m/s, 0.63 m/s Peak Gradient: 3.86 mm[Hg], 4.33 mm[Hg] Right Atrium Right Atrium Systolic Pressure: 31.70 ml, 31.70 ml Dictated by: Robbi Henderson M.D. on 07/23/2025 at 16:30 Approved by: Robbi Henderson M.D. on 07/23/2025 at 16:34
== END 2025-07-23 06:56 | disposition home or self-care (01) ==
LOC: CARD 06:55
PROVIDERS: PCP Nurse Practitioner
DX: I50.20 Unspecified systolic (congestive) heart failure (principal)
CPT/HCPCS: 93306